=== PATIENT | female | born 1955 | race Caucasian/White ===

== ENCOUNTER 2017-01-04 14:35 | Inpatient (IN) | payer MEDICAID, OTHER ==
[~2017-01-04] VITALS: Ht 160 cm; Wt 78.9 kg
[2017-01-04] VITALS (13 sets, daily range): BP systolic 96–120; BP diastolic 75–86; PULSE 137–151; RESP 39–54; TEMP 100; Ht 160 cm; Wt 78.9 kg
[~2017-01-04 14:35] MED LIST: CLON-429; LAMO200T18; LEVE-5; PHEN100C; TOPI200T8
[2017-01-04] MEDS ORDERED: CEFEPIME 2GM/50 ML (PMX) 50 ML IVPB STA (14:42)
[2017-01-04] MEDS ORDERED: SOD CHLORIDE 0.9% 1,000 ML IV STA ×3 (14:42)
[2017-01-04] MEDS ORDERED: VANCOMYCIN 1 GM (PMX) 250 ML IVPB ONE (15:00)
[2017-01-04 15:15] LABS: ADD SCAN DIFF NO
[2017-01-04 15:33] LABS: INR 1.34; PROTIME 16.7 Sec (12.2-14.2); PT RATIO 1.3
[2017-01-04 15:34] LABS: ALBUMIN 4.1 g/dl (3.3-4.9); ALBUMIN/GLOBULIN RATIO 1.36; BILIRUBIN,INDIRECT 0.2 mg/dl (0-1.1); BILIRUBIN,TOTAL 0.2 mg/dl (0.2-1.3); TOTAL PROTEIN 7.1 g/dl (6.1-8.1)
[2017-01-04 15:40] LABS: ADD UMIC YES; UR ASCORBIC ACID NEGATIVE (NEGATIVE); UR BACTERIA MODERATE /HPF (NONE SEEN); UR BILIRUBIN (Dip) NEGATIVE (NEGATIVE); UR BLOOD (Dip) 1+ mg/dL (NEGATIVE); UR CLARITY CLOUDY (CLEAR); UR COLOR AMBER (YELLOW); UR GLUCOSE (Dip) NEGATIVE (NEGATIVE); UR KETONES (Dip) NEGATIVE (NEGATIVE); UR LEUKOCYTE ESTERASE (Dip) 1+ Leu/ul (NEGATIVE); UR MUCUS FEW /HPF (NONE SEEN); UR NITRITE (Dip) NEGATIVE (NEGATIVE); UR RBC 1 /HPF (0-5); UR SPECIFIC GRAVITY (Dip) 1.016 (1.003-1.030); UR SQUAMOUS EPITHELIAL CELL MANY /HPF (FEW); UR TOTAL PROTEIN (Dip) 2+ mg/dl (NEGATIVE); UR UROBILINOGEN (Dip) 1+ mg/dL (NEGATIVE)
[2017-01-04 15:53] LABS: CALCIUM 6.9 mg/dl (8.4-10.2); CREATININE 1.85 mg/dl (0.44-1.00); POTASSIUM 3.2 mmol/L (3.5-5.1)
[2017-01-04 15:54] LABS: TROPONIN-I 0.017 ng/ml (0.00-0.12)
[2017-01-04] MEDS ORDERED: PHEN64.8 PO (15:56)
[2017-01-04] MEDS ORDERED: LEVE10006 PO (15:57)
[2017-01-04] MEDS ORDERED: TOPI200C PO (15:57)
[2017-01-04] MEDS ORDERED: PHEN125O2 PO (15:58)
[2017-01-04] MEDS ORDERED: AMO500 PO (15:58)
[2017-01-04] MEDS ORDERED: CLON0.5T4 PO (15:58)
[2017-01-04] MEDS ORDERED: ACETAMINOPHEN 650 MG SUPP PR ONE (16:00)
[2017-01-04] MEDS ORDERED: NORepinephrine 8MG/250 ML (PMX 250 ML IV SCH (16:00)
--- NOTE | 2017-01-04 16:27 | RADRPT ---
PROCEDURE: XR Chest. CLINICAL INDICATION: chest pain TECHNIQUE: Single frontal view of the chest was obtained COMPARISON: 01/13/09 FINDINGS: The heart and mediastinum are within normal limits. There is a generator overlying the left chest with its wire extending towards the left neck. The lungs are clear. There is no pleural effusion or pneumothorax. RPTAT: AA IMPRESSION: No acute disease. .Robles Piedra MD, MD Date Time Electronically viewed and signed by .Robles Piedra MD, on 01/04/2017 16:27 .S/
[2017-01-04 16:28] LABS: HEMATOCRIT 41.8 % (37.0-47.0); HEMOGLOBIN 13.4 g/dl (12.0-16.0); MEAN CORPUSCULAR HEMOGLOBIN 30.4 pg (29.0-33.0); MEAN CORPUSCULAR HGB CONC 32.1 g/dl (32.0-37.0); MEAN CORPUSCULAR VOLUME 94.8 fl (82.0-101.0); MEAN PLATELET VOLUME 9.4 fl (7.4-10.4); PLATELET COUNT 484 10^3/UL (140-415); RED BLOOD COUNT 4.41 10^6/ul (4.20-5.40); RED CELL DISTRIBUTION WIDTH 14.8 % (11.5-14.5)
--- NOTE | 2017-01-04 17:52 | RADRPT ---
PROCEDURE: CT Brain without. CLINICAL INDICATION: Altered mental status TECHNIQUE: A CT of the brain was performed on a multi-slice CT scanner utilizing axial sections fr om the skull base through the vertex without contrast. Coronal and sagittal reconstructed images w ere provided. One or more of the following does reduction techniques were used: Automated exposure control; adjustment of the mA and/or kV according to patient size; use of the aorta of reconstructi on technique. Images were reviewed on a high-resolution PACS workstation. The exam CTDI = 42.69 mGy . The exam DLP = 720.23 mGy-cm. COMPARISON: CT brain 01/11/2009 FINDINGS: There is mild global volume loss. The ventricles and sulci are symmetric in size and morphology. T here is no evidence of intracranial hemorrhage, mass effect, edema or midline shift. No abnormal in tra-axial or extra-axial fluid collections are seen. The aiken/white matter differentiation is well preserved. The osseous structures and visualized sinuses are unremarkable. The mastoid air cells are clear. Th e surrounding soft tissue scalp and bony calvarium are intact and normal. IMPRESSION: 1. No CT evidence of acute intracranial pathology. 2. Mild global volume loss. RPTAT: AA .Jone Castillo MD, MD Date Time Electronically viewed and signed by .Jone Castillo MD, MD on 01/04/2017 17:51 .B/
--- NOTE | 2017-01-04 18:00 | RADRPT ---
PROCEDURE: CT Abdomen and Pelvis without contrast. CLINICAL INDICATION: Abdominal pain TECHNIQUE: CT scan of the abdomen and pelvis without contrast was performed on a multi-slice CT [facility] without intravenous contrast. Coronal and sagittal reformatted images were obtained from the axial source images. Images were reviewed on a high-resolution PACS workstation. One or more of the following does reduction techniques were used: Automated exposure control; adjustment of the mA an d/or kV according to patient size; use of the aorta of reconstruction technique. The total exam CTD I equals 17.4 mGy and the total exam DLP equals 977.79 mGy-cm. COMPARISON: None available. FINDINGS: Breathing artifact limits evaluation of the lung bases. There are trace right and small left pleura l effusions with adjacent atelectasis. Heart size is normal, and there is no evidence of pericardia l thickening or effusion. There is moderate intrahepatic ductal dilatation and marked extrahepatic ductal dilatation. The com mon bile duct measures up to 2.1 cm in diameter. Evaluation at the level of the insertion of the du ct is limited by artifact. No radiopaque stone is identified. The pancreas is prominent as there i s moderate peripancreatic edema extending into the left flank or there is fluid tracking in the left pericolic gutter. There is a small amount of perihepatic free fluid.. The gallbladder is contract ed and collapsed. The adrenal glands are normal. The kidneys without renal calculus or hydronephrosis. The aorta is of normal caliber. Atherosclerotic calcifications are present. There is no retroperito grant lymph node enlargment. There is no evidence of large or small bowel obstruction there are mildly dilated segments of small bowel in the left upper quadrant most likely represent focal ileus related to adjacent pancreatitis. There is mild free fluid throughout the abdomen pelvis. Inflammatory changes appear to be center ed around the pancreas, however due to and inferiorly, though are most consistent with pancreatitis. A normal appendix is identified The uterus is present. No enlarged pelvic sidewall lymph nodes are seen. The bladder is decompresse d and contains a Matias catheter. There is mild pelvic free fluid. The inguinal regions are unremar kable. There are mild to moderate degenerative change of the spine.. IMPRESSION: 1. Prominent pancreas with marked peripancreatic inflammatory changes and associated free fluid tra cking into the left pericolic gutter into the pelvis. Findings are most consistent with acute pancr eatitis, and correlation with laboratory values is recommended. A duodenitis could also potentially have this appearance, but is felt to be far less likely. 2. Moderate intrahepatic ductal dilatation and marked extrahepatic ductal dilatation to the level o f the distal common bile duct. No radiopaque gallstone is identified. Recommend MRCP versus ERCP a s clinically indicated. 3. Trace right and small left pleural effusions with adjacent atelectasis. 4. Mild focally dilated segment of small bowel in the left upper quadrant is most consistent with v brielle focal ileus related to adjacent pancreatitis. 5. Atherosclerotic vascular disease. RPTAT: AA .Jone Castillo MD, MD Date Time Electronically viewed and signed by .Jone Castillo MD, on 01/04/2017 18:00 .B/
[2017-01-04] MEDS ORDERED: SOD CHLORIDE 0.9% 1,000 ML IV SCH (19:06)
[2017-01-04 19:07] LABS: AADO2 Arterial 386.9 mmHg (7.0-24.0); Allen Test ACCEPTAB; Arterial Base Excess -15.2 mmol/L (-3.0-3); Arterial COHb 0.2 % (0.0-3.0); Arterial Fraction of Oxyhgb 98.9 % (93.0-99.0); Arterial HCO3 9.9 mmol/L (22.0-26.0); Arterial MetHb 0.4 % (0.0-1.5); Arterial Total Hemglobin 15.6 g/dl (12.0-18.0); MODE MASK - NRB
--- NOTE | 2017-01-04 19:17 | ERA ---
ER Documentation Chief Complaint Date/Time DATE: 01/04/17 TIME: 19:16 Chief Complaint PT BIB RA for Altered X 1 day. HPI 61-year-old female with history only positive for epilepsy is brought in for altered mental status. Is able to answer only some questions. She arrived in the emergency room hypotensive, tachycardic, tachypneic. She was immediately placed on BiPAP and was able to say that she has pain in her abdomen. Otherwise she is very confused and not able to provide much of a history ROS Unobtainable. Medications Home Meds Reported Medications Clonazepam* (Clonazepam*) 0.5 Mg Tablet, 0.5 MG PO Q8H for ANXIETY, TAB 01/04/17 Phenytoin* (Phenytoin*) 125 Mg/5 Ml Oral.susp, 100 MG PO TID for 30 Days, BOTTLE 01/04/17 Amoxicillin* (Amoxicillin*) 500 Mg Cap, 500 MG PO Q8, #30 CAP 01/04/17 Levetiracetam* (Levetiracetam*) 1,000 Mg Tablet, 1000 MG PO BID, TAB 01/04/17 Topiramate* (Trokendi XR*) 200 Mg Cap.er.24h, 200 MG PO BID, CAP 01/04/17 Phenobarbital* (Phenobarbital*) 64.8 Mg Tablet, 64.8 MG PO BID, TAB 01/04/17 Discontinued Reported Medications Clonazepam* (Klonopin*) 0.5 Mg Tab 05/07/10 Phenytoin* Sodium Extended (Dilantin*) 100 Mg Capsule 05/07/10 Topiramate (Topamax) 200 Mg Tablet 05/07/10 Levetiracetam* (Keppra*) 500 Mg Tablet 05/07/10 Lamotrigine* (Lamictal*) 200 Mg Tablet 05/07/10 Allergies Allergies: Coded Allergies: No Known Allergy (Verified , 01/04/17) PMhx/Soc Anesthesia Reaction: No Hx Neurological Disorder: No (HX OF SEIZURES) Hx Respiratory Disorders: No Hx Psychiatric Problems: No Hx Miscellaneous Medical Probl: No Hx Alcohol Use: No Hx Substance Use: No Hx Tobacco Use: No Smoking Status: Never smoker Physical Exam Vitals Vital Signs Date Time Temp Pulse Resp B/P Pulse Ox O2 Delivery O2 Flow Rate FiO2 01/04/17 19:47 100.0 142 16 98/73 100 Nasal Cannula 4.0 01/04/17 19:30 140 16 94/75 100 Nasal Cannula 4.0 01/04/17 18:58 139 16 98/62 99 Non Rebreather 10.0 01/04/17 18:29 131 16 108/79 100 Non Rebreather 15.0 01/04/17 17:45 136 24 99/75 100 Room Air 01/04/17 17:30 135 30 95/59 100 Room Air 01/04/17 17:15 139 23 88/64 100 Room Air 01/04/17 17:05 112 100 01/04/17 17:00 137 29 82/63 100 Room Air 01/04/17 16:30 132 31 104/62 100 Room Air 01/04/17 16:13 132 28 119/73 100 BIPAP 01/04/17 15:53 139 33 98/63 BIPAP 01/04/17 15:44 102.1 144 40 83/52 BIPAP 01/04/17 15:26 151 01/04/17 15:14 150 100 01/04/17 14:40 98.7 150 34 62/40 01/04/17 14:35 Non Rebreather 15 Physical Exam Const: [] Severe distress, appears very uncomfortable, tachypneic, difficulty forming words Head: Atraumatic Eyes: Normal Conjunctiva, EOMI, PRL ENT: Normal External Ears, Nose and Mouth. Neck: Full range of motion..~ No meningismus. Resp: Clear to auscultation bilaterally, tachypnea, accessory muscle use Cardio: Regular tachycardia, no murmurs Abd: Soft, some apparent epigastric tenderness without guarding, non distended. Normal bowel sounds Skin: No petechiae or rashes Back: No midline or flank tenderness Ext: No cyanosis, or edema Neur: Awake and alert and oriented, unable to assess for orientation questions as patient is in respiratory distress, unable to perform full neurological exam the patient is definitely moving all 4 extremities with purposeful movements Psych: Anxious Result Diagram: 01/04/17 1600 01/04/17 1600 Results 24 hrs Laboratory Tests Test 01/04/17 14:42 01/04/17 14:50 01/04/17 15:00 01/04/17 15:15 Blood Gas Specimen Source Blood arterial Arterial Blood Date Drawn 01/04/2017 7:00:27 PM Arterial Blood pH (Temp corrected) 7.248 Arterial Blood pCO2 (Temp correct) 23.3mmhg Arterial Blood pO2 (Temp corrected) 302.8mmHG Arterial Blood HCO3 9.9mmol/L Arterial Blood Base Excess -15.2mmol/L Arterial Blood Oxygen Saturation 99.5mmHG Rashad Test ACCEPTAB Arterial Blood Gas Puncture Site Right Radial Arterial Blood Carboxyhemoglobin 0.2% Arterial Blood Methemoglobin 0.4% Blood Gas A-a O2 Differential 386.9mmHg Oxyhemoglobin Percent 98.9% Total Hemoglobin 15.6g/dl Blood Gas Temperature 37.0C Blood Gas Modality MASK - NRB FiO2 100.0% Blood Gas Critical Value Read Back Jens MCCRAY MD Blood Gas Notified Whom AMINA Blood Gas Notified Time 01/04/2017 7:07:03 PM Prothrombin Time 16.7Sec Prothrombin Time Ratio 1.3 INR International Normalized Ratio 1.34 Activated Partial Thromboplast Time 27.0Sec Lactic Acid Level 2.8mmol/L Lipase 50920L/L Urine Color HENRY Urine Clarity CLOUDY Urine pH 5.0 Urine Specific Hope 1.016 Urine Ketones NEGATIVEmg/dL Urine Nitrite NEGATIVEmg/dL Urine Bilirubin NEGATIVEmg/dL Urine Urobilinogen 1+mg/dL Urine Leukocyte Esterase 1+Radha/ul Urine Microscopic RBC 1/HPF Urine Microscopic WBC 2/HPF Urine Squamous Epithelial Cells MANY/HPF Urine Bacteria MODERATE/HPF Urine Hyaline Casts FEW/HPF Urine Mucus FEW/HPF Urine Hemoglobin 1+mg/dL Urine Glucose NEGATIVEmg/dL Urine Total Protein 2+mg/dl Test 01/04/17 16:00 01/04/17 17:59 White Blood Count 21.010^3/ul Red Blood Count 4.4110^6/ul Hemoglobin 13.4g/dl Hematocrit 41.8% Mean Corpuscular Volume 94.8fl Mean Corpuscular Hemoglobin 30.4pg Mean Corpuscular Hemoglobin Concent 32.1g/dl Red Cell Distribution Width 14.8% Platelet Count 54959^3/UL Mean Platelet Volume 9.4fl Neutrophils % % Eosinophils % % Neutrophils # 10^3/ul Eosinophils # 10^3/ul Sodium Level 147mmol/L Potassium Level 3.2mmol/L Chloride Level 113mmol/L Carbon Dioxide Level 11mmol/L Anion Gap 26 Blood Urea Nitrogen 17mg/dl Creatinine 1.85mg/dl Glucose Level 147mg/dl Lactic Acid Level 5.9mmol/L 2.2mmol/L Calcium Level 6.9mg/dl Total Bilirubin 0.2mg/dl Direct Bilirubin 0.00mg/dl Indirect Bilirubin 0.2mg/dl Aspartate Amino Transf (AST/SGOT) 270IU/L Alanine Aminotransferase (ALT/SGPT) 172IU/L Alkaline Phosphatase 233IU/L Troponin I 0.017ng/ml Total Protein 7.1g/dl Albumin 4.1g/dl Globulin 3.00g/dl Albumin/Globulin Ratio 1.36 Current Medications Medications (Trade) Dose Ordered Sig/Janessa Route PRN Reason Start Time Stop Time Status Last Admin Dose Admin Cefepime HCl 50 ml @ 100 mls/hr ONCE STAT IVPB 01/04/17 14:42 01/04/17 15:11 DC 01/04/17 15:11 Vancomycin HCl 250 ml @ 125 mls/hr ONCE ONCE IVPB 01/04/17 15:00 01/04/17 16:59 DC 01/04/17 15:54 Sodium Chloride 1,000 ml @ 1,000 mls/hr Q1H STAT IV 01/04/17 14:42 01/04/17 15:41 DC 01/04/17 15:55 Sodium Chloride 1,000 ml @ 1,000 mls/hr Q1H STAT IV 01/04/17 14:42 01/04/17 15:41 DC 01/04/17 16:01 Sodium Chloride (NS) 1,000 ml @ 1,000 mls/hr Q1H STAT IV 01/04/17 14:42 01/04/17 15:41 DC 01/04/17 16:05 Acetaminophen 650 mg 650 mg ONCE ONCE HI 01/04/17 16:00 01/04/17 16:01 DC 01/04/17 16:01 Norepinephrine (Levophed) 250 ml @ 1.875 mls/ hr TITRATE IV 01/04/17 16:00 01/04/17 17:13 IV Flush (NS 3 ml) 3 ml PER PROTOCOL IV 01/04/17 19:30 Ondansetron HCl (Zofran Inj) 4 mg Q6H PRN IV NAUSEA AND/OR VOMITING 01/04/17 19:30 Acetaminophen (Tylenol Tab) 650 mg Q6H PRN PO PAIN LEVEL 1-3 OR FEVER 01/04/17 19:30 Acetaminophen/ Hydrocodone Bitart (Burt (5/325)) 1 tab Q6H PRN PO MODERATE PAIN LEVEL 4-6 01/04/17 19:30 Morphine Sulfate (morphine) 2 mg Q4H PRN IV SEVERE PAIN LEVEL 7-10 01/04/17 19:30 Docusate Sodium (Colace) 100 mg Q12H PRN PO CONSTIPATION 01/04/17 19:30 Magnesium Hydroxide (Milk Of Mag) 30 ml DAILY PRN PO CONSTIPATION 01/04/17 19:30 Sodium Biphosphate/ Sodium Phosphate (Fleet Enema) 133 ml DAILY PRN HI CONSTIPATION 01/04/17 19:30 Heparin Sodium (Porcine) (Heparin (5000 Units/0.5 ml)) 5,000 unit Q12 SC 01/04/17 21:00 Lorazepam 0.5 mg 0.5 mg Q6H PRN IV ANXIETY 01/04/17 19:30 Sodium Chloride (NS) 1,000 ml @ 100 mls/hr Q10H IV 01/04/17 19:06 Albuterol/ Ipratropium 3 ml 3 ml Q4H RESP THERAPY PRN HHN SHORTNESS OF BREATH 01/04/17 19:30 Piperacillin Sod/ Tazobactam Sod (Zosyn 3.375gm/ 100 ml (Pmx)) 100 ml @ 200 mls/hr Q8 IVPB 01/04/17 22:00 Hydralazine HCl (Apresoline) 10 mg Q6H PRN IV ELEVATED BLOOD PRESSURE 01/04/17 19:30 Nitroglycerin (Nitroglycerin (Sl Tab) 0.4 Mg) 1 tab Q5M PRN SL ANGINA 01/04/17 19:30 Insulin Aspart (Novolog Insulin Pen) NOVOLOG *MILD* ALGORI... Q4 SC 01/04/17 21:00 Miscellaneous Information (* Miscellaneous Pharmacy Order) HYPOGLYCEMIA PROTOCOL w... ONCE ONCE XX 01/04/17 19:30 01/04/17 19:31 DC Miscellaneous Information (* Miscellaneous Pharmacy Order) Discontinue Glyburide, Glipizide,... ONCE ONCE XX 01/04/17 19:30 01/04/17 19:31 DC Miscellaneous Information (* Miscellaneous Pharmacy Order) Discontinue all previ... ONCE ONCE XX 01/04/17 19:30 01/04/17 19:31 DC Levetiracetam (Keppra) 1,000 mg BID PO 01/04/17 21:00 Phenobarbital (Luminal) 64.8 mg BID PO 01/04/17 21:00 Phenytoin (Dilantin Susp (Ped)) 100 mg TID PO 01/04/17 21:00 Miscellaneous Information 200 mg BID PO 01/04/17 21:00 UNV Miscellaneous Information 1 ea NOTE XX 01/04/17 19:30 Glucose (Glutose) 15 gm Q15M PRN PO DECREASED GLUCOSE 01/04/17 19:30 Glucose (Glutose) 22.5 gm Q15M PRN PO DECREASED GLUCOSE 01/04/17 19:30 Dextrose (D50w Syringe) 25 ml Q15M PRN IV DECREASED GLUCOSE 01/04/17 19:30 Dextrose (D50w Syringe) 50 ml Q15M PRN IV DECREASED GLUCOSE 01/04/17 19:30 Glucagon (Glucagen) 1 mg Q15M PRN IM DECREASED GLUCOSE 01/04/17 19:30 Glucose 15 gm 15 gm Q15M PRN BUCCAL DECREASED GLUCOSE 01/04/17 19:30 Sodium Chloride (NS) 1,000 ml @ 1,000 mls/hr Q1H ONCE IV 01/04/17 19:30 01/04/17 20:29 01/04/17 20:05 Procedures/MDM Septic shock secondary to urinary tract infection as well as acute pancreatitis. There is a placed ultrasound-guided peripheral IV for proper fluid resuscitation and then a central line for hypotension and sepsis. Patient was hydrated with 3 L of IV fluid initially and remained hypotensive. Levophed was started which did stabilize the patient's blood pressure. Fourth liter of IV fluid was given the patient was found to have pancreatitis. No signs of fluid overload so far. Patient initially been given vancomycin and cefepime empirically. I did speak with secondary connector armature, Dr. Christopher who is covering for Dr. Holland. There is a of the patient's CT findings and lab findings. He agrees to see the patient on consult. Spoke with Dr. Reina regarding admission. She is being admitted to the ICU for further management of her fragile condition. EKG interpretation: Sinus tachycardia rate of 154, normal axis, no definite ST or T-wave changes concerning for acute ischemia, prolonged QTC of 522. concrete gun operator interpretation: Sinus tachycardia improved with IV fluid administration. No other arrhythmias Chest x-ray interpretation: I see no acute process, no widened mediastinum, no pneumothorax, no pulmonary edema, no fractures CT abdomen pelvis interpretation: Acute pancreatitis with significant fat stranding adjacent to the duodenum which may have a ileus. I see no obstruction , no free air, no fractures CT head interpretation: I see no acute process, no hemorrhage, no mass-effect no midline shift no acute stroke, no skull fractures Perfusion Reassessment for Septic Shock: Temp 100.1, Pulse 136], RR [27, BP [112/70 Heart Exam: [Tachycardic] Lung Exam: [No Crackles] Capillary Refill: [Approximately 1 second] Peripheral Pulses: [Radially present] Skin: [pale] Critical care time 58 minutes: This includes treatment of septic shock and acute pancreatitis, very careful fluid administration,. Antibiotic coverage, use of noninvasive positive pressure ventilation, consideration of intubation, chart reviewed, discussion with GI specialist as well as admitting doctor, treatment of unstable vital signs, multiple visits the patient's bedside to assess status. This does not include any billable procedures. Ultrasound-guided IV placement note: Staff was unable to obtain IV access of patient in septic shock, rapid resuscitation reasons I placed a peripheral IV under ultrasound guidance. Right upper arm was cleaned with alcohol and 18- gauge extended Angiocath was introduced into the basilic vein under ultrasound guidance. Good blood flow, laboratories obtained from this report. Flushed well. Patient taught the procedure with no complications Central line note, right femoral vein: Sterile technique, mass gown and Gloves mask drapes chlorhexidine used. Ultrasound guidance was used to easily introduce a 7 Vietnamese triple-lumen central line using Seldinger technique after anesthesia with 2 cc of lidocaine. Good blood flow ports all ports flushed well. Patient taught the procedure with no complications. Departure Diagnosis: Primary Impression: Septic shock Additional Impressions: UTI (urinary tract infection) Acute pancreatitis Acute kidney injury Metabolic acidosis Metabolic encephalopathy Condition: Critical SHAZIATERESACHRISTIANOAGATHA DOMINGUEZ Jan 04, 2017 19:17
[2017-01-04] MEDS ORDERED: NACL 0.9% 3 ML SYG IV SCH (19:30)
[2017-01-04] MEDS ORDERED: NA PHOSPHATE/BIPHOS 133 ML ENEMA PR PRN (19:30)
[2017-01-04] MEDS ORDERED: NITROGLYCERIN (SL) 0.4 MG TAB SL PRN (19:30)
[2017-01-04] MEDS ORDERED: DEXTROSE 50% 50 ML SYRINGE IV PRN (19:30)
[2017-01-04] MEDS ORDERED: ONDANSETRON 4 MG INJ IV PRN (19:30)
[2017-01-04] MEDS ORDERED: ACETAMINOPHEN 325 MG TAB PO PRN (19:30)
[2017-01-04] MEDS ORDERED: DOCUSATE SODIUM 100 MG CAP PO PRN (19:30)
[2017-01-04] MEDS ORDERED: hydrALAzine 20 MG INJ IV PRN (19:30)
[2017-01-04] MEDS ORDERED: ALBUTEROL/IPRATROPIUM (NEB) 3 ML AMP HHN PRN (19:30)
[2017-01-04] MEDS ORDERED: HYDROCODONE/APAP (5/325) TAB PO PRN (19:30)
[2017-01-04] MEDS ORDERED: GLUCOSE GEL 15 GRAM TUBE BUCCAL PRN (19:30)
[2017-01-04] MEDS ORDERED: SOD CHLORIDE 0.9% 1,000 ML IV ONE (19:30)
[2017-01-04] MEDS ORDERED: MAGNESIUM HYDROXIDE 30ML CUP PO PRN (19:30)
[2017-01-04] MEDS ORDERED: GLUCOSE GEL 15 GRAM TUBE PO PRN ×2 (19:30)
[2017-01-04] MEDS ORDERED: GLUCAGON 1 MG INJ IM PRN (19:30)
[2017-01-04 20:17] LABS: LYMPHOCYTES # 0.6 10^3/ul (0.8-2.9); MONOCYTE # 0.8 10^3/ul (0.3-0.9); NEUTROPHIL # 14.1 10^3/ul (1.6-7.5)
[2017-01-04] MEDS ORDERED: PHENOBARBITAL 32.4 MG TAB PO SCH (21:00)
[2017-01-04] MEDS: INSULIN ASPART [NOVOLOG] 3 ML PEN SC SCH (21:00)
[2017-01-04] MEDS ORDERED: PHENYTOIN (25 MG/ML PO SYG) PO SCH (21:00)
[2017-01-04] MEDS ORDERED: LEVETIRACETAM 500 MG TAB PO SCH (21:00)
--- NOTE | 2017-01-04 21:00 | RADRPT ---
PROCEDURE: Right upper quadrant abdominal ultrasound. CLINICAL INDICATION: Abdominal pain TECHNIQUE: Hicks scale and color doppler ultrasound images of the right upper quadrant. COMPARISON: CT abdomen pelvis 01/04/2017 FINDINGS: Pancreas: Visualized portions appear of normal echogenicity, no focal lesions. Liver: Morphology: Mildly enlarged measuring 17.2 cm. Echogenicity: Normal. Focal lesions: None. Main portal vein: Patent with hepatopetal flow. Biliary System: Normal appearing gallbladder wall. No gallstones seen. Mild intrahepatic biliary dilatation. Common bile duct measures 18.0 mm in maximal dimension. Kidneys: Right 10.1 cm in length. Right renal cortical thickness is preserved. Normal echogenicity. No hydronephrosis. No renal calculi. No focal lesions. No free fluid identified. IMPRESSION: Normal gallbladder without gallstones. Mild intrahepatic and severe extrahepatic biliary dilatation with diameter of the common bile duct m easuring approximately 18 mm. MRCP suggested for further evaluation. RPTAT: AADD .Riccardo Tian MD, MD Date Time Electronically viewed and signed by .Riccardo Tian MD, on 01/04/2017 21:00 .B/
[2017-01-04] MEDS ORDERED: PHENYTOIN (100 MG/4 ML) CUP PO SCH (21:50)
[2017-01-04] MEDS: PIPER-TAZO 3.375 GM IV (PMX) 100 ML IVPB SCH (22:27)
[2017-01-04 22:34] LABS: INR 1.45; PROTIME 17.7 Sec (12.2-14.2); PT RATIO 1.4
[2017-01-04 22:35] LABS: PARTIAL THROMBOPLASTIN TIME 34.4 Sec (25.0-35.0)
[2017-01-04] MEDS: HEPARIN 5,000 UNIT/0.5 ML VIAL SC SCH (22:39)
[2017-01-04] MEDS ORDERED: clonAZEPAM 0.5 MG TAB PO SCH (23:00)
[2017-01-04] MEDS ORDERED: CALCIUM GLUCONATE 10% 1 GM in SOD CHLORIDE 0.9% 100 ML IVPB ONE (23:00)
[2017-01-04] MEDS ORDERED: POTASSIUM CHLORIDE 250 ML IVPB ONE (23:00)
--- NOTE | 2017-01-04 23:02 | HP ---
Date/Time of Note Date/Time of Note DATE: 01/04/17 TIME: 22:43 Assessment/Plan VTE Prophylaxis VTE Prophylaxis Intervention: SCD's Assessment/Plan Assessment/Plan 61 yo F acutely ill with abd pain now managed as follows: 1. Severe Pancreatitis associated with biliary ductal dilation without gallstones 2. Severe systemic inflammatory response syndrome secondary to #1 with lactic acidosis and systemic shock 3. Adjacent focal small bowel ileus associated with #1 4. Previous seizure disorder on multiple medications 5. Probable UTI 6. Multiple electrolyte abnormalities including hypokalemia, hypocalcemia, metabolic acidosis 7. Acute transaminitis likely secondary to #1 8. LEONOR r/o CKD PLAN: Admit / aggressive IVF hydration / NPO / Urgent MRCP / GI consult / PRN pain control/ antiemetics/ antipyretics/ supportive care Seizure precautions / home meds Empiric abx / Urine cultures / replace lytes / serial labs Further evaluation and treatment will be based on clinical course Full discussion with care team done. All questions Answered HPI/ROS Admit Date/Time Admit Date/Time Jan 04, 2017 at 19:10 Hx of Present Illness PRESENTING COMPLAINT: abd pain HISTORY OF PRESENTING COMPLAINT: 61-year-old [place]yanese speaking only lady who was brought to the emergency room via EMS because of abdominal pain. I am unable to get further history from the patient partly because of her pain and partly because she is somewhat confused. She is able to tell me she has had pain, and she says it has been going on for a long time but she does not see exactly how long. She does not respond to questions about character of the pain or associated symptoms. She did tell me though that she lives with her brother, it is unclear what the actual home situation is. Review of her chart shows that she has a history of seizure disorder only as presently normal. Preliminary emergency room report is consistent with a severe pancreatitis which likely explains her severe inflammatory response syndrome and severe abdominal pain. She is being admitted for further management. ROS 12 point review if systems was done and pertinent findings are as noted. PMH/Family/Social Past Medical History * Seizure d/o Past Surgical History Past Surgical Hx: other (Skin grafts) Family History Significant Family History: other (unknown) Social History Alcohol Use: none Smoking Status: Never smoker Exam/Review of Systems Vital Signs Vitals VS - Last 72 Hours, by Label Date Time Temp Pulse Resp B/P Pulse Ox O2 Delivery O2 Flow Rate FiO2 01/04/17 20:26 136 16 102/76 100 Nasal Cannula 4.0 01/04/17 19:47 100.0 142 16 98/73 100 Nasal Cannula 4.0 01/04/17 19:30 140 16 94/75 100 Nasal Cannula 4.0 01/04/17 18:58 139 16 98/62 99 Non Rebreather 10.0 01/04/17 18:29 131 16 108/79 100 Non Rebreather 15.0 01/04/17 17:45 136 24 99/75 100 Room Air 01/04/17 17:30 135 30 95/59 100 Room Air 01/04/17 17:15 139 23 88/64 100 Room Air 01/04/17 17:05 112 100 01/04/17 17:00 137 29 82/63 100 Room Air 01/04/17 16:30 132 31 104/62 100 Room Air 01/04/17 16:13 132 28 119/73 100 BIPAP 01/04/17 15:53 139 33 98/63 BIPAP 01/04/17 15:44 102.1 144 40 83/52 BIPAP 01/04/17 15:26 151 01/04/17 15:14 150 100 01/04/17 14:40 98.7 150 34 62/40 01/04/17 14:35 Non Rebreather 15 Vital Signs Date Time Temp Pulse Resp B/P Pulse Ox O2 Delivery O2 Flow Rate FiO2 01/04/17 20:26 136 16 102/76 100 Nasal Cannula 4.0 01/04/17 19:47 100.0 01/04/17 17:05 100 Exam Constitutional: distress (pain?), other (acutely ill looking, uncomfortable) Psych: No nl mood/affect ENMT: No mucosa pink and moist Respiratory: clear to auscultation, diminished breath sounds Cardiovascular: No regular rate and rhythm (tachycardia) Gastrointestinal: distended, soft, tender (diffusely carla epigastric), No bowel sounds Extremities: No edema Neurological: lethargic Labs Result Diagram: 01/04/17 1600 01/04/17 1600 Medications Medications Current Medications Norepinephrine (Levophed) 250 ml @ 1.875 mls/ hr TITRATE IV Last administered on 01/04/17t 17:13; Admin Dose 3.75 MLS/HR; Start 01/04/17 at 16:00 Ondansetron HCl (Zofran Inj) 4 mg Q6H PRN IV NAUSEA AND/OR VOMITING; Start 01/04 at 19:30 Acetaminophen (Tylenol Tab) 650 mg Q6H PRN PO PAIN LEVEL 1-3 OR FEVER; Start at 19:30 Acetaminophen/ Hydrocodone Bitart ([place] (5/325)) 1 tab Q6H PRN PO MODERATE PAIN LEVEL 4-6; Start 01/04/17 at 19:30 Morphine Sulfate (morphine) 2 mg Q4H PRN IV SEVERE PAIN LEVEL 7-10; Start at 19:30 Docusate Sodium (Colace) 100 mg Q12H PRN PO CONSTIPATION; Start 01/04/17 at 19: 30 Magnesium Hydroxide (Milk Of Mag) 30 ml DAILY PRN PO CONSTIPATION; Start at 19:30 Sodium Biphosphate/ Sodium Phosphate (Fleet Enema) 133 ml DAILY PRN VT CONSTIPATION; Start 01/04/17 at 19:30 Heparin Sodium (Porcine) (Heparin (5000 Units/0.5 ml)) 5,000 unit Q12 SC Last administered on 01/04/17 22:39; Admin Dose 5,000 UNIT; Start 01/04/17 at 21:00 Lorazepam 0.5 mg 0.5 mg Q6H PRN IV ANXIETY; Start 01/04/17 at 19:30 Sodium Chloride 1,000 ml @ 100 mls/hr Q10H IV Last administered on 01/04/17 22 :08; Admin Dose 100 MLS/HR; Start 01/04/17 at 19:06 Piperacillin Sod/ Tazobactam Sod (Zosyn 3.375gm/ 100 ml (Pmx)) 100 ml @ 200 mls /hr Q8 IVPB Last administered on 01/04/17 22:27; Admin Dose 200 MLS/HR; Start 01/04/17 at 22:00 Hydralazine HCl (Apresoline) 10 mg Q6H PRN IV ELEVATED BLOOD PRESSURE; Start at 19:30 Nitroglycerin (Nitroglycerin (Sl Tab) 0.4 Mg) 1 tab Q5M PRN SL ANGINA; Start at 19:30 Insulin Aspart (Novolog Insulin Pen) NOVOLOG *MILD* ALGORI... Q4 SC ; Start 01/04 at 21:00 Levetiracetam (Keppra) 1,000 mg BID PO Last administered on 01/04/17t 22:27; Admin Dose 1,000 MG; Start 01/04/17 at 21:00 Phenobarbital (Luminal) 64.8 mg BID PO ; Start 01/04/17 at 21:00 Miscellaneous Information 200 mg BID PO ; Start 01/04/17 at 21:00; Status UNV Miscellaneous Information 1 ea NOTE XX ; Start 01/04/17 at 19:30 Glucose (Glutose) 15 gm Q15M PRN PO DECREASED GLUCOSE; Start 01/04/17 at 19:30 Glucose (Glutose) 22.5 gm Q15M PRN PO DECREASED GLUCOSE; Start 01/04/17 at 19:30 Dextrose (D50w Syringe) 25 ml Q15M PRN IV DECREASED GLUCOSE; Start 01/04/17 at 19:30 Dextrose (D50w Syringe) 50 ml Q15M PRN IV DECREASED GLUCOSE; Start 01/04/17 at 19:30 Glucagon (Glucagen) 1 mg Q15M PRN IM DECREASED GLUCOSE; Start 01/04/17 at 19:30 Glucose (Glutose) 15 gm Q15M PRN BUCCAL DECREASED GLUCOSE; Start 01/04/17 at 19: 30 Phenytoin (Dilantin Susp Cup) 100 mg TID PO ; Start 01/04/17 at 21:50 Procedures Procedures Laboratory Tests Test 01/04/17 14:42 01/04/17 14:50 01/04/17 15:00 01/04/17 15:15 Blood Gas Specimen Source Blood arterial Arterial Blood Date Drawn 01/04/2017 7:00:27 PM Arterial Blood pH (Temp corrected) 7.248 Arterial Blood pCO2 (Temp correct) 23.3mmhg Arterial Blood pO2 (Temp corrected) 302.8mmHG Arterial Blood HCO3 9.9mmol/L Arterial Blood Base Excess -15.2mmol/L Arterial Blood Oxygen Saturation 99.5mmHG Rashad Test ACCEPTAB Arterial Blood Gas Puncture Site Right Radial Arterial Blood Carboxyhemoglobin 0.2% Arterial Blood Methemoglobin 0.4% Blood Gas A-a O2 Differential 386.9mmHg Oxyhemoglobin Percent 98.9% Total Hemoglobin 15.6g/dl Blood Gas Temperature 37.0C Blood Gas Modality MASK - NRB FiO2 100.0% Blood Gas Critical Value Read Back Jens MCCRAY MD Blood Gas Notified Whom AMINA Blood Gas Notified Time 01/04/2017 7:07:03 PM Prothrombin Time 16.7Sec Prothrombin Time Ratio 1.3 INR International Normalized Ratio 1.34 Activated Partial Thromboplast Time 27.0Sec Lactic Acid Level 2.8mmol/L Lipase 61712W/L Urine Color HERNY Urine Clarity CLOUDY Urine pH 5.0 Urine Specific [place] 1.016 Urine Ketones NEGATIVEmg/dL Urine Nitrite NEGATIVEmg/dL Urine Bilirubin NEGATIVEmg/dL Urine Urobilinogen 1+mg/dL Urine Leukocyte Esterase 1+Radha/ul Urine Microscopic RBC 1/HPF Urine Microscopic WBC 2/HPF Urine Squamous Epithelial Cells MANY/HPF Urine Bacteria MODERATE/HPF Urine Hyaline Casts FEW/HPF Urine Mucus FEW/HPF Urine Hemoglobin 1+mg/dL Urine Glucose NEGATIVEmg/dL Urine Total Protein 2+mg/dl Test 01/04/17 16:00 01/04/17 17:59 01/04/17 22:04 01/04/17 22:16 White Blood Count 21.010^3/ul Red Blood Count 4.4110^6/ul Hemoglobin 13.4g/dl Hematocrit 41.8% Mean Corpuscular Volume 94.8fl Mean Corpuscular Hemoglobin 30.4pg Mean Corpuscular Hemoglobin Concent 32.1g/dl Red Cell Distribution Width 14.8% Platelet Count 15978^3/UL Mean Platelet Volume 9.4fl Neutrophils % 67.0% Band Neutrophils % 25.0% Lymphocytes % 3.0% Monocytes % 4.0% Eosinophils % % Metamyelocytes % 1.0% Neutrophils # 14.110^3/ul Lymphocytes # 0.610^3/ul Monocytes # 0.810^3/ul Eosinophils # 10^3/ul Metamyelocytes # 0.2 Sodium Level 147mmol/L Potassium Level 3.2mmol/L Chloride Level 113mmol/L Carbon Dioxide Level 11mmol/L Anion Gap 26 Blood Urea Nitrogen 17mg/dl Creatinine 1.85mg/dl Glucose Level 147mg/dl Lactic Acid Level 5.9mmol/L 2.2mmol/L Calcium Level 6.9mg/dl Total Bilirubin 0.2mg/dl Direct Bilirubin 0.00mg/dl Indirect Bilirubin 0.2mg/dl Aspartate Amino Transf (AST/SGOT) 270IU/L Alanine Aminotransferase (ALT/SGPT) 172IU/L Alkaline Phosphatase 233IU/L Troponin I 0.017ng/ml Total Protein 7.1g/dl Albumin 4.1g/dl Globulin 3.00g/dl Albumin/Globulin Ratio 1.36 Prothrombin Time 17.7Sec Prothrombin Time Ratio 1.4 INR International Normalized Ratio 1.45 Activated Partial Thromboplast Time 34.4Sec Bedside Glucose 133mg/dL Current Medications Medications (Trade) Dose Ordered Sig/Janessa Route PRN Reason Start Time Stop Time Status Last Admin Dose Admin Cefepime HCl 50 ml @ 100 mls/hr ONCE STAT IVPB 01/04/17 14:42 01/04/17 15:11 DC 01/04/17 15:11 100 MLS/HR Vancomycin HCl 250 ml @ 125 mls/hr ONCE ONCE IVPB 01/04/17 15:00 01/04/17 16:59 DC 01/04/17 15:54 125 MLS/HR Sodium Chloride 1,000 ml @ 1,000 mls/hr Q1H STAT IV 01/04/17 14:42 01/04/17 15:41 DC 01/04/17 15:55 1,000 MLS/HR Sodium Chloride 1,000 ml @ 1,000 mls/hr Q1H STAT IV 01/04/17 14:42 01/04/17 15:41 DC 01/04/17 16:01 1,000 MLS/HR Sodium Chloride (NS) 1,000 ml @ 1,000 mls/hr Q1H STAT IV 01/04/17 14:42 01/04/17 15:41 DC 01/04/17 16:05 1,000 MLS/HR Acetaminophen 650 mg 650 mg ONCE ONCE VT 01/04/17 16:00 01/04/17 16:01 DC 01/04/17 16:01 650 MG Norepinephrine (Levophed) 250 ml @ 1.875 mls/ hr TITRATE IV 01/04/17 16:00 01/04/17 17:13 3.75 MLS/HR IV Flush (NS 3 ml) 3 ml PER PROTOCOL IV 01/04/17 19:30 Ondansetron HCl (Zofran Inj) 4 mg Q6H PRN IV NAUSEA AND/OR VOMITING 01/04/17 19:30 Acetaminophen (Tylenol Tab) 650 mg Q6H PRN PO PAIN LEVEL 1-3 OR FEVER 01/04/17 19:30 Acetaminophen/ Hydrocodone Bitart ([place] (5/325)) 1 tab Q6H PRN PO MODERATE PAIN LEVEL 4-6 01/04/17 19:30 Morphine Sulfate (morphine) 2 mg Q4H PRN IV SEVERE PAIN LEVEL 7-10 01/04/17 19:30 Docusate Sodium (Colace) 100 mg Q12H PRN PO CONSTIPATION 01/04/17 19:30 Magnesium Hydroxide (Milk Of Mag) 30 ml DAILY PRN PO CONSTIPATION 01/04/17 19:30 Sodium Biphosphate/ Sodium Phosphate (Fleet Enema) 133 ml DAILY PRN [place] CONSTIPATION 01/04/17 19:30 Heparin Sodium (Porcine) (Heparin (5000 Units/0.5 ml)) 5,000 unit Q12 SC 01/04/17 21:00 01/04/17 22:39 5,000 UNIT Lorazepam 0.5 mg 0.5 mg Q6H PRN IV ANXIETY 01/04/17 19:30 Sodium Chloride (NS) 1,000 ml @ 100 mls/hr Q10H IV 01/04/17 19:06 01/04/17 22:08 100 MLS/HR Albuterol/ Ipratropium 3 ml 3 ml Q4H RESP THERAPY PRN HHN SHORTNESS OF BREATH 01/04/17 19:30 Piperacillin Sod/ Tazobactam Sod (Zosyn 3.375gm/ 100 ml (Pmx)) 100 ml @ 200 mls/hr Q8 IVPB 01/04/17 22:00 01/04/17 22:27 200 MLS/HR Hydralazine HCl (Apresoline) 10 mg Q6H PRN IV ELEVATED BLOOD PRESSURE 01/04/17 19:30 Nitroglycerin (Nitroglycerin (Sl Tab) 0.4 Mg) 1 tab Q5M PRN SL ANGINA 01/04/17 19:30 Insulin Aspart (Novolog Insulin Pen) NOVOLOG *MILD* ALGORI... Q4 SC 01/04/17 21:00 Miscellaneous Information (* Miscellaneous Pharmacy Order) HYPOGLYCEMIA PROTOCOL w... ONCE ONCE XX 01/04/17 19:30 01/04/17 19:31 DC Miscellaneous Information (* Miscellaneous Pharmacy Order) Discontinue Glyburide, Glipizide,... ONCE ONCE XX 01/04/17 19:30 01/04/17 19:31 DC Miscellaneous Information (* Miscellaneous Pharmacy Order) Discontinue all previ... ONCE ONCE XX 01/04/17 19:30 01/04/17 19:31 DC Levetiracetam (Keppra) 1,000 mg BID PO 01/04/17 21:00 01/04/17 22:27 1,000 MG Phenobarbital (Luminal) 64.8 mg BID PO 01/04/17 21:00 Phenytoin (Dilantin Susp (Ped)) 100 mg TID PO 01/04/17 21:00 Cancel Miscellaneous Information 200 mg BID PO 01/04/17 21:00 UNV Miscellaneous Information 1 ea NOTE XX 01/04/17 19:30 Glucose (Glutose) 15 gm Q15M PRN PO DECREASED GLUCOSE 01/04/17 19:30 Glucose (Glutose) 22.5 gm Q15M PRN PO DECREASED GLUCOSE 01/04/17 19:30 Dextrose (D50w Syringe) 25 ml Q15M PRN IV DECREASED GLUCOSE 01/04/17 19:30 Dextrose (D50w Syringe) 50 ml Q15M PRN IV DECREASED GLUCOSE 01/04/17 19:30 Glucagon (Glucagen) 1 mg Q15M PRN IM DECREASED GLUCOSE 01/04/17 19:30 Glucose 15 gm 15 gm Q15M PRN BUCCAL DECREASED GLUCOSE 01/04/17 19:30 Sodium Chloride (NS) 1,000 ml @ 1,000 mls/hr Q1H ONCE IV 01/04/17 19:30 01/04/17 20:29 DC 01/04/17 20:05 1,000 MLS/HR Phenytoin (Dilantin Susp Cup) 100 mg TID PO 01/04/17 21:50 PROCEDURE: XR Chest. CLINICAL INDICATION: chest pain TECHNIQUE: Single frontal view of the chest was obtained COMPARISON: 01/13/09 FINDINGS: The heart and mediastinum are within normal limits. There is a generator overlying the left chest with its wire extending towards the left neck. The lungs are clear. There is no pleural effusion or pneumothorax. RPTAT: AA IMPRESSION: No acute disease. .Robles Piedra MD, MD Date Time Electronically viewed and signed by .Robles Piedra MD, MD on 01/04/2017 16: 27 .S/ CC: TORRI FISH MD PROCEDURE: CT Brain without. CLINICAL INDICATION: Altered mental status TECHNIQUE: A CT of the brain was performed on a multi-slice CT scanner utilizing axial sections from the skull base through the vertex without contrast. Coronal and sagittal reconstructed images were provided. One or more of the following does reduction techniques were used: Automated exposure control; adjustment of the mA and/or kV according to patient size; use of the aorta of reconstruction technique. Images were reviewed on a high-resolution PACS workstation. The exam CTDI = 42.69 mGy. The exam DLP = 720.23 mGy-cm. COMPARISON: CT brain 01/11/2009 FINDINGS: There is mild global volume loss. The ventricles and sulci are symmetric in size and morphology. There is no evidence of intracranial hemorrhage, mass effect, edema or midline shift. No abnormal intra-axial or extra-axial fluid collections are seen. The hicks/white matter differentiation is well preserved. The osseous structures and visualized sinuses are unremarkable. The mastoid air cells are clear. The surrounding soft tissue scalp and bony calvarium are intact and normal. IMPRESSION: 1. No CT evidence of acute intracranial pathology. 2. Mild global volume loss. RPTAT: AA .Jone Castillo MD, MD Date Time Electronically viewed and signed by .Jone Castillo MD, MD on 2016 17:51 .B/ CC: CHRISTIANO MCCRAY DO PROCEDURE: CT Abdomen and Pelvis without contrast. CLINICAL INDICATION: Abdominal pain TECHNIQUE: CT scan of the abdomen and pelvis without contrast was performed on a multi-slice CT scanner without intravenous contrast. Coronal and sagittal reformatted images were obtained from the axial source images. Images were reviewed on a high-resolution PACS workstation. One or more of the following does reduction techniques were used: Automated exposure control; adjustment of the mA and/or kV according to patient size; use of the aorta of reconstruction technique. The total exam CTDI equals 17.4 mGy and the total exam DLP equals 977.79 mGy-cm. COMPARISON: None available. FINDINGS: Breathing artifact limits evaluation of the lung bases. There are trace right and small left pleural effusions with adjacent atelectasis. Heart size is normal, and there is no evidence of pericardial thickening or effusion. There is moderate intrahepatic ductal dilatation and marked extrahepatic ductal dilatation. The common bile duct measures up to 2.1 cm in diameter. Evaluation at the level of the insertion of the duct is limited by artifact. No radiopaque stone is identified. The pancreas is prominent as there is moderate peripancreatic edema extending into the left flank or there is fluid tracking in the left pericolic gutter. There is a small amount of perihepatic free fluid.. The gallbladder is contracted and collapsed. The adrenal glands are normal. The kidneys without renal calculus or hydronephrosis. The aorta is of normal caliber. Atherosclerotic calcifications are present. There is no retroperitoneal lymph node enlargment. There is no evidence of large or small bowel obstruction there are mildly dilated segments of small bowel in the left upper quadrant most likely represent focal ileus related to adjacent pancreatitis. There is mild free fluid throughout the abdomen pelvis. Inflammatory changes appear to be centered around the pancreas, however due to and inferiorly, though are most consistent with pancreatitis. A normal appendix is identified The uterus is present. No enlarged pelvic sidewall lymph nodes are seen. The bladder is decompressed and contains a Matias catheter. There is mild pelvic free fluid. The inguinal regions are unremarkable. There are mild to moderate degenerative change of the spine.. IMPRESSION: 1. Prominent pancreas with marked peripancreatic inflammatory changes and associated free fluid tracking into the left pericolic gutter into the pelvis. Findings are most consistent with acute pancreatitis, and correlation with laboratory values is recommended. A duodenitis could also potentially have this appearance, but is felt to be far less likely. 2. Moderate intrahepatic ductal dilatation and marked extrahepatic ductal dilatation to the level of the distal common bile duct. No radiopaque gallstone is identified. Recommend MRCP versus ERCP as clinically indicated. 3. Trace right and small left pleural effusions with adjacent atelectasis. 4. Mild focally dilated segment of small bowel in the left upper quadrant is most consistent with very focal ileus related to adjacent pancreatitis. 5. Atherosclerotic vascular disease. RPTAT: AA .Jone Castillo MD, MD Date Time Electronically viewed and signed by .Jone Castillo MD, MD on 2016 18:00 .B/ CC: CHRISTIANO MCCRAY DO PROCEDURE: Right upper quadrant abdominal ultrasound. CLINICAL INDICATION: Abdominal pain TECHNIQUE: Hicks scale and color doppler ultrasound images of the right upper quadrant. COMPARISON: CT abdomen pelvis 01/04/2017 FINDINGS: Pancreas: Visualized portions appear of normal echogenicity, no focal lesions. Liver: Morphology: Mildly enlarged measuring 17.2 cm. Echogenicity: Normal. Focal lesions: None. Main portal vein: Patent with hepatopetal flow. Biliary System: Normal appearing gallbladder wall. No gallstones seen. Mild intrahepatic biliary dilatation. Common bile duct measures 18.0 mm in maximal dimension. Kidneys: Right 10.1 cm in length. Right renal cortical thickness is preserved. Normal echogenicity. No hydronephrosis. No renal calculi. No focal lesions. No free fluid identified. IMPRESSION: Normal gallbladder without gallstones. Mild intrahepatic and severe extrahepatic biliary dilatation with diameter of the common bile duct measuring approximately 18 mm. MRCP suggested for further evaluation. RPTAT: AADD .Riccardo Tian MD, MD Date Time Electronically viewed and signed by .Riccardo Tian MD, MD on 01/04/2017 21:00 .B/ CC: CHRISTIANO MCCRAY BOLATITO M. Jan 04, 2017 22:56
[2017-01-04] MEDS: morphine 2 MG INJ IV PRN (23:51)
[2017-01-05] VITALS (100 sets, daily range): BP systolic 61–112; BP diastolic 25–92; PULSE 144–166; RESP 30–51
[2017-01-05] MEDS: INSULIN ASPART [NOVOLOG] 3 ML PEN SC SCH ×6 (01:00→20:47)
[2017-01-05] MEDS ORDERED: NA BICARBONATE 8.4% 50 ML SYG IV ONE (02:14)
[2017-01-05] MEDS: SOD CHLORIDE 0.9% 1,000 ML IV SCH ×2 (02:22→06:14)
[2017-01-05] MEDS: PIPER-TAZO 3.375 GM IV (PMX) 100 ML IVPB SCH ×2 (05:11→14:31)
[2017-01-05 05:45] LABS: ADD SCAN DIFF NO
[2017-01-05 05:52] LABS: ABNORMAL IP MESSAGE 1; BASOPHILS % 0.1 % (0.0-2.0); HEMOGLOBIN 13.7 g/dl (12.0-16.0); LYMPHOCYTES # 1.2 10^3/ul (0.8-2.9); LYMPHOCYTES % 7.7 % (15.0-51.0); MEAN CORPUSCULAR HEMOGLOBIN 29.6 pg (29.0-33.0); MEAN CORPUSCULAR HGB CONC 31.9 g/dl (32.0-37.0); MEAN CORPUSCULAR VOLUME 92.9 fl (82.0-101.0); MEAN PLATELET VOLUME 9.9 fl (7.4-10.4); MONOCYTE # 0.6 10^3/ul (0.3-0.9); MONOCYTES % 3.9 % (0.0-11.0); NEUTROPHIL # 13.6 10^3/ul (1.6-7.5); NEUTROPHILS % 87.9 % (39.0-77.0); PLATELET COUNT 433 10^3/UL (140-415); RED BLOOD COUNT 4.63 10^6/ul (4.20-5.40); RED CELL DISTRIBUTION WIDTH 14.9 % (11.5-14.5); WHITE BLOOD COUNT 15.5 10^3/ul (4.8-10.8)
[2017-01-05 06:02] LABS: INR 1.61; PROTIME 19.3 Sec (12.2-14.2); PT RATIO 1.5
[2017-01-05 06:03] LABS: PARTIAL THROMBOPLASTIN TIME 35.5 Sec (25.0-35.0)
[2017-01-05 06:11] LABS: ALBUMIN 2.5 g/dl (3.3-4.9); BILIRUBIN,DIRECT 0.1 mg/dl (0.00-0.20); BILIRUBIN,TOTAL 0.1 mg/dl (0.2-1.3); TOTAL PROTEIN 4.6 g/dl (6.1-8.1)
[2017-01-05 07:12] LABS: AADO2 Arterial 161.5 mmHg (7.0-24.0); Allen Test ACCEPTAB; Arterial Base Excess -15.4 mmol/L (-3.0-3); Arterial COHb 0.2 % (0.0-3.0); Arterial Fraction of Oxyhgb 98.2 % (93.0-99.0); Arterial HCO3 9.3 mmol/L (22.0-26.0); Arterial MetHb 0.4 % (0.0-1.5); Arterial Total Hemglobin 15.5 g/dl (12.0-18.0); Blood Gas IEPAP 15/5; Blood Gas PS 10; MODE MASK - BIPAP
[2017-01-05 07:14] LABS: CHOL/HDL RATIO 2.5 RATIO
[2017-01-05] MEDS ORDERED: NA BICARBONATE 8.4% 50 ML SYG IV STA ×2 (07:32→18:06)
[2017-01-05 07:36] LABS: CALCIUM 6.4 mg/dl (8.4-10.2); CREATININE 1.73 mg/dl (0.44-1.00); MAGNESIUM 1.7 mg/dl (1.7-2.5); PHOSPHORUS 3.8 mg/dl (2.5-4.9)
[2017-01-05 07:43] LABS: THYROID STIMULATING HORMONE 0.97 MIU/L (0.465-4.680)
[2017-01-05] MEDS ORDERED: FENTAnyl 50 MCG/ML VIAL ONE (07:45)
[2017-01-05] MEDS ORDERED: SUCCINYLCHOLINE CHLORIDE 100 MG/5 ML SYG IV ONE (07:50)
[2017-01-05] MEDS ORDERED: ETOMIDATE 20 MG INJ ONE (07:50)
[2017-01-05] MEDS ORDERED: FENTAnyl 50 MCG/ML VIAL IV ONE (08:00)
--- NOTE | 2017-01-05 08:26 | EN ---
Date/Time of Note Date/Time of Note DATE: 01/05/17 TIME: 08:21 ER Progress Note Procedure: Endotracheal intubation Indication: Impending respiratory failure I was called to the intensive care unit for a patient in respiratory failure with request for intubation. The patient is a 61-year-old female who was diagnosed with pancreatitis. She has been acidotic with pH of 7.25 on 2 consecutive blood gases. Her CO2 was in the 20s. She become more tachypneic on BiPAP, currently breathing approximately 50 with low tidal volumes. The patient had clear lung sounds. She was satting 100% on BiPAP. The patient's appearance was concerning for impending respiratory failure. Consent was obtained by phone from family member for intubation. The patient's condition precluded her from giving consent. I reviewed the patient's potassium which was 3.2 yesterday. The patient was given 20 mg of etomidate and 140 mg of succinylcholine in rapid sequence. She was intubated using a MAC 4 blade by direct laryngoscopy with a 7.5 ET tube. The tube was passed after direct visualization of the vocal cords in a single attempt. It was secured at the lip at 23 cm. Placement was confirmed by auscultation of bilateral breath sounds, color change capnography, lack of gastric rash, and maintenance of 100% oxygenation on pulse oximetry. I gave a verbal order for 100 mcg of fentanyl as an IV push for initial sedation, and requested that the patient's primary physician be contacted for additional instructions. Chest x-ray was ordered, to be reviewed by the patient's primary physician. There was no immediate complication. I gave verbal orders for vent settings of rate 36, tidal volume 450, PEEP 5, FiO2 100%. I gave instruction for oxygen to be titrated down as tolerated and for a blood gas to be ordered with subsequent adjustments based upon blood gas results. CRISTIANE BENTON MD Jan 05, 2017 08:25
[2017-01-05] MEDS: MIDAZOLAM (DRIP) 50 mg/50 mL 50 ML IV SCH ×4 (08:44→18:39)
[2017-01-05] MEDS: FENTAnyl (DRIP) 1000 mcg/100mL 100 ML IV SCH ×2 (08:49→17:06)
[2017-01-05 09:18] LABS: AADO2 Arterial 229.8 mmHg (7.0-24.0); Arterial Base Excess -11.6 mmol/L (-3.0-3); Arterial COHb 0.3 % (0.0-3.0); Arterial Fraction of Oxyhgb 96.5 % (93.0-99.0); Arterial HCO3 11.6 mmol/L (22.0-26.0); Arterial MetHb 0.5 % (0.0-1.5); Arterial Total Hemglobin 15.2 g/dl (12.0-18.0); MODE VENT - AC
[2017-01-05] MEDS ORDERED: PHENYLephrine 20MG IN 250 ML 250 ML ONE (09:48)
[2017-01-05] MEDS: PHENYLephrine 20MG IN 250 ML 250 ML IV SCH ×5 (10:00→16:15)
[2017-01-05] MEDS: HEPARIN 5,000 UNIT/0.5 ML VIAL SC SCH ×2 (10:26→20:39)
--- NOTE | 2017-01-05 10:38 | CONS ---
Date/Time of Note Date/Time of Note DATE: 01/05/17 TIME: 10:34 Assessment/Plan Assessment/Plan Additional Assessment/Plan Assessment 1. Severe pancreatitis with septic shock. 2. Severe metabolic acidosis secondary to above 3. Renal insufficiency likely ATN injury 4. Hypoxemic respiratory failure secondary to above 5. History of seizure disorder Plan 1. Continue aggressive volume resuscitation 2. Continue mechanical ventilation 3. Broad-spectrum antibiotic coverage 4. Nasogastric tube to suction 5. GI and general surgery consultations 6. May require intravenous Keppra for seizure prevention 7. Pain control 8. DVT and GI prophylaxis I had a long discussion with patient's son at bedside prognosis is guarded. Continue current supportive measures Consultation Date/Type/Reason Admit Date/Time Jan 04, 2017 at 19:10 Date of Consultation: Jan 05, 2017 Type of Consultation: Pulmonary ICU Reason for Consultation Respiratory failure Hx of Present Illness 61-year-old lady with history of seizure disorder presents with several day history of increasing abdominal pain 1 day history of increasing nausea and vomiting found to have severe pancreatitis on admission with severe metabolic acidosis possible ileus. Initial imaging shows biliary dilatation in the absence of gallstones. No prior history of pancreatitis no history of alcohol abuse no new medications. No recent travel history. This morning she had worsening respiratory distress with severe metabolic acidosis requiring emergent intubation mechanical ventilation now she was hypotensive requiring multiple vasopressor support. Past medical history includes seizure disorder Currently unable to perform Psychological: No nl mood/affect Past Medical History Seizure disorder Past Surgical History Past Surgical Hx: other (Skin grafts) Social History Alcohol Use: none Smoking Status: Never smoker Exam/Review of Systems Vital Signs Vitals Vital Signs Date Time Temp Pulse Resp B/P Pulse Ox O2 Delivery O2 Flow Rate FiO2 01/05/17 10:20 50 01/05/17 08:00 158 01/05/17 07:45 36 100 01/05/17 06:00 100.1 94/71 BIPAP 01/04/17 23:15 4.0 Intake and Output 01/04/17 01/04/17 01/05/17 15:00 23:00 07:00 Intake Total 3258.75 ml 1301.86 ml Output Total 65 ml 170 ml Balance 3193.75 ml 1131.86 ml Exam PHYSICAL EXAMINATION GENERAL: Well-nourished well-developed lady intubated on mechanical ventilation appears comfortable at rest with mild sedation VITAL SIGNS: see below. HEENT: Pupils equal, round, and reactive to light. CARDIAC: S1, S2, 1/6 systolic ejection murmur CHEST: Diminished air entry bilaterally. ABDOMEN: Mildly distended. Diminished bowel sounds no guarding or rebound EXTREMITIES: No cyanosis, clubbing edema +1 NEUROLOGIC: Generalized weakness Results Chest x-ray low lung volumes Result Diagram: 01/05/17 0500 01/05/17 0500 Results 24 hrs Laboratory Tests Test 01/04/17 14:42 01/04/17 14:50 01/04/17 15:00 01/04/17 15:15 Blood Gas Specimen Source Blood arterial Arterial Blood Date Drawn 01/04/2017 7:00:27 PM Arterial Blood pH (Temp corrected) 7.248 *L Arterial Blood pCO2 (Temp correct) 23.3 L Arterial Blood pO2 (Temp corrected) 302.8 H Arterial Blood HCO3 9.9 *L Arterial Blood Base Excess -15.2 L Arterial Blood Oxygen Saturation 99.5 H Rashad Test ACCEPTAB Arterial Blood Gas Puncture Site Right Radial Arterial Blood Carboxyhemoglobin 0.2 Arterial Blood Methemoglobin 0.4 Blood Gas A-a O2 Differential 386.9 H Oxyhemoglobin Percent 98.9 Total Hemoglobin 15.6 Blood Gas Temperature 37.0 Blood Gas Modality MASK - NRB FiO2 100.0 Blood Gas Critical Value Read Back Jens MCCRAY MD Blood Gas Notified Whom AMINA Blood Gas Notified Time 01/04/2017 7:07:03 PM Prothrombin Time 16.7 H Prothrombin Time Ratio 1.3 INR International Normalized Ratio 1.34 Activated Partial Thromboplast Time 27.0 Lactic Acid Level 2.8 H Lipase 56511 H Urine Color HENRY Urine Clarity CLOUDY A Urine pH 5.0 Urine Specific [place] 1.016 Urine Ketones NEGATIVE Urine Nitrite NEGATIVE Urine Bilirubin NEGATIVE Urine Urobilinogen 1+ H Urine Leukocyte Esterase 1+ H Urine Microscopic RBC 1 Urine Microscopic WBC 2 Urine Squamous Epithelial Cells MANY A Urine Bacteria MODERATE Urine Hyaline Casts FEW A Urine Mucus FEW A Urine Hemoglobin 1+ H Urine Glucose NEGATIVE Urine Total Protein 2+ H Test 01/04/17 16:00 01/04/17 17:59 01/04/17 22:04 01/04/17 22:16 White Blood Count 21.0 H Red Blood Count 4.41 Hemoglobin 13.4 Hematocrit 41.8 Mean Corpuscular Volume 94.8 Mean Corpuscular Hemoglobin 30.4 Mean Corpuscular Hemoglobin Concent 32.1 Red Cell Distribution Width 14.8 H Platelet Count 484 H Mean Platelet Volume 9.4 Neutrophils % 67.0 Band Neutrophils % 25.0 H Lymphocytes % 3.0 L Monocytes % 4.0 Eosinophils % Metamyelocytes % 1.0 H Neutrophils # 14.1 H Lymphocytes # 0.6 L Monocytes # 0.8 Eosinophils # Metamyelocytes # 0.2 Sodium Level 147 H Potassium Level 3.2 L Chloride Level 113 H Carbon Dioxide Level 11 L Anion Gap 26 H Blood Urea Nitrogen 17 Creatinine 1.85 H Glucose Level 147 Lactic Acid Level 5.9 *H 2.2 Calcium Level 6.9 L Total Bilirubin 0.2 Direct Bilirubin 0.00 Indirect Bilirubin 0.2 Aspartate Amino Transf (AST/SGOT) 270 H Alanine Aminotransferase (ALT/SGPT) 172 H Alkaline Phosphatase 233 H Troponin I 0.017 Total Protein 7.1 Albumin 4.1 Globulin 3.00 Albumin/Globulin Ratio 1.36 Prothrombin Time 17.7 H Prothrombin Time Ratio 1.4 INR International Normalized Ratio 1.45 Activated Partial Thromboplast Time 34.4 Free Thyroxine 1.30 Bedside Glucose 133 Test 01/05/17 01:24 01/05/17 04:39 01/05/17 05:00 01/05/17 07:23 Blood Gas Specimen Source Blood arterial Blood arterial Arterial Blood Date Drawn 01/05/2017 1:35:44 AM 01/05/2017 9:10:46 AM Arterial Blood pH (Temp corrected) 7.260 *L 7.347 L Arterial Blood pCO2 (Temp correct) 21.1 L 21.6 L Arterial Blood pO2 (Temp corrected) 171.3 H 102.4 H Arterial Blood HCO3 9.3 *L 11.6 L Arterial Blood Base Excess -15.4 L -11.6 L Arterial Blood Oxygen Saturation 98.8 H 97.3 Rashad Test ACCEPTAB N/A Arterial Blood Gas Puncture Site Right Radial Right Brachial Arterial Blood Carboxyhemoglobin 0.2 0.3 Arterial Blood Methemoglobin 0.4 0.5 Blood Gas A-a O2 Differential 161.5 H 229.8 H Oxyhemoglobin Percent 98.2 96.5 Total Hemoglobin 15.5 15.2 Blood Gas Temperature 37.0 37.0 Blood Gas Respiration Rate 14.0 36.0 Blood Gas Actual Respiration Rate 41 38 Blood Gas Modality MASK - BIPAP VENT - AC FiO2 50.0 50.0 Blood Gas Pressure Support 10 Blood Gas IPAP/EPAP Ratio 15/5 Blood Gas Critical Value Read Back Juan CASTRO R.N. Blood Gas Notified Whom AURELIA ZEPEDA Blood Gas Notified Time 01/05/2017 1:47:10 AM 01/05/2017 9:18:23 AM Bedside Glucose 100 White Blood Count 15.5 #H Red Blood Count 4.63 Hemoglobin 13.7 Hematocrit 43.0 Mean Corpuscular Volume 92.9 Mean Corpuscular Hemoglobin 29.6 Mean Corpuscular Hemoglobin Concent 31.9 L Red Cell Distribution Width 14.9 H Platelet Count 433 H Mean Platelet Volume 9.9 Neutrophils % 87.9 H Lymphocytes % 7.7 L Monocytes % 3.9 Eosinophils % 0.0 Basophils % 0.1 Nucleated Red Blood Cells % 0.0 Neutrophils # 13.6 H Lymphocytes # 1.2 Monocytes # 0.6 Eosinophils # 0.0 Basophils # 0.0 Nucleated Red Blood Cells # 0.0 Prothrombin Time 19.3 H Prothrombin Time Ratio 1.5 INR International Normalized Ratio 1.61 Activated Partial Thromboplast Time 35.5 H Sodium Level 142 Potassium Level 5.0 Chloride Level 115 H Carbon Dioxide Level 12 L Anion Gap 20 H Blood Urea Nitrogen 26 H Creatinine 1.73 H Glucose Level 254 #H Hemoglobin A1c 5.0 Lactic Acid Level 3.1 H Calcium Level 6.4 L Phosphorus Level 3.8 Magnesium Level 1.7 Total Bilirubin 0.1 L Direct Bilirubin 0.10 Indirect Bilirubin 0.0 Aspartate Amino Transf (AST/SGOT) 100 H Alanine Aminotransferase (ALT/SGPT) 94 H Alkaline Phosphatase 164 H Total Protein 4.6 #L Albumin 2.5 #L Triglycerides Level 136 Cholesterol Level 101 LDL Cholesterol, Calculated 34 HDL Cholesterol 40 Cholesterol/HDL Ratio 2.5 Amylase Level 2167 H Lipase 61748 H Thyroid Stimulating Hormone (TSH) 0.970 Blood Gas Tidal Volume 450.0 Blood Gas High PEEP Setting 5.0 Test 01/05/17 09:08 Bedside Glucose 133 Medications Medications Current Medications Ondansetron HCl (Zofran Inj) 4 mg Q6H PRN IV NAUSEA AND/OR VOMITING; Start 01/04 at 19:30 Acetaminophen (Tylenol Tab) 650 mg Q6H PRN PO PAIN LEVEL 1-3 OR FEVER; Start at 19:30 Acetaminophen/ Hydrocodone Bitart ([place] (5/325)) 1 tab Q6H PRN PO MODERATE PAIN LEVEL 4-6; Start 01/04/17 at 19:30 Morphine Sulfate (morphine) 2 mg Q4H PRN IV SEVERE PAIN LEVEL 7-10 Last administered on 01/04/17 23:51; Admin Dose 2 MG; Start 01/04/17 at 19:30 Docusate Sodium (Colace) 100 mg Q12H PRN PO CONSTIPATION; Start 01/04/17 at 19: 30 Magnesium Hydroxide (Milk Of Mag) 30 ml DAILY PRN PO CONSTIPATION; Start at 19:30 Sodium Biphosphate/ Sodium Phosphate (Fleet Enema) 133 ml DAILY PRN [place] CONSTIPATION; Start 01/04/17 at 19:30 Heparin Sodium (Porcine) (Heparin (5000 Units/0.5 ml)) 5,000 unit Q12 SC Last administered on 01/05/17 10:26; Admin Dose 5,000 UNIT; Start 01/04/17 at 21:00 Lorazepam 0.5 mg 0.5 mg Q6H PRN IV ANXIETY; Start 01/04/17 at 19:30 Piperacillin Sod/ Tazobactam Sod (Zosyn 3.375gm/ 100 ml (Pmx)) 100 ml @ 200 mls /hr Q8 IVPB Last administered on 01/05/17 05:11; Admin Dose 200 MLS/HR; Start 01/04/17 at 22:00 Hydralazine HCl (Apresoline) 10 mg Q6H PRN IV ELEVATED BLOOD PRESSURE; Start at 19:30 Nitroglycerin (Nitroglycerin (Sl Tab) 0.4 Mg) 1 tab Q5M PRN SL ANGINA; Start at 19:30 Insulin Aspart (Novolog Insulin Pen) NOVOLOG *MILD* ALGORI... Q4 SC ; Start 01/04 at 21:00 Phenobarbital (Luminal) 64.8 mg BID PO Last administered on 01/04/17 23:45; Admin Dose 64.8 MG; Start 01/04/17 at 21:00; Status Future Hold Miscellaneous Information 200 mg BID PO ; Start 01/04/17 at 21:00; Status UNV Miscellaneous Information 1 ea NOTE XX ; Start 01/04/17 at 19:30 Glucose (Glutose) 15 gm Q15M PRN PO DECREASED GLUCOSE; Start 01/04/17 at 19:30 Glucose (Glutose) 22.5 gm Q15M PRN PO DECREASED GLUCOSE; Start 01/04/17 at 19:30 Dextrose (D50w Syringe) 25 ml Q15M PRN IV DECREASED GLUCOSE; Start 01/04/17 at 19:30 Dextrose (D50w Syringe) 50 ml Q15M PRN IV DECREASED GLUCOSE; Start 01/04/17 at 19:30 Glucagon (Glucagen) 1 mg Q15M PRN IM DECREASED GLUCOSE; Start 01/04/17 at 19:30 Glucose (Glutose) 15 gm Q15M PRN BUCCAL DECREASED GLUCOSE; Start 01/04/17 at 19: 30 Phenytoin (Dilantin Susp Cup) 100 mg TID PO Last administered on 01/04/17 23:44 ; Admin Dose 100 MG; Start 01/04/17 at 21:50; Status Future Hold Clonazepam 0.5 mg 0.5 mg Q8H PO Last administered on 01/04/17 23:45; Admin Dose 0.5 MG; Start 01/04/17 at 23:00 Norepinephrine 16 mg/Dextrose 500 ml @ 1.87 mls/hr TITRATE IV Last administered on 01/05/17 02:24; Admin Dose 30 MLS/HR; Start 01/05/17 at 00:30 Fentanyl 100 ml @ 2.5 mls/hr TITRATE IV Last administered on 01/05/17 08:49; Admin Dose 2.5 MLS/HR; Start 01/05/17 at 08:39 Midazolam HCl 50 ml @ 1 mls/hr TITRATE IV Last administered on 01/05/17 08:44; Admin Dose 5 MLS/HR; Start 01/05/17 at 08:41 Levetiracetam 100 ml @ 400 mls/hr Q12 IVPB ; Start 01/05/17 at 11:30 Phenylephrine HCl 250 ml @ 75 mls/hr TITRATE IV Last administered on 01/05/17 10:00; Admin Dose 15 MLS/HR; Start 01/05/17 at 10:12 Sodium Bicarbonate/ Dextrose/Sodium Chloride (Na Bicarb/D5-1/ 2ns) 1,100 ml @ 125 mls/hr Q8H48M IV ; Start 01/05/17 at 11:30 [facility]AR[facility] VALERIO MD[facility] Jan 05, 2017 10:38
[2017-01-05] MEDS: LEVETIRACETAM 1000 MG (PMX) 100 ML IVPB SCH ×2 (11:30→20:38)
[2017-01-05] MEDS ORDERED: SODIUM BICARBONATE (IV ADD) 100 MEQ in DEXTROSE 5%-0.45% NACL 1,000 ML IV SCH (11:30)
[2017-01-05] MEDS: SODIUM BICARBONATE (IV ADD) 100 MEQ in DEXTROSE 5%-0.45% NACL 1,000 ML IV SCH ×2 (12:05→21:18)
--- NOTE | 2017-01-05 13:20 | CONS ---
Date/Time of Note Date/Time of Note DATE: 01/05/17 TIME: 13:15 Consultation Date/Type/Reason Admit Date/Time Jan 04, 2017 at 19:10 Hx of Present Illness History of abdominal pain and because of that patient came to the emergency room she was found to have acute pancreatitis She also developed respiratory distress sequently she is intubated and she is currently in the intensive care unit Details of the medical history not available because he is intubated and cannot reach the family members Patient is currently intubated she is on norepinephrine she is also on the Robert- Synephrine pulse is around 90/min blood pressure is around 90/60 She is currently unresponsive because he is on Versed drip Physical exam patient is intubated pulse is a 90 blood pressure as mentioned above Cardiovascular exam normal heart Respiratory system normal breath sounds Abdomen shows soft abdomen nontender EXAMINING OFFICER is unknown because he is currently sedated with Versed Laboratory workup see below lipase is more than 15,000 WC count 22,000 came down to 15,000 Please see the liver panel was not significantly elevated See the medication list Acute pancreatitis ultrasound and CAT scan shows evidence of a biliary dilatation no gallstones noted Common bile duct stone is a good possibility History of seizure disorder Respiratory failure status post intubation Plan continue supportive therapy The patient gets deteriorated particularly from cholangitis standpoint she may need emergency ERCP We will continue antibiotic therapy supportive care Psychological: No nl mood/affect Past Surgical History Past Surgical Hx: other (Skin grafts) Social History Alcohol Use: none Smoking Status: Never smoker Exam/Review of Systems Vital Signs Vitals Vital Signs Date Time Temp Pulse Resp B/P Pulse Ox O2 Delivery O2 Flow Rate FiO2 01/05/17 12:00 160 01/05/17 11:30 36 101/76 100 01/05/17 11:00 Mechanical Ventilator 01/05/17 10:20 50 01/05/17 09:00 99.3 01/04/17 23:15 4.0 Intake and Output 01/04/17 01/04/17 01/05/17 15:00 23:00 07:00 Intake Total 3258.75 ml 1508.11 ml Output Total 65 ml 170 ml Balance 3193.75 ml 1338.11 ml Results Result Diagram: 01/05/17 0500 01/05/17 0500 Results 24 hrs Laboratory Tests Test 01/04/17 14:42 01/04/17 14:50 01/04/17 15:00 01/04/17 15:15 Blood Gas Specimen Source Blood arterial Arterial Blood Date Drawn 01/04/2017 7:00:27 PM Arterial Blood pH (Temp corrected) 7.248 *L Arterial Blood pCO2 (Temp correct) 23.3 L Arterial Blood pO2 (Temp corrected) 302.8 H Arterial Blood HCO3 9.9 *L Arterial Blood Base Excess -15.2 L Arterial Blood Oxygen Saturation 99.5 H Rashad Test ACCEPTAB Arterial Blood Gas Puncture Site Right Radial Arterial Blood Carboxyhemoglobin 0.2 Arterial Blood Methemoglobin 0.4 Blood Gas A-a O2 Differential 386.9 H Oxyhemoglobin Percent 98.9 Total Hemoglobin 15.6 Blood Gas Temperature 37.0 Blood Gas Modality MASK - NRB FiO2 100.0 Blood Gas Critical Value Read Back Jens MCCRAY MD Blood Gas Notified Whom AMINA Blood Gas Notified Time 01/04/2017 7:07:03 PM Prothrombin Time 16.7 H Prothrombin Time Ratio 1.3 INR International Normalized Ratio 1.34 Activated Partial Thromboplast Time 27.0 Lactic Acid Level 2.8 H Lipase 14265 H Urine Color HENRY Urine Clarity CLOUDY A Urine pH 5.0 Urine Specific [place] 1.016 Urine Ketones NEGATIVE Urine Nitrite NEGATIVE Urine Bilirubin NEGATIVE Urine Urobilinogen 1+ H Urine Leukocyte Esterase 1+ H Urine Microscopic RBC 1 Urine Microscopic WBC 2 Urine Squamous Epithelial Cells MANY A Urine Bacteria MODERATE Urine Hyaline Casts FEW A Urine Mucus FEW A Urine Hemoglobin 1+ H Urine Glucose NEGATIVE Urine Total Protein 2+ H Test 01/04/17 16:00 01/04/17 17:59 01/04/17 22:04 01/04/17 22:16 White Blood Count 21.0 H Red Blood Count 4.41 Hemoglobin 13.4 Hematocrit 41.8 Mean Corpuscular Volume 94.8 Mean Corpuscular Hemoglobin 30.4 Mean Corpuscular Hemoglobin Concent 32.1 Red Cell Distribution Width 14.8 H Platelet Count 484 H Mean Platelet Volume 9.4 Neutrophils % 67.0 Band Neutrophils % 25.0 H Lymphocytes % 3.0 L Monocytes % 4.0 Eosinophils % Metamyelocytes % 1.0 H Neutrophils # 14.1 H Lymphocytes # 0.6 L Monocytes # 0.8 Eosinophils # Metamyelocytes # 0.2 Sodium Level 147 H Potassium Level 3.2 L Chloride Level 113 H Carbon Dioxide Level 11 L Anion Gap 26 H Blood Urea Nitrogen 17 Creatinine 1.85 H Glucose Level 147 Lactic Acid Level 5.9 *H 2.2 Calcium Level 6.9 L Total Bilirubin 0.2 Direct Bilirubin 0.00 Indirect Bilirubin 0.2 Aspartate Amino Transf (AST/SGOT) 270 H Alanine Aminotransferase (ALT/SGPT) 172 H Alkaline Phosphatase 233 H Troponin I 0.017 Total Protein 7.1 Albumin 4.1 Globulin 3.00 Albumin/Globulin Ratio 1.36 Prothrombin Time 17.7 H Prothrombin Time Ratio 1.4 INR International Normalized Ratio 1.45 Activated Partial Thromboplast Time 34.4 Free Thyroxine 1.30 Bedside Glucose 133 Test 01/05/17 01:24 01/05/17 04:39 01/05/17 05:00 01/05/17 07:23 Blood Gas Specimen Source Blood arterial Blood arterial Arterial Blood Date Drawn 01/05/2017 1:35:44 AM 01/05/2017 9:10:46 AM Arterial Blood pH (Temp corrected) 7.260 *L 7.347 L Arterial Blood pCO2 (Temp correct) 21.1 L 21.6 L Arterial Blood pO2 (Temp corrected) 171.3 H 102.4 H Arterial Blood HCO3 9.3 *L 11.6 L Arterial Blood Base Excess -15.4 L -11.6 L Arterial Blood Oxygen Saturation 98.8 H 97.3 Rashad Test ACCEPTAB N/A Arterial Blood Gas Puncture Site Right Radial Right Brachial Arterial Blood Carboxyhemoglobin 0.2 0.3 Arterial Blood Methemoglobin 0.4 0.5 Blood Gas A-a O2 Differential 161.5 H 229.8 H Oxyhemoglobin Percent 98.2 96.5 Total Hemoglobin 15.5 15.2 Blood Gas Temperature 37.0 37.0 Blood Gas Respiration Rate 14.0 36.0 Blood Gas Actual Respiration Rate 41 38 Blood Gas Modality MASK - BIPAP VENT - AC FiO2 50.0 50.0 Blood Gas Pressure Support 10 Blood Gas IPAP/EPAP Ratio 15/5 Blood Gas Critical Value Read Back Juan CASTRO R.N. Blood Gas Notified Whom AURELIA ESPINOZA Blood Gas Notified Time 01/05/2017 1:47:10 AM 01/05/2017 9:18:23 AM Bedside Glucose 100 White Blood Count 15.5 #H Red Blood Count 4.63 Hemoglobin 13.7 Hematocrit 43.0 Mean Corpuscular Volume 92.9 Mean Corpuscular Hemoglobin 29.6 Mean Corpuscular Hemoglobin Concent 31.9 L Red Cell Distribution Width 14.9 H Platelet Count 433 H Mean Platelet Volume 9.9 Neutrophils % 87.9 H Lymphocytes % 7.7 L Monocytes % 3.9 Eosinophils % 0.0 Basophils % 0.1 Nucleated Red Blood Cells % 0.0 Neutrophils # 13.6 H Lymphocytes # 1.2 Monocytes # 0.6 Eosinophils # 0.0 Basophils # 0.0 Nucleated Red Blood Cells # 0.0 Prothrombin Time 19.3 H Prothrombin Time Ratio 1.5 INR International Normalized Ratio 1.61 Activated Partial Thromboplast Time 35.5 H Sodium Level 142 Potassium Level 5.0 Chloride Level 115 H Carbon Dioxide Level 12 L Anion Gap 20 H Blood Urea Nitrogen 26 H Creatinine 1.73 H Glucose Level 254 #H Hemoglobin A1c 5.0 Lactic Acid Level 3.1 H Calcium Level 6.4 L Phosphorus Level 3.8 Magnesium Level 1.7 Total Bilirubin 0.1 L Direct Bilirubin 0.10 Indirect Bilirubin 0.0 Aspartate Amino Transf (AST/SGOT) 100 H Alanine Aminotransferase (ALT/SGPT) 94 H Alkaline Phosphatase 164 H Total Protein 4.6 #L Albumin 2.5 #L Triglycerides Level 136 Cholesterol Level 101 LDL Cholesterol, Calculated 34 HDL Cholesterol 40 Cholesterol/HDL Ratio 2.5 Amylase Level 2167 H Lipase 83724 H Thyroid Stimulating Hormone (TSH) 0.970 Blood Gas Tidal Volume 450.0 Blood Gas High PEEP Setting 5.0 Test 01/05/17 09:08 Bedside Glucose 133 Medications Medications Current Medications Ondansetron HCl (Zofran Inj) 4 mg Q6H PRN IV NAUSEA AND/OR VOMITING; Start 01/04 at 19:30 Acetaminophen (Tylenol Tab) 650 mg Q6H PRN PO PAIN LEVEL 1-3 OR FEVER; Start at 19:30 Acetaminophen/ Hydrocodone Bitart ([place] (5/325)) 1 tab Q6H PRN PO MODERATE PAIN LEVEL 4-6; Start 01/04/17 at 19:30 Morphine Sulfate (morphine) 2 mg Q4H PRN IV SEVERE PAIN LEVEL 7-10 Last administered on 01/04/17t 23:51; Admin Dose 2 MG; Start 01/04/17 at 19:30 Docusate Sodium (Colace) 100 mg Q12H PRN PO CONSTIPATION; Start 01/04/17 at 19: 30 Magnesium Hydroxide (Milk Of Mag) 30 ml DAILY PRN PO CONSTIPATION; Start at 19:30 Sodium Biphosphate/ Sodium Phosphate (Fleet Enema) 133 ml DAILY PRN [place] CONSTIPATION; Start 01/04/17 at 19:30 Heparin Sodium (Porcine) (Heparin (5000 Units/0.5 ml)) 5,000 unit Q12 SC Last administered on 01/05/17 10:26; Admin Dose 5,000 UNIT; Start 01/04/17 at 21:00 Lorazepam 0.5 mg 0.5 mg Q6H PRN IV ANXIETY; Start 01/04/17 at 19:30 Piperacillin Sod/ Tazobactam Sod (Zosyn 3.375gm/ 100 ml (Pmx)) 100 ml @ 200 mls /hr Q8 IVPB Last administered on 01/05/17 05:11; Admin Dose 200 MLS/HR; Start 01/04/17 at 22:00 Hydralazine HCl (Apresoline) 10 mg Q6H PRN IV ELEVATED BLOOD PRESSURE; Start at 19:30 Nitroglycerin (Nitroglycerin (Sl Tab) 0.4 Mg) 1 tab Q5M PRN SL ANGINA; Start at 19:30 Insulin Aspart (Novolog Insulin Pen) NOVOLOG *MILD* ALGORI... Q4 SC ; Start 01/04 at 21:00 Phenobarbital (Luminal) 64.8 mg BID PO Last administered on 01/04/17 23:45; Admin Dose 64.8 MG; Start 01/04/17 at 21:00; Status Future Hold Topiramate (Topamax) 200 mg BID PO ; Start 01/05/17 at 21:00; Status Future Hold Miscellaneous Information 1 ea NOTE XX ; Start 01/04/17 at 19:30 Glucose (Glutose) 15 gm Q15M PRN PO DECREASED GLUCOSE; Start 01/04/17 at 19:30 Glucose (Glutose) 22.5 gm Q15M PRN PO DECREASED GLUCOSE; Start 01/04/17 at 19:30 Dextrose (D50w Syringe) 25 ml Q15M PRN IV DECREASED GLUCOSE; Start 01/04/17 at 19:30 Dextrose (D50w Syringe) 50 ml Q15M PRN IV DECREASED GLUCOSE; Start 01/04/17 at 19:30 Glucagon (Glucagen) 1 mg Q15M PRN IM DECREASED GLUCOSE; Start 01/04/17 at 19:30 Glucose (Glutose) 15 gm Q15M PRN BUCCAL DECREASED GLUCOSE; Start 01/04/17 at 19: 30 Phenytoin (Dilantin Susp Cup) 100 mg TID PO Last administered on 01/04/17 23:44 ; Admin Dose 100 MG; Start 01/04/17 at 21:50; Status Future Hold Clonazepam 0.5 mg 0.5 mg Q8H PO Last administered on 01/04/17 23:45; Admin Dose 0.5 MG; Start 01/04/17 at 23:00; Status Future Hold Norepinephrine 16 mg/Dextrose 500 ml @ 1.87 mls/hr TITRATE IV Last administered on 01/05/17 11:32; Admin Dose 56.25 MLS/HR; Start 01/05/17 at 00:30 Fentanyl 100 ml @ 2.5 mls/hr TITRATE IV Last administered on 01/05/17 08:49; Admin Dose 2.5 MLS/HR; Start 01/05/17 at 08:39 Midazolam HCl 50 ml @ 1 mls/hr TITRATE IV Last administered on 01/05/17 08:44; Admin Dose 5 MLS/HR; Start 01/05/17 at 08:41 Levetiracetam 100 ml @ 400 mls/hr Q12 IVPB Last administered on 01/05/17 11:30 ; Admin Dose 400 MLS/HR; Start 01/05/17 at 11:30 Phenylephrine HCl 250 ml @ 75 mls/hr TITRATE IV Last administered on 01/05/17 12:19; Admin Dose 150 MLS/HR; Start 01/05/17 at 10:12 Sodium Bicarbonate/ Dextrose/Sodium Chloride (Na Bicarb/D5-1/ 2ns) 1,100 ml @ 125 mls/hr Q8H48M IV Last administered on 01/05/17 12:05; Admin Dose 125 MLS/HR ; Start 01/05/17 at 11:39 MYNOR UMRPHY MD Jan 05, 2017 13:19
[2017-01-05 15:23] LABS: ADD SCAN DIFF NO
[2017-01-05 15:25] LABS: ABNORMAL IP MESSAGE 1; HEMATOCRIT 38.6 % (37.0-47.0); HEMOGLOBIN 12.9 g/dl (12.0-16.0); MEAN CORPUSCULAR HEMOGLOBIN 30.6 pg (29.0-33.0); MEAN CORPUSCULAR HGB CONC 33.4 g/dl (32.0-37.0); MEAN CORPUSCULAR VOLUME 91.7 fl (82.0-101.0); MEAN PLATELET VOLUME 9.6 fl (7.4-10.4); PLATELET COUNT 367 10^3/UL (140-415); RED BLOOD COUNT 4.21 10^6/ul (4.20-5.40); WHITE BLOOD COUNT 11.8 10^3/ul (4.8-10.8)
[2017-01-05 15:41] LABS: CREATININE 2.92 mg/dl (0.44-1.00); POTASSIUM 3.9 mmol/L (3.5-5.1)
[2017-01-05 15:42] LABS: CALCIUM 5.7 mg/dl (8.4-10.2)
[2017-01-05 15:46] LABS: LYMPHOCYTES # 3.1 10^3/ul (0.8-2.9); MONOCYTE # 0.6 10^3/ul (0.3-0.9)
[2017-01-05 15:50] LABS: AMYLASE 2037 U/L (11-123)
[2017-01-05 16:27] LABS: AADO2 Arterial 204.2 mmHg (7.0-24.0); Arterial Base Excess -12.6 mmol/L (-3.0-3); Arterial COHb 0.3 % (0.0-3.0); Arterial Fraction of Oxyhgb 97.3 % (93.0-99.0); Arterial HCO3 11.5 mmol/L (22.0-26.0); Arterial MetHb 0.4 % (0.0-1.5); Arterial Total Hemglobin 13.9 g/dl (12.0-18.0); MODE VENT - AC
[2017-01-05] MEDS ORDERED: VANCOMYCIN IV PER PHARMACY XX SCH (16:30)
[2017-01-05] MEDS: PHENYLephrine 40 MG in DEXTROSE 5% 496 ML IV SCH ×2 (17:08→19:26)
--- NOTE | 2017-01-05 17:16 | PN ---
Date/Time of Note Date/Time of Note DATE: 01/05/17 TIME: 17:08 Assessment/Plan VTE Prophylaxis VTE Prophylaxis Intervention: heparin Assessment/Plan Chief Complaint/Hosp Course 1. Severe shock likely secondary to severe Pancreatitis Ultrasound shows no gallstones but CT abdomen shows biliary ductal dilation without gallstones LFTs are elevated as his lipase GI consultation appreciated, patient is unstable for MRCP at this time Patient is now on 3 pressors, prognosis is poor Continue broad-spectrum antibiotics with vancomycin and Zosyn Urine culture is positive for gram-negative rods but UA does not show significant pyuria, broad-spectrum antibiotics Follow-up on drug screen as well as therapeutic levels of Dilantin to evaluate for overdose 2. Seizure disorder on multiple medications Continue Keppra IV No report of seizures prior to arrival, no seizures in house 3. Multiple electrolyte abnormalities Replete as needed 4. Transaminitis secondary to medication overdose versus shock liver versus choledocholithiasis Check hepatitis panel GI consultation appreciated Monitor 5. Anuric acute kidney injury likely secondary to shock Nephrology consultation Continue IV fluids Prophylaxis: Heparin Problems: Subjective 24 Hr Interval Summary Subjective hx not possible: pt non-verbal Exam/Review of Systems Vital Signs Vitals Vital Signs Date Time Temp Pulse Resp B/P Pulse Ox O2 Delivery O2 Flow Rate FiO2 01/05/17 16:00 157 01/05/17 15:30 30 100 50 01/05/17 14:45 93/69 01/05/17 14:00 Mechanical Ventilator 01/05/17 12:00 99.3 01/04/17 23:15 4.0 Intake and Output 01/04/17 01/04/17 01/05/17 15:00 23:00 07:00 Intake Total 3258.75 ml 1508.11 ml Output Total 65 ml 170 ml Balance 3193.75 ml 1338.11 ml Exam Constitutional: non-verbal ENMT: intubated Respiratory: clear to auscultation Cardiovascular: regular rate and rhythm Gastrointestinal: soft, No distended Musculoskeletal: nl extremities to inspection Results Result Diagram: 01/05/17 1516 01/05/17 1516 Results 24 hrs Laboratory Tests Test 01/04/17 17:59 01/04/17 22:04 01/04/17 22:16 01/05/17 01:24 Lactic Acid Level 2.2 Prothrombin Time 17.7 H Prothrombin Time Ratio 1.4 INR International Normalized Ratio 1.45 Activated Partial Thromboplast Time 34.4 Free Thyroxine 1.30 Bedside Glucose 133 Blood Gas Specimen Source Blood arterial Arterial Blood Date Drawn 01/05/2017 1:35:44 AM Arterial Blood pH (Temp corrected) 7.260 *L Arterial Blood pCO2 (Temp correct) 21.1 L Arterial Blood pO2 (Temp corrected) 171.3 H Arterial Blood HCO3 9.3 *L Arterial Blood Base Excess -15.4 L Arterial Blood Oxygen Saturation 98.8 H Rashad Test ACCEPTAB Arterial Blood Gas Puncture Site Right Radial Arterial Blood Carboxyhemoglobin 0.2 Arterial Blood Methemoglobin 0.4 Blood Gas A-a O2 Differential 161.5 H Oxyhemoglobin Percent 98.2 Total Hemoglobin 15.5 Blood Gas Temperature 37.0 Blood Gas Respiration Rate 14.0 Blood Gas Actual Respiration Rate 41 Blood Gas Modality MASK - BIPAP FiO2 50.0 Blood Gas Pressure Support 10 Blood Gas IPAP/EPAP Ratio 15/5 Blood Gas Critical Value Read Back Juan CASTRO R.N. Blood Gas Notified Whom AURELIA ZEPEDA Blood Gas Notified Time 01/05/2017 1:47:10 AM Test 01/05/17 04:39 01/05/17 05:00 01/05/17 07:23 01/05/17 09:08 Bedside Glucose 100 133 White Blood Count 15.5 #H Red Blood Count 4.63 Hemoglobin 13.7 Hematocrit 43.0 Mean Corpuscular Volume 92.9 Mean Corpuscular Hemoglobin 29.6 Mean Corpuscular Hemoglobin Concent 31.9 L Red Cell Distribution Width 14.9 H Platelet Count 433 H Mean Platelet Volume 9.9 Neutrophils % 87.9 H Lymphocytes % 7.7 L Monocytes % 3.9 Eosinophils % 0.0 Basophils % 0.1 Nucleated Red Blood Cells % 0.0 Neutrophils # 13.6 H Lymphocytes # 1.2 Monocytes # 0.6 Eosinophils # 0.0 Basophils # 0.0 Nucleated Red Blood Cells # 0.0 Prothrombin Time 19.3 H Prothrombin Time Ratio 1.5 INR International Normalized Ratio 1.61 Activated Partial Thromboplast Time 35.5 H Sodium Level 142 Potassium Level 5.0 Chloride Level 115 H Carbon Dioxide Level 12 L Anion Gap 20 H Blood Urea Nitrogen 26 H Creatinine 1.73 H Glucose Level 254 #H Hemoglobin A1c 5.0 Lactic Acid Level 3.1 H Calcium Level 6.4 L Phosphorus Level 3.8 Magnesium Level 1.7 Total Bilirubin 0.1 L Direct Bilirubin 0.10 Indirect Bilirubin 0.0 Aspartate Amino Transf (AST/SGOT) 100 H Alanine Aminotransferase (ALT/SGPT) 94 H Alkaline Phosphatase 164 H Total Protein 4.6 #L Albumin 2.5 #L Triglycerides Level 136 Cholesterol Level 101 LDL Cholesterol, Calculated 34 HDL Cholesterol 40 Cholesterol/HDL Ratio 2.5 Amylase Level 2167 H Lipase 07011 H Thyroid Stimulating Hormone (TSH) 0.970 Blood Gas Specimen Source Blood arterial Arterial Blood Date Drawn 01/05/2017 9:10:46 AM Arterial Blood pH (Temp corrected) 7.347 L Arterial Blood pCO2 (Temp correct) 21.6 L Arterial Blood pO2 (Temp corrected) 102.4 H Arterial Blood HCO3 11.6 L Arterial Blood Base Excess -11.6 L Arterial Blood Oxygen Saturation 97.3 Rashad Test N/A Arterial Blood Gas Puncture Site Right Brachial Arterial Blood Carboxyhemoglobin 0.3 Arterial Blood Methemoglobin 0.5 Blood Gas A-a O2 Differential 229.8 H Oxyhemoglobin Percent 96.5 Total Hemoglobin 15.2 Blood Gas Temperature 37.0 Blood Gas Respiration Rate 36.0 Blood Gas Actual Respiration Rate 38 Blood Gas Modality VENT - AC FiO2 50.0 Blood Gas Tidal Volume 450.0 Blood Gas High PEEP Setting 5.0 Blood Gas Notified Whom TM Blood Gas Notified Time 01/05/2017 9:18:23 AM Test 01/05/17 14:27 01/05/17 15:16 01/05/17 16:00 Bedside Glucose 120 White Blood Count 11.8 #H Red Blood Count 4.21 Hemoglobin 12.9 Hematocrit 38.6 Mean Corpuscular Volume 91.7 Mean Corpuscular Hemoglobin 30.6 Mean Corpuscular Hemoglobin Concent 33.4 Red Cell Distribution Width 15.0 H Platelet Count 367 Mean Platelet Volume 9.6 Neutrophils % 59.0 Band Neutrophils % 10.0 H Lymphocytes % 26.0 Monocytes % 5.0 Eosinophils % Neutrophils # 7.0 Lymphocytes # 3.1 H Monocytes # 0.6 Eosinophils # Sodium Level 144 Potassium Level 3.9 Chloride Level 118 H Carbon Dioxide Level 16 L Anion Gap 14 Blood Urea Nitrogen 33 H Creatinine 2.92 #H Glucose Level 211 Lactic Acid Level 4.4 *H Calcium Level 5.7 *L Amylase Level 2037 #H Lipase 7291 H Blood Gas Specimen Source Blood arterial Arterial Blood Date Drawn 01/05/2017 4:19:05 PM Arterial Blood pH (Temp corrected) 7.317 L Arterial Blood pCO2 (Temp correct) 23.0 L Arterial Blood pO2 (Temp corrected) 126.4 H Arterial Blood HCO3 11.5 L Arterial Blood Base Excess -12.6 L Arterial Blood Oxygen Saturation 98.0 Rashad Test N/A Arterial Blood Gas Puncture Site LB Arterial Blood Carboxyhemoglobin 0.3 Arterial Blood Methemoglobin 0.4 Blood Gas A-a O2 Differential 204.2 H Oxyhemoglobin Percent 97.3 Total Hemoglobin 13.9 Blood Gas Temperature 37.0 Blood Gas Respiration Rate 30.0 Blood Gas Actual Respiration Rate 30 Blood Gas Modality VENT - AC FiO2 50.0 Blood Gas Tidal Volume 450.0 Blood Gas Low PEEP Setting 5.0 Blood Gas Notified Whom M.D. Blood Gas Notified Time 01/05/2017 4:26:44 PM Medications Medications Current Medications Ondansetron HCl (Zofran Inj) 4 mg Q6H PRN IV NAUSEA AND/OR VOMITING; Start 01/04 at 19:30 Acetaminophen (Tylenol Tab) 650 mg Q6H PRN PO PAIN LEVEL 1-3 OR FEVER; Start at 19:30 Acetaminophen/ Hydrocodone Bitart ([place] (5/325)) 1 tab Q6H PRN PO MODERATE PAIN LEVEL 4-6; Start 01/04/17 at 19:30 Morphine Sulfate (morphine) 2 mg Q4H PRN IV SEVERE PAIN LEVEL 7-10 Last administered on 01/04/17 23:51; Admin Dose 2 MG; Start 01/04/17 at 19:30 Docusate Sodium (Colace) 100 mg Q12H PRN PO CONSTIPATION; Start 01/04/17 at 19: 30 Magnesium Hydroxide (Milk Of Mag) 30 ml DAILY PRN PO CONSTIPATION; Start at 19:30 Sodium Biphosphate/ Sodium Phosphate (Fleet Enema) 133 ml DAILY PRN [place] CONSTIPATION; Start 01/04/17 at 19:30 Heparin Sodium (Porcine) (Heparin (5000 Units/0.5 ml)) 5,000 unit Q12 SC Last administered on 01/05/17 10:26; Admin Dose 5,000 UNIT; Start 01/04/17 at 21:00 Lorazepam 0.5 mg 0.5 mg Q6H PRN IV ANXIETY; Start 01/04/17 at 19:30 Piperacillin Sod/ Tazobactam Sod (Zosyn 3.375gm/ 100 ml (Pmx)) 100 ml @ 200 mls /hr Q8 IVPB Last administered on 01/05/17 14:31; Admin Dose 200 MLS/HR; Start 01/04/17 at 22:00 Hydralazine HCl (Apresoline) 10 mg Q6H PRN IV ELEVATED BLOOD PRESSURE; Start at 19:30 Nitroglycerin (Nitroglycerin (Sl Tab) 0.4 Mg) 1 tab Q5M PRN SL ANGINA; Start at 19:30 Insulin Aspart (Novolog Insulin Pen) NOVOLOG *MILD* ALGORI... Q4 SC ; Start 01/04 at 21:00 Phenobarbital (Luminal) 64.8 mg BID PO Last administered on 01/04/17 23:45; Admin Dose 64.8 MG; Start 01/04/17 at 21:00; Status Future Hold Topiramate (Topamax) 200 mg BID PO ; Start 01/05/17 at 21:00; Status Future Hold Miscellaneous Information 1 ea NOTE XX ; Start 01/04/17 at 19:30 Glucose (Glutose) 15 gm Q15M PRN PO DECREASED GLUCOSE; Start 01/04/17 at 19:30 Glucose (Glutose) 22.5 gm Q15M PRN PO DECREASED GLUCOSE; Start 01/04/17 at 19:30 Dextrose (D50w Syringe) 25 ml Q15M PRN IV DECREASED GLUCOSE; Start 01/04/17 at 19:30 Dextrose (D50w Syringe) 50 ml Q15M PRN IV DECREASED GLUCOSE; Start 01/04/17 at 19:30 Glucagon (Glucagen) 1 mg Q15M PRN IM DECREASED GLUCOSE; Start 01/04/17 at 19:30 Glucose (Glutose) 15 gm Q15M PRN BUCCAL DECREASED GLUCOSE; Start 01/04/17 at 19: 30 Phenytoin (Dilantin Susp Cup) 100 mg TID PO Last administered on 01/04/17 23:44 ; Admin Dose 100 MG; Start 01/04/17 at 21:50; Status Future Hold Clonazepam 0.5 mg 0.5 mg Q8H PO Last administered on 01/04/17 23:45; Admin Dose 0.5 MG; Start 01/04/17 at 23:00; Status Future Hold Norepinephrine 16 mg/Dextrose 500 ml @ 1.87 mls/hr TITRATE IV Last administered on 01/05/17 11:32; Admin Dose 56.25 MLS/HR; Start 01/05/17 at 00:30 Fentanyl 100 ml @ 2.5 mls/hr TITRATE IV Last administered on 01/05/17 08:49; Admin Dose 2.5 MLS/HR; Start 01/05/17 at 08:39 Midazolam HCl 50 ml @ 1 mls/hr TITRATE IV Last administered on 01/05/17 13:58; Admin Dose 10 MLS/HR; Start 01/05/17 at 08:41 Levetiracetam 100 ml @ 400 mls/hr Q12 IVPB Last administered on 01/05/17 11:30 ; Admin Dose 400 MLS/HR; Start 01/05/17 at 11:30 Sodium Bicarbonate 100 meq/Dextrose/ Sodium Chloride 1,100 ml @ 125 mls/hr Q8H48M IV Last administered on 01/05/17 12:05; Admin Dose 125 MLS/HR; Start 01/05/17 at 11:39 Phenylephrine HCl 40 mg/Dextrose 500 ml @ 0 mls/hr TITRATE IV ; Start 01/05/17 at 16:00 Vasopressin 60 unit/Dextrose 60 ml @ 1.2 mls/hr Q12H IV ; Start 01/05/17 at 17: 30 Vancomycin HCl/ Sodium Chloride (Vancocin/NS) 250 ml @ 83.333 mls/ hr ONCE IVPB ; Start 01/05/17 at 17:30; Stop 01/05/17 at 23:56 YING CASTAÑEDA Jan 05, 2017 17:15
[2017-01-05] MEDS ORDERED: VANCOMYCIN 1.25 GM in SOD CHLORIDE 0.9% 250 ML IVPB SCH (17:30)
[2017-01-05] MEDS: VASOPRESSIN 60 UNIT in DEXTROSE 5% 57 ML IV SCH ×2 (17:30→22:32)
--- NOTE | 2017-01-05 17:39 | CONS ---
Date/Time of Note Date/Time of Note DATE: 01/05/17 TIME: 17:35 Assessment/Plan Assessment/Plan Additional Assessment/Plan 1. Acute renal failure sec to hypotension, vol contraction and pancreatitis. To cont to vol expand, no need for diuretics now, requiring inc pressors. 2. Metabolic acidosis sec to above. 3. Hypocalcemia sec to acute renal failure and pancreatitis, to repeat Ca, Mg and P tonight. Consultation Date/Type/Reason Admit Date/Time Jan 04, 2017 at 19:10 Date of Consultation: Jan 05, 2017 Type of Consultation: Renal Reason for Consultation Acute renal failure Referring Provider: YING CASTAÑEDA Hx of Present Illness Admitted with abdominal pain and evidence of severe pancreatitis in otherwise good health. Subjective hx not possible: other (intubated and sedated) Psychological: No nl mood/affect Past Surgical History Past Surgical Hx: other (Skin grafts, seizure disorder) Social History Alcohol Use: none Smoking Status: Never smoker Exam/Review of Systems Vital Signs Vitals Vital Signs Date Time Temp Pulse Resp B/P Pulse Ox O2 Delivery O2 Flow Rate FiO2 01/05/17 17:00 156 30 106/76 100 Mechanical Ventilator 01/05/17 16:00 100.3 01/05/17 15:30 50 01/04/17 23:15 4.0 Intake and Output 01/04/17 01/04/17 01/05/17 15:00 23:00 07:00 Intake Total 3258.75 ml 1508.11 ml Output Total 65 ml 170 ml Balance 3193.75 ml 1338.11 ml Exam intubated Neck: No jvd Respiratory: clear to auscultation, diminished breath sounds Cardiovascular: regular rate and rhythm Gastrointestinal: other (min distension), soft, No hepatomegaly, No splenomegaly Extremities: No edema Results Result Diagram: 01/05/17 1516 01/05/17 1516 Results 24 hrs Laboratory Tests Test 01/04/17 17:59 01/04/17 22:04 01/04/17 22:16 01/05/17 01:24 Lactic Acid Level 2.2 Prothrombin Time 17.7 H Prothrombin Time Ratio 1.4 INR International Normalized Ratio 1.45 Activated Partial Thromboplast Time 34.4 Free Thyroxine 1.30 Bedside Glucose 133 Blood Gas Specimen Source Blood arterial Arterial Blood Date Drawn 01/05/2017 1:35:44 AM Arterial Blood pH (Temp corrected) 7.260 *L Arterial Blood pCO2 (Temp correct) 21.1 L Arterial Blood pO2 (Temp corrected) 171.3 H Arterial Blood HCO3 9.3 *L Arterial Blood Base Excess -15.4 L Arterial Blood Oxygen Saturation 98.8 H Rashad Test ACCEPTAB Arterial Blood Gas Puncture Site Right Radial Arterial Blood Carboxyhemoglobin 0.2 Arterial Blood Methemoglobin 0.4 Blood Gas A-a O2 Differential 161.5 H Oxyhemoglobin Percent 98.2 Total Hemoglobin 15.5 Blood Gas Temperature 37.0 Blood Gas Respiration Rate 14.0 Blood Gas Actual Respiration Rate 41 Blood Gas Modality MASK - BIPAP FiO2 50.0 Blood Gas Pressure Support 10 Blood Gas IPAP/EPAP Ratio 15/5 Blood Gas Critical Value Read Back Juan CASTRO R.N. Blood Gas Notified Whom AURELIA ZEPEDA Blood Gas Notified Time 01/05/2017 1:47:10 AM Test 01/05/17 04:39 01/05/17 05:00 01/05/17 07:23 01/05/17 09:08 Bedside Glucose 100 133 White Blood Count 15.5 #H Red Blood Count 4.63 Hemoglobin 13.7 Hematocrit 43.0 Mean Corpuscular Volume 92.9 Mean Corpuscular Hemoglobin 29.6 Mean Corpuscular Hemoglobin Concent 31.9 L Red Cell Distribution Width 14.9 H Platelet Count 433 H Mean Platelet Volume 9.9 Neutrophils % 87.9 H Lymphocytes % 7.7 L Monocytes % 3.9 Eosinophils % 0.0 Basophils % 0.1 Nucleated Red Blood Cells % 0.0 Neutrophils # 13.6 H Lymphocytes # 1.2 Monocytes # 0.6 Eosinophils # 0.0 Basophils # 0.0 Nucleated Red Blood Cells # 0.0 Prothrombin Time 19.3 H Prothrombin Time Ratio 1.5 INR International Normalized Ratio 1.61 Activated Partial Thromboplast Time 35.5 H Sodium Level 142 Potassium Level 5.0 Chloride Level 115 H Carbon Dioxide Level 12 L Anion Gap 20 H Blood Urea Nitrogen 26 H Creatinine 1.73 H Glucose Level 254 #H Hemoglobin A1c 5.0 Lactic Acid Level 3.1 H Calcium Level 6.4 L Phosphorus Level 3.8 Magnesium Level 1.7 Total Bilirubin 0.1 L Direct Bilirubin 0.10 Indirect Bilirubin 0.0 Aspartate Amino Transf (AST/SGOT) 100 H Alanine Aminotransferase (ALT/SGPT) 94 H Alkaline Phosphatase 164 H Total Protein 4.6 #L Albumin 2.5 #L Triglycerides Level 136 Cholesterol Level 101 LDL Cholesterol, Calculated 34 HDL Cholesterol 40 Cholesterol/HDL Ratio 2.5 Amylase Level 2167 H Lipase 05840 H Thyroid Stimulating Hormone (TSH) 0.970 Blood Gas Specimen Source Blood arterial Arterial Blood Date Drawn 01/05/2017 9:10:46 AM Arterial Blood pH (Temp corrected) 7.347 L Arterial Blood pCO2 (Temp correct) 21.6 L Arterial Blood pO2 (Temp corrected) 102.4 H Arterial Blood HCO3 11.6 L Arterial Blood Base Excess -11.6 L Arterial Blood Oxygen Saturation 97.3 Rashad Test N/A Arterial Blood Gas Puncture Site Right Brachial Arterial Blood Carboxyhemoglobin 0.3 Arterial Blood Methemoglobin 0.5 Blood Gas A-a O2 Differential 229.8 H Oxyhemoglobin Percent 96.5 Total Hemoglobin 15.2 Blood Gas Temperature 37.0 Blood Gas Respiration Rate 36.0 Blood Gas Actual Respiration Rate 38 Blood Gas Modality VENT - AC FiO2 50.0 Blood Gas Tidal Volume 450.0 Blood Gas High PEEP Setting 5.0 Blood Gas Notified Whom TM Blood Gas Notified Time 01/05/2017 9:18:23 AM Test 01/05/17 14:27 01/05/17 15:16 01/05/17 16:00 01/05/17 17:04 Bedside Glucose 120 132 White Blood Count 11.8 #H Red Blood Count 4.21 Hemoglobin 12.9 Hematocrit 38.6 Mean Corpuscular Volume 91.7 Mean Corpuscular Hemoglobin 30.6 Mean Corpuscular Hemoglobin Concent 33.4 Red Cell Distribution Width 15.0 H Platelet Count 367 Mean Platelet Volume 9.6 Neutrophils % 59.0 Band Neutrophils % 10.0 H Lymphocytes % 26.0 Monocytes % 5.0 Eosinophils % Neutrophils # 7.0 Lymphocytes # 3.1 H Monocytes # 0.6 Eosinophils # Sodium Level 144 Potassium Level 3.9 Chloride Level 118 H Carbon Dioxide Level 16 L Anion Gap 14 Blood Urea Nitrogen 33 H Creatinine 2.92 #H Glucose Level 211 Lactic Acid Level 4.4 *H Calcium Level 5.7 *L Amylase Level 2037 #H Lipase 7291 H Phenytoin (Dilantin) Level 5.4 L Blood Gas Specimen Source Blood arterial Arterial Blood Date Drawn 01/05/2017 4:19:05 PM Arterial Blood pH (Temp corrected) 7.317 L Arterial Blood pCO2 (Temp correct) 23.0 L Arterial Blood pO2 (Temp corrected) 126.4 H Arterial Blood HCO3 11.5 L Arterial Blood Base Excess -12.6 L Arterial Blood Oxygen Saturation 98.0 Rashad Test N/A Arterial Blood Gas Puncture Site LB Arterial Blood Carboxyhemoglobin 0.3 Arterial Blood Methemoglobin 0.4 Blood Gas A-a O2 Differential 204.2 H Oxyhemoglobin Percent 97.3 Total Hemoglobin 13.9 Blood Gas Temperature 37.0 Blood Gas Respiration Rate 30.0 Blood Gas Actual Respiration Rate 30 Blood Gas Modality VENT - AC FiO2 50.0 Blood Gas Tidal Volume 450.0 Blood Gas Low PEEP Setting 5.0 Blood Gas Notified Whom M.D. Blood Gas Notified Time 01/05/2017 4:26:44 PM Medications Medications Current Medications Ondansetron HCl (Zofran Inj) 4 mg Q6H PRN IV NAUSEA AND/OR VOMITING; Start 01/04 at 19:30 Acetaminophen (Tylenol Tab) 650 mg Q6H PRN PO PAIN LEVEL 1-3 OR FEVER; Start at 19:30 Acetaminophen/ Hydrocodone Bitart ([place] (5/325)) 1 tab Q6H PRN PO MODERATE PAIN LEVEL 4-6; Start 01/04/17 at 19:30 Morphine Sulfate (morphine) 2 mg Q4H PRN IV SEVERE PAIN LEVEL 7-10 Last administered on 01/04/17 23:51; Admin Dose 2 MG; Start 01/04/17 at 19:30 Docusate Sodium (Colace) 100 mg Q12H PRN PO CONSTIPATION; Start 01/04/17 at 19: 30 Magnesium Hydroxide (Milk Of Mag) 30 ml DAILY PRN PO CONSTIPATION; Start at 19:30 Sodium Biphosphate/ Sodium Phosphate (Fleet Enema) 133 ml DAILY PRN [place] CONSTIPATION; Start 01/04/17 at 19:30 Heparin Sodium (Porcine) (Heparin (5000 Units/0.5 ml)) 5,000 unit Q12 SC Last administered on 01/05/17 10:26; Admin Dose 5,000 UNIT; Start 01/04/17 at 21:00 Lorazepam 0.5 mg 0.5 mg Q6H PRN IV ANXIETY; Start 01/04/17 at 19:30 Piperacillin Sod/ Tazobactam Sod (Zosyn 3.375gm/ 100 ml (Pmx)) 100 ml @ 200 mls /hr Q8 IVPB Last administered on 01/05/17 14:31; Admin Dose 200 MLS/HR; Start 01/04/17 at 22:00 Hydralazine HCl (Apresoline) 10 mg Q6H PRN IV ELEVATED BLOOD PRESSURE; Start at 19:30 Nitroglycerin (Nitroglycerin (Sl Tab) 0.4 Mg) 1 tab Q5M PRN SL ANGINA; Start at 19:30 Insulin Aspart (Novolog Insulin Pen) NOVOLOG *MILD* ALGORI... Q4 SC ; Start 01/04 at 21:00 Phenobarbital (Luminal) 64.8 mg BID PO Last administered on 01/04/17 23:45; Admin Dose 64.8 MG; Start 01/04/17 at 21:00; Status Future Hold Topiramate (Topamax) 200 mg BID PO ; Start 01/05/17 at 21:00; Status Future Hold Miscellaneous Information 1 ea NOTE XX ; Start 01/04/17 at 19:30 Glucose (Glutose) 15 gm Q15M PRN PO DECREASED GLUCOSE; Start 01/04/17 at 19:30 Glucose (Glutose) 22.5 gm Q15M PRN PO DECREASED GLUCOSE; Start 01/04/17 at 19:30 Dextrose (D50w Syringe) 25 ml Q15M PRN IV DECREASED GLUCOSE; Start 01/04/17 at 19:30 Dextrose (D50w Syringe) 50 ml Q15M PRN IV DECREASED GLUCOSE; Start 01/04/17 at 19:30 Glucagon (Glucagen) 1 mg Q15M PRN IM DECREASED GLUCOSE; Start 01/04/17 at 19:30 Glucose (Glutose) 15 gm Q15M PRN BUCCAL DECREASED GLUCOSE; Start 01/04/17 at 19: 30 Phenytoin (Dilantin Susp Cup) 100 mg TID PO Last administered on 01/04/17 23:44 ; Admin Dose 100 MG; Start 01/04/17 at 21:50; Status Future Hold Clonazepam 0.5 mg 0.5 mg Q8H PO Last administered on 01/04/17 23:45; Admin Dose 0.5 MG; Start 01/04/17 at 23:00; Status Future Hold Norepinephrine 16 mg/Dextrose 500 ml @ 1.87 mls/hr TITRATE IV Last administered on 01/05/17 11:32; Admin Dose 56.25 MLS/HR; Start 01/05/17 at 00:30 Fentanyl 100 ml @ 2.5 mls/hr TITRATE IV Last administered on 01/05/17 17:06; Admin Dose 10 MLS/HR; Start 01/05/17 at 08:39 Midazolam HCl 50 ml @ 1 mls/hr TITRATE IV Last administered on 01/05/17 13:58; Admin Dose 10 MLS/HR; Start 01/05/17 at 08:41 Levetiracetam 100 ml @ 400 mls/hr Q12 IVPB Last administered on 01/05/17 11:30 ; Admin Dose 400 MLS/HR; Start 01/05/17 at 11:30 Sodium Bicarbonate 100 meq/Dextrose/ Sodium Chloride 1,100 ml @ 125 mls/hr Q8H48M IV Last administered on 01/05/17 12:05; Admin Dose 125 MLS/HR; Start 01/05/17 at 11:39 Phenylephrine HCl 40 mg/Dextrose 500 ml @ 0 mls/hr TITRATE IV Last administered on 01/05/17 17:08; Admin Dose 225 MLS/HR; Start 01/05/17 at 16:00 Vasopressin 60 unit/Dextrose 60 ml @ 1.2 mls/hr Q12H IV ; Start 01/05/17 at 17: 30 Vancomycin HCl/ Sodium Chloride (Vancocin/NS) 250 ml @ 83.333 mls/ hr ONCE IVPB ; Start 01/05/17 at 17:30; Stop 01/05/17 at 23:56 FRANCIS JULES MD Jan 05, 2017 17:39
[2017-01-05] MEDS ORDERED: NA BICARBONATE 8.4% 50 ML SYG ONE (18:10)
[2017-01-05] MEDS ORDERED: EPINEPHrine 4 MG in SOD CHLORIDE 0.9% 246 ML IV SCH (18:30)
--- NOTE | 2017-01-05 18:43 | RADRPT ---
PROCEDURE: XR Chest. CLINICAL INDICATION: The patient is status post intubation. TECHNIQUE: Single frontal view of the chest. COMPARISON: 01/13/2009. FINDINGS: Endotracheal intubation is seen with tip about 15 mm above the kelly. Nasogastric tube in place wi th side port in the region of the gastroesophageal junction, and recommend advancing same about 10 c m and re-imaging. Interval placement of left anterior chest wall cardiac pacer, now abandoned. No i ndwelling leads are seen over the cardiac silhouette. Cardiomegaly. Bilateral lung base atelectasis versus airspace disease. No signs of pleural fluid or pneumothorax are seen. The osseous structures and soft tissues are unremarkable. IMPRESSION: 1. Endotracheal intubation is seen with tip about 15 mm above the kelly. 2. Recommend advancing nasogastric tube about 10 cm and re-imaging. RPTAT: [facility] Physician Juan Jose Date Time Electronically viewed and signed by Physician Juan Jose on 01/05/2017 18:42 RS/
[2017-01-05 19:34] LABS: CREATININE 3.15 mg/dl (0.44-1.00); MAGNESIUM 1.7 mg/dl (1.7-2.5); PHOSPHORUS 2.2 mg/dl (2.5-4.9); POTASSIUM 3.5 mmol/L (3.5-5.1)
[2017-01-05 19:40] LABS: CALCIUM 5.5 mg/dl (8.4-10.2)
[2017-01-05] MEDS ORDERED: TOPIRAMATE 100 MG TAB PO SCH (21:00)
[2017-01-05] MEDS: CALCIUM GLUCONATE 10% 2 GM in SOD CHLORIDE 0.9% 100 ML IVPB SCH (21:25)
[2017-01-05] MEDS ORDERED: MAGNESIUM SULFATE 1 GM/D5W 100 ML IVPB ONE (21:30)
[2017-01-05] MEDS: PHENYLephrine 160 MG in DEXTROSE 5% 484 ML IV SCH (21:56)
[2017-01-05] MEDS ORDERED: SODIUM PHOSPHATE IVPB ONE (23:00)
[2017-01-05] MEDS ORDERED: SOD CHLORIDE 0.9% IVPB ONE (23:00)
[2017-01-06] VITALS (91 sets, daily range): BP systolic 79–140; BP diastolic 58–96; PULSE 124–152; RESP 23–30
[2017-01-06] MEDS: MIDAZOLAM (DRIP) 50 mg/50 mL 50 ML IV SCH ×5 (00:02→23:33)
[2017-01-06] MEDS: PIPER-TAZO 2.25 GM (PMX) 50 ML IVPB SCH ×4 (00:14→22:35)
[2017-01-06] MEDS: CALCIUM GLUCONATE 10% 2 GM in SOD CHLORIDE 0.9% 100 ML IVPB SCH (01:08)
[2017-01-06] MEDS: INSULIN ASPART [NOVOLOG] 3 ML PEN SC SCH ×6 (01:15→20:40)
[2017-01-06] MEDS: ACETAMINOPHEN 650MG/20.3ML CUP NGT PRN (04:29)
[2017-01-06 04:33] LABS: ADD SCAN DIFF NO; HAAIG REFLEX REFLEX FILED
[2017-01-06 04:38] LABS: ABNORMAL IP MESSAGE 1
[2017-01-06 04:56] LABS: INR 1.05; PT RATIO 1.1
[2017-01-06 04:57] LABS: PARTIAL THROMBOPLASTIN TIME 28.6 Sec (25.0-35.0)
[2017-01-06] MEDS: FENTAnyl (DRIP) 1000 mcg/100mL 100 ML IV SCH ×2 (05:07→16:28)
[2017-01-06 06:59] LABS: CALCIUM 6.6 mg/dl (8.4-10.2); CREATININE 3.76 mg/dl (0.44-1.00); POTASSIUM 3.6 mmol/L (3.5-5.1)
--- NOTE | 2017-01-06 07:04 | RADRPT ---
PROCEDURE: XR Chest. CLINICAL INDICATION: Respiratory failure TECHNIQUE: An AP view of the chest was obtained. COMPARISON: Chest x-ray dated 01/05/2017 FINDINGS: Multiple overlying monitor leads obscure evaluation.The endotracheal tube tip is approximately 1.2 cm above the kelly. The tip of the enteric tube extends below the left diaphragm. There are diffuse bilateral interstitial opacities with small bilateral pleural effusions. No foca l airspace opacification or pneumothorax is seen. The cardiomediastinal silhouette is within normal limits for size. The osseous structures demonstrate senescent changes. There is a cervical spine stimulator device within the left chest. IMPRESSION: 1. Diffuse interstitial opacities, new finding when compared to the prior examination. Findings li lola reflect worsening interstitial edema, although pneumonia could have a similar appearance. 2. Small bilateral pleural effusions, increased from prior examination. 3. Tubes and lines, as described above. RPTAT: HH .Priya Gonzalez MD, MD Date Time Electronically viewed and signed by .Priya Gonzalez MD, MD on 01/06/2017 07:03 .Didi/
[2017-01-06 07:28] LABS: ALBUMIN 1.7 g/dl (3.3-4.9); BILIRUBIN,DIRECT 0.4 mg/dl (0.00-0.20); BILIRUBIN,INDIRECT 0.2 mg/dl (0-1.1); BILIRUBIN,TOTAL 0.6 mg/dl (0.2-1.3); TOTAL PROTEIN 3.4 g/dl (6.1-8.1)
[2017-01-06] MEDS: SODIUM BICARBONATE (IV ADD) 100 MEQ in DEXTROSE 5%-0.45% NACL 1,000 ML IV SCH ×3 (07:43→16:03)
[2017-01-06] MEDS: PHENYLephrine 160 MG in DEXTROSE 5% 484 ML IV SCH ×2 (07:43→17:48)
[2017-01-06 07:47] LABS: HEPATITIS B CORE ANTIBODY REACTIVE (NEGATIVE)
[2017-01-06 07:52] LABS: AADO2 Arterial 152.2 mmHg (7.0-24.0); Arterial Base Excess -8.7 mmol/L (-3.0-3); Arterial COHb 0.2 % (0.0-3.0); Arterial Fraction of Oxyhgb 97.1 % (93.0-99.0); Arterial HCO3 14.8 mmol/L (22.0-26.0); Arterial MetHb 0.4 % (0.0-1.5); Arterial Total Hemglobin 13.2 g/dl (12.0-18.0); MODE VENT - AC
[2017-01-06 07:52] LABS: PROTIME 13.7 Sec (12.2-14.2)
--- NOTE | 2017-01-06 07:53 | CONS ---
Date/Time of Note Date/Time of Note DATE: 01/06/17 TIME: 07:51 Assessment/Plan Assessment/Plan Chief Complaint/Hosp Course Admitted with abdominal pain and evidence of severe pancreatitis in otherwise good health. Problems: Additional Assessment/Plan 1. Acute renal failure sec to hypotension, pancreatitis and ?sepsis. 2. Vol expanded with now abnl cxr, will attempt to diurese with bumex drip 3. Hypocalcemia sec to pancreatitis and acute renal failure, P and Mg are pending. Consultation Date/Type/Reason Admit Date/Time Jan 04, 2017 at 19:10 Initial Consult Date 01/05/17 Type of Consultation: Renal Referring Provider: YING CASTAÑEDA 24 HR Interval Summary Subjective hx not possible: other (Intubated and sedated) Exam/Review of Systems Vital Signs Vitals Vital Signs Date Time Temp Pulse Resp B/P Pulse Ox O2 Delivery O2 Flow Rate FiO2 01/06/17 06:15 100.0 01/06/17 06:15 144 30 101/72 100 01/06/17 06:00 Mechanical Ventilator 01/06/17 05:43 40 01/05/17 03:00 2.0 Intake and Output 01/05/17 01/05/17 01/06/17 15:00 23:00 07:00 Intake Total 2657.50 ml 3296.95 ml 2062.97 ml Output Total 20 ml 50 ml 60 ml Balance 2637.50 ml 3246.95 ml 2002.97 ml Exam Neck: No jvd Respiratory: diminished breath sounds Cardiovascular: regular rate and rhythm Gastrointestinal: other (sl distended), No hepatomegaly, No splenomegaly Extremities: edema (extremities and sacrum) Results Result Diagram: 01/06/17 0610 01/06/17 0400 Results 24 hrs Laboratory Tests Test 01/05/17 09:08 01/05/17 14:27 01/05/17 15:16 01/05/17 16:00 Bedside Glucose 133 120 White Blood Count 11.8 #H Red Blood Count 4.21 Hemoglobin 12.9 Hematocrit 38.6 Mean Corpuscular Volume 91.7 Mean Corpuscular Hemoglobin 30.6 Mean Corpuscular Hemoglobin Concent 33.4 Red Cell Distribution Width 15.0 H Platelet Count 367 Mean Platelet Volume 9.6 Neutrophils % 59.0 Band Neutrophils % 10.0 H Lymphocytes % 26.0 Monocytes % 5.0 Eosinophils % Neutrophils # 7.0 Lymphocytes # 3.1 H Monocytes # 0.6 Eosinophils # Sodium Level 144 Potassium Level 3.9 Chloride Level 118 H Carbon Dioxide Level 16 L Anion Gap 14 Blood Urea Nitrogen 33 H Creatinine 2.92 #H Glucose Level 211 Lactic Acid Level 4.4 *H Calcium Level 5.7 *L Amylase Level 2037 #H Lipase 7291 H Phenytoin (Dilantin) Level 5.4 L Blood Gas Specimen Source Blood arterial Arterial Blood Date Drawn 01/05/2017 4:19:05 PM Arterial Blood pH (Temp corrected) 7.317 L Arterial Blood pCO2 (Temp correct) 23.0 L Arterial Blood pO2 (Temp corrected) 126.4 H Arterial Blood HCO3 11.5 L Arterial Blood Base Excess -12.6 L Arterial Blood Oxygen Saturation 98.0 Rashad Test N/A Arterial Blood Gas Puncture Site LB Arterial Blood Carboxyhemoglobin 0.3 Arterial Blood Methemoglobin 0.4 Blood Gas A-a O2 Differential 204.2 H Oxyhemoglobin Percent 97.3 Total Hemoglobin 13.9 Blood Gas Temperature 37.0 Blood Gas Respiration Rate 30.0 Blood Gas Actual Respiration Rate 30 Blood Gas Modality VENT - AC FiO2 50.0 Blood Gas Tidal Volume 450.0 Blood Gas Low PEEP Setting 5.0 Blood Gas Notified Whom M.D. Blood Gas Notified Time 01/05/2017 4:26:44 PM Test 01/05/17 17:00 01/05/17 17:04 01/05/17 18:55 01/05/17 20:44 Urine Random Sodium 27 L Bedside Glucose 132 232 H Sodium Level 140 Potassium Level 3.5 Chloride Level 111 H Carbon Dioxide Level 19 L Anion Gap 14 Blood Urea Nitrogen 34 H Creatinine 3.15 H Glucose Level 321 H Calcium Level 5.5 *L Phosphorus Level 2.2 #L Magnesium Level 1.7 Test 01/06/17 01:08 01/06/17 04:00 01/06/17 05:34 01/06/17 06:10 Bedside Glucose 190 200 White Blood Count 12.5 H 10.8 Red Blood Count 3.34 #L 3.87 L Hemoglobin 9.4 #L 11.6 #L Hematocrit 30.0 #L 35.4 L Mean Corpuscular Volume 89.8 91.5 Mean Corpuscular Hemoglobin 28.1 L 30.0 Mean Corpuscular Hemoglobin Concent 31.3 L 32.8 Red Cell Distribution Width 12.5 14.9 H Platelet Count 279 # 275 Mean Platelet Volume 12.0 #H 10.0 Neutrophils % 54.8 Lymphocytes % 26.2 Monocytes % 7.6 Eosinophils % 0.1 Basophils % 0.1 Nucleated Red Blood Cells % 0.0 Neutrophils # 6.9 Lymphocytes # 3.3 H Monocytes # 1.0 H Eosinophils # 0.0 Basophils # 0.0 Nucleated Red Blood Cells # 0.0 Prothrombin Time Pending Prothrombin Time Ratio 1.1 INR International Normalized Ratio 1.05 Activated Partial Thromboplast Time 28.6 Sodium Level 138 Potassium Level 3.6 Chloride Level 105 Carbon Dioxide Level 19 L Anion Gap 18 H Blood Urea Nitrogen 38 H Creatinine 3.76 H Glucose Level 288 H Lactic Acid Level 4.0 H Calcium Level 6.6 L Total Bilirubin 0.6 Direct Bilirubin 0.40 #H Indirect Bilirubin 0.2 Aspartate Amino Transf (AST/SGOT) 244 H Alanine Aminotransferase (ALT/SGPT) 144 H Alkaline Phosphatase 94 Total Protein 3.4 #L Albumin 1.7 L Amylase Level 1138 #H Lipase 3400 H Hepatitis B Surface Antigen NEGATIVE Hepatitis B Core Total Antibody Pending Hepatitis C Antibody Pending Medications Medications Current Medications Ondansetron HCl (Zofran Inj) 4 mg Q6H PRN IV NAUSEA AND/OR VOMITING; Start 01/04 at 19:30 Acetaminophen/ Hydrocodone Bitart ([place] (5/325)) 1 tab Q6H PRN PO MODERATE PAIN LEVEL 4-6; Start 01/04/17 at 19:30 Morphine Sulfate (morphine) 2 mg Q4H PRN IV SEVERE PAIN LEVEL 7-10 Last administered on 01/04/17 23:51; Admin Dose 2 MG; Start 01/04/17 at 19:30 Docusate Sodium (Colace) 100 mg Q12H PRN PO CONSTIPATION; Start 01/04/17 at 19: 30 Magnesium Hydroxide (Milk Of Mag) 30 ml DAILY PRN PO CONSTIPATION; Start at 19:30 Sodium Biphosphate/ Sodium Phosphate (Fleet Enema) 133 ml DAILY PRN [place] CONSTIPATION; Start 01/04/17 at 19:30 Heparin Sodium (Porcine) (Heparin (5000 Units/0.5 ml)) 5,000 unit Q12 SC Last administered on 01/05/17 20:39; Admin Dose 5,000 UNIT; Start 01/04/17 at 21:00 Lorazepam (Ativan) 0.5 mg Q6H PRN IV ANXIETY; Start 01/04/17 at 19:30 Hydralazine HCl (Apresoline) 10 mg Q6H PRN IV ELEVATED BLOOD PRESSURE; Start at 19:30 Nitroglycerin (Nitroglycerin (Sl Tab) 0.4 Mg) 1 tab Q5M PRN SL ANGINA; Start at 19:30 Insulin Aspart (Novolog Insulin Pen) NOVOLOG *MILD* ALGORI... Q4 SC Last administered on 01/06/17 05:38; Admin Dose 2 UNIT; Start 01/04/17 at 21:00 Phenobarbital (Luminal) 64.8 mg BID PO Last administered on 01/04/17 23:45; Admin Dose 64.8 MG; Start 01/04/17 at 21:00; Status Future Hold Topiramate (Topamax) 200 mg BID PO ; Start 01/05/17 at 21:00; Status Future Hold Miscellaneous Information 1 ea NOTE XX ; Start 01/04/17 at 19:30 Glucose (Glutose) 15 gm Q15M PRN PO DECREASED GLUCOSE; Start 01/04/17 at 19:30 Glucose (Glutose) 22.5 gm Q15M PRN PO DECREASED GLUCOSE; Start 01/04/17 at 19:30 Dextrose (D50w Syringe) 25 ml Q15M PRN IV DECREASED GLUCOSE; Start 01/04/17 at 19:30 Dextrose (D50w Syringe) 50 ml Q15M PRN IV DECREASED GLUCOSE; Start 01/04/17 at 19:30 Glucagon (Glucagen) 1 mg Q15M PRN IM DECREASED GLUCOSE; Start 01/04/17 at 19:30 Glucose (Glutose) 15 gm Q15M PRN BUCCAL DECREASED GLUCOSE; Start 01/04/17 at 19: 30 Phenytoin (Dilantin Susp Cup) 100 mg TID PO Last administered on 01/04/17 23:44 ; Admin Dose 100 MG; Start 01/04/17 at 21:50; Status Future Hold Clonazepam 0.5 mg 0.5 mg Q8H PO Last administered on 01/04/17 23:45; Admin Dose 0.5 MG; Start 01/04/17 at 23:00; Status Future Hold Norepinephrine 16 mg/Dextrose 500 ml @ 1.87 mls/hr TITRATE IV Last administered on 01/06/17 06:39; Admin Dose 52.5 MLS/HR; Start 01/05/17 at 00:30 Fentanyl 100 ml @ 2.5 mls/hr TITRATE IV Last administered on 01/06/17 05:07; Admin Dose 7.5 MLS/HR; Start 01/05/17 at 08:39 Midazolam HCl 50 ml @ 1 mls/hr TITRATE IV Last administered on 01/06/17 06:34; Admin Dose 8 MLS/HR; Start 01/05/17 at 08:41 Levetiracetam 100 ml @ 400 mls/hr Q12 IVPB Last administered on 01/05/17 20:38 ; Admin Dose 400 MLS/HR; Start 01/05/17 at 11:30 Sodium Bicarbonate 100 meq/Dextrose/ Sodium Chloride 1,100 ml @ 125 mls/hr Q8H48M IV Last administered on 01/05/17 21:18; Admin Dose 125 MLS/HR; Start 01/05/17 at 11:39 Vasopressin 60 unit/Dextrose 60 ml @ 1.2 mls/hr Q12H IV Last administered on 22:32; Admin Dose 2.4 MLS/HR; Start 01/05/17 at 17:30 Epinephrine 4 mg/ Sodium Chloride 250 ml @ 0 mls/hr TITRATE IV ; Start 01/05/17 at 18:30 Piperacillin Sod/ Tazobactam Sod 50 ml @ 100 mls/hr Q6 IVPB Last administered on 01/06/17 05:39; Admin Dose 100 MLS/HR; Start 01/06/17 at 00:00 Phenylephrine HCl/ Dextrose (Robert-Syneph/D5W) 500 ml @ 18.75 mls/ hr TITRATE IV Last administered on 01/05/17 21:56; Admin Dose 56.25 MLS/HR; Start 01/05/17 at 20:30 Acetaminophen (Tylenol Liquid) 650 mg Q4H PRN NGT PAIN AND OR ELEVATED TEMP Last administered on 01/06/17 04:29; Admin Dose 650 MG; Start 7/7/17 at 04:30 FRANCIS JULES MD Jan 06, 2017 07:53
[2017-01-06] MEDS ORDERED: CA CHLORIDE 10% 10 ML SYRINGE IV ONE (08:00)
[2017-01-06 08:03] LABS: WHITE BLOOD COUNT 10.8 10^3/ul (4.8-10.8)
[2017-01-06 08:04] LABS: HEMOGLOBIN 11.6 g/dl (12.0-16.0); RED BLOOD COUNT 3.87 10^6/ul (4.20-5.40)
[2017-01-06 08:05] LABS: HEMATOCRIT 35.4 % (37.0-47.0); MEAN CORPUSCULAR VOLUME 91.5 fl (82.0-101.0)
[2017-01-06 08:06] LABS: MEAN CORPUSCULAR HGB CONC 32.8 g/dl (32.0-37.0); PLATELET COUNT 275 10^3/UL (140-415); RED CELL DISTRIBUTION WIDTH 14.9 % (11.5-14.5)
[2017-01-06] MEDS: LEVETIRACETAM 1000 MG (PMX) 100 ML IVPB SCH ×2 (08:39→20:32)
[2017-01-06] MEDS: HEPARIN 5,000 UNIT/0.5 ML VIAL SC SCH ×2 (08:43→20:39)
[2017-01-06 08:46] LABS: MAGNESIUM 1.8 mg/dl (1.7-2.5); PHOSPHORUS 3.2 mg/dl (2.5-4.9)
[2017-01-06] MEDS ORDERED: BUMETANIDE 12 MG in DEXTROSE 5% 72 ML IV ONE (09:00)
[2017-01-06] MEDS ORDERED: CALCIUM GLUCONATE 10% 2 GM in SOD CHLORIDE 0.9% 100 ML IVPB ONE (09:30)
[2017-01-06 11:42] LABS: BASOPHIL # 0.1 10^3/ul (0.0-0.1); LYMPHOCYTES # 1.4 10^3/ul (0.8-2.9); MONOCYTE # 0.3 10^3/ul (0.3-0.9)
--- NOTE | 2017-01-06 12:09 | PN ---
Date/Time of Note Date/Time of Note DATE: 01/06/17 TIME: 12:05 Assessment/Plan VTE Prophylaxis VTE Prophylaxis Intervention: heparin Assessment/Plan Chief Complaint/Hosp Course 1. Severe shock secondary to severe Pancreatitis and/or sepsis from staph bacteremia Ultrasound shows no gallstones but CT abdomen shows biliary ductal dilation without gallstones LFTs are elevated as is lipase GI consultation appreciated, patient is unstable for MRCP at this time Patient is now on 2 pressors and BP has stabilized Continue broad-spectrum antibiotics with vancomycin and Zosyn Urine culture is positive for E. coli but UA does not show significant pyuria, one blood culture is positive for staph, continue broad-spectrum antibiotics Dilantin level is low 2. Seizure disorder on multiple medications Continue Keppra IV No report of seizures prior to arrival, no seizures in house 3. Multiple electrolyte abnormalities Replete as needed 4. Transaminitis secondary to medication overdose versus shock liver versus choledocholithiasis: LFTs are increasing Hepatitis panel is negative GI consultation appreciated Monitor 5. LEONOR secondary to shock Nephrology consultation Continue IV fluids Prophylaxis: Heparin Problems: Subjective 24 Hr Interval Summary Subjective hx not possible: pt non-verbal Exam/Review of Systems Vital Signs Vitals Vital Signs Date Time Temp Pulse Resp B/P Pulse Ox O2 Delivery O2 Flow Rate FiO2 01/06/17 09:45 134 24 111/59 99 01/06/17 09:00 Mechanical Ventilator 01/06/17 08:00 40 01/06/17 08:00 99.1 01/05/17 03:00 2.0 Intake and Output 01/05/17 01/05/17 01/06/17 15:00 23:00 07:00 Intake Total 2657.50 ml 3296.95 ml 2062.97 ml Output Total 20 ml 50 ml 60 ml Balance 2637.50 ml 3246.95 ml 2002.97 ml Exam Constitutional: non-verbal ENMT: intubated Respiratory: clear to auscultation Cardiovascular: regular rate and rhythm Gastrointestinal: soft, No distended Musculoskeletal: nl extremities to inspection Results Result Diagram: 01/06/17 0400 01/06/17 0400 Results 24 hrs Laboratory Tests Test 01/05/17 14:27 01/05/17 15:16 01/05/17 16:00 01/05/17 17:00 Bedside Glucose 120 White Blood Count 11.8 #H Red Blood Count 4.21 Hemoglobin 12.9 Hematocrit 38.6 Mean Corpuscular Volume 91.7 Mean Corpuscular Hemoglobin 30.6 Mean Corpuscular Hemoglobin Concent 33.4 Red Cell Distribution Width 15.0 H Platelet Count 367 Mean Platelet Volume 9.6 Neutrophils % 59.0 Band Neutrophils % 10.0 H Lymphocytes % 26.0 Monocytes % 5.0 Eosinophils % Neutrophils # 7.0 Lymphocytes # 3.1 H Monocytes # 0.6 Eosinophils # Sodium Level 144 Potassium Level 3.9 Chloride Level 118 H Carbon Dioxide Level 16 L Anion Gap 14 Blood Urea Nitrogen 33 H Creatinine 2.92 #H Glucose Level 211 Lactic Acid Level 4.4 *H Calcium Level 5.7 *L Amylase Level 2037 #H Lipase 7291 H Phenytoin (Dilantin) Level 5.4 L Blood Gas Specimen Source Blood arterial Arterial Blood Date Drawn 01/05/2017 4:19:05 PM Arterial Blood pH (Temp corrected) 7.317 L Arterial Blood pCO2 (Temp correct) 23.0 L Arterial Blood pO2 (Temp corrected) 126.4 H Arterial Blood HCO3 11.5 L Arterial Blood Base Excess -12.6 L Arterial Blood Oxygen Saturation 98.0 Rashad Test N/A Arterial Blood Gas Puncture Site LB Arterial Blood Carboxyhemoglobin 0.3 Arterial Blood Methemoglobin 0.4 Blood Gas A-a O2 Differential 204.2 H Oxyhemoglobin Percent 97.3 Total Hemoglobin 13.9 Blood Gas Temperature 37.0 Blood Gas Respiration Rate 30.0 Blood Gas Actual Respiration Rate 30 Blood Gas Modality VENT - AC FiO2 50.0 Blood Gas Tidal Volume 450.0 Blood Gas Low PEEP Setting 5.0 Blood Gas Notified Whom M.D. Blood Gas Notified Time 01/05/2017 4:26:44 PM Urine Random Sodium 27 L Test 01/05/17 17:04 01/05/17 18:55 01/05/17 20:44 01/06/17 01:08 Bedside Glucose 132 232 H 190 Sodium Level 140 Potassium Level 3.5 Chloride Level 111 H Carbon Dioxide Level 19 L Anion Gap 14 Blood Urea Nitrogen 34 H Creatinine 3.15 H Glucose Level 321 H Calcium Level 5.5 *L Phosphorus Level 2.2 #L Magnesium Level 1.7 Test 01/06/17 04:00 01/06/17 05:34 01/06/17 07:00 01/06/17 08:35 White Blood Count 10.8 Red Blood Count 3.87 L Hemoglobin 11.6 L Hematocrit 35.4 L Mean Corpuscular Volume 91.5 Mean Corpuscular Hemoglobin 30.0 Mean Corpuscular Hemoglobin Concent 32.8 Red Cell Distribution Width 14.9 H Platelet Count 275 # Mean Platelet Volume 10.0 Neutrophils % 46.0 Band Neutrophils % 37.0 H Lymphocytes % 13.0 L Monocytes % 3.0 Eosinophils % Basophils % 1.0 Nucleated Red Blood Cells % Neutrophils # 5.0 Lymphocytes # 1.4 Monocytes # 0.3 Eosinophils # Basophils # 0.1 Nucleated Red Blood Cells # Prothrombin Time 13.7 # Prothrombin Time Ratio 1.1 INR International Normalized Ratio 1.05 Activated Partial Thromboplast Time 28.6 Sodium Level 138 Potassium Level 3.6 Chloride Level 105 Carbon Dioxide Level 19 L Anion Gap 18 H Blood Urea Nitrogen 38 H Creatinine 3.76 H Glucose Level 288 H Lactic Acid Level 4.0 H Calcium Level 6.6 L Phosphorus Level 3.2 Magnesium Level 1.8 Total Bilirubin 0.6 Direct Bilirubin 0.40 #H Indirect Bilirubin 0.2 Aspartate Amino Transf (AST/SGOT) 244 H Alanine Aminotransferase (ALT/SGPT) 144 H Alkaline Phosphatase 94 Total Protein 3.4 #L Albumin 1.7 L Amylase Level 1138 #H Lipase 3400 H Hepatitis B Surface Antigen NEGATIVE Hepatitis B Core Total Antibody REACTIVE H Hepatitis C Antibody NEGATIVE Bedside Glucose 200 197 Blood Gas Specimen Source Blood arterial Arterial Blood Date Drawn 01/06/2017 7:19:27 AM Arterial Blood pH (Temp corrected) 7.376 Arterial Blood pCO2 (Temp correct) 25.8 L Arterial Blood pO2 (Temp corrected) 103.3 H Arterial Blood HCO3 14.8 L Arterial Blood Base Excess -8.7 L Arterial Blood Oxygen Saturation 97.7 Rashad Test N/A Arterial Blood Gas Puncture Site Right Brachial Arterial Blood Carboxyhemoglobin 0.2 Arterial Blood Methemoglobin 0.4 Blood Gas A-a O2 Differential 152.2 H Oxyhemoglobin Percent 97.1 Total Hemoglobin 13.2 Blood Gas Temperature 37.0 Blood Gas Respiration Rate 30.0 Blood Gas Actual Respiration Rate 30 Blood Gas Modality VENT - AC FiO2 40.0 Blood Gas Tidal Volume 450.0 Blood Gas High PEEP Setting 5.0 Blood Gas Notified Whom TM Blood Gas Notified Time 01/06/2017 7:37:12 AM Medications Medications Current Medications Ondansetron HCl (Zofran Inj) 4 mg Q6H PRN IV NAUSEA AND/OR VOMITING; Start 01/04 at 19:30 Acetaminophen/ Hydrocodone Bitart ([place] (5/325)) 1 tab Q6H PRN PO MODERATE PAIN LEVEL 4-6; Start 01/04/17 at 19:30 Morphine Sulfate (morphine) 2 mg Q4H PRN IV SEVERE PAIN LEVEL 7-10 Last administered on 01/04/17 23:51; Admin Dose 2 MG; Start 01/04/17 at 19:30 Docusate Sodium (Colace) 100 mg Q12H PRN PO CONSTIPATION; Start 01/04/17 at 19: 30 Magnesium Hydroxide (Milk Of Mag) 30 ml DAILY PRN PO CONSTIPATION; Start at 19:30 Sodium Biphosphate/ Sodium Phosphate (Fleet Enema) 133 ml DAILY PRN MD CONSTIPATION; Start 01/04/17 at 19:30 Heparin Sodium (Porcine) (Heparin (5000 Units/0.5 ml)) 5,000 unit Q12 SC Last administered on 01/06/17 08:43; Admin Dose 5,000 UNIT; Start 01/04/17 at 21:00 Lorazepam (Ativan) 0.5 mg Q6H PRN IV ANXIETY; Start 01/04/17 at 19:30 Hydralazine HCl (Apresoline) 10 mg Q6H PRN IV ELEVATED BLOOD PRESSURE; Start at 19:30 Nitroglycerin (Nitroglycerin (Sl Tab) 0.4 Mg) 1 tab Q5M PRN SL ANGINA; Start at 19:30 Insulin Aspart (Novolog Insulin Pen) NOVOLOG *MILD* ALGORI... Q4 SC Last administered on 01/06/17 08:41; Admin Dose 2 UNIT; Start 01/04/17 at 21:00 Phenobarbital (Luminal) 64.8 mg BID PO Last administered on 01/04/17 23:45; Admin Dose 64.8 MG; Start 01/04/17 at 21:00; Status Future Hold Topiramate (Topamax) 200 mg BID PO ; Start 01/05/17 at 21:00; Status Future Hold Miscellaneous Information 1 ea NOTE XX ; Start 01/04/17 at 19:30 Glucose (Glutose) 15 gm Q15M PRN PO DECREASED GLUCOSE; Start 01/04/17 at 19:30 Glucose (Glutose) 22.5 gm Q15M PRN PO DECREASED GLUCOSE; Start 01/04/17 at 19:30 Dextrose (D50w Syringe) 25 ml Q15M PRN IV DECREASED GLUCOSE; Start 01/04/17 at 19:30 Dextrose (D50w Syringe) 50 ml Q15M PRN IV DECREASED GLUCOSE; Start 01/04/17 at 19:30 Glucagon (Glucagen) 1 mg Q15M PRN IM DECREASED GLUCOSE; Start 01/04/17 at 19:30 Glucose (Glutose) 15 gm Q15M PRN BUCCAL DECREASED GLUCOSE; Start 01/04/17 at 19: 30 Phenytoin (Dilantin Susp Cup) 100 mg TID PO Last administered on 01/04/17 23:44 ; Admin Dose 100 MG; Start 01/04/17 at 21:50; Status Future Hold Clonazepam 0.5 mg 0.5 mg Q8H PO Last administered on 01/04/17 23:45; Admin Dose 0.5 MG; Start 01/04/17 at 23:00; Status Future Hold Norepinephrine 16 mg/Dextrose 500 ml @ 1.87 mls/hr TITRATE IV Last administered on 01/06/17 06:39; Admin Dose 52.5 MLS/HR; Start 01/05/17 at 00:30 Fentanyl 100 ml @ 2.5 mls/hr TITRATE IV Last administered on 01/06/17 05:07; Admin Dose 7.5 MLS/HR; Start 01/05/17 at 08:39 Midazolam HCl 50 ml @ 1 mls/hr TITRATE IV Last administered on 01/06/17 06:34; Admin Dose 8 MLS/HR; Start 01/05/17 at 08:41 Levetiracetam 100 ml @ 400 mls/hr Q12 IVPB Last administered on 01/06/17 08:39 ; Admin Dose 400 MLS/HR; Start 01/05/17 at 11:30 Sodium Bicarbonate 100 meq/Dextrose/ Sodium Chloride 1,100 ml @ 20 mls/hr Q24H IV Last administered on 01/06/17 07:43; Admin Dose 20 MLS/HR; Start 01/05/17 at 11:39 Vasopressin 60 unit/Dextrose 60 ml @ 1.2 mls/hr Q12H IV Last administered on 22:32; Admin Dose 2.4 MLS/HR; Start 01/05/17 at 17:30 Epinephrine 4 mg/ Sodium Chloride 250 ml @ 0 mls/hr TITRATE IV ; Start 01/05/17 at 18:30 Phenylephrine HCl/ Dextrose (Robert-Syneph/D5W) 500 ml @ 18.75 mls/ hr TITRATE IV Last administered on 01/06/17 07:43; Admin Dose 56.25 MLS/HR; Start 01/05/17 at 20:30 Acetaminophen 650 mg 650 mg Q4H PRN NGT PAIN AND OR ELEVATED TEMP Last administered on 01/06/17 04:29; Admin Dose 650 MG; Start 01/06/17 at 04:30 Bumetanide 12 mg/ Dextrose/Water 120 ml @ 10 mls/hr Q12H ONCE IV Last administered on 01/06/17 09:40; Admin Dose 10 MLS/HR; Start 01/06/17 at 09:00; Stop 01/06/17 at 20:59 Piperacillin Sod/ Tazobactam Sod (Zosyn 2.25gm/ 50ml (Pmx)) 50 ml @ 100 mls/hr Q8 IVPB ; Start 01/06/17 at 14:00 Miscellaneous Information (*Rx Drug Level Order Reminder*) VANCOMYCIN RANDOM LEVEL ON... ONCE ONCE XX ; Start 01/07/17 at 05:00; Stop 01/07/17 at 05:01 YING CASTAÑEDA Jan 06, 2017 12:09
[2017-01-06] MEDS: INSULIN GLARGINE [LANtus] 3 ML PEN SC SCH (14:12)
[2017-01-06] MEDS: VASOPRESSIN 60 UNIT in DEXTROSE 5% 57 ML IV SCH (17:30)
--- NOTE | 2017-01-06 20:06 | CONS ---
Date/Time of Note Date/Time of Note DATE: 01/06/17 TIME: 20:04 Assessment/Plan Assessment/Plan Chief Complaint/Hosp Course History of abdominal pain and because of that patient came to the emergency room she was found to have acute pancreatitis She also developed respiratory distress sequently she is intubated and she is currently in the intensive care unit Details of the medical history not available because he is intubated and cannot reach the family members Problems: Additional Assessment/Plan a] patient presenting with history of gallstone pancreatitis with resulting respiratory failure Currently patient is intubated plan plan continue supportive measures maintain the fluid balance improve the blood pressure and antibiotics When the patient stabilizes ERCP will be performed Consultation Date/Type/Reason Admit Date/Time Jan 04, 2017 at 19:10 Initial Consult Date 01/05/17 Type of Consultation: Pulmonary ICU Referring Provider: YING CASTAÑEDA 24 HR Interval Summary Free Text/Dictation Is Dr. Murphy dictating the progress note I saw the patient because of abnormal liver functions and biliary dilatation and pancreatitis Patient continues to be intubated The blood pressure still low and she is on 2 vasopressors Exam/Review of Systems Vital Signs Vitals Vital Signs Date Time Temp Pulse Resp B/P Pulse Ox O2 Delivery O2 Flow Rate FiO2 01/06/17 18:00 134 30 109/68 100 Mechanical Ventilator 01/06/17 17:30 40 01/06/17 16:00 98.9 01/05/17 03:00 2.0 Intake and Output 01/05/17 01/05/17 01/06/17 15:00 23:00 07:00 Intake Total 2657.50 ml 3296.95 ml 2062.97 ml Output Total 20 ml 50 ml 60 ml Balance 2637.50 ml 3246.95 ml 2002.97 ml Exam Blood pressure still maintained with the vasopressors And is unresponsive Abdomen is unremarkable Results Result Diagram: 01/06/17 0400 01/06/17 1757 Results 24 hrs Laboratory Tests Test 01/05/17 20:44 01/06/17 01:08 01/06/17 04:00 01/06/17 05:34 Bedside Glucose 232 H 190 200 White Blood Count 10.8 Red Blood Count 3.87 L Hemoglobin 11.6 L Hematocrit 35.4 L Mean Corpuscular Volume 91.5 Mean Corpuscular Hemoglobin 30.0 Mean Corpuscular Hemoglobin Concent 32.8 Red Cell Distribution Width 14.9 H Platelet Count 275 # Mean Platelet Volume 10.0 Neutrophils % 46.0 Band Neutrophils % 37.0 H Lymphocytes % 13.0 L Monocytes % 3.0 Eosinophils % Basophils % 1.0 Nucleated Red Blood Cells % Neutrophils # 5.0 Lymphocytes # 1.4 Monocytes # 0.3 Eosinophils # Basophils # 0.1 Nucleated Red Blood Cells # Prothrombin Time 13.7 # Prothrombin Time Ratio 1.1 INR International Normalized Ratio 1.05 Activated Partial Thromboplast Time 28.6 Sodium Level 138 Potassium Level 3.6 Chloride Level 105 Carbon Dioxide Level 19 L Anion Gap 18 H Blood Urea Nitrogen 38 H Creatinine 3.76 H Glucose Level 288 H Lactic Acid Level 4.0 H Calcium Level 6.6 L Phosphorus Level 3.2 Magnesium Level 1.8 Total Bilirubin 0.6 Direct Bilirubin 0.40 #H Indirect Bilirubin 0.2 Aspartate Amino Transf (AST/SGOT) 244 H Alanine Aminotransferase (ALT/SGPT) 144 H Alkaline Phosphatase 94 Total Protein 3.4 #L Albumin 1.7 L Amylase Level 1138 #H Lipase 3400 H Hepatitis B Surface Antigen NEGATIVE Hepatitis B Core Total Antibody REACTIVE H Hepatitis C Antibody NEGATIVE Test 01/06/17 07:00 01/06/17 08:35 01/06/17 12:36 01/06/17 16:32 Blood Gas Specimen Source Blood arterial Arterial Blood Date Drawn 01/06/2017 7:19:27 AM Arterial Blood pH (Temp corrected) 7.376 Arterial Blood pCO2 (Temp correct) 25.8 L Arterial Blood pO2 (Temp corrected) 103.3 H Arterial Blood HCO3 14.8 L Arterial Blood Base Excess -8.7 L Arterial Blood Oxygen Saturation 97.7 Rashad Test N/A Arterial Blood Gas Puncture Site Right Brachial Arterial Blood Carboxyhemoglobin 0.2 Arterial Blood Methemoglobin 0.4 Blood Gas A-a O2 Differential 152.2 H Oxyhemoglobin Percent 97.1 Total Hemoglobin 13.2 Blood Gas Temperature 37.0 Blood Gas Respiration Rate 30.0 Blood Gas Actual Respiration Rate 30 Blood Gas Modality VENT - AC FiO2 40.0 Blood Gas Tidal Volume 450.0 Blood Gas High PEEP Setting 5.0 Blood Gas Notified Whom TM Blood Gas Notified Time 01/06/2017 7:37:12 AM Bedside Glucose 197 224 H 211 Test 01/06/17 17:57 Potassium Level 3.4 L Calcium Level 6.2 L Medications Medications Current Medications Ondansetron HCl (Zofran Inj) 4 mg Q6H PRN IV NAUSEA AND/OR VOMITING; Start 01/04 at 19:30 Acetaminophen/ Hydrocodone Bitart ([place] (5/325)) 1 tab Q6H PRN PO MODERATE PAIN LEVEL 4-6; Start 01/04/17 at 19:30 Morphine Sulfate (morphine) 2 mg Q4H PRN IV SEVERE PAIN LEVEL 7-10 Last administered on 01/04/17 23:51; Admin Dose 2 MG; Start 01/04/17 at 19:30 Docusate Sodium (Colace) 100 mg Q12H PRN PO CONSTIPATION; Start 01/04/17 at 19: 30 Magnesium Hydroxide (Milk Of Mag) 30 ml DAILY PRN PO CONSTIPATION; Start at 19:30 Sodium Biphosphate/ Sodium Phosphate (Fleet Enema) [address] CONSTIPATION; Start 01/04/17 at 19:30 Heparin Sodium (Porcine) (Heparin (5000 Units/0.5 ml)) 5,000 unit Q12 SC Last administered on 01/06/17 08:43; Admin Dose 5,000 UNIT; Start 01/04/17 at 21:00 Lorazepam (Ativan) 0.5 mg Q6H PRN IV ANXIETY; Start 01/04/17 at 19:30 Hydralazine HCl (Apresoline) 10 mg Q6H PRN IV ELEVATED BLOOD PRESSURE; Start at 19:30 Nitroglycerin (Nitroglycerin (Sl Tab) 0.4 Mg) 1 tab Q5M PRN SL ANGINA; Start at 19:30 Insulin Aspart (Novolog Insulin Pen) NOVOLOG *MILD* ALGORI... Q4 SC Last administered on 01/06/17 16:36; Admin Dose 2 UNIT; Start 01/04/17 at 21:00 Phenobarbital (Luminal) 64.8 mg BID PO Last administered on 01/04/17 23:45; Admin Dose 64.8 MG; Start 01/04/17 at 21:00; Status Future Hold Topiramate (Topamax) 200 mg BID PO ; Start 01/05/17 at 21:00; Status Future Hold Miscellaneous Information 1 ea NOTE XX ; Start 01/04/17 at 19:30 Glucose (Glutose) 15 gm Q15M PRN PO DECREASED GLUCOSE; Start 01/04/17 at 19:30 Glucose (Glutose) 22.5 gm Q15M PRN PO DECREASED GLUCOSE; Start 01/04/17 at 19:30 Dextrose (D50w Syringe) 25 ml Q15M PRN IV DECREASED GLUCOSE; Start 01/04/17 at 19:30 Dextrose (D50w Syringe) 50 ml Q15M PRN IV DECREASED GLUCOSE; Start 01/04/17 at 19:30 Glucagon (Glucagen) 1 mg Q15M PRN IM DECREASED GLUCOSE; Start 01/04/17 at 19:30 Glucose (Glutose) 15 gm Q15M PRN BUCCAL DECREASED GLUCOSE; Start 01/04/17 at 19: 30 Phenytoin (Dilantin Susp Cup) 100 mg TID PO Last administered on 01/04/17 23:44 ; Admin Dose 100 MG; Start 01/04/17 at 21:50; Status Future Hold Clonazepam 0.5 mg 0.5 mg Q8H PO Last administered on 01/04/17 23:45; Admin Dose 0.5 MG; Start 01/04/17 at 23:00; Status Future Hold Norepinephrine 16 mg/Dextrose 500 ml @ 1.87 mls/hr TITRATE IV Last administered on 01/06/17 06:39; Admin Dose 52.5 MLS/HR; Start 01/05/17 at 00:30 Fentanyl 100 ml @ 2.5 mls/hr TITRATE IV Last administered on 01/06/17 16:28; Admin Dose 7.5 MLS/HR; Start 01/05/17 at 08:39 Midazolam HCl 50 ml @ 1 mls/hr TITRATE IV Last administered on 01/06/17 17:59; Admin Dose 10 MLS/HR; Start 01/05/17 at 08:41 Levetiracetam 100 ml @ 400 mls/hr Q12 IVPB Last administered on 01/06/17 08:39 ; Admin Dose 400 MLS/HR; Start 01/05/17 at 11:30 Sodium Bicarbonate 100 meq/Dextrose/ Sodium Chloride 1,100 ml @ 20 mls/hr Q24H IV Last administered on 01/06/17 16:03; Admin Dose 20 MLS/HR; Start 01/05/17 at 11:39 Vasopressin 60 unit/Dextrose 60 ml @ 1.2 mls/hr Q12H IV Last administered on 22:32; Admin Dose 2.4 MLS/HR; Start 01/05/17 at 17:30 Epinephrine 4 mg/ Sodium Chloride 250 ml @ 0 mls/hr TITRATE IV ; Start 01/05/17 at 18:30 Phenylephrine HCl/ Dextrose (Robert-Syneph/D5W) 500 ml @ 18.75 mls/ hr TITRATE IV Last administered on 01/06/17 17:48; Admin Dose 56.25 MLS/HR; Start 01/05/17 at 20:30 Acetaminophen 650 mg 650 mg Q4H PRN NGT PAIN AND OR ELEVATED TEMP Last administered on 01/06/17 04:29; Admin Dose 650 MG; Start 01/06/17 at 04:30 Bumetanide 12 mg/ Dextrose/Water 120 ml @ 10 mls/hr Q12H ONCE IV Last administered on 01/06/17 09:40; Admin Dose 10 MLS/HR; Start 01/06/17 at 09:00; Stop 01/06/17 at 20:59 Piperacillin Sod/ Tazobactam Sod (Zosyn 2.25gm/ 50ml (Pmx)) 50 ml @ 100 mls/hr Q8 IVPB Last administered on 01/06/17 14:12; Admin Dose 100 MLS/HR; Start at 14:00 Miscellaneous Information (*Rx Drug Level Order Reminder*) VANCOMYCIN RANDOM LEVEL ON... ONCE ONCE XX ; Start 01/07/17 at 05:00; Stop 01/07/17 at 05:01 Insulin Glargine (Lantus) 10 unit DAILY SC Last administered on 01/06/17 14:12 ; Admin Dose 10 UNIT; Start 01/06/17 at 14:00 MYNOR MURPHY MD Jan 06, 2017 20:06
[2017-01-06] MEDS ORDERED: POTASSIUM CHLORIDE 20 MEQ in SOD CHLORIDE 0.9% 100 ML IVPB ONE (23:00)
[2017-01-07] VITALS (107 sets, daily range): BP systolic 75–132; BP diastolic 44–82; PULSE 88–134; RESP 24–31
[2017-01-07] MEDS: INSULIN ASPART [NOVOLOG] 3 ML PEN SC SCH ×6 (01:00→20:45)
[2017-01-07] MEDS: PHENYLephrine 160 MG in DEXTROSE 5% 484 ML IV SCH ×3 (02:37→23:21)
[2017-01-07 05:11] LABS: ADD SCAN DIFF NO
[2017-01-07 05:18] LABS: BASOPHILS % 0.4 % (0.0-2.0); EOSINOPHILS % 0.2 % (0.0-7.0); HEMOGLOBIN 10.3 g/dl (12.0-16.0); LYMPHOCYTES % 10.9 % (15.0-51.0); MEAN CORPUSCULAR HEMOGLOBIN 30.1 pg (29.0-33.0); MEAN CORPUSCULAR HGB CONC 33.2 g/dl (32.0-37.0); MEAN CORPUSCULAR VOLUME 90.6 fl (82.0-101.0); MEAN PLATELET VOLUME 10.1 fl (7.4-10.4); MONOCYTE # 0.5 10^3/ul (0.3-0.9); MONOCYTES % 5.4 % (0.0-11.0); NEUTROPHIL # 7.6 10^3/ul (1.6-7.5); NEUTROPHILS % 81.7 % (39.0-77.0); PLATELET COUNT 189 10^3/UL (140-415); RED BLOOD COUNT 3.42 10^6/ul (4.20-5.40); RED CELL DISTRIBUTION WIDTH 14.6 % (11.5-14.5)
[2017-01-07] MEDS: VASOPRESSIN 60 UNIT in DEXTROSE 5% 57 ML IV SCH ×2 (05:30→16:39)
[2017-01-07 05:33] LABS: WHITE BLOOD COUNT 9.3 10^3/ul (4.8-10.8)
[2017-01-07] MEDS: PIPER-TAZO 2.25 GM (PMX) 50 ML IVPB SCH ×3 (05:34→22:12)
[2017-01-07] MEDS: FENTAnyl (DRIP) 1000 mcg/100mL 100 ML IV SCH ×3 (05:34→23:16)
[2017-01-07 05:42] LABS: MAGNESIUM 1.6 mg/dl (1.7-2.5); PHOSPHORUS 4.6 mg/dl (2.5-4.9)
[2017-01-07 05:56] LABS: CALCIUM 6.4 mg/dl (8.4-10.2); CREATININE 4.86 mg/dl (0.44-1.00); POTASSIUM 3.8 mmol/L (3.5-5.1)
[2017-01-07] MEDS: MIDAZOLAM (DRIP) 50 mg/50 mL 50 ML IV SCH ×4 (06:28→23:14)
[2017-01-07 06:55] LABS: ALBUMIN 2.3 g/dl (3.3-4.9); BILIRUBIN,DIRECT 1.4 mg/dl (0.00-0.20); BILIRUBIN,INDIRECT 0.2 mg/dl (0-1.1); BILIRUBIN,TOTAL 1.6 mg/dl (0.2-1.3); TOTAL PROTEIN 4.6 g/dl (6.1-8.1)
[2017-01-07] MEDS: LEVETIRACETAM 1000 MG (PMX) 100 ML IVPB SCH ×2 (08:16→20:46)
[2017-01-07] MEDS: HEPARIN 5,000 UNIT/0.5 ML VIAL SC SCH ×2 (08:17→20:41)
[2017-01-07] MEDS: INSULIN GLARGINE [LANtus] 3 ML PEN SC SCH (08:19)
--- NOTE | 2017-01-07 09:16 | CONS ---
Date/Time of Note Date/Time of Note DATE: 01/07/17 TIME: 09:13 Consult Date/Type/Reason Admit Date/Time Jan 04, 2017 at 19:10 Initial Consult Date 01/05/17 Type of Consultation: Pulmonary ICU Ordering Provider: YING CASTAÑEDA Subjective Sedated on mechanical vent. On neosynephrine gtt. Objective Vital Signs Date Time Temp Pulse Resp B/P Pulse Ox O2 Delivery O2 Flow Rate FiO2 01/07/17 08:30 112 30 95/65 100 Mechanical Ventilator 01/07/17 08:00 99.1 01/07/17 05:40 30 01/05/17 03:00 2.0 Intake and Output 01/06/17 01/06/17 01/07/17 15:00 23:00 07:00 Intake Total 1301.97 ml 1144.99 ml 762.47 ml Output Total 195 ml 265 ml 270 ml Balance 1106.97 ml 879.99 ml 492.47 ml Exam HEENT: Pupils equal, round, and reactive to light. CARDIAC: S1, S2, 1/6 systolic ejection murmur CHEST: Diminished air entry bilaterally. ABDOMEN: Mildly distended. Bowel sounds diminished no guarding or rebound EXTREMITIES: No cyanosis, clubbing edema +1 Results/Medications Result Diagram: 01/07/17 0440 01/07/17 0440 Results 24 hrs Laboratory Tests Test 01/06/17 12:36 01/06/17 16:32 01/06/17 17:57 01/06/17 20:38 Bedside Glucose 224 H 211 144 Potassium Level 3.4 L Calcium Level 6.2 L Test 01/07/17 01:06 01/07/17 04:40 01/07/17 05:24 01/07/17 08:10 Bedside Glucose 114 101 109 White Blood Count 9.3 Red Blood Count 3.42 L Hemoglobin 10.3 L Hematocrit 31.0 L Mean Corpuscular Volume 90.6 Mean Corpuscular Hemoglobin 30.1 Mean Corpuscular Hemoglobin Concent 33.2 Red Cell Distribution Width 14.6 H Platelet Count 189 # Mean Platelet Volume 10.1 Neutrophils % 81.7 H Lymphocytes % 10.9 L Monocytes % 5.4 Eosinophils % 0.2 Basophils % 0.4 Nucleated Red Blood Cells % 0.0 Neutrophils # 7.6 H Lymphocytes # 1.0 Monocytes # 0.5 Eosinophils # 0.0 Basophils # 0.0 Nucleated Red Blood Cells # 0.0 Sodium Level 136 Potassium Level 3.8 Chloride Level 101 Carbon Dioxide Level 17 L Anion Gap 22 H Blood Urea Nitrogen 44 H Creatinine 4.86 #H Glucose Level 148 # Calcium Level 6.4 L Phosphorus Level 4.6 Magnesium Level 1.6 L Total Bilirubin 1.6 H Direct Bilirubin 1.40 #H Indirect Bilirubin 0.2 Aspartate Amino Transf (AST/SGOT) 153 H Alanine Aminotransferase (ALT/SGPT) 131 H Alkaline Phosphatase 138 H Total Protein 4.6 #L Albumin 2.3 L Random Vancomycin Level 16.7 Medications Current Medications Ondansetron HCl (Zofran Inj) 4 mg Q6H PRN IV NAUSEA AND/OR VOMITING; Start 01/04 at 19:30 Acetaminophen/ Hydrocodone Bitart ([place] (5/325)) 1 tab Q6H PRN PO MODERATE PAIN LEVEL 4-6; Start 01/04/17 at 19:30 Morphine Sulfate (morphine) 2 mg Q4H PRN IV SEVERE PAIN LEVEL 7-10 Last administered on 01/04/17 23:51; Admin Dose 2 MG; Start 01/04/17 at 19:30 Docusate Sodium (Colace) 100 mg Q12H PRN PO CONSTIPATION; Start 01/04/17 at 19: 30 Magnesium Hydroxide (Milk Of Mag) 30 ml DAILY PRN PO CONSTIPATION; Start at 19:30 Sodium Biphosphate/ Sodium Phosphate (Fleet Enema) 133 ml DAILY PRN [place] CONSTIPATION; Start 01/04/17 at 19:30 Heparin Sodium (Porcine) (Heparin (5000 Units/0.5 ml)) 5,000 unit Q12 SC Last administered on 01/07/17 08:17; Admin Dose 5,000 UNIT; Start 01/04/17 at 21:00 Lorazepam (Ativan) 0.5 mg Q6H PRN IV ANXIETY; Start 01/04/17 at 19:30 Hydralazine HCl (Apresoline) 10 mg Q6H PRN IV ELEVATED BLOOD PRESSURE; Start at 19:30 Nitroglycerin (Nitroglycerin (Sl Tab) 0.4 Mg) 1 tab Q5M PRN SL ANGINA; Start at 19:30 Insulin Aspart (Novolog Insulin Pen) NOVOLOG *MILD* ALGORI... Q4 SC Last administered on 01/06/17 20:40; Admin Dose 1 UNIT; Start 01/04/17 at 21:00 Phenobarbital (Luminal) 64.8 mg BID PO Last administered on 01/04/17 23:45; Admin Dose 64.8 MG; Start 01/04/17 at 21:00; Status Future Hold Topiramate (Topamax) 200 mg BID PO ; Start 01/05/17 at 21:00; Status Future Hold Miscellaneous Information 1 ea NOTE XX ; Start 01/04/17 at 19:30 Glucose (Glutose) 15 gm Q15M PRN PO DECREASED GLUCOSE; Start 01/04/17 at 19:30 Glucose (Glutose) 22.5 gm Q15M PRN PO DECREASED GLUCOSE; Start 01/04/17 at 19:30 Dextrose (D50w Syringe) 25 ml Q15M PRN IV DECREASED GLUCOSE; Start 01/04/17 at 19:30 Dextrose (D50w Syringe) 50 ml Q15M PRN IV DECREASED GLUCOSE; Start 01/04/17 at 19:30 Glucagon (Glucagen) 1 mg Q15M PRN IM DECREASED GLUCOSE; Start 01/04/17 at 19:30 Glucose (Glutose) 15 gm Q15M PRN BUCCAL DECREASED GLUCOSE; Start 01/04/17 at 19: 30 Phenytoin (Dilantin Susp Cup) 100 mg TID PO Last administered on 01/04/17 23:44 ; Admin Dose 100 MG; Start 01/04/17 at 21:50; Status Future Hold Clonazepam 0.5 mg 0.5 mg Q8H PO Last administered on 01/04/17 23:45; Admin Dose 0.5 MG; Start 01/04/17 at 23:00; Status Future Hold Norepinephrine 16 mg/Dextrose 500 ml @ 1.87 mls/hr TITRATE IV Last administered on 01/07/17 00:23; Admin Dose 15 MLS/HR; Start 01/05/17 at 00:30 Fentanyl 100 ml @ 2.5 mls/hr TITRATE IV Last administered on 01/07/17 05:34; Admin Dose 7.5 MLS/HR; Start 01/05/17 at 08:39 Midazolam HCl 50 ml @ 1 mls/hr TITRATE IV Last administered on 01/07/17 06:28; Admin Dose 10 MLS/HR; Start 01/05/17 at 08:41 Levetiracetam 100 ml @ 400 mls/hr Q12 IVPB Last administered on 01/07/17 08:16 ; Admin Dose 400 MLS/HR; Start 01/05/17 at 11:30 Sodium Bicarbonate 100 meq/Dextrose/ Sodium Chloride 1,100 ml @ 20 mls/hr Q24H IV Last administered on 01/06/17 16:03; Admin Dose 20 MLS/HR; Start 01/05/17 at 11:39 Vasopressin 60 unit/Dextrose 60 ml @ 1.2 mls/hr Q12H IV Last administered on 22:32; Admin Dose 2.4 MLS/HR; Start 01/05/17 at 17:30 Epinephrine 4 mg/ Sodium Chloride 250 ml @ 0 mls/hr TITRATE IV ; Start 01/05/17 at 18:30 Phenylephrine HCl/ Dextrose (Robert-Syneph/D5W) 500 ml @ 18.75 mls/ hr TITRATE IV Last administered on 01/07/17 02:37; Admin Dose 56.25 MLS/HR; Start 01/05/17 at 20:30 Acetaminophen 650 mg 650 mg Q4H PRN NGT PAIN AND OR ELEVATED TEMP Last administered on 01/06/17 04:29; Admin Dose 650 MG; Start 01/06/17 at 04:30 Piperacillin Sod/ Tazobactam Sod (Zosyn 2.25gm/ 50ml (Pmx)) 50 ml @ 100 mls/hr Q8 IVPB Last administered on 01/07/17 05:34; Admin Dose 100 MLS/HR; Start at 14:00 Insulin Glargine 10 unit 10 unit DAILY SC Last administered on 01/07/17 08:19; Admin Dose 10 UNIT; Start 01/06/17 at 14:00 Vancomycin HCl (Vancocin) 250 ml @ 125 mls/hr 10 IVPB ; Start 01/07/17 at 10:00 ; Stop 01/07/17 at 19:00 Assessment/Plan Additional Assessment/Plan IMP: 1. Severe pancreatitis with septic shock 2. Severe metabolic acidosis secondary to above 3. Renal failure likely ATN injury 4. Hypoxemic respiratory failure secondary to above 5. History of seizure disorder RECS: 1. May decrease IVF's 2. Continue mechanical ventilation--> reduce rate to 26 3. Broad-spectrum antibiotic coverage 4. Nasogastric tube to suction 5. GI and general surgery consultations 6. May require intravenous Keppra for seizure prevention 7. Reduce versed gtt; daily sedation vacation 8. Obtain ECHO; consider ED Critical care time 40 minutes. STEPHAN MADRID MD Jan 07, 2017 09:16
[2017-01-07 09:31] LABS: Allen Test ACCEPTAB; Arterial Base Excess -8.3 mmol/L (-3.0-3); Arterial COHb 0.3 % (0.0-3.0); Arterial Fraction of Oxyhgb 96.7 % (93.0-99.0); Arterial HCO3 14.6 mmol/L (22.0-26.0); Arterial MetHb 0.3 % (0.0-1.5); Arterial Total Hemglobin 12.2 g/dl (12.0-18.0); MODE VENT - AC
[2017-01-07] MEDS ORDERED: MAGNESIUM SULFATE 3 GM in SOD CHLORIDE 0.9% 100 ML IVPB ONE (10:00)
[2017-01-07] MEDS ORDERED: VANCOMYCIN 1 GM in NS 250 ML IVPB SCH (10:00)
--- NOTE | 2017-01-07 10:00 | CONS ---
Date/Time of Note Date/Time of Note DATE: 01/07/17 TIME: 09:55 Assessment/Plan Assessment/Plan Problems: (1) Septic shock Status: Acute (2) Acute pancreatitis Status: Acute (3) UTI (urinary tract infection) Status: Acute Comment: biliary sepsis? (4) Metabolic acidosis Status: Acute (5) Metabolic encephalopathy Status: Acute (6) Acute kidney injury Status: Acute Comment: worsening renal function but bp improving on now only single pressor. Expected rise in creatinine and no significant acidosis. Hypocalcemia stable and found hypomagesmia and mag ordered. No indication for dialysis at this time. Gram positive cocci in last blood culture; await id of organism. Amylase improving. Consultation Date/Type/Reason Admit Date/Time Jan 04, 2017 at 19:10 Initial Consult Date 01/05/17 Type of Consultation: Renal Referring Provider: YING CASTAÑEDA 24 HR Interval Summary Subjective hx not possible: pt non-verbal Exam/Review of Systems Vital Signs Vitals Vital Signs Date Time Temp Pulse Resp B/P Pulse Ox O2 Delivery O2 Flow Rate FiO2 01/07/17 08:30 112 30 95/65 100 Mechanical Ventilator 01/07/17 08:00 99.1 01/07/17 05:40 30 01/05/17 03:00 2.0 Intake and Output 01/06/17 01/06/17 01/07/17 15:00 23:00 07:00 Intake Total 1301.97 ml 1144.99 ml 762.47 ml Output Total 195 ml 265 ml 270 ml Balance 1106.97 ml 879.99 ml 492.47 ml Exam Constitutional: non-verbal Neck: supple Respiratory: clear to auscultation Cardiovascular: regular rate and rhythm Gastrointestinal: bowel sounds, tender Neurological: other (moves arms and legs to pain) Results Result Diagram: 01/07/17 0440 01/07/17 0440 Results 24 hrs Laboratory Tests Test 01/06/17 12:36 01/06/17 16:32 01/06/17 17:57 01/06/17 20:38 Bedside Glucose 224 H 211 144 Potassium Level 3.4 L Calcium Level 6.2 L Test 01/07/17 01:06 01/07/17 04:40 01/07/17 05:24 01/07/17 07:00 Bedside Glucose 114 101 White Blood Count 9.3 Red Blood Count 3.42 L Hemoglobin 10.3 L Hematocrit 31.0 L Mean Corpuscular Volume 90.6 Mean Corpuscular Hemoglobin 30.1 Mean Corpuscular Hemoglobin Concent 33.2 Red Cell Distribution Width 14.6 H Platelet Count 189 # Mean Platelet Volume 10.1 Neutrophils % 81.7 H Lymphocytes % 10.9 L Monocytes % 5.4 Eosinophils % 0.2 Basophils % 0.4 Nucleated Red Blood Cells % 0.0 Neutrophils # 7.6 H Lymphocytes # 1.0 Monocytes # 0.5 Eosinophils # 0.0 Basophils # 0.0 Nucleated Red Blood Cells # 0.0 Sodium Level 136 Potassium Level 3.8 Chloride Level 101 Carbon Dioxide Level 17 L Anion Gap 22 H Blood Urea Nitrogen 44 H Creatinine 4.86 #H Glucose Level 148 # Calcium Level 6.4 L Phosphorus Level 4.6 Magnesium Level 1.6 L Total Bilirubin 1.6 H Direct Bilirubin 1.40 #H Indirect Bilirubin 0.2 Aspartate Amino Transf (AST/SGOT) 153 H Alanine Aminotransferase (ALT/SGPT) 131 H Alkaline Phosphatase 138 H Total Protein 4.6 #L Albumin 2.3 L Random Vancomycin Level 16.7 Blood Gas Specimen Source Blood arterial Arterial Blood Date Drawn 01/07/2017 7:40:03 AM Arterial Blood pH (Temp corrected) 7.405 Arterial Blood pCO2 (Temp correct) 23.9 L Arterial Blood pO2 (Temp corrected) 108.8 H Arterial Blood HCO3 14.6 L Arterial Blood Base Excess -8.3 L Arterial Blood Oxygen Saturation 97.3 Rashad Test ACCEPTAB Arterial Blood Gas Puncture Site Left Radial Arterial Blood Carboxyhemoglobin 0.3 Arterial Blood Methemoglobin 0.3 Blood Gas A-a O2 Differential 77.0 H Oxyhemoglobin Percent 96.7 Total Hemoglobin 12.2 Blood Gas Temperature 37.0 Blood Gas Respiration Rate 30.0 Blood Gas Actual Respiration Rate 30 Blood Gas Modality VENT - AC FiO2 30.0 Blood Gas Tidal Volume 450.0 Blood Gas Low PEEP Setting 5.0 Blood Gas Notified Whom CW Blood Gas Notified Time 01/07/2017 8:18:07 AM Test 01/07/17 08:10 Bedside Glucose 109 Medications Medications Current Medications Ondansetron HCl (Zofran Inj) 4 mg Q6H PRN IV NAUSEA AND/OR VOMITING; Start 01/04 at 19:30 Acetaminophen/ Hydrocodone Bitart ([place] (5/325)) 1 tab Q6H PRN PO MODERATE PAIN LEVEL 4-6; Start 01/04/17 at 19:30 Morphine Sulfate (morphine) 2 mg Q4H PRN IV SEVERE PAIN LEVEL 7-10 Last administered on 01/04/17 23:51; Admin Dose 2 MG; Start 01/04/17 at 19:30 Docusate Sodium (Colace) 100 mg Q12H PRN PO CONSTIPATION; Start 01/04/17 at 19: 30 Magnesium Hydroxide (Milk Of Mag) 30 ml DAILY PRN PO CONSTIPATION; Start at 19:30 Sodium Biphosphate/ Sodium Phosphate (Fleet Enema) 133 ml DAILY PRN [place] CONSTIPATION; Start 01/04/17 at 19:30 Heparin Sodium (Porcine) (Heparin (5000 Units/0.5 ml)) 5,000 unit Q12 SC Last administered on 01/07/17 08:17; Admin Dose 5,000 UNIT; Start 01/04/17 at 21:00 Lorazepam (Ativan) 0.5 mg Q6H PRN IV ANXIETY; Start 01/04/17 at 19:30 Hydralazine HCl (Apresoline) 10 mg Q6H PRN IV ELEVATED BLOOD PRESSURE; Start at 19:30 Nitroglycerin (Nitroglycerin (Sl Tab) 0.4 Mg) 1 tab Q5M PRN SL ANGINA; Start at 19:30 Insulin Aspart (Novolog Insulin Pen) NOVOLOG *MILD* ALGORI... Q4 SC Last administered on 01/06/17 20:40; Admin Dose 1 UNIT; Start 01/04/17 at 21:00 Phenobarbital (Luminal) 64.8 mg BID PO Last administered on 01/04/17 23:45; Admin Dose 64.8 MG; Start 01/04/17 at 21:00; Status Future Hold Topiramate (Topamax) 200 mg BID PO ; Start 01/05/17 at 21:00; Status Future Hold Miscellaneous Information 1 ea NOTE XX ; Start 01/04/17 at 19:30 Glucose (Glutose) 15 gm Q15M PRN PO DECREASED GLUCOSE; Start 01/04/17 at 19:30 Glucose (Glutose) 22.5 gm Q15M PRN PO DECREASED GLUCOSE; Start 01/04/17 at 19:30 Dextrose (D50w Syringe) 25 ml Q15M PRN IV DECREASED GLUCOSE; Start 01/04/17 at 19:30 Dextrose (D50w Syringe) 50 ml Q15M PRN IV DECREASED GLUCOSE; Start 01/04/17 at 19:30 Glucagon (Glucagen) 1 mg Q15M PRN IM DECREASED GLUCOSE; Start 01/04/17 at 19:30 Glucose (Glutose) 15 gm Q15M PRN BUCCAL DECREASED GLUCOSE; Start 01/04/17 at 19: 30 Phenytoin (Dilantin Susp Cup) 100 mg TID PO Last administered on 01/04/17 23:44 ; Admin Dose 100 MG; Start 01/04/17 at 21:50; Status Future Hold Clonazepam 0.5 mg 0.5 mg Q8H PO Last administered on 01/04/17 23:45; Admin Dose 0.5 MG; Start 01/04/17 at 23:00; Status Future Hold Norepinephrine 16 mg/Dextrose 500 ml @ 1.87 mls/hr TITRATE IV Last administered on 01/07/17 00:23; Admin Dose 15 MLS/HR; Start 01/05/17 at 00:30 Fentanyl 100 ml @ 2.5 mls/hr TITRATE IV Last administered on 01/07/17 05:34; Admin Dose 7.5 MLS/HR; Start 01/05/17 at 08:39 Midazolam HCl 50 ml @ 1 mls/hr TITRATE IV Last administered on 01/07/17 06:28; Admin Dose 10 MLS/HR; Start 01/05/17 at 08:41 Levetiracetam 100 ml @ 400 mls/hr Q12 IVPB Last administered on 01/07/17 08:16 ; Admin Dose 400 MLS/HR; Start 01/05/17 at 11:30 Sodium Bicarbonate 100 meq/Dextrose/ Sodium Chloride 1,100 ml @ 20 mls/hr Q24H IV Last administered on 01/06/17 16:03; Admin Dose 20 MLS/HR; Start 01/05/17 at 11:39 Vasopressin 60 unit/Dextrose 60 ml @ 1.2 mls/hr Q12H IV Last administered on 22:32; Admin Dose 2.4 MLS/HR; Start 01/05/17 at 17:30 Epinephrine 4 mg/ Sodium Chloride 250 ml @ 0 mls/hr TITRATE IV ; Start 01/05/17 at 18:30 Phenylephrine HCl/ Dextrose (Robert-Syneph/D5W) 500 ml @ 18.75 mls/ hr TITRATE IV Last administered on 01/07/17 02:37; Admin Dose 56.25 MLS/HR; Start 01/05/17 at 20:30 Acetaminophen 650 mg 650 mg Q4H PRN NGT PAIN AND OR ELEVATED TEMP Last administered on 01/06/17 04:29; Admin Dose 650 MG; Start 01/06/17 at 04:30 Piperacillin Sod/ Tazobactam Sod (Zosyn 2.25gm/ 50ml (Pmx)) 50 ml @ 100 mls/hr Q8 IVPB Last administered on 01/07/17 05:34; Admin Dose 100 MLS/HR; Start at 14:00 Insulin Glargine 10 unit 10 unit DAILY SC Last administered on 01/07/17 08:19; Admin Dose 10 UNIT; Start 01/06/17 at 14:00 Vancomycin HCl 250 ml @ 125 mls/hr 10 IVPB ; Start 01/07/17 at 10:00; Stop at 19:00 Magnesium Sulfate/ Sodium Chloride (Magnesium Sulfate/NS) 106 ml @ 35.333 mls/ hr ONCE ONCE IVPB ; Start 01/07/17 at 10:00; Stop 01/07/17 at 12:59 NELSON FLORES MD Jan 07, 2017 09:59
--- NOTE | 2017-01-07 11:15 | PN ---
Date/Time of Note Date/Time of Note DATE: 01/07/17 TIME: 11:10 Assessment/Plan VTE Prophylaxis VTE Prophylaxis Intervention: heparin Assessment/Plan Chief Complaint/Hosp Course 1. Severe shock secondary to severe Pancreatitis and/or sepsis from staph bacteremia: Improved Ultrasound shows no gallstones but CT abdomen shows biliary ductal dilation without gallstones LFTs are elevated as is lipase, trending down GI consultation appreciated, patient is unstable for MRCP at this time Patient has been weaned down to 1 pressor Continue broad-spectrum antibiotics with vancomycin and Zosyn Urine culture is positive for E. coli but UA does not show significant pyuria, one blood culture is positive for staph, continue broad-spectrum antibiotics Dilantin level is low 2D echo to evaluate for vegetations 2. Seizure disorder on multiple medications Continue Keppra IV No report of seizures prior to arrival, no seizures in house 3. Multiple electrolyte abnormalities Replete as needed 4. Transaminitis secondary to medication overdose versus shock liver versus choledocholithiasis: LFTs are trending down Hepatitis panel is negative GI consultation appreciated Monitor 5. LEONOR secondary to shock: Creatinine trending up but patient is now beginning to produce urine Nephrology consultation Continue IV fluids Prophylaxis: Heparin Problems: Subjective 24 Hr Interval Summary Subjective hx not possible: pt non-verbal Exam/Review of Systems Vital Signs Vitals Vital Signs Date Time Temp Pulse Resp B/P Pulse Ox O2 Delivery O2 Flow Rate FiO2 01/07/17 11:07 97 30 95/61 100 Mechanical Ventilator 01/07/17 08:00 99.1 01/07/17 05:40 30 01/05/17 03:00 2.0 Intake and Output 01/06/17 01/06/17 01/07/17 15:00 23:00 07:00 Intake Total 1301.97 ml 1144.99 ml 762.47 ml Output Total 195 ml 265 ml 300 ml Balance 1106.97 ml 879.99 ml 462.47 ml Exam Constitutional: non-verbal Respiratory: clear to auscultation Cardiovascular: regular rate and rhythm Gastrointestinal: soft, No distended Musculoskeletal: nl extremities to inspection Results Result Diagram: 01/07/17 0440 01/07/17 0440 Results 24 hrs Laboratory Tests Test 01/06/17 12:36 01/06/17 16:32 01/06/17 17:57 01/06/17 20:38 Bedside Glucose 224 H 211 144 Potassium Level 3.4 L Calcium Level 6.2 L Test 01/07/17 01:06 01/07/17 04:40 01/07/17 05:24 01/07/17 07:00 Bedside Glucose 114 101 White Blood Count 9.3 Red Blood Count 3.42 L Hemoglobin 10.3 L Hematocrit 31.0 L Mean Corpuscular Volume 90.6 Mean Corpuscular Hemoglobin 30.1 Mean Corpuscular Hemoglobin Concent 33.2 Red Cell Distribution Width 14.6 H Platelet Count 189 # Mean Platelet Volume 10.1 Neutrophils % 81.7 H Lymphocytes % 10.9 L Monocytes % 5.4 Eosinophils % 0.2 Basophils % 0.4 Nucleated Red Blood Cells % 0.0 Neutrophils # 7.6 H Lymphocytes # 1.0 Monocytes # 0.5 Eosinophils # 0.0 Basophils # 0.0 Nucleated Red Blood Cells # 0.0 Sodium Level 136 Potassium Level 3.8 Chloride Level 101 Carbon Dioxide Level 17 L Anion Gap 22 H Blood Urea Nitrogen 44 H Creatinine 4.86 #H Glucose Level 148 # Calcium Level 6.4 L Phosphorus Level 4.6 Magnesium Level 1.6 L Total Bilirubin 1.6 H Direct Bilirubin 1.40 #H Indirect Bilirubin 0.2 Aspartate Amino Transf (AST/SGOT) 153 H Alanine Aminotransferase (ALT/SGPT) 131 H Alkaline Phosphatase 138 H Total Protein 4.6 #L Albumin 2.3 L Random Vancomycin Level 16.7 Blood Gas Specimen Source Blood arterial Arterial Blood Date Drawn 01/07/2017 7:40:03 AM Arterial Blood pH (Temp corrected) 7.405 Arterial Blood pCO2 (Temp correct) 23.9 L Arterial Blood pO2 (Temp corrected) 108.8 H Arterial Blood HCO3 14.6 L Arterial Blood Base Excess -8.3 L Arterial Blood Oxygen Saturation 97.3 Rashad Test ACCEPTAB Arterial Blood Gas Puncture Site Left Radial Arterial Blood Carboxyhemoglobin 0.3 Arterial Blood Methemoglobin 0.3 Blood Gas A-a O2 Differential 77.0 H Oxyhemoglobin Percent 96.7 Total Hemoglobin 12.2 Blood Gas Temperature 37.0 Blood Gas Respiration Rate 30.0 Blood Gas Actual Respiration Rate 30 Blood Gas Modality VENT - AC FiO2 30.0 Blood Gas Tidal Volume 450.0 Blood Gas Low PEEP Setting 5.0 Blood Gas Notified Whom Blood Gas Notified Time 01/07/2017 8:18:07 AM Test 7/8/17 08:10 Bedside Glucose 109 Medications Medications Current Medications Ondansetron HCl (Zofran Inj) 4 mg Q6H PRN IV NAUSEA AND/OR VOMITING; Start 01/04 at 19:30 Acetaminophen/ Hydrocodone Bitart ([place] (5/325)) 1 tab Q6H PRN PO MODERATE PAIN LEVEL 4-6; Start 01/04/17 at 19:30 Morphine Sulfate (morphine) 2 mg Q4H PRN IV SEVERE PAIN LEVEL 7-10 Last administered on 01/04/17 23:51; Admin Dose 2 MG; Start 01/04/17 at 19:30 Docusate Sodium (Colace) 100 mg Q12H PRN PO CONSTIPATION; Start 01/04/17 at 19: 30 Magnesium Hydroxide (Milk Of Mag) 30 ml DAILY PRN PO CONSTIPATION; Start at 19:30 Sodium Biphosphate/ Sodium Phosphate (Fleet Enema) 133 ml DAILY PRN [place] CONSTIPATION; Start 01/04/17 at 19:30 Heparin Sodium (Porcine) (Heparin (5000 Units/0.5 ml)) 5,000 unit Q12 SC Last administered on 01/07/17 08:17; Admin Dose 5,000 UNIT; Start 01/04/17 at 21:00 Lorazepam (Ativan) 0.5 mg Q6H PRN IV ANXIETY; Start 01/04/17 at 19:30 Hydralazine HCl (Apresoline) 10 mg Q6H PRN IV ELEVATED BLOOD PRESSURE; Start at 19:30 Nitroglycerin (Nitroglycerin (Sl Tab) 0.4 Mg) 1 tab Q5M PRN SL ANGINA; Start at 19:30 Insulin Aspart (Novolog Insulin Pen) NOVOLOG *MILD* ALGORI... Q4 SC Last administered on 01/06/17 20:40; Admin Dose 1 UNIT; Start 01/04/17 at 21:00 Phenobarbital (Luminal) 64.8 mg BID PO Last administered on 01/04/17 23:45; Admin Dose 64.8 MG; Start 01/04/17 at 21:00; Status Future Hold Topiramate (Topamax) 200 mg BID PO ; Start 01/05/17 at 21:00; Status Future Hold Miscellaneous Information 1 ea NOTE XX ; Start 01/04/17 at 19:30 Glucose (Glutose) 15 gm Q15M PRN PO DECREASED GLUCOSE; Start 01/04/17 at 19:30 Glucose (Glutose) 22.5 gm Q15M PRN PO DECREASED GLUCOSE; Start 01/04/17 at 19:30 Dextrose (D50w Syringe) 25 ml Q15M PRN IV DECREASED GLUCOSE; Start 01/04/17 at 19:30 Dextrose (D50w Syringe) 50 ml Q15M PRN IV DECREASED GLUCOSE; Start 01/04/17 at 19:30 Glucagon (Glucagen) 1 mg Q15M PRN IM DECREASED GLUCOSE; Start 01/04/17 at 19:30 Glucose (Glutose) 15 gm Q15M PRN BUCCAL DECREASED GLUCOSE; Start 01/04/17 at 19: 30 Phenytoin (Dilantin Susp Cup) 100 mg TID PO Last administered on 01/04/17 23:44 ; Admin Dose 100 MG; Start 01/04/17 at 21:50; Status Future Hold Clonazepam 0.5 mg 0.5 mg Q8H PO Last administered on 01/04/17 23:45; Admin Dose 0.5 MG; Start 01/04/17 at 23:00; Status Future Hold Norepinephrine 16 mg/Dextrose 500 ml @ 1.87 mls/hr TITRATE IV Last administered on 01/07/17 00:23; Admin Dose 15 MLS/HR; Start 01/05/17 at 00:30 Fentanyl 100 ml @ 2.5 mls/hr TITRATE IV Last administered on 01/07/17 05:34; Admin Dose 7.5 MLS/HR; Start 01/05/17 at 08:39 Midazolam HCl 50 ml @ 1 mls/hr TITRATE IV Last administered on 01/07/17 09:58; Admin Dose 7 MLS/HR; Start 01/05/17 at 08:41 Levetiracetam 100 ml @ 400 mls/hr Q12 IVPB Last administered on 01/07/17 08:16 ; Admin Dose 400 MLS/HR; Start 01/05/17 at 11:30 Sodium Bicarbonate 100 meq/Dextrose/ Sodium Chloride 1,100 ml @ 20 mls/hr Q24H IV Last administered on 01/06/17 16:03; Admin Dose 20 MLS/HR; Start 01/05/17 at 11:39 Vasopressin 60 unit/Dextrose 60 ml @ 1.2 mls/hr Q12H IV Last administered on 22:32; Admin Dose 2.4 MLS/HR; Start 01/05/17 at 17:30 Epinephrine 4 mg/ Sodium Chloride 250 ml @ 0 mls/hr TITRATE IV ; Start 01/05/17 at 18:30 Phenylephrine HCl/ Dextrose (Robert-Syneph/D5W) 500 ml @ 18.75 mls/ hr TITRATE IV Last administered on 01/07/17 10:56; Admin Dose 46.87 MLS/HR; Start 01/05/17 at 20:30 Acetaminophen 650 mg 650 mg Q4H PRN NGT PAIN AND OR ELEVATED TEMP Last administered on 01/06/17 04:29; Admin Dose 650 MG; Start 01/06/17 at 04:30 Piperacillin Sod/ Tazobactam Sod (Zosyn 2.25gm/ 50ml (Pmx)) 50 ml @ 100 mls/hr Q8 IVPB Last administered on 01/07/17 05:34; Admin Dose 100 MLS/HR; Start at 14:00 Insulin Glargine 10 unit 10 unit DAILY SC Last administered on 01/07/17 08:19; Admin Dose 10 UNIT; Start 01/06/17 at 14:00 Vancomycin HCl 250 ml @ 125 mls/hr 10 IVPB Last administered on 01/07/17 10:07 ; Admin Dose 125 MLS/HR; Start 01/07/17 at 10:00; Stop 01/07/17 at 19:00 Magnesium Sulfate/ Sodium Chloride (Magnesium Sulfate/NS) 106 ml @ 35.333 mls/ hr ONCE ONCE IVPB Last administered on 01/07/17 09:59; Admin Dose 35.333 MLS/ HR; Start 01/07/17 at 10:00; Stop 01/07/17 at 12:59 YING CASTAÑEDA Jan 07, 2017 11:15
[2017-01-07] MEDS: SODIUM BICARBONATE (IV ADD) 100 MEQ in DEXTROSE 5%-0.45% NACL 1,000 ML IV SCH (12:42)
--- NOTE | 2017-01-07 13:53 | RADRPT ---
PROCEDURE: XR Chest. CLINICAL INDICATION: Shortness of breath. TECHNIQUE: Single frontal view. COMPARISON: 01/06/2017. FINDINGS: The endotracheal tube and nasogastric tube remain in satisfactory position. Pulmonary edema is unch anged. There is atelectasis at the lung bases, unchanged. The heart size is normal. There is a moderate right pleural effusion and small left pleural effusion, larger on the right and unchanged on the left. There is no pneumothorax. IMPRESSION: 1. Larger right pleural effusion. 2. No other change from 01/06/2017. RPTAT: QQ .Larry Box MD, MD Date Time Electronically viewed and signed by .Laryr Box MD, MD on 01/07/2017 13:53 .R/
--- NOTE | 2017-01-07 19:58 | CONS ---
Date/Time of Note Date/Time of Note DATE: 01/07/17 TIME: 19:56 Assessment/Plan Assessment/Plan Chief Complaint/Hosp Course History of abdominal pain and because of that patient came to the emergency room she was found to have acute pancreatitis She also developed respiratory distress sequently she is intubated and she is currently in the intensive care unit Details of the medical history not available because he is intubated and cannot reach the family members Problems: Additional Assessment/Plan gall stone pancreatitis cont current rx Consultation Date/Type/Reason Admit Date/Time Jan 04, 2017 at 19:10 Initial Consult Date 01/05/17 Type of Consultation: Renal Referring Provider: YING CASTAÑEDA 24 HR Interval Summary Free Text/Dictation still intubated Exam/Review of Systems Vital Signs Vitals Vital Signs Date Time Temp Pulse Resp B/P Pulse Ox O2 Delivery O2 Flow Rate FiO2 01/07/17 19:31 91 26 100 35 01/07/17 18:45 108/65 Mechanical Ventilator 01/07/17 16:00 98.6 01/05/17 03:00 2.0 Intake and Output 01/06/17 01/06/17 01/07/17 15:00 23:00 07:00 Intake Total 1301.97 ml 1144.99 ml 762.47 ml Output Total 195 ml 265 ml 300 ml Balance 1106.97 ml 879.99 ml 462.47 ml Exam intubated abd soft bp on neosinephrine Results Result Diagram: 01/07/17 0440 01/07/17 0440 Results 24 hrs Laboratory Tests Test 01/06/17 20:38 01/07/17 01:06 01/07/17 04:40 01/07/17 05:24 Bedside Glucose 144 114 101 White Blood Count 9.3 Red Blood Count 3.42 L Hemoglobin 10.3 L Hematocrit 31.0 L Mean Corpuscular Volume 90.6 Mean Corpuscular Hemoglobin 30.1 Mean Corpuscular Hemoglobin Concent 33.2 Red Cell Distribution Width 14.6 H Platelet Count 189 # Mean Platelet Volume 10.1 Neutrophils % 81.7 H Lymphocytes % 10.9 L Monocytes % 5.4 Eosinophils % 0.2 Basophils % 0.4 Nucleated Red Blood Cells % 0.0 Neutrophils # 7.6 H Lymphocytes # 1.0 Monocytes # 0.5 Eosinophils # 0.0 Basophils # 0.0 Nucleated Red Blood Cells # 0.0 Sodium Level 136 Potassium Level 3.8 Chloride Level 101 Carbon Dioxide Level 17 L Anion Gap 22 H Blood Urea Nitrogen 44 H Creatinine 4.86 #H Glucose Level 148 # Calcium Level 6.4 L Phosphorus Level 4.6 Magnesium Level 1.6 L Total Bilirubin 1.6 H Direct Bilirubin 1.40 #H Indirect Bilirubin 0.2 Aspartate Amino Transf (AST/SGOT) 153 H Alanine Aminotransferase (ALT/SGPT) 131 H Alkaline Phosphatase 138 H Total Protein 4.6 #L Albumin 2.3 L Random Vancomycin Level 16.7 Test 01/07/17 07:00 01/07/17 08:10 01/07/17 12:41 01/07/17 16:55 Blood Gas Specimen Source Blood arterial Arterial Blood Date Drawn 01/07/2017 7:40:03 AM Arterial Blood pH (Temp corrected) 7.405 Arterial Blood pCO2 (Temp correct) 23.9 L Arterial Blood pO2 (Temp corrected) 108.8 H Arterial Blood HCO3 14.6 L Arterial Blood Base Excess -8.3 L Arterial Blood Oxygen Saturation 97.3 Rashad Test ACCEPTAB Arterial Blood Gas Puncture Site Left Radial Arterial Blood Carboxyhemoglobin 0.3 Arterial Blood Methemoglobin 0.3 Blood Gas A-a O2 Differential 77.0 H Oxyhemoglobin Percent 96.7 Total Hemoglobin 12.2 Blood Gas Temperature 37.0 Blood Gas Respiration Rate 30.0 Blood Gas Actual Respiration Rate 30 Blood Gas Modality VENT - AC FiO2 30.0 Blood Gas Tidal Volume 450.0 Blood Gas Low PEEP Setting 5.0 Blood Gas Notified Whom CW Blood Gas Notified Time 01/07/2017 8:18:07 AM Bedside Glucose 109 107 101 Medications Medications Current Medications Ondansetron HCl (Zofran Inj) 4 mg Q6H PRN IV NAUSEA AND/OR VOMITING; Start 01/04 at 19:30 Acetaminophen/ Hydrocodone Bitart ([place] (5/325)) 1 tab Q6H PRN PO MODERATE PAIN LEVEL 4-6; Start 01/04/17 at 19:30 Morphine Sulfate (morphine) 2 mg Q4H PRN IV SEVERE PAIN LEVEL 7-10 Last administered on 01/04/17t 23:51; Admin Dose 2 MG; Start 01/04/17 at 19:30 Docusate Sodium (Colace) 100 mg Q12H PRN PO CONSTIPATION; Start 01/04/17 at 19: 30 Magnesium Hydroxide (Milk Of Mag) 30 ml DAILY PRN PO CONSTIPATION; Start at 19:30 Sodium Biphosphate/ Sodium Phosphate (Fleet Enema) 133 ml DAILY PRN [place] CONSTIPATION; Start 01/04/17 at 19:30 Heparin Sodium (Porcine) (Heparin (5000 Units/0.5 ml)) 5,000 unit Q12 SC Last administered on 01/07/17 08:17; Admin Dose 5,000 UNIT; Start 01/04/17 at 21:00 Lorazepam (Ativan) 0.5 mg Q6H PRN IV ANXIETY; Start 01/04/17 at 19:30 Hydralazine HCl (Apresoline) 10 mg Q6H PRN IV ELEVATED BLOOD PRESSURE; Start at 19:30 Nitroglycerin (Nitroglycerin (Sl Tab) 0.4 Mg) 1 tab Q5M PRN SL ANGINA; Start at 19:30 Insulin Aspart (Novolog Insulin Pen) NOVOLOG *MILD* ALGORI... Q4 SC Last administered on 01/06/17 20:40; Admin Dose 1 UNIT; Start 01/04/17 at 21:00 Phenobarbital (Luminal) 64.8 mg BID PO Last administered on 01/04/17 23:45; Admin Dose 64.8 MG; Start 01/04/17 at 21:00; Status Future Hold Topiramate (Topamax) 200 mg BID PO ; Start 01/05/17 at 21:00; Status Future Hold Miscellaneous Information 1 ea NOTE XX ; Start 01/04/17 at 19:30 Glucose (Glutose) 15 gm Q15M PRN PO DECREASED GLUCOSE; Start 01/04/17 at 19:30 Glucose (Glutose) 22.5 gm Q15M PRN PO DECREASED GLUCOSE; Start 01/04/17 at 19:30 Dextrose (D50w Syringe) 25 ml Q15M PRN IV DECREASED GLUCOSE; Start 01/04/17 at 19:30 Dextrose (D50w Syringe) 50 ml Q15M PRN IV DECREASED GLUCOSE; Start 01/04/17 at 19:30 Glucagon (Glucagen) 1 mg Q15M PRN IM DECREASED GLUCOSE; Start 01/04/17 at 19:30 Glucose (Glutose) 15 gm Q15M PRN BUCCAL DECREASED GLUCOSE; Start 01/04/17 at 19: 30 Phenytoin (Dilantin Susp Cup) 100 mg TID PO Last administered on 01/04/17 23:44 ; Admin Dose 100 MG; Start 01/04/17 at 21:50; Status Future Hold Clonazepam 0.5 mg 0.5 mg Q8H PO Last administered on 01/04/17 23:45; Admin Dose 0.5 MG; Start 01/04/17 at 23:00; Status Future Hold Norepinephrine 16 mg/Dextrose 500 ml @ 1.87 mls/hr TITRATE IV Last administered on 01/07/17 00:23; Admin Dose 15 MLS/HR; Start 01/05/17 at 00:30 Fentanyl 100 ml @ 2.5 mls/hr TITRATE IV Last administered on 01/07/17 16:56; Admin Dose 10 MLS/HR; Start 01/05/17 at 08:39 Midazolam HCl 50 ml @ 1 mls/hr TITRATE IV Last administered on 01/07/17 18:43; Admin Dose 7 MLS/HR; Start 01/05/17 at 08:41 Levetiracetam 100 ml @ 400 mls/hr Q12 IVPB Last administered on 01/07/17 08:16 ; Admin Dose 400 MLS/HR; Start 01/05/17 at 11:30 Sodium Bicarbonate 100 meq/Dextrose/ Sodium Chloride 1,100 ml @ 20 mls/hr Q24H IV Last administered on 01/06/17 16:03; Admin Dose 20 MLS/HR; Start 01/05/17 at 11:39 Vasopressin 60 unit/Dextrose 60 ml @ 1.2 mls/hr Q12H IV Last administered on 22:32; Admin Dose 2.4 MLS/HR; Start 01/05/17 at 17:30 Epinephrine 4 mg/ Sodium Chloride 250 ml @ 0 mls/hr TITRATE IV ; Start 01/05/17 at 18:30 Phenylephrine HCl/ Dextrose (Robert-Syneph/D5W) 500 ml @ 18.75 mls/ hr TITRATE IV Last administered on 01/07/17 10:56; Admin Dose 46.87 MLS/HR; Start 01/05/17 at 20:30 Acetaminophen 650 mg 650 mg Q4H PRN NGT PAIN AND OR ELEVATED TEMP Last administered on 01/06/17 04:29; Admin Dose 650 MG; Start 01/06/17 at 04:30 Piperacillin Sod/ Tazobactam Sod (Zosyn 2.25gm/ 50ml (Pmx)) 50 ml @ 100 mls/hr Q8 IVPB Last administered on 01/07/17 12:42; Admin Dose 100 MLS/HR; Start at 14:00 Insulin Glargine (Lantus) 10 unit DAILY SC Last administered on 01/07/17 08:19 ; Admin Dose 10 UNIT; Start 01/06/17 at 14:00 MYNOR MURPHY MD Jan 07, 2017 19:57
[2017-01-07] MEDS: LORAZEPAM 2 MG INJ IV PRN (23:51)
[2017-01-08] VITALS (84 sets, daily range): BP systolic 90–137; BP diastolic 59–85; PULSE 76–139; RESP 17–33
[2017-01-08] MEDS: DEXTROSE 50% 50 ML SYRINGE IV PRN ×4 (00:52→05:36)
[2017-01-08] MEDS: INSULIN ASPART [NOVOLOG] 3 ML PEN SC SCH ×6 (00:58→21:00)
[2017-01-08] MEDS: SODIUM BICARBONATE (IV ADD) 100 MEQ in DEXTROSE 5%-0.45% NACL 1,000 ML IV SCH (01:32)
[2017-01-08] MEDS: morphine 2 MG INJ IV PRN ×2 (03:53→11:21)
[2017-01-08 04:41] LABS: ADD SCAN DIFF NO
[2017-01-08 04:53] LABS: BASOPHILS % 0.3 % (0.0-2.0); EOSINOPHILS # 0.1 10^3/ul (0.0-0.5); EOSINOPHILS % 0.6 % (0.0-7.0); HEMOGLOBIN 9.3 g/dl (12.0-16.0); LYMPHOCYTES # 0.6 10^3/ul (0.8-2.9); LYMPHOCYTES % 6.8 % (15.0-51.0); MEAN CORPUSCULAR HEMOGLOBIN 29.8 pg (29.0-33.0); MEAN CORPUSCULAR HGB CONC 33.2 g/dl (32.0-37.0); MEAN CORPUSCULAR VOLUME 89.7 fl (82.0-101.0); MEAN PLATELET VOLUME 10.7 fl (7.4-10.4); MONOCYTE # 0.4 10^3/ul (0.3-0.9); MONOCYTES % 4.9 % (0.0-11.0); NEUTROPHIL # 7.6 10^3/ul (1.6-7.5); NEUTROPHILS % 86.5 % (39.0-77.0); PLATELET COUNT 148 10^3/UL (140-415); RED BLOOD COUNT 3.12 10^6/ul (4.20-5.40); RED CELL DISTRIBUTION WIDTH 14.4 % (11.5-14.5); WHITE BLOOD COUNT 8.8 10^3/ul (4.8-10.8)
[2017-01-08 05:08] LABS: ALBUMIN 2.4 g/dl (3.3-4.9); BILIRUBIN,INDIRECT 0.2 mg/dl (0-1.1); BILIRUBIN,TOTAL 1.2 mg/dl (0.2-1.3); CALCIUM 6.2 mg/dl (8.4-10.2); CREATININE 5.57 mg/dl (0.44-1.00); POTASSIUM 3.5 mmol/L (3.5-5.1); TOTAL PROTEIN 4.8 g/dl (6.1-8.1)
[2017-01-08 05:09] LABS: MAGNESIUM 2.1 mg/dl (1.7-2.5); PHOSPHORUS 5.2 mg/dl (2.5-4.9)
[2017-01-08] MEDS: LORAZEPAM 2 MG INJ IV PRN ×2 (05:25→05:58)
[2017-01-08] MEDS: VASOPRESSIN 60 UNIT in DEXTROSE 5% 57 ML IV SCH ×2 (05:30→16:40)
[2017-01-08] MEDS: PIPER-TAZO 2.25 GM (PMX) 50 ML IVPB SCH ×3 (05:58→20:58)
[2017-01-08] MEDS ORDERED: SOD CHLORIDE 0.9% 1,000 ML IV ONE (06:00)
[2017-01-08] MEDS: MIDAZOLAM (DRIP) 50 mg/50 mL 50 ML IV SCH ×4 (06:43→22:50)
[2017-01-08 07:47] LABS: Allen Test ACCEPTAB; Arterial Base Excess -6.3 mmol/L (-3.0-3); Arterial COHb 0.3 % (0.0-3.0); Arterial Fraction of Oxyhgb 96.8 % (93.0-99.0); Arterial HCO3 17.2 mmol/L (22.0-26.0); Arterial MetHb 0.3 % (0.0-1.5); Arterial Total Hemglobin 10.3 g/dl (12.0-18.0); MODE VENT - AC
[2017-01-08] MEDS: SODIUM BICARBONATE (IV ADD) 100 MEQ in DEXTROSE 10% 1,000 ML IV SCH (08:03)
[2017-01-08] MEDS: LEVETIRACETAM 1000 MG (PMX) 100 ML IVPB SCH ×2 (09:22→20:58)
--- NOTE | 2017-01-08 09:32 | CONS ---
Date/Time of Note Date/Time of Note DATE: 01/08/17 TIME: 09:29 Consult Date/Type/Reason Admit Date/Time Jan 04, 2017 at 19:10 Initial Consult Date 01/05/17 Type of Consultation: Renal Ordering Provider: YING CASTAÑEDA Subjective sedated and off pressors. Urine output is dropping. On fentanyl and diprivan and remains intubated. Objective Vital Signs Date Time Temp Pulse Resp B/P Pulse Ox O2 Delivery O2 Flow Rate FiO2 01/08/17 08:00 98.9 122 26 135/76 100 Mechanical Ventilator 01/08/17 05:20 35 01/05/17 03:00 2.0 Intake and Output 01/07/17 01/07/17 01/08/17 15:00 23:00 07:00 Intake Total 790.21 ml 851.25 ml 368.37 ml Output Total 315 ml 395 ml 215 ml Balance 475.21 ml 456.25 ml 153.37 ml Exam responds to pain with grimace lungs clear anteriorly cor irreg and monitor 120 sinus and pacs gi distended and tender diffusely No edema Neuro: sedated but moves legs to Bab stimulus Results/Medications Result Diagram: 01/08/17 0410 01/08/17 0410 Results 24 hrs Laboratory Tests Test 01/07/17 12:41 01/07/17 16:55 01/07/17 20:37 01/08/17 00:49 Bedside Glucose 107 101 70 60 L Test 01/08/17 01:10 01/08/17 01:24 01/08/17 04:10 01/08/17 04:49 Bedside Glucose 105 133 56 L White Blood Count 8.8 Red Blood Count 3.12 L Hemoglobin 9.3 L Hematocrit 28.0 L Mean Corpuscular Volume 89.7 Mean Corpuscular Hemoglobin 29.8 Mean Corpuscular Hemoglobin Concent 33.2 Red Cell Distribution Width 14.4 Platelet Count 148 # Mean Platelet Volume 10.7 H Neutrophils % 86.5 H Lymphocytes % 6.8 L Monocytes % 4.9 Eosinophils % 0.6 Basophils % 0.3 Nucleated Red Blood Cells % 0.0 Neutrophils # 7.6 H Lymphocytes # 0.6 L Monocytes # 0.4 Eosinophils # 0.1 Basophils # 0.0 Nucleated Red Blood Cells # 0.0 Sodium Level 134 L Potassium Level 3.5 Chloride Level 104 Carbon Dioxide Level 19 L Anion Gap 15 # Blood Urea Nitrogen 53 H Creatinine 5.57 H Glucose Level 67 #L Lactic Acid Level 1.5 Calcium Level 6.2 L Phosphorus Level 5.2 H Magnesium Level 2.1 Total Bilirubin 1.2 Direct Bilirubin 1.00 H Indirect Bilirubin 0.2 Aspartate Amino Transf (AST/SGOT) 166 H Alanine Aminotransferase (ALT/SGPT) 144 H Alkaline Phosphatase 178 H Total Protein 4.8 L Albumin 2.4 L Globulin 2.40 Albumin/Globulin Ratio 1.00 Lipase 575 H Test 01/08/17 05:00 01/08/17 05:18 01/08/17 05:38 01/08/17 09:23 Blood Gas Specimen Source Blood arterial Arterial Blood Date Drawn 01/08/2017 4:32:03 AM Arterial Blood pH (Temp corrected) 7.409 Arterial Blood pCO2 (Temp correct) 27.9 L Arterial Blood pO2 (Temp corrected) 105.1 H Arterial Blood HCO3 17.2 L Arterial Blood Base Excess -6.3 L Arterial Blood Oxygen Saturation 97.4 Rashad Test ACCEPTAB Arterial Blood Gas Puncture Site Left Radial Arterial Blood Carboxyhemoglobin 0.3 Arterial Blood Methemoglobin 0.3 Blood Gas A-a O2 Differential 112.0 H Oxyhemoglobin Percent 96.8 Total Hemoglobin 10.3 L Blood Gas Temperature 37.0 Blood Gas Respiration Rate 26.0 Blood Gas Actual Respiration Rate 26 Blood Gas Modality VENT - AC FiO2 35.0 Blood Gas Tidal Volume 450.0 Blood Gas Low PEEP Setting 5.0 Blood Gas Notified Whom LW Blood Gas Notified Time 01/08/2017 4:42:42 AM Bedside Glucose 101 120 83 Medications Current Medications Ondansetron HCl (Zofran Inj) 4 mg Q6H PRN IV NAUSEA AND/OR VOMITING; Start 01/04 at 19:30 Acetaminophen/ Hydrocodone Bitart ([place] (5/325)) 1 tab Q6H PRN PO MODERATE PAIN LEVEL 4-6; Start 01/04/17 at 19:30 Morphine Sulfate (morphine) 2 mg Q4H PRN IV SEVERE PAIN LEVEL 7-10 Last administered on 01/08/17t 03:53; Admin Dose 2 MG; Start 01/04/17 at 19:30 Docusate Sodium (Colace) 100 mg Q12H PRN PO CONSTIPATION; Start 01/04/17 at 19: 30 Magnesium Hydroxide (Milk Of Mag) 30 ml DAILY PRN PO CONSTIPATION; Start at 19:30 Sodium Biphosphate/ Sodium Phosphate (Fleet Enema) 133 ml DAILY PRN [place] CONSTIPATION; Start 01/04/17 at 19:30 Heparin Sodium (Porcine) (Heparin (5000 Units/0.5 ml)) 5,000 unit Q12 SC Last administered on 01/07/17 20:41; Admin Dose 5,000 UNIT; Start 01/04/17 at 21:00 Lorazepam (Ativan) 0.5 mg Q6H PRN IV ANXIETY Last administered on 01/08/17 05: 58; Admin Dose 0.5 MG; Start 01/04/17 at 19:30 Hydralazine HCl (Apresoline) 10 mg Q6H PRN IV ELEVATED BLOOD PRESSURE; Start at 19:30 Nitroglycerin (Nitroglycerin (Sl Tab) 0.4 Mg) 1 tab Q5M PRN [place] ANGINA; Start at 19:30 Insulin Aspart (Novolog Insulin Pen) NOVOLOG *MILD* ALGORI... Q4 SC Last administered on 01/06/17 20:40; Admin Dose 1 UNIT; Start 01/04/17 at 21:00 Phenobarbital (Luminal) 64.8 mg BID PO Last administered on 01/04/17 23:45; Admin Dose 64.8 MG; Start 01/04/17 at 21:00; Status Future Hold Topiramate (Topamax) 200 mg BID PO ; Start 01/05/17 at 21:00; Status Future Hold Miscellaneous Information 1 ea NOTE XX ; Start 01/04/17 at 19:30 Glucose (Glutose) 15 gm Q15M PRN PO DECREASED GLUCOSE; Start 01/04/17 at 19:30 Glucose (Glutose) 22.5 gm Q15M PRN PO DECREASED GLUCOSE; Start 01/04/17 at 19:30 Dextrose (D50w Syringe) 25 ml Q15M PRN IV DECREASED GLUCOSE Last administered on 01/08/17 05:36; Admin Dose 25 ML; Start 01/04/17 at 19:30 Dextrose (D50w Syringe) 50 ml Q15M PRN IV DECREASED GLUCOSE; Start 01/04/17 at 19:30 Glucagon (Glucagen) 1 mg Q15M PRN IM DECREASED GLUCOSE; Start 01/04/17 at 19:30 Glucose (Glutose) 15 gm Q15M PRN BUCCAL DECREASED GLUCOSE; Start 01/04/17 at 19: 30 Phenytoin (Dilantin Susp Cup) 100 mg TID PO Last administered on 01/04/17 23:44 ; Admin Dose 100 MG; Start 01/04/17 at 21:50; Status Future Hold Clonazepam 0.5 mg 0.5 mg Q8H PO Last administered on 01/04/17 23:45; Admin Dose 0.5 MG; Start 01/04/17 at 23:00; Status Future Hold Norepinephrine 16 mg/Dextrose 500 ml @ 1.87 mls/hr TITRATE IV Last administered on 01/07/17 00:23; Admin Dose 15 MLS/HR; Start 01/05/17 at 00:30 Fentanyl 100 ml @ 2.5 mls/hr TITRATE IV Last administered on 01/07/17 23:16; Admin Dose 10 MLS/HR; Start 01/05/17 at 08:39 Midazolam HCl 50 ml @ 1 mls/hr TITRATE IV Last administered on 01/08/17 06:43; Admin Dose 10 MLS/HR; Start 01/05/17 at 08:41 Levetiracetam 100 ml @ 400 mls/hr Q12 IVPB Last administered on 01/08/17 09:22 ; Admin Dose 400 MLS/HR; Start 01/05/17 at 11:30 Vasopressin 60 unit/Dextrose 60 ml @ 1.2 mls/hr Q12H IV Last administered on 22:32; Admin Dose 2.4 MLS/HR; Start 01/05/17 at 17:30 Epinephrine 4 mg/ Sodium Chloride 250 ml @ 0 mls/hr TITRATE IV ; Start 01/05/17 at 18:30 Phenylephrine HCl/ Dextrose (Robert-Syneph/D5W) 500 ml @ 18.75 mls/ hr TITRATE IV Last administered on 01/07/17 23:21; Admin Dose 26.25 MLS/HR; Start 01/05/17 at 20:30 Acetaminophen 650 mg 650 mg Q4H PRN NGT PAIN AND OR ELEVATED TEMP Last administered on 01/06/17 04:29; Admin Dose 650 MG; Start 01/06/17 at 04:30 Piperacillin Sod/ Tazobactam Sod (Zosyn 2.25gm/ 50ml (Pmx)) 50 ml @ 100 mls/hr Q8 IVPB Last administered on 01/08/17 05:58; Admin Dose 100 MLS/HR; Start at 14:00 Insulin Glargine 10 unit 10 unit DAILY SC Last administered on 01/07/17 08:19; Admin Dose 10 UNIT; Start 01/06/17 at 14:00; Status Future Hold Sodium Bicarbonate/ Dextrose (Na Bicarb/D10w) 1,100 ml @ 80 mls/hr [id number] IV Last administered on 01/08/17 08:03; Admin Dose 80 MLS/HR; Start 01/08/17 at 05: 57 Assessment/Plan Problems: (1) Pleural effusion (2) Hypocalcemia (3) Hypoglycemia (4) Tachycardia Additional Assessment/Plan Given tachycardia, decreased urine output, low albumen will give q8h plasmanate and lasix. Will reduce iv rate and watch for further hypoglycemia. Problem of increasing pleural effusions may impact respiratory status sufficiently that if can not keep more negative will have to dialyze. Will mag replete. Despite positive I and o worsening renal function. Recommend updated Ct abdomen and pelvis NELSON FLORES MD Jan 08, 2017 09:31
--- NOTE | 2017-01-08 09:42 | RADRPT ---
PROCEDURE: XR Chest. CLINICAL INDICATION: Pleural effusion. TECHNIQUE: Single frontal portable chest was obtained. COMPARISON: 01/13/2009.. FINDINGS: The cardiac silhouette appears normal. Pulmonary vasculature appears normal. There are bilateral a ir space opacities slightly greater on the left. There are bilateral pleural effusions, left greate r than right. There is an endotracheal tube with the tip in the mid trachea. Nasogastric tube desc ends into the stomach below the image. There is a left subclavian unipolar pacemaker. IMPRESSION: 1. Extensive bilateral air space opacities. This may represent edema versus an inflammatory proces s. 2. Bilateral pleural effusions, left greater than right. RPTAT: [facility] Physician Nacho Date Time Electronically viewed and signed by Clark Doherty Physician on 01/08/2017 09:42 /
[2017-01-08] MEDS: HEPARIN 5,000 UNIT/0.5 ML VIAL SC SCH ×2 (10:00→21:00)
[2017-01-08] MEDS: FENTAnyl (DRIP) 1000 mcg/100mL 100 ML IV SCH ×2 (10:02→18:28)
[2017-01-08] MEDS: ALBUMIN HUMAN 5% 250 ML IV SCH ×2 (10:13→17:21)
[2017-01-08] MEDS: FUROSEMIDE 40 MG INJ IV SCH ×2 (11:16→18:27)
[2017-01-08] MEDS ORDERED: METOPROLOL 25 MG TAB NGT ONE (12:00)
--- NOTE | 2017-01-08 12:59 | CONS ---
Date/Time of Note Date/Time of Note DATE: 01/08/17 TIME: 12:53 Assessment/Plan Assessment/Plan Additional Assessment/Plan Paroxysmal supraventricular tachycardia concerning for atrial tachycardia and atrial fibrillation Severe sepsis Acute pancreatitis Respiratory failure, vent dependent Acute kidney injury Seizure disorder Psychiatric disorder -Telemetry reviewed with brief episodes of tachycardia as high as the 170s which is narrow complex. At times appears like paroxysmal atrial tachycardia but other episodes are irregular more concerning for atrial fibrillation. Patient currently off IV pressors. Blood pressure has been labile and hesitant of initiation of any AV flip blocking agents at the current time. We will continue telemetry monitoring. Patient receiving IV Lasix, maintain potassium above 4.0 and magnesium above 2.0 to decrease likelihood of further arrhythmias. Would consider holding parameters for diuretics given labile blood pressure. If episodes of SVT become more frequent or sustained, would consider initiation of amiodarone. Consultation Date/Type/Reason Admit Date/Time Jan 04, 2017 at 19:10 Type of Consultation: cv Reason for Consultation Tachycardia Hx of Present Illness This is a 61-year-old female admitted with severe abdominal pain found to have acute pancreatitis and possible sepsis. Patient intubated was on IV pressors and weaned off as of this morning. Patient also acute kidney injury. Patient with frequent episodes of tachycardia and for this reason cardiology consultation was requested. History is obtained from the medical chart as well as the nursing staff at bedside. Unable to be performed at the current time given patient sedated and intubated Psychological: No nl mood/affect Past Medical History Seizure disorder Psychiatric disorder Past Surgical History Past Surgical Hx: other (Skin grafts, seizure disorder) Family History Significant Family History: no pertinent family hx Social History Alcohol Use: none Smoking Status: Never smoker Exam/Review of Systems Vital Signs Vitals Vital Signs Date Time Temp Pulse Resp B/P Pulse Ox O2 Delivery O2 Flow Rate FiO2 01/08/17 11:30 127 31 125/77 97 Mechanical Ventilator 01/08/17 08:00 98.9 01/08/17 05:20 35 01/05/17 03:00 2.0 Intake and Output 01/07/17 01/07/17 01/08/17 15:00 23:00 07:00 Intake Total 790.21 ml 851.25 ml 368.37 ml Output Total 315 ml 395 ml 215 ml Balance 475.21 ml 456.25 ml 153.37 ml Exam Sedated and intubated, no apparent distress Constitutional: obese Head: normocephalic ENMT: intubated Respiratory: other (Coarse breath sounds bilaterally, no wheezing) Cardiovascular: other (S1-S2 heard), regular rate and rhythm (Tachycardia) Gastrointestinal: bowel sounds, other (No grimacing with palpation), soft Extremities: edema Results Result Diagram: 01/08/17 0410 01/08/17 0410 Results 24 hrs Laboratory Tests Test 01/07/17 16:55 01/07/17 20:37 01/08/17 00:49 01/08/17 01:10 Bedside Glucose 101 70 60 L 105 Test 01/08/17 01:24 01/08/17 04:10 01/08/17 04:49 01/08/17 05:00 Bedside Glucose 133 56 L White Blood Count 8.8 Red Blood Count 3.12 L Hemoglobin 9.3 L Hematocrit 28.0 L Mean Corpuscular Volume 89.7 Mean Corpuscular Hemoglobin 29.8 Mean Corpuscular Hemoglobin Concent 33.2 Red Cell Distribution Width 14.4 Platelet Count 148 # Mean Platelet Volume 10.7 H Neutrophils % 86.5 H Lymphocytes % 6.8 L Monocytes % 4.9 Eosinophils % 0.6 Basophils % 0.3 Nucleated Red Blood Cells % 0.0 Neutrophils # 7.6 H Lymphocytes # 0.6 L Monocytes # 0.4 Eosinophils # 0.1 Basophils # 0.0 Nucleated Red Blood Cells # 0.0 Sodium Level 134 L Potassium Level 3.5 Chloride Level 104 Carbon Dioxide Level 19 L Anion Gap 15 # Blood Urea Nitrogen 53 H Creatinine 5.57 H Glucose Level 67 #L Lactic Acid Level 1.5 Calcium Level 6.2 L Phosphorus Level 5.2 H Magnesium Level 2.1 Total Bilirubin 1.2 Direct Bilirubin 1.00 H Indirect Bilirubin 0.2 Aspartate Amino Transf (AST/SGOT) 166 H Alanine Aminotransferase (ALT/SGPT) 144 H Alkaline Phosphatase 178 H Total Protein 4.8 L Albumin 2.4 L Globulin 2.40 Albumin/Globulin Ratio 1.00 Lipase 575 H Blood Gas Specimen Source Blood arterial Arterial Blood Date Drawn 01/08/2017 4:32:03 AM Arterial Blood pH (Temp corrected) 7.409 Arterial Blood pCO2 (Temp correct) 27.9 L Arterial Blood pO2 (Temp corrected) 105.1 H Arterial Blood HCO3 17.2 L Arterial Blood Base Excess -6.3 L Arterial Blood Oxygen Saturation 97.4 Rashad Test ACCEPTAB Arterial Blood Gas Puncture Site Left Radial Arterial Blood Carboxyhemoglobin 0.3 Arterial Blood Methemoglobin 0.3 Blood Gas A-a O2 Differential 112.0 H Oxyhemoglobin Percent 96.8 Total Hemoglobin 10.3 L Blood Gas Temperature 37.0 Blood Gas Respiration Rate 26.0 Blood Gas Actual Respiration Rate 26 Blood Gas Modality VENT - AC FiO2 35.0 Blood Gas Tidal Volume 450.0 Blood Gas Low PEEP Setting 5.0 Blood Gas Notified Whom LW Blood Gas Notified Time 01/08/2017 4:42:42 AM Test 01/08/17 05:18 01/08/17 05:38 01/08/17 09:23 01/08/17 11:55 Bedside Glucose 101 120 83 81 Medications Medications Current Medications Ondansetron HCl (Zofran Inj) 4 mg Q6H PRN IV NAUSEA AND/OR VOMITING; Start 01/04 at 19:30 Acetaminophen/ Hydrocodone Bitart ([place] (5/325)) 1 tab Q6H PRN PO MODERATE PAIN LEVEL 4-6; Start 01/04/17 at 19:30 Morphine Sulfate (morphine) 2 mg Q4H PRN IV SEVERE PAIN LEVEL 7-10 Last administered on 01/08/17 11:21; Admin Dose 2 MG; Start 01/04/17 at 19:30 Docusate Sodium (Colace) 100 mg Q12H PRN PO CONSTIPATION; Start 01/04/17 at 19: 30 Magnesium Hydroxide (Milk Of Mag) 30 ml DAILY PRN PO CONSTIPATION; Start at 19:30 Sodium Biphosphate/ Sodium Phosphate (Fleet Enema) 133 ml DAILY PRN [place] CONSTIPATION; Start 01/04/17 at 19:30 Heparin Sodium (Porcine) (Heparin (5000 Units/0.5 ml)) 5,000 unit Q12 SC Last administered on 01/08/17 10:00; Admin Dose 5,000 UNIT; Start 01/04/17 at 21:00 Lorazepam (Ativan) 0.5 mg Q6H PRN IV ANXIETY Last administered on 01/08/17 05: 58; Admin Dose 0.5 MG; Start 01/04/17 at 19:30 Hydralazine HCl (Apresoline) 10 mg Q6H PRN IV ELEVATED BLOOD PRESSURE; Start at 19:30 Nitroglycerin (Nitroglycerin (Sl Tab) 0.4 Mg) 1 tab Q5M PRN SL ANGINA; Start at 19:30 Insulin Aspart (Novolog Insulin Pen) NOVOLOG *MILD* ALGORI... Q4 SC Last administered on 01/06/17 20:40; Admin Dose 1 UNIT; Start 01/04/17 at 21:00 Phenobarbital (Luminal) 64.8 mg BID PO Last administered on 01/04/17 23:45; Admin Dose 64.8 MG; Start 01/04/17 at 21:00; Status Future Hold Topiramate (Topamax) 200 mg BID PO ; Start 01/05/17 at 21:00; Status Future Hold Miscellaneous Information 1 ea NOTE XX ; Start 01/04/17 at 19:30 Glucose (Glutose) 15 gm Q15M PRN PO DECREASED GLUCOSE; Start 01/04/17 at 19:30 Glucose (Glutose) 22.5 gm Q15M PRN PO DECREASED GLUCOSE; Start 01/04/17 at 19:30 Dextrose (D50w Syringe) 25 ml Q15M PRN IV DECREASED GLUCOSE Last administered on 01/08/17 05:36; Admin Dose 25 ML; Start 01/04/17 at 19:30 Dextrose (D50w Syringe) 50 ml Q15M PRN IV DECREASED GLUCOSE; Start 01/04/17 at 19:30 Glucagon (Glucagen) 1 mg Q15M PRN IM DECREASED GLUCOSE; Start 01/04/17 at 19:30 Glucose (Glutose) 15 gm Q15M PRN BUCCAL DECREASED GLUCOSE; Start 01/04/17 at 19: 30 Phenytoin (Dilantin Susp Cup) 100 mg TID PO Last administered on 01/04/17 23:44 ; Admin Dose 100 MG; Start 01/04/17 at 21:50; Status Future Hold Clonazepam 0.5 mg 0.5 mg Q8H PO Last administered on 01/04/17 23:45; Admin Dose 0.5 MG; Start 01/04/17 at 23:00; Status Future Hold Norepinephrine 16 mg/Dextrose 500 ml @ 1.87 mls/hr TITRATE IV Last administered on 01/07/17 00:23; Admin Dose 15 MLS/HR; Start 01/05/17 at 00:30 Fentanyl 100 ml @ 2.5 mls/hr TITRATE IV Last administered on 01/08/17 10:02; Admin Dose 7.5 MLS/HR; Start 01/05/17 at 08:39 Midazolam HCl 50 ml @ 1 mls/hr TITRATE IV Last administered on 01/08/17 06:43; Admin Dose 10 MLS/HR; Start 01/05/17 at 08:41 Levetiracetam 100 ml @ 400 mls/hr Q12 IVPB Last administered on 01/08/17 09:22 ; Admin Dose 400 MLS/HR; Start 01/05/17 at 11:30 Vasopressin 60 unit/Dextrose 60 ml @ 1.2 mls/hr Q12H IV Last administered on 22:32; Admin Dose 2.4 MLS/HR; Start 01/05/17 at 17:30 Epinephrine 4 mg/ Sodium Chloride 250 ml @ 0 mls/hr TITRATE IV ; Start 01/05/17 at 18:30 Phenylephrine HCl/ Dextrose (Robert-Syneph/D5W) 500 ml @ 18.75 mls/ hr TITRATE IV Last administered on 01/07/17 23:21; Admin Dose 26.25 MLS/HR; Start 01/05/17 at 20:30 Acetaminophen 650 mg 650 mg Q4H PRN NGT PAIN AND OR ELEVATED TEMP Last administered on 01/06/17 04:29; Admin Dose 650 MG; Start 01/06/17 at 04:30 Piperacillin Sod/ Tazobactam Sod (Zosyn 2.25gm/ 50ml (Pmx)) 50 ml @ 100 mls/hr Q8 IVPB Last administered on 01/08/17 05:58; Admin Dose 100 MLS/HR; Start at 14:00 Insulin Glargine 10 unit 10 unit DAILY SC Last administered on 01/07/17 08:19; Admin Dose 10 UNIT; Start 01/06/17 at 14:00; Status Future Hold Sodium Bicarbonate 100 meq/Dextrose 1,100 ml @ 50 mls/hr Q22H IV Last administered on 01/08/17 08:03; Admin Dose 80 MLS/HR; Start 01/08/17 at 05:57 Albumin Human 250 ml @ 250 mls/hr Q8H IV Last administered on 01/08/17 10:13; Admin Dose 250 MLS/HR; Start 01/08/17 at 10:00; Stop 01/09/17 at 02:59 Furosemide (Lasix) 80 mg Q8H IV Last administered on 01/08/17 11:16; Admin Dose 80 MG; Start 01/08/17 at 10:00; Stop 01/09/17 at 02:01 Procedures Procedures ECG done on January 04 demonstrates sinus tachycardia at 154 bpm, QRS 84 ms, nonspecific ST abnormalities Vlad Leyva DO Jan 08, 2017 12:59
[2017-01-08] MEDS ORDERED: POTASSIUM CHLORIDE 50 ML IVPB ONE (13:00)
--- NOTE | 2017-01-08 13:10 | CONS ---
Date/Time of Note Date/Time of Note DATE: 01/08/17 TIME: 13:05 Consult Date/Type/Reason Admit Date/Time Jan 04, 2017 at 19:10 Initial Consult Date 01/05/17 Type of Consultation: Pulm/CCM Ordering Provider: YING CASTAÑEDA Subjective Intermittently tachycardic to the 150's in SR. Off pressors. UO low despite albumin/lasix Objective Vital Signs Date Time Temp Pulse Resp B/P Pulse Ox O2 Delivery O2 Flow Rate FiO2 01/08/17 11:30 127 31 125/77 97 Mechanical Ventilator 01/08/17 08:00 98.9 01/08/17 05:20 35 01/05/17 03:00 2.0 Intake and Output 01/07/17 01/07/17 01/08/17 15:00 23:00 07:00 Intake Total 790.21 ml 851.25 ml 368.37 ml Output Total 315 ml 395 ml 215 ml Balance 475.21 ml 456.25 ml 153.37 ml Exam HEENT: No JVD; + ET in place CARDIAC: S1, S2, 1/6 systolic ejection murmur CHEST: Diminished air entry bilaterally. ABDOMEN: Mildly distended. Bowel sounds diminished no guarding or rebound EXTREMITIES: No cyanosis, clubbing; edema +2 Results/Medications Result Diagram: 01/08/1740901/08/17409 Results 24 hrs Laboratory Tests Test 01/07/17 16:55 01/07/17 20:37 01/08/17 00:49 01/08/17 01:10 Bedside Glucose 101 70 60 L 105 Test 01/08/17 01:24 01/08/17 04:10 01/08/17 04:49 01/08/17 05:00 Bedside Glucose 133 56 L White Blood Count 8.8 Red Blood Count 3.12 L Hemoglobin 9.3 L Hematocrit 28.0 L Mean Corpuscular Volume 89.7 Mean Corpuscular Hemoglobin 29.8 Mean Corpuscular Hemoglobin Concent 33.2 Red Cell Distribution Width 14.4 Platelet Count 148 # Mean Platelet Volume 10.7 H Neutrophils % 86.5 H Lymphocytes % 6.8 L Monocytes % 4.9 Eosinophils % 0.6 Basophils % 0.3 Nucleated Red Blood Cells % 0.0 Neutrophils # 7.6 H Lymphocytes # 0.6 L Monocytes # 0.4 Eosinophils # 0.1 Basophils # 0.0 Nucleated Red Blood Cells # 0.0 Sodium Level 134 L Potassium Level 3.5 Chloride Level 104 Carbon Dioxide Level 19 L Anion Gap 15 # Blood Urea Nitrogen 53 H Creatinine 5.57 H Glucose Level 67 #L Lactic Acid Level 1.5 Calcium Level 6.2 L Phosphorus Level 5.2 H Magnesium Level 2.1 Total Bilirubin 1.2 Direct Bilirubin 1.00 H Indirect Bilirubin 0.2 Aspartate Amino Transf (AST/SGOT) 166 H Alanine Aminotransferase (ALT/SGPT) 144 H Alkaline Phosphatase 178 H Total Protein 4.8 L Albumin 2.4 L Globulin 2.40 Albumin/Globulin Ratio 1.00 Lipase 575 H Blood Gas Specimen Source Blood arterial Arterial Blood Date Drawn 01/08/2017 4:32:03 AM Arterial Blood pH (Temp corrected) 7.409 Arterial Blood pCO2 (Temp correct) 27.9 L Arterial Blood pO2 (Temp corrected) 105.1 H Arterial Blood HCO3 17.2 L Arterial Blood Base Excess -6.3 L Arterial Blood Oxygen Saturation 97.4 Rashad Test ACCEPTAB Arterial Blood Gas Puncture Site Left Radial Arterial Blood Carboxyhemoglobin 0.3 Arterial Blood Methemoglobin 0.3 Blood Gas A-a O2 Differential 112.0 H Oxyhemoglobin Percent 96.8 Total Hemoglobin 10.3 L Blood Gas Temperature 37.0 Blood Gas Respiration Rate 26.0 Blood Gas Actual Respiration Rate 26 Blood Gas Modality VENT - AC FiO2 35.0 Blood Gas Tidal Volume 450.0 Blood Gas Low PEEP Setting 5.0 Blood Gas Notified Whom LW Blood Gas Notified Time 01/08/2017 4:42:42 AM Test 01/08/17 05:18 01/08/17 05:38 01/08/17 09:23 01/08/17 11:55 Bedside Glucose 101 120 83 81 Medications Current Medications Ondansetron HCl (Zofran Inj) 4 mg Q6H PRN IV NAUSEA AND/OR VOMITING; Start 01/04 at 19:30 Acetaminophen/ Hydrocodone Bitart ([place] (5/325)) 1 tab Q6H PRN PO MODERATE PAIN LEVEL 4-6; Start 01/04/17 at 19:30 Morphine Sulfate (morphine) 2 mg Q4H PRN IV SEVERE PAIN LEVEL 7-10 Last administered on 01/08/17t 11:21; Admin Dose 2 MG; Start 01/04/17 at 19:30 Docusate Sodium (Colace) 100 mg Q12H PRN PO CONSTIPATION; Start 01/04/17 at 19: 30 Magnesium Hydroxide (Milk Of Mag) 30 ml DAILY PRN PO CONSTIPATION; Start at 19:30 Sodium Biphosphate/ Sodium Phosphate (Fleet Enema) 133 ml DAILY PRN [place] CONSTIPATION; Start 01/04/17 at 19:30 Heparin Sodium (Porcine) (Heparin (5000 Units/0.5 ml)) 5,000 unit Q12 SC Last administered on 01/08/17 10:00; Admin Dose 5,000 UNIT; Start 01/04/17 at 21:00 Lorazepam (Ativan) 0.5 mg Q6H PRN IV ANXIETY Last administered on 01/08/17 05: 58; Admin Dose 0.5 MG; Start 01/04/17 at 19:30 Hydralazine HCl (Apresoline) 10 mg Q6H PRN IV ELEVATED BLOOD PRESSURE; Start at 19:30 Nitroglycerin (Nitroglycerin (Sl Tab) 0.4 Mg) 1 tab Q5M PRN SL ANGINA; Start at 19:30 Insulin Aspart (Novolog Insulin Pen) NOVOLOG *MILD* ALGORI... Q4 SC Last administered on 01/06/17 20:40; Admin Dose 1 UNIT; Start 01/04/17 at 21:00 Phenobarbital (Luminal) 64.8 mg BID PO Last administered on 01/04/17 23:45; Admin Dose 64.8 MG; Start 01/04/17 at 21:00; Status Future Hold Topiramate (Topamax) 200 mg BID PO ; Start 01/05/17 at 21:00; Status Future Hold Miscellaneous Information 1 ea NOTE XX ; Start 01/04/17 at 19:30 Glucose (Glutose) 15 gm Q15M PRN PO DECREASED GLUCOSE; Start 01/04/17 at 19:30 Glucose (Glutose) 22.5 gm Q15M PRN PO DECREASED GLUCOSE; Start 01/04/17 at 19:30 Dextrose (D50w Syringe) 25 ml Q15M PRN IV DECREASED GLUCOSE Last administered on 01/08/17 05:36; Admin Dose 25 ML; Start 01/04/17 at 19:30 Dextrose (D50w Syringe) 50 ml Q15M PRN IV DECREASED GLUCOSE; Start 01/04/17 at 19:30 Glucagon (Glucagen) 1 mg Q15M PRN IM DECREASED GLUCOSE; Start 01/04/17 at 19:30 Glucose (Glutose) 15 gm Q15M PRN BUCCAL DECREASED GLUCOSE; Start 01/04/17 at 19: 30 Phenytoin (Dilantin Susp Cup) 100 mg TID PO Last administered on 01/04/17 23:44 ; Admin Dose 100 MG; Start 01/04/17 at 21:50; Status Future Hold Clonazepam 0.5 mg 0.5 mg Q8H PO Last administered on 01/04/17 23:45; Admin Dose 0.5 MG; Start 01/04/17 at 23:00; Status Future Hold Norepinephrine 16 mg/Dextrose 500 ml @ 1.87 mls/hr TITRATE IV Last administered on 01/07/17 00:23; Admin Dose 15 MLS/HR; Start 01/05/17 at 00:30 Fentanyl 100 ml @ 2.5 mls/hr TITRATE IV Last administered on 01/08/17 10:02; Admin Dose 7.5 MLS/HR; Start 01/05/17 at 08:39 Midazolam HCl 50 ml @ 1 mls/hr TITRATE IV Last administered on 01/08/17 06:43; Admin Dose 10 MLS/HR; Start 01/05/17 at 08:41 Levetiracetam 100 ml @ 400 mls/hr Q12 IVPB Last administered on 01/08/17 09:22 ; Admin Dose 400 MLS/HR; Start 01/05/17 at 11:30 Vasopressin 60 unit/Dextrose 60 ml @ 1.2 mls/hr Q12H IV Last administered on 22:32; Admin Dose 2.4 MLS/HR; Start 01/05/17 at 17:30 Epinephrine 4 mg/ Sodium Chloride 250 ml @ 0 mls/hr TITRATE IV ; Start 01/05/17 at 18:30 Phenylephrine HCl/ Dextrose (Robert-Syneph/D5W) 500 ml @ 18.75 mls/ hr TITRATE IV Last administered on 01/07/17 23:21; Admin Dose 26.25 MLS/HR; Start 01/05/17 at 20:30 Acetaminophen 650 mg 650 mg Q4H PRN NGT PAIN AND OR ELEVATED TEMP Last administered on 01/06/17 04:29; Admin Dose 650 MG; Start 01/06/17 at 04:30 Piperacillin Sod/ Tazobactam Sod (Zosyn 2.25gm/ 50ml (Pmx)) 50 ml @ 100 mls/hr Q8 IVPB Last administered on 01/08/17 05:58; Admin Dose 100 MLS/HR; Start at 14:00 Insulin Glargine 10 unit 10 unit DAILY SC Last administered on 01/07/17 08:19; Admin Dose 10 UNIT; Start 01/06/17 at 14:00; Status Future Hold Sodium Bicarbonate 100 meq/Dextrose 1,100 ml @ 50 mls/hr Q22H IV Last administered on 01/08/17 08:03; Admin Dose 80 MLS/HR; Start 01/08/17 at 05:57 Albumin Human 250 ml @ 250 mls/hr Q8H IV Last administered on 01/08/17 10:13; Admin Dose 250 MLS/HR; Start 01/08/17 at 10:00; Stop 01/09/17 at 02:59 Furosemide 80 mg 80 mg Q8H IV Last administered on 01/08/17 11:16; Admin Dose 80 MG; Start 01/08/17 at 10:00; Stop 01/09/17 at 02:01 Potassium Chloride (KCl 20 MEQ/50 ML SW) 50 ml @ 25 mls/hr ONCE ONCE IVPB ; Start 01/08/17 at 13:00; Stop 01/08/17 at 14:59 Assessment/Plan Additional Assessment/Plan IMP: 1. Severe pancreatitis with septic shock 2. Metabolic acidosis secondary to above and ARF 3. Renal failure likely ATN 4. Hypoxemic respiratory failure secondary to above 5. History of seizure disorder RECS: 1. Continue albumin/lasix 2. Continue mechanical ventilation 3. Broad-spectrum antibiotic coverage 4. Nasogastric tube to suction 5. May require HD if not responsive to albumin and lasix 7. Reduce versed gtt; daily sedation vacation 8. Follow labs; lactate clearance 35 min cc time STEPHAN MADRID MD Jan 08, 2017 13:10
--- NOTE | 2017-01-08 13:10 | RADRPT ---
Echocardiogram Report Patient Name: JAVIER HAMMOND Gender: Female Date: 1955 Study Date: 07-Jan-2017 [employer] System Administrator: CARLOS Location: I Ref. Physician: STEPHAN MADRID Quality: Technically Difficult Study Procedures: Transthoracic echocardiogram examination. Indications: Evaluate for Endocarditis and EF. 2D/M Mode Doppler Measurement Value Normal Range Measurement Value Normal Range AoR Diam MM 3.2 cm AV Peak Olivier 1.0 m/sec LVIDd 2D 3.9 3.5 - 5.6 cm AV Peak PG 4.3 mmHg LVIDs 2D 2.4 2.1 - 4.1 cm LVOT Peak Olivier 0.8 m/sec LVPWd 2D 1.1 0.6 - 1.1 cm LVOT Peak PG 2.4 mmHg IVSd 2D 1.1 0.6 - 1.1 cm MV E Peak Olivier 0.5 m/sec EDV 2D 67.7 cm3 MV A Peak Olivier 0.9 m/sec ESV 2D 13.3 cm3 MV E/A 0.6 LA Dimen 2D 3.0 2.3 - 4.0 cm MV Decel Time 244 msec MV Decel [place] 2 MV E/A 0.6 Findings Left Ventricle: Normal left ventricular cavity size, wall thickness and systolic function. Normal left ventricular cavity size. Normal left ventricular systolic function. Tissue Doppler/Mitral Doppler indices are consistent with impaired relaxation (Stage I diastolic dysfunction). Normal left ventricular wall thickness. The left ventricular ejection fraction is visually estimated at 55 %. Right Ventricle: Normal right ventricular size. Normal right ventricular systolic function. Left Atrium: The left atrium is normal in size and appearance. Right Atrium: The right atrium is normal in size and appearance. Atrial Septum: Normal atrial septum. Mitral Valve: Normal appearance and function of the mitral valve with trace physiologic regurgitation. Aortic Valve: Normal appearance of the aortic valve, seen from apicals only. No hemodynamically significant aortic stenosis by Doppler. Trace aortic regurgitation. Tricuspid Valve: Normal appearance of the tricuspid valve. No evidence of tricuspid regurgitation. Pulmonic Valve: The pulmonic valve is not well visualized. Pericardium: Normal pericardium with no significant pericardial effusion. Aorta: Normal aortic root seen from apical images. IVC: Normal inferior vena cava appearance. Pulmonary Artery: Pulmonary artery is not well visualized. Conclusions Normal left ventricular cavity size, wall thickness and systolic function but not all segments visualized. Normal left ventricular cavity size. Normal left ventricular systolic function. Tissue Doppler/Mitral Doppler indices are consistent with impaired relaxation (Stage I diastolic dysfunction). Normal left ventricular wall thickness. The left ventricular ejection fraction is visually estimated at 55 %. Normal right ventricular size. Normal right ventricular systolic function. The right atrium is normal in size and appearance. The left atrium is normal in size and appearance. No significant valvular abnormalities seen. Normal pericardium with no significant pericardial effusion. Electronically Signed By: Vlad Leyva 08-Jan-2017 13:09:26 -0700 Patient Name: JAVIER HAMMOND Study Date: 07-Jan-2017 [id number]
[2017-01-08] MEDS ORDERED: LIDOCAINE 1% (MPF) 5 ML VIAL SC ONE (15:30)
--- NOTE | 2017-01-08 18:12 | CONS ---
Date/Time of Note Date/Time of Note DATE: 01/08/17 TIME: 18:06 Assessment/Plan Assessment/Plan Chief Complaint/Hosp Course History of abdominal pain and because of that patient came to the emergency room she was found to have acute pancreatitis She also developed respiratory distress sequently she is intubated and she is currently in the intensive care unit Details of the medical history not available because he is intubated and cannot reach the family members Problems: Additional Assessment/Plan severe pancreatitis with resp and renal failure not toxic plan cont aggressive supportive rx needs ERCP when stable ct abd in am if stable Consultation Date/Type/Reason Admit Date/Time Jan 04, 2017 at 19:10 Initial Consult Date 01/05/17 Type of Consultation: Pulm/CCM Referring Provider: YING CASTAÑEDA 24 HR Interval Summary Free Text/Dictation pt intubated off of pressors pulse 101 bp 103/67 Exam/Review of Systems Vital Signs Vitals Vital Signs Date Time Temp Pulse Resp B/P Pulse Ox O2 Delivery O2 Flow Rate FiO2 01/08/17 16:50 99 26 100 35 01/08/17 16:30 97/60 Mechanical Ventilator 01/08/17 16:00 98.9 01/05/17 03:00 2.0 Intake and Output 01/07/17 01/07/17 01/08/17 15:00 23:00 07:00 Intake Total 790.21 ml 851.25 ml 368.37 ml Output Total 315 ml 395 ml 215 ml Balance 475.21 ml 456.25 ml 153.37 ml Exam abd mildly tender wbc not high ca low bun cr high iv alb being given severe pancreatitis etio prob cbd stones needs eRCP when stable Results Result Diagram: 01/08/17 0410 01/08/17 0410 Results 24 hrs Laboratory Tests Test 01/07/17 20:37 01/08/17 00:49 01/08/17 01:10 01/08/17 01:24 Bedside Glucose 70 60 L 105 133 Test 01/08/17 04:10 01/08/17 04:49 01/08/17 05:00 01/08/17 05:18 White Blood Count 8.8 Red Blood Count 3.12 L Hemoglobin 9.3 L Hematocrit 28.0 L Mean Corpuscular Volume 89.7 Mean Corpuscular Hemoglobin 29.8 Mean Corpuscular Hemoglobin Concent 33.2 Red Cell Distribution Width 14.4 Platelet Count 148 # Mean Platelet Volume 10.7 H Neutrophils % 86.5 H Lymphocytes % 6.8 L Monocytes % 4.9 Eosinophils % 0.6 Basophils % 0.3 Nucleated Red Blood Cells % 0.0 Neutrophils # 7.6 H Lymphocytes # 0.6 L Monocytes # 0.4 Eosinophils # 0.1 Basophils # 0.0 Nucleated Red Blood Cells # 0.0 Sodium Level 134 L Potassium Level 3.5 Chloride Level 104 Carbon Dioxide Level 19 L Anion Gap 15 # Blood Urea Nitrogen 53 H Creatinine 5.57 H Glucose Level 67 #L Lactic Acid Level 1.5 Calcium Level 6.2 L Phosphorus Level 5.2 H Magnesium Level 2.1 Total Bilirubin 1.2 Direct Bilirubin 1.00 H Indirect Bilirubin 0.2 Aspartate Amino Transf (AST/SGOT) 166 H Alanine Aminotransferase (ALT/SGPT) 144 H Alkaline Phosphatase 178 H Total Protein 4.8 L Albumin 2.4 L Globulin 2.40 Albumin/Globulin Ratio 1.00 Lipase 575 H Bedside Glucose 56 L 101 Blood Gas Specimen Source Blood arterial Arterial Blood Date Drawn 01/08/2017 4:32:03 AM Arterial Blood pH (Temp corrected) 7.409 Arterial Blood pCO2 (Temp correct) 27.9 L Arterial Blood pO2 (Temp corrected) 105.1 H Arterial Blood HCO3 17.2 L Arterial Blood Base Excess -6.3 L Arterial Blood Oxygen Saturation 97.4 Rashad Test ACCEPTAB Arterial Blood Gas Puncture Site Left Radial Arterial Blood Carboxyhemoglobin 0.3 Arterial Blood Methemoglobin 0.3 Blood Gas A-a O2 Differential 112.0 H Oxyhemoglobin Percent 96.8 Total Hemoglobin 10.3 L Blood Gas Temperature 37.0 Blood Gas Respiration Rate 26.0 Blood Gas Actual Respiration Rate 26 Blood Gas Modality VENT - AC FiO2 35.0 Blood Gas Tidal Volume 450.0 Blood Gas Low PEEP Setting 5.0 Blood Gas Notified Whom LW Blood Gas Notified Time 01/08/2017 4:42:42 AM Test 01/08/17 05:38 01/08/17 09:23 01/08/17 11:55 01/08/17 16:53 Bedside Glucose 120 83 81 76 Medications Medications Current Medications Ondansetron HCl (Zofran Inj) 4 mg Q6H PRN IV NAUSEA AND/OR VOMITING; Start 01/04 at 19:30 Acetaminophen/ Hydrocodone Bitart ([place] (5/325)) 1 tab Q6H PRN PO MODERATE PAIN LEVEL 4-6; Start 01/04/17 at 19:30 Morphine Sulfate (morphine) 2 mg Q4H PRN IV SEVERE PAIN LEVEL 7-10 Last administered on 01/08/17 11:21; Admin Dose 2 MG; Start 01/04/17 at 19:30 Docusate Sodium (Colace) 100 mg Q12H PRN PO CONSTIPATION; Start 01/04/17 at 19: 30 Magnesium Hydroxide (Milk Of Mag) 30 ml DAILY PRN PO CONSTIPATION; Start at 19:30 Sodium Biphosphate/ Sodium Phosphate (Fleet Enema) 133 ml DAILY PRN [place] CONSTIPATION; Start 01/04/17 at 19:30 Heparin Sodium (Porcine) (Heparin (5000 Units/0.5 ml)) 5,000 unit Q12 SC Last administered on 01/08/17 10:00; Admin Dose 5,000 UNIT; Start 01/04/17 at 21:00 Lorazepam (Ativan) 0.5 mg Q6H PRN IV ANXIETY Last administered on 01/08/17 05: 58; Admin Dose 0.5 MG; Start 01/04/17 at 19:30 Hydralazine HCl (Apresoline) 10 mg Q6H PRN IV ELEVATED BLOOD PRESSURE; Start at 19:30 Nitroglycerin (Nitroglycerin (Sl Tab) 0.4 Mg) 1 tab Q5M PRN SL ANGINA; Start at 19:30 Insulin Aspart (Novolog Insulin Pen) NOVOLOG *MILD* ALGORI... Q4 SC Last administered on 01/06/17 20:40; Admin Dose 1 UNIT; Start 01/04/17 at 21:00 Phenobarbital (Luminal) 64.8 mg BID PO Last administered on 01/04/17 23:45; Admin Dose 64.8 MG; Start 01/04/17 at 21:00; Status Future Hold Topiramate (Topamax) 200 mg BID PO ; Start 01/05/17 at 21:00; Status Future Hold Miscellaneous Information 1 ea NOTE XX ; Start 01/04/17 at 19:30 Glucose (Glutose) 15 gm Q15M PRN PO DECREASED GLUCOSE; Start 01/04/17 at 19:30 Glucose (Glutose) 22.5 gm Q15M PRN PO DECREASED GLUCOSE; Start 01/04/17 at 19:30 Dextrose (D50w Syringe) 25 ml Q15M PRN IV DECREASED GLUCOSE Last administered on 01/08/17 05:36; Admin Dose 25 ML; Start 01/04/17 at 19:30 Dextrose (D50w Syringe) 50 ml Q15M PRN IV DECREASED GLUCOSE; Start 01/04/17 at 19:30 Glucagon (Glucagen) 1 mg Q15M PRN IM DECREASED GLUCOSE; Start 01/04/17 at 19:30 Glucose (Glutose) 15 gm Q15M PRN BUCCAL DECREASED GLUCOSE; Start 01/04/17 at 19: 30 Phenytoin (Dilantin Susp Cup) 100 mg TID PO Last administered on 01/04/17 23:44 ; Admin Dose 100 MG; Start 01/04/17 at 21:50; Status Future Hold Clonazepam 0.5 mg 0.5 mg Q8H PO Last administered on 01/04/17 23:45; Admin Dose 0.5 MG; Start 01/04/17 at 23:00; Status Future Hold Norepinephrine 16 mg/Dextrose 500 ml @ 1.87 mls/hr TITRATE IV Last administered on 01/07/17 00:23; Admin Dose 15 MLS/HR; Start 01/05/17 at 00:30 Fentanyl 100 ml @ 2.5 mls/hr TITRATE IV Last administered on 01/08/17 10:02; Admin Dose 7.5 MLS/HR; Start 01/05/17 at 08:39 Midazolam HCl 50 ml @ 1 mls/hr TITRATE IV Last administered on 01/08/17 13:50; Admin Dose 10 MLS/HR; Start 01/05/17 at 08:41 Levetiracetam 100 ml @ 400 mls/hr Q12 IVPB Last administered on 01/08/17 09:22 ; Admin Dose 400 MLS/HR; Start 01/05/17 at 11:30 Vasopressin 60 unit/Dextrose 60 ml @ 1.2 mls/hr Q12H IV Last administered on 22:32; Admin Dose 2.4 MLS/HR; Start 01/05/17 at 17:30 Epinephrine 4 mg/ Sodium Chloride 250 ml @ 0 mls/hr TITRATE IV ; Start 01/05/17 at 18:30 Phenylephrine HCl/ Dextrose (Robert-Syneph/D5W) 500 ml @ 18.75 mls/ hr TITRATE IV Last administered on 01/07/17 23:21; Admin Dose 26.25 MLS/HR; Start 01/05/17 at 20:30 Acetaminophen 650 mg 650 mg Q4H PRN NGT PAIN AND OR ELEVATED TEMP Last administered on 01/06/17 04:29; Admin Dose 650 MG; Start 01/06/17 at 04:30 Piperacillin Sod/ Tazobactam Sod (Zosyn 2.25gm/ 50ml (Pmx)) 50 ml @ 100 mls/hr Q8 IVPB Last administered on 01/08/17 13:53; Admin Dose 100 MLS/HR; Start at 14:00 Insulin Glargine 10 unit 10 unit DAILY SC Last administered on 01/07/17 08:19; Admin Dose 10 UNIT; Start 01/06/17 at 14:00; Status Future Hold Sodium Bicarbonate 100 meq/Dextrose 1,100 ml @ 50 mls/hr Q22H IV Last administered on 01/08/17 08:03; Admin Dose 80 MLS/HR; Start 01/08/17 at 05:57 Albumin Human 250 ml @ 250 mls/hr Q8H IV Last administered on 01/08/17 17:21; Admin Dose 250 MLS/HR; Start 01/08/17 at 10:00; Stop 01/09/17 at 02:59 Furosemide (Lasix) 80 mg Q8H IV Last administered on 01/08/17 11:16; Admin Dose 80 MG; Start 01/08/17 at 10:00; Stop 01/09/17 at 02:01 MYNOR MURPHY MD Jan 08, 2017 18:11
--- NOTE | 2017-01-08 19:24 | PN ---
Date/Time of Note Date/Time of Note DATE: 01/08/17 TIME: 19:23 Assessment/Plan VTE Prophylaxis VTE Prophylaxis Intervention: heparin Assessment/Plan Chief Complaint/Hosp Course 1. Severe shock secondary to severe Pancreatitis and/or sepsis from staph bacteremia: Improved Ultrasound shows no gallstones but CT abdomen shows biliary ductal dilation without gallstones LFTs are elevated as is lipase, trending down GI consultation appreciated, patient is unstable for MRCP at this time Patient has been weaned off pressors Continue broad-spectrum antibiotics with vancomycin and Zosyn Urine culture is positive for E. coli but UA does not show significant pyuria, one blood culture is positive for staph, continue broad-spectrum antibiotics Dilantin level is low 2D echo to evaluate for vegetations 2. Seizure disorder on multiple medications Continue Keppra IV No report of seizures prior to arrival, no seizures in house 3. Multiple electrolyte abnormalities Replete as needed 4. Transaminitis secondary to medication overdose versus shock liver versus choledocholithiasis: LFTs are trending down Hepatitis panel is negative GI consultation appreciated Monitor 5. LEONOR secondary to shock: Creatinine trending up but patient is now beginning to produce urine Nephrology consultation Continue IV fluids Prophylaxis: Heparin Problems: Subjective 24 Hr Interval Summary Subjective hx not possible: pt non-verbal Exam/Review of Systems Vital Signs Vitals Vital Signs Date Time Temp Pulse Resp B/P Pulse Ox O2 Delivery O2 Flow Rate FiO2 01/08/17 18:30 99 26 103/67 99 Mechanical Ventilator 01/08/17 16:50 35 01/08/17 16:00 98.9 01/05/17 03:00 2.0 Intake and Output 01/07/17 01/07/17 01/08/17 15:00 23:00 07:00 Intake Total 790.21 ml 851.25 ml 368.37 ml Output Total 315 ml 395 ml 215 ml Balance 475.21 ml 456.25 ml 153.37 ml Exam Constitutional: non-verbal ENMT: intubated Respiratory: clear to auscultation Cardiovascular: regular rate and rhythm Gastrointestinal: soft, No distended Musculoskeletal: nl extremities to inspection Results Result Diagram: 01/08/17 0410 01/08/17409 Results 24 hrs Laboratory Tests Test 01/07/17 20:37 01/08/17 00:49 01/08/17 01:10 01/08/17 01:24 Bedside Glucose 70 60 L 105 133 Test 01/08/17 04:10 01/08/17 04:49 01/08/17 05:00 01/08/17 05:18 White Blood Count 8.8 Red Blood Count 3.12 L Hemoglobin 9.3 L Hematocrit 28.0 L Mean Corpuscular Volume 89.7 Mean Corpuscular Hemoglobin 29.8 Mean Corpuscular Hemoglobin Concent 33.2 Red Cell Distribution Width 14.4 Platelet Count 148 # Mean Platelet Volume 10.7 H Neutrophils % 86.5 H Lymphocytes % 6.8 L Monocytes % 4.9 Eosinophils % 0.6 Basophils % 0.3 Nucleated Red Blood Cells % 0.0 Neutrophils # 7.6 H Lymphocytes # 0.6 L Monocytes # 0.4 Eosinophils # 0.1 Basophils # 0.0 Nucleated Red Blood Cells # 0.0 Sodium Level 134 L Potassium Level 3.5 Chloride Level 104 Carbon Dioxide Level 19 L Anion Gap 15 # Blood Urea Nitrogen 53 H Creatinine 5.57 H Glucose Level 67 #L Lactic Acid Level 1.5 Calcium Level 6.2 L Phosphorus Level 5.2 H Magnesium Level 2.1 Total Bilirubin 1.2 Direct Bilirubin 1.00 H Indirect Bilirubin 0.2 Aspartate Amino Transf (AST/SGOT) 166 H Alanine Aminotransferase (ALT/SGPT) 144 H Alkaline Phosphatase 178 H Total Protein 4.8 L Albumin 2.4 L Globulin 2.40 Albumin/Globulin Ratio 1.00 Lipase 575 H Bedside Glucose 56 L 101 Blood Gas Specimen Source Blood arterial Arterial Blood Date Drawn 01/08/2017 4:32:03 AM Arterial Blood pH (Temp corrected) 7.409 Arterial Blood pCO2 (Temp correct) 27.9 L Arterial Blood pO2 (Temp corrected) 105.1 H Arterial Blood HCO3 17.2 L Arterial Blood Base Excess -6.3 L Arterial Blood Oxygen Saturation 97.4 Rashad Test ACCEPTAB Arterial Blood Gas Puncture Site Left Radial Arterial Blood Carboxyhemoglobin 0.3 Arterial Blood Methemoglobin 0.3 Blood Gas A-a O2 Differential 112.0 H Oxyhemoglobin Percent 96.8 Total Hemoglobin 10.3 L Blood Gas Temperature 37.0 Blood Gas Respiration Rate 26.0 Blood Gas Actual Respiration Rate 26 Blood Gas Modality VENT - AC FiO2 35.0 Blood Gas Tidal Volume 450.0 Blood Gas Low PEEP Setting 5.0 Blood Gas Notified Whom LW Blood Gas Notified Time 01/08/2017 4:42:42 AM Test 01/08/17 05:38 01/08/17 09:23 01/08/17 11:55 01/08/17 16:53 Bedside Glucose 120 83 81 76 Medications Medications Current Medications Ondansetron HCl (Zofran Inj) 4 mg Q6H PRN IV NAUSEA AND/OR VOMITING; Start 01/04 at 19:30 Acetaminophen/ Hydrocodone Bitart ([place] (5/325)) 1 tab Q6H PRN PO MODERATE PAIN LEVEL 4-6; Start 01/04/17 at 19:30 Morphine Sulfate (morphine) 2 mg Q4H PRN IV SEVERE PAIN LEVEL 7-10 Last administered on 01/08/17 11:21; Admin Dose 2 MG; Start 01/04/17 at 19:30 Docusate Sodium (Colace) 100 mg Q12H PRN PO CONSTIPATION; Start 01/04/17 at 19: 30 Magnesium Hydroxide (Milk Of Mag) 30 ml DAILY PRN PO CONSTIPATION; Start at 19:30 Sodium Biphosphate/ Sodium Phosphate (Fleet Enema) 133 ml DAILY PRN [place] CONSTIPATION; Start 01/04/17 at 19:30 Heparin Sodium (Porcine) (Heparin (5000 Units/0.5 ml)) 5,000 unit Q12 SC Last administered on 01/08/17 10:00; Admin Dose 5,000 UNIT; Start 01/04/17 at 21:00 Lorazepam (Ativan) 0.5 mg Q6H PRN IV ANXIETY Last administered on 01/08/17 05: 58; Admin Dose 0.5 MG; Start 01/04/17 at 19:30 Hydralazine HCl (Apresoline) 10 mg Q6H PRN IV ELEVATED BLOOD PRESSURE; Start at 19:30 Nitroglycerin (Nitroglycerin (Sl Tab) 0.4 Mg) 1 tab Q5M PRN SL ANGINA; Start at 19:30 Insulin Aspart (Novolog Insulin Pen) NOVOLOG *MILD* ALGORI... Q4 SC Last administered on 01/06/17 20:40; Admin Dose 1 UNIT; Start 01/04/17 at 21:00 Phenobarbital (Luminal) 64.8 mg BID PO Last administered on 01/04/17 23:45; Admin Dose 64.8 MG; Start 01/04/17 at 21:00; Status Future Hold Topiramate (Topamax) 200 mg BID PO ; Start 01/05/17 at 21:00; Status Future Hold Miscellaneous Information 1 ea NOTE XX ; Start 01/04/17 at 19:30 Glucose (Glutose) 15 gm Q15M PRN PO DECREASED GLUCOSE; Start 01/04/17 at 19:30 Glucose (Glutose) 22.5 gm Q15M PRN PO DECREASED GLUCOSE; Start 01/04/17 at 19:30 Dextrose (D50w Syringe) 25 ml Q15M PRN IV DECREASED GLUCOSE Last administered on 01/08/17 05:36; Admin Dose 25 ML; Start 01/04/17 at 19:30 Dextrose (D50w Syringe) 50 ml Q15M PRN IV DECREASED GLUCOSE; Start 01/04/17 at 19:30 Glucagon (Glucagen) 1 mg Q15M PRN IM DECREASED GLUCOSE; Start 01/04/17 at 19:30 Glucose (Glutose) 15 gm Q15M PRN BUCCAL DECREASED GLUCOSE; Start 01/04/17 at 19: 30 Phenytoin (Dilantin Susp Cup) 100 mg TID PO Last administered on 01/04/17 23:44 ; Admin Dose 100 MG; Start 01/04/17 at 21:50; Status Future Hold Clonazepam 0.5 mg 0.5 mg Q8H PO Last administered on 01/04/17 23:45; Admin Dose 0.5 MG; Start 01/04/17 at 23:00; Status Future Hold Norepinephrine 16 mg/Dextrose 500 ml @ 1.87 mls/hr TITRATE IV Last administered on 01/07/17 00:23; Admin Dose 15 MLS/HR; Start 01/05/17 at 00:30 Fentanyl 100 ml @ 2.5 mls/hr TITRATE IV Last administered on 01/08/17 18:28; Admin Dose 10 MLS/HR; Start 01/05/17 at 08:39 Midazolam HCl 50 ml @ 1 mls/hr TITRATE IV Last administered on 01/08/17 18:27; Admin Dose 10 MLS/HR; Start 01/05/17 at 08:41 Levetiracetam 100 ml @ 400 mls/hr Q12 IVPB Last administered on 01/08/17 09:22 ; Admin Dose 400 MLS/HR; Start 01/05/17 at 11:30 Vasopressin 60 unit/Dextrose 60 ml @ 1.2 mls/hr Q12H IV Last administered on 22:32; Admin Dose 2.4 MLS/HR; Start 01/05/17 at 17:30 Epinephrine 4 mg/ Sodium Chloride 250 ml @ 0 mls/hr TITRATE IV ; Start 01/05/17 at 18:30 Phenylephrine HCl/ Dextrose (Robert-Syneph/D5W) 500 ml @ 18.75 mls/ hr TITRATE IV Last administered on 01/07/17 23:21; Admin Dose 26.25 MLS/HR; Start 01/05/17 at 20:30 Acetaminophen 650 mg 650 mg Q4H PRN NGT PAIN AND OR ELEVATED TEMP Last administered on 01/06/17 04:29; Admin Dose 650 MG; Start 01/06/17 at 04:30 Piperacillin Sod/ Tazobactam Sod (Zosyn 2.25gm/ 50ml (Pmx)) 50 ml @ 100 mls/hr Q8 IVPB Last administered on 01/08/17 13:53; Admin Dose 100 MLS/HR; Start at 14:00 Insulin Glargine 10 unit 10 unit DAILY SC Last administered on 01/07/17 08:19; Admin Dose 10 UNIT; Start 01/06/17 at 14:00; Status Future Hold Sodium Bicarbonate 100 meq/Dextrose 1,100 ml @ 50 mls/hr Q22H IV Last administered on 01/08/17 08:03; Admin Dose 80 MLS/HR; Start 01/08/17 at 05:57 Albumin Human 250 ml @ 250 mls/hr Q8H IV Last administered on 01/08/17 17:21; Admin Dose 250 MLS/HR; Start 01/08/17 at 10:00; Stop 01/09/17 at 02:59 Furosemide (Lasix) 80 mg Q8H IV Last administered on 01/08/17 18:27; Admin Dose 80 MG; Start 01/08/17 at 10:00; Stop 01/09/17 at 02:01 YING CASTAÑEDA Jan 08, 2017 19:24
[2017-01-09] VITALS (64 sets, daily range): BP systolic 100–138; BP diastolic 65–86; PULSE 95–120; RESP 26–29
[2017-01-09] MEDS: INSULIN ASPART [NOVOLOG] 3 ML PEN SC SCH ×6 (01:00→20:58)
[2017-01-09] MEDS: SODIUM BICARBONATE (IV ADD) 100 MEQ in DEXTROSE 10% 1,000 ML IV SCH ×2 (01:11→22:31)
[2017-01-09] MEDS: ALBUMIN HUMAN 5% 250 ML IV SCH (01:12)
[2017-01-09] MEDS ORDERED: FUROSEMIDE 40 MG INJ IV ONE (03:00)
[2017-01-09] MEDS: FUROSEMIDE 40 MG INJ IV SCH (03:12)
[2017-01-09] MEDS: MIDAZOLAM (DRIP) 50 mg/50 mL 50 ML IV SCH ×4 (03:52→21:01)
[2017-01-09] MEDS: FENTAnyl (DRIP) 1000 mcg/100mL 100 ML IV SCH ×3 (03:52→22:31)
[2017-01-09 04:39] LABS: ADD SCAN DIFF NO
[2017-01-09 04:47] LABS: ABNORMAL IP MESSAGE 1; BASOPHILS % 0.3 % (0.0-2.0); EOSINOPHILS % 0.4 % (0.0-7.0); HEMATOCRIT 23.6 % (37.0-47.0); HEMOGLOBIN 7.9 g/dl (12.0-16.0); LYMPHOCYTES # 0.7 10^3/ul (0.8-2.9); LYMPHOCYTES % 6.1 % (15.0-51.0); MEAN CORPUSCULAR HEMOGLOBIN 29.8 pg (29.0-33.0); MEAN CORPUSCULAR HGB CONC 33.5 g/dl (32.0-37.0); MEAN CORPUSCULAR VOLUME 89.1 fl (82.0-101.0); MEAN PLATELET VOLUME 11.1 fl (7.4-10.4); MONOCYTE # 0.5 10^3/ul (0.3-0.9); MONOCYTES % 4.1 % (0.0-11.0); NEUTROPHIL # 9.9 10^3/ul (1.6-7.5); NEUTROPHILS % 88.3 % (39.0-77.0); PLATELET COUNT 124 10^3/UL (140-415); RED BLOOD COUNT 2.65 10^6/ul (4.20-5.40); RED CELL DISTRIBUTION WIDTH 14.4 % (11.5-14.5); WHITE BLOOD COUNT 11.2 10^3/ul (4.8-10.8)
[2017-01-09] MEDS: VASOPRESSIN 60 UNIT in DEXTROSE 5% 57 ML IV SCH ×2 (05:30→17:15)
[2017-01-09 05:32] LABS: ALBUMIN/GLOBULIN RATIO 1.26
[2017-01-09 05:34] LABS: BILIRUBIN,TOTAL 1.1 mg/dl (0.2-1.3); CALCIUM 6.3 mg/dl (8.4-10.2); CREATININE 5.61 mg/dl (0.44-1.00); POTASSIUM 3.8 mmol/L (3.5-5.1)
[2017-01-09 05:35] LABS: ALBUMIN 2.4 g/dl (3.3-4.9); BILIRUBIN,DIRECT 0.9 mg/dl (0.00-0.20); BILIRUBIN,INDIRECT 0.2 mg/dl (0-1.1); TOTAL PROTEIN 4.3 g/dl (6.1-8.1)
[2017-01-09] MEDS: PIPER-TAZO 2.25 GM (PMX) 50 ML IVPB SCH ×3 (05:39→22:31)
--- NOTE | 2017-01-09 07:56 | RADRPT ---
PROCEDURE: XR Chest. CLINICAL INDICATION: Shortness of breath. TECHNIQUE: Single frontal view. COMPARISON: 01/08/2017. FINDINGS: The endotracheal tube and nasogastric tube remain in satisfactory position. Bilateral air space dis ease consistent with pulmonary edema is unchanged. The heart size is normal. There are moderate bilateral pleural effusions. There is no pneumothorax. A left-sided stimulator device is noted with a wire extending to the lower cervical spine. IMPRESSION: 1. No significant change from 01/08/2017. RPTAT: QQ .Larry Box MD, MD Date Time Electronically viewed and signed by .Larry Box MD, MD on 01/09/2017 07:55 .R/
[2017-01-09] MEDS ORDERED: CALCIUM GLUCONATE 10% 2 GM in SOD CHLORIDE 0.9% 100 ML IVPB ONE (08:00)
[2017-01-09] MEDS ORDERED: BUMETANIDE 12 MG in DEXTROSE 5% 72 ML IV ONE (08:00)
--- NOTE | 2017-01-09 08:05 | CONS ---
Date/Time of Note Date/Time of Note DATE: 01/09/17 TIME: 08:03 Assessment/Plan Assessment/Plan Chief Complaint/Hosp Course Admitted with abdominal pain and evidence of severe pancreatitis in otherwise good health. Problems: Additional Assessment/Plan 1. Acute renal failure sec to hypotension and pancreatitis, no need for HD today. 2. Vol overload, will start Bumex drip after lasix 3. Anemia, will transfuse if ok with Int Med. Consultation Date/Type/Reason Admit Date/Time Jan 04, 2017 at 19:10 Initial Consult Date 01/05/17 Type of Consultation: Pulm/CCM Referring Provider: YING CASTAÑEDA 24 HR Interval Summary Constitutional: other (intubated and sedated) Exam/Review of Systems Vital Signs Vitals Vital Signs Date Time Temp Pulse Resp B/P Pulse Ox O2 Delivery O2 Flow Rate FiO2 01/09/17 06:00 101 26 117/73 99 Mechanical Ventilator 01/09/17 05:30 35 01/09/17 04:00 99.4 Intake and Output 01/08/17 01/08/17 01/09/17 15:00 23:00 07:00 Intake Total 950 ml 890 ml 0 ml Output Total 440 ml 280 ml 465 ml Balance 510 ml 610 ml -465 ml Exam Neck: No jvd Respiratory: diminished breath sounds Cardiovascular: regular rate and rhythm Gastrointestinal: soft Extremities: No edema (2-3+ sacral edema and no extrem edema) Results Result Diagram: 01/09/17 0415 01/09/17 0415 Results 24 hrs Laboratory Tests Test 01/08/17 09:23 01/08/17 11:55 01/08/17 16:53 01/08/17 20:59 Bedside Glucose 83 81 76 95 Test 01/09/17 01:10 01/09/17 04:15 01/09/17 05:37 Bedside Glucose 98 99 White Blood Count 11.2 #H Red Blood Count 2.65 L Hemoglobin 7.9 L Hematocrit 23.6 L Mean Corpuscular Volume 89.1 Mean Corpuscular Hemoglobin 29.8 Mean Corpuscular Hemoglobin Concent 33.5 Red Cell Distribution Width 14.4 Platelet Count 124 L Mean Platelet Volume 11.1 H Neutrophils % 88.3 H Lymphocytes % 6.1 L Monocytes % 4.1 Eosinophils % 0.4 Basophils % 0.3 Nucleated Red Blood Cells % 0.0 Neutrophils # 9.9 H Lymphocytes # 0.7 L Monocytes # 0.5 Eosinophils # 0.0 Basophils # 0.0 Nucleated Red Blood Cells # 0.0 Sodium Level 136 Potassium Level 3.8 Chloride Level 103 Carbon Dioxide Level 19 L Anion Gap 18 H Blood Urea Nitrogen 58 H Creatinine 5.61 H Glucose Level 93 Lactic Acid Level 1.3 Calcium Level 6.3 L Total Bilirubin 1.1 Direct Bilirubin 0.90 H Indirect Bilirubin 0.2 Aspartate Amino Transf (AST/SGOT) 124 H Alanine Aminotransferase (ALT/SGPT) 130 H Alkaline Phosphatase 154 H Total Protein 4.3 L Albumin 2.4 L Globulin 1.90 Albumin/Globulin Ratio 1.26 Lipase 622 H Medications Medications Current Medications Ondansetron HCl (Zofran Inj) 4 mg Q6H PRN IV NAUSEA AND/OR VOMITING; Start 01/04 at 19:30 Acetaminophen/ Hydrocodone Bitart ([place] (5/325)) 1 tab Q6H PRN PO MODERATE PAIN LEVEL 4-6; Start 01/04/17 at 19:30 Morphine Sulfate (morphine) 2 mg Q4H PRN IV SEVERE PAIN LEVEL 7-10 Last administered on 01/08/17 11:21; Admin Dose 2 MG; Start 01/04/17 at 19:30 Docusate Sodium (Colace) 100 mg Q12H PRN PO CONSTIPATION; Start 01/04/17 at 19: 30 Magnesium Hydroxide (Milk Of Mag) 30 ml DAILY PRN PO CONSTIPATION; Start at 19:30 Sodium Biphosphate/ Sodium Phosphate (Fleet Enema) 133 ml DAILY PRN [place] CONSTIPATION; Start 01/04/17 at 19:30 Heparin Sodium (Porcine) (Heparin (5000 Units/0.5 ml)) 5,000 unit Q12 SC Last administered on 01/08/17 21:00; Admin Dose 5,000 UNIT; Start 01/04/17 at 21:00 Lorazepam (Ativan) 0.5 mg Q6H PRN IV ANXIETY Last administered on 01/08/17 05: 58; Admin Dose 0.5 MG; Start 01/04/17 at 19:30 Hydralazine HCl (Apresoline) 10 mg Q6H PRN IV ELEVATED BLOOD PRESSURE; Start at 19:30 Nitroglycerin (Nitroglycerin (Sl Tab) 0.4 Mg) 1 tab Q5M PRN SL ANGINA; Start at 19:30 Insulin Aspart (Novolog Insulin Pen) NOVOLOG *MILD* ALGORI... Q4 SC Last administered on 01/06/17 20:40; Admin Dose 1 UNIT; Start 01/04/17 at 21:00 Phenobarbital (Luminal) 64.8 mg BID PO Last administered on 01/04/17 23:45; Admin Dose 64.8 MG; Start 01/04/17 at 21:00; Status Future Hold Topiramate (Topamax) 200 mg BID PO ; Start 01/05/17 at 21:00; Status Future Hold Miscellaneous Information 1 ea NOTE XX ; Start 01/04/17 at 19:30 Glucose (Glutose) 15 gm Q15M PRN PO DECREASED GLUCOSE; Start 01/04/17 at 19:30 Glucose (Glutose) 22.5 gm Q15M PRN PO DECREASED GLUCOSE; Start 01/04/17 at 19:30 Dextrose (D50w Syringe) 25 ml Q15M PRN IV DECREASED GLUCOSE Last administered on 01/08/17 05:36; Admin Dose 25 ML; Start 01/04/17 at 19:30 Dextrose (D50w Syringe) 50 ml Q15M PRN IV DECREASED GLUCOSE; Start 01/04/17 at 19:30 Glucagon (Glucagen) 1 mg Q15M PRN IM DECREASED GLUCOSE; Start 01/04/17 at 19:30 Glucose (Glutose) 15 gm Q15M PRN BUCCAL DECREASED GLUCOSE; Start 01/04/17 at 19: 30 Phenytoin (Dilantin Susp Cup) 100 mg TID PO Last administered on 01/04/17 23:44 ; Admin Dose 100 MG; Start 01/04/17 at 21:50; Status Future Hold Clonazepam 0.5 mg 0.5 mg Q8H PO Last administered on 01/04/17 23:45; Admin Dose 0.5 MG; Start 01/04/17 at 23:00; Status Future Hold Norepinephrine 16 mg/Dextrose 500 ml @ 1.87 mls/hr TITRATE IV Last administered on 01/07/17 00:23; Admin Dose 15 MLS/HR; Start 01/05/17 at 00:30 Fentanyl 100 ml @ 2.5 mls/hr TITRATE IV Last administered on 01/09/17 03:52; Admin Dose 10 MLS/HR; Start 01/05/17 at 08:39 Midazolam HCl 50 ml @ 1 mls/hr TITRATE IV Last administered on 01/09/17 03:52 ; Admin Dose 10 MLS/HR; Start 01/05/17 at 08:41 Levetiracetam 100 ml @ 400 mls/hr Q12 IVPB Last administered on 01/08/17 20:58 ; Admin Dose 400 MLS/HR; Start 01/05/17 at 11:30 Vasopressin 60 unit/Dextrose 60 ml @ 1.2 mls/hr Q12H IV Last administered on 22:32; Admin Dose 2.4 MLS/HR; Start 01/05/17 at 17:30 Epinephrine 4 mg/ Sodium Chloride 250 ml @ 0 mls/hr TITRATE IV ; Start 01/05/17 at 18:30 Phenylephrine HCl/ Dextrose (Robert-Syneph/D5W) 500 ml @ 18.75 mls/ hr TITRATE IV Last administered on 01/07/17 23:21; Admin Dose 26.25 MLS/HR; Start 01/05/17 at 20:30 Acetaminophen 650 mg 650 mg Q4H PRN NGT PAIN AND OR ELEVATED TEMP Last administered on 01/06/17 04:29; Admin Dose 650 MG; Start 01/06/17 at 04:30 Piperacillin Sod/ Tazobactam Sod (Zosyn 2.25gm/ 50ml (Pmx)) 50 ml @ 100 mls/hr Q8 IVPB Last administered on 01/09/17 05:39; Admin Dose 100 MLS/HR; Start 01/06 at 14:00 Insulin Glargine 10 unit 10 unit DAILY SC Last administered on 01/07/17 08:19; Admin Dose 10 UNIT; Start 01/06/17 at 14:00; Status Future Hold Sodium Bicarbonate/ Dextrose (Na Bicarb/D10w) 1,100 ml @ 50 mls/hr Q22H IV Last administered on 01/09/17 01:11; Admin Dose 50 MLS/HR; Start 01/08/17 at 05: 57 FRANCIS JULES MD Jan 09, 2017 08:05
[2017-01-09 08:32] LABS: AADO2 Arterial 103.2 mmHg (7.0-24.0); Allen Test ACCEPTAB; Arterial Base Excess -5.6 mmol/L (-3.0-3); Arterial COHb 0.3 % (0.0-3.0); Arterial Fraction of Oxyhgb 96.9 % (93.0-99.0); Arterial HCO3 18.4 mmol/L (22.0-26.0); Arterial MetHb 0.2 % (0.0-1.5); Arterial Total Hemglobin 9.2 g/dl (12.0-18.0); MODE VENT - AC
[2017-01-09] MEDS: LEVETIRACETAM 1000 MG (PMX) 100 ML IVPB SCH ×2 (08:58→21:00)
[2017-01-09] MEDS: HEPARIN 5,000 UNIT/0.5 ML VIAL SC SCH ×2 (09:00→20:59)
--- NOTE | 2017-01-09 10:50 | PN ---
Date/Time of Note Date/Time of Note DATE: 01/09/17 TIME: 10:38 Assessment/Plan VTE Prophylaxis VTE Prophylaxis Intervention: heparin Lines/Catheters IV Catheter Type (from [facility]): Central Line Central line still needed: Yes Urinary Cath still in place: Yes Reason Cath still needed: other (indicate) Assessment/Plan Chief Complaint/Hosp Course Chief Complaint/Hosp Course 1. Severe shock secondary to severe Pancreatitis and/or sepsis from staph bacteremia: Improved Ultrasound shows no gallstones but CT abdomen shows biliary ductal dilation without gallstones LFTs are elevated as is lipase, trending down GI consultation appreciated, patient is unstable for MRCP at this time secondary to agitation Patient has been weaned off pressors Continue broad-spectrum antibiotics with vancomycin and Zosyn Urine culture is positive for E. coli but UA does not show significant pyuria, one blood culture is positive for staph, continue broad-spectrum antibiotics Dilantin level is low 2D echo showed normal ejection fraction with no evidence of valvular vegetations 2. Seizure disorder on multiple medications Continue Keppra IV No report of seizures prior to arrival, no seizures in house 3. Multiple electrolyte abnormalities Replete as needed 4. Transaminitis secondary to medication overdose versus shock liver versus choledocholithiasis: LFTs are trending down Hepatitis panel is negative GI consultation appreciated Monitor 5. LEONOR secondary to shock: Creatinine trending up but patient is now beginning to produce urine Nephrology consultation Continue IV fluids 6. Severe pancreatitis: Likely secondary to gallstone pancreatitis versus meds , psych meds Cert Pharmacy Tech has been consulted Follow up GI recommendations Prophylaxis: Heparin Problems: Subjective 24 Hr Interval Summary Free Text/Dictation Patient remains intubated and sedated Vent setting FiO2 of 35% , tidal volume 415 with a PEEP of 5 Sedated via Versed and fentanyl Off pressors 24 hours On D10 W with 2 amp bicarb at 50 cc/h Exam/Review of Systems Vital Signs Vitals Vital Signs Date Time Temp Pulse Resp B/P Pulse Ox O2 Delivery O2 Flow Rate FiO2 01/09/17 09:32 108 26 99 35 01/09/17 08:00 98.4 109/72 Mechanical Ventilator Intake and Output 01/08/17 01/08/17 01/09/17 15:00 23:00 07:00 Intake Total 950 ml 890 ml 0 ml Output Total 440 ml 280 ml 475 ml Balance 510 ml 610 ml -475 ml Exam General: The patient is intubated and sedated , upon sedation holiday patient becomes agitated HEENT: Atraumatic, normocephalic. The pupils are equal and symmetric. Neck: Supple Chest: Normal Lungs: Decreased breath sounds bilateral lower lung field Heart: Normal S1-S2, Regular rhythm and rate. Abdomen: Soft , nontender, minimally distended , bowel sounds are present. Extremities: Normal to inspection, trace edema no cyanosis Neurologic: Patient is arousable during sedation holiday Results Result Diagram: 01/09/17 0415 01/09/17 0415 Results 24 hrs Laboratory Tests Test 01/08/17 11:55 01/08/17 16:53 01/08/17 20:59 01/09/17 01:10 Bedside Glucose 81 76 95 98 Test 01/09/17 04:15 01/09/17 05:00 01/09/17 05:37 01/09/17 08:56 White Blood Count 11.2 #H Red Blood Count 2.65 L Hemoglobin 7.9 L Hematocrit 23.6 L Mean Corpuscular Volume 89.1 Mean Corpuscular Hemoglobin 29.8 Mean Corpuscular Hemoglobin Concent 33.5 Red Cell Distribution Width 14.4 Platelet Count 124 L Mean Platelet Volume 11.1 H Neutrophils % 88.3 H Lymphocytes % 6.1 L Monocytes % 4.1 Eosinophils % 0.4 Basophils % 0.3 Nucleated Red Blood Cells % 0.0 Neutrophils # 9.9 H Lymphocytes # 0.7 L Monocytes # 0.5 Eosinophils # 0.0 Basophils # 0.0 Nucleated Red Blood Cells # 0.0 Sodium Level 136 Potassium Level 3.8 Chloride Level 103 Carbon Dioxide Level 19 L Anion Gap 18 H Blood Urea Nitrogen 58 H Creatinine 5.61 H Glucose Level 93 Lactic Acid Level 1.3 Calcium Level 6.3 L Phosphorus Level 5.4 H Magnesium Level 2.1 Total Bilirubin 1.1 Direct Bilirubin 0.90 H Indirect Bilirubin 0.2 Aspartate Amino Transf (AST/SGOT) 124 H Alanine Aminotransferase (ALT/SGPT) 130 H Alkaline Phosphatase 154 H Total Protein 4.3 L Albumin 2.4 L Globulin 1.90 Albumin/Globulin Ratio 1.26 Lipase 622 H Blood Gas Specimen Source Blood arterial Arterial Blood Date Drawn 01/09/2017 5:09:02 AM Arterial Blood pH (Temp corrected) 7.403 Arterial Blood pCO2 (Temp correct) 30.1 L Arterial Blood pO2 (Temp corrected) 111.4 H Arterial Blood HCO3 18.4 L Arterial Blood Base Excess -5.6 L Arterial Blood Oxygen Saturation 97.4 Rashad Test ACCEPTAB Arterial Blood Gas Puncture Site Left Radial Arterial Blood Carboxyhemoglobin 0.3 Arterial Blood Methemoglobin 0.2 Blood Gas A-a O2 Differential 103.2 H Oxyhemoglobin Percent 96.9 Total Hemoglobin 9.2 L Blood Gas Temperature 37.0 Blood Gas Respiration Rate 26.0 Blood Gas Actual Respiration Rate 26 Blood Gas Modality VENT - AC FiO2 35.0 Blood Gas Tidal Volume 450.0 Blood Gas Low PEEP Setting 5.0 Blood Gas Notified Whom RTR Blood Gas Notified Time 01/09/2017 5:46:28 AM Bedside Glucose 99 103 Medications Medications Current Medications Ondansetron HCl (Zofran Inj) 4 mg Q6H PRN IV NAUSEA AND/OR VOMITING; Start 01/04 at 19:30 Acetaminophen/ Hydrocodone Bitart ([place] (5/325)) 1 tab Q6H PRN PO MODERATE PAIN LEVEL 4-6; Start 01/04/17 at 19:30 Morphine Sulfate (morphine) 2 mg Q4H PRN IV SEVERE PAIN LEVEL 7-10 Last administered on 01/08/17 11:21; Admin Dose 2 MG; Start 01/04/17 at 19:30 Docusate Sodium (Colace) 100 mg Q12H PRN PO CONSTIPATION; Start 01/04/17 at 19: 30 Magnesium Hydroxide (Milk Of Mag) 30 ml DAILY PRN PO CONSTIPATION; Start at 19:30 Sodium Biphosphate/ Sodium Phosphate (Fleet Enema) 133 ml DAILY PRN [place] CONSTIPATION; Start 01/04/17 at 19:30 Heparin Sodium (Porcine) (Heparin (5000 Units/0.5 ml)) 5,000 unit Q12 SC Last administered on 01/09/17 09:00; Admin Dose 5,000 UNIT; Start 01/04/17 at 21:00 Lorazepam (Ativan) 0.5 mg Q6H PRN IV ANXIETY Last administered on 01/08/17 05: 58; Admin Dose 0.5 MG; Start 01/04/17 at 19:30 Hydralazine HCl (Apresoline) 10 mg Q6H PRN IV ELEVATED BLOOD PRESSURE; Start at 19:30 Nitroglycerin (Nitroglycerin (Sl Tab) 0.4 Mg) 1 tab Q5M PRN SL ANGINA; Start at 19:30 Insulin Aspart (Novolog Insulin Pen) NOVOLOG *MILD* ALGORI... Q4 SC Last administered on 01/06/17 20:40; Admin Dose 1 UNIT; Start 01/04/17 at 21:00 Phenobarbital (Luminal) 64.8 mg BID PO Last administered on 01/04/17 23:45; Admin Dose 64.8 MG; Start 01/04/17 at 21:00; Status Future Hold Topiramate (Topamax) 200 mg BID PO ; Start 01/05/17 at 21:00; Status Future Hold Miscellaneous Information 1 ea NOTE XX ; Start 01/04/17 at 19:30 Glucose (Glutose) 15 gm Q15M PRN PO DECREASED GLUCOSE; Start 01/04/17 at 19:30 Glucose (Glutose) 22.5 gm Q15M PRN PO DECREASED GLUCOSE; Start 01/04/17 at 19:30 Dextrose (D50w Syringe) 25 ml Q15M PRN IV DECREASED GLUCOSE Last administered on 01/08/17 05:36; Admin Dose 25 ML; Start 01/04/17 at 19:30 Dextrose (D50w Syringe) 50 ml Q15M PRN IV DECREASED GLUCOSE; Start 01/04/17 at 19:30 Glucagon (Glucagen) 1 mg Q15M PRN IM DECREASED GLUCOSE; Start 01/04/17 at 19:30 Glucose (Glutose) 15 gm Q15M PRN BUCCAL DECREASED GLUCOSE; Start 01/04/17 at 19: 30 Phenytoin (Dilantin Susp Cup) 100 mg TID PO Last administered on 01/04/17 23:44 ; Admin Dose 100 MG; Start 01/04/17 at 21:50; Status Future Hold Clonazepam 0.5 mg 0.5 mg Q8H PO Last administered on 01/04/17 23:45; Admin Dose 0.5 MG; Start 01/04/17 at 23:00; Status Future Hold Norepinephrine 16 mg/Dextrose 500 ml @ 1.87 mls/hr TITRATE IV Last administered on 01/07/17 00:23; Admin Dose 15 MLS/HR; Start 01/05/17 at 00:30 Fentanyl 100 ml @ 2.5 mls/hr TITRATE IV Last administered on 01/09/17 03:52; Admin Dose 10 MLS/HR; Start 01/05/17 at 08:39 Midazolam HCl 50 ml @ 1 mls/hr TITRATE IV Last administered on 01/09/17 09:31 ; Admin Dose 10 MLS/HR; Start 01/05/17 at 08:41 Levetiracetam 100 ml @ 400 mls/hr Q12 IVPB Last administered on 01/09/17 08: 58; Admin Dose 400 MLS/HR; Start 01/05/17 at 11:30 Vasopressin 60 unit/Dextrose 60 ml @ 1.2 mls/hr Q12H IV Last administered on 22:32; Admin Dose 2.4 MLS/HR; Start 01/05/17 at 17:30 Epinephrine 4 mg/ Sodium Chloride 250 ml @ 0 mls/hr TITRATE IV ; Start 01/05/17 at 18:30 Phenylephrine HCl/ Dextrose (Robert-Syneph/D5W) 500 ml @ 18.75 mls/ hr TITRATE IV Last administered on 01/07/17 23:21; Admin Dose 26.25 MLS/HR; Start 01/05/17 at 20:30 Acetaminophen 650 mg 650 mg Q4H PRN NGT PAIN AND OR ELEVATED TEMP Last administered on 01/06/17 04:29; Admin Dose 650 MG; Start 01/06/17 at 04:30 Piperacillin Sod/ Tazobactam Sod (Zosyn 2.25gm/ 50ml (Pmx)) 50 ml @ 100 mls/hr Q8 IVPB Last administered on 01/09/17 05:39; Admin Dose 100 MLS/HR; Start 01/06 at 14:00 Insulin Glargine 10 unit 10 unit DAILY SC Last administered on 01/07/17 08:19; Admin Dose 10 UNIT; Start 01/06/17 at 14:00; Status Future Hold Sodium Bicarbonate 100 meq/Dextrose 1,100 ml @ 50 mls/hr Q22H IV Last administered on 01/09/17 01:11; Admin Dose 50 MLS/HR; Start 01/08/17 at 05:57 Bumetanide/ Dextrose/Water (Bumex/D5W) 120 ml @ 10 mls/hr Q12H ONCE IV Last administered on 01/09/17 09:23; Admin Dose 10 MLS/HR; Start 01/09/17 at 08:00; Stop 01/09/17 at 19:59 Epoetin Mina (Epogen (Non Esrd/Non Oncology)) 10,000 units MoWeFr@17 SC ; Start 01/09/17 at 17:00 GAYE BARRON MD Jan 09, 2017 10:49
--- NOTE | 2017-01-09 11:16 | CONS ---
Date/Time of Note Date/Time of Note DATE: 01/09/17 TIME: 11:15 Assessment/Plan Assessment/Plan Chief Complaint/Hosp Course History of abdominal pain and because of that patient came to the emergency room she was found to have acute pancreatitis She also developed respiratory distress sequently she is intubated and she is currently in the intensive care unit Details of the medical history not available because he is intubated and cannot reach the family members Problems: Additional Assessment/Plan severe pancreatitis\ct abd [p] Consultation Date/Type/Reason Admit Date/Time Jan 04, 2017 at 19:10 Initial Consult Date 01/05/17 Type of Consultation: Pulm/CCM Referring Provider: YING CASTAÑEDA 24 HR Interval Summary Free Text/Dictation no change no pressors Exam/Review of Systems Vital Signs Vitals Vital Signs Date Time Temp Pulse Resp B/P Pulse Ox O2 Delivery O2 Flow Rate FiO2 01/09/17 11:05 114 26 99 35 01/09/17 08:00 98.4 109/72 Mechanical Ventilator Intake and Output 01/08/17 01/08/17 01/09/17 15:00 23:00 07:00 Intake Total 950 ml 890 ml 0 ml Output Total 440 ml 280 ml 475 ml Balance 510 ml 610 ml -475 ml Results Result Diagram: 01/09/17 0415 01/09/17 0415 Results 24 hrs Laboratory Tests Test 01/08/17 11:55 01/08/17 16:53 01/08/17 20:59 01/09/17 01:10 Bedside Glucose 81 76 95 98 Test 01/09/17 04:15 01/09/17 05:00 01/09/17 05:37 01/09/17 08:56 White Blood Count 11.2 #H Red Blood Count 2.65 L Hemoglobin 7.9 L Hematocrit 23.6 L Mean Corpuscular Volume 89.1 Mean Corpuscular Hemoglobin 29.8 Mean Corpuscular Hemoglobin Concent 33.5 Red Cell Distribution Width 14.4 Platelet Count 124 L Mean Platelet Volume 11.1 H Neutrophils % 88.3 H Lymphocytes % 6.1 L Monocytes % 4.1 Eosinophils % 0.4 Basophils % 0.3 Nucleated Red Blood Cells % 0.0 Neutrophils # 9.9 H Lymphocytes # 0.7 L Monocytes # 0.5 Eosinophils # 0.0 Basophils # 0.0 Nucleated Red Blood Cells # 0.0 Sodium Level 136 Potassium Level 3.8 Chloride Level 103 Carbon Dioxide Level 19 L Anion Gap 18 H Blood Urea Nitrogen 58 H Creatinine 5.61 H Glucose Level 93 Lactic Acid Level 1.3 Calcium Level 6.3 L Phosphorus Level 5.4 H Magnesium Level 2.1 Total Bilirubin 1.1 Direct Bilirubin 0.90 H Indirect Bilirubin 0.2 Aspartate Amino Transf (AST/SGOT) 124 H Alanine Aminotransferase (ALT/SGPT) 130 H Alkaline Phosphatase 154 H Total Protein 4.3 L Albumin 2.4 L Globulin 1.90 Albumin/Globulin Ratio 1.26 Lipase 622 H Blood Gas Specimen Source Blood arterial Arterial Blood Date Drawn 01/09/2017 5:09:02 AM Arterial Blood pH (Temp corrected) 7.403 Arterial Blood pCO2 (Temp correct) 30.1 L Arterial Blood pO2 (Temp corrected) 111.4 H Arterial Blood HCO3 18.4 L Arterial Blood Base Excess -5.6 L Arterial Blood Oxygen Saturation 97.4 Rashad Test ACCEPTAB Arterial Blood Gas Puncture Site Left Radial Arterial Blood Carboxyhemoglobin 0.3 Arterial Blood Methemoglobin 0.2 Blood Gas A-a O2 Differential 103.2 H Oxyhemoglobin Percent 96.9 Total Hemoglobin 9.2 L Blood Gas Temperature 37.0 Blood Gas Respiration Rate 26.0 Blood Gas Actual Respiration Rate 26 Blood Gas Modality VENT - AC FiO2 35.0 Blood Gas Tidal Volume 450.0 Blood Gas Low PEEP Setting 5.0 Blood Gas Notified Whom RTR Blood Gas Notified Time 01/09/2017 5:46:28 AM Bedside Glucose 99 103 Medications Medications Current Medications Ondansetron HCl (Zofran Inj) 4 mg Q6H PRN IV NAUSEA AND/OR VOMITING; Start 01/04 at 19:30 Acetaminophen/ Hydrocodone Bitart ([place] (5/325)) 1 tab Q6H PRN PO MODERATE PAIN LEVEL 4-6; Start 01/04/17 at 19:30 Morphine Sulfate (morphine) 2 mg Q4H PRN IV SEVERE PAIN LEVEL 7-10 Last administered on 01/08/17t 11:21; Admin Dose 2 MG; Start 01/04/17 at 19:30 Docusate Sodium (Colace) 100 mg Q12H PRN PO CONSTIPATION; Start 01/04/17 at 19: 30 Magnesium Hydroxide (Milk Of Mag) 30 ml DAILY PRN PO CONSTIPATION; Start at 19:30 Sodium Biphosphate/ Sodium Phosphate (Fleet Enema) 133 ml DAILY PRN [place] CONSTIPATION; Start 01/04/17 at 19:30 Heparin Sodium (Porcine) (Heparin (5000 Units/0.5 ml)) 5,000 unit Q12 SC Last administered on 01/09/17 09:00; Admin Dose 5,000 UNIT; Start 01/04/17 at 21:00 Lorazepam (Ativan) 0.5 mg Q6H PRN IV ANXIETY Last administered on 01/08/17 05: 58; Admin Dose 0.5 MG; Start 01/04/17 at 19:30 Hydralazine HCl (Apresoline) 10 mg Q6H PRN IV ELEVATED BLOOD PRESSURE; Start at 19:30 Nitroglycerin (Nitroglycerin (Sl Tab) 0.4 Mg) 1 tab Q5M PRN SL ANGINA; Start at 19:30 Insulin Aspart (Novolog Insulin Pen) NOVOLOG *MILD* ALGORI... Q4 SC Last administered on 01/06/17 20:40; Admin Dose 1 UNIT; Start 01/04/17 at 21:00 Phenobarbital (Luminal) 64.8 mg BID PO Last administered on 01/04/17 23:45; Admin Dose 64.8 MG; Start 01/04/17 at 21:00; Status Future Hold Topiramate (Topamax) 200 mg BID PO ; Start 01/05/17 at 21:00; Status Future Hold Miscellaneous Information 1 ea NOTE XX ; Start 01/04/17 at 19:30 Glucose (Glutose) 15 gm Q15M PRN PO DECREASED GLUCOSE; Start 01/04/17 at 19:30 Glucose (Glutose) 22.5 gm Q15M PRN PO DECREASED GLUCOSE; Start 01/04/17 at 19:30 Dextrose (D50w Syringe) 25 ml Q15M PRN IV DECREASED GLUCOSE Last administered on 01/08/17 05:36; Admin Dose 25 ML; Start 01/04/17 at 19:30 Dextrose (D50w Syringe) 50 ml Q15M PRN IV DECREASED GLUCOSE; Start 01/04/17 at 19:30 Glucagon (Glucagen) 1 mg Q15M PRN IM DECREASED GLUCOSE; Start 01/04/17 at 19:30 Glucose (Glutose) 15 gm Q15M PRN BUCCAL DECREASED GLUCOSE; Start 01/04/17 at 19: 30 Phenytoin (Dilantin Susp Cup) 100 mg TID PO Last administered on 01/04/17 23:44 ; Admin Dose 100 MG; Start 01/04/17 at 21:50; Status Future Hold Clonazepam 0.5 mg 0.5 mg Q8H PO Last administered on 01/04/17 23:45; Admin Dose 0.5 MG; Start 01/04/17 at 23:00; Status Future Hold Norepinephrine 16 mg/Dextrose 500 ml @ 1.87 mls/hr TITRATE IV Last administered on 01/07/17 00:23; Admin Dose 15 MLS/HR; Start 01/05/17 at 00:30 Fentanyl 100 ml @ 2.5 mls/hr TITRATE IV Last administered on 01/09/17 03:52; Admin Dose 10 MLS/HR; Start 01/05/17 at 08:39 Midazolam HCl 50 ml @ 1 mls/hr TITRATE IV Last administered on 01/09/17 09:31 ; Admin Dose 10 MLS/HR; Start 01/05/17 at 08:41 Levetiracetam 100 ml @ 400 mls/hr Q12 IVPB Last administered on 01/09/17 08: 58; Admin Dose 400 MLS/HR; Start 01/05/17 at 11:30 Vasopressin 60 unit/Dextrose 60 ml @ 1.2 mls/hr Q12H IV Last administered on 22:32; Admin Dose 2.4 MLS/HR; Start 01/05/17 at 17:30 Epinephrine 4 mg/ Sodium Chloride 250 ml @ 0 mls/hr TITRATE IV ; Start 01/05/17 at 18:30 Phenylephrine HCl/ Dextrose (Robert-Syneph/D5W) 500 ml @ 18.75 mls/ hr TITRATE IV Last administered on 01/07/17 23:21; Admin Dose 26.25 MLS/HR; Start 01/05/17 at 20:30 Acetaminophen 650 mg 650 mg Q4H PRN NGT PAIN AND OR ELEVATED TEMP Last administered on 01/06/17 04:29; Admin Dose 650 MG; Start 01/06/17 at 04:30 Piperacillin Sod/ Tazobactam Sod (Zosyn 2.25gm/ 50ml (Pmx)) 50 ml @ 100 mls/hr Q8 IVPB Last administered on 01/09/17 05:39; Admin Dose 100 MLS/HR; Start 01/06 at 14:00 Insulin Glargine 10 unit 10 unit DAILY SC Last administered on 01/07/17 08:19; Admin Dose 10 UNIT; Start 01/06/17 at 14:00; Status Future Hold Sodium Bicarbonate 100 meq/Dextrose 1,100 ml @ 50 mls/hr Q22H IV Last administered on 01/09/17 01:11; Admin Dose 50 MLS/HR; Start 01/08/17 at 05:57 Bumetanide/ Dextrose/Water (Bumex/D5W) 120 ml @ 10 mls/hr Q12H ONCE IV Last administered on 01/09/17 09:23; Admin Dose 10 MLS/HR; Start 01/09/17 at 08:00; Stop 01/09/17 at 19:59 Epoetin Mina (Epogen (Non Esrd/Non Oncology)) 10,000 units MoWeFr@17 SC ; Start 01/09/17 at 17:00 MYNOR MURPHY MD Jan 09, 2017 11:16
--- NOTE | 2017-01-09 12:23 | RADRPT ---
PROCEDURE: CT Abdomen and Pelvis without contrast. CLINICAL INDICATION: Pancreatitis, pain TECHNIQUE: CT of the abdomen and pelvis was performed on a multi-detector scanner without IV contr ast. Coronal and sagittal images were reformatted from the axial data set. One or more of the foll owing dose reduction techniques were used: automated exposure control, adjustment of the mA and/or kV according to patient size, use of iterative reconstruction technique. CTDI = 22.97 mGy. DLP = 14 75.65 mGy-cm. COMPARISON: CT, 01/04/2017 FINDINGS: CT abdomen: There are moderate to large bilateral pleural effusions, with associated bibasilar atelectasis. The heart size is normal, without pericardial effusion. Coronary arterial calcification is noted. Yvonne er and gallbladder are grossly unremarkable. Biliary tree is prominent - common duct diameter is ap proximately 14 mm. Moderate to large amount of peripancreatic and bilateral retroperitoneal fluid is present. No loculated peripancreatic fluid collection is identified. Spleen, adrenal glands and k idneys are unremarkable. No urolithiasis or obstructive uropathy is identified. Nasogastric tube t ip is within the stomach. The aorta is of normal caliber. Aortic vascular calcifications are present. There is no retroperit prajapati lymphadenopathy. The erin hepatis region is clear. CT pelvis: There is no bowel obstruction, free intraperitoneal air or abscess. No diverticulosis, diverticulit is, colitis or appendicitis is seen. Mild amount of peritoneal free fluid is present. Matias cathet er balloon is within the urinary bladder. Uterus and adnexa are grossly unremarkable. Right femora l central venous catheter is in place. Diffuse anasarca is noted. The surrounding osseous structures are unremarkable. No osteolytic or osteoblastic lesion is detect ed. IMPRESSION: 1. There is moderate to severe acute pancreatitis, with increased amount of peripancreatic and retr operitoneal fluid when compared to the prior exam. No loculated peripancreatic collection is identi fied. 2. Biliary tree is prominent - common bile duct diameter is approximately 14 mm, grossly unchanged from the prior CT. Distal common duct stone is not excluded. Consider MRCP for further evaluation. 3. There are moderate to large bilateral pleural effusions, with associated bibasilar atelectasis, significantly increased from the prior CT. Mild peritoneal free fluid and diffuse anasarca are noted , also increased. 4. Nasogastric tube, Matias catheter, and right femoral central venous catheter are in place. 5. Coronary arterial and aortoiliac atherosclerotic calcifications are present. 6. No mass, lymphadenopathy, or evidence of abscess is identified. RPTAT: JJ .Brent Schultz MD, MD Date Time Electronically viewed and signed by .Brent Schultz MD, on 01/09/2017 12:23 .R/
--- NOTE | 2017-01-09 12:41 | CONS ---
Date/Time of Note Date/Time of Note DATE: 01/09/17 TIME: 12:40 Consult Date/Type/Reason Admit Date/Time Jan 04, 2017 at 19:10 Initial Consult Date 01/05/17 Type of Consultation: Pulm/CCM Ordering Provider: YING CASTAÑEDA Subjective Patient remains on mechanical ventilation Objective Vital Signs Date Time Temp Pulse Resp B/P Pulse Ox O2 Delivery O2 Flow Rate FiO2 01/09/17 11:05 114 26 99 35 01/09/17 11:00 129/84 Mechanical Ventilator 01/09/17 08:00 98.4 Intake and Output 01/08/17 01/08/17 01/09/17 15:00 23:00 07:00 Intake Total 950 ml 890 ml 0 ml Output Total 440 ml 280 ml 475 ml Balance 510 ml 610 ml -475 ml Exam PHYSICAL EXAMINATION GENERAL: Elderly lady intubated in ventilation is comfortable at rest VITAL SIGNS: see below. HEENT: Pupils equal, round, and reactive to light. Tracheostomy site clean and intact. CARDIAC: S1, S2, 1/6 systolic ejection murmur CHEST: Diminished air entry bilaterally. ABDOMEN: Mildly distended. Bowel sounds present no guarding or rebound EXTREMITIES: No cyanosis, clubbing edema +1 NEUROLOGIC: Generalized weakness Results/Medications Result Diagram: 01/09/17 0415 01/09/17 0415 Results 24 hrs Laboratory Tests Test 01/08/17 16:53 01/08/17 20:59 01/09/17 01:10 01/09/17 04:15 Bedside Glucose 76 95 98 White Blood Count 11.2 #H Red Blood Count 2.65 L Hemoglobin 7.9 L Hematocrit 23.6 L Mean Corpuscular Volume 89.1 Mean Corpuscular Hemoglobin 29.8 Mean Corpuscular Hemoglobin Concent 33.5 Red Cell Distribution Width 14.4 Platelet Count 124 L Mean Platelet Volume 11.1 H Neutrophils % 88.3 H Lymphocytes % 6.1 L Monocytes % 4.1 Eosinophils % 0.4 Basophils % 0.3 Nucleated Red Blood Cells % 0.0 Neutrophils # 9.9 H Lymphocytes # 0.7 L Monocytes # 0.5 Eosinophils # 0.0 Basophils # 0.0 Nucleated Red Blood Cells # 0.0 Sodium Level 136 Potassium Level 3.8 Chloride Level 103 Carbon Dioxide Level 19 L Anion Gap 18 H Blood Urea Nitrogen 58 H Creatinine 5.61 H Glucose Level 93 Lactic Acid Level 1.3 Calcium Level 6.3 L Phosphorus Level 5.4 H Magnesium Level 2.1 Total Bilirubin 1.1 Direct Bilirubin 0.90 H Indirect Bilirubin 0.2 Aspartate Amino Transf (AST/SGOT) 124 H Alanine Aminotransferase (ALT/SGPT) 130 H Alkaline Phosphatase 154 H Total Protein 4.3 L Albumin 2.4 L Globulin 1.90 Albumin/Globulin Ratio 1.26 Lipase 622 H Test 01/09/17 05:00 01/09/17 05:37 01/09/17 08:56 01/09/17 11:47 Blood Gas Specimen Source Blood arterial Arterial Blood Date Drawn 01/09/2017 5:09:02 AM Arterial Blood pH (Temp corrected) 7.403 Arterial Blood pCO2 (Temp correct) 30.1 L Arterial Blood pO2 (Temp corrected) 111.4 H Arterial Blood HCO3 18.4 L Arterial Blood Base Excess -5.6 L Arterial Blood Oxygen Saturation 97.4 Rahsad Test ACCEPTAB Arterial Blood Gas Puncture Site Left Radial Arterial Blood Carboxyhemoglobin 0.3 Arterial Blood Methemoglobin 0.2 Blood Gas A-a O2 Differential 103.2 H Oxyhemoglobin Percent 96.9 Total Hemoglobin 9.2 L Blood Gas Temperature 37.0 Blood Gas Respiration Rate 26.0 Blood Gas Actual Respiration Rate 26 Blood Gas Modality VENT - AC FiO2 35.0 Blood Gas Tidal Volume 450.0 Blood Gas Low PEEP Setting 5.0 Blood Gas Notified Whom RTR Blood Gas Notified Time 01/09/2017 5:46:28 AM Bedside Glucose 99 103 Lab Scanned Report REFERENCE LAB Medications Current Medications Ondansetron HCl (Zofran Inj) 4 mg Q6H PRN IV NAUSEA AND/OR VOMITING; Start 01/04 at 19:30 Acetaminophen/ Hydrocodone Bitart ([place] (5/325)) 1 tab Q6H PRN PO MODERATE PAIN LEVEL 4-6; Start 01/04/17 at 19:30 Morphine Sulfate (morphine) 2 mg Q4H PRN IV SEVERE PAIN LEVEL 7-10 Last administered on 01/08/17t 11:21; Admin Dose 2 MG; Start 01/04/17 at 19:30 Docusate Sodium (Colace) 100 mg Q12H PRN PO CONSTIPATION; Start 01/04/17 at 19: 30 Magnesium Hydroxide (Milk Of Mag) 30 ml DAILY PRN PO CONSTIPATION; Start at 19:30 Sodium Biphosphate/ Sodium Phosphate (Fleet Enema) 133 ml DAILY PRN [place] CONSTIPATION; Start 01/04/17 at 19:30 Heparin Sodium (Porcine) (Heparin (5000 Units/0.5 ml)) 5,000 unit Q12 SC Last administered on 01/09/17 09:00; Admin Dose 5,000 UNIT; Start 01/04/17 at 21:00 Lorazepam (Ativan) 0.5 mg Q6H PRN IV ANXIETY Last administered on 01/08/17 05: 58; Admin Dose 0.5 MG; Start 01/04/17 at 19:30 Hydralazine HCl (Apresoline) 10 mg Q6H PRN IV ELEVATED BLOOD PRESSURE; Start at 19:30 Nitroglycerin (Nitroglycerin (Sl Tab) 0.4 Mg) 1 tab Q5M PRN SL ANGINA; Start at 19:30 Insulin Aspart (Novolog Insulin Pen) NOVOLOG *MILD* ALGORI... Q4 SC Last administered on 01/06/17 20:40; Admin Dose 1 UNIT; Start 01/04/17 at 21:00 Phenobarbital (Luminal) 64.8 mg BID PO Last administered on 01/04/17 23:45; Admin Dose 64.8 MG; Start 01/04/17 at 21:00; Status Future Hold Topiramate (Topamax) 200 mg BID PO ; Start 01/05/17 at 21:00; Status Future Hold Miscellaneous Information 1 ea NOTE XX ; Start 01/04/17 at 19:30 Glucose (Glutose) 15 gm Q15M PRN PO DECREASED GLUCOSE; Start 01/04/17 at 19:30 Glucose (Glutose) 22.5 gm Q15M PRN PO DECREASED GLUCOSE; Start 01/04/17 at 19:30 Dextrose (D50w Syringe) 25 ml Q15M PRN IV DECREASED GLUCOSE Last administered on 01/08/17 05:36; Admin Dose 25 ML; Start 01/04/17 at 19:30 Dextrose (D50w Syringe) 50 ml Q15M PRN IV DECREASED GLUCOSE; Start 01/04/17 at 19:30 Glucagon (Glucagen) 1 mg Q15M PRN IM DECREASED GLUCOSE; Start 01/04/17 at 19:30 Glucose (Glutose) 15 gm Q15M PRN BUCCAL DECREASED GLUCOSE; Start 01/04/17 at 19: 30 Phenytoin (Dilantin Susp Cup) 100 mg TID PO Last administered on 01/04/17 23:44 ; Admin Dose 100 MG; Start 01/04/17 at 21:50; Status Future Hold Clonazepam 0.5 mg 0.5 mg Q8H PO Last administered on 01/04/17 23:45; Admin Dose 0.5 MG; Start 01/04/17 at 23:00; Status Future Hold Norepinephrine 16 mg/Dextrose 500 ml @ 1.87 mls/hr TITRATE IV Last administered on 01/07/17 00:23; Admin Dose 15 MLS/HR; Start 01/05/17 at 00:30 Fentanyl 100 ml @ 2.5 mls/hr TITRATE IV Last administered on 01/09/17 03:52; Admin Dose 10 MLS/HR; Start 01/05/17 at 08:39 Midazolam HCl 50 ml @ 1 mls/hr TITRATE IV Last administered on 01/09/17 09:31 ; Admin Dose 10 MLS/HR; Start 01/05/17 at 08:41 Levetiracetam 100 ml @ 400 mls/hr Q12 IVPB Last administered on 01/09/17 08: 58; Admin Dose 400 MLS/HR; Start 01/05/17 at 11:30 Vasopressin 60 unit/Dextrose 60 ml @ 1.2 mls/hr Q12H IV Last administered on 22:32; Admin Dose 2.4 MLS/HR; Start 01/05/17 at 17:30 Epinephrine 4 mg/ Sodium Chloride 250 ml @ 0 mls/hr TITRATE IV ; Start 01/05/17 at 18:30 Phenylephrine HCl/ Dextrose (Robert-Syneph/D5W) 500 ml @ 18.75 mls/ hr TITRATE IV Last administered on 01/07/17 23:21; Admin Dose 26.25 MLS/HR; Start 01/05/17 at 20:30 Acetaminophen 650 mg 650 mg Q4H PRN NGT PAIN AND OR ELEVATED TEMP Last administered on 01/06/17 04:29; Admin Dose 650 MG; Start 01/06/17 at 04:30 Piperacillin Sod/ Tazobactam Sod (Zosyn 2.25gm/ 50ml (Pmx)) 50 ml @ 100 mls/hr Q8 IVPB Last administered on 01/09/17 05:39; Admin Dose 100 MLS/HR; Start 01/06 at 14:00 Insulin Glargine 10 unit 10 unit DAILY SC Last administered on 01/07/17 08:19; Admin Dose 10 UNIT; Start 01/06/17 at 14:00; Status Future Hold Sodium Bicarbonate 100 meq/Dextrose 1,100 ml @ 50 mls/hr Q22H IV Last administered on 01/09/17 01:11; Admin Dose 50 MLS/HR; Start 01/08/17 at 05:57 Bumetanide/ Dextrose/Water (Bumex/D5W) 120 ml @ 10 mls/hr Q12H ONCE IV Last administered on 01/09/17 09:23; Admin Dose 10 MLS/HR; Start 01/09/17 at 08:00; Stop 01/09/17 at 19:59 Epoetin Mina (Epogen (Non Esrd/Non Oncology)) 10,000 units MoWeFr@17 SC ; Start 01/09/17 at 17:00 Assessment/Plan Chief Complaint/Hosp Course IMP: 1. Severe pancreatitis with septic shock 2. Metabolic acidosis secondary to above and ARF 3. Renal failure likely ATN 4. Hypoxemic respiratory failure secondary to above 5. History of seizure disorder RECS: 1. Continue albumin/lasix 2. Continue mechanical ventilation 3. Broad-spectrum antibiotic coverage 4. Nasogastric tube to suction 5. May require HD if not responsive to albumin and lasix 7. Reduce versed gtt; daily sedation vacation 8. Follow labs; lactate clearance [address] abdomen today Problems: AMPARO VALERIO MD, [facility] Jan 09, 2017 12:41
[2017-01-09] MEDS: FUROSEMIDE 20 MG INJ IV SCH ×2 (14:28→18:45)
--- NOTE | 2017-01-09 16:42 | CONS ---
Date/Time of Note Date/Time of Note DATE: 01/09/17 TIME: 16:39 Assessment/Plan Assessment/Plan Additional Assessment/Plan Paroxysmal supraventricular tachycardia concerning for atrial tachycardia and atrial fibrillation Severe sepsis Acute pancreatitis Preserved ejection fraction Respiratory failure, vent dependent Acute kidney injury Seizure disorder Psychiatric disorder Acute blood loss anemia -Telemetry reviewed with no further episodes of SVT. CT abdomen pelvis with evidence of pleural effusions. Patient undergoing diuresis as per our nephrology colleagues. If effusions are improved with diuresis and if issues with weaning, would consider thoracentesis. No AV flip blocking agents at the current time given labile blood pressure. Consultation Date/Type/Reason Admit Date/Time Jan 04, 2017 at 19:10 Initial Consult Date 01/05/17 Type of Consultation: cv Referring Provider: YING CASTAÑEDA 24 HR Interval Summary Free Text/Dictation Patient seen and examined, no new cardiac issues as per nursing staff Exam/Review of Systems Vital Signs Vitals Vital Signs Date Time Temp Pulse Resp B/P Pulse Ox O2 Delivery O2 Flow Rate FiO2 01/09/17 16:00 35 01/09/17 15:54 115 26 99 01/09/17 15:45 122/78 Mechanical Ventilator 01/09/17 12:00 98.0 Intake and Output 01/08/17 01/08/17 01/09/17 15:00 23:00 07:00 Intake Total 950 ml 890 ml 0 ml Output Total 440 ml 280 ml 475 ml Balance 510 ml 610 ml -475 ml Exam Sedated and intubated, no apparent distress Constitutional: obese Head: normocephalic ENMT: intubated Respiratory: other (Coarse breath sounds bilaterally, no wheezing) Cardiovascular: other (S1-S2 heard), regular rate and rhythm (Tachycardic) Gastrointestinal: bowel sounds, other (No grimacing with palpation), soft Extremities: edema Results Result Diagram: 01/09/17 0415 01/09/17 0415 Results 24 hrs Laboratory Tests Test 01/08/17 16:53 01/08/17 20:59 01/09/17 01:10 01/09/17 04:15 Bedside Glucose 76 95 98 White Blood Count 11.2 #H Red Blood Count 2.65 L Hemoglobin 7.9 L Hematocrit 23.6 L Mean Corpuscular Volume 89.1 Mean Corpuscular Hemoglobin 29.8 Mean Corpuscular Hemoglobin Concent 33.5 Red Cell Distribution Width 14.4 Platelet Count 124 L Mean Platelet Volume 11.1 H Neutrophils % 88.3 H Lymphocytes % 6.1 L Monocytes % 4.1 Eosinophils % 0.4 Basophils % 0.3 Nucleated Red Blood Cells % 0.0 Neutrophils # 9.9 H Lymphocytes # 0.7 L Monocytes # 0.5 Eosinophils # 0.0 Basophils # 0.0 Nucleated Red Blood Cells # 0.0 Sodium Level 136 Potassium Level 3.8 Chloride Level 103 Carbon Dioxide Level 19 L Anion Gap 18 H Blood Urea Nitrogen 58 H Creatinine 5.61 H Glucose Level 93 Lactic Acid Level 1.3 Calcium Level 6.3 L Phosphorus Level 5.4 H Magnesium Level 2.1 Total Bilirubin 1.1 Direct Bilirubin 0.90 H Indirect Bilirubin 0.2 Aspartate Amino Transf (AST/SGOT) 124 H Alanine Aminotransferase (ALT/SGPT) 130 H Alkaline Phosphatase 154 H Total Protein 4.3 L Albumin 2.4 L Globulin 1.90 Albumin/Globulin Ratio 1.26 Lipase 622 H Test 01/09/17 05:00 01/09/17 05:37 01/09/17 08:56 01/09/17 11:47 Blood Gas Specimen Source Blood arterial Arterial Blood Date Drawn 01/09/2017 5:09:02 AM Arterial Blood pH (Temp corrected) 7.403 Arterial Blood pCO2 (Temp correct) 30.1 L Arterial Blood pO2 (Temp corrected) 111.4 H Arterial Blood HCO3 18.4 L Arterial Blood Base Excess -5.6 L Arterial Blood Oxygen Saturation 97.4 Rashad Test ACCEPTAB Arterial Blood Gas Puncture Site Left Radial Arterial Blood Carboxyhemoglobin 0.3 Arterial Blood Methemoglobin 0.2 Blood Gas A-a O2 Differential 103.2 H Oxyhemoglobin Percent 96.9 Total Hemoglobin 9.2 L Blood Gas Temperature 37.0 Blood Gas Respiration Rate 26.0 Blood Gas Actual Respiration Rate 26 Blood Gas Modality VENT - AC FiO2 35.0 Blood Gas Tidal Volume 450.0 Blood Gas Low PEEP Setting 5.0 Blood Gas Notified Whom RTR Blood Gas Notified Time 01/09/2017 5:46:28 AM Bedside Glucose 99 103 Lab Scanned Report REFERENCE LAB Test 01/09/17 13:27 Bedside Glucose 112 Medications Medications Current Medications Ondansetron HCl (Zofran Inj) 4 mg Q6H PRN IV NAUSEA AND/OR VOMITING; Start 01/04 at 19:30 Acetaminophen/ Hydrocodone Bitart ([place] (5/325)) 1 tab Q6H PRN PO MODERATE PAIN LEVEL 4-6; Start 01/04/17 at 19:30 Morphine Sulfate (morphine) 2 mg Q4H PRN IV SEVERE PAIN LEVEL 7-10 Last administered on 01/08/17 11:21; Admin Dose 2 MG; Start 01/04/17 at 19:30 Docusate Sodium (Colace) 100 mg Q12H PRN PO CONSTIPATION; Start 01/04/17 at 19: 30 Magnesium Hydroxide (Milk Of Mag) 30 ml DAILY PRN PO CONSTIPATION; Start at 19:30 Sodium Biphosphate/ Sodium Phosphate (Fleet Enema) 133 ml DAILY PRN [place] CONSTIPATION; Start 01/04/17 at 19:30 Heparin Sodium (Porcine) (Heparin (5000 Units/0.5 ml)) 5,000 unit Q12 SC Last administered on 01/09/17 09:00; Admin Dose 5,000 UNIT; Start 01/04/17 at 21:00 Lorazepam (Ativan) 0.5 mg Q6H PRN IV ANXIETY Last administered on 01/08/17 05: 58; Admin Dose 0.5 MG; Start 01/04/17 at 19:30 Hydralazine HCl (Apresoline) 10 mg Q6H PRN IV ELEVATED BLOOD PRESSURE; Start at 19:30 Nitroglycerin (Nitroglycerin (Sl Tab) 0.4 Mg) 1 tab Q5M PRN SL ANGINA; Start at 19:30 Insulin Aspart (Novolog Insulin Pen) NOVOLOG *MILD* ALGORI... Q4 SC Last administered on 01/06/17 20:40; Admin Dose 1 UNIT; Start 01/04/17 at 21:00 Phenobarbital (Luminal) 64.8 mg BID PO Last administered on 01/04/17 23:45; Admin Dose 64.8 MG; Start 01/04/17 at 21:00; Status Future Hold Topiramate (Topamax) 200 mg BID PO ; Start 01/05/17 at 21:00; Status Future Hold Miscellaneous Information 1 ea NOTE XX ; Start 01/04/17 at 19:30 Glucose (Glutose) 15 gm Q15M PRN PO DECREASED GLUCOSE; Start 01/04/17 at 19:30 Glucose (Glutose) 22.5 gm Q15M PRN PO DECREASED GLUCOSE; Start 01/04/17 at 19:30 Dextrose (D50w Syringe) 25 ml Q15M PRN IV DECREASED GLUCOSE Last administered on 01/08/17 05:36; Admin Dose 25 ML; Start 01/04/17 at 19:30 Dextrose (D50w Syringe) 50 ml Q15M PRN IV DECREASED GLUCOSE; Start 01/04/17 at 19:30 Glucagon (Glucagen) 1 mg Q15M PRN IM DECREASED GLUCOSE; Start 01/04/17 at 19:30 Glucose (Glutose) 15 gm Q15M PRN BUCCAL DECREASED GLUCOSE; Start 01/04/17 at 19: 30 Phenytoin (Dilantin Susp Cup) 100 mg TID PO Last administered on 01/04/17 23:44 ; Admin Dose 100 MG; Start 01/04/17 at 21:50; Status Future Hold Clonazepam 0.5 mg 0.5 mg Q8H PO Last administered on 01/04/17 23:45; Admin Dose 0.5 MG; Start 01/04/17 at 23:00; Status Future Hold Norepinephrine 16 mg/Dextrose 500 ml @ 1.87 mls/hr TITRATE IV Last administered on 01/07/17 00:23; Admin Dose 15 MLS/HR; Start 01/05/17 at 00:30 Fentanyl 100 ml @ 2.5 mls/hr TITRATE IV Last administered on 01/09/17 14:14; Admin Dose 10 MLS/HR; Start 01/05/17 at 08:39 Midazolam HCl 50 ml @ 1 mls/hr TITRATE IV Last administered on 01/09/17 15:23 ; Admin Dose 10 MLS/HR; Start 01/05/17 at 08:41 Levetiracetam 100 ml @ 400 mls/hr Q12 IVPB Last administered on 01/09/17 08: 58; Admin Dose 400 MLS/HR; Start 01/05/17 at 11:30 Vasopressin 60 unit/Dextrose 60 ml @ 1.2 mls/hr Q12H IV Last administered on 22:32; Admin Dose 2.4 MLS/HR; Start 01/05/17 at 17:30 Epinephrine 4 mg/ Sodium Chloride 250 ml @ 0 mls/hr TITRATE IV ; Start 01/05/17 at 18:30 Phenylephrine HCl/ Dextrose (Robert-Syneph/D5W) 500 ml @ 18.75 mls/ hr TITRATE IV Last administered on 01/07/17 23:21; Admin Dose 26.25 MLS/HR; Start 01/05/17 at 20:30 Acetaminophen 650 mg 650 mg Q4H PRN NGT PAIN AND OR ELEVATED TEMP Last administered on 01/06/17 04:29; Admin Dose 650 MG; Start 01/06/17 at 04:30 Piperacillin Sod/ Tazobactam Sod (Zosyn 2.25gm/ 50ml (Pmx)) 50 ml @ 100 mls/hr Q8 IVPB Last administered on 01/09/17 14:36; Admin Dose 100 MLS/HR; Start 01/06 at 14:00 Insulin Glargine 10 unit 10 unit DAILY SC Last administered on 01/07/17 08:19; Admin Dose 10 UNIT; Start 01/06/17 at 14:00; Status Future Hold Sodium Bicarbonate 100 meq/Dextrose 1,100 ml @ 50 mls/hr Q22H IV Last administered on 01/09/17 01:11; Admin Dose 50 MLS/HR; Start 01/08/17 at 05:57 Bumetanide/ Dextrose/Water (Bumex/D5W) 120 ml @ 10 mls/hr Q12H ONCE IV Last administered on 01/09/17 09:23; Admin Dose 10 MLS/HR; Start 01/09/17 at 08:00; Stop 01/09/17 at 19:59 Epoetin Mina (Epogen (Non Esrd/Non Oncology)) 10,000 units MoWeFr@17 SC ; Start 01/09/17 at 17:00 Vlad Leyva DO Jan 09, 2017 16:42
[2017-01-09] MEDS: EPOETIN 10000 UNITS/ML (NON ESRD/NON ONCOLOGY) SC SCH (17:17)
[2017-01-10] VITALS (35 sets, daily range): BP systolic 99–148; BP diastolic 59–88; PULSE 87–134; RESP 17–32
[2017-01-10] MEDS: INSULIN ASPART [NOVOLOG] 3 ML PEN SC SCH ×6 (01:00→20:56)
[2017-01-10] MEDS: MIDAZOLAM (DRIP) 50 mg/50 mL 50 ML IV SCH ×4 (02:04→19:04)
[2017-01-10] MEDS: VASOPRESSIN 60 UNIT in DEXTROSE 5% 57 ML IV SCH ×2 (05:30→17:30)
[2017-01-10 06:21] LABS: ADD SCAN DIFF NO
[2017-01-10 06:47] LABS: BASOPHIL # 0.1 10^3/ul (0.0-0.1); BASOPHILS % 0.4 % (0.0-2.0); EOSINOPHILS % 0.2 % (0.0-7.0); HEMATOCRIT 29.6 % (37.0-47.0); HEMOGLOBIN 10.3 g/dl (12.0-16.0); LYMPHOCYTES # 0.7 10^3/ul (0.8-2.9); LYMPHOCYTES % 3.9 % (15.0-51.0); MEAN CORPUSCULAR HEMOGLOBIN 30.1 pg (29.0-33.0); MEAN CORPUSCULAR HGB CONC 34.8 g/dl (32.0-37.0); MEAN CORPUSCULAR VOLUME 86.5 fl (82.0-101.0); MEAN PLATELET VOLUME 10.9 fl (7.4-10.4); MONOCYTE # 0.6 10^3/ul (0.3-0.9); MONOCYTES % 3.3 % (0.0-11.0); NEUTROPHIL # 15.2 10^3/ul (1.6-7.5); PLATELET COUNT 165 10^3/UL (140-415); RED BLOOD COUNT 3.42 10^6/ul (4.20-5.40); RED CELL DISTRIBUTION WIDTH 14.2 % (11.5-14.5); WHITE BLOOD COUNT 16.6 10^3/ul (4.8-10.8)
[2017-01-10 06:55] LABS: NEUTROPHILS % 91.2 % (39.0-77.0)
[2017-01-10 07:16] LABS: CALCIUM 6.8 mg/dl (8.4-10.2); MAGNESIUM 2.1 mg/dl (1.7-2.5); PHOSPHORUS 5.6 mg/dl (2.5-4.9); POTASSIUM 3.4 mmol/L (3.5-5.1)
[2017-01-10 07:35] LABS: ALBUMIN 2.5 g/dl (3.3-4.9); BILIRUBIN,DIRECT 0.5 mg/dl (0.00-0.20); BILIRUBIN,INDIRECT 0.2 mg/dl (0-1.1); BILIRUBIN,TOTAL 0.7 mg/dl (0.2-1.3)
--- NOTE | 2017-01-10 07:43 | CONS ---
Date/Time of Note Date/Time of Note DATE: 01/10/17 TIME: 07:41 Assessment/Plan Assessment/Plan Chief Complaint/Hosp Course Admitted with abdominal pain and evidence of severe pancreatitis in otherwise good health. Problems: Additional Assessment/Plan 1. Severe pancreatitis 2. Acute renal failure, labs pending, dialysis will be needed if renal fx does not improve today or tomm, will rev with you, will resume bumex 3. Hypokalemia, will replete 4. Hyponatremia, IV modified 5. Start tube feeding? Consultation Date/Type/Reason Admit Date/Time Jan 04, 2017 at 19:10 Initial Consult Date 01/05/17 Type of Consultation: cv Referring Provider: YING CASTAÑEDA 24 HR Interval Summary Constitutional: other (intubated and sedated) Exam/Review of Systems Vital Signs Vitals Vital Signs Date Time Temp Pulse Resp B/P Pulse Ox O2 Delivery O2 Flow Rate FiO2 01/10/17 06:00 105 26 109/70 98 Mechanical Ventilator 01/10/17 05:28 30 01/10/17 04:00 100.2 Intake and Output 01/09/17 01/09/17 01/10/17 15:00 23:00 07:00 Intake Total 1020 ml 1220 ml 70 ml Output Total 425 ml 355 ml 385 ml Balance 595 ml 865 ml -315 ml Exam Neck: No jvd Respiratory: diminished breath sounds Cardiovascular: regular rate and rhythm Gastrointestinal: distended, other (grimaced with gentle palpation) Extremities: No edema (1-2+) Results Result Diagram: 01/10/17 0545 01/10/17 0545 Results 24 hrs Laboratory Tests Test 01/09/17 08:56 01/09/17 11:47 01/09/17 13:27 01/09/17 17:13 Bedside Glucose 103 112 97 Lab Scanned Report REFERENCE LAB Test 01/09/17 20:58 01/10/17 01:26 01/10/17 05:03 01/10/17 05:45 Bedside Glucose 83 89 Lab Scanned Report BLOOD TRANSFUSION White Blood Count 16.6 #H Red Blood Count 3.42 #L Hemoglobin 10.3 #L Hematocrit 29.6 #L Mean Corpuscular Volume 86.5 Mean Corpuscular Hemoglobin 30.1 Mean Corpuscular Hemoglobin Concent 34.8 Red Cell Distribution Width 14.2 Platelet Count 165 # Mean Platelet Volume 10.9 H Neutrophils % 91.2 H Lymphocytes % 3.9 L Monocytes % 3.3 Eosinophils % 0.2 Basophils % 0.4 Nucleated Red Blood Cells % 0.0 Neutrophils # 15.2 H Lymphocytes # 0.7 L Monocytes # 0.6 Eosinophils # 0.0 Basophils # 0.1 Nucleated Red Blood Cells # 0.0 Sodium Level 130 L Potassium Level 3.4 L Chloride Level 99 Carbon Dioxide Level 22 Anion Gap 12 Blood Urea Nitrogen 67 H Creatinine Pending Glucose Level 76 Calcium Level 6.8 L Phosphorus Level 5.6 H Magnesium Level 2.1 Total Bilirubin 0.7 Direct Bilirubin 0.50 #H Indirect Bilirubin 0.2 Aspartate Amino Transf (AST/SGOT) 42 Alanine Aminotransferase (ALT/SGPT) 75 H Alkaline Phosphatase 186 H Total Protein 5.0 L Albumin 2.5 L Test 01/10/17 05:51 Bedside Glucose 83 Medications Medications Current Medications Ondansetron HCl (Zofran Inj) 4 mg Q6H PRN IV NAUSEA AND/OR VOMITING; Start 01/04 at 19:30 Acetaminophen/ Hydrocodone Bitart ([place] (5/325)) 1 tab Q6H PRN PO MODERATE PAIN LEVEL 4-6; Start 01/04/17 at 19:30 Morphine Sulfate (morphine) 2 mg Q4H PRN IV SEVERE PAIN LEVEL 7-10 Last administered on 01/08/17 11:21; Admin Dose 2 MG; Start 01/04/17 at 19:30 Docusate Sodium (Colace) 100 mg Q12H PRN PO CONSTIPATION; Start 01/04/17 at 19: 30 Magnesium Hydroxide (Milk Of Mag) 30 ml DAILY PRN PO CONSTIPATION; Start at 19:30 Sodium Biphosphate/ Sodium Phosphate (Fleet Enema) 133 ml DAILY PRN [place] CONSTIPATION; Start 01/04/17 at 19:30 Heparin Sodium (Porcine) (Heparin (5000 Units/0.5 ml)) 5,000 unit Q12 SC Last administered on 01/09/17 20:59; Admin Dose 5,000 UNIT; Start 01/04/17 at 21:00 Lorazepam (Ativan) 0.5 mg Q6H PRN IV ANXIETY Last administered on 01/08/17 05: 58; Admin Dose 0.5 MG; Start 01/04/17 at 19:30 Hydralazine HCl (Apresoline) 10 mg Q6H PRN IV ELEVATED BLOOD PRESSURE; Start at 19:30 Nitroglycerin (Nitroglycerin (Sl Tab) 0.4 Mg) 1 tab Q5M PRN SL ANGINA; Start at 19:30 Insulin Aspart (Novolog Insulin Pen) NOVOLOG *MILD* ALGORI... Q4 SC Last administered on 01/06/17 20:40; Admin Dose 1 UNIT; Start 01/04/17 at 21:00 Phenobarbital (Luminal) 64.8 mg BID PO Last administered on 01/04/17 23:45; Admin Dose 64.8 MG; Start 01/04/17 at 21:00; Status Future Hold Topiramate (Topamax) 200 mg BID PO ; Start 01/05/17 at 21:00; Status Future Hold Miscellaneous Information 1 ea NOTE XX ; Start 01/04/17 at 19:30 Glucose (Glutose) 15 gm Q15M PRN PO DECREASED GLUCOSE; Start 01/04/17 at 19:30 Glucose (Glutose) 22.5 gm Q15M PRN PO DECREASED GLUCOSE; Start 01/04/17 at 19:30 Dextrose (D50w Syringe) 25 ml Q15M PRN IV DECREASED GLUCOSE Last administered on 01/08/17 05:36; Admin Dose 25 ML; Start 01/04/17 at 19:30 Dextrose (D50w Syringe) 50 ml Q15M PRN IV DECREASED GLUCOSE; Start 01/04/17 at 19:30 Glucagon (Glucagen) 1 mg Q15M PRN IM DECREASED GLUCOSE; Start 01/04/17 at 19:30 Glucose (Glutose) 15 gm Q15M PRN BUCCAL DECREASED GLUCOSE; Start 01/04/17 at 19: 30 Phenytoin (Dilantin Susp Cup) 100 mg TID PO Last administered on 01/04/17 23:44 ; Admin Dose 100 MG; Start 01/04/17 at 21:50; Status Future Hold Clonazepam 0.5 mg 0.5 mg Q8H PO Last administered on 01/04/17 23:45; Admin Dose 0.5 MG; Start 01/04/17 at 23:00; Status Future Hold Norepinephrine 16 mg/Dextrose 500 ml @ 1.87 mls/hr TITRATE IV Last administered on 01/07/17 00:23; Admin Dose 15 MLS/HR; Start 01/05/17 at 00:30 Fentanyl 100 ml @ 2.5 mls/hr TITRATE IV Last administered on 01/09/17 22:31; Admin Dose 10 MLS/HR; Start 01/05/17 at 08:39 Midazolam HCl 50 ml @ 1 mls/hr TITRATE IV Last administered on 01/10/17 02:04 ; Admin Dose 1 MLS/HR; Start 01/05/17 at 08:41 Levetiracetam 100 ml @ 400 mls/hr Q12 IVPB Last administered on 01/09/17 21: 00; Admin Dose 400 MLS/HR; Start 01/05/17 at 11:30 Vasopressin 60 unit/Dextrose 60 ml @ 1.2 mls/hr Q12H IV Last administered on 22:32; Admin Dose 2.4 MLS/HR; Start 01/05/17 at 17:30 Epinephrine 4 mg/ Sodium Chloride 250 ml @ 0 mls/hr TITRATE IV ; Start 01/05/17 at 18:30 Phenylephrine HCl/ Dextrose (Robert-Syneph/D5W) 500 ml @ 18.75 mls/ hr TITRATE IV Last administered on 01/07/17 23:21; Admin Dose 26.25 MLS/HR; Start 01/05/17 at 20:30 Acetaminophen 650 mg 650 mg Q4H PRN NGT PAIN AND OR ELEVATED TEMP Last administered on 01/06/17 04:29; Admin Dose 650 MG; Start 01/06/17 at 04:30 Piperacillin Sod/ Tazobactam Sod (Zosyn 2.25gm/ 50ml (Pmx)) 50 ml @ 100 mls/hr Q8 IVPB Last administered on 01/09/17 22:31; Admin Dose 100 MLS/HR; Start 01/06 at 14:00 Insulin Glargine 10 unit 10 unit DAILY SC Last administered on 01/07/17 08:19; Admin Dose 10 UNIT; Start 01/06/17 at 14:00; Status Future Hold Sodium Bicarbonate/ Dextrose (Na Bicarb/D10w) 1,100 ml @ 50 mls/hr Q22H IV Last administered on 01/09/17 22:31; Admin Dose 50 MLS/HR; Start 01/08/17 at 05: 57 Epoetin Mina 14330 units 10,000 units MoWeFr@17 SC Last administered on 17:17; Admin Dose 10,000 UNITS; Start 01/09/17 at 17:00 Acetaminophen 100 ml @ 400 mls/hr Q6H PRN IVPB FEVER; Start 01/10/17 at 06:30 Potassium Chloride (KCl 20 MEQ/50 ML SW) 50 ml @ 25 mls/hr Q2H IVPB ; Start 05/19 at 08:00; Stop 01/10/17 at 13:59; Status UNV FRANCIS JULES MD Jan 10, 2017 07:43
[2017-01-10 07:45] LABS: IRON 14 ug/dl (35-150)
[2017-01-10 07:54] LABS: TOTAL IRON BINDING CAPACITY 129 ug/dl (241-421)
[2017-01-10] MEDS ORDERED: DEXTROSE 5%-0.9% NACL 1,000 ML IV SCH (08:00)
[2017-01-10] MEDS: POTASSIUM CHLORIDE 50 ML IVPB SCH ×3 (08:00→12:32)
[2017-01-10 08:10] LABS: CREATININE 5.8 mg/dl (0.44-1.00)
[2017-01-10] MEDS ORDERED: LIDOCAINE 1% (MPF) 5 ML VIAL SC ONE (09:00)
[2017-01-10] MEDS: FENTAnyl (DRIP) 1000 mcg/100mL 100 ML IV SCH ×2 (09:08→19:05)
[2017-01-10] MEDS: ACETAMINOPHEN 1000MG/100ML IV 100 ML IVPB PRN (09:11)
[2017-01-10] MEDS: LEVETIRACETAM 1000 MG (PMX) 100 ML IVPB SCH ×2 (09:20→20:53)
[2017-01-10] MEDS: BUMETANIDE 25 MG in DEXTROSE 5% 150 ML IV SCH (09:34)
[2017-01-10] MEDS: PIPER-TAZO 2.25 GM (PMX) 50 ML IVPB SCH ×3 (09:34→20:53)
[2017-01-10] MEDS: HEPARIN 5,000 UNIT/0.5 ML VIAL SC SCH ×2 (09:36→20:55)
--- NOTE | 2017-01-10 10:10 | PN ---
Date/Time of Note Date/Time of Note DATE: 01/10/17 TIME: 10:06 Assessment/Plan VTE Prophylaxis VTE Prophylaxis Intervention: SCD's Lines/Catheters IV Catheter Type (from [facility]): Central Line Central line still needed: Yes Urinary Cath still in place: Yes Reason Cath still needed: other (indicate) Assessment/Plan Chief Complaint/Hosp Course Chief Complaint/Hosp Course 1. Severe shock secondary to severe Pancreatitis and/or sepsis from staph bacteremia: Continue broad-spectrum IV antibiotics Ultrasound shows no gallstones but CT abdomen shows biliary ductal dilation without gallstones LFTs are elevated as is lipase, trending down GI consultation appreciated, patient is unstable for MRCP at this time secondary to agitation , recommend to proceed with ERCP as per automobile rental representative. Patient is at moderate to high risk for ERCP Patient has been weaned off pressors Continue broad-spectrum antibiotics with vancomycin and Zosyn Urine culture is positive for E. coli but UA does not show significant pyuria, one blood culture is positive for staph, continue broad-spectrum antibiotics Dilantin level is low 2D echo showed normal ejection fraction with no evidence of valvular vegetations 2. Seizure disorder on multiple medications Continue Keppra IV No report of seizures prior to arrival, no seizures in house 3. Multiple electrolyte abnormalities Replete as needed Nephrology has been consulted 4. Transaminitis secondary to medication overdose versus shock liver versus choledocholithiasis: LFTs are trending down Hepatitis panel is negative GI consultation appreciated Monitor 5. LEONOR secondary to shock: Creatinine trending up but patient is now oliguric Nephrology consultation Continue gentle IV fluids Continue Bumex as per nephrology 6. 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, patient is not a candidate for MRCP at this time secondary to her condition Follow up GI recommendations Prophylaxis: Heparin Problems: Subjective 24 Hr Interval Summary Free Text/Dictation Patient remains intubated Sedated Off pressors 48 hours NG tube in place Exam/Review of Systems Vital Signs Vitals Vital Signs Date Time Temp Pulse Resp B/P Pulse Ox O2 Delivery O2 Flow Rate FiO2 01/10/17 08:00 110 01/10/17 06:00 26 109/70 98 Mechanical Ventilator 01/10/17 05:28 30 01/10/17 04:00 100.2 Intake and Output 01/09/17 01/09/17 01/10/17 15:00 23:00 07:00 Intake Total 1020 ml 1220 ml 70 ml Output Total 425 ml 355 ml 385 ml Balance 595 ml 865 ml -315 ml Exam General: The patient is sedated, not in acute distress. Generalized edema HEENT: Atraumatic, normocephalic. The pupils are equal and equal. Neck: Supple Chest: Normal Lungs: Clear to auscultation bilaterally Heart: Normal S1-S2, Regular rhythm and rate. Abdomen: Soft , nontender, nondistended , bowel sounds are present. Extremities: Normal to inspection, +1 edema no cyanosis Neurologic: Sedated, responds to pain stimuli Results Result Diagram: 01/10/17 0545 01/10/17 0545 Results 24 hrs Laboratory Tests Test 01/09/17 11:47 01/09/17 13:27 01/09/17 17:13 01/09/17 20:58 Lab Scanned Report REFERENCE LAB Bedside Glucose 112 97 83 Test 01/10/17 01:26 01/10/17 05:03 01/10/17 05:45 01/10/17 05:51 Bedside Glucose 89 83 Lab Scanned Report BLOOD TRANSFUSION White Blood Count 16.6 #H Red Blood Count 3.42 #L Hemoglobin 10.3 #L Hematocrit 29.6 #L Mean Corpuscular Volume 86.5 Mean Corpuscular Hemoglobin 30.1 Mean Corpuscular Hemoglobin Concent 34.8 Red Cell Distribution Width 14.2 Platelet Count 165 # Mean Platelet Volume 10.9 H Neutrophils % 91.2 H Lymphocytes % 3.9 L Monocytes % 3.3 Eosinophils % 0.2 Basophils % 0.4 Nucleated Red Blood Cells % 0.0 Neutrophils # 15.2 H Lymphocytes # 0.7 L Monocytes # 0.6 Eosinophils # 0.0 Basophils # 0.1 Nucleated Red Blood Cells # 0.0 Sodium Level 130 L Potassium Level 3.4 L Chloride Level 99 Carbon Dioxide Level 22 Anion Gap 12 Blood Urea Nitrogen 67 H Creatinine 5.80 H Glucose Level 76 Calcium Level 6.8 L Phosphorus Level 5.6 H Magnesium Level 2.1 Iron Level 14 L Total Iron Binding Capacity 129 L Percent Iron Saturation 11 L Ferritin 466.0 H Total Bilirubin 0.7 Direct Bilirubin 0.50 #H Indirect Bilirubin 0.2 Aspartate Amino Transf (AST/SGOT) 42 Alanine Aminotransferase (ALT/SGPT) 75 H Alkaline Phosphatase 186 H Total Protein 5.0 L Albumin 2.5 L Random Vancomycin Level 17.8 Test 01/10/17 08:38 Bedside Glucose 84 Medications Medications Current Medications Ondansetron HCl (Zofran Inj) 4 mg Q6H PRN IV NAUSEA AND/OR VOMITING; Start 01/04 at 19:30 Acetaminophen/ Hydrocodone Bitart ([place] (5/325)) 1 tab Q6H PRN PO MODERATE PAIN LEVEL 4-6; Start 01/04/17 at 19:30 Morphine Sulfate (morphine) 2 mg Q4H PRN IV SEVERE PAIN LEVEL 7-10 Last administered on 01/08/17 11:21; Admin Dose 2 MG; Start 01/04/17 at 19:30 Docusate Sodium (Colace) 100 mg Q12H PRN PO CONSTIPATION; Start 01/04/17 at 19: 30 Magnesium Hydroxide (Milk Of Mag) 30 ml DAILY PRN PO CONSTIPATION; Start at 19:30 Sodium Biphosphate/ Sodium Phosphate (Fleet Enema) 133 ml DAILY PRN AL CONSTIPATION; Start 01/04/17 at 19:30 Heparin Sodium (Porcine) (Heparin (5000 Units/0.5 ml)) 5,000 unit Q12 SC Last administered on 01/10/17 09:36; Admin Dose 5,000 UNIT; Start 01/04/17 at 21:00 Lorazepam (Ativan) 0.5 mg Q6H PRN IV ANXIETY Last administered on 01/08/17 05: 58; Admin Dose 0.5 MG; Start 01/04/17 at 19:30 Hydralazine HCl (Apresoline) 10 mg Q6H PRN IV ELEVATED BLOOD PRESSURE; Start at 19:30 Nitroglycerin (Nitroglycerin (Sl Tab) 0.4 Mg) 1 tab Q5M PRN SL ANGINA; Start at 19:30 Insulin Aspart (Novolog Insulin Pen) NOVOLOG *MILD* ALGORI... Q4 SC Last administered on 01/06/17 20:40; Admin Dose 1 UNIT; Start 01/04/17 at 21:00 Phenobarbital (Luminal) 64.8 mg BID PO Last administered on 01/04/17 23:45; Admin Dose 64.8 MG; Start 01/04/17 at 21:00; Status Future Hold Topiramate (Topamax) 200 mg BID PO ; Start 01/05/17 at 21:00; Status Future Hold Miscellaneous Information 1 ea NOTE XX ; Start 01/04/17 at 19:30 Glucose (Glutose) 15 gm Q15M PRN PO DECREASED GLUCOSE; Start 01/04/17 at 19:30 Glucose (Glutose) 22.5 gm Q15M PRN PO DECREASED GLUCOSE; Start 01/04/17 at 19:30 Dextrose (D50w Syringe) 25 ml Q15M PRN IV DECREASED GLUCOSE Last administered on 01/08/17 05:36; Admin Dose 25 ML; Start 01/04/17 at 19:30 Dextrose (D50w Syringe) 50 ml Q15M PRN IV DECREASED GLUCOSE; Start 01/04/17 at 19:30 Glucagon (Glucagen) 1 mg Q15M PRN IM DECREASED GLUCOSE; Start 01/04/17 at 19:30 Glucose (Glutose) 15 gm Q15M PRN BUCCAL DECREASED GLUCOSE; Start 01/04/17 at 19: 30 Phenytoin (Dilantin Susp Cup) 100 mg TID PO Last administered on 01/04/17 23:44 ; Admin Dose 100 MG; Start 01/04/17 at 21:50; Status Future Hold Clonazepam 0.5 mg 0.5 mg Q8H PO Last administered on 01/04/17 23:45; Admin Dose 0.5 MG; Start 01/04/17 at 23:00; Status Future Hold Norepinephrine 16 mg/Dextrose 500 ml @ 1.87 mls/hr TITRATE IV Last administered on 01/07/17 00:23; Admin Dose 15 MLS/HR; Start 01/05/17 at 00:30 Fentanyl 100 ml @ 2.5 mls/hr TITRATE IV Last administered on 01/10/17 09:08; Admin Dose 10 MLS/HR; Start 01/05/17 at 08:39 Midazolam HCl 50 ml @ 1 mls/hr TITRATE IV Last administered on 01/10/17 08:10 ; Admin Dose 10 MLS/HR; Start 01/05/17 at 08:41 Levetiracetam 100 ml @ 400 mls/hr Q12 IVPB Last administered on 01/10/17 09: 20; Admin Dose 400 MLS/HR; Start 01/05/17 at 11:30 Vasopressin 60 unit/Dextrose 60 ml @ 1.2 mls/hr Q12H IV Last administered on 22:32; Admin Dose 2.4 MLS/HR; Start 01/05/17 at 17:30 Epinephrine 4 mg/ Sodium Chloride 250 ml @ 0 mls/hr TITRATE IV ; Start 01/05/17 at 18:30 Phenylephrine HCl/ Dextrose (Robert-Syneph/D5W) 500 ml @ 18.75 mls/ hr TITRATE IV Last administered on 01/07/17 23:21; Admin Dose 26.25 MLS/HR; Start 01/05/17 at 20:30 Acetaminophen 650 mg 650 mg Q4H PRN NGT PAIN AND OR ELEVATED TEMP Last administered on 01/06/17 04:29; Admin Dose 650 MG; Start 01/06/17 at 04:30 Piperacillin Sod/ Tazobactam Sod (Zosyn 2.25gm/ 50ml (Pmx)) 50 ml @ 100 mls/hr Q8 IVPB Last administered on 01/10/17 09:34; Admin Dose 100 MLS/HR; Start 01/06 at 14:00 Insulin Glargine (Lantus) 10 unit DAILY SC Last administered on 01/07/17 08:19 ; Admin Dose 10 UNIT; Start 01/06/17 at 14:00; Status Future Hold Epoetin Mina 56878 units 10,000 units MoWeFr@17 SC Last administered on 17:17; Admin Dose 10,000 UNITS; Start 01/09/17 at 17:00 Acetaminophen 100 ml @ 400 mls/hr Q6H PRN IVPB FEVER Last administered on 01/10 09:11; Admin Dose 400 MLS/HR; Start 01/10/17 at 06:30 Potassium Chloride 50 ml @ 25 mls/hr Q2H IVPB Last administered on 01/10/17 08 :00; Admin Dose 25 MLS/HR; Start 01/10/17 at 08:00; Stop 01/10/17 at 13:59 Dextrose/Sodium Chloride 1,000 ml @ 50 mls/hr Q20H IV Last administered on 09:10; Admin Dose 50 MLS/HR; Start 01/10/17 at 08:00 Bumetanide 25 mg/ Dextrose 250 ml @ 10 mls/hr Q24H IV Last administered on t 09:34; Admin Dose 10 MLS/HR; Start 01/10/17 at 09:30 Vancomycin HCl/ Sodium Chloride (Vancocin/NS) 150 ml @ 75 mls/hr Q72H IVPB ; Start 01/10/17 at 18:00 GAYE BARRON MD Jan 10, 2017 10:10
--- NOTE | 2017-01-10 11:37 | CONS ---
Date/Time of Note Date/Time of Note DATE: 01/10/17 TIME: 11:35 Consult Date/Type/Reason Admit Date/Time Jan 04, 2017 at 19:10 Initial Consult Date 01/05/17 Type of Consultation: Pulmonary ICU Ordering Provider: YING CASTAÑEDA Subjective Patient follows simple commands off sedation. Status post PICC line this morning. Objective Vital Signs Date Time Temp Pulse Resp B/P Pulse Ox O2 Delivery O2 Flow Rate FiO2 01/10/17 11:00 100 26 107/68 98 Mechanical Ventilator 01/10/17 08:00 100.2 01/10/17 05:28 30 Intake and Output 01/09/17 01/09/17 01/10/17 14:59 22:59 06:59 Intake Total 850 ml 1270 ml 190 ml Output Total 385 ml 350 ml 440 ml Balance 465 ml 920 ml -250 ml Exam PHYSICAL EXAMINATION GENERAL: Elderly lady intubated in ventilation is comfortable at rest VITAL SIGNS: see below. HEENT: Pupils equal, round, and reactive to light. Tracheostomy site clean and intact. CARDIAC: S1, S2, 1/6 systolic ejection murmur CHEST: Diminished air entry bilaterally. ABDOMEN: Mildly distended. Bowel sounds present no guarding or rebound EXTREMITIES: No cyanosis, clubbing edema +1 NEUROLOGIC: Generalized weakness Results/Medications Result Diagram: 01/10/17 0545 01/10/17 0545 Results 24 hrs Laboratory Tests Test 01/09/17 11:47 01/09/17 13:27 01/09/17 17:13 01/09/17 20:58 Lab Scanned Report REFERENCE LAB Bedside Glucose 112 97 83 Test 01/10/17 01:26 01/10/17 05:03 01/10/17 05:45 01/10/17 05:51 Bedside Glucose 89 83 Lab Scanned Report BLOOD TRANSFUSION White Blood Count 16.6 #H Red Blood Count 3.42 #L Hemoglobin 10.3 #L Hematocrit 29.6 #L Mean Corpuscular Volume 86.5 Mean Corpuscular Hemoglobin 30.1 Mean Corpuscular Hemoglobin Concent 34.8 Red Cell Distribution Width 14.2 Platelet Count 165 # Mean Platelet Volume 10.9 H Neutrophils % 91.2 H Lymphocytes % 3.9 L Monocytes % 3.3 Eosinophils % 0.2 Basophils % 0.4 Nucleated Red Blood Cells % 0.0 Neutrophils # 15.2 H Lymphocytes # 0.7 L Monocytes # 0.6 Eosinophils # 0.0 Basophils # 0.1 Nucleated Red Blood Cells # 0.0 Sodium Level 130 L Potassium Level 3.4 L Chloride Level 99 Carbon Dioxide Level 22 Anion Gap 12 Blood Urea Nitrogen 67 H Creatinine 5.80 H Glucose Level 76 Calcium Level 6.8 L Phosphorus Level 5.6 H Magnesium Level 2.1 Iron Level 14 L Total Iron Binding Capacity 129 L Percent Iron Saturation 11 L Ferritin 466.0 H Total Bilirubin 0.7 Direct Bilirubin 0.50 #H Indirect Bilirubin 0.2 Aspartate Amino Transf (AST/SGOT) 42 Alanine Aminotransferase (ALT/SGPT) 75 H Alkaline Phosphatase 186 H Total Protein 5.0 L Albumin 2.5 L Random Vancomycin Level 17.8 Test 01/10/17 08:38 Bedside Glucose 84 Medications Current Medications Ondansetron HCl (Zofran Inj) 4 mg Q6H PRN IV NAUSEA AND/OR VOMITING; Start 01/04 at 19:30 Acetaminophen/ Hydrocodone Bitart ([place] (5/325)) 1 tab Q6H PRN PO MODERATE PAIN LEVEL 4-6; Start 01/04/17 at 19:30 Morphine Sulfate (morphine) 2 mg Q4H PRN IV SEVERE PAIN LEVEL 7-10 Last administered on 01/08/17 11:21; Admin Dose 2 MG; Start 01/04/17 at 19:30 Docusate Sodium (Colace) 100 mg Q12H PRN PO CONSTIPATION; Start 01/04/17 at 19: 30 Magnesium Hydroxide (Milk Of Mag) 30 ml DAILY PRN PO CONSTIPATION; Start at 19:30 Sodium Biphosphate/ Sodium Phosphate (Fleet Enema) [address] CONSTIPATION; Start 01/04/17 at 19:30 Heparin Sodium (Porcine) (Heparin (5000 Units/0.5 ml)) 5,000 unit Q12 SC Last administered on 01/10/17 09:36; Admin Dose 5,000 UNIT; Start 01/04/17 at 21:00 Lorazepam (Ativan) 0.5 mg Q6H PRN IV ANXIETY Last administered on 01/08/17 05: 58; Admin Dose 0.5 MG; Start 01/04/17 at 19:30 Hydralazine HCl (Apresoline) 10 mg Q6H PRN IV ELEVATED BLOOD PRESSURE; Start at 19:30 Nitroglycerin (Nitroglycerin (Sl Tab) 0.4 Mg) 1 tab Q5M PRN SL ANGINA; Start at 19:30 Insulin Aspart (Novolog Insulin Pen) NOVOLOG *MILD* ALGORI... Q4 SC Last administered on 01/06/17 20:40; Admin Dose 1 UNIT; Start 01/04/17 at 21:00 Phenobarbital (Luminal) 64.8 mg BID PO Last administered on 01/04/17 23:45; Admin Dose 64.8 MG; Start 01/04/17 at 21:00; Status Future Hold Topiramate (Topamax) 200 mg BID PO ; Start 01/05/17 at 21:00; Status Future Hold Miscellaneous Information 1 ea NOTE XX ; Start 01/04/17 at 19:30 Glucose (Glutose) 15 gm Q15M PRN PO DECREASED GLUCOSE; Start 01/04/17 at 19:30 Glucose (Glutose) 22.5 gm Q15M PRN PO DECREASED GLUCOSE; Start 01/04/17 at 19:30 Dextrose (D50w Syringe) 25 ml Q15M PRN IV DECREASED GLUCOSE Last administered on 01/08/17 05:36; Admin Dose 25 ML; Start 01/04/17 at 19:30 Dextrose (D50w Syringe) 50 ml Q15M PRN IV DECREASED GLUCOSE; Start 01/04/17 at 19:30 Glucagon (Glucagen) 1 mg Q15M PRN IM DECREASED GLUCOSE; Start 01/04/17 at 19:30 Glucose (Glutose) 15 gm Q15M PRN BUCCAL DECREASED GLUCOSE; Start 01/04/17 at 19: 30 Phenytoin (Dilantin Susp Cup) 100 mg TID PO Last administered on 01/04/17 23:44 ; Admin Dose 100 MG; Start 01/04/17 at 21:50; Status Future Hold Clonazepam 0.5 mg 0.5 mg Q8H PO Last administered on 01/04/17 23:45; Admin Dose 0.5 MG; Start 01/04/17 at 23:00; Status Future Hold Norepinephrine 16 mg/Dextrose 500 ml @ 1.87 mls/hr TITRATE IV Last administered on 01/07/17 00:23; Admin Dose 15 MLS/HR; Start 01/05/17 at 00:30 Fentanyl 100 ml @ 2.5 mls/hr TITRATE IV Last administered on 01/10/17 09:08; Admin Dose 10 MLS/HR; Start 01/05/17 at 08:39 Midazolam HCl 50 ml @ 1 mls/hr TITRATE IV Last administered on 01/10/17 08:10 ; Admin Dose 10 MLS/HR; Start 01/05/17 at 08:41 Levetiracetam 100 ml @ 400 mls/hr Q12 IVPB Last administered on 01/10/17 09: 20; Admin Dose 400 MLS/HR; Start 01/05/17 at 11:30 Vasopressin 60 unit/Dextrose 60 ml @ 1.2 mls/hr Q12H IV Last administered on 22:32; Admin Dose 2.4 MLS/HR; Start 01/05/17 at 17:30 Epinephrine 4 mg/ Sodium Chloride 250 ml @ 0 mls/hr TITRATE IV ; Start 01/05/17 at 18:30 Phenylephrine HCl/ Dextrose (Robert-Syneph/D5W) 500 ml @ 18.75 mls/ hr TITRATE IV Last administered on 01/07/17 23:21; Admin Dose 26.25 MLS/HR; Start 01/05/17 at 20:30 Acetaminophen 650 mg 650 mg Q4H PRN NGT PAIN AND OR ELEVATED TEMP Last administered on 01/06/17 04:29; Admin Dose 650 MG; Start 01/06/17 at 04:30 Piperacillin Sod/ Tazobactam Sod (Zosyn 2.25gm/ 50ml (Pmx)) 50 ml @ 100 mls/hr Q8 IVPB Last administered on 01/10/17 09:34; Admin Dose 100 MLS/HR; Start 01/06 at 14:00 Insulin Glargine (Lantus) 10 unit DAILY SC Last administered on 01/07/17 08:19 ; Admin Dose 10 UNIT; Start 01/06/17 at 14:00; Status Future Hold Epoetin Mina 36244 units 10,000 units MoWeFr@17 SC Last administered on 17:17; Admin Dose 10,000 UNITS; Start 01/09/17 at 17:00 Acetaminophen 100 ml @ 400 mls/hr Q6H PRN IVPB FEVER Last administered on 01/10 09:11; Admin Dose 400 MLS/HR; Start 01/10/17 at 06:30 Potassium Chloride 50 ml @ 25 mls/hr Q2H IVPB Last administered on 01/10/17 11 :32; Admin Dose 25 MLS/HR; Start 01/10/17 at 08:00; Stop 01/10/17 at 13:59 Dextrose/Sodium Chloride 1,000 ml @ 50 mls/hr Q20H IV Last administered on 09:10; Admin Dose 50 MLS/HR; Start 01/10/17 at 08:00 Bumetanide 25 mg/ Dextrose 250 ml @ 10 mls/hr Q24H IV Last administered on 09:34; Admin Dose 10 MLS/HR; Start 01/10/17 at 09:30 Vancomycin HCl/ Sodium Chloride (Vancocin/NS) 150 ml @ 75 mls/hr Q72H IVPB ; Start 01/10/17 at 18:00 IV Flush (NS 10 ml) 10 ml PRN PRN IV IV PROTOCOL; Start 01/10/17 at 11:30 Assessment/Plan Chief Complaint/Hosp Course IMP: 1. Severe pancreatitis with septic shock 2. Metabolic acidosis secondary to above and ARF 3. Renal failure likely ATN 4. Hypoxemic respiratory failure secondary to above 5. History of seizure disorder RECS: 1. Continue albumin/lasix 2. Continue mechanical ventilation, weaning trial once ERCP has been performed. 3. Broad-spectrum antibiotic coverage 4. Nasogastric tube to suction 5. May require HD if not responsive to albumin and lasix, discussed with nephrology 7. Reduce versed gtt; daily sedation vacation 8. Possible ERCP. 35 min cc time Problems: AMPARO VALERIO MD, [facility] Jan 10, 2017 11:36
[2017-01-10] MEDS ORDERED: SOD CHLORIDE 0.9% 100 ML ONE (12:39)
[2017-01-10] MEDS: DEXTROSE 10% 1,000 ML IV SCH (13:51)
--- NOTE | 2017-01-10 14:04 | RADRPT ---
PROCEDURE: XR Chest. CLINICAL INDICATION: Check PICC line position. TECHNIQUE: Single frontal view. COMPARISON: 01/09/2017. FINDINGS: There is a right arm PICC line with the tip in the upper superior vena cava. The endotracheal tube, nasogastric tube, and left-sided stimulator device remain in position. Bilateral air space and int erstitial disease consistent with pulmonary edema is unchanged. The heart size is normal. There are moderate bilateral pleural effusions, unchanged. There is no pneumothorax. IMPRESSION: 1. Right arm PICC line tip in upper superior vena cava. 2. No other change from 01/09/2017. RPTAT: QQ .Larry Box MD, MD Date Time Electronically viewed and signed by .Larry Box MD, MD on 01/10/2017 14:04 .R/
--- NOTE | 2017-01-10 14:05 | RADRPT ---
PROCEDURE: XR Chest. CLINICAL INDICATION: Check PICC line position. TECHNIQUE: Single frontal view. COMPARISON: Prior study done earlier the same day. FINDINGS: There is a right arm PICC line with the tip in the mid superior vena cava. The endotracheal tube, n asogastric tube, and left-sided stimulator device remain in position. Bilateral air space and inter stitial disease consistent with pulmonary edema is unchanged. The heart size is normal. There are moderate bilateral pleural effusions, unchanged. There is no pneumothorax. IMPRESSION: 1. Right arm PICC line tip in mid superior vena cava. 2. No other change from the prior study done earlier the same day.. RPTAT: QQ .Larry Box MD, MD Date Time Electronically viewed and signed by .Larry Box MD, on 01/10/2017 14:04 .R/
--- NOTE | 2017-01-10 15:19 | RADRPT ---
PROCEDURE: Ultrasound guidance for placement of needle in left upper extremity vein. CLINICAL INDICATION: Venous access. TECHNIQUE: Limited sonography of the left upper extremity was performed. Ultrasound images were recorded and s tored in the patient's medical record. COMPARISON: None. FINDINGS: The ultrasound images demonstrate a patent left upper extremity vein. The PICC line was inserted by the PICC line nurse. IMPRESSION: 1. Ultrasound guidance for a needle placement in a left upper extremity vein. 2. The left upper extremity vein is patent. RPTAT: QQ .Larry Box MD, MD Date Time Electronically viewed and signed by .Larry Box MD, MD on 01/10/2017 15:18 .R/
--- NOTE | 2017-01-10 16:26 | CONS ---
Date/Time of Note Date/Time of Note DATE: 01/10/17 TIME: 16:22 Assessment/Plan Assessment/Plan Additional Assessment/Plan Paroxysmal atrial fibrillation Severe sepsis Acute pancreatitis Preserved ejection fraction Respiratory failure, vent dependent Acute kidney injury Seizure disorder Psychiatric disorder Acute blood loss anemia -Discussion with nursing staff, patient was having frequent episodes of paroxysmal atrial fibrillation when sedation was decreased. Currently remains in sinus rhythm. Fluid management and diuretics as per our nephrology colleagues. Patient for possible ERCP given presumed gallstone pancreatitis. Given the etiology of patient's sepsis likely secondary to pancreatitis and possibility of curative treatment with ERCP, the benefits likely outweigh the risks. Consultation Date/Type/Reason Admit Date/Time Jan 04, 2017 at 19:10 Initial Consult Date 01/05/17 Type of Consultation: cv Referring Provider: YING CASTAÑEDA 24 HR Interval Summary Free Text/Dictation Patient seen and examined, and discussion with nursing staff, when sedation decreased, more frequent episodes of atrial fibrillation Exam/Review of Systems Vital Signs Vitals Vital Signs Date Time Temp Pulse Resp B/P Pulse Ox O2 Delivery O2 Flow Rate FiO2 01/10/17 14:00 87 17 104/60 99 Mechanical Ventilator 01/10/17 12:00 98.5 01/10/17 12:00 35 Intake and Output 01/09/17 01/09/17 01/10/17 15:00 23:00 07:00 Intake Total 1020 ml 1220 ml 420 ml Output Total 425 ml 355 ml 385 ml Balance 595 ml 865 ml 35 ml Exam Sedated and intubated, no apparent distress Head: normocephalic ENMT: intubated Respiratory: other (Coarse breath sounds bilaterally, no wheezing) Cardiovascular: other (S1-S2 heard), regular rate and rhythm Gastrointestinal: bowel sounds, non-tender, soft Extremities: edema Results Result Diagram: 01/10/17 0545 01/10/17 0545 Results 24 hrs Laboratory Tests Test 01/09/17 17:13 01/09/17 20:58 01/10/17 01:26 01/10/17 05:03 Bedside Glucose 97 83 89 Lab Scanned Report BLOOD TRANSFUSION Test 01/10/17 05:45 01/10/17 05:51 01/10/17 08:38 01/10/17 12:30 White Blood Count 16.6 #H Red Blood Count 3.42 #L Hemoglobin 10.3 #L Hematocrit 29.6 #L Mean Corpuscular Volume 86.5 Mean Corpuscular Hemoglobin 30.1 Mean Corpuscular Hemoglobin Concent 34.8 Red Cell Distribution Width 14.2 Platelet Count 165 # Mean Platelet Volume 10.9 H Neutrophils % 91.2 H Lymphocytes % 3.9 L Monocytes % 3.3 Eosinophils % 0.2 Basophils % 0.4 Nucleated Red Blood Cells % 0.0 Neutrophils # 15.2 H Lymphocytes # 0.7 L Monocytes # 0.6 Eosinophils # 0.0 Basophils # 0.1 Nucleated Red Blood Cells # 0.0 Sodium Level 130 L Potassium Level 3.4 L Chloride Level 99 Carbon Dioxide Level 22 Anion Gap 12 Blood Urea Nitrogen 67 H Creatinine 5.80 H Glucose Level 76 Calcium Level 6.8 L Phosphorus Level 5.6 H Magnesium Level 2.1 Iron Level 14 L Total Iron Binding Capacity 129 L Percent Iron Saturation 11 L Ferritin 466.0 H Total Bilirubin 0.7 Direct Bilirubin 0.50 #H Indirect Bilirubin 0.2 Aspartate Amino Transf (AST/SGOT) 42 Alanine Aminotransferase (ALT/SGPT) 75 H Alkaline Phosphatase 186 H Total Protein 5.0 L Albumin 2.5 L Random Vancomycin Level 17.8 Bedside Glucose 83 84 72 Medications Medications Current Medications Ondansetron HCl (Zofran Inj) 4 mg Q6H PRN IV NAUSEA AND/OR VOMITING; Start 01/04 at 19:30 Acetaminophen/ Hydrocodone Bitart ([place] (5/325)) 1 tab Q6H PRN PO MODERATE PAIN LEVEL 4-6; Start 01/04/17 at 19:30 Morphine Sulfate (morphine) 2 mg Q4H PRN IV SEVERE PAIN LEVEL 7-10 Last administered on 01/08/17 11:21; Admin Dose 2 MG; Start 01/04/17 at 19:30 Docusate Sodium (Colace) 100 mg Q12H PRN PO CONSTIPATION; Start 01/04/17 at 19: 30 Magnesium Hydroxide (Milk Of Mag) 30 ml DAILY PRN PO CONSTIPATION; Start at 19:30 Sodium Biphosphate/ Sodium Phosphate (Fleet Enema) 133 ml DAILY PRN IN CONSTIPATION; Start 01/04/17 at 19:30 Heparin Sodium (Porcine) (Heparin (5000 Units/0.5 ml)) 5,000 unit Q12 SC Last administered on 01/10/17 09:36; Admin Dose 5,000 UNIT; Start 01/04/17 at 21:00 Lorazepam (Ativan) 0.5 mg Q6H PRN IV ANXIETY Last administered on 01/08/17 05: 58; Admin Dose 0.5 MG; Start 01/04/17 at 19:30 Hydralazine HCl (Apresoline) 10 mg Q6H PRN IV ELEVATED BLOOD PRESSURE; Start at 19:30 Nitroglycerin (Nitroglycerin (Sl Tab) 0.4 Mg) 1 tab Q5M PRN SL ANGINA; Start at 19:30 Insulin Aspart (Novolog Insulin Pen) NOVOLOG *MILD* ALGORI... Q4 SC Last administered on 01/06/17 20:40; Admin Dose 1 UNIT; Start 01/04/17 at 21:00 Phenobarbital (Luminal) 64.8 mg BID PO Last administered on 01/04/17 23:45; Admin Dose 64.8 MG; Start 01/04/17 at 21:00; Status Future Hold Topiramate (Topamax) 200 mg BID PO ; Start 01/05/17 at 21:00; Status Future Hold Miscellaneous Information 1 ea NOTE XX ; Start 01/04/17 at 19:30 Glucose (Glutose) 15 gm Q15M PRN PO DECREASED GLUCOSE; Start 01/04/17 at 19:30 Glucose (Glutose) 22.5 gm Q15M PRN PO DECREASED GLUCOSE; Start 01/04/17 at 19:30 Dextrose (D50w Syringe) 25 ml Q15M PRN IV DECREASED GLUCOSE Last administered on 01/08/17 05:36; Admin Dose 25 ML; Start 01/04/17 at 19:30 Dextrose (D50w Syringe) 50 ml Q15M PRN IV DECREASED GLUCOSE; Start 01/04/17 at 19:30 Glucagon (Glucagen) 1 mg Q15M PRN IM DECREASED GLUCOSE; Start 01/04/17 at 19:30 Glucose (Glutose) 15 gm Q15M PRN BUCCAL DECREASED GLUCOSE; Start 01/04/17 at 19: 30 Phenytoin (Dilantin Susp Cup) 100 mg TID PO Last administered on 01/04/17 23:44 ; Admin Dose 100 MG; Start 01/04/17 at 21:50; Status Future Hold Clonazepam 0.5 mg 0.5 mg Q8H PO Last administered on 01/04/17 23:45; Admin Dose 0.5 MG; Start 01/04/17 at 23:00; Status Future Hold Norepinephrine 16 mg/Dextrose 500 ml @ 1.87 mls/hr TITRATE IV Last administered on 01/07/17 00:23; Admin Dose 15 MLS/HR; Start 01/05/17 at 00:30 Fentanyl 100 ml @ 2.5 mls/hr TITRATE IV Last administered on 01/10/17 09:08; Admin Dose 10 MLS/HR; Start 01/05/17 at 08:39 Midazolam HCl 50 ml @ 1 mls/hr TITRATE IV Last administered on 01/10/17 13:51 ; Admin Dose 10 MLS/HR; Start 01/05/17 at 08:41 Levetiracetam 100 ml @ 400 mls/hr Q12 IVPB Last administered on 01/10/17 09: 20; Admin Dose 400 MLS/HR; Start 01/05/17 at 11:30 Vasopressin 60 unit/Dextrose 60 ml @ 1.2 mls/hr Q12H IV Last administered on 22:32; Admin Dose 2.4 MLS/HR; Start 01/05/17 at 17:30 Epinephrine 4 mg/ Sodium Chloride 250 ml @ 0 mls/hr TITRATE IV ; Start 01/05/17 at 18:30 Phenylephrine HCl/ Dextrose (Robert-Syneph/D5W) 500 ml @ 18.75 mls/ hr TITRATE IV Last administered on 01/07/17 23:21; Admin Dose 26.25 MLS/HR; Start 01/05/17 at 20:30 Acetaminophen 650 mg 650 mg Q4H PRN NGT PAIN AND OR ELEVATED TEMP Last administered on 01/06/17 04:29; Admin Dose 650 MG; Start 01/06/17 at 04:30 Piperacillin Sod/ Tazobactam Sod (Zosyn 2.25gm/ 50ml (Pmx)) 50 ml @ 100 mls/hr Q8 IVPB Last administered on 01/10/17 13:52; Admin Dose 100 MLS/HR; Start 01/06 at 14:00 Insulin Glargine (Lantus) 10 unit DAILY SC Last administered on 01/07/17 08:19 ; Admin Dose 10 UNIT; Start 01/06/17 at 14:00; Status Future Hold Epoetin Mina 43090 units 10,000 units MoWeFr@17 SC Last administered on 17:17; Admin Dose 10,000 UNITS; Start 01/09/17 at 17:00 Acetaminophen 100 ml @ 400 mls/hr Q6H PRN IVPB FEVER Last administered on 01/10 09:11; Admin Dose 400 MLS/HR; Start 01/10/17 at 06:30 Bumetanide 25 mg/ Dextrose 250 ml @ 10 mls/hr Q24H IV Last administered on 09:34; Admin Dose 10 MLS/HR; Start 01/10/17 at 09:30 Vancomycin HCl/ Sodium Chloride (Vancocin/NS) 150 ml @ 75 mls/hr Q72H IVPB ; Start 01/10/17 at 18:00 IV Flush 10 ml 10 ml PRN PRN IV IV PROTOCOL; Start 01/10/17 at 11:30 Dextrose (D10w) 1,000 ml @ 50 mls/hr Q20H IV Last administered on 01/10/17 13 :51; Admin Dose 50 MLS/HR; Start 01/10/17 at 14:00 Vlad Leyva DO Jan 10, 2017 16:25
[2017-01-10] MEDS: VANCOMYCIN 750 MG in SOD CHLORIDE 0.9% 150 ML IVPB SCH (17:57)
[2017-01-11] VITALS (43 sets, daily range): BP systolic 103–156; BP diastolic 53–102; PULSE 72–130; RESP 26–31
[2017-01-11] MEDS: MIDAZOLAM (DRIP) 50 mg/50 mL 50 ML IV SCH ×4 (00:12→20:01)
[2017-01-11] MEDS: INSULIN ASPART [NOVOLOG] 3 ML PEN SC SCH ×6 (01:00→21:00)
[2017-01-11] MEDS: FENTAnyl (DRIP) 1000 mcg/100mL 100 ML IV SCH ×2 (05:13→19:27)
[2017-01-11] MEDS: PIPER-TAZO 2.25 GM (PMX) 50 ML IVPB SCH ×3 (05:14→20:35)
[2017-01-11] MEDS: VASOPRESSIN 60 UNIT in DEXTROSE 5% 57 ML IV SCH ×2 (05:14→17:30)
[2017-01-11 05:25] LABS: ADD SCAN DIFF NO
[2017-01-11 05:34] LABS: BASOPHIL # 0.1 10^3/ul (0.0-0.1); BASOPHILS % 0.5 % (0.0-2.0); EOSINOPHILS % 0.1 % (0.0-7.0); HEMATOCRIT 30.7 % (37.0-47.0); HEMOGLOBIN 10.7 g/dl (12.0-16.0); LYMPHOCYTES # 0.9 10^3/ul (0.8-2.9); LYMPHOCYTES % 4.2 % (15.0-51.0); MEAN CORPUSCULAR HEMOGLOBIN 30.6 pg (29.0-33.0); MEAN CORPUSCULAR HGB CONC 34.9 g/dl (32.0-37.0); MEAN CORPUSCULAR VOLUME 87.7 fl (82.0-101.0); MEAN PLATELET VOLUME 10.9 fl (7.4-10.4); MONOCYTE # 0.8 10^3/ul (0.3-0.9); MONOCYTES % 3.7 % (0.0-11.0); NEUTROPHIL # 18.2 10^3/ul (1.6-7.5); NEUTROPHILS % 89.2 % (39.0-77.0); PLATELET COUNT 220 10^3/UL (140-415); RED CELL DISTRIBUTION WIDTH 14.5 % (11.5-14.5); WHITE BLOOD COUNT 20.5 10^3/ul (4.8-10.8)
[2017-01-11 05:52] LABS: ALBUMIN 2.7 g/dl (3.3-4.9); BILIRUBIN,DIRECT 0.4 mg/dl (0.00-0.20); BILIRUBIN,INDIRECT 0.1 mg/dl (0-1.1); BILIRUBIN,TOTAL 0.5 mg/dl (0.2-1.3); TOTAL PROTEIN 4.8 g/dl (6.1-8.1)
[2017-01-11 06:23] LABS: CALCIUM 7.1 mg/dl (8.4-10.2); PHOSPHORUS 5.9 mg/dl (2.5-4.9); POTASSIUM 4.2 mmol/L (3.5-5.1)
[2017-01-11 06:54] LABS: CREATININE 5.71 mg/dl (0.44-1.00)
[2017-01-11] MEDS ORDERED: CEFAZOLIN 1 GM INJ ONE (07:00)
--- NOTE | 2017-01-11 07:41 | CONS ---
Date/Time of Note Date/Time of Note DATE: 01/11/17 TIME: 07:38 Assessment/Plan Assessment/Plan Chief Complaint/Hosp Course Admitted with abdominal pain and evidence of severe pancreatitis in otherwise good health. Problems: Additional Assessment/Plan 1. ATN with contd positive fluid balance despite Bumex drip and no evidence of recovery. Favor Dialysis for fluid removal if this will facilitate weaning. Will rev with pulmonary. 2. Pancreatitis, severe, ERCP being contemplated. 3. Nutrition will need to be addressed with tube feed or TPN. Consultation Date/Type/Reason Admit Date/Time Jan 04, 2017 at 19:10 Initial Consult Date 01/05/17 Type of Consultation: cv Referring Provider: YING CASTAÑEDA 24 HR Interval Summary Subjective hx not possible: other (intubated and sedated) Constitutional: other Exam/Review of Systems Vital Signs Vitals Vital Signs Date Time Temp Pulse Resp B/P Pulse Ox O2 Delivery O2 Flow Rate FiO2 01/11/17 06:00 120 26 134/76 98 Mechanical Ventilator 01/11/17 05:36 30 01/11/17 05:00 98.8 Intake and Output 01/10/17 01/10/17 01/11/17 15:00 23:00 07:00 Intake Total 1160.6 ml 940 ml 610 ml Output Total 390 ml 785 ml 574 ml Balance 770.6 ml 155 ml 36 ml Exam Neck: No jvd Respiratory: clear to auscultation, No diminished breath sounds Cardiovascular: regular rate and rhythm Gastrointestinal: tender (grimaces with gentle palpation) Extremities: No edema (inc edema) Results Result Diagram: 01/11/17 0410 01/11/17 0410 Results 24 hrs Laboratory Tests Test 01/10/17 08:38 01/10/17 12:30 01/10/17 17:31 01/10/17 17:50 Bedside Glucose 84 72 82 Potassium Level 4.0 Test 01/10/17 20:53 01/11/17 00:13 01/11/17 04:10 01/11/17 05:19 Bedside Glucose 85 80 85 White Blood Count 20.5 #H Red Blood Count 3.50 L Hemoglobin 10.7 L Hematocrit 30.7 L Mean Corpuscular Volume 87.7 Mean Corpuscular Hemoglobin 30.6 Mean Corpuscular Hemoglobin Concent 34.9 Red Cell Distribution Width 14.5 Platelet Count 220 # Mean Platelet Volume 10.9 H Neutrophils % 89.2 H Lymphocytes % 4.2 L Monocytes % 3.7 Eosinophils % 0.1 Basophils % 0.5 Nucleated Red Blood Cells % 0.0 Neutrophils # 18.2 H Lymphocytes # 0.9 Monocytes # 0.8 Eosinophils # 0.0 Basophils # 0.1 Nucleated Red Blood Cells # 0.0 Sodium Level 130 L Potassium Level 4.2 Chloride Level 99 Carbon Dioxide Level 20 L Anion Gap 15 Blood Urea Nitrogen 73 H Creatinine 5.71 H Glucose Level 80 Calcium Level 7.1 L Phosphorus Level 5.9 H Magnesium Level 2.0 Total Bilirubin 0.5 Direct Bilirubin 0.40 H Indirect Bilirubin 0.1 Aspartate Amino Transf (AST/SGOT) 30 Alanine Aminotransferase (ALT/SGPT) 56 Alkaline Phosphatase 211 H Total Protein 4.8 L Albumin 2.7 L Lipase 759 H Medications Medications Current Medications Ondansetron HCl (Zofran Inj) 4 mg Q6H PRN IV NAUSEA AND/OR VOMITING; Start 01/04 at 19:30 Acetaminophen/ Hydrocodone Bitart ([place] (5/325)) 1 tab Q6H PRN PO MODERATE PAIN LEVEL 4-6; Start 01/04/17 at 19:30 Morphine Sulfate (morphine) 2 mg Q4H PRN IV SEVERE PAIN LEVEL 7-10 Last administered on 01/08/17 11:21; Admin Dose 2 MG; Start 01/04/17 at 19:30 Docusate Sodium (Colace) 100 mg Q12H PRN PO CONSTIPATION; Start 01/04/17 at 19: 30 Magnesium Hydroxide (Milk Of Mag) 30 ml DAILY PRN PO CONSTIPATION; Start at 19:30 Sodium Biphosphate/ Sodium Phosphate (Fleet Enema) 133 ml DAILY PRN [place] CONSTIPATION; Start 01/04/17 at 19:30 Heparin Sodium (Porcine) (Heparin (5000 Units/0.5 ml)) 5,000 unit Q12 SC Last administered on 01/10/17 20:55; Admin Dose 5,000 UNIT; Start 01/04/17 at 21:00 Lorazepam (Ativan) 0.5 mg Q6H PRN IV ANXIETY Last administered on 01/08/17 05: 58; Admin Dose 0.5 MG; Start 01/04/17 at 19:30 Hydralazine HCl (Apresoline) 10 mg Q6H PRN IV ELEVATED BLOOD PRESSURE; Start at 19:30 Nitroglycerin (Nitroglycerin (Sl Tab) 0.4 Mg) 1 tab Q5M PRN SL ANGINA; Start at 19:30 Insulin Aspart (Novolog Insulin Pen) NOVOLOG *MILD* ALGORI... Q4 SC Last administered on 01/06/17 20:40; Admin Dose 1 UNIT; Start 01/04/17 at 21:00 Phenobarbital (Luminal) 64.8 mg BID PO Last administered on 01/04/17 23:45; Admin Dose 64.8 MG; Start 01/04/17 at 21:00; Status Future Hold Topiramate (Topamax) 200 mg BID PO ; Start 01/05/17 at 21:00; Status Future Hold Miscellaneous Information 1 ea NOTE XX ; Start 01/04/17 at 19:30 Glucose (Glutose) 15 gm Q15M PRN PO DECREASED GLUCOSE; Start 01/04/17 at 19:30 Glucose (Glutose) 22.5 gm Q15M PRN PO DECREASED GLUCOSE; Start 01/04/17 at 19:30 Dextrose (D50w Syringe) 25 ml Q15M PRN IV DECREASED GLUCOSE Last administered on 01/08/17 05:36; Admin Dose 25 ML; Start 01/04/17 at 19:30 Dextrose (D50w Syringe) 50 ml Q15M PRN IV DECREASED GLUCOSE; Start 01/04/17 at 19:30 Glucagon (Glucagen) 1 mg Q15M PRN IM DECREASED GLUCOSE; Start 01/04/17 at 19:30 Glucose (Glutose) 15 gm Q15M PRN BUCCAL DECREASED GLUCOSE; Start 01/04/17 at 19: 30 Phenytoin (Dilantin Susp Cup) 100 mg TID PO Last administered on 01/04/17 23:44 ; Admin Dose 100 MG; Start 01/04/17 at 21:50; Status Future Hold Clonazepam 0.5 mg 0.5 mg Q8H PO Last administered on 01/04/17 23:45; Admin Dose 0.5 MG; Start 01/04/17 at 23:00; Status Future Hold Norepinephrine 16 mg/Dextrose 500 ml @ 1.87 mls/hr TITRATE IV Last administered on 01/07/17 00:23; Admin Dose 15 MLS/HR; Start 01/05/17 at 00:30 Fentanyl 100 ml @ 2.5 mls/hr TITRATE IV Last administered on 01/11/17 05:13; Admin Dose 10 MLS/HR; Start 01/05/17 at 08:39 Midazolam HCl 50 ml @ 1 mls/hr TITRATE IV Last administered on 01/11/17 05:13 ; Admin Dose 10 MLS/HR; Start 01/05/17 at 08:41 Levetiracetam 100 ml @ 400 mls/hr Q12 IVPB Last administered on 01/10/17 20: 53; Admin Dose 400 MLS/HR; Start 01/05/17 at 11:30 Vasopressin 60 unit/Dextrose 60 ml @ 1.2 mls/hr Q12H IV Last administered on 22:32; Admin Dose 2.4 MLS/HR; Start 01/05/17 at 17:30 Epinephrine 4 mg/ Sodium Chloride 250 ml @ 0 mls/hr TITRATE IV ; Start 01/05/17 at 18:30 Phenylephrine HCl/ Dextrose (Robert-Syneph/D5W) 500 ml @ 18.75 mls/ hr TITRATE IV Last administered on 01/07/17 23:21; Admin Dose 26.25 MLS/HR; Start 01/05/17 at 20:30 Acetaminophen 650 mg 650 mg Q4H PRN NGT PAIN AND OR ELEVATED TEMP Last administered on 01/06/17 04:29; Admin Dose 650 MG; Start 01/06/17 at 04:30 Piperacillin Sod/ Tazobactam Sod (Zosyn 2.25gm/ 50ml (Pmx)) 50 ml @ 100 mls/hr Q8 IVPB Last administered on 01/11/17 05:14; Admin Dose 100 MLS/HR; Start 01/06 at 14:00 Insulin Glargine (Lantus) 10 unit DAILY SC Last administered on 01/07/17 08:19 ; Admin Dose 10 UNIT; Start 01/06/17 at 14:00; Status Future Hold Epoetin M[place] 30542 units 10,000 units MoWeFr@17 SC Last administered on 17:17; Admin Dose 10,000 UNITS; Start 01/09/17 at 17:00 Acetaminophen 100 ml @ 400 mls/hr Q6H PRN IVPB FEVER Last administered on 01/10 09:11; Admin Dose 400 MLS/HR; Start 01/10/17 at 06:30 Bumetanide 25 mg/ Dextrose 250 ml @ 10 mls/hr Q24H IV Last administered on 09:34; Admin Dose 10 MLS/HR; Start 01/10/17 at 09:30 Vancomycin HCl/ Sodium Chloride (Vancocin/NS) 150 ml @ 75 mls/hr Q72H IVPB Last administered on 01/10/17 17:57; Admin Dose 75 MLS/HR; Start 01/10/17 at 18 :00 IV Flush 10 ml 10 ml PRN PRN IV IV PROTOCOL; Start 01/10/17 at 11:30 Dextrose (D10w) 1,000 ml @ 50 mls/hr Q20H IV Last administered on 01/10/17 13 :51; Admin Dose 50 MLS/HR; Start 01/10/17 at 14:00 FRANCIS JULES MD Jan 11, 2017 07:41
[2017-01-11] MEDS: LEVETIRACETAM 1000 MG (PMX) 100 ML IVPB SCH ×2 (08:31→20:01)
[2017-01-11] MEDS: HEPARIN 5,000 UNIT/0.5 ML VIAL SC SCH ×2 (08:33→21:00)
--- NOTE | 2017-01-11 08:35 | RADRPT ---
PROCEDURE: XR Chest 1 View. CLINICAL INDICATION: Shortness of breath. TECHNIQUE: AP view of the chest was obtained. COMPARISON: January 10, 2017 FINDINGS: The cardiomediastinal silhouette is within normal limits. Endotracheal and nasogastric tubes are sta ble and appear in grossly appropriate location. Right-sided PICC line is unchanged. Stimulator dev ice continues to be seen over the left chest. Patchy infiltrates throughout both lungs, combined wi th small to moderate bilateral pleural effusions are unchanged. The osseous structures are stable. IMPRESSION: Stable patchy infiltrates throughout both lungs, combined with small to moderate pleural effusions. RPTAT: AA .Stephane Navas MD, MD Date Time Electronically viewed and signed by .Stephane Navas MD, on 01/11/2017 08:35 .P/
[2017-01-11] MEDS: DEXTROSE 10% 1,000 ML IV SCH (10:14)
--- NOTE | 2017-01-11 11:15 | PN ---
Date/Time of Note Date/Time of Note DATE: 01/11/17 TIME: 11:12 Assessment/Plan VTE Prophylaxis VTE Prophylaxis Intervention: SCD's Lines/Catheters IV Catheter Type (from [facility]): PICC Line Central line still needed: Yes Urinary Cath still in place: Yes Reason Cath still needed: other (indicate) Assessment/Plan Chief Complaint/Hosp Course Chief Complaint/Hosp Course 1. Severe shock secondary to severe Pancreatitis and/or sepsis from staph bacteremia: Continue broad-spectrum IV antibiotics Ultrasound shows no gallstones but CT abdomen shows biliary ductal dilation without gallstones LFTs are elevated as is lipase, trending down GI consultation appreciated, patient is unstable for MRCP at this time secondary to agitation , recommend to proceed with ERCP as per tank car inspector. Patient is at moderate to risk for ERCP Patient has been weaned off pressors Continue broad-spectrum antibiotics with vancomycin and Zosyn Infectious disease doctor has been consulted Urine culture is positive for E. coli but UA does not show significant pyuria, one blood culture is positive for staph, continue broad-spectrum antibiotics Dilantin level is low 2D echo showed normal ejection fraction with no evidence of valvular vegetations 2. Seizure disorder on multiple medications Continue Keppra IV No report of seizures prior to arrival, no seizures in house 3. Multiple electrolyte abnormalities Replete as needed Nephrology has been consulted 4. Transaminitis secondary to medication overdose versus shock liver versus choledocholithiasis: LFTs are trending down Hepatitis panel is negative GI consultation appreciated Monitor 5. LEONOR secondary to shock: Creatinine trending up but patient is now oliguric Nephrology consultation Continue gentle IV fluids Continue Bumex as per nephrology 6. Severe pancreatitis: Likely secondary to gallstone pancreatitis versus meds , psych meds Air Conditioning Supervisor has been consulted, patient is not a candidate for MRCP at this time secondary to her condition Follow up GI recommendations, plan for ERCP as per tank car inspector recommendations Prophylaxis: Heparin Problems: Subjective 24 Hr Interval Summary Free Text/Dictation Remains intubated Off pressors Vent setting 450 with FiO2 30% with PEEP of 5 Sedated Via Versed and fentanyl On Bumex drip Waiting for family to sign a consent for ERCP Exam/Review of Systems Vital Signs Vitals Vital Signs Date Time Temp Pulse Resp B/P Pulse Ox O2 Delivery O2 Flow Rate FiO2 01/11/17 10:00 122 26 135/83 97 Mechanical Ventilator 01/11/17 07:56 99.9 7/12/17 05:36 30 Intake and Output 01/10/17 01/10/17 01/11/17 15:00 23:00 07:00 Intake Total 1160.6 ml 940 ml 610 ml Output Total 390 ml 785 ml 574 ml Balance 770.6 ml 155 ml 36 ml Exam General: The patient is intubated and sedated HEENT: Atraumatic, normocephalic. The pupils are equal Neck: Supple Chest: Normal Lungs: Decreased breath sounds bilateral lower lung field Heart: Normal S1-S2, tachycardic Abdomen: Soft , nontender, nondistended , bowel sounds are present. Extremities: Normal to inspection, +1 edema no cyanosis Neurologic: Sedated Results Result Diagram: 01/11/170 01/11/170 Results 24 hrs Laboratory Tests Test 01/10/17 12:30 01/10/17 17:31 01/10/17 17:50 01/10/17 20:53 Bedside Glucose 72 82 85 Potassium Level 4.0 Test 01/11/17 00:13 01/11/17 04:10 01/11/17 05:19 01/11/17 08:39 Bedside Glucose 80 85 88 White Blood Count 20.5 #H Red Blood Count 3.50 L Hemoglobin 10.7 L Hematocrit 30.7 L Mean Corpuscular Volume 87.7 Mean Corpuscular Hemoglobin 30.6 Mean Corpuscular Hemoglobin Concent 34.9 Red Cell Distribution Width 14.5 Platelet Count 220 # Mean Platelet Volume 10.9 H Neutrophils % 89.2 H Lymphocytes % 4.2 L Monocytes % 3.7 Eosinophils % 0.1 Basophils % 0.5 Nucleated Red Blood Cells % 0.0 Neutrophils # 18.2 H Lymphocytes # 0.9 Monocytes # 0.8 Eosinophils # 0.0 Basophils # 0.1 Nucleated Red Blood Cells # 0.0 Sodium Level 130 L Potassium Level 4.2 Chloride Level 99 Carbon Dioxide Level 20 L Anion Gap 15 Blood Urea Nitrogen 73 H Creatinine 5.71 H Glucose Level 80 Calcium Level 7.1 L Phosphorus Level 5.9 H Magnesium Level 2.0 Total Bilirubin 0.5 Direct Bilirubin 0.40 H Indirect Bilirubin 0.1 Aspartate Amino Transf (AST/SGOT) 30 Alanine Aminotransferase (ALT/SGPT) 56 Alkaline Phosphatase 211 H Total Protein 4.8 L Albumin 2.7 L Lipase 759 H Medications Medications Current Medications Ondansetron HCl (Zofran Inj) 4 mg Q6H PRN IV NAUSEA AND/OR VOMITING; Start 01/04 at 19:30 Acetaminophen/ Hydrocodone Bitart ([place] (5/325)) 1 tab Q6H PRN PO MODERATE PAIN LEVEL 4-6; Start 01/04/17 at 19:30 Morphine Sulfate (morphine) 2 mg Q4H PRN IV SEVERE PAIN LEVEL 7-10 Last administered on 01/08/17 11:21; Admin Dose 2 MG; Start 01/04/17 at 19:30 Docusate Sodium (Colace) 100 mg Q12H PRN PO CONSTIPATION; Start 01/04/17 at 19: 30 Magnesium Hydroxide (Milk Of Mag) 30 ml DAILY PRN PO CONSTIPATION; Start at 19:30 Sodium Biphosphate/ Sodium Phosphate (Fleet Enema) 133 ml DAILY PRN [place] CONSTIPATION; Start 01/04/17 at 19:30 Heparin Sodium (Porcine) (Heparin (5000 Units/0.5 ml)) 5,000 unit Q12 SC Last administered on 01/11/17 08:33; Admin Dose 5,000 UNIT; Start 01/04/17 at 21:00 Lorazepam (Ativan) 0.5 mg Q6H PRN IV ANXIETY Last administered on 01/08/17 05: 58; Admin Dose 0.5 MG; Start 01/04/17 at 19:30 Hydralazine HCl (Apresoline) 10 mg Q6H PRN IV ELEVATED BLOOD PRESSURE; Start at 19:30 Nitroglycerin (Nitroglycerin (Sl Tab) 0.4 Mg) 1 tab Q5M PRN SL ANGINA; Start at 19:30 Insulin Aspart (Novolog Insulin Pen) NOVOLOG *MILD* ALGORI... Q4 SC Last administered on 01/06/17 20:40; Admin Dose 1 UNIT; Start 01/04/17 at 21:00 Phenobarbital (Luminal) 64.8 mg BID PO Last administered on 01/04/17 23:45; Admin Dose 64.8 MG; Start 01/04/17 at 21:00; Status Future Hold Topiramate (Topamax) 200 mg BID PO ; Start 01/05/17 at 21:00; Status Future Hold Miscellaneous Information 1 ea NOTE XX ; Start 01/04/17 at 19:30 Glucose (Glutose) 15 gm Q15M PRN PO DECREASED GLUCOSE; Start 01/04/17 at 19:30 Glucose (Glutose) 22.5 gm Q15M PRN PO DECREASED GLUCOSE; Start 01/04/17 at 19:30 Dextrose (D50w Syringe) 25 ml Q15M PRN IV DECREASED GLUCOSE Last administered on 01/08/17 05:36; Admin Dose 25 ML; Start 01/04/17 at 19:30 Dextrose (D50w Syringe) 50 ml Q15M PRN IV DECREASED GLUCOSE; Start 01/04/17 at 19:30 Glucagon (Glucagen) 1 mg Q15M PRN IM DECREASED GLUCOSE; Start 01/04/17 at 19:30 Glucose (Glutose) 15 gm Q15M PRN BUCCAL DECREASED GLUCOSE; Start 01/04/17 at 19: 30 Phenytoin (Dilantin Susp Cup) 100 mg TID PO Last administered on 01/04/17 23:44 ; Admin Dose 100 MG; Start 01/04/17 at 21:50; Status Future Hold Clonazepam 0.5 mg 0.5 mg Q8H PO Last administered on 01/04/17 23:45; Admin Dose 0.5 MG; Start 01/04/17 at 23:00; Status Future Hold Norepinephrine 16 mg/Dextrose 500 ml @ 1.87 mls/hr TITRATE IV Last administered on 01/07/17 00:23; Admin Dose 15 MLS/HR; Start 01/05/17 at 00:30 Fentanyl 100 ml @ 2.5 mls/hr TITRATE IV Last administered on 01/11/17 05:13; Admin Dose 10 MLS/HR; Start 01/05/17 at 08:39 Midazolam HCl 50 ml @ 1 mls/hr TITRATE IV Last administered on 01/11/17 05:13 ; Admin Dose 10 MLS/HR; Start 01/05/17 at 08:41 Levetiracetam 100 ml @ 400 mls/hr Q12 IVPB Last administered on 01/11/17 08: 31; Admin Dose 400 MLS/HR; Start 01/05/17 at 11:30 Vasopressin 60 unit/Dextrose 60 ml @ 1.2 mls/hr Q12H IV Last administered on 22:32; Admin Dose 2.4 MLS/HR; Start 01/05/17 at 17:30 Epinephrine 4 mg/ Sodium Chloride 250 ml @ 0 mls/hr TITRATE IV ; Start 01/05/17 at 18:30 Phenylephrine HCl/ Dextrose (Robert-Syneph/D5W) 500 ml @ 18.75 mls/ hr TITRATE IV Last administered on 01/07/17 23:21; Admin Dose 26.25 MLS/HR; Start 01/05/17 at 20:30 Acetaminophen 650 mg 650 mg Q4H PRN NGT PAIN AND OR ELEVATED TEMP Last administered on 01/06/17 04:29; Admin Dose 650 MG; Start 01/06/17 at 04:30 Piperacillin Sod/ Tazobactam Sod (Zosyn 2.25gm/ 50ml (Pmx)) 50 ml @ 100 mls/hr Q8 IVPB Last administered on 01/11/17 05:14; Admin Dose 100 MLS/HR; Start 01/06 at 14:00 Insulin Glargine (Lantus) 10 unit DAILY SC Last administered on 01/07/17 08:19 ; Admin Dose 10 UNIT; Start 01/06/17 at 14:00; Status Future Hold Epoetin [place] 54021 units 10,000 units MoWeFr@17 SC Last administered on 17:17; Admin Dose 10,000 UNITS; Start 01/09/17 at 17:00 Acetaminophen 100 ml @ 400 mls/hr Q6H PRN IVPB FEVER Last administered on 01/10 09:11; Admin Dose 400 MLS/HR; Start 01/10/17 at 06:30 Bumetanide 25 mg/ Dextrose 250 ml @ 10 mls/hr Q24H IV Last administered on 09:34; Admin Dose 10 MLS/HR; Start 01/10/17 at 09:30 Vancomycin HCl/ Sodium Chloride (Vancocin/NS) 150 ml @ 75 mls/hr Q72H IVPB Last administered on 01/10/17 17:57; Admin Dose 75 MLS/HR; Start 01/10/17 at 18 :00 IV Flush 10 ml 10 ml PRN PRN IV IV PROTOCOL; Start 01/10/17 at 11:30 Dextrose (D10w) 1,000 ml @ 50 mls/hr Q20H IV Last administered on 01/11/17t 10 :14; Admin Dose 50 MLS/HR; Start 01/10/17 at 14:00 GAYE BARRON MD Jan 11, 2017 11:15
--- NOTE | 2017-01-11 11:26 | CONS ---
Date/Time of Note Date/Time of Note DATE: 01/11/17 TIME: 11:25 Assessment/Plan Assessment/Plan Additional Assessment/Plan Paroxysmal atrial fibrillation Severe sepsis Acute pancreatitis Preserved ejection fraction Respiratory failure, vent dependent Acute kidney injury Seizure disorder Psychiatric disorder Acute blood loss anemia -Currently remains in sinus rhythm. Fluid management and diuretics as per our nephrology colleagues. Would start amiodarone to help maintain in sinus rhythm. Patient for possible ERCP given presumed gallstone pancreatitis. Given the etiology of patient's sepsis likely secondary to pancreatitis and possibility of curative treatment with ERCP, the benefits likely outweigh the risks. Consultation Date/Type/Reason Admit Date/Time Jan 04, 2017 at 19:10 Initial Consult Date 01/05/17 Type of Consultation: cv Referring Provider: YING CASTAÑEDA 24 HR Interval Summary Free Text/Dictation Patient seen and examined, no new cardiac issues as per nursing staff Exam/Review of Systems Vital Signs Vitals Vital Signs Date Time Temp Pulse Resp B/P Pulse Ox O2 Delivery O2 Flow Rate FiO2 01/11/17 11:15 123 26 98 30 01/11/17 10:00 135/83 Mechanical Ventilator 01/11/17 07:56 99.9 Intake and Output 01/10/17 01/10/17 01/11/17 15:00 23:00 07:00 Intake Total 1160.6 ml 940 ml 610 ml Output Total 390 ml 785 ml 574 ml Balance 770.6 ml 155 ml 36 ml Exam Sedated and intubated Head: normocephalic ENMT: intubated Respiratory: other (Coarse breath sounds bilaterally, no wheezing) Cardiovascular: other (S1-S2 heard), regular rate and rhythm Gastrointestinal: bowel sounds, non-tender, soft Extremities: edema Results Result Diagram: 01/11/17 0410 01/11/17 0410 Results 24 hrs Laboratory Tests Test 01/10/17 12:30 01/10/17 17:31 01/10/17 17:50 01/10/17 20:53 Bedside Glucose 72 82 85 Potassium Level 4.0 Test 01/11/17 00:13 01/11/17 04:10 01/11/17 05:19 01/11/17 08:39 Bedside Glucose 80 85 88 White Blood Count 20.5 #H Red Blood Count 3.50 L Hemoglobin 10.7 L Hematocrit 30.7 L Mean Corpuscular Volume 87.7 Mean Corpuscular Hemoglobin 30.6 Mean Corpuscular Hemoglobin Concent 34.9 Red Cell Distribution Width 14.5 Platelet Count 220 # Mean Platelet Volume 10.9 H Neutrophils % 89.2 H Lymphocytes % 4.2 L Monocytes % 3.7 Eosinophils % 0.1 Basophils % 0.5 Nucleated Red Blood Cells % 0.0 Neutrophils # 18.2 H Lymphocytes # 0.9 Monocytes # 0.8 Eosinophils # 0.0 Basophils # 0.1 Nucleated Red Blood Cells # 0.0 Sodium Level 130 L Potassium Level 4.2 Chloride Level 99 Carbon Dioxide Level 20 L Anion Gap 15 Blood Urea Nitrogen 73 H Creatinine 5.71 H Glucose Level 80 Calcium Level 7.1 L Phosphorus Level 5.9 H Magnesium Level 2.0 Total Bilirubin 0.5 Direct Bilirubin 0.40 H Indirect Bilirubin 0.1 Aspartate Amino Transf (AST/SGOT) 30 Alanine Aminotransferase (ALT/SGPT) 56 Alkaline Phosphatase 211 H Total Protein 4.8 L Albumin 2.7 L Lipase 759 H Medications Medications Current Medications Ondansetron HCl (Zofran Inj) 4 mg Q6H PRN IV NAUSEA AND/OR VOMITING; Start 01/04 at 19:30 Acetaminophen/ Hydrocodone Bitart ([place] (5/325)) 1 tab Q6H PRN PO MODERATE PAIN LEVEL 4-6; Start 01/04/17 at 19:30 Morphine Sulfate (morphine) 2 mg Q4H PRN IV SEVERE PAIN LEVEL 7-10 Last administered on 01/08/17 11:21; Admin Dose 2 MG; Start 01/04/17 at 19:30 Docusate Sodium (Colace) 100 mg Q12H PRN PO CONSTIPATION; Start 01/04/17 at 19: 30 Magnesium Hydroxide (Milk Of Mag) 30 ml DAILY PRN PO CONSTIPATION; Start at 19:30 Sodium Biphosphate/ Sodium Phosphate (Fleet Enema) 133 ml DAILY PRN [place] CONSTIPATION; Start 01/04/17 at 19:30 Heparin Sodium (Porcine) (Heparin (5000 Units/0.5 ml)) 5,000 unit Q12 SC Last administered on 01/11/17 08:33; Admin Dose 5,000 UNIT; Start 01/04/17 at 21:00 Lorazepam (Ativan) 0.5 mg Q6H PRN IV ANXIETY Last administered on 01/08/17 05: 58; Admin Dose 0.5 MG; Start 01/04/17 at 19:30 Hydralazine HCl (Apresoline) 10 mg Q6H PRN IV ELEVATED BLOOD PRESSURE; Start at 19:30 Nitroglycerin (Nitroglycerin (Sl Tab) 0.4 Mg) 1 tab Q5M PRN SL ANGINA; Start at 19:30 Insulin Aspart (Novolog Insulin Pen) NOVOLOG *MILD* ALGORI... Q4 SC Last administered on 01/06/17 20:40; Admin Dose 1 UNIT; Start 01/04/17 at 21:00 Phenobarbital (Luminal) 64.8 mg BID PO Last administered on 01/04/17 23:45; Admin Dose 64.8 MG; Start 01/04/17 at 21:00; Status Future Hold Topiramate (Topamax) 200 mg BID PO ; Start 01/05/17 at 21:00; Status Future Hold Miscellaneous Information 1 ea NOTE XX ; Start 01/04/17 at 19:30 Glucose (Glutose) 15 gm Q15M PRN PO DECREASED GLUCOSE; Start 01/04/17 at 19:30 Glucose (Glutose) 22.5 gm Q15M PRN PO DECREASED GLUCOSE; Start 01/04/17 at 19:30 Dextrose (D50w Syringe) 25 ml Q15M PRN IV DECREASED GLUCOSE Last administered on 01/08/17 05:36; Admin Dose 25 ML; Start 01/04/17 at 19:30 Dextrose (D50w Syringe) 50 ml Q15M PRN IV DECREASED GLUCOSE; Start 01/04/17 at 19:30 Glucagon (Glucagen) 1 mg Q15M PRN IM DECREASED GLUCOSE; Start 01/04/17 at 19:30 Glucose (Glutose) 15 gm Q15M PRN BUCCAL DECREASED GLUCOSE; Start 01/04/17 at 19: 30 Phenytoin (Dilantin Susp Cup) 100 mg TID PO Last administered on 01/04/17 23:44 ; Admin Dose 100 MG; Start 01/04/17 at 21:50; Status Future Hold Clonazepam 0.5 mg 0.5 mg Q8H PO Last administered on 01/04/17 23:45; Admin Dose 0.5 MG; Start 01/04/17 at 23:00; Status Future Hold Norepinephrine 16 mg/Dextrose 500 ml @ 1.87 mls/hr TITRATE IV Last administered on 01/07/17 00:23; Admin Dose 15 MLS/HR; Start 01/05/17 at 00:30 Fentanyl 100 ml @ 2.5 mls/hr TITRATE IV Last administered on 01/11/17 05:13; Admin Dose 10 MLS/HR; Start 01/05/17 at 08:39 Midazolam HCl 50 ml @ 1 mls/hr TITRATE IV Last administered on 01/11/17 05:13 ; Admin Dose 10 MLS/HR; Start 01/05/17 at 08:41 Levetiracetam 100 ml @ 400 mls/hr Q12 IVPB Last administered on 01/11/17 08: 31; Admin Dose 400 MLS/HR; Start 01/05/17 at 11:30 Vasopressin 60 unit/Dextrose 60 ml @ 1.2 mls/hr Q12H IV Last administered on 22:32; Admin Dose 2.4 MLS/HR; Start 01/05/17 at 17:30 Epinephrine 4 mg/ Sodium Chloride 250 ml @ 0 mls/hr TITRATE IV ; Start 01/05/17 at 18:30 Phenylephrine HCl/ Dextrose (Robert-Syneph/D5W) 500 ml @ 18.75 mls/ hr TITRATE IV Last administered on 01/07/17 23:21; Admin Dose 26.25 MLS/HR; Start 01/05/17 at 20:30 Acetaminophen 650 mg 650 mg Q4H PRN NGT PAIN AND OR ELEVATED TEMP Last administered on 01/06/17 04:29; Admin Dose 650 MG; Start 01/06/17 at 04:30 Piperacillin Sod/ Tazobactam Sod (Zosyn 2.25gm/ 50ml (Pmx)) 50 ml @ 100 mls/hr Q8 IVPB Last administered on 01/11/17 05:14; Admin Dose 100 MLS/HR; Start 01/06 at 14:00 Insulin Glargine (Lantus) 10 unit DAILY SC Last administered on 01/07/17 08:19 ; Admin Dose 10 UNIT; Start 01/06/17 at 14:00; Status Future Hold Epoetin Mina 06148 units 10,000 units MoWeFr@17 SC Last administered on 17:17; Admin Dose 10,000 UNITS; Start 01/09/17 at 17:00 Acetaminophen 100 ml @ 400 mls/hr Q6H PRN IVPB FEVER Last administered on 01/10 09:11; Admin Dose 400 MLS/HR; Start 01/10/17 at 06:30 Bumetanide 25 mg/ Dextrose 250 ml @ 10 mls/hr Q24H IV Last administered on 09:34; Admin Dose 10 MLS/HR; Start 01/10/17 at 09:30 Vancomycin HCl/ Sodium Chloride (Vancocin/NS) 150 ml @ 75 mls/hr Q72H IVPB Last administered on 01/10/17 17:57; Admin Dose 75 MLS/HR; Start 01/10/17 at 18 :00 IV Flush 10 ml 10 ml PRN PRN IV IV PROTOCOL; Start 01/10/17 at 11:30 Dextrose (D10w) 1,000 ml @ 50 mls/hr Q20H IV Last administered on 01/11/17 10 :14; Admin Dose 50 MLS/HR; Start 01/10/17 at 14:00 Vlad Leyva DO Jan 11, 2017 11:26
--- NOTE | 2017-01-11 11:29 | CONS ---
Date/Time of Note Date/Time of Note DATE: 01/11/17 TIME: 11:04 Consult Date/Type/Reason Admit Date/Time Jan 04, 2017 at 19:10 Initial Consult Date 01/05/17 Type of Consultation: Pulmonary Ordering Provider: YING CASTAÑEDA Subjective Patient somnolent this morning but grimaces to painful stimuli Objective Vital Signs Date Time Temp Pulse Resp B/P Pulse Ox O2 Delivery O2 Flow Rate FiO2 01/11/17 10:00 122 26 135/83 97 Mechanical Ventilator 01/11/17 07:56 99.9 01/11/17 05:36 30 Intake and Output 01/10/17 01/10/17 01/11/17 15:00 23:00 07:00 Intake Total 1160.6 ml 940 ml 610 ml Output Total 390 ml 785 ml 574 ml Balance 770.6 ml 155 ml 36 ml Exam PHYSICAL EXAMINATION GENERAL: Elderly lady intubated in ventilation is comfortable at rest VITAL SIGNS: see below. HEENT: Pupils equal, round, and reactive to light. Tracheostomy site clean and intact. CARDIAC: S1, S2, 1/6 systolic ejection murmur CHEST: Diminished air entry bilaterally. ABDOMEN: Mildly distended. Bowel sounds present no guarding or rebound EXTREMITIES: No cyanosis, clubbing edema +1 NEUROLOGIC: Generalized weakness Results/Medications Result Diagram: 01/11/1740901/11/17409 Results 24 hrs Chest x-ray Right greater than left effusion, edema Laboratory Tests Test 01/10/17 12:30 01/10/17 17:31 01/10/17 17:50 01/10/17 20:53 Bedside Glucose 72 82 85 Potassium Level 4.0 Test 01/11/17 00:13 01/11/17 04:10 01/11/17 05:19 01/11/17 08:39 Bedside Glucose 80 85 88 White Blood Count 20.5 #H Red Blood Count 3.50 L Hemoglobin 10.7 L Hematocrit 30.7 L Mean Corpuscular Volume 87.7 Mean Corpuscular Hemoglobin 30.6 Mean Corpuscular Hemoglobin Concent 34.9 Red Cell Distribution Width 14.5 Platelet Count 220 # Mean Platelet Volume 10.9 H Neutrophils % 89.2 H Lymphocytes % 4.2 L Monocytes % 3.7 Eosinophils % 0.1 Basophils % 0.5 Nucleated Red Blood Cells % 0.0 Neutrophils # 18.2 H Lymphocytes # 0.9 Monocytes # 0.8 Eosinophils # 0.0 Basophils # 0.1 Nucleated Red Blood Cells # 0.0 Sodium Level 130 L Potassium Level 4.2 Chloride Level 99 Carbon Dioxide Level 20 L Anion Gap 15 Blood Urea Nitrogen 73 H Creatinine 5.71 H Glucose Level 80 Calcium Level 7.1 L Phosphorus Level 5.9 H Magnesium Level 2.0 Total Bilirubin 0.5 Direct Bilirubin 0.40 H Indirect Bilirubin 0.1 Aspartate Amino Transf (AST/SGOT) 30 Alanine Aminotransferase (ALT/SGPT) 56 Alkaline Phosphatase 211 H Total Protein 4.8 L Albumin 2.7 L Lipase 759 H Medications Current Medications Ondansetron HCl (Zofran Inj) 4 mg Q6H PRN IV NAUSEA AND/OR VOMITING; Start 01/04 at 19:30 Acetaminophen/ Hydrocodone Bitart ([place] (5/325)) 1 tab Q6H PRN PO MODERATE PAIN LEVEL 4-6; Start 01/04/17 at 19:30 Morphine Sulfate (morphine) 2 mg Q4H PRN IV SEVERE PAIN LEVEL 7-10 Last administered on 01/08/17 11:21; Admin Dose 2 MG; Start 01/04/17 at 19:30 Docusate Sodium (Colace) 100 mg Q12H PRN PO CONSTIPATION; Start 01/04/17 at 19: 30 Magnesium Hydroxide (Milk Of Mag) 30 ml DAILY PRN PO CONSTIPATION; Start at 19:30 Sodium Biphosphate/ Sodium Phosphate (Fleet Enema) 133 ml DAILY PRN [place] CONSTIPATION; Start 01/04/17 at 19:30 Heparin Sodium (Porcine) (Heparin (5000 Units/0.5 ml)) 5,000 unit Q12 SC Last administered on 01/11/17 08:33; Admin Dose 5,000 UNIT; Start 01/04/17 at 21:00 Lorazepam (Ativan) 0.5 mg Q6H PRN IV ANXIETY Last administered on 01/08/17 05: 58; Admin Dose 0.5 MG; Start 01/04/17 at 19:30 Hydralazine HCl (Apresoline) 10 mg Q6H PRN IV ELEVATED BLOOD PRESSURE; Start at 19:30 Nitroglycerin (Nitroglycerin (Sl Tab) 0.4 Mg) 1 tab Q5M PRN SL ANGINA; Start at 19:30 Insulin Aspart (Novolog Insulin Pen) NOVOLOG *MILD* ALGORI... Q4 SC Last administered on 01/06/17 20:40; Admin Dose 1 UNIT; Start 01/04/17 at 21:00 Phenobarbital (Luminal) 64.8 mg BID PO Last administered on 01/04/17 23:45; Admin Dose 64.8 MG; Start 01/04/17 at 21:00; Status Future Hold Topiramate (Topamax) 200 mg BID PO ; Start 01/05/17 at 21:00; Status Future Hold Miscellaneous Information 1 ea NOTE XX ; Start 01/04/17 at 19:30 Glucose (Glutose) 15 gm Q15M PRN PO DECREASED GLUCOSE; Start 01/04/17 at 19:30 Glucose (Glutose) 22.5 gm Q15M PRN PO DECREASED GLUCOSE; Start 01/04/17 at 19:30 Dextrose (D50w Syringe) 25 ml Q15M PRN IV DECREASED GLUCOSE Last administered on 01/08/17 05:36; Admin Dose 25 ML; Start 01/04/17 at 19:30 Dextrose (D50w Syringe) 50 ml Q15M PRN IV DECREASED GLUCOSE; Start 01/04/17 at 19:30 Glucagon (Glucagen) 1 mg Q15M PRN IM DECREASED GLUCOSE; Start 01/04/17 at 19:30 Glucose (Glutose) 15 gm Q15M PRN BUCCAL DECREASED GLUCOSE; Start 01/04/17 at 19: 30 Phenytoin (Dilantin Susp Cup) 100 mg TID PO Last administered on 01/04/17 23:44 ; Admin Dose 100 MG; Start 01/04/17 at 21:50; Status Future Hold Clonazepam 0.5 mg 0.5 mg Q8H PO Last administered on 01/04/17 23:45; Admin Dose 0.5 MG; Start 01/04/17 at 23:00; Status Future Hold Norepinephrine 16 mg/Dextrose 500 ml @ 1.87 mls/hr TITRATE IV Last administered on 01/07/17 00:23; Admin Dose 15 MLS/HR; Start 01/05/17 at 00:30 Fentanyl 100 ml @ 2.5 mls/hr TITRATE IV Last administered on 01/11/17 05:13; Admin Dose 10 MLS/HR; Start 01/05/17 at 08:39 Midazolam HCl 50 ml @ 1 mls/hr TITRATE IV Last administered on 01/11/17 05:13 ; Admin Dose 10 MLS/HR; Start 01/05/17 at 08:41 Levetiracetam 100 ml @ 400 mls/hr Q12 IVPB Last administered on 01/11/17 08: 31; Admin Dose 400 MLS/HR; Start 01/05/17 at 11:30 Vasopressin 60 unit/Dextrose 60 ml @ 1.2 mls/hr Q12H IV Last administered on 22:32; Admin Dose 2.4 MLS/HR; Start 01/05/17 at 17:30 Epinephrine 4 mg/ Sodium Chloride 250 ml @ 0 mls/hr TITRATE IV ; Start 01/05/17 at 18:30 Phenylephrine HCl/ Dextrose (Robert-Syneph/D5W) 500 ml @ 18.75 mls/ hr TITRATE IV Last administered on 01/07/17 23:21; Admin Dose 26.25 MLS/HR; Start 01/05/17 at 20:30 Acetaminophen 650 mg 650 mg Q4H PRN NGT PAIN AND OR ELEVATED TEMP Last administered on 01/06/17 04:29; Admin Dose 650 MG; Start 01/06/17 at 04:30 Piperacillin Sod/ Tazobactam Sod (Zosyn 2.25gm/ 50ml (Pmx)) 50 ml @ 100 mls/hr Q8 IVPB Last administered on 01/11/17 05:14; Admin Dose 100 MLS/HR; Start 01/06 at 14:00 Insulin Glargine (Lantus) 10 unit DAILY SC Last administered on 01/07/17 08:19 ; Admin Dose 10 UNIT; Start 01/06/17 at 14:00; Status Future Hold Epoetin Mina 00323 units 10,000 units MoWeFr@17 SC Last administered on 17:17; Admin Dose 10,000 UNITS; Start 01/09/17 at 17:00 Acetaminophen 100 ml @ 400 mls/hr Q6H PRN IVPB FEVER Last administered on 01/10 09:11; Admin Dose 400 MLS/HR; Start 01/10/17 at 06:30 Bumetanide 25 mg/ Dextrose 250 ml @ 10 mls/hr Q24H IV Last administered on 09:34; Admin Dose 10 MLS/HR; Start 01/10/17 at 09:30 Vancomycin HCl/ Sodium Chloride (Vancocin/NS) 150 ml @ 75 mls/hr Q72H IVPB Last administered on 01/10/17 17:57; Admin Dose 75 MLS/HR; Start 01/10/17 at 18 :00 IV Flush 10 ml 10 ml PRN PRN IV IV PROTOCOL; Start 01/10/17 at 11:30 Dextrose (D10w) 1,000 ml @ 50 mls/hr Q20H IV Last administered on 01/11/17 10 :14; Admin Dose 50 MLS/HR; Start 01/10/17 at 14:00 Assessment/Plan Chief Complaint/Hosp Course IMP: 1. Severe pancreatitis with septic shock 2. Metabolic acidosis secondary to above and ARF 3. Renal failure likely ATN 4. Hypoxemic respiratory failure secondary to above 5. History of seizure disorder RECS: 1. Continue albumin/lasix may require hemodialysis will discuss with nephrology 2. Continue mechanical ventilation, weaning trial once ERCP has been performed. Will discuss with GI regarding schedule. 3. Broad-spectrum antibiotic coverage 4. Nasogastric tube to suction 35 min cc time Problems: AMPARO VALERIO MD, [facility] Jan 11, 2017 11:14
[2017-01-11] MEDS: BUMETANIDE 25 MG in DEXTROSE 5% 150 ML IV SCH (11:38)
[2017-01-11] MEDS: AMIODARONE 200 MG TAB GTB SCH ×2 (12:49→21:32)
--- NOTE | 2017-01-11 14:05 | CONS ---
Date/Time of Note Date/Time of Note DATE: 01/11/17 TIME: 14:04 Assessment/Plan Assessment/Plan Additional Assessment/Plan Renal failure We will proceed with a placement of a dialysis catheter Consultation Date/Type/Reason Admit Date/Time Jan 04, 2017 at 19:10 Date of Consultation: Jan 11, 2017 Reason for Consultation Renal failure Hx of Present Illness This is a 61-year-old female who was admitted because of pneumonia was found for progressively worsening renal failure will be needing needing acute dialysis Constitutional: other Respiratory: no complaints Cardiovascular: no complaints, No chest pain, No edema, No lightheadedness, No orthopenea, No other, No palpitations, No paroxysmal nocturnal dyspnea Gastrointestinal: no complaints Genitourinary: no complaints Musculoskeletal: no complaints Skin: no complaints Psychological: No nl mood/affect Past Medical History Medical History: diabetes Past Surgical History Past Surgical Hx: other (Skin grafts, seizure disorder) Social History Alcohol Use: none Smoking Status: Never smoker Drug Use: none Exam/Review of Systems Vital Signs Vitals Vital Signs Date Time Temp Pulse Resp B/P Pulse Ox O2 Delivery O2 Flow Rate FiO2 01/11/17 13:00 124 26 151/85 98 Mechanical Ventilator 01/11/17 11:15 30 01/11/17 11:00 99.4 Intake and Output 01/10/17 01/10/17 01/11/17 15:00 23:00 07:00 Intake Total 1160.6 ml 940 ml 670 ml Output Total 390 ml 785 ml 574 ml Balance 770.6 ml 155 ml 96 ml Exam Intubated ENMT: nl external ears & nose, nl lips & teeth, nl nasal mucosa & septum Neck: non-tender, supple Respiratory: clear to auscultation, normal air movement Cardiovascular: nl pulses, regular rate and rhythm Gastrointestinal: nl liver, spleen, non-tender, soft Results Result Diagram: 01/11/17 0410 01/11/17 0410 Results 24 hrs Laboratory Tests Test 01/10/17 17:31 01/10/17 17:50 01/10/17 20:53 01/11/17 00:13 Bedside Glucose 82 85 80 Potassium Level 4.0 Test 01/11/17 04:10 01/11/17 05:19 01/11/17 08:39 01/11/17 12:30 White Blood Count 20.5 #H Red Blood Count 3.50 L Hemoglobin 10.7 L Hematocrit 30.7 L Mean Corpuscular Volume 87.7 Mean Corpuscular Hemoglobin 30.6 Mean Corpuscular Hemoglobin Concent 34.9 Red Cell Distribution Width 14.5 Platelet Count 220 # Mean Platelet Volume 10.9 H Neutrophils % 89.2 H Lymphocytes % 4.2 L Monocytes % 3.7 Eosinophils % 0.1 Basophils % 0.5 Nucleated Red Blood Cells % 0.0 Neutrophils # 18.2 H Lymphocytes # 0.9 Monocytes # 0.8 Eosinophils # 0.0 Basophils # 0.1 Nucleated Red Blood Cells # 0.0 Sodium Level 130 L Potassium Level 4.2 Chloride Level 99 Carbon Dioxide Level 20 L Anion Gap 15 Blood Urea Nitrogen 73 H Creatinine 5.71 H Glucose Level 80 Calcium Level 7.1 L Phosphorus Level 5.9 H Magnesium Level 2.0 Total Bilirubin 0.5 Direct Bilirubin 0.40 H Indirect Bilirubin 0.1 Aspartate Amino Transf (AST/SGOT) 30 Alanine Aminotransferase (ALT/SGPT) 56 Alkaline Phosphatase 211 H Total Protein 4.8 L Albumin 2.7 L Lipase 759 H Bedside Glucose 85 88 Lab Scanned Report REFERENCE LAB Test 01/11/17 12:51 Bedside Glucose 97 Medications Medications Current Medications Ondansetron HCl (Zofran Inj) 4 mg Q6H PRN IV NAUSEA AND/OR VOMITING; Start 01/04 at 19:30 Acetaminophen/ Hydrocodone Bitart ([place] (5/325)) 1 tab Q6H PRN PO MODERATE PAIN LEVEL 4-6; Start 01/04/17 at 19:30 Morphine Sulfate (morphine) 2 mg Q4H PRN IV SEVERE PAIN LEVEL 7-10 Last administered on 01/08/17 11:21; Admin Dose 2 MG; Start 01/04/17 at 19:30 Docusate Sodium (Colace) 100 mg Q12H PRN PO CONSTIPATION; Start 01/04/17 at 19: 30 Magnesium Hydroxide (Milk Of Mag) 30 ml DAILY PRN PO CONSTIPATION; Start at 19:30 Sodium Biphosphate/ Sodium Phosphate (Fleet Enema) 133 ml DAILY PRN [place] CONSTIPATION; Start 01/04/17 at 19:30 Heparin Sodium (Porcine) (Heparin (5000 Units/0.5 ml)) 5,000 unit Q12 SC Last administered on 01/11/17 08:33; Admin Dose 5,000 UNIT; Start 01/04/17 at 21:00 Lorazepam (Ativan) 0.5 mg Q6H PRN IV ANXIETY Last administered on 01/08/17 05: 58; Admin Dose 0.5 MG; Start 01/04/17 at 19:30 Hydralazine HCl (Apresoline) 10 mg Q6H PRN IV ELEVATED BLOOD PRESSURE; Start at 19:30 Nitroglycerin (Nitroglycerin (Sl Tab) 0.4 Mg) 1 tab Q5M PRN SL ANGINA; Start at 19:30 Insulin Aspart (Novolog Insulin Pen) NOVOLOG *MILD* ALGORI... Q4 SC Last administered on 01/06/17 20:40; Admin Dose 1 UNIT; Start 01/04/17 at 21:00 Phenobarbital (Luminal) 64.8 mg BID PO Last administered on 01/04/17 23:45; Admin Dose 64.8 MG; Start 01/04/17 at 21:00; Status Future Hold Topiramate (Topamax) 200 mg BID PO ; Start 01/05/17 at 21:00; Status Future Hold Miscellaneous Information 1 ea NOTE XX ; Start 01/04/17 at 19:30 Glucose (Glutose) 15 gm Q15M PRN PO DECREASED GLUCOSE; Start 01/04/17 at 19:30 Glucose (Glutose) 22.5 gm Q15M PRN PO DECREASED GLUCOSE; Start 01/04/17 at 19:30 Dextrose (D50w Syringe) 25 ml Q15M PRN IV DECREASED GLUCOSE Last administered on 01/08/17 05:36; Admin Dose 25 ML; Start 01/04/17 at 19:30 Dextrose (D50w Syringe) 50 ml Q15M PRN IV DECREASED GLUCOSE; Start 01/04/17 at 19:30 Glucagon (Glucagen) 1 mg Q15M PRN IM DECREASED GLUCOSE; Start 01/04/17 at 19:30 Glucose (Glutose) 15 gm Q15M PRN BUCCAL DECREASED GLUCOSE; Start 01/04/17 at 19: 30 Phenytoin (Dilantin Susp Cup) 100 mg TID PO Last administered on 01/04/17 23:44 ; Admin Dose 100 MG; Start 01/04/17 at 21:50; Status Future Hold Clonazepam 0.5 mg 0.5 mg Q8H PO Last administered on 01/04/17 23:45; Admin Dose 0.5 MG; Start 01/04/17 at 23:00; Status Future Hold Norepinephrine 16 mg/Dextrose 500 ml @ 1.87 mls/hr TITRATE IV Last administered on 01/07/17 00:23; Admin Dose 15 MLS/HR; Start 01/05/17 at 00:30 Fentanyl 100 ml @ 2.5 mls/hr TITRATE IV Last administered on 01/11/17 05:13; Admin Dose 10 MLS/HR; Start 01/05/17 at 08:39 Midazolam HCl 50 ml @ 1 mls/hr TITRATE IV Last administered on 01/11/17 05:13 ; Admin Dose 10 MLS/HR; Start 01/05/17 at 08:41 Levetiracetam 100 ml @ 400 mls/hr Q12 IVPB Last administered on 01/11/17 08: 31; Admin Dose 400 MLS/HR; Start 01/05/17 at 11:30 Vasopressin 60 unit/Dextrose 60 ml @ 1.2 mls/hr Q12H IV Last administered on 22:32; Admin Dose 2.4 MLS/HR; Start 01/05/17 at 17:30 Epinephrine 4 mg/ Sodium Chloride 250 ml @ 0 mls/hr TITRATE IV ; Start 01/05/17 at 18:30 Phenylephrine HCl/ Dextrose (Robert-Syneph/D5W) 500 ml @ 18.75 mls/ hr TITRATE IV Last administered on 01/07/17 23:21; Admin Dose 26.25 MLS/HR; Start 01/05/17 at 20:30 Acetaminophen 650 mg 650 mg Q4H PRN NGT PAIN AND OR ELEVATED TEMP Last administered on 01/06/17 04:29; Admin Dose 650 MG; Start 01/06/17 at 04:30 Piperacillin Sod/ Tazobactam Sod (Zosyn 2.25gm/ 50ml (Pmx)) 50 ml @ 100 mls/hr Q8 IVPB Last administered on 01/11/17 05:14; Admin Dose 100 MLS/HR; Start 01/06 at 14:00 Insulin Glargine (Lantus) 10 unit DAILY SC Last administered on 01/07/17 08:19 ; Admin Dose 10 UNIT; Start 01/06/17 at 14:00; Status Future Hold Epoetin M[place] 01957 units 10,000 units MoWeFr@17 SC Last administered on 17:17; Admin Dose 10,000 UNITS; Start 01/09/17 at 17:00 Acetaminophen 100 ml @ 400 mls/hr Q6H PRN IVPB FEVER Last administered on 01/10 09:11; Admin Dose 400 MLS/HR; Start 01/10/17 at 06:30 Vancomycin HCl/ Sodium Chloride (Vancocin/NS) 150 ml @ 75 mls/hr Q72H IVPB Last administered on 01/10/17 17:57; Admin Dose 75 MLS/HR; Start 01/10/17 at 18 :00 IV Flush 10 ml 10 ml PRN PRN IV IV PROTOCOL; Start 01/10/17 at 11:30 Dextrose (D10w) 1,000 ml @ 50 mls/hr Q20H IV Last administered on 01/11/17 10 :14; Admin Dose 50 MLS/HR; Start 01/10/17 at 14:00 Amiodarone HCl (Cordarone) 200 mg BID GTB Last administered on 01/11/17 12:49 ; Admin Dose 200 MG; Start 01/11/17 at 12:00 SAM GUTIERREZ MD Jan 11, 2017 14:05
--- NOTE | 2017-01-11 14:07 | OPR ---
Date/Time of Note Date/Time of Note DATE: 01/11/17 TIME: 14:05 Operative Report Procedure Date: Jan 11, 2017 Preoperative Diagnosis Renal failure Postoperative Diagnosis Renal failure Operation Performed Right femoral hemodialysis catheter placement Surgeon: SAM GUTIERREZ MD Anesthesia: other Estimated Blood Loss: none Grafts/Implants None Complications: None Pt Condition Post Procedure: stable Indications Renal failure Operative\Procedure Findings Patient was placed supine position prepped and draped in usual sterile fashion 1 % lidocaine was used throughout the operation for local anesthesia access was gained the right common femoral vein guidewire was advanced through without any difficulty subcutaneous tissues were dilated 20 cm dialysis catheter was advanced over a guidewire secured to skin using silk sutures both ports of the catheter were aspirated and injected using using heparin saline solution patient tolerated procedure well SAM GUTIERREZ MD Jan 11, 2017 14:07
[2017-01-11] MEDS: BALSAM PERU/CASTOR OIL 60 GM TUBE TOP SCH (14:18)
[2017-01-11] MEDS: ACCU-CHEK XX SCH ×2 (17:00→21:27)
[2017-01-11] MEDS: EPOETIN 10000 UNITS/ML (NON ESRD/NON ONCOLOGY) SC SCH (17:36)
[2017-01-11] MEDS: TPN 1,000 ML IV SCH (17:39)
--- NOTE | 2017-01-11 17:51 | CONS ---
Date/Time of Note Date/Time of Note DATE: 01/11/17 TIME: 17:50 Consultation Date/Type/Reason Admit Date/Time Jan 04, 2017 at 19:10 Type of Consultation: ID Constitutional: other Respiratory: no complaints Cardiovascular: no complaints, No chest pain, No edema, No lightheadedness, No orthopenea, No other, No palpitations, No paroxysmal nocturnal dyspnea Gastrointestinal: no complaints Genitourinary: no complaints Musculoskeletal: no complaints Skin: no complaints Psychological: No nl mood/affect Past Medical History Medical History: diabetes Past Surgical History Past Surgical Hx: other (Skin grafts, seizure disorder) Social History Alcohol Use: none Smoking Status: Never smoker Drug Use: none Exam/Review of Systems Vital Signs Vitals Vital Signs Date Time Temp Pulse Resp B/P Pulse Ox O2 Delivery O2 Flow Rate FiO2 01/11/17 17:12 125 26 98 30 01/11/17 17:00 129/89 Mechanical Ventilator 01/11/17 16:00 98.8 Intake and Output 01/10/17 01/10/17 01/11/17 15:00 23:00 07:00 Intake Total 1160.6 ml 940 ml 680 ml Output Total 390 ml 785 ml 574 ml Balance 770.6 ml 155 ml 106 ml Results Result Diagram: 01/11/17 0410 01/11/17 0410 Results 24 hrs Laboratory Tests Test 01/10/17 20:53 01/11/17 00:13 01/11/17 04:10 01/11/17 05:19 Bedside Glucose 85 80 85 White Blood Count 20.5 #H Red Blood Count 3.50 L Hemoglobin 10.7 L Hematocrit 30.7 L Mean Corpuscular Volume 87.7 Mean Corpuscular Hemoglobin 30.6 Mean Corpuscular Hemoglobin Concent 34.9 Red Cell Distribution Width 14.5 Platelet Count 220 # Mean Platelet Volume 10.9 H Neutrophils % 89.2 H Lymphocytes % 4.2 L Monocytes % 3.7 Eosinophils % 0.1 Basophils % 0.5 Nucleated Red Blood Cells % 0.0 Neutrophils # 18.2 H Lymphocytes # 0.9 Monocytes # 0.8 Eosinophils # 0.0 Basophils # 0.1 Nucleated Red Blood Cells # 0.0 Sodium Level 130 L Potassium Level 4.2 Chloride Level 99 Carbon Dioxide Level 20 L Anion Gap 15 Blood Urea Nitrogen 73 H Creatinine 5.71 H Glucose Level 80 Calcium Level 7.1 L Phosphorus Level 5.9 H Magnesium Level 2.0 Total Bilirubin 0.5 Direct Bilirubin 0.40 H Indirect Bilirubin 0.1 Aspartate Amino Transf (AST/SGOT) 30 Alanine Aminotransferase (ALT/SGPT) 56 Alkaline Phosphatase 211 H Total Protein 4.8 L Albumin 2.7 L Lipase 759 H Test 01/11/17 08:39 01/11/17 12:30 01/11/17 12:51 01/11/17 17:38 Bedside Glucose 88 97 112 Lab Scanned Report REFERENCE LAB Medications Medications Current Medications Ondansetron HCl (Zofran Inj) 4 mg Q6H PRN IV NAUSEA AND/OR VOMITING; Start 01/04 at 19:30 Acetaminophen/ Hydrocodone Bitart ([place] (5/325)) 1 tab Q6H PRN PO MODERATE PAIN LEVEL 4-6; Start 01/04/17 at 19:30 Morphine Sulfate (morphine) 2 mg Q4H PRN IV SEVERE PAIN LEVEL 7-10 Last administered on 01/08/17 11:21; Admin Dose 2 MG; Start 01/04/17 at 19:30 Docusate Sodium (Colace) 100 mg Q12H PRN PO CONSTIPATION; Start 01/04/17 at 19: 30 Magnesium Hydroxide (Milk Of Mag) 30 ml DAILY PRN PO CONSTIPATION; Start at 19:30 Sodium Biphosphate/ Sodium Phosphate (Fleet Enema) 133 ml DAILY PRN [place] CONSTIPATION; Start 01/04/17 at 19:30 Heparin Sodium (Porcine) (Heparin (5000 Units/0.5 ml)) 5,000 unit Q12 SC Last administered on 01/11/17 08:33; Admin Dose 5,000 UNIT; Start 01/04/17 at 21:00 Lorazepam (Ativan) 0.5 mg Q6H PRN IV ANXIETY Last administered on 01/08/17 05: 58; Admin Dose 0.5 MG; Start 01/04/17 at 19:30 Hydralazine HCl (Apresoline) 10 mg Q6H PRN IV ELEVATED BLOOD PRESSURE; Start at 19:30 Nitroglycerin (Nitroglycerin (Sl Tab) 0.4 Mg) 1 tab Q5M PRN SL ANGINA; Start at 19:30 Insulin Aspart (Novolog Insulin Pen) NOVOLOG *MILD* ALGORI... Q4 SC Last administered on 01/06/17 20:40; Admin Dose 1 UNIT; Start 01/04/17 at 21:00 Phenobarbital (Luminal) 64.8 mg BID PO Last administered on 01/04/17 23:45; Admin Dose 64.8 MG; Start 01/04/17 at 21:00; Status Future Hold Topiramate (Topamax) 200 mg BID PO ; Start 01/05/17 at 21:00; Status Future Hold Miscellaneous Information 1 ea NOTE XX ; Start 01/04/17 at 19:30 Glucose (Glutose) 15 gm Q15M PRN PO DECREASED GLUCOSE; Start 01/04/17 at 19:30 Glucose (Glutose) 22.5 gm Q15M PRN PO DECREASED GLUCOSE; Start 01/04/17 at 19:30 Dextrose (D50w Syringe) 25 ml Q15M PRN IV DECREASED GLUCOSE Last administered on 01/08/17 05:36; Admin Dose 25 ML; Start 01/04/17 at 19:30 Dextrose (D50w Syringe) 50 ml Q15M PRN IV DECREASED GLUCOSE; Start 01/04/17 at 19:30 Glucagon (Glucagen) 1 mg Q15M PRN IM DECREASED GLUCOSE; Start 01/04/17 at 19:30 Glucose (Glutose) 15 gm Q15M PRN BUCCAL DECREASED GLUCOSE; Start 01/04/17 at 19: 30 Phenytoin (Dilantin Susp Cup) 100 mg TID PO Last administered on 01/04/17 23:44 ; Admin Dose 100 MG; Start 01/04/17 at 21:50; Status Future Hold Clonazepam 0.5 mg 0.5 mg Q8H PO Last administered on 01/04/17 23:45; Admin Dose 0.5 MG; Start 01/04/17 at 23:00; Status Future Hold Norepinephrine 16 mg/Dextrose 500 ml @ 1.87 mls/hr TITRATE IV Last administered on 01/07/17 00:23; Admin Dose 15 MLS/HR; Start 01/05/17 at 00:30 Fentanyl 100 ml @ 2.5 mls/hr TITRATE IV Last administered on 01/11/17 05:13; Admin Dose 10 MLS/HR; Start 01/05/17 at 08:39 Midazolam HCl 50 ml @ 1 mls/hr TITRATE IV Last administered on 01/11/17 14:38 ; Admin Dose 10 MLS/HR; Start 01/05/17 at 08:41 Levetiracetam 100 ml @ 400 mls/hr Q12 IVPB Last administered on 01/11/17 08: 31; Admin Dose 400 MLS/HR; Start 01/05/17 at 11:30 Vasopressin 60 unit/Dextrose 60 ml @ 1.2 mls/hr Q12H IV Last administered on 22:32; Admin Dose 2.4 MLS/HR; Start 01/05/17 at 17:30 Epinephrine 4 mg/ Sodium Chloride 250 ml @ 0 mls/hr TITRATE IV ; Start 01/05/17 at 18:30 Phenylephrine HCl/ Dextrose (Robert-Syneph/D5W) 500 ml @ 18.75 mls/ hr TITRATE IV Last administered on 01/07/17 23:21; Admin Dose 26.25 MLS/HR; Start 01/05/17 at 20:30 Acetaminophen 650 mg 650 mg Q4H PRN NGT PAIN AND OR ELEVATED TEMP Last administered on 01/06/17 04:29; Admin Dose 650 MG; Start 01/06/17 at 04:30 Piperacillin Sod/ Tazobactam Sod (Zosyn 2.25gm/ 50ml (Pmx)) 50 ml @ 100 mls/hr Q8 IVPB Last administered on 01/11/17 14:18; Admin Dose 100 MLS/HR; Start 01/06 at 14:00 Insulin Glargine (Lantus) 10 unit DAILY SC Last administered on 01/07/17 08:19 ; Admin Dose 10 UNIT; Start 01/06/17 at 14:00; Status Future Hold Epoetin [place] 46995 units 10,000 units MoWeFr@17 SC Last administered on 17:36; Admin Dose 10,000 UNITS; Start 01/09/17 at 17:00 Acetaminophen 100 ml @ 400 mls/hr Q6H PRN IVPB FEVER Last administered on 01/10 09:11; Admin Dose 400 MLS/HR; Start 01/10/17 at 06:30 Vancomycin HCl/ Sodium Chloride (Vancocin/NS) 150 ml @ 75 mls/hr Q72H IVPB Last administered on 01/10/17 17:57; Admin Dose 75 MLS/HR; Start 01/10/17 at 18 :00 IV Flush 10 ml 10 ml PRN PRN IV IV PROTOCOL; Start 01/10/17 at 11:30 Dextrose (D10w) 1,000 ml @ 50 mls/hr Q20H IV Last administered on 01/11/17 10 :14; Admin Dose 50 MLS/HR; Start 01/10/17 at 14:00 Amiodarone HCl 200 mg 200 mg BID GTB Last administered on 01/11/17 12:49; Admin Dose 200 MG; Start 01/11/17 at 12:00 Total Parenteral Nutrition (Tpn) 1,000 ml @ 50 mls/hr Q20H IV Last administered on 01/11/17 17:39; Admin Dose 50 MLS/HR; Start 01/11/17 at 18:00 Diagnostic Test (Pha) (Accu-Chek) 1 ea Q4H XX ; Start 01/11/17 at 17:00 NEHA TOLEDO MD Jan 11, 2017 17:51
[2017-01-11] MEDS ORDERED: MIDAZOLAM 1 MG/ML 2 ML INJ ONE ×2 (23:10)
[2017-01-11] MEDS ORDERED: ROCURONIUM 50 MG INJ ONE (23:11)
[2017-01-11] MEDS ORDERED: DEXTROSE 50% 50 ML SYRINGE ONE (23:22)
[2017-01-12] VITALS (67 sets, daily range): BP systolic 87–140; BP diastolic 51–91; PULSE 92–142; RESP 22–35
[2017-01-12] MEDS ORDERED: HYDROmorphONE 1 MG/ML SYG IV PRN
[2017-01-12] MEDS: INSULIN ASPART [NOVOLOG] 3 ML PEN SC SCH ×6 (01:06→21:00)
[2017-01-12] MEDS: ACCU-CHEK XX SCH ×6 (01:38→21:04)
[2017-01-12] MEDS: MIDAZOLAM (DRIP) 50 mg/50 mL 50 ML IV SCH ×3 (01:53→22:18)
--- NOTE | 2017-01-12 02:17 | RADRPT ---
PROCEDURE: Fluoroscopy services. CLINICAL INDICATION: Choledocholithiasis. TECHNIQUE: Fluoroscopy services during ERCP. COMPARISON: CT examination the abdomen and pelvis dated 01/09/2017. FINDINGS: Fluoroscopy services during ERCP. 7 intraoperative spot films were obtained at intermediate stages during this procedure and demonstrate instrumentation and retrograde cannulization and opacification of the common bile duct. Balloon was deployed. 164.1 seconds of fluoroscopy time were employed during this procedure. IMPRESSION: Fluoroscopy services during ERCP. RPTAT: [facility] Physician Juan Jose Date Time Electronically viewed and signed by Physician Juan Jose on 01/12/2017 02:16 RS/
[2017-01-12] MEDS: VASOPRESSIN 60 UNIT in DEXTROSE 5% 57 ML IV SCH ×2 (04:31→17:10)
[2017-01-12 04:40] LABS: ADD SCAN DIFF NO
[2017-01-12 04:41] LABS: ABNORMAL IP MESSAGE 1; BASOPHIL # 0.1 10^3/ul (0.0-0.1); BASOPHILS % 0.3 % (0.0-2.0); EOSINOPHILS # 0.1 10^3/ul (0.0-0.5); EOSINOPHILS % 0.5 % (0.0-7.0); HEMATOCRIT 27.2 % (37.0-47.0); HEMOGLOBIN 9.3 g/dl (12.0-16.0); LYMPHOCYTES # 1.2 10^3/ul (0.8-2.9); LYMPHOCYTES % 7.9 % (15.0-51.0); MEAN CORPUSCULAR HGB CONC 34.2 g/dl (32.0-37.0); MEAN CORPUSCULAR VOLUME 87.7 fl (82.0-101.0); MEAN PLATELET VOLUME 10.5 fl (7.4-10.4); MONOCYTE # 0.6 10^3/ul (0.3-0.9); MONOCYTES % 4.1 % (0.0-11.0); PLATELET COUNT 210 10^3/UL (140-415); RED CELL DISTRIBUTION WIDTH 14.5 % (11.5-14.5); WHITE BLOOD COUNT 15.5 10^3/ul (4.8-10.8)
[2017-01-12 04:46] LABS: NEUTROPHILS % 77.2 % (39.0-77.0)
[2017-01-12] MEDS: FENTAnyl (DRIP) 1000 mcg/100mL 100 ML IV SCH ×2 (04:47→18:22)
[2017-01-12] MEDS: DEXTROSE 10% 1,000 ML IV SCH (04:48)
[2017-01-12 04:59] LABS: MAGNESIUM 1.9 mg/dl (1.7-2.5); PHOSPHORUS 5.3 mg/dl (2.5-4.9)
[2017-01-12 05:00] LABS: ALBUMIN 2.4 g/dl (3.3-4.9); ALBUMIN/GLOBULIN RATIO 0.88; BILIRUBIN,DIRECT 0.2 mg/dl (0.00-0.20); BILIRUBIN,INDIRECT 0.1 mg/dl (0-1.1); BILIRUBIN,TOTAL 0.3 mg/dl (0.2-1.3); CALCIUM 7.1 mg/dl (8.4-10.2); POTASSIUM 3.2 mmol/L (3.5-5.1); TOTAL PROTEIN 5.1 g/dl (6.1-8.1)
[2017-01-12 05:08] LABS: CREATININE 5.25 mg/dl (0.44-1.00)
[2017-01-12] MEDS: PIPER-TAZO 2.25 GM (PMX) 50 ML IVPB SCH (05:41)
--- NOTE | 2017-01-12 07:38 | CONS ---
Date/Time of Note Date/Time of Note DATE: 01/12/17 TIME: 07:33 Assessment/Plan Assessment/Plan Chief Complaint/Hosp Course Admitted with abdominal pain and evidence of severe pancreatitis in otherwise good health. Problems: Additional Assessment/Plan 1. Acute renal failure now requiring HD and will HD Today 2. TPN is in progress, have asked embossing clerk to make rec 3. ERCP was done yesterday, 1 stone remains, will rev with GI->other intervention? 4. Hypokalemia, will correct 5. Pancreatitis slowly resolving Consultation Date/Type/Reason Admit Date/Time Jan 04, 2017 at 19:10 Initial Consult Date 01/05/17 Type of Consultation: ID Referring Provider: YING CASTAÑEDA 24 HR Interval Summary Subjective hx not possible: other (intubated and sedated) Exam/Review of Systems Vital Signs Vitals Vital Signs Date Time Temp Pulse Resp B/P Pulse Ox O2 Delivery O2 Flow Rate FiO2 01/12/17 06:15 100 26 101/59 99 01/12/17 06:00 Mechanical Ventilator 01/12/17 05:05 30 01/12/17 03:30 98.0 Intake and Output 01/11/17 01/11/17 01/12/17 15:00 23:00 07:00 Intake Total 365 ml 1020 ml 496.5 ml Output Total 750 ml 3150 ml 600 ml Balance -385 ml -2130 ml -103.5 ml Exam Neck: No jvd Respiratory: diminished breath sounds Cardiovascular: regular rate and rhythm Gastrointestinal: soft (but grimaced with gentle palpation) Extremities: No edema (is less) Results Result Diagram: 01/12/17 0416 01/12/17 0416 Results 24 hrs Laboratory Tests Test 01/11/17 08:39 01/11/17 12:30 01/11/17 12:51 01/11/17 17:38 Bedside Glucose 88 97 112 Lab Scanned Report REFERENCE LAB Test 01/11/17 20:34 01/12/17 00:13 01/12/17 01:03 01/12/17 04:16 Bedside Glucose 120 224 H 246 H White Blood Count 15.5 #H Red Blood Count 3.10 L Hemoglobin 9.3 L Hematocrit 27.2 L Mean Corpuscular Volume 87.7 Mean Corpuscular Hemoglobin 30.0 Mean Corpuscular Hemoglobin Concent 34.2 Red Cell Distribution Width 14.5 Platelet Count 210 Mean Platelet Volume 10.5 H Neutrophils % 77.2 H Lymphocytes % 7.9 L Monocytes % 4.1 Eosinophils % 0.5 Basophils % 0.3 Nucleated Red Blood Cells % 0.0 Neutrophils # 12.0 H Lymphocytes # 1.2 Monocytes # 0.6 Eosinophils # 0.1 Basophils # 0.1 Nucleated Red Blood Cells # 0.0 Sodium Level 131 L Potassium Level 3.2 L Chloride Level 98 Carbon Dioxide Level 22 Anion Gap 14 Blood Urea Nitrogen 62 H Creatinine 5.25 H Glucose Level 118 Calcium Level 7.1 L Phosphorus Level 5.3 H Magnesium Level 1.9 Total Bilirubin 0.3 Direct Bilirubin 0.20 # Indirect Bilirubin 0.1 Aspartate Amino Transf (AST/SGOT) 21 Alanine Aminotransferase (ALT/SGPT) 42 Alkaline Phosphatase 198 H Total Protein 5.1 L Albumin 2.4 L Globulin 2.70 Albumin/Globulin Ratio 0.88 Test 01/12/17 04:34 Bedside Glucose 104 Medications Medications Current Medications Ondansetron HCl (Zofran Inj) 4 mg Q6H PRN IV NAUSEA AND/OR VOMITING; Start 01/04 at 19:30 Acetaminophen/ Hydrocodone Bitart ([place] (5/325)) 1 tab Q6H PRN PO MODERATE PAIN LEVEL 4-6; Start 01/04/17 at 19:30 Morphine Sulfate (morphine) 2 mg Q4H PRN IV SEVERE PAIN LEVEL 7-10 Last administered on 01/08/17 11:21; Admin Dose 2 MG; Start 01/04/17 at 19:30 Docusate Sodium (Colace) 100 mg Q12H PRN PO CONSTIPATION; Start 01/04/17 at 19: 30 Magnesium Hydroxide (Milk Of Mag) 30 ml DAILY PRN PO CONSTIPATION; Start at 19:30 Sodium Biphosphate/ Sodium Phosphate (Fleet Enema) 133 ml DAILY PRN [place] CONSTIPATION; Start 01/04/17 at 19:30 Heparin Sodium (Porcine) (Heparin (5000 Units/0.5 ml)) 5,000 unit Q12 SC Last administered on 01/11/17 08:33; Admin Dose 5,000 UNIT; Start 01/04/17 at 21:00; Status Future hold Lorazepam (Ativan) 0.5 mg Q6H PRN IV ANXIETY Last administered on 01/08/17 05: 58; Admin Dose 0.5 MG; Start 01/04/17 at 19:30 Hydralazine HCl (Apresoline) 10 mg Q6H PRN IV ELEVATED BLOOD PRESSURE; Start at 19:30 Nitroglycerin (Nitroglycerin (Sl Tab) 0.4 Mg) 1 tab Q5M PRN SL ANGINA; Start at 19:30 Insulin Aspart (Novolog Insulin Pen) NOVOLOG *MILD* ALGORI... Q4 SC Last administered on 01/12/17 01:06; Admin Dose 3 UNIT; Start 01/04/17 at 21:00 Phenobarbital (Luminal) 64.8 mg BID PO Last administered on 01/04/17 23:45; Admin Dose 64.8 MG; Start 01/04/17 at 21:00; Status Future Hold Topiramate (Topamax) 200 mg BID PO ; Start 01/05/17 at 21:00; Status Future Hold Miscellaneous Information 1 ea NOTE XX ; Start 01/04/17 at 19:30 Glucose (Glutose) 15 gm Q15M PRN PO DECREASED GLUCOSE; Start 01/04/17 at 19:30 Glucose (Glutose) 22.5 gm Q15M PRN PO DECREASED GLUCOSE; Start 01/04/17 at 19:30 Dextrose (D50w Syringe) 25 ml Q15M PRN IV DECREASED GLUCOSE Last administered on 01/08/17 05:36; Admin Dose 25 ML; Start 01/04/17 at 19:30 Dextrose (D50w Syringe) 50 ml Q15M PRN IV DECREASED GLUCOSE; Start 01/04/17 at 19:30 Glucagon (Glucagen) 1 mg Q15M PRN IM DECREASED GLUCOSE; Start 01/04/17 at 19:30 Glucose (Glutose) 15 gm Q15M PRN BUCCAL DECREASED GLUCOSE; Start 01/04/17 at 19: 30 Phenytoin (Dilantin Susp Cup) 100 mg TID PO Last administered on 01/04/17 23:44 ; Admin Dose 100 MG; Start 01/04/17 at 21:50; Status Future Hold Clonazepam 0.5 mg 0.5 mg Q8H PO Last administered on 01/04/17 23:45; Admin Dose 0.5 MG; Start 01/04/17 at 23:00; Status Future Hold Norepinephrine 16 mg/Dextrose 500 ml @ 1.87 mls/hr TITRATE IV Last administered on 01/07/17 00:23; Admin Dose 15 MLS/HR; Start 01/05/17 at 00:30 Fentanyl 100 ml @ 2.5 mls/hr TITRATE IV Last administered on 01/12/17 04:47; Admin Dose 7.5 MLS/HR; Start 01/05/17 at 08:39 Midazolam HCl 50 ml @ 1 mls/hr TITRATE IV Last administered on 01/12/17 01:53 ; Admin Dose 10 MLS/HR; Start 01/05/17 at 08:41 Levetiracetam 100 ml @ 400 mls/hr Q12 IVPB Last administered on 01/11/17 20: 01; Admin Dose 400 MLS/HR; Start 01/05/17 at 11:30 Vasopressin 60 unit/Dextrose 60 ml @ 1.2 mls/hr Q12H IV Last administered on 22:32; Admin Dose 2.4 MLS/HR; Start 01/05/17 at 17:30 Epinephrine 4 mg/ Sodium Chloride 250 ml @ 0 mls/hr TITRATE IV ; Start 01/05/17 at 18:30 Phenylephrine HCl/ Dextrose (Robert-Syneph/D5W) 500 ml @ 18.75 mls/ hr TITRATE IV Last administered on 01/07/17 23:21; Admin Dose 26.25 MLS/HR; Start 01/05/17 at 20:30 Acetaminophen 650 mg 650 mg Q4H PRN NGT PAIN AND OR ELEVATED TEMP Last administered on 01/06/17 04:29; Admin Dose 650 MG; Start 01/06/17 at 04:30 Piperacillin Sod/ Tazobactam Sod (Zosyn 2.25gm/ 50ml (Pmx)) 50 ml @ 100 mls/hr Q8 IVPB Last administered on 01/12/17 05:41; Admin Dose 100 MLS/HR; Start 01/06 at 14:00 Insulin Glargine (Lantus) 10 unit DAILY SC Last administered on 01/07/17 08:19 ; Admin Dose 10 UNIT; Start 01/06/17 at 14:00; Status Future Hold Epoetin Mina 17626 units 10,000 units MoWeFr@17 SC Last administered on 17:36; Admin Dose 10,000 UNITS; Start 01/09/17 at 17:00 Acetaminophen 100 ml @ 400 mls/hr Q6H PRN IVPB FEVER Last administered on 01/10 09:11; Admin Dose 400 MLS/HR; Start 01/10/17 at 06:30 Vancomycin HCl/ Sodium Chloride (Vancocin/NS) 150 ml @ 75 mls/hr Q72H IVPB Last administered on 01/10/17 17:57; Admin Dose 75 MLS/HR; Start 01/10/17 at 18 :00 IV Flush 10 ml 10 ml PRN PRN IV IV PROTOCOL; Start 01/10/17 at 11:30 Dextrose (D10w) 1,000 ml @ 50 mls/hr Q20H IV Last administered on 01/12/17 04 :48; Admin Dose 50 MLS/HR; Start 01/10/17 at 14:00 Amiodarone HCl 200 mg 200 mg BID GTB Last administered on 01/11/17 21:32; Admin Dose 200 MG; Start 01/11/17 at 12:00 Total Parenteral Nutrition (Tpn) 1,000 ml @ 50 mls/hr Q20H IV Last administered on 01/11/17 17:39; Admin Dose 50 MLS/HR; Start 01/11/17 at 18:00 Diagnostic Test (Pha) (Accu-Chek) 1 ea Q4H XX Last administered on 01/12/17 04 :50; Admin Dose 1 EA; Start 01/11/17 at 17:00 FRANCIS JULES MD Jan 12, 2017 07:37
[2017-01-12] MEDS: LEVETIRACETAM 1000 MG (PMX) 100 ML IVPB SCH ×2 (08:59→21:03)
[2017-01-12] MEDS: POTASSIUM CHLORIDE 50 ML IVPB SCH ×2 (09:00→12:12)
[2017-01-12] MEDS: AMIODARONE 200 MG TAB GTB SCH ×2 (09:01→21:03)
[2017-01-12] MEDS: BALSAM PERU/CASTOR OIL 60 GM TUBE TOP SCH (09:09)
--- NOTE | 2017-01-12 09:40 | RADRPT ---
PROCEDURE: Chest Radiograph. CLINICAL INDICATION: Pneumonia. CHF. TECHNIQUE: Single frontal chest radiograph. COMPARISON: Chest radiograph 01/11/2017 FINDINGS: An endotracheal tube and right upper extremity PICC remain in stable and radiographically appropriat e position. There has been interval removal of a nasogastric tube. Bilateral pleural effusions are grossly stable. Bilateral patchy air space disease is grossly stable. Apparent improved aeration i s likely related to removal of overlying artifacts. The bones are intact. IMPRESSION: 1. Interval removal of nasogastric tube. 2. Otherwise grossly stable radiographic appearance of chest compared to 01/11/2017. RPTAT: KK .Jone Castillo MD, MD Date Time Electronically viewed and signed by .Jone Castillo MD, on 01/12/2017 09:39 .B/
--- NOTE | 2017-01-12 10:30 | PN ---
Date/Time of Note Date/Time of Note DATE: 01/12/17 TIME: 10:24 Assessment/Plan VTE Prophylaxis VTE Prophylaxis Intervention: heparin Lines/Catheters IV Catheter Type [facility]from [facility]): kaya Central line still needed: No Urinary Cath still in place: Yes Reason Cath still needed: other (indicate) Assessment/Plan Chief Complaint/Hosp Course Chief Complaint/Hosp Course 1. Severe shock secondary to severe Pancreatitis and/or sepsis from staph bacteremia: Continue broad-spectrum IV antibiotics Ultrasound shows no gallstones but CT abdomen shows biliary ductal dilation without gallstones Status post ERCP with removal of the stone and stent placement Patient has been weaned off pressors Continue broad-spectrum antibiotics with vancomycin and Zosyn Infectious disease doctor has been consulted Urine culture is positive for E. coli but UA does not show significant pyuria , one blood culture is positive for staph, continue broad-spectrum antibiotics 2D echo showed normal ejection fraction with no evidence of valvular vegetations 2. Acute respiratory failure, intubated, [facility], continue vent management as per pulmonology recommendation Possible CPAP trial today 3. Seizure disorder on multiple medications Continue Keppra IV No report of seizures prior to arrival, no seizures in house 4. Multiple electrolyte abnormalities Replete as needed Nephrology has been consulted 5. Transaminitis secondary to medication overdose versus shock liver versus choledocholithiasis: LFTs are trending down Hepatitis panel is negative GI consultation appreciated Monitor 6. LEONOR secondary to shock: Creatinine trending up but patient is now oliguric Nephrology consultation Hemodialysis as per nephrology Off [facility] 7. Severe pancreatitis: Likely secondary to gallstone pancreatitis versus meds , psych meds Sanitation Lead has been consulted, patient is not a candidate for MRCP at this time secondary to her condition Follow up GI recommendations, status post ERCP Prophylaxis: Heparin and PPI Problems: Subjective 24 Hr Interval Summary Free Text/Dictation Status post ERCP on 01/11/2017 and removal of common bile duct stone and stent placement Patient remains intubated with the vent setting of 450 FiO2 30% with PEEP of 5 Sed[address] Via Versed and fentanyl Has been started on TPN Exam/Review of Systems Vital Signs Vitals Vital Signs Date Time Temp Pulse Resp B/P Pulse Ox O2 Delivery O2 Flow Rate FiO2 01/12/17 10:00 125 28 118/73 98 Mechanical Ventilator 01/12/17 08:00 98.4 01/12/17 05:05 30 Intake and Output 01/11/17 01/11/17 01/12/17 14:59 22:59 06:59 Intake Total 415 ml 1040 ml 496.5 ml Output Total 750 ml 3150 ml 600 ml Balance -335 ml -2110 ml -103.5 ml Exam General: The patient is intubated and sedated HEENT: Atraumatic, normocephalic. The pupils are equal Chest: Normal Lungs: Clear to auscultation bilaterally Heart: Normal S1-S2, Regular rhythm and rate. Abdomen: Soft , nontender, nondistended , bowel sounds are present. Extremities: Normal to inspection, trace edema no cyanosis Neurologic: Opens her eyes. Responds to pain in verbal stimuli Results Result Diagram: 01/12/17 0416 01/12/17 0416 Results 24 hrs Laboratory Tests Test 01/11/17 12:30 01/11/17 12:51 01/11/17 17:38 01/11/17 20:34 Lab Scanned Report REFERENCE LAB Bedside Glucose 97 112 120 Test 01/12/17 00:13 01/12/17 01:03 01/12/17 04:16 01/12/17 04:34 Bedside Glucose 224 H 246 H 104 White Blood Count 15.5 #H Red Blood Count 3.10 L Hemoglobin 9.3 L Hematocrit 27.2 L Mean Corpuscular Volume 87.7 Mean Corpuscular Hemoglobin 30.0 Mean Corpuscular Hemoglobin Concent 34.2 Red Cell Distribution Width 14.5 Platelet Count 210 Mean Platelet Volume 10.5 H Neutrophils % 77.2 H Lymphocytes % 7.9 L Monocytes % 4.1 Eosinophils % 0.5 Basophils % 0.3 Nucleated Red Blood Cells % 0.0 Neutrophils # 12.0 H Lymphocytes # 1.2 Monocytes # 0.6 Eosinophils # 0.1 Basophils # 0.1 Nucleated Red Blood Cells # 0.0 Sodium Level 131 L Potassium Level 3.2 L Chloride Level 98 Carbon Dioxide Level 22 Anion Gap 14 Blood Urea Nitrogen 62 H Creatinine 5.25 H Glucose Level 118 Calcium Level 7.1 L Phosphorus Level 5.3 H Magnesium Level 1.9 Total Bilirubin 0.3 Direct Bilirubin 0.20 # Indirect Bilirubin 0.1 Aspartate Amino Transf (AST/SGOT) 21 Alanine Aminotransferase (ALT/SGPT) 42 Alkaline Phosphatase 198 H Total Protein 5.1 L Albumin 2.4 L Globulin 2.70 Albumin/Globulin Ratio 0.88 Test 01/12/17 09:06 Bedside Glucose 132 Medications Medications Current Medications Ondansetron HCl (Zofran Inj) 4 mg Q6H PRN IV NAUSEA AND/OR VOMITING; Start 01/04 at 19:30 Acetaminophen/ Hydrocodone Bitart ([place] (5/325)) 1 tab Q6H PRN PO MODERATE PAIN LEVEL 4-6; Start 01/04/17 at 19:30 Morphine Sulfate (morphine) 2 mg Q4H PRN IV SEVERE PAIN LEVEL 7-10 Last administered on 01/08/17 11:21; Admin Dose 2 MG; Start 01/04/17 at 19:30 Docusate Sodium (Colace) 100 mg Q12H PRN PO CONSTIPATION; Start 01/04/17 at 19: 30 Magnesium Hydroxide (Milk Of Mag) 30 ml DAILY PRN PO CONSTIPATION; Start at 19:30 Sodium Biphosphate/ Sodium Phosphate (Fleet Enema) 133 ml DAILY PRN [place] CONSTIPATION; Start 01/04/17 at 19:30 Heparin Sodium (Porcine) (Heparin (5000 Units/0.5 ml)) 5,000 unit Q12 SC Last administered on 01/11/17 08:33; Admin Dose 5,000 UNIT; Start 01/04/17 at 21:00; Status Future hold Lorazepam (Ativan) 0.5 mg Q6H PRN IV ANXIETY Last administered on 01/08/17 05: 58; Admin Dose 0.5 MG; Start 01/04/17 at 19:30 Hydralazine HCl (Apresoline) 10 mg Q6H PRN IV ELEVATED BLOOD PRESSURE; Start at 19:30 Nitroglycerin (Nitroglycerin (Sl Tab) 0.4 Mg) 1 tab Q5M PRN SL ANGINA; Start at 19:30 Insulin Aspart (Novolog Insulin Pen) NOVOLOG *MILD* ALGORI... Q4 SC Last administered on 01/12/17 01:06; Admin Dose 3 UNIT; Start 01/04/17 at 21:00 Phenobarbital (Luminal) 64.8 mg BID PO Last administered on 01/04/17 23:45; Admin Dose 64.8 MG; Start 01/04/17 at 21:00; Status Future Hold Topiramate (Topamax) 200 mg BID PO ; Start 01/05/17 at 21:00; Status Future Hold Miscellaneous Information 1 ea NOTE XX ; Start 01/04/17 at 19:30 Glucose (Glutose) 15 gm Q15M PRN PO DECREASED GLUCOSE; Start 01/04/17 at 19:30 Glucose (Glutose) 22.5 gm Q15M PRN PO DECREASED GLUCOSE; Start 01/04/17 at 19:30 Dextrose (D50w Syringe) 25 ml Q15M PRN IV DECREASED GLUCOSE Last administered on 01/08/17 05:36; Admin Dose 25 ML; Start 01/04/17 at 19:30 Dextrose (D50w Syringe) 50 ml Q15M PRN IV DECREASED GLUCOSE; Start 01/04/17 at 19:30 Glucagon (Glucagen) 1 mg Q15M PRN IM DECREASED GLUCOSE; Start 01/04/17 at 19:30 Glucose (Glutose) 15 gm Q15M PRN BUCCAL DECREASED GLUCOSE; Start 01/04/17 at 19: 30 Phenytoin (Dilantin Susp Cup) 100 mg TID PO Last administered on 01/04/17 23:44 ; Admin Dose 100 MG; Start 01/04/17 at 21:50; Status Future Hold Clonazepam 0.5 mg 0.5 mg Q8H PO Last administered on 01/04/17 23:45; Admin Dose 0.5 MG; Start 01/04/17 at 23:00; Status Future Hold Norepinephrine 16 mg/Dextrose 500 ml @ 1.87 mls/hr TITRATE IV Last administered on 01/07/17 00:23; Admin Dose 15 MLS/HR; Start 01/05/17 at 00:30 Fentanyl 100 ml @ 2.5 mls/hr TITRATE IV Last administered on 01/12/17 04:47; Admin Dose 7.5 MLS/HR; Start 01/05/17 at 08:39 Midazolam HCl 50 ml @ 1 mls/hr TITRATE IV Last administered on 01/12/17 01:53 ; Admin Dose 10 MLS/HR; Start 01/05/17 at 08:41 Levetiracetam 100 ml @ 400 mls/hr Q12 IVPB Last administered on 01/12/17 08: 59; Admin Dose 400 MLS/HR; Start 01/05/17 at 11:30 Vasopressin 60 unit/Dextrose 60 ml @ 1.2 mls/hr Q12H IV Last administered on 22:32; Admin Dose 2.4 MLS/HR; Start 01/05/17 at 17:30 Epinephrine 4 mg/ Sodium Chloride 250 ml @ 0 mls/hr TITRATE IV ; Start 01/05/17 at 18:30 Phenylephrine HCl/ Dextrose (Robert-Syneph/D5W) 500 ml @ 18.75 mls/ hr TITRATE IV Last administered on 01/07/17 23:21; Admin Dose 26.25 MLS/HR; Start 01/05/17 at 20:30 Acetaminophen 650 mg 650 mg Q4H PRN NGT PAIN AND OR ELEVATED TEMP Last administered on 01/06/17 04:29; Admin Dose 650 MG; Start 01/06/17 at 04:30 Piperacillin Sod/ Tazobactam Sod (Zosyn 2.25gm/ 50ml (Pmx)) 50 ml @ 100 mls/hr Q8 IVPB Last administered on 01/12/17 05:41; Admin Dose 100 MLS/HR; Start 01/06 at 14:00 Insulin Glargine (Lantus) 10 unit DAILY SC Last administered on 01/07/17 08:19 ; Admin Dose 10 UNIT; Start 01/06/17 at 14:00; Status Future Hold Epoetin [place] 75450 units 10,000 units MoWeFr@17 SC Last administered on 17:36; Admin Dose 10,000 UNITS; Start 01/09/17 at 17:00 Acetaminophen 100 ml @ 400 mls/hr Q6H PRN IVPB FEVER Last administered on 01/10 09:11; Admin Dose 400 MLS/HR; Start 01/10/17 at 06:30 Vancomycin HCl/ Sodium Chloride (Vancocin/NS) 150 ml @ 75 mls/hr Q72H IVPB Last administered on 01/10/17 17:57; Admin Dose 75 MLS/HR; Start 01/10/17 at 18 :00 IV Flush (NS 10 ml) 10 ml PRN PRN IV IV PROTOCOL; Start 01/10/17 at 11:30 Amiodarone HCl 200 mg 200 mg BID GTB Last administered on 01/12/17 09:01; Admin Dose 200 MG; Start 01/11/17 at 12:00 Total Parenteral Nutrition (Tpn) 1,000 ml @ 50 mls/hr Q20H IV Last administered on 01/11/17 17:39; Admin Dose 50 MLS/HR; Start 01/11/17 at 18:00 Diagnostic Test (Pha) 1 ea 1 ea Q4H XX Last administered on 01/12/17 09:09; Admin Dose 1 EA; Start 01/11/17 at 17:00 Potassium Chloride (KCl 20 MEQ/50 ML SW) 50 ml @ 25 mls/hr Q2H IVPB Last administered on 01/12/17 09:00; Admin Dose 25 MLS/HR; Start 01/12/17 at 08:00; Stop 01/12/17 at 11:59 Epoetin M[place] 55441 units 10,000 units MoWeFr@17 SC ; Start 01/13/17 at 17:00 Ferric Sodium Gluconate Complex/ Sodium Chloride (Ferrlecit/NS) 110 ml @ 110 mls/hr Q24H IVPB ; Start 01/12/17 at 10:00; Stop 01/16/17 at 10:59 GAYE BARRON MD Jan 12, 2017 10:30
--- NOTE | 2017-01-12 11:02 | CONS ---
Date/Time of Note Date/Time of Note DATE: 01/12/17 TIME: 11:00 Consult Date/Type/Reason Admit Date/Time Jan 04, 2017 at 19:10 Initial Consult Date 01/05/17 Type of Consultation: Pulmonary Ordering Provider: YING CASTAÑEDA Subjective ERCP yesterday, patient stable this morning. Pending hemodialysis today. Objective Vital Signs Date Time Temp Pulse Resp B/P Pulse Ox O2 Delivery O2 Flow Rate FiO2 01/12/17 10:00 125 28 118/73 98 Mechanical Ventilator 01/12/17 08:00 98.4 01/12/17 08:00 30 Intake and Output 01/11/17 01/11/17 01/12/17 15:00 23:00 07:00 Intake Total 365 ml 1020 ml 496.5 ml Output Total 750 ml 3150 ml 600 ml Balance -385 ml -2130 ml -103.5 ml Exam GENERAL: Chronically ill-appearing elderly lady on mechanical ventilation, awake and alert follows simple commands VITAL SIGNS: per chart NECK: Supple. No JVD or lymphadenopathy. CARDIAC EXAM: S1, S2. No added sounds or murmurs. CHEST: Diminished air entry bilaterally poor effort ABDOMEN: Soft, nontender. No guarding or rebound. EXTREMITIES: No cyanosis, clubbing edema +2 NEUROLOGIC: Generalized weakness. Results/Medications Result Diagram: 01/12/17 0416 01/12/17 0416 Results 24 hrs Laboratory Tests Test 01/11/17 12:30 01/11/17 12:51 01/11/17 17:38 01/11/17 20:34 Lab Scanned Report REFERENCE LAB Bedside Glucose 97 112 120 Test 01/12/17 00:13 01/12/17 01:03 01/12/17 04:16 01/12/17 04:34 Bedside Glucose 224 H 246 H 104 White Blood Count 15.5 #H Red Blood Count 3.10 L Hemoglobin 9.3 L Hematocrit 27.2 L Mean Corpuscular Volume 87.7 Mean Corpuscular Hemoglobin 30.0 Mean Corpuscular Hemoglobin Concent 34.2 Red Cell Distribution Width 14.5 Platelet Count 210 Mean Platelet Volume 10.5 H Neutrophils % 77.2 H Lymphocytes % 7.9 L Monocytes % 4.1 Eosinophils % 0.5 Basophils % 0.3 Nucleated Red Blood Cells % 0.0 Neutrophils # 12.0 H Lymphocytes # 1.2 Monocytes # 0.6 Eosinophils # 0.1 Basophils # 0.1 Nucleated Red Blood Cells # 0.0 Sodium Level 131 L Potassium Level 3.2 L Chloride Level 98 Carbon Dioxide Level 22 Anion Gap 14 Blood Urea Nitrogen 62 H Creatinine 5.25 H Glucose Level 118 Calcium Level 7.1 L Phosphorus Level 5.3 H Magnesium Level 1.9 Total Bilirubin 0.3 Direct Bilirubin 0.20 # Indirect Bilirubin 0.1 Aspartate Amino Transf (AST/SGOT) 21 Alanine Aminotransferase (ALT/SGPT) 42 Alkaline Phosphatase 198 H Total Protein 5.1 L Albumin 2.4 L Globulin 2.70 Albumin/Globulin Ratio 0.88 Test 01/12/17 09:06 Bedside Glucose 132 Medications Current Medications Ondansetron HCl (Zofran Inj) 4 mg Q6H PRN IV NAUSEA AND/OR VOMITING; Start 01/04 at 19:30 Acetaminophen/ Hydrocodone Bitart ([place] (5/325)) 1 tab Q6H PRN PO MODERATE PAIN LEVEL 4-6; Start 01/04/17 at 19:30 Morphine Sulfate (morphine) 2 mg Q4H PRN IV SEVERE PAIN LEVEL 7-10 Last administered on 01/08/17 11:21; Admin Dose 2 MG; Start 01/04/17 at 19:30 Docusate Sodium (Colace) 100 mg Q12H PRN PO CONSTIPATION; Start 01/04/17 at 19: 30 Magnesium Hydroxide (Milk Of Mag) 30 ml DAILY PRN PO CONSTIPATION; Start at 19:30 Sodium Biphosphate/ Sodium Phosphate (Fleet Enema) 133 ml DAILY PRN [place] CONSTIPATION; Start 01/04/17 at 19:30 Heparin Sodium (Porcine) (Heparin (5000 Units/0.5 ml)) 5,000 unit Q12 SC Last administered on 01/11/17 08:33; Admin Dose 5,000 UNIT; Start 01/04/17 at 21:00; Status Future hold Lorazepam (Ativan) 0.5 mg Q6H PRN IV ANXIETY Last administered on 01/08/17 05: 58; Admin Dose 0.5 MG; Start 01/04/17 at 19:30 Hydralazine HCl (Apresoline) 10 mg Q6H PRN IV ELEVATED BLOOD PRESSURE; Start at 19:30 Nitroglycerin (Nitroglycerin (Sl Tab) 0.4 Mg) 1 tab Q5M PRN SL ANGINA; Start at 19:30 Insulin Aspart (Novolog Insulin Pen) NOVOLOG *MILD* ALGORI... Q4 SC Last administered on 01/12/17 01:06; Admin Dose 3 UNIT; Start 01/04/17 at 21:00 Phenobarbital (Luminal) 64.8 mg BID PO Last administered on 01/04/17 23:45; Admin Dose 64.8 MG; Start 01/04/17 at 21:00; Status Future Hold Topiramate (Topamax) 200 mg BID PO ; Start 01/05/17 at 21:00; Status Future Hold Miscellaneous Information 1 ea NOTE XX ; Start 01/04/17 at 19:30 Glucose (Glutose) 15 gm Q15M PRN PO DECREASED GLUCOSE; Start 01/04/17 at 19:30 Glucose (Glutose) 22.5 gm Q15M PRN PO DECREASED GLUCOSE; Start 01/04/17 at 19:30 Dextrose (D50w Syringe) 25 ml Q15M PRN IV DECREASED GLUCOSE Last administered on 01/08/17 05:36; Admin Dose 25 ML; Start 01/04/17 at 19:30 Dextrose (D50w Syringe) 50 ml Q15M PRN IV DECREASED GLUCOSE; Start 01/04/17 at 19:30 Glucagon (Glucagen) 1 mg Q15M PRN IM DECREASED GLUCOSE; Start 01/04/17 at 19:30 Glucose (Glutose) 15 gm Q15M PRN BUCCAL DECREASED GLUCOSE; Start 01/04/17 at 19: 30 Phenytoin (Dilantin Susp Cup) 100 mg TID PO Last administered on 01/04/17 23:44 ; Admin Dose 100 MG; Start 01/04/17 at 21:50; Status Future Hold Clonazepam 0.5 mg 0.5 mg Q8H PO Last administered on 01/04/17 23:45; Admin Dose 0.5 MG; Start 01/04/17 at 23:00; Status Future Hold Norepinephrine 16 mg/Dextrose 500 ml @ 1.87 mls/hr TITRATE IV Last administered on 01/07/17 00:23; Admin Dose 15 MLS/HR; Start 01/05/17 at 00:30 Fentanyl 100 ml @ 2.5 mls/hr TITRATE IV Last administered on 01/12/17 04:47; Admin Dose 7.5 MLS/HR; Start 01/05/17 at 08:39 Midazolam HCl 50 ml @ 1 mls/hr TITRATE IV Last administered on 01/12/17 01:53 ; Admin Dose 10 MLS/HR; Start 01/05/17 at 08:41 Levetiracetam 100 ml @ 400 mls/hr Q12 IVPB Last administered on 01/12/17 08: 59; Admin Dose 400 MLS/HR; Start 01/05/17 at 11:30 Vasopressin 60 unit/Dextrose 60 ml @ 1.2 mls/hr Q12H IV Last administered on 22:32; Admin Dose 2.4 MLS/HR; Start 01/05/17 at 17:30 Epinephrine 4 mg/ Sodium Chloride 250 ml @ 0 mls/hr TITRATE IV ; Start 01/05/17 at 18:30 Phenylephrine HCl/ Dextrose (Robert-Syneph/D5W) 500 ml @ 18.75 mls/ hr TITRATE IV Last administered on 01/07/17 23:21; Admin Dose 26.25 MLS/HR; Start 01/05/17 at 20:30 Acetaminophen 650 mg 650 mg Q4H PRN NGT PAIN AND OR ELEVATED TEMP Last administered on 01/06/17 04:29; Admin Dose 650 MG; Start 01/06/17 at 04:30 Piperacillin Sod/ Tazobactam Sod (Zosyn 2.25gm/ 50ml (Pmx)) 50 ml @ 100 mls/hr Q8 IVPB Last administered on 01/12/17 05:41; Admin Dose 100 MLS/HR; Start 01/06 at 14:00 Insulin Glargine (Lantus) 10 unit DAILY SC Last administered on 01/07/17 08:19 ; Admin Dose 10 UNIT; Start 01/06/17 at 14:00; Status Future Hold Epoetin Mina 22358 units 10,000 units MoWeFr@17 SC Last administered on 17:36; Admin Dose 10,000 UNITS; Start 01/09/17 at 17:00 Acetaminophen 100 ml @ 400 mls/hr Q6H PRN IVPB FEVER Last administered on 01/10 09:11; Admin Dose 400 MLS/HR; Start 01/10/17 at 06:30 Vancomycin HCl/ Sodium Chloride (Vancocin/NS) 150 ml @ 75 mls/hr Q72H IVPB Last administered on 01/10/17 17:57; Admin Dose 75 MLS/HR; Start 01/10/17 at 18 :00 IV Flush (NS 10 ml) 10 ml PRN PRN IV IV PROTOCOL; Start 01/10/17 at 11:30 Amiodarone HCl 200 mg 200 mg BID GTB Last administered on 01/12/17 09:01; Admin Dose 200 MG; Start 01/11/17 at 12:00 Total Parenteral Nutrition (Tpn) 1,000 ml @ 50 mls/hr Q20H IV Last administered on 01/11/17 17:39; Admin Dose 50 MLS/HR; Start 01/11/17 at 18:00 Diagnostic Test (Pha) 1 ea 1 ea Q4H XX Last administered on 01/12/17 09:09; Admin Dose 1 EA; Start 01/11/17 at 17:00 Potassium Chloride (KCl 20 MEQ/50 ML SW) 50 ml @ 25 mls/hr Q2H IVPB Last administered on 01/12/17 09:00; Admin Dose 25 MLS/HR; Start 01/12/17 at 08:00; Stop 01/12/17 at 11:59 Epoetin Mina 67354 units 10,000 units MoWeFr@17 SC ; Start 01/13/17 at 17:00 Ferric Sodium Gluconate Complex/ Sodium Chloride (Ferrlecit/NS) 110 ml @ 110 mls/hr Q24H IVPB ; Start 01/12/17 at 10:00; Stop 01/16/17 at 10:59 Pantoprazole (Protonix Iv) 40 mg DAILY@06 IV ; Start 01/13/17 at 06:00 Assessment/Plan Chief Complaint/Hosp Course IMP: 1. Severe gallstone pancreatitis with septic shock, now slowly improving. 2. Metabolic acidosis secondary to above and ARF 3. Renal failure likely ATN now requiring hemodialysis 4. Hypoxemic respiratory failure secondary to above 5. History of seizure disorder RECS: 1. Hemodialysis today per nephrology 2. Continue mechanical ventilation, CPAP weaning trial 3. Broad-spectrum antibiotic coverage 4. Nasogastric tube to suction 5. Advance diet per GI 6. Continue DVT and GI prophylaxis 35 min cc time Problems: AMPARO VALERIO MD, FCCP Jan 12, 2017 11:02
--- NOTE | 2017-01-12 11:12 | PN ---
Date/Time of Note Date/Time of Note DATE: 01/12/17 TIME: 11:10 Assessment/Plan Lines/Catheters IV Catheter Type (from Nrsg): kaya Matias in Place (from Nrsg): Yes Assessment/Plan Chief Complaint/Hosp Course This is a 61-year-old female who was admitted because of pneumonia was found for progressively worsening renal failure. SP HD cath placement will continue dialysis per nephrology Problems: Subjective 24 Hr Interval Summary Constitutional: improved Pain Control: mild Exam/Review of Systems Vital Signs Vitals Vital Signs Date Time Temp Pulse Resp B/P Pulse Ox O2 Delivery O2 Flow Rate FiO2 01/12/17 10:00 125 28 118/73 98 Mechanical Ventilator 01/12/17 08:00 98.4 01/12/17 08:00 30 Intake and Output 01/11/17 01/11/17 01/12/17 15:00 23:00 07:00 Intake Total 365 ml 1020 ml 496.5 ml Output Total 750 ml 3150 ml 600 ml Balance -385 ml -2130 ml -103.5 ml Exam ENMT: mucosa pink and moist, nl external ears & nose, nl lips & teeth, nl nasal mucosa & septum Neck: non-tender, supple Respiratory: clear to auscultation, normal air movement Cardiovascular: nl pulses, regular rate and rhythm Gastrointestinal: nl liver, spleen, non-tender, soft Results Result Diagram: 01/12/17 0416 01/12/17 0416 SAM GUTIERREZ MD Jan 12, 2017 11:12
[2017-01-12] MEDS: morphine 2 MG INJ IV PRN (11:19)
[2017-01-12] MEDS: SOD FERRIC GLUC COMPLX 125 MG in SOD CHLORIDE 0.9% 100 ML IVPB SCH (11:26)
--- NOTE | 2017-01-12 12:04 | CONS ---
Date/Time of Note Date/Time of Note DATE: 01/12/17 TIME: 12:02 Assessment/Plan Assessment/Plan Chief Complaint/Hosp Course No acute changes patient is off sedation opens eyes looks comfortable on vent Temperature 98.4 pulse 125 respirations 28 blood pressure 118/73 saturation 98% on 30 FiO2 WBC 15.5 H&H 9.3 and 27.2 platelets 210 neutrophils 77.2 BN 62 creatinine 5.25 Indwelling's: Endotracheal tube, right upper extremity PICC line right femoral hemodialysis catheter placed on January 11, 2017 Antibiotics: Vancomycin Zosyn day #7 Microbiology: Blood culture on admission grew coag negative staph species urine culture grew E. coli repeat blood and urine culture had been negative Physical examination: Chronically ill-appearing elderly woman who looks comfortable on vent. Head atraumatic normocephalic, sclera nonicteric. Neck is supple, trachea midline. Heart: S1, S2, tachycardic Abdomen soft bowel tones present. Extremities with trace edema, no cyanosis Assessment: 1. Sepsis, status post shock 2. Severe, acute pancreatitis 3. Choledocholithiasis, status post ERCP last night with removal of the stone and stent placement 4. Coag negative staph bacteremia, likely contaminant 5. Acute respiratory failure 6. Acute renal failure requiring hemodialysis 7. Status post urinary tract infection Plan: Patient remains hemodynamically stable still with persistent leukocytosis were going to change Zosyn to meropenem, continue vancomycin for now, follow recommendations of specialists. Discussed with RN Problems: Consultation Date/Type/Reason Admit Date/Time Jan 04, 2017 at 19:10 Initial Consult Date 01/11/17 Type of Consultation: ID Referring Provider: YING CASTAÑEDA Exam/Review of Systems Vital Signs Vitals Vital Signs Date Time Temp Pulse Resp B/P Pulse Ox O2 Delivery O2 Flow Rate FiO2 01/12/17 11:30 131 32 131/77 97 01/12/17 11:00 Mechanical Ventilator 01/12/17 10:59 30 01/12/17 08:00 98.4 Intake and Output 01/11/17 01/11/17 01/12/17 15:00 23:00 07:00 Intake Total 365 ml 1020 ml 612.0 ml Output Total 750 ml 3150 ml 600 ml Balance -385 ml -2130 ml 12.0 ml Results Result Diagram: 01/12/17 0416 01/12/17 0416 Results 24 hrs Laboratory Tests Test 01/11/17 12:30 01/11/17 12:51 01/11/17 17:38 01/11/17 20:34 Lab Scanned Report REFERENCE LAB Bedside Glucose 97 112 120 Test 01/12/17 00:13 01/12/17 01:03 01/12/17 04:16 01/12/17 04:34 Bedside Glucose 224 H 246 H 104 White Blood Count 15.5 #H Red Blood Count 3.10 L Hemoglobin 9.3 L Hematocrit 27.2 L Mean Corpuscular Volume 87.7 Mean Corpuscular Hemoglobin 30.0 Mean Corpuscular Hemoglobin Concent 34.2 Red Cell Distribution Width 14.5 Platelet Count 210 Mean Platelet Volume 10.5 H Neutrophils % 77.2 H Lymphocytes % 7.9 L Monocytes % 4.1 Eosinophils % 0.5 Basophils % 0.3 Nucleated Red Blood Cells % 0.0 Neutrophils # 12.0 H Lymphocytes # 1.2 Monocytes # 0.6 Eosinophils # 0.1 Basophils # 0.1 Nucleated Red Blood Cells # 0.0 Sodium Level 131 L Potassium Level 3.2 L Chloride Level 98 Carbon Dioxide Level 22 Anion Gap 14 Blood Urea Nitrogen 62 H Creatinine 5.25 H Glucose Level 118 Calcium Level 7.1 L Phosphorus Level 5.3 H Magnesium Level 1.9 Total Bilirubin 0.3 Direct Bilirubin 0.20 # Indirect Bilirubin 0.1 Aspartate Amino Transf (AST/SGOT) 21 Alanine Aminotransferase (ALT/SGPT) 42 Alkaline Phosphatase 198 H Total Protein 5.1 L Albumin 2.4 L Globulin 2.70 Albumin/Globulin Ratio 0.88 Test 01/12/17 09:06 Bedside Glucose 132 Medications Medications Current Medications Ondansetron HCl (Zofran Inj) 4 mg Q6H PRN IV NAUSEA AND/OR VOMITING; Start 01/04 at 19:30 Acetaminophen/ Hydrocodone Bitart ([place] (5/325)) 1 tab Q6H PRN PO MODERATE PAIN LEVEL 4-6; Start 01/04/17 at 19:30 Morphine Sulfate (morphine) 2 mg Q4H PRN IV SEVERE PAIN LEVEL 7-10 Last administered on 01/12/17t 11:19; Admin Dose 2 MG; Start 01/04/17 at 19:30 Docusate Sodium (Colace) 100 mg Q12H PRN PO CONSTIPATION; Start 01/04/17 at 19: 30 Magnesium Hydroxide (Milk Of Mag) 30 ml DAILY PRN PO CONSTIPATION; Start at 19:30 Sodium Biphosphate/ Sodium Phosphate (Fleet Enema) 133 ml DAILY PRN [place] CONSTIPATION; Start 01/04/17 at 19:30 Heparin Sodium (Porcine) (Heparin (5000 Units/0.5 ml)) 5,000 unit Q12 SC Last administered on 01/11/17 08:33; Admin Dose 5,000 UNIT; Start 01/04/17 at 21:00; Status Future hold Lorazepam (Ativan) 0.5 mg Q6H PRN IV ANXIETY Last administered on 01/08/17 05: 58; Admin Dose 0.5 MG; Start 01/04/17 at 19:30 Hydralazine HCl (Apresoline) 10 mg Q6H PRN IV ELEVATED BLOOD PRESSURE; Start at 19:30 Nitroglycerin (Nitroglycerin (Sl Tab) 0.4 Mg) 1 tab Q5M PRN SL ANGINA; Start at 19:30 Insulin Aspart (Novolog Insulin Pen) NOVOLOG *MILD* ALGORI... Q4 SC Last administered on 01/12/17 01:06; Admin Dose 3 UNIT; Start 01/04/17 at 21:00 Phenobarbital (Luminal) 64.8 mg BID PO Last administered on 01/04/17 23:45; Admin Dose 64.8 MG; Start 01/04/17 at 21:00; Status Future Hold Topiramate (Topamax) 200 mg BID PO ; Start 01/05/17 at 21:00; Status Future Hold Miscellaneous Information 1 ea NOTE XX ; Start 01/04/17 at 19:30 Glucose (Glutose) 15 gm Q15M PRN PO DECREASED GLUCOSE; Start 01/04/17 at 19:30 Glucose (Glutose) 22.5 gm Q15M PRN PO DECREASED GLUCOSE; Start 01/04/17 at 19:30 Dextrose (D50w Syringe) 25 ml Q15M PRN IV DECREASED GLUCOSE Last administered on 01/08/17 05:36; Admin Dose 25 ML; Start 01/04/17 at 19:30 Dextrose (D50w Syringe) 50 ml Q15M PRN IV DECREASED GLUCOSE; Start 01/04/17 at 19:30 Glucagon (Glucagen) 1 mg Q15M PRN IM DECREASED GLUCOSE; Start 01/04/17 at 19:30 Glucose (Glutose) 15 gm Q15M PRN BUCCAL DECREASED GLUCOSE; Start 01/04/17 at 19: 30 Phenytoin (Dilantin Susp Cup) 100 mg TID PO Last administered on 01/04/17 23:44 ; Admin Dose 100 MG; Start 01/04/17 at 21:50; Status Future Hold Clonazepam 0.5 mg 0.5 mg Q8H PO Last administered on 01/04/17 23:45; Admin Dose 0.5 MG; Start 01/04/17 at 23:00; Status Future Hold Norepinephrine 16 mg/Dextrose 500 ml @ 1.87 mls/hr TITRATE IV Last administered on 01/07/17 00:23; Admin Dose 15 MLS/HR; Start 01/05/17 at 00:30 Fentanyl 100 ml @ 2.5 mls/hr TITRATE IV Last administered on 01/12/17 04:47; Admin Dose 7.5 MLS/HR; Start 01/05/17 at 08:39 Midazolam HCl 50 ml @ 1 mls/hr TITRATE IV Last administered on 01/12/17 01:53 ; Admin Dose 10 MLS/HR; Start 01/05/17 at 08:41 Levetiracetam 100 ml @ 400 mls/hr Q12 IVPB Last administered on 01/12/17 08: 59; Admin Dose 400 MLS/HR; Start 01/05/17 at 11:30 Vasopressin 60 unit/Dextrose 60 ml @ 1.2 mls/hr Q12H IV Last administered on 22:32; Admin Dose 2.4 MLS/HR; Start 01/05/17 at 17:30 Epinephrine 4 mg/ Sodium Chloride 250 ml @ 0 mls/hr TITRATE IV ; Start 01/05/17 at 18:30 Phenylephrine HCl/ Dextrose (Robert-Syneph/D5W) 500 ml @ 18.75 mls/ hr TITRATE IV Last administered on 01/07/17 23:21; Admin Dose 26.25 MLS/HR; Start 01/05/17 at 20:30 Acetaminophen 650 mg 650 mg Q4H PRN NGT PAIN AND OR ELEVATED TEMP Last administered on 01/06/17 04:29; Admin Dose 650 MG; Start 01/06/17 at 04:30 Piperacillin Sod/ Tazobactam Sod (Zosyn 2.25gm/ 50ml (Pmx)) 50 ml @ 100 mls/hr Q8 IVPB Last administered on 01/12/17 05:41; Admin Dose 100 MLS/HR; Start 01/06 at 14:00 Insulin Glargine (Lantus) 10 unit DAILY SC Last administered on 01/07/17 08:19 ; Admin Dose 10 UNIT; Start 01/06/17 at 14:00; Status Future Hold Epoetin Mina 77358 units 10,000 units MoWeFr@17 SC Last administered on 17:36; Admin Dose 10,000 UNITS; Start 01/09/17 at 17:00 Acetaminophen 100 ml @ 400 mls/hr Q6H PRN IVPB FEVER Last administered on 01/10 09:11; Admin Dose 400 MLS/HR; Start 01/10/17 at 06:30 Vancomycin HCl/ Sodium Chloride (Vancocin/NS) 150 ml @ 75 mls/hr Q72H IVPB Last administered on 01/10/17 17:57; Admin Dose 75 MLS/HR; Start 01/10/17 at 18 :00 IV Flush (NS 10 ml) 10 ml PRN PRN IV IV PROTOCOL; Start 01/10/17 at 11:30 Amiodarone HCl 200 mg 200 mg BID GTB Last administered on 01/12/17 09:01; Admin Dose 200 MG; Start 01/11/17 at 12:00 Total Parenteral Nutrition (Tpn) 1,000 ml @ 50 mls/hr Q20H IV Last administered on 01/11/17 17:39; Admin Dose 50 MLS/HR; Start 01/11/17 at 18:00 Diagnostic Test (Pha) (Accu-Chek) 1 ea Q4H XX Last administered on 01/12/17 09 :09; Admin Dose 1 EA; Start 01/11/17 at 17:00 Epoetin Mina 18354 units 10,000 units MoWeFr@17 SC ; Start 01/13/17 at 17:00 Ferric Sodium Gluconate Complex/ Sodium Chloride (Ferrlecit/NS) 110 ml @ 110 mls/hr Q24H IVPB Last administered on 01/12/17t 11:26; Admin Dose 110 MLS/HR; Start 01/12/17 at 10:00; Stop 01/16/17 at 10:59 Pantoprazole (Protonix Iv) 40 mg DAILY@06 IV ; Start 01/13/17 at 06:00 MIKE TURCIOS NP Jan 12, 2017 12:03
[2017-01-12] MEDS ORDERED: ALBUMIN HUMAN 25% 100 ML IV ONE (15:00)
--- NOTE | 2017-01-12 15:28 | CONS ---
Date/Time of Note Date/Time of Note DATE: 01/12/17 TIME: 15:25 Assessment/Plan Assessment/Plan Additional Assessment/Plan Paroxysmal atrial fibrillation Severe sepsis Acute pancreatitis status post ERCP Preserved ejection fraction Respiratory failure, vent dependent Acute kidney injury Seizure disorder Psychiatric disorder Acute blood loss anemia -Currently remains in sinus rhythm. Fluid management and diuretics as per our nephrology colleagues. To decrease chance of arrhythmias, maintain potassium above 4.0 and magnesium above 2.0. Consultation Date/Type/Reason Admit Date/Time Jan 04, 2017 at 19:10 Initial Consult Date 01/05/17 Type of Consultation: cv Referring Provider: YING CASTAÑEDA 24 HR Interval Summary Free Text/Dictation Patient seen and examined, episodes of sinus tachycardia with decreased sedation Exam/Review of Systems Vital Signs Vitals Vital Signs Date Time Temp Pulse Resp B/P Pulse Ox O2 Delivery O2 Flow Rate FiO2 01/12/17 15:00 142 29 113/72 96 Mechanical Ventilator 01/12/17 12:00 98.4 01/12/17 10:59 30 Intake and Output 01/11/17 01/11/17 01/12/17 15:00 23:00 07:00 Intake Total 365 ml 1020 ml 612.0 ml Output Total 750 ml 3150 ml 690 ml Balance -385 ml -2130 ml -78.0 ml Exam Sedated and intubated, no apparent distress Head: normocephalic ENMT: intubated Respiratory: other (Coarse breath sounds bilaterally, no wheezing) Cardiovascular: other (S1-S2 heard), regular rate and rhythm (Tachycardia) Gastrointestinal: bowel sounds, other (No grimacing with palpation), soft Extremities: edema Results Result Diagram: 01/12/17 0416 01/12/17 0416 Results 24 hrs Laboratory Tests Test 01/11/17 17:38 01/11/17 20:34 01/12/17 00:13 01/12/17 01:03 Bedside Glucose 112 120 224 H 246 H Test 01/12/17 04:16 01/12/17 04:34 01/12/17 09:06 01/12/17 13:19 White Blood Count 15.5 #H Red Blood Count 3.10 L Hemoglobin 9.3 L Hematocrit 27.2 L Mean Corpuscular Volume 87.7 Mean Corpuscular Hemoglobin 30.0 Mean Corpuscular Hemoglobin Concent 34.2 Red Cell Distribution Width 14.5 Platelet Count 210 Mean Platelet Volume 10.5 H Neutrophils % 77.2 H Lymphocytes % 7.9 L Monocytes % 4.1 Eosinophils % 0.5 Basophils % 0.3 Nucleated Red Blood Cells % 0.0 Neutrophils # 12.0 H Lymphocytes # 1.2 Monocytes # 0.6 Eosinophils # 0.1 Basophils # 0.1 Nucleated Red Blood Cells # 0.0 Sodium Level 131 L Potassium Level 3.2 L Chloride Level 98 Carbon Dioxide Level 22 Anion Gap 14 Blood Urea Nitrogen 62 H Creatinine 5.25 H Glucose Level 118 Calcium Level 7.1 L Phosphorus Level 5.3 H Magnesium Level 1.9 Total Bilirubin 0.3 Direct Bilirubin 0.20 # Indirect Bilirubin 0.1 Aspartate Amino Transf (AST/SGOT) 21 Alanine Aminotransferase (ALT/SGPT) 42 Alkaline Phosphatase 198 H Total Protein 5.1 L Albumin 2.4 L Globulin 2.70 Albumin/Globulin Ratio 0.88 Bedside Glucose 104 132 163 Medications Medications Current Medications Ondansetron HCl (Zofran Inj) 4 mg Q6H PRN IV NAUSEA AND/OR VOMITING; Start 01/04 at 19:30 Acetaminophen/ Hydrocodone Bitart ([place] (5/325)) 1 tab Q6H PRN PO MODERATE PAIN LEVEL 4-6; Start 01/04/17 at 19:30 Morphine Sulfate (morphine) 2 mg Q4H PRN IV SEVERE PAIN LEVEL 7-10 Last administered on 01/12/17 11:19; Admin Dose 2 MG; Start 01/04/17 at 19:30 Docusate Sodium (Colace) 100 mg Q12H PRN PO CONSTIPATION; Start 01/04/17 at 19: 30 Magnesium Hydroxide (Milk Of Mag) 30 ml DAILY PRN PO CONSTIPATION; Start at 19:30 Sodium Biphosphate/ Sodium Phosphate (Fleet Enema) 133 ml DAILY PRN [place] CONSTIPATION; Start 01/04/17 at 19:30 Heparin Sodium (Porcine) (Heparin (5000 Units/0.5 ml)) 5,000 unit Q12 SC Last administered on 01/11/17 08:33; Admin Dose 5,000 UNIT; Start 01/04/17 at 21:00; Status Future hold Lorazepam (Ativan) 0.5 mg Q6H PRN IV ANXIETY Last administered on 01/08/17 05: 58; Admin Dose 0.5 MG; Start 01/04/17 at 19:30 Hydralazine HCl (Apresoline) 10 mg Q6H PRN IV ELEVATED BLOOD PRESSURE; Start at 19:30 Nitroglycerin (Nitroglycerin (Sl Tab) 0.4 Mg) 1 tab Q5M PRN SL ANGINA; Start at 19:30 Insulin Aspart (Novolog Insulin Pen) NOVOLOG *MILD* ALGORI... Q4 SC Last administered on 01/12/17 13:25; Admin Dose 1 UNIT; Start 01/04/17 at 21:00 Phenobarbital (Luminal) 64.8 mg BID PO Last administered on 01/04/17 23:45; Admin Dose 64.8 MG; Start 01/04/17 at 21:00; Status Future Hold Topiramate (Topamax) 200 mg BID PO ; Start 01/05/17 at 21:00; Status Future Hold Miscellaneous Information 1 ea NOTE XX ; Start 01/04/17 at 19:30 Glucose (Glutose) 15 gm Q15M PRN PO DECREASED GLUCOSE; Start 01/04/17 at 19:30 Glucose (Glutose) 22.5 gm Q15M PRN PO DECREASED GLUCOSE; Start 01/04/17 at 19:30 Dextrose (D50w Syringe) 25 ml Q15M PRN IV DECREASED GLUCOSE Last administered on 01/08/17 05:36; Admin Dose 25 ML; Start 01/04/17 at 19:30 Dextrose (D50w Syringe) 50 ml Q15M PRN IV DECREASED GLUCOSE; Start 01/04/17 at 19:30 Glucagon (Glucagen) 1 mg Q15M PRN IM DECREASED GLUCOSE; Start 01/04/17 at 19:30 Glucose (Glutose) 15 gm Q15M PRN BUCCAL DECREASED GLUCOSE; Start 01/04/17 at 19: 30 Phenytoin (Dilantin Susp Cup) 100 mg TID PO Last administered on 01/04/17 23:44 ; Admin Dose 100 MG; Start 01/04/17 at 21:50; Status Future Hold Clonazepam 0.5 mg 0.5 mg Q8H PO Last administered on 01/04/17 23:45; Admin Dose 0.5 MG; Start 01/04/17 at 23:00; Status Future Hold Norepinephrine 16 mg/Dextrose 500 ml @ 1.87 mls/hr TITRATE IV Last administered on 01/07/17 00:23; Admin Dose 15 MLS/HR; Start 01/05/17 at 00:30 Fentanyl 100 ml @ 2.5 mls/hr TITRATE IV Last administered on 01/12/17 04:47; Admin Dose 7.5 MLS/HR; Start 01/05/17 at 08:39 Midazolam HCl 50 ml @ 1 mls/hr TITRATE IV Last administered on 01/12/17 14:31 ; Admin Dose 6 MLS/HR; Start 01/05/17 at 08:41 Levetiracetam 100 ml @ 400 mls/hr Q12 IVPB Last administered on 01/12/17 08: 59; Admin Dose 400 MLS/HR; Start 01/05/17 at 11:30 Vasopressin 60 unit/Dextrose 60 ml @ 1.2 mls/hr Q12H IV Last administered on 22:32; Admin Dose 2.4 MLS/HR; Start 01/05/17 at 17:30 Epinephrine 4 mg/ Sodium Chloride 250 ml @ 0 mls/hr TITRATE IV ; Start 01/05/17 at 18:30 Phenylephrine HCl/ Dextrose (Robert-Syneph/D5W) 500 ml @ 18.75 mls/ hr TITRATE IV Last administered on 01/07/17 23:21; Admin Dose 26.25 MLS/HR; Start 01/05/17 at 20:30 Acetaminophen (Tylenol Liquid) 650 mg Q4H PRN NGT PAIN AND OR ELEVATED TEMP Last administered on 01/06/17 04:29; Admin Dose 650 MG; Start 01/06/17 at 04:30 Insulin Glargine (Lantus) 10 unit DAILY SC Last administered on 01/07/17 08:19 ; Admin Dose 10 UNIT; Start 01/06/17 at 14:00; Status Future Hold Epoetin Mina 54963 units 10,000 units MoWeFr@17 SC Last administered on 17:36; Admin Dose 10,000 UNITS; Start 01/09/17 at 17:00 Acetaminophen 100 ml @ 400 mls/hr Q6H PRN IVPB FEVER Last administered on 01/10 09:11; Admin Dose 400 MLS/HR; Start 01/10/17 at 06:30 Vancomycin HCl/ Sodium Chloride (Vancocin/NS) 150 ml @ 75 mls/hr Q72H IVPB Last administered on 01/10/17 17:57; Admin Dose 75 MLS/HR; Start 01/10/17 at 18 :00 IV Flush (NS 10 ml) 10 ml PRN PRN IV IV PROTOCOL; Start 01/10/17 at 11:30 Amiodarone HCl 200 mg 200 mg BID GTB Last administered on 01/12/17 09:01; Admin Dose 200 MG; Start 01/11/17 at 12:00 Total Parenteral Nutrition (Tpn) 1,000 ml @ 50 mls/hr Q20H IV Last administered on 01/11/17 17:39; Admin Dose 50 MLS/HR; Start 01/11/17 at 18:00 Diagnostic Test (Pha) (Accu-Chek) 1 ea Q4H XX Last administered on 01/12/17 13 :25; Admin Dose 1 EA; Start 01/11/17 at 17:00 Epoetin Mina 18453 units 10,000 units MoWeFr@17 SC ; Start 01/13/17 at 17:00 Ferric Sodium Gluconate Complex/ Sodium Chloride (Ferrlecit/NS) 110 ml @ 110 mls/hr Q24H IVPB Last administered on 01/12/17 11:26; Admin Dose 110 MLS/HR; Start 01/12/17 at 10:00; Stop 01/16/17 at 10:59 Pantoprazole 40 mg 40 mg DAILY@06 IV ; Start 01/13/17 at 06:00 Meropenem 100 ml @ 200 mls/hr Q24H IVPB ; Start 01/12/17 at 16:00 Albumin Human (Albumin Human 25%) 100 ml @ 100 mls/hr ONCE ONCE IV Last administered on 01/12/17 15:00; Admin Dose 100 MLS/HR; Start 01/12/17 at 15:00 ; Stop 01/12/17 at 15:59 Vlad Leyva DO Jan 12, 2017 15:27
[2017-01-12] MEDS ORDERED: MEROPENEM 500 MG/100 ML (PMX) 100 ML IVPB SCH (16:00)
--- NOTE | 2017-01-12 16:40 | RADRPT ---
Vent Rate: 142 bpm RR Interval: 0 msec [place] Interval: 114 msec QRS Duration: 74 msec QT Interval: 352 msec QTC Interval: 541 msec P-R-T [place]: 57 - 54 - 52 degrees Sinus tachycardia Low voltage QRS Nonspecific T wave abnormality Abnormal ECG Electronically Signed By: Vlad Leyva [id number]
[2017-01-12] MEDS: TPN 1,000 ML IV SCH (17:10)
[2017-01-13] VITALS (52 sets, daily range): BP systolic 95–151; BP diastolic 52–129; PULSE 102–128; RESP 20–31
[2017-01-13] MEDS: ACCU-CHEK XX SCH ×6 (00:49→21:09)
[2017-01-13] MEDS: INSULIN ASPART [NOVOLOG] 3 ML PEN SC SCH ×2 (01:00→04:53)
[2017-01-13] MEDS: FENTAnyl (DRIP) 1000 mcg/100mL 100 ML IV SCH ×3 (04:01→23:42)
[2017-01-13] MEDS: MIDAZOLAM (DRIP) 50 mg/50 mL 50 ML IV SCH ×3 (04:01→22:54)
[2017-01-13 05:08] LABS: ADD SCAN DIFF NO
[2017-01-13 05:11] LABS: ABNORMAL IP MESSAGE 1; HEMATOCRIT 27.7 % (37.0-47.0); HEMOGLOBIN 9.3 g/dl (12.0-16.0); MEAN CORPUSCULAR HEMOGLOBIN 29.7 pg (29.0-33.0); MEAN CORPUSCULAR HGB CONC 33.6 g/dl (32.0-37.0); MEAN CORPUSCULAR VOLUME 88.5 fl (82.0-101.0); PLATELET COUNT 236 10^3/UL (140-415); RED BLOOD COUNT 3.13 10^6/ul (4.20-5.40); RED CELL DISTRIBUTION WIDTH 14.5 % (11.5-14.5); WHITE BLOOD COUNT 22.2 10^3/ul (4.8-10.8)
[2017-01-13] MEDS: VASOPRESSIN 60 UNIT in DEXTROSE 5% 57 ML IV SCH ×2 (05:30→17:30)
--- NOTE | 2017-01-13 05:30 | OPR ---
DATE OF OPERATION: SURGEON: Chaitanya Green MD OPERATION PERFORMED: 1. Sphincterotomy. 2. Removal of common bile duct stones. 3. Placement of common bile duct stent. INDICATIONS: Patient presenting with history of Samuel's pancreatitis. CAT scan showed evidence of a stone in the distal bile duct with biliary dilatation. POSTOPERATIVE DIAGNOSIS: Multiple common bile duct stones were noted. Multiple stones were removed. Common bile duct stents were placed. OPERATIVE PROCEDURE: After the informed consent was obtained, the patient was intubated by anesthesiologist, while patient was in the prone position. The Olympus video side-viewing duodenal scope was inserted into the oropharynx, then to the esophagus, subsequently to the stomach and duodenum. Ampulla was found to be significantly swollen and hyperemic, indicating possible impacted stone in the ampulla. Multiple common bile duct stones were noted and multiple stones were removed and a common bile duct stent was placed. Initially a Dreamtome was inserted into the common bile duct and when contrast was injected, multiple filing defects were noted. About a 4 mm cut was made of the ampulla with the help of the cutting deutsch of the Dreamtome. Following the cut, the Dreamtome was removed. A 15 x 18 stone extraction balloon was infiltrated into the common hepatic duct. Multiple stones were removed. At the end of the procedure, there is still a possibility there could be a filling defect. However, because the patient is a high risk, the patient could not stay too long here on the table. A 10 x 7 [place]-type of endo-biliary prosthesis was inserted into the bile duct, across the ampulla and into the duodenum. The procedure was terminated. PLAN: Recommend continue antibiotic therapy. Remove the stent after one or two months. Dictated By: Chaitanya Green MD /gigi/juan ramon /Document#: [id number]
[2017-01-13] MEDS: PANTOPRAZOLE 40 MG INJ IV SCH (05:36)
[2017-01-13 05:45] LABS: CALCIUM 8.2 mg/dl (8.4-10.2); CREATININE 3.96 mg/dl (0.44-1.00); PHOSPHORUS 3.8 mg/dl (2.5-4.9); POTASSIUM 3.5 mmol/L (3.5-5.1)
--- NOTE | 2017-01-13 07:52 | CONS ---
Date/Time of Note Date/Time of Note DATE: 01/13/17 TIME: 07:49 Assessment/Plan Assessment/Plan Chief Complaint/Hosp Course Admitted with abdominal pain and evidence of severe pancreatitis in otherwise good health. Problems: Additional Assessment/Plan 1. ARF sec to hypotension and pancreatitis. 2. Vol overloaded, will plan on HD today 3. Pancreatitis sec to common duct stone, s/p ercp with 1 stone remaining and stent placed 4. Anemia, stable 5. 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 Consultation Date/Type/Reason Admit Date/Time Jan 04, 2017 at 19:10 Initial Consult Date 01/05/17 Type of Consultation: cv Referring Provider: YING CASTAÑEDA 24 HR Interval Summary Subjective hx not possible: other (intubarted and sedated) Exam/Review of Systems Vital Signs Vitals Vital Signs Date Time Temp Pulse Resp B/P Pulse Ox O2 Delivery O2 Flow Rate FiO2 01/13/17 06:00 106 26 114/73 97 Mechanical Ventilator 01/13/17 05:02 30 01/13/17 04:00 98.8 Intake and Output 01/12/17 01/12/17 01/13/17 15:00 23:00 07:00 Intake Total 1032.0 ml 1246 ml 462 ml Output Total 700 ml 3670 ml 435 ml Balance 332.0 ml -2424 ml 27 ml Exam Neck: No jvd Respiratory: clear to auscultation (anteriorly) Gastrointestinal: No distended, No non-tender (no grimace to gentle palp) Extremities: edema (less extrem and sacrum) Results Result Diagram: 01/13/17 0400 01/13/17 0400 Results 24 hrs Laboratory Tests Test 01/12/17 09:06 01/12/17 13:19 01/12/17 17:11 01/12/17 21:04 Bedside Glucose 132 163 124 136 Test 01/13/17 00:38 01/13/17 04:00 01/13/17 04:50 Bedside Glucose 138 138 White Blood Count 22.2 #H Red Blood Count 3.13 L Hemoglobin 9.3 L Hematocrit 27.7 L Mean Corpuscular Volume 88.5 Mean Corpuscular Hemoglobin 29.7 Mean Corpuscular Hemoglobin Concent 33.6 Red Cell Distribution Width 14.5 Platelet Count 236 Mean Platelet Volume 11.0 H Neutrophils % Eosinophils % Neutrophils # Eosinophils # Sodium Level 129 L Potassium Level 3.5 Chloride Level 97 Carbon Dioxide Level 25 Anion Gap 11 Blood Urea Nitrogen 49 #H Creatinine 3.96 #H Glucose Level 139 Calcium Level 8.2 L Phosphorus Level 3.8 Magnesium Level 2.0 Medications Medications Current Medications Ondansetron HCl (Zofran Inj) 4 mg Q6H PRN IV NAUSEA AND/OR VOMITING; Start 01/04 at 19:30 Acetaminophen/ Hydrocodone Bitart ([place] (5/325)) 1 tab Q6H PRN PO MODERATE PAIN LEVEL 4-6; Start 01/04/17 at 19:30 Morphine Sulfate (morphine) 2 mg Q4H PRN IV SEVERE PAIN LEVEL 7-10 Last administered on 01/12/17 11:19; Admin Dose 2 MG; Start 01/04/17 at 19:30 Docusate Sodium (Colace) 100 mg Q12H PRN PO CONSTIPATION; Start 01/04/17 at 19: 30 Magnesium Hydroxide (Milk Of Mag) 30 ml DAILY PRN PO CONSTIPATION; Start at 19:30 Sodium Biphosphate/ Sodium Phosphate (Fleet Enema) 133 ml DAILY PRN [place] CONSTIPATION; Start 01/04/17 at 19:30 Heparin Sodium (Porcine) (Heparin (5000 Units/0.5 ml)) 5,000 unit Q12 SC Last administered on 01/11/17 08:33; Admin Dose 5,000 UNIT; Start 01/04/17 at 21:00; Status Future hold Lorazepam (Ativan) 0.5 mg Q6H PRN IV ANXIETY Last administered on 01/08/17 05: 58; Admin Dose 0.5 MG; Start 01/04/17 at 19:30 Hydralazine HCl (Apresoline) 10 mg Q6H PRN IV ELEVATED BLOOD PRESSURE; Start at 19:30 Nitroglycerin (Nitroglycerin (Sl Tab) 0.4 Mg) 1 tab Q5M PRN SL ANGINA; Start at 19:30 Insulin Aspart (Novolog Insulin Pen) NOVOLOG *MILD* ALGORI... Q4 SC Last administered on 01/12/17 13:25; Admin Dose 1 UNIT; Start 01/04/17 at 21:00 Phenobarbital (Luminal) 64.8 mg BID PO Last administered on 01/04/17 23:45; Admin Dose 64.8 MG; Start 01/04/17 at 21:00; Status Future Hold Topiramate (Topamax) 200 mg BID PO ; Start 01/05/17 at 21:00; Status Future Hold Miscellaneous Information 1 ea NOTE XX ; Start 01/04/17 at 19:30 Glucose (Glutose) 15 gm Q15M PRN PO DECREASED GLUCOSE; Start 01/04/17 at 19:30 Glucose (Glutose) 22.5 gm Q15M PRN PO DECREASED GLUCOSE; Start 01/04/17 at 19:30 Dextrose (D50w Syringe) 25 ml Q15M PRN IV DECREASED GLUCOSE Last administered on 01/08/17 05:36; Admin Dose 25 ML; Start 01/04/17 at 19:30 Dextrose (D50w Syringe) 50 ml Q15M PRN IV DECREASED GLUCOSE; Start 01/04/17 at 19:30 Glucagon (Glucagen) 1 mg Q15M PRN IM DECREASED GLUCOSE; Start 01/04/17 at 19:30 Glucose (Glutose) 15 gm Q15M PRN BUCCAL DECREASED GLUCOSE; Start 01/04/17 at 19: 30 Phenytoin (Dilantin Susp Cup) 100 mg TID PO Last administered on 01/04/17 23:44 ; Admin Dose 100 MG; Start 01/04/17 at 21:50; Status Future Hold Clonazepam 0.5 mg 0.5 mg Q8H PO Last administered on 01/04/17 23:45; Admin Dose 0.5 MG; Start 01/04/17 at 23:00; Status Future Hold Norepinephrine 16 mg/Dextrose 500 ml @ 1.87 mls/hr TITRATE IV Last administered on 01/07/17 00:23; Admin Dose 15 MLS/HR; Start 01/05/17 at 00:30 Fentanyl 100 ml @ 2.5 mls/hr TITRATE IV Last administered on 01/13/17 04:01; Admin Dose 10 MLS/HR; Start 01/05/17 at 08:39 Midazolam HCl 50 ml @ 1 mls/hr TITRATE IV Last administered on 01/13/17 04:01 ; Admin Dose 6 MLS/HR; Start 01/05/17 at 08:41 Levetiracetam 100 ml @ 400 mls/hr Q12 IVPB Last administered on 01/12/17 21: 03; Admin Dose 400 MLS/HR; Start 01/05/17 at 11:30 Vasopressin 60 unit/Dextrose 60 ml @ 1.2 mls/hr Q12H IV Last administered on 22:32; Admin Dose 2.4 MLS/HR; Start 01/05/17 at 17:30 Epinephrine 4 mg/ Sodium Chloride 250 ml @ 0 mls/hr TITRATE IV ; Start 01/05/17 at 18:30 Phenylephrine HCl/ Dextrose (Robert-Syneph/D5W) 500 ml @ 18.75 mls/ hr TITRATE IV Last administered on 01/07/17 23:21; Admin Dose 26.25 MLS/HR; Start 01/05/17 at 20:30 Acetaminophen (Tylenol Liquid) 650 mg Q4H PRN NGT PAIN AND OR ELEVATED TEMP Last administered on 01/06/17 04:29; Admin Dose 650 MG; Start 01/06/17 at 04:30 Insulin Glargine 10 unit 10 unit DAILY SC Last administered on 01/07/17 08:19; Admin Dose 10 UNIT; Start 01/06/17 at 14:00; Status Future Hold Acetaminophen 100 ml @ 400 mls/hr Q6H PRN IVPB FEVER Last administered on 01/10 09:11; Admin Dose 400 MLS/HR; Start 01/10/17 at 06:30 Vancomycin HCl/ Sodium Chloride (Vancocin/NS) 150 ml @ 75 mls/hr Q72H IVPB Last administered on 01/10/17 17:57; Admin Dose 75 MLS/HR; Start 01/10/17 at 18 :00 IV Flush (NS 10 ml) 10 ml PRN PRN IV IV PROTOCOL; Start 01/10/17 at 11:30 Amiodarone HCl 200 mg 200 mg BID GTB Last administered on 01/12/17 21:03; Admin Dose 200 MG; Start 01/11/17 at 12:00 Total Parenteral Nutrition (Tpn) 1,000 ml @ 50 mls/hr Q20H IV Last administered on 01/12/17 17:10; Admin Dose 50 MLS/HR; Start 01/11/17 at 18:00 Diagnostic Test (Pha) (Accu-Chek) 1 ea Q4H XX Last administered on 01/13/17 05 :09; Admin Dose 1 EA; Start 01/11/17 at 17:00 Epoetin Mina 12251 units 10,000 units MoWeFr@17 SC ; Start 01/13/17 at 17:00 Ferric Sodium Gluconate Complex/ Sodium Chloride (Ferrlecit/NS) 110 ml @ 110 mls/hr Q24H IVPB Last administered on 01/12/17 11:26; Admin Dose 110 MLS/HR; Start 01/12/17 at 10:00; Stop 01/16/17 at 10:59 Pantoprazole 40 mg 40 mg DAILY@06 IV Last administered on 01/13/17 05:36; Admin Dose 40 MG; Start 01/13/17 at 06:00 Meropenem (Merrem 500 Mg/ 100 ml (Pmx)) 100 ml @ 200 mls/hr Q24H IVPB Last administered on 01/12/17 17:09; Admin Dose 200 MLS/HR; Start 01/12/17 at 16:00 FRANCIS JULES MD Jan 13, 2017 07:52
[2017-01-13] MEDS: Insulin NOVOLOG SS MODERATE Algorithm(NPO/TPN/ENTERAL FEEDS) SC SCH ×4 (08:53→21:00)
[2017-01-13] MEDS: AMIODARONE 200 MG TAB GTB SCH ×2 (08:56→21:05)
[2017-01-13] MEDS: LEVETIRACETAM 1000 MG (PMX) 100 ML IVPB SCH ×2 (08:56→21:05)
[2017-01-13] MEDS: BALSAM PERU/CASTOR OIL 60 GM TUBE TOP SCH (08:56)
[2017-01-13] MEDS ORDERED: INSULIN ASPART [NOVOLOG] 3 ML PEN SC SCH (09:00)
--- NOTE | 2017-01-13 09:32 | RADRPT ---
PROCEDURE: XR Chest 1 View. CLINICAL INDICATION: Shortness of breath. TECHNIQUE: AP view of the chest was obtained. COMPARISON: Yesterday. FINDINGS: The heart size is within normal limits. Calcified atherosclerosis is noted in the aorta. Endotrache al tube is stable and appears in grossly appropriate location. Nasogastric tube has its tip in the expected location of the proximal stomach and proximal side hole at the level of the gastroesophagea l junction. Stimulator device over the left chest with its lead over the lower neck is unchanged. Right-sided PICC line is stable. Central pulmonary vascular congestion and interstitial prominence in both lungs is unchanged. Bilateral perihilar and lower lobe infiltrates, combined with moderate pleural effusions are stable. Osseous structures are unchanged. IMPRESSION: Calcified atherosclerosis in the aorta. Nasogastric tube that has its tip in the expected location of the proximal stomach and its proximal side hole at the level of the gastroesophageal junction. Advancement by approximately 8 cm is advis ed. Stable central pulmonary vascular congestion and interstitial prominence in both lungs. Stable bilateral perihilar and lower lung infiltrates, combined with moderate pleural effusions. RPTAT: AA .Stephane Navas MD, MD Date Time Electronically viewed and signed by .Stephane Navas MD, MD on 01/13/2017 09:32 .P/
[2017-01-13] MEDS: SOD FERRIC GLUC COMPLX 125 MG in SOD CHLORIDE 0.9% 100 ML IVPB SCH (09:51)
[2017-01-13 10:27] LABS: BURR CELLS 1+; MONOCYTE # 0.2 10^3/ul (0.3-0.9); MYELOCYTES # 0.4; NEUTROPHIL # 15.3 10^3/ul (1.6-7.5); POLYCHROMASIA 1+
--- NOTE | 2017-01-13 12:02 | CONS ---
Date/Time of Note Date/Time of Note DATE: 01/13/17 TIME: 12:01 Consult Date/Type/Reason Admit Date/Time Jan 04, 2017 at 19:10 Initial Consult Date 01/05/17 Type of Consultation: Pulmonary Ordering Provider: YING CASTAÑEDA Subjective Patient remains mostly somnolent on mechanical ventilation Objective Vital Signs Date Time Temp Pulse Resp B/P Pulse Ox O2 Delivery O2 Flow Rate FiO2 01/13/17 11:30 116 26 104/67 97 01/13/17 11:00 Mechanical Ventilator 01/13/17 08:00 98.6 01/13/17 08:00 30 Intake and Output 01/12/17 01/12/17 01/13/17 15:00 23:00 07:00 Intake Total 1032.0 ml 1246 ml 462 ml Output Total 700 ml 3670 ml 435 ml Balance 332.0 ml -2424 ml 27 ml Exam GENERAL: Chronically ill-appearing elderly lady on mechanical ventilation, awake and alert follows simple commands VITAL SIGNS: per chart NECK: Supple. No JVD or lymphadenopathy. CARDIAC EXAM: S1, S2. No added sounds or murmurs. CHEST: Diminished air entry bilaterally poor effort ABDOMEN: Soft, nontender. No guarding or rebound. EXTREMITIES: No cyanosis, clubbing edema +2 NEUROLOGIC: Generalized weakness. Results/Medications Result Diagram: 01/13/17 0400 01/13/17 0400 Results 24 hrs Chest x-ray Pulmonary edema and bilateral pleural effusions Laboratory Tests Test 01/12/17 13:19 01/12/17 17:11 01/12/17 21:04 01/13/17 00:38 Bedside Glucose 163 124 136 138 Test 01/13/17 04:00 01/13/17 04:50 01/13/17 08:26 White Blood Count 22.2 #H Red Blood Count 3.13 L Hemoglobin 9.3 L Hematocrit 27.7 L Mean Corpuscular Volume 88.5 Mean Corpuscular Hemoglobin 29.7 Mean Corpuscular Hemoglobin Concent 33.6 Red Cell Distribution Width 14.5 Platelet Count 236 Mean Platelet Volume 11.0 H Neutrophils % 69.0 Band Neutrophils % 15.0 H Lymphocytes % 9.0 L Monocytes % 1.0 Eosinophils % Metamyelocytes % 3.0 H Myelocytes % 2.0 H Promyelocytes % 1.0 H Neutrophils # 15.3 H Lymphocytes # 2.0 Monocytes # 0.2 L Eosinophils # Metamyelocytes # 0.7 Myelocytes # 0.4 Promyelocytes # 0.2 Polychromasia 1+ Sodium Level 129 L Potassium Level 3.5 Chloride Level 97 Carbon Dioxide Level 25 Anion Gap 11 Blood Urea Nitrogen 49 #H Creatinine 3.96 #H Glucose Level 139 Calcium Level 8.2 L Phosphorus Level 3.8 Magnesium Level 2.0 Bedside Glucose 138 144 Medications Current Medications Ondansetron HCl (Zofran Inj) 4 mg Q6H PRN IV NAUSEA AND/OR VOMITING; Start 01/04 at 19:30 Acetaminophen/ Hydrocodone Bitart ([place] (5/325)) 1 tab Q6H PRN PO MODERATE PAIN LEVEL 4-6; Start 01/04/17 at 19:30 Morphine Sulfate (morphine) 2 mg Q4H PRN IV SEVERE PAIN LEVEL 7-10 Last administered on 01/12/17 11:19; Admin Dose 2 MG; Start 01/04/17 at 19:30 Docusate Sodium (Colace) 100 mg Q12H PRN PO CONSTIPATION; Start 01/04/17 at 19: 30 Magnesium Hydroxide (Milk Of Mag) 30 ml DAILY PRN PO CONSTIPATION; Start at 19:30 Sodium Biphosphate/ Sodium Phosphate (Fleet Enema) [address] CONSTIPATION; Start 01/04/17 at 19:30 Heparin Sodium (Porcine) (Heparin (5000 Units/0.5 ml)) 5,000 unit Q12 SC Last administered on 01/11/17 08:33; Admin Dose 5,000 UNIT; Start 01/04/17 at 21:00; Status Future hold Lorazepam (Ativan) 0.5 mg Q6H PRN IV ANXIETY Last administered on 01/08/17 05: 58; Admin Dose 0.5 MG; Start 01/04/17 at 19:30 Hydralazine HCl (Apresoline) 10 mg Q6H PRN IV ELEVATED BLOOD PRESSURE; Start at 19:30 Nitroglycerin (Nitroglycerin (Sl Tab) 0.4 Mg) 1 tab Q5M PRN SL ANGINA; Start at 19:30 Phenobarbital (Luminal) 64.8 mg BID PO Last administered on 01/04/17 23:45; Admin Dose 64.8 MG; Start 01/04/17 at 21:00; Status Future Hold Topiramate (Topamax) 200 mg BID PO ; Start 01/05/17 at 21:00; Status Future Hold Miscellaneous Information 1 ea NOTE XX ; Start 01/04/17 at 19:30 Glucose (Glutose) 15 gm Q15M PRN PO DECREASED GLUCOSE; Start 01/04/17 at 19:30 Glucose (Glutose) 22.5 gm Q15M PRN PO DECREASED GLUCOSE; Start 01/04/17 at 19:30 Dextrose (D50w Syringe) 25 ml Q15M PRN IV DECREASED GLUCOSE Last administered on 01/08/17 05:36; Admin Dose 25 ML; Start 01/04/17 at 19:30 Dextrose (D50w Syringe) 50 ml Q15M PRN IV DECREASED GLUCOSE; Start 01/04/17 at 19:30 Glucagon (Glucagen) 1 mg Q15M PRN IM DECREASED GLUCOSE; Start 01/04/17 at 19:30 Glucose (Glutose) 15 gm Q15M PRN BUCCAL DECREASED GLUCOSE; Start 01/04/17 at 19: 30 Phenytoin (Dilantin Susp Cup) 100 mg TID PO Last administered on 01/04/17 23:44 ; Admin Dose 100 MG; Start 01/04/17 at 21:50; Status Future Hold Clonazepam 0.5 mg 0.5 mg Q8H PO Last administered on 01/04/17 23:45; Admin Dose 0.5 MG; Start 01/04/17 at 23:00; Status Future Hold Norepinephrine 16 mg/Dextrose 500 ml @ 1.87 mls/hr TITRATE IV Last administered on 01/07/17 00:23; Admin Dose 15 MLS/HR; Start 01/05/17 at 00:30 Fentanyl 100 ml @ 2.5 mls/hr TITRATE IV Last administered on 01/13/17 04:01; Admin Dose 10 MLS/HR; Start 01/05/17 at 08:39 Midazolam HCl 50 ml @ 1 mls/hr TITRATE IV Last administered on 01/13/17 04:01 ; Admin Dose 6 MLS/HR; Start 01/05/17 at 08:41 Levetiracetam 100 ml @ 400 mls/hr Q12 IVPB Last administered on 01/13/17 08: 56; Admin Dose 400 MLS/HR; Start 01/05/17 at 11:30 Vasopressin 60 unit/Dextrose 60 ml @ 1.2 mls/hr Q12H IV Last administered on 22:32; Admin Dose 2.4 MLS/HR; Start 01/05/17 at 17:30 Epinephrine 4 mg/ Sodium Chloride 250 ml @ 0 mls/hr TITRATE IV ; Start 01/05/17 at 18:30 Phenylephrine HCl/ Dextrose (Robert-Syneph/D5W) 500 ml @ 18.75 mls/ hr TITRATE IV Last administered on 01/07/17 23:21; Admin Dose 26.25 MLS/HR; Start 01/05/17 at 20:30 Acetaminophen (Tylenol Liquid) 650 mg Q4H PRN NGT PAIN AND OR ELEVATED TEMP Last administered on 01/06/17 04:29; Admin Dose 650 MG; Start 01/06/17 at 04:30 Insulin Glargine 10 unit 10 unit DAILY SC Last administered on 01/07/17 08:19; Admin Dose 10 UNIT; Start 01/06/17 at 14:00; Status Future Hold Acetaminophen 100 ml @ 400 mls/hr Q6H PRN IVPB FEVER Last administered on 01/10 09:11; Admin Dose 400 MLS/HR; Start 01/10/17 at 06:30 Vancomycin HCl/ Sodium Chloride (Vancocin/NS) 150 ml @ 75 mls/hr Q72H IVPB Last administered on 01/10/17 17:57; Admin Dose 75 MLS/HR; Start 01/10/17 at 18 :00 IV Flush (NS 10 ml) 10 ml PRN PRN IV IV PROTOCOL; Start 01/10/17 at 11:30 Amiodarone HCl (Cordarone) 200 mg BID GTB Last administered on 01/13/17 08:56 ; Admin Dose 200 MG; Start 01/11/17 at 12:00 Diagnostic Test (Pha) (Accu-Chek) 1 ea Q4H XX Last administered on 01/13/17 08 :56; Admin Dose 1 EA; Start 01/11/17 at 17:00 Epoetin Mina 24973 units 10,000 units MoWeFr@17 SC ; Start 01/13/17 at 17:00 Ferric Sodium Gluconate Complex/ Sodium Chloride (Ferrlecit/NS) 110 ml @ 110 mls/hr Q24H IVPB Last administered on 01/13/17 09:51; Admin Dose 110 MLS/HR; Start 01/12/17 at 10:00; Stop 01/16/17 at 10:59 Pantoprazole (Protonix Iv) 40 mg DAILY@06 IV Last administered on 01/13/17 05: 36; Admin Dose 40 MG; Start 01/13/17 at 06:00 Insulin Aspart (Novolog Insulin Pen) (Adult SC Insulin - Moder... Q4 SC Last administered on 01/13/17 08:53; Admin Dose 2 UNIT; Start 01/13/17 at 09:00 Miscellaneous Information VANCOMYCIN TROUGH ON @ 7... ONCE ONCE XX ; Start 01/13/17 at 17:00; Stop 01/13/17 at 17:01 Meropenem/Sodium Chloride 50 ml @ 200 mls/hr Q12H IVPB ; Start 01/13/17 at 10: 00 Total Parenteral Nutrition (Tpn) 1,000 ml @ 50 mls/hr Q20H IV ; Start 01/13/17 at 14:00 Assessment/Plan Chief Complaint/Hosp Course IMP: 1. Severe gallstone pancreatitis with septic shock, now slowly improving. 2. Metabolic acidosis secondary to above and ARF 3. Renal failure likely ATN now requiring hemodialysis 4. Hypoxemic respiratory failure secondary to above, bilateral pleural effusions with evidence of pulmonary edema 5. History of seizure disorder RECS: 1. Hemodialysis today per nephrology 2. Continue mechanical ventilation, thoracentesis of pleural effusions then CPAP trial if neurological status improves 3. Broad-spectrum antibiotic coverage 4. Nasogastric tube to suction 5. Advance diet per GI 6. Continue DVT and GI prophylaxis 35 min cc time Problems: AMPARO VALERIO MD, [facility] Jan 13, 2017 12:02
[2017-01-13] MEDS: MEROPENEM 500MG/50 ML (PMX) 50 ML IVPB SCH ×2 (12:17→22:15)
--- NOTE | 2017-01-13 12:24 | CONS ---
Date/Time of Note Date/Time of Note DATE: 01/13/17 TIME: 12:22 Assessment/Plan Assessment/Plan Additional Assessment/Plan Paroxysmal atrial fibrillation Severe sepsis Acute pancreatitis status post ERCP Preserved ejection fraction Respiratory failure, vent dependent Acute kidney injury now on hemodialysis Seizure disorder Psychiatric disorder Acute blood loss anemia -Currently remains in sinus rhythm. Fluid management and diuretics as per our nephrology colleagues. To decrease chance of arrhythmias, maintain potassium above 4.0 and magnesium above 2.0. Less atrial fibrillation on telemetry and would continue amiodarone. Consultation Date/Type/Reason Admit Date/Time Jan 04, 2017 at 19:10 Initial Consult Date 01/05/17 Type of Consultation: cv Referring Provider: YING CASTAÑEDA 24 HR Interval Summary Free Text/Dictation Patient seen and examined, currently on hemodialysis Exam/Review of Systems Vital Signs Vitals Vital Signs Date Time Temp Pulse Resp B/P Pulse Ox O2 Delivery O2 Flow Rate FiO2 01/13/17 11:30 116 26 104/67 97 01/13/17 11:00 Mechanical Ventilator 01/13/17 08:00 98.6 01/13/17 08:00 30 Intake and Output 01/12/17 01/12/17 01/13/17 15:00 23:00 07:00 Intake Total 1032.0 ml 1246 ml 462 ml Output Total 700 ml 3670 ml 435 ml Balance 332.0 ml -2424 ml 27 ml Exam Sedated and intubated, undergoing hemodialysis Head: normocephalic ENMT: intubated Respiratory: other (Coarse breath sounds bilaterally, no wheezing) Cardiovascular: other (S1-S2 heard), regular rate and rhythm Gastrointestinal: bowel sounds, other (No grimacing with palpation), soft Extremities: edema Results Result Diagram: 01/13/17 0400 01/13/17 0400 Results 24 hrs Laboratory Tests Test 01/12/17 13:19 01/12/17 17:11 01/12/17 21:04 01/13/17 00:38 Bedside Glucose 163 124 136 138 Test 01/13/17 04:00 01/13/17 04:50 01/13/17 08:26 White Blood Count 22.2 #H Red Blood Count 3.13 L Hemoglobin 9.3 L Hematocrit 27.7 L Mean Corpuscular Volume 88.5 Mean Corpuscular Hemoglobin 29.7 Mean Corpuscular Hemoglobin Concent 33.6 Red Cell Distribution Width 14.5 Platelet Count 236 Mean Platelet Volume 11.0 H Neutrophils % 69.0 Band Neutrophils % 15.0 H Lymphocytes % 9.0 L Monocytes % 1.0 Eosinophils % Metamyelocytes % 3.0 H Myelocytes % 2.0 H Promyelocytes % 1.0 H Neutrophils # 15.3 H Lymphocytes # 2.0 Monocytes # 0.2 L Eosinophils # Metamyelocytes # 0.7 Myelocytes # 0.4 Promyelocytes # 0.2 Polychromasia 1+ Sodium Level 129 L Potassium Level 3.5 Chloride Level 97 Carbon Dioxide Level 25 Anion Gap 11 Blood Urea Nitrogen 49 #H Creatinine 3.96 #H Glucose Level 139 Calcium Level 8.2 L Phosphorus Level 3.8 Magnesium Level 2.0 Bedside Glucose 138 144 Medications Medications Current Medications Ondansetron HCl (Zofran Inj) 4 mg Q6H PRN IV NAUSEA AND/OR VOMITING; Start 01/04 at 19:30 Acetaminophen/ Hydrocodone Bitart ([place] (5/325)) 1 tab Q6H PRN PO MODERATE PAIN LEVEL 4-6; Start 01/04/17 at 19:30 Morphine Sulfate (morphine) 2 mg Q4H PRN IV SEVERE PAIN LEVEL 7-10 Last administered on 01/12/17 11:19; Admin Dose 2 MG; Start 01/04/17 at 19:30 Docusate Sodium (Colace) 100 mg Q12H PRN PO CONSTIPATION; Start 01/04/17 at 19: 30 Magnesium Hydroxide (Milk Of Mag) 30 ml DAILY PRN PO CONSTIPATION; Start at 19:30 Sodium Biphosphate/ Sodium Phosphate (Fleet Enema) 133 ml DAILY PRN [place] CONSTIPATION; Start 01/04/17 at 19:30 Heparin Sodium (Porcine) (Heparin (5000 Units/0.5 ml)) 5,000 unit Q12 SC Last administered on 01/11/17 08:33; Admin Dose 5,000 UNIT; Start 01/04/17 at 21:00; Status Future hold Lorazepam (Ativan) 0.5 mg Q6H PRN IV ANXIETY Last administered on 01/08/17 05: 58; Admin Dose 0.5 MG; Start 01/04/17 at 19:30 Hydralazine HCl (Apresoline) 10 mg Q6H PRN IV ELEVATED BLOOD PRESSURE; Start at 19:30 Nitroglycerin (Nitroglycerin (Sl Tab) 0.4 Mg) 1 tab Q5M PRN SL ANGINA; Start at 19:30 Phenobarbital (Luminal) 64.8 mg BID PO Last administered on 01/04/17 23:45; Admin Dose 64.8 MG; Start 01/04/17 at 21:00; Status Future Hold Topiramate (Topamax) 200 mg BID PO ; Start 01/05/17 at 21:00; Status Future Hold Miscellaneous Information 1 ea NOTE XX ; Start 01/04/17 at 19:30 Glucose (Glutose) 15 gm Q15M PRN PO DECREASED GLUCOSE; Start 01/04/17 at 19:30 Glucose (Glutose) 22.5 gm Q15M PRN PO DECREASED GLUCOSE; Start 01/04/17 at 19:30 Dextrose (D50w Syringe) 25 ml Q15M PRN IV DECREASED GLUCOSE Last administered on 01/08/17 05:36; Admin Dose 25 ML; Start 01/04/17 at 19:30 Dextrose (D50w Syringe) 50 ml Q15M PRN IV DECREASED GLUCOSE; Start 01/04/17 at 19:30 Glucagon (Glucagen) 1 mg Q15M PRN IM DECREASED GLUCOSE; Start 01/04/17 at 19:30 Glucose (Glutose) 15 gm Q15M PRN BUCCAL DECREASED GLUCOSE; Start 01/04/17 at 19: 30 Phenytoin (Dilantin Susp Cup) 100 mg TID PO Last administered on 01/04/17 23:44 ; Admin Dose 100 MG; Start 01/04/17 at 21:50; Status Future Hold Clonazepam 0.5 mg 0.5 mg Q8H PO Last administered on 01/04/17 23:45; Admin Dose 0.5 MG; Start 01/04/17 at 23:00; Status Future Hold Norepinephrine 16 mg/Dextrose 500 ml @ 1.87 mls/hr TITRATE IV Last administered on 01/07/17 00:23; Admin Dose 15 MLS/HR; Start 01/05/17 at 00:30 Fentanyl 100 ml @ 2.5 mls/hr TITRATE IV Last administered on 01/13/17 04:01; Admin Dose 10 MLS/HR; Start 01/05/17 at 08:39 Midazolam HCl 50 ml @ 1 mls/hr TITRATE IV Last administered on 01/13/17 04:01 ; Admin Dose 6 MLS/HR; Start 01/05/17 at 08:41 Levetiracetam 100 ml @ 400 mls/hr Q12 IVPB Last administered on 01/13/17 08: 56; Admin Dose 400 MLS/HR; Start 01/05/17 at 11:30 Vasopressin 60 unit/Dextrose 60 ml @ 1.2 mls/hr Q12H IV Last administered on 22:32; Admin Dose 2.4 MLS/HR; Start 01/05/17 at 17:30 Epinephrine 4 mg/ Sodium Chloride 250 ml @ 0 mls/hr TITRATE IV ; Start 01/05/17 at 18:30 Phenylephrine HCl/ Dextrose (Robert-Syneph/D5W) 500 ml @ 18.75 mls/ hr TITRATE IV Last administered on 01/07/17 23:21; Admin Dose 26.25 MLS/HR; Start 01/05/17 at 20:30 Acetaminophen (Tylenol Liquid) 650 mg Q4H PRN NGT PAIN AND OR ELEVATED TEMP Last administered on 01/06/17 04:29; Admin Dose 650 MG; Start 01/06/17 at 04:30 Insulin Glargine 10 unit 10 unit DAILY SC Last administered on 01/07/17 08:19; Admin Dose 10 UNIT; Start 01/06/17 at 14:00; Status Future Hold Acetaminophen 100 ml @ 400 mls/hr Q6H PRN IVPB FEVER Last administered on 01/10 09:11; Admin Dose 400 MLS/HR; Start 01/10/17 at 06:30 Vancomycin HCl/ Sodium Chloride (Vancocin/NS) 150 ml @ 75 mls/hr Q72H IVPB Last administered on 01/10/17 17:57; Admin Dose 75 MLS/HR; Start 01/10/17 at 18 :00 IV Flush (NS 10 ml) 10 ml PRN PRN IV IV PROTOCOL; Start 01/10/17 at 11:30 Amiodarone HCl (Cordarone) 200 mg BID GTB Last administered on 01/13/17 08:56 ; Admin Dose 200 MG; Start 01/11/17 at 12:00 Diagnostic Test (Pha) (Accu-Chek) 1 ea Q4H XX Last administered on 01/13/17 08 :56; Admin Dose 1 EA; Start 01/11/17 at 17:00 Epoetin Mina 13763 units 10,000 units MoWeFr@17 SC ; Start 01/13/17 at 17:00 Ferric Sodium Gluconate Complex/ Sodium Chloride (Ferrlecit/NS) 110 ml @ 110 mls/hr Q24H IVPB Last administered on 01/13/17 09:51; Admin Dose 110 MLS/HR; Start 01/12/17 at 10:00; Stop 01/16/17 at 10:59 Pantoprazole (Protonix Iv) 40 mg DAILY@06 IV Last administered on 01/13/17 05: 36; Admin Dose 40 MG; Start 01/13/17 at 06:00 Insulin Aspart (Novolog Insulin Pen) (Adult SC Insulin - Moder... Q4 SC Last administered on 01/13/17 12:18; Admin Dose 2 UNIT; Start 01/13/17 at 09:00 Miscellaneous Information VANCOMYCIN TROUGH ON @ 7... ONCE ONCE XX ; Start 01/13/17 at 17:00; Stop 01/13/17 at 17:01 Meropenem/Sodium Chloride 50 ml @ 200 mls/hr Q12H IVPB Last administered on 12:17; Admin Dose 200 MLS/HR; Start 01/13/17 at 10:00 Total Parenteral Nutrition (Tpn) 1,000 ml @ 50 mls/hr Q20H IV ; Start 01/13/17 at 14:00 Vlad Leyva DO Jan 13, 2017 12:24
[2017-01-13] MEDS: TPN 1,000 ML IV SCH (13:12)
--- NOTE | 2017-01-13 14:06 | CONS ---
Date/Time of Note Date/Time of Note DATE: 01/13/17 TIME: 14:04 Assessment/Plan Assessment/Plan Chief Complaint/Hosp Course No acute events. In hemodialysis, looks comfortable, vital signs stable off pressors, sedated with Versed and fentanyl Temperature 98.9 pulse 116 respirations 26 blood pressure 115/72 saturation 99 on vent WBC 22.2 H&H 9.3 and 27.7 platelets 236 neutrophils 69 bands 15 lymphs 9 Chest x-ray this morning revealed stable central pulmonary vascular congestion, stable bilateral perihilar and lower lungs infiltrates Indwelling's: Endotracheal tube NG tube right femoral Gael catheter, right PICC line, Matias Antibiotics: Meropenem, vancomycin day #8 total antibiotics Microbiology: Blood culture on admission grew coag negative staph species urine culture grew E. coli repeat blood and urine culture had been negative Physical examination: Chronically ill-appearing elderly woman who looks comfortable on vent. Head atraumatic normocephalic, sclera nonicteric. Neck is supple, trachea midline. Heart: S1, S2, tachycardic Abdomen soft bowel tones present. Extremities with trace edema, no cyanosis Assessment: 1. Sepsis, status post shock 2. Severe, acute pancreatitis 3. Choledocholithiasis, status post ERCP 01/12/17 with removal of the stone and stent placement 4. Coag negative staph bacteremia, likely contaminant 5. Acute respiratory failure 6. Acute renal failure requiring hemodialysis 7. Status post urinary tract infection Plan: Remains hemodynamically stable, continue antibiotics, vent support per pulmonary, nephrology GI recommendations. Discussed with staff Discussed with RN Problems: Consultation Date/Type/Reason Admit Date/Time Jan 04, 2017 at 19:10 Initial Consult Date 01/11/17 Type of Consultation: ID Referring Provider: YING CASTAÑEDA Exam/Review of Systems Vital Signs Vitals Vital Signs Date Time Temp Pulse Resp B/P Pulse Ox O2 Delivery O2 Flow Rate FiO2 01/13/17 13:00 118 26 110/67 98 Mechanical Ventilator 01/13/17 12:00 98.9 01/13/17 08:00 30 Intake and Output 01/12/17 01/12/17 01/13/17 15:00 23:00 07:00 Intake Total 1032.0 ml 1246 ml 462 ml Output Total 700 ml 3670 ml 435 ml Balance 332.0 ml -2424 ml 27 ml Results Result Diagram: 7/14/17 0400 01/13/17 0400 Results 24 hrs Laboratory Tests Test 01/12/17 17:11 01/12/17 21:04 01/13/17 00:38 01/13/17 04:00 Bedside Glucose 124 136 138 White Blood Count 22.2 #H Red Blood Count 3.13 L Hemoglobin 9.3 L Hematocrit 27.7 L Mean Corpuscular Volume 88.5 Mean Corpuscular Hemoglobin 29.7 Mean Corpuscular Hemoglobin Concent 33.6 Red Cell Distribution Width 14.5 Platelet Count 236 Mean Platelet Volume 11.0 H Neutrophils % 69.0 Band Neutrophils % 15.0 H Lymphocytes % 9.0 L Monocytes % 1.0 Eosinophils % Metamyelocytes % 3.0 H Myelocytes % 2.0 H Promyelocytes % 1.0 H Neutrophils # 15.3 H Lymphocytes # 2.0 Monocytes # 0.2 L Eosinophils # Metamyelocytes # 0.7 Myelocytes # 0.4 Promyelocytes # 0.2 Polychromasia 1+ Sodium Level 129 L Potassium Level 3.5 Chloride Level 97 Carbon Dioxide Level 25 Anion Gap 11 Blood Urea Nitrogen 49 #H Creatinine 3.96 #H Glucose Level 139 Calcium Level 8.2 L Phosphorus Level 3.8 Magnesium Level 2.0 Test 01/13/17 04:50 01/13/17 08:26 01/13/17 12:16 Bedside Glucose 138 144 151 Medications Medications Current Medications Ondansetron HCl (Zofran Inj) 4 mg Q6H PRN IV NAUSEA AND/OR VOMITING; Start 01/04 at 19:30 Acetaminophen/ Hydrocodone Bitart ([place] (5/325)) 1 tab Q6H PRN PO MODERATE PAIN LEVEL 4-6; Start 01/04/17 at 19:30 Morphine Sulfate (morphine) 2 mg Q4H PRN IV SEVERE PAIN LEVEL 7-10 Last administered on 01/12/17t 11:19; Admin Dose 2 MG; Start 01/04/17 at 19:30 Docusate Sodium (Colace) 100 mg Q12H PRN PO CONSTIPATION; Start 01/04/17 at 19: 30 Magnesium Hydroxide (Milk Of Mag) 30 ml DAILY PRN PO CONSTIPATION; Start at 19:30 Sodium Biphosphate/ Sodium Phosphate (Fleet Enema) 133 ml DAILY PRN [place] CONSTIPATION; Start 01/04/17 at 19:30 Heparin Sodium (Porcine) (Heparin (5000 Units/0.5 ml)) 5,000 unit Q12 SC Last administered on 01/11/17 08:33; Admin Dose 5,000 UNIT; Start 01/04/17 at 21:00; Status Future hold Lorazepam (Ativan) 0.5 mg Q6H PRN IV ANXIETY Last administered on 01/08/17 05: 58; Admin Dose 0.5 MG; Start 01/04/17 at 19:30 Hydralazine HCl (Apresoline) 10 mg Q6H PRN IV ELEVATED BLOOD PRESSURE; Start at 19:30 Nitroglycerin (Nitroglycerin (Sl Tab) 0.4 Mg) 1 tab Q5M PRN SL ANGINA; Start at 19:30 Phenobarbital (Luminal) 64.8 mg BID PO Last administered on 01/04/17 23:45; Admin Dose 64.8 MG; Start 01/04/17 at 21:00; Status Future Hold Topiramate (Topamax) 200 mg BID PO ; Start 01/05/17 at 21:00; Status Future Hold Miscellaneous Information 1 ea NOTE XX ; Start 01/04/17 at 19:30 Glucose (Glutose) 15 gm Q15M PRN PO DECREASED GLUCOSE; Start 01/04/17 at 19:30 Glucose (Glutose) 22.5 gm Q15M PRN PO DECREASED GLUCOSE; Start 01/04/17 at 19:30 Dextrose (D50w Syringe) 25 ml Q15M PRN IV DECREASED GLUCOSE Last administered on 01/08/17 05:36; Admin Dose 25 ML; Start 01/04/17 at 19:30 Dextrose (D50w Syringe) 50 ml Q15M PRN IV DECREASED GLUCOSE; Start 01/04/17 at 19:30 Glucagon (Glucagen) 1 mg Q15M PRN IM DECREASED GLUCOSE; Start 01/04/17 at 19:30 Glucose (Glutose) 15 gm Q15M PRN BUCCAL DECREASED GLUCOSE; Start 01/04/17 at 19: 30 Phenytoin (Dilantin Susp Cup) 100 mg TID PO Last administered on 01/04/17 23:44 ; Admin Dose 100 MG; Start 01/04/17 at 21:50; Status Future Hold Clonazepam 0.5 mg 0.5 mg Q8H PO Last administered on 01/04/17 23:45; Admin Dose 0.5 MG; Start 01/04/17 at 23:00; Status Future Hold Norepinephrine 16 mg/Dextrose 500 ml @ 1.87 mls/hr TITRATE IV Last administered on 01/07/17 00:23; Admin Dose 15 MLS/HR; Start 01/05/17 at 00:30 Fentanyl 100 ml @ 2.5 mls/hr TITRATE IV Last administered on 01/13/17 13:51; Admin Dose 10 MLS/HR; Start 01/05/17 at 08:39 Midazolam HCl 50 ml @ 1 mls/hr TITRATE IV Last administered on 01/13/17 13:51 ; Admin Dose 6 MLS/HR; Start 01/05/17 at 08:41 Levetiracetam 100 ml @ 400 mls/hr Q12 IVPB Last administered on 01/13/17 08: 56; Admin Dose 400 MLS/HR; Start 01/05/17 at 11:30 Vasopressin 60 unit/Dextrose 60 ml @ 1.2 mls/hr Q12H IV Last administered on 22:32; Admin Dose 2.4 MLS/HR; Start 01/05/17 at 17:30 Epinephrine 4 mg/ Sodium Chloride 250 ml @ 0 mls/hr TITRATE IV ; Start 01/05/17 at 18:30 Phenylephrine HCl/ Dextrose (Robert-Syneph/D5W) 500 ml @ 18.75 mls/ hr TITRATE IV Last administered on 01/07/17 23:21; Admin Dose 26.25 MLS/HR; Start 01/05/17 at 20:30 Acetaminophen (Tylenol Liquid) 650 mg Q4H PRN NGT PAIN AND OR ELEVATED TEMP Last administered on 01/06/17 04:29; Admin Dose 650 MG; Start 01/06/17 at 04:30 Insulin Glargine 10 unit 10 unit DAILY SC Last administered on 01/07/17 08:19; Admin Dose 10 UNIT; Start 01/06/17 at 14:00; Status Future Hold Acetaminophen 100 ml @ 400 mls/hr Q6H PRN IVPB FEVER Last administered on 01/10 09:11; Admin Dose 400 MLS/HR; Start 01/10/17 at 06:30 Vancomycin HCl/ Sodium Chloride (Vancocin/NS) 150 ml @ 75 mls/hr Q72H IVPB Last administered on 01/10/17 17:57; Admin Dose 75 MLS/HR; Start 01/10/17 at 18 :00 IV Flush (NS 10 ml) 10 ml PRN PRN IV IV PROTOCOL; Start 01/10/17 at 11:30 Amiodarone HCl (Cordarone) 200 mg BID GTB Last administered on 01/13/17 08:56 ; Admin Dose 200 MG; Start 01/11/17 at 12:00 Diagnostic Test (Pha) (Accu-Chek) 1 ea Q4H XX Last administered on 01/13/17 08 :56; Admin Dose 1 EA; Start 01/11/17 at 17:00 Epoetin Mina [id number] units 10,000 units MoWeFr@17 SC ; Start 01/13/17 at 17:00 Ferric Sodium Gluconate Complex/ Sodium Chloride (Ferrlecit/NS) 110 ml @ 110 mls/hr Q24H IVPB Last administered on 01/13/17 09:51; Admin Dose 110 MLS/HR; Start 01/12/17 at 10:00; Stop 01/16/17 at 10:59 Pantoprazole (Protonix Iv) 40 mg DAILY@06 IV Last administered on 01/13/17 05: 36; Admin Dose 40 MG; Start 01/13/17 at 06:00 Insulin Aspart (Novolog Insulin Pen) (Adult SC Insulin - Moder... Q4 SC Last administered on 01/13/17 12:18; Admin Dose 2 UNIT; Start 01/13/17 at 09:00 Miscellaneous Information VANCOMYCIN TROUGH ON @ 7... ONCE ONCE XX ; Start 01/13/17 at 17:00; Stop 01/13/17 at 17:01 Meropenem/Sodium Chloride 50 ml @ 200 mls/hr Q12H IVPB Last administered on 12:17; Admin Dose 200 MLS/HR; Start 01/13/17 at 10:00 Total Parenteral Nutrition (Tpn) 1,000 ml @ 50 mls/hr Q20H IV Last administered on 7/14/17at 13:12; Admin Dose 50 MLS/HR; Start 01/13/17 at 14:00 MIKE TURCIOS NP Jan 13, 2017 14:06
--- NOTE | 2017-01-13 15:58 | PN ---
Date/Time of Note Date/Time of Note DATE: 01/13/17 TIME: 15:50 Assessment/Plan VTE Prophylaxis VTE Prophylaxis Intervention: heparin Lines/Catheters IV C[facility]from [facility] EPIFANIO Assessment/Plan Chief Complaint/Hosp Course 1. Severe shock secondary to severe Pancreatitis and/or sepsis from staph bacteremia: Continue broad-spectrum IV antibiotics Ultrasound shows no gallstones but CT abdomen shows biliary ductal dilation without gallstones Status post ERCP with removal of the stone and stent placement Patient has been weaned off pressors Continue broad-spectrum antibiotics with vancomycin and Zosyn Infectious disease doctor has been consulted Urine culture is positive for E. coli but UA does not show significant pyuria , one blood culture is positive for staph, continue broad-spectrum antibiotics 2D echo showed normal ejection fraction with no evidence of valvular vegetations 2. Acute respiratory failure [employer] following, continue vent management as per pulmonology recommendation Cont to attempt to wean off vent 3. Seizure disorder on multiple medications Continue Keppra IV No report of seizures prior to arrival, no seizures in house 4. Multiple electrolyte abnormalities Replete as needed Nephrology has been consulted 5. Transaminitis secondary to medication overdose versus shock liver versus choledocholithiasis: LFTs are trending down Hepatitis panel is negative GI consultation appreciated Monitor 6. LEONOR secondary to shock: Creatinine trending up but patient is now oliguric Nephrology consultation Hemodialysis as per nephrology Off [facility] 7. Severe pancreatitis: Likely secondary to gallstone pancreatitis versus meds , psych meds Steamfitter Supervisor has been consulted, patient is not a candidate for MRCP at this time secondary to her condition Follow up GI recommendations, status post ERCP Prophylaxis: Heparin and PPI Problems: Subjective 24 Hr Interval Summary Subjective hx not possible: pt non-verbal Exam/Review of Systems Vital Signs Vitals Vital Signs Date Time Temp Pulse Resp B/P Pulse Ox O2 Delivery O2 Flow Rate FiO2 01/13/17 13:00 118 26 110/67 98 Mechanical Ventilator 01/13/17 12:00 98.9 01/13/17 08:00 30 Intake and Output 01/12/17 01/12/17 01/13/17 15:00 23:00 07:00 Intake Total 1032.0 ml 1246 ml 462 ml Output Total 700 ml 3670 ml 435 ml Balance 332.0 ml -2424 ml 27 ml Exam Constitutional: non-verbal ENMT: intubated Respiratory: clear to auscultation Cardiovascular: regular rate and rhythm Gastrointestinal: soft, No distended Musculoskeletal: nl extremities to inspection Results Result Diagram: 01/13/17 0400 01/13/17 0400 Results 24 hrs Laboratory Tests Test 01/12/17 17:11 01/12/17 21:04 01/13/17 00:38 01/13/17 04:00 Bedside Glucose 124 136 138 White Blood Count 22.2 #H Red Blood Count 3.13 L Hemoglobin 9.3 L Hematocrit 27.7 L Mean Corpuscular Volume 88.5 Mean Corpuscular Hemoglobin 29.7 Mean Corpuscular Hemoglobin Concent 33.6 Red Cell Distribution Width 14.5 Platelet Count 236 Mean Platelet Volume 11.0 H Neutrophils % 69.0 Band Neutrophils % 15.0 H Lymphocytes % 9.0 L Monocytes % 1.0 Eosinophils % Metamyelocytes % 3.0 H Myelocytes % 2.0 H Promyelocytes % 1.0 H Neutrophils # 15.3 H Lymphocytes # 2.0 Monocytes # 0.2 L Eosinophils # Metamyelocytes # 0.7 Myelocytes # 0.4 Promyelocytes # 0.2 Polychromasia 1+ Sodium Level 129 L Potassium Level 3.5 Chloride Level 97 Carbon Dioxide Level 25 Anion Gap 11 Blood Urea Nitrogen 49 #H Creatinine 3.96 #H Glucose Level 139 Calcium Level 8.2 L Phosphorus Level 3.8 Magnesium Level 2.0 Test 01/13/17 04:50 01/13/17 08:26 01/13/17 12:16 Bedside Glucose 138 144 151 Medications Medications Current Medications Ondansetron HCl (Zofran Inj) 4 mg Q6H PRN IV NAUSEA AND/OR VOMITING; Start 01/04 at 19:30 Acetaminophen/ Hydrocodone Bitart ([place] (5/325)) 1 tab Q6H PRN PO MODERATE PAIN LEVEL 4-6; Start 01/04/17 at 19:30 Morphine Sulfate (morphine) 2 mg Q4H PRN IV SEVERE PAIN LEVEL 7-10 Last administered on 01/12/17t 11:19; Admin Dose 2 MG; Start 01/04/17 at 19:30 Docusate Sodium (Colace) 100 mg Q12H PRN PO CONSTIPATION; Start 01/04/17 at 19: 30 Magnesium Hydroxide (Milk Of Mag) 30 ml DAILY PRN PO CONSTIPATION; Start at 19:30 Sodium Biphosphate/ Sodium Phosphate (Fleet Enema) 133 ml DAILY PRN DE CONSTIPATION; Start 01/04/17 at 19:30 Heparin Sodium (Porcine) (Heparin (5000 Units/0.5 ml)) 5,000 unit Q12 SC Last administered on 01/11/17 08:33; Admin Dose 5,000 UNIT; Start 01/04/17 at 21:00; Status Future hold Lorazepam (Ativan) 0.5 mg Q6H PRN IV ANXIETY Last administered on 01/08/17 05: 58; Admin Dose 0.5 MG; Start 01/04/17 at 19:30 Hydralazine HCl (Apresoline) 10 mg Q6H PRN IV ELEVATED BLOOD PRESSURE; Start at 19:30 Nitroglycerin (Nitroglycerin (Sl Tab) 0.4 Mg) 1 tab Q5M PRN SL ANGINA; Start at 19:30 Phenobarbital (Luminal) 64.8 mg BID PO Last administered on 01/04/17 23:45; Admin Dose 64.8 MG; Start 01/04/17 at 21:00; Status Future Hold Topiramate (Topamax) 200 mg BID PO ; Start 01/05/17 at 21:00; Status Future Hold Miscellaneous Information 1 ea NOTE XX ; Start 01/04/17 at 19:30 Glucose (Glutose) 15 gm Q15M PRN PO DECREASED GLUCOSE; Start 01/04/17 at 19:30 Glucose (Glutose) 22.5 gm Q15M PRN PO DECREASED GLUCOSE; Start 01/04/17 at 19:30 Dextrose (D50w Syringe) 25 ml Q15M PRN IV DECREASED GLUCOSE Last administered on 01/08/17 05:36; Admin Dose 25 ML; Start 01/04/17 at 19:30 Dextrose (D50w Syringe) 50 ml Q15M PRN IV DECREASED GLUCOSE; Start 01/04/17 at 19:30 Glucagon (Glucagen) 1 mg Q15M PRN IM DECREASED GLUCOSE; Start 01/04/17 at 19:30 Glucose (Glutose) 15 gm Q15M PRN BUCCAL DECREASED GLUCOSE; Start 01/04/17 at 19: 30 Phenytoin (Dilantin Susp Cup) 100 mg TID PO Last administered on 01/04/17 23:44 ; Admin Dose 100 MG; Start 01/04/17 at 21:50; Status Future Hold Clonazepam 0.5 mg 0.5 mg Q8H PO Last administered on 01/04/17 23:45; Admin Dose 0.5 MG; Start 01/04/17 at 23:00; Status Future Hold Norepinephrine 16 mg/Dextrose 500 ml @ 1.87 mls/hr TITRATE IV Last administered on 01/07/17 00:23; Admin Dose 15 MLS/HR; Start 01/05/17 at 00:30 Fentanyl 100 ml @ 2.5 mls/hr TITRATE IV Last administered on 01/13/17 13:51; Admin Dose 10 MLS/HR; Start 01/05/17 at 08:39 Midazolam HCl 50 ml @ 1 mls/hr TITRATE IV Last administered on 01/13/17 13:51 ; Admin Dose 6 MLS/HR; Start 01/05/17 at 08:41 Levetiracetam 100 ml @ 400 mls/hr Q12 IVPB Last administered on 01/13/17 08: 56; Admin Dose 400 MLS/HR; Start 01/05/17 at 11:30 Vasopressin 60 unit/Dextrose 60 ml @ 1.2 mls/hr Q12H IV Last administered on 22:32; Admin Dose 2.4 MLS/HR; Start 01/05/17 at 17:30 Epinephrine 4 mg/ Sodium Chloride 250 ml @ 0 mls/hr TITRATE IV ; Start 01/05/17 at 18:30 Phenylephrine HCl/ Dextrose (Robert-Syneph/D5W) 500 ml @ 18.75 mls/ hr TITRATE IV Last administered on 01/07/17 23:21; Admin Dose 26.25 MLS/HR; Start 01/05/17 at 20:30 Acetaminophen (Tylenol Liquid) 650 mg Q4H PRN NGT PAIN AND OR ELEVATED TEMP Last administered on 01/06/17 04:29; Admin Dose 650 MG; Start 01/06/17 at 04:30 Insulin Glargine 10 unit 10 unit DAILY SC Last administered on 01/07/17 08:19; Admin Dose 10 UNIT; Start 01/06/17 at 14:00; Status Future Hold Acetaminophen 100 ml @ 400 mls/hr Q6H PRN IVPB FEVER Last administered on 01/10 09:11; Admin Dose 400 MLS/HR; Start 01/10/17 at 06:30 Vancomycin HCl/ Sodium Chloride (Vancocin/NS) 150 ml @ 75 mls/hr Q72H IVPB Last administered on 01/10/17 17:57; Admin Dose 75 MLS/HR; Start 01/10/17 at 18 :00 IV Flush (NS 10 ml) 10 ml PRN PRN IV IV PROTOCOL; Start 01/10/17 at 11:30 Amiodarone HCl (Cordarone) 200 mg BID GTB Last administered on 01/13/17 08:56 ; Admin Dose 200 MG; Start 01/11/17 at 12:00 Diagnostic Test (Pha) (Accu-Chek) 1 ea Q4H XX Last administered on 01/13/17 08 :56; Admin Dose 1 EA; Start 01/11/17 at 17:00 Epoetin Mina 89525 units 10,000 units MoWeFr@17 SC ; Start 01/13/17 at 17:00 Ferric Sodium Gluconate Complex/ Sodium Chloride (Ferrlecit/NS) 110 ml @ 110 mls/hr Q24H IVPB Last administered on 01/13/17 09:51; Admin Dose 110 MLS/HR; Start 01/12/17 at 10:00; Stop 01/16/17 at 10:59 Pantoprazole (Protonix Iv) 40 mg DAILY@06 IV Last administered on 01/13/17 05: 36; Admin Dose 40 MG; Start 01/13/17 at 06:00 Insulin Aspart (Novolog Insulin Pen) (Adult SC Insulin - Moder... Q4 SC Last administered on 01/13/17 12:18; Admin Dose 2 UNIT; Start 01/13/17 at 09:00 Miscellaneous Information VANCOMYCIN TROUGH ON @ 7... ONCE ONCE XX ; Start 01/13/17 at 17:00; Stop 01/13/17 at 17:01 Meropenem/Sodium Chloride 50 ml @ 200 mls/hr Q12H IVPB Last administered on 12:17; Admin Dose 200 MLS/HR; Start 01/13/17 at 10:00 Total Parenteral Nutrition (Tpn) 1,000 ml @ 50 mls/hr Q20H IV Last administered on 01/13/17t 13:12; Admin Dose 50 MLS/HR; Start 01/13/17 at 14:00 YING CASTAÑEDA Jan 13, 2017 15:58
[2017-01-13] MEDS ORDERED: BUPIVACAINE 0.25% (MPF) 30 ML INJ ONE (15:59)
[2017-01-13] MEDS: VANCOMYCIN 750 MG in SOD CHLORIDE 0.9% 150 ML IVPB SCH (18:00)
[2017-01-13] MEDS ORDERED: LIDOCAINE 1% (MPF) 5 ML VIAL ONE (18:08)
--- NOTE | 2017-01-13 18:13 | RADRPT ---
PROCEDURE: US guided right thoracentesis. CLINICAL INDICATION: Shortness of breath. Right pleural effusion. TECHNIQUE: Prior to the procedure, informed consent was obtained. The risks, benefits, and alternatives were e xplained to the patient or the patient's family, including but not limited to bleeding, infection, p ain, visceral or vascular damage, shock, pneumothorax, chest tube placement, air embolism, and . The patient or the patient's family understood the risks and the alternatives and wished to proce ed with the study. Informed written consent was obtained. A procedural pause was performed. The patient's name, date of , and procedure to be performed were verified. Ultrasound of the right hemithorax was performed in the axial and sagittal planes. A right pleural e ffusion is noted. Utilizing ultrasound guidance, optimal location for entry to the pleural cavity wa s ascertained. The overlying skin was prepped and draped in the usual sterile fashion. Approximate ly 10 ml of 1% Xylocaine was injected locally for pain control. Using ultrasound guidance, a 5-Fren Yueh catheter was introduced into the right pleural space without difficulty. Fluid was aspirated . COMPARISON: None. FINDINGS: Initial ultrasound demonstrates fluid in the right pleural space. Approximately 0.300 liters of hernandez guineous fluid was aspirated and sent to the laboratory. IMPRESSION: 1. Satisfactory ultrasound-guided right thoracentesis. RPTAT: QQ .Larry Box MD, Date Time Electronically viewed and signed by .Larry Box MD, on 01/13/2017 18:12 .R/
--- NOTE | 2017-01-13 18:18 | RADRPT ---
PROCEDURE: XR Chest. CLINICAL INDICATION: Shortness of breath. Post right thoracentesis. TECHNIQUE: Single frontal view. COMPARISON: Prior study done earlier the same day. FINDINGS: The endotracheal tube, nasogastric tube, right arm PICC line, and left-sided stimulator device remai n in position. There is air space disease at the lung bases and pulmonary edema, unchanged. The heart size is normal. The right pleural effusion is no longer present. There is a moderate left pleural effusion. There is no pneumothorax. IMPRESSION: 1. No pneumothorax following right thoracentesis. 2. Right pleural effusion no longer present. 3. No other change from the prior study done earlier the same day. RPTAT: QQ .Larry Box MD, MD Date Time Electronically viewed and signed by .Larry Box MD, MD on 01/13/2017 18:18 .R/
[2017-01-13] MEDS: EPOETIN 10000 UNITS/1 ML INJ (ESRD) SC SCH (18:30)
[2017-01-13 19:23] LABS: FLUID GLUCOSE 101 mg/dl; FLUID TYPE PLEURAL FLUID
[2017-01-13 19:24] LABS: FLUID TOTAL PROTEIN 4.3 g/dl
[2017-01-13 19:38] LABS: FLUID LYMPHOCYTES 4 %; FLUID MONOCYTES 6 %; FLUID NEUTROPHILS 90 %
[2017-01-13 19:39] LABS: FLD CLARITY BLOODY; FLD COLOR RED; FLD TYPE THORACENTHESIS; FLD WBC 454 /cmm; FLUID RBC EST 3+
[2017-01-13] MEDS: HEPARIN 5,000 UNIT/0.5 ML VIAL SC SCH (21:08)
[2017-01-14] VITALS (46 sets, daily range): BP systolic 96–160; BP diastolic 54–108; PULSE 101–125; RESP 21–33
[2017-01-14] MEDS: ACCU-CHEK XX SCH ×6 (01:00→21:18)
[2017-01-14] MEDS: Insulin NOVOLOG SS MODERATE Algorithm(NPO/TPN/ENTERAL FEEDS) SC SCH ×6 (01:00→21:00)
[2017-01-14 05:00] LABS: ADD SCAN DIFF NO
[2017-01-14 05:06] LABS: ABNORMAL IP MESSAGE 1; BASOPHIL # 0.1 10^3/ul (0.0-0.1); BASOPHILS % 0.5 % (0.0-2.0); EOSINOPHILS # 0.1 10^3/ul (0.0-0.5); EOSINOPHILS % 0.2 % (0.0-7.0); HEMATOCRIT 24.8 % (37.0-47.0); HEMOGLOBIN 8.3 g/dl (12.0-16.0); LYMPHOCYTES # 1.5 10^3/ul (0.8-2.9); LYMPHOCYTES % 5.7 % (15.0-51.0); MEAN CORPUSCULAR HEMOGLOBIN 30.2 pg (29.0-33.0); MEAN CORPUSCULAR HGB CONC 33.5 g/dl (32.0-37.0); MEAN CORPUSCULAR VOLUME 90.2 fl (82.0-101.0); MEAN PLATELET VOLUME 10.7 fl (7.4-10.4); MONOCYTE # 1.3 10^3/ul (0.3-0.9); NEUTROPHIL # 19.3 10^3/ul (1.6-7.5); NUCLEATED RED BLOOD CELLS% 0.2 /100WBC (0.0-0.0); PLATELET COUNT 253 10^3/UL (140-415); RED BLOOD COUNT 2.75 10^6/ul (4.20-5.40); RED CELL DISTRIBUTION WIDTH 14.8 % (11.5-14.5); WHITE BLOOD COUNT 26.4 10^3/ul (4.8-10.8)
[2017-01-14] MEDS: VASOPRESSIN 60 UNIT in DEXTROSE 5% 57 ML IV SCH ×2 (05:30→17:30)
[2017-01-14] MEDS: PANTOPRAZOLE 40 MG INJ IV SCH (05:33)
[2017-01-14 05:43] LABS: CHOL/HDL RATIO 9.7 RATIO
[2017-01-14 05:45] LABS: MAGNESIUM 1.9 mg/dl (1.7-2.5); PHOSPHORUS 3.5 mg/dl (2.5-4.9)
[2017-01-14 05:46] LABS: ALBUMIN 2.9 g/dl (3.3-4.9); ALBUMIN/GLOBULIN RATIO 0.93; BILIRUBIN,DIRECT 0.5 mg/dl (0.00-0.20); BILIRUBIN,INDIRECT 0.2 mg/dl (0-1.1); BILIRUBIN,TOTAL 0.7 mg/dl (0.2-1.3); CREATININE 3.5 mg/dl (0.44-1.00); POTASSIUM 3.6 mmol/L (3.5-5.1)
[2017-01-14] MEDS: PANTOPRAZOLE IV 80 MG in SOD CHLORIDE 0.9% 100 ML IV SCH ×2 (07:16→15:47)
[2017-01-14] MEDS: LEVETIRACETAM 1000 MG (PMX) 100 ML IVPB SCH ×2 (08:48→21:18)
[2017-01-14] MEDS: ACETAMINOPHEN 1000MG/100ML IV 100 ML IVPB PRN ×2 (08:48→18:35)
[2017-01-14] MEDS: OCTREOTIDE 500 MCG in SOD CHLORIDE 0.9% 49 ML IV SCH (08:49)
[2017-01-14] MEDS: AMIODARONE 200 MG TAB GTB SCH ×2 (08:49→21:17)
[2017-01-14] MEDS: BALSAM PERU/CASTOR OIL 60 GM TUBE TOP SCH (08:50)
--- NOTE | 2017-01-14 08:51 | PN ---
Date/Time of Note Date/Time of Note DATE: 01/14/17 TIME: 08:45 Assessment/Plan VTE Prophylaxis VTE Prophylaxis Intervention: SCD's VTE Contraindication Reason: bleeding Lines/Catheters IV Catheter Type (from Nrsg): Peripheral IV Urinary Cath still in place: Yes Reason Cath still needed: other (indicate) Assessment/Plan Assessment/Plan 61-year-old female who had come in with severe abdominal pain now managed for the following conditions: 1. Severe systemic shock with multiorgan failure secondary to severe pancreatitis superimposed by sepsis secondary to staph bacteremia, bilateral pneumonia, E. coli UTI. 2. Severe gallstone pancreatitis * Status post ERCP with sphincterectomy and removal of common bile duct stones, placement of common bile duct stent done January 13, 2017 3. Probable GI bleed as well as abdominal distention 4. Acute respiratory failure secondary to #1 patient remains ventilator dependent 5. Acute kidney injury secondary to #1 now requiring hemodialysis 6. Persistent tachycardia likely secondary to #1 on amiodarone 7. Bilateral pneumonia with bilateral effusions which could be reactive on antibiotics * Status post right-sided thoracentesis January 13, 2017 8. Normocytic normochromic anemia: Worsening 9. History of seizure disorder on Keppra 10. Chronic debility on TPN Plan: Continue Protonix and octreotide drips, hold heparin for now, CT of the abdomen and pelvis has been ordered Continue ICU monitoring and vent support and sedation as indicated Continue antibiotics per ID Continue TPN as well as gentle fluid hydration, appreciate cardiology input and management of tachycardia, patient is on amiodarone Closely monitor hemoglobin every 6 hours, transfuse as needed Continue Keppra for seizures Appreciate all consultants Further interventions per clinical course Prophylaxis: SCDs/Protonix drip Critical CARE time: Greater than 35 minutes Subjective 24 Hr Interval Summary Free Text/Dictation Patient seen and examined. Patient's NG tube has been putting out a lot of black colored drainage, patient has also had abdominal distention and rectal tube is also draining black stool. Patient has been restarted on Protonix, Sandostatin, drips. Subjective hx not possible: pt critical status Exam/Review of Systems Vital Signs Vitals Vital Signs Date Time Temp Pulse Resp B/P Pulse Ox O2 Delivery O2 Flow Rate FiO2 01/14/17 07:20 121 28 99 30 01/14/17 07:00 134/78 Mechanical Ventilator 01/14/17 04:00 99.8 Intake and Output 01/13/17 01/13/17 01/14/17 15:00 23:00 07:00 Intake Total 680 ml 480 ml 462 ml Output Total 3770 ml 1920 ml 520 ml Balance -3090 ml -1440 ml -58 ml Exam GENERAL: Intubated and comfortably sedated HEENT: BALDO, Intubated, Vent settings noted , NGT to suction black drainage LUNGS: diffusely diminished and coarse BS HEART: S1, S2. No murmur, gallops or rubs. Tachycardic ABDOMEN: Soft, distended, patient will grimace with palpation, hypoactive bowel sounds ++ GENITOURINARY: Normal female external genitalia, mild vulvar edema, Matias to bedside drainage EXTREMITIES: Mild pitting edema bilaterally, also some hand edema bilaterally NEUROLOGIC: The patient is currently sedated. Results Result Diagram: 01/14/17 0430 01/14/17 0430 Results 24 hrs Laboratory Tests Test 01/13/17 12:16 01/13/17 17:00 01/13/17 17:30 01/13/17 18:01 Bedside Glucose 151 129 Vancomycin Level Trough 10.8 Body Fluid Type PLEURAL FLUID Body Fluid Volume 300.0 Body Fluid Color RED Body Fluid Appearance BLOODY Body Fluid WBC 454 Body Fluid RBC 3+ Body Fluid Neutrophils % 90 Body Fluid Lymphocytes (%) 4 Body Fluid Monocytes % 6 Body Fluid Glucose 101 Body Fluid Total Protein 4.3 Body Fluid Lactate Dehydrogenase Test 01/13/17 21:06 01/14/17 01:59 01/14/17 04:30 01/14/17 05:34 Bedside Glucose 132 125 129 White Blood Count 26.4 H Red Blood Count 2.75 L Hemoglobin 8.3 L Hematocrit 24.8 L Mean Corpuscular Volume 90.2 Mean Corpuscular Hemoglobin 30.2 Mean Corpuscular Hemoglobin Concent 33.5 Red Cell Distribution Width 14.8 H Platelet Count 253 Mean Platelet Volume 10.7 H Neutrophils % 73.0 Lymphocytes % 5.7 L Monocytes % 5.0 Eosinophils % 0.2 Basophils % 0.5 Nucleated Red Blood Cells % 0.2 H Neutrophils # 19.3 H Lymphocytes # 1.5 Monocytes # 1.3 H Eosinophils # 0.1 Basophils # 0.1 Nucleated Red Blood Cells # 0.0 Sodium Level 142 Potassium Level 3.6 Chloride Level 100 Carbon Dioxide Level 26 Anion Gap 20 H Blood Urea Nitrogen 49 H Creatinine 3.50 H Glucose Level 122 Hemoglobin A1c 5.3 Calcium Level 8.0 L Phosphorus Level 3.5 Magnesium Level 1.9 Total Bilirubin 0.7 Direct Bilirubin 0.50 H Indirect Bilirubin 0.2 Aspartate Amino Transf (AST/SGOT) 31 Alanine Aminotransferase (ALT/SGPT) 24 Alkaline Phosphatase 169 H Total Protein 6.0 L Albumin 2.9 L Globulin 3.10 Albumin/Globulin Ratio 0.93 Triglycerides Level 256 H Cholesterol Level 117 LDL Cholesterol, Calculated 54 HDL Cholesterol 12 L Cholesterol/HDL Ratio 9.7 Lipase 421 H Medications Medications Current Medications Ondansetron HCl (Zofran Inj) 4 mg Q6H PRN IV NAUSEA AND/OR VOMITING; Start 01/04 at 19:30 Acetaminophen/ Hydrocodone Bitart ([place] (5/325)) 1 tab Q6H PRN PO MODERATE PAIN LEVEL 4-6; Start 01/04/17 at 19:30 Morphine Sulfate (morphine) 2 mg Q4H PRN IV SEVERE PAIN LEVEL 7-10 Last administered on 01/12/17 11:19; Admin Dose 2 MG; Start 01/04/17 at 19:30 Docusate Sodium (Colace) 100 mg Q12H PRN PO CONSTIPATION; Start 01/04/17 at 19: 30 Magnesium Hydroxide (Milk Of Mag) 30 ml DAILY PRN PO CONSTIPATION; Start at 19:30 Sodium Biphosphate/ Sodium Phosphate (Fleet Enema) 133 ml DAILY PRN [place] CONSTIPATION; Start 01/04/17 at 19:30 Heparin Sodium (Porcine) (Heparin (5000 Units/0.5 ml)) 5,000 unit Q12 SC Last administered on 01/13/17 21:08; Admin Dose 5,000 UNIT; Start 01/04/17 at 21:00; Status Future hold Lorazepam (Ativan) 0.5 mg Q6H PRN IV ANXIETY Last administered on 01/08/17 05: 58; Admin Dose 0.5 MG; Start 01/04/17 at 19:30 Hydralazine HCl (Apresoline) 10 mg Q6H PRN IV ELEVATED BLOOD PRESSURE; Start at 19:30 Nitroglycerin (Nitroglycerin (Sl Tab) 0.4 Mg) 1 tab Q5M PRN SL ANGINA; Start at 19:30 Phenobarbital (Luminal) 64.8 mg BID PO Last administered on 01/04/17 23:45; Admin Dose 64.8 MG; Start 01/04/17 at 21:00; Status Future Hold Topiramate (Topamax) 200 mg BID PO ; Start 01/05/17 at 21:00; Status Future Hold Miscellaneous Information 1 ea NOTE XX ; Start 01/04/17 at 19:30 Glucose (Glutose) 15 gm Q15M PRN PO DECREASED GLUCOSE; Start 01/04/17 at 19:30 Glucose (Glutose) 22.5 gm Q15M PRN PO DECREASED GLUCOSE; Start 01/04/17 at 19:30 Dextrose (D50w Syringe) 25 ml Q15M PRN IV DECREASED GLUCOSE Last administered on 01/08/17 05:36; Admin Dose 25 ML; Start 01/04/17 at 19:30 Dextrose (D50w Syringe) 50 ml Q15M PRN IV DECREASED GLUCOSE; Start 01/04/17 at 19:30 Glucagon (Glucagen) 1 mg Q15M PRN IM DECREASED GLUCOSE; Start 01/04/17 at 19:30 Glucose (Glutose) 15 gm Q15M PRN BUCCAL DECREASED GLUCOSE; Start 01/04/17 at 19: 30 Phenytoin (Dilantin Susp Cup) 100 mg TID PO Last administered on 01/04/17 23:44 ; Admin Dose 100 MG; Start 01/04/17 at 21:50; Status Future Hold Clonazepam 0.5 mg 0.5 mg Q8H PO Last administered on 01/04/17 23:45; Admin Dose 0.5 MG; Start 01/04/17 at 23:00; Status Future Hold Norepinephrine 16 mg/Dextrose 500 ml @ 1.87 mls/hr TITRATE IV Last administered on 01/07/17 00:23; Admin Dose 15 MLS/HR; Start 01/05/17 at 00:30 Fentanyl 100 ml @ 2.5 mls/hr TITRATE IV Last administered on 01/13/17 23:42; Admin Dose 10 MLS/HR; Start 01/05/17 at 08:39 Midazolam HCl 50 ml @ 1 mls/hr TITRATE IV Last administered on 01/13/17 22:54 ; Admin Dose 6 MLS/HR; Start 01/05/17 at 08:41 Levetiracetam 100 ml @ 400 mls/hr Q12 IVPB Last administered on 01/13/17 21: 05; Admin Dose 400 MLS/HR; Start 01/05/17 at 11:30 Vasopressin 60 unit/Dextrose 60 ml @ 1.2 mls/hr Q12H IV Last administered on 22:32; Admin Dose 2.4 MLS/HR; Start 01/05/17 at 17:30 Epinephrine 4 mg/ Sodium Chloride 250 ml @ 0 mls/hr TITRATE IV ; Start 01/05/17 at 18:30 Phenylephrine HCl/ Dextrose (Robert-Syneph/D5W) 500 ml @ 18.75 mls/ hr TITRATE IV Last administered on 01/07/17 23:21; Admin Dose 26.25 MLS/HR; Start 01/05/17 at 20:30 Acetaminophen (Tylenol Liquid) 650 mg Q4H PRN NGT PAIN AND OR ELEVATED TEMP Last administered on 01/06/17 04:29; Admin Dose 650 MG; Start 01/06/17 at 04:30 Insulin Glargine 10 unit 10 unit DAILY SC Last administered on 01/07/17 08:19; Admin Dose 10 UNIT; Start 01/06/17 at 14:00; Status Future Hold Acetaminophen 100 ml @ 400 mls/hr Q6H PRN IVPB FEVER Last administered on 01/10 09:11; Admin Dose 400 MLS/HR; Start 01/10/17 at 06:30 Vancomycin HCl/ Sodium Chloride (Vancocin/NS) 150 ml @ 75 mls/hr Q72H IVPB Last administered on 01/10/17 17:57; Admin Dose 75 MLS/HR; Start 01/10/17 at 18 :00 IV Flush (NS 10 ml) 10 ml PRN PRN IV IV PROTOCOL; Start 01/10/17 at 11:30 Amiodarone HCl (Cordarone) 200 mg BID GTB Last administered on 01/13/17 21:05 ; Admin Dose 200 MG; Start 01/11/17 at 12:00 Diagnostic Test (Pha) (Accu-Chek) 1 ea Q4H XX Last administered on 01/14/17 05 :35; Admin Dose 1 EA; Start 01/11/17 at 17:00 Epoetin Mina 51374 units 10,000 units MoWeFr@17 SC Last administered on 18:30; Admin Dose 10,000 UNITS; Start 01/13/17 at 17:00 Ferric Sodium Gluconate Complex/ Sodium Chloride (Ferrlecit/NS) 110 ml @ 110 mls/hr Q24H IVPB Last administered on 01/13/17 09:51; Admin Dose 110 MLS/HR; Start 01/12/17 at 10:00; Stop 01/16/17 at 10:59 Insulin Aspart (Adult SC Insulin - Moder... Q4 SC Last administered on 12:18; Admin Dose 2 UNIT; Start 01/13/17 at 09:00 Meropenem/Sodium Chloride 50 ml @ 200 mls/hr Q12H IVPB Last administered on 22:15; Admin Dose 200 MLS/HR; Start 01/13/17 at 10:00 Total Parenteral Nutrition 1,000 ml @ 50 mls/hr Q20H IV Last administered on 13:12; Admin Dose 50 MLS/HR; Start 01/13/17 at 14:00 Pantoprazole 80 mg/Sodium Chloride 100 ml @ 10 mls/hr Q10H IV Last administered on 01/14/17 07:16; Admin Dose 10 MLS/HR; Start 01/14/17 at 06:00 Octreotide Acetate/Sodium Chloride (Sandostatin/NS) 50 ml @ 2.5 mls/hr Q20H IV ; Start 01/14/17 at 06:30 Procedures Procedures PROCEDURE: XR Chest 1 View. CLINICAL INDICATION: Shortness of breath TECHNIQUE: AP view of the chest was obtained. COMPARISON: Yesterday FINDINGS: The cardiomediastinal silhouette is within normal limits. Endotracheal and nasogastric tubes are stable and appear in grossly appropriate location. Stimulator device over the left chest with lead in the lower neck is unchanged. Right-sided PICC line is stable. The lungs are hypoinflated. Central pulmonary vascular congestion and interstitial prominence is unchanged. Retrocardiac opacity is stable. Right mid and lower lung infiltrates, combined small pleural effusion are stable. The osseous structures are unchanged. IMPRESSION: Hypoinflated lungs. Stable central pulmonary vascular congestion and interstitial prominence in both lungs. Stable retrocardiac opacity that may reflect left lower lobe atelectasis or infiltrate combined with small pleural effusion. Stable right mid and lower lung infiltrates, possibly combined with small pleural effusion. RPTAT: AA .Stephane Navas MD, MD Date Time Electronically viewed and signed by .Stephane Navas MD, MD on 01/14/2017 09:27 .P/ CC: AMPARO VALERIO MD, DEBRA HERRING Jan 14, 2017 08:51 .P/ CC: AMPARO VALERIO MD, DEBRA HERRING Jan 14, 2017 08:51
[2017-01-14] MEDS: HEPARIN 5,000 UNIT/0.5 ML VIAL SC SCH ×2 (09:00→21:00)
--- NOTE | 2017-01-14 09:28 | RADRPT ---
PROCEDURE: XR Chest 1 View. CLINICAL INDICATION: Shortness of breath TECHNIQUE: AP view of the chest was obtained. COMPARISON: Yesterday FINDINGS: The cardiomediastinal silhouette is within normal limits. Endotracheal and nasogastric tubes are sta ble and appear in grossly appropriate location. Stimulator device over the left chest with lead in the lower neck is unchanged. Right-sided PICC line is stable. The lungs are hypoinflated. Central pulmonary vascular congestion and interstitial prominence is unchanged. Retrocardiac opacity is st able. Right mid and lower lung infiltrates, combined small pleural effusion are stable. The osseous structures are unchanged. IMPRESSION: Hypoinflated lungs. Stable central pulmonary vascular congestion and interstitial prominence in both lungs. Stable retrocardiac opacity that may reflect left lower lobe atelectasis or infiltrate combined with small pleural effusion. Stable right mid and lower lung infiltrates, possibly combined with small pleural effusion. RPTAT: AA .Stephane Navas MD, MD Date Time Electronically viewed and signed by .Stephane Navas MD, on 01/14/2017 09:27 .P/
[2017-01-14] MEDS: FENTAnyl (DRIP) 1000 mcg/100mL 100 ML IV SCH ×2 (09:34→19:41)
--- NOTE | 2017-01-14 10:10 | CONS ---
Date/Time of Note Date/Time of Note DATE: 01/14/17 TIME: 10:10 Assessment/Plan Assessment/Plan Chief Complaint/Hosp Course ID PROGRESS NOTE TOTAL ABX DAY #9=> VANCO IV + MERREM 24H INTERVAL SUMMARY/HOSPITAL COURSE * Noncommunicative on the Vent - sedated, no fevers, VSS, looks comfortable * Chest x-ray this morning revealed stable central pulmonary vascular congestion , stable bilateral perihilar and lower lungs infiltrates * Microbiology: Blood culture on admission grew coag negative staph species urine culture grew E. coli repeat blood and urine culture had been negative PHYSICAL EXAMINATION: GENERAL: No fevers, VSS, NAD HEENT: Atraumatic, Unremarkable except ETT-> Secure to Vent NECK: Trach midline CHEST: Rise symmetrical w/course BS over vent tubing ABDOMEN: Soft, (+)BS EXTREMITIES: Warm, moves extremities ID ASSESSMENT: 61 yo F admit with: 1. Sepsis, status post shock => IMPROVING = multifactorial per etiologies below 2. Severe, acute pancreatitis 3. Choledocholithiasis, status post ERCP 01/12/17 with removal of the stone and stent placement 4. Coag negative staph bacteremia, likely contaminant 5. Acute respiratory failure 6. Acute renal failure requiring hemodialysis 7. Status post GNR urinary tract infection (-) MRSA Nares screen INVASIVES: PICC. ETT. NGT, FC, R-FEM EPIFANIO ABX ALLERGY: KNDA CURRENT ABX: TOTAL ABX DAY #9=> VANCO IV + MERREM ID PLAN: * Continue current ABX over the weekend * ID team will continue to monitor . Problems: Consultation Date/Type/Reason Admit Date/Time Jan 04, 2017 at 19:10 Initial Consult Date 01/11/17 Type of Consultation: ID Referring Provider: YING CASTAÑEDA Exam/Review of Systems Vital Signs Vitals Vital Signs Date Time Temp Pulse Resp B/P Pulse Ox O2 Delivery O2 Flow Rate FiO2 01/14/17 09:30 119 26 99 30 01/14/17 07:00 134/78 Mechanical Ventilator 01/14/17 04:00 99.8 Intake and Output 01/13/17 01/13/17 01/14/17 15:00 23:00 07:00 Intake Total 680 ml 480 ml 462 ml Output Total 3770 ml 1920 ml 520 ml Balance -3090 ml -1440 ml -58 ml Results Result Diagram: 01/14/17 0430 01/14/17 0430 Results 24 hrs Laboratory Tests Test 01/13/17 12:16 01/13/17 17:00 01/13/17 17:30 01/13/17 18:01 Bedside Glucose 151 129 Vancomycin Level Trough 10.8 Body Fluid Type PLEURAL FLUID Body Fluid Volume 300.0 Body Fluid Color RED Body Fluid Appearance BLOODY Body Fluid WBC 454 Body Fluid RBC 3+ Body Fluid Neutrophils % 90 Body Fluid Lymphocytes (%) 4 Body Fluid Monocytes % 6 Body Fluid Glucose 101 Body Fluid Total Protein 4.3 Body Fluid Lactate Dehydrogenase Test 01/13/17 21:06 01/14/17 01:59 01/14/17 04:30 01/14/17 05:34 Bedside Glucose 132 125 129 White Blood Count 26.4 H Red Blood Count 2.75 L Hemoglobin 8.3 L Hematocrit 24.8 L Mean Corpuscular Volume 90.2 Mean Corpuscular Hemoglobin 30.2 Mean Corpuscular Hemoglobin Concent 33.5 Red Cell Distribution Width 14.8 H Platelet Count 253 Mean Platelet Volume 10.7 H Neutrophils % 73.0 Lymphocytes % 5.7 L Monocytes % 5.0 Eosinophils % 0.2 Basophils % 0.5 Nucleated Red Blood Cells % 0.2 H Neutrophils # 19.3 H Lymphocytes # 1.5 Monocytes # 1.3 H Eosinophils # 0.1 Basophils # 0.1 Nucleated Red Blood Cells # 0.0 Sodium Level 142 Potassium Level 3.6 Chloride Level 100 Carbon Dioxide Level 26 Anion Gap 20 H Blood Urea Nitrogen 49 H Creatinine 3.50 H Glucose Level 122 Hemoglobin A1c 5.3 Calcium Level 8.0 L Phosphorus Level 3.5 Magnesium Level 1.9 Total Bilirubin 0.7 Direct Bilirubin 0.50 H Indirect Bilirubin 0.2 Aspartate Amino Transf (AST/SGOT) 31 Alanine Aminotransferase (ALT/SGPT) 24 Alkaline Phosphatase 169 H Total Protein 6.0 L Albumin 2.9 L Globulin 3.10 Albumin/Globulin Ratio 0.93 Triglycerides Level 256 H Cholesterol Level 117 LDL Cholesterol, Calculated 54 HDL Cholesterol 12 L Cholesterol/HDL Ratio 9.7 Lipase 421 H Test 01/14/17 08:47 Bedside Glucose 120 Medications Medications Current Medications Ondansetron HCl (Zofran Inj) 4 mg Q6H PRN IV NAUSEA AND/OR VOMITING; Start 01/04 at 19:30 Acetaminophen/ Hydrocodone Bitart ([place] (5/325)) 1 tab Q6H PRN PO MODERATE PAIN LEVEL 4-6; Start 01/04/17 at 19:30 Morphine Sulfate (morphine) 2 mg Q4H PRN IV SEVERE PAIN LEVEL 7-10 Last administered on 01/12/17 11:19; Admin Dose 2 MG; Start 01/04/17 at 19:30 Docusate Sodium (Colace) 100 mg Q12H PRN PO CONSTIPATION; Start 01/04/17 at 19: 30 Magnesium Hydroxide (Milk Of Mag) 30 ml DAILY PRN PO CONSTIPATION; Start at 19:30 Sodium Biphosphate/ Sodium Phosphate (Fleet Enema) 133 ml DAILY PRN [place] CONSTIPATION; Start 01/04/17 at 19:30 Heparin Sodium (Porcine) (Heparin (5000 Units/0.5 ml)) 5,000 unit Q12 SC Last administered on 01/13/17 21:08; Admin Dose 5,000 UNIT; Start 01/04/17 at 21:00; Status Future hold Lorazepam (Ativan) 0.5 mg Q6H PRN IV ANXIETY Last administered on 01/08/17 05: 58; Admin Dose 0.5 MG; Start 01/04/17 at 19:30 Hydralazine HCl (Apresoline) 10 mg Q6H PRN IV ELEVATED BLOOD PRESSURE; Start at 19:30 Nitroglycerin (Nitroglycerin (Sl Tab) 0.4 Mg) 1 tab Q5M PRN SL ANGINA; Start at 19:30 Phenobarbital (Luminal) 64.8 mg BID PO Last administered on 01/04/17 23:45; Admin Dose 64.8 MG; Start 01/04/17 at 21:00; Status Future Hold Topiramate (Topamax) 200 mg BID PO ; Start 01/05/17 at 21:00; Status Future Hold Miscellaneous Information 1 ea NOTE XX ; Start 01/04/17 at 19:30 Glucose (Glutose) 15 gm Q15M PRN PO DECREASED GLUCOSE; Start 01/04/17 at 19:30 Glucose (Glutose) 22.5 gm Q15M PRN PO DECREASED GLUCOSE; Start 01/04/17 at 19:30 Dextrose (D50w Syringe) 25 ml Q15M PRN IV DECREASED GLUCOSE Last administered on 01/08/17 05:36; Admin Dose 25 ML; Start 01/04/17 at 19:30 Dextrose (D50w Syringe) 50 ml Q15M PRN IV DECREASED GLUCOSE; Start 01/04/17 at 19:30 Glucagon (Glucagen) 1 mg Q15M PRN IM DECREASED GLUCOSE; Start 01/04/17 at 19:30 Glucose (Glutose) 15 gm Q15M PRN BUCCAL DECREASED GLUCOSE; Start 01/04/17 at 19: 30 Phenytoin (Dilantin Susp Cup) 100 mg TID PO Last administered on 01/04/17 23:44 ; Admin Dose 100 MG; Start 01/04/17 at 21:50; Status Future Hold Clonazepam 0.5 mg 0.5 mg Q8H PO Last administered on 01/04/17 23:45; Admin Dose 0.5 MG; Start 01/04/17 at 23:00; Status Future Hold Norepinephrine 16 mg/Dextrose 500 ml @ 1.87 mls/hr TITRATE IV Last administered on 01/07/17 00:23; Admin Dose 15 MLS/HR; Start 01/05/17 at 00:30 Fentanyl 100 ml @ 2.5 mls/hr TITRATE IV Last administered on 01/14/17 09:34; Admin Dose 10 MLS/HR; Start 01/05/17 at 08:39 Midazolam HCl 50 ml @ 1 mls/hr TITRATE IV Last administered on 01/13/17 22:54 ; Admin Dose 6 MLS/HR; Start 01/05/17 at 08:41 Levetiracetam 100 ml @ 400 mls/hr Q12 IVPB Last administered on 01/14/17 08: 48; Admin Dose 400 MLS/HR; Start 01/05/17 at 11:30 Vasopressin 60 unit/Dextrose 60 ml @ 1.2 mls/hr Q12H IV Last administered on 22:32; Admin Dose 2.4 MLS/HR; Start 01/05/17 at 17:30 Epinephrine 4 mg/ Sodium Chloride 250 ml @ 0 mls/hr TITRATE IV ; Start 01/05/17 at 18:30 Phenylephrine HCl/ Dextrose (Robert-Syneph/D5W) 500 ml @ 18.75 mls/ hr TITRATE IV Last administered on 01/07/17 23:21; Admin Dose 26.25 MLS/HR; Start 01/05/17 at 20:30 Acetaminophen (Tylenol Liquid) 650 mg Q4H PRN NGT PAIN AND OR ELEVATED TEMP Last administered on 01/06/17 04:29; Admin Dose 650 MG; Start 01/06/17 at 04:30 Insulin Glargine 10 unit 10 unit DAILY SC Last administered on 01/07/17 08:19; Admin Dose 10 UNIT; Start 01/06/17 at 14:00; Status Future Hold Acetaminophen 100 ml @ 400 mls/hr Q6H PRN IVPB FEVER Last administered on 01/14 08:48; Admin Dose 400 MLS/HR; Start 01/10/17 at 06:30 Vancomycin HCl/ Sodium Chloride (Vancocin/NS) 150 ml @ 75 mls/hr Q72H IVPB Last administered on 01/10/17 17:57; Admin Dose 75 MLS/HR; Start 01/10/17 at 18 :00 IV Flush (NS 10 ml) 10 ml PRN PRN IV IV PROTOCOL; Start 01/10/17 at 11:30 Amiodarone HCl (Cordarone) 200 mg BID GTB Last administered on 01/14/17 08:49 ; Admin Dose 200 MG; Start 01/11/17 at 12:00 Diagnostic Test (Pha) (Accu-Chek) 1 ea Q4H XX Last administered on 01/14/17 05 :35; Admin Dose 1 EA; Start 01/11/17 at 17:00 Epoetin Mina 96355 units 10,000 units [email or web address]@[email or web address] SC Last administered on 18:30; Admin Dose 10,000 UNITS; Start 01/13/17 at 17:00 Ferric Sodium Gluconate Complex/ Sodium Chloride (Ferrlecit/NS) 110 ml @ 110 mls/hr Q24H IVPB Last administered on 01/13/17 09:51; Admin Dose 110 MLS/HR; Start 01/12/17 at 10:00; Stop 01/16/17 at 10:59 Insulin Aspart (Adult SC Insulin - Moder... Q4 SC Last administered on 12:18; Admin Dose 2 UNIT; Start 01/13/17 at 09:00 Meropenem/Sodium Chloride 50 ml @ 200 mls/hr Q12H IVPB Last administered on 22:15; Admin Dose 200 MLS/HR; Start 01/13/17 at 10:00 Total Parenteral Nutrition 1,000 ml @ 50 mls/hr Q20H IV Last administered on 13:12; Admin Dose 50 MLS/HR; Start 01/13/17 at 14:00 Pantoprazole 80 mg/Sodium Chloride 100 ml @ 10 mls/hr Q10H IV Last administered on 01/14/17 07:16; Admin Dose 10 MLS/HR; Start 01/14/17 at 06:00 Octreotide Acetate/Sodium Chloride (Sandostatin/NS) 50 ml @ 2.5 mls/hr Q20H IV Last administered on 01/14/17 08:49; Admin Dose 2.5 MLS/HR; Start 01/14/17 at 06:30 GAYATRI SALDIVAR NP Jan 14, 2017 10:10
[2017-01-14] MEDS: SOD FERRIC GLUC COMPLX 125 MG in SOD CHLORIDE 0.9% 100 ML IVPB SCH (10:35)
[2017-01-14] MEDS: TPN 1,000 ML IV SCH ×2 (10:36→14:17)
[2017-01-14] MEDS: MEROPENEM 500MG/50 ML (PMX) 50 ML IVPB SCH ×2 (10:36→22:07)
--- NOTE | 2017-01-14 11:48 | CONS ---
Date/Time of Note Date/Time of Note DATE: 01/14/17 TIME: 11:46 Consult Date/Type/Reason Admit Date/Time Jan 04, 2017 at 19:10 Initial Consult Date 01/05/17 Type of Consultation: Pulmonary Ordering Provider: YING CASTAÑEDA Patient remains on mechanical ventilation. Intermittent agitation. Febrile overnight T-max 101. Remains tachycardic. Continues to have significant nasogastric output. Thoracentesis was performed with 300 cc removed from right lung. Continues to have abdominal pain on palpation. Objective Vital Signs Date Time Temp Pulse Resp B/P Pulse Ox O2 Delivery O2 Flow Rate FiO2 01/14/17 11:39 112 26 97 30 01/14/17 10:00 128/77 Mechanical Ventilator 01/14/17 08:00 101.1 Intake and Output 01/13/17 01/13/17 01/14/17 15:00 23:00 07:00 Intake Total 680 ml 480 ml 462 ml Output Total 3770 ml 1920 ml 520 ml Balance -3090 ml -1440 ml -58 ml Exam Exam GENERAL: Chronically ill-appearing elderly lady on mechanical ventilation, awake and alert follows simple commands VITAL SIGNS: per chart NECK: Supple. No JVD or lymphadenopathy. CARDIAC EXAM: S1, S2. No added sounds or murmurs. CHEST: Diminished air entry bilaterally poor effort ABDOMEN: Tender but no guarding or rebound. EXTREMITIES: No cyanosis, clubbing edema +2 NEUROLOGIC: Generalized weakness. Results/Medications Result Diagram: 01/14/17 0430 01/14/17 0430 Results 24 hrs Laboratory Tests Test 01/13/17 12:16 01/13/17 17:00 01/13/17 17:30 01/13/17 18:01 Bedside Glucose 151 129 Vancomycin Level Trough 10.8 Body Fluid Type PLEURAL FLUID Body Fluid Volume 300.0 Body Fluid Color RED Body Fluid Appearance BLOODY Body Fluid WBC 454 Body Fluid RBC 3+ Body Fluid Neutrophils % 90 Body Fluid Lymphocytes (%) 4 Body Fluid Monocytes % 6 Body Fluid Glucose 101 Body Fluid Total Protein 4.3 Body Fluid Lactate Dehydrogenase Test 01/13/17 21:06 01/14/17 01:59 01/14/17 04:30 01/14/17 05:34 Bedside Glucose 132 125 129 White Blood Count 26.4 H Red Blood Count 2.75 L Hemoglobin 8.3 L Hematocrit 24.8 L Mean Corpuscular Volume 90.2 Mean Corpuscular Hemoglobin 30.2 Mean Corpuscular Hemoglobin Concent 33.5 Red Cell Distribution Width 14.8 H Platelet Count 253 Mean Platelet Volume 10.7 H Neutrophils % 73.0 Lymphocytes % 5.7 L Monocytes % 5.0 Eosinophils % 0.2 Basophils % 0.5 Nucleated Red Blood Cells % 0.2 H Neutrophils # 19.3 H Lymphocytes # 1.5 Monocytes # 1.3 H Eosinophils # 0.1 Basophils # 0.1 Nucleated Red Blood Cells # 0.0 Sodium Level 142 Potassium Level 3.6 Chloride Level 100 Carbon Dioxide Level 26 Anion Gap 20 H Blood Urea Nitrogen 49 H Creatinine 3.50 H Glucose Level 122 Hemoglobin A1c 5.3 Calcium Level 8.0 L Phosphorus Level 3.5 Magnesium Level 1.9 Total Bilirubin 0.7 Direct Bilirubin 0.50 H Indirect Bilirubin 0.2 Aspartate Amino Transf (AST/SGOT) 31 Alanine Aminotransferase (ALT/SGPT) 24 Alkaline Phosphatase 169 H Total Protein 6.0 L Albumin 2.9 L Globulin 3.10 Albumin/Globulin Ratio 0.93 Triglycerides Level 256 H Cholesterol Level 117 LDL Cholesterol, Calculated 54 HDL Cholesterol 12 L Cholesterol/HDL Ratio 9.7 Lipase 421 H Test 01/14/17 08:47 Bedside Glucose 120 Medications Current Medications Ondansetron HCl (Zofran Inj) 4 mg Q6H PRN IV NAUSEA AND/OR VOMITING; Start 01/04 at 19:30 Acetaminophen/ Hydrocodone Bitart ([place] (5/325)) 1 tab Q6H PRN PO MODERATE PAIN LEVEL 4-6; Start 01/04/17 at 19:30 Morphine Sulfate (morphine) 2 mg Q4H PRN IV SEVERE PAIN LEVEL 7-10 Last administered on 01/12/17t 11:19; Admin Dose 2 MG; Start 01/04/17 at 19:30 Docusate Sodium (Colace) 100 mg Q12H PRN PO CONSTIPATION; Start 01/04/17 at 19: 30 Magnesium Hydroxide (Milk Of Mag) 30 ml DAILY PRN PO CONSTIPATION; Start at 19:30 Sodium Biphosphate/ Sodium Phosphate (Fleet Enema) 133 ml DAILY PRN [place] CONSTIPATION; Start 01/04/17 at 19:30 Heparin Sodium (Porcine) (Heparin (5000 Units/0.5 ml)) 5,000 unit Q12 SC Last administered on 01/13/17 21:08; Admin Dose 5,000 UNIT; Start 01/04/17 at 21:00; Status Future hold Lorazepam (Ativan) 0.5 mg Q6H PRN IV ANXIETY Last administered on 01/08/17 05: 58; Admin Dose 0.5 MG; Start 01/04/17 at 19:30 Hydralazine HCl (Apresoline) 10 mg Q6H PRN IV ELEVATED BLOOD PRESSURE; Start at 19:30 Nitroglycerin (Nitroglycerin (Sl Tab) 0.4 Mg) 1 tab Q5M PRN SL ANGINA; Start at 19:30 Phenobarbital (Luminal) 64.8 mg BID PO Last administered on 01/04/17 23:45; Admin Dose 64.8 MG; Start 01/04/17 at 21:00; Status Future Hold Topiramate (Topamax) 200 mg BID PO ; Start 01/05/17 at 21:00; Status Future Hold Miscellaneous Information 1 ea NOTE XX ; Start 01/04/17 at 19:30 Glucose (Glutose) 15 gm Q15M PRN PO DECREASED GLUCOSE; Start 01/04/17 at 19:30 Glucose (Glutose) 22.5 gm Q15M PRN PO DECREASED GLUCOSE; Start 01/04/17 at 19:30 Dextrose (D50w Syringe) 25 ml Q15M PRN IV DECREASED GLUCOSE Last administered on 01/08/17 05:36; Admin Dose 25 ML; Start 01/04/17 at 19:30 Dextrose (D50w Syringe) 50 ml Q15M PRN IV DECREASED GLUCOSE; Start 01/04/17 at 19:30 Glucagon (Glucagen) 1 mg Q15M PRN IM DECREASED GLUCOSE; Start 01/04/17 at 19:30 Glucose (Glutose) 15 gm Q15M PRN BUCCAL DECREASED GLUCOSE; Start 01/04/17 at 19: 30 Phenytoin (Dilantin Susp Cup) 100 mg TID PO Last administered on 01/04/17 23:44 ; Admin Dose 100 MG; Start 01/04/17 at 21:50; Status Future Hold Clonazepam 0.5 mg 0.5 mg Q8H PO Last administered on 01/04/17 23:45; Admin Dose 0.5 MG; Start 01/04/17 at 23:00; Status Future Hold Norepinephrine 16 mg/Dextrose 500 ml @ 1.87 mls/hr TITRATE IV Last administered on 01/07/17 00:23; Admin Dose 15 MLS/HR; Start 01/05/17 at 00:30 Fentanyl 100 ml @ 2.5 mls/hr TITRATE IV Last administered on 01/14/17 09:34; Admin Dose 10 MLS/HR; Start 01/05/17 at 08:39 Midazolam HCl 50 ml @ 1 mls/hr TITRATE IV Last administered on 01/13/17 22:54 ; Admin Dose 6 MLS/HR; Start 01/05/17 at 08:41 Levetiracetam 100 ml @ 400 mls/hr Q12 IVPB Last administered on 01/14/17 08: 48; Admin Dose 400 MLS/HR; Start 01/05/17 at 11:30 Vasopressin 60 unit/Dextrose 60 ml @ 1.2 mls/hr Q12H IV Last administered on 22:32; Admin Dose 2.4 MLS/HR; Start 01/05/17 at 17:30 Epinephrine 4 mg/ Sodium Chloride 250 ml @ 0 mls/hr TITRATE IV ; Start 01/05/17 at 18:30 Phenylephrine HCl/ Dextrose (Robert-Syneph/D5W) 500 ml @ 18.75 mls/ hr TITRATE IV Last administered on 01/07/17 23:21; Admin Dose 26.25 MLS/HR; Start 01/05/17 at 20:30 Acetaminophen (Tylenol Liquid) 650 mg Q4H PRN NGT PAIN AND OR ELEVATED TEMP Last administered on 01/06/17 04:29; Admin Dose 650 MG; Start 01/06/17 at 04:30 Insulin Glargine 10 unit 10 unit DAILY SC Last administered on 01/07/17 08:19; Admin Dose 10 UNIT; Start 01/06/17 at 14:00; Status Future Hold Acetaminophen 100 ml @ 400 mls/hr Q6H PRN IVPB FEVER Last administered on 01/14 08:48; Admin Dose 400 MLS/HR; Start 01/10/17 at 06:30 Vancomycin HCl/ Sodium Chloride (Vancocin/NS) 150 ml @ 75 mls/hr Q72H IVPB Last administered on 01/10/17 17:57; Admin Dose 75 MLS/HR; Start 01/10/17 at 18 :00 IV Flush (NS 10 ml) 10 ml PRN PRN IV IV PROTOCOL; Start 01/10/17 at 11:30 Amiodarone HCl (Cordarone) 200 mg BID GTB Last administered on 01/14/17 08:49 ; Admin Dose 200 MG; Start 01/11/17 at 12:00 Diagnostic Test (Pha) (Accu-Chek) 1 ea Q4H XX Last administered on 01/14/17 05 :35; Admin Dose 1 EA; Start 01/11/17 at 17:00 Epoetin Mina 34992 units 10,000 units [id number]@[email or web address] SC Last administered on 18:30; Admin Dose 10,000 UNITS; Start 01/13/17 at 17:00 Ferric Sodium Gluconate Complex/ Sodium Chloride (Ferrlecit/NS) 110 ml @ 110 mls/hr Q24H IVPB Last administered on 01/14/17 10:35; Admin Dose 110 MLS/HR; Start 01/12/17 at 10:00; Stop 01/16/17 at 10:59 Insulin Aspart (Adult SC Insulin - Moder... Q4 SC Last administered on 12:18; Admin Dose 2 UNIT; Start 01/13/17 at 09:00 Meropenem/Sodium Chloride 50 ml @ 200 mls/hr Q12H IVPB Last administered on 10:36; Admin Dose 200 MLS/HR; Start 01/13/17 at 10:00 Total Parenteral Nutrition 1,000 ml @ 50 mls/hr Q20H IV Last administered on 10:36; Admin Dose 50 MLS/HR; Start 01/13/17 at 14:00 Pantoprazole 80 mg/Sodium Chloride 100 ml @ 10 mls/hr Q10H IV Last administered on 01/14/17 07:16; Admin Dose 10 MLS/HR; Start 01/14/17 at 06:00 Octreotide Acetate/Sodium Chloride (Sandostatin/NS) 50 ml @ 2.5 mls/hr Q20H IV Last administered on 01/14/17 08:49; Admin Dose 2.5 MLS/HR; Start 01/14/17 at 06:30 Assessment/Plan Chief Complaint/Hosp Course IMP: 1. Severe gallstone pancreatitis with septic shock, now slowly improving. Significant persistent abdominal pain with persistent leukocytosis concerning for possible pseudocyst 2. Metabolic acidosis secondary to above and ARF 3. Renal failure likely ATN now requiring hemodialysis 4. Hypoxemic respiratory failure secondary to above, bilateral pleural effusions with evidence of pulmonary edema 5. History of seizure disorder RECS: 1. Hemodialysis today per nephrology 2. Continue mechanical ventilation, not for weaning at present. Await pleural fluid studies. 3. Broad-spectrum antibiotic coverage 4. Nasogastric tube to suction 5. GI recommendations. CT chest and abdomen today. Evaluate for pseudocyst and pleural effusion. Consider general surgery consult. 6. Continue DVT and GI prophylaxis 35 min cc time Problems: AMPARO VALERIO MD, [facility] Jan 14, 2017 11:48
[2017-01-14] MEDS ORDERED: BARIUM SULF 2% 450 ML BTL (BERRY SMOOTHIE) PO ONE (12:00)
--- NOTE | 2017-01-14 14:15 | CONS ---
Date/Time of Note Date/Time of Note DATE: 01/14/17 TIME: 14:11 Assessment/Plan Assessment/Plan Additional Assessment/Plan 1. Severe gallstone pancreatitis with septic shock, now slowly improving. Significant persistent abdominal pain with persistent leukocytosis concerning for possible pseudocyst. ct requested and pending. may need surgical eval 2. Metabolic acidosis secondary to above and ARF 3. Renal failure likely ATN now requiring hemodialysis: s/p hd yesterday. for hd again in am 4. Hypoxemic respiratory failure secondary to above: cont garessive hd and vent support. hd in am 5. History of seizure disorder 6- A fib; followed by cards 7-possible GIB: repeat cbc pending. on ppi and octreotide/ egd/ blood products per gi Consultation Date/Type/Reason Admit Date/Time Jan 04, 2017 at 19:10 Initial Consult Date 01/11/17 Type of Consultation: Pulmonary Referring Provider: YING CASTAÑEDA 24 HR Interval Summary Free Text/Dictation not doing well. cont a fib with tacycardia, now with gib and hb dropping. cont to have abd distention and pain. remains on vent. poorly responsive Exam/Review of Systems Vital Signs Vitals Vital Signs Date Time Temp Pulse Resp B/P Pulse Ox O2 Delivery O2 Flow Rate FiO2 01/14/17 13:28 110 26 97 30 01/14/17 12:00 99.6 101/61 Mechanical Ventilator Intake and Output 01/13/17 01/13/17 01/14/17 15:00 23:00 07:00 Intake Total 680 ml 480 ml 462 ml Output Total 3770 ml 1920 ml 520 ml Balance -3090 ml -1440 ml -58 ml Exam Constitutional: other (poorly responsive, orally intubated) Head: normocephalic Eyes: nl conjunctiva Neck: non-tender, supple Respiratory: diminished breath sounds Cardiovascular: edema, irregular rhythm, regular rate and rhythm Gastrointestinal: distended Results Result Diagram: 01/14/17 0430 01/14/17 0430 Results 24 hrs Laboratory Tests Test 01/13/17 17:00 01/13/17 17:30 01/13/17 18:01 01/13/17 21:06 Vancomycin Level Trough 10.8 Body Fluid Type PLEURAL FLUID Body Fluid Volume 300.0 Body Fluid Color RED Body Fluid Appearance BLOODY Body Fluid WBC 454 Body Fluid RBC 3+ Body Fluid Neutrophils % 90 Body Fluid Lymphocytes (%) 4 Body Fluid Monocytes % 6 Body Fluid Glucose 101 Body Fluid Total Protein 4.3 Body Fluid Lactate Dehydrogenase Bedside Glucose 129 132 Test 01/14/17 01:59 01/14/17 04:30 01/14/17 05:34 01/14/17 08:47 Bedside Glucose 125 129 120 White Blood Count 26.4 H Red Blood Count 2.75 L Hemoglobin 8.3 L Hematocrit 24.8 L Mean Corpuscular Volume 90.2 Mean Corpuscular Hemoglobin 30.2 Mean Corpuscular Hemoglobin Concent 33.5 Red Cell Distribution Width 14.8 H Platelet Count 253 Mean Platelet Volume 10.7 H Neutrophils % 73.0 Lymphocytes % 5.7 L Monocytes % 5.0 Eosinophils % 0.2 Basophils % 0.5 Nucleated Red Blood Cells % 0.2 H Neutrophils # 19.3 H Lymphocytes # 1.5 Monocytes # 1.3 H Eosinophils # 0.1 Basophils # 0.1 Nucleated Red Blood Cells # 0.0 Sodium Level 142 Potassium Level 3.6 Chloride Level 100 Carbon Dioxide Level 26 Anion Gap 20 H Blood Urea Nitrogen 49 H Creatinine 3.50 H Glucose Level 122 Hemoglobin A1c 5.3 Calcium Level 8.0 L Phosphorus Level 3.5 Magnesium Level 1.9 Total Bilirubin 0.7 Direct Bilirubin 0.50 H Indirect Bilirubin 0.2 Aspartate Amino Transf (AST/SGOT) 31 Alanine Aminotransferase (ALT/SGPT) 24 Alkaline Phosphatase 169 H Total Protein 6.0 L Albumin 2.9 L Globulin 3.10 Albumin/Globulin Ratio 0.93 Triglycerides Level 256 H Cholesterol Level 117 LDL Cholesterol, Calculated 54 HDL Cholesterol 12 L Cholesterol/HDL Ratio 9.7 Lipase 421 H Test 01/14/17 12:04 Bedside Glucose 158 Medications Medications Current Medications Ondansetron HCl (Zofran Inj) 4 mg Q6H PRN IV NAUSEA AND/OR VOMITING; Start 01/04 at 19:30 Acetaminophen/ Hydrocodone Bitart ([place] (5/325)) 1 tab Q6H PRN PO MODERATE PAIN LEVEL 4-6; Start 01/04/17 at 19:30 Morphine Sulfate (morphine) 2 mg Q4H PRN IV SEVERE PAIN LEVEL 7-10 Last administered on 01/12/17t 11:19; Admin Dose 2 MG; Start 01/04/17 at 19:30 Docusate Sodium (Colace) 100 mg Q12H PRN PO CONSTIPATION; Start 01/04/17 at 19: 30 Magnesium Hydroxide (Milk Of Mag) 30 ml DAILY PRN PO CONSTIPATION; Start at 19:30 Sodium Biphosphate/ Sodium Phosphate (Fleet Enema) 133 ml DAILY PRN [place] CONSTIPATION; Start 01/04/17 at 19:30 Heparin Sodium (Porcine) (Heparin (5000 Units/0.5 ml)) 5,000 unit Q12 SC Last administered on 01/13/17 21:08; Admin Dose 5,000 UNIT; Start 01/04/17 at 21:00; Status Future hold Lorazepam (Ativan) 0.5 mg Q6H PRN IV ANXIETY Last administered on 01/08/17 05: 58; Admin Dose 0.5 MG; Start 01/04/17 at 19:30 Hydralazine HCl (Apresoline) 10 mg Q6H PRN IV ELEVATED BLOOD PRESSURE; Start at 19:30 Nitroglycerin (Nitroglycerin (Sl Tab) 0.4 Mg) 1 tab Q5M PRN SL ANGINA; Start at 19:30 Phenobarbital (Luminal) 64.8 mg BID PO Last administered on 01/04/17 23:45; Admin Dose 64.8 MG; Start 01/04/17 at 21:00; Status Future Hold Topiramate (Topamax) 200 mg BID PO ; Start 01/05/17 at 21:00; Status Future Hold Miscellaneous Information 1 ea NOTE XX ; Start 01/04/17 at 19:30 Glucose (Glutose) 15 gm Q15M PRN PO DECREASED GLUCOSE; Start 01/04/17 at 19:30 Glucose (Glutose) 22.5 gm Q15M PRN PO DECREASED GLUCOSE; Start 01/04/17 at 19:30 Dextrose (D50w Syringe) 25 ml Q15M PRN IV DECREASED GLUCOSE Last administered on 01/08/17 05:36; Admin Dose 25 ML; Start 01/04/17 at 19:30 Dextrose (D50w Syringe) 50 ml Q15M PRN IV DECREASED GLUCOSE; Start 01/04/17 at 19:30 Glucagon (Glucagen) 1 mg Q15M PRN IM DECREASED GLUCOSE; Start 01/04/17 at 19:30 Glucose (Glutose) 15 gm Q15M PRN BUCCAL DECREASED GLUCOSE; Start 01/04/17 at 19: 30 Phenytoin (Dilantin Susp Cup) 100 mg TID PO Last administered on 01/04/17 23:44 ; Admin Dose 100 MG; Start 01/04/17 at 21:50; Status Future Hold Clonazepam 0.5 mg 0.5 mg Q8H PO Last administered on 01/04/17 23:45; Admin Dose 0.5 MG; Start 01/04/17 at 23:00; Status Future Hold Norepinephrine 16 mg/Dextrose 500 ml @ 1.87 mls/hr TITRATE IV Last administered on 01/07/17 00:23; Admin Dose 15 MLS/HR; Start 01/05/17 at 00:30 Fentanyl 100 ml @ 2.5 mls/hr TITRATE IV Last administered on 01/14/17 09:34; Admin Dose 10 MLS/HR; Start 01/05/17 at 08:39 Midazolam HCl 50 ml @ 1 mls/hr TITRATE IV Last administered on 01/13/17 22:54 ; Admin Dose 6 MLS/HR; Start 01/05/17 at 08:41 Levetiracetam 100 ml @ 400 mls/hr Q12 IVPB Last administered on 01/14/17 08: 48; Admin Dose 400 MLS/HR; Start 01/05/17 at 11:30 Vasopressin 60 unit/Dextrose 60 ml @ 1.2 mls/hr Q12H IV Last administered on 22:32; Admin Dose 2.4 MLS/HR; Start 01/05/17 at 17:30 Epinephrine 4 mg/ Sodium Chloride 250 ml @ 0 mls/hr TITRATE IV ; Start 01/05/17 at 18:30 Phenylephrine HCl/ Dextrose (Robert-Syneph/D5W) 500 ml @ 18.75 mls/ hr TITRATE IV Last administered on 01/07/17 23:21; Admin Dose 26.25 MLS/HR; Start 01/05/17 at 20:30 Acetaminophen (Tylenol Liquid) 650 mg Q4H PRN NGT PAIN AND OR ELEVATED TEMP Last administered on 01/06/17 04:29; Admin Dose 650 MG; Start 01/06/17 at 04:30 Insulin Glargine 10 unit 10 unit DAILY SC Last administered on 01/07/17 08:19; Admin Dose 10 UNIT; Start 01/06/17 at 14:00; Status Future Hold Acetaminophen 100 ml @ 400 mls/hr Q6H PRN IVPB FEVER Last administered on 01/14 08:48; Admin Dose 400 MLS/HR; Start 01/10/17 at 06:30 Vancomycin HCl/ Sodium Chloride (Vancocin/NS) 150 ml @ 75 mls/hr Q72H IVPB Last administered on 01/10/17 17:57; Admin Dose 75 MLS/HR; Start 01/10/17 at 18 :00 IV Flush (NS 10 ml) 10 ml PRN PRN IV IV PROTOCOL; Start 01/10/17 at 11:30 Amiodarone HCl (Cordarone) 200 mg BID GTB Last administered on 01/14/17 08:49 ; Admin Dose 200 MG; Start 01/11/17 at 12:00 Diagnostic Test (Pha) (Accu-Chek) 1 ea Q4H XX Last administered on 01/14/17 05 :35; Admin Dose 1 EA; Start 01/11/17 at 17:00 Epoetin Mina 97528 units 10,000 units MoWeFr@17 SC Last administered on 18:30; Admin Dose 10,000 UNITS; Start 01/13/17 at 17:00 Ferric Sodium Gluconate Complex/ Sodium Chloride (Ferrlecit/NS) 110 ml @ 110 mls/hr Q24H IVPB Last administered on 01/14/17 10:35; Admin Dose 110 MLS/HR; Start 01/12/17 at 10:00; Stop 01/16/17 at 10:59 Insulin Aspart (Adult SC Insulin - Moder... Q4 SC Last administered on 12:05; Admin Dose 2 UNIT; Start 01/13/17 at 09:00 Meropenem/Sodium Chloride 50 ml @ 200 mls/hr Q12H IVPB Last administered on 10:36; Admin Dose 200 MLS/HR; Start 01/13/17 at 10:00 Total Parenteral Nutrition 1,000 ml @ 50 mls/hr Q20H IV Last administered on 10:36; Admin Dose 50 MLS/HR; Start 01/13/17 at 14:00 Pantoprazole 80 mg/Sodium Chloride 100 ml @ 10 mls/hr Q10H IV Last administered on 01/14/17 07:16; Admin Dose 10 MLS/HR; Start 01/14/17 at 06:00 Octreotide Acetate/Sodium Chloride (Sandostatin/NS) 50 ml @ 2.5 mls/hr Q20H IV Last administered on 01/14/17 08:49; Admin Dose 2.5 MLS/HR; Start 01/14/17 at 06:30 KAYLEIGH LONG MD Jan 14, 2017 14:15
[2017-01-14 14:53] LABS: HEMATOCRIT 22.6 % (37.0-47.0); HEMOGLOBIN 7.6 g/dl (12.0-16.0)
[2017-01-14] MEDS ORDERED: IOHEXOL 14.3 MG(I)/ML (ADULT) BTL PO ONE (15:30)
[2017-01-14] MEDS: MIDAZOLAM (DRIP) 50 mg/50 mL 50 ML IV SCH (16:57)
--- NOTE | 2017-01-14 19:33 | RADRPT ---
PROCEDURE: CT Chest without contrast. CLINICAL INDICATION: Fever and shortness of breath. TECHNIQUE: Helical axial sections were obtained through the chest without intravenous contrast enh ancement. Coronal and sagittal reformatted images were obtained from the axial source images. Total exam DLP is 550.23 mGy-cm. CTDIvol is 15.71 mGy. One or more of the following dose reduction sharyn hniques were used: Automated exposure control, adjustment of the mA and/or kV according to patient s ize, use of iterative reconstruction technique. COMPARISON: Chest x-ray done earlier the same day. FINDINGS: The endotracheal tube is in satisfactory position with the tip 2 cm above the kelly. The nasogastr ic tube should be advanced as the tip is just below the gastroesophageal junction. This should be a dvanced approximately 9 cm. The right arm PICC line is in satisfactory position with the tip in the lower superior vena cava. A left-sided chest wall stimulator device is present with leads extendin g superiorly to the left side of the neck. There are moderate bilateral pleural effusions with right larger than left. There is associated bhanu ateral pulmonary air space disease posteriorly consistent with atelectasis or pneumonia with right w orse than left. There is no pulmonary nodule or mass lesion. There is no mediastinal or hilar lymphadenopathy or mass. There is no axillary, supraclavicular, or internal mammary lymphadenopathy. The thoracic aorta is not dilated. There is calcification in the aorta consistent with atherosclero sis. The heart size is normal. There is no pericardial effusion. Abdominal images are described under separate report. There are mild degenerative changes of the thoracic spine. There is no fracture or lytic lesion. IMPRESSION: 1. Endotracheal tube in satisfactory position. 2. Nasogastric tube should be advanced approximately 9 cm. 3. Right arm PICC line in satisfactory position. 4. Left-sided stimulator device with leads extending to the left side of neck. 5. Moderate bilateral pleural effusions with associated bilateral air space disease posteriorly con sistent with atelectasis or pneumonia. Right is worse than left. 6. Atherosclerosis. 7. Mild degenerative changes of the spine. RPTAT: QQ .Larry Box MD, MD Date Time Electronically viewed and signed by .Larry Box MD, on 01/14/2017 19:33 .R/
--- NOTE | 2017-01-14 19:42 | RADRPT ---
PROCEDURE: CT Abdomen and Pelvis without contrast. CLINICAL INDICATION: Abdominal and pelvic pain. TECHNIQUE: CT scan of the abdomen and pelvis without contrast was performed. Coronal and sagittal reformatted images were obtained from the axial source images. Images were reviewed on a high-res[employer] [place] PACS workstation. Total exam DLP is 1407.33 mGy-cm. CTDIvol is 22.30 mGy. One or more of the following dose reduction techniques were used: Automated exposure control, adjustment of the mA and/ or kV according to patient size, use of iterative reconstruction technique. COMPARISON: Right upper quadrant abdomen ultrasound dated 01/04/2017. CT scan of the abdomen and pelvis dated 01/04/2017. FINDINGS: There are moderate bilateral pleural effusions and air space disease at both lung bases posteriorly consistent with atelectasis or pneumonia. A nasogastric tube is present with the tip in the upper s tomach and should be advanced approximately 9 cm. The liver is normal in size and attenuation. There is no focal hepatic lesion. The gallbladder is not well seen and may be contracted. A stent is present in the common bile duct. Gas is present in the common bile duct and intrahepatic bile ducts. The spleen is normal in size. There is no focal splenic lesion. Both adrenals are normal with no enlargement or mass. The pancreas is enlarged and there is surrounding fluid consistent with pancreatitis. Surrounding f luid and mesenteric edema is more extensive than seen previously. Fluid extends bilaterally into the pericolic gutters, also worse than seen previously. There is no renal mass or hydronephrosis. There is no renal calculus or ureteral calculus. The abdominal aorta is not dilated. There is calcification in the aorta consistent with atherosclero sis. There is no retroperitoneal lymphadenopathy or mass. There is no pelvic lymphadenopathy or mass. There is a Matias catheter in the urinary bladder. The periappendiceal region is unremarkable with no evidence of appendicitis. There is no evidence of bowel obstruction. There is mildly dilated small bowel in the mid abdomen c onsistent with ileus. There is no free air. There is a right femoral catheter with the tip in the common iliac vein. There are mild degenerative changes of the spine. There is no fracture or lytic lesion. IMPRESSION: 1. Moderate bilateral pleural effusions and bibasilar atelectasis or pneumonia. 2. Nasogastric tube should be advanced approximately 9 cm. 3. Gallbladder may be contracted as it is not well seen. 4. Stent in the common bile duct with gas in the common bile duct and intrahepatic bile ducts. 5. Severe pancreatitis with surrounding edema and fluid, worse than seen previously. 6. Atherosclerosis. 7. Matias catheter in the bladder. 8. Mild small bowel ileus. 9. Right femoral catheter. 10. Mild degenerative changes of the spine. RPTAT: QQ .Larry Box MD, MD Date Time Electronically viewed and signed by .Larry Box MD, MD on 01/14/2017 19:41 .R/
[2017-01-15] VITALS (66 sets, daily range): BP systolic 94–164; BP diastolic 55–132; PULSE 100–134; RESP 7–38
[2017-01-15] MEDS: OCTREOTIDE 500 MCG in SOD CHLORIDE 0.9% 49 ML IV SCH ×2 (00:15→17:57)
[2017-01-15] MEDS: ACCU-CHEK XX SCH ×6 (01:00→21:00)
[2017-01-15] MEDS: Insulin NOVOLOG SS MODERATE Algorithm(NPO/TPN/ENTERAL FEEDS) SC SCH ×7 (01:00→21:43)
[2017-01-15] MEDS: PANTOPRAZOLE IV 80 MG in SOD CHLORIDE 0.9% 100 ML IV SCH ×3 (01:26→22:05)
[2017-01-15] MEDS: MIDAZOLAM (DRIP) 50 mg/50 mL 50 ML IV SCH ×3 (01:27→20:36)
[2017-01-15 02:25] LABS: HEMATOCRIT 26.1 % (37.0-47.0); HEMOGLOBIN 8.8 g/dl (12.0-16.0)
[2017-01-15] MEDS: FENTAnyl (DRIP) 1000 mcg/100mL 100 ML IV SCH ×2 (04:51→17:56)
[2017-01-15] MEDS: VASOPRESSIN 60 UNIT in DEXTROSE 5% 57 ML IV SCH ×2 (04:56→17:25)
[2017-01-15 05:53] LABS: ADD SCAN DIFF NO
[2017-01-15 06:07] LABS: ABNORMAL IP MESSAGE 1; HEMATOCRIT 28.5 % (37.0-47.0); HEMOGLOBIN 9.5 g/dl (12.0-16.0); MEAN CORPUSCULAR HEMOGLOBIN 29.7 pg (29.0-33.0); MEAN CORPUSCULAR HGB CONC 33.3 g/dl (32.0-37.0); MEAN CORPUSCULAR VOLUME 89.1 fl (82.0-101.0); MEAN PLATELET VOLUME 10.7 fl (7.4-10.4); PLATELET COUNT 243 10^3/UL (140-415); RED CELL DISTRIBUTION WIDTH 14.7 % (11.5-14.5); WHITE BLOOD COUNT 30.5 10^3/ul (4.8-10.8)
[2017-01-15 06:15] LABS: ALBUMIN 2.7 g/dl (3.3-4.9); ALBUMIN/GLOBULIN RATIO 0.84; BILIRUBIN,DIRECT 0.7 mg/dl (0.00-0.20); BILIRUBIN,INDIRECT 0.2 mg/dl (0-1.1); BILIRUBIN,TOTAL 0.9 mg/dl (0.2-1.3); CALCIUM 7.5 mg/dl (8.4-10.2); CREATININE 3.48 mg/dl (0.44-1.00); POTASSIUM 3.5 mmol/L (3.5-5.1); TOTAL PROTEIN 5.9 g/dl (6.1-8.1)
[2017-01-15 08:51] LABS: LYMPHOCYTES # 1.8 10^3/ul (0.8-2.9); MONOCYTE # 0.3 10^3/ul (0.3-0.9); MYELOCYTES # 0.9; NEUTROPHIL # 26.5 10^3/ul (1.6-7.5)
[2017-01-15 08:52] LABS: PLATELET ESTIMATE PLT APPEAR ADEQUATE
[2017-01-15] MEDS: HEPARIN 5,000 UNIT/0.5 ML VIAL SC SCH ×2 (09:00→22:11)
[2017-01-15 09:21] LABS: MAGNESIUM 1.7 mg/dl (1.7-2.5); PHOSPHORUS 4.2 mg/dl (2.5-4.9)
[2017-01-15] MEDS: AMIODARONE 200 MG TAB GTB SCH ×2 (10:11→22:03)
[2017-01-15] MEDS: BALSAM PERU/CASTOR OIL 60 GM TUBE TOP SCH (10:11)
[2017-01-15] MEDS: LEVETIRACETAM 1000 MG (PMX) 100 ML IVPB SCH ×2 (10:11→21:15)
[2017-01-15] MEDS: MEROPENEM 500MG/50 ML (PMX) 50 ML IVPB SCH ×2 (10:12→22:08)
[2017-01-15] MEDS: SOD FERRIC GLUC COMPLX 125 MG in SOD CHLORIDE 0.9% 100 ML IVPB SCH (10:12)
--- NOTE | 2017-01-15 10:36 | CONS ---
Date/Time of Note Date/Time of Note DATE: 01/15/17 TIME: 10:34 Consult Date/Type/Reason Admit Date/Time Jan 04, 2017 at 19:10 Initial Consult Date 01/05/17 Type of Consultation: Pulmonary Ordering Provider: YING CASTAÑEDA Subjective Awake and alert with family at bedside. Continues mechanical ventilation. No vasopressor support at present. CT findings of chest and abdomen noted. Objective Vital Signs Date Time Temp Pulse Resp B/P Pulse Ox O2 Delivery O2 Flow Rate FiO2 01/15/17 08:15 30 01/15/17 08:00 99.8 132 31 152/89 99 Mechanical Ventilator Intake and Output 01/14/17 01/14/17 01/15/17 15:00 23:00 07:00 Intake Total 390.0 ml 1442.5 ml 1049.5 ml Output Total 520 ml 1230 ml 4300 ml Balance -130.0 ml 212.5 ml -3250.5 ml Exam GENERAL: Chronically ill-appearing elderly lady on mechanical ventilation, awake and alert follows simple commands VITAL SIGNS: per chart NECK: Supple. No JVD or lymphadenopathy. CARDIAC EXAM: S1, S2. No added sounds or murmurs. CHEST: Diminished air entry bilaterally poor effort ABDOMEN: Tender but no guarding or rebound. EXTREMITIES: No cyanosis, clubbing edema +2 NEUROLOGIC: Generalized weakness. Results/Medications Result Diagram: 01/15/17 0500 01/15/17 0500 Results 24 hrs Laboratory Tests Test 01/14/17 12:04 01/14/17 14:45 01/14/17 16:55 01/14/17 21:12 Bedside Glucose 158 139 126 Hemoglobin 7.6 L Hematocrit 22.6 L Test 01/15/17 01:16 01/15/17 02:20 01/15/17 04:55 01/15/17 05:00 Bedside Glucose 115 122 Hemoglobin 8.8 L 9.5 L Hematocrit 26.1 L 28.5 L White Blood Count 30.5 H Red Blood Count 3.20 L Mean Corpuscular Volume 89.1 Mean Corpuscular Hemoglobin 29.7 Mean Corpuscular Hemoglobin Concent 33.3 Red Cell Distribution Width 14.7 H Platelet Count 243 Mean Platelet Volume 10.7 H Neutrophils % 87.0 H Band Neutrophils % 1.0 Lymphocytes % 6.0 L Reactive Lymphocytes % 1.0 Monocytes % 1.0 Eosinophils % Metamyelocytes % 1.0 H Myelocytes % 3.0 H Neutrophils # 26.5 H Lymphocytes # 1.8 Monocytes # 0.3 Eosinophils # Metamyelocytes # 0.3 Myelocytes # 0.9 Platelet Estimate PLT APPEAR ADEQUATE Sodium Level 141 Potassium Level 3.5 Chloride Level 101 Carbon Dioxide Level 24 Anion Gap 20 H Blood Urea Nitrogen 60 H Creatinine 3.48 H Glucose Level 106 Lactic Acid Level 1.2 Calcium Level 7.5 L Phosphorus Level 4.2 Magnesium Level 1.7 Total Bilirubin 0.9 Direct Bilirubin 0.70 #H Indirect Bilirubin 0.2 Aspartate Amino Transf (AST/SGOT) 43 Alanine Aminotransferase (ALT/SGPT) 29 Alkaline Phosphatase 235 H Total Protein 5.9 L Albumin 2.7 L Globulin 3.20 Albumin/Globulin Ratio 0.84 Test 01/15/17 05:21 01/15/17 05:21 01/15/17 10:16 Lab Scanned Report BLOOD TRANSFUSION BLOOD TRANSFUSION Bedside Glucose 150 Medications Current Medications Ondansetron HCl (Zofran Inj) 4 mg Q6H PRN IV NAUSEA AND/OR VOMITING; Start 01/04 at 19:30 Acetaminophen/ Hydrocodone Bitart ([place] (5/325)) 1 tab Q6H PRN PO MODERATE PAIN LEVEL 4-6; Start 01/04/17 at 19:30 Morphine Sulfate (morphine) 2 mg Q4H PRN IV SEVERE PAIN LEVEL 7-10 Last administered on 01/12/17 11:19; Admin Dose 2 MG; Start 01/04/17 at 19:30 Docusate Sodium (Colace) 100 mg Q12H PRN PO CONSTIPATION; Start 01/04/17 at 19: 30 Magnesium Hydroxide (Milk Of Mag) 30 ml DAILY PRN PO CONSTIPATION; Start at 19:30 Sodium Biphosphate/ Sodium Phosphate (Fleet Enema) 133 ml DAILY PRN [place] CONSTIPATION; Start 01/04/17 at 19:30 Heparin Sodium (Porcine) (Heparin (5000 Units/0.5 ml)) 5,000 unit Q12 SC Last administered on 01/13/17 21:08; Admin Dose 5,000 UNIT; Start 01/04/17 at 21:00; Status Future hold Lorazepam (Ativan) 0.5 mg Q6H PRN IV ANXIETY Last administered on 01/08/17 05: 58; Admin Dose 0.5 MG; Start 01/04/17 at 19:30 Hydralazine HCl (Apresoline) 10 mg Q6H PRN IV ELEVATED BLOOD PRESSURE; Start at 19:30 Nitroglycerin (Nitroglycerin (Sl Tab) 0.4 Mg) 1 tab Q5M PRN SL ANGINA; Start at 19:30 Phenobarbital (Luminal) 64.8 mg BID PO Last administered on 01/04/17 23:45; Admin Dose 64.8 MG; Start 01/04/17 at 21:00; Status Future Hold Topiramate (Topamax) 200 mg BID PO ; Start 01/05/17 at 21:00; Status Future Hold Miscellaneous Information 1 ea NOTE XX ; Start 01/04/17 at 19:30 Glucose (Glutose) 15 gm Q15M PRN PO DECREASED GLUCOSE; Start 01/04/17 at 19:30 Glucose (Glutose) 22.5 gm Q15M PRN PO DECREASED GLUCOSE; Start 01/04/17 at 19:30 Dextrose (D50w Syringe) 25 ml Q15M PRN IV DECREASED GLUCOSE Last administered on 01/08/17 05:36; Admin Dose 25 ML; Start 01/04/17 at 19:30 Dextrose (D50w Syringe) 50 ml Q15M PRN IV DECREASED GLUCOSE; Start 01/04/17 at 19:30 Glucagon (Glucagen) 1 mg Q15M PRN IM DECREASED GLUCOSE; Start 01/04/17 at 19:30 Glucose (Glutose) 15 gm Q15M PRN BUCCAL DECREASED GLUCOSE; Start 01/04/17 at 19: 30 Phenytoin (Dilantin Susp Cup) 100 mg TID PO Last administered on 01/04/17 23:44 ; Admin Dose 100 MG; Start 01/04/17 at 21:50; Status Future Hold Clonazepam 0.5 mg 0.5 mg Q8H PO Last administered on 01/04/17 23:45; Admin Dose 0.5 MG; Start 01/04/17 at 23:00; Status Future Hold Norepinephrine 16 mg/Dextrose 500 ml @ 1.87 mls/hr TITRATE IV Last administered on 01/07/17 00:23; Admin Dose 15 MLS/HR; Start 01/05/17 at 00:30 Fentanyl 100 ml @ 2.5 mls/hr TITRATE IV Last administered on 01/15/17 04:51; Admin Dose 10 MLS/HR; Start 01/05/17 at 08:39 Midazolam HCl 50 ml @ 1 mls/hr TITRATE IV Last administered on 01/15/17 01:27 ; Admin Dose 6 MLS/HR; Start 01/05/17 at 08:41 Levetiracetam 100 ml @ 400 mls/hr Q12 IVPB Last administered on 01/15/17 10: 11; Admin Dose 400 MLS/HR; Start 01/05/17 at 11:30 Vasopressin 60 unit/Dextrose 60 ml @ 1.2 mls/hr Q12H IV Last administered on 22:32; Admin Dose 2.4 MLS/HR; Start 01/05/17 at 17:30 Epinephrine 4 mg/ Sodium Chloride 250 ml @ 0 mls/hr TITRATE IV ; Start 01/05/17 at 18:30 Phenylephrine HCl/ Dextrose (Robert-Syneph/D5W) 500 ml @ 18.75 mls/ hr TITRATE IV Last administered on 01/07/17 23:21; Admin Dose 26.25 MLS/HR; Start 01/05/17 at 20:30 Acetaminophen (Tylenol Liquid) 650 mg Q4H PRN NGT PAIN AND OR ELEVATED TEMP Last administered on 01/06/17 04:29; Admin Dose 650 MG; Start 01/06/17 at 04:30 Insulin Glargine 10 unit 10 unit DAILY SC Last administered on 01/07/17 08:19; Admin Dose 10 UNIT; Start 01/06/17 at 14:00; Status Future Hold Acetaminophen 100 ml @ 400 mls/hr Q6H PRN IVPB FEVER Last administered on 01/14 18:35; Admin Dose 400 MLS/HR; Start 01/10/17 at 06:30 Vancomycin HCl/ Sodium Chloride (Vancocin/NS) 150 ml @ 75 mls/hr Q72H IVPB Last administered on 01/10/17 17:57; Admin Dose 75 MLS/HR; Start 01/10/17 at 18 :00 IV Flush (NS 10 ml) 10 ml PRN PRN IV IV PROTOCOL; Start 01/10/17 at 11:30 Amiodarone HCl (Cordarone) 200 mg BID GTB Last administered on 01/15/17 10:11 ; Admin Dose 200 MG; Start 01/11/17 at 12:00 Diagnostic Test (Pha) (Accu-Chek) 1 ea Q4H XX Last administered on 01/15/17 09 :00; Admin Dose 1 EA; Start 01/11/17 at 17:00 Epoetin Mina 27005 units 10,000 units [id number]@17 SC Last administered on 18:30; Admin Dose 10,000 UNITS; Start 01/13/17 at 17:00 Ferric Sodium Gluconate Complex/ Sodium Chloride (Ferrlecit/NS) 110 ml @ 110 mls/hr Q24H IVPB Last administered on 01/15/17 10:12; Admin Dose 110 MLS/HR; Start 01/12/17 at 10:00; Stop 01/16/17 at 10:59 Insulin Aspart (Adult SC Insulin - Moder... Q4 SC Last administered on 10:19; Admin Dose 2 UNIT; Start 01/13/17 at 09:00 Meropenem/Sodium Chloride 50 ml @ 200 mls/hr Q12H IVPB Last administered on 10:12; Admin Dose 200 MLS/HR; Start 01/13/17 at 10:00 Total Parenteral Nutrition 1,000 ml @ 50 mls/hr Q20H IV Last administered on 14:17; Admin Dose 50 MLS/HR; Start 01/13/17 at 14:00 Pantoprazole 80 mg/Sodium Chloride 100 ml @ 10 mls/hr Q10H IV Last administered on 01/15/17 01:26; Admin Dose 10 MLS/HR; Start 01/14/17 at 06:00 Octreotide Acetate/Sodium Chloride (Sandostatin/NS) 50 ml @ 2.5 mls/hr Q20H IV Last administered on 01/15/17 00:15; Admin Dose 2.5 MLS/HR; Start 01/14/17 at 06:30 Assessment/Plan Chief Complaint/Hosp Course IMP: 1. Severe gallstone pancreatitis with septic shock, now slowly improving. Severe pancreatitis present on CT abdomen. 2. Metabolic acidosis secondary to above and ARF 3. Renal failure likely ATN now requiring hemodialysis 4. 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 5. History of seizure disorder RECS: 1. Hemodialysis today per nephrology 2. Continue mechanical ventilation, CPAP weaning trial this morning with family at bedside 3. Broad-spectrum antibiotic coverage 4. Nasogastric tube to suction 5. GI recommendations. Consider surgery consult given CT findings of abdomen 6. Continue DVT and GI prophylaxis 35 min cc time Problems: AMPARO VALERIO MD, [facility] Jan 15, 2017 10:35
--- NOTE | 2017-01-15 12:42 | CONS ---
Date/Time of Note Date/Time of Note DATE: 01/15/17 TIME: 12:41 Assessment/Plan Assessment/Plan Additional Assessment/Plan Paroxysmal atrial fibrillation Severe sepsis Acute pancreatitis status post ERCP Preserved ejection fraction Respiratory failure, vent dependent Acute kidney injury now on hemodialysis Seizure disorder Psychiatric disorder Acute blood loss anemia -Patient currently with sinus tachycardia, this is likely secondary to overall medical state including evidence of GI bleeding. Would continue amiodarone to help maintain in sinus rhythm. No anticoagulation for atrial fibrillation given severe anemia. Fluid management as per our nephrology colleagues. Consultation Date/Type/Reason Admit Date/Time Jan 04, 2017 at 19:10 Initial Consult Date 01/05/17 Type of Consultation: cv Referring Provider: YING CASTAÑEDA 24 HR Interval Summary Free Text/Dictation Patient seen and examined. Exam/Review of Systems Vital Signs Vitals Vital Signs Date Time Temp Pulse Resp B/P Pulse Ox O2 Delivery O2 Flow Rate FiO2 01/15/17 11:40 108 26 97 30 01/15/17 08:00 99.8 152/89 Mechanical Ventilator Intake and Output 01/14/17 01/14/17 01/15/17 15:00 23:00 07:00 Intake Total 390.0 ml 1442.5 ml 1049.5 ml Output Total 520 ml 1230 ml 4300 ml Balance -130.0 ml 212.5 ml -3250.5 ml Exam Sedated and intubated, no apparent distress Head: normocephalic ENMT: intubated Respiratory: other (Coarse breath sounds bilaterally, no wheezing) Cardiovascular: other (S1-S2 heard), regular rate and rhythm Gastrointestinal: bowel sounds, distended, other (No grimacing with palpation) , soft Extremities: edema Results Result Diagram: 01/15/17 0500 01/15/17 0500 Results 24 hrs Laboratory Tests Test 01/14/17 14:45 01/14/17 16:55 01/14/17 21:12 01/15/17 01:16 Hemoglobin 7.6 L Hematocrit 22.6 L Bedside Glucose 139 126 115 Test 01/15/17 02:20 01/15/17 04:55 01/15/17 05:00 01/15/17 05:21 Hemoglobin 8.8 L 9.5 L Hematocrit 26.1 L 28.5 L Bedside Glucose 122 White Blood Count 30.5 H Red Blood Count 3.20 L Mean Corpuscular Volume 89.1 Mean Corpuscular Hemoglobin 29.7 Mean Corpuscular Hemoglobin Concent 33.3 Red Cell Distribution Width 14.7 H Platelet Count 243 Mean Platelet Volume 10.7 H Neutrophils % 87.0 H Band Neutrophils % 1.0 Lymphocytes % 6.0 L Reactive Lymphocytes % 1.0 Monocytes % 1.0 Eosinophils % Metamyelocytes % 1.0 H Myelocytes % 3.0 H Neutrophils # 26.5 H Lymphocytes # 1.8 Monocytes # 0.3 Eosinophils # Metamyelocytes # 0.3 Myelocytes # 0.9 Platelet Estimate PLT APPEAR ADEQUATE Sodium Level 141 Potassium Level 3.5 Chloride Level 101 Carbon Dioxide Level 24 Anion Gap 20 H Blood Urea Nitrogen 60 H Creatinine 3.48 H Glucose Level 106 Lactic Acid Level 1.2 Calcium Level 7.5 L Phosphorus Level 4.2 Magnesium Level 1.7 Total Bilirubin 0.9 Direct Bilirubin 0.70 #H Indirect Bilirubin 0.2 Aspartate Amino Transf (AST/SGOT) 43 Alanine Aminotransferase (ALT/SGPT) 29 Alkaline Phosphatase 235 H Total Protein 5.9 L Albumin 2.7 L Globulin 3.20 Albumin/Globulin Ratio 0.84 Lab Scanned Report BLOOD TRANSFUSION Test 01/15/17 05:21 01/15/17 10:16 Lab Scanned Report BLOOD TRANSFUSION Bedside Glucose 150 Medications Medications Current Medications Ondansetron HCl (Zofran Inj) 4 mg Q6H PRN IV NAUSEA AND/OR VOMITING; Start 01/04 at 19:30 Acetaminophen/ Hydrocodone Bitart ([place] (5/325)) 1 tab Q6H PRN PO MODERATE PAIN LEVEL 4-6; Start 01/04/17 at 19:30 Morphine Sulfate (morphine) 2 mg Q4H PRN IV SEVERE PAIN LEVEL 7-10 Last administered on 01/12/17t 11:19; Admin Dose 2 MG; Start 01/04/17 at 19:30 Docusate Sodium (Colace) 100 mg Q12H PRN PO CONSTIPATION; Start 01/04/17 at 19: 30 Magnesium Hydroxide (Milk Of Mag) 30 ml DAILY PRN PO CONSTIPATION; Start at 19:30 Sodium Biphosphate/ Sodium Phosphate (Fleet Enema) 133 ml DAILY PRN [place] CONSTIPATION; Start 01/04/17 at 19:30 Heparin Sodium (Porcine) (Heparin (5000 Units/0.5 ml)) 5,000 unit Q12 SC Last administered on 01/13/17 21:08; Admin Dose 5,000 UNIT; Start 01/04/17 at 21:00; Status Future hold Lorazepam (Ativan) 0.5 mg Q6H PRN IV ANXIETY Last administered on 01/08/17 05: 58; Admin Dose 0.5 MG; Start 01/04/17 at 19:30 Hydralazine HCl (Apresoline) 10 mg Q6H PRN IV ELEVATED BLOOD PRESSURE; Start at 19:30 Nitroglycerin (Nitroglycerin (Sl Tab) 0.4 Mg) 1 tab Q5M PRN SL ANGINA; Start at 19:30 Phenobarbital (Luminal) 64.8 mg BID PO Last administered on 01/04/17 23:45; Admin Dose 64.8 MG; Start 01/04/17 at 21:00; Status Future Hold Topiramate (Topamax) 200 mg BID PO ; Start 01/05/17 at 21:00; Status Future Hold Miscellaneous Information 1 ea NOTE XX ; Start 01/04/17 at 19:30 Glucose (Glutose) 15 gm Q15M PRN PO DECREASED GLUCOSE; Start 01/04/17 at 19:30 Glucose (Glutose) 22.5 gm Q15M PRN PO DECREASED GLUCOSE; Start 01/04/17 at 19:30 Dextrose (D50w Syringe) 25 ml Q15M PRN IV DECREASED GLUCOSE Last administered on 01/08/17 05:36; Admin Dose 25 ML; Start 01/04/17 at 19:30 Dextrose (D50w Syringe) 50 ml Q15M PRN IV DECREASED GLUCOSE; Start 01/04/17 at 19:30 Glucagon (Glucagen) 1 mg Q15M PRN IM DECREASED GLUCOSE; Start 01/04/17 at 19:30 Glucose (Glutose) 15 gm Q15M PRN BUCCAL DECREASED GLUCOSE; Start 01/04/17 at 19: 30 Phenytoin (Dilantin Susp Cup) 100 mg TID PO Last administered on 01/04/17 23:44 ; Admin Dose 100 MG; Start 01/04/17 at 21:50; Status Future Hold Clonazepam 0.5 mg 0.5 mg Q8H PO Last administered on 01/04/17 23:45; Admin Dose 0.5 MG; Start 01/04/17 at 23:00; Status Future Hold Norepinephrine 16 mg/Dextrose 500 ml @ 1.87 mls/hr TITRATE IV Last administered on 01/07/17 00:23; Admin Dose 15 MLS/HR; Start 01/05/17 at 00:30 Fentanyl 100 ml @ 2.5 mls/hr TITRATE IV Last administered on 01/15/17 04:51; Admin Dose 10 MLS/HR; Start 01/05/17 at 08:39 Midazolam HCl 50 ml @ 1 mls/hr TITRATE IV Last administered on 01/15/17 01:27 ; Admin Dose 6 MLS/HR; Start 01/05/17 at 08:41 Levetiracetam 100 ml @ 400 mls/hr Q12 IVPB Last administered on 01/15/17 10: 11; Admin Dose 400 MLS/HR; Start 01/05/17 at 11:30 Vasopressin 60 unit/Dextrose 60 ml @ 1.2 mls/hr Q12H IV Last administered on 22:32; Admin Dose 2.4 MLS/HR; Start 01/05/17 at 17:30 Epinephrine 4 mg/ Sodium Chloride 250 ml @ 0 mls/hr TITRATE IV ; Start 01/05/17 at 18:30 Phenylephrine HCl/ Dextrose (Robert-Syneph/D5W) 500 ml @ 18.75 mls/ hr TITRATE IV Last administered on 01/07/17 23:21; Admin Dose 26.25 MLS/HR; Start 01/05/17 at 20:30 Acetaminophen (Tylenol Liquid) 650 mg Q4H PRN NGT PAIN AND OR ELEVATED TEMP Last administered on 01/06/17 04:29; Admin Dose 650 MG; Start 01/06/17 at 04:30 Insulin Glargine 10 unit 10 unit DAILY SC Last administered on 01/07/17 08:19; Admin Dose 10 UNIT; Start 01/06/17 at 14:00; Status Future Hold Acetaminophen 100 ml @ 400 mls/hr Q6H PRN IVPB FEVER Last administered on 01/14 18:35; Admin Dose 400 MLS/HR; Start 01/10/17 at 06:30 Vancomycin HCl/ Sodium Chloride (Vancocin/NS) 150 ml @ 75 mls/hr Q72H IVPB Last administered on 01/10/17 17:57; Admin Dose 75 MLS/HR; Start 01/10/17 at 18 :00 IV Flush (NS 10 ml) 10 ml PRN PRN IV IV PROTOCOL; Start 01/10/17 at 11:30 Amiodarone HCl (Cordarone) 200 mg BID GTB Last administered on 01/15/17 10:11 ; Admin Dose 200 MG; Start 01/11/17 at 12:00 Diagnostic Test (Pha) (Accu-Chek) 1 ea Q4H XX Last administered on 01/15/17 09 :00; Admin Dose 1 EA; Start 01/11/17 at 17:00 Epoetin Mina [id number] units 10,000 units [id number]@[email or web address] SC Last administered on 18:30; Admin Dose 10,000 UNITS; Start 01/13/17 at 17:00 Ferric Sodium Gluconate Complex/ Sodium Chloride (Ferrlecit/NS) 110 ml @ 110 mls/hr Q24H IVPB Last administered on 01/15/17 10:12; Admin Dose 110 MLS/HR; Start 01/12/17 at 10:00; Stop 01/16/17 at 10:59 Insulin Aspart (Adult SC Insulin - Moder... Q4 SC Last administered on 10:19; Admin Dose 2 UNIT; Start 01/13/17 at 09:00 Meropenem/Sodium Chloride 50 ml @ 200 mls/hr Q12H IVPB Last administered on 10:12; Admin Dose 200 MLS/HR; Start 01/13/17 at 10:00 Total Parenteral Nutrition 1,000 ml @ 50 mls/hr Q20H IV Last administered on 14:17; Admin Dose 50 MLS/HR; Start 01/13/17 at 14:00 Pantoprazole 80 mg/Sodium Chloride 100 ml @ 10 mls/hr Q10H IV Last administered on 01/15/17 01:26; Admin Dose 10 MLS/HR; Start 01/14/17 at 06:00 Octreotide Acetate/Sodium Chloride (Sandostatin/NS) 50 ml @ 2.5 mls/hr Q20H IV Last administered on 01/15/17 00:15; Admin Dose 2.5 MLS/HR; Start 01/14/17 at 06:30 Vlad Leyva DO Jan 15, 2017 12:42
[2017-01-15] MEDS: ACETAMINOPHEN 1000MG/100ML IV 100 ML IVPB PRN (13:30)
[2017-01-15] MEDS: TPN 1,000 ML IV SCH (14:00)
--- NOTE | 2017-01-15 14:23 | CONS ---
Date/Time of Note Date/Time of Note DATE: 01/15/17 TIME: 14:20 Assessment/Plan Assessment/Plan Additional Assessment/Plan 1. Severe gallstone pancreatitis with septic shock, bp better off pressors Significant persistent abdominal pain with persistent leukocytosis concerning for possible pseudocyst. ct shows worsening pancreatitis but no cyst. may need surgical eval 2-. Renal failure likely ATN now requiring hemodialysis: s/p hd this am. uo better 4. Hypoxemic respiratory failure secondary to above: cont agressive hd and vent support. 5. History of seizure disorder 6- A fib; followed by cards 7-possible GIB:s/p prbc x 2 and now stable hb Consultation Date/Type/Reason Admit Date/Time Jan 04, 2017 at 19:10 Initial Consult Date 01/11/17 Type of Consultation: cv Referring Provider: YING CASTAÑEDA 24 HR Interval Summary Free Text/Dictation unchnaged. remains tacycardic off pressors. s/p prbc yesterday and hb stable. for hd this am Exam/Review of Systems Vital Signs Vitals Vital Signs Date Time Temp Pulse Resp B/P Pulse Ox O2 Delivery O2 Flow Rate FiO2 01/15/17 12:00 127 01/15/17 11:40 26 97 30 01/15/17 11:30 131/76 Mechanical Ventilator 01/15/17 08:00 99.8 Intake and Output 01/14/17 01/14/17 01/15/17 15:00 23:00 07:00 Intake Total 390.0 ml 1442.5 ml 1049.5 ml Output Total 520 ml 1230 ml 4300 ml Balance -130.0 ml 212.5 ml -3250.5 ml Exam Constitutional: other (orally intubated / non verbal) Head: normocephalic Neck: non-tender, supple Respiratory: crackles/rales, diminished breath sounds Cardiovascular: edema, regular rate and rhythm Gastrointestinal: distended Results Result Diagram: 01/15/17 0500 01/15/17 0500 Results 24 hrs Laboratory Tests Test 01/14/17 14:45 01/14/17 16:55 01/14/17 21:12 01/15/17 01:16 Hemoglobin 7.6 L Hematocrit 22.6 L Bedside Glucose 139 126 115 Test 01/15/17 02:20 01/15/17 04:55 01/15/17 05:00 01/15/17 05:21 Hemoglobin 8.8 L 9.5 L Hematocrit 26.1 L 28.5 L Bedside Glucose 122 White Blood Count 30.5 H Red Blood Count 3.20 L Mean Corpuscular Volume 89.1 Mean Corpuscular Hemoglobin 29.7 Mean Corpuscular Hemoglobin Concent 33.3 Red Cell Distribution Width 14.7 H Platelet Count 243 Mean Platelet Volume 10.7 H Neutrophils % 87.0 H Band Neutrophils % 1.0 Lymphocytes % 6.0 L Reactive Lymphocytes % 1.0 Monocytes % 1.0 Eosinophils % Metamyelocytes % 1.0 H Myelocytes % 3.0 H Neutrophils # 26.5 H Lymphocytes # 1.8 Monocytes # 0.3 Eosinophils # Metamyelocytes # 0.3 Myelocytes # 0.9 Platelet Estimate PLT APPEAR ADEQUATE Sodium Level 141 Potassium Level 3.5 Chloride Level 101 Carbon Dioxide Level 24 Anion Gap 20 H Blood Urea Nitrogen 60 H Creatinine 3.48 H Glucose Level 106 Lactic Acid Level 1.2 Calcium Level 7.5 L Phosphorus Level 4.2 Magnesium Level 1.7 Total Bilirubin 0.9 Direct Bilirubin 0.70 #H Indirect Bilirubin 0.2 Aspartate Amino Transf (AST/SGOT) 43 Alanine Aminotransferase (ALT/SGPT) 29 Alkaline Phosphatase 235 H Total Protein 5.9 L Albumin 2.7 L Globulin 3.20 Albumin/Globulin Ratio 0.84 Lab Scanned Report BLOOD TRANSFUSION Test 01/15/17 05:21 01/15/17 10:16 01/15/17 13:42 Lab Scanned Report BLOOD TRANSFUSION Bedside Glucose 150 135 Medications Medications Current Medications Ondansetron HCl (Zofran Inj) 4 mg Q6H PRN IV NAUSEA AND/OR VOMITING; Start 01/04 at 19:30 Acetaminophen/ Hydrocodone Bitart ([place] (5/325)) 1 tab Q6H PRN PO MODERATE PAIN LEVEL 4-6; Start 01/04/17 at 19:30 Morphine Sulfate (morphine) 2 mg Q4H PRN IV SEVERE PAIN LEVEL 7-10 Last administered on 01/12/17t 11:19; Admin Dose 2 MG; Start 01/04/17 at 19:30 Docusate Sodium (Colace) 100 mg Q12H PRN PO CONSTIPATION; Start 01/04/17 at 19: 30 Magnesium Hydroxide (Milk Of Mag) 30 ml DAILY PRN PO CONSTIPATION; Start at 19:30 Sodium Biphosphate/ Sodium Phosphate (Fleet Enema) 133 ml DAILY PRN [place] CONSTIPATION; Start 01/04/17 at 19:30 Heparin Sodium (Porcine) (Heparin (5000 Units/0.5 ml)) 5,000 unit Q12 SC Last administered on 01/13/17 21:08; Admin Dose 5,000 UNIT; Start 01/04/17 at 21:00; Status Future hold Lorazepam (Ativan) 0.5 mg Q6H PRN IV ANXIETY Last administered on 01/08/17 05: 58; Admin Dose 0.5 MG; Start 01/04/17 at 19:30 Hydralazine HCl (Apresoline) 10 mg Q6H PRN IV ELEVATED BLOOD PRESSURE; Start at 19:30 Nitroglycerin (Nitroglycerin (Sl Tab) 0.4 Mg) 1 tab Q5M PRN SL ANGINA; Start at 19:30 Phenobarbital (Luminal) 64.8 mg BID PO Last administered on 01/04/17 23:45; Admin Dose 64.8 MG; Start 01/04/17 at 21:00; Status Future Hold Topiramate (Topamax) 200 mg BID PO ; Start 01/05/17 at 21:00; Status Future Hold Miscellaneous Information 1 ea NOTE XX ; Start 01/04/17 at 19:30 Glucose (Glutose) 15 gm Q15M PRN PO DECREASED GLUCOSE; Start 01/04/17 at 19:30 Glucose (Glutose) 22.5 gm Q15M PRN PO DECREASED GLUCOSE; Start 01/04/17 at 19:30 Dextrose (D50w Syringe) 25 ml Q15M PRN IV DECREASED GLUCOSE Last administered on 01/08/17 05:36; Admin Dose 25 ML; Start 01/04/17 at 19:30 Dextrose (D50w Syringe) 50 ml Q15M PRN IV DECREASED GLUCOSE; Start 01/04/17 at 19:30 Glucagon (Glucagen) 1 mg Q15M PRN IM DECREASED GLUCOSE; Start 01/04/17 at 19:30 Glucose (Glutose) 15 gm Q15M PRN BUCCAL DECREASED GLUCOSE; Start 01/04/17 at 19: 30 Phenytoin (Dilantin Susp Cup) 100 mg TID PO Last administered on 01/04/17 23:44 ; Admin Dose 100 MG; Start 01/04/17 at 21:50; Status Future Hold Clonazepam 0.5 mg 0.5 mg Q8H PO Last administered on 01/04/17 23:45; Admin Dose 0.5 MG; Start 01/04/17 at 23:00; Status Future Hold Norepinephrine 16 mg/Dextrose 500 ml @ 1.87 mls/hr TITRATE IV Last administered on 01/07/17 00:23; Admin Dose 15 MLS/HR; Start 01/05/17 at 00:30 Fentanyl 100 ml @ 2.5 mls/hr TITRATE IV Last administered on 01/15/17 04:51; Admin Dose 10 MLS/HR; Start 01/05/17 at 08:39 Midazolam HCl 50 ml @ 1 mls/hr TITRATE IV Last administered on 01/15/17 13:30 ; Admin Dose 5 MLS/HR; Start 01/05/17 at 08:41 Levetiracetam 100 ml @ 400 mls/hr Q12 IVPB Last administered on 01/15/17 10: 11; Admin Dose 400 MLS/HR; Start 01/05/17 at 11:30 Vasopressin 60 unit/Dextrose 60 ml @ 1.2 mls/hr Q12H IV Last administered on 22:32; Admin Dose 2.4 MLS/HR; Start 01/05/17 at 17:30 Epinephrine 4 mg/ Sodium Chloride 250 ml @ 0 mls/hr TITRATE IV ; Start 01/05/17 at 18:30 Phenylephrine HCl/ Dextrose (Robert-Syneph/D5W) 500 ml @ 18.75 mls/ hr TITRATE IV Last administered on 01/07/17 23:21; Admin Dose 26.25 MLS/HR; Start 01/05/17 at 20:30 Acetaminophen (Tylenol Liquid) 650 mg Q4H PRN NGT PAIN AND OR ELEVATED TEMP Last administered on 01/06/17 04:29; Admin Dose 650 MG; Start 01/06/17 at 04:30 Insulin Glargine 10 unit 10 unit DAILY SC Last administered on 01/07/17 08:19; Admin Dose 10 UNIT; Start 01/06/17 at 14:00; Status Future Hold Acetaminophen (Ofirmev 1000mg/ 100ml Iv) 100 ml @ 400 mls/hr Q6H PRN IVPB FEVER Last administered on 01/15/17 13:30; Admin Dose 400 MLS/HR; Start at 06:30 IV Flush (NS 10 ml) 10 ml PRN PRN IV IV PROTOCOL; Start 01/10/17 at 11:30 Amiodarone HCl (Cordarone) 200 mg BID GTB Last administered on 01/15/17 10:11 ; Admin Dose 200 MG; Start 01/11/17 at 12:00 Diagnostic Test (Pha) (Accu-Chek) 1 ea Q4H XX Last administered on 01/15/17 13 :43; Admin Dose 1 EA; Start 01/11/17 at 17:00 Epoetin [place] [id number] units 10,000 units [id number]@[email or web address] SC Last administered on 18:30; Admin Dose 10,000 UNITS; Start 01/13/17 at 17:00 Ferric Sodium Gluconate Complex/ Sodium Chloride (Ferrlecit/NS) 110 ml @ 110 mls/hr Q24H IVPB Last administered on 01/15/17 10:12; Admin Dose 110 MLS/HR; Start 01/12/17 at 10:00; Stop 01/16/17 at 10:59 Insulin Aspart (Adult SC Insulin - Moder... Q4 SC Last administered on 10:19; Admin Dose 2 UNIT; Start 01/13/17 at 09:00 Meropenem/Sodium Chloride 50 ml @ 200 mls/hr Q12H IVPB Last administered on 10:12; Admin Dose 200 MLS/HR; Start 01/13/17 at 10:00 Total Parenteral Nutrition 1,000 ml @ 50 mls/hr Q20H IV Last administered on 14:17; Admin Dose 50 MLS/HR; Start 01/13/17 at 14:00 Pantoprazole 80 mg/Sodium Chloride 100 ml @ 10 mls/hr Q10H IV Last administered on 01/15/17 13:29; Admin Dose 10 MLS/HR; Start 01/14/17 at 06:00 Octreotide Acetate 500 mcg/ Sodium Chloride 50 ml @ 2.5 mls/hr Q20H IV Last administered on 01/15/17t 00:15; Admin Dose 2.5 MLS/HR; Start 01/14/17 at 06:30 Vancomycin HCl (Vancocin) 250 ml @ 125 mls/hr Q72H IVPB ; Start 01/16/17 at 06: 00 KAYLEIGH LONG MD Jan 15, 2017 14:23
--- NOTE | 2017-01-15 14:36 | PN ---
Date/Time of Note Date/Time of Note DATE: 01/15/17 TIME: 14:20 Assessment/Plan VTE Prophylaxis VTE Prophylaxis Intervention: SCD's Lines/Catheters IV Catheter Type (from Nrs): Peripheral IV Urinary Cath still in place: Yes Reason Cath still needed: other (indicate) (intubated and sedated) Assessment/Plan Assessment/Plan 61-year-old female who had come in with severe abdominal pain now managed for the following conditions: 1. Severe systemic shock with multiorgan failure secondary to severe pancreatitis superimposed by sepsis secondary to staph bacteremia, bilateral pneumonia, E. coli UTI. * Improved? , off pressors at least 2. Severe gallstone pancreatitis * Status post ERCP with sphincterectomy and removal of common bile duct stones, placement of common bile duct stent done January 13, 2017 3. Probable GI bleed as well as abdominal distention 4. Acute respiratory failure secondary to #1 patient remains ventilator dependent 5. Acute kidney injury secondary to #1 now requiring hemodialysis 6. Persistent tachycardia likely secondary to #1 on amiodarone 7. Bilateral pneumonia with bilateral effusions R> L which is likely reactive from #2 * persistent despite right-sided thoracentesis January 13, 2017 8. Normocytic normochromic anemia: Worsening 9. History of seizure disorder on Keppra 10. Chronic debility on TPN 11. Persistent tachycardia: Plan: Continue ICU monitoring and vent support and sedation as indicated Continue Protonix and octreotide drips, continue to hold anticoagulation, follow -up H&H, follow GI plan Continue antibiotics per ID Continue TPN as well as gentle fluid hydration, appreciate cardiology input and management of tachycardia, patient is on amiodarone Closely monitor hemoglobin every 6 hours, transfuse as needed Continue Keppra for seizures Tachycardia is consistent with severe pancreatitis, Appreciate all consultants Further interventions per clinical course Prognosis remains guarded Prophylaxis: SCDs/Protonix drip Critical CARE time: Greater than 35 minutes Subjective 24 Hr Interval Summary Free Text/Dictation Patient failed CPAP trial stoday now also having black stools every time sedation is weaned , patient becomes tachy to the 120-130s Exam/Review of Systems Vital Signs Vitals Vital Signs Date Time Temp Pulse Resp B/P Pulse Ox O2 Delivery O2 Flow Rate FiO2 01/15/17 12:00 127 01/15/17 11:40 26 97 30 01/15/17 11:30 131/76 Mechanical Ventilator 01/15/17 08:00 99.8 Intake and Output 01/14/17 01/14/17 01/15/17 15:00 23:00 07:00 Intake Total 390.0 ml 1442.5 ml 1049.5 ml Output Total 520 ml 1230 ml 4300 ml Balance -130.0 ml 212.5 ml -3250.5 ml Exam GENERAL: Intubated and comfortably sedated HEENT: BALDO, Intubated, Vent settings noted , NGT drainage mildly improved LUNGS: diffusely diminished and coarse BS HEART: S1, S2. No murmur, gallops or rubs. Tachycardic ABDOMEN: Soft, distended, patient will grimace with palpation, hypoactive bowel sounds ++ GENITOURINARY: Normal female external genitalia, mild vulvar edema, Matias to bedside drainage with good output EXTREMITIES: Mild pitting edema bilaterally, also some hand edema bilaterally NEUROLOGIC: The patient is currently sedated. Results Result Diagram: 01/15/17 0500 01/15/17 0500 Results 24 hrs Laboratory Tests Test 01/14/17 14:45 01/14/17 16:55 01/14/17 21:12 01/15/17 01:16 Hemoglobin 7.6 L Hematocrit 22.6 L Bedside Glucose 139 126 115 Test 01/15/17 02:20 01/15/17 04:55 01/15/17 05:00 01/15/17 05:21 Hemoglobin 8.8 L 9.5 L Hematocrit 26.1 L 28.5 L Bedside Glucose 122 White Blood Count 30.5 H Red Blood Count 3.20 L Mean Corpuscular Volume 89.1 Mean Corpuscular Hemoglobin 29.7 Mean Corpuscular Hemoglobin Concent 33.3 Red Cell Distribution Width 14.7 H Platelet Count 243 Mean Platelet Volume 10.7 H Neutrophils % 87.0 H Band Neutrophils % 1.0 Lymphocytes % 6.0 L Reactive Lymphocytes % 1.0 Monocytes % 1.0 Eosinophils % Metamyelocytes % 1.0 H Myelocytes % 3.0 H Neutrophils # 26.5 H Lymphocytes # 1.8 Monocytes # 0.3 Eosinophils # Metamyelocytes # 0.3 Myelocytes # 0.9 Platelet Estimate PLT APPEAR ADEQUATE Sodium Level 141 Potassium Level 3.5 Chloride Level 101 Carbon Dioxide Level 24 Anion Gap 20 H Blood Urea Nitrogen 60 H Creatinine 3.48 H Glucose Level 106 Lactic Acid Level 1.2 Calcium Level 7.5 L Phosphorus Level 4.2 Magnesium Level 1.7 Total Bilirubin 0.9 Direct Bilirubin 0.70 #H Indirect Bilirubin 0.2 Aspartate Amino Transf (AST/SGOT) 43 Alanine Aminotransferase (ALT/SGPT) 29 Alkaline Phosphatase 235 H Total Protein 5.9 L Albumin 2.7 L Globulin 3.20 Albumin/Globulin Ratio 0.84 Lab Scanned Report BLOOD TRANSFUSION Test 01/15/17 05:21 01/15/17 10:16 01/15/17 13:42 Lab Scanned Report BLOOD TRANSFUSION Bedside Glucose 150 135 Medications Medications Current Medications Ondansetron HCl (Zofran Inj) 4 mg Q6H PRN IV NAUSEA AND/OR VOMITING; Start 01/04 at 19:30 Acetaminophen/ Hydrocodone Bitart ([place] (5/325)) 1 tab Q6H PRN PO MODERATE PAIN LEVEL 4-6; Start 01/04/17 at 19:30 Morphine Sulfate (morphine) 2 mg Q4H PRN IV SEVERE PAIN LEVEL 7-10 Last administered on 01/12/17 11:19; Admin Dose 2 MG; Start 01/04/17 at 19:30 Docusate Sodium (Colace) 100 mg Q12H PRN PO CONSTIPATION; Start 01/04/17 at 19: 30 Magnesium Hydroxide (Milk Of Mag) 30 ml DAILY PRN PO CONSTIPATION; Start at 19:30 Sodium Biphosphate/ Sodium Phosphate (Fleet Enema) 133 ml DAILY PRN [place] CONSTIPATION; Start 01/04/17 at 19:30 Heparin Sodium (Porcine) (Heparin (5000 Units/0.5 ml)) 5,000 unit Q12 SC Last administered on 01/13/17 21:08; Admin Dose 5,000 UNIT; Start 01/04/17 at 21:00; Status Future hold Lorazepam (Ativan) 0.5 mg Q6H PRN IV ANXIETY Last administered on 01/08/17 05: 58; Admin Dose 0.5 MG; Start 01/04/17 at 19:30 Hydralazine HCl (Apresoline) 10 mg Q6H PRN IV ELEVATED BLOOD PRESSURE; Start at 19:30 Nitroglycerin (Nitroglycerin (Sl Tab) 0.4 Mg) 1 tab Q5M PRN SL ANGINA; Start at 19:30 Phenobarbital (Luminal) 64.8 mg BID PO Last administered on 01/04/17 23:45; Admin Dose 64.8 MG; Start 01/04/17 at 21:00; Status Future Hold Topiramate (Topamax) 200 mg BID PO ; Start 01/05/17 at 21:00; Status Future Hold Miscellaneous Information 1 ea NOTE XX ; Start 01/04/17 at 19:30 Glucose (Glutose) 15 gm Q15M PRN PO DECREASED GLUCOSE; Start 01/04/17 at 19:30 Glucose (Glutose) 22.5 gm Q15M PRN PO DECREASED GLUCOSE; Start 01/04/17 at 19:30 Dextrose (D50w Syringe) 25 ml Q15M PRN IV DECREASED GLUCOSE Last administered on 01/08/17 05:36; Admin Dose 25 ML; Start 01/04/17 at 19:30 Dextrose (D50w Syringe) 50 ml Q15M PRN IV DECREASED GLUCOSE; Start 01/04/17 at 19:30 Glucagon (Glucagen) 1 mg Q15M PRN IM DECREASED GLUCOSE; Start 01/04/17 at 19:30 Glucose (Glutose) 15 gm Q15M PRN BUCCAL DECREASED GLUCOSE; Start 01/04/17 at 19: 30 Phenytoin (Dilantin Susp Cup) 100 mg TID PO Last administered on 01/04/17 23:44 ; Admin Dose 100 MG; Start 01/04/17 at 21:50; Status Future Hold Clonazepam 0.5 mg 0.5 mg Q8H PO Last administered on 01/04/17 23:45; Admin Dose 0.5 MG; Start 01/04/17 at 23:00; Status Future Hold Norepinephrine 16 mg/Dextrose 500 ml @ 1.87 mls/hr TITRATE IV Last administered on 01/07/17 00:23; Admin Dose 15 MLS/HR; Start 01/05/17 at 00:30 Fentanyl 100 ml @ 2.5 mls/hr TITRATE IV Last administered on 01/15/17 04:51; Admin Dose 10 MLS/HR; Start 01/05/17 at 08:39 Midazolam HCl 50 ml @ 1 mls/hr TITRATE IV Last administered on 01/15/17 13:30 ; Admin Dose 5 MLS/HR; Start 01/05/17 at 08:41 Levetiracetam 100 ml @ 400 mls/hr Q12 IVPB Last administered on 01/15/17 10: 11; Admin Dose 400 MLS/HR; Start 01/05/17 at 11:30 Vasopressin 60 unit/Dextrose 60 ml @ 1.2 mls/hr Q12H IV Last administered on 22:32; Admin Dose 2.4 MLS/HR; Start 01/05/17 at 17:30 Epinephrine 4 mg/ Sodium Chloride 250 ml @ 0 mls/hr TITRATE IV ; Start 01/05/17 at 18:30 Phenylephrine HCl/ Dextrose (Robert-Syneph/D5W) 500 ml @ 18.75 mls/ hr TITRATE IV Last administered on 01/07/17 23:21; Admin Dose 26.25 MLS/HR; Start 01/05/17 at 20:30 Acetaminophen (Tylenol Liquid) 650 mg Q4H PRN NGT PAIN AND OR ELEVATED TEMP Last administered on 01/06/17 04:29; Admin Dose 650 MG; Start 01/06/17 at 04:30 Insulin Glargine 10 unit 10 unit DAILY SC Last administered on 01/07/17 08:19; Admin Dose 10 UNIT; Start 01/06/17 at 14:00; Status Future Hold Acetaminophen (Ofirmev 1000mg/ 100ml Iv) 100 ml @ 400 mls/hr Q6H PRN IVPB FEVER Last administered on 01/15/17 13:30; Admin Dose 400 MLS/HR; Start at 06:30 IV Flush (NS 10 ml) 10 ml PRN PRN IV IV PROTOCOL; Start 01/10/17 at 11:30 Amiodarone HCl (Cordarone) 200 mg BID GTB Last administered on 01/15/17 10:11 ; Admin Dose 200 MG; Start 01/11/17 at 12:00 Diagnostic Test (Pha) (Accu-Chek) 1 ea Q4H XX Last administered on 01/15/17 13 :43; Admin Dose 1 EA; Start 01/11/17 at 17:00 Epoetin Mina 66157 units 10,000 units MoWeFr@17 SC Last administered on 18:30; Admin Dose 10,000 UNITS; Start 01/13/17 at 17:00 Ferric Sodium Gluconate Complex/ Sodium Chloride (Ferrlecit/NS) 110 ml @ 110 mls/hr Q24H IVPB Last administered on 01/15/17 10:12; Admin Dose 110 MLS/HR; Start 01/12/17 at 10:00; Stop 01/16/17 at 10:59 Insulin Aspart (Adult SC Insulin - Moder... Q4 SC Last administered on 10:19; Admin Dose 2 UNIT; Start 01/13/17 at 09:00 Meropenem/Sodium Chloride 50 ml @ 200 mls/hr Q12H IVPB Last administered on 10:12; Admin Dose 200 MLS/HR; Start 01/13/17 at 10:00 Total Parenteral Nutrition 1,000 ml @ 50 mls/hr Q20H IV Last administered on 14:17; Admin Dose 50 MLS/HR; Start 01/13/17 at 14:00 Pantoprazole 80 mg/Sodium Chloride 100 ml @ 10 mls/hr Q10H IV Last administered on 01/15/17 13:29; Admin Dose 10 MLS/HR; Start 01/14/17 at 06:00 Octreotide Acetate 500 mcg/ Sodium Chloride 50 ml @ 2.5 mls/hr Q20H IV Last administered on 01/15/17 00:15; Admin Dose 2.5 MLS/HR; Start 01/14/17 at 06:30 Vancomycin HCl (Vancocin) 250 ml @ 125 mls/hr Q72H IVPB ; Start 01/16/17 at 06: 00 Procedures Procedures PROCEDURE: CT Abdomen and Pelvis without contrast. CLINICAL INDICATION: Abdominal and pelvic pain. TECHNIQUE: CT scan of the abdomen and pelvis without contrast was performed. Coronal and sagittal reformatted images were obtained from the axial source images. Images were reviewed on a high-resolution PACS workstation. Total exam DLP is 1407.33 mGy-cm. CTDIvol is 22.30 mGy. One or more of the following dose reduction techniques were used: Automated exposure control, adjustment of the mA and/or kV according to patient size, use of iterative reconstruction technique. COMPARISON: Right upper quadrant abdomen ultrasound dated 01/04/2017. CT scan of the abdomen and pelvis dated 01/04/2017. FINDINGS: There are moderate bilateral pleural effusions and air space disease at both lung bases posteriorly consistent with atelectasis or pneumonia. A nasogastric tube is present with the tip in the upper stomach and should be advanced approximately 9 cm. The liver is normal in size and attenuation. There is no focal hepatic lesion. The gallbladder is not well seen and may be contracted. A stent is present in the common bile duct. Gas is present in the common bile duct and intrahepatic bile ducts. The spleen is normal in size. There is no focal splenic lesion. Both adrenals are normal with no enlargement or mass. The pancreas is enlarged and there is surrounding fluid consistent with pancreatitis. Surrounding fluid and mesenteric edema is more extensive than seen previously. Fluid extends bilaterally into the pericolic gutters, also worse than seen previously. There is no renal mass or hydronephrosis. There is no renal calculus or ureteral calculus. The abdominal aorta is not dilated. There is calcification in the aorta consistent with atherosclerosis. There is no retroperitoneal lymphadenopathy or mass. There is no pelvic lymphadenopathy or mass. There is a Matias catheter in the urinary bladder. The periappendiceal region is unremarkable with no evidence of appendicitis. There is no evidence of bowel obstruction. There is mildly dilated small bowel in the mid abdomen consistent with ileus. There is no free air. There is a right femoral catheter with the tip in the common iliac vein. There are mild degenerative changes of the spine. There is no fracture or lytic lesion. IMPRESSION: 1. Moderate bilateral pleural effusions and bibasilar atelectasis or pneumonia. 2. Nasogastric tube should be advanced approximately 9 cm. 3. Gallbladder may be contracted as it is not well seen. 4. Stent in the common bile duct with gas in the common bile duct and intrahepatic bile ducts. 5. Severe pancreatitis with surrounding edema and fluid, worse than seen previously. 6. Atherosclerosis. 7. Matias catheter in the bladder. 8. Mild small bowel ileus. 9. Right femoral catheter. 10. Mild degenerative changes of the spine. RPTAT: QQ .Larry Box MD, MD Date Time Electronically viewed and signed by .Larry Box MD, MD on 01/14/2017 19:41 .R/ CC: AMPARO VALERIO MD, [facility] PROCEDURE: CT Chest without contrast. CLINICAL INDICATION: Fever and shortness of breath. TECHNIQUE: Helical axial sections were obtained through the chest without intravenous contrast enhancement. Coronal and sagittal reformatted images were obtained from the axial source images. Total exam DLP is 550.23 mGy-cm. CTDIvol is 15.71 mGy. One or more of the following dose reduction techniques were used: Automated exposure control, adjustment of the mA and/or kV according to patient size, use of iterative reconstruction technique. COMPARISON: Chest x-ray done earlier the same day. FINDINGS: The endotracheal tube is in satisfactory position with the tip 2 cm above the kelly. The nasogastric tube should be advanced as the tip is just below the gastroesophageal junction. This should be advanced approximately 9 cm. The right arm PICC line is in satisfactory position with the tip in the lower superior vena cava. A left-sided chest wall stimulator device is present with leads extending superiorly to the left side of the neck. There are moderate bilateral pleural effusions with right larger than left. There is associated bilateral pulmonary air space disease posteriorly consistent with atelectasis or pneumonia with right worse than left. There is no pulmonary nodule or mass lesion. There is no mediastinal or hilar lymphadenopathy or mass. There is no axillary, supraclavicular, or internal mammary lymphadenopathy. The thoracic aorta is not dilated. There is calcification in the aorta consistent with atherosclerosis. The heart size is normal. There is no pericardial effusion. Abdominal images are described under separate report. There are mild degenerative changes of the thoracic spine. There is no fracture or lytic lesion. IMPRESSION: 1. Endotracheal tube in satisfactory position. 2. Nasogastric tube should be advanced approximately 9 cm. 3. Right arm PICC line in satisfactory position. 4. Left-sided stimulator device with leads extending to the left side of neck. 5. Moderate bilateral pleural effusions with associated bilateral air space disease posteriorly consistent with atelectasis or pneumonia. Right is worse than left. 6. Atherosclerosis. 7. Mild degenerative changes of the spine. RPTAT: QQ .Larry Box MD, MD Date Time Electronically viewed and signed by .Larry Box MD, MD on 01/14/2017 19:33 .R/ CC: AMPARO VALERIO MD, [facility] Jan 15, 2017 14:30
[2017-01-15] MEDS: METOPROLOL 25 MG TAB PO SCH ×2 (16:06→23:12)
--- NOTE | 2017-01-15 17:29 | CONS ---
Date/Time of Note Date/Time of Note DATE: 01/15/17 TIME: 17:22 Assessment/Plan Assessment/Plan Chief Complaint/Hosp Course ID PROGRESS NOTE TOTAL ABX DAY #10=> VANCO IV + MERREM 24H INTERVAL SUMMARY/HOSPITAL COURSE * Low grade TMax 100.+ w/WBC rising on ABX == Femoral line present * Noncommunicative on the Vent - sedated, no fevers, VSS, looks comfortable * Microbiology: Blood culture on admission grew coag negative staph species urine culture grew E. coli repeat blood and urine culture had been negative PHYSICAL EXAMINATION: GENERAL: No fevers, VSS, NAD HEENT: Atraumatic, Unremarkable except ETT-> Secure to Vent NECK: Trach midline CHEST: Rise symmetrical w/course BS over vent tubing ABDOMEN: Soft, (+)BS EXTREMITIES: Warm, moves extremities ID ASSESSMENT: 61 yo F admit with: 1. Sepsis, status post shock => IMPROVING = multifactorial per etiologies below 2. Severe, acute pancreatitis 3. Choledocholithiasis, status post ERCP 01/12/17 with removal of the stone and stent placement 4. Coag negative staph bacteremia, likely contaminant 5. Acute respiratory failure 6. Acute renal failure requiring hemodialysis 7. Status post GNR urinary tract infection (-) MRSA Nares screen INVASIVES: PICC. ETT. NGT, FC, R-FEM EPIFANIO ABX ALLERGY: KNDA CURRENT ABX: TOTAL ABX DAY #10 => VANCO IV + MERREM ID PLAN: * Continue current ABX over the weekend * ID team will continue to monitor * Low grade temps rising WBC may be due to Femoral Line, vs alternative source * repeat WBC, check stool for C.Diff, VRE, repeat Urine & Sputum r/o MDRO -> may need to broaden ABX coverage with Diflucan, Zyvox . Problems: Consultation Date/Type/Reason Admit Date/Time Jan 04, 2017 at 19:10 Initial Consult Date 01/11/17 Type of Consultation: id Referring Provider: YING CASTAÑEDA Exam/Review of Systems Vital Signs Vitals Vital Signs Date Time Temp Pulse Resp B/P Pulse Ox O2 Delivery O2 Flow Rate FiO2 01/15/17 16:00 114 01/15/17 15:40 26 96 30 01/15/17 14:30 140/72 Mechanical Ventilator 01/15/17 12:00 100.1 Intake and Output 01/14/17 01/14/17 01/15/17 15:00 23:00 07:00 Intake Total 390.0 ml 1442.5 ml 1130.0 ml Output Total 520 ml 1230 ml 4350 ml Balance -130.0 ml 212.5 ml -3220.0 ml Results Result Diagram: 01/15/17 0500 01/15/17 0500 Results 24 hrs Laboratory Tests Test 01/14/17 21:12 01/15/17 01:16 01/15/17 02:20 01/15/17 04:55 Bedside Glucose 126 115 122 Hemoglobin 8.8 L Hematocrit 26.1 L Test 01/15/17 05:00 01/15/17 05:21 01/15/17 05:21 01/15/17 10:16 White Blood Count 30.5 H Red Blood Count 3.20 L Hemoglobin 9.5 L Hematocrit 28.5 L Mean Corpuscular Volume 89.1 Mean Corpuscular Hemoglobin 29.7 Mean Corpuscular Hemoglobin Concent 33.3 Red Cell Distribution Width 14.7 H Platelet Count 243 Mean Platelet Volume 10.7 H Neutrophils % 87.0 H Band Neutrophils % 1.0 Lymphocytes % 6.0 L Reactive Lymphocytes % 1.0 Monocytes % 1.0 Eosinophils % Metamyelocytes % 1.0 H Myelocytes % 3.0 H Neutrophils # 26.5 H Lymphocytes # 1.8 Monocytes # 0.3 Eosinophils # Metamyelocytes # 0.3 Myelocytes # 0.9 Platelet Estimate PLT APPEAR ADEQUATE Sodium Level 141 Potassium Level 3.5 Chloride Level 101 Carbon Dioxide Level 24 Anion Gap 20 H Blood Urea Nitrogen 60 H Creatinine 3.48 H Glucose Level 106 Lactic Acid Level 1.2 Calcium Level 7.5 L Phosphorus Level 4.2 Magnesium Level 1.7 Total Bilirubin 0.9 Direct Bilirubin 0.70 #H Indirect Bilirubin 0.2 Aspartate Amino Transf (AST/SGOT) 43 Alanine Aminotransferase (ALT/SGPT) 29 Alkaline Phosphatase 235 H Total Protein 5.9 L Albumin 2.7 L Globulin 3.20 Albumin/Globulin Ratio 0.84 Lab Scanned Report BLOOD TRANSFUSION BLOOD TRANSFUSION Bedside Glucose 150 Test 01/15/17 13:42 Bedside Glucose 135 Medications Medications Current Medications Ondansetron HCl (Zofran Inj) 4 mg Q6H PRN IV NAUSEA AND/OR VOMITING; Start 01/04 at 19:30 Acetaminophen/ Hydrocodone Bitart ([place] (5/325)) 1 tab Q6H PRN PO MODERATE PAIN LEVEL 4-6; Start 01/04/17 at 19:30 Morphine Sulfate (morphine) 2 mg Q4H PRN IV SEVERE PAIN LEVEL 7-10 Last administered on 01/12/17 11:19; Admin Dose 2 MG; Start 01/04/17 at 19:30 Docusate Sodium (Colace) 100 mg Q12H PRN PO CONSTIPATION; Start 01/04/17 at 19: 30 Magnesium Hydroxide (Milk Of Mag) 30 ml DAILY PRN PO CONSTIPATION; Start at 19:30 Sodium Biphosphate/ Sodium Phosphate (Fleet Enema) 133 ml DAILY PRN [place] CONSTIPATION; Start 01/04/17 at 19:30 Heparin Sodium (Porcine) (Heparin (5000 Units/0.5 ml)) 5,000 unit Q12 SC Last administered on 01/13/17 21:08; Admin Dose 5,000 UNIT; Start 01/04/17 at 21:00; Status Future hold Lorazepam (Ativan) 0.5 mg Q6H PRN IV ANXIETY Last administered on 01/08/17 05: 58; Admin Dose 0.5 MG; Start 01/04/17 at 19:30 Hydralazine HCl (Apresoline) 10 mg Q6H PRN IV ELEVATED BLOOD PRESSURE; Start at 19:30 Nitroglycerin (Nitroglycerin (Sl Tab) 0.4 Mg) 1 tab Q5M PRN SL ANGINA; Start at 19:30 Phenobarbital (Luminal) 64.8 mg BID PO Last administered on 01/04/17 23:45; Admin Dose 64.8 MG; Start 01/04/17 at 21:00; Status Future Hold Topiramate (Topamax) 200 mg BID PO ; Start 01/05/17 at 21:00; Status Future Hold Miscellaneous Information 1 ea NOTE XX ; Start 01/04/17 at 19:30 Glucose (Glutose) 15 gm Q15M PRN PO DECREASED GLUCOSE; Start 01/04/17 at 19:30 Glucose (Glutose) 22.5 gm Q15M PRN PO DECREASED GLUCOSE; Start 01/04/17 at 19:30 Dextrose (D50w Syringe) 25 ml Q15M PRN IV DECREASED GLUCOSE Last administered on 01/08/17 05:36; Admin Dose 25 ML; Start 01/04/17 at 19:30 Dextrose (D50w Syringe) 50 ml Q15M PRN IV DECREASED GLUCOSE; Start 01/04/17 at 19:30 Glucagon (Glucagen) 1 mg Q15M PRN IM DECREASED GLUCOSE; Start 01/04/17 at 19:30 Glucose (Glutose) 15 gm Q15M PRN BUCCAL DECREASED GLUCOSE; Start 01/04/17 at 19: 30 Phenytoin (Dilantin Susp Cup) 100 mg TID PO Last administered on 01/04/17 23:44 ; Admin Dose 100 MG; Start 01/04/17 at 21:50; Status Future Hold Clonazepam 0.5 mg 0.5 mg Q8H PO Last administered on 01/04/17 23:45; Admin Dose 0.5 MG; Start 01/04/17 at 23:00; Status Future Hold Norepinephrine 16 mg/Dextrose 500 ml @ 1.87 mls/hr TITRATE IV Last administered on 01/07/17 00:23; Admin Dose 15 MLS/HR; Start 01/05/17 at 00:30 Fentanyl 100 ml @ 2.5 mls/hr TITRATE IV Last administered on 01/15/17 04:51; Admin Dose 10 MLS/HR; Start 01/05/17 at 08:39 Midazolam HCl 50 ml @ 1 mls/hr TITRATE IV Last administered on 01/15/17 13:30 ; Admin Dose 5 MLS/HR; Start 01/05/17 at 08:41 Levetiracetam 100 ml @ 400 mls/hr Q12 IVPB Last administered on 01/15/17 10: 11; Admin Dose 400 MLS/HR; Start 01/05/17 at 11:30 Vasopressin 60 unit/Dextrose 60 ml @ 1.2 mls/hr Q12H IV Last administered on 22:32; Admin Dose 2.4 MLS/HR; Start 01/05/17 at 17:30 Epinephrine 4 mg/ Sodium Chloride 250 ml @ 0 mls/hr TITRATE IV ; Start 01/05/17 at 18:30 Phenylephrine HCl/ Dextrose (Robert-Syneph/D5W) 500 ml @ 18.75 mls/ hr TITRATE IV Last administered on 01/07/17 23:21; Admin Dose 26.25 MLS/HR; Start 01/05/17 at 20:30 Acetaminophen (Tylenol Liquid) 650 mg Q4H PRN NGT PAIN AND OR ELEVATED TEMP Last administered on 01/06/17 04:29; Admin Dose 650 MG; Start 01/06/17 at 04:30 Insulin Glargine 10 unit 10 unit DAILY SC Last administered on 01/07/17 08:19; Admin Dose 10 UNIT; Start 01/06/17 at 14:00; Status Future Hold Acetaminophen (Ofirmev 1000mg/ 100ml Iv) 100 ml @ 400 mls/hr Q6H PRN IVPB FEVER Last administered on 01/15/17 13:30; Admin Dose 400 MLS/HR; Start at 06:30 IV Flush (NS 10 ml) 10 ml PRN PRN IV IV PROTOCOL; Start 01/10/17 at 11:30 Amiodarone HCl (Cordarone) 200 mg BID GTB Last administered on 01/15/17 10:11 ; Admin Dose 200 MG; Start 01/11/17 at 12:00 Diagnostic Test (Pha) (Accu-Chek) 1 ea Q4H XX Last administered on 01/15/17 13 :43; Admin Dose 1 EA; Start 01/11/17 at 17:00 Epoetin Mina [id number] units 10,000 units MoWeFr@17 SC Last administered on 18:30; Admin Dose 10,000 UNITS; Start 01/13/17 at 17:00 Ferric Sodium Gluconate Complex/ Sodium Chloride (Ferrlecit/NS) 110 ml @ 110 mls/hr Q24H IVPB Last administered on 01/15/17 10:12; Admin Dose 110 MLS/HR; Start 01/12/17 at 10:00; Stop 01/16/17 at 10:59 Insulin Aspart (Adult SC Insulin - Moder... Q4 SC Last administered on 10:19; Admin Dose 2 UNIT; Start 01/13/17 at 09:00 Meropenem/Sodium Chloride 50 ml @ 200 mls/hr Q12H IVPB Last administered on 10:12; Admin Dose 200 MLS/HR; Start 01/13/17 at 10:00 Total Parenteral Nutrition 1,000 ml @ 50 mls/hr Q20H IV Last administered on 14:00; Admin Dose 50 MLS/HR; Start 01/13/17 at 14:00 Pantoprazole 80 mg/Sodium Chloride 100 ml @ 10 mls/hr Q10H IV Last administered on 01/15/17 13:29; Admin Dose 10 MLS/HR; Start 01/14/17 at 06:00 Octreotide Acetate 500 mcg/ Sodium Chloride 50 ml @ 2.5 mls/hr Q20H IV Last administered on 01/15/17 00:15; Admin Dose 2.5 MLS/HR; Start 01/14/17 at 06:30 Vancomycin HCl (Vancocin) 250 ml @ 125 mls/hr Q72H IVPB ; Start 01/16/17 at 06: 00 Metoprolol Tartrate (Lopressor) 25 mg BID PO Last administered on 01/15/17 16: 06; Admin Dose 25 MG; Start 01/15/17 at 15:00 Al Hydrox/Mg Hydrox/Simethicone (Mag-Al Plus) 30 ml Q4 GTB ; Start 01/15/17 at 17:00 GAYATRI SALDIVAR NP Jan 15, 2017 17:29
[2017-01-15] MEDS: AL HYDROX/MG HYDROX/SIMETH 30 ML CUP GTB SCH ×2 (17:55→22:03)
[2017-01-16] VITALS (50 sets, daily range): BP systolic 116–161; BP diastolic 56–91; PULSE 91–119; RESP 23–31
[2017-01-16] MEDS: ACCU-CHEK XX SCH ×6 (01:00→21:00)
[2017-01-16] MEDS: Insulin NOVOLOG SS MODERATE Algorithm(NPO/TPN/ENTERAL FEEDS) SC SCH ×6 (01:00→21:00)
[2017-01-16] MEDS: AL HYDROX/MG HYDROX/SIMETH 30 ML CUP GTB SCH ×6 (01:11→23:08)
[2017-01-16] MEDS: TPN 1,000 ML IV SCH ×2 (02:27→23:49)
[2017-01-16] MEDS: OCTREOTIDE 500 MCG in SOD CHLORIDE 0.9% 49 ML IV SCH ×2 (02:29→22:49)
[2017-01-16] MEDS: VANCOMYCIN 1 GM in NS 250 ML IVPB SCH (05:58)
[2017-01-16 06:45] LABS: ABNORMAL IP MESSAGE 1; ADD SCAN DIFF NO; HEMATOCRIT 24.5 % (37.0-47.0); HEMOGLOBIN 7.9 g/dl (12.0-16.0); MEAN CORPUSCULAR HEMOGLOBIN 29.9 pg (29.0-33.0); MEAN CORPUSCULAR HGB CONC 32.2 g/dl (32.0-37.0); MEAN CORPUSCULAR VOLUME 92.8 fl (82.0-101.0); MEAN PLATELET VOLUME 11.4 fl (7.4-10.4); PLATELET COUNT 277 10^3/UL (140-415); RED BLOOD COUNT 2.64 10^6/ul (4.20-5.40); RED CELL DISTRIBUTION WIDTH 15.7 % (11.5-14.5); WHITE BLOOD COUNT 29.4 10^3/ul (4.8-10.8)
[2017-01-16] MEDS ORDERED: EPINEPHrine 0.1 MG/ML SYG ONE (07:00)
[2017-01-16] MEDS: MIDAZOLAM (DRIP) 50 mg/50 mL 50 ML IV SCH ×3 (07:06→23:46)
[2017-01-16 07:14] LABS: INR 1.4; PROTIME 17.2 Sec (12.2-14.2); PT RATIO 1.3
[2017-01-16 07:15] LABS: PARTIAL THROMBOPLASTIN TIME 38.5 Sec (25.0-35.0)
[2017-01-16 07:18] LABS: THROMBIN TIME 15.7 SEC (13.8-19.1)
--- NOTE | 2017-01-16 07:42 | CONS ---
Date/Time of Note Date/Time of Note DATE: 01/16/17 TIME: 07:39 Assessment/Plan Assessment/Plan Chief Complaint/Hosp Course Admitted with abdominal pain and evidence of severe pancreatitis in otherwise good health. Problems: Additional Assessment/Plan 1. ARF, will HD today and transfuse to units packed cells and and UF as cxr noted, sacral edema and reasonable albumin. 2. Anemia, 2 transfuse 2 units, ??endoscopy 3. Pancreatitis, severe Consultation Date/Type/Reason Admit Date/Time Jan 04, 2017 at 19:10 Initial Consult Date 01/05/17 Type of Consultation: id Referring Provider: YING CASTAÑEDA 24 HR Interval Summary Subjective hx not possible: other (intubated and sedated) Exam/Review of Systems Vital Signs Vitals Vital Signs Date Time Temp Pulse Resp B/P Pulse Ox O2 Delivery O2 Flow Rate FiO2 01/16/17 05:15 114 26 96 30 01/16/17 01:30 131/77 01/16/17 01:00 Mechanical Ventilator 01/15/17 19:30 99.8 Intake and Output 01/15/17 01/15/17 01/16/17 15:00 23:00 07:00 Intake Total 922.0 ml 593.5 ml 367.5 ml Output Total 570 ml 595 ml 490 ml Balance 352.0 ml -1.5 ml -122.5 ml Exam Neck: No jvd Respiratory: clear to auscultation, diminished breath sounds Cardiovascular: regular rate and rhythm Gastrointestinal: distended (and grimaces with gentle palpation) Extremities: edema (but 3+ sacral edema) Results Result Diagram: 01/16/17 0540 01/15/17 0500 Results 24 hrs Laboratory Tests Test 01/15/17 10:16 01/15/17 13:42 01/15/17 18:02 01/15/17 21:42 Bedside Glucose 150 135 151 119 Test 01/16/17 01:15 01/16/17 05:00 01/16/17 05:16 01/16/17 05:40 Bedside Glucose 136 134 White Blood Count 29.4 H Red Blood Count 2.64 L Hemoglobin 7.9 L Hematocrit 24.5 L Mean Corpuscular Volume 92.8 Mean Corpuscular Hemoglobin 29.9 Mean Corpuscular Hemoglobin Concent 32.2 Red Cell Distribution Width 15.7 H Platelet Count 277 280 Mean Platelet Volume 11.4 H Neutrophils % Eosinophils % Neutrophils # Eosinophils # Prothrombin Time 17.2 #H Prothrombin Time Ratio 1.3 INR International Normalized Ratio 1.40 Activated Partial Thromboplast Time 38.5 H Thrombin Time Pending Lactic Acid Level 2.0 Medications Medications Current Medications Ondansetron HCl (Zofran Inj) 4 mg Q6H PRN IV NAUSEA AND/OR VOMITING; Start 01/04 at 19:30 Acetaminophen/ Hydrocodone Bitart ([place] (5/325)) 1 tab Q6H PRN PO MODERATE PAIN LEVEL 4-6; Start 01/04/17 at 19:30 Morphine Sulfate (morphine) 2 mg Q4H PRN IV SEVERE PAIN LEVEL 7-10 Last administered on 01/12/17 11:19; Admin Dose 2 MG; Start 01/04/17 at 19:30 Docusate Sodium (Colace) 100 mg Q12H PRN PO CONSTIPATION; Start 01/04/17 at 19: 30 Magnesium Hydroxide (Milk Of Mag) 30 ml DAILY PRN PO CONSTIPATION; Start at 19:30 Sodium Biphosphate/ Sodium Phosphate (Fleet Enema) 133 ml DAILY PRN [place] CONSTIPATION; Start 01/04/17 at 19:30 Heparin Sodium (Porcine) (Heparin (5000 Units/0.5 ml)) 5,000 unit Q12 SC Last administered on 01/15/17 22:11; Admin Dose 5,000 UNIT; Start 01/04/17 at 21:00; Status Future hold Lorazepam (Ativan) 0.5 mg Q6H PRN IV ANXIETY Last administered on 01/08/17 05: 58; Admin Dose 0.5 MG; Start 01/04/17 at 19:30 Hydralazine HCl (Apresoline) 10 mg Q6H PRN IV ELEVATED BLOOD PRESSURE; Start at 19:30 Nitroglycerin (Nitroglycerin (Sl Tab) 0.4 Mg) 1 tab Q5M PRN SL ANGINA; Start at 19:30 Phenobarbital (Luminal) 64.8 mg BID PO Last administered on 01/04/17 23:45; Admin Dose 64.8 MG; Start 01/04/17 at 21:00; Status Future Hold Topiramate (Topamax) 200 mg BID PO ; Start 01/05/17 at 21:00; Status Future Hold Miscellaneous Information 1 ea NOTE XX ; Start 01/04/17 at 19:30 Glucose (Glutose) 15 gm Q15M PRN PO DECREASED GLUCOSE; Start 01/04/17 at 19:30 Glucose (Glutose) 22.5 gm Q15M PRN PO DECREASED GLUCOSE; Start 01/04/17 at 19:30 Dextrose (D50w Syringe) 25 ml Q15M PRN IV DECREASED GLUCOSE Last administered on 01/08/17 05:36; Admin Dose 25 ML; Start 01/04/17 at 19:30 Dextrose (D50w Syringe) 50 ml Q15M PRN IV DECREASED GLUCOSE; Start 01/04/17 at 19:30 Glucagon (Glucagen) 1 mg Q15M PRN IM DECREASED GLUCOSE; Start 01/04/17 at 19:30 Glucose (Glutose) 15 gm Q15M PRN BUCCAL DECREASED GLUCOSE; Start 01/04/17 at 19: 30 Phenytoin (Dilantin Susp Cup) 100 mg TID PO Last administered on 01/04/17 23:44 ; Admin Dose 100 MG; Start 01/04/17 at 21:50; Status Future Hold Clonazepam 0.5 mg 0.5 mg Q8H PO Last administered on 01/04/17 23:45; Admin Dose 0.5 MG; Start 01/04/17 at 23:00; Status Future Hold Norepinephrine 16 mg/Dextrose 500 ml @ 1.87 mls/hr TITRATE IV Last administered on 01/07/17 00:23; Admin Dose 15 MLS/HR; Start 01/05/17 at 00:30 Fentanyl 100 ml @ 2.5 mls/hr TITRATE IV Last administered on 01/15/17 17:56; Admin Dose 0.6 MLS/HR; Start 01/05/17 at 08:39 Midazolam HCl 50 ml @ 1 mls/hr TITRATE IV Last administered on 01/16/17 07:06 ; Admin Dose 5 MLS/HR; Start 01/05/17 at 08:41 Levetiracetam 100 ml @ 400 mls/hr Q12 IVPB Last administered on 01/15/17 21: 15; Admin Dose 400 MLS/HR; Start 01/05/17 at 11:30 Vasopressin 60 unit/Dextrose 60 ml @ 1.2 mls/hr Q12H IV Last administered on 22:32; Admin Dose 2.4 MLS/HR; Start 01/05/17 at 17:30 Epinephrine 4 mg/ Sodium Chloride 250 ml @ 0 mls/hr TITRATE IV ; Start 01/05/17 at 18:30 Phenylephrine HCl/ Dextrose (Robert-Syneph/D5W) 500 ml @ 18.75 mls/ hr TITRATE IV Last administered on 01/07/17 23:21; Admin Dose 26.25 MLS/HR; Start 01/05/17 at 20:30 Acetaminophen (Tylenol Liquid) 650 mg Q4H PRN NGT PAIN AND OR ELEVATED TEMP Last administered on 01/06/17 04:29; Admin Dose 650 MG; Start 01/06/17 at 04:30 Insulin Glargine 10 unit 10 unit DAILY SC Last administered on 01/07/17 08:19; Admin Dose 10 UNIT; Start 01/06/17 at 14:00; Status Future Hold Acetaminophen (Ofirmev 1000mg/ 100ml Iv) 100 ml @ 400 mls/hr Q6H PRN IVPB FEVER Last administered on 01/15/17 13:30; Admin Dose 400 MLS/HR; Start at 06:30 IV Flush (NS 10 ml) 10 ml PRN PRN IV IV PROTOCOL; Start 01/10/17 at 11:30 Amiodarone HCl (Cordarone) 200 mg BID GTB Last administered on 01/15/17 22:03 ; Admin Dose 200 MG; Start 01/11/17 at 12:00 Diagnostic Test (Pha) (Accu-Chek) 1 ea Q4H XX Last administered on 01/15/17 17 :57; Admin Dose 1 EA; Start 01/11/17 at 17:00 Epoetin Mina 48127 units 10,000 units MoWeFr@17 SC Last administered on 18:30; Admin Dose 10,000 UNITS; Start 01/13/17 at 17:00 Ferric Sodium Gluconate Complex/ Sodium Chloride (Ferrlecit/NS) 110 ml @ 110 mls/hr Q24H IVPB Last administered on 01/15/17 10:12; Admin Dose 110 MLS/HR; Start 01/12/17 at 10:00; Stop 01/16/17 at 10:59 Insulin Aspart (Adult SC Insulin - Moder... Q4 SC Last administered on 18:10; Admin Dose 2 UNIT; Start 01/13/17 at 09:00 Meropenem/Sodium Chloride 50 ml @ 200 mls/hr Q12H IVPB Last administered on 22:08; Admin Dose 200 MLS/HR; Start 01/13/17 at 10:00 Total Parenteral Nutrition 1,000 ml @ 50 mls/hr Q20H IV Last administered on 02:27; Admin Dose 50 MLS/HR; Start 01/13/17 at 14:00 Pantoprazole 80 mg/Sodium Chloride 100 ml @ 10 mls/hr Q10H IV Last administered on 01/15/17 22:05; Admin Dose 10 MLS/HR; Start 01/14/17 at 06:00 Octreotide Acetate 500 mcg/ Sodium Chloride 50 ml @ 2.5 mls/hr Q20H IV Last administered on 01/16/17 02:29; Admin Dose 2.5 MLS/HR; Start 01/14/17 at 06:30 Vancomycin HCl (Vancocin) 250 ml @ 125 mls/hr Q72H IVPB Last administered on 05:58; Admin Dose 125 MLS/HR; Start 01/16/17 at 06:00 Metoprolol Tartrate (Lopressor) 25 mg BID PO Last administered on 01/15/17 23: 12; Admin Dose 25 MG; Start 01/15/17 at 15:00 Al Hydrox/Mg Hydrox/Simethicone (Mag-Al Plus) 30 ml Q4 GTB Last administered on 01/16/17 05:20; Admin Dose 30 ML; Start 01/15/17 at 17:00 FRANCIS JULES MD Jan 16, 2017 07:42
--- NOTE | 2017-01-16 08:04 | RADRPT ---
PROCEDURE: XR Chest. CLINICAL INDICATION: Shortness of breath. TECHNIQUE: Single frontal view. COMPARISON: 01/14/2017. FINDINGS: The endotracheal tube, nasogastric tube, right arm PICC line remain in satisfactory position. There is bilateral pulmonary air space disease, worse than seen previously. The heart size is normal. There are moderate bilateral pleural effusions. There is no pneumothorax. IMPRESSION: 1. Worse appearance of the lungs. 2. No other change from 01/14/2017. RPTAT: QQ .Larry Box MD, MD Date Time Electronically viewed and signed by .Larry Box MD, MD on 01/16/2017 08:04 .R/
[2017-01-16] MEDS: METOPROLOL 25 MG TAB PO SCH ×2 (09:00→23:09)
[2017-01-16] MEDS: VASOPRESSIN 60 UNIT in DEXTROSE 5% 57 ML IV SCH ×2 (09:00→17:30)
[2017-01-16] MEDS: BALSAM PERU/CASTOR OIL 60 GM TUBE TOP SCH (09:00)
[2017-01-16 09:50] LABS: LYMPHOCYTES # 2.1 10^3/ul (0.8-2.9); MAGNESIUM 1.7 mg/dl (1.7-2.5); MONOCYTE # 0.3 10^3/ul (0.3-0.9); NEUTROPHIL # 25.3 10^3/ul (1.6-7.5); PHOSPHORUS 5.4 mg/dl (2.5-4.9)
[2017-01-16 10:15] LABS: POST-TRANSFUSION BILIRUBIN 0.4 mg/dl; PRETRANSFUSION BILIRUBIN 0.6 mg/dl
[2017-01-16 10:34] LABS: ALBUMIN 2.9 g/dl (3.3-4.9); ALBUMIN/GLOBULIN RATIO 0.78; BILIRUBIN,DIRECT 0.2 mg/dl (0.00-0.20); BILIRUBIN,INDIRECT 0.3 mg/dl (0-1.1); BILIRUBIN,TOTAL 0.5 mg/dl (0.2-1.3); CALCIUM 7.8 mg/dl (8.4-10.2); CREATININE 3.29 mg/dl (0.44-1.00); POTASSIUM 3.5 mmol/L (3.5-5.1); TOTAL PROTEIN 6.6 g/dl (6.1-8.1)
[2017-01-16] MEDS: HEPARIN 5,000 UNIT/0.5 ML VIAL SC SCH ×2 (10:37→23:11)
--- NOTE | 2017-01-16 10:58 | CONS ---
Date/Time of Note Date/Time of Note DATE: 01/16/17 TIME: 10:54 Consultation Date/Type/Reason Admit Date/Time Jan 04, 2017 at 19:10 Type of Consultation: Palliative care Hx of Present Illness Sepsii sysdrome Delirium Acute Resopiratoory Failure GI bleed ARF on HD Full Code status All informtion is taken from medical records No family are available at this time Plan Family conference Plan of Care Address Code Status Constitutional: other Respiratory: no complaints Cardiovascular: no complaints, No chest pain, No edema, No lightheadedness, No orthopenea, No other, No palpitations, No paroxysmal nocturnal dyspnea Gastrointestinal: no complaints Genitourinary: no complaints Musculoskeletal: no complaints Skin: no complaints Psychological: No nl mood/affect Past Medical History Medical History: diabetes Past Surgical History Past Surgical Hx: other (Skin grafts, seizure disorder) Social History Alcohol Use: none Smoking Status: Never smoker Drug Use: none Exam/Review of Systems Vital Signs Vitals Vital Signs Date Time Temp Pulse Resp B/P Pulse Ox O2 Delivery O2 Flow Rate FiO2 01/16/17 09:07 117 26 95 30 01/16/17 07:00 160/89 Mechanical Ventilator 01/16/17 04:00 99.8 Intake and Output 01/15/17 01/15/17 01/16/17 15:00 23:00 07:00 Intake Total 922.0 ml 593.5 ml 588.0 ml Output Total 570 ml 595 ml 540 ml Balance 352.0 ml -1.5 ml 48.0 ml Exam Head: No atraumatic, No hematomas, No lacerations, No normocephalic, No other Eyes: No EOMI, No PERRL, No fundi, disc, No icteric, No nl conjunctiva, No nl lids, No nl sclera, No other Respiratory: crackles/rales, diminished breath sounds Cardiovascular: nl pulses, regular rate and rhythm Gastrointestinal: bowel sounds Extremities: normal pulses Results Result Diagram: 01/16/17 0540 01/15/17 0500 Results 24 hrs Laboratory Tests Test 01/15/17 13:42 01/15/17 18:02 01/15/17 21:42 01/16/17 01:15 Bedside Glucose 135 151 119 136 Test 01/16/17 05:00 01/16/17 05:16 01/16/17 05:40 01/16/17 10:13 White Blood Count 29.4 H Red Blood Count 2.64 L Hemoglobin 7.9 L Hematocrit 24.5 L Mean Corpuscular Volume 92.8 Mean Corpuscular Hemoglobin 29.9 Mean Corpuscular Hemoglobin Concent 32.2 Red Cell Distribution Width 15.7 H Platelet Count 277 280 Mean Platelet Volume 11.4 H Neutrophils % 86.0 H Band Neutrophils % 3.0 Lymphocytes % 7.0 L Monocytes % 1.0 Eosinophils % Metamyelocytes % 3.0 H Neutrophils # 25.3 H Lymphocytes # 2.1 Monocytes # 0.3 Eosinophils # Metamyelocytes # 0.9 Phosphorus Level 5.4 H Magnesium Level 1.7 Bedside Glucose 134 127 Prothrombin Time 17.2 #H Prothrombin Time Ratio 1.3 INR International Normalized Ratio 1.40 Activated Partial Thromboplast Time 38.5 H Thrombin Time 15.7 Sodium Level 145 H Potassium Level 3.5 Chloride Level 104 Carbon Dioxide Level 25 Anion Gap 20 H Blood Urea Nitrogen 64 H Creatinine 3.29 H Glucose Level 112 Lactic Acid Level 2.0 Calcium Level 7.8 L Total Bilirubin 0.5 Direct Bilirubin 0.20 # Indirect Bilirubin 0.3 Aspartate Amino Transf (AST/SGOT) 49 H Alanine Aminotransferase (ALT/SGPT) 26 Alkaline Phosphatase 251 H Total Protein 6.6 Albumin 2.9 L Globulin 3.70 H Albumin/Globulin Ratio 0.78 Medications Medications Current Medications Ondansetron HCl (Zofran Inj) 4 mg Q6H PRN IV NAUSEA AND/OR VOMITING; Start 01/04 at 19:30 Acetaminophen/ Hydrocodone Bitart ([place] (5/325)) 1 tab Q6H PRN PO MODERATE PAIN LEVEL 4-6; Start 01/04/17 at 19:30 Morphine Sulfate (morphine) 2 mg Q4H PRN IV SEVERE PAIN LEVEL 7-10 Last administered on 01/12/17t 11:19; Admin Dose 2 MG; Start 01/04/17 at 19:30 Docusate Sodium (Colace) 100 mg Q12H PRN PO CONSTIPATION; Start 01/04/17 at 19: 30 Magnesium Hydroxide (Milk Of Mag) 30 ml DAILY PRN PO CONSTIPATION; Start at 19:30 Sodium Biphosphate/ Sodium Phosphate (Fleet Enema) 133 ml DAILY PRN [place] CONSTIPATION; Start 01/04/17 at 19:30 Heparin Sodium (Porcine) (Heparin (5000 Units/0.5 ml)) 5,000 unit Q12 SC Last administered on 01/15/17 22:11; Admin Dose 5,000 UNIT; Start 01/04/17 at 21:00; Status Future hold Lorazepam (Ativan) 0.5 mg Q6H PRN IV ANXIETY Last administered on 01/08/17 05: 58; Admin Dose 0.5 MG; Start 01/04/17 at 19:30 Hydralazine HCl (Apresoline) 10 mg Q6H PRN IV ELEVATED BLOOD PRESSURE; Start at 19:30 Nitroglycerin (Nitroglycerin (Sl Tab) 0.4 Mg) 1 tab Q5M PRN SL ANGINA; Start at 19:30 Phenobarbital (Luminal) 64.8 mg BID PO Last administered on 01/04/17 23:45; Admin Dose 64.8 MG; Start 01/04/17 at 21:00; Status Future Hold Topiramate (Topamax) 200 mg BID PO ; Start 01/05/17 at 21:00; Status Future Hold Miscellaneous Information 1 ea NOTE XX ; Start 01/04/17 at 19:30 Glucose (Glutose) 15 gm Q15M PRN PO DECREASED GLUCOSE; Start 01/04/17 at 19:30 Glucose (Glutose) 22.5 gm Q15M PRN PO DECREASED GLUCOSE; Start 01/04/17 at 19:30 Dextrose (D50w Syringe) 25 ml Q15M PRN IV DECREASED GLUCOSE Last administered on 01/08/17 05:36; Admin Dose 25 ML; Start 01/04/17 at 19:30 Dextrose (D50w Syringe) 50 ml Q15M PRN IV DECREASED GLUCOSE; Start 01/04/17 at 19:30 Glucagon (Glucagen) 1 mg Q15M PRN IM DECREASED GLUCOSE; Start 01/04/17 at 19:30 Glucose (Glutose) 15 gm Q15M PRN BUCCAL DECREASED GLUCOSE; Start 01/04/17 at 19: 30 Phenytoin (Dilantin Susp Cup) 100 mg TID PO Last administered on 01/04/17 23:44 ; Admin Dose 100 MG; Start 01/04/17 at 21:50; Status Future Hold Clonazepam 0.5 mg 0.5 mg Q8H PO Last administered on 01/04/17 23:45; Admin Dose 0.5 MG; Start 01/04/17 at 23:00; Status Future Hold Norepinephrine 16 mg/Dextrose 500 ml @ 1.87 mls/hr TITRATE IV Last administered on 01/07/17 00:23; Admin Dose 15 MLS/HR; Start 01/05/17 at 00:30 Fentanyl 100 ml @ 2.5 mls/hr TITRATE IV Last administered on 01/15/17 17:56; Admin Dose 0.6 MLS/HR; Start 01/05/17 at 08:39 Midazolam HCl 50 ml @ 1 mls/hr TITRATE IV Last administered on 01/16/17 07:06 ; Admin Dose 5 MLS/HR; Start 01/05/17 at 08:41 Levetiracetam 100 ml @ 400 mls/hr Q12 IVPB Last administered on 01/15/17 21: 15; Admin Dose 400 MLS/HR; Start 01/05/17 at 11:30 Vasopressin 60 unit/Dextrose 60 ml @ 1.2 mls/hr Q12H IV Last administered on 22:32; Admin Dose 2.4 MLS/HR; Start 01/05/17 at 17:30 Epinephrine 4 mg/ Sodium Chloride 250 ml @ 0 mls/hr TITRATE IV ; Start 01/05/17 at 18:30 Phenylephrine HCl/ Dextrose (Robert-Syneph/D5W) 500 ml @ 18.75 mls/ hr TITRATE IV Last administered on 01/07/17 23:21; Admin Dose 26.25 MLS/HR; Start 01/05/17 at 20:30 Acetaminophen (Tylenol Liquid) 650 mg Q4H PRN NGT PAIN AND OR ELEVATED TEMP Last administered on 01/06/17 04:29; Admin Dose 650 MG; Start 01/06/17 at 04:30 Insulin Glargine 10 unit 10 unit DAILY SC Last administered on 01/07/17 08:19; Admin Dose 10 UNIT; Start 01/06/17 at 14:00; Status Future Hold Acetaminophen (Ofirmev 1000mg/ 100ml Iv) 100 ml @ 400 mls/hr Q6H PRN IVPB FEVER Last administered on 01/15/17 13:30; Admin Dose 400 MLS/HR; Start at 06:30 IV Flush (NS 10 ml) 10 ml PRN PRN IV IV PROTOCOL; Start 01/10/17 at 11:30 Amiodarone HCl (Cordarone) 200 mg BID GTB Last administered on 01/15/17 22:03 ; Admin Dose 200 MG; Start 01/11/17 at 12:00 Diagnostic Test (Pha) (Accu-Chek) 1 ea Q4H XX Last administered on 01/15/17 17 :57; Admin Dose 1 EA; Start 01/11/17 at 17:00 Epoetin Mina 87377 units 10,000 units MoWeFr@17 SC Last administered on 18:30; Admin Dose 10,000 UNITS; Start 01/13/17 at 17:00 Ferric Sodium Gluconate Complex/ Sodium Chloride (Ferrlecit/NS) 110 ml @ 110 mls/hr Q24H IVPB Last administered on 01/15/17 10:12; Admin Dose 110 MLS/HR; Start 01/12/17 at 10:00; Stop 01/16/17 at 10:59 Insulin Aspart (Adult SC Insulin - Moder... Q4 SC Last administered on 18:10; Admin Dose 2 UNIT; Start 01/13/17 at 09:00 Meropenem/Sodium Chloride 50 ml @ 200 mls/hr Q12H IVPB Last administered on 22:08; Admin Dose 200 MLS/HR; Start 01/13/17 at 10:00 Total Parenteral Nutrition 1,000 ml @ 50 mls/hr Q20H IV Last administered on 02:27; Admin Dose 50 MLS/HR; Start 01/13/17 at 14:00 Pantoprazole 80 mg/Sodium Chloride 100 ml @ 10 mls/hr Q10H IV Last administered on 01/15/17 22:05; Admin Dose 10 MLS/HR; Start 01/14/17 at 06:00 Octreotide Acetate 500 mcg/ Sodium Chloride 50 ml @ 2.5 mls/hr Q20H IV Last administered on 01/16/17 02:29; Admin Dose 2.5 MLS/HR; Start 01/14/17 at 06:30 Vancomycin HCl (Vancocin) 250 ml @ 125 mls/hr Q72H IVPB Last administered on 05:58; Admin Dose 125 MLS/HR; Start 01/16/17 at 06:00 Metoprolol Tartrate (Lopressor) 25 mg BID PO Last administered on 01/15/17 23: 12; Admin Dose 25 MG; Start 01/15/17 at 15:00 Al Hydrox/Mg Hydrox/Simethicone (Mag-Al Plus) 30 ml Q4 GTB Last administered on 01/16/17 05:20; Admin Dose 30 ML; Start 01/15/17 at 17:00 JEREMIE TAVAREZ Jan 16, 2017 10:57
[2017-01-16] MEDS: ACETAMINOPHEN 1000MG/100ML IV 100 ML IVPB PRN (11:35)
[2017-01-16] MEDS: FENTAnyl (DRIP) 1000 mcg/100mL 100 ML IV SCH ×2 (11:35→23:46)
--- NOTE | 2017-01-16 11:56 | PN ---
Date/Time of Note Date/Time of Note DATE: 01/16/17 TIME: 11:54 Assessment/Plan VTE Prophylaxis VTE Prophylaxis Intervention: SCD's Lines/Catheters IV Catheter Type (from Nrs): Peripheral IV Assessment/Plan Chief Complaint/Hosp Course 1. Severe systemic shock with multiorgan failure secondary to severe pancreatitis superimposed by sepsis secondary to staph bacteremia, bilateral pneumonia, E. coli UTI. * Improved? , off pressors at least 2. Severe gallstone pancreatitis * Status post ERCP with sphincterectomy and removal of common bile duct stones, placement of common bile duct stent done January 13, 2017 3. Probable GI bleed as well as abdominal distention 4. Acute respiratory failure secondary to #1 patient remains ventilator dependent 5. Acute kidney injury secondary to #1 now requiring hemodialysis 6. Persistent tachycardia likely secondary to #1 on amiodarone 7. Bilateral pneumonia with bilateral effusions R> L which is likely reactive from #2 * persistent despite right-sided thoracentesis January 13, 2017 8. Normocytic normochromic anemia: Worsening 9. History of seizure disorder on Keppra 10. Chronic debility on TPN 11. Persistent tachycardia: Plan: Continue ICU monitoring and vent support and sedation as indicated Continue Protonix and octreotide drips, continue to hold anticoagulation, follow -up H&H, follow GI plan Continue antibiotics per ID Continue TPN as well as gentle fluid hydration, appreciate cardiology input and management of tachycardia, patient is on amiodarone Closely monitor hemoglobin every 6 hours, transfuse as needed Continue Keppra for seizures Tachycardia is consistent with severe pancreatitis, Appreciate all consultants Further interventions per clinical course Prognosis remains guarded Prophylaxis: SCDs/Protonix drip Problems: Subjective 24 Hr Interval Summary Subjective hx not possible: pt non-verbal Exam/Review of Systems Vital Signs Vitals Vital Signs Date Time Temp Pulse Resp B/P Pulse Ox O2 Delivery O2 Flow Rate FiO2 01/16/17 09:07 117 26 95 30 01/16/17 07:00 160/89 Mechanical Ventilator 01/16/17 04:00 99.8 Intake and Output 01/15/17 01/15/17 01/16/17 15:00 23:00 07:00 Intake Total 922.0 ml 593.5 ml 588.0 ml Output Total 570 ml 595 ml 540 ml Balance 352.0 ml -1.5 ml 48.0 ml Exam Constitutional: non-verbal ENMT: intubated Respiratory: clear to auscultation Cardiovascular: regular rate and rhythm Gastrointestinal: soft, No distended Musculoskeletal: nl extremities to inspection Results Result Diagram: 01/16/17 0540 01/16/17 0540 Results 24 hrs Laboratory Tests Test 01/15/17 13:42 01/15/17 18:02 01/15/17 21:42 01/16/17 01:15 Bedside Glucose 135 151 119 136 Test 01/16/17 05:00 01/16/17 05:16 01/16/17 05:40 01/16/17 10:13 White Blood Count 29.4 H Red Blood Count 2.64 L Hemoglobin 7.9 L Hematocrit 24.5 L Mean Corpuscular Volume 92.8 Mean Corpuscular Hemoglobin 29.9 Mean Corpuscular Hemoglobin Concent 32.2 Red Cell Distribution Width 15.7 H Platelet Count 277 280 Mean Platelet Volume 11.4 H Neutrophils % 86.0 H Band Neutrophils % 3.0 Lymphocytes % 7.0 L Monocytes % 1.0 Eosinophils % Metamyelocytes % 3.0 H Neutrophils # 25.3 H Lymphocytes # 2.1 Monocytes # 0.3 Eosinophils # Metamyelocytes # 0.9 Phosphorus Level 5.4 H Magnesium Level 1.7 Bedside Glucose 134 127 Prothrombin Time 17.2 #H Prothrombin Time Ratio 1.3 INR International Normalized Ratio 1.40 Activated Partial Thromboplast Time 38.5 H Thrombin Time 15.7 Sodium Level 145 H Potassium Level 3.5 Chloride Level 104 Carbon Dioxide Level 25 Anion Gap 20 H Blood Urea Nitrogen 64 H Creatinine 3.29 H Glucose Level 112 Lactic Acid Level 2.0 Calcium Level 7.8 L Total Bilirubin 0.5 Direct Bilirubin 0.20 # Indirect Bilirubin 0.3 Aspartate Amino Transf (AST/SGOT) 49 H Alanine Aminotransferase (ALT/SGPT) 26 Alkaline Phosphatase 251 H Total Protein 6.6 Albumin 2.9 L Globulin 3.70 H Albumin/Globulin Ratio 0.78 Medications Medications Current Medications Ondansetron HCl (Zofran Inj) 4 mg Q6H PRN IV NAUSEA AND/OR VOMITING; Start 01/04 at 19:30 Acetaminophen/ Hydrocodone Bitart ([place] (5/325)) 1 tab Q6H PRN PO MODERATE PAIN LEVEL 4-6; Start 01/04/17 at 19:30 Morphine Sulfate (morphine) 2 mg Q4H PRN IV SEVERE PAIN LEVEL 7-10 Last administered on 01/12/17 11:19; Admin Dose 2 MG; Start 01/04/17 at 19:30 Docusate Sodium (Colace) 100 mg Q12H PRN PO CONSTIPATION; Start 01/04/17 at 19: 30 Magnesium Hydroxide (Milk Of Mag) 30 ml DAILY PRN PO CONSTIPATION; Start at 19:30 Sodium Biphosphate/ Sodium Phosphate (Fleet Enema) 133 ml DAILY PRN [place] CONSTIPATION; Start 01/04/17 at 19:30 Heparin Sodium (Porcine) (Heparin (5000 Units/0.5 ml)) 5,000 unit Q12 SC Last administered on 01/15/17 22:11; Admin Dose 5,000 UNIT; Start 01/04/17 at 21:00; Status Future hold Lorazepam (Ativan) 0.5 mg Q6H PRN IV ANXIETY Last administered on 01/08/17 05: 58; Admin Dose 0.5 MG; Start 01/04/17 at 19:30 Hydralazine HCl (Apresoline) 10 mg Q6H PRN IV ELEVATED BLOOD PRESSURE; Start at 19:30 Nitroglycerin (Nitroglycerin (Sl Tab) 0.4 Mg) 1 tab Q5M PRN SL ANGINA; Start at 19:30 Phenobarbital (Luminal) 64.8 mg BID PO Last administered on 01/04/17 23:45; Admin Dose 64.8 MG; Start 01/04/17 at 21:00; Status Future Hold Topiramate (Topamax) 200 mg BID PO ; Start 01/05/17 at 21:00; Status Future Hold Miscellaneous Information 1 ea NOTE XX ; Start 01/04/17 at 19:30 Glucose (Glutose) 15 gm Q15M PRN PO DECREASED GLUCOSE; Start 01/04/17 at 19:30 Glucose (Glutose) 22.5 gm Q15M PRN PO DECREASED GLUCOSE; Start 01/04/17 at 19:30 Dextrose (D50w Syringe) 25 ml Q15M PRN IV DECREASED GLUCOSE Last administered on 01/08/17 05:36; Admin Dose 25 ML; Start 01/04/17 at 19:30 Dextrose (D50w Syringe) 50 ml Q15M PRN IV DECREASED GLUCOSE; Start 01/04/17 at 19:30 Glucagon (Glucagen) 1 mg Q15M PRN IM DECREASED GLUCOSE; Start 01/04/17 at 19:30 Glucose (Glutose) 15 gm Q15M PRN BUCCAL DECREASED GLUCOSE; Start 01/04/17 at 19: 30 Phenytoin (Dilantin Susp Cup) 100 mg TID PO Last administered on 01/04/17 23:44 ; Admin Dose 100 MG; Start 01/04/17 at 21:50; Status Future Hold Clonazepam 0.5 mg 0.5 mg Q8H PO Last administered on 01/04/17 23:45; Admin Dose 0.5 MG; Start 01/04/17 at 23:00; Status Future Hold Norepinephrine 16 mg/Dextrose 500 ml @ 1.87 mls/hr TITRATE IV Last administered on 01/07/17 00:23; Admin Dose 15 MLS/HR; Start 01/05/17 at 00:30 Fentanyl 100 ml @ 2.5 mls/hr TITRATE IV Last administered on 01/16/17 11:35; Admin Dose 5 MLS/HR; Start 01/05/17 at 08:39 Midazolam HCl 50 ml @ 1 mls/hr TITRATE IV Last administered on 01/16/17 07:06 ; Admin Dose 5 MLS/HR; Start 01/05/17 at 08:41 Levetiracetam 100 ml @ 400 mls/hr Q12 IVPB Last administered on 01/15/17 21: 15; Admin Dose 400 MLS/HR; Start 01/05/17 at 11:30 Vasopressin 60 unit/Dextrose 60 ml @ 1.2 mls/hr Q12H IV Last administered on 22:32; Admin Dose 2.4 MLS/HR; Start 01/05/17 at 17:30 Epinephrine 4 mg/ Sodium Chloride 250 ml @ 0 mls/hr TITRATE IV ; Start 01/05/17 at 18:30 Phenylephrine HCl/ Dextrose (Robert-Syneph/D5W) 500 ml @ 18.75 mls/ hr TITRATE IV Last administered on 01/07/17 23:21; Admin Dose 26.25 MLS/HR; Start 01/05/17 at 20:30 Acetaminophen (Tylenol Liquid) 650 mg Q4H PRN NGT PAIN AND OR ELEVATED TEMP Last administered on 01/06/17 04:29; Admin Dose 650 MG; Start 01/06/17 at 04:30 Insulin Glargine 10 unit 10 unit DAILY SC Last administered on 01/07/17 08:19; Admin Dose 10 UNIT; Start 01/06/17 at 14:00; Status Future Hold Acetaminophen (Ofirmev 1000mg/ 100ml Iv) 100 ml @ 400 mls/hr Q6H PRN IVPB FEVER Last administered on 01/16/17 11:35; Admin Dose 400 MLS/HR; Start at 06:30 IV Flush (NS 10 ml) 10 ml PRN PRN IV IV PROTOCOL; Start 01/10/17 at 11:30 Amiodarone HCl (Cordarone) 200 mg BID GTB Last administered on 01/15/17 22:03 ; Admin Dose 200 MG; Start 01/11/17 at 12:00 Diagnostic Test (Pha) (Accu-Chek) 1 ea Q4H XX Last administered on 01/15/17 17 :57; Admin Dose 1 EA; Start 01/11/17 at 17:00 Epoetin Mina (Epogen (Esrd)) 10,000 units MoWeFr@17 SC Last administered on 18:30; Admin Dose 10,000 UNITS; Start 01/13/17 at 17:00 Insulin Aspart (Adult SC Insulin - Moder... Q4 SC Last administered on 18:10; Admin Dose 2 UNIT; Start 01/13/17 at 09:00 Meropenem/Sodium Chloride 50 ml @ 200 mls/hr Q12H IVPB Last administered on 22:08; Admin Dose 200 MLS/HR; Start 01/13/17 at 10:00 Total Parenteral Nutrition 1,000 ml @ 50 mls/hr Q20H IV Last administered on 02:27; Admin Dose 50 MLS/HR; Start 01/13/17 at 14:00 Pantoprazole 80 mg/Sodium Chloride 100 ml @ 10 mls/hr Q10H IV Last administered on 01/15/17 22:05; Admin Dose 10 MLS/HR; Start 01/14/17 at 06:00 Octreotide Acetate 500 mcg/ Sodium Chloride 50 ml @ 2.5 mls/hr Q20H IV Last administered on 01/16/17 02:29; Admin Dose 2.5 MLS/HR; Start 01/14/17 at 06:30 Vancomycin HCl (Vancocin) 250 ml @ 125 mls/hr Q72H IVPB Last administered on 05:58; Admin Dose 125 MLS/HR; Start 01/16/17 at 06:00 Metoprolol Tartrate (Lopressor) 25 mg BID PO Last administered on 01/15/17 23: 12; Admin Dose 25 MG; Start 01/15/17 at 15:00 Al Hydrox/Mg Hydrox/Simethicone (Mag-Al Plus) 30 ml Q4 GTB Last administered on 01/16/17 09:58; Admin Dose 30 ML; Start 01/15/17 at 17:00 YING CASTAÑEDA Jan 16, 2017 11:56
--- NOTE | 2017-01-16 12:14 | CONS ---
Date/Time of Note Date/Time of Note DATE: 01/16/17 TIME: 12:10 Assessment/Plan Assessment/Plan Chief Complaint/Hosp Course No acute changes. Patient remains intubated, in no distress, off pressors. Temperature 99.8 with a T-max of 100.1 pulse 117 respirations 29 saturation 95 on 30 FiO2 WBC 29.4 H&H 7.9 and 24.5 platelets 277 neutrophils 86, bands 3 BN [address] of the abdomen and pelvis on January 14 revealed severe pancreatitis with surrounding edema and fluid, worse than seen previously Antibiotics: Vancomycin, meropenem day #11 Indwelling's: Endotracheal tube, NG tube right femoral Gael catheter, right PICC line, Matias Microbiology: Blood culture on admission grew coag negative staph species urine culture grew E. coli repeat blood and urine culture had been negative Physical examination: Chronically ill-appearing elderly woman who looks comfortable on vent. Head atraumatic normocephalic, sclera nonicteric. Neck is supple, trachea midline. Chest rise symmetrical, breath sounds diminished to bases Heart: S1, S2, tachycardic Abdomen soft bowel tones present. Extremities with trace edema, no cyanosis Assessment: 1. Severe sepsis, status post shock 2. Severe, acute pancreatitis 3. Choledocholithiasis, status post ERCP 01/12/17 with removal of the stone and stent placement 4. Coag negative staph bacteremia, likely contaminant 5. Acute respiratory failure 6. Acute renal failure requiring hemodialysis 7. Status post urinary tract infection Plan: Hemodynamically stable, with worsening pancreatitis per repeat CT, will add empiric antifungal coverage, continue antibiotics, vent support per pulmonary, nephrology/ GI recommendations. Discussed with staff Problems: Consultation Date/Type/Reason Admit Date/Time Jan 04, 2017 at 19:10 Initial Consult Date 01/11/17 Type of Consultation: ID Referring Provider: YING CASTAÑEDA Exam/Review of Systems Vital Signs Vitals Vital Signs Date Time Temp Pulse Resp B/P Pulse Ox O2 Delivery O2 Flow Rate FiO2 01/16/17 09:07 117 26 95 30 01/16/17 07:00 160/89 Mechanical Ventilator 01/16/17 04:00 99.8 Intake and Output 01/15/17 01/15/17 01/16/17 15:00 23:00 07:00 Intake Total 922.0 ml 593.5 ml 588.0 ml Output Total 570 ml 595 ml 540 ml Balance 352.0 ml -1.5 ml 48.0 ml Results Result Diagram: 01/16/17 0540 01/16/17 0540 Results 24 hrs Laboratory Tests Test 01/15/17 13:42 01/15/17 18:02 01/15/17 21:42 01/16/17 01:15 Bedside Glucose 135 151 119 136 Test 01/16/17 05:00 01/16/17 05:16 01/16/17 05:40 01/16/17 10:13 White Blood Count 29.4 H Red Blood Count 2.64 L Hemoglobin 7.9 L Hematocrit 24.5 L Mean Corpuscular Volume 92.8 Mean Corpuscular Hemoglobin 29.9 Mean Corpuscular Hemoglobin Concent 32.2 Red Cell Distribution Width 15.7 H Platelet Count 277 280 Mean Platelet Volume 11.4 H Neutrophils % 86.0 H Band Neutrophils % 3.0 Lymphocytes % 7.0 L Monocytes % 1.0 Eosinophils % Metamyelocytes % 3.0 H Neutrophils # 25.3 H Lymphocytes # 2.1 Monocytes # 0.3 Eosinophils # Metamyelocytes # 0.9 Phosphorus Level 5.4 H Magnesium Level 1.7 Bedside Glucose 134 127 Prothrombin Time 17.2 #H Prothrombin Time Ratio 1.3 INR International Normalized Ratio 1.40 Activated Partial Thromboplast Time 38.5 H Thrombin Time 15.7 Sodium Level 145 H Potassium Level 3.5 Chloride Level 104 Carbon Dioxide Level 25 Anion Gap 20 H Blood Urea Nitrogen 64 H Creatinine 3.29 H Glucose Level 112 Lactic Acid Level 2.0 Calcium Level 7.8 L Total Bilirubin 0.5 Direct Bilirubin 0.20 # Indirect Bilirubin 0.3 Aspartate Amino Transf (AST/SGOT) 49 H Alanine Aminotransferase (ALT/SGPT) 26 Alkaline Phosphatase 251 H Total Protein 6.6 Albumin 2.9 L Globulin 3.70 H Albumin/Globulin Ratio 0.78 Medications Medications Current Medications Ondansetron HCl (Zofran Inj) 4 mg Q6H PRN IV NAUSEA AND/OR VOMITING; Start 01/04 at 19:30 Acetaminophen/ Hydrocodone Bitart ([place] (5/325)) 1 tab Q6H PRN PO MODERATE PAIN LEVEL 4-6; Start 01/04/17 at 19:30 Morphine Sulfate (morphine) 2 mg Q4H PRN IV SEVERE PAIN LEVEL 7-10 Last administered on 01/12/17 11:19; Admin Dose 2 MG; Start 01/04/17 at 19:30 Docusate Sodium (Colace) 100 mg Q12H PRN PO CONSTIPATION; Start 01/04/17 at 19: 30 Magnesium Hydroxide (Milk Of Mag) 30 ml DAILY PRN PO CONSTIPATION; Start at 19:30 Sodium Biphosphate/ Sodium Phosphate (Fleet Enema) 133 ml DAILY PRN [place] CONSTIPATION; Start 01/04/17 at 19:30 Heparin Sodium (Porcine) (Heparin (5000 Units/0.5 ml)) 5,000 unit Q12 SC Last administered on 01/15/17 22:11; Admin Dose 5,000 UNIT; Start 01/04/17 at 21:00; Status Future hold Lorazepam (Ativan) 0.5 mg Q6H PRN IV ANXIETY Last administered on 01/08/17 05: 58; Admin Dose 0.5 MG; Start 01/04/17 at 19:30 Hydralazine HCl (Apresoline) 10 mg Q6H PRN IV ELEVATED BLOOD PRESSURE; Start at 19:30 Nitroglycerin (Nitroglycerin (Sl Tab) 0.4 Mg) 1 tab Q5M PRN SL ANGINA; Start at 19:30 Phenobarbital (Luminal) 64.8 mg BID PO Last administered on 01/04/17 23:45; Admin Dose 64.8 MG; Start 01/04/17 at 21:00; Status Future Hold Topiramate (Topamax) 200 mg BID PO ; Start 01/05/17 at 21:00; Status Future Hold Miscellaneous Information 1 ea NOTE XX ; Start 01/04/17 at 19:30 Glucose (Glutose) 15 gm Q15M PRN PO DECREASED GLUCOSE; Start 01/04/17 at 19:30 Glucose (Glutose) 22.5 gm Q15M PRN PO DECREASED GLUCOSE; Start 01/04/17 at 19:30 Dextrose (D50w Syringe) 25 ml Q15M PRN IV DECREASED GLUCOSE Last administered on 01/08/17 05:36; Admin Dose 25 ML; Start 01/04/17 at 19:30 Dextrose (D50w Syringe) 50 ml Q15M PRN IV DECREASED GLUCOSE; Start 01/04/17 at 19:30 Glucagon (Glucagen) 1 mg Q15M PRN IM DECREASED GLUCOSE; Start 01/04/17 at 19:30 Glucose (Glutose) 15 gm Q15M PRN BUCCAL DECREASED GLUCOSE; Start 01/04/17 at 19: 30 Phenytoin (Dilantin Susp Cup) 100 mg TID PO Last administered on 01/04/17 23:44 ; Admin Dose 100 MG; Start 01/04/17 at 21:50; Status Future Hold Clonazepam 0.5 mg 0.5 mg Q8H PO Last administered on 01/04/17 23:45; Admin Dose 0.5 MG; Start 01/04/17 at 23:00; Status Future Hold Norepinephrine 16 mg/Dextrose 500 ml @ 1.87 mls/hr TITRATE IV Last administered on 01/07/17 00:23; Admin Dose 15 MLS/HR; Start 01/05/17 at 00:30 Fentanyl 100 ml @ 2.5 mls/hr TITRATE IV Last administered on 01/16/17 11:35; Admin Dose 5 MLS/HR; Start 01/05/17 at 08:39 Midazolam HCl 50 ml @ 1 mls/hr TITRATE IV Last administered on 01/16/17 07:06 ; Admin Dose 5 MLS/HR; Start 01/05/17 at 08:41 Levetiracetam 100 ml @ 400 mls/hr Q12 IVPB Last administered on 01/15/17 21: 15; Admin Dose 400 MLS/HR; Start 01/05/17 at 11:30 Vasopressin 60 unit/Dextrose 60 ml @ 1.2 mls/hr Q12H IV Last administered on 22:32; Admin Dose 2.4 MLS/HR; Start 01/05/17 at 17:30 Epinephrine 4 mg/ Sodium Chloride 250 ml @ 0 mls/hr TITRATE IV ; Start 01/05/17 at 18:30 Phenylephrine HCl/ Dextrose (Robert-Syneph/D5W) 500 ml @ 18.75 mls/ hr TITRATE IV Last administered on 01/07/17 23:21; Admin Dose 26.25 MLS/HR; Start 01/05/17 at 20:30 Acetaminophen (Tylenol Liquid) 650 mg Q4H PRN NGT PAIN AND OR ELEVATED TEMP Last administered on 01/06/17 04:29; Admin Dose 650 MG; Start 01/06/17 at 04:30 Insulin Glargine 10 unit 10 unit DAILY SC Last administered on 01/07/17 08:19; Admin Dose 10 UNIT; Start 01/06/17 at 14:00; Status Future Hold Acetaminophen (Ofirmev 1000mg/ 100ml Iv) 100 ml @ 400 mls/hr Q6H PRN IVPB FEVER Last administered on 01/16/17 11:35; Admin Dose 400 MLS/HR; Start at 06:30 IV Flush (NS 10 ml) 10 ml PRN PRN IV IV PROTOCOL; Start 01/10/17 at 11:30 Amiodarone HCl (Cordarone) 200 mg BID GTB Last administered on 01/15/17 22:03 ; Admin Dose 200 MG; Start 01/11/17 at 12:00 Diagnostic Test (Pha) (Accu-Chek) 1 ea Q4H XX Last administered on 01/15/17 17 :57; Admin Dose 1 EA; Start 01/11/17 at 17:00 Epoetin Mina (Epogen (Esrd)) 10,000 units MoWeFr@17 SC Last administered on 18:30; Admin Dose 10,000 UNITS; Start 01/13/17 at 17:00 Insulin Aspart (Adult SC Insulin - Moder... Q4 SC Last administered on 18:10; Admin Dose 2 UNIT; Start 01/13/17 at 09:00 Meropenem/Sodium Chloride 50 ml @ 200 mls/hr Q12H IVPB Last administered on 22:08; Admin Dose 200 MLS/HR; Start 01/13/17 at 10:00 Total Parenteral Nutrition 1,000 ml @ 50 mls/hr Q20H IV Last administered on 02:27; Admin Dose 50 MLS/HR; Start 01/13/17 at 14:00 Pantoprazole 80 mg/Sodium Chloride 100 ml @ 10 mls/hr Q10H IV Last administered on 01/15/17 22:05; Admin Dose 10 MLS/HR; Start 01/14/17 at 06:00 Octreotide Acetate 500 mcg/ Sodium Chloride 50 ml @ 2.5 mls/hr Q20H IV Last administered on 01/16/17 02:29; Admin Dose 2.5 MLS/HR; Start 01/14/17 at 06:30 Vancomycin HCl (Vancocin) 250 ml @ 125 mls/hr Q72H IVPB Last administered on 05:58; Admin Dose 125 MLS/HR; Start 01/16/17 at 06:00 Metoprolol Tartrate (Lopressor) 25 mg BID PO Last administered on 01/15/17 23: 12; Admin Dose 25 MG; Start 01/15/17 at 15:00 Al Hydrox/Mg Hydrox/Simethicone (Mag-Al Plus) 30 ml Q4 GTB Last administered on 01/16/17 09:58; Admin Dose 30 ML; Start 01/15/17 at 17:00 MIKE TURCIOS NP Jan 16, 2017 12:14
--- NOTE | 2017-01-16 12:48 | CONS ---
Date/Time of Note Date/Time of Note DATE: 01/16/17 TIME: 12:20 Consult Date/Type/Reason Admit Date/Time Jan 04, 2017 at 19:10 Initial Consult Date 01/05/17 Ordering Provider: YING CASTAÑEDA Objective Vital Signs Date Time Temp Pulse Resp B/P Pulse Ox O2 Delivery O2 Flow Rate FiO2 01/16/17 09:07 117 26 95 30 01/16/17 07:00 160/89 Mechanical Ventilator 01/16/17 04:00 99.8 Intake and Output 01/15/17 01/15/17 01/16/17 15:00 23:00 07:00 Intake Total 922.0 ml 593.5 ml 588.0 ml Output Total 570 ml 595 ml 540 ml Balance 352.0 ml -1.5 ml 48.0 ml Results/Medications Result Diagram: 01/16/17 0540 01/16/17 0540 Results 24 hrs Laboratory Tests Test 01/15/17 13:42 01/15/17 18:02 01/15/17 21:42 01/16/17 01:15 Bedside Glucose 135 151 119 136 Test 01/16/17 05:00 01/16/17 05:16 01/16/17 05:40 01/16/17 10:13 White Blood Count 29.4 H Red Blood Count 2.64 L Hemoglobin 7.9 L Hematocrit 24.5 L Mean Corpuscular Volume 92.8 Mean Corpuscular Hemoglobin 29.9 Mean Corpuscular Hemoglobin Concent 32.2 Red Cell Distribution Width 15.7 H Platelet Count 277 280 Mean Platelet Volume 11.4 H Neutrophils % 86.0 H Band Neutrophils % 3.0 Lymphocytes % 7.0 L Monocytes % 1.0 Eosinophils % Metamyelocytes % 3.0 H Neutrophils # 25.3 H Lymphocytes # 2.1 Monocytes # 0.3 Eosinophils # Metamyelocytes # 0.9 Phosphorus Level 5.4 H Magnesium Level 1.7 Bedside Glucose 134 127 Prothrombin Time 17.2 #H Prothrombin Time Ratio 1.3 INR International Normalized Ratio 1.40 Activated Partial Thromboplast Time 38.5 H Thrombin Time 15.7 Sodium Level 145 H Potassium Level 3.5 Chloride Level 104 Carbon Dioxide Level 25 Anion Gap 20 H Blood Urea Nitrogen 64 H Creatinine 3.29 H Glucose Level 112 Lactic Acid Level 2.0 Calcium Level 7.8 L Total Bilirubin 0.5 Direct Bilirubin 0.20 # Indirect Bilirubin 0.3 Aspartate Amino Transf (AST/SGOT) 49 H Alanine Aminotransferase (ALT/SGPT) 26 Alkaline Phosphatase 251 H Total Protein 6.6 Albumin 2.9 L Globulin 3.70 H Albumin/Globulin Ratio 0.78 Medications Current Medications Ondansetron HCl (Zofran Inj) 4 mg Q6H PRN IV NAUSEA AND/OR VOMITING; Start 01/04 at 19:30 Acetaminophen/ Hydrocodone Bitart ([place] (5/325)) 1 tab Q6H PRN PO MODERATE PAIN LEVEL 4-6; Start 01/04/17 at 19:30 Morphine Sulfate (morphine) 2 mg Q4H PRN IV SEVERE PAIN LEVEL 7-10 Last administered on 01/12/17 11:19; Admin Dose 2 MG; Start 01/04/17 at 19:30 Docusate Sodium (Colace) 100 mg Q12H PRN PO CONSTIPATION; Start 01/04/17 at 19: 30 Magnesium Hydroxide (Milk Of Mag) 30 ml DAILY PRN PO CONSTIPATION; Start at 19:30 Sodium Biphosphate/ Sodium Phosphate (Fleet Enema) 133 ml DAILY PRN [place] CONSTIPATION; Start 01/04/17 at 19:30 Heparin Sodium (Porcine) (Heparin (5000 Units/0.5 ml)) 5,000 unit Q12 SC Last administered on 01/15/17 22:11; Admin Dose 5,000 UNIT; Start 01/04/17 at 21:00; Status Future hold Lorazepam (Ativan) 0.5 mg Q6H PRN IV ANXIETY Last administered on 01/08/17 05: 58; Admin Dose 0.5 MG; Start 01/04/17 at 19:30 Hydralazine HCl (Apresoline) 10 mg Q6H PRN IV ELEVATED BLOOD PRESSURE; Start at 19:30 Nitroglycerin (Nitroglycerin (Sl Tab) 0.4 Mg) 1 tab Q5M PRN SL ANGINA; Start at 19:30 Phenobarbital (Luminal) 64.8 mg BID PO Last administered on 01/04/17 23:45; Admin Dose 64.8 MG; Start 01/04/17 at 21:00; Status Future Hold Topiramate (Topamax) 200 mg BID PO ; Start 01/05/17 at 21:00; Status Future Hold Miscellaneous Information 1 ea NOTE XX ; Start 01/04/17 at 19:30 Glucose (Glutose) 15 gm Q15M PRN PO DECREASED GLUCOSE; Start 01/04/17 at 19:30 Glucose (Glutose) 22.5 gm Q15M PRN PO DECREASED GLUCOSE; Start 01/04/17 at 19:30 Dextrose (D50w Syringe) 25 ml Q15M PRN IV DECREASED GLUCOSE Last administered on 01/08/17 05:36; Admin Dose 25 ML; Start 01/04/17 at 19:30 Dextrose (D50w Syringe) 50 ml Q15M PRN IV DECREASED GLUCOSE; Start 01/04/17 at 19:30 Glucagon (Glucagen) 1 mg Q15M PRN IM DECREASED GLUCOSE; Start 01/04/17 at 19:30 Glucose (Glutose) 15 gm Q15M PRN BUCCAL DECREASED GLUCOSE; Start 01/04/17 at 19: 30 Phenytoin (Dilantin Susp Cup) 100 mg TID PO Last administered on 01/04/17 23:44 ; Admin Dose 100 MG; Start 01/04/17 at 21:50; Status Future Hold Clonazepam 0.5 mg 0.5 mg Q8H PO Last administered on 01/04/17 23:45; Admin Dose 0.5 MG; Start 01/04/17 at 23:00; Status Future Hold Norepinephrine 16 mg/Dextrose 500 ml @ 1.87 mls/hr TITRATE IV Last administered on 01/07/17 00:23; Admin Dose 15 MLS/HR; Start 01/05/17 at 00:30 Fentanyl 100 ml @ 2.5 mls/hr TITRATE IV Last administered on 01/16/17 11:35; Admin Dose 5 MLS/HR; Start 01/05/17 at 08:39 Midazolam HCl 50 ml @ 1 mls/hr TITRATE IV Last administered on 01/16/17 07:06 ; Admin Dose 5 MLS/HR; Start 01/05/17 at 08:41 Levetiracetam 100 ml @ 400 mls/hr Q12 IVPB Last administered on 01/15/17 21: 15; Admin Dose 400 MLS/HR; Start 01/05/17 at 11:30 Vasopressin 60 unit/Dextrose 60 ml @ 1.2 mls/hr Q12H IV Last administered on 22:32; Admin Dose 2.4 MLS/HR; Start 01/05/17 at 17:30 Epinephrine 4 mg/ Sodium Chloride 250 ml @ 0 mls/hr TITRATE IV ; Start 01/05/17 at 18:30 Phenylephrine HCl/ Dextrose (Robert-Syneph/D5W) 500 ml @ 18.75 mls/ hr TITRATE IV Last administered on 01/07/17 23:21; Admin Dose 26.25 MLS/HR; Start 01/05/17 at 20:30 Acetaminophen (Tylenol Liquid) 650 mg Q4H PRN NGT PAIN AND OR ELEVATED TEMP Last administered on 01/06/17 04:29; Admin Dose 650 MG; Start 01/06/17 at 04:30 Insulin Glargine 10 unit 10 unit DAILY SC Last administered on 01/07/17 08:19; Admin Dose 10 UNIT; Start 01/06/17 at 14:00; Status Future Hold Acetaminophen (Ofirmev 1000mg/ 100ml Iv) 100 ml @ 400 mls/hr Q6H PRN IVPB FEVER Last administered on 01/16/17 11:35; Admin Dose 400 MLS/HR; Start at 06:30 IV Flush (NS 10 ml) 10 ml PRN PRN IV IV PROTOCOL; Start 01/10/17 at 11:30 Amiodarone HCl (Cordarone) 200 mg BID GTB Last administered on 01/15/17 22:03 ; Admin Dose 200 MG; Start 01/11/17 at 12:00 Diagnostic Test (Pha) (Accu-Chek) 1 ea Q4H XX Last administered on 01/15/17 17 :57; Admin Dose 1 EA; Start 01/11/17 at 17:00 Epoetin Mina (Epogen (Esrd)) 10,000 units MoWeFr@17 SC Last administered on 18:30; Admin Dose 10,000 UNITS; Start 01/13/17 at 17:00 Insulin Aspart (Adult SC Insulin - Moder... Q4 SC Last administered on 18:10; Admin Dose 2 UNIT; Start 01/13/17 at 09:00 Meropenem/Sodium Chloride 50 ml @ 200 mls/hr Q12H IVPB Last administered on 22:08; Admin Dose 200 MLS/HR; Start 01/13/17 at 10:00 Total Parenteral Nutrition 1,000 ml @ 50 mls/hr Q20H IV Last administered on 02:27; Admin Dose 50 MLS/HR; Start 01/13/17 at 14:00 Pantoprazole 80 mg/Sodium Chloride 100 ml @ 10 mls/hr Q10H IV Last administered on 01/15/17 22:05; Admin Dose 10 MLS/HR; Start 01/14/17 at 06:00 Octreotide Acetate 500 mcg/ Sodium Chloride 50 ml @ 2.5 mls/hr Q20H IV Last administered on 01/16/17 02:29; Admin Dose 2.5 MLS/HR; Start 01/14/17 at 06:30 Vancomycin HCl (Vancocin) 250 ml @ 125 mls/hr Q72H IVPB Last administered on 05:58; Admin Dose 125 MLS/HR; Start 01/16/17 at 06:00 Metoprolol Tartrate (Lopressor) 25 mg BID PO Last administered on 01/15/17 23: 12; Admin Dose 25 MG; Start 01/15/17 at 15:00 Al Hydrox/Mg Hydrox/ Simethicone 30 ml 30 ml Q4 GTB Last administered on 09:58; Admin Dose 30 ML; Start 01/15/17 at 17:00 Caspofungin 50 mg/ Sodium Chloride 250 ml @ 250 mls/hr Q24H IVPB ; Start at 12:30; Status UNV Caspofungin/ Sodium Chloride (Cancidas/NS) 250 ml @ 250 mls/hr ONCE ONCE IVPB ; Start 01/16/17 at 12:30; Stop 01/16/17 at 13:29; Status UNV Assessment/Plan Chief Complaint/Hosp Course IMP: 1. Severe gallstone pancreatitis with septic shock, now slowly improving. Severe pancreatitis present on CT abdomen. Drop in hemoglobin. Questionable GI bleed. 2. Metabolic acidosis secondary to above and ARF 3. Renal failure likely ATN now requiring hemodialysis 4. 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 5. History of seizure disorder RECS: 1. Hemodialysis today per nephrology 2. Continue mechanical ventilation, CPAP weaning trial this morning with family at bedside 3. Broad-spectrum antibiotic coverage 4. Nasogastric tube to suction 5. GI recommendations. Consider surgery consult given CT findings of abdomen 6. Continue DVT and GI prophylaxis 7. Repeat endoscopy today for low hemoglobin. 35 min cc time Problems: AMPARO VALERIO MD, [facility] Jan 16, 2017 12:30
[2017-01-16 13:29] LABS: AMYLASE 174 U/L (11-123)
[2017-01-16] MEDS ORDERED: CASPOFUNGIN 70 MG in SOD CHLORIDE 0.9% 250 ML IVPB ONE (14:30)
[2017-01-16] MEDS: LEVETIRACETAM 1000 MG (PMX) 100 ML IVPB SCH ×2 (15:01→22:49)
[2017-01-16] MEDS: AMIODARONE 200 MG TAB GTB SCH ×2 (15:02→21:00)
[2017-01-16] MEDS: MEROPENEM 500MG/50 ML (PMX) 50 ML IVPB SCH ×2 (15:03→23:49)
[2017-01-16] MEDS: SOD FERRIC GLUC COMPLX 125 MG in SOD CHLORIDE 0.9% 100 ML IVPB SCH (15:04)
[2017-01-16] MEDS: PANTOPRAZOLE IV 80 MG in SOD CHLORIDE 0.9% 100 ML IV SCH ×2 (15:04→18:00)
[2017-01-16] MEDS ORDERED: LIDOCAINE 2% (SDV) 5 ML INJ ONE (16:54)
[2017-01-16] MEDS ORDERED: PROPOFOL 40 ML ONE (16:54)
[2017-01-16] MEDS ORDERED: ETOMIDATE 20 MG INJ ONE (16:54)
[2017-01-16] MEDS ORDERED: EPHEDrine SULFATE 50 MG/5 ML SYG ONE (16:54)
[2017-01-16] MEDS ORDERED: PHENYLephrine (100 MCG/ML) 5ML SYG ONE (16:54)
[2017-01-16] MEDS ORDERED: FENTAnyl 50 MCG/ML VIAL ONE (16:54)
[2017-01-16] MEDS ORDERED: PHYTONADIONE 10 MG/ML INJ ONE (17:41)
[2017-01-16] MEDS ORDERED: PHYTONADIONE 10 MG/ML INJ IM ONE (18:00)
[2017-01-16] MEDS: LORAZEPAM 2 MG INJ IV PRN (18:28)
--- NOTE | 2017-01-16 18:53 | CONS ---
Date/Time of Note Date/Time of Note DATE: 01/16/17 TIME: 18:52 Assessment/Plan Assessment/Plan Additional Assessment/Plan Paroxysmal atrial fibrillation Severe sepsis Acute pancreatitis status post ERCP Preserved ejection fraction Respiratory failure, vent dependent Acute kidney injury now on hemodialysis Seizure disorder Psychiatric disorder Acute blood loss anemia GI bleed -Patient currently with sinus tachycardia, this is likely secondary to overall medical state including GI bleeding. Would continue amiodarone to help maintain in sinus rhythm. No anticoagulation for atrial fibrillation given severe anemia and GI bleed. Fluid management as per our nephrology colleagues. Consultation Date/Type/Reason Admit Date/Time Jan 04, 2017 at 19:10 Initial Consult Date 01/05/17 Type of Consultation: cv Referring Provider: YING CASTAÑEDA 24 HR Interval Summary Free Text/Dictation Patient status post EGD with multiple clippings, remains off IV pressor Exam/Review of Systems Vital Signs Vitals Vital Signs Date Time Temp Pulse Resp B/P Pulse Ox O2 Delivery O2 Flow Rate FiO2 01/16/17 17:54 98 129/71 96 Mechanical Ventilator 01/16/17 17:05 26 30 01/16/17 04:00 99.8 Intake and Output 01/15/17 01/15/17 01/16/17 15:00 23:00 07:00 Intake Total 922.0 ml 593.5 ml 588.0 ml Output Total 570 ml 595 ml 540 ml Balance 352.0 ml -1.5 ml 48.0 ml Exam Sedated and intubated, no apparent distress, nursing at bedside Head: normocephalic ENMT: intubated Respiratory: other (Coarse breath sounds bilaterally, no wheezing) Cardiovascular: other (S1-S2 heard), regular rate and rhythm Gastrointestinal: bowel sounds, non-tender, soft Extremities: edema Results Result Diagram: 01/16/17 0540 01/16/17 0540 Results 24 hrs Laboratory Tests Test 01/15/17 21:42 01/16/17 01:15 01/16/17 05:00 01/16/17 05:16 Bedside Glucose 119 136 134 White Blood Count 29.4 H Red Blood Count 2.64 L Hemoglobin 7.9 L Hematocrit 24.5 L Mean Corpuscular Volume 92.8 Mean Corpuscular Hemoglobin 29.9 Mean Corpuscular Hemoglobin Concent 32.2 Red Cell Distribution Width 15.7 H Platelet Count 277 Mean Platelet Volume 11.4 H Neutrophils % 86.0 H Band Neutrophils % 3.0 Lymphocytes % 7.0 L Monocytes % 1.0 Eosinophils % Metamyelocytes % 3.0 H Neutrophils # 25.3 H Lymphocytes # 2.1 Monocytes # 0.3 Eosinophils # Metamyelocytes # 0.9 Phosphorus Level 5.4 H Magnesium Level 1.7 Test 01/16/17 05:40 01/16/17 10:13 01/16/17 13:18 01/16/17 18:42 Platelet Count 280 Prothrombin Time 17.2 #H Prothrombin Time Ratio 1.3 INR International Normalized Ratio 1.40 Activated Partial Thromboplast Time 38.5 H Thrombin Time 15.7 Sodium Level 145 H Potassium Level 3.5 Chloride Level 104 Carbon Dioxide Level 25 Anion Gap 20 H Blood Urea Nitrogen 64 H Creatinine 3.29 H Glucose Level 112 Lactic Acid Level 2.0 Calcium Level 7.8 L Total Bilirubin 0.5 Direct Bilirubin 0.20 # Indirect Bilirubin 0.3 Aspartate Amino Transf (AST/SGOT) 49 H Alanine Aminotransferase (ALT/SGPT) 26 Alkaline Phosphatase 251 H Total Protein 6.6 Albumin 2.9 L Globulin 3.70 H Albumin/Globulin Ratio 0.78 Amylase Level 174 H Lipase 409 H Bedside Glucose 127 151 130 Medications Medications Current Medications Ondansetron HCl (Zofran Inj) 4 mg Q6H PRN IV NAUSEA AND/OR VOMITING; Start 01/04 at 19:30 Acetaminophen/ Hydrocodone Bitart ([place] (5/325)) 1 tab Q6H PRN PO MODERATE PAIN LEVEL 4-6; Start 01/04/17 at 19:30 Morphine Sulfate (morphine) 2 mg Q4H PRN IV SEVERE PAIN LEVEL 7-10 Last administered on 01/12/17t 11:19; Admin Dose 2 MG; Start 01/04/17 at 19:30 Docusate Sodium (Colace) 100 mg Q12H PRN PO CONSTIPATION; Start 01/04/17 at 19: 30 Magnesium Hydroxide (Milk Of Mag) 30 ml DAILY PRN PO CONSTIPATION; Start at 19:30 Sodium Biphosphate/ Sodium Phosphate (Fleet Enema) [address] CONSTIPATION; Start 01/04/17 at 19:30 Heparin Sodium (Porcine) (Heparin (5000 Units/0.5 ml)) 5,000 unit Q12 SC Last administered on 01/15/17 22:11; Admin Dose 5,000 UNIT; Start 01/04/17 at 21:00; Status Future hold Lorazepam (Ativan) 0.5 mg Q6H PRN IV ANXIETY Last administered on 01/16/17 18: 28; Admin Dose 0.5 MG; Start 01/04/17 at 19:30 Hydralazine HCl (Apresoline) 10 mg Q6H PRN IV ELEVATED BLOOD PRESSURE; Start at 19:30 Nitroglycerin (Nitroglycerin (Sl Tab) 0.4 Mg) 1 tab Q5M PRN SL ANGINA; Start at 19:30 Phenobarbital (Luminal) 64.8 mg BID PO Last administered on 01/04/17 23:45; Admin Dose 64.8 MG; Start 01/04/17 at 21:00; Status Future Hold Topiramate (Topamax) 200 mg BID PO ; Start 01/05/17 at 21:00; Status Future Hold Miscellaneous Information 1 ea NOTE XX ; Start 01/04/17 at 19:30 Glucose (Glutose) 15 gm Q15M PRN PO DECREASED GLUCOSE; Start 01/04/17 at 19:30 Glucose (Glutose) 22.5 gm Q15M PRN PO DECREASED GLUCOSE; Start 01/04/17 at 19:30 Dextrose (D50w Syringe) 25 ml Q15M PRN IV DECREASED GLUCOSE Last administered on 01/08/17 05:36; Admin Dose 25 ML; Start 01/04/17 at 19:30 Dextrose (D50w Syringe) 50 ml Q15M PRN IV DECREASED GLUCOSE; Start 01/04/17 at 19:30 Glucagon (Glucagen) 1 mg Q15M PRN IM DECREASED GLUCOSE; Start 01/04/17 at 19:30 Glucose (Glutose) 15 gm Q15M PRN BUCCAL DECREASED GLUCOSE; Start 01/04/17 at 19: 30 Phenytoin (Dilantin Susp Cup) 100 mg TID PO Last administered on 01/04/17 23:44 ; Admin Dose 100 MG; Start 01/04/17 at 21:50; Status Future Hold Clonazepam 0.5 mg 0.5 mg Q8H PO Last administered on 01/04/17 23:45; Admin Dose 0.5 MG; Start 01/04/17 at 23:00; Status Future Hold Norepinephrine 16 mg/Dextrose 500 ml @ 1.87 mls/hr TITRATE IV Last administered on 01/07/17 00:23; Admin Dose 15 MLS/HR; Start 01/05/17 at 00:30 Fentanyl 100 ml @ 2.5 mls/hr TITRATE IV Last administered on 01/16/17 11:35; Admin Dose 5 MLS/HR; Start 01/05/17 at 08:39 Midazolam HCl 50 ml @ 1 mls/hr TITRATE IV Last administered on 01/16/17 18:15 ; Admin Dose 5 MLS/HR; Start 01/05/17 at 08:41 Levetiracetam 100 ml @ 400 mls/hr Q12 IVPB Last administered on 01/16/17 15: 01; Admin Dose 400 MLS/HR; Start 01/05/17 at 11:30 Vasopressin 60 unit/Dextrose 60 ml @ 1.2 mls/hr Q12H IV Last administered on 22:32; Admin Dose 2.4 MLS/HR; Start 01/05/17 at 17:30 Epinephrine 4 mg/ Sodium Chloride 250 ml @ 0 mls/hr TITRATE IV ; Start 01/05/17 at 18:30 Phenylephrine HCl/ Dextrose (Robert-Syneph/D5W) 500 ml @ 18.75 mls/ hr TITRATE IV Last administered on 01/07/17 23:21; Admin Dose 26.25 MLS/HR; Start 01/05/17 at 20:30 Acetaminophen (Tylenol Liquid) 650 mg Q4H PRN NGT PAIN AND OR ELEVATED TEMP Last administered on 01/06/17 04:29; Admin Dose 650 MG; Start 01/06/17 at 04:30 Insulin Glargine 10 unit 10 unit DAILY SC Last administered on 01/07/17 08:19; Admin Dose 10 UNIT; Start 01/06/17 at 14:00; Status Future Hold Acetaminophen (Ofirmev 1000mg/ 100ml Iv) 100 ml @ 400 mls/hr Q6H PRN IVPB FEVER Last administered on 01/16/17 11:35; Admin Dose 400 MLS/HR; Start at 06:30 IV Flush (NS 10 ml) 10 ml PRN PRN IV IV PROTOCOL; Start 01/10/17 at 11:30 Amiodarone HCl (Cordarone) 200 mg BID GTB Last administered on 01/16/17 15:02 ; Admin Dose 200 MG; Start 01/11/17 at 12:00 Diagnostic Test (Pha) (Accu-Chek) 1 ea Q4H XX Last administered on 01/15/17 17 :57; Admin Dose 1 EA; Start 01/11/17 at 17:00 Epoetin Mina (Epogen (Esrd)) 10,000 units MoWeFr@17 SC Last administered on 18:30; Admin Dose 10,000 UNITS; Start 01/13/17 at 17:00 Insulin Aspart (Adult SC Insulin - Moder... Q4 SC Last administered on 13:40; Admin Dose 2 UNIT; Start 01/13/17 at 09:00 Meropenem/Sodium Chloride 50 ml @ 200 mls/hr Q12H IVPB Last administered on 15:03; Admin Dose 200 MLS/HR; Start 01/13/17 at 10:00 Total Parenteral Nutrition 1,000 ml @ 50 mls/hr Q20H IV Last administered on 02:27; Admin Dose 50 MLS/HR; Start 01/13/17 at 14:00 Pantoprazole 80 mg/Sodium Chloride 100 ml @ 10 mls/hr Q10H IV Last administered on 01/16/17 15:04; Admin Dose 10 MLS/HR; Start 01/14/17 at 06:00 Octreotide Acetate 500 mcg/ Sodium Chloride 50 ml @ 2.5 mls/hr Q20H IV Last administered on 01/16/17 02:29; Admin Dose 2.5 MLS/HR; Start 01/14/17 at 06:30 Vancomycin HCl (Vancocin) 250 ml @ 125 mls/hr Q72H IVPB Last administered on 05:58; Admin Dose 125 MLS/HR; Start 01/16/17 at 06:00 Metoprolol Tartrate (Lopressor) 25 mg BID PO Last administered on 01/15/17 23: 12; Admin Dose 25 MG; Start 01/15/17 at 15:00 Al Hydrox/Mg Hydrox/ Simethicone 30 ml 30 ml Q4 GTB Last administered on t 13:40; Admin Dose 30 ML; Start 01/15/17 at 17:00 Caspofungin/ Sodium Chloride (Cancidas/NS) 250 ml @ 250 mls/hr Q24H IVPB ; Start 01/17/17 at 14:30 Vlad Leyva DO Jan 16, 2017 18:53
[2017-01-16] MEDS: EPOETIN 10000 UNITS/1 ML INJ (ESRD) SC SCH (22:44)
[2017-01-17] VITALS (70 sets, daily range): BP systolic 93–148; BP diastolic 60–88; PULSE 90–121; RESP 23–27
[2017-01-17] MEDS: Insulin NOVOLOG SS MODERATE Algorithm(NPO/TPN/ENTERAL FEEDS) SC SCH ×6 (01:00→21:08)
[2017-01-17] MEDS: AL HYDROX/MG HYDROX/SIMETH 30 ML CUP GTB SCH ×6 (01:42→21:03)
[2017-01-17] MEDS: ACCU-CHEK XX SCH ×6 (01:42→21:04)
[2017-01-17] MEDS: PANTOPRAZOLE IV 80 MG in SOD CHLORIDE 0.9% 100 ML IV SCH ×2 (05:02→14:43)
[2017-01-17] MEDS: VASOPRESSIN 60 UNIT in DEXTROSE 5% 57 ML IV SCH ×2 (05:03→17:30)
[2017-01-17] MEDS: MIDAZOLAM (DRIP) 50 mg/50 mL 50 ML IV SCH ×2 (05:19→20:48)
[2017-01-17 06:23] LABS: ADD SCAN DIFF NO
[2017-01-17 06:26] LABS: ABNORMAL IP MESSAGE 1; BASOPHIL # 0.1 10^3/ul (0.0-0.1); BASOPHILS % 0.5 % (0.0-2.0); EOSINOPHILS # 0.1 10^3/ul (0.0-0.5); EOSINOPHILS % 0.3 % (0.0-7.0); HEMATOCRIT 28.1 % (37.0-47.0); HEMOGLOBIN 9.5 g/dl (12.0-16.0); LYMPHOCYTES # 1.3 10^3/ul (0.8-2.9); LYMPHOCYTES % 5.6 % (15.0-51.0); MEAN CORPUSCULAR HEMOGLOBIN 30.7 pg (29.0-33.0); MEAN CORPUSCULAR HGB CONC 33.8 g/dl (32.0-37.0); MEAN CORPUSCULAR VOLUME 90.9 fl (82.0-101.0); MEAN PLATELET VOLUME 11.2 fl (7.4-10.4); MONOCYTE # 1.1 10^3/ul (0.3-0.9); MONOCYTES % 4.6 % (0.0-11.0); NEUTROPHIL # 18.5 10^3/ul (1.6-7.5); NEUTROPHILS % 78.3 % (39.0-77.0); PLATELET COUNT 317 10^3/UL (140-415); RED BLOOD COUNT 3.09 10^6/ul (4.20-5.40); RED CELL DISTRIBUTION WIDTH 16.2 % (11.5-14.5); WHITE BLOOD COUNT 23.7 10^3/ul (4.8-10.8)
[2017-01-17 06:50] LABS: CREATININE 2.56 mg/dl (0.44-1.00); PHOSPHORUS 3.7 mg/dl (2.5-4.9)
[2017-01-17 06:53] LABS: POTASSIUM 2.9 mmol/L (3.5-5.1)
[2017-01-17 06:53] LABS: INR 1.19; PROTIME 15.2 Sec (12.2-14.2); PT RATIO 1.2
[2017-01-17 06:54] LABS: PARTIAL THROMBOPLASTIN TIME 38.5 Sec (25.0-35.0)
--- NOTE | 2017-01-17 08:23 | CONS ---
Date/Time of Note Date/Time of Note DATE: 01/17/17 TIME: 08:18 Assessment/Plan Assessment/Plan Chief Complaint/Hosp Course Admitted with abdominal pain and evidence of severe pancreatitis in otherwise good health. Problems: Additional Assessment/Plan 1. ARF, vol expanded, will HD for the same and will correct hypernatremia and Low K. 2. TPN rate inc, not using lipids because relative contraindication of pancreatitis. 3. Rev with GI yesterday, ? dc octrotide 4. Upper GI bleeding addressed with endo yesterday, clips placed at bleeding site tasha ampulla. 5. Despite UF on HD CXR is worsening, abx regimen was expanded yeast. Consultation Date/Type/Reason Admit Date/Time Jan 04, 2017 at 19:10 Initial Consult Date 01/05/17 Type of Consultation: cv Referring Provider: YING CASTAÑEDA 24 HR Interval Summary Subjective hx not possible: other (alert, intubated) Exam/Review of Systems Vital Signs Vitals Vital Signs Date Time Temp Pulse Resp B/P Pulse Ox O2 Delivery O2 Flow Rate FiO2 01/17/17 07:00 107 26 141/82 96 Mechanical Ventilator 01/17/17 05:31 30 01/17/17 04:00 98.8 Intake and Output 01/16/17 01/16/17 01/17/17 15:00 23:00 07:00 Intake Total 1223 ml 888.0 ml 722 ml Output Total 4600 ml 275 ml 1030 ml Balance -3377 ml 613.0 ml -308 ml Exam Neck: No jvd Respiratory: diminished breath sounds, No crackles/rales Cardiovascular: regular rate and rhythm Gastrointestinal: soft Extremities: No edema (less sacral edema and no leg edema) Results Result Diagram: 01/17/17 0600 01/17/17 0600 Results 24 hrs Laboratory Tests Test 01/16/17 10:13 01/16/17 13:18 01/16/17 18:42 01/16/17 22:41 Bedside Glucose 127 151 130 119 Test 01/17/17 01:42 01/17/17 05:00 01/17/17 05:03 01/17/17 06:00 Bedside Glucose 125 124 Prothrombin Time 15.2 H Prothrombin Time Ratio 1.2 INR International Normalized Ratio 1.19 Activated Partial Thromboplast Time 38.5 H White Blood Count 23.7 H Red Blood Count 3.09 L Hemoglobin 9.5 #L Hematocrit 28.1 L Mean Corpuscular Volume 90.9 Mean Corpuscular Hemoglobin 30.7 Mean Corpuscular Hemoglobin Concent 33.8 Red Cell Distribution Width 16.2 H Platelet Count 317 Mean Platelet Volume 11.2 H Neutrophils % 78.3 H Lymphocytes % 5.6 L Monocytes % 4.6 Eosinophils % 0.3 Basophils % 0.5 Nucleated Red Blood Cells % 0.0 Neutrophils # 18.5 H Lymphocytes # 1.3 Monocytes # 1.1 H Eosinophils # 0.1 Basophils # 0.1 Nucleated Red Blood Cells # 0.0 Sodium Level 150 H Potassium Level 2.9 *L Chloride Level 108 Carbon Dioxide Level 25 Anion Gap 20 H Blood Urea Nitrogen 57 H Creatinine 2.56 H Glucose Level 119 Calcium Level 8.0 L Phosphorus Level 3.7 Magnesium Level 2.1 Test 01/17/17 06:01 Lab Scanned Report BLOOD TRANSFUSION Medications Medications Current Medications Ondansetron HCl (Zofran Inj) 4 mg Q6H PRN IV NAUSEA AND/OR VOMITING; Start 01/04 at 19:30 Acetaminophen/ Hydrocodone Bitart ([place] (5/325)) 1 tab Q6H PRN PO MODERATE PAIN LEVEL 4-6; Start 01/04/17 at 19:30 Morphine Sulfate (morphine) 2 mg Q4H PRN IV SEVERE PAIN LEVEL 7-10 Last administered on 01/12/17 11:19; Admin Dose 2 MG; Start 01/04/17 at 19:30 Docusate Sodium (Colace) 100 mg Q12H PRN PO CONSTIPATION; Start 01/04/17 at 19: 30 Magnesium Hydroxide (Milk Of Mag) 30 ml DAILY PRN PO CONSTIPATION; Start at 19:30 Sodium Biphosphate/ Sodium Phosphate (Fleet Enema) 133 ml DAILY PRN [place] CONSTIPATION; Start 01/04/17 at 19:30 Heparin Sodium (Porcine) (Heparin (5000 Units/0.5 ml)) 5,000 unit Q12 SC Last administered on 01/16/17 23:11; Admin Dose 5,000 UNIT; Start 01/04/17 at 21:00; Status Future hold Lorazepam (Ativan) 0.5 mg Q6H PRN IV ANXIETY Last administered on 01/16/17 18: 28; Admin Dose 0.5 MG; Start 01/04/17 at 19:30 Hydralazine HCl (Apresoline) 10 mg Q6H PRN IV ELEVATED BLOOD PRESSURE; Start at 19:30 Nitroglycerin (Nitroglycerin (Sl Tab) 0.4 Mg) 1 tab Q5M PRN SL ANGINA; Start at 19:30 Phenobarbital (Luminal) 64.8 mg BID PO Last administered on 01/04/17 23:45; Admin Dose 64.8 MG; Start 01/04/17 at 21:00; Status Future Hold Topiramate (Topamax) 200 mg BID PO ; Start 01/05/17 at 21:00; Status Future Hold Miscellaneous Information 1 ea NOTE XX ; Start 01/04/17 at 19:30 Glucose (Glutose) 15 gm Q15M PRN PO DECREASED GLUCOSE; Start 01/04/17 at 19:30 Glucose (Glutose) 22.5 gm Q15M PRN PO DECREASED GLUCOSE; Start 01/04/17 at 19:30 Dextrose (D50w Syringe) 25 ml Q15M PRN IV DECREASED GLUCOSE Last administered on 01/08/17 05:36; Admin Dose 25 ML; Start 01/04/17 at 19:30 Dextrose (D50w Syringe) 50 ml Q15M PRN IV DECREASED GLUCOSE; Start 01/04/17 at 19:30 Glucagon (Glucagen) 1 mg Q15M PRN IM DECREASED GLUCOSE; Start 01/04/17 at 19:30 Glucose (Glutose) 15 gm Q15M PRN BUCCAL DECREASED GLUCOSE; Start 01/04/17 at 19: 30 Phenytoin (Dilantin Susp Cup) 100 mg TID PO Last administered on 01/04/17 23:44 ; Admin Dose 100 MG; Start 01/04/17 at 21:50; Status Future Hold Clonazepam 0.5 mg 0.5 mg Q8H PO Last administered on 01/04/17 23:45; Admin Dose 0.5 MG; Start 01/04/17 at 23:00; Status Future Hold Norepinephrine 16 mg/Dextrose 500 ml @ 1.87 mls/hr TITRATE IV Last administered on 01/07/17 00:23; Admin Dose 15 MLS/HR; Start 01/05/17 at 00:30 Fentanyl 100 ml @ 2.5 mls/hr TITRATE IV Last administered on 01/16/17 23:46; Admin Dose 6 MLS/HR; Start 01/05/17 at 08:39 Midazolam HCl 50 ml @ 1 mls/hr TITRATE IV Last administered on 01/17/17 05:19 ; Admin Dose 5 MLS/HR; Start 01/05/17 at 08:41 Levetiracetam 100 ml @ 400 mls/hr Q12 IVPB Last administered on 01/16/17 22: 49; Admin Dose 400 MLS/HR; Start 01/05/17 at 11:30 Vasopressin 60 unit/Dextrose 60 ml @ 1.2 mls/hr Q12H IV Last administered on 22:32; Admin Dose 2.4 MLS/HR; Start 01/05/17 at 17:30 Epinephrine 4 mg/ Sodium Chloride 250 ml @ 0 mls/hr TITRATE IV ; Start 01/05/17 at 18:30 Phenylephrine HCl/ Dextrose (Robert-Syneph/D5W) 500 ml @ 18.75 mls/ hr TITRATE IV Last administered on 01/07/17 23:21; Admin Dose 26.25 MLS/HR; Start 01/05/17 at 20:30 Acetaminophen (Tylenol Liquid) 650 mg Q4H PRN NGT PAIN AND OR ELEVATED TEMP Last administered on 01/06/17 04:29; Admin Dose 650 MG; Start 01/06/17 at 04:30 Insulin Glargine 10 unit 10 unit DAILY SC Last administered on 01/07/17 08:19; Admin Dose 10 UNIT; Start 01/06/17 at 14:00; Status Future Hold Acetaminophen (Ofirmev 1000mg/ 100ml Iv) 100 ml @ 400 mls/hr Q6H PRN IVPB FEVER Last administered on 01/16/17 11:35; Admin Dose 400 MLS/HR; Start at 06:30 IV Flush (NS 10 ml) 10 ml PRN PRN IV IV PROTOCOL; Start 01/10/17 at 11:30 Amiodarone HCl (Cordarone) 200 mg BID GTB Last administered on 01/16/17 21:00 ; Admin Dose 200 MG; Start 01/11/17 at 12:00 Diagnostic Test (Pha) (Accu-Chek) 1 ea Q4H XX Last administered on 01/17/17 05 :03; Admin Dose 1 EA; Start 01/11/17 at 17:00 Epoetin Mina (Epogen (Esrd)) 10,000 units MoWeFr@17 SC Last administered on 22:44; Admin Dose 10,000 UNITS; Start 01/13/17 at 17:00 Insulin Aspart (Adult SC Insulin - Moder... Q4 SC Last administered on 13:40; Admin Dose 2 UNIT; Start 01/13/17 at 09:00 Meropenem/Sodium Chloride 50 ml @ 200 mls/hr Q12H IVPB Last administered on 23:49; Admin Dose 200 MLS/HR; Start 01/13/17 at 10:00 Total Parenteral Nutrition 1,000 ml @ 50 mls/hr Q20H IV Last administered on 23:49; Admin Dose 50 MLS/HR; Start 01/13/17 at 14:00 Pantoprazole 80 mg/Sodium Chloride 100 ml @ 10 mls/hr Q10H IV Last administered on 01/17/17 05:02; Admin Dose 10 MLS/HR; Start 01/14/17 at 06:00 Octreotide Acetate 500 mcg/ Sodium Chloride 50 ml @ 2.5 mls/hr Q20H IV Last administered on 01/16/17 22:49; Admin Dose 2.5 MLS/HR; Start 01/14/17 at 06:30 Vancomycin HCl (Vancocin) 250 ml @ 125 mls/hr Q72H IVPB Last administered on 05:58; Admin Dose 125 MLS/HR; Start 01/16/17 at 06:00 Metoprolol Tartrate (Lopressor) 25 mg BID PO Last administered on 01/16/17 23: 09; Admin Dose 25 MG; Start 01/15/17 at 15:00 Al Hydrox/Mg Hydrox/ Simethicone 30 ml 30 ml Q4 GTB Last administered on 05:02; Admin Dose 30 ML; Start 01/15/17 at 17:00 Caspofungin/ Sodium Chloride (Cancidas/NS) 250 ml @ 250 mls/hr Q24H IVPB ; Start 01/17/17 at 14:30 FRANCIS JULES MD Jan 17, 2017 08:22
[2017-01-17] MEDS: MEROPENEM 500MG/50 ML (PMX) 50 ML IVPB SCH ×2 (09:28→22:20)
[2017-01-17] MEDS: LEVETIRACETAM 1000 MG (PMX) 100 ML IVPB SCH ×2 (09:29→21:03)
[2017-01-17] MEDS: BALSAM PERU/CASTOR OIL 60 GM TUBE TOP SCH (09:29)
[2017-01-17] MEDS: METOPROLOL 25 MG TAB PO SCH ×2 (09:30→21:00)
[2017-01-17] MEDS: POTASSIUM CHLORIDE 50 ML IVPB SCH ×3 (09:34→12:39)
[2017-01-17] MEDS: AMIODARONE 200 MG TAB GTB SCH ×2 (09:34→21:03)
[2017-01-17] MEDS: HEPARIN 5,000 UNIT/0.5 ML VIAL SC SCH (09:36)
[2017-01-17] MEDS: DEXTROSE 5% 1,000 ML IV SCH ×2 (09:46→16:30)
--- NOTE | 2017-01-17 10:46 | CONS ---
Date/Time of Note Date/Time of Note DATE: 01/17/17 TIME: 10:44 Consult Date/Type/Reason Admit Date/Time Jan 04, 2017 at 19:10 Initial Consult Date 01/05/17 Type of Consultation: Pulmonary ICU Ordering Provider: YING CASTAÑEDA Subjective Patient comfortable this morning eyes open for simple commands still has significant neuromuscular weakness. Objective Vital Signs Date Time Temp Pulse Resp B/P Pulse Ox O2 Delivery O2 Flow Rate FiO2 01/17/17 10:15 112 01/17/17 09:30 26 96 30 01/17/17 07:00 141/82 Mechanical Ventilator 01/17/17 04:00 98.8 Intake and Output 01/16/17 01/16/17 01/17/17 14:59 22:59 06:59 Intake Total 1296.5 ml 587.0 ml 953 ml Output Total 4650 ml 340 ml 840 ml Balance -3353.5 ml 247.0 ml 113 ml Exam PHYSICAL EXAMINATION GENERAL: Elderly Pashto lady orally intubated appears comfortable at rest VITAL SIGNS: see below. HEENT: Pupils equal, round, and reactive to light. CARDIAC: S1, S2, 1/6 systolic ejection murmur CHEST: Diminished air entry bilaterally. Rales both lung bases ABDOMEN: Mildly distended. Bowel sounds present no guarding or rebound EXTREMITIES: No cyanosis, clubbing edema +1 NEUROLOGIC: Generalized weakness Results/Medications Result Diagram: 01/17/17 0600 01/17/17 0600 Results 24 hrs Laboratory Tests Test 01/16/17 13:18 01/16/17 18:42 01/16/17 22:41 01/17/17 01:42 Bedside Glucose 151 130 119 125 Test 01/17/17 05:00 01/17/17 05:03 01/17/17 06:00 01/17/17 06:01 Prothrombin Time 15.2 H Prothrombin Time Ratio 1.2 INR International Normalized Ratio 1.19 Activated Partial Thromboplast Time 38.5 H Bedside Glucose 124 White Blood Count 23.7 H Red Blood Count 3.09 L Hemoglobin 9.5 #L Hematocrit 28.1 L Mean Corpuscular Volume 90.9 Mean Corpuscular Hemoglobin 30.7 Mean Corpuscular Hemoglobin Concent 33.8 Red Cell Distribution Width 16.2 H Platelet Count 317 Mean Platelet Volume 11.2 H Neutrophils % 78.3 H Lymphocytes % 5.6 L Monocytes % 4.6 Eosinophils % 0.3 Basophils % 0.5 Nucleated Red Blood Cells % 0.0 Neutrophils # 18.5 H Lymphocytes # 1.3 Monocytes # 1.1 H Eosinophils # 0.1 Basophils # 0.1 Nucleated Red Blood Cells # 0.0 Sodium Level 150 H Potassium Level 2.9 *L Chloride Level 108 Carbon Dioxide Level 25 Anion Gap 20 H Blood Urea Nitrogen 57 H Creatinine 2.56 H Glucose Level 119 Calcium Level 8.0 L Phosphorus Level 3.7 Magnesium Level 2.1 Lab Scanned Report BLOOD TRANSFUSION Test 01/17/17 10:24 Bedside Glucose 153 Medications Current Medications Ondansetron HCl (Zofran Inj) 4 mg Q6H PRN IV NAUSEA AND/OR VOMITING; Start 01/04 at 19:30 Acetaminophen/ Hydrocodone Bitart ([place] (5/325)) 1 tab Q6H PRN PO MODERATE PAIN LEVEL 4-6; Start 01/04/17 at 19:30 Morphine Sulfate (morphine) 2 mg Q4H PRN IV SEVERE PAIN LEVEL 7-10 Last administered on 01/12/17 11:19; Admin Dose 2 MG; Start 01/04/17 at 19:30 Docusate Sodium (Colace) 100 mg Q12H PRN PO CONSTIPATION; Start 01/04/17 at 19: 30 Magnesium Hydroxide (Milk Of Mag) 30 ml DAILY PRN PO CONSTIPATION; Start at 19:30 Sodium Biphosphate/ Sodium Phosphate (Fleet Enema) 133 ml DAILY PRN [place] CONSTIPATION; Start 01/04/17 at 19:30 Heparin Sodium (Porcine) (Heparin (5000 Units/0.5 ml)) 5,000 unit Q12 SC Last administered on 01/17/17 09:36; Admin Dose 5,000 UNIT; Start 01/04/17 at 21:00; Status Future hold Lorazepam (Ativan) 0.5 mg Q6H PRN IV ANXIETY Last administered on 01/16/17 18: 28; Admin Dose 0.5 MG; Start 01/04/17 at 19:30 Hydralazine HCl (Apresoline) 10 mg Q6H PRN IV ELEVATED BLOOD PRESSURE; Start at 19:30 Nitroglycerin (Nitroglycerin (Sl Tab) 0.4 Mg) 1 tab Q5M PRN SL ANGINA; Start at 19:30 Phenobarbital (Luminal) 64.8 mg BID PO Last administered on 01/04/17 23:45; Admin Dose 64.8 MG; Start 01/04/17 at 21:00; Status Future Hold Topiramate (Topamax) 200 mg BID PO ; Start 01/05/17 at 21:00; Status Future Hold Miscellaneous Information 1 ea NOTE XX ; Start 01/04/17 at 19:30 Glucose (Glutose) 15 gm Q15M PRN PO DECREASED GLUCOSE; Start 01/04/17 at 19:30 Glucose (Glutose) 22.5 gm Q15M PRN PO DECREASED GLUCOSE; Start 01/04/17 at 19:30 Dextrose (D50w Syringe) 25 ml Q15M PRN IV DECREASED GLUCOSE Last administered on 01/08/17 05:36; Admin Dose 25 ML; Start 01/04/17 at 19:30 Dextrose (D50w Syringe) 50 ml Q15M PRN IV DECREASED GLUCOSE; Start 01/04/17 at 19:30 Glucagon (Glucagen) 1 mg Q15M PRN IM DECREASED GLUCOSE; Start 01/04/17 at 19:30 Glucose (Glutose) 15 gm Q15M PRN BUCCAL DECREASED GLUCOSE; Start 01/04/17 at 19: 30 Phenytoin (Dilantin Susp Cup) 100 mg TID PO Last administered on 01/04/17 23:44 ; Admin Dose 100 MG; Start 01/04/17 at 21:50; Status Future Hold Clonazepam 0.5 mg 0.5 mg Q8H PO Last administered on 01/04/17 23:45; Admin Dose 0.5 MG; Start 01/04/17 at 23:00; Status Future Hold Norepinephrine 16 mg/Dextrose 500 ml @ 1.87 mls/hr TITRATE IV Last administered on 01/07/17 00:23; Admin Dose 15 MLS/HR; Start 01/05/17 at 00:30 Fentanyl 100 ml @ 2.5 mls/hr TITRATE IV Last administered on 01/16/17 23:46; Admin Dose 6 MLS/HR; Start 01/05/17 at 08:39 Midazolam HCl 50 ml @ 1 mls/hr TITRATE IV Last administered on 01/17/17 05:19 ; Admin Dose 5 MLS/HR; Start 01/05/17 at 08:41 Levetiracetam 100 ml @ 400 mls/hr Q12 IVPB Last administered on 01/17/17 09: 29; Admin Dose 400 MLS/HR; Start 01/05/17 at 11:30 Vasopressin 60 unit/Dextrose 60 ml @ 1.2 mls/hr Q12H IV Last administered on 22:32; Admin Dose 2.4 MLS/HR; Start 01/05/17 at 17:30 Epinephrine 4 mg/ Sodium Chloride 250 ml @ 0 mls/hr TITRATE IV ; Start 01/05/17 at 18:30 Phenylephrine HCl/ Dextrose (Robert-Syneph/D5W) 500 ml @ 18.75 mls/ hr TITRATE IV Last administered on 01/07/17 23:21; Admin Dose 26.25 MLS/HR; Start 01/05/17 at 20:30 Acetaminophen (Tylenol Liquid) 650 mg Q4H PRN NGT PAIN AND OR ELEVATED TEMP Last administered on 01/06/17 04:29; Admin Dose 650 MG; Start 01/06/17 at 04:30 Insulin Glargine 10 unit 10 unit DAILY SC Last administered on 01/07/17 08:19; Admin Dose 10 UNIT; Start 01/06/17 at 14:00; Status Future Hold Acetaminophen (Ofirmev 1000mg/ 100ml Iv) 100 ml @ 400 mls/hr Q6H PRN IVPB FEVER Last administered on 01/16/17 11:35; Admin Dose 400 MLS/HR; Start at 06:30 IV Flush (NS 10 ml) 10 ml PRN PRN IV IV PROTOCOL; Start 01/10/17 at 11:30 Amiodarone HCl (Cordarone) 200 mg BID GTB Last administered on 01/17/17 09:34 ; Admin Dose 200 MG; Start 01/11/17 at 12:00 Diagnostic Test (Pha) (Accu-Chek) 1 ea Q4H XX Last administered on 01/17/17 09 :28; Admin Dose 1 EA; Start 01/11/17 at 17:00 Epoetin Mina (Epogen (Esrd)) 10,000 units [id number] SC Last administered on 22:44; Admin Dose 10,000 UNITS; Start 01/13/17 at 17:00 Insulin Aspart (Adult SC Insulin - Moder... Q4 SC Last administered on 09:00; Admin Dose 2 UNIT; Start 01/13/17 at 09:00 Meropenem/Sodium Chloride 50 ml @ 200 mls/hr Q12H IVPB Last administered on 09:28; Admin Dose 200 MLS/HR; Start 01/13/17 at 10:00 Total Parenteral Nutrition 1,000 ml @ 75 mls/hr [id number] IV Last administered on 01/16/17 23:49; Admin Dose 50 MLS/HR; Start 01/13/17 at 14:00 Pantoprazole 80 mg/Sodium Chloride 100 ml @ 10 mls/hr Q10H IV Last administered on 01/17/17 05:02; Admin Dose 10 MLS/HR; Start 01/14/17 at 06:00 Octreotide Acetate 500 mcg/ Sodium Chloride 50 ml @ 2.5 mls/hr Q20H IV Last administered on 01/16/17 22:49; Admin Dose 2.5 MLS/HR; Start 01/14/17 at 06:30 Vancomycin HCl (Vancocin) 250 ml @ 125 mls/hr Q72H IVPB Last administered on 05:58; Admin Dose 125 MLS/HR; Start 01/16/17 at 06:00 Metoprolol Tartrate (Lopressor) 25 mg BID PO Last administered on 01/17/17 09: 30; Admin Dose 25 MG; Start 01/15/17 at 15:00 Al Hydrox/Mg Hydrox/ Simethicone 30 ml 30 ml Q4 GTB Last administered on 09:29; Admin Dose 30 ML; Start 01/15/17 at 17:00 Caspofungin 50 mg/ Sodium Chloride 250 ml @ 250 mls/hr Q24H IVPB ; Start at 14:30 Potassium Chloride 50 ml @ 25 mls/hr Q2H IVPB Last administered on 01/17/17 09 :34; Admin Dose 25 MLS/HR; Start 01/17/17 at 08:30; Stop 01/17/17 at 14:29 Dextrose (D5W) 1,000 ml @ 125 mls/hr Q8H IV Last administered on 01/17/17 09: 46; Admin Dose 125 MLS/HR; Start 01/17/17 at 08:30; Stop 01/17/17 at 20:00 Assessment/Plan Chief Complaint/Hosp Course IMP: 1. Severe gallstone pancreatitis with septic shock, now slowly improving. Severe pancreatitis present on CT abdomen. Drop in hemoglobin. Questionable GI bleed. 2. Metabolic acidosis secondary to above and ARF 3. Renal failure likely ATN now requiring hemodialysis 4. 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 Status post thoracentesis right lung. Chest x-ray shows increasing effusions pulmonary edema and volume loss. 5. History of seizure disorder 6. GI bleed status post endoscopy yesterday findings per chart RECS: 1. Hemodialysis today per nephrology 2. Continue mechanical ventilation, CPAP weaning trial this morning with family at bedside 3. Broad-spectrum antibiotic coverage 4. Nasogastric tube to suction will discuss with GI can restart feeding. 5. GI recommendations. Consider surgery consult given CT findings of abdomen 6. Continue DVT and GI prophylaxis 35 min cc time Discussed with staff at bedside. Problems: AMPARO VALERIO MD, [facility] Jan 17, 2017 10:46
--- NOTE | 2017-01-17 12:24 | RADRPT ---
PROCEDURE: XR Chest. CLINICAL INDICATION: Pneumonia. CHF. TECHNIQUE: Single AP portable chest. COMPARISON: 01/13/2009 Chest x-ray FINDINGS: The cardiomediastinal silhouette is within normal limits of size. Endotracheal tube tip is 3.7 cm ab ove the kelly. NG tube tip overlying the body of the stomach. Right PICC line catheter tip overly ing the proximal superior vena cava. Left chest vagus nerve stimulator in place. Atherosclerotic ca lcification of the aorta. Bilateral pleural effusions large on the right and small on the left. Mil d vascular congestion. No pneumothorax. The osseous structures and soft tissues are unremarkable. IMPRESSION: 1. Mild vascular congestion and bilateral pleural effusions most compatible with CHF. 2. Support devices in satisfactory position as detailed above. RPTAT:AAJJ Physician Joana Date Time Electronically viewed and signed by Physician Joana on 01/17/2017 12:24 [email or web address]/
--- NOTE | 2017-01-17 13:19 | CONS ---
Date/Time of Note Date/Time of Note DATE: 01/17/17 TIME: 13:17 Assessment/Plan Assessment/Plan Additional Assessment/Plan Paroxysmal atrial fibrillation, currently sinus rhythm Severe sepsis Acute pancreatitis status post ERCP Preserved ejection fraction Respiratory failure, vent dependent Acute kidney injury now on hemodialysis Seizure disorder Psychiatric disorder Acute blood loss anemia GI bleed status post clipping -Patient currently with sinus tachycardia, this is likely secondary to overall medical state including GI bleeding. Would continue amiodarone to help maintain in sinus rhythm. No anticoagulation for atrial fibrillation given severe anemia and GI bleed. Fluid management as per our nephrology colleagues. Consultation Date/Type/Reason Admit Date/Time Jan 04, 2017 at 19:10 Initial Consult Date 01/05/17 Type of Consultation: cv Referring Provider: YING CASTAÑEDA 24 HR Interval Summary Free Text/Dictation Patient seen and examined, undergoing hemodialysis Exam/Review of Systems Vital Signs Vitals Vital Signs Date Time Temp Pulse Resp B/P Pulse Ox O2 Delivery O2 Flow Rate FiO2 01/17/17 12:20 120 26 01/17/17 09:30 96 30 01/17/17 07:00 141/82 Mechanical Ventilator 01/17/17 04:00 98.8 Intake and Output 01/16/17 01/16/17 01/17/17 15:00 23:00 07:00 Intake Total 1223 ml 888.0 ml 722 ml Output Total 4600 ml 275 ml 1030 ml Balance -3377 ml 613.0 ml -308 ml Exam Sedated and intubated, no apparent distress Head: normocephalic ENMT: intubated Respiratory: other (Coarse breath sounds bilaterally, no wheezing) Cardiovascular: other (S1-S2 heard), regular rate and rhythm (Tachycardic) Gastrointestinal: bowel sounds, non-tender, soft Extremities: edema Results Result Diagram: 01/17/17 0600 01/17/17 0600 Results 24 hrs Laboratory Tests Test 01/16/17 13:18 01/16/17 18:42 01/16/17 22:41 01/17/17 01:42 Bedside Glucose 151 130 119 125 Test 01/17/17 05:00 01/17/17 05:03 01/17/17 06:00 01/17/17 06:01 Prothrombin Time 15.2 H Prothrombin Time Ratio 1.2 INR International Normalized Ratio 1.19 Activated Partial Thromboplast Time 38.5 H Bedside Glucose 124 White Blood Count 23.7 H Red Blood Count 3.09 L Hemoglobin 9.5 #L Hematocrit 28.1 L Mean Corpuscular Volume 90.9 Mean Corpuscular Hemoglobin 30.7 Mean Corpuscular Hemoglobin Concent 33.8 Red Cell Distribution Width 16.2 H Platelet Count 317 Mean Platelet Volume 11.2 H Neutrophils % 78.3 H Lymphocytes % 5.6 L Monocytes % 4.6 Eosinophils % 0.3 Basophils % 0.5 Nucleated Red Blood Cells % 0.0 Neutrophils # 18.5 H Lymphocytes # 1.3 Monocytes # 1.1 H Eosinophils # 0.1 Basophils # 0.1 Nucleated Red Blood Cells # 0.0 Sodium Level 150 H Potassium Level 2.9 *L Chloride Level 108 Carbon Dioxide Level 25 Anion Gap 20 H Blood Urea Nitrogen 57 H Creatinine 2.56 H Glucose Level 119 Calcium Level 8.0 L Phosphorus Level 3.7 Magnesium Level 2.1 Lab Scanned Report BLOOD TRANSFUSION Test 01/17/17 10:24 01/17/17 13:07 Bedside Glucose 153 112 Medications Medications Current Medications Ondansetron HCl (Zofran Inj) 4 mg Q6H PRN IV NAUSEA AND/OR VOMITING; Start 01/04 at 19:30 Acetaminophen/ Hydrocodone Bitart ([place] (5/325)) 1 tab Q6H PRN PO MODERATE PAIN LEVEL 4-6; Start 01/04/17 at 19:30 Morphine Sulfate (morphine) 2 mg Q4H PRN IV SEVERE PAIN LEVEL 7-10 Last administered on 01/12/17 11:19; Admin Dose 2 MG; Start 01/04/17 at 19:30 Docusate Sodium (Colace) 100 mg Q12H PRN PO CONSTIPATION; Start 01/04/17 at 19: 30 Magnesium Hydroxide (Milk Of Mag) 30 ml DAILY PRN PO CONSTIPATION; Start at 19:30 Sodium Biphosphate/ Sodium Phosphate (Fleet Enema) 133 ml DAILY PRN [place] CONSTIPATION; Start 01/04/17 at 19:30 Heparin Sodium (Porcine) (Heparin (5000 Units/0.5 ml)) 5,000 unit Q12 SC Last administered on 01/17/17 09:36; Admin Dose 5,000 UNIT; Start 01/04/17 at 21:00; Status Future hold Lorazepam (Ativan) 0.5 mg Q6H PRN IV ANXIETY Last administered on 01/16/17 18: 28; Admin Dose 0.5 MG; Start 01/04/17 at 19:30 Hydralazine HCl (Apresoline) 10 mg Q6H PRN IV ELEVATED BLOOD PRESSURE; Start at 19:30 Nitroglycerin (Nitroglycerin (Sl Tab) 0.4 Mg) 1 tab Q5M PRN SL ANGINA; Start at 19:30 Phenobarbital (Luminal) 64.8 mg BID PO Last administered on 01/04/17 23:45; Admin Dose 64.8 MG; Start 01/04/17 at 21:00; Status Future Hold Topiramate (Topamax) 200 mg BID PO ; Start 01/05/17 at 21:00; Status Future Hold Miscellaneous Information 1 ea NOTE XX ; Start 01/04/17 at 19:30 Glucose (Glutose) 15 gm Q15M PRN PO DECREASED GLUCOSE; Start 01/04/17 at 19:30 Glucose (Glutose) 22.5 gm Q15M PRN PO DECREASED GLUCOSE; Start 01/04/17 at 19:30 Dextrose (D50w Syringe) 25 ml Q15M PRN IV DECREASED GLUCOSE Last administered on 01/08/17 05:36; Admin Dose 25 ML; Start 01/04/17 at 19:30 Dextrose (D50w Syringe) 50 ml Q15M PRN IV DECREASED GLUCOSE; Start 01/04/17 at 19:30 Glucagon (Glucagen) 1 mg Q15M PRN IM DECREASED GLUCOSE; Start 01/04/17 at 19:30 Glucose (Glutose) 15 gm Q15M PRN BUCCAL DECREASED GLUCOSE; Start 01/04/17 at 19: 30 Phenytoin (Dilantin Susp Cup) 100 mg TID PO Last administered on 01/04/17 23:44 ; Admin Dose 100 MG; Start 01/04/17 at 21:50; Status Future Hold Clonazepam 0.5 mg 0.5 mg Q8H PO Last administered on 01/04/17 23:45; Admin Dose 0.5 MG; Start 01/04/17 at 23:00; Status Future Hold Norepinephrine 16 mg/Dextrose 500 ml @ 1.87 mls/hr TITRATE IV Last administered on 01/07/17 00:23; Admin Dose 15 MLS/HR; Start 01/05/17 at 00:30 Fentanyl 100 ml @ 2.5 mls/hr TITRATE IV Last administered on 01/16/17 23:46; Admin Dose 6 MLS/HR; Start 01/05/17 at 08:39 Midazolam HCl 50 ml @ 1 mls/hr TITRATE IV Last administered on 01/17/17 05:19 ; Admin Dose 5 MLS/HR; Start 01/05/17 at 08:41 Levetiracetam 100 ml @ 400 mls/hr Q12 IVPB Last administered on 01/17/17 09: 29; Admin Dose 400 MLS/HR; Start 01/05/17 at 11:30 Vasopressin 60 unit/Dextrose 60 ml @ 1.2 mls/hr Q12H IV Last administered on 22:32; Admin Dose 2.4 MLS/HR; Start 01/05/17 at 17:30 Epinephrine 4 mg/ Sodium Chloride 250 ml @ 0 mls/hr TITRATE IV ; Start 01/05/17 at 18:30 Phenylephrine HCl/ Dextrose (Robert-Syneph/D5W) 500 ml @ 18.75 mls/ hr TITRATE IV Last administered on 01/07/17 23:21; Admin Dose 26.25 MLS/HR; Start 01/05/17 at 20:30 Acetaminophen (Tylenol Liquid) 650 mg Q4H PRN NGT PAIN AND OR ELEVATED TEMP Last administered on 01/06/17 04:29; Admin Dose 650 MG; Start 01/06/17 at 04:30 Insulin Glargine 10 unit 10 unit DAILY SC Last administered on 01/07/17 08:19; Admin Dose 10 UNIT; Start 01/06/17 at 14:00; Status Future Hold Acetaminophen (Ofirmev 1000mg/ 100ml Iv) 100 ml @ 400 mls/hr Q6H PRN IVPB FEVER Last administered on 01/16/17 11:35; Admin Dose 400 MLS/HR; Start at 06:30 IV Flush (NS 10 ml) 10 ml PRN PRN IV IV PROTOCOL; Start 01/10/17 at 11:30 Amiodarone HCl (Cordarone) 200 mg BID GTB Last administered on 01/17/17 09:34 ; Admin Dose 200 MG; Start 01/11/17 at 12:00 Diagnostic Test (Pha) (Accu-Chek) 1 ea Q4H XX Last administered on 01/17/17 13 :02; Admin Dose 1 EA; Start 01/11/17 at 17:00 Epoetin Mina (Epogen (Esrd)) 10,000 units [id number]@17 SC Last administered on 22:44; Admin Dose 10,000 UNITS; Start 01/13/17 at 17:00 Insulin Aspart (Adult SC Insulin - Moder... Q4 SC Last administered on 09:00; Admin Dose 2 UNIT; Start 01/13/17 at 09:00 Meropenem/Sodium Chloride 50 ml @ 200 mls/hr Q12H IVPB Last administered on 09:28; Admin Dose 200 MLS/HR; Start 01/13/17 at 10:00 Total Parenteral Nutrition 1,000 ml @ 75 mls/hr [id number] IV Last administered on 01/16/17 23:49; Admin Dose 50 MLS/HR; Start 01/13/17 at 14:00 Pantoprazole 80 mg/Sodium Chloride 100 ml @ 10 mls/hr Q10H IV Last administered on 01/17/17 05:02; Admin Dose 10 MLS/HR; Start 01/14/17 at 06:00 Octreotide Acetate 500 mcg/ Sodium Chloride 50 ml @ 2.5 mls/hr Q20H IV Last administered on 01/16/17 22:49; Admin Dose 2.5 MLS/HR; Start 01/14/17 at 06:30 Vancomycin HCl (Vancocin) 250 ml @ 125 mls/hr Q72H IVPB Last administered on 05:58; Admin Dose 125 MLS/HR; Start 01/16/17 at 06:00 Metoprolol Tartrate (Lopressor) 25 mg BID PO Last administered on 01/17/17 09: 30; Admin Dose 25 MG; Start 01/15/17 at 15:00 Al Hydrox/Mg Hydrox/ Simethicone 30 ml 30 ml Q4 GTB Last administered on 09:29; Admin Dose 30 ML; Start 01/15/17 at 17:00 Caspofungin 50 mg/ Sodium Chloride 250 ml @ 250 mls/hr Q24H IVPB ; Start at 14:30 Potassium Chloride 50 ml @ 25 mls/hr Q2H IVPB Last administered on 01/17/17t 12 :39; Admin Dose 25 MLS/HR; Start 01/17/17 at 08:30; Stop 01/17/17 at 14:29 Dextrose (D5W) 1,000 ml @ 125 mls/hr Q8H IV Last administered on 01/17/17 09: 46; Admin Dose 125 MLS/HR; Start 01/17/17 at 08:30; Stop 01/17/17 at 20:00 Vlad Leyva DO Jan 17, 2017 13:18
--- NOTE | 2017-01-17 14:22 | PN ---
Date/Time of Note Date/Time of Note DATE: 01/17/17 TIME: 14:20 Assessment/Plan VTE Prophylaxis VTE Prophylaxis Intervention: SCD's Lines/Catheters IV Catheter Type (from [facility]): kaya cath Assessment/Plan Chief Complaint/Hosp Course 1. Severe systemic shock with multiorgan failure secondary to severe pancreatitis superimposed by sepsis secondary to staph bacteremia, bilateral pneumonia, E. coli UTI -Improved 2. Severe gallstone pancreatitis * Status post ERCP with sphincterectomy and removal of common bile duct stones, placement of common bile duct stent done January 13, 2017 3. Probable GI bleed as well as abdominal distention 4. Acute respiratory failure secondary to #1 patient remains ventilator dependent 5. Acute kidney injury secondary to #1 now requiring hemodialysis 6. Persistent tachycardia likely secondary to #1 on amiodarone 7. Bilateral pneumonia with bilateral effusions R> L which is likely reactive from #2 * persistent despite right-sided thoracentesis January 13, 2017 8. Normocytic normochromic anemia: Worsening 9. History of seizure disorder on Keppra 10. Chronic debility on TPN 11. Persistent tachycardia: Plan: Continue ICU monitoring and vent support and sedation as indicated Continue Protonix and octreotide drips, continue to hold anticoagulation, follow -up H&H, follow GI plan Continue antibiotics per ID Continue TPN as well as gentle fluid hydration, appreciate cardiology input and management of tachycardia, patient is on amiodarone Closely monitor hemoglobin every 6 hours, transfuse as needed Continue Keppra for seizures Tachycardia is consistent with severe pancreatitis, Appreciate all consultants Further interventions per clinical course Prognosis remains guarded Prophylaxis: SCDs/Protonix drip Problems: Subjective 24 Hr Interval Summary Subjective hx not possible: pt non-verbal Exam/Review of Systems Vital Signs Vitals Vital Signs Date Time Temp Pulse Resp B/P Pulse Ox O2 Delivery O2 Flow Rate FiO2 01/17/17 13:30 120 26 100 30 01/17/17 07:00 141/82 Mechanical Ventilator 01/17/17 04:00 98.8 Intake and Output 01/16/17 01/16/17 01/17/17 15:00 23:00 07:00 Intake Total 1223 ml 888.0 ml 722 ml Output Total 4600 ml 275 ml 1030 ml Balance -3377 ml 613.0 ml -308 ml Exam Constitutional: non-verbal Respiratory: clear to auscultation Cardiovascular: regular rate and rhythm Gastrointestinal: soft, No distended Musculoskeletal: nl extremities to inspection Results Result Diagram: 01/17/17 0600 01/17/17 0600 Results 24 hrs Laboratory Tests Test 01/16/17 18:42 01/16/17 22:41 01/17/17 01:42 01/17/17 05:00 Bedside Glucose 130 119 125 Prothrombin Time 15.2 H Prothrombin Time Ratio 1.2 INR International Normalized Ratio 1.19 Activated Partial Thromboplast Time 38.5 H Test 01/17/17 05:03 01/17/17 06:00 01/17/17 06:01 01/17/17 10:24 Bedside Glucose 124 153 White Blood Count 23.7 H Red Blood Count 3.09 L Hemoglobin 9.5 #L Hematocrit 28.1 L Mean Corpuscular Volume 90.9 Mean Corpuscular Hemoglobin 30.7 Mean Corpuscular Hemoglobin Concent 33.8 Red Cell Distribution Width 16.2 H Platelet Count 317 Mean Platelet Volume 11.2 H Neutrophils % 78.3 H Lymphocytes % 5.6 L Monocytes % 4.6 Eosinophils % 0.3 Basophils % 0.5 Nucleated Red Blood Cells % 0.0 Neutrophils # 18.5 H Lymphocytes # 1.3 Monocytes # 1.1 H Eosinophils # 0.1 Basophils # 0.1 Nucleated Red Blood Cells # 0.0 Sodium Level 150 H Potassium Level 2.9 *L Chloride Level 108 Carbon Dioxide Level 25 Anion Gap 20 H Blood Urea Nitrogen 57 H Creatinine 2.56 H Glucose Level 119 Calcium Level 8.0 L Phosphorus Level 3.7 Magnesium Level 2.1 Lab Scanned Report BLOOD TRANSFUSION Test 01/17/17 13:07 Bedside Glucose 112 Medications Medications Current Medications Ondansetron HCl (Zofran Inj) 4 mg Q6H PRN IV NAUSEA AND/OR VOMITING; Start 01/04 at 19:30 Acetaminophen/ Hydrocodone Bitart ([place] (5/325)) 1 tab Q6H PRN PO MODERATE PAIN LEVEL 4-6; Start 01/04/17 at 19:30 Morphine Sulfate (morphine) 2 mg Q4H PRN IV SEVERE PAIN LEVEL 7-10 Last administered on 01/12/17t 11:19; Admin Dose 2 MG; Start 01/04/17 at 19:30 Docusate Sodium (Colace) 100 mg Q12H PRN PO CONSTIPATION; Start 01/04/17 at 19: 30 Magnesium Hydroxide (Milk Of Mag) 30 ml DAILY PRN PO CONSTIPATION; Start at 19:30 Sodium Biphosphate/ Sodium Phosphate (Fleet Enema) 133 ml DAILY PRN NE CONSTIPATION; Start 01/04/17 at 19:30 Heparin Sodium (Porcine) (Heparin (5000 Units/0.5 ml)) 5,000 unit Q12 SC Last administered on 01/16/17 23:11; Admin Dose 5,000 UNIT; Start 01/04/17 at 21:00; Status Future hold Lorazepam (Ativan) 0.5 mg Q6H PRN IV ANXIETY Last administered on 01/16/17 18: 28; Admin Dose 0.5 MG; Start 01/04/17 at 19:30 Hydralazine HCl (Apresoline) 10 mg Q6H PRN IV ELEVATED BLOOD PRESSURE; Start at 19:30 Nitroglycerin (Nitroglycerin (Sl Tab) 0.4 Mg) 1 tab Q5M PRN SL ANGINA; Start at 19:30 Phenobarbital (Luminal) 64.8 mg BID PO Last administered on 01/04/17 23:45; Admin Dose 64.8 MG; Start 01/04/17 at 21:00; Status Future Hold Topiramate (Topamax) 200 mg BID PO ; Start 01/05/17 at 21:00; Status Future Hold Miscellaneous Information 1 ea NOTE XX ; Start 01/04/17 at 19:30 Glucose (Glutose) 15 gm Q15M PRN PO DECREASED GLUCOSE; Start 01/04/17 at 19:30 Glucose (Glutose) 22.5 gm Q15M PRN PO DECREASED GLUCOSE; Start 01/04/17 at 19:30 Dextrose (D50w Syringe) 25 ml Q15M PRN IV DECREASED GLUCOSE Last administered on 01/08/17 05:36; Admin Dose 25 ML; Start 01/04/17 at 19:30 Dextrose (D50w Syringe) 50 ml Q15M PRN IV DECREASED GLUCOSE; Start 01/04/17 at 19:30 Glucagon (Glucagen) 1 mg Q15M PRN IM DECREASED GLUCOSE; Start 01/04/17 at 19:30 Glucose (Glutose) 15 gm Q15M PRN BUCCAL DECREASED GLUCOSE; Start 01/04/17 at 19: 30 Phenytoin (Dilantin Susp Cup) 100 mg TID PO Last administered on 01/04/17 23:44 ; Admin Dose 100 MG; Start 01/04/17 at 21:50; Status Future Hold Clonazepam 0.5 mg 0.5 mg Q8H PO Last administered on 01/04/17 23:45; Admin Dose 0.5 MG; Start 01/04/17 at 23:00; Status Future Hold Norepinephrine 16 mg/Dextrose 500 ml @ 1.87 mls/hr TITRATE IV Last administered on 01/07/17 00:23; Admin Dose 15 MLS/HR; Start 01/05/17 at 00:30 Fentanyl 100 ml @ 2.5 mls/hr TITRATE IV Last administered on 01/16/17 23:46; Admin Dose 6 MLS/HR; Start 01/05/17 at 08:39 Midazolam HCl 50 ml @ 1 mls/hr TITRATE IV Last administered on 01/17/17 05:19 ; Admin Dose 5 MLS/HR; Start 01/05/17 at 08:41 Levetiracetam 100 ml @ 400 mls/hr Q12 IVPB Last administered on 01/17/17 09: 29; Admin Dose 400 MLS/HR; Start 01/05/17 at 11:30 Vasopressin 60 unit/Dextrose 60 ml @ 1.2 mls/hr Q12H IV Last administered on 22:32; Admin Dose 2.4 MLS/HR; Start 01/05/17 at 17:30 Epinephrine 4 mg/ Sodium Chloride 250 ml @ 0 mls/hr TITRATE IV ; Start 01/05/17 at 18:30 Phenylephrine HCl/ Dextrose (Robert-Syneph/D5W) 500 ml @ 18.75 mls/ hr TITRATE IV Last administered on 01/07/17 23:21; Admin Dose 26.25 MLS/HR; Start 01/05/17 at 20:30 Acetaminophen (Tylenol Liquid) 650 mg Q4H PRN NGT PAIN AND OR ELEVATED TEMP Last administered on 01/06/17 04:29; Admin Dose 650 MG; Start 01/06/17 at 04:30 Insulin Glargine 10 unit 10 unit DAILY SC Last administered on 01/07/17 08:19; Admin Dose 10 UNIT; Start 01/06/17 at 14:00; Status Future Hold Acetaminophen (Ofirmev 1000mg/ 100ml Iv) 100 ml @ 400 mls/hr Q6H PRN IVPB FEVER Last administered on 01/16/17 11:35; Admin Dose 400 MLS/HR; Start at 06:30 IV Flush (NS 10 ml) 10 ml PRN PRN IV IV PROTOCOL; Start 01/10/17 at 11:30 Amiodarone HCl (Cordarone) 200 mg BID GTB Last administered on 01/17/17 09:34 ; Admin Dose 200 MG; Start 01/11/17 at 12:00 Diagnostic Test (Pha) (Accu-Chek) 1 ea Q4H XX Last administered on 01/17/17 13 :02; Admin Dose 1 EA; Start 01/11/17 at 17:00 Epoetin Mina (Epogen (Esrd)) 10,000 units [id number]@17 SC Last administered on 22:44; Admin Dose 10,000 UNITS; Start 01/13/17 at 17:00 Insulin Aspart (Adult SC Insulin - Moder... Q4 SC Last administered on 09:00; Admin Dose 2 UNIT; Start 01/13/17 at 09:00 Meropenem/Sodium Chloride 50 ml @ 200 mls/hr Q12H IVPB Last administered on 09:28; Admin Dose 200 MLS/HR; Start 01/13/17 at 10:00 Total Parenteral Nutrition 1,000 ml @ 75 mls/hr [id number] IV Last administered on 01/16/17 23:49; Admin Dose 50 MLS/HR; Start 01/13/17 at 14:00 Pantoprazole 80 mg/Sodium Chloride 100 ml @ 10 mls/hr Q10H IV Last administered on 01/17/17 05:02; Admin Dose 10 MLS/HR; Start 01/14/17 at 06:00 Octreotide Acetate 500 mcg/ Sodium Chloride 50 ml @ 2.5 mls/hr Q20H IV Last administered on 01/16/17 22:49; Admin Dose 2.5 MLS/HR; Start 01/14/17 at 06:30 Vancomycin HCl (Vancocin) 250 ml @ 125 mls/hr Q72H IVPB Last administered on 05:58; Admin Dose 125 MLS/HR; Start 01/16/17 at 06:00 Metoprolol Tartrate (Lopressor) 25 mg BID PO Last administered on 01/17/17 09: 30; Admin Dose 25 MG; Start 01/15/17 at 15:00 Al Hydrox/Mg Hydrox/ Simethicone 30 ml 30 ml Q4 GTB Last administered on 09:29; Admin Dose 30 ML; Start 01/15/17 at 17:00 Caspofungin 50 mg/ Sodium Chloride 250 ml @ 250 mls/hr Q24H IVPB ; Start at 14:30 Potassium Chloride 50 ml @ 25 mls/hr Q2H IVPB Last administered on 01/17/17 12 :39; Admin Dose 25 MLS/HR; Start 01/17/17 at 08:30; Stop 01/17/17 at 14:29 Dextrose (D5W) 1,000 ml @ 125 mls/hr Q8H IV Last administered on 01/17/17 09: 46; Admin Dose 125 MLS/HR; Start 01/17/17 at 08:30; Stop 01/17/17 at 20:00 YING CASTAÑEDA Jan 17, 2017 14:22
[2017-01-17] MEDS: OCTREOTIDE 500 MCG in SOD CHLORIDE 0.9% 49 ML IV SCH (14:43)
[2017-01-17] MEDS: TPN 1,000 ML IV SCH ×2 (14:49→16:04)
[2017-01-17] MEDS: CASPOFUNGIN 50 MG in SOD CHLORIDE 0.9% 250 ML IVPB SCH (15:30)
--- NOTE | 2017-01-17 17:00 | CONS ---
Date/Time of Note Date/Time of Note DATE: 01/17/17 TIME: 16:59 Assessment/Plan Assessment/Plan Chief Complaint/Hosp Course No acute events remains intubated sedated on Protonix drip and Sandostatin drip T-max 100.2 pulse 120 respirations 26 blood pressure 105/69 saturation 97 on vent WBC 23.7 H&H 9.5 and 28.1 platelets 370 neutrophils 78.3 Chest x-ray this morning revealed mild vascular congestion and bilateral pleural effusions most compatible with CHF CT of the abdomen and pelvis on January 14 revealed severe pancreatitis with surrounding edema and fluid, worse than seen previously Antibiotics: Vancomycin, meropenem day #12 Cancidas day #2 Indwelling's: Endotracheal tube, NG tube right femoral Gael catheter, right PICC line, Matias Microbiology: Blood culture on admission grew coag negative staph species urine culture grew E. coli repeat blood and urine culture had been negative Physical examination: Chronically ill-appearing elderly woman who looks comfortable on vent. Head atraumatic normocephalic, sclera nonicteric. Neck is supple, trachea midline. Chest rise symmetrical, breath sounds diminished to bases Heart: S1, S2, tachycardic Abdomen soft bowel tones present. Extremities with trace edema, no cyanosis Assessment: 1. Severe sepsis, status post shock 2. Severe, acute pancreatitis, possibly developing pseudocyst 3. Choledocholithiasis, status post ERCP 01/12/17 with removal of the stone and stent placement 4. Coag negative staph bacteremia, likely contaminant 5. Acute respiratory failure 6. Acute renal failure requiring hemodialysis 7. Status post urinary tract infection Plan: Remains unchanged, hemodynamically stable, with worsening pancreatitis per repeat CT, continue antibiotics, TPN, vent support per pulmonary, nephrology / GI recommendations. Discussed with staff Problems: Consultation Date/Type/Reason Admit Date/Time Jan 04, 2017 at 19:10 Initial Consult Date 01/11/17 Type of Consultation: ID Referring Provider: YING CASTAÑEDA Exam/Review of Systems Vital Signs Vitals Vital Signs Date Time Temp Pulse Resp B/P Pulse Ox O2 Delivery O2 Flow Rate FiO2 01/17/17 16:30 99.9 26 97/65 98 Mechanical Ventilator 01/17/17 13:30 120 30 Intake and Output 01/16/17 01/16/17 01/17/17 15:00 23:00 07:00 Intake Total 1223 ml 888.0 ml 722 ml Output Total 4600 ml 275 ml 1030 ml Balance -3377 ml 613.0 ml -308 ml Results Result Diagram: 01/17/17 0600 01/17/17 0600 Results 24 hrs Laboratory Tests Test 01/16/17 18:42 01/16/17 22:41 01/17/17 01:42 01/17/17 05:00 Bedside Glucose 130 119 125 Prothrombin Time 15.2 H Prothrombin Time Ratio 1.2 INR International Normalized Ratio 1.19 Activated Partial Thromboplast Time 38.5 H Test 01/17/17 05:03 01/17/17 06:00 01/17/17 06:01 01/17/17 10:24 Bedside Glucose 124 153 White Blood Count 23.7 H Red Blood Count 3.09 L Hemoglobin 9.5 #L Hematocrit 28.1 L Mean Corpuscular Volume 90.9 Mean Corpuscular Hemoglobin 30.7 Mean Corpuscular Hemoglobin Concent 33.8 Red Cell Distribution Width 16.2 H Platelet Count 317 Mean Platelet Volume 11.2 H Neutrophils % 78.3 H Lymphocytes % 5.6 L Monocytes % 4.6 Eosinophils % 0.3 Basophils % 0.5 Nucleated Red Blood Cells % 0.0 Neutrophils # 18.5 H Lymphocytes # 1.3 Monocytes # 1.1 H Eosinophils # 0.1 Basophils # 0.1 Nucleated Red Blood Cells # 0.0 Sodium Level 150 H Potassium Level 2.9 *L Chloride Level 108 Carbon Dioxide Level 25 Anion Gap 20 H Blood Urea Nitrogen 57 H Creatinine 2.56 H Glucose Level 119 Calcium Level 8.0 L Phosphorus Level 3.7 Magnesium Level 2.1 Lab Scanned Report BLOOD TRANSFUSION Test 01/17/17 13:07 Bedside Glucose 112 Medications Medications Current Medications Ondansetron HCl (Zofran Inj) 4 mg Q6H PRN IV NAUSEA AND/OR VOMITING; Start 01/04 at 19:30 Acetaminophen/ Hydrocodone Bitart ([place] (5/325)) 1 tab Q6H PRN PO MODERATE PAIN LEVEL 4-6; Start 01/04/17 at 19:30 Morphine Sulfate (morphine) 2 mg Q4H PRN IV SEVERE PAIN LEVEL 7-10 Last administered on 01/12/17t 11:19; Admin Dose 2 MG; Start 01/04/17 at 19:30 Docusate Sodium (Colace) 100 mg Q12H PRN PO CONSTIPATION; Start 01/04/17 at 19: 30 Magnesium Hydroxide (Milk Of Mag) 30 ml DAILY PRN PO CONSTIPATION; Start at 19:30 Sodium Biphosphate/ Sodium Phosphate (Fleet Enema) 133 ml DAILY PRN IN CONSTIPATION; Start 01/04/17 at 19:30 Lorazepam (Ativan) 0.5 mg Q6H PRN IV ANXIETY Last administered on 01/16/17 18: 28; Admin Dose 0.5 MG; Start 01/04/17 at 19:30 Hydralazine HCl (Apresoline) 10 mg Q6H PRN IV ELEVATED BLOOD PRESSURE; Start at 19:30 Nitroglycerin (Nitroglycerin (Sl Tab) 0.4 Mg) 1 tab Q5M PRN SL ANGINA; Start at 19:30 Phenobarbital (Luminal) 64.8 mg BID PO Last administered on 01/04/17 23:45; Admin Dose 64.8 MG; Start 01/04/17 at 21:00; Status Future Hold Topiramate (Topamax) 200 mg BID PO ; Start 01/05/17 at 21:00; Status Future Hold Miscellaneous Information 1 ea NOTE XX ; Start 01/04/17 at 19:30 Glucose (Glutose) 15 gm Q15M PRN PO DECREASED GLUCOSE; Start 01/04/17 at 19:30 Glucose (Glutose) 22.5 gm Q15M PRN PO DECREASED GLUCOSE; Start 01/04/17 at 19:30 Dextrose (D50w Syringe) 25 ml Q15M PRN IV DECREASED GLUCOSE Last administered on 01/08/17 05:36; Admin Dose 25 ML; Start 01/04/17 at 19:30 Dextrose (D50w Syringe) 50 ml Q15M PRN IV DECREASED GLUCOSE; Start 01/04/17 at 19:30 Glucagon (Glucagen) 1 mg Q15M PRN IM DECREASED GLUCOSE; Start 01/04/17 at 19:30 Glucose (Glutose) 15 gm Q15M PRN BUCCAL DECREASED GLUCOSE; Start 01/04/17 at 19: 30 Phenytoin (Dilantin Susp Cup) 100 mg TID PO Last administered on 01/04/17 23:44 ; Admin Dose 100 MG; Start 01/04/17 at 21:50; Status Future Hold Clonazepam 0.5 mg 0.5 mg Q8H PO Last administered on 01/04/17 23:45; Admin Dose 0.5 MG; Start 01/04/17 at 23:00; Status Future Hold Norepinephrine 16 mg/Dextrose 500 ml @ 1.87 mls/hr TITRATE IV Last administered on 01/07/17 00:23; Admin Dose 15 MLS/HR; Start 01/05/17 at 00:30 Fentanyl 100 ml @ 2.5 mls/hr TITRATE IV Last administered on 01/16/17 23:46; Admin Dose 6 MLS/HR; Start 01/05/17 at 08:39 Midazolam HCl 50 ml @ 1 mls/hr TITRATE IV Last administered on 01/17/17 05:19 ; Admin Dose 5 MLS/HR; Start 01/05/17 at 08:41 Levetiracetam 100 ml @ 400 mls/hr Q12 IVPB Last administered on 01/17/17 09: 29; Admin Dose 400 MLS/HR; Start 01/05/17 at 11:30 Vasopressin 60 unit/Dextrose 60 ml @ 1.2 mls/hr Q12H IV Last administered on 22:32; Admin Dose 2.4 MLS/HR; Start 01/05/17 at 17:30 Epinephrine 4 mg/ Sodium Chloride 250 ml @ 0 mls/hr TITRATE IV ; Start 01/05/17 at 18:30 Phenylephrine HCl/ Dextrose (Robert-Syneph/D5W) 500 ml @ 18.75 mls/ hr TITRATE IV Last administered on 01/07/17 23:21; Admin Dose 26.25 MLS/HR; Start 01/05/17 at 20:30 Acetaminophen (Tylenol Liquid) 650 mg Q4H PRN NGT PAIN AND OR ELEVATED TEMP Last administered on 01/06/17 04:29; Admin Dose 650 MG; Start 01/06/17 at 04:30 Insulin Glargine 10 unit 10 unit DAILY SC Last administered on 01/07/17 08:19; Admin Dose 10 UNIT; Start 01/06/17 at 14:00; Status Future Hold Acetaminophen (Ofirmev 1000mg/ 100ml Iv) 100 ml @ 400 mls/hr Q6H PRN IVPB FEVER Last administered on 01/16/17 11:35; Admin Dose 400 MLS/HR; Start at 06:30 IV Flush (NS 10 ml) 10 ml PRN PRN IV IV PROTOCOL; Start 01/10/17 at 11:30 Amiodarone HCl (Cordarone) 200 mg BID GTB Last administered on 01/17/17 09:34 ; Admin Dose 200 MG; Start 01/11/17 at 12:00 Diagnostic Test (Pha) (Accu-Chek) 1 ea Q4H XX Last administered on 01/17/17 13 :02; Admin Dose 1 EA; Start 01/11/17 at 17:00 Epoetin Mina (Epogen (Esrd)) 10,000 units [id number]@17 SC Last administered on 22:44; Admin Dose 10,000 UNITS; Start 01/13/17 at 17:00 Insulin Aspart (Adult SC Insulin - Moder... Q4 SC Last administered on 09:00; Admin Dose 2 UNIT; Start 01/13/17 at 09:00 Meropenem/Sodium Chloride 50 ml @ 200 mls/hr Q12H IVPB Last administered on 09:28; Admin Dose 200 MLS/HR; Start 01/13/17 at 10:00 Total Parenteral Nutrition 1,000 ml @ 75 mls/hr [id number] IV Last administered on 01/17/17 16:04; Admin Dose 75 MLS/HR; Start 01/13/17 at 14:00 Pantoprazole 80 mg/Sodium Chloride 100 ml @ 10 mls/hr Q10H IV Last administered on 01/17/17 14:43; Admin Dose 10 MLS/HR; Start 01/14/17 at 06:00 Octreotide Acetate 500 mcg/ Sodium Chloride 50 ml @ 2.5 mls/hr Q20H IV Last administered on 01/17/17 14:43; Admin Dose 2.5 MLS/HR; Start 01/14/17 at 06:30 Vancomycin HCl (Vancocin) 250 ml @ 125 mls/hr Q72H IVPB Last administered on 05:58; Admin Dose 125 MLS/HR; Start 01/16/17 at 06:00 Metoprolol Tartrate (Lopressor) 25 mg BID PO Last administered on 01/17/17 09: 30; Admin Dose 25 MG; Start 01/15/17 at 15:00 Al Hydrox/Mg Hydrox/ Simethicone 30 ml 30 ml Q4 GTB Last administered on 13:45; Admin Dose 30 ML; Start 01/15/17 at 17:00 Caspofungin 50 mg/ Sodium Chloride 250 ml @ 250 mls/hr Q24H IVPB Last administered on 01/17/17 15:30; Admin Dose 250 MLS/HR; Start 01/17/17 at 14:30 Dextrose (D5W) 1,000 ml @ 125 mls/hr Q8H IV Last administered on 01/17/17 09: 46; Admin Dose 125 MLS/HR; Start 01/17/17 at 08:30; Stop 01/17/17 at 20:00 MIKE TURCIOS NP Jan 17, 2017 17:00
[2017-01-17 17:14] LABS: CALCIUM 7.3 mg/dl (8.4-10.2); CREATININE 2.51 mg/dl (0.44-1.00); POTASSIUM 3.3 mmol/L (3.5-5.1)
[2017-01-17] MEDS: ACETAMINOPHEN 650MG/20.3ML CUP NGT PRN (18:40)
[2017-01-17] MEDS ORDERED: DEXTROSE 5% WATER 500 ML BAG IV ONE (21:00)
[2017-01-17] MEDS ORDERED: POTASSIUM CHLORIDE 20 MEQ in SOD CHLORIDE 0.9% 100 ML IVPB ONE (23:00)
[2017-01-18] VITALS (53 sets, daily range): BP systolic 99–140; BP diastolic 66–85; PULSE 99–153; RESP 20–32
[2017-01-18] MEDS: AL HYDROX/MG HYDROX/SIMETH 30 ML CUP GTB SCH ×6 (00:42→21:42)
[2017-01-18] MEDS: PANTOPRAZOLE IV 80 MG in SOD CHLORIDE 0.9% 100 ML IV SCH ×3 (00:42→20:00)
[2017-01-18] MEDS: Insulin NOVOLOG SS MODERATE Algorithm(NPO/TPN/ENTERAL FEEDS) SC SCH ×6 (00:54→21:00)
[2017-01-18] MEDS: ACCU-CHEK XX SCH ×6 (01:12→21:48)
[2017-01-18] MEDS: FENTAnyl (DRIP) 1000 mcg/100mL 100 ML IV SCH ×3 (01:16→14:00)
[2017-01-18 01:49] LABS: ALBUMIN 2.6 g/dl (3.3-4.9); ALBUMIN/GLOBULIN RATIO 0.61; BILIRUBIN,DIRECT 0.6 mg/dl (0.00-0.20); BILIRUBIN,INDIRECT 0.3 mg/dl (0-1.1); BILIRUBIN,TOTAL 0.9 mg/dl (0.2-1.3); CALCIUM 7.5 mg/dl (8.4-10.2); CREATININE 2.82 mg/dl (0.44-1.00); POTASSIUM 5.4 mmol/L (3.5-5.1); TOTAL PROTEIN 6.8 g/dl (6.1-8.1)
[2017-01-18] MEDS: MIDAZOLAM (DRIP) 50 mg/50 mL 50 ML IV SCH ×5 (02:05→23:14)
[2017-01-18] MEDS: morphine 2 MG INJ IV PRN (02:05)
[2017-01-18 03:49] LABS: ADD SCAN DIFF NO
[2017-01-18 04:11] LABS: CALCIUM 7.5 mg/dl (8.4-10.2); CREATININE 2.81 mg/dl (0.44-1.00); PHOSPHORUS 3.5 mg/dl (2.5-4.9); POTASSIUM 3.6 mmol/L (3.5-5.1)
[2017-01-18 04:13] LABS: ABNORMAL IP MESSAGE 1; BASOPHIL # 0.1 10^3/ul (0.0-0.1); BASOPHILS % 0.5 % (0.0-2.0); EOSINOPHILS # 0.1 10^3/ul (0.0-0.5); EOSINOPHILS % 0.4 % (0.0-7.0); HEMATOCRIT 27.8 % (37.0-47.0); HEMOGLOBIN 9.1 g/dl (12.0-16.0); LYMPHOCYTES # 1.6 10^3/ul (0.8-2.9); LYMPHOCYTES % 7.2 % (15.0-51.0); MEAN CORPUSCULAR HEMOGLOBIN 30.2 pg (29.0-33.0); MEAN CORPUSCULAR HGB CONC 32.7 g/dl (32.0-37.0); MEAN CORPUSCULAR VOLUME 92.4 fl (82.0-101.0); MEAN PLATELET VOLUME 11.2 fl (7.4-10.4); MONOCYTE # 1.1 10^3/ul (0.3-0.9); MONOCYTES % 4.8 % (0.0-11.0); NEUTROPHIL # 17.7 10^3/ul (1.6-7.5); NEUTROPHILS % 77.8 % (39.0-77.0); PLATELET COUNT 430 10^3/UL (140-415); RED BLOOD COUNT 3.01 10^6/ul (4.20-5.40); RED CELL DISTRIBUTION WIDTH 16.4 % (11.5-14.5); WHITE BLOOD COUNT 22.8 10^3/ul (4.8-10.8)
[2017-01-18] MEDS: VASOPRESSIN 60 UNIT in DEXTROSE 5% 57 ML IV SCH ×2 (05:30→17:30)
[2017-01-18 07:57] LABS: AADO2 Arterial 102.9 mmHg (7.0-24.0); Allen Test ACCEPTAB; Arterial Base Excess -1.1 mmol/L (-3.0-3); Arterial COHb 0.3 % (0.0-3.0); Arterial Fraction of Oxyhgb 94.5 % (93.0-99.0); Arterial HCO3 21.7 mmol/L (22.0-26.0); Arterial MetHb 0.4 % (0.0-1.5); Arterial Total Hemglobin 10.6 g/dl (12.0-18.0); MODE VENT - AC
--- NOTE | 2017-01-18 08:25 | CONS ---
Date/Time of Note Date/Time of Note DATE: 01/18/17 TIME: 08:21 Assessment/Plan Assessment/Plan Chief Complaint/Hosp Course Admitted with abdominal pain and evidence of severe pancreatitis in otherwise good health. Problems: Additional Assessment/Plan 1. ARF sec to hypotension and acute pancreatitis dialysis dependent, next HD tomm 2. Vol overload improved, cxr noted yest 3. Hypernatremia, D5W started 4. Upper gi bleeding, tasha ampullary, clipped 5. Common duct stones removed, stent placed (ercp) 6. Pul infliltrates abx per id Consultation Date/Type/Reason Admit Date/Time Jan 04, 2017 at 19:10 Initial Consult Date 01/05/17 Type of Consultation: ID Referring Provider: YING CASTAÑEDA 24 HR Interval Summary Subjective hx not possible: other (intubated, responds to name) Exam/Review of Systems Vital Signs Vitals Vital Signs Date Time Temp Pulse Resp B/P Pulse Ox O2 Delivery O2 Flow Rate FiO2 01/18/17 07:30 26 119/75 100 01/18/17 05:00 Mechanical Ventilator 01/18/17 04:50 111 30 01/18/17 04:00 98.9 Intake and Output 01/17/17 01/17/17 01/18/17 15:00 23:00 07:00 Intake Total 1913.0 ml 1149.5 ml 495.0 ml Output Total 4910 ml 880 ml 535 ml Balance -2997.0 ml 269.5 ml -40.0 ml Exam Neck: No jvd Respiratory: diminished breath sounds Cardiovascular: regular rate and rhythm Gastrointestinal: soft Extremities: edema (is less , pedal and sacral) Results Result Diagram: 01/18/17 0325 01/18/17 0325 Results 24 hrs Laboratory Tests Test 01/17/17 10:24 01/17/17 13:07 01/17/17 16:50 01/17/17 18:35 Bedside Glucose 153 112 122 Sodium Level 149 H Potassium Level 3.3 L Chloride Level 109 Carbon Dioxide Level 24 Anion Gap 19 H Blood Urea Nitrogen 57 H Creatinine 2.51 H Glucose Level 108 Calcium Level 7.3 L Test 01/17/17 21:05 01/18/17 00:44 01/18/17 00:46 01/18/17 01:00 Bedside Glucose 147 84 98 Sodium Level 148 H Potassium Level 5.4 #H Chloride Level 113 H Carbon Dioxide Level 23 Anion Gap 17 H Blood Urea Nitrogen 62 H Creatinine 2.82 H Glucose Level 117 Calcium Level 7.5 L Total Bilirubin 0.9 Direct Bilirubin 0.60 #H Indirect Bilirubin 0.3 Aspartate Amino Transf (AST/SGOT) 233 H Alanine Aminotransferase (ALT/SGPT) 58 Alkaline Phosphatase 468 #H Total Protein 6.8 Albumin 2.6 L Globulin 4.20 H Albumin/Globulin Ratio 0.61 Test 01/18/17 03:25 01/18/17 05:12 01/18/17 07:00 White Blood Count 22.8 H Red Blood Count 3.01 L Hemoglobin 9.1 L Hematocrit 27.8 L Mean Corpuscular Volume 92.4 Mean Corpuscular Hemoglobin 30.2 Mean Corpuscular Hemoglobin Concent 32.7 Red Cell Distribution Width 16.4 H Platelet Count 430 #H Mean Platelet Volume 11.2 H Neutrophils % 77.8 H Lymphocytes % 7.2 L Monocytes % 4.8 Eosinophils % 0.4 Basophils % 0.5 Nucleated Red Blood Cells % 0.0 Neutrophils # 17.7 H Lymphocytes # 1.6 Monocytes # 1.1 H Eosinophils # 0.1 Basophils # 0.1 Nucleated Red Blood Cells # 0.0 Sodium Level 149 H Potassium Level 3.6 Chloride Level 112 H Carbon Dioxide Level 22 Anion Gap 19 H Blood Urea Nitrogen 63 H Creatinine 2.81 H Glucose Level 117 Calcium Level 7.5 L Phosphorus Level 3.5 Bedside Glucose 108 Blood Gas Specimen Source Blood arterial Arterial Blood Date Drawn 01/18/2017 7:20:01 AM Arterial Blood pH (Temp corrected) 7.479 H Arterial Blood pCO2 (Temp correct) 29.9 L Arterial Blood pO2 (Temp corrected) 75.9 L Arterial Blood HCO3 21.7 L Arterial Blood Base Excess -1.1 Arterial Blood Oxygen Saturation 95.2 Rashad Test ACCEPTAB Arterial Blood Gas Puncture Site Right Radial Arterial Blood Carboxyhemoglobin 0.3 Arterial Blood Methemoglobin 0.4 Blood Gas A-a O2 Differential 102.9 H Oxyhemoglobin Percent 94.5 Total Hemoglobin 10.6 L Blood Gas Temperature 37.0 Blood Gas Respiration Rate 26.0 Blood Gas Actual Respiration Rate 26 Blood Gas Modality VENT - AC FiO2 30.0 Blood Gas Tidal Volume 450.0 Blood Gas Low PEEP Setting 5.0 Blood Gas Notified Whom JLD Blood Gas Notified Time 01/18/2017 7:57:38 AM Medications Medications Current Medications Ondansetron HCl (Zofran Inj) 4 mg Q6H PRN IV NAUSEA AND/OR VOMITING; Start 01/04 at 19:30 Acetaminophen/ Hydrocodone Bitart ([place] (5/325)) 1 tab Q6H PRN PO MODERATE PAIN LEVEL 4-6; Start 01/04/17 at 19:30 Morphine Sulfate (morphine) 2 mg Q4H PRN IV SEVERE PAIN LEVEL 7-10 Last administered on 01/18/17 02:05; Admin Dose 2 MG; Start 01/04/17 at 19:30 Docusate Sodium (Colace) 100 mg Q12H PRN PO CONSTIPATION; Start 01/04/17 at 19: 30 Magnesium Hydroxide (Milk Of Mag) 30 ml DAILY PRN PO CONSTIPATION; Start at 19:30 Sodium Biphosphate/ Sodium Phosphate (Fleet Enema) 133 ml DAILY PRN SC CONSTIPATION; Start 01/04/17 at 19:30 Lorazepam (Ativan) 0.5 mg Q6H PRN IV ANXIETY Last administered on 01/16/17 18: 28; Admin Dose 0.5 MG; Start 01/04/17 at 19:30 Hydralazine HCl (Apresoline) 10 mg Q6H PRN IV ELEVATED BLOOD PRESSURE; Start at 19:30 Nitroglycerin (Nitroglycerin (Sl Tab) 0.4 Mg) 1 tab Q5M PRN SL ANGINA; Start at 19:30 Phenobarbital (Luminal) 64.8 mg BID PO Last administered on 01/04/17 23:45; Admin Dose 64.8 MG; Start 01/04/17 at 21:00; Status Future Hold Topiramate (Topamax) 200 mg BID PO ; Start 01/05/17 at 21:00; Status Future Hold Miscellaneous Information 1 ea NOTE XX ; Start 01/04/17 at 19:30 Glucose (Glutose) 15 gm Q15M PRN PO DECREASED GLUCOSE; Start 01/04/17 at 19:30 Glucose (Glutose) 22.5 gm Q15M PRN PO DECREASED GLUCOSE; Start 01/04/17 at 19:30 Dextrose (D50w Syringe) 25 ml Q15M PRN IV DECREASED GLUCOSE Last administered on 01/08/17 05:36; Admin Dose 25 ML; Start 01/04/17 at 19:30 Dextrose (D50w Syringe) 50 ml Q15M PRN IV DECREASED GLUCOSE; Start 01/04/17 at 19:30 Glucagon (Glucagen) 1 mg Q15M PRN IM DECREASED GLUCOSE; Start 01/04/17 at 19:30 Glucose (Glutose) 15 gm Q15M PRN BUCCAL DECREASED GLUCOSE; Start 01/04/17 at 19: 30 Phenytoin (Dilantin Susp Cup) 100 mg TID PO Last administered on 01/04/17 23:44 ; Admin Dose 100 MG; Start 01/04/17 at 21:50; Status Future Hold Clonazepam 0.5 mg 0.5 mg Q8H PO Last administered on 01/04/17 23:45; Admin Dose 0.5 MG; Start 01/04/17 at 23:00; Status Future Hold Norepinephrine 16 mg/Dextrose 500 ml @ 1.87 mls/hr TITRATE IV Last administered on 01/07/17 00:23; Admin Dose 15 MLS/HR; Start 01/05/17 at 00:30 Fentanyl 100 ml @ 2.5 mls/hr TITRATE IV Last administered on 01/18/17 01:16; Admin Dose 10 MLS/HR; Start 01/05/17 at 08:39 Midazolam HCl 50 ml @ 1 mls/hr TITRATE IV Last administered on 01/18/17 07:11 ; Admin Dose 10 MLS/HR; Start 01/05/17 at 08:41 Levetiracetam 100 ml @ 400 mls/hr Q12 IVPB Last administered on 01/17/17 21: 03; Admin Dose 400 MLS/HR; Start 01/05/17 at 11:30 Vasopressin 60 unit/Dextrose 60 ml @ 1.2 mls/hr Q12H IV Last administered on 22:32; Admin Dose 2.4 MLS/HR; Start 01/05/17 at 17:30 Epinephrine 4 mg/ Sodium Chloride 250 ml @ 0 mls/hr TITRATE IV ; Start 01/05/17 at 18:30 Phenylephrine HCl/ Dextrose (Robert-Syneph/D5W) 500 ml @ 18.75 mls/ hr TITRATE IV Last administered on 01/07/17 23:21; Admin Dose 26.25 MLS/HR; Start 01/05/17 at 20:30 Acetaminophen (Tylenol Liquid) 650 mg Q4H PRN NGT PAIN AND OR ELEVATED TEMP Last administered on 01/17/17 18:40; Admin Dose 650 MG; Start 01/06/17 at 04:30 Insulin Glargine 10 unit 10 unit DAILY SC Last administered on 01/07/17 08:19; Admin Dose 10 UNIT; Start 01/06/17 at 14:00; Status Future Hold Acetaminophen (Ofirmev 1000mg/ 100ml Iv) 100 ml @ 400 mls/hr Q6H PRN IVPB FEVER Last administered on 01/16/17 11:35; Admin Dose 400 MLS/HR; Start at 06:30 IV Flush (NS 10 ml) 10 ml PRN PRN IV IV PROTOCOL; Start 01/10/17 at 11:30 Amiodarone HCl (Cordarone) 200 mg BID GTB Last administered on 01/17/17 21:03 ; Admin Dose 200 MG; Start 01/11/17 at 12:00 Diagnostic Test (Pha) (Accu-Chek) 1 ea Q4H XX Last administered on 01/18/17 05 :13; Admin Dose 1 EA; Start 01/11/17 at 17:00 Epoetin Mina (Epogen (Esrd)) 10,000 units [id number]@17 SC Last administered on 22:44; Admin Dose 10,000 UNITS; Start 01/13/17 at 17:00 Insulin Aspart (Adult SC Insulin - Moder... Q4 SC Last administered on 21:08; Admin Dose 2 UNIT; Start 01/13/17 at 09:00 Meropenem/Sodium Chloride 50 ml @ 200 mls/hr Q12H IVPB Last administered on 22:20; Admin Dose 200 MLS/HR; Start 01/13/17 at 10:00 Total Parenteral Nutrition 1,000 ml @ 75 mls/hr [id number] IV Last administered on 01/17/17 16:04; Admin Dose 75 MLS/HR; Start 01/13/17 at 14:00 Pantoprazole 80 mg/Sodium Chloride 100 ml @ 10 mls/hr Q10H IV Last administered on 01/18/17 00:42; Admin Dose 10 MLS/HR; Start 01/14/17 at 06:00 Octreotide Acetate 500 mcg/ Sodium Chloride 50 ml @ 2.5 mls/hr Q20H IV Last administered on 01/17/17 14:43; Admin Dose 2.5 MLS/HR; Start 01/14/17 at 06:30 Vancomycin HCl (Vancocin) 250 ml @ 125 mls/hr Q72H IVPB Last administered on 05:58; Admin Dose 125 MLS/HR; Start 01/16/17 at 06:00 Metoprolol Tartrate (Lopressor) 25 mg BID PO Last administered on 01/17/17 09: 30; Admin Dose 25 MG; Start 01/15/17 at 15:00 Al Hydrox/Mg Hydrox/ Simethicone 30 ml 30 ml Q4 GTB Last administered on 05:12; Admin Dose 30 ML; Start 01/15/17 at 17:00 Caspofungin/ Sodium Chloride (Cancidas/NS) 250 ml @ 250 mls/hr Q24H IVPB Last administered on 01/17/17 15:30; Admin Dose 250 MLS/HR; Start 01/17/17 at 14:30 FRANCIS JULES MD Jan 18, 2017 08:24
[2017-01-18] MEDS: AMIODARONE 200 MG TAB GTB SCH ×2 (09:21→21:42)
[2017-01-18] MEDS: METOPROLOL 25 MG TAB PO SCH ×2 (09:21→21:42)
[2017-01-18] MEDS: BALSAM PERU/CASTOR OIL 60 GM TUBE TOP SCH (09:22)
[2017-01-18] MEDS: LEVETIRACETAM 1000 MG (PMX) 100 ML IVPB SCH ×2 (09:29→21:36)
[2017-01-18] MEDS: MEROPENEM 500MG/50 ML (PMX) 50 ML IVPB SCH ×2 (09:29→22:29)
[2017-01-18] MEDS: OCTREOTIDE 500 MCG in SOD CHLORIDE 0.9% 49 ML IV SCH (09:29)
[2017-01-18] MEDS: TPN 1,000 ML IV SCH ×2 (09:30→19:14)
[2017-01-18] MEDS: POTASSIUM CHLORIDE 50 ML IVPB SCH ×3 (09:32→11:17)
[2017-01-18] MEDS: DEXTROSE 5% 1,000 ML IV SCH ×3 (09:32→21:50)
--- NOTE | 2017-01-18 10:23 | RADRPT ---
PROCEDURE: XR Chest. CLINICAL INDICATION: verify nasojejunal tube placement TECHNIQUE: Single frontal chest x-ray. COMPARISON: 05:59 a.m. FINDINGS: There is endotracheal tube in place unchanged. A nasal jejunal tube is in place. Tip of the tube i s coiled to the fundus of the stomach. Hilar vascular congestion with bibasilar atelectasis and sma ll bilateral pleural effusions is unchanged. .. The cardiomediastinal silhouette is unremarkable. The osseous structures are intact. IMPRESSION: Nasal jejunal tube placed with tip coiled to the fundus of the stomach. Endotracheal tube in place. Hilar vascular congestion and small bilateral pleural effusions unchanged.. RPTAT: EE .Bishnu Haq MD, Date Time Electronically viewed and signed by .Bishnu Haq MD, on 01/18/2017 10:23 .L/
--- NOTE | 2017-01-18 10:33 | RADRPT ---
PROCEDURE: XR Chest 1 View. CLINICAL INDICATION: Shortness of breath TECHNIQUE: AP view of the chest was obtained. COMPARISON: Yesterday FINDINGS: The cardiomediastinal silhouette is within normal limits. Endotracheal and nasogastric tubes are sta ble and appear in grossly appropriate location. Central pulmonary vascular congestion and interstit ial prominence in both lungs is unchanged. Patchy infiltrates throughout the right lung and in the left lower lobe are stable. Small pleural effusions are unchanged. The osseous structures are uncha nged. IMPRESSION: Stable central pulmonary vascular congestion and interstitial prominence in both lungs. Stable patchy infiltrates throughout the right lung and in the left lower lobe, combined with small pleural effusions. RPTAT: AA .Stephane Navas MD, Date Time Electronically viewed and signed by .Stephane Navas MD, on 01/18/2017 10:33 .P/
--- NOTE | 2017-01-18 10:44 | CONS ---
Date/Time of Note Date/Time of Note DATE: 01/18/17 TIME: 10:42 Assessment/Plan Assessment/Plan Chief Complaint/Hosp Course No acute events per report, patient is awake follows commands looks comfortable on vent. T-max yesterday was 101.1 T-current 98.9 pulse 117 respirations 26 blood pressure 119/75 saturation 100 on vent WBC 22.8 H&H 9.1 and 27.8 platelets 430 neutrophils 77.8 Chest x-ray this morning revealed hilar vascular congestion and small bilateral pleural effusions Indwelling's: Endotracheal tube Dobbhoff Matias catheter right femoral Gael right upper extremity PICC line CT of the abdomen and pelvis on January 14 revealed severe pancreatitis with surrounding edema and fluid, worse than seen previously Antibiotics: Vancomycin, meropenem day #13 Cancidas day #3 Microbiology: Blood culture on admission grew coag negative staph species urine culture grew E. coli repeat blood and urine culture had been negative Physical examination: Chronically ill-appearing elderly woman who looks comfortable on vent. Head atraumatic normocephalic, sclera nonicteric. Neck is supple, trachea midline. Chest rise symmetrical, breath sounds diminished to bases Heart: S1, S2, tachycardic Abdomen soft bowel tones present. Extremities with trace edema, no cyanosis Assessment: 1. Severe sepsis 2 to #2, status post shock 2. Severe, acute pancreatitis, possibly developing pseudocyst 3. Choledocholithiasis, status post ERCP 01/12/17 with removal of the stone and stent placement 4. Coag negative staph bacteremia, likely contaminant 5. Acute respiratory failure 6. Acute renal failure requiring hemodialysis 7. Status post urinary tract infection Plan: Remains hemodynamically stable, status post fever yesterday, cultures sent, continue antibiotics, TPN, vent support per pulmonary, nephrology/ GI recommendations. Plan to start tube feeding Discussed with staff Problems: Consultation Date/Type/Reason Admit Date/Time Jan 04, 2017 at 19:10 Initial Consult Date 01/11/17 Type of Consultation: ID Referring Provider: YING CASTAÑEDA Exam/Review of Systems Vital Signs Vitals Vital Signs Date Time Temp Pulse Resp B/P Pulse Ox O2 Delivery O2 Flow Rate FiO2 01/18/17 08:00 117 01/18/17 07:30 26 119/75 100 01/18/17 05:00 Mechanical Ventilator 01/18/17 04:50 30 01/18/17 04:00 98.9 Intake and Output 01/17/17 01/17/17 01/18/17 15:00 23:00 07:00 Intake Total 1913.0 ml 1149.5 ml 495.0 ml Output Total 4910 ml 880 ml 535 ml Balance -2997.0 ml 269.5 ml -40.0 ml Results Result Diagram: 01/18/17 0325 01/18/17 0325 Results 24 hrs Laboratory Tests Test 01/17/17 13:07 01/17/17 16:50 01/17/17 18:35 01/17/17 21:05 Bedside Glucose 112 122 147 Sodium Level 149 H Potassium Level 3.3 L Chloride Level 109 Carbon Dioxide Level 24 Anion Gap 19 H Blood Urea Nitrogen 57 H Creatinine 2.51 H Glucose Level 108 Calcium Level 7.3 L Test 01/18/17 00:44 01/18/17 00:46 01/18/17 01:00 01/18/17 03:25 Bedside Glucose 84 98 Sodium Level 148 H 149 H Potassium Level 5.4 #H 3.6 Chloride Level 113 H 112 H Carbon Dioxide Level 23 22 Anion Gap 17 H 19 H Blood Urea Nitrogen 62 H 63 H Creatinine 2.82 H 2.81 H Glucose Level 117 117 Calcium Level 7.5 L 7.5 L Total Bilirubin 0.9 Direct Bilirubin 0.60 #H Indirect Bilirubin 0.3 Aspartate Amino Transf (AST/SGOT) 233 H Alanine Aminotransferase (ALT/SGPT) 58 Alkaline Phosphatase 468 #H Total Protein 6.8 Albumin 2.6 L Globulin 4.20 H Albumin/Globulin Ratio 0.61 White Blood Count 22.8 H Red Blood Count 3.01 L Hemoglobin 9.1 L Hematocrit 27.8 L Mean Corpuscular Volume 92.4 Mean Corpuscular Hemoglobin 30.2 Mean Corpuscular Hemoglobin Concent 32.7 Red Cell Distribution Width 16.4 H Platelet Count 430 #H Mean Platelet Volume 11.2 H Neutrophils % 77.8 H Lymphocytes % 7.2 L Monocytes % 4.8 Eosinophils % 0.4 Basophils % 0.5 Nucleated Red Blood Cells % 0.0 Neutrophils # 17.7 H Lymphocytes # 1.6 Monocytes # 1.1 H Eosinophils # 0.1 Basophils # 0.1 Nucleated Red Blood Cells # 0.0 Phosphorus Level 3.5 Test 01/18/17 05:12 01/18/17 07:00 01/18/17 09:18 Bedside Glucose 108 119 Blood Gas Specimen Source Blood arterial Arterial Blood Date Drawn 01/18/2017 7:20:01 AM Arterial Blood pH (Temp corrected) 7.479 H Arterial Blood pCO2 (Temp correct) 29.9 L Arterial Blood pO2 (Temp corrected) 75.9 L Arterial Blood HCO3 21.7 L Arterial Blood Base Excess -1.1 Arterial Blood Oxygen Saturation 95.2 Rashad Test ACCEPTAB Arterial Blood Gas Puncture Site Right Radial Arterial Blood Carboxyhemoglobin 0.3 Arterial Blood Methemoglobin 0.4 Blood Gas A-a O2 Differential 102.9 H Oxyhemoglobin Percent 94.5 Total Hemoglobin 10.6 L Blood Gas Temperature 37.0 Blood Gas Respiration Rate 26.0 Blood Gas Actual Respiration Rate 26 Blood Gas Modality VENT - AC FiO2 30.0 Blood Gas Tidal Volume 450.0 Blood Gas Low PEEP Setting 5.0 Blood Gas Notified Whom JLD Blood Gas Notified Time 01/18/2017 7:57:38 AM Medications Medications Current Medications Ondansetron HCl (Zofran Inj) 4 mg Q6H PRN IV NAUSEA AND/OR VOMITING; Start 01/04 at 19:30 Acetaminophen/ Hydrocodone Bitart ([place] (5/325)) 1 tab Q6H PRN PO MODERATE PAIN LEVEL 4-6; Start 01/04/17 at 19:30 Morphine Sulfate (morphine) 2 mg Q4H PRN IV SEVERE PAIN LEVEL 7-10 Last administered on 01/18/17 02:05; Admin Dose 2 MG; Start 01/04/17 at 19:30 Docusate Sodium (Colace) 100 mg Q12H PRN PO CONSTIPATION; Start 01/04/17 at 19: 30 Magnesium Hydroxide (Milk Of Mag) 30 ml DAILY PRN PO CONSTIPATION; Start at 19:30 Sodium Biphosphate/ Sodium Phosphate (Fleet Enema) 133 ml DAILY PRN [place] CONSTIPATION; Start 01/04/17 at 19:30 Lorazepam (Ativan) 0.5 mg Q6H PRN IV ANXIETY Last administered on 01/16/17 18: 28; Admin Dose 0.5 MG; Start 01/04/17 at 19:30 Hydralazine HCl (Apresoline) 10 mg Q6H PRN IV ELEVATED BLOOD PRESSURE; Start at 19:30 Nitroglycerin (Nitroglycerin (Sl Tab) 0.4 Mg) 1 tab Q5M PRN SL ANGINA; Start at 19:30 Phenobarbital (Luminal) 64.8 mg BID PO Last administered on 01/04/17 23:45; Admin Dose 64.8 MG; Start 01/04/17 at 21:00; Status Future Hold Topiramate (Topamax) 200 mg BID PO ; Start 01/05/17 at 21:00; Status Future Hold Miscellaneous Information 1 ea NOTE XX ; Start 01/04/17 at 19:30 Glucose (Glutose) 15 gm Q15M PRN PO DECREASED GLUCOSE; Start 01/04/17 at 19:30 Glucose (Glutose) 22.5 gm Q15M PRN PO DECREASED GLUCOSE; Start 01/04/17 at 19:30 Dextrose (D50w Syringe) 25 ml Q15M PRN IV DECREASED GLUCOSE Last administered on 01/08/17 05:36; Admin Dose 25 ML; Start 01/04/17 at 19:30 Dextrose (D50w Syringe) 50 ml Q15M PRN IV DECREASED GLUCOSE; Start 01/04/17 at 19:30 Glucagon (Glucagen) 1 mg Q15M PRN IM DECREASED GLUCOSE; Start 01/04/17 at 19:30 Glucose (Glutose) 15 gm Q15M PRN BUCCAL DECREASED GLUCOSE; Start 01/04/17 at 19: 30 Phenytoin (Dilantin Susp Cup) 100 mg TID PO Last administered on 01/04/17 23:44 ; Admin Dose 100 MG; Start 01/04/17 at 21:50; Status Future Hold Clonazepam 0.5 mg 0.5 mg Q8H PO Last administered on 01/04/17 23:45; Admin Dose 0.5 MG; Start 01/04/17 at 23:00; Status Future Hold Norepinephrine 16 mg/Dextrose 500 ml @ 1.87 mls/hr TITRATE IV Last administered on 01/07/17 00:23; Admin Dose 15 MLS/HR; Start 01/05/17 at 00:30 Fentanyl 100 ml @ 2.5 mls/hr TITRATE IV Last administered on 01/18/17 01:16; Admin Dose 10 MLS/HR; Start 01/05/17 at 08:39 Midazolam HCl 50 ml @ 1 mls/hr TITRATE IV Last administered on 01/18/17 07:11 ; Admin Dose 10 MLS/HR; Start 01/05/17 at 08:41 Levetiracetam 100 ml @ 400 mls/hr Q12 IVPB Last administered on 01/18/17 09: 29; Admin Dose 400 MLS/HR; Start 01/05/17 at 11:30 Vasopressin 60 unit/Dextrose 60 ml @ 1.2 mls/hr Q12H IV Last administered on 22:32; Admin Dose 2.4 MLS/HR; Start 01/05/17 at 17:30 Epinephrine 4 mg/ Sodium Chloride 250 ml @ 0 mls/hr TITRATE IV ; Start 01/05/17 at 18:30 Phenylephrine HCl/ Dextrose (Robert-Syneph/D5W) 500 ml @ 18.75 mls/ hr TITRATE IV Last administered on 01/07/17 23:21; Admin Dose 26.25 MLS/HR; Start 01/05/17 at 20:30 Acetaminophen (Tylenol Liquid) 650 mg Q4H PRN NGT PAIN AND OR ELEVATED TEMP Last administered on 01/17/17 18:40; Admin Dose 650 MG; Start 01/06/17 at 04:30 Insulin Glargine 10 unit 10 unit DAILY SC Last administered on 01/07/17 08:19; Admin Dose 10 UNIT; Start 01/06/17 at 14:00; Status Future Hold Acetaminophen (Ofirmev 1000mg/ 100ml Iv) 100 ml @ 400 mls/hr Q6H PRN IVPB FEVER Last administered on 01/16/17 11:35; Admin Dose 400 MLS/HR; Start at 06:30 IV Flush (NS 10 ml) 10 ml PRN PRN IV IV PROTOCOL; Start 01/10/17 at 11:30 Amiodarone HCl (Cordarone) 200 mg BID GTB Last administered on 01/18/17 09:21 ; Admin Dose 200 MG; Start 01/11/17 at 12:00 Diagnostic Test (Pha) (Accu-Chek) 1 ea Q4H XX Last administered on 01/18/17 09 :23; Admin Dose 1 EA; Start 01/11/17 at 17:00 Epoetin Mina (Epogen (Esrd)) 10,000 units MoWeFr@17 SC Last administered on 22:44; Admin Dose 10,000 UNITS; Start 01/13/17 at 17:00 Insulin Aspart (Adult SC Insulin - Moder... Q4 SC Last administered on 21:08; Admin Dose 2 UNIT; Start 01/13/17 at 09:00 Meropenem/Sodium Chloride 50 ml @ 200 mls/hr Q12H IVPB Last administered on 09:29; Admin Dose 200 MLS/HR; Start 01/13/17 at 10:00 Pantoprazole 80 mg/Sodium Chloride 100 ml @ 10 mls/hr Q10H IV Last administered on 01/18/17 09:29; Admin Dose 10 MLS/HR; Start 01/14/17 at 06:00 Octreotide Acetate 500 mcg/ Sodium Chloride 50 ml @ 2.5 mls/hr Q20H IV Last administered on 01/18/17 09:29; Admin Dose 2.5 MLS/HR; Start 01/14/17 at 06:30 Vancomycin HCl (Vancocin) 250 ml @ 125 mls/hr Q72H IVPB Last administered on 05:58; Admin Dose 125 MLS/HR; Start 01/16/17 at 06:00 Metoprolol Tartrate (Lopressor) 25 mg BID PO Last administered on 01/18/17 09: 21; Admin Dose 25 MG; Start 01/15/17 at 15:00 Al Hydrox/Mg Hydrox/ Simethicone 30 ml 30 ml Q4 GTB Last administered on 09:20; Admin Dose 30 ML; Start 01/15/17 at 17:00 Caspofungin 50 mg/ Sodium Chloride 250 ml @ 250 mls/hr Q24H IVPB Last administered on 01/17/17 15:30; Admin Dose 250 MLS/HR; Start 01/17/17 at 14:30 Potassium Chloride 50 ml @ 50 mls/hr Q1H IVPB Last administered on 01/18/17 09 :41; Admin Dose 50 MLS/HR; Start 01/18/17 at 08:30; Stop 01/18/17 at 11:29 Dextrose (D5W) 1,000 ml @ 150 mls/hr Q6H40M IV Last administered on 01/18/17t 09:32; Admin Dose 150 MLS/HR; Start 01/18/17 at 08:30 Metoclopramide HCl (Reglan) 10 mg Q6 IV ; Start 01/18/17 at 12:00 MIKE TURCIOS NP Jan 18, 2017 10:44
--- NOTE | 2017-01-18 11:13 | CONS ---
Date/Time of Note Date/Time of Note DATE: 01/18/17 TIME: 11:11 Consult Date/Type/Reason Admit Date/Time Jan 04, 2017 at 19:10 Initial Consult Date 01/05/17 Type of Consultation: Pulmonary ICU Ordering Provider: YING CASTAÑEDA Subjective Status post placement of jejunostomy tube Awake alert. Failed CPAP trial yesterday. Objective Vital Signs Date Time Temp Pulse Resp B/P Pulse Ox O2 Delivery O2 Flow Rate FiO2 01/18/17 08:00 117 01/18/17 07:30 26 119/75 100 01/18/17 05:00 Mechanical Ventilator 01/18/17 04:50 30 01/18/17 04:00 98.9 Intake and Output 01/17/17 01/17/17 01/18/17 14:59 22:59 06:59 Intake Total 1789.5 ml 1210.5 ml 627.5 ml Output Total 5050 ml 890 ml 585 ml Balance -3260.5 ml 320.5 ml 42.5 ml Exam PHYSICAL EXAMINATION GENERAL: Elderly [place] lady orally intubated appears comfortable at rest VITAL SIGNS: see below. HEENT: Pupils equal, round, and reactive to light. CARDIAC: S1, S2, 1/6 systolic ejection murmur CHEST: Diminished air entry bilaterally. Rales both lung bases ABDOMEN: Mildly distended. Bowel sounds present no guarding or rebound EXTREMITIES: No cyanosis, clubbing edema +1 NEUROLOGIC: Generalized weakness Results/Medications Result Diagram: 01/18/17 0325 01/18/17 0325 Results 24 hrs Laboratory Tests Test 01/17/17 13:07 01/17/17 16:50 01/17/17 18:35 01/17/17 21:05 Bedside Glucose 112 122 147 Sodium Level 149 H Potassium Level 3.3 L Chloride Level 109 Carbon Dioxide Level 24 Anion Gap 19 H Blood Urea Nitrogen 57 H Creatinine 2.51 H Glucose Level 108 Calcium Level 7.3 L Test 01/18/17 00:44 01/18/17 00:46 01/18/17 01:00 01/18/17 03:25 Bedside Glucose 84 98 Sodium Level 148 H 149 H Potassium Level 5.4 #H 3.6 Chloride Level 113 H 112 H Carbon Dioxide Level 23 22 Anion Gap 17 H 19 H Blood Urea Nitrogen 62 H 63 H Creatinine 2.82 H 2.81 H Glucose Level 117 117 Calcium Level 7.5 L 7.5 L Total Bilirubin 0.9 Direct Bilirubin 0.60 #H Indirect Bilirubin 0.3 Aspartate Amino Transf (AST/SGOT) 233 H Alanine Aminotransferase (ALT/SGPT) 58 Alkaline Phosphatase 468 #H Total Protein 6.8 Albumin 2.6 L Globulin 4.20 H Albumin/Globulin Ratio 0.61 White Blood Count 22.8 H Red Blood Count 3.01 L Hemoglobin 9.1 L Hematocrit 27.8 L Mean Corpuscular Volume 92.4 Mean Corpuscular Hemoglobin 30.2 Mean Corpuscular Hemoglobin Concent 32.7 Red Cell Distribution Width 16.4 H Platelet Count 430 #H Mean Platelet Volume 11.2 H Neutrophils % 77.8 H Lymphocytes % 7.2 L Monocytes % 4.8 Eosinophils % 0.4 Basophils % 0.5 Nucleated Red Blood Cells % 0.0 Neutrophils # 17.7 H Lymphocytes # 1.6 Monocytes # 1.1 H Eosinophils # 0.1 Basophils # 0.1 Nucleated Red Blood Cells # 0.0 Phosphorus Level 3.5 Test 01/18/17 05:12 01/18/17 07:00 01/18/17 09:18 Bedside Glucose 108 119 Blood Gas Specimen Source Blood arterial Arterial Blood Date Drawn 01/18/2017 7:20:01 AM Arterial Blood pH (Temp corrected) 7.479 H Arterial Blood pCO2 (Temp correct) 29.9 L Arterial Blood pO2 (Temp corrected) 75.9 L Arterial Blood HCO3 21.7 L Arterial Blood Base Excess -1.1 Arterial Blood Oxygen Saturation 95.2 Rashad Test ACCEPTAB Arterial Blood Gas Puncture Site Right Radial Arterial Blood Carboxyhemoglobin 0.3 Arterial Blood Methemoglobin 0.4 Blood Gas A-a O2 Differential 102.9 H Oxyhemoglobin Percent 94.5 Total Hemoglobin 10.6 L Blood Gas Temperature 37.0 Blood Gas Respiration Rate 26.0 Blood Gas Actual Respiration Rate 26 Blood Gas Modality VENT - AC FiO2 30.0 Blood Gas Tidal Volume 450.0 Blood Gas Low PEEP Setting 5.0 Blood Gas Notified Whom JLD Blood Gas Notified Time 01/18/2017 7:57:38 AM Medications Current Medications Ondansetron HCl (Zofran Inj) 4 mg Q6H PRN IV NAUSEA AND/OR VOMITING; Start 01/04 at 19:30 Acetaminophen/ Hydrocodone Bitart ([place] (5/325)) 1 tab Q6H PRN PO MODERATE PAIN LEVEL 4-6; Start 01/04/17 at 19:30 Morphine Sulfate (morphine) 2 mg Q4H PRN IV SEVERE PAIN LEVEL 7-10 Last administered on 01/18/17 02:05; Admin Dose 2 MG; Start 01/04/17 at 19:30 Docusate Sodium (Colace) 100 mg Q12H PRN PO CONSTIPATION; Start 01/04/17 at 19: 30 Magnesium Hydroxide (Milk Of Mag) 30 ml DAILY PRN PO CONSTIPATION; Start at 19:30 Sodium Biphosphate/ Sodium Phosphate (Fleet Enema) 133 ml DAILY PRN NE CONSTIPATION; Start 01/04/17 at 19:30 Lorazepam (Ativan) 0.5 mg Q6H PRN IV ANXIETY Last administered on 01/16/17 18: 28; Admin Dose 0.5 MG; Start 01/04/17 at 19:30 Hydralazine HCl (Apresoline) 10 mg Q6H PRN IV ELEVATED BLOOD PRESSURE; Start at 19:30 Nitroglycerin (Nitroglycerin (Sl Tab) 0.4 Mg) 1 tab Q5M PRN SL ANGINA; Start at 19:30 Phenobarbital (Luminal) 64.8 mg BID PO Last administered on 01/04/17 23:45; Admin Dose 64.8 MG; Start 01/04/17 at 21:00; Status Future Hold Topiramate (Topamax) 200 mg BID PO ; Start 01/05/17 at 21:00; Status Future Hold Miscellaneous Information 1 ea NOTE XX ; Start 01/04/17 at 19:30 Glucose (Glutose) 15 gm Q15M PRN PO DECREASED GLUCOSE; Start 01/04/17 at 19:30 Glucose (Glutose) 22.5 gm Q15M PRN PO DECREASED GLUCOSE; Start 01/04/17 at 19:30 Dextrose (D50w Syringe) 25 ml Q15M PRN IV DECREASED GLUCOSE Last administered on 01/08/17 05:36; Admin Dose 25 ML; Start 01/04/17 at 19:30 Dextrose (D50w Syringe) 50 ml Q15M PRN IV DECREASED GLUCOSE; Start 01/04/17 at 19:30 Glucagon (Glucagen) 1 mg Q15M PRN IM DECREASED GLUCOSE; Start 01/04/17 at 19:30 Glucose (Glutose) 15 gm Q15M PRN BUCCAL DECREASED GLUCOSE; Start 01/04/17 at 19: 30 Phenytoin (Dilantin Susp Cup) 100 mg TID PO Last administered on 01/04/17 23:44 ; Admin Dose 100 MG; Start 01/04/17 at 21:50; Status Future Hold Clonazepam 0.5 mg 0.5 mg Q8H PO Last administered on 01/04/17 23:45; Admin Dose 0.5 MG; Start 01/04/17 at 23:00; Status Future Hold Norepinephrine 16 mg/Dextrose 500 ml @ 1.87 mls/hr TITRATE IV Last administered on 01/07/17 00:23; Admin Dose 15 MLS/HR; Start 01/05/17 at 00:30 Fentanyl 100 ml @ 2.5 mls/hr TITRATE IV Last administered on 01/18/17 01:16; Admin Dose 10 MLS/HR; Start 01/05/17 at 08:39 Midazolam HCl 50 ml @ 1 mls/hr TITRATE IV Last administered on 01/18/17 07:11 ; Admin Dose 10 MLS/HR; Start 01/05/17 at 08:41 Levetiracetam 100 ml @ 400 mls/hr Q12 IVPB Last administered on 01/18/17 09: 29; Admin Dose 400 MLS/HR; Start 01/05/17 at 11:30 Vasopressin 60 unit/Dextrose 60 ml @ 1.2 mls/hr Q12H IV Last administered on 22:32; Admin Dose 2.4 MLS/HR; Start 01/05/17 at 17:30 Epinephrine 4 mg/ Sodium Chloride 250 ml @ 0 mls/hr TITRATE IV ; Start 01/05/17 at 18:30 Phenylephrine HCl/ Dextrose (Robert-Syneph/D5W) 500 ml @ 18.75 mls/ hr TITRATE IV Last administered on 01/07/17 23:21; Admin Dose 26.25 MLS/HR; Start 01/05/17 at 20:30 Acetaminophen (Tylenol Liquid) 650 mg Q4H PRN NGT PAIN AND OR ELEVATED TEMP Last administered on 01/17/17 18:40; Admin Dose 650 MG; Start 01/06/17 at 04:30 Insulin Glargine 10 unit 10 unit DAILY SC Last administered on 01/07/17 08:19; Admin Dose 10 UNIT; Start 01/06/17 at 14:00; Status Future Hold Acetaminophen (Ofirmev 1000mg/ 100ml Iv) 100 ml @ 400 mls/hr Q6H PRN IVPB FEVER Last administered on 01/16/17 11:35; Admin Dose 400 MLS/HR; Start at 06:30 IV Flush (NS 10 ml) 10 ml PRN PRN IV IV PROTOCOL; Start 01/10/17 at 11:30 Amiodarone HCl (Cordarone) 200 mg BID GTB Last administered on 01/18/17 09:21 ; Admin Dose 200 MG; Start 01/11/17 at 12:00 Diagnostic Test (Pha) (Accu-Chek) 1 ea Q4H XX Last administered on 01/18/17 09 :23; Admin Dose 1 EA; Start 01/11/17 at 17:00 Epoetin Mina (Epogen (Esrd)) 10,000 units MoWeFr@17 SC Last administered on 22:44; Admin Dose 10,000 UNITS; Start 01/13/17 at 17:00 Insulin Aspart (Adult SC Insulin - Moder... Q4 SC Last administered on 21:08; Admin Dose 2 UNIT; Start 01/13/17 at 09:00 Meropenem/Sodium Chloride 50 ml @ 200 mls/hr Q12H IVPB Last administered on 09:29; Admin Dose 200 MLS/HR; Start 01/13/17 at 10:00 Pantoprazole 80 mg/Sodium Chloride 100 ml @ 10 mls/hr Q10H IV Last administered on 01/18/17 09:29; Admin Dose 10 MLS/HR; Start 01/14/17 at 06:00 Octreotide Acetate 500 mcg/ Sodium Chloride 50 ml @ 2.5 mls/hr Q20H IV Last administered on 01/18/17 09:29; Admin Dose 2.5 MLS/HR; Start 01/14/17 at 06:30 Vancomycin HCl (Vancocin) 250 ml @ 125 mls/hr Q72H IVPB Last administered on 05:58; Admin Dose 125 MLS/HR; Start 01/16/17 at 06:00 Metoprolol Tartrate (Lopressor) 25 mg BID PO Last administered on 01/18/17 09: 21; Admin Dose 25 MG; Start 01/15/17 at 15:00 Al Hydrox/Mg Hydrox/ Simethicone 30 ml 30 ml Q4 GTB Last administered on 09:20; Admin Dose 30 ML; Start 01/15/17 at 17:00 Caspofungin 50 mg/ Sodium Chloride 250 ml @ 250 mls/hr Q24H IVPB Last administered on 01/17/17 15:30; Admin Dose 250 MLS/HR; Start 01/17/17 at 14:30 Potassium Chloride 50 ml @ 50 mls/hr Q1H IVPB Last administered on 01/18/17 09 :41; Admin Dose 50 MLS/HR; Start 01/18/17 at 08:30; Stop 01/18/17 at 11:29 Dextrose (D5W) 1,000 ml @ 150 mls/hr Q6H40M IV Last administered on 01/18/17 09:32; Admin Dose 150 MLS/HR; Start 01/18/17 at 08:30 Metoclopramide HCl (Reglan) 10 mg Q6 IV ; Start 01/18/17 at 12:00 Assessment/Plan Chief Complaint/Hosp Course IMP: 1. Severe gallstone pancreatitis with septic shock, now slowly improving. Severe pancreatitis present on CT abdomen. Drop in hemoglobin. Questionable GI bleed. 2. Metabolic acidosis secondary to above and ARF 3. Renal failure likely ATN now requiring hemodialysis 4. 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 Status post thoracentesis right lung. Ongoing pulmonary edema and atelectasis on chest x-ray 5. History of seizure disorder 6. GI bleed status post endoscopy yesterday findings per chart. Consider stopping TPN and starting tube feeding jejunostomy tube RECS: 1. Hemodialysis today per nephrology 2. Continue mechanical ventilation, patient is unlikely to be weaned off mechanical ventilation in the short-term 3. Broad-spectrum antibiotic coverage 4. Nasogastric tube to suction will discuss with GI can restart feeding. 5. GI recommendations. Continue supportive care. 6. Continue DVT and GI prophylaxis 35 min cc time Discussed with staff at bedside. photography manager to arrange family conference. Problems: AMPARO VALERIO [facility], [facility] Jan 18, 2017 11:12
--- NOTE | 2017-01-18 11:58 | CONS ---
Date/Time of Note Date/Time of Note DATE: 01/18/17 TIME: 11:56 Assessment/Plan Assessment/Plan Additional Assessment/Plan Paroxysmal atrial fibrillation, currently sinus rhythm Severe sepsis Acute pancreatitis status post ERCP Preserved ejection fraction Respiratory failure, vent dependent Acute kidney injury now on hemodialysis Seizure disorder Psychiatric disorder Acute blood loss anemia GI bleed status post clipping -Patient currently with sinus tachycardia and still with paroxysmal episodes of atrial fibrillation. Would continue amiodarone to help maintain in sinus rhythm. No anticoagulation for atrial fibrillation given severe anemia and GI bleed. Fluid management as per our nephrology colleagues. Ideally, maintain potassium above 4.0 and magnesium above 2.0 to decrease arrhythmias. Consultation Date/Type/Reason Admit Date/Time Jan 04, 2017 at 19:10 Initial Consult Date 01/05/17 Type of Consultation: cv Referring Provider: YING CASTAÑEDA 24 HR Interval Summary Free Text/Dictation Patient seen and examined, patient with recurrent paroxysmal episodes of atrial fibrillation Exam/Review of Systems Vital Signs Vitals Vital Signs Date Time Temp Pulse Resp B/P Pulse Ox O2 Delivery O2 Flow Rate FiO2 01/18/17 08:00 117 01/18/17 08:00 30 01/18/17 07:30 26 119/75 100 01/18/17 05:00 Mechanical Ventilator 01/18/17 04:00 98.9 Intake and Output 01/17/17 01/17/17 01/18/17 15:00 23:00 07:00 Intake Total 1913.0 ml 1149.5 ml 495.0 ml Output Total 4910 ml 880 ml 535 ml Balance -2997.0 ml 269.5 ml -40.0 ml Exam Sedated and intubated, no apparent distress Head: normocephalic ENMT: intubated Respiratory: other (Coarse breath sounds bilaterally, no wheezing) Cardiovascular: other (S1-S2 heard), regular rate and rhythm Gastrointestinal: bowel sounds, non-tender, soft Extremities: edema Results Result Diagram: 01/18/17 0325 01/18/17 0325 Results 24 hrs Laboratory Tests Test 01/17/17 13:07 01/17/17 16:50 01/17/17 18:35 01/17/17 21:05 Bedside Glucose 112 122 147 Sodium Level 149 H Potassium Level 3.3 L Chloride Level 109 Carbon Dioxide Level 24 Anion Gap 19 H Blood Urea Nitrogen 57 H Creatinine 2.51 H Glucose Level 108 Calcium Level 7.3 L Test 01/18/17 00:44 01/18/17 00:46 01/18/17 01:00 01/18/17 03:25 Bedside Glucose 84 98 Sodium Level 148 H 149 H Potassium Level 5.4 #H 3.6 Chloride Level 113 H 112 H Carbon Dioxide Level 23 22 Anion Gap 17 H 19 H Blood Urea Nitrogen 62 H 63 H Creatinine 2.82 H 2.81 H Glucose Level 117 117 Calcium Level 7.5 L 7.5 L Total Bilirubin 0.9 Direct Bilirubin 0.60 #H Indirect Bilirubin 0.3 Aspartate Amino Transf (AST/SGOT) 233 H Alanine Aminotransferase (ALT/SGPT) 58 Alkaline Phosphatase 468 #H Total Protein 6.8 Albumin 2.6 L Globulin 4.20 H Albumin/Globulin Ratio 0.61 White Blood Count 22.8 H Red Blood Count 3.01 L Hemoglobin 9.1 L Hematocrit 27.8 L Mean Corpuscular Volume 92.4 Mean Corpuscular Hemoglobin 30.2 Mean Corpuscular Hemoglobin Concent 32.7 Red Cell Distribution Width 16.4 H Platelet Count 430 #H Mean Platelet Volume 11.2 H Neutrophils % 77.8 H Lymphocytes % 7.2 L Monocytes % 4.8 Eosinophils % 0.4 Basophils % 0.5 Nucleated Red Blood Cells % 0.0 Neutrophils # 17.7 H Lymphocytes # 1.6 Monocytes # 1.1 H Eosinophils # 0.1 Basophils # 0.1 Nucleated Red Blood Cells # 0.0 Phosphorus Level 3.5 Test 01/18/17 05:12 01/18/17 07:00 01/18/17 09:18 Bedside Glucose 108 119 Blood Gas Specimen Source Blood arterial Arterial Blood Date Drawn 01/18/2017 7:20:01 AM Arterial Blood pH (Temp corrected) 7.479 H Arterial Blood pCO2 (Temp correct) 29.9 L Arterial Blood pO2 (Temp corrected) 75.9 L Arterial Blood HCO3 21.7 L Arterial Blood Base Excess -1.1 Arterial Blood Oxygen Saturation 95.2 Rashad Test ACCEPTAB Arterial Blood Gas Puncture Site Right Radial Arterial Blood Carboxyhemoglobin 0.3 Arterial Blood Methemoglobin 0.4 Blood Gas A-a O2 Differential 102.9 H Oxyhemoglobin Percent 94.5 Total Hemoglobin 10.6 L Blood Gas Temperature 37.0 Blood Gas Respiration Rate 26.0 Blood Gas Actual Respiration Rate 26 Blood Gas Modality VENT - AC FiO2 30.0 Blood Gas Tidal Volume 450.0 Blood Gas Low PEEP Setting 5.0 Blood Gas Notified Whom JLD Blood Gas Notified Time 01/18/2017 7:57:38 AM Medications Medications Current Medications Ondansetron HCl (Zofran Inj) 4 mg Q6H PRN IV NAUSEA AND/OR VOMITING; Start 01/04 at 19:30 Acetaminophen/ Hydrocodone Bitart ([place] (5/325)) 1 tab Q6H PRN PO MODERATE PAIN LEVEL 4-6; Start 01/04/17 at 19:30 Morphine Sulfate (morphine) 2 mg Q4H PRN IV SEVERE PAIN LEVEL 7-10 Last administered on 01/18/17 02:05; Admin Dose 2 MG; Start 01/04/17 at 19:30 Docusate Sodium (Colace) 100 mg Q12H PRN PO CONSTIPATION; Start 01/04/17 at 19: 30 Magnesium Hydroxide (Milk Of Mag) 30 ml DAILY PRN PO CONSTIPATION; Start at 19:30 Sodium Biphosphate/ Sodium Phosphate (Fleet Enema) 133 ml DAILY PRN NE CONSTIPATION; Start 01/04/17 at 19:30 Lorazepam (Ativan) 0.5 mg Q6H PRN IV ANXIETY Last administered on 01/16/17 18: 28; Admin Dose 0.5 MG; Start 01/04/17 at 19:30 Hydralazine HCl (Apresoline) 10 mg Q6H PRN IV ELEVATED BLOOD PRESSURE; Start at 19:30 Nitroglycerin (Nitroglycerin (Sl Tab) 0.4 Mg) 1 tab Q5M PRN SL ANGINA; Start at 19:30 Phenobarbital (Luminal) 64.8 mg BID PO Last administered on 01/04/17 23:45; Admin Dose 64.8 MG; Start 01/04/17 at 21:00; Status Future Hold Topiramate (Topamax) 200 mg BID PO ; Start 01/05/17 at 21:00; Status Future Hold Miscellaneous Information 1 ea NOTE XX ; Start 01/04/17 at 19:30 Glucose (Glutose) 15 gm Q15M PRN PO DECREASED GLUCOSE; Start 01/04/17 at 19:30 Glucose (Glutose) 22.5 gm Q15M PRN PO DECREASED GLUCOSE; Start 01/04/17 at 19:30 Dextrose (D50w Syringe) 25 ml Q15M PRN IV DECREASED GLUCOSE Last administered on 01/08/17 05:36; Admin Dose 25 ML; Start 01/04/17 at 19:30 Dextrose (D50w Syringe) 50 ml Q15M PRN IV DECREASED GLUCOSE; Start 01/04/17 at 19:30 Glucagon (Glucagen) 1 mg Q15M PRN IM DECREASED GLUCOSE; Start 01/04/17 at 19:30 Glucose (Glutose) 15 gm Q15M PRN BUCCAL DECREASED GLUCOSE; Start 01/04/17 at 19: 30 Phenytoin (Dilantin Susp Cup) 100 mg TID PO Last administered on 01/04/17 23:44 ; Admin Dose 100 MG; Start 01/04/17 at 21:50; Status Future Hold Clonazepam 0.5 mg 0.5 mg Q8H PO Last administered on 01/04/17 23:45; Admin Dose 0.5 MG; Start 01/04/17 at 23:00; Status Future Hold Norepinephrine 16 mg/Dextrose 500 ml @ 1.87 mls/hr TITRATE IV Last administered on 01/07/17 00:23; Admin Dose 15 MLS/HR; Start 01/05/17 at 00:30 Fentanyl 100 ml @ 2.5 mls/hr TITRATE IV Last administered on 01/18/17 01:16; Admin Dose 10 MLS/HR; Start 01/05/17 at 08:39 Midazolam HCl 50 ml @ 1 mls/hr TITRATE IV Last administered on 01/18/17 07:11 ; Admin Dose 10 MLS/HR; Start 01/05/17 at 08:41 Levetiracetam 100 ml @ 400 mls/hr Q12 IVPB Last administered on 01/18/17 09: 29; Admin Dose 400 MLS/HR; Start 01/05/17 at 11:30 Vasopressin 60 unit/Dextrose 60 ml @ 1.2 mls/hr Q12H IV Last administered on 22:32; Admin Dose 2.4 MLS/HR; Start 01/05/17 at 17:30 Epinephrine 4 mg/ Sodium Chloride 250 ml @ 0 mls/hr TITRATE IV ; Start 01/05/17 at 18:30 Phenylephrine HCl/ Dextrose (Robert-Syneph/D5W) 500 ml @ 18.75 mls/ hr TITRATE IV Last administered on 01/07/17 23:21; Admin Dose 26.25 MLS/HR; Start 01/05/17 at 20:30 Acetaminophen (Tylenol Liquid) 650 mg Q4H PRN NGT PAIN AND OR ELEVATED TEMP Last administered on 01/17/17 18:40; Admin Dose 650 MG; Start 01/06/17 at 04:30 Insulin Glargine 10 unit 10 unit DAILY SC Last administered on 01/07/17 08:19; Admin Dose 10 UNIT; Start 01/06/17 at 14:00; Status Future Hold Acetaminophen (Ofirmev 1000mg/ 100ml Iv) 100 ml @ 400 mls/hr Q6H PRN IVPB FEVER Last administered on 01/16/17 11:35; Admin Dose 400 MLS/HR; Start at 06:30 IV Flush (NS 10 ml) 10 ml PRN PRN IV IV PROTOCOL; Start 01/10/17 at 11:30 Amiodarone HCl (Cordarone) 200 mg BID GTB Last administered on 01/18/17 09:21 ; Admin Dose 200 MG; Start 01/11/17 at 12:00 Diagnostic Test (Pha) (Accu-Chek) 1 ea Q4H XX Last administered on 01/18/17 09 :23; Admin Dose 1 EA; Start 01/11/17 at 17:00 Epoetin Mina (Epogen (Esrd)) 10,000 units MoWeFr@17 SC Last administered on 22:44; Admin Dose 10,000 UNITS; Start 01/13/17 at 17:00 Insulin Aspart (Adult SC Insulin - Moder... Q4 SC Last administered on 21:08; Admin Dose 2 UNIT; Start 01/13/17 at 09:00 Meropenem/Sodium Chloride 50 ml @ 200 mls/hr Q12H IVPB Last administered on 09:29; Admin Dose 200 MLS/HR; Start 01/13/17 at 10:00 Pantoprazole 80 mg/Sodium Chloride 100 ml @ 10 mls/hr Q10H IV Last administered on 01/18/17 09:29; Admin Dose 10 MLS/HR; Start 01/14/17 at 06:00 Octreotide Acetate 500 mcg/ Sodium Chloride 50 ml @ 2.5 mls/hr Q20H IV Last administered on 01/18/17 09:29; Admin Dose 2.5 MLS/HR; Start 01/14/17 at 06:30 Vancomycin HCl (Vancocin) 250 ml @ 125 mls/hr Q72H IVPB Last administered on 05:58; Admin Dose 125 MLS/HR; Start 01/16/17 at 06:00 Metoprolol Tartrate (Lopressor) 25 mg BID PO Last administered on 01/18/17 09: 21; Admin Dose 25 MG; Start 01/15/17 at 15:00 Al Hydrox/Mg Hydrox/ Simethicone 30 ml 30 ml Q4 GTB Last administered on 09:20; Admin Dose 30 ML; Start 01/15/17 at 17:00 Caspofungin 50 mg/ Sodium Chloride 250 ml @ 250 mls/hr Q24H IVPB Last administered on 01/17/17 15:30; Admin Dose 250 MLS/HR; Start 01/17/17 at 14:30 Dextrose (D5W) 1,000 ml @ 150 mls/hr Q6H40M IV Last administered on 01/18/17 09:32; Admin Dose 150 MLS/HR; Start 01/18/17 at 08:30 Metoclopramide HCl (Reglan) 10 mg Q6 IV ; Start 01/18/17 at 12:00 Vlad Leyva DO Jan 18, 2017 11:58
[2017-01-18] MEDS: METOCLOPRAMIDE 10 MG INJ IV SCH ×2 (12:00→18:00)
[2017-01-18] MEDS ORDERED: *CONTINUE SAME TPN IV ONE (14:30)
[2017-01-18] MEDS: CASPOFUNGIN 50 MG in SOD CHLORIDE 0.9% 250 ML IVPB SCH (15:11)
--- NOTE | 2017-01-18 16:27 | PN ---
Date/Time of Note Date/Time of Note DATE: 01/18/17 TIME: 16:24 Assessment/Plan VTE Prophylaxis VTE Prophylaxis Intervention: SCD's Lines/Catheters IV Catheter Type (from [facility]): kaya cath Assessment/Plan Chief Complaint/Hosp Course 1. Severe systemic shock with multiorgan failure secondary to severe pancreatitis superimposed by sepsis secondary to staph bacteremia, bilateral pneumonia, E. coli UTI -Improved 2. Severe gallstone pancreatitis * Status post ERCP with sphincterectomy and removal of common bile duct stones, placement of common bile duct stent done January 13, 2017 3. Probable GI bleed as well as abdominal distention 4. Acute respiratory failure secondary to #1 patient remains ventilator dependent 5. Acute kidney injury secondary to #1 now requiring hemodialysis 6. Persistent tachycardia likely secondary to #1 on amiodarone 7. Bilateral pneumonia with bilateral effusions R> L which is likely reactive from #2 * persistent despite right-sided thoracentesis January 13, 2017 8. Normocytic normochromic anemia: Worsening 9. History of seizure disorder on Keppra 10. Chronic debility on TPN 11. Persistent tachycardia: Plan: Continue ICU monitoring and vent support and sedation as indicated Continue Protonix and octreotide drips, continue to hold anticoagulation, follow -up H&H, follow GI plan Continue antibiotics per ID Continue TPN as well as gentle fluid hydration, patient will likely need a PEJ tube Appreciate cardiology input and management of tachycardia, patient is on amiodarone Closely monitor hemoglobin every 6 hours, transfuse as needed Continue Keppra for seizures Continue dialysis per renal Tachycardia is consistent with severe pancreatitis, Appreciate all consultants Further interventions per clinical course Prognosis remains guarded, family conference tomorrow to discuss PEG and trach Prophylaxis: SCDs/Protonix drip Problems: Subjective 24 Hr Interval Summary Subjective hx not possible: pt non-verbal Exam/Review of Systems Vital Signs Vitals Vital Signs Date Time Temp Pulse Resp B/P Pulse Ox O2 Delivery O2 Flow Rate FiO2 01/18/17 15:30 26 99/66 100 Mechanical Ventilator 01/18/17 15:10 108 30 01/18/17 12:00 98.9 Intake and Output 01/17/17 01/17/17 01/18/17 15:00 23:00 07:00 Intake Total 1913.0 ml 1149.5 ml 495.0 ml Output Total 4910 ml 880 ml 535 ml Balance -2997.0 ml 269.5 ml -40.0 ml Exam Constitutional: non-verbal ENMT: intubated Respiratory: clear to auscultation Cardiovascular: regular rate and rhythm Gastrointestinal: soft, No distended Musculoskeletal: nl extremities to inspection Results Result Diagram: 01/18/17 0325 01/18/17 0325 Results 24 hrs Laboratory Tests Test 01/17/17 16:50 01/17/17 18:35 01/17/17 21:05 01/18/17 00:44 Sodium Level 149 H Potassium Level 3.3 L Chloride Level 109 Carbon Dioxide Level 24 Anion Gap 19 H Blood Urea Nitrogen 57 H Creatinine 2.51 H Glucose Level 108 Calcium Level 7.3 L Bedside Glucose 122 147 84 Test 01/18/17 00:46 01/18/17 01:00 01/18/17 03:25 01/18/17 05:12 Bedside Glucose 98 108 Sodium Level 148 H 149 H Potassium Level 5.4 #H 3.6 Chloride Level 113 H 112 H Carbon Dioxide Level 23 22 Anion Gap 17 H 19 H Blood Urea Nitrogen 62 H 63 H Creatinine 2.82 H 2.81 H Glucose Level 117 117 Calcium Level 7.5 L 7.5 L Total Bilirubin 0.9 Direct Bilirubin 0.60 #H Indirect Bilirubin 0.3 Aspartate Amino Transf (AST/SGOT) 233 H Alanine Aminotransferase (ALT/SGPT) 58 Alkaline Phosphatase 468 #H Total Protein 6.8 Albumin 2.6 L Globulin 4.20 H Albumin/Globulin Ratio 0.61 White Blood Count 22.8 H Red Blood Count 3.01 L Hemoglobin 9.1 L Hematocrit 27.8 L Mean Corpuscular Volume 92.4 Mean Corpuscular Hemoglobin 30.2 Mean Corpuscular Hemoglobin Concent 32.7 Red Cell Distribution Width 16.4 H Platelet Count 430 #H Mean Platelet Volume 11.2 H Neutrophils % 77.8 H Lymphocytes % 7.2 L Monocytes % 4.8 Eosinophils % 0.4 Basophils % 0.5 Nucleated Red Blood Cells % 0.0 Neutrophils # 17.7 H Lymphocytes # 1.6 Monocytes # 1.1 H Eosinophils # 0.1 Basophils # 0.1 Nucleated Red Blood Cells # 0.0 Phosphorus Level 3.5 Test 01/18/17 07:00 01/18/17 09:18 01/18/17 12:05 01/18/17 14:12 Blood Gas Specimen Source Blood arterial Arterial Blood Date Drawn 01/18/2017 7:20:01 AM Arterial Blood pH (Temp corrected) 7.479 H Arterial Blood pCO2 (Temp correct) 29.9 L Arterial Blood pO2 (Temp corrected) 75.9 L Arterial Blood HCO3 21.7 L Arterial Blood Base Excess -1.1 Arterial Blood Oxygen Saturation 95.2 Rashad Test ACCEPTAB Arterial Blood Gas Puncture Site Right Radial Arterial Blood Carboxyhemoglobin 0.3 Arterial Blood Methemoglobin 0.4 Blood Gas A-a O2 Differential 102.9 H Oxyhemoglobin Percent 94.5 Total Hemoglobin 10.6 L Blood Gas Temperature 37.0 Blood Gas Respiration Rate 26.0 Blood Gas Actual Respiration Rate 26 Blood Gas Modality VENT - AC FiO2 30.0 Blood Gas Tidal Volume 450.0 Blood Gas Low PEEP Setting 5.0 Blood Gas Notified Whom JLD Blood Gas Notified Time 01/18/2017 7:57:38 AM Bedside Glucose 119 106 Lab Scanned Report REFERENCE LAB Medications Medications Current Medications Ondansetron HCl (Zofran Inj) 4 mg Q6H PRN IV NAUSEA AND/OR VOMITING; Start 01/04 at 19:30 Acetaminophen/ Hydrocodone Bitart (Christoval (5/325)) 1 tab Q6H PRN PO MODERATE PAIN LEVEL 4-6; Start 01/04/17 at 19:30 Morphine Sulfate (morphine) 2 mg Q4H PRN IV SEVERE PAIN LEVEL 7-10 Last administered on 01/18/17 02:05; Admin Dose 2 MG; Start 01/04/17 at 19:30 Docusate Sodium (Colace) 100 mg Q12H PRN PO CONSTIPATION; Start 01/04/17 at 19: 30 Magnesium Hydroxide (Milk Of Mag) 30 ml DAILY PRN PO CONSTIPATION; Start at 19:30 Sodium Biphosphate/ Sodium Phosphate (Fleet Enema) 133 ml DAILY PRN [place] CONSTIPATION; Start 01/04/17 at 19:30 Lorazepam (Ativan) 0.5 mg Q6H PRN IV ANXIETY Last administered on 01/16/17 18: 28; Admin Dose 0.5 MG; Start 01/04/17 at 19:30 Hydralazine HCl (Apresoline) 10 mg Q6H PRN IV ELEVATED BLOOD PRESSURE; Start at 19:30 Nitroglycerin (Nitroglycerin (Sl Tab) 0.4 Mg) 1 tab Q5M PRN SL ANGINA; Start at 19:30 Phenobarbital (Luminal) 64.8 mg BID PO Last administered on 01/04/17 23:45; Admin Dose 64.8 MG; Start 01/04/17 at 21:00; Status Future Hold Topiramate (Topamax) 200 mg BID PO ; Start 01/05/17 at 21:00; Status Future Hold Miscellaneous Information 1 ea NOTE XX ; Start 01/04/17 at 19:30 Glucose (Glutose) 15 gm Q15M PRN PO DECREASED GLUCOSE; Start 01/04/17 at 19:30 Glucose (Glutose) 22.5 gm Q15M PRN PO DECREASED GLUCOSE; Start 01/04/17 at 19:30 Dextrose (D50w Syringe) 25 ml Q15M PRN IV DECREASED GLUCOSE Last administered on 01/08/17 05:36; Admin Dose 25 ML; Start 01/04/17 at 19:30 Dextrose (D50w Syringe) 50 ml Q15M PRN IV DECREASED GLUCOSE; Start 01/04/17 at 19:30 Glucagon (Glucagen) 1 mg Q15M PRN IM DECREASED GLUCOSE; Start 01/04/17 at 19:30 Glucose (Glutose) 15 gm Q15M PRN BUCCAL DECREASED GLUCOSE; Start 01/04/17 at 19: 30 Phenytoin (Dilantin Susp Cup) 100 mg TID PO Last administered on 01/04/17 23:44 ; Admin Dose 100 MG; Start 01/04/17 at 21:50; Status Future Hold Clonazepam 0.5 mg 0.5 mg Q8H PO Last administered on 01/04/17 23:45; Admin Dose 0.5 MG; Start 01/04/17 at 23:00; Status Future Hold Norepinephrine 16 mg/Dextrose 500 ml @ 1.87 mls/hr TITRATE IV Last administered on 01/07/17 00:23; Admin Dose 15 MLS/HR; Start 01/05/17 at 00:30 Fentanyl 100 ml @ 2.5 mls/hr TITRATE IV Last administered on 01/18/17 01:16; Admin Dose 10 MLS/HR; Start 01/05/17 at 08:39 Midazolam HCl 50 ml @ 1 mls/hr TITRATE IV Last administered on 01/18/17 15:12 ; Admin Dose 8 MLS/HR; Start 01/05/17 at 08:41 Levetiracetam 100 ml @ 400 mls/hr Q12 IVPB Last administered on 01/18/17 09: 29; Admin Dose 400 MLS/HR; Start 01/05/17 at 11:30 Vasopressin 60 unit/Dextrose 60 ml @ 1.2 mls/hr Q12H IV Last administered on 22:32; Admin Dose 2.4 MLS/HR; Start 01/05/17 at 17:30 Epinephrine 4 mg/ Sodium Chloride 250 ml @ 0 mls/hr TITRATE IV ; Start 01/05/17 at 18:30 Phenylephrine HCl/ Dextrose (Robert-Syneph/D5W) 500 ml @ 18.75 mls/ hr TITRATE IV Last administered on 01/07/17 23:21; Admin Dose 26.25 MLS/HR; Start 01/05/17 at 20:30 Acetaminophen (Tylenol Liquid) 650 mg Q4H PRN NGT PAIN AND OR ELEVATED TEMP Last administered on 01/17/17 18:40; Admin Dose 650 MG; Start 01/06/17 at 04:30 Insulin Glargine 10 unit 10 unit DAILY SC Last administered on 01/07/17 08:19; Admin Dose 10 UNIT; Start 01/06/17 at 14:00; Status Future Hold Acetaminophen (Ofirmev 1000mg/ 100ml Iv) 100 ml @ 400 mls/hr Q6H PRN IVPB FEVER Last administered on 01/16/17 11:35; Admin Dose 400 MLS/HR; Start at 06:30 IV Flush (NS 10 ml) 10 ml PRN PRN IV IV PROTOCOL; Start 01/10/17 at 11:30 Amiodarone HCl (Cordarone) 200 mg BID GTB Last administered on 01/18/17 09:21 ; Admin Dose 200 MG; Start 01/11/17 at 12:00 Diagnostic Test (Pha) (Accu-Chek) 1 ea Q4H XX Last administered on 01/18/17 13 :37; Admin Dose 1 EA; Start 01/11/17 at 17:00 Epoetin Mina (Epogen (Esrd)) 10,000 units MoWeFr@17 SC Last administered on 22:44; Admin Dose 10,000 UNITS; Start 01/13/17 at 17:00 Insulin Aspart (Adult SC Insulin - Moder... Q4 SC Last administered on 21:08; Admin Dose 2 UNIT; Start 01/13/17 at 09:00 Meropenem/Sodium Chloride 50 ml @ 200 mls/hr Q12H IVPB Last administered on 09:29; Admin Dose 200 MLS/HR; Start 01/13/17 at 10:00 Pantoprazole 80 mg/Sodium Chloride 100 ml @ 10 mls/hr Q10H IV Last administered on 01/18/17 09:29; Admin Dose 10 MLS/HR; Start 01/14/17 at 06:00 Octreotide Acetate 500 mcg/ Sodium Chloride 50 ml @ 2.5 mls/hr Q20H IV Last administered on 01/18/17 09:29; Admin Dose 2.5 MLS/HR; Start 01/14/17 at 06:30 Vancomycin HCl (Vancocin) 250 ml @ 125 mls/hr Q72H IVPB Last administered on 05:58; Admin Dose 125 MLS/HR; Start 01/16/17 at 06:00 Metoprolol Tartrate (Lopressor) 25 mg BID PO Last administered on 01/18/17 09: 21; Admin Dose 25 MG; Start 01/15/17 at 15:00 Al Hydrox/Mg Hydrox/ Simethicone 30 ml 30 ml Q4 GTB Last administered on 13:00; Admin Dose 30 ML; Start 01/15/17 at 17:00 Caspofungin 50 mg/ Sodium Chloride 250 ml @ 250 mls/hr Q24H IVPB Last administered on 01/18/17 15:11; Admin Dose 250 MLS/HR; Start 01/17/17 at 14:30 Dextrose (D5W) 1,000 ml @ 150 mls/hr Q6H40M IV Last administered on 01/18/17 09:32; Admin Dose 150 MLS/HR; Start 01/18/17 at 08:30 Metoclopramide HCl (Reglan) 10 mg Q6 IV ; Start 01/18/17 at 12:00 YING CASTAÑEDA Jan 18, 2017 16:27
[2017-01-18] MEDS: EPOETIN 10000 UNITS/1 ML INJ (ESRD) SC SCH (18:30)
--- NOTE | 2017-01-18 22:35 | RADRPT ---
PROCEDURE: Portable chest x-ray. CLINICAL INDICATION: Nasogastric tube placement. TECHNIQUE: Portable AP view of the chest. COMPARISON: 01/18/2017. FINDINGS: An endotracheal tube terminates approximately 3.8 cm above the kelly. A nasogastric tube terminates in the stomach . A right central venous catheter terminates in the SVC. The superiormost left lung apex is not imaged. There is minimal bibasilar atelectasis. The cardiac silhouette is not enlarged . No definite pleural effusion is seen. There is no pneumothorax. There is a vagal stimulator dev ice in the left chest. IMPRESSION: 1. Endotracheal tube tip approximately 3.8 cm above the kelly. 2. Nasogastric tube tip in the stomach. 3. Right central venous catheter tip in the SVC. RPTAT: HTAR .Kofi Morelos MD, Date Time Electronically viewed and signed by .Kofi Morelos MD, on 01/18/2017 22:34 .R/
[2017-01-19] VITALS (63 sets, daily range): BP systolic 79–126; BP diastolic 52–81; PULSE 88–112; RESP 21–27
[2017-01-19] MEDS: AL HYDROX/MG HYDROX/SIMETH 30 ML CUP GTB SCH ×6 (00:29→22:16)
[2017-01-19] MEDS: PANTOPRAZOLE IV 80 MG in SOD CHLORIDE 0.9% 100 ML IV SCH ×4 (00:30→23:18)
[2017-01-19] MEDS: METOCLOPRAMIDE 10 MG INJ IV SCH ×4 (00:30→17:38)
[2017-01-19] MEDS: Insulin NOVOLOG SS MODERATE Algorithm(NPO/TPN/ENTERAL FEEDS) SC SCH ×6 (01:00→21:00)
[2017-01-19] MEDS: ACCU-CHEK XX SCH ×6 (01:45→22:00)
[2017-01-19] MEDS: MIDAZOLAM (DRIP) 50 mg/50 mL 50 ML IV SCH ×4 (02:52→23:16)
[2017-01-19] MEDS: ACETAMINOPHEN 650MG/20.3ML CUP NGT PRN ×2 (02:52→17:32)
[2017-01-19] MEDS: FENTAnyl (DRIP) 1000 mcg/100mL 100 ML IV SCH ×4 (03:05→20:23)
[2017-01-19] MEDS: DEXTROSE 5% 1,000 ML IV SCH ×3 (04:30→17:38)
[2017-01-19] MEDS: VASOPRESSIN 60 UNIT in DEXTROSE 5% 57 ML IV SCH ×2 (05:30→17:30)
[2017-01-19 05:31] LABS: ADD SCAN DIFF NO
[2017-01-19 05:33] LABS: ABNORMAL IP MESSAGE 1; HEMATOCRIT 25.4 % (37.0-47.0); HEMOGLOBIN 8.1 g/dl (12.0-16.0); MEAN CORPUSCULAR HEMOGLOBIN 30.1 pg (29.0-33.0); MEAN CORPUSCULAR HGB CONC 31.9 g/dl (32.0-37.0); MEAN CORPUSCULAR VOLUME 94.4 fl (82.0-101.0); MEAN PLATELET VOLUME 10.8 fl (7.4-10.4); PLATELET COUNT 465 10^3/UL (140-415); RED BLOOD COUNT 2.69 10^6/ul (4.20-5.40); RED CELL DISTRIBUTION WIDTH 16.5 % (11.5-14.5); WHITE BLOOD COUNT 19.8 10^3/ul (4.8-10.8)
[2017-01-19] MEDS: OCTREOTIDE 500 MCG in SOD CHLORIDE 0.9% 49 ML IV SCH ×5 (06:01→23:18)
[2017-01-19] MEDS: VANCOMYCIN 1 GM in NS 250 ML IVPB SCH (06:01)
[2017-01-19 06:11] LABS: CALCIUM 7.7 mg/dl (8.4-10.2); CREATININE 3.08 mg/dl (0.44-1.00); PHOSPHORUS 3.8 mg/dl (2.5-4.9); POTASSIUM 3.6 mmol/L (3.5-5.1)
--- NOTE | 2017-01-19 07:50 | CONS ---
Date/Time of Note Date/Time of Note DATE: 01/19/17 TIME: 07:46 Assessment/Plan Assessment/Plan Chief Complaint/Hosp Course Admitted with abdominal pain and evidence of severe pancreatitis in otherwise good health. Problems: Additional Assessment/Plan 1. ARF, to have HD today, sec to hypotension and pancreatits 2. Vol overload much improved, cxr noted. 3. Anemia, will not transfuse today, epo continued 4. Femoral cath to be replaced today 5. Trach and G-tube being discussed with family. 6. Pancreatitis slowly resolving 7. Hypernatremia improved, should resolve with HD and Continued D5W Consultation Date/Type/Reason Admit Date/Time Jan 04, 2017 at 19:10 Initial Consult Date 01/05/17 Type of Consultation: cv Referring Provider: YING CASTAÑEDA 24 HR Interval Summary Subjective hx not possible: other (intubated, responds to simple commands, alert) Exam/Review of Systems Vital Signs Vitals Vital Signs Date Time Temp Pulse Resp B/P Pulse Ox O2 Delivery O2 Flow Rate FiO2 01/19/17 06:00 23 95/66 100 Mechanical Ventilator 01/19/17 05:56 92 30 01/19/17 04:00 101.0 Intake and Output 01/18/17 01/18/17 01/19/17 15:00 23:00 07:00 Intake Total 1897.5 ml 1280.0 ml 627.5 ml Output Total 1020 ml 710 ml Balance 877.5 ml 570.0 ml 627.5 ml Exam Neck: No jvd Respiratory: clear to auscultation, diminished breath sounds Cardiovascular: regular rate and rhythm Gastrointestinal: soft Extremities: No edema (1+ extrem and sacral) Results Result Diagram: 01/19/17 0500 01/19/17 0500 Results 24 hrs Laboratory Tests Test 01/18/17 09:18 01/18/17 12:05 01/18/17 14:12 01/18/17 18:36 Bedside Glucose 119 106 76 Lab Scanned Report REFERENCE LAB Test 01/18/17 19:11 01/18/17 21:48 01/19/17 01:45 01/19/17 05:00 Bedside Glucose 111 97 116 White Blood Count 19.8 H Red Blood Count 2.69 L Hemoglobin 8.1 L Hematocrit 25.4 L Mean Corpuscular Volume 94.4 Mean Corpuscular Hemoglobin 30.1 Mean Corpuscular Hemoglobin Concent 31.9 L Red Cell Distribution Width 16.5 H Platelet Count 465 H Mean Platelet Volume 10.8 H Neutrophils % Lymphocytes % Monocytes % Neutrophils # Lymphocytes # Monocytes # Sodium Level 147 H Potassium Level 3.6 Chloride Level 112 H Carbon Dioxide Level 22 Anion Gap 17 H Blood Urea Nitrogen 71 H Creatinine 3.08 H Glucose Level 115 Calcium Level 7.7 L Phosphorus Level 3.8 Magnesium Level 2.1 Test 01/19/17 05:55 Bedside Glucose 116 Medications Medications Current Medications Ondansetron HCl (Zofran Inj) 4 mg Q6H PRN IV NAUSEA AND/OR VOMITING; Start 01/04 at 19:30 Acetaminophen/ Hydrocodone Bitart (Bow (5/325)) 1 tab Q6H PRN PO MODERATE PAIN LEVEL 4-6; Start 01/04/17 at 19:30 Morphine Sulfate (morphine) 2 mg Q4H PRN IV SEVERE PAIN LEVEL 7-10 Last administered on 01/18/17 02:05; Admin Dose 2 MG; Start 01/04/17 at 19:30 Docusate Sodium (Colace) 100 mg Q12H PRN PO CONSTIPATION; Start 01/04/17 at 19: 30 Magnesium Hydroxide (Milk Of Mag) 30 ml DAILY PRN PO CONSTIPATION; Start at 19:30 Sodium Biphosphate/ Sodium Phosphate (Fleet Enema) 133 ml DAILY PRN [place] CONSTIPATION; Start 01/04/17 at 19:30 Lorazepam (Ativan) 0.5 mg Q6H PRN IV ANXIETY Last administered on 01/16/17 18: 28; Admin Dose 0.5 MG; Start 01/04/17 at 19:30 Hydralazine HCl (Apresoline) 10 mg Q6H PRN IV ELEVATED BLOOD PRESSURE; Start at 19:30 Nitroglycerin (Nitroglycerin (Sl Tab) 0.4 Mg) 1 tab Q5M PRN SL ANGINA; Start at 19:30 Phenobarbital (Luminal) 64.8 mg BID PO Last administered on 01/04/17 23:45; Admin Dose 64.8 MG; Start 01/04/17 at 21:00; Status Future Hold Topiramate (Topamax) 200 mg BID PO ; Start 01/05/17 at 21:00; Status Future Hold Miscellaneous Information 1 ea NOTE XX ; Start 01/04/17 at 19:30 Glucose (Glutose) 15 gm Q15M PRN PO DECREASED GLUCOSE; Start 01/04/17 at 19:30 Glucose (Glutose) 22.5 gm Q15M PRN PO DECREASED GLUCOSE; Start 01/04/17 at 19:30 Dextrose (D50w Syringe) 25 ml Q15M PRN IV DECREASED GLUCOSE Last administered on 01/08/17 05:36; Admin Dose 25 ML; Start 01/04/17 at 19:30 Dextrose (D50w Syringe) 50 ml Q15M PRN IV DECREASED GLUCOSE; Start 01/04/17 at 19:30 Glucagon (Glucagen) 1 mg Q15M PRN IM DECREASED GLUCOSE; Start 01/04/17 at 19:30 Glucose (Glutose) 15 gm Q15M PRN BUCCAL DECREASED GLUCOSE; Start 01/04/17 at 19: 30 Phenytoin (Dilantin Susp Cup) 100 mg TID PO Last administered on 01/04/17 23:44 ; Admin Dose 100 MG; Start 01/04/17 at 21:50; Status Future Hold Clonazepam 0.5 mg 0.5 mg Q8H PO Last administered on 01/04/17 23:45; Admin Dose 0.5 MG; Start 01/04/17 at 23:00; Status Future Hold Norepinephrine 16 mg/Dextrose 500 ml @ 1.87 mls/hr TITRATE IV Last administered on 01/07/17 00:23; Admin Dose 15 MLS/HR; Start 01/05/17 at 00:30 Fentanyl 100 ml @ 2.5 mls/hr TITRATE IV Last administered on 01/19/17 03:05; Admin Dose 10 MLS/HR; Start 01/05/17 at 08:39 Midazolam HCl 50 ml @ 1 mls/hr TITRATE IV Last administered on 01/19/17 02:52 ; Admin Dose 10 MLS/HR; Start 01/05/17 at 08:41 Levetiracetam 100 ml @ 400 mls/hr Q12 IVPB Last administered on 01/18/17 21: 36; Admin Dose 400 MLS/HR; Start 01/05/17 at 11:30 Vasopressin 60 unit/Dextrose 60 ml @ 1.2 mls/hr Q12H IV Last administered on 22:32; Admin Dose 2.4 MLS/HR; Start 01/05/17 at 17:30 Epinephrine 4 mg/ Sodium Chloride 250 ml @ 0 mls/hr TITRATE IV ; Start 01/05/17 at 18:30 Phenylephrine HCl/ Dextrose (Robert-Syneph/D5W) 500 ml @ 18.75 mls/ hr TITRATE IV Last administered on 01/07/17 23:21; Admin Dose 26.25 MLS/HR; Start 01/05/17 at 20:30 Acetaminophen (Tylenol Liquid) 650 mg Q4H PRN NGT PAIN AND OR ELEVATED TEMP Last administered on 01/19/17 02:52; Admin Dose 650 MG; Start 01/06/17 at 04:30 Insulin Glargine 10 unit 10 unit DAILY SC Last administered on 01/07/17 08:19; Admin Dose 10 UNIT; Start 01/06/17 at 14:00; Status Future Hold Acetaminophen (Ofirmev 1000mg/ 100ml Iv) 100 ml @ 400 mls/hr Q6H PRN IVPB FEVER Last administered on 01/16/17 11:35; Admin Dose 400 MLS/HR; Start at 06:30 IV Flush (NS 10 ml) 10 ml PRN PRN IV IV PROTOCOL; Start 01/10/17 at 11:30 Amiodarone HCl (Cordarone) 200 mg BID GTB Last administered on 01/18/17 21:42 ; Admin Dose 200 MG; Start 01/11/17 at 12:00 Diagnostic Test (Pha) (Accu-Chek) 1 ea Q4H XX Last administered on 01/19/17 05 :55; Admin Dose 1 EA; Start 01/11/17 at 17:00 Epoetin Mina (Epogen (Esrd)) 10,000 units MoWeFr@17 SC Last administered on 18:30; Admin Dose 10,000 UNITS; Start 01/13/17 at 17:00 Insulin Aspart (Adult SC Insulin - Moder... Q4 SC Last administered on 21:08; Admin Dose 2 UNIT; Start 01/13/17 at 09:00 Meropenem/Sodium Chloride 50 ml @ 200 mls/hr Q12H IVPB Last administered on 22:29; Admin Dose 200 MLS/HR; Start 01/13/17 at 10:00 Pantoprazole 80 mg/Sodium Chloride 100 ml @ 10 mls/hr Q10H IV Last administered on 01/18/17 20:00; Admin Dose 10 MLS/HR; Start 01/14/17 at 06:00 Octreotide Acetate 500 mcg/ Sodium Chloride 50 ml @ 2.5 mls/hr Q20H IV Last administered on 01/19/17 06:01; Admin Dose 2.5 MLS/HR; Start 01/14/17 at 06:30 Vancomycin HCl (Vancocin) 250 ml @ 125 mls/hr Q72H IVPB Last administered on 06:01; Admin Dose 125 MLS/HR; Start 01/16/17 at 06:00 Metoprolol Tartrate (Lopressor) 25 mg BID PO Last administered on 01/18/17 21: 42; Admin Dose 25 MG; Start 01/15/17 at 15:00 Al Hydrox/Mg Hydrox/ Simethicone 30 ml 30 ml Q4 GTB Last administered on 05:52; Admin Dose 30 ML; Start 01/15/17 at 17:00 Caspofungin 50 mg/ Sodium Chloride 250 ml @ 250 mls/hr Q24H IVPB Last administered on 01/18/17 15:11; Admin Dose 250 MLS/HR; Start 01/17/17 at 14:30 Dextrose (D5W) 1,000 ml @ 150 mls/hr Q6H40M IV Last administered on 01/18/17 09:32; Admin Dose 150 MLS/HR; Start 01/18/17 at 08:30 Metoclopramide HCl 10 mg 10 mg Q6 IV Last administered on 01/19/17 05:52; Admin Dose 10 MG; Start 01/18/17 at 12:00 Total Parenteral Nutrition (Tpn) 1,000 ml @ 75 mls/hr [id number] IV Last administered on 01/18/17 19:14; Admin Dose 75 MLS/HR; Start 01/18/17 at 19:00 FRANCIS JULES MD Jan 19, 2017 07:50
[2017-01-19] MEDS: POTASSIUM CHLORIDE 50 ML IVPB SCH ×3 (08:31→14:35)
[2017-01-19] MEDS: AMIODARONE 200 MG TAB GTB SCH ×2 (08:32→22:09)
[2017-01-19] MEDS: METOPROLOL 25 MG TAB PO SCH ×2 (08:32→21:00)
[2017-01-19] MEDS: TPN 1,000 ML IV SCH ×2 (08:33→22:04)
[2017-01-19] MEDS: MEROPENEM 500MG/50 ML (PMX) 50 ML IVPB SCH ×2 (08:36→22:09)
[2017-01-19] MEDS: LEVETIRACETAM 1000 MG (PMX) 100 ML IVPB SCH ×2 (08:36→22:09)
[2017-01-19] MEDS: BALSAM PERU/CASTOR OIL 60 GM TUBE TOP SCH (08:36)
--- NOTE | 2017-01-19 10:42 | PN ---
DATE: 01/12/2017 SUBJECTIVE DATA: The patient is seen by me for pancreatitis. The patient underwent ERCP because of dilated common bile duct and possible stones in the common bile duct. ERCP showed evidence of multiple stones in the common bile duct. After sphincterotomy multiple stones were removed and CBD stent was placed. OBJECTIVE DATA: GENERAL: On examination now the patient once in awhile opens her eyes and tries to react. VITAL SIGNS: Pulse is 82, blood pressure 130/70. CARDIAC: Normal heart sounds. RESPIRATORY: Normal breath sounds. ABDOMEN: Soft abdomen. LABORATORY AND DIAGNOSTIC DATA: Interestingly the white count came down to 15,000 from 20,000. The rest of the labs showing evidence of renal failure. CLINICAL IMPRESSION: Improvement of white count status post ERCP, stone removal and stent placement. PLAN: At this time recommend continue to observe the patient, TPN can be continued. Eventually she may have the CBD stent removed as an outpatient. Dictated By: Chaitanya Green MD /[email or web address] /Document#: [id number] ; [employer]
--- NOTE | 2017-01-19 10:46 | RADRPT ---
PROCEDURE: XR Chest. CLINICAL INDICATION: CHF TECHNIQUE: A single AP view of the chest was obtained. COMPARISON: Chest x-ray dated 01/18/2017 FINDINGS: Multiple overlying monitor leads obscure evaluation. The endotracheal tube tip is approximately 3.0 cm above the kelly. The tip of the enteric tube extends below the left diaphragm. There is a righ t upper extremity PICC line with tip in the mid SVC. The right lower lobes obscured by overlying ventilator tubing. Lung volumes are low. There is blun ting of the left costophrenic angle. Nopneumothorax is seen. The cardiomediastinal silhouette is w ithin normal limits for size. The osseous structures are unremarkable. IMPRESSION: 1. Ventilator tubing obscures evaluation of the right lower lobe. Again noted are low lung volumes . There is a probable small left pleural effusion. No significant interval change. 2. Tubes and lines, as described above. RPTAT: HH .Priya Gonzalez MD, MD Date Time Electronically viewed and signed by .Priya Gonzalez MD, on 01/19/2017 10:46 .G/
--- NOTE | 2017-01-19 10:49 | CONS ---
Date/Time of Note Date/Time of Note DATE: 01/19/17 TIME: 10:47 Consult Date/Type/Reason Admit Date/Time Jan 04, 2017 at 19:10 Initial Consult Date 01/05/17 Type of Consultation: Pulmonary Ordering Provider: YING CASTAÑEDA Subjective Patient remains intubated on mechanical ventilation. She is failed several CPAP weaning trials. Awake alert follows simple commands. Objective Vital Signs Date Time Temp Pulse Resp B/P Pulse Ox O2 Delivery O2 Flow Rate FiO2 01/19/17 08:00 96 01/19/17 06:00 23 95/66 100 Mechanical Ventilator 01/19/17 05:56 30 01/19/17 04:00 101.0 Intake and Output 01/18/17 01/18/17 01/19/17 15:00 23:00 07:00 Intake Total 1897.5 ml 1280.0 ml 627.5 ml Output Total 1020 ml 710 ml Balance 877.5 ml 570.0 ml 627.5 ml Exam PHYSICAL EXAMINATION GENERAL: Elderly [place] lady orally intubated appears comfortable at rest VITAL SIGNS: see below. HEENT: Pupils equal, round, and reactive to light. CARDIAC: S1, S2, 1/6 systolic ejection murmur CHEST: Diminished air entry bilaterally. Rales both lung bases ABDOMEN: Mildly distended. Bowel sounds present no guarding or rebound EXTREMITIES: No cyanosis, clubbing edema +1 NEUROLOGIC: Generalized weakness Results/Medications Result Diagram: 01/19/17 0500 01/19/17 0500 Results 24 hrs Laboratory Tests Test 01/18/17 12:05 01/18/17 14:12 01/18/17 18:36 01/18/17 19:11 Lab Scanned Report REFERENCE LAB Bedside Glucose 106 76 111 Test 01/18/17 21:48 01/19/17 01:45 01/19/17 05:00 01/19/17 05:55 Bedside Glucose 97 116 116 White Blood Count 19.8 H Red Blood Count 2.69 L Hemoglobin 8.1 L Hematocrit 25.4 L Mean Corpuscular Volume 94.4 Mean Corpuscular Hemoglobin 30.1 Mean Corpuscular Hemoglobin Concent 31.9 L Red Cell Distribution Width 16.5 H Platelet Count 465 H Mean Platelet Volume 10.8 H Neutrophils % Lymphocytes % Monocytes % Neutrophils # Lymphocytes # Monocytes # Sodium Level 147 H Potassium Level 3.6 Chloride Level 112 H Carbon Dioxide Level 22 Anion Gap 17 H Blood Urea Nitrogen 71 H Creatinine 3.08 H Glucose Level 115 Calcium Level 7.7 L Phosphorus Level 3.8 Magnesium Level 2.1 Test 01/19/17 08:46 Bedside Glucose 113 Medications Current Medications Ondansetron HCl (Zofran Inj) 4 mg Q6H PRN IV NAUSEA AND/OR VOMITING; Start 01/04 at 19:30 Acetaminophen/ Hydrocodone Bitart ([place] (5/325)) 1 tab Q6H PRN PO MODERATE PAIN LEVEL 4-6; Start 01/04/17 at 19:30 Morphine Sulfate (morphine) 2 mg Q4H PRN IV SEVERE PAIN LEVEL 7-10 Last administered on 01/18/17 02:05; Admin Dose 2 MG; Start 01/04/17 at 19:30 Docusate Sodium (Colace) 100 mg Q12H PRN PO CONSTIPATION; Start 01/04/17 at 19: 30 Magnesium Hydroxide (Milk Of Mag) 30 ml DAILY PRN PO CONSTIPATION; Start at 19:30 Sodium Biphosphate/ Sodium Phosphate (Fleet Enema) 133 ml DAILY PRN [place] CONSTIPATION; Start 01/04/17 at 19:30 Lorazepam (Ativan) 0.5 mg Q6H PRN IV ANXIETY Last administered on 01/16/17 18: 28; Admin Dose 0.5 MG; Start 01/04/17 at 19:30 Hydralazine HCl (Apresoline) 10 mg Q6H PRN IV ELEVATED BLOOD PRESSURE; Start at 19:30 Nitroglycerin (Nitroglycerin (Sl Tab) 0.4 Mg) 1 tab Q5M PRN SL ANGINA; Start at 19:30 Phenobarbital (Luminal) 64.8 mg BID PO Last administered on 01/04/17 23:45; Admin Dose 64.8 MG; Start 01/04/17 at 21:00; Status Future Hold Topiramate (Topamax) 200 mg BID PO ; Start 01/05/17 at 21:00; Status Future Hold Miscellaneous Information 1 ea NOTE XX ; Start 01/04/17 at 19:30 Glucose (Glutose) 15 gm Q15M PRN PO DECREASED GLUCOSE; Start 01/04/17 at 19:30 Glucose (Glutose) 22.5 gm Q15M PRN PO DECREASED GLUCOSE; Start 01/04/17 at 19:30 Dextrose (D50w Syringe) 25 ml Q15M PRN IV DECREASED GLUCOSE Last administered on 01/08/17 05:36; Admin Dose 25 ML; Start 01/04/17 at 19:30 Dextrose (D50w Syringe) 50 ml Q15M PRN IV DECREASED GLUCOSE; Start 01/04/17 at 19:30 Glucagon (Glucagen) 1 mg Q15M PRN IM DECREASED GLUCOSE; Start 01/04/17 at 19:30 Glucose (Glutose) 15 gm Q15M PRN BUCCAL DECREASED GLUCOSE; Start 01/04/17 at 19: 30 Phenytoin (Dilantin Susp Cup) 100 mg TID PO Last administered on 01/04/17 23:44 ; Admin Dose 100 MG; Start 01/04/17 at 21:50; Status Future Hold Clonazepam 0.5 mg 0.5 mg Q8H PO Last administered on 01/04/17 23:45; Admin Dose 0.5 MG; Start 01/04/17 at 23:00; Status Future Hold Norepinephrine 16 mg/Dextrose 500 ml @ 1.87 mls/hr TITRATE IV Last administered on 01/07/17 00:23; Admin Dose 15 MLS/HR; Start 01/05/17 at 00:30 Fentanyl 100 ml @ 2.5 mls/hr TITRATE IV Last administered on 01/19/17 08:31; Admin Dose 2.5 MLS/HR; Start 01/05/17 at 08:39 Midazolam HCl 50 ml @ 1 mls/hr TITRATE IV Last administered on 01/19/17 08:35 ; Admin Dose 100 MLS/HR; Start 01/05/17 at 08:41 Levetiracetam 100 ml @ 400 mls/hr Q12 IVPB Last administered on 01/19/17 08: 36; Admin Dose 400 MLS/HR; Start 01/05/17 at 11:30 Vasopressin 60 unit/Dextrose 60 ml @ 1.2 mls/hr Q12H IV Last administered on 22:32; Admin Dose 2.4 MLS/HR; Start 01/05/17 at 17:30 Epinephrine 4 mg/ Sodium Chloride 250 ml @ 0 mls/hr TITRATE IV ; Start 01/05/17 at 18:30 Phenylephrine HCl/ Dextrose (Robert-Syneph/D5W) 500 ml @ 18.75 mls/ hr TITRATE IV Last administered on 01/07/17 23:21; Admin Dose 26.25 MLS/HR; Start 01/05/17 at 20:30 Acetaminophen (Tylenol Liquid) 650 mg Q4H PRN NGT PAIN AND OR ELEVATED TEMP Last administered on 01/19/17 02:52; Admin Dose 650 MG; Start 01/06/17 at 04:30 Insulin Glargine 10 unit 10 unit DAILY SC Last administered on 01/07/17 08:19; Admin Dose 10 UNIT; Start 01/06/17 at 14:00; Status Future Hold Acetaminophen (Ofirmev 1000mg/ 100ml Iv) 100 ml @ 400 mls/hr Q6H PRN IVPB FEVER Last administered on 01/16/17 11:35; Admin Dose 400 MLS/HR; Start at 06:30 IV Flush (NS 10 ml) 10 ml PRN PRN IV IV PROTOCOL; Start 01/10/17 at 11:30 Amiodarone HCl (Cordarone) 200 mg BID GTB Last administered on 01/19/17 08:32 ; Admin Dose 200 MG; Start 01/11/17 at 12:00 Diagnostic Test (Pha) (Accu-Chek) 1 ea Q4H XX Last administered on 01/19/17 08 :37; Admin Dose 1 EA; Start 01/11/17 at 17:00 Epoetin Mina (Epogen (Esrd)) 10,000 units MoWeFr@17 SC Last administered on 18:30; Admin Dose 10,000 UNITS; Start 01/13/17 at 17:00 Insulin Aspart (Adult SC Insulin - Moder... Q4 SC Last administered on 21:08; Admin Dose 2 UNIT; Start 01/13/17 at 09:00 Meropenem/Sodium Chloride 50 ml @ 200 mls/hr Q12H IVPB Last administered on 08:36; Admin Dose 200 MLS/HR; Start 01/13/17 at 10:00 Pantoprazole 80 mg/Sodium Chloride 100 ml @ 10 mls/hr Q10H IV Last administered on 01/19/17 08:34; Admin Dose 10 MLS/HR; Start 01/14/17 at 06:00 Octreotide Acetate 500 mcg/ Sodium Chloride 50 ml @ 2.5 mls/hr Q20H IV Last administered on 01/19/17 08:30; Admin Dose 2.5 MLS/HR; Start 01/14/17 at 06:30 Vancomycin HCl (Vancocin) 250 ml @ 125 mls/hr Q72H IVPB Last administered on 06:01; Admin Dose 125 MLS/HR; Start 01/16/17 at 06:00 Metoprolol Tartrate (Lopressor) 25 mg BID PO Last administered on 01/19/17 08: 32; Admin Dose 25 MG; Start 01/15/17 at 15:00 Al Hydrox/Mg Hydrox/ Simethicone 30 ml 30 ml Q4 GTB Last administered on 08:31; Admin Dose 30 ML; Start 01/15/17 at 17:00 Caspofungin 50 mg/ Sodium Chloride 250 ml @ 250 mls/hr Q24H IVPB Last administered on 01/18/17 15:11; Admin Dose 250 MLS/HR; Start 01/17/17 at 14:30 Dextrose (D5W) 1,000 ml @ 150 mls/hr Q6H40M IV Last administered on 01/18/17 09:32; Admin Dose 150 MLS/HR; Start 01/18/17 at 08:30 Metoclopramide HCl 10 mg 10 mg Q6 IV Last administered on 01/19/17 05:52; Admin Dose 10 MG; Start 01/18/17 at 12:00 Total Parenteral Nutrition 1,000 ml @ 75 mls/hr [id number] IV Last administered on 01/19/17 08:33; Admin Dose 75 MLS/HR; Start 01/18/17 at 19:00 Potassium Chloride (KCl 20 MEQ/50 ML SW) 50 ml @ 25 mls/hr Q2H IVPB Last administered on 01/19/17 08:31; Admin Dose 25 MLS/HR; Start 01/19/17 at 08:00; Stop 01/19/17 at 13:59 Assessment/Plan Chief Complaint/Hosp Course IMP: 1. Severe gallstone pancreatitis with septic shock, now slowly improving. Severe pancreatitis present on CT abdomen. Drop in hemoglobin. Questionable GI bleed. 2. Metabolic acidosis secondary to above and ARF 3. Renal failure likely ATN now requiring hemodialysis 4. 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 Status post thoracentesis right lung. Ongoing pulmonary edema and atelectasis on chest x-ray although radiographically improved. 5. History of seizure disorder 6. GI bleed status post endoscopy yesterday findings per chart. GI recommendations regarding jejunostomy tube RECS: 1. Hemodialysis today per nephrology 2. Continue mechanical ventilation, patient is unlikely to be weaned off mechanical ventilation in the short-term 3. Broad-spectrum antibiotic coverage 4. Nasogastric tube to suction will discuss with GI can restart feeding. 5. GI recommendations. Continue supportive care. 6. Continue DVT and GI prophylaxis 35 min cc time Family discussion today with primary care team and patient's grandson and brother. Explained patient's condition and prognosis discussed plan of care. Patient's family and we agreed to proceed with tracheostomy and PEG tube placement as there is possibility for recovery from this condition. Problems: AMPARO VALERIO MD, [facility] Jan 19, 2017 10:48
[2017-01-19 12:40] LABS: LYMPHOCYTES # 1.4 10^3/ul (0.8-2.9); MONOCYTE # 1.4 10^3/ul (0.3-0.9); NEUTROPHIL # 15.8 10^3/ul (1.6-7.5)
--- NOTE | 2017-01-19 13:58 | PN ---
Date/Time of Note Date/Time of Note DATE: 01/19/17 TIME: 13:56 Assessment/Plan VTE Prophylaxis VTE Prophylaxis Intervention: SCD's Lines/Catheters IV Catheter Type (from Nrs): Peripheral IV Assessment/Plan Chief Complaint/Hosp Course 1. Severe systemic shock with multiorgan failure secondary to severe pancreatitis superimposed by sepsis secondary to staph bacteremia, bilateral pneumonia, E. coli UTI -Improved 2. Severe gallstone pancreatitis * Status post ERCP with sphincterectomy and removal of common bile duct stones, placement of common bile duct stent done January 13, 2017 3. Probable GI bleed as well as abdominal distention 4. Acute respiratory failure secondary to #1 patient remains ventilator dependent 5. Acute kidney injury secondary to #1 now requiring hemodialysis 6. Persistent tachycardia likely secondary to #1 on amiodarone 7. Bilateral pneumonia with bilateral effusions R> L which is likely reactive from #2 * persistent despite right-sided thoracentesis January 13, 2017 8. Normocytic normochromic anemia: Worsening 9. History of seizure disorder on Keppra 10. Chronic debility on TPN 11. Persistent tachycardia: Plan: Continue ICU monitoring and vent support and sedation as indicated Continue Protonix and DC octreotide drips, continue to hold anticoagulation, follow-up H&H, follow GI plan Continue antibiotics per ID Continue TPN as well as gentle fluid hydration Family conference held today in regards to PEG and trach and family is agreeable , have consulted CT surgery for trach placement, GI for PEG/PEJ Appreciate cardiology input and management of tachycardia, patient is on amiodarone Closely monitor hemoglobin every 6 hours, transfuse as needed Continue Keppra for seizures Continue dialysis per renal Tachycardia is consistent with severe pancreatitis, Appreciate all consultants Further interventions per clinical course Prognosis remains guarded, family conference tomorrow to discuss PEG and trach Prophylaxis: SCDs/Protonix drip Problems: Subjective 24 Hr Interval Summary Subjective hx not possible: pt non-verbal Exam/Review of Systems Vital Signs Vitals Vital Signs Date Time Temp Pulse Resp B/P Pulse Ox O2 Delivery O2 Flow Rate FiO2 01/19/17 13:00 26 96/62 98 Mechanical Ventilator 01/19/17 12:00 112 01/19/17 12:00 98.9 01/19/17 10:58 30 Intake and Output 01/18/17 01/18/17 01/19/17 15:00 23:00 07:00 Intake Total 1897.5 ml 1280.0 ml 827.5 ml Output Total 1020 ml 710 ml 220 ml Balance 877.5 ml 570.0 ml 607.5 ml Exam Constitutional: non-verbal ENMT: intubated Respiratory: clear to auscultation Cardiovascular: regular rate and rhythm Gastrointestinal: soft, No distended Musculoskeletal: nl extremities to inspection Results Result Diagram: 01/19/17 0500 01/19/17 0500 Results 24 hrs Laboratory Tests Test 01/18/17 14:12 01/18/17 18:36 01/18/17 19:11 01/18/17 21:48 Bedside Glucose 106 76 111 97 Test 01/19/17 01:45 01/19/17 05:00 01/19/17 05:55 01/19/17 08:46 Bedside Glucose 116 116 113 White Blood Count 19.8 H Red Blood Count 2.69 L Hemoglobin 8.1 L Hematocrit 25.4 L Mean Corpuscular Volume 94.4 Mean Corpuscular Hemoglobin 30.1 Mean Corpuscular Hemoglobin Concent 31.9 L Red Cell Distribution Width 16.5 H Platelet Count 465 H Mean Platelet Volume 10.8 H Neutrophils % 80.0 H Band Neutrophils % 6.0 H Lymphocytes % 7.0 L Monocytes % 7.0 Neutrophils # 15.8 H Lymphocytes # 1.4 Monocytes # 1.4 H Sodium Level 147 H Potassium Level 3.6 Chloride Level 112 H Carbon Dioxide Level 22 Anion Gap 17 H Blood Urea Nitrogen 71 H Creatinine 3.08 H Glucose Level 115 Calcium Level 7.7 L Phosphorus Level 3.8 Magnesium Level 2.1 Test 01/19/17 12:31 Bedside Glucose 98 Medications Medications Current Medications Ondansetron HCl (Zofran Inj) 4 mg Q6H PRN IV NAUSEA AND/OR VOMITING; Start 01/04 at 19:30 Acetaminophen/ Hydrocodone Bitart ([place] (5/325)) 1 tab Q6H PRN PO MODERATE PAIN LEVEL 4-6; Start 01/04/17 at 19:30 Morphine Sulfate (morphine) 2 mg Q4H PRN IV SEVERE PAIN LEVEL 7-10 Last administered on 01/18/17t 02:05; Admin Dose 2 MG; Start 01/04/17 at 19:30 Docusate Sodium (Colace) 100 mg Q12H PRN PO CONSTIPATION; Start 01/04/17 at 19: 30 Magnesium Hydroxide (Milk Of Mag) 30 ml DAILY PRN PO CONSTIPATION; Start at 19:30 Sodium Biphosphate/ Sodium Phosphate (Fleet Enema) [address] CONSTIPATION; Start 01/04/17 at 19:30 Lorazepam (Ativan) 0.5 mg Q6H PRN IV ANXIETY Last administered on 01/16/17 18: 28; Admin Dose 0.5 MG; Start 01/04/17 at 19:30 Hydralazine HCl (Apresoline) 10 mg Q6H PRN IV ELEVATED BLOOD PRESSURE; Start at 19:30 Nitroglycerin (Nitroglycerin (Sl Tab) 0.4 Mg) 1 tab Q5M PRN SL ANGINA; Start at 19:30 Phenobarbital (Luminal) 64.8 mg BID PO Last administered on 01/04/17 23:45; Admin Dose 64.8 MG; Start 01/04/17 at 21:00; Status Future Hold Topiramate (Topamax) 200 mg BID PO ; Start 01/05/17 at 21:00; Status Future Hold Miscellaneous Information 1 ea NOTE XX ; Start 01/04/17 at 19:30 Glucose (Glutose) 15 gm Q15M PRN PO DECREASED GLUCOSE; Start 01/04/17 at 19:30 Glucose (Glutose) 22.5 gm Q15M PRN PO DECREASED GLUCOSE; Start 01/04/17 at 19:30 Dextrose (D50w Syringe) 25 ml Q15M PRN IV DECREASED GLUCOSE Last administered on 01/08/17 05:36; Admin Dose 25 ML; Start 01/04/17 at 19:30 Dextrose (D50w Syringe) 50 ml Q15M PRN IV DECREASED GLUCOSE; Start 01/04/17 at 19:30 Glucagon (Glucagen) 1 mg Q15M PRN IM DECREASED GLUCOSE; Start 01/04/17 at 19:30 Glucose (Glutose) 15 gm Q15M PRN BUCCAL DECREASED GLUCOSE; Start 01/04/17 at 19: 30 Phenytoin (Dilantin Susp Cup) 100 mg TID PO Last administered on 01/04/17 23:44 ; Admin Dose 100 MG; Start 01/04/17 at 21:50; Status Future Hold Clonazepam 0.5 mg 0.5 mg Q8H PO Last administered on 01/04/17 23:45; Admin Dose 0.5 MG; Start 01/04/17 at 23:00; Status Future Hold Norepinephrine 16 mg/Dextrose 500 ml @ 1.87 mls/hr TITRATE IV Last administered on 01/07/17 00:23; Admin Dose 15 MLS/HR; Start 01/05/17 at 00:30 Fentanyl 100 ml @ 2.5 mls/hr TITRATE IV Last administered on 01/19/17 08:31; Admin Dose 2.5 MLS/HR; Start 01/05/17 at 08:39 Midazolam HCl 50 ml @ 1 mls/hr TITRATE IV Last administered on 01/19/17 08:35 ; Admin Dose 100 MLS/HR; Start 01/05/17 at 08:41 Levetiracetam 100 ml @ 400 mls/hr Q12 IVPB Last administered on 01/19/17 08: 36; Admin Dose 400 MLS/HR; Start 01/05/17 at 11:30 Vasopressin 60 unit/Dextrose 60 ml @ 1.2 mls/hr Q12H IV Last administered on 22:32; Admin Dose 2.4 MLS/HR; Start 01/05/17 at 17:30 Epinephrine 4 mg/ Sodium Chloride 250 ml @ 0 mls/hr TITRATE IV ; Start 01/05/17 at 18:30 Phenylephrine HCl/ Dextrose (Robert-Syneph/D5W) 500 ml @ 18.75 mls/ hr TITRATE IV Last administered on 01/07/17 23:21; Admin Dose 26.25 MLS/HR; Start 01/05/17 at 20:30 Acetaminophen (Tylenol Liquid) 650 mg Q4H PRN NGT PAIN AND OR ELEVATED TEMP Last administered on 01/19/17 02:52; Admin Dose 650 MG; Start 01/06/17 at 04:30 Insulin Glargine 10 unit 10 unit DAILY SC Last administered on 01/07/17 08:19; Admin Dose 10 UNIT; Start 01/06/17 at 14:00; Status Future Hold Acetaminophen (Ofirmev 1000mg/ 100ml Iv) 100 ml @ 400 mls/hr Q6H PRN IVPB FEVER Last administered on 01/16/17 11:35; Admin Dose 400 MLS/HR; Start at 06:30 IV Flush (NS 10 ml) 10 ml PRN PRN IV IV PROTOCOL; Start 01/10/17 at 11:30 Amiodarone HCl (Cordarone) 200 mg BID GTB Last administered on 01/19/17 08:32 ; Admin Dose 200 MG; Start 01/11/17 at 12:00 Diagnostic Test (Pha) (Accu-Chek) 1 ea Q4H XX Last administered on 01/19/17 12 :56; Admin Dose 1 EA; Start 01/11/17 at 17:00 Epoetin Mina (Epogen (Esrd)) 10,000 units MoWeFr@17 SC Last administered on 18:30; Admin Dose 10,000 UNITS; Start 01/13/17 at 17:00 Insulin Aspart (Adult SC Insulin - Moder... Q4 SC Last administered on 21:08; Admin Dose 2 UNIT; Start 01/13/17 at 09:00 Meropenem/Sodium Chloride 50 ml @ 200 mls/hr Q12H IVPB Last administered on 08:36; Admin Dose 200 MLS/HR; Start 01/13/17 at 10:00 Pantoprazole 80 mg/Sodium Chloride 100 ml @ 10 mls/hr Q10H IV Last administered on 01/19/17 08:34; Admin Dose 10 MLS/HR; Start 01/14/17 at 06:00 Octreotide Acetate 500 mcg/ Sodium Chloride 50 ml @ 2.5 mls/hr Q20H IV Last administered on 01/19/17 08:30; Admin Dose 2.5 MLS/HR; Start 01/14/17 at 06:30 Vancomycin HCl (Vancocin) 250 ml @ 125 mls/hr Q72H IVPB Last administered on 06:01; Admin Dose 125 MLS/HR; Start 01/16/17 at 06:00 Metoprolol Tartrate (Lopressor) 25 mg BID PO Last administered on 01/19/17 08: 32; Admin Dose 25 MG; Start 01/15/17 at 15:00 Al Hydrox/Mg Hydrox/ Simethicone 30 ml 30 ml Q4 GTB Last administered on 12:23; Admin Dose 30 ML; Start 01/15/17 at 17:00 Caspofungin 50 mg/ Sodium Chloride 250 ml @ 250 mls/hr Q24H IVPB Last administered on 01/18/17 15:11; Admin Dose 250 MLS/HR; Start 01/17/17 at 14:30 Dextrose (D5W) 1,000 ml @ 150 mls/hr Q6H40M IV Last administered on 01/19/17 12:24; Admin Dose 150 MLS/HR; Start 01/18/17 at 08:30 Metoclopramide HCl 10 mg 10 mg Q6 IV Last administered on 01/19/17 05:52; Admin Dose 10 MG; Start 01/18/17 at 12:00 Total Parenteral Nutrition 1,000 ml @ 75 mls/hr [id number] IV Last administered on 01/19/17 08:33; Admin Dose 75 MLS/HR; Start 01/18/17 at 19:00 Potassium Chloride (KCl 20 MEQ/50 ML SW) 50 ml @ 25 mls/hr Q2H IVPB Last administered on 01/19/17 12:23; Admin Dose 25 MLS/HR; Start 01/19/17 at 08:00; Stop 01/19/17 at 13:59 YING CASTAÑEDA Jan 19, 2017 13:58
--- NOTE | 2017-01-19 14:22 | CONS ---
Date/Time of Note Date/Time of Note DATE: 01/19/17 TIME: 14:21 Assessment/Plan Assessment/Plan Chief Complaint/Hosp Course No events overnight per report patient is lying comfortably in bed getting TPN she is sedated T-max this morning 101 T-current 98.9 pulse 112 respirations 23 blood pressure 106/69 saturation 100 on vent Blood cultures since January 17 negative urine culture growing Nella albicans Indwelling's: Endotracheal tube NG tube Matias catheter right femoral Gael right upper extremity PICC line CT of the abdomen and pelvis on January 14 revealed severe pancreatitis with surrounding edema and fluid, worse than seen previously Antibiotics: Vancomycin, meropenem day #14 Cancidas day #4 Microbiology: Blood culture on admission grew coag negative staph species urine culture grew E. coli repeat blood and urine culture had been negative Physical examination: Chronically ill-appearing elderly woman who looks comfortable on vent. Head atraumatic normocephalic, sclera nonicteric. Neck is supple, trachea midline. Chest rise symmetrical, breath sounds diminished to bases Heart: S1, S2, tachycardic Abdomen soft bowel tones present. Extremities with trace edema, no cyanosis Assessment: 1. Severe sepsis 2 to #2, status post shock 2. Severe, acute pancreatitis, possibly developing pseudocyst 3. Choledocholithiasis, status post ERCP 01/12/17 with removal of the stone and stent placement 4. Coag negative staph bacteremia, likely contaminant 5. Acute respiratory failure 6. Acute renal failure requiring hemodialysis 7. Fungal urinary tract infection Plan: Remains hemodynamically stable, still with ongoing fevers, so far blood cultures have been negative, continue antibiotics, TPN, vent support per pulmonary, nephrology/ GI recommendations. Plan for tracheostomy and PEG placement Discussed with staff Problems: Consultation Date/Type/Reason Admit Date/Time Jan 04, 2017 at 19:10 Initial Consult Date 01/11/17 Type of Consultation: ID Referring Provider: YING CASTAÑEDA Exam/Review of Systems Vital Signs Vitals Vital Signs Date Time Temp Pulse Resp B/P Pulse Ox O2 Delivery O2 Flow Rate FiO2 01/19/17 13:00 26 96/62 98 Mechanical Ventilator 01/19/17 12:00 112 01/19/17 12:00 98.9 01/19/17 10:58 30 Intake and Output 01/18/17 01/18/17 01/19/17 15:00 23:00 07:00 Intake Total 1897.5 ml 1280.0 ml 827.5 ml Output Total 1020 ml 710 ml 220 ml Balance 877.5 ml 570.0 ml 607.5 ml Results Result Diagram: 01/19/17 0500 01/19/17 0500 Results 24 hrs Laboratory Tests Test 01/18/17 18:36 01/18/17 19:11 01/18/17 21:48 01/19/17 01:45 Bedside Glucose 76 111 97 116 Test 01/19/17 05:00 01/19/17 05:55 01/19/17 08:46 01/19/17 12:31 White Blood Count 19.8 H Red Blood Count 2.69 L Hemoglobin 8.1 L Hematocrit 25.4 L Mean Corpuscular Volume 94.4 Mean Corpuscular Hemoglobin 30.1 Mean Corpuscular Hemoglobin Concent 31.9 L Red Cell Distribution Width 16.5 H Platelet Count 465 H Mean Platelet Volume 10.8 H Neutrophils % 80.0 H Band Neutrophils % 6.0 H Lymphocytes % 7.0 L Monocytes % 7.0 Neutrophils # 15.8 H Lymphocytes # 1.4 Monocytes # 1.4 H Sodium Level 147 H Potassium Level 3.6 Chloride Level 112 H Carbon Dioxide Level 22 Anion Gap 17 H Blood Urea Nitrogen 71 H Creatinine 3.08 H Glucose Level 115 Calcium Level 7.7 L Phosphorus Level 3.8 Magnesium Level 2.1 Bedside Glucose 116 113 98 Medications Medications Current Medications Ondansetron HCl (Zofran Inj) 4 mg Q6H PRN IV NAUSEA AND/OR VOMITING; Start 01/04 at 19:30 Acetaminophen/ Hydrocodone Bitart ([place] (5/325)) 1 tab Q6H PRN PO MODERATE PAIN LEVEL 4-6; Start 01/04/17 at 19:30 Morphine Sulfate (morphine) 2 mg Q4H PRN IV SEVERE PAIN LEVEL 7-10 Last administered on 01/18/17t 02:05; Admin Dose 2 MG; Start 01/04/17 at 19:30 Docusate Sodium (Colace) 100 mg Q12H PRN PO CONSTIPATION; Start 01/04/17 at 19: 30 Magnesium Hydroxide (Milk Of Mag) 30 ml DAILY PRN PO CONSTIPATION; Start at 19:30 Sodium Biphosphate/ Sodium Phosphate (Fleet Enema) 133 ml DAILY PRN [place] CONSTIPATION; Start 01/04/17 at 19:30 Lorazepam (Ativan) 0.5 mg Q6H PRN IV ANXIETY Last administered on 01/16/17 18: 28; Admin Dose 0.5 MG; Start 01/04/17 at 19:30 Hydralazine HCl (Apresoline) 10 mg Q6H PRN IV ELEVATED BLOOD PRESSURE; Start at 19:30 Nitroglycerin (Nitroglycerin (Sl Tab) 0.4 Mg) 1 tab Q5M PRN SL ANGINA; Start at 19:30 Phenobarbital (Luminal) 64.8 mg BID PO Last administered on 01/04/17 23:45; Admin Dose 64.8 MG; Start 01/04/17 at 21:00; Status Future Hold Topiramate (Topamax) 200 mg BID PO ; Start 01/05/17 at 21:00; Status Future Hold Miscellaneous Information 1 ea NOTE XX ; Start 01/04/17 at 19:30 Glucose (Glutose) 15 gm Q15M PRN PO DECREASED GLUCOSE; Start 01/04/17 at 19:30 Glucose (Glutose) 22.5 gm Q15M PRN PO DECREASED GLUCOSE; Start 01/04/17 at 19:30 Dextrose (D50w Syringe) 25 ml Q15M PRN IV DECREASED GLUCOSE Last administered on 01/08/17 05:36; Admin Dose 25 ML; Start 01/04/17 at 19:30 Dextrose (D50w Syringe) 50 ml Q15M PRN IV DECREASED GLUCOSE; Start 01/04/17 at 19:30 Glucagon (Glucagen) 1 mg Q15M PRN IM DECREASED GLUCOSE; Start 01/04/17 at 19:30 Glucose (Glutose) 15 gm Q15M PRN BUCCAL DECREASED GLUCOSE; Start 01/04/17 at 19: 30 Phenytoin (Dilantin Susp Cup) 100 mg TID PO Last administered on 01/04/17 23:44 ; Admin Dose 100 MG; Start 01/04/17 at 21:50; Status Future Hold Clonazepam 0.5 mg 0.5 mg Q8H PO Last administered on 01/04/17 23:45; Admin Dose 0.5 MG; Start 01/04/17 at 23:00; Status Future Hold Norepinephrine 16 mg/Dextrose 500 ml @ 1.87 mls/hr TITRATE IV Last administered on 01/07/17 00:23; Admin Dose 15 MLS/HR; Start 01/05/17 at 00:30 Fentanyl 100 ml @ 2.5 mls/hr TITRATE IV Last administered on 01/19/17 08:31; Admin Dose 2.5 MLS/HR; Start 01/05/17 at 08:39 Midazolam HCl 50 ml @ 1 mls/hr TITRATE IV Last administered on 01/19/17 08:35 ; Admin Dose 100 MLS/HR; Start 01/05/17 at 08:41 Levetiracetam 100 ml @ 400 mls/hr Q12 IVPB Last administered on 01/19/17 08: 36; Admin Dose 400 MLS/HR; Start 01/05/17 at 11:30 Vasopressin 60 unit/Dextrose 60 ml @ 1.2 mls/hr Q12H IV Last administered on 22:32; Admin Dose 2.4 MLS/HR; Start 01/05/17 at 17:30 Epinephrine 4 mg/ Sodium Chloride 250 ml @ 0 mls/hr TITRATE IV ; Start 01/05/17 at 18:30 Phenylephrine HCl/ Dextrose (Robert-Syneph/D5W) 500 ml @ 18.75 mls/ hr TITRATE IV Last administered on 01/07/17 23:21; Admin Dose 26.25 MLS/HR; Start 01/05/17 at 20:30 Acetaminophen (Tylenol Liquid) 650 mg Q4H PRN NGT PAIN AND OR ELEVATED TEMP Last administered on 01/19/17 02:52; Admin Dose 650 MG; Start 01/06/17 at 04:30 Insulin Glargine 10 unit 10 unit DAILY SC Last administered on 01/07/17 08:19; Admin Dose 10 UNIT; Start 01/06/17 at 14:00; Status Future Hold Acetaminophen (Ofirmev 1000mg/ 100ml Iv) 100 ml @ 400 mls/hr Q6H PRN IVPB FEVER Last administered on 01/16/17 11:35; Admin Dose 400 MLS/HR; Start at 06:30 IV Flush (NS 10 ml) 10 ml PRN PRN IV IV PROTOCOL; Start 01/10/17 at 11:30 Amiodarone HCl (Cordarone) 200 mg BID GTB Last administered on 01/19/17 08:32 ; Admin Dose 200 MG; Start 01/11/17 at 12:00 Diagnostic Test (Pha) (Accu-Chek) 1 ea Q4H XX Last administered on 01/19/17 12 :56; Admin Dose 1 EA; Start 01/11/17 at 17:00 Epoetin Mina (Epogen (Esrd)) 10,000 units MoWeFr@17 SC Last administered on 18:30; Admin Dose 10,000 UNITS; Start 01/13/17 at 17:00 Insulin Aspart (Adult SC Insulin - Moder... Q4 SC Last administered on 21:08; Admin Dose 2 UNIT; Start 01/13/17 at 09:00 Meropenem/Sodium Chloride 50 ml @ 200 mls/hr Q12H IVPB Last administered on 08:36; Admin Dose 200 MLS/HR; Start 01/13/17 at 10:00 Pantoprazole 80 mg/Sodium Chloride 100 ml @ 10 mls/hr Q10H IV Last administered on 01/19/17 08:34; Admin Dose 10 MLS/HR; Start 01/14/17 at 06:00 Octreotide Acetate 500 mcg/ Sodium Chloride 50 ml @ 2.5 mls/hr Q20H IV Last administered on 01/19/17 08:30; Admin Dose 2.5 MLS/HR; Start 01/14/17 at 06:30 Vancomycin HCl (Vancocin) 250 ml @ 125 mls/hr Q72H IVPB Last administered on 06:01; Admin Dose 125 MLS/HR; Start 01/16/17 at 06:00 Metoprolol Tartrate (Lopressor) 25 mg BID PO Last administered on 01/19/17 08: 32; Admin Dose 25 MG; Start 01/15/17 at 15:00 Al Hydrox/Mg Hydrox/ Simethicone 30 ml 30 ml Q4 GTB Last administered on 12:23; Admin Dose 30 ML; Start 01/15/17 at 17:00 Caspofungin 50 mg/ Sodium Chloride 250 ml @ 250 mls/hr Q24H IVPB Last administered on 01/18/17 15:11; Admin Dose 250 MLS/HR; Start 01/17/17 at 14:30 Dextrose (D5W) 1,000 ml @ 150 mls/hr Q6H40M IV Last administered on 01/19/17 12:24; Admin Dose 150 MLS/HR; Start 01/18/17 at 08:30 Metoclopramide HCl 10 mg 10 mg Q6 IV Last administered on 01/19/17 05:52; Admin Dose 10 MG; Start 01/18/17 at 12:00 Total Parenteral Nutrition (Tpn) 1,000 ml @ 75 mls/hr [id number] IV Last administered on 01/19/17 08:33; Admin Dose 75 MLS/HR; Start 01/18/17 at 19:00 MIKE TURCIOS NP Jan 19, 2017 14:22
[2017-01-19] MEDS: CASPOFUNGIN 50 MG in SOD CHLORIDE 0.9% 250 ML IVPB SCH (14:36)
--- NOTE | 2017-01-19 15:32 | CONS ---
Date/Time of Note Date/Time of Note DATE: 01/19/17 TIME: 15:30 Assessment/Plan Assessment/Plan Additional Assessment/Plan Paroxysmal atrial fibrillation, currently sinus rhythm Severe sepsis Acute pancreatitis status post ERCP Preserved ejection fraction Respiratory failure, vent dependent Acute kidney injury now on hemodialysis Seizure disorder Psychiatric disorder Acute blood loss anemia GI bleed status post clipping -Patient currently with sinus tachycardia and still with paroxysmal episodes of atrial fibrillation. Would continue amiodarone to help maintain in sinus rhythm. No anticoagulation for atrial fibrillation given severe anemia and GI bleed. Fluid management as per our nephrology colleagues. Ideally, maintain potassium above 4.0 and magnesium above 2.0 to decrease arrhythmias. Consultation Date/Type/Reason Admit Date/Time Jan 04, 2017 at 19:10 Initial Consult Date 01/05/17 Type of Consultation: cv Referring Provider: YING CASTAÑEDA 24 HR Interval Summary Free Text/Dictation Patient seen and examined, plan for tracheostomy and PEG placement Exam/Review of Systems Vital Signs Vitals Vital Signs Date Time Temp Pulse Resp B/P Pulse Ox O2 Delivery O2 Flow Rate FiO2 01/19/17 14:30 26 99/64 99 Mechanical Ventilator 01/19/17 13:26 87 30 01/19/17 12:00 98.9 Intake and Output 01/18/17 01/18/17 01/19/17 15:00 23:00 07:00 Intake Total 1897.5 ml 1280.0 ml 827.5 ml Output Total 1020 ml 710 ml 220 ml Balance 877.5 ml 570.0 ml 607.5 ml Exam No apparent distress, intubated Head: normocephalic ENMT: intubated Respiratory: other (Coarse breath sounds bilaterally, no wheezing) Cardiovascular: other (S1-S2 heard), regular rate and rhythm (Tachycardic) Gastrointestinal: bowel sounds, non-tender, soft Extremities: edema Results Result Diagram: 01/19/17 0500 01/19/17 0500 Results 24 hrs Laboratory Tests Test 01/18/17 18:36 01/18/17 19:11 01/18/17 21:48 01/19/17 01:45 Bedside Glucose 76 111 97 116 Test 01/19/17 05:00 01/19/17 05:55 01/19/17 08:46 01/19/17 12:31 White Blood Count 19.8 H Red Blood Count 2.69 L Hemoglobin 8.1 L Hematocrit 25.4 L Mean Corpuscular Volume 94.4 Mean Corpuscular Hemoglobin 30.1 Mean Corpuscular Hemoglobin Concent 31.9 L Red Cell Distribution Width 16.5 H Platelet Count 465 H Mean Platelet Volume 10.8 H Neutrophils % 80.0 H Band Neutrophils % 6.0 H Lymphocytes % 7.0 L Monocytes % 7.0 Neutrophils # 15.8 H Lymphocytes # 1.4 Monocytes # 1.4 H Sodium Level 147 H Potassium Level 3.6 Chloride Level 112 H Carbon Dioxide Level 22 Anion Gap 17 H Blood Urea Nitrogen 71 H Creatinine 3.08 H Glucose Level 115 Calcium Level 7.7 L Phosphorus Level 3.8 Magnesium Level 2.1 Bedside Glucose 116 113 98 Medications Medications Current Medications Ondansetron HCl (Zofran Inj) 4 mg Q6H PRN IV NAUSEA AND/OR VOMITING; Start 01/04 at 19:30 Acetaminophen/ Hydrocodone Bitart ([place] (5/325)) 1 tab Q6H PRN PO MODERATE PAIN LEVEL 4-6; Start 01/04/17 at 19:30 Morphine Sulfate (morphine) 2 mg Q4H PRN IV SEVERE PAIN LEVEL 7-10 Last administered on 01/18/17 02:05; Admin Dose 2 MG; Start 01/04/17 at 19:30 Docusate Sodium (Colace) 100 mg Q12H PRN PO CONSTIPATION; Start 01/04/17 at 19: 30 Magnesium Hydroxide (Milk Of Mag) 30 ml DAILY PRN PO CONSTIPATION; Start at 19:30 Sodium Biphosphate/ Sodium Phosphate (Fleet Enema) 133 ml DAILY PRN [place] CONSTIPATION; Start 01/04/17 at 19:30 Lorazepam (Ativan) 0.5 mg Q6H PRN IV ANXIETY Last administered on 01/16/17 18: 28; Admin Dose 0.5 MG; Start 01/04/17 at 19:30 Hydralazine HCl (Apresoline) 10 mg Q6H PRN IV ELEVATED BLOOD PRESSURE; Start at 19:30 Nitroglycerin (Nitroglycerin (Sl Tab) 0.4 Mg) 1 tab Q5M PRN SL ANGINA; Start at 19:30 Phenobarbital (Luminal) 64.8 mg BID PO Last administered on 01/04/17 23:45; Admin Dose 64.8 MG; Start 01/04/17 at 21:00; Status Future Hold Topiramate (Topamax) 200 mg BID PO ; Start 01/05/17 at 21:00; Status Future Hold Miscellaneous Information 1 ea NOTE XX ; Start 01/04/17 at 19:30 Glucose (Glutose) 15 gm Q15M PRN PO DECREASED GLUCOSE; Start 01/04/17 at 19:30 Glucose (Glutose) 22.5 gm Q15M PRN PO DECREASED GLUCOSE; Start 01/04/17 at 19:30 Dextrose (D50w Syringe) 25 ml Q15M PRN IV DECREASED GLUCOSE Last administered on 01/08/17 05:36; Admin Dose 25 ML; Start 01/04/17 at 19:30 Dextrose (D50w Syringe) 50 ml Q15M PRN IV DECREASED GLUCOSE; Start 01/04/17 at 19:30 Glucagon (Glucagen) 1 mg Q15M PRN IM DECREASED GLUCOSE; Start 01/04/17 at 19:30 Glucose (Glutose) 15 gm Q15M PRN BUCCAL DECREASED GLUCOSE; Start 01/04/17 at 19: 30 Phenytoin (Dilantin Susp Cup) 100 mg TID PO Last administered on 01/04/17 23:44 ; Admin Dose 100 MG; Start 01/04/17 at 21:50; Status Future Hold Clonazepam 0.5 mg 0.5 mg Q8H PO Last administered on 01/04/17 23:45; Admin Dose 0.5 MG; Start 01/04/17 at 23:00; Status Future Hold Norepinephrine 16 mg/Dextrose 500 ml @ 1.87 mls/hr TITRATE IV Last administered on 01/07/17 00:23; Admin Dose 15 MLS/HR; Start 01/05/17 at 00:30 Fentanyl 100 ml @ 2.5 mls/hr TITRATE IV Last administered on 01/19/17 14:34; Admin Dose 7.5 MLS/HR; Start 01/05/17 at 08:39 Midazolam HCl 50 ml @ 1 mls/hr TITRATE IV Last administered on 01/19/17 14:34 ; Admin Dose 10 MLS/HR; Start 01/05/17 at 08:41 Levetiracetam 100 ml @ 400 mls/hr Q12 IVPB Last administered on 01/19/17 08: 36; Admin Dose 400 MLS/HR; Start 01/05/17 at 11:30 Vasopressin 60 unit/Dextrose 60 ml @ 1.2 mls/hr Q12H IV Last administered on 22:32; Admin Dose 2.4 MLS/HR; Start 01/05/17 at 17:30 Epinephrine 4 mg/ Sodium Chloride 250 ml @ 0 mls/hr TITRATE IV ; Start 01/05/17 at 18:30 Phenylephrine HCl/ Dextrose (Robert-Syneph/D5W) 500 ml @ 18.75 mls/ hr TITRATE IV Last administered on 01/07/17 23:21; Admin Dose 26.25 MLS/HR; Start 01/05/17 at 20:30 Acetaminophen (Tylenol Liquid) 650 mg Q4H PRN NGT PAIN AND OR ELEVATED TEMP Last administered on 01/19/17 02:52; Admin Dose 650 MG; Start 01/06/17 at 04:30 Insulin Glargine 10 unit 10 unit DAILY SC Last administered on 01/07/17 08:19; Admin Dose 10 UNIT; Start 01/06/17 at 14:00; Status Future Hold Acetaminophen (Ofirmev 1000mg/ 100ml Iv) 100 ml @ 400 mls/hr Q6H PRN IVPB FEVER Last administered on 01/16/17 11:35; Admin Dose 400 MLS/HR; Start at 06:30 IV Flush (NS 10 ml) 10 ml PRN PRN IV IV PROTOCOL; Start 01/10/17 at 11:30 Amiodarone HCl (Cordarone) 200 mg BID GTB Last administered on 01/19/17 08:32 ; Admin Dose 200 MG; Start 01/11/17 at 12:00 Diagnostic Test (Pha) (Accu-Chek) 1 ea Q4H XX Last administered on 01/19/17 12 :56; Admin Dose 1 EA; Start 01/11/17 at 17:00 Epoetin Mina (Epogen (Esrd)) 10,000 units MoWeFr@17 SC Last administered on 18:30; Admin Dose 10,000 UNITS; Start 01/13/17 at 17:00 Insulin Aspart (Adult SC Insulin - Moder... Q4 SC Last administered on 21:08; Admin Dose 2 UNIT; Start 01/13/17 at 09:00 Meropenem/Sodium Chloride 50 ml @ 200 mls/hr Q12H IVPB Last administered on 08:36; Admin Dose 200 MLS/HR; Start 01/13/17 at 10:00 Pantoprazole 80 mg/Sodium Chloride 100 ml @ 10 mls/hr Q10H IV Last administered on 01/19/17 08:34; Admin Dose 10 MLS/HR; Start 01/14/17 at 06:00 Octreotide Acetate 500 mcg/ Sodium Chloride 50 ml @ 2.5 mls/hr Q20H IV Last administered on 01/19/17 08:30; Admin Dose 2.5 MLS/HR; Start 01/14/17 at 06:30 Vancomycin HCl (Vancocin) 250 ml @ 125 mls/hr Q72H IVPB Last administered on 06:01; Admin Dose 125 MLS/HR; Start 01/16/17 at 06:00 Metoprolol Tartrate (Lopressor) 25 mg BID PO Last administered on 01/19/17 08: 32; Admin Dose 25 MG; Start 01/15/17 at 15:00 Al Hydrox/Mg Hydrox/ Simethicone 30 ml 30 ml Q4 GTB Last administered on 12:23; Admin Dose 30 ML; Start 01/15/17 at 17:00 Caspofungin 50 mg/ Sodium Chloride 250 ml @ 250 mls/hr Q24H IVPB Last administered on 01/19/17 14:36; Admin Dose 250 MLS/HR; Start 01/17/17 at 14:30 Dextrose (D5W) 1,000 ml @ 150 mls/hr Q6H40M IV Last administered on 01/19/17 12:24; Admin Dose 150 MLS/HR; Start 01/18/17 at 08:30 Metoclopramide HCl 10 mg 10 mg Q6 IV Last administered on 01/19/17 05:52; Admin Dose 10 MG; Start 01/18/17 at 12:00 Total Parenteral Nutrition (Tpn) 1,000 ml @ 75 mls/hr [id number] IV Last administered on 01/19/17t 08:33; Admin Dose 75 MLS/HR; Start 01/18/17 at 19:00 Vlad Leyva DO Jan 19, 2017 15:32
[2017-01-19] MEDS ORDERED: PHENYLephrine 20MG IN 250 ML 250 ML ONE (18:10)
[2017-01-19] MEDS: PHENYLephrine 160 MG in DEXTROSE 5% 484 ML IV SCH (18:24)
[2017-01-19 21:16] LABS: CALCIUM 7.1 mg/dl (8.4-10.2); CREATININE 2.34 mg/dl (0.44-1.00); POTASSIUM 4.1 mmol/L (3.5-5.1)
[2017-01-20] VITALS (52 sets, daily range): BP systolic 74–129; BP diastolic 53–79; PULSE 79–116; RESP 20–30
[2017-01-20] MEDS: AL HYDROX/MG HYDROX/SIMETH 30 ML CUP GTB SCH ×6 (00:35→20:10)
[2017-01-20] MEDS: METOCLOPRAMIDE 10 MG INJ IV SCH ×4 (00:35→18:41)
[2017-01-20] MEDS: FENTAnyl (DRIP) 1000 mcg/100mL 100 ML IV SCH ×3 (00:35→23:50)
[2017-01-20] MEDS: DEXTROSE 5% 1,000 ML IV SCH ×4 (00:38→20:44)
[2017-01-20] MEDS: ACETAMINOPHEN 1000MG/100ML IV 100 ML IVPB PRN (00:55)
[2017-01-20] MEDS: Insulin NOVOLOG SS MODERATE Algorithm(NPO/TPN/ENTERAL FEEDS) SC SCH ×6 (01:00→21:00)
[2017-01-20] MEDS: ACCU-CHEK XX SCH ×6 (01:23→21:00)
[2017-01-20] MEDS: PHENYLephrine 160 MG in DEXTROSE 5% 484 ML IV SCH (02:34)
[2017-01-20] MEDS: MIDAZOLAM (DRIP) 50 mg/50 mL 50 ML IV SCH ×3 (04:57→23:50)
[2017-01-20 05:16] LABS: ADD SCAN DIFF NO
[2017-01-20] MEDS: LORAZEPAM 2 MG INJ IV PRN (05:25)
[2017-01-20] MEDS: VASOPRESSIN 60 UNIT in DEXTROSE 5% 57 ML IV SCH ×2 (05:30→17:30)
[2017-01-20 05:37] LABS: INR 1.34; PROTIME 16.7 Sec (12.2-14.2); PT RATIO 1.3
[2017-01-20 06:26] LABS: PHOSPHORUS 3.4 mg/dl (2.5-4.9)
[2017-01-20 06:27] LABS: ALBUMIN 2.3 g/dl (3.3-4.9); ALBUMIN/GLOBULIN RATIO 0.56; BILIRUBIN,INDIRECT 0.2 mg/dl (0-1.1); BILIRUBIN,TOTAL 0.2 mg/dl (0.2-1.3); CALCIUM 7.8 mg/dl (8.4-10.2); CREATININE 2.54 mg/dl (0.44-1.00); POTASSIUM 3.9 mmol/L (3.5-5.1); TOTAL PROTEIN 6.4 g/dl (6.1-8.1)
[2017-01-20] MEDS: AMIODARONE 200 MG TAB GTB SCH ×2 (08:06→20:10)
[2017-01-20] MEDS: METOPROLOL 25 MG TAB PO SCH ×2 (08:07→20:11)
--- NOTE | 2017-01-20 08:19 | RADRPT ---
PROCEDURE: XR Chest. CLINICAL INDICATION: Pneumonia/CHF TECHNIQUE: Single frontal view of the chest was obtained COMPARISON: Chest x-ray 01/19/2017 FINDINGS: The endotracheal tube, nasogastric tube, and right PICC line appear stable positions. Left lateral chest wall implanted electrode device and wires are unchanged. The cardiomediastinal silhouette is within normal limits. There are persistent low lung volumes with compressive changes at both lung bases. Hazy opacity at the right lung base persists and likely represents a small partially layering right pleural effusion. Underlying atelectasis and / or consolidation cannot be excluded. No significant left pleural effusion. No pneumothorax or new parenchymal consolidation is identifie d. No evidence of significant pulmonary vascular congestion. The osseous structures, as visualized, are unremarkable. IMPRESSION: Stable hazy opacity at the right lung base suggestive of a small partially layering right pleural ef fusion. Underlying atelectasis and / or consolidation cannot be completely excluded. RPTAT: PP Physician Domingo Date Time Electronically viewed and signed by Physician Domingo on 01/20/2017 08:18 AYANNA/
[2017-01-20] MEDS: BALSAM PERU/CASTOR OIL 60 GM TUBE TOP SCH (08:21)
[2017-01-20] MEDS: MEROPENEM 500MG/50 ML (PMX) 50 ML IVPB SCH ×2 (08:22→20:44)
[2017-01-20] MEDS: LEVETIRACETAM 1000 MG (PMX) 100 ML IVPB SCH ×2 (08:23→20:16)
--- NOTE | 2017-01-20 08:28 | CONS ---
Date/Time of Note Date/Time of Note DATE: 01/20/17 TIME: 08:19 Assessment/Plan Assessment/Plan Chief Complaint/Hosp Course 1. Acute renal failure. The renal failure is due to hypotension and acute pancreatitis. Now requiring hemodialysis. She had hemodialysis yesterday. I will order the next hemodialysis treatment for tomorrow. 2. She is scheduled for a tracheostomy and a PEG tube placement today. 3. History of seizure disorder 4. History of psychiatric disorder. 5. Respiratory failure, ventilator dependent 6. Hypotension requiring pressors 7. Anemia 8. Paroxysmal atrial fibrillation. Problems: Consultation Date/Type/Reason Admit Date/Time Jan 04, 2017 at 19:10 Initial Consult Date 01/11/17 Type of Consultation: renal Referring Provider: YING CASTAÑEDA 24 HR Interval Summary Free Text/Dictation This patient is being seen in the intensive care unit. She is intubated on a ventilator. The patient seems awake and does open her eyes to verbal stimuli. She is on a pressor to support her blood pressure. Subjective hx not possible: pt non-verbal Exam/Review of Systems Vital Signs Vitals Vital Signs Date Time Temp Pulse Resp B/P Pulse Ox O2 Delivery O2 Flow Rate FiO2 01/20/17 06:15 23 95/63 100 Mechanical Ventilator 01/20/17 04:57 98 30 01/20/17 04:00 100.7 Intake and Output 01/19/17 01/19/17 01/20/17 15:00 23:00 07:00 Intake Total 1907.0 ml 1971.25 ml 1857.49 ml Output Total 4100 ml 1460 ml 1150 ml Balance -2193.0 ml 511.25 ml 707.49 ml Exam Constitutional: alert, non-verbal Respiratory: clear to auscultation, diminished breath sounds Cardiovascular: edema, regular rate and rhythm Gastrointestinal: soft Extremities: edema Results Result Diagram: 01/20/17 0445 01/20/17 0445 Results 24 hrs Laboratory Tests Test 01/19/17 08:46 01/19/17 12:31 01/19/17 17:34 01/19/17 20:14 Bedside Glucose 113 98 130 Sodium Level 142 Potassium Level 4.1 Chloride Level 110 Carbon Dioxide Level 20 L Anion Gap 16 Blood Urea Nitrogen 56 H Creatinine 2.34 H Glucose Level 102 Calcium Level 7.1 L Test 01/19/17 22:02 01/20/17 01:22 01/20/17 04:45 01/20/17 05:29 Bedside Glucose 127 113 111 Platelet Count 412 # Prothrombin Time 16.7 H Prothrombin Time Ratio 1.3 INR International Normalized Ratio 1.34 Activated Partial Thromboplast Time 40.0 H Thrombin Time Pending Sodium Level 140 Potassium Level 3.9 Chloride Level 106 Carbon Dioxide Level 22 Anion Gap 16 Blood Urea Nitrogen 58 H Creatinine 2.54 H Glucose Level 118 Calcium Level 7.8 L Phosphorus Level 3.4 Magnesium Level 2.0 Total Bilirubin 0.2 Direct Bilirubin 0.00 Indirect Bilirubin 0.2 Aspartate Amino Transf (AST/SGOT) 75 H Alanine Aminotransferase (ALT/SGPT) 35 Alkaline Phosphatase 351 H Total Protein 6.4 Albumin 2.3 L Globulin 4.10 H Albumin/Globulin Ratio 0.56 Medications Medications Current Medications Ondansetron HCl (Zofran Inj) 4 mg Q6H PRN IV NAUSEA AND/OR VOMITING; Start 01/04 at 19:30 Acetaminophen/ Hydrocodone Bitart ([place] (5/325)) 1 tab Q6H PRN PO MODERATE PAIN LEVEL 4-6; Start 01/04/17 at 19:30 Morphine Sulfate (morphine) 2 mg Q4H PRN IV SEVERE PAIN LEVEL 7-10 Last administered on 01/18/17 02:05; Admin Dose 2 MG; Start 01/04/17 at 19:30 Docusate Sodium (Colace) 100 mg Q12H PRN PO CONSTIPATION; Start 01/04/17 at 19: 30 Magnesium Hydroxide (Milk Of Mag) 30 ml DAILY PRN PO CONSTIPATION; Start at 19:30 Sodium Biphosphate/ Sodium Phosphate (Fleet Enema) 133 ml DAILY PRN [place] CONSTIPATION; Start 01/04/17 at 19:30 Lorazepam (Ativan) 0.5 mg Q6H PRN IV ANXIETY Last administered on 01/20/17 05: 25; Admin Dose 0.5 MG; Start 01/04/17 at 19:30 Hydralazine HCl (Apresoline) 10 mg Q6H PRN IV ELEVATED BLOOD PRESSURE; Start at 19:30 Nitroglycerin (Nitroglycerin (Sl Tab) 0.4 Mg) 1 tab Q5M PRN SL ANGINA; Start at 19:30 Phenobarbital (Luminal) 64.8 mg BID PO Last administered on 01/04/17 23:45; Admin Dose 64.8 MG; Start 01/04/17 at 21:00; Status Future Hold Topiramate (Topamax) 200 mg BID PO ; Start 01/05/17 at 21:00; Status Future Hold Miscellaneous Information 1 ea NOTE XX ; Start 01/04/17 at 19:30 Glucose (Glutose) 15 gm Q15M PRN PO DECREASED GLUCOSE; Start 01/04/17 at 19:30 Glucose (Glutose) 22.5 gm Q15M PRN PO DECREASED GLUCOSE; Start 01/04/17 at 19:30 Dextrose (D50w Syringe) 25 ml Q15M PRN IV DECREASED GLUCOSE Last administered on 01/08/17 05:36; Admin Dose 25 ML; Start 01/04/17 at 19:30 Dextrose (D50w Syringe) 50 ml Q15M PRN IV DECREASED GLUCOSE; Start 01/04/17 at 19:30 Glucagon (Glucagen) 1 mg Q15M PRN IM DECREASED GLUCOSE; Start 01/04/17 at 19:30 Glucose (Glutose) 15 gm Q15M PRN BUCCAL DECREASED GLUCOSE; Start 01/04/17 at 19: 30 Phenytoin (Dilantin Susp Cup) 100 mg TID PO Last administered on 01/04/17 23:44 ; Admin Dose 100 MG; Start 01/04/17 at 21:50; Status Future Hold Clonazepam 0.5 mg 0.5 mg Q8H PO Last administered on 01/04/17 23:45; Admin Dose 0.5 MG; Start 01/04/17 at 23:00; Status Future Hold Norepinephrine 16 mg/Dextrose 500 ml @ 1.87 mls/hr TITRATE IV Last administered on 01/07/17 00:23; Admin Dose 15 MLS/HR; Start 01/05/17 at 00:30 Fentanyl 100 ml @ 2.5 mls/hr TITRATE IV Last administered on 01/20/17 00:35; Admin Dose 10 MLS/HR; Start 01/05/17 at 08:39 Midazolam HCl 50 ml @ 1 mls/hr TITRATE IV Last administered on 01/20/17 04:57 ; Admin Dose 10 MLS/HR; Start 01/05/17 at 08:41 Levetiracetam 100 ml @ 400 mls/hr Q12 IVPB Last administered on 01/19/17 22: 09; Admin Dose 400 MLS/HR; Start 01/05/17 at 11:30 Vasopressin 60 unit/Dextrose 60 ml @ 1.2 mls/hr Q12H IV Last administered on 22:32; Admin Dose 2.4 MLS/HR; Start 01/05/17 at 17:30 Epinephrine 4 mg/ Sodium Chloride 250 ml @ 0 mls/hr TITRATE IV ; Start 01/05/17 at 18:30 Phenylephrine HCl/ Dextrose (Robert-Syneph/D5W) 500 ml @ 18.75 mls/ hr TITRATE IV Last administered on 01/20/17 02:34; Admin Dose 1.87 MLS/HR; Start 01/05/17 at 20:30 Acetaminophen (Tylenol Liquid) 650 mg Q4H PRN NGT PAIN AND OR ELEVATED TEMP Last administered on 01/19/17 17:32; Admin Dose 650 MG; Start 01/06/17 at 04:30 Insulin Glargine 10 unit 10 unit DAILY SC Last administered on 01/07/17 08:19; Admin Dose 10 UNIT; Start 01/06/17 at 14:00; Status Future Hold Acetaminophen (Ofirmev 1000mg/ 100ml Iv) 100 ml @ 400 mls/hr Q6H PRN IVPB FEVER Last administered on 01/20/17 00:55; Admin Dose 400 MLS/HR; Start at 06:30 IV Flush (NS 10 ml) 10 ml PRN PRN IV IV PROTOCOL; Start 01/10/17 at 11:30 Amiodarone HCl (Cordarone) 200 mg BID GTB Last administered on 01/19/17 22:09 ; Admin Dose 200 MG; Start 01/11/17 at 12:00 Diagnostic Test (Pha) (Accu-Chek) 1 ea Q4H XX Last administered on 01/20/17 05 :30; Admin Dose 1 EA; Start 01/11/17 at 17:00 Epoetin Mina (Epogen (Esrd)) 10,000 units [id number]@17 SC Last administered on 18:30; Admin Dose 10,000 UNITS; Start 01/13/17 at 17:00 Insulin Aspart (Adult SC Insulin - Moder... Q4 SC Last administered on 21:08; Admin Dose 2 UNIT; Start 01/13/17 at 09:00 Meropenem/Sodium Chloride 50 ml @ 200 mls/hr Q12H IVPB Last administered on 22:09; Admin Dose 200 MLS/HR; Start 01/13/17 at 10:00 Pantoprazole 80 mg/Sodium Chloride 100 ml @ 10 mls/hr Q10H IV Last administered on 01/19/17 23:18; Admin Dose 10 MLS/HR; Start 01/14/17 at 06:00 Octreotide Acetate 500 mcg/ Sodium Chloride 50 ml @ 2.5 mls/hr Q20H IV Last administered on 01/19/17 23:18; Admin Dose 2.5 MLS/HR; Start 01/14/17 at 06:30 Vancomycin HCl (Vancocin) 250 ml @ 125 mls/hr Q72H IVPB Last administered on 06:01; Admin Dose 125 MLS/HR; Start 01/16/17 at 06:00 Metoprolol Tartrate (Lopressor) 25 mg BID PO Last administered on 01/19/17 08: 32; Admin Dose 25 MG; Start 01/15/17 at 15:00 Al Hydrox/Mg Hydrox/ Simethicone 30 ml 30 ml Q4 GTB Last administered on 05:37; Admin Dose 30 ML; Start 01/15/17 at 17:00 Caspofungin 50 mg/ Sodium Chloride 250 ml @ 250 mls/hr Q24H IVPB Last administered on 01/19/17 14:36; Admin Dose 250 MLS/HR; Start 01/17/17 at 14:30 Dextrose (D5W) 1,000 ml @ 150 mls/hr Q6H40M IV Last administered on 01/20/17 00:38; Admin Dose 150 MLS/HR; Start 01/18/17 at 08:30 Metoclopramide HCl 10 mg 10 mg Q6 IV Last administered on 01/20/17 05:38; Admin Dose 10 MG; Start 01/18/17 at 12:00 Total Parenteral Nutrition (Tpn) 1,000 ml @ 75 mls/hr [id number] IV Last administered on 01/19/17t 22:04; Admin Dose 75 MLS/HR; Start 01/18/17 at 19:00 REENA SCHAEFER MD Jan 20, 2017 08:28
[2017-01-20 09:29] LABS: ADD SCAN DIFF NO
[2017-01-20 09:32] LABS: ABNORMAL IP MESSAGE 1; HEMATOCRIT 26.9 % (37.0-47.0); HEMOGLOBIN 8.5 g/dl (12.0-16.0); MEAN CORPUSCULAR HEMOGLOBIN 30.2 pg (29.0-33.0); MEAN CORPUSCULAR HGB CONC 31.6 g/dl (32.0-37.0); MEAN CORPUSCULAR VOLUME 95.7 fl (82.0-101.0); MEAN PLATELET VOLUME 11.1 fl (7.4-10.4); PLATELET COUNT 393 10^3/UL (140-415); RED BLOOD COUNT 2.81 10^6/ul (4.20-5.40); RED CELL DISTRIBUTION WIDTH 16.3 % (11.5-14.5); WHITE BLOOD COUNT 23.5 10^3/ul (4.8-10.8)
[2017-01-20 11:21] LABS: BASOPHIL # 0.2 10^3/ul (0.0-0.1); EOSINOPHILS # 0.2 10^3/ul (0.0-0.5); LYMPHOCYTES # 3.1 10^3/ul (0.8-2.9); METAMYELOCYTES %M 2 % (0-0); MONOCYTE # 0.7 10^3/ul (0.3-0.9); MYELOCYTES # 0.7; NEUTROPHIL # 16.2 10^3/ul (1.6-7.5); PROMYELOCYTES % (M) 2 % (0-0)
--- NOTE | 2017-01-20 11:30 | CONS ---
Date/Time of Note Date/Time of Note DATE: 01/20/17 TIME: 11:29 Consult Date/Type/Reason Admit Date/Time Jan 04, 2017 at 19:10 Initial Consult Date 01/05/17 Type of Consultation: Pulmonary Ordering Provider: YING CASTAÑEDA Subjective Patient remains comfortable opens eyes follows simple commands on mechanical ventilation. Scheduled for tracheostomy. Objective Vital Signs Date Time Temp Pulse Resp B/P Pulse Ox O2 Delivery O2 Flow Rate FiO2 01/20/17 08:45 20 128/74 100 01/20/17 08:00 103 01/20/17 08:00 99.8 Mechanical Ventilator 01/20/17 04:57 30 Intake and Output 01/19/17 01/19/17 01/20/17 15:00 23:00 07:00 Intake Total 1907.0 ml 1971.25 ml 1857.49 ml Output Total 4100 ml 1460 ml 1300 ml Balance -2193.0 ml 511.25 ml 557.49 ml Exam PHYSICAL EXAMINATION GENERAL: Elderly [place] lady orally intubated appears comfortable at rest VITAL SIGNS: see below. HEENT: Pupils equal, round, and reactive to light. CARDIAC: S1, S2, 1/6 systolic ejection murmur CHEST: Diminished air entry bilaterally. Rales both lung bases ABDOMEN: Mildly distended. Bowel sounds present no guarding or rebound EXTREMITIES: No cyanosis, clubbing edema +1 NEUROLOGIC: Generalized weakness Results/Medications Result Diagram: 01/20/17 0922 01/20/17 0445 Results 24 hrs Laboratory Tests Test 01/19/17 12:31 01/19/17 17:34 01/19/17 20:14 01/19/17 22:02 Bedside Glucose 98 130 127 Sodium Level 142 Potassium Level 4.1 Chloride Level 110 Carbon Dioxide Level 20 L Anion Gap 16 Blood Urea Nitrogen 56 H Creatinine 2.34 H Glucose Level 102 Calcium Level 7.1 L Test 01/20/17 01:22 01/20/17 04:45 01/20/17 05:29 01/20/17 08:20 Bedside Glucose 113 111 119 Platelet Count 412 # Prothrombin Time 16.7 H Prothrombin Time Ratio 1.3 INR International Normalized Ratio 1.34 Activated Partial Thromboplast Time 40.0 H Thrombin Time 16.0 Sodium Level 140 Potassium Level 3.9 Chloride Level 106 Carbon Dioxide Level 22 Anion Gap 16 Blood Urea Nitrogen 58 H Creatinine 2.54 H Glucose Level 118 Calcium Level 7.8 L Phosphorus Level 3.4 Magnesium Level 2.0 Total Bilirubin 0.2 Direct Bilirubin 0.00 Indirect Bilirubin 0.2 Aspartate Amino Transf (AST/SGOT) 75 H Alanine Aminotransferase (ALT/SGPT) 35 Alkaline Phosphatase 351 H Total Protein 6.4 Albumin 2.3 L Globulin 4.10 H Albumin/Globulin Ratio 0.56 Test 01/20/17 09:22 White Blood Count 23.5 H Red Blood Count 2.81 L Hemoglobin 8.5 L Hematocrit 26.9 L Mean Corpuscular Volume 95.7 Mean Corpuscular Hemoglobin 30.2 Mean Corpuscular Hemoglobin Concent 31.6 L Red Cell Distribution Width 16.3 H Platelet Count 393 Mean Platelet Volume 11.1 H Neutrophils % 69.0 Band Neutrophils % 6.0 H Lymphocytes % 13.0 L Monocytes % 3.0 Eosinophils % 1.0 Basophils % 1.0 Metamyelocytes % (manual) 2 H Myelocytes % (Manual) 3.0 H Promyelocytes % (Manual) 2 H Neutrophils # 16.2 H Lymphocytes # 3.1 H Monocytes # 0.7 Eosinophils # 0.2 Basophils # 0.2 H Metamyelocytes # 0.5 Myelocytes # 0.7 Promyelocytes # 0.5 Medications Current Medications Ondansetron HCl (Zofran Inj) 4 mg Q6H PRN IV NAUSEA AND/OR VOMITING; Start 01/04 at 19:30 Acetaminophen/ Hydrocodone Bitart ([place] (5/325)) 1 tab Q6H PRN PO MODERATE PAIN LEVEL 4-6; Start 01/04/17 at 19:30 Morphine Sulfate (morphine) 2 mg Q4H PRN IV SEVERE PAIN LEVEL 7-10 Last administered on 01/18/17t 02:05; Admin Dose 2 MG; Start 01/04/17 at 19:30 Docusate Sodium (Colace) 100 mg Q12H PRN PO CONSTIPATION; Start 01/04/17 at 19: 30 Magnesium Hydroxide (Milk Of Mag) 30 ml DAILY PRN PO CONSTIPATION; Start at 19:30 Sodium Biphosphate/ Sodium Phosphate (Fleet Enema) 133 ml DAILY PRN [place] CONSTIPATION; Start 01/04/17 at 19:30 Lorazepam (Ativan) 0.5 mg Q6H PRN IV ANXIETY Last administered on 01/20/17 05: 25; Admin Dose 0.5 MG; Start 01/04/17 at 19:30 Hydralazine HCl (Apresoline) 10 mg Q6H PRN IV ELEVATED BLOOD PRESSURE; Start at 19:30 Nitroglycerin (Nitroglycerin (Sl Tab) 0.4 Mg) 1 tab Q5M PRN SL ANGINA; Start at 19:30 Phenobarbital (Luminal) 64.8 mg BID PO Last administered on 01/04/17 23:45; Admin Dose 64.8 MG; Start 01/04/17 at 21:00; Status Future Hold Topiramate (Topamax) 200 mg BID PO ; Start 01/05/17 at 21:00; Status Future Hold Miscellaneous Information 1 ea NOTE XX ; Start 01/04/17 at 19:30 Glucose (Glutose) 15 gm Q15M PRN PO DECREASED GLUCOSE; Start 01/04/17 at 19:30 Glucose (Glutose) 22.5 gm Q15M PRN PO DECREASED GLUCOSE; Start 01/04/17 at 19:30 Dextrose (D50w Syringe) 25 ml Q15M PRN IV DECREASED GLUCOSE Last administered on 01/08/17 05:36; Admin Dose 25 ML; Start 01/04/17 at 19:30 Dextrose (D50w Syringe) 50 ml Q15M PRN IV DECREASED GLUCOSE; Start 01/04/17 at 19:30 Glucagon (Glucagen) 1 mg Q15M PRN IM DECREASED GLUCOSE; Start 01/04/17 at 19:30 Glucose (Glutose) 15 gm Q15M PRN BUCCAL DECREASED GLUCOSE; Start 01/04/17 at 19: 30 Phenytoin (Dilantin Susp Cup) 100 mg TID PO Last administered on 01/04/17 23:44 ; Admin Dose 100 MG; Start 01/04/17 at 21:50; Status Future Hold Clonazepam 0.5 mg 0.5 mg Q8H PO Last administered on 01/04/17 23:45; Admin Dose 0.5 MG; Start 01/04/17 at 23:00; Status Future Hold Norepinephrine 16 mg/Dextrose 500 ml @ 1.87 mls/hr TITRATE IV Last administered on 01/07/17 00:23; Admin Dose 15 MLS/HR; Start 01/05/17 at 00:30 Fentanyl 100 ml @ 2.5 mls/hr TITRATE IV Last administered on 01/20/17 00:35; Admin Dose 10 MLS/HR; Start 01/05/17 at 08:39 Midazolam HCl 50 ml @ 1 mls/hr TITRATE IV Last administered on 01/20/17 04:57 ; Admin Dose 10 MLS/HR; Start 01/05/17 at 08:41 Levetiracetam 100 ml @ 400 mls/hr Q12 IVPB Last administered on 01/20/17 08: 23; Admin Dose 400 MLS/HR; Start 01/05/17 at 11:30 Vasopressin 60 unit/Dextrose 60 ml @ 1.2 mls/hr Q12H IV Last administered on 22:32; Admin Dose 2.4 MLS/HR; Start 01/05/17 at 17:30 Epinephrine 4 mg/ Sodium Chloride 250 ml @ 0 mls/hr TITRATE IV ; Start 01/05/17 at 18:30 Phenylephrine HCl/ Dextrose (Robert-Syneph/D5W) 500 ml @ 18.75 mls/ hr TITRATE IV Last administered on 01/20/17 02:34; Admin Dose 1.87 MLS/HR; Start 01/05/17 at 20:30 Acetaminophen (Tylenol Liquid) 650 mg Q4H PRN NGT PAIN AND OR ELEVATED TEMP Last administered on 01/19/17 17:32; Admin Dose 650 MG; Start 01/06/17 at 04:30 Insulin Glargine 10 unit 10 unit DAILY SC Last administered on 01/07/17 08:19; Admin Dose 10 UNIT; Start 01/06/17 at 14:00; Status Future Hold Acetaminophen (Ofirmev 1000mg/ 100ml Iv) 100 ml @ 400 mls/hr Q6H PRN IVPB FEVER Last administered on 01/20/17 00:55; Admin Dose 400 MLS/HR; Start at 06:30 IV Flush (NS 10 ml) 10 ml PRN PRN IV IV PROTOCOL; Start 01/10/17 at 11:30 Amiodarone HCl (Cordarone) 200 mg BID GTB Last administered on 01/20/17 08:06 ; Admin Dose 200 MG; Start 01/11/17 at 12:00 Diagnostic Test (Pha) (Accu-Chek) 1 ea Q4H XX Last administered on 01/20/17 08 :21; Admin Dose 1 EA; Start 01/11/17 at 17:00 Epoetin M[place] (Epogen (Esrd)) 10,000 units MoWeFr@17 SC Last administered on 18:30; Admin Dose 10,000 UNITS; Start 01/13/17 at 17:00 Insulin Aspart (Adult SC Insulin - Moder... Q4 SC Last administered on 21:08; Admin Dose 2 UNIT; Start 01/13/17 at 09:00 Meropenem/Sodium Chloride 50 ml @ 200 mls/hr Q12H IVPB Last administered on 08:22; Admin Dose 200 MLS/HR; Start 01/13/17 at 10:00 Pantoprazole 80 mg/Sodium Chloride 100 ml @ 10 mls/hr Q10H IV Last administered on 01/19/17 23:18; Admin Dose 10 MLS/HR; Start 01/14/17 at 06:00 Octreotide Acetate 500 mcg/ Sodium Chloride 50 ml @ 2.5 mls/hr Q20H IV Last administered on 01/19/17 23:18; Admin Dose 2.5 MLS/HR; Start 01/14/17 at 06:30 Vancomycin HCl (Vancocin) 250 ml @ 125 mls/hr Q72H IVPB Last administered on 06:01; Admin Dose 125 MLS/HR; Start 01/16/17 at 06:00 Metoprolol Tartrate (Lopressor) 25 mg BID PO Last administered on 01/20/17 08: 07; Admin Dose 25 MG; Start 01/15/17 at 15:00 Al Hydrox/Mg Hydrox/ Simethicone 30 ml 30 ml Q4 GTB Last administered on 08:06; Admin Dose 30 ML; Start 01/15/17 at 17:00 Caspofungin 50 mg/ Sodium Chloride 250 ml @ 250 mls/hr Q24H IVPB Last administered on 01/19/17 14:36; Admin Dose 250 MLS/HR; Start 01/17/17 at 14:30 Dextrose (D5W) 1,000 ml @ 150 mls/hr Q6H40M IV Last administered on 01/20/17 07:10; Admin Dose 150 MLS/HR; Start 01/18/17 at 08:30 Metoclopramide HCl 10 mg 10 mg Q6 IV Last administered on 01/20/17 05:38; Admin Dose 10 MG; Start 01/18/17 at 12:00 Total Parenteral Nutrition (Tpn) 1,000 ml @ 75 mls/hr [id number] IV Last administered on 01/19/17 22:04; Admin Dose 75 MLS/HR; Start 01/18/17 at 19:00 Assessment/Plan Chief Complaint/Hosp Course IMP: 1. Severe gallstone pancreatitis with septic shock, now slowly improving. Severe pancreatitis present on CT abdomen. Drop in hemoglobin. Questionable GI bleed. 2. Metabolic acidosis secondary to above and ARF 3. Renal failure likely ATN now requiring hemodialysis 4. 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 Status post thoracentesis right lung. Ongoing pulmonary edema and atelectasis on chest x-ray although radiographically improved. 5. History of seizure disorder 6. GI bleed status post endoscopy yesterday findings per chart. GI recommendations regarding jejunostomy tube RECS: 1. Hemodialysis today per nephrology 2. Continue mechanical ventilation, tracheostomy scheduled for today. 3. Broad-spectrum antibiotic coverage 4. Nasogastric tube to suction will discuss with GI can restart feeding. 5. GI recommendations. Continue supportive care. 6. Continue DVT and GI prophylaxis 35 min cc time Tracheostomy today. Problems: AMPARO VALERIO MD, [facility] Jan 20, 2017 11:30
--- NOTE | 2017-01-20 11:56 | CONS ---
Date/Time of Note Date/Time of Note DATE: 01/20/17 TIME: 11:54 Assessment/Plan Assessment/Plan Additional Assessment/Plan Paroxysmal atrial fibrillation, currently sinus rhythm Severe sepsis Acute pancreatitis status post ERCP Preserved ejection fraction Respiratory failure, vent dependent Acute kidney injury now on hemodialysis Seizure disorder Psychiatric disorder Acute blood loss anemia GI bleed status post clipping -Patient currently with sinus tachycardia. Would continue amiodarone to help maintain in sinus rhythm. No anticoagulation for atrial fibrillation given severe anemia and GI bleed. Fluid management as per our nephrology colleagues. Ideally, maintain potassium above 4.0 and magnesium above 2.0 to decrease arrhythmias. Consultation Date/Type/Reason Admit Date/Time Jan 04, 2017 at 19:10 Initial Consult Date 01/05/17 Type of Consultation: cv Referring Provider: YING CASTAÑEDA 24 HR Interval Summary Free Text/Dictation Patient seen and examined, no new cardiac issues as per nursing staff. Plan for tracheostomy today Exam/Review of Systems Vital Signs Vitals Vital Signs Date Time Temp Pulse Resp B/P Pulse Ox O2 Delivery O2 Flow Rate FiO2 01/20/17 08:45 20 128/74 100 01/20/17 08:00 103 01/20/17 08:00 99.8 Mechanical Ventilator 01/20/17 04:57 30 Intake and Output 01/19/17 01/19/17 01/20/17 15:00 23:00 07:00 Intake Total 1907.0 ml 1971.25 ml 1857.49 ml Output Total 4100 ml 1460 ml 1300 ml Balance -2193.0 ml 511.25 ml 557.49 ml Exam No apparent distress, family at bedside Head: normocephalic ENMT: intubated Respiratory: other (Coarse breath sounds bilaterally, no wheezing) Cardiovascular: other (S1-S2 heard), regular rate and rhythm Gastrointestinal: bowel sounds, non-tender, soft Extremities: edema Results Result Diagram: 01/20/17 0922 01/20/17 0445 Results 24 hrs Laboratory Tests Test 01/19/17 12:31 01/19/17 17:34 01/19/17 20:14 01/19/17 22:02 Bedside Glucose 98 130 127 Sodium Level 142 Potassium Level 4.1 Chloride Level 110 Carbon Dioxide Level 20 L Anion Gap 16 Blood Urea Nitrogen 56 H Creatinine 2.34 H Glucose Level 102 Calcium Level 7.1 L Test 01/20/17 01:22 01/20/17 04:45 01/20/17 05:29 01/20/17 08:20 Bedside Glucose 113 111 119 Platelet Count 412 # Prothrombin Time 16.7 H Prothrombin Time Ratio 1.3 INR International Normalized Ratio 1.34 Activated Partial Thromboplast Time 40.0 H Thrombin Time 16.0 Sodium Level 140 Potassium Level 3.9 Chloride Level 106 Carbon Dioxide Level 22 Anion Gap 16 Blood Urea Nitrogen 58 H Creatinine 2.54 H Glucose Level 118 Calcium Level 7.8 L Phosphorus Level 3.4 Magnesium Level 2.0 Total Bilirubin 0.2 Direct Bilirubin 0.00 Indirect Bilirubin 0.2 Aspartate Amino Transf (AST/SGOT) 75 H Alanine Aminotransferase (ALT/SGPT) 35 Alkaline Phosphatase 351 H Total Protein 6.4 Albumin 2.3 L Globulin 4.10 H Albumin/Globulin Ratio 0.56 Test 01/20/17 09:22 White Blood Count 23.5 H Red Blood Count 2.81 L Hemoglobin 8.5 L Hematocrit 26.9 L Mean Corpuscular Volume 95.7 Mean Corpuscular Hemoglobin 30.2 Mean Corpuscular Hemoglobin Concent 31.6 L Red Cell Distribution Width 16.3 H Platelet Count 393 Mean Platelet Volume 11.1 H Neutrophils % 69.0 Band Neutrophils % 6.0 H Lymphocytes % 13.0 L Monocytes % 3.0 Eosinophils % 1.0 Basophils % 1.0 Metamyelocytes % (manual) 2 H Myelocytes % (Manual) 3.0 H Promyelocytes % (Manual) 2 H Neutrophils # 16.2 H Lymphocytes # 3.1 H Monocytes # 0.7 Eosinophils # 0.2 Basophils # 0.2 H Metamyelocytes # 0.5 Myelocytes # 0.7 Promyelocytes # 0.5 Medications Medications Current Medications Ondansetron HCl (Zofran Inj) 4 mg Q6H PRN IV NAUSEA AND/OR VOMITING; Start 01/04 at 19:30 Acetaminophen/ Hydrocodone Bitart ([place] (5/325)) 1 tab Q6H PRN PO MODERATE PAIN LEVEL 4-6; Start 01/04/17 at 19:30 Morphine Sulfate (morphine) 2 mg Q4H PRN IV SEVERE PAIN LEVEL 7-10 Last administered on 01/18/17t 02:05; Admin Dose 2 MG; Start 01/04/17 at 19:30 Docusate Sodium (Colace) 100 mg Q12H PRN PO CONSTIPATION; Start 01/04/17 at 19: 30 Magnesium Hydroxide (Milk Of Mag) 30 ml DAILY PRN PO CONSTIPATION; Start at 19:30 Sodium Biphosphate/ Sodium Phosphate (Fleet Enema) 133 ml DAILY PRN [place] CONSTIPATION; Start 01/04/17 at 19:30 Lorazepam (Ativan) 0.5 mg Q6H PRN IV ANXIETY Last administered on 01/20/17 05: 25; Admin Dose 0.5 MG; Start 01/04/17 at 19:30 Hydralazine HCl (Apresoline) 10 mg Q6H PRN IV ELEVATED BLOOD PRESSURE; Start at 19:30 Nitroglycerin (Nitroglycerin (Sl Tab) 0.4 Mg) 1 tab Q5M PRN SL ANGINA; Start at 19:30 Phenobarbital (Luminal) 64.8 mg BID PO Last administered on 01/04/17 23:45; Admin Dose 64.8 MG; Start 01/04/17 at 21:00; Status Future Hold Topiramate (Topamax) 200 mg BID PO ; Start 01/05/17 at 21:00; Status Future Hold Miscellaneous Information 1 ea NOTE XX ; Start 01/04/17 at 19:30 Glucose (Glutose) 15 gm Q15M PRN PO DECREASED GLUCOSE; Start 01/04/17 at 19:30 Glucose (Glutose) 22.5 gm Q15M PRN PO DECREASED GLUCOSE; Start 01/04/17 at 19:30 Dextrose (D50w Syringe) 25 ml Q15M PRN IV DECREASED GLUCOSE Last administered on 01/08/17 05:36; Admin Dose 25 ML; Start 01/04/17 at 19:30 Dextrose (D50w Syringe) 50 ml Q15M PRN IV DECREASED GLUCOSE; Start 01/04/17 at 19:30 Glucagon (Glucagen) 1 mg Q15M PRN IM DECREASED GLUCOSE; Start 01/04/17 at 19:30 Glucose (Glutose) 15 gm Q15M PRN BUCCAL DECREASED GLUCOSE; Start 01/04/17 at 19: 30 Phenytoin (Dilantin Susp Cup) 100 mg TID PO Last administered on 01/04/17 23:44 ; Admin Dose 100 MG; Start 01/04/17 at 21:50; Status Future Hold Clonazepam 0.5 mg 0.5 mg Q8H PO Last administered on 01/04/17 23:45; Admin Dose 0.5 MG; Start 01/04/17 at 23:00; Status Future Hold Norepinephrine 16 mg/Dextrose 500 ml @ 1.87 mls/hr TITRATE IV Last administered on 01/07/17 00:23; Admin Dose 15 MLS/HR; Start 01/05/17 at 00:30 Fentanyl 100 ml @ 2.5 mls/hr TITRATE IV Last administered on 01/20/17 00:35; Admin Dose 10 MLS/HR; Start 01/05/17 at 08:39 Midazolam HCl 50 ml @ 1 mls/hr TITRATE IV Last administered on 01/20/17 04:57 ; Admin Dose 10 MLS/HR; Start 01/05/17 at 08:41 Levetiracetam 100 ml @ 400 mls/hr Q12 IVPB Last administered on 01/20/17 08: 23; Admin Dose 400 MLS/HR; Start 01/05/17 at 11:30 Vasopressin 60 unit/Dextrose 60 ml @ 1.2 mls/hr Q12H IV Last administered on 22:32; Admin Dose 2.4 MLS/HR; Start 01/05/17 at 17:30 Epinephrine 4 mg/ Sodium Chloride 250 ml @ 0 mls/hr TITRATE IV ; Start 01/05/17 at 18:30 Phenylephrine HCl/ Dextrose (Robert-Syneph/D5W) 500 ml @ 18.75 mls/ hr TITRATE IV Last administered on 01/20/17 02:34; Admin Dose 1.87 MLS/HR; Start 01/05/17 at 20:30 Acetaminophen (Tylenol Liquid) 650 mg Q4H PRN NGT PAIN AND OR ELEVATED TEMP Last administered on 01/19/17 17:32; Admin Dose 650 MG; Start 01/06/17 at 04:30 Insulin Glargine 10 unit 10 unit DAILY SC Last administered on 01/07/17 08:19; Admin Dose 10 UNIT; Start 01/06/17 at 14:00; Status Future Hold Acetaminophen (Ofirmev 1000mg/ 100ml Iv) 100 ml @ 400 mls/hr Q6H PRN IVPB FEVER Last administered on 01/20/17 00:55; Admin Dose 400 MLS/HR; Start at 06:30 IV Flush (NS 10 ml) 10 ml PRN PRN IV IV PROTOCOL; Start 01/10/17 at 11:30 Amiodarone HCl (Cordarone) 200 mg BID GTB Last administered on 01/20/17 08:06 ; Admin Dose 200 MG; Start 01/11/17 at 12:00 Diagnostic Test (Pha) (Accu-Chek) 1 ea Q4H XX Last administered on 01/20/17 08 :21; Admin Dose 1 EA; Start 01/11/17 at 17:00 Epoetin Mina (Epogen (Esrd)) 10,000 units [id number]@17 SC Last administered on 18:30; Admin Dose 10,000 UNITS; Start 01/13/17 at 17:00 Insulin Aspart (Adult SC Insulin - Moder... Q4 SC Last administered on 21:08; Admin Dose 2 UNIT; Start 01/13/17 at 09:00 Meropenem/Sodium Chloride 50 ml @ 200 mls/hr Q12H IVPB Last administered on 08:22; Admin Dose 200 MLS/HR; Start 01/13/17 at 10:00 Pantoprazole 80 mg/Sodium Chloride 100 ml @ 10 mls/hr Q10H IV Last administered on 01/19/17 23:18; Admin Dose 10 MLS/HR; Start 01/14/17 at 06:00 Octreotide Acetate 500 mcg/ Sodium Chloride 50 ml @ 2.5 mls/hr Q20H IV Last administered on 01/19/17 23:18; Admin Dose 2.5 MLS/HR; Start 01/14/17 at 06:30 Vancomycin HCl (Vancocin) 250 ml @ 125 mls/hr Q72H IVPB Last administered on 06:01; Admin Dose 125 MLS/HR; Start 01/16/17 at 06:00 Metoprolol Tartrate (Lopressor) 25 mg BID PO Last administered on 01/20/17 08: 07; Admin Dose 25 MG; Start 01/15/17 at 15:00 Al Hydrox/Mg Hydrox/ Simethicone 30 ml 30 ml Q4 GTB Last administered on 08:06; Admin Dose 30 ML; Start 01/15/17 at 17:00 Caspofungin 50 mg/ Sodium Chloride 250 ml @ 250 mls/hr Q24H IVPB Last administered on 01/19/17 14:36; Admin Dose 250 MLS/HR; Start 01/17/17 at 14:30 Dextrose (D5W) 1,000 ml @ 150 mls/hr Q6H40M IV Last administered on 01/20/17 07:10; Admin Dose 150 MLS/HR; Start 01/18/17 at 08:30 Metoclopramide HCl 10 mg 10 mg Q6 IV Last administered on 01/20/17 05:38; Admin Dose 10 MG; Start 01/18/17 at 12:00 Total Parenteral Nutrition (Tpn) 1,000 ml @ 75 mls/hr [id number] IV Last administered on 01/19/17 22:04; Admin Dose 75 MLS/HR; Start 01/18/17 at 19:00 Vlad Leyva DO Jan 20, 2017 11:55
[2017-01-20] MEDS: TPN 1,000 ML IV SCH (12:08)
[2017-01-20 12:33] LABS: ABNORMAL IP MESSAGE 1; BASOPHIL # 0.1 10^3/ul (0.0-0.1); BASOPHILS % 0.3 % (0.0-2.0); EOSINOPHILS # 0.2 10^3/ul (0.0-0.5); EOSINOPHILS % 0.8 % (0.0-7.0); HEMATOCRIT 24.9 % (37.0-47.0); HEMOGLOBIN 7.6 g/dl (12.0-16.0); LYMPHOCYTES # 1.9 10^3/ul (0.8-2.9); LYMPHOCYTES % 8.7 % (15.0-51.0); MEAN CORPUSCULAR HEMOGLOBIN 29.5 pg (29.0-33.0); MEAN CORPUSCULAR HGB CONC 30.5 g/dl (32.0-37.0); MEAN CORPUSCULAR VOLUME 96.5 fl (82.0-101.0); MEAN PLATELET VOLUME 11.1 fl (7.4-10.4); MONOCYTE # 1.2 10^3/ul (0.3-0.9); MONOCYTES % 5.3 % (0.0-11.0); NEUTROPHILS % 77.8 % (39.0-77.0); PLATELET COUNT 424 10^3/UL (140-415); RED BLOOD COUNT 2.58 10^6/ul (4.20-5.40); RED CELL DISTRIBUTION WIDTH 16.9 % (11.5-14.5); WHITE BLOOD COUNT 21.9 10^3/ul (4.8-10.8)
--- NOTE | 2017-01-20 12:47 | CONS ---
Date/Time of Note Date/Time of Note DATE: 01/20/17 TIME: 12:44 Assessment/Plan Assessment/Plan Chief Complaint/Hosp Course No acute changes patient is lying comfortably in bed, no fevers T-max 101.6 T-current 99.8 pulse 108 respirations 20 blood pressure 128/74 saturation 100 on FiO2 of 30 WBC 23.5 H&H 8.5 and 26.9 platelets 393 neutrophils 69 bands 6 lymphs 13 BN 58 creatinine 2.54 Blood cultures since January 17 remain negative urine culture growing Nella albicans Chest x-ray this morning revealed stable hazy opacity at the right lung base suggestive of a small partially layering right pleural effusion rule out underlying atelectasis or consolidation Indwelling's: Endotracheal tube NG tube Matias catheter right femoral Gael right upper extremity PICC line CT of the abdomen and pelvis on January 14 revealed severe pancreatitis with surrounding edema and fluid, worse than seen previously Antibiotics: Vancomycin, meropenem day #15 Cancidas day #6 Microbiology: Blood culture on admission grew coag negative staph species urine culture grew E. coli repeat blood and urine culture had been negative Physical examination: Chronically ill-appearing elderly woman who looks comfortable on vent. Head atraumatic normocephalic, sclera nonicteric. Neck is supple, trachea midline. Chest rise symmetrical, breath sounds diminished to bases Heart: S1, S2, tachycardic Abdomen soft bowel tones present. Extremities with trace edema, no cyanosis Assessment: 1. Severe sepsis with ongoing fevers and leukocytosis status post shock ==> r/ o line sepsis 2. Severe, acute pancreatitis, possibly developing pseudocyst 3. Choledocholithiasis, status post ERCP 01/12/17 with removal of the stone and stent placement 4. Coag negative staph bacteremia, likely contaminant 5. Acute respiratory failure 6. Acute renal failure requiring hemodialysis 7. Fungal urinary tract infection 8. Diarrhea, rule out C. difficile Plan: Clinically and hemodynamically stable, still with ongoing fevers, will add Flagyl, send stool for C. difficile, repeat blood cultures, consider femoral Gael DC, pulmonary/nephrology/ GI recommendations. Plan for tracheostomy and PEG placement Discussed with staff Problems: Consultation Date/Type/Reason Admit Date/Time Jan 04, 2017 at 19:10 Initial Consult Date 01/11/17 Type of Consultation: id Referring Provider: YING CASTAÑEDA Exam/Review of Systems Vital Signs Vitals Vital Signs Date Time Temp Pulse Resp B/P Pulse Ox O2 Delivery O2 Flow Rate FiO2 01/20/17 11:40 108 26 100 30 01/20/17 08:45 128/74 01/20/17 08:00 99.8 Mechanical Ventilator Intake and Output 01/19/17 01/19/17 01/20/17 15:00 23:00 07:00 Intake Total 1907.0 ml 1971.25 ml 1857.49 ml Output Total 4100 ml 1460 ml 1300 ml Balance -2193.0 ml 511.25 ml 557.49 ml Results Result Diagram: 01/20/17 0922 01/20/17 0445 Results 24 hrs Laboratory Tests Test 01/19/17 17:34 01/19/17 20:14 01/19/17 22:02 01/20/17 01:22 Bedside Glucose 130 127 113 Sodium Level 142 Potassium Level 4.1 Chloride Level 110 Carbon Dioxide Level 20 L Anion Gap 16 Blood Urea Nitrogen 56 H Creatinine 2.34 H Glucose Level 102 Calcium Level 7.1 L Test 01/20/17 04:45 01/20/17 05:29 01/20/17 08:20 01/20/17 09:22 Platelet Count 412 # 393 Prothrombin Time 16.7 H Prothrombin Time Ratio 1.3 INR International Normalized Ratio 1.34 Activated Partial Thromboplast Time 40.0 H Thrombin Time 16.0 Sodium Level 140 Potassium Level 3.9 Chloride Level 106 Carbon Dioxide Level 22 Anion Gap 16 Blood Urea Nitrogen 58 H Creatinine 2.54 H Glucose Level 118 Calcium Level 7.8 L Phosphorus Level 3.4 Magnesium Level 2.0 Total Bilirubin 0.2 Direct Bilirubin 0.00 Indirect Bilirubin 0.2 Aspartate Amino Transf (AST/SGOT) 75 H Alanine Aminotransferase (ALT/SGPT) 35 Alkaline Phosphatase 351 H Total Protein 6.4 Albumin 2.3 L Globulin 4.10 H Albumin/Globulin Ratio 0.56 Bedside Glucose 111 119 White Blood Count 23.5 H Red Blood Count 2.81 L Hemoglobin 8.5 L Hematocrit 26.9 L Mean Corpuscular Volume 95.7 Mean Corpuscular Hemoglobin 30.2 Mean Corpuscular Hemoglobin Concent 31.6 L Red Cell Distribution Width 16.3 H Mean Platelet Volume 11.1 H Neutrophils % 69.0 Band Neutrophils % 6.0 H Lymphocytes % 13.0 L Monocytes % 3.0 Eosinophils % 1.0 Basophils % 1.0 Metamyelocytes % (manual) 2 H Myelocytes % (Manual) 3.0 H Promyelocytes % (Manual) 2 H Neutrophils # 16.2 H Lymphocytes # 3.1 H Monocytes # 0.7 Eosinophils # 0.2 Basophils # 0.2 H Metamyelocytes # 0.5 Myelocytes # 0.7 Promyelocytes # 0.5 Medications Medications Current Medications Ondansetron HCl (Zofran Inj) 4 mg Q6H PRN IV NAUSEA AND/OR VOMITING; Start 01/04 at 19:30 Acetaminophen/ Hydrocodone Bitart ([place] (5/325)) 1 tab Q6H PRN PO MODERATE PAIN LEVEL 4-6; Start 01/04/17 at 19:30 Morphine Sulfate (morphine) 2 mg Q4H PRN IV SEVERE PAIN LEVEL 7-10 Last administered on 01/18/17 02:05; Admin Dose 2 MG; Start 01/04/17 at 19:30 Docusate Sodium (Colace) 100 mg Q12H PRN PO CONSTIPATION; Start 01/04/17 at 19: 30 Magnesium Hydroxide (Milk Of Mag) 30 ml DAILY PRN PO CONSTIPATION; Start at 19:30 Sodium Biphosphate/ Sodium Phosphate (Fleet Enema) 133 ml DAILY PRN [place] CONSTIPATION; Start 01/04/17 at 19:30 Lorazepam (Ativan) 0.5 mg Q6H PRN IV ANXIETY Last administered on 01/20/17 05: 25; Admin Dose 0.5 MG; Start 01/04/17 at 19:30 Hydralazine HCl (Apresoline) 10 mg Q6H PRN IV ELEVATED BLOOD PRESSURE; Start at 19:30 Nitroglycerin (Nitroglycerin (Sl Tab) 0.4 Mg) 1 tab Q5M PRN SL ANGINA; Start at 19:30 Phenobarbital (Luminal) 64.8 mg BID PO Last administered on 01/04/17 23:45; Admin Dose 64.8 MG; Start 01/04/17 at 21:00; Status Future Hold Topiramate (Topamax) 200 mg BID PO ; Start 01/05/17 at 21:00; Status Future Hold Miscellaneous Information 1 ea NOTE XX ; Start 01/04/17 at 19:30 Glucose (Glutose) 15 gm Q15M PRN PO DECREASED GLUCOSE; Start 01/04/17 at 19:30 Glucose (Glutose) 22.5 gm Q15M PRN PO DECREASED GLUCOSE; Start 01/04/17 at 19:30 Dextrose (D50w Syringe) 25 ml Q15M PRN IV DECREASED GLUCOSE Last administered on 01/08/17 05:36; Admin Dose 25 ML; Start 01/04/17 at 19:30 Dextrose (D50w Syringe) 50 ml Q15M PRN IV DECREASED GLUCOSE; Start 01/04/17 at 19:30 Glucagon (Glucagen) 1 mg Q15M PRN IM DECREASED GLUCOSE; Start 01/04/17 at 19:30 Glucose (Glutose) 15 gm Q15M PRN BUCCAL DECREASED GLUCOSE; Start 01/04/17 at 19: 30 Phenytoin (Dilantin Susp Cup) 100 mg TID PO Last administered on 01/04/17 23:44 ; Admin Dose 100 MG; Start 01/04/17 at 21:50; Status Future Hold Clonazepam 0.5 mg 0.5 mg Q8H PO Last administered on 01/04/17 23:45; Admin Dose 0.5 MG; Start 01/04/17 at 23:00; Status Future Hold Norepinephrine 16 mg/Dextrose 500 ml @ 1.87 mls/hr TITRATE IV Last administered on 01/07/17 00:23; Admin Dose 15 MLS/HR; Start 01/05/17 at 00:30 Fentanyl 100 ml @ 2.5 mls/hr TITRATE IV Last administered on 01/20/17 12:09; Admin Dose 10 MLS/HR; Start 01/05/17 at 08:39 Midazolam HCl 50 ml @ 1 mls/hr TITRATE IV Last administered on 01/20/17 12:09 ; Admin Dose 5 MLS/HR; Start 01/05/17 at 08:41 Levetiracetam 100 ml @ 400 mls/hr Q12 IVPB Last administered on 01/20/17 08: 23; Admin Dose 400 MLS/HR; Start 01/05/17 at 11:30 Vasopressin 60 unit/Dextrose 60 ml @ 1.2 mls/hr Q12H IV Last administered on 22:32; Admin Dose 2.4 MLS/HR; Start 01/05/17 at 17:30 Epinephrine 4 mg/ Sodium Chloride 250 ml @ 0 mls/hr TITRATE IV ; Start 01/05/17 at 18:30 Phenylephrine HCl/ Dextrose (Robert-Syneph/D5W) 500 ml @ 18.75 mls/ hr TITRATE IV Last administered on 01/20/17 02:34; Admin Dose 1.87 MLS/HR; Start 01/05/17 at 20:30 Acetaminophen (Tylenol Liquid) 650 mg Q4H PRN NGT PAIN AND OR ELEVATED TEMP Last administered on 01/19/17 17:32; Admin Dose 650 MG; Start 01/06/17 at 04:30 Insulin Glargine 10 unit 10 unit DAILY SC Last administered on 01/07/17 08:19; Admin Dose 10 UNIT; Start 01/06/17 at 14:00; Status Future Hold Acetaminophen (Ofirmev 1000mg/ 100ml Iv) 100 ml @ 400 mls/hr Q6H PRN IVPB FEVER Last administered on 01/20/17 00:55; Admin Dose 400 MLS/HR; Start at 06:30 IV Flush (NS 10 ml) 10 ml PRN PRN IV IV PROTOCOL; Start 01/10/17 at 11:30 Amiodarone HCl (Cordarone) 200 mg BID GTB Last administered on 01/20/17 08:06 ; Admin Dose 200 MG; Start 01/11/17 at 12:00 Diagnostic Test (Pha) (Accu-Chek) 1 ea Q4H XX Last administered on 01/20/17 12 :10; Admin Dose 1 EA; Start 01/11/17 at 17:00 Epoetin Mina (Epogen (Esrd)) 10,000 units [id number]@17 SC Last administered on 18:30; Admin Dose 10,000 UNITS; Start 01/13/17 at 17:00 Insulin Aspart (Adult SC Insulin - Moder... Q4 SC Last administered on 21:08; Admin Dose 2 UNIT; Start 01/13/17 at 09:00 Meropenem/Sodium Chloride 50 ml @ 200 mls/hr Q12H IVPB Last administered on 08:22; Admin Dose 200 MLS/HR; Start 01/13/17 at 10:00 Pantoprazole 80 mg/Sodium Chloride 100 ml @ 10 mls/hr Q10H IV Last administered on 01/19/17 23:18; Admin Dose 10 MLS/HR; Start 01/14/17 at 06:00 Octreotide Acetate 500 mcg/ Sodium Chloride 50 ml @ 2.5 mls/hr Q20H IV Last administered on 01/19/17 23:18; Admin Dose 2.5 MLS/HR; Start 01/14/17 at 06:30 Vancomycin HCl (Vancocin) 250 ml @ 125 mls/hr Q72H IVPB Last administered on 06:01; Admin Dose 125 MLS/HR; Start 01/16/17 at 06:00 Metoprolol Tartrate (Lopressor) 25 mg BID PO Last administered on 01/20/17 08: 07; Admin Dose 25 MG; Start 01/15/17 at 15:00 Al Hydrox/Mg Hydrox/ Simethicone 30 ml 30 ml Q4 GTB Last administered on 12:09; Admin Dose 30 ML; Start 01/15/17 at 17:00 Caspofungin 50 mg/ Sodium Chloride 250 ml @ 250 mls/hr Q24H IVPB Last administered on 01/19/17 14:36; Admin Dose 250 MLS/HR; Start 01/17/17 at 14:30 Dextrose (D5W) 1,000 ml @ 150 mls/hr Q6H40M IV Last administered on 01/20/17 07:10; Admin Dose 150 MLS/HR; Start 01/18/17 at 08:30 Metoclopramide HCl 10 mg 10 mg Q6 IV Last administered on 01/20/17 12:08; Admin Dose 10 MG; Start 01/18/17 at 12:00 Total Parenteral Nutrition (Tpn) 1,000 ml @ 75 mls/hr [id number] IV Last administered on 01/20/17 12:08; Admin Dose 75 MLS/HR; Start 01/18/17 at 19:00 MIKE TURCIOS NP Jan 20, 2017 12:47
--- NOTE | 2017-01-20 15:18 | PN ---
Date/Time of Note Date/Time of Note DATE: 01/20/17 TIME: 15:17 Assessment/Plan VTE Prophylaxis VTE Prophylaxis Intervention: SCD's Lines/Catheters IV Catheter Type (from Nrs): Peripheral IV Assessment/Plan Chief Complaint/Hosp Course 1. Severe systemic shock with multiorgan failure secondary to severe pancreatitis superimposed by sepsis secondary to staph bacteremia, bilateral pneumonia, E. coli UTI -Improved 2. Severe gallstone pancreatitis * Status post ERCP with sphincterectomy and removal of common bile duct stones, placement of common bile duct stent done January 13, 2017 3. Probable GI bleed as well as abdominal distention 4. Acute respiratory failure secondary to #1 patient remains ventilator dependent 5. Acute kidney injury secondary to #1 now requiring hemodialysis 6. Persistent tachycardia likely secondary to #1 on amiodarone 7. Bilateral pneumonia with bilateral effusions R> L which is likely reactive from #2 * persistent despite right-sided thoracentesis January 13, 2017 8. Normocytic normochromic anemia: Worsening 9. History of seizure disorder on Keppra 10. Chronic debility on TPN 11. Persistent tachycardia: Plan: Continue ICU monitoring and vent support and sedation as indicated Continue Protonix and DC octreotide drips, continue to hold anticoagulation, follow-up H&H, follow GI plan Continue antibiotics per ID Continue TPN as well as gentle fluid hydration Patient to have trach placement today and PEG tomorrow Appreciate cardiology input and management of tachycardia, patient is on amiodarone Closely monitor hemoglobin every 6 hours, transfuse as needed Continue Keppra for seizures Continue dialysis per renal Tachycardia is consistent with severe pancreatitis, Appreciate all consultants Further interventions per clinical course Prognosis remains guarded, family conference tomorrow to discuss PEG and trach Prophylaxis: SCDs/Protonix drip Problems: Subjective 24 Hr Interval Summary Subjective hx not possible: pt non-verbal Exam/Review of Systems Vital Signs Vitals Vital Signs Date Time Temp Pulse Resp B/P Pulse Ox O2 Delivery O2 Flow Rate FiO2 01/20/17 12:00 116 01/20/17 11:40 26 100 30 01/20/17 08:45 128/74 01/20/17 08:00 99.8 Mechanical Ventilator Intake and Output 01/19/17 01/19/17 01/20/17 15:00 23:00 07:00 Intake Total 1907.0 ml 1971.25 ml 1857.49 ml Output Total 4100 ml 1460 ml 1300 ml Balance -2193.0 ml 511.25 ml 557.49 ml Exam Constitutional: non-verbal Respiratory: clear to auscultation Cardiovascular: regular rate and rhythm Gastrointestinal: soft, No distended Musculoskeletal: nl extremities to inspection Results Result Diagram: 01/20/17 0922 01/20/17 0445 Results 24 hrs Laboratory Tests Test 01/19/17 17:34 01/19/17 20:14 01/19/17 22:02 01/20/17 01:22 Bedside Glucose 130 127 113 Sodium Level 142 Potassium Level 4.1 Chloride Level 110 Carbon Dioxide Level 20 L Anion Gap 16 Blood Urea Nitrogen 56 H Creatinine 2.34 H Glucose Level 102 Calcium Level 7.1 L Test 01/20/17 04:45 01/20/17 05:29 01/20/17 08:20 01/20/17 09:22 White Blood Count 21.9 H 23.5 H Red Blood Count 2.58 L 2.81 L Hemoglobin 7.6 L 8.5 L Hematocrit 24.9 L 26.9 L Mean Corpuscular Volume 96.5 95.7 Mean Corpuscular Hemoglobin 29.5 30.2 Mean Corpuscular Hemoglobin Concent 30.5 L 31.6 L Red Cell Distribution Width 16.9 H 16.3 H Platelet Count 412 # 393 Mean Platelet Volume 11.1 H 11.1 H Neutrophils % 77.8 H 69.0 Lymphocytes % 8.7 L 13.0 L Monocytes % 5.3 3.0 Eosinophils % 0.8 1.0 Basophils % 0.3 1.0 Neutrophils # 17.0 H 16.2 H Lymphocytes # 1.9 3.1 H Monocytes # 1.2 H 0.7 Eosinophils # 0.2 0.2 Basophils # 0.1 0.2 H Nucleated Red Blood Cells # 0.0 Prothrombin Time 16.7 H Prothrombin Time Ratio 1.3 INR International Normalized Ratio 1.34 Activated Partial Thromboplast Time 40.0 H Thrombin Time 16.0 Sodium Level 140 Potassium Level 3.9 Chloride Level 106 Carbon Dioxide Level 22 Anion Gap 16 Blood Urea Nitrogen 58 H Creatinine 2.54 H Glucose Level 118 Calcium Level 7.8 L Phosphorus Level 3.4 Magnesium Level 2.0 Total Bilirubin 0.2 Direct Bilirubin 0.00 Indirect Bilirubin 0.2 Aspartate Amino Transf (AST/SGOT) 75 H Alanine Aminotransferase (ALT/SGPT) 35 Alkaline Phosphatase 351 H Total Protein 6.4 Albumin 2.3 L Globulin 4.10 H Albumin/Globulin Ratio 0.56 Bedside Glucose 111 119 Band Neutrophils % 6.0 H Metamyelocytes % (manual) 2 H Myelocytes % (Manual) 3.0 H Promyelocytes % (Manual) 2 H Metamyelocytes # 0.5 Myelocytes # 0.7 Promyelocytes # 0.5 Test 01/20/17 12:03 Bedside Glucose 101 Medications Medications Current Medications Ondansetron HCl (Zofran Inj) 4 mg Q6H PRN IV NAUSEA AND/OR VOMITING; Start 01/04 at 19:30 Acetaminophen/ Hydrocodone Bitart ([place] (5/325)) 1 tab Q6H PRN PO MODERATE PAIN LEVEL 4-6; Start 01/04/17 at 19:30 Morphine Sulfate (morphine) 2 mg Q4H PRN IV SEVERE PAIN LEVEL 7-10 Last administered on 01/18/17 02:05; Admin Dose 2 MG; Start 01/04/17 at 19:30 Docusate Sodium (Colace) 100 mg Q12H PRN PO CONSTIPATION; Start 01/04/17 at 19: 30 Magnesium Hydroxide (Milk Of Mag) 30 ml DAILY PRN PO CONSTIPATION; Start at 19:30 Sodium Biphosphate/ Sodium Phosphate (Fleet Enema) 133 ml DAILY PRN OR CONSTIPATION; Start 01/04/17 at 19:30 Lorazepam (Ativan) 0.5 mg Q6H PRN IV ANXIETY Last administered on 01/20/17 05: 25; Admin Dose 0.5 MG; Start 01/04/17 at 19:30 Hydralazine HCl (Apresoline) 10 mg Q6H PRN IV ELEVATED BLOOD PRESSURE; Start at 19:30 Nitroglycerin (Nitroglycerin (Sl Tab) 0.4 Mg) 1 tab Q5M PRN SL ANGINA; Start at 19:30 Phenobarbital (Luminal) 64.8 mg BID PO Last administered on 01/04/17 23:45; Admin Dose 64.8 MG; Start 01/04/17 at 21:00; Status Future Hold Topiramate (Topamax) 200 mg BID PO ; Start 01/05/17 at 21:00; Status Future Hold Miscellaneous Information 1 ea NOTE XX ; Start 01/04/17 at 19:30 Glucose (Glutose) 15 gm Q15M PRN PO DECREASED GLUCOSE; Start 01/04/17 at 19:30 Glucose (Glutose) 22.5 gm Q15M PRN PO DECREASED GLUCOSE; Start 01/04/17 at 19:30 Dextrose (D50w Syringe) 25 ml Q15M PRN IV DECREASED GLUCOSE Last administered on 01/08/17 05:36; Admin Dose 25 ML; Start 01/04/17 at 19:30 Dextrose (D50w Syringe) 50 ml Q15M PRN IV DECREASED GLUCOSE; Start 01/04/17 at 19:30 Glucagon (Glucagen) 1 mg Q15M PRN IM DECREASED GLUCOSE; Start 01/04/17 at 19:30 Glucose (Glutose) 15 gm Q15M PRN BUCCAL DECREASED GLUCOSE; Start 01/04/17 at 19: 30 Phenytoin (Dilantin Susp Cup) 100 mg TID PO Last administered on 01/04/17 23:44 ; Admin Dose 100 MG; Start 01/04/17 at 21:50; Status Future Hold Clonazepam 0.5 mg 0.5 mg Q8H PO Last administered on 01/04/17 23:45; Admin Dose 0.5 MG; Start 01/04/17 at 23:00; Status Future Hold Norepinephrine 16 mg/Dextrose 500 ml @ 1.87 mls/hr TITRATE IV Last administered on 01/07/17 00:23; Admin Dose 15 MLS/HR; Start 01/05/17 at 00:30 Fentanyl 100 ml @ 2.5 mls/hr TITRATE IV Last administered on 01/20/17 12:09; Admin Dose 10 MLS/HR; Start 01/05/17 at 08:39 Midazolam HCl 50 ml @ 1 mls/hr TITRATE IV Last administered on 01/20/17 12:09 ; Admin Dose 5 MLS/HR; Start 01/05/17 at 08:41 Levetiracetam 100 ml @ 400 mls/hr Q12 IVPB Last administered on 01/20/17 08: 23; Admin Dose 400 MLS/HR; Start 01/05/17 at 11:30 Vasopressin 60 unit/Dextrose 60 ml @ 1.2 mls/hr Q12H IV Last administered on 22:32; Admin Dose 2.4 MLS/HR; Start 01/05/17 at 17:30 Epinephrine 4 mg/ Sodium Chloride 250 ml @ 0 mls/hr TITRATE IV ; Start 01/05/17 at 18:30 Phenylephrine HCl/ Dextrose (Robert-Syneph/D5W) 500 ml @ 18.75 mls/ hr TITRATE IV Last administered on 01/20/17 02:34; Admin Dose 1.87 MLS/HR; Start 01/05/17 at 20:30 Acetaminophen (Tylenol Liquid) 650 mg Q4H PRN NGT PAIN AND OR ELEVATED TEMP Last administered on 01/19/17 17:32; Admin Dose 650 MG; Start 01/06/17 at 04:30 Insulin Glargine 10 unit 10 unit DAILY SC Last administered on 01/07/17 08:19; Admin Dose 10 UNIT; Start 01/06/17 at 14:00; Status Future Hold Acetaminophen (Ofirmev 1000mg/ 100ml Iv) 100 ml @ 400 mls/hr Q6H PRN IVPB FEVER Last administered on 01/20/17 00:55; Admin Dose 400 MLS/HR; Start at 06:30 IV Flush (NS 10 ml) 10 ml PRN PRN IV IV PROTOCOL; Start 01/10/17 at 11:30 Amiodarone HCl (Cordarone) 200 mg BID GTB Last administered on 01/20/17 08:06 ; Admin Dose 200 MG; Start 01/11/17 at 12:00 Diagnostic Test (Pha) (Accu-Chek) 1 ea Q4H XX Last administered on 01/20/17 12 :10; Admin Dose 1 EA; Start 01/11/17 at 17:00 Epoetin Mina (Epogen (Esrd)) 10,000 units MoWeFr@17 SC Last administered on 18:30; Admin Dose 10,000 UNITS; Start 01/13/17 at 17:00 Insulin Aspart (Adult SC Insulin - Moder... Q4 SC Last administered on 21:08; Admin Dose 2 UNIT; Start 01/13/17 at 09:00 Meropenem/Sodium Chloride 50 ml @ 200 mls/hr Q12H IVPB Last administered on 08:22; Admin Dose 200 MLS/HR; Start 01/13/17 at 10:00 Pantoprazole 80 mg/Sodium Chloride 100 ml @ 10 mls/hr Q10H IV Last administered on 01/19/17 23:18; Admin Dose 10 MLS/HR; Start 01/14/17 at 06:00 Octreotide Acetate 500 mcg/ Sodium Chloride 50 ml @ 2.5 mls/hr Q20H IV Last administered on 01/19/17 23:18; Admin Dose 2.5 MLS/HR; Start 01/14/17 at 06:30 Vancomycin HCl (Vancocin) 250 ml @ 125 mls/hr Q72H IVPB Last administered on 06:01; Admin Dose 125 MLS/HR; Start 01/16/17 at 06:00 Metoprolol Tartrate (Lopressor) 25 mg BID PO Last administered on 01/20/17 08: 07; Admin Dose 25 MG; Start 01/15/17 at 15:00 Al Hydrox/Mg Hydrox/ Simethicone 30 ml 30 ml Q4 GTB Last administered on 12:09; Admin Dose 30 ML; Start 01/15/17 at 17:00 Caspofungin 50 mg/ Sodium Chloride 250 ml @ 250 mls/hr Q24H IVPB Last administered on 01/19/17 14:36; Admin Dose 250 MLS/HR; Start 01/17/17 at 14:30 Dextrose (D5W) 1,000 ml @ 150 mls/hr Q6H40M IV Last administered on 01/20/17 07:10; Admin Dose 150 MLS/HR; Start 01/18/17 at 08:30 Metoclopramide HCl 10 mg 10 mg Q6 IV Last administered on 01/20/17 12:08; Admin Dose 10 MG; Start 01/18/17 at 12:00 Total Parenteral Nutrition 1,000 ml @ 75 mls/hr [id number] IV Last administered on 01/20/17 12:08; Admin Dose 75 MLS/HR; Start 01/18/17 at 19:00 Metronidazole (Flagyl 500 Mg (Pmx)) 100 ml @ 100 mls/hr Q8 IVPB ; Start at 14:00 YING CASTAÑEDA Jan 20, 2017 15:18
[2017-01-20] MEDS: CASPOFUNGIN 50 MG in SOD CHLORIDE 0.9% 250 ML IVPB SCH (16:06)
[2017-01-20] MEDS: metroNIDAZOLE 500 MG/NS (PMX) 100 ML IVPB SCH ×2 (16:06→20:44)
[2017-01-20] MEDS ORDERED: LIDOCAINE 2% (SDV) 5 ML INJ ONE (16:09)
[2017-01-20] MEDS ORDERED: PROPOFOL 20 ML ONE (16:09)
[2017-01-20] MEDS ORDERED: MIDAZOLAM 1 MG/ML 2 ML INJ ONE (16:09)
[2017-01-20] MEDS ORDERED: EPHEDrine SULFATE 50 MG/5 ML SYG ONE (16:10)
[2017-01-20] MEDS ORDERED: PHENYLephrine (100 MCG/ML) 5ML SYG ONE (16:10)
[2017-01-20] MEDS ORDERED: FENTAnyl 50 MCG/ML VIAL ONE (16:10)
[2017-01-20] MEDS ORDERED: LIDOCAINE 1% (MDV) 20 ML INJ ONE (18:07)
[2017-01-20] MEDS: EPOETIN 10000 UNITS/1 ML INJ (ESRD) SC SCH (18:42)
--- NOTE | 2017-01-20 20:11 | OPR ---
Date/Time of Note Date/Time of Note DATE: 01/20/17 TIME: 20:09 Operative Report Procedure Date: Jan 20, 2017 Preoperative Diagnosis Respiratory failure Postoperative Diagnosis Respiratory failure Operation Performed Tracheostomy Surgeon: SAM GUTIERREZ MD Anesthesia: general, other Estimated Blood Loss: none Grafts/Implants None Complications: None Pt Condition Post Procedure: stable Operative\Procedure Findings Patient was placed supine position prepped and draped in usual sterile fashion 1 % lidocaine was used throughout the operation for local anesthesia . Timeout was called and I started Access was gained in the trachea anteriorly 1 fingerbreadth superior to the sternal notch 1 cm horizontal incision was made the trachea in the subcutaneous tissues were dilated using progressively larger dilators endotracheal tube was removed 8 cuffed tracheostomy tube advanced into the trachea secured to skin using 4 nylon sutures and a trach tie patient tolerated procedure well SAM GUTIERREZ MD Jan 20, 2017 20:10
[2017-01-20] MEDS: OCTREOTIDE 500 MCG in SOD CHLORIDE 0.9% 49 ML IV SCH (21:01)
[2017-01-20] MEDS: PANTOPRAZOLE IV 80 MG in SOD CHLORIDE 0.9% 100 ML IV SCH (21:01)
[2017-01-21] VITALS (31 sets, daily range): BP systolic 91–110; BP diastolic 59–69; PULSE 102–124; RESP 23–30
[2017-01-21] MEDS: AL HYDROX/MG HYDROX/SIMETH 30 ML CUP GTB SCH ×6 (00:28→20:39)
[2017-01-21] MEDS: METOCLOPRAMIDE 10 MG INJ IV SCH ×5 (00:35→23:40)
[2017-01-21] MEDS: TPN 1,000 ML IV SCH ×2 (00:35→13:40)
[2017-01-21] MEDS: Insulin NOVOLOG SS MODERATE Algorithm(NPO/TPN/ENTERAL FEEDS) SC SCH ×6 (00:36→21:00)
[2017-01-21] MEDS: ACCU-CHEK XX SCH ×6 (00:37→21:00)
[2017-01-21] MEDS: DEXTROSE 5% 1,000 ML IV SCH ×4 (03:10→22:23)
[2017-01-21] MEDS: metroNIDAZOLE 500 MG/NS (PMX) 100 ML IVPB SCH ×3 (05:19→22:23)
[2017-01-21] MEDS: VASOPRESSIN 60 UNIT in DEXTROSE 5% 57 ML IV SCH ×2 (05:30→16:58)
[2017-01-21 05:31] LABS: MAGNESIUM 2.3 mg/dl (1.7-2.5); PHOSPHORUS 3.2 mg/dl (2.5-4.9)
[2017-01-21 05:44] LABS: ABNORMAL IP MESSAGE 1; BASOPHILS % 0.2 % (0.0-2.0); EOSINOPHILS # 0.1 10^3/ul (0.0-0.5); EOSINOPHILS % 0.6 % (0.0-7.0); HEMATOCRIT 23.5 % (37.0-47.0); HEMOGLOBIN 7.3 g/dl (12.0-16.0); LYMPHOCYTES # 1.9 10^3/ul (0.8-2.9); LYMPHOCYTES % 10.2 % (15.0-51.0); MEAN CORPUSCULAR HEMOGLOBIN 29.2 pg (29.0-33.0); MEAN CORPUSCULAR HGB CONC 31.1 g/dl (32.0-37.0); MEAN PLATELET VOLUME 10.7 fl (7.4-10.4); MONOCYTE # 1.2 10^3/ul (0.3-0.9); MONOCYTES % 6.2 % (0.0-11.0); NEUTROPHIL # 14.6 10^3/ul (1.6-7.5); NEUTROPHILS % 77.5 % (39.0-77.0); PLATELET COUNT 429 10^3/UL (140-415); WHITE BLOOD COUNT 18.9 10^3/ul (4.8-10.8)
[2017-01-21 05:45] LABS: CALCIUM 7.9 mg/dl (8.4-10.2); CREATININE 2.65 mg/dl (0.44-1.00); POTASSIUM 5.4 mmol/L (3.5-5.1)
[2017-01-21 05:51] LABS: POSITIVE DIFF @See below
[2017-01-21] MEDS ORDERED: CEFAZOLIN 1 GM INJ ONE (07:00)
[2017-01-21] MEDS: AMIODARONE 200 MG TAB GTB SCH ×2 (08:16→20:39)
[2017-01-21] MEDS: METOPROLOL 25 MG TAB PO SCH ×2 (08:16→21:00)
[2017-01-21] MEDS: BALSAM PERU/CASTOR OIL 60 GM TUBE TOP SCH (08:16)
[2017-01-21] MEDS: PANTOPRAZOLE IV 80 MG in SOD CHLORIDE 0.9% 100 ML IV SCH (08:24)
[2017-01-21] MEDS: LEVETIRACETAM 1000 MG (PMX) 100 ML IVPB SCH ×2 (08:24→21:05)
[2017-01-21] MEDS: MEROPENEM 500MG/50 ML (PMX) 50 ML IVPB SCH ×2 (08:24→22:08)
[2017-01-21 09:17] LABS: ABNORMAL IP MESSAGE 1; BASOPHIL # 0.1 10^3/ul (0.0-0.1); BASOPHILS % 0.3 % (0.0-2.0); EOSINOPHILS # 0.1 10^3/ul (0.0-0.5); EOSINOPHILS % 0.5 % (0.0-7.0); HEMATOCRIT 24.7 % (37.0-47.0); HEMOGLOBIN 7.8 g/dl (12.0-16.0); LYMPHOCYTES % 9.8 % (15.0-51.0); MEAN CORPUSCULAR HEMOGLOBIN 29.8 pg (29.0-33.0); MEAN CORPUSCULAR HGB CONC 31.6 g/dl (32.0-37.0); MEAN CORPUSCULAR VOLUME 94.3 fl (82.0-101.0); MEAN PLATELET VOLUME 10.5 fl (7.4-10.4); MONOCYTE # 1.3 10^3/ul (0.3-0.9); MONOCYTES % 6.4 % (0.0-11.0); NEUTROPHIL # 15.9 10^3/ul (1.6-7.5); NEUTROPHILS % 77.9 % (39.0-77.0); PLATELET COUNT 471 10^3/UL (140-415); RED BLOOD COUNT 2.62 10^6/ul (4.20-5.40); RED CELL DISTRIBUTION WIDTH 15.9 % (11.5-14.5); WHITE BLOOD COUNT 20.4 10^3/ul (4.8-10.8)
[2017-01-21 09:25] LABS: POSITIVE DIFF @See below
[2017-01-21 09:36] LABS: CALCIUM 7.6 mg/dl (8.4-10.2); CREATININE 2.74 mg/dl (0.44-1.00); POTASSIUM 4.2 mmol/L (3.5-5.1)
--- NOTE | 2017-01-21 09:44 | CONS ---
Date/Time of Note Date/Time of Note DATE: 01/21/17 TIME: 09:41 Assessment/Plan Assessment/Plan Additional Assessment/Plan Ventilator setting; AC of 26, tidal volume 450, PEEP of 5, 30% FiO2. Patient currently on Protonix at 10 mg/h, fentanyl 100 mics per hour, Versed 5 mg/h, Sandostatin drip 25 mics per hour. Assessment and recommendations; 1. Patient admitted with gallstone pancreatitis status post ERCP. 2. Respiratory failure, right lower lobe pneumonia. 3. Renal insufficiency. 4. Status post septic shock. Continue current supportive care. Patient scheduled for G-tube placement today. Consultation Date/Type/Reason Admit Date/Time Jan 04, 2017 at 19:10 Initial Consult Date 01/11/17 Type of Consultation: Pulmonary/critical care Referring Provider: YING CASTAÑEDA 24 HR Interval Summary Free Text/Dictation Patient condition remains critical but stable remains awake and alert. Has been off pressor support. Has remained hemodynamically stable. Next General exam; elderly woman, orally intubated, awake, currently in no distress. Exam/Review of Systems Vital Signs Vitals Vital Signs Date Time Temp Pulse Resp B/P Pulse Ox O2 Delivery O2 Flow Rate FiO2 01/21/17 08:00 30 01/21/17 08:00 100.0 26 106/68 98 Mechanical Ventilator 01/21/17 07:10 106 Intake and Output 01/20/17 01/20/17 01/21/17 15:00 23:00 07:00 Intake Total 374.5 ml 1092.5 ml 1467.5 ml Output Total 1050 ml 1330 ml 990 ml Balance -675.5 ml -237.5 ml 477.5 ml Exam HEENT exam; supple neck, no JVD. No lymphadenopathy. Midline trachea. No thyromegaly. Tracheostomy in place.. Patient has fair dentition. Pupils are midsize and reactive to light. Chest exam; minimally decreased breath sounds right lower lobe otherwise clear to auscultation. S1-S2 audible, no murmurs. Regular rhythm. Abdomen exam; soft, nondistended. Bowel sounds are audible. Extremity exam; trace edema. QUILLER TENDER exam; patient is awake alert and follows simple commands. Moves all 4 extremities on command. Results Result Diagram: 01/21/17 0904 01/21/17 0400 Results 24 hrs Laboratory Tests Test 01/20/17 12:03 01/20/17 16:36 01/20/17 21:08 01/21/17 00:36 Bedside Glucose 101 120 104 121 Test 01/21/17 04:00 01/21/17 05:25 01/21/17 08:28 01/21/17 09:04 White Blood Count 18.9 H 20.4 H Red Blood Count 2.50 L 2.62 L Hemoglobin 7.3 L 7.8 L Hematocrit 23.5 L 24.7 L Mean Corpuscular Volume 94.0 94.3 Mean Corpuscular Hemoglobin 29.2 29.8 Mean Corpuscular Hemoglobin Concent 31.1 L 31.6 L Red Cell Distribution Width 16.0 H 15.9 H Platelet Count 429 H 471 H Mean Platelet Volume 10.7 H 10.5 H Neutrophils % 77.5 H 77.9 H Lymphocytes % 10.2 L 9.8 L Monocytes % 6.2 6.4 Eosinophils % 0.6 0.5 Basophils % 0.2 0.3 Nucleated Red Blood Cells % 0.0 0.0 Neutrophils # 14.6 H 15.9 H Lymphocytes # 1.9 2.0 Monocytes # 1.2 H 1.3 H Eosinophils # 0.1 0.1 Basophils # 0.0 0.1 Nucleated Red Blood Cells # 0.0 0.0 Sodium Level 134 L Potassium Level 5.4 H Chloride Level 101 Carbon Dioxide Level 21 Anion Gap 17 H Blood Urea Nitrogen 59 H Creatinine 2.65 H Glucose Level 540 #*H Calcium Level 7.9 L Phosphorus Level 3.2 Magnesium Level 2.3 Bedside Glucose 142 129 Medications Medications Current Medications Ondansetron HCl (Zofran Inj) 4 mg Q6H PRN IV NAUSEA AND/OR VOMITING; Start 01/04 at 19:30 Acetaminophen/ Hydrocodone Bitart ([place] (5/325)) 1 tab Q6H PRN PO MODERATE PAIN LEVEL 4-6; Start 01/04/17 at 19:30 Morphine Sulfate (morphine) 2 mg Q4H PRN IV SEVERE PAIN LEVEL 7-10 Last administered on 01/18/17t 02:05; Admin Dose 2 MG; Start 01/04/17 at 19:30 Docusate Sodium (Colace) 100 mg Q12H PRN PO CONSTIPATION; Start 01/04/17 at 19: 30 Magnesium Hydroxide (Milk Of Mag) 30 ml DAILY PRN PO CONSTIPATION; Start at 19:30 Sodium Biphosphate/ Sodium Phosphate (Fleet Enema) 133 ml DAILY PRN [place] CONSTIPATION; Start 01/04/17 at 19:30 Lorazepam (Ativan) 0.5 mg Q6H PRN IV ANXIETY Last administered on 01/20/17 05: 25; Admin Dose 0.5 MG; Start 01/04/17 at 19:30 Hydralazine HCl (Apresoline) 10 mg Q6H PRN IV ELEVATED BLOOD PRESSURE; Start at 19:30 Nitroglycerin (Nitroglycerin (Sl Tab) 0.4 Mg) 1 tab Q5M PRN SL ANGINA; Start at 19:30 Phenobarbital (Luminal) 64.8 mg BID PO Last administered on 01/04/17 23:45; Admin Dose 64.8 MG; Start 01/04/17 at 21:00; Status Future Hold Topiramate (Topamax) 200 mg BID PO ; Start 01/05/17 at 21:00; Status Future Hold Miscellaneous Information 1 ea NOTE XX ; Start 01/04/17 at 19:30 Glucose (Glutose) 15 gm Q15M PRN PO DECREASED GLUCOSE; Start 01/04/17 at 19:30 Glucose (Glutose) 22.5 gm Q15M PRN PO DECREASED GLUCOSE; Start 01/04/17 at 19:30 Dextrose (D50w Syringe) 25 ml Q15M PRN IV DECREASED GLUCOSE Last administered on 01/08/17 05:36; Admin Dose 25 ML; Start 01/04/17 at 19:30 Dextrose (D50w Syringe) 50 ml Q15M PRN IV DECREASED GLUCOSE; Start 01/04/17 at 19:30 Glucagon (Glucagen) 1 mg Q15M PRN IM DECREASED GLUCOSE; Start 01/04/17 at 19:30 Glucose (Glutose) 15 gm Q15M PRN BUCCAL DECREASED GLUCOSE; Start 01/04/17 at 19: 30 Phenytoin (Dilantin Susp Cup) 100 mg TID PO Last administered on 01/04/17 23:44 ; Admin Dose 100 MG; Start 01/04/17 at 21:50; Status Future Hold Clonazepam 0.5 mg 0.5 mg Q8H PO Last administered on 01/04/17 23:45; Admin Dose 0.5 MG; Start 01/04/17 at 23:00; Status Future Hold Norepinephrine 16 mg/Dextrose 500 ml @ 1.87 mls/hr TITRATE IV Last administered on 01/07/17 00:23; Admin Dose 15 MLS/HR; Start 01/05/17 at 00:30 Fentanyl 100 ml @ 2.5 mls/hr TITRATE IV Last administered on 01/20/17 23:50; Admin Dose 10 MLS/HR; Start 01/05/17 at 08:39 Midazolam HCl 50 ml @ 1 mls/hr TITRATE IV Last administered on 01/20/17 23:50 ; Admin Dose 5 MLS/HR; Start 01/05/17 at 08:41 Levetiracetam 100 ml @ 400 mls/hr Q12 IVPB Last administered on 01/21/17 08: 24; Admin Dose 400 MLS/HR; Start 01/05/17 at 11:30 Vasopressin 60 unit/Dextrose 60 ml @ 1.2 mls/hr Q12H IV Last administered on 22:32; Admin Dose 2.4 MLS/HR; Start 01/05/17 at 17:30 Epinephrine 4 mg/ Sodium Chloride 250 ml @ 0 mls/hr TITRATE IV ; Start 01/05/17 at 18:30 Phenylephrine HCl/ Dextrose ([place]-Syneph/D5W) 500 ml @ 18.75 mls/ hr TITRATE IV Last administered on 01/20/17 02:34; Admin Dose 1.87 MLS/HR; Start 01/05/17 at 20:30 Acetaminophen (Tylenol Liquid) 650 mg Q4H PRN NGT PAIN AND OR ELEVATED TEMP Last administered on 01/19/17 17:32; Admin Dose 650 MG; Start 01/06/17 at 04:30 Insulin Glargine 10 unit 10 unit DAILY SC Last administered on 01/07/17 08:19; Admin Dose 10 UNIT; Start 01/06/17 at 14:00; Status Future Hold Acetaminophen (Ofirmev 1000mg/ 100ml Iv) 100 ml @ 400 mls/hr Q6H PRN IVPB FEVER Last administered on 01/20/17 00:55; Admin Dose 400 MLS/HR; Start at 06:30 IV Flush (NS 10 ml) 10 ml PRN PRN IV IV PROTOCOL; Start 01/10/17 at 11:30 Amiodarone HCl (Cordarone) 200 mg BID GTB Last administered on 01/20/17 08:06 ; Admin Dose 200 MG; Start 01/11/17 at 12:00 Diagnostic Test (Pha) (Accu-Chek) 1 ea Q4H XX Last administered on 01/21/17 08 :16; Admin Dose 1 EA; Start 01/11/17 at 17:00 Epoetin Mina (Epogen (Esrd)) 10,000 units MoWeFr@17 SC Last administered on 18:42; Admin Dose 10,000 UNITS; Start 01/13/17 at 17:00 Insulin Aspart (Adult SC Insulin - Moder... Q4 SC Last administered on 21:08; Admin Dose 2 UNIT; Start 01/13/17 at 09:00 Meropenem/Sodium Chloride 50 ml @ 200 mls/hr Q12H IVPB Last administered on 08:24; Admin Dose 200 MLS/HR; Start 01/13/17 at 10:00 Pantoprazole 80 mg/Sodium Chloride 100 ml @ 10 mls/hr Q10H IV Last administered on 01/21/17 08:24; Admin Dose 10 MLS/HR; Start 01/14/17 at 06:00 Octreotide Acetate 500 mcg/ Sodium Chloride 50 ml @ 2.5 mls/hr Q20H IV Last administered on 01/20/17 21:01; Admin Dose 2.5 MLS/HR; Start 01/14/17 at 06:30 Vancomycin HCl (Vancocin) 250 ml @ 125 mls/hr Q72H IVPB Last administered on 06:01; Admin Dose 125 MLS/HR; Start 01/16/17 at 06:00 Metoprolol Tartrate (Lopressor) 25 mg BID PO Last administered on 01/20/17 08: 07; Admin Dose 25 MG; Start 01/15/17 at 15:00 Al Hydrox/Mg Hydrox/ Simethicone 30 ml 30 ml Q4 GTB Last administered on 12:09; Admin Dose 30 ML; Start 01/15/17 at 17:00 Caspofungin 50 mg/ Sodium Chloride 250 ml @ 250 mls/hr Q24H IVPB Last administered on 01/20/17 16:06; Admin Dose 250 MLS/HR; Start 01/17/17 at 14:30 Dextrose (D5W) 1,000 ml @ 150 mls/hr Q6H40M IV Last administered on 01/21/17 08:25; Admin Dose 150 MLS/HR; Start 01/18/17 at 08:30 Metoclopramide HCl 10 mg 10 mg Q6 IV Last administered on 01/21/17 06:19; Admin Dose 10 MG; Start 01/18/17 at 12:00 Total Parenteral Nutrition 1,000 ml @ 75 mls/hr [id number] IV Last administered on 01/21/17 00:35; Admin Dose 75 MLS/HR; Start 01/18/17 at 19:00 Metronidazole (Flagyl 500 Mg (Pmx)) 100 ml @ 100 mls/hr Q8 IVPB Last administered on 01/21/17 05:19; Admin Dose 100 MLS/HR; Start 01/20/17 at 14:00 JAYME QUEZADA Jan 21, 2017 09:44
[2017-01-21] MEDS: FENTAnyl (DRIP) 1000 mcg/100mL 100 ML IV SCH (10:05)
[2017-01-21] MEDS: MIDAZOLAM (DRIP) 50 mg/50 mL 50 ML IV SCH (10:05)
--- NOTE | 2017-01-21 10:27 | PN ---
Date/Time of Note Date/Time of Note DATE: 01/21/17 TIME: 10:26 Assessment/Plan Lines/Catheters IV Catheter Type (from Nrsg): Peripheral IV Matias in Place (from Nrsg): Yes Assessment/Plan Chief Complaint/Hosp Course This is a 61-year-old female who was admitted because of pneumonia was found for progressively worsening renal failure. SP tracheostomy Trach site clean We will continue vent support Trach care Pulmonary toilet Problems: Subjective 24 Hr Interval Summary Constitutional: improved Pain Control: mild Exam/Review of Systems Vital Signs Vitals Vital Signs Date Time Temp Pulse Resp B/P Pulse Ox O2 Delivery O2 Flow Rate FiO2 01/21/17 08:00 30 01/21/17 08:00 100.0 26 106/68 98 Mechanical Ventilator 01/21/17 07:10 106 Intake and Output 01/20/17 01/20/17 01/21/17 15:00 23:00 07:00 Intake Total 374.5 ml 1092.5 ml 1467.5 ml Output Total 1050 ml 1330 ml 990 ml Balance -675.5 ml -237.5 ml 477.5 ml Exam ENMT: mucosa pink and moist, nl external ears & nose, nl lips & teeth, nl nasal mucosa & septum Neck: non-tender, supple Respiratory: clear to auscultation, normal air movement Cardiovascular: nl pulses, regular rate and rhythm Gastrointestinal: nl liver, spleen, non-tender, soft Results Result Diagram: 01/21/1704 01/21/17 0904 SAM GUTIERREZ MD Jan 21, 2017 10:27
--- NOTE | 2017-01-21 12:05 | CONS ---
Date/Time of Note Date/Time of Note DATE: 01/21/17 TIME: 12:03 Assessment/Plan Assessment/Plan Chief Complaint/Hosp Course Patient has tracheostomy done she is lying comfortably in bed still having low- grade fevers T-max this morning 100 Heart rate 106 respirations 26 blood pressure 106/60 saturation 98 on 30 FiO2 WBC 20.4 H&H 7.8 and 24.7 platelets 471 neutrophils 77.9 Indwelling's: Tracheostomy, NG tube Matias catheter right femoral Gael right upper extremity PICC line CT of the abdomen and pelvis on January 14 revealed severe pancreatitis with surrounding edema and fluid, worse than seen previously Antibiotics: Vancomycin, meropenem day #16 Cancidas day #7, Flagyl #2 Microbiology: Blood culture on admission grew coag negative staph species urine culture grew E. coli repeat blood and urine culture had been negative Physical examination: Chronically ill-appearing elderly woman who looks comfortable on vent. Head atraumatic normocephalic, sclera nonicteric. Neck is supple, trachea midline. Chest rise symmetrical, breath sounds diminished to bases Heart: S1, S2, tachycardic Abdomen soft bowel tones present. Extremities with trace edema, no cyanosis Assessment: 1. Severe sepsis with ongoing fevers and leukocytosis status post shock ==> r/ o line sepsis 2. Severe, acute pancreatitis, possibly developing pseudocyst 3. Choledocholithiasis, status post ERCP 01/12/17 with removal of the stone and stent placement 4. Coag negative staph bacteremia, likely contaminant 5. Acute respiratory failure 6. Acute renal failure requiring hemodialysis 7. Fungal urinary tract infection 8. Diarrhea, rule out C. difficile Plan: Clinically and hemodynamically stable, still with ongoing fevers, continue antibiotics, consider femoral Gael DC, pending PEG. Consider repeat CT abdomen given persistent leukocytosis Discussed with staff Problems: Consultation Date/Type/Reason Admit Date/Time Jan 04, 2017 at 19:10 Initial Consult Date 01/11/17 Type of Consultation: ID Referring Provider: YING CASTAÑEDA Exam/Review of Systems Vital Signs Vitals Vital Signs Date Time Temp Pulse Resp B/P Pulse Ox O2 Delivery O2 Flow Rate FiO2 01/21/17 09:30 108 26 100 30 01/21/17 08:00 100.0 106/68 Mechanical Ventilator Intake and Output 01/20/17 01/20/1701/21/17 15:00 23:00 07:00 Intake Total 374.5 ml 1092.5 ml 1467.5 ml Output Total 1050 ml 1330 ml 990 ml Balance -675.5 ml -237.5 ml 477.5 ml Results Result Diagram: 01/21/17 0904 01/21/17 0904 Results 24 hrs Laboratory Tests Test 01/20/17 16:36 01/20/17 21:08 01/21/17 00:36 01/21/17 04:00 Bedside Glucose 120 104 121 White Blood Count 18.9 H Red Blood Count 2.50 L Hemoglobin 7.3 L Hematocrit 23.5 L Mean Corpuscular Volume 94.0 Mean Corpuscular Hemoglobin 29.2 Mean Corpuscular Hemoglobin Concent 31.1 L Red Cell Distribution Width 16.0 H Platelet Count 429 H Mean Platelet Volume 10.7 H Neutrophils % 77.5 H Lymphocytes % 10.2 L Monocytes % 6.2 Eosinophils % 0.6 Basophils % 0.2 Nucleated Red Blood Cells % 0.0 Neutrophils # 14.6 H Lymphocytes # 1.9 Monocytes # 1.2 H Eosinophils # 0.1 Basophils # 0.0 Nucleated Red Blood Cells # 0.0 Sodium Level 134 L Potassium Level 5.4 H Chloride Level 101 Carbon Dioxide Level 21 Anion Gap 17 H Blood Urea Nitrogen 59 H Creatinine 2.65 H Glucose Level 540 #*H Calcium Level 7.9 L Phosphorus Level 3.2 Magnesium Level 2.3 Test 01/21/17 05:25 01/21/17 08:28 01/21/17 09:04 Bedside Glucose 142 129 White Blood Count 20.4 H Red Blood Count 2.62 L Hemoglobin 7.8 L Hematocrit 24.7 L Mean Corpuscular Volume 94.3 Mean Corpuscular Hemoglobin 29.8 Mean Corpuscular Hemoglobin Concent 31.6 L Red Cell Distribution Width 15.9 H Platelet Count 471 H Mean Platelet Volume 10.5 H Neutrophils % 77.9 H Lymphocytes % 9.8 L Monocytes % 6.4 Eosinophils % 0.5 Basophils % 0.3 Nucleated Red Blood Cells % 0.0 Neutrophils # 15.9 H Lymphocytes # 2.0 Monocytes # 1.3 H Eosinophils # 0.1 Basophils # 0.1 Nucleated Red Blood Cells # 0.0 Sodium Level 139 Potassium Level 4.2 Chloride Level 106 Carbon Dioxide Level 21 Anion Gap 16 Blood Urea Nitrogen 59 H Creatinine 2.74 H Glucose Level 117 # Calcium Level 7.6 L Medications Medications Current Medications Ondansetron HCl (Zofran Inj) 4 mg Q6H PRN IV NAUSEA AND/OR VOMITING; Start 01/04 at 19:30 Acetaminophen/ Hydrocodone Bitart ([place] (5/325)) 1 tab Q6H PRN PO MODERATE PAIN LEVEL 4-6; Start 01/04/17 at 19:30 Morphine Sulfate (morphine) 2 mg Q4H PRN IV SEVERE PAIN LEVEL 7-10 Last administered on 01/18/17 02:05; Admin Dose 2 MG; Start 01/04/17 at 19:30 Docusate Sodium (Colace) 100 mg Q12H PRN PO CONSTIPATION; Start 01/04/17 at 19: 30 Magnesium Hydroxide (Milk Of Mag) 30 ml DAILY PRN PO CONSTIPATION; Start at 19:30 Sodium Biphosphate/ Sodium Phosphate (Fleet Enema) 133 ml DAILY PRN [place] CONSTIPATION; Start 01/04/17 at 19:30 Lorazepam (Ativan) 0.5 mg Q6H PRN IV ANXIETY Last administered on 01/20/17 05: 25; Admin Dose 0.5 MG; Start 01/04/17 at 19:30 Hydralazine HCl (Apresoline) 10 mg Q6H PRN IV ELEVATED BLOOD PRESSURE; Start at 19:30 Nitroglycerin (Nitroglycerin (Sl Tab) 0.4 Mg) 1 tab Q5M PRN SL ANGINA; Start at 19:30 Phenobarbital (Luminal) 64.8 mg BID PO Last administered on 01/04/17 23:45; Admin Dose 64.8 MG; Start 01/04/17 at 21:00; Status Future Hold Topiramate (Topamax) 200 mg BID PO ; Start 01/05/17 at 21:00; Status Future Hold Miscellaneous Information 1 ea NOTE XX ; Start 01/04/17 at 19:30 Glucose (Glutose) 15 gm Q15M PRN PO DECREASED GLUCOSE; Start 01/04/17 at 19:30 Glucose (Glutose) 22.5 gm Q15M PRN PO DECREASED GLUCOSE; Start 01/04/17 at 19:30 Dextrose (D50w Syringe) 25 ml Q15M PRN IV DECREASED GLUCOSE Last administered on 01/08/17 05:36; Admin Dose 25 ML; Start 01/04/17 at 19:30 Dextrose (D50w Syringe) 50 ml Q15M PRN IV DECREASED GLUCOSE; Start 01/04/17 at 19:30 Glucagon (Glucagen) 1 mg Q15M PRN IM DECREASED GLUCOSE; Start 01/04/17 at 19:30 Glucose (Glutose) 15 gm Q15M PRN BUCCAL DECREASED GLUCOSE; Start 01/04/17 at 19: 30 Phenytoin (Dilantin Susp Cup) 100 mg TID PO Last administered on 01/04/17 23:44 ; Admin Dose 100 MG; Start 01/04/17 at 21:50; Status Future Hold Clonazepam 0.5 mg 0.5 mg Q8H PO Last administered on 01/04/17 23:45; Admin Dose 0.5 MG; Start 01/04/17 at 23:00; Status Future Hold Norepinephrine 16 mg/Dextrose 500 ml @ 1.87 mls/hr TITRATE IV Last administered on 01/07/17 00:23; Admin Dose 15 MLS/HR; Start 01/05/17 at 00:30 Fentanyl 100 ml @ 2.5 mls/hr TITRATE IV Last administered on 01/21/17 10:05; Admin Dose 10 MLS/HR; Start 01/05/17 at 08:39 Midazolam HCl 50 ml @ 1 mls/hr TITRATE IV Last administered on 01/20/17 23:50 ; Admin Dose 5 MLS/HR; Start 01/05/17 at 08:41 Levetiracetam 100 ml @ 400 mls/hr Q12 IVPB Last administered on 01/21/17 08: 24; Admin Dose 400 MLS/HR; Start 01/05/17 at 11:30 Vasopressin 60 unit/Dextrose 60 ml @ 1.2 mls/hr Q12H IV Last administered on 22:32; Admin Dose 2.4 MLS/HR; Start 01/05/17 at 17:30 Epinephrine 4 mg/ Sodium Chloride 250 ml @ 0 mls/hr TITRATE IV ; Start 01/05/17 at 18:30 Phenylephrine HCl/ Dextrose (Robert-Syneph/D5W) 500 ml @ 18.75 mls/ hr TITRATE IV Last administered on 01/20/17 02:34; Admin Dose 1.87 MLS/HR; Start 01/05/17 at 20:30 Acetaminophen (Tylenol Liquid) 650 mg Q4H PRN NGT PAIN AND OR ELEVATED TEMP Last administered on 01/19/17 17:32; Admin Dose 650 MG; Start 01/06/17 at 04:30 Insulin Glargine 10 unit 10 unit DAILY SC Last administered on 01/07/17 08:19; Admin Dose 10 UNIT; Start 01/06/17 at 14:00; Status Future Hold Acetaminophen (Ofirmev 1000mg/ 100ml Iv) 100 ml @ 400 mls/hr Q6H PRN IVPB FEVER Last administered on 01/20/17 00:55; Admin Dose 400 MLS/HR; Start at 06:30 IV Flush (NS 10 ml) 10 ml PRN PRN IV IV PROTOCOL; Start 01/10/17 at 11:30 Amiodarone HCl (Cordarone) 200 mg BID GTB Last administered on 01/20/17 08:06 ; Admin Dose 200 MG; Start 01/11/17 at 12:00 Diagnostic Test (Pha) (Accu-Chek) 1 ea Q4H XX Last administered on 01/21/17 08 :16; Admin Dose 1 EA; Start 01/11/17 at 17:00 Epoetin Mina (Epogen (Esrd)) 10,000 units MoWeFr@17 SC Last administered on 18:42; Admin Dose 10,000 UNITS; Start 01/13/17 at 17:00 Insulin Aspart (Adult SC Insulin - Moder... Q4 SC Last administered on 21:08; Admin Dose 2 UNIT; Start 01/13/17 at 09:00 Meropenem/Sodium Chloride 50 ml @ 200 mls/hr Q12H IVPB Last administered on 08:24; Admin Dose 200 MLS/HR; Start 01/13/17 at 10:00 Pantoprazole 80 mg/Sodium Chloride 100 ml @ 10 mls/hr Q10H IV Last administered on 01/21/17 08:24; Admin Dose 10 MLS/HR; Start 01/14/17 at 06:00 Octreotide Acetate 500 mcg/ Sodium Chloride 50 ml @ 2.5 mls/hr Q20H IV Last administered on 01/20/17 21:01; Admin Dose 2.5 MLS/HR; Start 01/14/17 at 06:30 Vancomycin HCl (Vancocin) 250 ml @ 125 mls/hr Q72H IVPB Last administered on 06:01; Admin Dose 125 MLS/HR; Start 01/16/17 at 06:00 Metoprolol Tartrate (Lopressor) 25 mg BID PO Last administered on 01/20/17 08: 07; Admin Dose 25 MG; Start 01/15/17 at 15:00 Al Hydrox/Mg Hydrox/ Simethicone 30 ml 30 ml Q4 GTB Last administered on 12:09; Admin Dose 30 ML; Start 01/15/17 at 17:00 Caspofungin 50 mg/ Sodium Chloride 250 ml @ 250 mls/hr Q24H IVPB Last administered on 01/20/17 16:06; Admin Dose 250 MLS/HR; Start 01/17/17 at 14:30 Dextrose (D5W) 1,000 ml @ 150 mls/hr Q6H40M IV Last administered on 01/21/17 08:25; Admin Dose 150 MLS/HR; Start 01/18/17 at 08:30 Metoclopramide HCl 10 mg 10 mg Q6 IV Last administered on 01/21/17 06:19; Admin Dose 10 MG; Start 01/18/17 at 12:00 Total Parenteral Nutrition 1,000 ml @ 75 mls/hr [id number] IV Last administered on 01/21/17 00:35; Admin Dose 75 MLS/HR; Start 01/18/17 at 19:00 Metronidazole (Flagyl 500 Mg (Pmx)) 100 ml @ 100 mls/hr Q8 IVPB Last administered on 01/21/17 05:19; Admin Dose 100 MLS/HR; Start 01/20/17 at 14:00 MIKE TURCIOS NP Jan 21, 2017 12:05
--- NOTE | 2017-01-21 12:37 | PN ---
Date/Time of Note Date/Time of Note DATE: 01/21/17 TIME: 12:35 Assessment/Plan VTE Prophylaxis VTE Prophylaxis Intervention: SCD's Lines/Catheters IV Catheter Type (from Nrs): Peripheral IV Assessment/Plan Chief Complaint/Hosp Course 1. Severe systemic shock with multiorgan failure secondary to severe pancreatitis superimposed by sepsis secondary to staph bacteremia, bilateral pneumonia, E. coli UTI -Improved 2. Severe gallstone pancreatitis * Status post ERCP with sphincterectomy and removal of common bile duct stones, placement of common bile duct stent done January 13, 2017 3. Probable GI bleed as well as abdominal distention 4. Acute respiratory failure secondary to #1 patient remains ventilator dependent 5. Acute kidney injury secondary to #1 now requiring hemodialysis 6. Persistent tachycardia likely secondary to #1 on amiodarone 7. Bilateral pneumonia with bilateral effusions R> L which is likely reactive from #2 * persistent despite right-sided thoracentesis January 13, 2017 8. Normocytic normochromic anemia: Worsening 9. History of seizure disorder on Keppra 10. Chronic debility on TPN 11. Persistent tachycardia: Plan: Continue ICU monitoring and vent support and sedation as indicated Continue Protonix and DC octreotide drips, continue to hold anticoagulation, follow-up H&H, follow GI plan Continue antibiotics per ID Continue TPN as well as gentle fluid hydration Status post tracheostomy placement, plan for PEG tube placement today Appreciate cardiology input and management of tachycardia, patient is on amiodarone Closely monitor hemoglobin every 6 hours, transfuse as needed Continue Keppra for seizures Continue dialysis per renal Tachycardia is consistent with severe pancreatitis, Appreciate all consultants Further interventions per clinical course Prognosis remains guarded, family conference tomorrow to discuss PEG and trach Prophylaxis: SCDs/Protonix drip Problems: Subjective 24 Hr Interval Summary Subjective hx not possible: pt non-verbal Exam/Review of Systems Vital Signs Vitals Vital Signs Date Time Temp Pulse Resp B/P Pulse Ox O2 Delivery O2 Flow Rate FiO2 01/21/17 12:00 108 01/21/17 09:30 26 100 30 01/21/17 08:00 100.0 106/68 Mechanical Ventilator Intake and Output 01/20/17 01/20/17 01/21/17 15:00 23:00 07:00 Intake Total 374.5 ml 1092.5 ml 1467.5 ml Output Total 1050 ml 1330 ml 990 ml Balance -675.5 ml -237.5 ml 477.5 ml Exam Constitutional: non-verbal ENMT: other (Tracheostomy noted) Respiratory: clear to auscultation Cardiovascular: regular rate and rhythm Gastrointestinal: soft, No distended Musculoskeletal: nl extremities to inspection Results Result Diagram: 01/21/17 0904 01/21/17 0904 Results 24 hrs Laboratory Tests Test 01/20/17 16:36 01/20/17 21:08 01/21/17 00:36 01/21/17 04:00 Bedside Glucose 120 104 121 White Blood Count 18.9 H Red Blood Count 2.50 L Hemoglobin 7.3 L Hematocrit 23.5 L Mean Corpuscular Volume 94.0 Mean Corpuscular Hemoglobin 29.2 Mean Corpuscular Hemoglobin Concent 31.1 L Red Cell Distribution Width 16.0 H Platelet Count 429 H Mean Platelet Volume 10.7 H Neutrophils % 77.5 H Lymphocytes % 10.2 L Monocytes % 6.2 Eosinophils % 0.6 Basophils % 0.2 Nucleated Red Blood Cells % 0.0 Neutrophils # 14.6 H Lymphocytes # 1.9 Monocytes # 1.2 H Eosinophils # 0.1 Basophils # 0.0 Nucleated Red Blood Cells # 0.0 Sodium Level 134 L Potassium Level 5.4 H Chloride Level 101 Carbon Dioxide Level 21 Anion Gap 17 H Blood Urea Nitrogen 59 H Creatinine 2.65 H Glucose Level 540 #*H Calcium Level 7.9 L Phosphorus Level 3.2 Magnesium Level 2.3 Test 01/21/17 05:25 01/21/17 08:28 01/21/17 09:04 Bedside Glucose 142 129 White Blood Count 20.4 H Red Blood Count 2.62 L Hemoglobin 7.8 L Hematocrit 24.7 L Mean Corpuscular Volume 94.3 Mean Corpuscular Hemoglobin 29.8 Mean Corpuscular Hemoglobin Concent 31.6 L Red Cell Distribution Width 15.9 H Platelet Count 471 H Mean Platelet Volume 10.5 H Neutrophils % 77.9 H Lymphocytes % 9.8 L Monocytes % 6.4 Eosinophils % 0.5 Basophils % 0.3 Nucleated Red Blood Cells % 0.0 Neutrophils # 15.9 H Lymphocytes # 2.0 Monocytes # 1.3 H Eosinophils # 0.1 Basophils # 0.1 Nucleated Red Blood Cells # 0.0 Sodium Level 139 Potassium Level 4.2 Chloride Level 106 Carbon Dioxide Level 21 Anion Gap 16 Blood Urea Nitrogen 59 H Creatinine 2.74 H Glucose Level 117 # Calcium Level 7.6 L Medications Medications Current Medications Ondansetron HCl (Zofran Inj) 4 mg Q6H PRN IV NAUSEA AND/OR VOMITING; Start 01/04 at 19:30 Acetaminophen/ Hydrocodone Bitart ([place] (5/325)) 1 tab Q6H PRN PO MODERATE PAIN LEVEL 4-6; Start 01/04/17 at 19:30 Morphine Sulfate (morphine) 2 mg Q4H PRN IV SEVERE PAIN LEVEL 7-10 Last administered on 01/18/17 02:05; Admin Dose 2 MG; Start 01/04/17 at 19:30 Docusate Sodium (Colace) 100 mg Q12H PRN PO CONSTIPATION; Start 01/04/17 at 19: 30 Magnesium Hydroxide (Milk Of Mag) 30 ml DAILY PRN PO CONSTIPATION; Start at 19:30 Sodium Biphosphate/ Sodium Phosphate (Fleet Enema) 133 ml DAILY PRN [place] CONSTIPATION; Start 01/04/17 at 19:30 Lorazepam (Ativan) 0.5 mg Q6H PRN IV ANXIETY Last administered on 01/20/17 05: 25; Admin Dose 0.5 MG; Start 01/04/17 at 19:30 Hydralazine HCl (Apresoline) 10 mg Q6H PRN IV ELEVATED BLOOD PRESSURE; Start at 19:30 Nitroglycerin (Nitroglycerin (Sl Tab) 0.4 Mg) 1 tab Q5M PRN SL ANGINA; Start at 19:30 Phenobarbital (Luminal) 64.8 mg BID PO Last administered on 01/04/17 23:45; Admin Dose 64.8 MG; Start 01/04/17 at 21:00; Status Future Hold Topiramate (Topamax) 200 mg BID PO ; Start 01/05/17 at 21:00; Status Future Hold Miscellaneous Information 1 ea NOTE XX ; Start 01/04/17 at 19:30 Glucose (Glutose) 15 gm Q15M PRN PO DECREASED GLUCOSE; Start 01/04/17 at 19:30 Glucose (Glutose) 22.5 gm Q15M PRN PO DECREASED GLUCOSE; Start 01/04/17 at 19:30 Dextrose (D50w Syringe) 25 ml Q15M PRN IV DECREASED GLUCOSE Last administered on 01/08/17 05:36; Admin Dose 25 ML; Start 01/04/17 at 19:30 Dextrose (D50w Syringe) 50 ml Q15M PRN IV DECREASED GLUCOSE; Start 01/04/17 at 19:30 Glucagon (Glucagen) 1 mg Q15M PRN IM DECREASED GLUCOSE; Start 01/04/17 at 19:30 Glucose (Glutose) 15 gm Q15M PRN BUCCAL DECREASED GLUCOSE; Start 01/04/17 at 19: 30 Phenytoin (Dilantin Susp Cup) 100 mg TID PO Last administered on 01/04/17 23:44 ; Admin Dose 100 MG; Start 01/04/17 at 21:50; Status Future Hold Clonazepam 0.5 mg 0.5 mg Q8H PO Last administered on 01/04/17 23:45; Admin Dose 0.5 MG; Start 01/04/17 at 23:00; Status Future Hold Norepinephrine 16 mg/Dextrose 500 ml @ 1.87 mls/hr TITRATE IV Last administered on 01/07/17 00:23; Admin Dose 15 MLS/HR; Start 01/05/17 at 00:30 Fentanyl 100 ml @ 2.5 mls/hr TITRATE IV Last administered on 01/21/17 10:05; Admin Dose 10 MLS/HR; Start 01/05/17 at 08:39 Midazolam HCl 50 ml @ 1 mls/hr TITRATE IV Last administered on 01/20/17 23:50 ; Admin Dose 5 MLS/HR; Start 01/05/17 at 08:41 Levetiracetam 100 ml @ 400 mls/hr Q12 IVPB Last administered on 01/21/17 08: 24; Admin Dose 400 MLS/HR; Start 01/05/17 at 11:30 Vasopressin 60 unit/Dextrose 60 ml @ 1.2 mls/hr Q12H IV Last administered on 22:32; Admin Dose 2.4 MLS/HR; Start 01/05/17 at 17:30 Epinephrine 4 mg/ Sodium Chloride 250 ml @ 0 mls/hr TITRATE IV ; Start 01/05/17 at 18:30 Phenylephrine HCl/ Dextrose (Robert-Syneph/D5W) 500 ml @ 18.75 mls/ hr TITRATE IV Last administered on 01/20/17 02:34; Admin Dose 1.87 MLS/HR; Start 01/05/17 at 20:30 Acetaminophen (Tylenol Liquid) 650 mg Q4H PRN NGT PAIN AND OR ELEVATED TEMP Last administered on 01/19/17 17:32; Admin Dose 650 MG; Start 01/06/17 at 04:30 Insulin Glargine 10 unit 10 unit DAILY SC Last administered on 01/07/17 08:19; Admin Dose 10 UNIT; Start 01/06/17 at 14:00; Status Future Hold Acetaminophen (Ofirmev 1000mg/ 100ml Iv) 100 ml @ 400 mls/hr Q6H PRN IVPB FEVER Last administered on 01/20/17 00:55; Admin Dose 400 MLS/HR; Start at 06:30 IV Flush (NS 10 ml) 10 ml PRN PRN IV IV PROTOCOL; Start 01/10/17 at 11:30 Amiodarone HCl (Cordarone) 200 mg BID GTB Last administered on 01/20/17 08:06 ; Admin Dose 200 MG; Start 01/11/17 at 12:00 Diagnostic Test (Pha) (Accu-Chek) 1 ea Q4H XX Last administered on 01/21/17 12 :31; Admin Dose 1 EA; Start 01/11/17 at 17:00 Epoetin Mina (Epogen (Esrd)) 10,000 units MoWeFr@17 SC Last administered on 18:42; Admin Dose 10,000 UNITS; Start 01/13/17 at 17:00 Insulin Aspart (Adult [place] Insulin - Moder... Q4 SC Last administered on 21:08; Admin Dose 2 UNIT; Start 01/13/17 at 09:00 Meropenem/Sodium Chloride 50 ml @ 200 mls/hr Q12H IVPB Last administered on 08:24; Admin Dose 200 MLS/HR; Start 01/13/17 at 10:00 Pantoprazole 80 mg/Sodium Chloride 100 ml @ 10 mls/hr Q10H IV Last administered on 01/21/17 08:24; Admin Dose 10 MLS/HR; Start 01/14/17 at 06:00 Octreotide Acetate 500 mcg/ Sodium Chloride 50 ml @ 2.5 mls/hr Q20H IV Last administered on 01/20/17 21:01; Admin Dose 2.5 MLS/HR; Start 01/14/17 at 06:30 Vancomycin HCl (Vancocin) 250 ml @ 125 mls/hr Q72H IVPB Last administered on 06:01; Admin Dose 125 MLS/HR; Start 01/16/17 at 06:00 Metoprolol Tartrate (Lopressor) 25 mg BID PO Last administered on 01/20/17 08: 07; Admin Dose 25 MG; Start 01/15/17 at 15:00 Al Hydrox/Mg Hydrox/ Simethicone 30 ml 30 ml Q4 GTB Last administered on 12:09; Admin Dose 30 ML; Start 01/15/17 at 17:00 Caspofungin 50 mg/ Sodium Chloride 250 ml @ 250 mls/hr Q24H IVPB Last administered on 01/20/17 16:06; Admin Dose 250 MLS/HR; Start 01/17/17 at 14:30 Dextrose (D5W) 1,000 ml @ 150 mls/hr Q6H40M IV Last administered on 01/21/17 08:25; Admin Dose 150 MLS/HR; Start 01/18/17 at 08:30 Metoclopramide HCl 10 mg 10 mg Q6 IV Last administered on 01/21/17 12:28; Admin Dose 10 MG; Start 01/18/17 at 12:00 Total Parenteral Nutrition 1,000 ml @ 75 mls/hr [id number] IV Last administered on 01/21/17 00:35; Admin Dose 75 MLS/HR; Start 01/18/17 at 19:00 Metronidazole (Flagyl 500 Mg (Pmx)) 100 ml @ 100 mls/hr Q8 IVPB Last administered on 01/21/17 05:19; Admin Dose 100 MLS/HR; Start 01/20/17 at 14:00 YING CASTAÑEDA Jan 21, 2017 12:37
--- NOTE | 2017-01-21 13:11 | CONS ---
Date/Time of Note Date/Time of Note DATE: 01/21/17 TIME: 13:06 Assessment/Plan Assessment/Plan Additional Assessment/Plan 1. Acute renal failure. S/p HD 2 days ago. Good UOP and labs stable. No dialysis today. 2. S/p tracheostomy. For PEG today 3. Sepsis 4. Pancreatitis. No TPN 5. Respiratory failure, ventilator dependent 6. Hypotension requiring pressors 7. Anemia. Hb stable. 8. Paroxysmal atrial fibrillation Consultation Date/Type/Reason Admit Date/Time Jan 04, 2017 at 19:10 Initial Consult Date 01/11/17 Type of Consultation: Renal Referring Provider: YING CASTAÑEDA 24 HR Interval Summary Free Text/Dictation Awake, responsive, on ventilator Exam/Review of Systems Vital Signs Vitals Vital Signs Date Time Temp Pulse Resp B/P Pulse Ox O2 Delivery O2 Flow Rate FiO2 01/21/17 12:00 108 01/21/17 09:30 26 100 30 01/21/17 08:00 100.0 106/68 Mechanical Ventilator Intake and Output 01/20/17 01/20/17 01/21/17 15:00 23:00 07:00 Intake Total 374.5 ml 1092.5 ml 1467.5 ml Output Total 1050 ml 1330 ml 990 ml Balance -675.5 ml -237.5 ml 477.5 ml Exam ENMT: intubated Neck: No jvd Respiratory: clear to auscultation, normal air movement Cardiovascular: regular rate and rhythm Gastrointestinal: soft, tender, No bowel sounds, No rebound or guarding Extremities: No edema Results Result Diagram: 01/21/1704 01/21/17 0904 Results 24 hrs Laboratory Tests Test 01/20/17 16:36 01/20/17 21:08 01/21/17 00:36 01/21/17 04:00 Bedside Glucose 120 104 121 White Blood Count 18.9 H Red Blood Count 2.50 L Hemoglobin 7.3 L Hematocrit 23.5 L Mean Corpuscular Volume 94.0 Mean Corpuscular Hemoglobin 29.2 Mean Corpuscular Hemoglobin Concent 31.1 L Red Cell Distribution Width 16.0 H Platelet Count 429 H Mean Platelet Volume 10.7 H Neutrophils % 77.5 H Lymphocytes % 10.2 L Monocytes % 6.2 Eosinophils % 0.6 Basophils % 0.2 Nucleated Red Blood Cells % 0.0 Neutrophils # 14.6 H Lymphocytes # 1.9 Monocytes # 1.2 H Eosinophils # 0.1 Basophils # 0.0 Nucleated Red Blood Cells # 0.0 Sodium Level 134 L Potassium Level 5.4 H Chloride Level 101 Carbon Dioxide Level 21 Anion Gap 17 H Blood Urea Nitrogen 59 H Creatinine 2.65 H Glucose Level 540 #*H Calcium Level 7.9 L Phosphorus Level 3.2 Magnesium Level 2.3 Test 01/21/17 05:25 01/21/17 08:28 01/21/17 09:04 01/21/17 12:31 Bedside Glucose 142 129 111 White Blood Count 20.4 H Red Blood Count 2.62 L Hemoglobin 7.8 L Hematocrit 24.7 L Mean Corpuscular Volume 94.3 Mean Corpuscular Hemoglobin 29.8 Mean Corpuscular Hemoglobin Concent 31.6 L Red Cell Distribution Width 15.9 H Platelet Count 471 H Mean Platelet Volume 10.5 H Neutrophils % 77.9 H Lymphocytes % 9.8 L Monocytes % 6.4 Eosinophils % 0.5 Basophils % 0.3 Nucleated Red Blood Cells % 0.0 Neutrophils # 15.9 H Lymphocytes # 2.0 Monocytes # 1.3 H Eosinophils # 0.1 Basophils # 0.1 Nucleated Red Blood Cells # 0.0 Sodium Level 139 Potassium Level 4.2 Chloride Level 106 Carbon Dioxide Level 21 Anion Gap 16 Blood Urea Nitrogen 59 H Creatinine 2.74 H Glucose Level 117 # Calcium Level 7.6 L Medications Medications Current Medications Ondansetron HCl (Zofran Inj) 4 mg Q6H PRN IV NAUSEA AND/OR VOMITING; Start 01/04 at 19:30 Acetaminophen/ Hydrocodone Bitart ([place] (5/325)) 1 tab Q6H PRN PO MODERATE PAIN LEVEL 4-6; Start 01/04/17 at 19:30 Morphine Sulfate (morphine) 2 mg Q4H PRN IV SEVERE PAIN LEVEL 7-10 Last administered on 01/18/17t 02:05; Admin Dose 2 MG; Start 01/04/17 at 19:30 Docusate Sodium (Colace) 100 mg Q12H PRN PO CONSTIPATION; Start 01/04/17 at 19: 30 Magnesium Hydroxide (Milk Of Mag) 30 ml DAILY PRN PO CONSTIPATION; Start at 19:30 Sodium Biphosphate/ Sodium Phosphate (Fleet Enema) 133 ml DAILY PRN [place] CONSTIPATION; Start 01/04/17 at 19:30 Lorazepam (Ativan) 0.5 mg Q6H PRN IV ANXIETY Last administered on 01/20/17 05: 25; Admin Dose 0.5 MG; Start 01/04/17 at 19:30 Hydralazine HCl (Apresoline) 10 mg Q6H PRN IV ELEVATED BLOOD PRESSURE; Start at 19:30 Nitroglycerin (Nitroglycerin (Sl Tab) 0.4 Mg) 1 tab Q5M PRN SL ANGINA; Start at 19:30 Phenobarbital (Luminal) 64.8 mg BID PO Last administered on 01/04/17 23:45; Admin Dose 64.8 MG; Start 01/04/17 at 21:00; Status Future Hold Topiramate (Topamax) 200 mg BID PO ; Start 01/05/17 at 21:00; Status Future Hold Miscellaneous Information 1 ea NOTE XX ; Start 01/04/17 at 19:30 Glucose (Glutose) 15 gm Q15M PRN PO DECREASED GLUCOSE; Start 01/04/17 at 19:30 Glucose (Glutose) 22.5 gm Q15M PRN PO DECREASED GLUCOSE; Start 01/04/17 at 19:30 Dextrose (D50w Syringe) 25 ml Q15M PRN IV DECREASED GLUCOSE Last administered on 01/08/17 05:36; Admin Dose 25 ML; Start 01/04/17 at 19:30 Dextrose (D50w Syringe) 50 ml Q15M PRN IV DECREASED GLUCOSE; Start 01/04/17 at 19:30 Glucagon (Glucagen) 1 mg Q15M PRN IM DECREASED GLUCOSE; Start 01/04/17 at 19:30 Glucose (Glutose) 15 gm Q15M PRN BUCCAL DECREASED GLUCOSE; Start 01/04/17 at 19: 30 Phenytoin (Dilantin Susp Cup) 100 mg TID PO Last administered on 01/04/17 23:44 ; Admin Dose 100 MG; Start 01/04/17 at 21:50; Status Future Hold Clonazepam 0.5 mg 0.5 mg Q8H PO Last administered on 01/04/17 23:45; Admin Dose 0.5 MG; Start 01/04/17 at 23:00; Status Future Hold Norepinephrine 16 mg/Dextrose 500 ml @ 1.87 mls/hr TITRATE IV Last administered on 01/07/17 00:23; Admin Dose 15 MLS/HR; Start 01/05/17 at 00:30 Fentanyl 100 ml @ 2.5 mls/hr TITRATE IV Last administered on 01/21/17 10:05; Admin Dose 10 MLS/HR; Start 01/05/17 at 08:39 Midazolam HCl 50 ml @ 1 mls/hr TITRATE IV Last administered on 01/20/17 23:50 ; Admin Dose 5 MLS/HR; Start 01/05/17 at 08:41 Levetiracetam 100 ml @ 400 mls/hr Q12 IVPB Last administered on 01/21/17 08: 24; Admin Dose 400 MLS/HR; Start 01/05/17 at 11:30 Vasopressin 60 unit/Dextrose 60 ml @ 1.2 mls/hr Q12H IV Last administered on 22:32; Admin Dose 2.4 MLS/HR; Start 01/05/17 at 17:30 Epinephrine 4 mg/ Sodium Chloride 250 ml @ 0 mls/hr TITRATE IV ; Start 01/05/17 at 18:30 Phenylephrine HCl/ Dextrose (Robert-Syneph/D5W) 500 ml @ 18.75 mls/ hr TITRATE IV Last administered on 01/20/17 02:34; Admin Dose 1.87 MLS/HR; Start 01/05/17 at 20:30 Acetaminophen (Tylenol Liquid) 650 mg Q4H PRN NGT PAIN AND OR ELEVATED TEMP Last administered on 01/19/17 17:32; Admin Dose 650 MG; Start 01/06/17 at 04:30 Insulin Glargine 10 unit 10 unit DAILY SC Last administered on 01/07/17 08:19; Admin Dose 10 UNIT; Start 01/06/17 at 14:00; Status Future Hold Acetaminophen (Ofirmev 1000mg/ 100ml Iv) 100 ml @ 400 mls/hr Q6H PRN IVPB FEVER Last administered on 01/20/17 00:55; Admin Dose 400 MLS/HR; Start at 06:30 IV Flush (NS 10 ml) 10 ml PRN PRN IV IV PROTOCOL; Start 01/10/17 at 11:30 Amiodarone HCl (Cordarone) 200 mg BID GTB Last administered on 01/20/17 08:06 ; Admin Dose 200 MG; Start 01/11/17 at 12:00 Diagnostic Test (Pha) (Accu-Chek) 1 ea Q4H XX Last administered on 01/21/17 12 :31; Admin Dose 1 EA; Start 01/11/17 at 17:00 Epoetin Mina (Epogen (Esrd)) 10,000 units [id number]@17 SC Last administered on 18:42; Admin Dose 10,000 UNITS; Start 01/13/17 at 17:00 Insulin Aspart (Adult SC Insulin - Moder... Q4 SC Last administered on 21:08; Admin Dose 2 UNIT; Start 01/13/17 at 09:00 Meropenem/Sodium Chloride 50 ml @ 200 mls/hr Q12H IVPB Last administered on 08:24; Admin Dose 200 MLS/HR; Start 01/13/17 at 10:00 Pantoprazole 80 mg/Sodium Chloride 100 ml @ 10 mls/hr Q10H IV Last administered on 01/21/17 08:24; Admin Dose 10 MLS/HR; Start 01/14/17 at 06:00 Octreotide Acetate 500 mcg/ Sodium Chloride 50 ml @ 2.5 mls/hr Q20H IV Last administered on 01/20/17 21:01; Admin Dose 2.5 MLS/HR; Start 01/14/17 at 06:30 Vancomycin HCl (Vancocin) 250 ml @ 125 mls/hr Q72H IVPB Last administered on 06:01; Admin Dose 125 MLS/HR; Start 01/16/17 at 06:00 Metoprolol Tartrate (Lopressor) 25 mg BID PO Last administered on 01/20/17 08: 07; Admin Dose 25 MG; Start 01/15/17 at 15:00 Al Hydrox/Mg Hydrox/ Simethicone 30 ml 30 ml Q4 GTB Last administered on 12:09; Admin Dose 30 ML; Start 01/15/17 at 17:00 Caspofungin 50 mg/ Sodium Chloride 250 ml @ 250 mls/hr Q24H IVPB Last administered on 01/20/17 16:06; Admin Dose 250 MLS/HR; Start 01/17/17 at 14:30 Dextrose (D5W) 1,000 ml @ 150 mls/hr Q6H40M IV Last administered on 01/21/17 08:25; Admin Dose 150 MLS/HR; Start 01/18/17 at 08:30 Metoclopramide HCl 10 mg 10 mg Q6 IV Last administered on 01/21/17 12:28; Admin Dose 10 MG; Start 01/18/17 at 12:00 Total Parenteral Nutrition 1,000 ml @ 75 mls/hr [id number] IV Last administered on 01/21/17 00:35; Admin Dose 75 MLS/HR; Start 01/18/17 at 19:00 Metronidazole (Flagyl 500 Mg (Pmx)) 100 ml @ 100 mls/hr Q8 IVPB Last administered on 01/21/17 05:19; Admin Dose 100 MLS/HR; Start 01/20/17 at 14:00 LIBRADO CLARKE MD Jan 21, 2017 13:11
[2017-01-21] MEDS: CASPOFUNGIN 50 MG in SOD CHLORIDE 0.9% 250 ML IVPB SCH (14:30)
[2017-01-21] MEDS ORDERED: EPHEDrine SULFATE 50 MG/5 ML SYG ONE (15:41)
[2017-01-21] MEDS ORDERED: PROPOFOL 20 ML ONE (15:41)
[2017-01-21] MEDS ORDERED: CEFAZOLIN 1 GM/50 ML (PMX) 50 ML IVPB SCH (16:30)
[2017-01-21] MEDS: morphine 2 MG INJ IV PRN (23:40)
[2017-01-22] VITALS (31 sets, daily range): BP systolic 89–132; BP diastolic 57–85; PULSE 109–126; RESP 22–31
[2017-01-22] MEDS: AL HYDROX/MG HYDROX/SIMETH 30 ML CUP GTB SCH ×6 (00:27→20:29)
[2017-01-22] MEDS: ACCU-CHEK XX SCH ×5 (00:39→17:37)
[2017-01-22] MEDS: Insulin NOVOLOG SS MODERATE Algorithm(NPO/TPN/ENTERAL FEEDS) SC SCH ×5 (00:39→17:00)
[2017-01-22] MEDS: TPN 1,000 ML IV SCH (03:25)
[2017-01-22] MEDS: VASOPRESSIN 60 UNIT in DEXTROSE 5% 57 ML IV SCH ×2 (04:32→17:30)
--- NOTE | 2017-01-22 04:56 | OPR ---
DATE OF OPERATION: PROCEDURE: Esophagogastroduodenoscopy. PREOPERATIVE DIAGNOSIS: Patient presenting with history of anemia and having melanotic stools. She had an ERCP done several days ago. Rule out peptic ulcer disease, AVM of the stomach, rule out sphincterotomy site causing the bleeding. POSTOPERATIVE DIAGNOSIS: There is a clot in the ampullary area with minimal oozing of blood. This is felt to be the source of the bleeding. Hemoclips were applied, epinephrine was injected and cauterization was performed. OPERATION PERFORMED: After the informed written consent is obtained, the patient was asked to lay on the left lateral side, actually in the prone position. Intravenous anesthesia was given by the POLYSOMNOGRAPHY TECHNICIAN. When the patient became somnolent, the Olympus video upper endoscope was introduced into the oropharynx and then into the esophagus. The esophagus appeared to show normal findings. Stomach showed minimal gastritis. Duodenum showed evidence of a clot sitting on the ampulla area indicating this may be the source of the bleeding. For better orientation and therapeutic purposes, scope was withdrawn. The ERCP scope was inserted into this area and the for hemoclips around this clotted area to prevent further bleeding. Minimal oozing of blood was noted. At this time by using the bipolar cauterization probe, cauterization was performed. Subsequently 1/10,000 epinephrine, 6 cc was injected around this area to prevent further bleeding. Scope at this time was withdrawn and the procedure was terminated. I must mention that the stent noted in the bile duct part of the system. Procedure was terminated. PLAN: Recommend watching the patient closely. If the patient were to bleed again severely, then angiography and embolization may be needed. Dictated By: Chaitanya Green MD /[email or web address] /Document#: [id number]
[2017-01-22] MEDS: DEXTROSE 5% 1,000 ML IV SCH ×2 (05:09→12:30)
[2017-01-22] MEDS: METOCLOPRAMIDE 10 MG INJ IV SCH ×3 (05:09→17:37)
[2017-01-22] MEDS: metroNIDAZOLE 500 MG/NS (PMX) 100 ML IVPB SCH ×3 (05:09→21:29)
[2017-01-22] MEDS: morphine 2 MG INJ IV PRN (05:10)
[2017-01-22 05:26] LABS: BASOPHILS % 0.2 % (0.0-2.0); EOSINOPHILS # 0.1 10^3/ul (0.0-0.5); EOSINOPHILS % 0.3 % (0.0-7.0); HEMATOCRIT 22.8 % (37.0-47.0); LYMPHOCYTES # 1.3 10^3/ul (0.8-2.9); LYMPHOCYTES % 7.1 % (15.0-51.0); MEAN CORPUSCULAR HEMOGLOBIN 29.8 pg (29.0-33.0); MEAN CORPUSCULAR HGB CONC 30.7 g/dl (32.0-37.0); MEAN PLATELET VOLUME 11.1 fl (7.4-10.4); MONOCYTE # 1.2 10^3/ul (0.3-0.9); MONOCYTES % 6.5 % (0.0-11.0); NEUTROPHIL # 14.5 10^3/ul (1.6-7.5); NEUTROPHILS % 81.5 % (39.0-77.0); PLATELET COUNT 450 10^3/UL (140-415); RED BLOOD COUNT 2.35 10^6/ul (4.20-5.40); RED CELL DISTRIBUTION WIDTH 16.1 % (11.5-14.5); WHITE BLOOD COUNT 17.8 10^3/ul (4.8-10.8)
[2017-01-22 05:44] LABS: MAGNESIUM 2.6 mg/dl (1.7-2.5); PHOSPHORUS 3.4 mg/dl (2.5-4.9)
[2017-01-22 05:58] LABS: POSITIVE DIFF @See below
[2017-01-22] MEDS: PANTOPRAZOLE (EC) 40 MG TAB PO SCH (06:00)
[2017-01-22 06:04] LABS: ALBUMIN 2.2 g/dl (3.3-4.9); ALBUMIN/GLOBULIN RATIO 0.61; BILIRUBIN,INDIRECT 0.1 mg/dl (0-1.1); BILIRUBIN,TOTAL 0.1 mg/dl (0.2-1.3); CREATININE 2.59 mg/dl (0.44-1.00); TOTAL PROTEIN 5.8 g/dl (6.1-8.1)
[2017-01-22 07:08] LABS: POTASSIUM 6.8 mmol/L (3.5-5.1)
[2017-01-22] MEDS: VANCOMYCIN 1 GM in NS 250 ML IVPB SCH (07:27)
[2017-01-22] MEDS: METOPROLOL 25 MG TAB PO SCH ×2 (08:13→20:29)
[2017-01-22] MEDS: MEROPENEM 500MG/50 ML (PMX) 50 ML IVPB SCH ×2 (08:14→21:24)
[2017-01-22] MEDS: AMIODARONE 200 MG TAB GTB SCH ×2 (08:14→20:34)
[2017-01-22] MEDS: LEVETIRACETAM 1000 MG (PMX) 100 ML IVPB SCH ×2 (08:14→20:29)
[2017-01-22] MEDS: BALSAM PERU/CASTOR OIL 60 GM TUBE TOP SCH (08:28)
[2017-01-22 08:44] LABS: HEMATOCRIT 22.7 % (37.0-47.0); HEMOGLOBIN 7.3 g/dl (12.0-16.0); MEAN CORPUSCULAR HEMOGLOBIN 30.3 pg (29.0-33.0); MEAN CORPUSCULAR HGB CONC 32.2 g/dl (32.0-37.0); MEAN CORPUSCULAR VOLUME 94.2 fl (82.0-101.0); MEAN PLATELET VOLUME 10.6 fl (7.4-10.4); PLATELET COUNT 470 10^3/UL (140-415); RED BLOOD COUNT 2.41 10^6/ul (4.20-5.40); RED CELL DISTRIBUTION WIDTH 15.7 % (11.5-14.5); WHITE BLOOD COUNT 18.1 10^3/ul (4.8-10.8)
[2017-01-22 08:53] LABS: POSITIVE DIFF Y
[2017-01-22 09:10] LABS: ALBUMIN/GLOBULIN RATIO 0.58
[2017-01-22 09:14] LABS: ALBUMIN 2.5 g/dl (3.3-4.9); BILIRUBIN,INDIRECT 0.1 mg/dl (0-1.1); BILIRUBIN,TOTAL 0.1 mg/dl (0.2-1.3); CALCIUM 7.5 mg/dl (8.4-10.2); CREATININE 2.51 mg/dl (0.44-1.00); POTASSIUM 4.2 mmol/L (3.5-5.1); TOTAL PROTEIN 6.8 g/dl (6.1-8.1)
[2017-01-22 10:40] LABS: LYMPHOCYTES # 1.1 10^3/ul (0.8-2.9); MONOCYTE # 0.7 10^3/ul (0.3-0.9); NEUTROPHIL # 15.6 10^3/ul (1.6-7.5)
[2017-01-22 10:41] LABS: BASOPHIL # 0.4 10^3/ul (0.0-0.1)
--- NOTE | 2017-01-22 11:03 | CONS ---
Date/Time of Note Date/Time of Note DATE: 01/22/17 TIME: 11:01 Assessment/Plan Assessment/Plan Additional Assessment/Plan Ventilator setting; AC of 26, tidal volume 450, PEEP of 5, 30% FiO2. Patient currently on TPN. Assessment recommendations; 1. Patient admitted with gallstone pancreatitis status post ERCP with respiratory failure and sepsis ultimately requiring tracheostomy. 2. Anemia. 3. Renal insufficiency. 4. Gastritis. Continue current treatment. Patient awaiting G-tube placement. Consultation Date/Type/Reason Admit Date/Time Jan 04, 2017 at 19:10 Initial Consult Date 01/11/17 Type of Consultation: Pulmonary/critical care Referring Provider: YING CASTAÑEDA 24 HR Interval Summary Free Text/Dictation Patient condition is stable. Has remained hemodynamically stable. Remains awake and alert. General exam; elderly woman, on ventilator via tracheostomy, awake and alert. Currently in no distress. Exam/Review of Systems Vital Signs Vitals Vital Signs Date Time Temp Pulse Resp B/P Pulse Ox O2 Delivery O2 Flow Rate FiO2 01/22/17 09:00 115 26 99 30 01/22/17 06:00 119/74 Mechanical Ventilator 01/22/17 05:00 99.8 Intake and Output 01/21/17 01/21/17 01/22/17 15:00 23:00 07:00 Intake Total 1385 ml 1925 ml 1450 ml Output Total 1275 ml 1850 ml 2090 ml Balance 110 ml 75 ml -640 ml Exam HEENT exam; supple neck, no JVD. No lymphadenopathy. Midline trachea. No thyromegaly. Tracheostomy in place with clean insertion site. Patient has fair dentition. Pupils are midsize and reactive to light. Chest examination; diminished but clear breath sounds bilaterally. S1-S2 audible, no murmurs. Regular rhythm. Abdomen exam; soft, abdominal binder in place. Bowel sounds are sluggish. Extremity exam; trace generalized edema. APPAREL MANAGER exam; patient is awake and follows simple commands and moves all 4 extremities on command. Results Result Diagram: 01/22/17 0825 01/22/17 0825 Results 24 hrs Laboratory Tests Test 01/21/17 12:31 01/21/17 17:03 01/21/17 21:04 01/22/17 00:34 Bedside Glucose 111 120 104 138 Test 01/22/17 05:00 01/22/17 05:08 01/22/17 08:25 01/22/17 08:31 White Blood Count 17.8 H 18.1 H Red Blood Count 2.35 L 2.41 L Hemoglobin 7.0 L 7.3 L Hematocrit 22.8 L 22.7 L Mean Corpuscular Volume 97.0 94.2 Mean Corpuscular Hemoglobin 29.8 30.3 Mean Corpuscular Hemoglobin Concent 30.7 L 32.2 Red Cell Distribution Width 16.1 H 15.7 H Platelet Count 450 H 470 H Mean Platelet Volume 11.1 H 10.6 H Neutrophils % 81.5 H 86.0 H Lymphocytes % 7.1 L 6.0 L Monocytes % 6.5 4.0 Eosinophils % 0.3 Pending Basophils % 0.2 2.0 Nucleated Red Blood Cells % 0.0 0.0 Neutrophils # 14.5 H 15.6 H Lymphocytes # 1.3 1.1 Monocytes # 1.2 H 0.7 Eosinophils # 0.1 Pending Basophils # 0.0 0.4 H Nucleated Red Blood Cells # 0.0 0.0 Sodium Level 131 L 140 Potassium Level 6.8 #*H 4.2 # Chloride Level 99 106 Carbon Dioxide Level 17 L 19 L Anion Gap 22 H 19 H Blood Urea Nitrogen 54 H 59 H Creatinine 2.59 H 2.51 H Glucose Level 779 #*H 137 # Calcium Level 8.0 L 7.5 L Phosphorus Level 3.4 Magnesium Level 2.6 H Total Bilirubin 0.1 L 0.1 L Direct Bilirubin 0.00 0.00 Indirect Bilirubin 0.1 0.1 Aspartate Amino Transf (AST/SGOT) 29 30 Alanine Aminotransferase (ALT/SGPT) 22 27 Alkaline Phosphatase 185 H 258 H Total Protein 5.8 L 6.8 # Albumin 2.2 L 2.5 L Globulin 3.60 H 4.30 H Albumin/Globulin Ratio 0.61 0.58 Vancomycin Level Trough 7.2 L Bedside Glucose 128 132 Band Neutrophils # 15.6 H Medications Medications Current Medications Ondansetron HCl (Zofran Inj) 4 mg Q6H PRN IV NAUSEA AND/OR VOMITING; Start 01/04 at 19:30 Acetaminophen/ Hydrocodone Bitart ([place] (5/325)) 1 tab Q6H PRN PO MODERATE PAIN LEVEL 4-6; Start 01/04/17 at 19:30 Morphine Sulfate (morphine) 2 mg Q4H PRN IV SEVERE PAIN LEVEL 7-10 Last administered on 01/22/17 05:10; Admin Dose 2 MG; Start 01/04/17 at 19:30 Docusate Sodium (Colace) 100 mg Q12H PRN PO CONSTIPATION; Start 01/04/17 at 19: 30 Magnesium Hydroxide (Milk Of Mag) 30 ml DAILY PRN PO CONSTIPATION; Start at 19:30 Sodium Biphosphate/ Sodium Phosphate (Fleet Enema) 133 ml DAILY PRN [place] CONSTIPATION; Start 01/04/17 at 19:30 Lorazepam (Ativan) 0.5 mg Q6H PRN IV ANXIETY Last administered on 01/20/17 05: 25; Admin Dose 0.5 MG; Start 01/04/17 at 19:30 Hydralazine HCl (Apresoline) 10 mg Q6H PRN IV ELEVATED BLOOD PRESSURE; Start at 19:30 Nitroglycerin (Nitroglycerin (Sl Tab) 0.4 Mg) 1 tab Q5M PRN SL ANGINA; Start at 19:30 Phenobarbital (Luminal) 64.8 mg BID PO Last administered on 01/04/17 23:45; Admin Dose 64.8 MG; Start 01/04/17 at 21:00; Status Future Hold Topiramate (Topamax) 200 mg BID PO ; Start 01/05/17 at 21:00; Status Future Hold Miscellaneous Information 1 ea NOTE XX ; Start 01/04/17 at 19:30 Glucose (Glutose) 15 gm Q15M PRN PO DECREASED GLUCOSE; Start 01/04/17 at 19:30 Glucose (Glutose) 22.5 gm Q15M PRN PO DECREASED GLUCOSE; Start 01/04/17 at 19:30 Dextrose (D50w Syringe) 25 ml Q15M PRN IV DECREASED GLUCOSE Last administered on 01/08/17 05:36; Admin Dose 25 ML; Start 01/04/17 at 19:30 Dextrose (D50w Syringe) 50 ml Q15M PRN IV DECREASED GLUCOSE; Start 01/04/17 at 19:30 Glucagon (Glucagen) 1 mg Q15M PRN IM DECREASED GLUCOSE; Start 01/04/17 at 19:30 Glucose (Glutose) 15 gm Q15M PRN BUCCAL DECREASED GLUCOSE; Start 01/04/17 at 19: 30 Phenytoin (Dilantin Susp Cup) 100 mg TID PO Last administered on 01/04/17 23:44 ; Admin Dose 100 MG; Start 01/04/17 at 21:50; Status Future Hold Clonazepam 0.5 mg 0.5 mg Q8H PO Last administered on 01/04/17 23:45; Admin Dose 0.5 MG; Start 01/04/17 at 23:00; Status Future Hold Norepinephrine 16 mg/Dextrose 500 ml @ 1.87 mls/hr TITRATE IV Last administered on 01/07/17 00:23; Admin Dose 15 MLS/HR; Start 01/05/17 at 00:30 Fentanyl 100 ml @ 2.5 mls/hr TITRATE IV Last administered on 01/21/17 10:05; Admin Dose 10 MLS/HR; Start 01/05/17 at 08:39 Midazolam HCl 50 ml @ 1 mls/hr TITRATE IV Last administered on 01/21/17 10:05 ; Admin Dose 5 MLS/HR; Start 01/05/17 at 08:41 Levetiracetam 100 ml @ 400 mls/hr Q12 IVPB Last administered on 01/22/17 08: 14; Admin Dose 400 MLS/HR; Start 01/05/17 at 11:30 Vasopressin 60 unit/Dextrose 60 ml @ 1.2 mls/hr Q12H IV Last administered on 22:32; Admin Dose 2.4 MLS/HR; Start 01/05/17 at 17:30 Epinephrine 4 mg/ Sodium Chloride 250 ml @ 0 mls/hr TITRATE IV ; Start 01/05/17 at 18:30 Phenylephrine HCl/ Dextrose (Robert-Syneph/D5W) 500 ml @ 18.75 mls/ hr TITRATE IV Last administered on 01/20/17 02:34; Admin Dose 1.87 MLS/HR; Start 01/05/17 at 20:30 Acetaminophen (Tylenol Liquid) 650 mg Q4H PRN NGT PAIN AND OR ELEVATED TEMP Last administered on 01/19/17 17:32; Admin Dose 650 MG; Start 01/06/17 at 04:30 Insulin Glargine 10 unit 10 unit DAILY SC Last administered on 01/07/17 08:19; Admin Dose 10 UNIT; Start 01/06/17 at 14:00; Status Future Hold Acetaminophen (Ofirmev 1000mg/ 100ml Iv) 100 ml @ 400 mls/hr Q6H PRN IVPB FEVER Last administered on 01/20/17 00:55; Admin Dose 400 MLS/HR; Start at 06:30 IV Flush (NS 10 ml) 10 ml PRN PRN IV IV PROTOCOL; Start 01/10/17 at 11:30 Amiodarone HCl (Cordarone) 200 mg BID GTB Last administered on 01/22/17 08:14 ; Admin Dose 200 MG; Start 01/11/17 at 12:00 Diagnostic Test (Pha) (Accu-Chek) 1 ea Q4H XX Last administered on 01/22/17 08 :28; Admin Dose 1 EA; Start 01/11/17 at 17:00 Epoetin Mina (Epogen (Esrd)) 10,000 units [id number]@17 SC Last administered on 18:42; Admin Dose 10,000 UNITS; Start 01/13/17 at 17:00 Insulin Aspart (Adult SC Insulin - Moder... Q4 SC Last administered on 21:08; Admin Dose 2 UNIT; Start 01/13/17 at 09:00 Meropenem/Sodium Chloride (Merrem 500mg/50 ml(Pmx)) 50 ml @ 200 mls/hr Q12H IVPB Last administered on 01/22/17 08:14; Admin Dose 200 MLS/HR; Start at 10:00 Metoprolol Tartrate (Lopressor) 25 mg BID PO Last administered on 01/22/17 08: 13; Admin Dose 25 MG; Start 01/15/17 at 15:00 Al Hydrox/Mg Hydrox/ Simethicone 30 ml 30 ml Q4 GTB Last administered on 08:14; Admin Dose 30 ML; Start 01/15/17 at 17:00 Caspofungin 50 mg/ Sodium Chloride 250 ml @ 250 mls/hr Q24H IVPB Last administered on 01/21/17 14:30; Admin Dose 250 MLS/HR; Start 01/17/17 at 14:30 Dextrose (D5W) 1,000 ml @ 150 mls/hr Q6H40M IV Last administered on 01/22/17 05:09; Admin Dose 150 MLS/HR; Start 01/18/17 at 08:30 Metoclopramide HCl 10 mg 10 mg Q6 IV Last administered on 01/22/17 05:09; Admin Dose 10 MG; Start 01/18/17 at 12:00 Total Parenteral Nutrition 1,000 ml @ 75 mls/hr [id number] IV Last administered on 01/22/17 03:25; Admin Dose 75 MLS/HR; Start 01/18/17 at 19:00 Metronidazole (Flagyl 500 Mg (Pmx)) 100 ml @ 100 mls/hr Q8 IVPB Last administered on 01/22/17 05:09; Admin Dose 100 MLS/HR; Start 01/20/17 at 14:00 Pantoprazole 40 mg 40 mg DAILY@06 PO ; Start 01/22/17 at 06:00 Vancomycin HCl/ Sodium Chloride (Vancocin/NS) 250 ml @ 83.333 mls/ hr Q48H IVPB ; Start 01/24/17 at 06:00 JAYME QUEZADA Jan 22, 2017 11:03
--- NOTE | 2017-01-22 13:11 | CONS ---
Date/Time of Note Date/Time of Note DATE: 01/22/17 TIME: 13:09 Assessment/Plan Assessment/Plan Chief Complaint/Hosp Course Patient is status post PEG yesterday, she is awake responsive in no distress T-max and current 100.2 pulse 118 respirations 26 blood pressure 96/62 saturation 98 on 30% WBC 18.1 H&H 7.3 and 22.7 platelets 470 neutrophils 86 BN 59 creatinine 2.51 Indwelling's: Tracheostomy, PEG Matias catheter right femoral Gael right upper extremity PICC line CT of the abdomen and pelvis on January 14 revealed severe pancreatitis with surrounding edema and fluid, worse than seen previously Antibiotics: Vancomycin, meropenem day #16 Cancidas day #7, Flagyl #2 Microbiology: Blood culture on admission grew coag negative staph species urine culture grew E. coli repeat blood and urine culture had been negative Physical examination: Chronically ill-appearing elderly woman who looks comfortable on vent. Head atraumatic normocephalic, sclera nonicteric. Neck is supple, trachea midline. Chest rise symmetrical, breath sounds diminished to bases Heart: S1, S2, tachycardic Abdomen soft bowel tones present. Extremities with trace edema, no cyanosis Assessment: 1. Severe sepsis with ongoing fevers and leukocytosis status post shock ==> r/ o line sepsis 2. Severe, acute pancreatitis, possibly developing pseudocyst 3. Choledocholithiasis, status post ERCP 01/12/17 with removal of the stone and stent placement 4. Coag negative staph bacteremia, likely contaminant 5. Acute respiratory failure 6. Acute renal failure requiring hemodialysis 7. Fungal urinary tract infection 8. Diarrhea, rule out C. difficile Plan: Clinically and hemodynamically stable, still with ongoing fevers and leukocytosis, had been off hemodialysis for 4 days, continue antibiotics, consider femoral Gael DC. Consider repeat CT abdomen Discussed with staff Problems: Consultation Date/Type/Reason Admit Date/Time Jan 04, 2017 at 19:10 Initial Consult Date 01/11/17 Type of Consultation: id Referring Provider: YING CASTAÑEDA Exam/Review of Systems Vital Signs Vitals Vital Signs Date Time Temp Pulse Resp B/P Pulse Ox O2 Delivery O2 Flow Rate FiO2 01/22/17 12:00 118 01/22/17 12:00 100.2 26 96/62 98 Mechanical Ventilator 7/23/17 11:15 30 Intake and Output 01/21/17 01/21/17 01/22/17 15:00 23:00 07:00 Intake Total 1385 ml 1925 ml 1450 ml Output Total 1275 ml 1850 ml 2090 ml Balance 110 ml 75 ml -640 ml Results Result Diagram: 01/22/17 0825 01/22/17 0825 Results 24 hrs Laboratory Tests Test 01/21/17 17:03 01/21/17 21:04 01/22/17 00:34 01/22/17 05:00 Bedside Glucose 120 104 138 White Blood Count 17.8 H Red Blood Count 2.35 L Hemoglobin 7.0 L Hematocrit 22.8 L Mean Corpuscular Volume 97.0 Mean Corpuscular Hemoglobin 29.8 Mean Corpuscular Hemoglobin Concent 30.7 L Red Cell Distribution Width 16.1 H Platelet Count 450 H Mean Platelet Volume 11.1 H Neutrophils % 81.5 H Lymphocytes % 7.1 L Monocytes % 6.5 Eosinophils % 0.3 Basophils % 0.2 Nucleated Red Blood Cells % 0.0 Neutrophils # 14.5 H Lymphocytes # 1.3 Monocytes # 1.2 H Eosinophils # 0.1 Basophils # 0.0 Nucleated Red Blood Cells # 0.0 Sodium Level 131 L Potassium Level 6.8 #*H Chloride Level 99 Carbon Dioxide Level 17 L Anion Gap 22 H Blood Urea Nitrogen 54 H Creatinine 2.59 H Glucose Level 779 #*H Calcium Level 8.0 L Phosphorus Level 3.4 Magnesium Level 2.6 H Total Bilirubin 0.1 L Direct Bilirubin 0.00 Indirect Bilirubin 0.1 Aspartate Amino Transf (AST/SGOT) 29 Alanine Aminotransferase (ALT/SGPT) 22 Alkaline Phosphatase 185 H Total Protein 5.8 L Albumin 2.2 L Globulin 3.60 H Albumin/Globulin Ratio 0.61 Vancomycin Level Trough 7.2 L Test 01/22/17 05:08 01/22/17 08:25 01/22/17 08:31 Bedside Glucose 128 132 White Blood Count 18.1 H Red Blood Count 2.41 L Hemoglobin 7.3 L Hematocrit 22.7 L Mean Corpuscular Volume 94.2 Mean Corpuscular Hemoglobin 30.3 Mean Corpuscular Hemoglobin Concent 32.2 Red Cell Distribution Width 15.7 H Platelet Count 470 H Mean Platelet Volume 10.6 H Neutrophils % 86.0 H Lymphocytes % 6.0 L Monocytes % 4.0 Eosinophils % 0.0 Basophils % 2.0 Nucleated Red Blood Cells % 0.0 Neutrophils # 15.6 H Band Neutrophils # 15.6 H Lymphocytes # 1.1 Monocytes # 0.7 Eosinophils # 0.0 Basophils # 0.4 H Nucleated Red Blood Cells # 0.0 Sodium Level 140 Potassium Level 4.2 # Chloride Level 106 Carbon Dioxide Level 19 L Anion Gap 19 H Blood Urea Nitrogen 59 H Creatinine 2.51 H Glucose Level 137 # Calcium Level 7.5 L Total Bilirubin 0.1 L Direct Bilirubin 0.00 Indirect Bilirubin 0.1 Aspartate Amino Transf (AST/SGOT) 30 Alanine Aminotransferase (ALT/SGPT) 27 Alkaline Phosphatase 258 H Total Protein 6.8 # Albumin 2.5 L Globulin 4.30 H Albumin/Globulin Ratio 0.58 Medications Medications Current Medications Ondansetron HCl (Zofran Inj) 4 mg Q6H PRN IV NAUSEA AND/OR VOMITING; Start 01/04 at 19:30 Acetaminophen/ Hydrocodone Bitart ([place] (5/325)) 1 tab Q6H PRN PO MODERATE PAIN LEVEL 4-6; Start 01/04/17 at 19:30 Morphine Sulfate (morphine) 2 mg Q4H PRN IV SEVERE PAIN LEVEL 7-10 Last administered on 01/22/17t 05:10; Admin Dose 2 MG; Start 01/04/17 at 19:30 Docusate Sodium (Colace) 100 mg Q12H PRN PO CONSTIPATION; Start 01/04/17 at 19: 30 Magnesium Hydroxide (Milk Of Mag) 30 ml DAILY PRN PO CONSTIPATION; Start at 19:30 Sodium Biphosphate/ Sodium Phosphate (Fleet Enema) 133 ml DAILY PRN ME CONSTIPATION; Start 01/04/17 at 19:30 Lorazepam (Ativan) 0.5 mg Q6H PRN IV ANXIETY Last administered on 01/20/17t 05: 25; Admin Dose 0.5 MG; Start 01/04/17 at 19:30 Hydralazine HCl (Apresoline) 10 mg Q6H PRN IV ELEVATED BLOOD PRESSURE; Start at 19:30 Nitroglycerin (Nitroglycerin (Sl Tab) 0.4 Mg) 1 tab Q5M PRN SL ANGINA; Start at 19:30 Phenobarbital (Luminal) 64.8 mg BID PO Last administered on 01/04/17 23:45; Admin Dose 64.8 MG; Start 01/04/17 at 21:00; Status Future Hold Topiramate (Topamax) 200 mg BID PO ; Start 01/05/17 at 21:00; Status Future Hold Miscellaneous Information 1 ea NOTE XX ; Start 01/04/17 at 19:30 Glucose (Glutose) 15 gm Q15M PRN PO DECREASED GLUCOSE; Start 01/04/17 at 19:30 Glucose (Glutose) 22.5 gm Q15M PRN PO DECREASED GLUCOSE; Start 01/04/17 at 19:30 Dextrose (D50w Syringe) 25 ml Q15M PRN IV DECREASED GLUCOSE Last administered on 01/08/17 05:36; Admin Dose 25 ML; Start 01/04/17 at 19:30 Dextrose (D50w Syringe) 50 ml Q15M PRN IV DECREASED GLUCOSE; Start 01/04/17 at 19:30 Glucagon (Glucagen) 1 mg Q15M PRN IM DECREASED GLUCOSE; Start 01/04/17 at 19:30 Glucose (Glutose) 15 gm Q15M PRN BUCCAL DECREASED GLUCOSE; Start 01/04/17 at 19: 30 Phenytoin (Dilantin Susp Cup) 100 mg TID PO Last administered on 01/04/17 23:44 ; Admin Dose 100 MG; Start 01/04/17 at 21:50; Status Future Hold Clonazepam 0.5 mg 0.5 mg Q8H PO Last administered on 01/04/17 23:45; Admin Dose 0.5 MG; Start 01/04/17 at 23:00; Status Future Hold Norepinephrine 16 mg/Dextrose 500 ml @ 1.87 mls/hr TITRATE IV Last administered on 01/07/17 00:23; Admin Dose 15 MLS/HR; Start 01/05/17 at 00:30 Fentanyl 100 ml @ 2.5 mls/hr TITRATE IV Last administered on 01/21/17 10:05; Admin Dose 10 MLS/HR; Start 01/05/17 at 08:39 Midazolam HCl 50 ml @ 1 mls/hr TITRATE IV Last administered on 01/21/17 10:05 ; Admin Dose 5 MLS/HR; Start 01/05/17 at 08:41 Levetiracetam 100 ml @ 400 mls/hr Q12 IVPB Last administered on 01/22/17 08: 14; Admin Dose 400 MLS/HR; Start 01/05/17 at 11:30 Vasopressin 60 unit/Dextrose 60 ml @ 1.2 mls/hr Q12H IV Last administered on 22:32; Admin Dose 2.4 MLS/HR; Start 01/05/17 at 17:30 Epinephrine 4 mg/ Sodium Chloride 250 ml @ 0 mls/hr TITRATE IV ; Start 01/05/17 at 18:30 Phenylephrine HCl/ Dextrose (Robert-Syneph/D5W) 500 ml @ 18.75 mls/ hr TITRATE IV Last administered on 01/20/17 02:34; Admin Dose 1.87 MLS/HR; Start 01/05/17 at 20:30 Acetaminophen (Tylenol Liquid) 650 mg Q4H PRN NGT PAIN AND OR ELEVATED TEMP Last administered on 01/19/17 17:32; Admin Dose 650 MG; Start 01/06/17 at 04:30 Insulin Glargine 10 unit 10 unit DAILY SC Last administered on 01/07/17 08:19; Admin Dose 10 UNIT; Start 01/06/17 at 14:00; Status Future Hold Acetaminophen (Ofirmev 1000mg/ 100ml Iv) 100 ml @ 400 mls/hr Q6H PRN IVPB FEVER Last administered on 01/20/17 00:55; Admin Dose 400 MLS/HR; Start at 06:30 IV Flush (NS 10 ml) 10 ml PRN PRN IV IV PROTOCOL; Start 01/10/17 at 11:30 Amiodarone HCl (Cordarone) 200 mg BID GTB Last administered on 01/22/17 08:14 ; Admin Dose 200 MG; Start 01/11/17 at 12:00 Diagnostic Test (Pha) (Accu-Chek) 1 ea Q4H XX Last administered on 01/22/17 08 :28; Admin Dose 1 EA; Start 01/11/17 at 17:00 Epoetin Mina (Epogen (Esrd)) 10,000 units [id number]@17 SC Last administered on 18:42; Admin Dose 10,000 UNITS; Start 01/13/17 at 17:00 Insulin Aspart (Adult SC Insulin - Moder... Q4 SC Last administered on 21:08; Admin Dose 2 UNIT; Start 01/13/17 at 09:00 Meropenem/Sodium Chloride (Merrem 500mg/50 ml(Pmx)) 50 ml @ 200 mls/hr Q12H IVPB Last administered on 01/22/17 08:14; Admin Dose 200 MLS/HR; Start at 10:00 Metoprolol Tartrate (Lopressor) 25 mg BID PO Last administered on 01/22/17 08: 13; Admin Dose 25 MG; Start 01/15/17 at 15:00 Al Hydrox/Mg Hydrox/ Simethicone 30 ml 30 ml Q4 GTB Last administered on 08:14; Admin Dose 30 ML; Start 01/15/17 at 17:00 Caspofungin 50 mg/ Sodium Chloride 250 ml @ 250 mls/hr Q24H IVPB Last administered on 01/21/17 14:30; Admin Dose 250 MLS/HR; Start 01/17/17 at 14:30 Dextrose (D5W) 1,000 ml @ 150 mls/hr Q6H40M IV Last administered on 01/22/17 05:09; Admin Dose 150 MLS/HR; Start 01/18/17 at 08:30 Metoclopramide HCl 10 mg 10 mg Q6 IV Last administered on 01/22/17 05:09; Admin Dose 10 MG; Start 01/18/17 at 12:00 Total Parenteral Nutrition 1,000 ml @ 75 mls/hr [id number] IV Last administered on 01/22/17 03:25; Admin Dose 75 MLS/HR; Start 01/18/17 at 19:00 Metronidazole (Flagyl 500 Mg (Pmx)) 100 ml @ 100 mls/hr Q8 IVPB Last administered on 01/22/17 05:09; Admin Dose 100 MLS/HR; Start 01/20/17 at 14:00 Pantoprazole 40 mg 40 mg DAILY@06 PO ; Start 01/22/17 at 06:00 Vancomycin HCl/ Sodium Chloride (Vancocin/NS) 250 ml @ 83.333 mls/ hr Q48H IVPB ; Start 01/24/17 at 06:00 MIKE TURCIOS NP Jan 22, 2017 13:11
--- NOTE | 2017-01-22 13:30 | CONS ---
Date/Time of Note Date/Time of Note DATE: 01/22/17 TIME: 13:26 Assessment/Plan Assessment/Plan Additional Assessment/Plan 1. Acute renal failure. S/p HD 3 days ago. Good UOP and labs stable. No dialysis today. Remove dialysis catheter and culture due to leukocytosis. 2. S/p tracheostomy. S/p J-tube placement 3. Sepsis 4. Pancreatitis. Tapering off TPN and starting TF via J-tube 5. Respiratory failure, ventilator dependent 6. Hypotension resolve, off pressors 7. Anemia. Hb stable. Consultation Date/Type/Reason Admit Date/Time Jan 04, 2017 at 19:10 Initial Consult Date 01/11/17 Type of Consultation: Renal Referring Provider: YING CASTAÑEDA 24 HR Interval Summary Free Text/Dictation Awake, responsive, on vent appears comfortable Exam/Review of Systems Vital Signs Vitals Vital Signs Date Time Temp Pulse Resp B/P Pulse Ox O2 Delivery O2 Flow Rate FiO2 01/22/17 12:00 118 01/22/17 12:00 100.2 26 96/62 98 Mechanical Ventilator 01/22/17 11:15 30 Intake and Output 01/21/17 01/21/17 01/22/17 15:00 23:00 07:00 Intake Total 1385 ml 1925 ml 1450 ml Output Total 1275 ml 1850 ml 2090 ml Balance 110 ml 75 ml -640 ml Exam Neck: other (tracheostomy present) Respiratory: clear to auscultation Cardiovascular: regular rate and rhythm Gastrointestinal: tender, No bowel sounds, No rebound or guarding Extremities: No edema Results Result Diagram: 01/22/17 0825 01/22/17 0825 Results 24 hrs Laboratory Tests Test 01/21/17 17:03 01/21/17 21:04 01/22/17 00:34 01/22/17 05:00 Bedside Glucose 120 104 138 White Blood Count 17.8 H Red Blood Count 2.35 L Hemoglobin 7.0 L Hematocrit 22.8 L Mean Corpuscular Volume 97.0 Mean Corpuscular Hemoglobin 29.8 Mean Corpuscular Hemoglobin Concent 30.7 L Red Cell Distribution Width 16.1 H Platelet Count 450 H Mean Platelet Volume 11.1 H Neutrophils % 81.5 H Lymphocytes % 7.1 L Monocytes % 6.5 Eosinophils % 0.3 Basophils % 0.2 Nucleated Red Blood Cells % 0.0 Neutrophils # 14.5 H Lymphocytes # 1.3 Monocytes # 1.2 H Eosinophils # 0.1 Basophils # 0.0 Nucleated Red Blood Cells # 0.0 Sodium Level 131 L Potassium Level 6.8 #*H Chloride Level 99 Carbon Dioxide Level 17 L Anion Gap 22 H Blood Urea Nitrogen 54 H Creatinine 2.59 H Glucose Level 779 #*H Calcium Level 8.0 L Phosphorus Level 3.4 Magnesium Level 2.6 H Total Bilirubin 0.1 L Direct Bilirubin 0.00 Indirect Bilirubin 0.1 Aspartate Amino Transf (AST/SGOT) 29 Alanine Aminotransferase (ALT/SGPT) 22 Alkaline Phosphatase 185 H Total Protein 5.8 L Albumin 2.2 L Globulin 3.60 H Albumin/Globulin Ratio 0.61 Vancomycin Level Trough 7.2 L Test 01/22/17 05:08 01/22/17 08:25 01/22/17 08:31 Bedside Glucose 128 132 White Blood Count 18.1 H Red Blood Count 2.41 L Hemoglobin 7.3 L Hematocrit 22.7 L Mean Corpuscular Volume 94.2 Mean Corpuscular Hemoglobin 30.3 Mean Corpuscular Hemoglobin Concent 32.2 Red Cell Distribution Width 15.7 H Platelet Count 470 H Mean Platelet Volume 10.6 H Neutrophils % 86.0 H Lymphocytes % 6.0 L Monocytes % 4.0 Eosinophils % 0.0 Basophils % 2.0 Nucleated Red Blood Cells % 0.0 Neutrophils # 15.6 H Band Neutrophils # 15.6 H Lymphocytes # 1.1 Monocytes # 0.7 Eosinophils # 0.0 Basophils # 0.4 H Nucleated Red Blood Cells # 0.0 Sodium Level 140 Potassium Level 4.2 # Chloride Level 106 Carbon Dioxide Level 19 L Anion Gap 19 H Blood Urea Nitrogen 59 H Creatinine 2.51 H Glucose Level 137 # Calcium Level 7.5 L Total Bilirubin 0.1 L Direct Bilirubin 0.00 Indirect Bilirubin 0.1 Aspartate Amino Transf (AST/SGOT) 30 Alanine Aminotransferase (ALT/SGPT) 27 Alkaline Phosphatase 258 H Total Protein 6.8 # Albumin 2.5 L Globulin 4.30 H Albumin/Globulin Ratio 0.58 Medications Medications Current Medications Ondansetron HCl (Zofran Inj) 4 mg Q6H PRN IV NAUSEA AND/OR VOMITING; Start 01/04 at 19:30 Acetaminophen/ Hydrocodone Bitart ([place] (5/325)) 1 tab Q6H PRN PO MODERATE PAIN LEVEL 4-6; Start 01/04/17 at 19:30 Morphine Sulfate (morphine) 2 mg Q4H PRN IV SEVERE PAIN LEVEL 7-10 Last administered on 01/22/17 05:10; Admin Dose 2 MG; Start 01/04/17 at 19:30 Docusate Sodium (Colace) 100 mg Q12H PRN PO CONSTIPATION; Start 01/04/17 at 19: 30 Magnesium Hydroxide (Milk Of Mag) 30 ml DAILY PRN PO CONSTIPATION; Start at 19:30 Sodium Biphosphate/ Sodium Phosphate (Fleet Enema) 133 ml DAILY PRN ID CONSTIPATION; Start 01/04/17 at 19:30 Lorazepam (Ativan) 0.5 mg Q6H PRN IV ANXIETY Last administered on 01/20/17 05: 25; Admin Dose 0.5 MG; Start 01/04/17 at 19:30 Hydralazine HCl (Apresoline) 10 mg Q6H PRN IV ELEVATED BLOOD PRESSURE; Start at 19:30 Nitroglycerin (Nitroglycerin (Sl Tab) 0.4 Mg) 1 tab Q5M PRN SL ANGINA; Start at 19:30 Phenobarbital (Luminal) 64.8 mg BID PO Last administered on 01/04/17 23:45; Admin Dose 64.8 MG; Start 01/04/17 at 21:00; Status Future Hold Topiramate (Topamax) 200 mg BID PO ; Start 01/05/17 at 21:00; Status Future Hold Miscellaneous Information 1 ea NOTE XX ; Start 01/04/17 at 19:30 Glucose (Glutose) 15 gm Q15M PRN PO DECREASED GLUCOSE; Start 01/04/17 at 19:30 Glucose (Glutose) 22.5 gm Q15M PRN PO DECREASED GLUCOSE; Start 01/04/17 at 19:30 Dextrose (D50w Syringe) 25 ml Q15M PRN IV DECREASED GLUCOSE Last administered on 01/08/17 05:36; Admin Dose 25 ML; Start 01/04/17 at 19:30 Dextrose (D50w Syringe) 50 ml Q15M PRN IV DECREASED GLUCOSE; Start 01/04/17 at 19:30 Glucagon (Glucagen) 1 mg Q15M PRN IM DECREASED GLUCOSE; Start 01/04/17 at 19:30 Glucose (Glutose) 15 gm Q15M PRN BUCCAL DECREASED GLUCOSE; Start 01/04/17 at 19: 30 Phenytoin (Dilantin Susp Cup) 100 mg TID PO Last administered on 01/04/17 23:44 ; Admin Dose 100 MG; Start 01/04/17 at 21:50; Status Future Hold Clonazepam 0.5 mg 0.5 mg Q8H PO Last administered on 01/04/17 23:45; Admin Dose 0.5 MG; Start 01/04/17 at 23:00; Status Future Hold Norepinephrine 16 mg/Dextrose 500 ml @ 1.87 mls/hr TITRATE IV Last administered on 01/07/17 00:23; Admin Dose 15 MLS/HR; Start 01/05/17 at 00:30 Fentanyl 100 ml @ 2.5 mls/hr TITRATE IV Last administered on 01/21/17 10:05; Admin Dose 10 MLS/HR; Start 01/05/17 at 08:39 Midazolam HCl 50 ml @ 1 mls/hr TITRATE IV Last administered on 01/21/17 10:05 ; Admin Dose 5 MLS/HR; Start 01/05/17 at 08:41 Levetiracetam 100 ml @ 400 mls/hr Q12 IVPB Last administered on 01/22/17 08: 14; Admin Dose 400 MLS/HR; Start 01/05/17 at 11:30 Vasopressin 60 unit/Dextrose 60 ml @ 1.2 mls/hr Q12H IV Last administered on 22:32; Admin Dose 2.4 MLS/HR; Start 01/05/17 at 17:30 Epinephrine 4 mg/ Sodium Chloride 250 ml @ 0 mls/hr TITRATE IV ; Start 01/05/17 at 18:30 Phenylephrine HCl/ Dextrose (Robert-Syneph/D5W) 500 ml @ 18.75 mls/ hr TITRATE IV Last administered on 01/20/17 02:34; Admin Dose 1.87 MLS/HR; Start 01/05/17 at 20:30 Acetaminophen (Tylenol Liquid) 650 mg Q4H PRN NGT PAIN AND OR ELEVATED TEMP Last administered on 01/19/17 17:32; Admin Dose 650 MG; Start 01/06/17 at 04:30 Insulin Glargine 10 unit 10 unit DAILY SC Last administered on 01/07/17 08:19; Admin Dose 10 UNIT; Start 01/06/17 at 14:00; Status Future Hold Acetaminophen (Ofirmev 1000mg/ 100ml Iv) 100 ml @ 400 mls/hr Q6H PRN IVPB FEVER Last administered on 01/20/17 00:55; Admin Dose 400 MLS/HR; Start at 06:30 IV Flush (NS 10 ml) 10 ml PRN PRN IV IV PROTOCOL; Start 01/10/17 at 11:30 Amiodarone HCl (Cordarone) 200 mg BID GTB Last administered on 01/22/17 08:14 ; Admin Dose 200 MG; Start 01/11/17 at 12:00 Diagnostic Test (Pha) (Accu-Chek) 1 ea Q4H XX Last administered on 01/22/17 08 :28; Admin Dose 1 EA; Start 01/11/17 at 17:00 Epoetin Mina (Epogen (Esrd)) 10,000 units [id number]@17 SC Last administered on 18:42; Admin Dose 10,000 UNITS; Start 01/13/17 at 17:00 Insulin Aspart (Adult SC Insulin - Moder... Q4 SC Last administered on 21:08; Admin Dose 2 UNIT; Start 01/13/17 at 09:00 Meropenem/Sodium Chloride (Merrem 500mg/50 ml(Pmx)) 50 ml @ 200 mls/hr Q12H IVPB Last administered on 01/22/17 08:14; Admin Dose 200 MLS/HR; Start at 10:00 Metoprolol Tartrate (Lopressor) 25 mg BID PO Last administered on 01/22/17 08: 13; Admin Dose 25 MG; Start 01/15/17 at 15:00 Al Hydrox/Mg Hydrox/ Simethicone 30 ml 30 ml Q4 GTB Last administered on 08:14; Admin Dose 30 ML; Start 01/15/17 at 17:00 Caspofungin 50 mg/ Sodium Chloride 250 ml @ 250 mls/hr Q24H IVPB Last administered on 01/21/17 14:30; Admin Dose 250 MLS/HR; Start 01/17/17 at 14:30 Dextrose (D5W) 1,000 ml @ 150 mls/hr Q6H40M IV Last administered on 01/22/17 05:09; Admin Dose 150 MLS/HR; Start 01/18/17 at 08:30 Metoclopramide HCl 10 mg 10 mg Q6 IV Last administered on 01/22/17 05:09; Admin Dose 10 MG; Start 01/18/17 at 12:00 Total Parenteral Nutrition 1,000 ml @ 75 mls/hr [id number] IV Last administered on 01/22/17 03:25; Admin Dose 75 MLS/HR; Start 01/18/17 at 19:00 Metronidazole (Flagyl 500 Mg (Pmx)) 100 ml @ 100 mls/hr Q8 IVPB Last administered on 01/22/17 05:09; Admin Dose 100 MLS/HR; Start 01/20/17 at 14:00 Pantoprazole 40 mg 40 mg DAILY@06 PO ; Start 01/22/17 at 06:00 Vancomycin HCl/ Sodium Chloride (Vancocin/NS) 250 ml @ 83.333 mls/ hr Q48H IVPB ; Start 01/24/17 at 06:00 LIBRADO CLARKE MD Jan 22, 2017 13:30
[2017-01-22] MEDS: CASPOFUNGIN 50 MG in SOD CHLORIDE 0.9% 250 ML IVPB SCH (15:18)
--- NOTE | 2017-01-22 16:17 | PN ---
Date/Time of Note Date/Time of Note DATE: 01/22/17 TIME: 16:13 Assessment/Plan VTE Prophylaxis VTE Prophylaxis Intervention: other Lines/Catheters IV C[facility]ter Type (from [facility]): EPIFANIO Urinary Cath still in place: Yes Reason Cath still needed: other (indicate) Assessment/Plan Chief Complaint/Hosp Course Paroxysmal atrial fibrillation, currently sinus rhythm/ sinus tachycardia. Severe sepsis: BP has improved now Acute pancreatitis status post ERCP Respiratory failure, vent dependent; s/p trach now Acute kidney injury now s/p hemodialysis Seizure disorder Psychiatric disorder Acute blood loss anemia GI bleed status post clipping -cont supportive care vent support f/u H/H and transfuse prn cont ICU care NUTRITIONAL support more than 37 min of critical care times was spent in managment and treatment of this critically ill pt, excluding any procedures. Dr Leyva will f/u tomorrow. Problems: Subjective 24 Hr Interval Summary Free Text/Dictation d/w staff and rhythm was reviewed pt has remained in NSR/ Sinus tachy. no more Afib pt is s/p trach and PEG nonverbal. meds reviewed Exam/Review of Systems Vital Signs Vitals Vital Signs Date Time Temp Pulse Resp B/P Pulse Ox O2 Delivery O2 Flow Rate FiO2 01/22/17 12:00 118 01/22/17 12:00 100.2 26 96/62 98 Mechanical Ventilator 01/22/17 11:15 30 Intake and Output 01/21/17 01/21/17 01/22/17 15:00 23:00 07:00 Intake Total 1385 ml 1925 ml 1450 ml Output Total 1275 ml 1850 ml 2090 ml Balance 110 ml 75 ml -640 ml Exam General: s/p trach on vent HEENT: NC/AT. pupils are equal. round. NECK: s/p trach. . no stridor. CV: tachycardic. . systolic murmur; no gallop or rubs. PULM: no wheezing . + rhonchi. GI: SOFT, NT, ND, no rebound or guarding s/p PEG Extremity: + B/L LE edema. no clubbing. neuro: awake and OPENS her eyes Psych: calm and pleasant rectal: deferred Results Result Diagram: 01/22/17 0825 01/22/17 0825 Results 24 hrs Laboratory Tests Test 01/21/17 17:03 01/21/17 21:04 01/22/17 00:34 01/22/17 05:00 Bedside Glucose 120 104 138 White Blood Count 17.8 H Red Blood Count 2.35 L Hemoglobin 7.0 L Hematocrit 22.8 L Mean Corpuscular Volume 97.0 Mean Corpuscular Hemoglobin 29.8 Mean Corpuscular Hemoglobin Concent 30.7 L Red Cell Distribution Width 16.1 H Platelet Count 450 H Mean Platelet Volume 11.1 H Neutrophils % 81.5 H Lymphocytes % 7.1 L Monocytes % 6.5 Eosinophils % 0.3 Basophils % 0.2 Nucleated Red Blood Cells % 0.0 Neutrophils # 14.5 H Lymphocytes # 1.3 Monocytes # 1.2 H Eosinophils # 0.1 Basophils # 0.0 Nucleated Red Blood Cells # 0.0 Sodium Level 131 L Potassium Level 6.8 #*H Chloride Level 99 Carbon Dioxide Level 17 L Anion Gap 22 H Blood Urea Nitrogen 54 H Creatinine 2.59 H Glucose Level 779 #*H Calcium Level 8.0 L Phosphorus Level 3.4 Magnesium Level 2.6 H Total Bilirubin 0.1 L Direct Bilirubin 0.00 Indirect Bilirubin 0.1 Aspartate Amino Transf (AST/SGOT) 29 Alanine Aminotransferase (ALT/SGPT) 22 Alkaline Phosphatase 185 H Total Protein 5.8 L Albumin 2.2 L Globulin 3.60 H Albumin/Globulin Ratio 0.61 Vancomycin Level Trough 7.2 L Test 01/22/17 05:08 01/22/17 08:25 01/22/17 08:31 Bedside Glucose 128 132 White Blood Count 18.1 H Red Blood Count 2.41 L Hemoglobin 7.3 L Hematocrit 22.7 L Mean Corpuscular Volume 94.2 Mean Corpuscular Hemoglobin 30.3 Mean Corpuscular Hemoglobin Concent 32.2 Red Cell Distribution Width 15.7 H Platelet Count 470 H Mean Platelet Volume 10.6 H Neutrophils % 86.0 H Lymphocytes % 6.0 L Monocytes % 4.0 Eosinophils % 0.0 Basophils % 2.0 Nucleated Red Blood Cells % 0.0 Neutrophils # 15.6 H Band Neutrophils # 15.6 H Lymphocytes # 1.1 Monocytes # 0.7 Eosinophils # 0.0 Basophils # 0.4 H Nucleated Red Blood Cells # 0.0 Sodium Level 140 Potassium Level 4.2 # Chloride Level 106 Carbon Dioxide Level 19 L Anion Gap 19 H Blood Urea Nitrogen 59 H Creatinine 2.51 H Glucose Level 137 # Calcium Level 7.5 L Total Bilirubin 0.1 L Direct Bilirubin 0.00 Indirect Bilirubin 0.1 Aspartate Amino Transf (AST/SGOT) 30 Alanine Aminotransferase (ALT/SGPT) 27 Alkaline Phosphatase 258 H Total Protein 6.8 # Albumin 2.5 L Globulin 4.30 H Albumin/Globulin Ratio 0.58 Medications Medications Current Medications Ondansetron HCl (Zofran Inj) 4 mg Q6H PRN IV NAUSEA AND/OR VOMITING; Start 01/04 at 19:30 Acetaminophen/ Hydrocodone Bitart ([place] (5/325)) 1 tab Q6H PRN PO MODERATE PAIN LEVEL 4-6; Start 01/04/17 at 19:30 Morphine Sulfate (morphine) 2 mg Q4H PRN IV SEVERE PAIN LEVEL 7-10 Last administered on 01/22/17 05:10; Admin Dose 2 MG; Start 01/04/17 at 19:30 Docusate Sodium (Colace) 100 mg Q12H PRN PO CONSTIPATION; Start 01/04/17 at 19: 30 Magnesium Hydroxide (Milk Of Mag) 30 ml DAILY PRN PO CONSTIPATION; Start at 19:30 Sodium Biphosphate/ Sodium Phosphate (Fleet Enema) 133 ml DAILY PRN [place] CONSTIPATION; Start 01/04/17 at 19:30 Lorazepam (Ativan) 0.5 mg Q6H PRN IV ANXIETY Last administered on 01/20/17 05: 25; Admin Dose 0.5 MG; Start 01/04/17 at 19:30 Hydralazine HCl (Apresoline) 10 mg Q6H PRN IV ELEVATED BLOOD PRESSURE; Start at 19:30 Nitroglycerin (Nitroglycerin (Sl Tab) 0.4 Mg) 1 tab Q5M PRN SL ANGINA; Start at 19:30 Phenobarbital (Luminal) 64.8 mg BID PO Last administered on 01/04/17 23:45; Admin Dose 64.8 MG; Start 01/04/17 at 21:00; Status Future Hold Topiramate (Topamax) 200 mg BID PO ; Start 01/05/17 at 21:00; Status Future Hold Miscellaneous Information 1 ea NOTE XX ; Start 01/04/17 at 19:30 Glucose (Glutose) 15 gm Q15M PRN PO DECREASED GLUCOSE; Start 01/04/17 at 19:30 Glucose (Glutose) 22.5 gm Q15M PRN PO DECREASED GLUCOSE; Start 01/04/17 at 19:30 Dextrose (D50w Syringe) 25 ml Q15M PRN IV DECREASED GLUCOSE Last administered on 01/08/17 05:36; Admin Dose 25 ML; Start 01/04/17 at 19:30 Dextrose (D50w Syringe) 50 ml Q15M PRN IV DECREASED GLUCOSE; Start 01/04/17 at 19:30 Glucagon (Glucagen) 1 mg Q15M PRN IM DECREASED GLUCOSE; Start 01/04/17 at 19:30 Glucose (Glutose) 15 gm Q15M PRN BUCCAL DECREASED GLUCOSE; Start 01/04/17 at 19: 30 Phenytoin (Dilantin Susp Cup) 100 mg TID PO Last administered on 01/04/17 23:44 ; Admin Dose 100 MG; Start 01/04/17 at 21:50; Status Future Hold Clonazepam 0.5 mg 0.5 mg Q8H PO Last administered on 01/04/17 23:45; Admin Dose 0.5 MG; Start 01/04/17 at 23:00; Status Future Hold Norepinephrine 16 mg/Dextrose 500 ml @ 1.87 mls/hr TITRATE IV Last administered on 01/07/17 00:23; Admin Dose 15 MLS/HR; Start 01/05/17 at 00:30 Fentanyl 100 ml @ 2.5 mls/hr TITRATE IV Last administered on 01/21/17 10:05; Admin Dose 10 MLS/HR; Start 01/05/17 at 08:39 Midazolam HCl 50 ml @ 1 mls/hr TITRATE IV Last administered on 01/21/17 10:05 ; Admin Dose 5 MLS/HR; Start 01/05/17 at 08:41 Levetiracetam 100 ml @ 400 mls/hr Q12 IVPB Last administered on 01/22/17 08: 14; Admin Dose 400 MLS/HR; Start 01/05/17 at 11:30 Vasopressin 60 unit/Dextrose 60 ml @ 1.2 mls/hr Q12H IV Last administered on 22:32; Admin Dose 2.4 MLS/HR; Start 01/05/17 at 17:30 Epinephrine 4 mg/ Sodium Chloride 250 ml @ 0 mls/hr TITRATE IV ; Start 01/05/17 at 18:30 Phenylephrine HCl/ Dextrose (Robert-Syneph/D5W) 500 ml @ 18.75 mls/ hr TITRATE IV Last administered on 01/20/17 02:34; Admin Dose 1.87 MLS/HR; Start 01/05/17 at 20:30 Acetaminophen (Tylenol Liquid) 650 mg Q4H PRN NGT PAIN AND OR ELEVATED TEMP Last administered on 01/19/17 17:32; Admin Dose 650 MG; Start 01/06/17 at 04:30 Insulin Glargine 10 unit 10 unit DAILY SC Last administered on 01/07/17 08:19; Admin Dose 10 UNIT; Start 01/06/17 at 14:00; Status Future Hold Acetaminophen (Ofirmev 1000mg/ 100ml Iv) 100 ml @ 400 mls/hr Q6H PRN IVPB FEVER Last administered on 01/20/17 00:55; Admin Dose 400 MLS/HR; Start at 06:30 IV Flush (NS 10 ml) 10 ml PRN PRN IV IV PROTOCOL; Start 01/10/17 at 11:30 Amiodarone HCl (Cordarone) 200 mg BID GTB Last administered on 01/22/17 08:14 ; Admin Dose 200 MG; Start 01/11/17 at 12:00 Diagnostic Test (Pha) (Accu-Chek) 1 ea Q4H XX Last administered on 01/22/17 13 :00; Admin Dose 1 EA; Start 01/11/17 at 17:00 Epoetin Mina (Epogen (Esrd)) 10,000 units MoWeFr@17 SC Last administered on 18:42; Admin Dose 10,000 UNITS; Start 01/13/17 at 17:00 Insulin Aspart (Adult SC Insulin - Moder... Q4 SC Last administered on 21:08; Admin Dose 2 UNIT; Start 01/13/17 at 09:00 Meropenem/Sodium Chloride (Merrem 500mg/50 ml(Pmx)) 50 ml @ 200 mls/hr Q12H IVPB Last administered on 01/22/17 08:14; Admin Dose 200 MLS/HR; Start at 10:00 Metoprolol Tartrate (Lopressor) 25 mg BID PO Last administered on 01/22/17 08: 13; Admin Dose 25 MG; Start 01/15/17 at 15:00 Al Hydrox/Mg Hydrox/ Simethicone 30 ml 30 ml Q4 GTB Last administered on 13:00; Admin Dose 30 ML; Start 01/15/17 at 17:00 Caspofungin 50 mg/ Sodium Chloride 250 ml @ 250 mls/hr Q24H IVPB Last administered on 01/22/17 15:18; Admin Dose 250 MLS/HR; Start 01/17/17 at 14:30 Dextrose (D5W) 1,000 ml @ 50 mls/hr Q20H IV Last administered on 01/22/17 12: 30; Admin Dose 50 MLS/HR; Start 01/18/17 at 08:30 Metoclopramide HCl 10 mg 10 mg Q6 IV Last administered on 01/22/17 12:00; Admin Dose 10 MG; Start 01/18/17 at 12:00 Metronidazole (Flagyl 500 Mg (Pmx)) 100 ml @ 100 mls/hr Q8 IVPB Last administered on 01/22/17 15:17; Admin Dose 100 MLS/HR; Start 01/20/17 at 14:00 Pantoprazole 40 mg 40 mg DAILY@06 PO ; Start 01/22/17 at 06:00 Vancomycin HCl/ Sodium Chloride (Vancocin/NS) 250 ml @ 83.333 mls/ hr Q48H IVPB ; Start 01/24/17 at 06:00 NIALL HACKETT MD Jan 22, 2017 16:17
--- NOTE | 2017-01-22 17:32 | PN ---
Date/Time of Note Date/Time of Note DATE: 01/22/17 TIME: 17:26 Assessment/Plan VTE Prophylaxis VTE Prophylaxis Intervention: SCD's Lines/Catheters IV Catheter Type (from Nrs): EPIFANIO Assessment/Plan Chief Complaint/Hosp Course 1. Severe systemic shock with multiorgan failure secondary to severe pancreatitis superimposed by sepsis secondary to staph bacteremia, bilateral pneumonia, E. coli UTI -Improved 2. Severe gallstone pancreatitis * Status post ERCP with sphincterectomy and removal of common bile duct stones, placement of common bile duct stent done January 13, 2017 3. Probable GI bleed as well as abdominal distention 4. Acute respiratory failure secondary to #1 patient remains ventilator dependent 5. Acute kidney injury secondary to #1 now requiring hemodialysis 6. Persistent tachycardia likely secondary to #1 on amiodarone 7. Bilateral pneumonia with bilateral effusions R> L which is likely reactive from #2 * persistent despite right-sided thoracentesis January 13, 2017 8. Normocytic normochromic anemia: Worsening 9. History of seizure disorder on Keppra 10. Chronic debility on TPN 11. Persistent tachycardia: Plan: Continue ICU monitoring and vent support and sedation as indicated Continue antibiotics per ID Status post tracheostomy placement, PEG was placed today, patient is also status post EGD today for GI bleeding, patient was noted to have bleeding at the ampulla site and is status post epinephrine injection and cauterization, continue Protonix and continue to hold anticoagulation Appreciate cardiology input and management of tachycardia, patient is on amiodarone Continue Keppra for seizures Continue dialysis per renal Tachycardia is consistent with severe pancreatitis, Appreciate all consultants Further interventions per clinical course Prophylaxis: SCDs/Protonix Problems: Subjective 24 Hr Interval Summary Subjective hx not possible: pt non-verbal Exam/Review of Systems Vital Signs Vitals Vital Signs Date Time Temp Pulse Resp B/P Pulse Ox O2 Delivery O2 Flow Rate FiO2 01/22/17 17:00 26 102/68 99 Mechanical Ventilator 01/22/17 16:00 99.8 01/22/17 16:00 109 01/22/17 11:15 30 Intake and Output 01/21/17 01/21/17 01/22/17 15:00 23:00 07:00 Intake Total 1385 ml 1925 ml 1450 ml Output Total 1275 ml 1850 ml 2090 ml Balance 110 ml 75 ml -640 ml Exam Constitutional: non-verbal ENMT: other (Tracheostomy noted) Respiratory: clear to auscultation Cardiovascular: regular rate and rhythm Gastrointestinal: soft, No distended Musculoskeletal: nl extremities to inspection Results Result Diagram: 01/22/1782401/22/1725 Results 24 hrs Laboratory Tests Test 01/21/17 21:04 01/22/17 00:34 01/22/17 05:00 01/22/17 05:08 Bedside Glucose 104 138 128 White Blood Count 17.8 H Red Blood Count 2.35 L Hemoglobin 7.0 L Hematocrit 22.8 L Mean Corpuscular Volume 97.0 Mean Corpuscular Hemoglobin 29.8 Mean Corpuscular Hemoglobin Concent 30.7 L Red Cell Distribution Width 16.1 H Platelet Count 450 H Mean Platelet Volume 11.1 H Neutrophils % 81.5 H Lymphocytes % 7.1 L Monocytes % 6.5 Eosinophils % 0.3 Basophils % 0.2 Nucleated Red Blood Cells % 0.0 Neutrophils # 14.5 H Lymphocytes # 1.3 Monocytes # 1.2 H Eosinophils # 0.1 Basophils # 0.0 Nucleated Red Blood Cells # 0.0 Sodium Level 131 L Potassium Level 6.8 #*H Chloride Level 99 Carbon Dioxide Level 17 L Anion Gap 22 H Blood Urea Nitrogen 54 H Creatinine 2.59 H Glucose Level 779 #*H Calcium Level 8.0 L Phosphorus Level 3.4 Magnesium Level 2.6 H Total Bilirubin 0.1 L Direct Bilirubin 0.00 Indirect Bilirubin 0.1 Aspartate Amino Transf (AST/SGOT) 29 Alanine Aminotransferase (ALT/SGPT) 22 Alkaline Phosphatase 185 H Total Protein 5.8 L Albumin 2.2 L Globulin 3.60 H Albumin/Globulin Ratio 0.61 Vancomycin Level Trough 7.2 L Test 01/22/17 08:25 01/22/17 08:31 White Blood Count 18.1 H Red Blood Count 2.41 L Hemoglobin 7.3 L Hematocrit 22.7 L Mean Corpuscular Volume 94.2 Mean Corpuscular Hemoglobin 30.3 Mean Corpuscular Hemoglobin Concent 32.2 Red Cell Distribution Width 15.7 H Platelet Count 470 H Mean Platelet Volume 10.6 H Neutrophils % 86.0 H Lymphocytes % 6.0 L Monocytes % 4.0 Eosinophils % 0.0 Basophils % 2.0 Nucleated Red Blood Cells % 0.0 Neutrophils # 15.6 H Band Neutrophils # 15.6 H Lymphocytes # 1.1 Monocytes # 0.7 Eosinophils # 0.0 Basophils # 0.4 H Nucleated Red Blood Cells # 0.0 Sodium Level 140 Potassium Level 4.2 # Chloride Level 106 Carbon Dioxide Level 19 L Anion Gap 19 H Blood Urea Nitrogen 59 H Creatinine 2.51 H Glucose Level 137 # Calcium Level 7.5 L Total Bilirubin 0.1 L Direct Bilirubin 0.00 Indirect Bilirubin 0.1 Aspartate Amino Transf (AST/SGOT) 30 Alanine Aminotransferase (ALT/SGPT) 27 Alkaline Phosphatase 258 H Total Protein 6.8 # Albumin 2.5 L Globulin 4.30 H Albumin/Globulin Ratio 0.58 Bedside Glucose 132 Medications Medications Current Medications Ondansetron HCl (Zofran Inj) 4 mg Q6H PRN IV NAUSEA AND/OR VOMITING; Start 01/04 at 19:30 Acetaminophen/ Hydrocodone Bitart ([place] (5/325)) 1 tab Q6H PRN PO MODERATE PAIN LEVEL 4-6; Start 01/04/17 at 19:30 Morphine Sulfate (morphine) 2 mg Q4H PRN IV SEVERE PAIN LEVEL 7-10 Last administered on 01/22/17 05:10; Admin Dose 2 MG; Start 01/04/17 at 19:30 Docusate Sodium (Colace) 100 mg Q12H PRN PO CONSTIPATION; Start 01/04/17 at 19: 30 Magnesium Hydroxide (Milk Of Mag) 30 ml DAILY PRN PO CONSTIPATION; Start at 19:30 Sodium Biphosphate/ Sodium Phosphate (Fleet Enema) 133 ml DAILY PRN [place] CONSTIPATION; Start 01/04/17 at 19:30 Lorazepam (Ativan) 0.5 mg Q6H PRN IV ANXIETY Last administered on 01/20/17 05: 25; Admin Dose 0.5 MG; Start 01/04/17 at 19:30 Hydralazine HCl (Apresoline) 10 mg Q6H PRN IV ELEVATED BLOOD PRESSURE; Start at 19:30 Nitroglycerin (Nitroglycerin (Sl Tab) 0.4 Mg) 1 tab Q5M PRN SL ANGINA; Start at 19:30 Phenobarbital (Luminal) 64.8 mg BID PO Last administered on 01/04/17 23:45; Admin Dose 64.8 MG; Start 01/04/17 at 21:00; Status Future Hold Topiramate (Topamax) 200 mg BID PO ; Start 01/05/17 at 21:00; Status Future Hold Miscellaneous Information 1 ea NOTE XX ; Start 01/04/17 at 19:30 Glucose (Glutose) 15 gm Q15M PRN PO DECREASED GLUCOSE; Start 01/04/17 at 19:30 Glucose (Glutose) 22.5 gm Q15M PRN PO DECREASED GLUCOSE; Start 01/04/17 at 19:30 Dextrose (D50w Syringe) 25 ml Q15M PRN IV DECREASED GLUCOSE Last administered on 01/08/17 05:36; Admin Dose 25 ML; Start 01/04/17 at 19:30 Dextrose (D50w Syringe) 50 ml Q15M PRN IV DECREASED GLUCOSE; Start 01/04/17 at 19:30 Glucagon (Glucagen) 1 mg Q15M PRN IM DECREASED GLUCOSE; Start 01/04/17 at 19:30 Glucose (Glutose) 15 gm Q15M PRN BUCCAL DECREASED GLUCOSE; Start 01/04/17 at 19: 30 Phenytoin (Dilantin Susp Cup) 100 mg TID PO Last administered on 01/04/17 23:44 ; Admin Dose 100 MG; Start 01/04/17 at 21:50; Status Future Hold Clonazepam 0.5 mg 0.5 mg Q8H PO Last administered on 01/04/17 23:45; Admin Dose 0.5 MG; Start 01/04/17 at 23:00; Status Future Hold Norepinephrine 16 mg/Dextrose 500 ml @ 1.87 mls/hr TITRATE IV Last administered on 01/07/17 00:23; Admin Dose 15 MLS/HR; Start 01/05/17 at 00:30 Fentanyl 100 ml @ 2.5 mls/hr TITRATE IV Last administered on 01/21/17 10:05; Admin Dose 10 MLS/HR; Start 01/05/17 at 08:39 Midazolam HCl 50 ml @ 1 mls/hr TITRATE IV Last administered on 01/21/17 10:05 ; Admin Dose 5 MLS/HR; Start 01/05/17 at 08:41 Levetiracetam 100 ml @ 400 mls/hr Q12 IVPB Last administered on 01/22/17 08: 14; Admin Dose 400 MLS/HR; Start 01/05/17 at 11:30 Vasopressin 60 unit/Dextrose 60 ml @ 1.2 mls/hr Q12H IV Last administered on 22:32; Admin Dose 2.4 MLS/HR; Start 01/05/17 at 17:30 Epinephrine 4 mg/ Sodium Chloride 250 ml @ 0 mls/hr TITRATE IV ; Start 01/05/17 at 18:30 Phenylephrine HCl/ Dextrose (Robert-Syneph/D5W) 500 ml @ 18.75 mls/ hr TITRATE IV Last administered on 01/20/17 02:34; Admin Dose 1.87 MLS/HR; Start 01/05/17 at 20:30 Acetaminophen (Tylenol Liquid) 650 mg Q4H PRN NGT PAIN AND OR ELEVATED TEMP Last administered on 01/19/17 17:32; Admin Dose 650 MG; Start 01/06/17 at 04:30 Insulin Glargine 10 unit 10 unit DAILY SC Last administered on 01/07/17 08:19; Admin Dose 10 UNIT; Start 01/06/17 at 14:00; Status Future Hold Acetaminophen (Ofirmev 1000mg/ 100ml Iv) 100 ml @ 400 mls/hr Q6H PRN IVPB FEVER Last administered on 01/20/17 00:55; Admin Dose 400 MLS/HR; Start at 06:30 IV Flush (NS 10 ml) 10 ml PRN PRN IV IV PROTOCOL; Start 01/10/17 at 11:30 Amiodarone HCl (Cordarone) 200 mg BID GTB Last administered on 01/22/17 08:14 ; Admin Dose 200 MG; Start 01/11/17 at 12:00 Diagnostic Test (Pha) (Accu-Chek) 1 ea Q4H XX Last administered on 01/22/17 13 :00; Admin Dose 1 EA; Start 01/11/17 at 17:00 Epoetin Mina (Epogen (Esrd)) 10,000 units MoWeFr@17 SC Last administered on 18:42; Admin Dose 10,000 UNITS; Start 01/13/17 at 17:00 Insulin Aspart (Adult SC Insulin - Moder... Q4 SC Last administered on 21:08; Admin Dose 2 UNIT; Start 01/13/17 at 09:00 Meropenem/Sodium Chloride (Merrem 500mg/50 ml(Pmx)) 50 ml @ 200 mls/hr Q12H IVPB Last administered on 01/22/17 08:14; Admin Dose 200 MLS/HR; Start at 10:00 Metoprolol Tartrate (Lopressor) 25 mg BID PO Last administered on 01/22/17 08: 13; Admin Dose 25 MG; Start 01/15/17 at 15:00 Al Hydrox/Mg Hydrox/ Simethicone 30 ml 30 ml Q4 GTB Last administered on 13:00; Admin Dose 30 ML; Start 01/15/17 at 17:00 Caspofungin 50 mg/ Sodium Chloride 250 ml @ 250 mls/hr Q24H IVPB Last administered on 01/22/17 15:18; Admin Dose 250 MLS/HR; Start 01/17/17 at 14:30 Dextrose (D5W) 1,000 ml @ 50 mls/hr Q20H IV Last administered on 01/22/17 12: 30; Admin Dose 50 MLS/HR; Start 01/18/17 at 08:30 Metoclopramide HCl 10 mg 10 mg Q6 IV Last administered on 01/22/17 12:00; Admin Dose 10 MG; Start 01/18/17 at 12:00 Metronidazole (Flagyl 500 Mg (Pmx)) 100 ml @ 100 mls/hr Q8 IVPB Last administered on 01/22/17 15:17; Admin Dose 100 MLS/HR; Start 01/20/17 at 14:00 Pantoprazole 40 mg 40 mg DAILY@06 PO ; Start 01/22/17 at 06:00 Vancomycin HCl/ Sodium Chloride (Vancocin/NS) 250 ml @ 83.333 mls/ hr Q48H IVPB ; Start 01/24/17 at 06:00 YING CASTAÑEDA Jan 22, 2017 17:31
--- NOTE | 2017-01-22 18:12 | PN ---
Date/Time of Note Date/Time of Note DATE: 01/22/17 TIME: 18:11 Assessment/Plan Lines/Catheters IV Catheter Type (from Nrsg): EPIFANIO Assessment/Plan Chief Complaint/Hosp Course This is a 61-year-old female who was admitted because of pneumonia was found for progressively worsening renal failure. SP tracheostomy Trach site clean We will continue vent support Trach care Pulmonary toilet Problems: Subjective 24 Hr Interval Summary Constitutional: improved Pain Control: mild Exam/Review of Systems Vital Signs Vitals Vital Signs Date Time Temp Pulse Resp B/P Pulse Ox O2 Delivery O2 Flow Rate FiO2 01/22/17 17:15 108 26 99 30 01/22/17 17:00 102/68 Mechanical Ventilator 01/22/17 16:00 99.8 Intake and Output 01/21/17 01/21/17 01/22/17 15:00 23:00 07:00 Intake Total 1385 ml 1925 ml 1450 ml Output Total 1275 ml 1850 ml 2090 ml Balance 110 ml 75 ml -640 ml Exam Neck: non-tender, supple Respiratory: clear to auscultation, normal air movement Cardiovascular: nl pulses, regular rate and rhythm Gastrointestinal: nl liver, spleen, non-tender, soft Results Result Diagram: 01/22/17 0825 01/22/17 0825 SAM GUTIERREZ MD Jan 22, 2017 18:11
[2017-01-23] VITALS (35 sets, daily range): BP systolic 91–131; BP diastolic 53–82; PULSE 94–119; RESP 23–31
[2017-01-23] MEDS: ACETAMINOPHEN 650MG/20.3ML CUP NGT PRN ×3 (00:21→19:56)
[2017-01-23] MEDS: AL HYDROX/MG HYDROX/SIMETH 30 ML CUP GTB SCH ×6 (00:21→20:23)
[2017-01-23] MEDS: METOCLOPRAMIDE 10 MG INJ IV SCH ×4 (00:21→17:33)
[2017-01-23] MEDS: DEXTROSE 5% 1,000 ML IV SCH ×2 (02:00→03:18)
[2017-01-23 05:35] LABS: BASOPHIL # 0.1 10^3/ul (0.0-0.1); BASOPHILS % 0.4 % (0.0-2.0); EOSINOPHILS # 0.1 10^3/ul (0.0-0.5); EOSINOPHILS % 0.7 % (0.0-7.0); HEMATOCRIT 22.7 % (37.0-47.0); HEMOGLOBIN 7.2 g/dl (12.0-16.0); LYMPHOCYTES % 6.5 % (15.0-51.0); MEAN CORPUSCULAR HEMOGLOBIN 29.3 pg (29.0-33.0); MEAN CORPUSCULAR HGB CONC 31.7 g/dl (32.0-37.0); MEAN CORPUSCULAR VOLUME 92.3 fl (82.0-101.0); MEAN PLATELET VOLUME 10.7 fl (7.4-10.4); MONOCYTE # 1.2 10^3/ul (0.3-0.9); NEUTROPHIL # 11.9 10^3/ul (1.6-7.5); NEUTROPHILS % 80.7 % (39.0-77.0); PLATELET COUNT 516 10^3/UL (140-415); RED BLOOD COUNT 2.46 10^6/ul (4.20-5.40); RED CELL DISTRIBUTION WIDTH 15.9 % (11.5-14.5); WHITE BLOOD COUNT 14.8 10^3/ul (4.8-10.8)
--- NOTE | 2017-01-23 05:42 | CONS ---
DATE OF ADMISSION: 01/04/2017 DATE OF CONSULTATION: CHIEF COMPLAINT: The patient is in the intensive care unit because of hypotension and probably septic shock secondary to severe pancreatitis. PHYSICAL EXAMINATION: GENERAL: The patient is still intubated, unresponsive. VITAL SIGNS: Blood pressure is systolic. Pulse is around 90. Patient was under vasopressors for several days, but she is now off of the vasopressors. ABDOMEN: Minimal fullness. LABORATORY: The laboratory workup, WBC 16,600; hemoglobin is 10.3; platelet count is 165,000. INR is 1.05. The potassium is 4.0. The amylase and lipase are not in the chart. I will relate this from 01/09, is 622. Potassium is 3.8. The AST 124, ALT of 130, alk phos 154. CT scan of the abdomen shows biliary dilatation. CLINICAL IMPRESSION: Patient seems to have evidence of biliary obstruction. She probably could have ampullary stone which is causing impaction resulting in abnormal liver function and pancreatitis. Discussed with the primary doctor, Dr. Colby Pereira and Dr. Vlad Leyva has cleared from the cardiology standpoint to proceed with endoscopic retrograde cholangiopancreatography. I have discussed this with the family, and they agreed that we may end up proceeding with endoscopic retrograde cholangiopancreatography. Dictated By: Chaitanya Green MD /[email or web address] /Document#: [id number] CC: Colby Pereira MD;*End*
[2017-01-23 06:04] LABS: PHOSPHORUS 4.3 mg/dl (2.5-4.9)
[2017-01-23] MEDS: metroNIDAZOLE 500 MG/NS (PMX) 100 ML IVPB SCH ×3 (06:14→22:00)
[2017-01-23] MEDS: PANTOPRAZOLE (EC) 40 MG TAB PO SCH (06:14)
[2017-01-23 06:15] LABS: ALBUMIN 2.5 g/dl (3.3-4.9); ALBUMIN/GLOBULIN RATIO 0.55; BILIRUBIN,INDIRECT 0.1 mg/dl (0-1.1); BILIRUBIN,TOTAL 0.1 mg/dl (0.2-1.3); CALCIUM 7.6 mg/dl (8.4-10.2); CREATININE 2.37 mg/dl (0.44-1.00); POTASSIUM 3.9 mmol/L (3.5-5.1)
--- NOTE | 2017-01-23 07:54 | CONS ---
Date/Time of Note Date/Time of Note DATE: 01/23/17 TIME: 07:51 Assessment/Plan Assessment/Plan Chief Complaint/Hosp Course Admitted with abdominal pain and evidence of severe pancreatitis in otherwise good health. Problems: Additional Assessment/Plan 1. Acute renal failure, resolving 2. Anemia, stable, transfuse ? 3. Edema sec to low albumin 4. Abdomen is distended, repeat CT, ??psudeocyst Consultation Date/Type/Reason Admit Date/Time Jan 04, 2017 at 19:10 Initial Consult Date 01/05/17 Type of Consultation: Renal Referring Provider: YING CASTAÑEDA Detailed Summary Respiratory: No shortness of breath Cardiovascular: No chest pain Gastrointestinal: pain Genitourinary: other (ortiz in place) Exam/Review of Systems Vital Signs Vitals Vital Signs Date Time Temp Pulse Resp B/P Pulse Ox O2 Delivery O2 Flow Rate FiO2 01/23/17 07:16 120 27 98 30 01/23/17 07:00 131/82 Mechanical Ventilator 01/23/17 06:00 98.6 Intake and Output 01/22/17 01/22/17 01/23/17 15:00 23:00 07:00 Intake Total 260 ml 570 ml Output Total 1450 ml 1200 ml 1950 ml Balance -1450 ml -940 ml -1380 ml Exam Neck: No jvd Respiratory: clear to auscultation Cardiovascular: regular rate and rhythm Gastrointestinal: distended, firm, tender Extremities: edema (2+ sacral edema and 2+ edema) Results Result Diagram: 01/23/17 0445 01/23/17 0445 Results 24 hrs Laboratory Tests Test 01/22/17 08:25 01/22/17 08:31 01/22/17 17:27 01/23/17 04:45 White Blood Count 18.1 H 14.8 H Red Blood Count 2.41 L 2.46 L Hemoglobin 7.3 L 7.2 L Hematocrit 22.7 L 22.7 L Mean Corpuscular Volume 94.2 92.3 Mean Corpuscular Hemoglobin 30.3 29.3 Mean Corpuscular Hemoglobin Concent 32.2 31.7 L Red Cell Distribution Width 15.7 H 15.9 H Platelet Count 470 H 516 H Mean Platelet Volume 10.6 H 10.7 H Neutrophils % 86.0 H 80.7 H Lymphocytes % 6.0 L 6.5 L Monocytes % 4.0 8.0 Eosinophils % 0.0 0.7 Basophils % 2.0 0.4 Nucleated Red Blood Cells % 0.0 0.0 Neutrophils # 15.6 H 11.9 H Band Neutrophils # 15.6 H Lymphocytes # 1.1 1.0 Monocytes # 0.7 1.2 H Eosinophils # 0.0 0.1 Basophils # 0.4 H 0.1 Nucleated Red Blood Cells # 0.0 0.0 Sodium Level 140 142 Potassium Level 4.2 # 3.9 Chloride Level 106 107 Carbon Dioxide Level 19 L 22 Anion Gap 19 H 17 H Blood Urea Nitrogen 59 H 57 H Creatinine 2.51 H 2.37 H Glucose Level 137 # 108 Calcium Level 7.5 L 7.6 L Total Bilirubin 0.1 L 0.1 L Direct Bilirubin 0.00 0.00 Indirect Bilirubin 0.1 0.1 Aspartate Amino Transf (AST/SGOT) 30 32 Alanine Aminotransferase (ALT/SGPT) 27 22 Alkaline Phosphatase 258 H 274 H Total Protein 6.8 # 7.0 Albumin 2.5 L 2.5 L Globulin 4.30 H 4.50 H Albumin/Globulin Ratio 0.58 0.55 Bedside Glucose 132 110 Phosphorus Level 4.3 Magnesium Level 2.0 Medications Medications Current Medications Ondansetron HCl (Zofran Inj) 4 mg Q6H PRN IV NAUSEA AND/OR VOMITING; Start 01/04 at 19:30 Acetaminophen/ Hydrocodone Bitart ([place] (5/325)) 1 tab Q6H PRN PO MODERATE PAIN LEVEL 4-6; Start 01/04/17 at 19:30 Morphine Sulfate (morphine) 2 mg Q4H PRN IV SEVERE PAIN LEVEL 7-10 Last administered on 01/22/17 05:10; Admin Dose 2 MG; Start 01/04/17 at 19:30 Docusate Sodium (Colace) 100 mg Q12H PRN PO CONSTIPATION; Start 01/04/17 at 19: 30 Magnesium Hydroxide (Milk Of Mag) 30 ml DAILY PRN PO CONSTIPATION; Start at 19:30 Sodium Biphosphate/ Sodium Phosphate (Fleet Enema) 133 ml DAILY PRN [place] CONSTIPATION; Start 01/04/17 at 19:30 Lorazepam (Ativan) 0.5 mg Q6H PRN IV ANXIETY Last administered on 01/20/17 05: 25; Admin Dose 0.5 MG; Start 01/04/17 at 19:30 Hydralazine HCl (Apresoline) 10 mg Q6H PRN IV ELEVATED BLOOD PRESSURE; Start at 19:30 Nitroglycerin (Nitroglycerin (Sl Tab) 0.4 Mg) 1 tab Q5M PRN SL ANGINA; Start at 19:30 Phenobarbital (Luminal) 64.8 mg BID PO Last administered on 01/04/17 23:45; Admin Dose 64.8 MG; Start 01/04/17 at 21:00; Status Future Hold Topiramate (Topamax) 200 mg BID PO ; Start 01/05/17 at 21:00; Status Future Hold Miscellaneous Information 1 ea NOTE XX ; Start 01/04/17 at 19:30 Glucose (Glutose) 15 gm Q15M PRN PO DECREASED GLUCOSE; Start 01/04/17 at 19:30 Glucose (Glutose) 22.5 gm Q15M PRN PO DECREASED GLUCOSE; Start 01/04/17 at 19:30 Dextrose (D50w Syringe) 25 ml Q15M PRN IV DECREASED GLUCOSE Last administered on 01/08/17 05:36; Admin Dose 25 ML; Start 01/04/17 at 19:30 Dextrose (D50w Syringe) 50 ml Q15M PRN IV DECREASED GLUCOSE; Start 01/04/17 at 19:30 Glucagon (Glucagen) 1 mg Q15M PRN IM DECREASED GLUCOSE; Start 01/04/17 at 19:30 Glucose (Glutose) 15 gm Q15M PRN BUCCAL DECREASED GLUCOSE; Start 01/04/17 at 19: 30 Phenytoin (Dilantin Susp Cup) 100 mg TID PO Last administered on 01/04/17 23:44 ; Admin Dose 100 MG; Start 01/04/17 at 21:50; Status Future Hold Clonazepam 0.5 mg 0.5 mg Q8H PO Last administered on 01/04/17 23:45; Admin Dose 0.5 MG; Start 01/04/17 at 23:00; Status Future Hold Levetiracetam 100 ml @ 400 mls/hr Q12 IVPB Last administered on 01/22/17 20: 29; Admin Dose 400 MLS/HR; Start 01/05/17 at 11:30 Phenylephrine HCl/ Dextrose (Robert-Syneph/D5W) 500 ml @ 18.75 mls/ hr TITRATE IV Last administered on 01/20/17 02:34; Admin Dose 1.87 MLS/HR; Start 01/05/17 at 20:30 Acetaminophen 650 mg 650 mg Q4H PRN NGT PAIN AND OR ELEVATED TEMP Last administered on 01/23/17 00:21; Admin Dose 650 MG; Start 01/06/17 at 04:30 Acetaminophen (Ofirmev 1000mg/ 100ml Iv) 100 ml @ 400 mls/hr Q6H PRN IVPB FEVER Last administered on 01/20/17 00:55; Admin Dose 400 MLS/HR; Start at 06:30 IV Flush (NS 10 ml) 10 ml PRN PRN IV IV PROTOCOL; Start 01/10/17 at 11:30 Amiodarone HCl (Cordarone) 200 mg BID GTB Last administered on 01/22/17 20:34 ; Admin Dose 200 MG; Start 01/11/17 at 12:00 Epoetin Mina 63984 units 10,000 units MoWeFr@17 SC Last administered on 18:42; Admin Dose 10,000 UNITS; Start 01/13/17 at 17:00 Meropenem/Sodium Chloride (Merrem 500mg/50 ml(Pmx)) 50 ml @ 200 mls/hr Q12H IVPB Last administered on 01/22/17 21:24; Admin Dose 200 MLS/HR; Start at 10:00 Metoprolol Tartrate (Lopressor) 25 mg BID PO Last administered on 01/22/17 20: 29; Admin Dose 25 MG; Start 01/15/17 at 15:00 Al Hydrox/Mg Hydrox/ Simethicone 30 ml 30 ml Q4 GTB Last administered on 06:13; Admin Dose 30 ML; Start 01/15/17 at 17:00 Caspofungin 50 mg/ Sodium Chloride 250 ml @ 250 mls/hr Q24H IVPB Last administered on 01/22/17 15:18; Admin Dose 250 MLS/HR; Start 01/17/17 at 14:30 Dextrose (D5W) 1,000 ml @ 50 mls/hr Q20H IV Last administered on 01/22/17 12: 30; Admin Dose 50 MLS/HR; Start 01/18/17 at 08:30 Metoclopramide HCl 10 mg 10 mg Q6 IV Last administered on 01/23/17 06:13; Admin Dose 10 MG; Start 01/18/17 at 12:00 Metronidazole (Flagyl 500 Mg (Pmx)) 100 ml @ 100 mls/hr Q8 IVPB Last administered on 01/23/17 06:14; Admin Dose 100 MLS/HR; Start 01/20/17 at 14:00 Pantoprazole 40 mg 40 mg DAILY@06 PO Last administered on 01/23/17 06:14; Admin Dose 40 MG; Start 01/22/17 at 06:00 Vancomycin HCl/ Sodium Chloride (Vancocin/NS) 250 ml @ 83.333 mls/ hr Q48H IVPB ; Start 01/24/17 at 06:00 FRANCIS JULES MD Jan 23, 2017 07:54
[2017-01-23] MEDS: AMIODARONE 200 MG TAB GTB SCH ×2 (09:50→20:23)
[2017-01-23] MEDS: LEVETIRACETAM 1000 MG (PMX) 100 ML IVPB SCH ×2 (09:50→20:23)
[2017-01-23] MEDS: MEROPENEM 500MG/50 ML (PMX) 50 ML IVPB SCH ×2 (09:50→22:00)
[2017-01-23] MEDS: METOPROLOL 25 MG TAB PO SCH ×2 (09:51→20:23)
[2017-01-23] MEDS: BALSAM PERU/CASTOR OIL 60 GM TUBE TOP SCH (09:51)
--- NOTE | 2017-01-23 10:00 | PN ---
Date/Time of Note Date/Time of Note DATE: 01/23/17 TIME: 09:37 Assessment/Plan VTE Prophylaxis VTE Prophylaxis Intervention: LMWH Lines/Catheters IV Catheter Type (from Nrs): PICC Line Central line still needed: Yes Urinary Cath still in place: Yes Reason Cath still needed: other (indicate) Assessment/Plan Chief Complaint/Hosp Course 61 yo female with septic shock 2/2 gall stone pancreatitis. s/p ERCP w stent. Respiratory failure now s/p trach and PEG and remains on mechanical sedation pending improvement in ventilatory status. Respiratory Failure: - Patient remains on mechanical ventilation via trach. AC /450/30/5. Saturating 99% - Vent weaning as tolerated Septic shock: - she is hemodynamically stable off of pressors. continues on antibiotics: caspofungin, merrem, flagyl, vancomycin per ID consultation LEONOR: - renal functioning is improving off of dialysis -Continue to monitor creatinine and urine output Gall stone pancreatitis: - s/p ERCP and stent - s/p G tube, continue tube feeds Anemia of inflamation: - H/H is stable. Will hold off on transfusion given no acute need and hypervolemia Problems: (1) Septic shock Status: Acute Comment: Continue vancomycin, casopfungin, merrem, flagyl (2) Acute pancreatitis Status: Acute (3) Acute kidney injury Status: Acute Comment: Creatinine downtrending, adequate urine output and electrolytes off of HD. Continue to monitor creatinine and UOP (4) Metabolic acidosis Status: Acute (5) Metabolic encephalopathy Status: Acute Subjective 24 Hr Interval Summary Free Text/Dictation No acute events. Patient remains alert and interactive, appears comfortable on the vent via trach. Unable to communicate 2/2 trach Exam/Review of Systems Vital Signs Vitals Vital Signs Date Time Temp Pulse Resp B/P Pulse Ox O2 Delivery O2 Flow Rate FiO2 01/23/17 08:00 99.8 29 121/79 98 Mechanical Ventilator 01/23/17 08:00 115 01/23/17 07:16 30 Intake and Output 01/22/17 01/22/17 01/23/17 15:00 23:00 07:00 Intake Total 260 ml 570 ml Output Total 1450 ml 1200 ml 1950 ml Balance -1450 ml -940 ml -1380 ml Exam Constitutional: alert, non-verbal Neck: other (Trach in place) Respiratory: clear to auscultation Cardiovascular: other (tachycardic, regular) Gastrointestinal: distended, other (some tenderness to palpation of epigastrium. no rebound. PEG tube in place), soft Genitourinary - Female: other (ortiz) Results Result Diagram: 01/23/175 01/23/175 Results 24 hrs Laboratory Tests Test 01/22/17 17:27 01/23/17 04:45 Bedside Glucose 110 White Blood Count 14.8 H Red Blood Count 2.46 L Hemoglobin 7.2 L Hematocrit 22.7 L Mean Corpuscular Volume 92.3 Mean Corpuscular Hemoglobin 29.3 Mean Corpuscular Hemoglobin Concent 31.7 L Red Cell Distribution Width 15.9 H Platelet Count 516 H Mean Platelet Volume 10.7 H Neutrophils % 80.7 H Lymphocytes % 6.5 L Monocytes % 8.0 Eosinophils % 0.7 Basophils % 0.4 Nucleated Red Blood Cells % 0.0 Neutrophils # 11.9 H Lymphocytes # 1.0 Monocytes # 1.2 H Eosinophils # 0.1 Basophils # 0.1 Nucleated Red Blood Cells # 0.0 Sodium Level 142 Potassium Level 3.9 Chloride Level 107 Carbon Dioxide Level 22 Anion Gap 17 H Blood Urea Nitrogen 57 H Creatinine 2.37 H Glucose Level 108 Calcium Level 7.6 L Phosphorus Level 4.3 Magnesium Level 2.0 Total Bilirubin 0.1 L Direct Bilirubin 0.00 Indirect Bilirubin 0.1 Aspartate Amino Transf (AST/SGOT) 32 Alanine Aminotransferase (ALT/SGPT) 22 Alkaline Phosphatase 274 H Total Protein 7.0 Albumin 2.5 L Globulin 4.50 H Albumin/Globulin Ratio 0.55 Medications Medications Current Medications Ondansetron HCl (Zofran Inj) 4 mg Q6H PRN IV NAUSEA AND/OR VOMITING; Start 01/04 at 19:30 Acetaminophen/ Hydrocodone Bitart ([place] (5/325)) 1 tab Q6H PRN PO MODERATE PAIN LEVEL 4-6; Start 01/04/17 at 19:30 Morphine Sulfate (morphine) 2 mg Q4H PRN IV SEVERE PAIN LEVEL 7-10 Last administered on 01/22/17t 05:10; Admin Dose 2 MG; Start 01/04/17 at 19:30 Docusate Sodium (Colace) 100 mg Q12H PRN PO CONSTIPATION; Start 01/04/17 at 19: 30 Magnesium Hydroxide (Milk Of Mag) 30 ml DAILY PRN PO CONSTIPATION; Start at 19:30 Sodium Biphosphate/ Sodium Phosphate (Fleet Enema) 133 ml DAILY PRN [place] CONSTIPATION; Start 01/04/17 at 19:30 Lorazepam (Ativan) 0.5 mg Q6H PRN IV ANXIETY Last administered on 01/20/17 05: 25; Admin Dose 0.5 MG; Start 01/04/17 at 19:30 Hydralazine HCl (Apresoline) 10 mg Q6H PRN IV ELEVATED BLOOD PRESSURE; Start at 19:30 Nitroglycerin (Nitroglycerin (Sl Tab) 0.4 Mg) 1 tab Q5M PRN SL ANGINA; Start at 19:30 Phenobarbital (Luminal) 64.8 mg BID PO Last administered on 01/04/17 23:45; Admin Dose 64.8 MG; Start 01/04/17 at 21:00; Status Future Hold Topiramate (Topamax) 200 mg BID PO ; Start 01/05/17 at 21:00; Status Future Hold Miscellaneous Information 1 ea NOTE XX ; Start 01/04/17 at 19:30 Glucose (Glutose) 15 gm Q15M PRN PO DECREASED GLUCOSE; Start 01/04/17 at 19:30 Glucose (Glutose) 22.5 gm Q15M PRN PO DECREASED GLUCOSE; Start 01/04/17 at 19:30 Dextrose (D50w Syringe) 25 ml Q15M PRN IV DECREASED GLUCOSE Last administered on 01/08/17 05:36; Admin Dose 25 ML; Start 01/04/17 at 19:30 Dextrose (D50w Syringe) 50 ml Q15M PRN IV DECREASED GLUCOSE; Start 01/04/17 at 19:30 Glucagon (Glucagen) 1 mg Q15M PRN IM DECREASED GLUCOSE; Start 01/04/17 at 19:30 Glucose (Glutose) 15 gm Q15M PRN BUCCAL DECREASED GLUCOSE; Start 01/04/17 at 19: 30 Phenytoin (Dilantin Susp Cup) 100 mg TID PO Last administered on 01/04/17 23:44 ; Admin Dose 100 MG; Start 01/04/17 at 21:50; Status Future Hold Clonazepam 0.5 mg 0.5 mg Q8H PO Last administered on 01/04/17 23:45; Admin Dose 0.5 MG; Start 01/04/17 at 23:00; Status Future Hold Levetiracetam 100 ml @ 400 mls/hr Q12 IVPB Last administered on 01/22/17 20: 29; Admin Dose 400 MLS/HR; Start 01/05/17 at 11:30 Phenylephrine HCl/ Dextrose (Robert-Syneph/D5W) 500 ml @ 18.75 mls/ hr TITRATE IV Last administered on 01/20/17 02:34; Admin Dose 1.87 MLS/HR; Start 01/05/17 at 20:30 Acetaminophen 650 mg 650 mg Q4H PRN NGT PAIN AND OR ELEVATED TEMP Last administered on 01/23/17 00:21; Admin Dose 650 MG; Start 01/06/17 at 04:30 Acetaminophen (Ofirmev 1000mg/ 100ml Iv) 100 ml @ 400 mls/hr Q6H PRN IVPB FEVER Last administered on 01/20/17 00:55; Admin Dose 400 MLS/HR; Start at 06:30 IV Flush (NS 10 ml) 10 ml PRN PRN IV IV PROTOCOL; Start 01/10/17 at 11:30 Amiodarone HCl (Cordarone) 200 mg BID GTB Last administered on 01/22/17 20:34 ; Admin Dose 200 MG; Start 01/11/17 at 12:00 Epoetin Mina 14453 units 10,000 units MoWeFr@17 SC Last administered on 18:42; Admin Dose 10,000 UNITS; Start 01/13/17 at 17:00 Meropenem/Sodium Chloride (Merrem 500mg/50 ml(Pmx)) 50 ml @ 200 mls/hr Q12H IVPB Last administered on 01/22/17 21:24; Admin Dose 200 MLS/HR; Start at 10:00 Metoprolol Tartrate (Lopressor) 25 mg BID PO Last administered on 01/22/17 20: 29; Admin Dose 25 MG; Start 01/15/17 at 15:00 Al Hydrox/Mg Hydrox/ Simethicone 30 ml 30 ml Q4 GTB Last administered on 06:13; Admin Dose 30 ML; Start 01/15/17 at 17:00 Caspofungin 50 mg/ Sodium Chloride 250 ml @ 250 mls/hr Q24H IVPB Last administered on 01/22/17 15:18; Admin Dose 250 MLS/HR; Start 01/17/17 at 14:30 Dextrose (D5W) 1,000 ml @ 50 mls/hr Q20H IV Last administered on 01/22/17 12: 30; Admin Dose 50 MLS/HR; Start 01/18/17 at 08:30 Metoclopramide HCl 10 mg 10 mg Q6 IV Last administered on 01/23/17 06:13; Admin Dose 10 MG; Start 01/18/17 at 12:00 Metronidazole (Flagyl 500 Mg (Pmx)) 100 ml @ 100 mls/hr Q8 IVPB Last administered on 01/23/17 06:14; Admin Dose 100 MLS/HR; Start 01/20/17 at 14:00 Pantoprazole 40 mg 40 mg DAILY@06 PO Last administered on 01/23/17 06:14; Admin Dose 40 MG; Start 01/22/17 at 06:00 Vancomycin HCl/ Sodium Chloride (Vancocin/NS) 250 ml @ 83.333 mls/ hr Q48H IVPB ; Start 01/24/17 at 06:00 CRISTIANE CHRISTINA MD Jan 23, 2017 09:48
--- NOTE | 2017-01-23 11:08 | CONS ---
Date/Time of Note Date/Time of Note DATE: 01/23/17 TIME: 11:06 Assessment/Plan Assessment/Plan Chief Complaint/Hosp Course No acute changes overnight. Patient is alert, looks comfortable, afebrile T-max 100.2 T-current 99.8 pulse 115 respirations 24 blood pressure 121/79 saturation 98 on 30 FiO2 WBC 14.8 H&H 7.2 and 22.7 platelets 560 neutrophils 80.7 BN 57 creatinine 2.37 Indwelling's: Tracheostomy, PEG Matias catheter, right upper extremity PICC line CT of the abdomen and pelvis on January 14 revealed severe pancreatitis with surrounding edema and fluid, worse than seen previously Antibiotics: Vancomycin, meropenem day #18 Cancidas day #9, Flagyl #4 Microbiology: Blood culture on admission grew coag negative staph species urine culture grew E. coli repeat blood and urine culture had been negative Physical examination: Chronically ill-appearing elderly woman who looks comfortable on vent. Head atraumatic normocephalic, sclera nonicteric. Neck is supple, trachea midline. Chest rise symmetrical, breath sounds diminished to bases Heart: S1, S2, tachycardic Abdomen soft bowel tones present. Extremities with trace edema, no cyanosis Assessment: 1. Severe sepsis with ongoing fevers and leukocytosis status post shock ==> femoral Gael discontinued 01/22/17 2. Severe, acute pancreatitis, possibly developing pseudocyst 3. Choledocholithiasis, status post ERCP 01/12/17 with removal of the stone and stent placement 4. Coag negative staph bacteremia, likely contaminant 5. Acute respiratory failure 6. Acute renal failure requiring hemodialysis 7. Fungal urinary tract infection 8. Diarrhea, rule out C. difficile Plan: Clinically and hemodynamically stable, WBC tracing down, status post femoral Gael catheter discontinued yesterday, will keep her on current antibiotics for now Discussed with staff Problems: Consultation Date/Type/Reason Admit Date/Time Jan 04, 2017 at 19:10 Initial Consult Date 01/11/17 Type of Consultation: id Referring Provider: YING CASTAÑEDA Exam/Review of Systems Vital Signs Vitals Vital Signs Date Time Temp Pulse Resp B/P Pulse Ox O2 Delivery O2 Flow Rate FiO2 01/23/17 09:05 114 28 98 30 01/23/17 08:00 99.8 121/79 Mechanical Ventilator Intake and Output 01/22/17 01/22/17 01/23/17 15:00 23:00 07:00 Intake Total 260 ml 570 ml Output Total 1450 ml 1200 ml 1950 ml Balance -1450 ml -940 ml -1380 ml Results Result Diagram: 01/23/17 0445 01/23/17 0445 Results 24 hrs Laboratory Tests Test 01/22/17 17:27 01/23/17 04:45 Bedside Glucose 110 White Blood Count 14.8 H Red Blood Count 2.46 L Hemoglobin 7.2 L Hematocrit 22.7 L Mean Corpuscular Volume 92.3 Mean Corpuscular Hemoglobin 29.3 Mean Corpuscular Hemoglobin Concent 31.7 L Red Cell Distribution Width 15.9 H Platelet Count 516 H Mean Platelet Volume 10.7 H Neutrophils % 80.7 H Lymphocytes % 6.5 L Monocytes % 8.0 Eosinophils % 0.7 Basophils % 0.4 Nucleated Red Blood Cells % 0.0 Neutrophils # 11.9 H Lymphocytes # 1.0 Monocytes # 1.2 H Eosinophils # 0.1 Basophils # 0.1 Nucleated Red Blood Cells # 0.0 Sodium Level 142 Potassium Level 3.9 Chloride Level 107 Carbon Dioxide Level 22 Anion Gap 17 H Blood Urea Nitrogen 57 H Creatinine 2.37 H Glucose Level 108 Calcium Level 7.6 L Phosphorus Level 4.3 Magnesium Level 2.0 Total Bilirubin 0.1 L Direct Bilirubin 0.00 Indirect Bilirubin 0.1 Aspartate Amino Transf (AST/SGOT) 32 Alanine Aminotransferase (ALT/SGPT) 22 Alkaline Phosphatase 274 H Total Protein 7.0 Albumin 2.5 L Globulin 4.50 H Albumin/Globulin Ratio 0.55 Medications Medications Current Medications Ondansetron HCl (Zofran Inj) 4 mg Q6H PRN IV NAUSEA AND/OR VOMITING; Start 01/04 at 19:30 Acetaminophen/ Hydrocodone Bitart ([place] (5/325)) 1 tab Q6H PRN PO MODERATE PAIN LEVEL 4-6; Start 01/04/17 at 19:30 Morphine Sulfate (morphine) 2 mg Q4H PRN IV SEVERE PAIN LEVEL 7-10 Last administered on 01/22/17t 05:10; Admin Dose 2 MG; Start 01/04/17 at 19:30 Docusate Sodium (Colace) 100 mg Q12H PRN PO CONSTIPATION; Start 01/04/17 at 19: 30 Magnesium Hydroxide (Milk Of Mag) 30 ml DAILY PRN PO CONSTIPATION; Start at 19:30 Sodium Biphosphate/ Sodium Phosphate (Fleet Enema) 133 ml DAILY PRN [place] CONSTIPATION; Start 01/04/17 at 19:30 Lorazepam (Ativan) 0.5 mg Q6H PRN IV ANXIETY Last administered on 01/20/17 05: 25; Admin Dose 0.5 MG; Start 01/04/17 at 19:30 Hydralazine HCl (Apresoline) 10 mg Q6H PRN IV ELEVATED BLOOD PRESSURE; Start at 19:30 Nitroglycerin (Nitroglycerin (Sl Tab) 0.4 Mg) 1 tab Q5M PRN SL ANGINA; Start at 19:30 Phenobarbital (Luminal) 64.8 mg BID PO Last administered on 01/04/17 23:45; Admin Dose 64.8 MG; Start 01/04/17 at 21:00; Status Future Hold Topiramate (Topamax) 200 mg BID PO ; Start 01/05/17 at 21:00; Status Future Hold Miscellaneous Information 1 ea NOTE XX ; Start 01/04/17 at 19:30 Glucose (Glutose) 15 gm Q15M PRN PO DECREASED GLUCOSE; Start 01/04/17 at 19:30 Glucose (Glutose) 22.5 gm Q15M PRN PO DECREASED GLUCOSE; Start 01/04/17 at 19:30 Dextrose (D50w Syringe) 25 ml Q15M PRN IV DECREASED GLUCOSE Last administered on 01/08/17 05:36; Admin Dose 25 ML; Start 01/04/17 at 19:30 Dextrose (D50w Syringe) 50 ml Q15M PRN IV DECREASED GLUCOSE; Start 01/04/17 at 19:30 Glucagon (Glucagen) 1 mg Q15M PRN IM DECREASED GLUCOSE; Start 01/04/17 at 19:30 Glucose (Glutose) 15 gm Q15M PRN BUCCAL DECREASED GLUCOSE; Start 01/04/17 at 19: 30 Phenytoin (Dilantin Susp Cup) 100 mg TID PO Last administered on 01/04/17 23:44 ; Admin Dose 100 MG; Start 01/04/17 at 21:50; Status Future Hold Clonazepam 0.5 mg 0.5 mg Q8H PO Last administered on 01/04/17 23:45; Admin Dose 0.5 MG; Start 01/04/17 at 23:00; Status Future Hold Levetiracetam 100 ml @ 400 mls/hr Q12 IVPB Last administered on 01/23/17 09: 50; Admin Dose 400 MLS/HR; Start 01/05/17 at 11:30 Phenylephrine HCl/ Dextrose (Robert-Syneph/D5W) 500 ml @ 18.75 mls/ hr TITRATE IV Last administered on 01/20/17 02:34; Admin Dose 1.87 MLS/HR; Start 01/05/17 at 20:30 Acetaminophen 650 mg 650 mg Q4H PRN NGT PAIN AND OR ELEVATED TEMP Last administered on 01/23/17 00:21; Admin Dose 650 MG; Start 01/06/17 at 04:30 Acetaminophen (Ofirmev 1000mg/ 100ml Iv) 100 ml @ 400 mls/hr Q6H PRN IVPB FEVER Last administered on 01/20/17 00:55; Admin Dose 400 MLS/HR; Start at 06:30 IV Flush (NS 10 ml) 10 ml PRN PRN IV IV PROTOCOL; Start 01/10/17 at 11:30 Amiodarone HCl (Cordarone) 200 mg BID GTB Last administered on 01/23/17 09:50 ; Admin Dose 200 MG; Start 01/11/17 at 12:00 Epoetin Mina 35851 units 10,000 units MoWeFr@17 SC Last administered on 18:42; Admin Dose 10,000 UNITS; Start 01/13/17 at 17:00 Meropenem/Sodium Chloride (Merrem 500mg/50 ml(Pmx)) 50 ml @ 200 mls/hr Q12H IVPB Last administered on 01/23/17 09:50; Admin Dose 200 MLS/HR; Start at 10:00 Metoprolol Tartrate (Lopressor) 25 mg BID PO Last administered on 01/23/17 09: 51; Admin Dose 25 MG; Start 01/15/17 at 15:00 Al Hydrox/Mg Hydrox/ Simethicone 30 ml 30 ml Q4 GTB Last administered on 09:51; Admin Dose 30 ML; Start 01/15/17 at 17:00 Caspofungin 50 mg/ Sodium Chloride 250 ml @ 250 mls/hr Q24H IVPB Last administered on 01/22/17 15:18; Admin Dose 250 MLS/HR; Start 01/17/17 at 14:30 Dextrose (D5W) 1,000 ml @ 50 mls/hr Q20H IV Last administered on 01/22/17 12: 30; Admin Dose 50 MLS/HR; Start 01/18/17 at 08:30 Metoclopramide HCl 10 mg 10 mg Q6 IV Last administered on 01/23/17 06:13; Admin Dose 10 MG; Start 01/18/17 at 12:00 Metronidazole (Flagyl 500 Mg (Pmx)) 100 ml @ 100 mls/hr Q8 IVPB Last administered on 01/23/17 06:14; Admin Dose 100 MLS/HR; Start 01/20/17 at 14:00 Pantoprazole 40 mg 40 mg DAILY@06 PO Last administered on 01/23/17 06:14; Admin Dose 40 MG; Start 01/22/17 at 06:00 Vancomycin HCl/ Sodium Chloride (Vancocin/NS) 250 ml @ 83.333 mls/ hr Q48H IVPB ; Start 01/24/17 at 06:00 MIKE TURCIOS NP Jan 23, 2017 11:08
--- NOTE | 2017-01-23 11:38 | CONS ---
Date/Time of Note Date/Time of Note DATE: 01/23/17 TIME: 11:36 Consult Date/Type/Reason Admit Date/Time Jan 04, 2017 at 19:10 Initial Consult Date 01/05/17 Type of Consultation: Pulmonary Ordering Provider: YING CASTAÑEDA Subjective Continues mechanical ventilation still significant weakness. Stable following tracheostomy and J-tube placement. Objective Vital Signs Date Time Temp Pulse Resp B/P Pulse Ox O2 Delivery O2 Flow Rate FiO2 01/23/17 11:32 105 26 99 30 01/23/17 08:00 99.8 121/79 Mechanical Ventilator Intake and Output 01/22/17 01/22/17 01/23/17 14:59 22:59 06:59 Intake Total 220 ml 570 ml Output Total 1425 ml 1175 ml 2000 ml Balance -1425 ml -955 ml -1430 ml Exam PHYSICAL EXAMINATION GENERAL: Elderly lady with tracheostomy on mechanical ventilation appears comfortable at rest VITAL SIGNS: see below. HEENT: Pupils equal, round, and reactive to light. Tracheostomy site clean and intact. CARDIAC: S1, S2, no added sounds or murmurs. CHEST: Diminished air entry bilaterally. ABDOMEN: Mildly distended. Bowel sounds present no guarding or rebound EXTREMITIES: No cyanosis, clubbing edema +1 NEUROLOGIC: Generalized weakness Results/Medications Result Diagram: 01/23/17 0445 01/23/17 0445 Results 24 hrs Laboratory Tests Test 01/22/17 17:27 01/23/17 04:45 Bedside Glucose 110 White Blood Count 14.8 H Red Blood Count 2.46 L Hemoglobin 7.2 L Hematocrit 22.7 L Mean Corpuscular Volume 92.3 Mean Corpuscular Hemoglobin 29.3 Mean Corpuscular Hemoglobin Concent 31.7 L Red Cell Distribution Width 15.9 H Platelet Count 516 H Mean Platelet Volume 10.7 H Neutrophils % 80.7 H Lymphocytes % 6.5 L Monocytes % 8.0 Eosinophils % 0.7 Basophils % 0.4 Nucleated Red Blood Cells % 0.0 Neutrophils # 11.9 H Lymphocytes # 1.0 Monocytes # 1.2 H Eosinophils # 0.1 Basophils # 0.1 Nucleated Red Blood Cells # 0.0 Sodium Level 142 Potassium Level 3.9 Chloride Level 107 Carbon Dioxide Level 22 Anion Gap 17 H Blood Urea Nitrogen 57 H Creatinine 2.37 H Glucose Level 108 Calcium Level 7.6 L Phosphorus Level 4.3 Magnesium Level 2.0 Total Bilirubin 0.1 L Direct Bilirubin 0.00 Indirect Bilirubin 0.1 Aspartate Amino Transf (AST/SGOT) 32 Alanine Aminotransferase (ALT/SGPT) 22 Alkaline Phosphatase 274 H Total Protein 7.0 Albumin 2.5 L Globulin 4.50 H Albumin/Globulin Ratio 0.55 Medications Current Medications Ondansetron HCl (Zofran Inj) 4 mg Q6H PRN IV NAUSEA AND/OR VOMITING; Start 01/04 at 19:30 Acetaminophen/ Hydrocodone Bitart ([place] (5/325)) 1 tab Q6H PRN PO MODERATE PAIN LEVEL 4-6; Start 01/04/17 at 19:30 Morphine Sulfate (morphine) 2 mg Q4H PRN IV SEVERE PAIN LEVEL 7-10 Last administered on 01/22/17 05:10; Admin Dose 2 MG; Start 01/04/17 at 19:30 Docusate Sodium (Colace) 100 mg Q12H PRN PO CONSTIPATION; Start 01/04/17 at 19: 30 Magnesium Hydroxide (Milk Of Mag) 30 ml DAILY PRN PO CONSTIPATION; Start at 19:30 Sodium Biphosphate/ Sodium Phosphate (Fleet Enema) 133 ml DAILY PRN [place] CONSTIPATION; Start 01/04/17 at 19:30 Lorazepam (Ativan) 0.5 mg Q6H PRN IV ANXIETY Last administered on 01/20/17 05: 25; Admin Dose 0.5 MG; Start 01/04/17 at 19:30 Hydralazine HCl (Apresoline) 10 mg Q6H PRN IV ELEVATED BLOOD PRESSURE; Start at 19:30 Nitroglycerin (Nitroglycerin (Sl Tab) 0.4 Mg) 1 tab Q5M PRN SL ANGINA; Start at 19:30 Phenobarbital (Luminal) 64.8 mg BID PO Last administered on 01/04/17 23:45; Admin Dose 64.8 MG; Start 01/04/17 at 21:00; Status Future Hold Topiramate (Topamax) 200 mg BID PO ; Start 01/05/17 at 21:00; Status Future Hold Miscellaneous Information 1 ea NOTE XX ; Start 01/04/17 at 19:30 Glucose (Glutose) 15 gm Q15M PRN PO DECREASED GLUCOSE; Start 01/04/17 at 19:30 Glucose (Glutose) 22.5 gm Q15M PRN PO DECREASED GLUCOSE; Start 01/04/17 at 19:30 Dextrose (D50w Syringe) 25 ml Q15M PRN IV DECREASED GLUCOSE Last administered on 01/08/17 05:36; Admin Dose 25 ML; Start 01/04/17 at 19:30 Dextrose (D50w Syringe) 50 ml Q15M PRN IV DECREASED GLUCOSE; Start 01/04/17 at 19:30 Glucagon (Glucagen) 1 mg Q15M PRN IM DECREASED GLUCOSE; Start 01/04/17 at 19:30 Glucose (Glutose) 15 gm Q15M PRN BUCCAL DECREASED GLUCOSE; Start 01/04/17 at 19: 30 Phenytoin (Dilantin Susp Cup) 100 mg TID PO Last administered on 01/04/17 23:44 ; Admin Dose 100 MG; Start 01/04/17 at 21:50; Status Future Hold Clonazepam 0.5 mg 0.5 mg Q8H PO Last administered on 01/04/17 23:45; Admin Dose 0.5 MG; Start 01/04/17 at 23:00; Status Future Hold Levetiracetam 100 ml @ 400 mls/hr Q12 IVPB Last administered on 01/23/17 09: 50; Admin Dose 400 MLS/HR; Start 01/05/17 at 11:30 Phenylephrine HCl/ Dextrose (Robert-Syneph/D5W) 500 ml @ 18.75 mls/ hr TITRATE IV Last administered on 01/20/17 02:34; Admin Dose 1.87 MLS/HR; Start 01/05/17 at 20:30 Acetaminophen 650 mg 650 mg Q4H PRN NGT PAIN AND OR ELEVATED TEMP Last administered on 01/23/17 00:21; Admin Dose 650 MG; Start 01/06/17 at 04:30 Acetaminophen (Ofirmev 1000mg/ 100ml Iv) 100 ml @ 400 mls/hr Q6H PRN IVPB FEVER Last administered on 01/20/17 00:55; Admin Dose 400 MLS/HR; Start at 06:30 IV Flush (NS 10 ml) 10 ml PRN PRN IV IV PROTOCOL; Start 01/10/17 at 11:30 Amiodarone HCl (Cordarone) 200 mg BID GTB Last administered on 01/23/17 09:50 ; Admin Dose 200 MG; Start 01/11/17 at 12:00 Epoetin Mina 83607 units 10,000 units MoWeFr@17 SC Last administered on 18:42; Admin Dose 10,000 UNITS; Start 01/13/17 at 17:00 Meropenem/Sodium Chloride (Merrem 500mg/50 ml(Pmx)) 50 ml @ 200 mls/hr Q12H IVPB Last administered on 01/23/17 09:50; Admin Dose 200 MLS/HR; Start at 10:00 Metoprolol Tartrate (Lopressor) 25 mg BID PO Last administered on 01/23/17 09: 51; Admin Dose 25 MG; Start 01/15/17 at 15:00 Al Hydrox/Mg Hydrox/ Simethicone 30 ml 30 ml Q4 GTB Last administered on 09:51; Admin Dose 30 ML; Start 01/15/17 at 17:00 Caspofungin 50 mg/ Sodium Chloride 250 ml @ 250 mls/hr Q24H IVPB Last administered on 01/22/17 15:18; Admin Dose 250 MLS/HR; Start 01/17/17 at 14:30 Dextrose (D5W) 1,000 ml @ 50 mls/hr Q20H IV Last administered on 01/22/17 12: 30; Admin Dose 50 MLS/HR; Start 01/18/17 at 08:30 Metoclopramide HCl 10 mg 10 mg Q6 IV Last administered on 01/23/17 06:13; Admin Dose 10 MG; Start 01/18/17 at 12:00 Metronidazole (Flagyl 500 Mg (Pmx)) 100 ml @ 100 mls/hr Q8 IVPB Last administered on 01/23/17 06:14; Admin Dose 100 MLS/HR; Start 01/20/17 at 14:00 Pantoprazole 40 mg 40 mg DAILY@06 PO Last administered on 01/23/17 06:14; Admin Dose 40 MG; Start 01/22/17 at 06:00 Vancomycin HCl/ Sodium Chloride (Vancocin/NS) 250 ml @ 83.333 mls/ hr Q48H IVPB ; Start 01/24/17 at 06:00 Assessment/Plan Chief Complaint/Hosp Course IMP: 1. Severe gallstone pancreatitis with septic shock, now slowly improving. Severe pancreatitis present on CT abdomen. Drop in hemoglobin. Questionable GI bleed. 2. Metabolic acidosis secondary to above and ARF 3. Renal failure likely ATN now requiring hemodialysis 4. 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 Status post thoracentesis right lung. Ongoing pulmonary edema and atelectasis on chest x-ray although radiographically improved. 5. History of seizure disorder 6. GI bleed status post endoscopy yesterday findings per chart. GI recommendations regarding jejunostomy tube RECS: 1. Hemodialysis today per nephrology 2. Continue mechanical ventilation, status post tracheostomy continue trach site care 3. Broad-spectrum antibiotic coverage 4. Nasogastric tube to suction will discuss with GI can restart feeding. 5. GI recommendations. Continue supportive care. 6. Continue DVT and GI prophylaxis 35 min cc time Consider transfer to telemetry. [place] evaluation. Problems: AMPARO VALERIO MD, [facility] Jan 23, 2017 11:38
--- NOTE | 2017-01-23 12:33 | PN ---
Date/Time of Note Date/Time of Note DATE: 01/23/17 TIME: 12:32 Assessment/Plan Lines/Catheters IV Catheter Type (from Nrsg): PICC Line Matias in Place (from Nrsg): Yes Assessment/Plan Chief Complaint/Hosp Course This is a 61-year-old female who was admitted because of pneumonia was found for progressively worsening renal failure. SP tracheostomy Trach site clean We will continue vent support Trach care Pulmonary toilet Problems: Subjective 24 Hr Interval Summary Constitutional: improved Pain Control: mild Exam/Review of Systems Vital Signs Vitals Vital Signs Date Time Temp Pulse Resp B/P Pulse Ox O2 Delivery O2 Flow Rate FiO2 01/23/17 12:00 105 01/23/17 11:32 26 99 30 01/23/17 08:00 99.8 121/79 Mechanical Ventilator Intake and Output 01/22/17 01/22/17 01/23/17 15:00 23:00 07:00 Intake Total 260 ml 570 ml Output Total 1450 ml 1200 ml 1950 ml Balance -1450 ml -940 ml -1380 ml Exam ENMT: mucosa pink and moist, nl external ears & nose, nl lips & teeth, nl nasal mucosa & septum Neck: non-tender, supple Respiratory: clear to auscultation, normal air movement Cardiovascular: nl pulses, regular rate and rhythm Results Result Diagram: 01/23/17 0445 01/23/17 0445 SAM GUTIERREZ MD Jan 23, 2017 12:33
[2017-01-23] MEDS: CASPOFUNGIN 50 MG in SOD CHLORIDE 0.9% 250 ML IVPB SCH (16:11)
[2017-01-23] MEDS: EPOETIN 10000 UNITS/1 ML INJ (ESRD) SC SCH (17:34)
--- NOTE | 2017-01-23 17:40 | CONS ---
Date/Time of Note Date/Time of Note DATE: 01/23/17 TIME: 17:38 Assessment/Plan Assessment/Plan Additional Assessment/Plan Paroxysmal atrial fibrillation, currently sinus rhythm Severe sepsis Acute pancreatitis status post ERCP Preserved ejection fraction Respiratory failure, vent dependent, status post tracheostomy Acute kidney injury now on hemodialysis Seizure disorder Psychiatric disorder Acute blood loss anemia GI bleed status post clipping - Would continue amiodarone to help maintain in sinus rhythm. No anticoagulation for atrial fibrillation given severe anemia and GI bleed. If hemoglobin continues to drop, would consider blood transfusion. Fluid management as per our nephrology colleagues. Ideally, maintain potassium above 4.0 and magnesium above 2.0 to decrease arrhythmias. Consultation Date/Type/Reason Admit Date/Time Jan 04, 2017 at 19:10 Initial Consult Date 01/05/17 Type of Consultation: cv Referring Provider: YING CASTAÑEDA 24 HR Interval Summary Free Text/Dictation Patient seen and examined. No new cardiac issues as per nursing staff Exam/Review of Systems Vital Signs Vitals Vital Signs Date Time Temp Pulse Resp B/P Pulse Ox O2 Delivery O2 Flow Rate FiO2 01/23/17 16:00 103 01/23/17 16:00 98.5 26 110/72 98 Mechanical Ventilator 01/23/17 15:33 30 Intake and Output 01/22/17 01/22/17 01/23/17 15:00 23:00 07:00 Intake Total 260 ml 820 ml Output Total 1450 ml 1200 ml 1950 ml Balance -1450 ml -940 ml -1130 ml Exam No apparent distress Head: normocephalic Neck: other (Tracheostomy) Respiratory: other (Coarse breath sounds bilaterally, no wheezing) Cardiovascular: other (S1-S2 heard), regular rate and rhythm Gastrointestinal: bowel sounds, non-tender, soft Extremities: edema Results Result Diagram: 01/23/17 0445 01/23/17 0445 Results 24 hrs Laboratory Tests Test 01/23/17 04:45 White Blood Count 14.8 H Red Blood Count 2.46 L Hemoglobin 7.2 L Hematocrit 22.7 L Mean Corpuscular Volume 92.3 Mean Corpuscular Hemoglobin 29.3 Mean Corpuscular Hemoglobin Concent 31.7 L Red Cell Distribution Width 15.9 H Platelet Count 516 H Mean Platelet Volume 10.7 H Neutrophils % 80.7 H Lymphocytes % 6.5 L Monocytes % 8.0 Eosinophils % 0.7 Basophils % 0.4 Nucleated Red Blood Cells % 0.0 Neutrophils # 11.9 H Lymphocytes # 1.0 Monocytes # 1.2 H Eosinophils # 0.1 Basophils # 0.1 Nucleated Red Blood Cells # 0.0 Sodium Level 142 Potassium Level 3.9 Chloride Level 107 Carbon Dioxide Level 22 Anion Gap 17 H Blood Urea Nitrogen 57 H Creatinine 2.37 H Glucose Level 108 Calcium Level 7.6 L Phosphorus Level 4.3 Magnesium Level 2.0 Total Bilirubin 0.1 L Direct Bilirubin 0.00 Indirect Bilirubin 0.1 Aspartate Amino Transf (AST/SGOT) 32 Alanine Aminotransferase (ALT/SGPT) 22 Alkaline Phosphatase 274 H Total Protein 7.0 Albumin 2.5 L Globulin 4.50 H Albumin/Globulin Ratio 0.55 Medications Medications Current Medications Ondansetron HCl (Zofran Inj) 4 mg Q6H PRN IV NAUSEA AND/OR VOMITING; Start 01/04 at 19:30 Acetaminophen/ Hydrocodone Bitart ([place] (5/325)) 1 tab Q6H PRN PO MODERATE PAIN LEVEL 4-6; Start 01/04/17 at 19:30 Morphine Sulfate (morphine) 2 mg Q4H PRN IV SEVERE PAIN LEVEL 7-10 Last administered on 01/22/17 05:10; Admin Dose 2 MG; Start 01/04/17 at 19:30 Docusate Sodium (Colace) 100 mg Q12H PRN PO CONSTIPATION; Start 01/04/17 at 19: 30 Magnesium Hydroxide (Milk Of Mag) 30 ml DAILY PRN PO CONSTIPATION; Start at 19:30 Sodium Biphosphate/ Sodium Phosphate (Fleet Enema) 133 ml DAILY PRN [place] CONSTIPATION; Start 01/04/17 at 19:30 Lorazepam (Ativan) 0.5 mg Q6H PRN IV ANXIETY Last administered on 01/20/17 05: 25; Admin Dose 0.5 MG; Start 01/04/17 at 19:30 Hydralazine HCl (Apresoline) 10 mg Q6H PRN IV ELEVATED BLOOD PRESSURE; Start at 19:30 Nitroglycerin (Nitroglycerin (Sl Tab) 0.4 Mg) 1 tab Q5M PRN SL ANGINA; Start at 19:30 Phenobarbital (Luminal) 64.8 mg BID PO Last administered on 01/04/17 23:45; Admin Dose 64.8 MG; Start 01/04/17 at 21:00; Status Future Hold Topiramate (Topamax) 200 mg BID PO ; Start 01/05/17 at 21:00; Status Future Hold Miscellaneous Information 1 ea NOTE XX ; Start 01/04/17 at 19:30 Glucose (Glutose) 15 gm Q15M PRN PO DECREASED GLUCOSE; Start 01/04/17 at 19:30 Glucose (Glutose) 22.5 gm Q15M PRN PO DECREASED GLUCOSE; Start 01/04/17 at 19:30 Dextrose (D50w Syringe) 25 ml Q15M PRN IV DECREASED GLUCOSE Last administered on 01/08/17 05:36; Admin Dose 25 ML; Start 01/04/17 at 19:30 Dextrose (D50w Syringe) 50 ml Q15M PRN IV DECREASED GLUCOSE; Start 01/04/17 at 19:30 Glucagon (Glucagen) 1 mg Q15M PRN IM DECREASED GLUCOSE; Start 01/04/17 at 19:30 Glucose (Glutose) 15 gm Q15M PRN BUCCAL DECREASED GLUCOSE; Start 01/04/17 at 19: 30 Phenytoin (Dilantin Susp Cup) 100 mg TID PO Last administered on 01/04/17 23:44 ; Admin Dose 100 MG; Start 01/04/17 at 21:50; Status Future Hold Clonazepam 0.5 mg 0.5 mg Q8H PO Last administered on 01/04/17 23:45; Admin Dose 0.5 MG; Start 01/04/17 at 23:00; Status Future Hold Levetiracetam (Keppra 1,000mg/ 100ml (Pmx)) 100 ml @ 400 mls/hr Q12 IVPB Last administered on 01/23/17 09:50; Admin Dose 400 MLS/HR; Start 01/05/17 at 11:30 Acetaminophen 650 mg 650 mg Q4H PRN NGT PAIN AND OR ELEVATED TEMP Last administered on 01/23/17 12:59; Admin Dose 650 MG; Start 01/06/17 at 04:30 Acetaminophen (Ofirmev 1000mg/ 100ml Iv) 100 ml @ 400 mls/hr Q6H PRN IVPB FEVER Last administered on 01/20/17 00:55; Admin Dose 400 MLS/HR; Start at 06:30 IV Flush (NS 10 ml) 10 ml PRN PRN IV IV PROTOCOL; Start 01/10/17 at 11:30 Amiodarone HCl (Cordarone) 200 mg BID GTB Last administered on 01/23/17 09:50 ; Admin Dose 200 MG; Start 01/11/17 at 12:00 Epoetin Mina 12702 units 10,000 units MoWeFr@17 SC Last administered on 17:34; Admin Dose 10,000 UNITS; Start 01/13/17 at 17:00 Meropenem/Sodium Chloride (Merrem 500mg/50 ml(Pmx)) 50 ml @ 200 mls/hr Q12H IVPB Last administered on 01/23/17 09:50; Admin Dose 200 MLS/HR; Start at 10:00 Metoprolol Tartrate (Lopressor) 25 mg BID PO Last administered on 01/23/17 09: 51; Admin Dose 25 MG; Start 01/15/17 at 15:00 Al Hydrox/Mg Hydrox/ Simethicone 30 ml 30 ml Q4 GTB Last administered on 17:33; Admin Dose 30 ML; Start 01/15/17 at 17:00 Caspofungin 50 mg/ Sodium Chloride 250 ml @ 250 mls/hr Q24H IVPB Last administered on 01/23/17 16:11; Admin Dose 250 MLS/HR; Start 01/17/17 at 14:30 Dextrose (D5W) 1,000 ml @ 50 mls/hr Q20H IV Last administered on 01/22/17 12: 30; Admin Dose 50 MLS/HR; Start 01/18/17 at 08:30 Metoclopramide HCl 10 mg 10 mg Q6 IV Last administered on 01/23/17 17:33; Admin Dose 10 MG; Start 01/18/17 at 12:00 Metronidazole (Flagyl 500 Mg (Pmx)) 100 ml @ 100 mls/hr Q8 IVPB Last administered on 01/23/17 14:24; Admin Dose 100 MLS/HR; Start 01/20/17 at 14:00 Pantoprazole 40 mg 40 mg DAILY@06 PO Last administered on 7/24/17at 06:14; Admin Dose 40 MG; Start 01/22/17 at 06:00 Vancomycin HCl/ Sodium Chloride (Vancocin/NS) 250 ml @ 83.333 mls/ hr Q48H IVPB ; Start 01/24/17 at 06:00 Vlad Leyva DO Jan 23, 2017 17:40
[2017-01-24] VITALS (37 sets, daily range): BP systolic 106–156; BP diastolic 70–88; PULSE 89–111; RESP 20–31
[2017-01-24] MEDS: AL HYDROX/MG HYDROX/SIMETH 30 ML CUP GTB SCH ×6 (01:41→19:53)
[2017-01-24] MEDS: metroNIDAZOLE 500 MG/NS (PMX) 100 ML IVPB SCH ×3 (04:24→22:52)
[2017-01-24] MEDS: ACETAMINOPHEN 650MG/20.3ML CUP NGT PRN ×2 (04:28→16:38)
[2017-01-24] MEDS: METOCLOPRAMIDE 10 MG INJ IV SCH ×2 (04:29)
[2017-01-24] MEDS: PANTOPRAZOLE (EC) 40 MG TAB PO SCH (05:12)
[2017-01-24 05:20] LABS: ABNORMAL IP MESSAGE 1; BASOPHIL # 0.1 10^3/ul (0.0-0.1); BASOPHILS % 0.4 % (0.0-2.0); EOSINOPHILS # 0.1 10^3/ul (0.0-0.5); EOSINOPHILS % 0.6 % (0.0-7.0); HEMATOCRIT 21.5 % (37.0-47.0); LYMPHOCYTES % 7.4 % (15.0-51.0); MEAN CORPUSCULAR HEMOGLOBIN 28.8 pg (29.0-33.0); MEAN CORPUSCULAR HGB CONC 31.2 g/dl (32.0-37.0); MEAN CORPUSCULAR VOLUME 92.3 fl (82.0-101.0); MEAN PLATELET VOLUME 10.3 fl (7.4-10.4); MONOCYTE # 1.1 10^3/ul (0.3-0.9); MONOCYTES % 8.1 % (0.0-11.0); NEUTROPHIL # 10.4 10^3/ul (1.6-7.5); NEUTROPHILS % 79.7 % (39.0-77.0); PLATELET COUNT 554 10^3/UL (140-415); RED BLOOD COUNT 2.33 10^6/ul (4.20-5.40); RED CELL DISTRIBUTION WIDTH 15.9 % (11.5-14.5); WHITE BLOOD COUNT 13.1 10^3/ul (4.8-10.8)
[2017-01-24 05:25] LABS: POSITIVE DIFF @See below
[2017-01-24 05:28] LABS: HEMOGLOBIN 6.7 g/dl (12.0-16.0)
[2017-01-24] MEDS ORDERED: VANCOMYCIN 1 GM in NS 250 ML IVPB SCH (06:00)
[2017-01-24] MEDS ORDERED: VANCOMYCIN 1.25 GM in SOD CHLORIDE 0.9% 250 ML IVPB SCH (06:00)
[2017-01-24 06:11] LABS: CALCIUM 7.3 mg/dl (8.4-10.2); CREATININE 1.94 mg/dl (0.44-1.00); MAGNESIUM 1.8 mg/dl (1.7-2.5); POTASSIUM 3.2 mmol/L (3.5-5.1)
[2017-01-24] MEDS: DEXTROSE 5% 1,000 ML IV SCH ×2 (06:40→18:40)
--- NOTE | 2017-01-24 08:10 | GILP ---
DATE OF PROCEDURE: PROCEDURE PERFORMED: Percutaneous endoscopic gastrostomy tube placement and feeding of the jejunostomy tube through the G-tube. INDICATION: Patient presenting with history of difficulty in swallowing. Patient is intubated. The patient is unable to take any p.o. feeding at this time. Percutaneous endoscopic gastrostomy with a J-tube extension was placed. PREOPERATIVE DIAGNOSIS: Dysphagia. POSTOPERATIVE DIAGNOSIS: Dysphagia. DESCRIPTION OF PROCEDURE: After informed written consent is obtained, while the patient was in supine position, the Olympus video upper endoscope was introduced into the oropharynx and then into the esophagus, subsequently into the stomach, and then into the duodenum. Biliary stent was noted in the place. Scope at this time was withdrawn to the level of the gastric cavity. The anterior abdominal wall was prepared with Betadine and alcohol and 2 mL of 2 percent Xylocaine was infiltrated at the endoscopic eliminating site and a 5 mm incision was made by using the scalpel. Through this incision, a trocar was inserted into the stomach and the stylet was removed. Through the trocar, a guidewire was inserted into the stomach and a guidewire was grabbed with a polypectomy snare and then it was brought out through the mouth along with the endoscope. To this end of the guidewire, a number 20 Microvasive G-tube was tied in a loop fashion and then it was brought out through the abdominal wall incision. The retention at this time. The proximal end of the G- tube was cut and through this tip of the G-tube an [employer] J-tube was inserted into the stomach and the tip of the J-tube endoscopically was grabbed with the help of a hemoclip and this was gently taken through the pylorus into the proximal jejunum. In the proximal jejunum, the third that was attached to the tip of the jejunostomy tube was anchored to the mucosa of the jejunum. Two hemoclips were applied and it seemed to be in the proper position. Endoscope was withdrawn. At this time, the outer tube of the J- tube was brought onto the J-tube site so that they are tightly fastened and procedure was terminated. PLAN: Recommend starting J-tube feeding in the a.m. Dictated By: Chaitanya Green MD /gigi/gregory /Document#: [id number] CC: Markell Reina MD;*[facility]*
[2017-01-24] MEDS ORDERED: POTASSIUM CHLORIDE 20 MEQ POWDER FOR ORAL SOLN PO PRN (08:30)
[2017-01-24] MEDS ORDERED: SOD CHLORIDE 0.9% 250 ML IV* ONE (08:37)
--- NOTE | 2017-01-24 08:46 | CONS ---
Date/Time of Note Date/Time of Note DATE: 01/24/17 TIME: 08:43 Assessment/Plan Assessment/Plan Chief Complaint/Hosp Course Admitted with abdominal pain and evidence of severe pancreatitis in otherwise good health. Problems: Additional Assessment/Plan 1. Renal function continues to improve with continued neg fluid balance 2. Hypokalemia noted, will replete 3. Inc anemia, will transfuse 2 units of packed cells and check coags and stool for ob 4. Fungal uti, abx noted Consultation Date/Type/Reason Admit Date/Time Jan 04, 2017 at 19:10 Initial Consult Date 01/05/17 Type of Consultation: cv Referring Provider: YING CASTAÑEDA 24 HR Interval Summary Subjective hx not possible: other (alert) Detailed Summary Respiratory: shortness of breath Cardiovascular: No chest pain Gastrointestinal: pain (nods yes) Exam/Review of Systems Vital Signs Vitals Vital Signs Date Time Temp Pulse Resp B/P Pulse Ox O2 Delivery O2 Flow Rate FiO2 01/24/17 08:00 98.5 98 26 108/77 98 Mechanical Ventilator 01/24/17 05:48 30 Intake and Output 01/23/17 01/23/17 01/24/17 15:00 23:00 07:00 Intake Total 990 ml 1310 ml 1320 ml Output Total 1505 ml 900 ml 1550 ml Balance -515 ml 410 ml -230 ml Exam Neck: No jvd Respiratory: clear to auscultation, diminished breath sounds Cardiovascular: regular rate and rhythm Gastrointestinal: distended (is mild and sl tender), soft Extremities: No edema (1+ sacral and periperhal edema) Results Result Diagram: 01/24/17 0435 01/24/17 0435 Results 24 hrs Laboratory Tests Test 01/24/17 04:35 White Blood Count 13.1 H Red Blood Count 2.33 L Hemoglobin 6.7 *L Hematocrit 21.5 L Mean Corpuscular Volume 92.3 Mean Corpuscular Hemoglobin 28.8 L Mean Corpuscular Hemoglobin Concent 31.2 L Red Cell Distribution Width 15.9 H Platelet Count 554 H Mean Platelet Volume 10.3 Neutrophils % 79.7 H Lymphocytes % 7.4 L Monocytes % 8.1 Eosinophils % 0.6 Basophils % 0.4 Nucleated Red Blood Cells % 0.0 Neutrophils # 10.4 H Lymphocytes # 1.0 Monocytes # 1.1 H Eosinophils # 0.1 Basophils # 0.1 Nucleated Red Blood Cells # 0.0 Sodium Level 146 H Potassium Level 3.2 L Chloride Level 110 Carbon Dioxide Level 20 L Anion Gap 19 H Blood Urea Nitrogen 46 #H Creatinine 1.94 H Glucose Level 107 Calcium Level 7.3 L Phosphorus Level 4.0 Magnesium Level 1.8 Medications Medications Current Medications Ondansetron HCl (Zofran Inj) 4 mg Q6H PRN IV NAUSEA AND/OR VOMITING; Start 01/04 at 19:30 Acetaminophen/ Hydrocodone Bitart ([place] (5/325)) 1 tab Q6H PRN PO MODERATE PAIN LEVEL 4-6; Start 01/04/17 at 19:30 Morphine Sulfate (morphine) 2 mg Q4H PRN IV SEVERE PAIN LEVEL 7-10 Last administered on 01/22/17 05:10; Admin Dose 2 MG; Start 01/04/17 at 19:30 Docusate Sodium (Colace) 100 mg Q12H PRN PO CONSTIPATION; Start 01/04/17 at 19: 30 Magnesium Hydroxide (Milk Of Mag) 30 ml DAILY PRN PO CONSTIPATION; Start at 19:30 Sodium Biphosphate/ Sodium Phosphate (Fleet Enema) 133 ml DAILY PRN [place] CONSTIPATION; Start 01/04/17 at 19:30 Phenobarbital (Luminal) 64.8 mg BID PO Last administered on 01/04/17 23:45; Admin Dose 64.8 MG; Start 01/04/17 at 21:00; Status Future Hold Topiramate (Topamax) 200 mg BID PO ; Start 01/05/17 at 21:00; Status Future Hold Miscellaneous Information 1 ea NOTE XX ; Start 01/04/17 at 19:30 Glucose (Glutose) 15 gm Q15M PRN PO DECREASED GLUCOSE; Start 01/04/17 at 19:30 Glucose (Glutose) 22.5 gm Q15M PRN PO DECREASED GLUCOSE; Start 01/04/17 at 19:30 Dextrose (D50w Syringe) 25 ml Q15M PRN IV DECREASED GLUCOSE Last administered on 01/08/17 05:36; Admin Dose 25 ML; Start 01/04/17 at 19:30 Dextrose (D50w Syringe) 50 ml Q15M PRN IV DECREASED GLUCOSE; Start 01/04/17 at 19:30 Glucagon (Glucagen) 1 mg Q15M PRN IM DECREASED GLUCOSE; Start 01/04/17 at 19:30 Glucose (Glutose) 15 gm Q15M PRN BUCCAL DECREASED GLUCOSE; Start 01/04/17 at 19: 30 Phenytoin (Dilantin Susp Cup) 100 mg TID PO Last administered on 01/04/17 23:44 ; Admin Dose 100 MG; Start 01/04/17 at 21:50; Status Future Hold Clonazepam 0.5 mg 0.5 mg Q8H PO Last administered on 01/04/17 23:45; Admin Dose 0.5 MG; Start 01/04/17 at 23:00; Status Future Hold Levetiracetam (Keppra 1,000mg/ 100ml (Pmx)) 100 ml @ 400 mls/hr Q12 IVPB Last administered on 01/23/17 20:23; Admin Dose 400 MLS/HR; Start 01/05/17 at 11:30 Acetaminophen 650 mg 650 mg Q4H PRN NGT PAIN AND OR ELEVATED TEMP Last administered on 01/24/17 04:28; Admin Dose 650 MG; Start 01/06/17 at 04:30 Acetaminophen (Ofirmev 1000mg/ 100ml Iv) 100 ml @ 400 mls/hr Q6H PRN IVPB FEVER Last administered on 01/20/17 00:55; Admin Dose 400 MLS/HR; Start at 06:30 IV Flush (NS 10 ml) 10 ml PRN PRN IV IV PROTOCOL; Start 01/10/17 at 11:30 Amiodarone HCl (Cordarone) 200 mg BID GTB Last administered on 01/23/17 20:23 ; Admin Dose 200 MG; Start 01/11/17 at 12:00 Epoetin Mina 49687 units 10,000 units MoWeFr@17 SC Last administered on 17:34; Admin Dose 10,000 UNITS; Start 01/13/17 at 17:00 Meropenem/Sodium Chloride (Merrem 500mg/50 ml(Pmx)) 50 ml @ 200 mls/hr Q12H IVPB Last administered on 01/23/17 22:00; Admin Dose 200 MLS/HR; Start at 10:00 Metoprolol Tartrate (Lopressor) 25 mg BID PO Last administered on 01/23/17 20: 23; Admin Dose 25 MG; Start 01/15/17 at 15:00 Al Hydrox/Mg Hydrox/ Simethicone 30 ml 30 ml Q4 GTB Last administered on 04:28; Admin Dose 30 ML; Start 01/15/17 at 17:00 Caspofungin 50 mg/ Sodium Chloride 250 ml @ 250 mls/hr Q24H IVPB Last administered on 01/23/17 16:11; Admin Dose 250 MLS/HR; Start 01/17/17 at 14:30 Dextrose 1,000 ml @ 50 mls/hr Q20H IV Last administered on 01/24/17 06:40; Admin Dose 50 MLS/HR; Start 01/18/17 at 08:30 Metronidazole (Flagyl 500 Mg (Pmx)) 100 ml @ 100 mls/hr Q8 IVPB Last administered on 01/24/17 04:24; Admin Dose 100 MLS/HR; Start 01/20/17 at 14:00 Pantoprazole 40 mg 40 mg DAILY@06 PO Last administered on 01/24/17 05:12; Admin Dose 40 MG; Start 01/22/17 at 06:00 Vancomycin HCl 1.25 gm/Sodium Chloride 250 ml @ 83.333 mls/ hr Q48H IVPB Last administered on 01/24/17 05:12; Admin Dose 83.333 MLS/HR; Start 01/24/17 at 06: 00 Potassium Chloride (KCl 20 MEQ/50 ML SW) 50 ml @ 25 mls/hr Q2H IVPB ; Start at 09:00; Stop 01/24/17 at 14:59; Status UNFRANCIS DONATO MD Jan 24, 2017 08:46
[2017-01-24] MEDS: LEVETIRACETAM 1000 MG (PMX) 100 ML IVPB SCH ×2 (09:16→19:53)
[2017-01-24] MEDS: AMIODARONE 200 MG TAB GTB SCH ×2 (09:16→19:52)
[2017-01-24] MEDS: METOPROLOL 25 MG TAB PO SCH ×2 (09:17→19:52)
[2017-01-24] MEDS: BALSAM PERU/CASTOR OIL 60 GM TUBE TOP SCH (09:32)
[2017-01-24] MEDS: POTASSIUM CHLORIDE 50 ML IVPB SCH ×3 (09:33→13:51)
[2017-01-24] MEDS: MEROPENEM 500MG/50 ML (PMX) 50 ML IVPB SCH (10:27)
--- NOTE | 2017-01-24 10:47 | CONS ---
Date/Time of Note Date/Time of Note DATE: 01/24/17 TIME: 10:44 Consult Date/Type/Reason Admit Date/Time Jan 04, 2017 at 19:10 Initial Consult Date 01/05/17 Type of Consultation: Pulmonary ICU Ordering Provider: YIGN CASTAÑEDA Subjective Comfortable following tracheostomy placement. Opens eyes appears comfortable no acute distress. Objective Vital Signs Date Time Temp Pulse Resp B/P Pulse Ox O2 Delivery O2 Flow Rate FiO2 01/24/17 09:00 105 26 127/78 99 Mechanical Ventilator 01/24/17 08:00 30 01/24/17 08:00 98.5 Intake and Output 01/23/17 01/23/17 01/24/17 14:59 22:59 06:59 Intake Total 1190 ml 1350 ml 1160 ml Output Total 1655 ml 900 ml 1550 ml Balance -465 ml 450 ml -390 ml Exam PHYSICAL EXAMINATION GENERAL: Elderly lady with tracheostomy on mechanical ventilation appears comfortable at rest VITAL SIGNS: see below. HEENT: Pupils equal, round, and reactive to light. Tracheostomy site clean and intact. CARDIAC: S1, S2, no added sounds or murmurs. CHEST: Diminished air entry bilaterally. ABDOMEN: Mildly distended. Bowel sounds present no guarding or rebound EXTREMITIES: No cyanosis, clubbing edema +1 NEUROLOGIC: Generalized weakness Results/Medications Result Diagram: 01/24/17 0435 01/24/17 0435 Results 24 hrs Laboratory Tests Test 01/24/17 04:35 White Blood Count 13.1 H Red Blood Count 2.33 L Hemoglobin 6.7 *L Hematocrit 21.5 L Mean Corpuscular Volume 92.3 Mean Corpuscular Hemoglobin 28.8 L Mean Corpuscular Hemoglobin Concent 31.2 L Red Cell Distribution Width 15.9 H Platelet Count 554 H Mean Platelet Volume 10.3 Neutrophils % 79.7 H Lymphocytes % 7.4 L Monocytes % 8.1 Eosinophils % 0.6 Basophils % 0.4 Nucleated Red Blood Cells % 0.0 Neutrophils # 10.4 H Lymphocytes # 1.0 Monocytes # 1.1 H Eosinophils # 0.1 Basophils # 0.1 Nucleated Red Blood Cells # 0.0 Sodium Level 146 H Potassium Level 3.2 L Chloride Level 110 Carbon Dioxide Level 20 L Anion Gap 19 H Blood Urea Nitrogen 46 #H Creatinine 1.94 H Glucose Level 107 Calcium Level 7.3 L Phosphorus Level 4.0 Magnesium Level 1.8 Medications Current Medications Ondansetron HCl (Zofran Inj) 4 mg Q6H PRN IV NAUSEA AND/OR VOMITING; Start 01/04 at 19:30 Acetaminophen/ Hydrocodone Bitart ([place] (5/325)) 1 tab Q6H PRN PO MODERATE PAIN LEVEL 4-6; Start 01/04/17 at 19:30 Morphine Sulfate (morphine) 2 mg Q4H PRN IV SEVERE PAIN LEVEL 7-10 Last administered on 01/22/17 05:10; Admin Dose 2 MG; Start 01/04/17 at 19:30 Docusate Sodium (Colace) 100 mg Q12H PRN PO CONSTIPATION; Start 01/04/17 at 19: 30 Magnesium Hydroxide (Milk Of Mag) 30 ml DAILY PRN PO CONSTIPATION; Start at 19:30 Sodium Biphosphate/ Sodium Phosphate (Fleet Enema) 133 ml DAILY PRN [place] CONSTIPATION; Start 01/04/17 at 19:30 Phenobarbital (Luminal) 64.8 mg BID PO Last administered on 01/04/17 23:45; Admin Dose 64.8 MG; Start 01/04/17 at 21:00; Status Future Hold Topiramate (Topamax) 200 mg BID PO ; Start 01/05/17 at 21:00; Status Future Hold Miscellaneous Information 1 ea NOTE XX ; Start 01/04/17 at 19:30 Glucose (Glutose) 15 gm Q15M PRN PO DECREASED GLUCOSE; Start 01/04/17 at 19:30 Glucose (Glutose) 22.5 gm Q15M PRN PO DECREASED GLUCOSE; Start 01/04/17 at 19:30 Dextrose (D50w Syringe) 25 ml Q15M PRN IV DECREASED GLUCOSE Last administered on 01/08/17 05:36; Admin Dose 25 ML; Start 01/04/17 at 19:30 Dextrose (D50w Syringe) 50 ml Q15M PRN IV DECREASED GLUCOSE; Start 01/04/17 at 19:30 Glucagon (Glucagen) 1 mg Q15M PRN IM DECREASED GLUCOSE; Start 01/04/17 at 19:30 Glucose (Glutose) 15 gm Q15M PRN BUCCAL DECREASED GLUCOSE; Start 01/04/17 at 19: 30 Phenytoin (Dilantin Susp Cup) 100 mg TID PO Last administered on 01/04/17 23:44 ; Admin Dose 100 MG; Start 01/04/17 at 21:50; Status Future Hold Clonazepam 0.5 mg 0.5 mg Q8H PO Last administered on 01/04/17 23:45; Admin Dose 0.5 MG; Start 01/04/17 at 23:00; Status Future Hold Levetiracetam (Keppra 1,000mg/ 100ml (Pmx)) 100 ml @ 400 mls/hr Q12 IVPB Last administered on 01/24/17 09:16; Admin Dose 400 MLS/HR; Start 01/05/17 at 11:30 Acetaminophen 650 mg 650 mg Q4H PRN NGT PAIN AND OR ELEVATED TEMP Last administered on 01/24/17 04:28; Admin Dose 650 MG; Start 01/06/17 at 04:30 Acetaminophen (Ofirmev 1000mg/ 100ml Iv) 100 ml @ 400 mls/hr Q6H PRN IVPB FEVER Last administered on 01/20/17 00:55; Admin Dose 400 MLS/HR; Start at 06:30 IV Flush (NS 10 ml) 10 ml PRN PRN IV IV PROTOCOL; Start 01/10/17 at 11:30 Amiodarone HCl (Cordarone) 200 mg BID GTB Last administered on 01/24/17 09:16 ; Admin Dose 200 MG; Start 01/11/17 at 12:00 Epoetin Mina 84822 units 10,000 units MoWeFr@17 SC Last administered on 17:34; Admin Dose 10,000 UNITS; Start 01/13/17 at 17:00 Meropenem/Sodium Chloride (Merrem 500mg/50 ml(Pmx)) 50 ml @ 200 mls/hr Q12H IVPB Last administered on 01/24/17 10:27; Admin Dose 200 MLS/HR; Start at 10:00 Metoprolol Tartrate (Lopressor) 25 mg BID PO Last administered on 01/24/17 09: 17; Admin Dose 25 MG; Start 01/15/17 at 15:00 Al Hydrox/Mg Hydrox/ Simethicone 30 ml 30 ml Q4 GTB Last administered on 09:16; Admin Dose 30 ML; Start 01/15/17 at 17:00 Caspofungin 50 mg/ Sodium Chloride 250 ml @ 250 mls/hr Q24H IVPB Last administered on 01/23/17 16:11; Admin Dose 250 MLS/HR; Start 01/17/17 at 14:30 Dextrose 1,000 ml @ 50 mls/hr Q20H IV Last administered on 01/24/17 06:40; Admin Dose 50 MLS/HR; Start 01/18/17 at 08:30 Metronidazole (Flagyl 500 Mg (Pmx)) 100 ml @ 100 mls/hr Q8 IVPB Last administered on 01/24/17 04:24; Admin Dose 100 MLS/HR; Start 01/20/17 at 14:00 Pantoprazole 40 mg 40 mg DAILY@06 PO Last administered on 01/24/17 05:12; Admin Dose 40 MG; Start 01/22/17 at 06:00 Vancomycin HCl 1.25 gm/Sodium Chloride 250 ml @ 83.333 mls/ hr Q48H IVPB Last administered on 01/24/17 05:12; Admin Dose 83.333 MLS/HR; Start 01/24/17 at 06: 00 Potassium Chloride (KCl 20 MEQ/50 ML SW) 50 ml @ 25 mls/hr Q2H IVPB Last administered on 01/24/17 09:33; Admin Dose 25 MLS/HR; Start 01/24/17 at 09:30; Stop 01/24/17 at 15:29 Assessment/Plan Chief Complaint/Hosp Course IMP: 1. Severe gallstone pancreatitis with septic shock, now slowly improving. Severe pancreatitis present on CT abdomen. Drop in hemoglobin. Questionable GI bleed. 2. Metabolic acidosis secondary to above and ARF 3. Renal failure likely ATN now requiring hemodialysis 4. 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 Status post thoracentesis right lung. Ongoing pulmonary edema and atelectasis on chest x-ray although radiographically improved. 5. History of seizure disorder RECS: 1. Hemodialysis today per nephrology, improved renal function noted. Discussed with nephrology may soon no longer require hemodialysis. 2. Continue mechanical ventilation, status post tracheostomy continue trach site care, ventilator weaning once patient is more stable 3. Broad-spectrum antibiotic coverage 4. Continue tube feeding. 5. GI recommendations. Continue supportive care. 6. Continue DVT and GI prophylaxis 7. Transfuse 2 units of packed red blood cells 35 min cc time Transfer to telemetry. Drain evaluation. Problems: AMPARO VALERIO MD, [facility] Jan 24, 2017 10:46
--- NOTE | 2017-01-24 11:17 | RADRPT ---
PROCEDURE: XR Chest. CLINICAL INDICATION: pna chf TECHNIQUE: Single frontal view of the chest was obtained COMPARISON: Chest x-ray 01/20/2017 FINDINGS: The endotracheal tube and nasogastric tube have been removed. Left lateral chest wall electrode device and wires are stable. Right PICC line terminating in the mid superior vena cava, stable. There is a new tracheostomy tube which appears in adequate position. There are persistent low lung volumes with compressive changes at the both lung bases. There is persistent hazy opacity at the right lung base suggestive of a small partially layering rig ht pleural effusion. Underlying atelectasis and/or consolidation cannot be excluded. No pneumothorax. No the osseous structures, as visualized, are unremarkable. IMPRESSION: 1. Interval removal of endotracheal tube and nasogastric tube. 2. Interval placement of tracheostomy tube. 3. Stable hazy opacity at the right lung base, suggestive of a small partially layering right pleur al effusion. Underlying atelectasis and/or consolidation cannot be excluded. RPTAT: PP Physician Domingo Date Time Electronically viewed and signed by Physician Domingo on 01/24/2017 11:17 /
[2017-01-24 11:33] LABS: INR 1.51; PARTIAL THROMBOPLASTIN TIME 42.8 Sec (25.0-35.0); PROTIME 18.3 Sec (12.2-14.2); PT RATIO 1.4
--- NOTE | 2017-01-24 12:43 | CONS ---
Date/Time of Note Date/Time of Note DATE: 01/24/17 TIME: 12:36 Assessment/Plan Assessment/Plan Additional Assessment/Plan Paroxysmal atrial fibrillation, currently sinus rhythm Severe sepsis Acute pancreatitis status post ERCP Preserved ejection fraction Respiratory failure, vent dependent, status post tracheostomy Acute kidney injury now on hemodialysis Seizure disorder Psychiatric disorder Acute blood loss anemia GI bleed status post clipping - Would continue amiodarone to help maintain in sinus rhythm. No anticoagulation for atrial fibrillation given severe anemia and GI bleed. Plan for blood transfusion today secondary to worsening hemoglobin. Fluid management as per our nephrology colleagues. Ideally, maintain potassium above 4.0 and magnesium above 2.0 to decrease arrhythmias. -Patient not looking towards the left side and concern for possible left hemineglect as well as weakness of the left hand. Patient with paroxysmal atrial fibrillation during the hospital stay and not anticoagulated secondary to severe bleeding. Last CT head done January 04, 2017. I did discuss with our colleague Dr. Marr, will order CT head Consultation Date/Type/Reason Admit Date/Time Jan 04, 2017 at 19:10 Initial Consult Date 01/05/17 Type of Consultation: cv Referring Provider: YING CASTAÑEDA 24 HR Interval Summary Free Text/Dictation Patient seen and examined, no new cardiac issues as per nursing staff Exam/Review of Systems Vital Signs Vitals Vital Signs Date Time Temp Pulse Resp B/P Pulse Ox O2 Delivery O2 Flow Rate FiO2 01/24/17 11:40 93 26 100 30 01/24/17 10:00 120/76 Mechanical Ventilator 01/24/17 08:00 98.5 Intake and Output 01/23/17 01/23/17 01/24/17 15:00 23:00 07:00 Intake Total 990 ml 1310 ml 1320 ml Output Total 1505 ml 900 ml 1550 ml Balance -515 ml 410 ml -230 ml Exam No apparent distress Constitutional: alert Head: normocephalic Neck: other (Tracheostomy) Respiratory: other (Coarse breath sounds bilaterally, no wheezing) Cardiovascular: other (S1-S2 heard), regular rate and rhythm Gastrointestinal: bowel sounds, non-tender, soft Extremities: edema Neurological: other (Patient not looking over towards left side, some weakness noted of left hand) Results Result Diagram: 01/24/17 0435 01/24/17 0435 Results 24 hrs Laboratory Tests Test 01/24/17 04:35 01/24/17 10:38 White Blood Count 13.1 H Red Blood Count 2.33 L Hemoglobin 6.7 *L Hematocrit 21.5 L Mean Corpuscular Volume 92.3 Mean Corpuscular Hemoglobin 28.8 L Mean Corpuscular Hemoglobin Concent 31.2 L Red Cell Distribution Width 15.9 H Platelet Count 554 H Mean Platelet Volume 10.3 Neutrophils % 79.7 H Lymphocytes % 7.4 L Monocytes % 8.1 Eosinophils % 0.6 Basophils % 0.4 Nucleated Red Blood Cells % 0.0 Neutrophils # 10.4 H Lymphocytes # 1.0 Monocytes # 1.1 H Eosinophils # 0.1 Basophils # 0.1 Nucleated Red Blood Cells # 0.0 Sodium Level 146 H Potassium Level 3.2 L Chloride Level 110 Carbon Dioxide Level 20 L Anion Gap 19 H Blood Urea Nitrogen 46 #H Creatinine 1.94 H Glucose Level 107 Calcium Level 7.3 L Phosphorus Level 4.0 Magnesium Level 1.8 Prothrombin Time 18.3 H Prothrombin Time Ratio 1.4 INR International Normalized Ratio 1.51 Activated Partial Thromboplast Time 42.8 H Medications Medications Current Medications Ondansetron HCl (Zofran Inj) 4 mg Q6H PRN IV NAUSEA AND/OR VOMITING; Start 01/04 at 19:30 Acetaminophen/ Hydrocodone Bitart ([place] (5/325)) 1 tab Q6H PRN PO MODERATE PAIN LEVEL 4-6; Start 01/04/17 at 19:30 Morphine Sulfate (morphine) 2 mg Q4H PRN IV SEVERE PAIN LEVEL 7-10 Last administered on 01/22/17 05:10; Admin Dose 2 MG; Start 01/04/17 at 19:30 Docusate Sodium (Colace) 100 mg Q12H PRN PO CONSTIPATION; Start 01/04/17 at 19: 30 Magnesium Hydroxide (Milk Of Mag) 30 ml DAILY PRN PO CONSTIPATION; Start at 19:30 Sodium Biphosphate/ Sodium Phosphate (Fleet Enema) 133 ml DAILY PRN [place] CONSTIPATION; Start 01/04/17 at 19:30 Phenobarbital (Luminal) 64.8 mg BID PO Last administered on 01/04/17 23:45; Admin Dose 64.8 MG; Start 01/04/17 at 21:00; Status Future Hold Topiramate (Topamax) 200 mg BID PO ; Start 01/05/17 at 21:00; Status Future Hold Miscellaneous Information 1 ea NOTE XX ; Start 01/04/17 at 19:30 Glucose (Glutose) 15 gm Q15M PRN PO DECREASED GLUCOSE; Start 01/04/17 at 19:30 Glucose (Glutose) 22.5 gm Q15M PRN PO DECREASED GLUCOSE; Start 01/04/17 at 19:30 Dextrose (D50w Syringe) 25 ml Q15M PRN IV DECREASED GLUCOSE Last administered on 01/08/17 05:36; Admin Dose 25 ML; Start 01/04/17 at 19:30 Dextrose (D50w Syringe) 50 ml Q15M PRN IV DECREASED GLUCOSE; Start 01/04/17 at 19:30 Glucagon (Glucagen) 1 mg Q15M PRN IM DECREASED GLUCOSE; Start 01/04/17 at 19:30 Glucose (Glutose) 15 gm Q15M PRN BUCCAL DECREASED GLUCOSE; Start 01/04/17 at 19: 30 Phenytoin (Dilantin Susp Cup) 100 mg TID PO Last administered on 01/04/17 23:44 ; Admin Dose 100 MG; Start 01/04/17 at 21:50; Status Future Hold Clonazepam 0.5 mg 0.5 mg Q8H PO Last administered on 01/04/17 23:45; Admin Dose 0.5 MG; Start 01/04/17 at 23:00; Status Future Hold Levetiracetam (Keppra 1,000mg/ 100ml (Pmx)) 100 ml @ 400 mls/hr Q12 IVPB Last administered on 01/24/17 09:16; Admin Dose 400 MLS/HR; Start 01/05/17 at 11:30 Acetaminophen 650 mg 650 mg Q4H PRN NGT PAIN AND OR ELEVATED TEMP Last administered on 01/24/17 04:28; Admin Dose 650 MG; Start 01/06/17 at 04:30 Acetaminophen (Ofirmev 1000mg/ 100ml Iv) 100 ml @ 400 mls/hr Q6H PRN IVPB FEVER Last administered on 01/20/17 00:55; Admin Dose 400 MLS/HR; Start at 06:30 IV Flush (NS 10 ml) 10 ml PRN PRN IV IV PROTOCOL; Start 01/10/17 at 11:30 Amiodarone HCl (Cordarone) 200 mg BID GTB Last administered on 01/24/17 09:16 ; Admin Dose 200 MG; Start 01/11/17 at 12:00 Epoetin Mina 47750 units 10,000 units MoWeFr@17 SC Last administered on 17:34; Admin Dose 10,000 UNITS; Start 01/13/17 at 17:00 Meropenem/Sodium Chloride (Merrem 500mg/50 ml(Pmx)) 50 ml @ 200 mls/hr Q12H IVPB Last administered on 01/24/17 10:27; Admin Dose 200 MLS/HR; Start at 10:00 Metoprolol Tartrate (Lopressor) 25 mg BID PO Last administered on 01/24/17 09: 17; Admin Dose 25 MG; Start 01/15/17 at 15:00 Al Hydrox/Mg Hydrox/ Simethicone 30 ml 30 ml Q4 GTB Last administered on 09:16; Admin Dose 30 ML; Start 01/15/17 at 17:00 Caspofungin 50 mg/ Sodium Chloride 250 ml @ 250 mls/hr Q24H IVPB Last administered on 01/23/17 16:11; Admin Dose 250 MLS/HR; Start 01/17/17 at 14:30 Dextrose 1,000 ml @ 50 mls/hr Q20H IV Last administered on 01/24/17 06:40; Admin Dose 50 MLS/HR; Start 01/18/17 at 08:30 Metronidazole (Flagyl 500 Mg (Pmx)) 100 ml @ 100 mls/hr Q8 IVPB Last administered on 01/24/17 04:24; Admin Dose 100 MLS/HR; Start 01/20/17 at 14:00 Pantoprazole 40 mg 40 mg DAILY@06 PO Last administered on 01/24/17 05:12; Admin Dose 40 MG; Start 01/22/17 at 06:00 Potassium Chloride 50 ml @ 25 mls/hr Q2H IVPB Last administered on 01/24/17 12 :22; Admin Dose 25 MLS/HR; Start 01/24/17 at 09:30; Stop 01/24/17 at 15:29 Vancomycin HCl/ Sodium Chloride (Vancocin/NS) 150 ml @ 75 mls/hr Q24H IVPB ; Start 01/25/17 at 06:00 Alteplase, Recombinant (Cathflo (Activase)) 2 mg ONCE ONCE CATHETER ; Start at 13:00; Stop 01/24/17 at 13:01 Vlad Leyva DO Jan 24, 2017 12:43
[2017-01-24] MEDS ORDERED: ALTEPLASE (CATHFLO) 2 MG INJ CATHETER ONE (13:00)
[2017-01-24] MEDS ORDERED: ALTEPLASE (CATHFLO) 2 MG INJ CATHETER PRN (13:00)
--- NOTE | 2017-01-24 13:13 | CONS ---
Date/Time of Note Date/Time of Note DATE: 01/24/17 TIME: 12:52 Assessment/Plan Assessment/Plan Chief Complaint/Hosp Course ID PROGRESS NOTE TOTAL ABX DAY #=> VANCO IV #12 + MERREM#12 + FLAGYL #4 + CANCIDAS #9 24H INTERVAL SUMMARY/HOSPITAL COURSE * s/p EGD w/PEG placement today, no fevers, WBC downtrend to 13.1 s/p infected HD catheter removal tip (+)Yeast * Noncommunicative on the Vent - Awake, alert, responsive * CXR 01/24/17 IMPRESSION:1. Interval removal of endotracheal tube and nasogastric tube.2. Interval placement of tracheostomy tube.3. Stable hazy opacity at the right lung base, suggestive of a small partially layering right pleural effusion. Underlying atelectasis and/or consolidation cannot be excluded. PHYSICAL EXAMINATION: GENERAL: No fevers, VSS, awake on Vent via Trach HEENT: Unremarkable, anicteric NECK: Trach(+) no bleeding, secure to Vent CHEST: Rise symmetrical w/course BS over vent tubing ABDOMEN: Soft, New PEG w/binder EXTREMITIES: Warm, moves extremities ID ASSESSMENT: 61 yo F admit with: 1. Severe sepsis with ongoing fevers and leukocytosis status post shock = RESOLVED * => femoral Gael discontinued 01/22/17 W/tip(+) yeast 2. Severe, acute pancreatitis, possibly developing pseudocyst 3. Choledocholithiasis, status post ERCP 01/12/17 with removal of the stone and stent placement 4. Coag negative staph bacteremia, likely contaminant 5. Acute respiratory failure-> Failed weaning, s/p Tracheostomy placement * s/p PEG 01/24/17 6. Acute renal failure requiring hemodialysis 7. Fungal urinary tract infection * s/p GNR UTI (E.Coli) 8. Diarrhea, rule out C. difficile 9. Anemia 2/2 GIB 10. HCAP * => CXR 01/24/17 Stable hazy opacity at the right lung base, suggestive of a small partially layering right pleural effusion. * Underlying atelectasis and/or consolidation cannot be excluded. (-) MRSA Nares screen INVASIVES: PICC. TRACH, PEG, FC ABX ALLERGY: KNDA CURRENT ABX: DAY #=> VANCO IV #12 + MERREM #12 + FLAGYL #4 + CANCIDAS #9 ID PLAN: * Patient has improved, no longer septic with orders for TELE * Let's de-escalate ABX and see how she tolerates * DC Vanco IV & Merrem * Start Cefepime * Continue Flagyl * Continue Cancidas per risk of disseminated fungemia w/retained PICC, FC . . Problems: Consultation Date/Type/Reason Admit Date/Time Jan 04, 2017 at 19:10 Initial Consult Date 01/11/17 Type of Consultation: ID Referring Provider: YING CASTAÑEDA Exam/Review of Systems Vital Signs Vitals Vital Signs Date Time Temp Pulse Resp B/P Pulse Ox O2 Delivery O2 Flow Rate FiO2 01/24/17 11:40 93 26 100 30 01/24/17 10:00 120/76 Mechanical Ventilator 01/24/17 08:00 98.5 Intake and Output 01/23/17 01/23/17 01/24/17 15:00 23:00 07:00 Intake Total 990 ml 1310 ml 1320 ml Output Total 1505 ml 900 ml 1550 ml Balance -515 ml 410 ml -230 ml Results Result Diagram: 01/24/17 0435 01/24/17 0435 Results 24 hrs Laboratory Tests Test 01/24/17 04:35 01/24/17 10:38 White Blood Count 13.1 H Red Blood Count 2.33 L Hemoglobin 6.7 *L Hematocrit 21.5 L Mean Corpuscular Volume 92.3 Mean Corpuscular Hemoglobin 28.8 L Mean Corpuscular Hemoglobin Concent 31.2 L Red Cell Distribution Width 15.9 H Platelet Count 554 H Mean Platelet Volume 10.3 Neutrophils % 79.7 H Lymphocytes % 7.4 L Monocytes % 8.1 Eosinophils % 0.6 Basophils % 0.4 Nucleated Red Blood Cells % 0.0 Neutrophils # 10.4 H Lymphocytes # 1.0 Monocytes # 1.1 H Eosinophils # 0.1 Basophils # 0.1 Nucleated Red Blood Cells # 0.0 Sodium Level 146 H Potassium Level 3.2 L Chloride Level 110 Carbon Dioxide Level 20 L Anion Gap 19 H Blood Urea Nitrogen 46 #H Creatinine 1.94 H Glucose Level 107 Calcium Level 7.3 L Phosphorus Level 4.0 Magnesium Level 1.8 Prothrombin Time 18.3 H Prothrombin Time Ratio 1.4 INR International Normalized Ratio 1.51 Activated Partial Thromboplast Time 42.8 H Medications Medications Current Medications Ondansetron HCl (Zofran Inj) 4 mg Q6H PRN IV NAUSEA AND/OR VOMITING; Start 01/04 at 19:30 Acetaminophen/ Hydrocodone Bitart ([place] (5/325)) 1 tab Q6H PRN PO MODERATE PAIN LEVEL 4-6; Start 01/04/17 at 19:30 Morphine Sulfate (morphine) 2 mg Q4H PRN IV SEVERE PAIN LEVEL 7-10 Last administered on 01/22/17 05:10; Admin Dose 2 MG; Start 01/04/17 at 19:30 Docusate Sodium (Colace) 100 mg Q12H PRN PO CONSTIPATION; Start 01/04/17 at 19: 30 Magnesium Hydroxide (Milk Of Mag) 30 ml DAILY PRN PO CONSTIPATION; Start at 19:30 Sodium Biphosphate/ Sodium Phosphate (Fleet Enema) 133 ml DAILY PRN [place] CONSTIPATION; Start 01/04/17 at 19:30 Phenobarbital (Luminal) 64.8 mg BID PO Last administered on 01/04/17 23:45; Admin Dose 64.8 MG; Start 01/04/17 at 21:00; Status Future Hold Topiramate (Topamax) 200 mg BID PO ; Start 01/05/17 at 21:00; Status Future Hold Miscellaneous Information 1 ea NOTE XX ; Start 01/04/17 at 19:30 Glucose (Glutose) 15 gm Q15M PRN PO DECREASED GLUCOSE; Start 01/04/17 at 19:30 Glucose (Glutose) 22.5 gm Q15M PRN PO DECREASED GLUCOSE; Start 01/04/17 at 19:30 Dextrose (D50w Syringe) 25 ml Q15M PRN IV DECREASED GLUCOSE Last administered on 01/08/17 05:36; Admin Dose 25 ML; Start 01/04/17 at 19:30 Dextrose (D50w Syringe) 50 ml Q15M PRN IV DECREASED GLUCOSE; Start 01/04/17 at 19:30 Glucagon (Glucagen) 1 mg Q15M PRN IM DECREASED GLUCOSE; Start 01/04/17 at 19:30 Glucose (Glutose) 15 gm Q15M PRN BUCCAL DECREASED GLUCOSE; Start 01/04/17 at 19: 30 Phenytoin (Dilantin Susp Cup) 100 mg TID PO Last administered on 01/04/17 23:44 ; Admin Dose 100 MG; Start 01/04/17 at 21:50; Status Future Hold Clonazepam 0.5 mg 0.5 mg Q8H PO Last administered on 01/04/17 23:45; Admin Dose 0.5 MG; Start 01/04/17 at 23:00; Status Future Hold Levetiracetam (Keppra 1,000mg/ 100ml (Pmx)) 100 ml @ 400 mls/hr Q12 IVPB Last administered on 01/24/17 09:16; Admin Dose 400 MLS/HR; Start 01/05/17 at 11:30 Acetaminophen 650 mg 650 mg Q4H PRN NGT PAIN AND OR ELEVATED TEMP Last administered on 01/24/17 04:28; Admin Dose 650 MG; Start 01/06/17 at 04:30 Acetaminophen (Ofirmev 1000mg/ 100ml Iv) 100 ml @ 400 mls/hr Q6H PRN IVPB FEVER Last administered on 01/20/17 00:55; Admin Dose 400 MLS/HR; Start at 06:30 IV Flush (NS 10 ml) 10 ml PRN PRN IV IV PROTOCOL; Start 01/10/17 at 11:30 Amiodarone HCl (Cordarone) 200 mg BID GTB Last administered on 01/24/17 09:16 ; Admin Dose 200 MG; Start 01/11/17 at 12:00 Epoetin Mina 68357 units 10,000 units MoWeFr@17 SC Last administered on 17:34; Admin Dose 10,000 UNITS; Start 01/13/17 at 17:00 Meropenem/Sodium Chloride (Merrem 500mg/50 ml(Pmx)) 50 ml @ 200 mls/hr Q12H IVPB Last administered on 01/24/17 10:27; Admin Dose 200 MLS/HR; Start at 10:00 Metoprolol Tartrate (Lopressor) 25 mg BID PO Last administered on 01/24/17 09: 17; Admin Dose 25 MG; Start 01/15/17 at 15:00 Al Hydrox/Mg Hydrox/ Simethicone 30 ml 30 ml Q4 GTB Last administered on 09:16; Admin Dose 30 ML; Start 01/15/17 at 17:00 Caspofungin 50 mg/ Sodium Chloride 250 ml @ 250 mls/hr Q24H IVPB Last administered on 01/23/17 16:11; Admin Dose 250 MLS/HR; Start 01/17/17 at 14:30 Dextrose 1,000 ml @ 50 mls/hr Q20H IV Last administered on 01/24/17 06:40; Admin Dose 50 MLS/HR; Start 01/18/17 at 08:30 Metronidazole (Flagyl 500 Mg (Pmx)) 100 ml @ 100 mls/hr Q8 IVPB Last administered on 01/24/17 04:24; Admin Dose 100 MLS/HR; Start 01/20/17 at 14:00 Pantoprazole 40 mg 40 mg DAILY@06 PO Last administered on 01/24/17 05:12; Admin Dose 40 MG; Start 01/22/17 at 06:00 Potassium Chloride 50 ml @ 25 mls/hr Q2H IVPB Last administered on 01/24/17 12 :22; Admin Dose 25 MLS/HR; Start 01/24/17 at 09:30; Stop 01/24/17 at 15:29 Vancomycin HCl/ Sodium Chloride (Vancocin/NS) 150 ml @ 75 mls/hr Q24H IVPB ; Start 01/25/17 at 06:00 Alteplase, Recombinant (Cathflo (Activase)) 2 mg ONCE ONCE CATHETER ; Start at 13:00; Stop 01/24/17 at 13:01 GAYATRI SALDIVAR NP Jan 24, 2017 13:02
[2017-01-24] MEDS: CEFEPIME 1GM/50 ML (PMX) 50 ML IVPB SCH (13:51)
[2017-01-24] MEDS: CASPOFUNGIN 50 MG in SOD CHLORIDE 0.9% 250 ML IVPB SCH (15:01)
--- NOTE | 2017-01-24 19:52 | PN ---
Date/Time of Note Date/Time of Note DATE: 01/24/17 TIME: 19:51 Assessment/Plan Lines/Catheters IV Catheter Type (from Nrsg): PICC Line Matias in Place (from Nrsg): Yes Assessment/Plan Chief Complaint/Hosp Course This is a 61-year-old female who was admitted because of pneumonia was found for progressively worsening renal failure. SP tracheostomy Trach site clean We will continue vent support Trach care Pulmonary toilet Problems: Subjective 24 Hr Interval Summary Constitutional: improved Pain Control: mild Exam/Review of Systems Vital Signs Vitals Vital Signs Date Time Temp Pulse Resp B/P Pulse Ox O2 Delivery O2 Flow Rate FiO2 01/24/17 19:00 95 26 124/78 98 01/24/17 18:00 Mechanical Ventilator 01/24/17 17:10 30 01/24/17 16:00 99.9 Intake and Output 01/23/17 01/23/17 01/24/17 15:00 23:00 07:00 Intake Total 990 ml 1310 ml 1320 ml Output Total 1505 ml 900 ml 1550 ml Balance -515 ml 410 ml -230 ml Exam Eyes: EOMI, nl conjunctiva, nl lids, nl sclera ENMT: mucosa pink and moist, nl external ears & nose, nl lips & teeth, nl nasal mucosa & septum Neck: non-tender, supple Respiratory: clear to auscultation, normal air movement Cardiovascular: nl pulses, regular rate and rhythm Results Result Diagram: 01/24/17 0435 01/24/17 0435 SAM GUTIERREZ MD Jan 24, 2017 19:52
[2017-01-24] MEDS ORDERED: CEFEPIME 1GM/50 ML (PMX) 50 ML IVPB SCH (21:00)
[2017-01-25] VITALS (42 sets, daily range): BP systolic 120–161; BP diastolic 57–109; PULSE 89–118; RESP 19–31
[2017-01-25] MEDS: AL HYDROX/MG HYDROX/SIMETH 30 ML CUP GTB SCH ×6 (00:08→21:00)
--- NOTE | 2017-01-25 02:38 | RADRPT ---
PROCEDURE: CT head, without contrast. CLINICAL INDICATION: Left hand weakness and possible left hemineglect. TECHNIQUE: Noncontrast CT examination of the head, with axial, sagittal and coronal reformatted im ages. Automated dose exposure control was employed. CTDI: 45.01 and DLP: 720.23. COMPARISON: 01/04/2017. FINDINGS: Chronic changes of atrophy and small vessel disease of white matter. No acute hemorrhage. Subarachnoid spaces are substantially preserved and symmetric. Ventricles ar e unremarkable. No mass effect. Hicks-white matter distinction is preserved without evident decreased attenuation t o suggest acute or recent infarct. Sinuses and osseous structures are unremarkable. Generally, CT examination of the head a similar appearance to the prior examination dated 01/04/2017 . IMPRESSION: 1. Chronic changes of atrophy and small vessel disease white matter. 2. MRI examination may be more sensitive and specific for detecting acute infarcts. 3. Otherwise, no acute process in the head. RPTAT: [facility] Physician Juan Jose Date Time Electronically viewed and signed by Physician Juan Jose on 01/25/2017 02:38 RS/
[2017-01-25 05:28] LABS: BASOPHIL # 0.1 10^3/ul (0.0-0.1); BASOPHILS % 0.6 % (0.0-2.0); EOSINOPHILS % 0.3 % (0.0-7.0); HEMATOCRIT 28.3 % (37.0-47.0); LYMPHOCYTES # 0.9 10^3/ul (0.8-2.9); LYMPHOCYTES % 6.7 % (15.0-51.0); MEAN CORPUSCULAR HGB CONC 31.8 g/dl (32.0-37.0); MEAN CORPUSCULAR VOLUME 91.3 fl (82.0-101.0); MEAN PLATELET VOLUME 9.8 fl (7.4-10.4); MONOCYTES % 7.6 % (0.0-11.0); NEUTROPHIL # 10.8 10^3/ul (1.6-7.5); NEUTROPHILS % 80.9 % (39.0-77.0); PLATELET COUNT 597 10^3/UL (140-415); RED CELL DISTRIBUTION WIDTH 16.1 % (11.5-14.5); WHITE BLOOD COUNT 13.4 10^3/ul (4.8-10.8)
[2017-01-25] MEDS: PANTOPRAZOLE (EC) 40 MG TAB PO SCH (05:40)
[2017-01-25] MEDS: metroNIDAZOLE 500 MG/NS (PMX) 100 ML IVPB SCH ×3 (05:41→21:48)
[2017-01-25 05:49] LABS: CALCIUM 7.7 mg/dl (8.4-10.2); CREATININE 1.67 mg/dl (0.44-1.00); MAGNESIUM 1.8 mg/dl (1.7-2.5); PHOSPHORUS 3.3 mg/dl (2.5-4.9); POTASSIUM 4.1 mmol/L (3.5-5.1)
[2017-01-25] MEDS ORDERED: VANCOMYCIN 750 MG in SOD CHLORIDE 0.9% 150 ML IVPB SCH (06:00)
[2017-01-25] MEDS: DEXTROSE 5% 1,000 ML IV SCH ×4 (07:00→21:56)
--- NOTE | 2017-01-25 08:24 | CONS ---
Date/Time of Note Date/Time of Note DATE: 01/25/17 TIME: 08:22 Assessment/Plan Assessment/Plan Chief Complaint/Hosp Course Admitted with abdominal pain and evidence of severe pancreatitis in otherwise good health. Problems: Additional Assessment/Plan 1. Renal function continues to improve 2. Mild hypernatremia, will inc D5W 3. Anemia is stable 4. Resolving pancreatitis, with still abd distension, ? need f/u CT abd Consultation Date/Type/Reason Admit Date/Time Jan 04, 2017 at 19:10 Initial Consult Date 01/05/17 Type of Consultation: ID Referring Provider: YING CASTAÑEDA 24 HR Interval Summary Constitutional: other (alert) Exam/Review of Systems Vital Signs Vitals Vital Signs Date Time Temp Pulse Resp B/P Pulse Ox O2 Delivery O2 Flow Rate FiO2 01/25/17 07:00 95 26 132/82 97 01/25/17 05:19 30 01/24/17 20:00 98.9 01/24/17 18:00 Mechanical Ventilator Intake and Output 01/24/17 01/24/17 01/25/17 15:00 23:00 07:00 Intake Total 1700 ml 1580 ml 1490 ml Output Total 1720 ml 1505 ml 1570 ml Balance -20 ml 75 ml -80 ml Exam Neck: No jvd Respiratory: diminished breath sounds, No crackles/rales Cardiovascular: regular rate and rhythm Gastrointestinal: soft Extremities: edema (trace sacral edema) Results Result Diagram: 01/25/17 0415 01/25/17 0415 Results 24 hrs Laboratory Tests Test 01/24/17 10:38 01/24/17 14:50 01/25/17 04:15 01/25/17 05:08 Prothrombin Time 18.3 H Prothrombin Time Ratio 1.4 INR International Normalized Ratio 1.51 Activated Partial Thromboplast Time 42.8 H Stool Occult Blood POSITIVE White Blood Count 13.4 H Red Blood Count 3.10 #L Hemoglobin 9.0 #L Hematocrit 28.3 #L Mean Corpuscular Volume 91.3 Mean Corpuscular Hemoglobin 29.0 Mean Corpuscular Hemoglobin Concent 31.8 L Red Cell Distribution Width 16.1 H Platelet Count 597 H Mean Platelet Volume 9.8 Neutrophils % 80.9 H Lymphocytes % 6.7 L Monocytes % 7.6 Eosinophils % 0.3 Basophils % 0.6 Nucleated Red Blood Cells % 0.0 Neutrophils # 10.8 H Lymphocytes # 0.9 Monocytes # 1.0 H Eosinophils # 0.0 Basophils # 0.1 Nucleated Red Blood Cells # 0.0 Sodium Level 147 H Potassium Level 4.1 Chloride Level 111 H Carbon Dioxide Level 23 Anion Gap 17 H Blood Urea Nitrogen 45 H Creatinine 1.67 H Glucose Level 109 Calcium Level 7.7 L Phosphorus Level 3.3 Magnesium Level 1.8 Lab Scanned Report BLOOD TRANSFUSION Medications Medications Current Medications Ondansetron HCl (Zofran Inj) 4 mg Q6H PRN IV NAUSEA AND/OR VOMITING; Start 01/04 at 19:30 Acetaminophen/ Hydrocodone Bitart ([place] (5/325)) 1 tab Q6H PRN PO MODERATE PAIN LEVEL 4-6; Start 01/04/17 at 19:30 Morphine Sulfate (morphine) 2 mg Q4H PRN IV SEVERE PAIN LEVEL 7-10 Last administered on 01/22/17 05:10; Admin Dose 2 MG; Start 01/04/17 at 19:30 Docusate Sodium (Colace) 100 mg Q12H PRN PO CONSTIPATION; Start 01/04/17 at 19: 30 Magnesium Hydroxide (Milk Of Mag) 30 ml DAILY PRN PO CONSTIPATION; Start at 19:30 Sodium Biphosphate/ Sodium Phosphate (Fleet Enema) 133 ml DAILY PRN [place] CONSTIPATION; Start 01/04/17 at 19:30 Phenobarbital (Luminal) 64.8 mg BID PO Last administered on 01/04/17 23:45; Admin Dose 64.8 MG; Start 01/04/17 at 21:00; Status Future Hold Topiramate (Topamax) 200 mg BID PO ; Start 01/05/17 at 21:00; Status Future Hold Miscellaneous Information 1 ea NOTE XX ; Start 01/04/17 at 19:30 Glucose (Glutose) 15 gm Q15M PRN PO DECREASED GLUCOSE; Start 01/04/17 at 19:30 Glucose (Glutose) 22.5 gm Q15M PRN PO DECREASED GLUCOSE; Start 01/04/17 at 19:30 Dextrose (D50w Syringe) 25 ml Q15M PRN IV DECREASED GLUCOSE Last administered on 01/08/17 05:36; Admin Dose 25 ML; Start 01/04/17 at 19:30 Dextrose (D50w Syringe) 50 ml Q15M PRN IV DECREASED GLUCOSE; Start 01/04/17 at 19:30 Glucagon (Glucagen) 1 mg Q15M PRN IM DECREASED GLUCOSE; Start 01/04/17 at 19:30 Glucose (Glutose) 15 gm Q15M PRN BUCCAL DECREASED GLUCOSE; Start 01/04/17 at 19: 30 Phenytoin (Dilantin Susp Cup) 100 mg TID PO Last administered on 01/04/17 23:44 ; Admin Dose 100 MG; Start 01/04/17 at 21:50; Status Future Hold Clonazepam 0.5 mg 0.5 mg Q8H PO Last administered on 01/04/17 23:45; Admin Dose 0.5 MG; Start 01/04/17 at 23:00; Status Future Hold Levetiracetam (Keppra 1,000mg/ 100ml (Pmx)) 100 ml @ 400 mls/hr Q12 IVPB Last administered on 01/24/17 19:53; Admin Dose 400 MLS/HR; Start 01/05/17 at 11:30 Acetaminophen 650 mg 650 mg Q4H PRN NGT PAIN AND OR ELEVATED TEMP Last administered on 01/24/17 16:38; Admin Dose 650 MG; Start 01/06/17 at 04:30 Acetaminophen (Ofirmev 1000mg/ 100ml Iv) 100 ml @ 400 mls/hr Q6H PRN IVPB FEVER Last administered on 01/20/17 00:55; Admin Dose 400 MLS/HR; Start at 06:30 IV Flush (NS 10 ml) 10 ml PRN PRN IV IV PROTOCOL; Start 01/10/17 at 11:30 Amiodarone HCl (Cordarone) 200 mg BID GTB Last administered on 01/24/17 19:52 ; Admin Dose 200 MG; Start 01/11/17 at 12:00 Epoetin Mina (Epogen (Esrd)) 10,000 units MoWeFr@17 SC Last administered on 17:34; Admin Dose 10,000 UNITS; Start 01/13/17 at 17:00 Metoprolol Tartrate (Lopressor) 25 mg BID PO Last administered on 01/24/17 19: 52; Admin Dose 25 MG; Start 01/15/17 at 15:00 Al Hydrox/Mg Hydrox/ Simethicone 30 ml 30 ml Q4 GTB Last administered on 05:40; Admin Dose 30 ML; Start 01/15/17 at 17:00 Caspofungin 50 mg/ Sodium Chloride 250 ml @ 250 mls/hr Q24H IVPB Last administered on 01/24/17 15:01; Admin Dose 250 MLS/HR; Start 01/17/17 at 14:30 Dextrose 1,000 ml @ 50 mls/hr Q20H IV Last administered on 01/25/17 07:00; Admin Dose 50 MLS/HR; Start 01/18/17 at 08:30 Metronidazole (Flagyl 500 Mg (Pmx)) 100 ml @ 100 mls/hr Q8 IVPB Last administered on 01/25/17 05:41; Admin Dose 100 MLS/HR; Start 01/20/17 at 14:00 Pantoprazole 40 mg 40 mg DAILY@06 PO Last administered on 01/25/17 05:40; Admin Dose 40 MG; Start 01/22/17 at 06:00 Cefepime HCl (Maxipime 1gm/50 ml (Pmx)) 50 ml @ 100 mls/hr Q24H IVPB Last administered on 01/24/17 13:51; Admin Dose 100 MLS/HR; Start 01/24/17 at 13:30 FRANCIS JULES MD Jan 25, 2017 08:24
[2017-01-25] MEDS: AMIODARONE 200 MG TAB GTB SCH ×2 (08:32→21:47)
[2017-01-25] MEDS: BALSAM PERU/CASTOR OIL 60 GM TUBE TOP SCH (08:33)
[2017-01-25] MEDS: METOPROLOL 25 MG TAB PO SCH ×2 (08:33→21:48)
[2017-01-25] MEDS: LEVETIRACETAM 1000 MG (PMX) 100 ML IVPB SCH ×2 (09:39→22:07)
--- NOTE | 2017-01-25 10:40 | CONS ---
Date/Time of Note Date/Time of Note DATE: 01/25/17 TIME: 10:37 Consult Date/Type/Reason Admit Date/Time Jan 04, 2017 at 19:10 Initial Consult Date 01/05/17 Type of Consultation: Pulmonary ICU Ordering Provider: YING CASTAÑEDA Subjective Patient awake alert comfortable on mechanical ventilation. No vasopressor support. Objective Vital Signs Date Time Temp Pulse Resp B/P Pulse Ox O2 Delivery O2 Flow Rate FiO2 01/25/17 09:00 89 26 132/78 97 Mechanical Ventilator 01/25/17 08:00 98.6 01/25/17 08:00 30 Intake and Output 01/24/17 01/24/17 01/25/17 15:00 23:00 07:00 Intake Total 1700 ml 1580 ml 1490 ml Output Total 1720 ml 1505 ml 1570 ml Balance -20 ml 75 ml -80 ml Exam PHYSICAL EXAMINATION GENERAL: Elderly lady with tracheostomy on mechanical ventilation appears comfortable at rest VITAL SIGNS: see below. HEENT: Pupils equal, round, and reactive to light. Tracheostomy site clean and intact. CARDIAC: S1, S2, no added sounds or murmurs. CHEST: Diminished air entry bilaterally. ABDOMEN: Mildly distended. Bowel sounds present no guarding or rebound EXTREMITIES: No cyanosis, clubbing edema +1 NEUROLOGIC: Generalized weakness Results/Medications Result Diagram: 01/25/17 0415 01/25/17 0415 Results 24 hrs Laboratory Tests Test 01/24/17 10:38 01/24/17 14:50 01/25/17 04:15 01/25/17 05:08 Prothrombin Time 18.3 H Prothrombin Time Ratio 1.4 INR International Normalized Ratio 1.51 Activated Partial Thromboplast Time 42.8 H Stool Occult Blood POSITIVE White Blood Count 13.4 H Red Blood Count 3.10 #L Hemoglobin 9.0 #L Hematocrit 28.3 #L Mean Corpuscular Volume 91.3 Mean Corpuscular Hemoglobin 29.0 Mean Corpuscular Hemoglobin Concent 31.8 L Red Cell Distribution Width 16.1 H Platelet Count 597 H Mean Platelet Volume 9.8 Neutrophils % 80.9 H Lymphocytes % 6.7 L Monocytes % 7.6 Eosinophils % 0.3 Basophils % 0.6 Nucleated Red Blood Cells % 0.0 Neutrophils # 10.8 H Lymphocytes # 0.9 Monocytes # 1.0 H Eosinophils # 0.0 Basophils # 0.1 Nucleated Red Blood Cells # 0.0 Sodium Level 147 H Potassium Level 4.1 Chloride Level 111 H Carbon Dioxide Level 23 Anion Gap 17 H Blood Urea Nitrogen 45 H Creatinine 1.67 H Glucose Level 109 Calcium Level 7.7 L Phosphorus Level 3.3 Magnesium Level 1.8 Lab Scanned Report BLOOD TRANSFUSION Medications Current Medications Ondansetron HCl (Zofran Inj) 4 mg Q6H PRN IV NAUSEA AND/OR VOMITING; Start 01/04 at 19:30 Acetaminophen/ Hydrocodone Bitart ([place] (5/325)) 1 tab Q6H PRN PO MODERATE PAIN LEVEL 4-6; Start 01/04/17 at 19:30 Morphine Sulfate (morphine) 2 mg Q4H PRN IV SEVERE PAIN LEVEL 7-10 Last administered on 01/22/17 05:10; Admin Dose 2 MG; Start 01/04/17 at 19:30 Docusate Sodium (Colace) 100 mg Q12H PRN PO CONSTIPATION; Start 01/04/17 at 19: 30 Magnesium Hydroxide (Milk Of Mag) 30 ml DAILY PRN PO CONSTIPATION; Start at 19:30 Sodium Biphosphate/ Sodium Phosphate (Fleet Enema) 133 ml DAILY PRN [place] CONSTIPATION; Start 01/04/17 at 19:30 Phenobarbital (Luminal) 64.8 mg BID PO Last administered on 01/04/17 23:45; Admin Dose 64.8 MG; Start 01/04/17 at 21:00; Status Future Hold Topiramate (Topamax) 200 mg BID PO ; Start 01/05/17 at 21:00; Status Future Hold Miscellaneous Information 1 ea NOTE XX ; Start 01/04/17 at 19:30 Glucose (Glutose) 15 gm Q15M PRN PO DECREASED GLUCOSE; Start 01/04/17 at 19:30 Glucose (Glutose) 22.5 gm Q15M PRN PO DECREASED GLUCOSE; Start 01/04/17 at 19:30 Dextrose (D50w Syringe) 25 ml Q15M PRN IV DECREASED GLUCOSE Last administered on 01/08/17 05:36; Admin Dose 25 ML; Start 01/04/17 at 19:30 Dextrose (D50w Syringe) 50 ml Q15M PRN IV DECREASED GLUCOSE; Start 01/04/17 at 19:30 Glucagon (Glucagen) 1 mg Q15M PRN IM DECREASED GLUCOSE; Start 01/04/17 at 19:30 Glucose (Glutose) 15 gm Q15M PRN BUCCAL DECREASED GLUCOSE; Start 01/04/17 at 19: 30 Phenytoin (Dilantin Susp Cup) 100 mg TID PO Last administered on 01/04/17 23:44 ; Admin Dose 100 MG; Start 01/04/17 at 21:50; Status Future Hold Clonazepam 0.5 mg 0.5 mg Q8H PO Last administered on 01/04/17 23:45; Admin Dose 0.5 MG; Start 01/04/17 at 23:00; Status Future Hold Levetiracetam (Keppra 1,000mg/ 100ml (Pmx)) 100 ml @ 400 mls/hr Q12 IVPB Last administered on 01/25/17 09:39; Admin Dose 400 MLS/HR; Start 01/05/17 at 11:30 Acetaminophen 650 mg 650 mg Q4H PRN NGT PAIN AND OR ELEVATED TEMP Last administered on 01/24/17 16:38; Admin Dose 650 MG; Start 01/06/17 at 04:30 Acetaminophen (Ofirmev 1000mg/ 100ml Iv) 100 ml @ 400 mls/hr Q6H PRN IVPB FEVER Last administered on 01/20/17 00:55; Admin Dose 400 MLS/HR; Start at 06:30 IV Flush (NS 10 ml) 10 ml PRN PRN IV IV PROTOCOL; Start 01/10/17 at 11:30 Amiodarone HCl (Cordarone) 200 mg BID GTB Last administered on 01/25/17 08:32 ; Admin Dose 200 MG; Start 01/11/17 at 12:00 Epoetin Mina (Epogen (Esrd)) 10,000 units MoWeFr@17 SC Last administered on 17:34; Admin Dose 10,000 UNITS; Start 01/13/17 at 17:00 Metoprolol Tartrate (Lopressor) 25 mg BID PO Last administered on 01/25/17 08: 33; Admin Dose 25 MG; Start 01/15/17 at 15:00 Al Hydrox/Mg Hydrox/ Simethicone 30 ml 30 ml Q4 GTB Last administered on 08:32; Admin Dose 30 ML; Start 01/15/17 at 17:00 Caspofungin 50 mg/ Sodium Chloride 250 ml @ 250 mls/hr Q24H IVPB Last administered on 01/24/17 15:01; Admin Dose 250 MLS/HR; Start 01/17/17 at 14:30 Dextrose 1,000 ml @ 75 mls/hr [id number] IV Last administered on 01/25/17 07:00 ; Admin Dose 50 MLS/HR; Start 01/18/17 at 08:30 Metronidazole (Flagyl 500 Mg (Pmx)) 100 ml @ 100 mls/hr Q8 IVPB Last administered on 01/25/17 05:41; Admin Dose 100 MLS/HR; Start 01/20/17 at 14:00 Pantoprazole 40 mg 40 mg DAILY@06 PO Last administered on 01/25/17 05:40; Admin Dose 40 MG; Start 01/22/17 at 06:00 Cefepime HCl (Maxipime 1gm/50 ml (Pmx)) 50 ml @ 100 mls/hr Q24H IVPB Last administered on 01/24/17 13:51; Admin Dose 100 MLS/HR; Start 01/24/17 at 13:30 Assessment/Plan Chief Complaint/Hosp Course IMP: 1. Severe gallstone pancreatitis with septic shock, now slowly improving. Severe pancreatitis present on CT abdomen. Drop in hemoglobin. Questionable GI bleed. 2. Metabolic acidosis secondary to above and ARF 3. Renal failure likely ATN now requiring hemodialysis 4. 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 Status post thoracentesis right lung. Ongoing pulmonary edema and atelectasis on chest x-ray although radiographically improved. 5. History of seizure disorder RECS: 1. Hemodialysis today per nephrology, improved renal function noted. Discussed with nephrology may soon no longer require hemodialysis. 2. Continue mechanical ventilation, status post tracheostomy continue trach site care, ventilator weaning once patient is more stable we will attempt CPAP weaning trial if remains stable 3. Broad-spectrum antibiotic coverage will discuss with infectious diseases 4. Continue tube feeding. 5. GI recommendations. Continue supportive care. 6. Continue DVT and GI prophylaxis 7. Monitor H&H 35 min cc time Transfer to telemetry. [place] evaluation. Problems: AMPARO VALERIO MD, [facility] Jan 25, 2017 10:40
--- NOTE | 2017-01-25 11:51 | CONS ---
DATE OF ADMISSION: 01/04/2017 DATE OF CONSULTATION: 01/01/2017 REASON FOR CONSULTATION: Antibiotic management. HISTORY OF THE PRESENT ILLNESS: Sakina Pereira is a 61-year- old Ukrainian-[place] female who was admitted with severe abdominal pain. She was somewhat confused on admission. She has a history of seizures in the past. Her assessment was severe pancreatitis associated with biliary ductal dilatation without gallstones. Severe systemic inflammatory response syndrome, secondary to lactic acidosis and systemic shock. Adjacent focal small bowel ileus. Previous seizure disorders, probably UTI, multiple electrolyte abnormalities including hypokalemia, hypocalcemia and metabolic acidosis. She had acute transaminitis likely secondary to severe pancreatitis and acute renal failure, rule out chronic renal disease. The patient has been hospitalized for a week, she has an ET-tube and an OG-tube, a Matias catheter and she just had a Gael catheter placed in the groin for dialysis in order to remove fluid from her lung. She had a PICC line inserted on 01/10/2017. An abdominal pelvic CT scan on 01/04/2017 showed prominent pancreas with marked peripancreatic inflammatory changes, associated free fluid, tracking into the left pericolic gutter into the pelvis, most consistent with acute pancreatitis. Duodenitis could also potentially have this appearance, but is felt to be far less likely. Moderate intrahepatic ductal dilatation, marked extrahepatic ductal dilatation to the level of the distal common bile duct. No radiopaque gallstone is identified. Recommend MRCP versus ERCP as clinically indicated. Microbiology blood cultures and urine cultures are negative. Normal respiratory joanne. She initially grew out E. coli from her urine which was sensitive to everything, and also coagulase negative Staph one bottle, which also was sensitive to Cefazolin and Oxacillin. Currently, she has stable patchy infiltrates throughout both lungs, combined with small to moderate pleural effusions. The CT scan of the abdomen and pelvis showed normal gallbladder. Currently the patient is on vancomycin and Zosyn. Her white count is 20.5. She is now on TPN. PAST MEDICAL HISTORY: As outlined. PAST SURGICAL HISTORY: As outlined. SOCIAL HISTORY: She does not smoke, drink or abuse drugs. ALLERGIES: NONE TO PENICILLIN, SULFA OR FOOD. FAMILY HISTORY: Noncontributory. MEDICATIONS: Per chart. REVIEW OF SYSTEMS: Noncontributory. PHYSICAL EXAMINATION: GENERAL: The patient is an acutely ill female who is intubated on a respirator. SKIN: Without generalized rash. HEENT: She has an ET-tube and OG-tube. NECK: Supple. Lymph nodes not palpable. HEART: Without murmur or gallop. LUNGS: Decreased breath sounds at the bases. ABDOMEN: Soft, obese and nontender. Without organosplenomegaly or mass. EXTREMITIES: Without cyanosis, clubbing or edema. She is somewhat edematous. Non-pitting edema. RECTAL: Exam is deferred. GENITALIA: Exam is deferred. NEUROLOGIC: She is sedated presently. IMPRESSION AND PLAN: The patient has pancreatitis, she also has pneumonitis. Will continue patient on her current therapy. White count is noted as 20.5. She has right greater than left pleural effusion. I will dictate my findings to the hospitalist and to the various consultants. As noted, the patient has severe pancreatitis as well a septic shock. Will continue on current therapy. Dictated By: Gui Cazares MD JD/gigi/juan ramon /Document#: [id number]
--- NOTE | 2017-01-25 11:56 | PN ---
Date/Time of Note Date/Time of Note DATE: 01/25/17 TIME: 11:56 Assessment/Plan Lines/Catheters IV Catheter Type (from Nrsg): PICC Line Matias in Place (from Nrsg): Yes Assessment/Plan Chief Complaint/Hosp Course This is a 61-year-old female who was admitted because of pneumonia was found for progressively worsening renal failure. SP tracheostomy Trach site clean We will continue vent support Trach care Pulmonary toilet Problems: Subjective 24 Hr Interval Summary Constitutional: improved Pain Control: mild Exam/Review of Systems Vital Signs Vitals Vital Signs Date Time Temp Pulse Resp B/P Pulse Ox O2 Delivery O2 Flow Rate FiO2 01/25/17 11:00 92 27 120/91 95 Mechanical Ventilator 01/25/17 08:00 98.6 01/25/17 08:00 30 Intake and Output 01/24/17 01/24/17 01/25/17 15:00 23:00 07:00 Intake Total 1700 ml 1580 ml 1490 ml Output Total 1720 ml 1505 ml 1570 ml Balance -20 ml 75 ml -80 ml Exam Eyes: EOMI, nl conjunctiva, nl lids, nl sclera ENMT: mucosa pink and moist, nl external ears & nose, nl lips & teeth, nl nasal mucosa & septum Neck: non-tender, supple Respiratory: clear to auscultation, normal air movement Cardiovascular: nl pulses, regular rate and rhythm Gastrointestinal: nl liver, spleen, non-tender, soft Results Result Diagram: 01/25/17 0415 01/25/17 0415 SAM GUTIERREZ MD Jan 25, 2017 11:56
--- NOTE | 2017-01-25 11:58 | PN ---
DATE: 01/13/2017 SUBJECTIVE DATA: The patient is currently intubated. The patient underwent ERCP and removal of a common gallbladder stone and placement of a CBD stent 2 days ago. OBJECTIVE DATA: GENERAL: Patient is intubated. VITAL SIGNS: Blood pressure 113/75, pulse is 110. ABDOMEN: Soft. Nasogastric tube showing material. LABORATORY AND DIAGNOSTIC DATA: Hemoglobin is 9.3 same as yesterday but it was 10.7 on the ; white blood cell count went up to 22,000, yesterday it was 15,500. Chemistry from yesterday: Alk phos is 188, total bili is 0.3. ASSESSMENT: 1. Status post ERCP, sphincterotomy and gallstone pancreatitis, cholangitis, respiratory failure. 2. Sinus tachycardia. 3. Pleural effusion. PLAN: Recommend nasogastric irrigation of the stomach with saline until it is clear and monitor the hemoglobin periodically, if less than 8 give 1 unit of packed cells. Dictated By: Chaitanya Green MD /gigi/deepak /Document#: [id number] CC: Chaitanya Green MD; Dr. Garnett; Primary doctor on case;*EndCC*
--- NOTE | 2017-01-25 12:04 | CONS ---
DATE OF ADMISSION: 01/04/2017 DATE OF CONSULTATION: 01/14/2017 Progress Note SUBJECTIVE DATA: Patient is intubated. She cannot give any history. OBJECTIVE DATA: Upon discussion with the nursing staff, blood pressure is around 120/76. Pulse is around 109. The orogastric tube shows evidence of greenish liquid drainage. LABORATORY DATA: The patient had a thoracentesis done yesterday which revealed 300 mL of bloody pleural fluid. Her hemoglobin dropped to 7.6 today as opposed to 8.3 earlier on. The stool has been brown in color. WBC count early this morning is 26,400. CLINICAL IMPRESSION: Currently she has anemia. No active gastrointestinal (GI) bleeding is noted. She has green drainage from the orogastric tube, brown stools. Some pleural fluid yesterday showed 300 mL of bloody fluid. Currently the source of anemia or cause for anemia is not known. No active gastrointestinal (GI) bleeding. I am not sure if she has bleeding into the right thoracic cavity or left thoracic cavity. PLAN: Recommend transfuse 2 units of packed cells. Continue Protonix drip as well as octreotide drip. Follow the hemoglobin and transfuse as needed. Dictated By: Chaitanya Green MD /gigi/jones /Document#: [id number]
[2017-01-25] MEDS: CEFEPIME 1GM/50 ML (PMX) 50 ML IVPB SCH (12:44)
[2017-01-25] MEDS: morphine 2 MG INJ IV PRN (12:50)
--- NOTE | 2017-01-25 14:37 | CONS ---
Date/Time of Note Date/Time of Note DATE: 01/25/17 TIME: 14:25 Assessment/Plan Assessment/Plan Chief Complaint/Hosp Course ID PROGRESS NOTE TOTAL ABX DAY # 20=> Cefepime #1 + FLAGYL #5 + CANCIDAS #10 s/p VANCO IV #12+ MERREM#12 => DC'd 01/24 24H INTERVAL SUMMARY/HOSPITAL COURSE * Anemia 2/2 acute bleeding per GI no evidence of active GI source s/p EGD w/ PEG yesterday * s/p Thora w/ sanguinous pleural fluid obtained ? Currently the source of anemia or cause for anemia is not known - bleeding into thoracic cavity? * OGT greenish bile output, not bloody * No fevers, WBC downtrend,s/p infected HD catheter removal tip (+)Yeast * Noncommunicative on the Vent - Awake, alert, responsive * CXR 01/24/17 IMPRESSION:1. Interval removal of endotracheal tube and nasogastric tube.2. Interval placement of tracheostomy tube.3. Stable hazy opacity at the right lung base, suggestive of a small partially layering right pleural effusion. Underlying atelectasis and/or consolidation cannot be excluded. PHYSICAL EXAMINATION: GENERAL: No fevers, VSS, awake on Vent via Trach HEENT: Unremarkable, anicteric NECK: Trach(+) no bleeding, secure to Vent CHEST: Rise symmetrical w/course BS over vent tubing ABDOMEN: Soft, New PEG w/binder EXTREMITIES: Warm, moves extremities ID ASSESSMENT: 61 yo F admit with: 1. Severe sepsis with ongoing fevers and leukocytosis status post shock = RESOLVING * Femoral Gael discontinued 01/22/17 W/tip(+) yeast * s/p 01/04/17 Coag negative staph bacteremia on admission, likely contaminant 2. Severe, acute pancreatitis, possibly developing pseudocyst 3. Choledocholithiasis, status post ERCP 01/12/17 with removal of the stone and stent placement 4. Anemia with no evidence of active GIB * FOBT (+) 01/24 & Gastric fluid (+)Occult blood 01/14 * s/p Thora 01/13 = sanguinous pleural fluid obtained ? 5. Acute respiratory failure-> Failed weaning, s/p Tracheostomy placement * s/p PEG 01/24/17 6. HCAP * => CXR 01/24/17 Stable hazy opacity at the right lung base, suggestive of a small partially layering right pleural effusion. * Underlying atelectasis and/or consolidation cannot be excluded. * s/p THORA 01/13 -> sanguinous pleural fluid ? 7. Acute renal failure requiring hemodialysis 8. Fungal urinary tract infection * s/p GNR UTI (E.Coli) 9. Diarrhea, rule out C. difficile (-) MRSA Nares screen INVASIVES: PICC. TRACH, PEG, FC ABX ALLERGY: KNDA CURRENT ABX: TOTAL ABX DAY # 20=> Cefepime #1 + FLAGYL #5 + CANCIDAS #10 s/p VANCO IV #12+ MERREM#12 => DC'd 01/24 ID PLAN: * Patient has improved, no longer septic with orders for TELE * ABX tapered yesterday => continue to monitor how she tolerates * Continue Cefepime * Continue Flagyl * Continue Cancidas per risk of disseminated fungemia w/retained PICC, FC . . Problems: Consultation Date/Type/Reason Admit Date/Time Jan 04, 2017 at 19:10 Initial Consult Date 01/11/17 Type of Consultation: ID Referring Provider: YING CASTAÑEDA Exam/Review of Systems Vital Signs Vitals Vital Signs Date Time Temp Pulse Resp B/P Pulse Ox O2 Delivery O2 Flow Rate FiO2 01/25/17 13:30 94 26 136/82 94 Mechanical Ventilator 01/25/17 12:00 98.0 01/25/17 11:50 30 Intake and Output 01/24/17 01/24/17 01/25/17 15:00 23:00 07:00 Intake Total 1700 ml 1580 ml 1490 ml Output Total 1720 ml 1505 ml 1570 ml Balance -20 ml 75 ml -80 ml Results Result Diagram: 01/25/17 0415 01/25/17 0415 Results 24 hrs Laboratory Tests Test 01/24/17 14:50 01/25/17 04:15 01/25/17 05:08 Stool Occult Blood POSITIVE White Blood Count 13.4 H Red Blood Count 3.10 #L Hemoglobin 9.0 #L Hematocrit 28.3 #L Mean Corpuscular Volume 91.3 Mean Corpuscular Hemoglobin 29.0 Mean Corpuscular Hemoglobin Concent 31.8 L Red Cell Distribution Width 16.1 H Platelet Count 597 H Mean Platelet Volume 9.8 Neutrophils % 80.9 H Lymphocytes % 6.7 L Monocytes % 7.6 Eosinophils % 0.3 Basophils % 0.6 Nucleated Red Blood Cells % 0.0 Neutrophils # 10.8 H Lymphocytes # 0.9 Monocytes # 1.0 H Eosinophils # 0.0 Basophils # 0.1 Nucleated Red Blood Cells # 0.0 Sodium Level 147 H Potassium Level 4.1 Chloride Level 111 H Carbon Dioxide Level 23 Anion Gap 17 H Blood Urea Nitrogen 45 H Creatinine 1.67 H Glucose Level 109 Calcium Level 7.7 L Phosphorus Level 3.3 Magnesium Level 1.8 Lab Scanned Report BLOOD TRANSFUSION Medications Medications Current Medications Ondansetron HCl (Zofran Inj) 4 mg Q6H PRN IV NAUSEA AND/OR VOMITING; Start 01/04 at 19:30 Acetaminophen/ Hydrocodone Bitart ([place] (5/325)) 1 tab Q6H PRN PO MODERATE PAIN LEVEL 4-6; Start 01/04/17 at 19:30 Morphine Sulfate (morphine) 2 mg Q4H PRN IV SEVERE PAIN LEVEL 7-10 Last administered on 01/25/17 12:50; Admin Dose 2 MG; Start 01/04/17 at 19:30 Docusate Sodium (Colace) 100 mg Q12H PRN PO CONSTIPATION; Start 01/04/17 at 19: 30 Magnesium Hydroxide (Milk Of Mag) 30 ml DAILY PRN PO CONSTIPATION; Start at 19:30 Sodium Biphosphate/ Sodium Phosphate (Fleet Enema) 133 ml DAILY PRN [place] CONSTIPATION; Start 01/04/17 at 19:30 Phenobarbital (Luminal) 64.8 mg BID PO Last administered on 01/04/17 23:45; Admin Dose 64.8 MG; Start 01/04/17 at 21:00; Status Future Hold Topiramate (Topamax) 200 mg BID PO ; Start 01/05/17 at 21:00; Status Future Hold Miscellaneous Information 1 ea NOTE XX ; Start 01/04/17 at 19:30 Glucose (Glutose) 15 gm Q15M PRN PO DECREASED GLUCOSE; Start 01/04/17 at 19:30 Glucose (Glutose) 22.5 gm Q15M PRN PO DECREASED GLUCOSE; Start 01/04/17 at 19:30 Dextrose (D50w Syringe) 25 ml Q15M PRN IV DECREASED GLUCOSE Last administered on 01/08/17 05:36; Admin Dose 25 ML; Start 01/04/17 at 19:30 Dextrose (D50w Syringe) 50 ml Q15M PRN IV DECREASED GLUCOSE; Start 01/04/17 at 19:30 Glucagon (Glucagen) 1 mg Q15M PRN IM DECREASED GLUCOSE; Start 01/04/17 at 19:30 Glucose (Glutose) 15 gm Q15M PRN BUCCAL DECREASED GLUCOSE; Start 01/04/17 at 19: 30 Phenytoin (Dilantin Susp Cup) 100 mg TID PO Last administered on 01/04/17 23:44 ; Admin Dose 100 MG; Start 01/04/17 at 21:50; Status Future Hold Clonazepam 0.5 mg 0.5 mg Q8H PO Last administered on 01/04/17 23:45; Admin Dose 0.5 MG; Start 01/04/17 at 23:00; Status Future Hold Levetiracetam (Keppra 1,000mg/ 100ml (Pmx)) 100 ml @ 400 mls/hr Q12 IVPB Last administered on 01/25/17 09:39; Admin Dose 400 MLS/HR; Start 01/05/17 at 11:30 Acetaminophen 650 mg 650 mg Q4H PRN NGT PAIN AND OR ELEVATED TEMP Last administered on 01/24/17 16:38; Admin Dose 650 MG; Start 01/06/17 at 04:30 Acetaminophen (Ofirmev 1000mg/ 100ml Iv) 100 ml @ 400 mls/hr Q6H PRN IVPB FEVER Last administered on 01/20/17 00:55; Admin Dose 400 MLS/HR; Start at 06:30 IV Flush (NS 10 ml) 10 ml PRN PRN IV IV PROTOCOL; Start 01/10/17 at 11:30 Amiodarone HCl (Cordarone) 200 mg BID GTB Last administered on 01/25/17 08:32 ; Admin Dose 200 MG; Start 01/11/17 at 12:00 Epoetin Mina (Epogen (Esrd)) 10,000 units MoWeFr@17 SC Last administered on 17:34; Admin Dose 10,000 UNITS; Start 01/13/17 at 17:00 Metoprolol Tartrate (Lopressor) 25 mg BID PO Last administered on 01/25/17 08: 33; Admin Dose 25 MG; Start 01/15/17 at 15:00 Al Hydrox/Mg Hydrox/ Simethicone 30 ml 30 ml Q4 GTB Last administered on 12:45; Admin Dose 30 ML; Start 01/15/17 at 17:00 Caspofungin 50 mg/ Sodium Chloride 250 ml @ 250 mls/hr Q24H IVPB Last administered on 01/24/17 15:01; Admin Dose 250 MLS/HR; Start 01/17/17 at 14:30 Dextrose 1,000 ml @ 75 mls/hr [id number] IV Last administered on 01/25/17 12:56 ; Admin Dose 75 MLS/HR; Start 01/18/17 at 08:30 Metronidazole (Flagyl 500 Mg (Pmx)) 100 ml @ 100 mls/hr Q8 IVPB Last administered on 01/25/17 13:58; Admin Dose 100 MLS/HR; Start 01/20/17 at 14:00 Pantoprazole 40 mg 40 mg DAILY@06 PO Last administered on 01/25/17 05:40; Admin Dose 40 MG; Start 01/22/17 at 06:00 Cefepime HCl (Maxipime 1gm/50 ml (Pmx)) 50 ml @ 100 mls/hr Q24H IVPB Last administered on 01/25/17 12:44; Admin Dose 100 MLS/HR; Start 01/24/17 at 13:30 GAYATRI SALDIVAR NP Jan 25, 2017 14:35
[2017-01-25] MEDS: CASPOFUNGIN 50 MG in SOD CHLORIDE 0.9% 250 ML IVPB SCH (15:08)
--- NOTE | 2017-01-25 16:27 | PN ---
Date/Time of Note Date/Time of Note DATE: 01/25/17 TIME: 16:23 Assessment/Plan VTE Prophylaxis VTE Prophylaxis Intervention: heparin Lines/Catheters IV Catheter Type (from Nrsg): PICC Line Central line still needed: Yes Urinary Cath still in place: Yes Reason Cath still needed: urinary retention, other (indicate) Assessment/Plan Chief Complaint/Hosp Course 61 yo female with septic shock 2/2 gall stone pancreatitis. s/p ERCP w stent. LEONOR requiring HD temporarily. Respiratory failure now s/p trach and PEG and remains on mechanical sedation pending improvement in ventilatory status. PULM: Respiratory Failure: - Patient remains on mechanical ventilation via trach. AC 450/30/5. Saturating 99% - Vent weaning as tolerated ID: Septic shock of likely urinary source - Continue cefepime, flagyl, and caspo per ID consult RENAL: LEONOR: - renal functioning is improving off of dialysis -Continue to monitor creatinine and urine output HYPERNATREMIA: - Continue FW as needed to correct GI: Gall stone pancreatitis: - s/p ERCP and stent - s/p G tube, continue tube feeds HEME: Anemia of inflammation: - S/p 2 units PRBCs yesterday, H/H stable CV: Paroxysmal Atrial Fibrillation: - Continue amiodarone for A Fib, currently in SR - Holding AC given recent GI bleed Discharge planning pending ability to wean from vent PT/OT Problems: Subjective 24 Hr Interval Summary Free Text/Dictation No acute events Patient apperas comfortable, alert and interactive on vent via trach Shakes head no to question of if she's in pain Subjective hx not possible: pt non-verbal Exam/Review of Systems Vital Signs Vitals Vital Signs Date Time Temp Pulse Resp B/P Pulse Ox O2 Delivery O2 Flow Rate FiO2 01/25/17 15:00 100 26 128/84 97 Mechanical Ventilator 01/25/17 12:00 98.0 01/25/17 11:50 30 Intake and Output 01/24/17 01/24/17 01/25/17 15:00 23:00 07:00 Intake Total 1700 ml 1580 ml 1490 ml Output Total 1720 ml 1505 ml 1570 ml Balance -20 ml 75 ml -80 ml Results Result Diagram: 01/25/17 0415 01/25/17 0415 Results 24 hrs Laboratory Tests Test 01/25/17 04:15 01/25/17 05:08 White Blood Count 13.4 H Red Blood Count 3.10 #L Hemoglobin 9.0 #L Hematocrit 28.3 #L Mean Corpuscular Volume 91.3 Mean Corpuscular Hemoglobin 29.0 Mean Corpuscular Hemoglobin Concent 31.8 L Red Cell Distribution Width 16.1 H Platelet Count 597 H Mean Platelet Volume 9.8 Neutrophils % 80.9 H Lymphocytes % 6.7 L Monocytes % 7.6 Eosinophils % 0.3 Basophils % 0.6 Nucleated Red Blood Cells % 0.0 Neutrophils # 10.8 H Lymphocytes # 0.9 Monocytes # 1.0 H Eosinophils # 0.0 Basophils # 0.1 Nucleated Red Blood Cells # 0.0 Sodium Level 147 H Potassium Level 4.1 Chloride Level 111 H Carbon Dioxide Level 23 Anion Gap 17 H Blood Urea Nitrogen 45 H Creatinine 1.67 H Glucose Level 109 Calcium Level 7.7 L Phosphorus Level 3.3 Magnesium Level 1.8 Lab Scanned Report BLOOD TRANSFUSION Medications Medications Current Medications Ondansetron HCl (Zofran Inj) 4 mg Q6H PRN IV NAUSEA AND/OR VOMITING; Start 01/04 at 19:30 Acetaminophen/ Hydrocodone Bitart ([place] (5/325)) 1 tab Q6H PRN PO MODERATE PAIN LEVEL 4-6; Start 01/04/17 at 19:30 Morphine Sulfate (morphine) 2 mg Q4H PRN IV SEVERE PAIN LEVEL 7-10 Last administered on 01/25/17 12:50; Admin Dose 2 MG; Start 01/04/17 at 19:30 Docusate Sodium (Colace) 100 mg Q12H PRN PO CONSTIPATION; Start 01/04/17 at 19: 30 Magnesium Hydroxide (Milk Of Mag) 30 ml DAILY PRN PO CONSTIPATION; Start at 19:30 Sodium Biphosphate/ Sodium Phosphate (Fleet Enema) 133 ml DAILY PRN [place] CONSTIPATION; Start 01/04/17 at 19:30 Phenobarbital (Luminal) 64.8 mg BID PO Last administered on 01/04/17 23:45; Admin Dose 64.8 MG; Start 01/04/17 at 21:00; Status Future Hold Topiramate (Topamax) 200 mg BID PO ; Start 01/05/17 at 21:00; Status Future Hold Miscellaneous Information 1 ea NOTE XX ; Start 01/04/17 at 19:30 Glucose (Glutose) 15 gm Q15M PRN PO DECREASED GLUCOSE; Start 01/04/17 at 19:30 Glucose (Glutose) 22.5 gm Q15M PRN PO DECREASED GLUCOSE; Start 01/04/17 at 19:30 Dextrose (D50w Syringe) 25 ml Q15M PRN IV DECREASED GLUCOSE Last administered on 01/08/17 05:36; Admin Dose 25 ML; Start 01/04/17 at 19:30 Dextrose (D50w Syringe) 50 ml Q15M PRN IV DECREASED GLUCOSE; Start 01/04/17 at 19:30 Glucagon (Glucagen) 1 mg Q15M PRN IM DECREASED GLUCOSE; Start 01/04/17 at 19:30 Glucose (Glutose) 15 gm Q15M PRN BUCCAL DECREASED GLUCOSE; Start 01/04/17 at 19: 30 Phenytoin (Dilantin Susp Cup) 100 mg TID PO Last administered on 01/04/17 23:44 ; Admin Dose 100 MG; Start 01/04/17 at 21:50; Status Future Hold Clonazepam 0.5 mg 0.5 mg Q8H PO Last administered on 01/04/17 23:45; Admin Dose 0.5 MG; Start 01/04/17 at 23:00; Status Future Hold Levetiracetam (Keppra 1,000mg/ 100ml (Pmx)) 100 ml @ 400 mls/hr Q12 IVPB Last administered on 01/25/17 09:39; Admin Dose 400 MLS/HR; Start 01/05/17 at 11:30 Acetaminophen 650 mg 650 mg Q4H PRN NGT PAIN AND OR ELEVATED TEMP Last administered on 01/24/17 16:38; Admin Dose 650 MG; Start 01/06/17 at 04:30 Acetaminophen (Ofirmev 1000mg/ 100ml Iv) 100 ml @ 400 mls/hr Q6H PRN IVPB FEVER Last administered on 01/20/17 00:55; Admin Dose 400 MLS/HR; Start at 06:30 IV Flush (NS 10 ml) 10 ml PRN PRN IV IV PROTOCOL; Start 01/10/17 at 11:30 Amiodarone HCl (Cordarone) 200 mg BID GTB Last administered on 01/25/17 08:32 ; Admin Dose 200 MG; Start 01/11/17 at 12:00 Epoetin Mina (Epogen (Esrd)) 10,000 units MoWeFr@17 SC Last administered on 17:34; Admin Dose 10,000 UNITS; Start 01/13/17 at 17:00 Metoprolol Tartrate (Lopressor) 25 mg BID PO Last administered on 01/25/17 08: 33; Admin Dose 25 MG; Start 01/15/17 at 15:00 Al Hydrox/Mg Hydrox/ Simethicone 30 ml 30 ml Q4 GTB Last administered on 12:45; Admin Dose 30 ML; Start 01/15/17 at 17:00 Caspofungin 50 mg/ Sodium Chloride 250 ml @ 250 mls/hr Q24H IVPB Last administered on 01/25/17 15:08; Admin Dose 250 MLS/HR; Start 01/17/17 at 14:30 Dextrose 1,000 ml @ 75 mls/hr [id number] IV Last administered on 01/25/17 12:56 ; Admin Dose 75 MLS/HR; Start 01/18/17 at 08:30 Metronidazole (Flagyl 500 Mg (Pmx)) 100 ml @ 100 mls/hr Q8 IVPB Last administered on 01/25/17 13:58; Admin Dose 100 MLS/HR; Start 01/20/17 at 14:00 Pantoprazole 40 mg 40 mg DAILY@06 PO Last administered on 01/25/17 05:40; Admin Dose 40 MG; Start 01/22/17 at 06:00 Cefepime HCl (Maxipime 1gm/50 ml (Pmx)) 50 ml @ 100 mls/hr Q24H IVPB Last administered on 01/25/17 12:44; Admin Dose 100 MLS/HR; Start 01/24/17 at 13:30 CRISTIANE CHRISTINA MD Jan 25, 2017 16:27
--- NOTE | 2017-01-25 16:36 | CONS ---
Date/Time of Note Date/Time of Note DATE: 01/25/17 TIME: 16:35 Assessment/Plan Assessment/Plan Additional Assessment/Plan Paroxysmal atrial fibrillation, currently sinus rhythm Severe sepsis Acute pancreatitis status post ERCP Preserved ejection fraction Respiratory failure, vent dependent, status post tracheostomy Acute kidney injury now on hemodialysis Seizure disorder Psychiatric disorder Acute blood loss anemia GI bleed status post clipping - Would continue amiodarone to help maintain in sinus rhythm. No anticoagulation for atrial fibrillation given severe anemia and GI bleed. Fluid management as per our nephrology colleagues. Ideally, maintain potassium above 4.0 and magnesium above 2.0 to decrease arrhythmias. Will supplement magnesium. Consultation Date/Type/Reason Admit Date/Time Jan 04, 2017 at 19:10 Initial Consult Date 01/05/17 Type of Consultation: cv Referring Provider: YING CASTAÑEDA 24 HR Interval Summary Free Text/Dictation Patient seen and examined, no new cardiac issues as per nursing staff Exam/Review of Systems Vital Signs Vitals Vital Signs Date Time Temp Pulse Resp B/P Pulse Ox O2 Delivery O2 Flow Rate FiO2 01/25/17 15:00 100 26 128/84 97 Mechanical Ventilator 01/25/17 12:00 98.0 01/25/17 11:50 30 Intake and Output 01/24/17 01/24/17 01/25/17 14:59 22:59 06:59 Intake Total 1400 ml 2030 ml 1490 ml Output Total 1445 ml 1605 ml 1545 ml Balance -45 ml 425 ml -55 ml Exam No apparent distress Constitutional: alert Head: normocephalic Neck: other (Tracheostomy) Respiratory: other (Coarse breath sounds bilaterally, no wheezing) Cardiovascular: other (S1-S2 heard), regular rate and rhythm Gastrointestinal: bowel sounds, non-tender, soft Extremities: edema Results Result Diagram: 01/25/17 0415 01/25/17 0415 Results 24 hrs Laboratory Tests Test 01/25/17 04:15 01/25/17 05:08 White Blood Count 13.4 H Red Blood Count 3.10 #L Hemoglobin 9.0 #L Hematocrit 28.3 #L Mean Corpuscular Volume 91.3 Mean Corpuscular Hemoglobin 29.0 Mean Corpuscular Hemoglobin Concent 31.8 L Red Cell Distribution Width 16.1 H Platelet Count 597 H Mean Platelet Volume 9.8 Neutrophils % 80.9 H Lymphocytes % 6.7 L Monocytes % 7.6 Eosinophils % 0.3 Basophils % 0.6 Nucleated Red Blood Cells % 0.0 Neutrophils # 10.8 H Lymphocytes # 0.9 Monocytes # 1.0 H Eosinophils # 0.0 Basophils # 0.1 Nucleated Red Blood Cells # 0.0 Sodium Level 147 H Potassium Level 4.1 Chloride Level 111 H Carbon Dioxide Level 23 Anion Gap 17 H Blood Urea Nitrogen 45 H Creatinine 1.67 H Glucose Level 109 Calcium Level 7.7 L Phosphorus Level 3.3 Magnesium Level 1.8 Lab Scanned Report BLOOD TRANSFUSION Medications Medications Current Medications Ondansetron HCl (Zofran Inj) 4 mg Q6H PRN IV NAUSEA AND/OR VOMITING; Start 01/04 at 19:30 Acetaminophen/ Hydrocodone Bitart ([place] (5/325)) 1 tab Q6H PRN PO MODERATE PAIN LEVEL 4-6; Start 01/04/17 at 19:30 Morphine Sulfate (morphine) 2 mg Q4H PRN IV SEVERE PAIN LEVEL 7-10 Last administered on 01/25/17 12:50; Admin Dose 2 MG; Start 01/04/17 at 19:30 Docusate Sodium (Colace) 100 mg Q12H PRN PO CONSTIPATION; Start 01/04/17 at 19: 30 Magnesium Hydroxide (Milk Of Mag) 30 ml DAILY PRN PO CONSTIPATION; Start at 19:30 Sodium Biphosphate/ Sodium Phosphate (Fleet Enema) 133 ml DAILY PRN [place] CONSTIPATION; Start 01/04/17 at 19:30 Phenobarbital (Luminal) 64.8 mg BID PO Last administered on 01/04/17 23:45; Admin Dose 64.8 MG; Start 01/04/17 at 21:00; Status Future Hold Topiramate (Topamax) 200 mg BID PO ; Start 01/05/17 at 21:00; Status Future Hold Miscellaneous Information 1 ea NOTE XX ; Start 01/04/17 at 19:30 Glucose (Glutose) 15 gm Q15M PRN PO DECREASED GLUCOSE; Start 01/04/17 at 19:30 Glucose (Glutose) 22.5 gm Q15M PRN PO DECREASED GLUCOSE; Start 01/04/17 at 19:30 Dextrose (D50w Syringe) 25 ml Q15M PRN IV DECREASED GLUCOSE Last administered on 01/08/17 05:36; Admin Dose 25 ML; Start 01/04/17 at 19:30 Dextrose (D50w Syringe) 50 ml Q15M PRN IV DECREASED GLUCOSE; Start 01/04/17 at 19:30 Glucagon (Glucagen) 1 mg Q15M PRN IM DECREASED GLUCOSE; Start 01/04/17 at 19:30 Glucose (Glutose) 15 gm Q15M PRN BUCCAL DECREASED GLUCOSE; Start 01/04/17 at 19: 30 Phenytoin (Dilantin Susp Cup) 100 mg TID PO Last administered on 01/04/17 23:44 ; Admin Dose 100 MG; Start 01/04/17 at 21:50; Status Future Hold Clonazepam 0.5 mg 0.5 mg Q8H PO Last administered on 01/04/17 23:45; Admin Dose 0.5 MG; Start 01/04/17 at 23:00; Status Future Hold Levetiracetam (Keppra 1,000mg/ 100ml (Pmx)) 100 ml @ 400 mls/hr Q12 IVPB Last administered on 01/25/17 09:39; Admin Dose 400 MLS/HR; Start 01/05/17 at 11:30 Acetaminophen 650 mg 650 mg Q4H PRN NGT PAIN AND OR ELEVATED TEMP Last administered on 01/24/17 16:38; Admin Dose 650 MG; Start 01/06/17 at 04:30 Acetaminophen (Ofirmev 1000mg/ 100ml Iv) 100 ml @ 400 mls/hr Q6H PRN IVPB FEVER Last administered on 01/20/17 00:55; Admin Dose 400 MLS/HR; Start at 06:30 IV Flush (NS 10 ml) 10 ml PRN PRN IV IV PROTOCOL; Start 01/10/17 at 11:30 Amiodarone HCl (Cordarone) 200 mg BID GTB Last administered on 01/25/17 08:32 ; Admin Dose 200 MG; Start 01/11/17 at 12:00 Epoetin Mina (Epogen (Esrd)) 10,000 units [id number]@17 SC Last administered on 17:34; Admin Dose 10,000 UNITS; Start 01/13/17 at 17:00 Metoprolol Tartrate (Lopressor) 25 mg BID PO Last administered on 01/25/17 08: 33; Admin Dose 25 MG; Start 01/15/17 at 15:00 Al Hydrox/Mg Hydrox/ Simethicone 30 ml 30 ml Q4 GTB Last administered on 12:45; Admin Dose 30 ML; Start 01/15/17 at 17:00 Caspofungin 50 mg/ Sodium Chloride 250 ml @ 250 mls/hr Q24H IVPB Last administered on 01/25/17 15:08; Admin Dose 250 MLS/HR; Start 01/17/17 at 14:30 Dextrose 1,000 ml @ 75 mls/hr [id number] IV Last administered on 01/25/17 12:56 ; Admin Dose 75 MLS/HR; Start 01/18/17 at 08:30 Metronidazole (Flagyl 500 Mg (Pmx)) 100 ml @ 100 mls/hr Q8 IVPB Last administered on 01/25/17 13:58; Admin Dose 100 MLS/HR; Start 01/20/17 at 14:00 Pantoprazole 40 mg 40 mg DAILY@06 PO Last administered on 01/25/17 05:40; Admin Dose 40 MG; Start 01/22/17 at 06:00 Cefepime HCl (Maxipime 1gm/50 ml (Pmx)) 50 ml @ 100 mls/hr Q24H IVPB Last administered on 01/25/17 12:44; Admin Dose 100 MLS/HR; Start 01/24/17 at 13:30 Vlad Leyva DO Jan 25, 2017 16:36
[2017-01-25] MEDS ORDERED: LORAZEPAM 2 MG INJ IV PRN (17:00)
[2017-01-25] MEDS ORDERED: MAGNESIUM SULFATE 1 GM/D5W 100 ML IVPB ONE (17:00)
[2017-01-25] MEDS: EPOETIN 10000 UNITS/1 ML INJ (ESRD) SC SCH (17:19)
[2017-01-26] VITALS (28 sets, daily range): BP systolic 122–165; BP diastolic 73–95; PULSE 92–112; RESP 18–33
[2017-01-26] MEDS: AL HYDROX/MG HYDROX/SIMETH 30 ML CUP GTB SCH ×6 (01:43→21:03)
[2017-01-26] MEDS: DEXTROSE 5% 1,000 ML IV SCH ×6 (02:20→20:58)
[2017-01-26] MEDS: PANTOPRAZOLE (EC) 40 MG TAB PO SCH (05:01)
[2017-01-26] MEDS: metroNIDAZOLE 500 MG/NS (PMX) 100 ML IVPB SCH ×3 (05:02→21:05)
[2017-01-26 07:05] LABS: BASOPHIL # 0.1 10^3/ul (0.0-0.1); BASOPHILS % 0.4 % (0.0-2.0); EOSINOPHILS # 0.1 10^3/ul (0.0-0.5); HEMOGLOBIN 8.7 g/dl (12.0-16.0); LYMPHOCYTES # 1.4 10^3/ul (0.8-2.9); LYMPHOCYTES % 10.1 % (15.0-51.0); MEAN CORPUSCULAR HEMOGLOBIN 29.6 pg (29.0-33.0); MEAN CORPUSCULAR HGB CONC 32.2 g/dl (32.0-37.0); MEAN CORPUSCULAR VOLUME 91.8 fl (82.0-101.0); MEAN PLATELET VOLUME 9.7 fl (7.4-10.4); MONOCYTE # 0.9 10^3/ul (0.3-0.9); MONOCYTES % 6.4 % (0.0-11.0); NEUTROPHIL # 10.5 10^3/ul (1.6-7.5); PLATELET COUNT 597 10^3/UL (140-415); RED BLOOD COUNT 2.94 10^6/ul (4.20-5.40); RED CELL DISTRIBUTION WIDTH 16.4 % (11.5-14.5); WHITE BLOOD COUNT 13.5 10^3/ul (4.8-10.8)
--- NOTE | 2017-01-26 07:40 | CONS ---
Date/Time of Note Date/Time of Note DATE: 01/26/17 TIME: 07:38 Assessment/Plan Assessment/Plan Chief Complaint/Hosp Course Admitted with abdominal pain and evidence of severe pancreatitis in otherwise good health. Problems: Additional Assessment/Plan 1. Acute renal failure expect this will have improved as of today, labs pending. 2. Resolving acute pancreatitis sec to common duct stone. 3. Pulmonary infiltrates are resolving. Consultation Date/Type/Reason Admit Date/Time Jan 04, 2017 at 19:10 Initial Consult Date 01/05/17 Type of Consultation: cv Referring Provider: YING CASTAÑEDA 24 HR Interval Summary Subjective hx not possible: other (tach in place, alert) Exam/Review of Systems Vital Signs Vitals Vital Signs Date Time Temp Pulse Resp B/P Pulse Ox O2 Delivery O2 Flow Rate FiO2 01/26/17 06:09 104 20 149/78 96 Mechanical Ventilator 01/26/17 05:50 30 01/26/17 03:50 98.0 Intake and Output 01/25/17 01/25/17 01/26/17 15:00 23:00 07:00 Intake Total 1115 ml 1090 ml 1150 ml Output Total 1100 ml 500 ml 1700 ml Balance 15 ml 590 ml -550 ml Exam Neck: No jvd Respiratory: clear to auscultation, diminished breath sounds Cardiovascular: regular rate and rhythm Gastrointestinal: soft, tender (slight grimace periumbilical area), No mass, No nl liver, spleen Extremities: No edema Results Result Diagram: 01/26/17 0632 01/25/17 0415 Results 24 hrs Laboratory Tests Test 01/26/17 06:32 White Blood Count 13.5 H Red Blood Count 2.94 L Hemoglobin 8.7 L Hematocrit 27.0 L Mean Corpuscular Volume 91.8 Mean Corpuscular Hemoglobin 29.6 Mean Corpuscular Hemoglobin Concent 32.2 Red Cell Distribution Width 16.4 H Platelet Count 597 H Mean Platelet Volume 9.7 Neutrophils % 78.0 H Lymphocytes % 10.1 L Monocytes % 6.4 Eosinophils % 1.0 Basophils % 0.4 Nucleated Red Blood Cells % 0.0 Neutrophils # 10.5 H Lymphocytes # 1.4 Monocytes # 0.9 Eosinophils # 0.1 Basophils # 0.1 Nucleated Red Blood Cells # 0.0 Medications Medications Current Medications Ondansetron HCl (Zofran Inj) 4 mg Q6H PRN IV NAUSEA AND/OR VOMITING; Start 01/04 at 19:30 Acetaminophen/ Hydrocodone Bitart ([place] (5/325)) 1 tab Q6H PRN PO MODERATE PAIN LEVEL 4-6; Start 01/04/17 at 19:30 Morphine Sulfate (morphine) 2 mg Q4H PRN IV SEVERE PAIN LEVEL 7-10 Last administered on 01/25/17 12:50; Admin Dose 2 MG; Start 01/04/17 at 19:30 Docusate Sodium (Colace) 100 mg Q12H PRN PO CONSTIPATION; Start 01/04/17 at 19: 30 Magnesium Hydroxide (Milk Of Mag) 30 ml DAILY PRN PO CONSTIPATION; Start at 19:30 Sodium Biphosphate/ Sodium Phosphate (Fleet Enema) 133 ml DAILY PRN [place] CONSTIPATION; Start 01/04/17 at 19:30 Phenobarbital (Luminal) 64.8 mg BID PO Last administered on 01/04/17 23:45; Admin Dose 64.8 MG; Start 01/04/17 at 21:00; Status Future Hold Topiramate (Topamax) 200 mg BID PO ; Start 01/05/17 at 21:00; Status Future Hold Miscellaneous Information 1 ea NOTE XX ; Start 01/04/17 at 19:30 Glucose (Glutose) 15 gm Q15M PRN PO DECREASED GLUCOSE; Start 01/04/17 at 19:30 Glucose (Glutose) 22.5 gm Q15M PRN PO DECREASED GLUCOSE; Start 01/04/17 at 19:30 Dextrose (D50w Syringe) 25 ml Q15M PRN IV DECREASED GLUCOSE Last administered on 01/08/17 05:36; Admin Dose 25 ML; Start 01/04/17 at 19:30 Dextrose (D50w Syringe) 50 ml Q15M PRN IV DECREASED GLUCOSE; Start 01/04/17 at 19:30 Glucagon (Glucagen) 1 mg Q15M PRN IM DECREASED GLUCOSE; Start 01/04/17 at 19:30 Glucose (Glutose) 15 gm Q15M PRN BUCCAL DECREASED GLUCOSE; Start 01/04/17 at 19: 30 Phenytoin (Dilantin Susp Cup) 100 mg TID PO Last administered on 01/04/17 23:44 ; Admin Dose 100 MG; Start 01/04/17 at 21:50; Status Future Hold Clonazepam 0.5 mg 0.5 mg Q8H PO Last administered on 01/04/17 23:45; Admin Dose 0.5 MG; Start 01/04/17 at 23:00; Status Future Hold Levetiracetam (Keppra 1,000mg/ 100ml (Pmx)) 100 ml @ 400 mls/hr Q12 IVPB Last administered on 01/25/17 22:07; Admin Dose 400 MLS/HR; Start 01/05/17 at 11:30 Acetaminophen 650 mg 650 mg Q4H PRN NGT PAIN AND OR ELEVATED TEMP Last administered on 01/24/17 16:38; Admin Dose 650 MG; Start 01/06/17 at 04:30 Acetaminophen (Ofirmev 1000mg/ 100ml Iv) 100 ml @ 400 mls/hr Q6H PRN IVPB FEVER Last administered on 01/20/17 00:55; Admin Dose 400 MLS/HR; Start at 06:30 IV Flush (NS 10 ml) 10 ml PRN PRN IV IV PROTOCOL; Start 01/10/17 at 11:30 Amiodarone HCl (Cordarone) 200 mg BID GTB Last administered on 01/25/17 21:47 ; Admin Dose 200 MG; Start 01/11/17 at 12:00 Epoetin Mina (Epogen (Esrd)) 10,000 units MoWeFr@17 SC Last administered on 17:19; Admin Dose 10,000 UNITS; Start 01/13/17 at 17:00 Metoprolol Tartrate (Lopressor) 25 mg BID PO Last administered on 01/25/17 21: 48; Admin Dose 25 MG; Start 01/15/17 at 15:00 Al Hydrox/Mg Hydrox/ Simethicone 30 ml 30 ml Q4 GTB Last administered on 05:01; Admin Dose 30 ML; Start 01/15/17 at 17:00 Caspofungin 50 mg/ Sodium Chloride 250 ml @ 250 mls/hr Q24H IVPB Last administered on 01/25/17 15:08; Admin Dose 250 MLS/HR; Start 01/17/17 at 14:30 Dextrose 1,000 ml @ 75 mls/hr [id number] IV Last administered on 01/25/17 21:56 ; Admin Dose 75 MLS/HR; Start 01/18/17 at 08:30 Metronidazole (Flagyl 500 Mg (Pmx)) 100 ml @ 100 mls/hr Q8 IVPB Last administered on 01/26/17 05:02; Admin Dose 100 MLS/HR; Start 01/20/17 at 14:00 Pantoprazole 40 mg 40 mg DAILY@06 PO Last administered on 01/26/17 05:01; Admin Dose 40 MG; Start 01/22/17 at 06:00 Cefepime HCl (Maxipime 1gm/50 ml (Pmx)) 50 ml @ 100 mls/hr Q24H IVPB Last administered on 01/25/17 12:44; Admin Dose 100 MLS/HR; Start 01/24/17 at 13:30 Lorazepam (Ativan) 1 mg Q8H PRN IV seizure or anxiety Last administered on 01/25 18:02; Admin Dose 1 MG; Start 01/25/17 at 17:00 FRANCIS JULES MD Jan 26, 2017 07:40
[2017-01-26 07:50] LABS: CALCIUM 7.4 mg/dl (8.4-10.2); CREATININE 1.43 mg/dl (0.44-1.00); MAGNESIUM 1.7 mg/dl (1.7-2.5); PHOSPHORUS 3.6 mg/dl (2.5-4.9); POTASSIUM 3.3 mmol/L (3.5-5.1)
[2017-01-26] MEDS: LEVETIRACETAM 1000 MG (PMX) 100 ML IVPB SCH ×2 (09:08→21:04)
[2017-01-26] MEDS: METOPROLOL 25 MG TAB PO SCH ×2 (09:09→21:04)
[2017-01-26] MEDS: AMIODARONE 200 MG TAB GTB SCH ×2 (09:09→21:04)
[2017-01-26] MEDS: BALSAM PERU/CASTOR OIL 60 GM TUBE TOP SCH (09:10)
--- NOTE | 2017-01-26 10:20 | CONS ---
Date/Time of Note Date/Time of Note DATE: 01/26/17 TIME: 10:12 Assessment/Plan Assessment/Plan Chief Complaint/Hosp Course ID PROGRESS NOTE TOTAL ABX DAY # 21=> Cefepime #2 + FLAGYL #6 + CANCIDAS #11 s/p VANCO IV #12+ MERREM#12 => DC'd 01/24 24H INTERVAL SUMMARY/HOSPITAL COURSE * TNS to tele -> ABX downgraded yesterday now spiking fevers -> BCx, Urine, Sputum Cx ordered * VSS, lethargic, opens eyes, vented * LABS 01/26/17 0632 01/26/17 0632 PHYSICAL EXAMINATION: GENERAL: vSS, awake on Vent via Trach HEENT: Unremarkable, anicteric NECK: Trach(+) no bleeding, secure to Vent CHEST: Rise symmetrical w/course BS over vent tubing ABDOMEN: Soft, New PEG w/binder EXTREMITIES: Warm, moves extremities ID ASSESSMENT: 61 yo F admit with: 1. SIRS w/fever today 101.4, VSS * s/p Severe sepsis, status post shock = RESOLVED * Femoral Gael discontinued 01/22/17 W/tip(+) yeast * s/p 01/04/17 Coag negative staph bacteremia on admission, likely contaminant 2. Severe, acute pancreatitis, possibly developing pseudocyst 3. Choledocholithiasis, status post ERCP 01/12/17 with removal of the stone and stent placement 4. Anemia with no evidence of active GIB * FOBT (+) 01/24 & Gastric fluid (+)Occult blood 01/14 * s/p Thora 01/13 = sanguinous pleural fluid obtained ? 5. Acute respiratory failure-> Failed weaning, s/p Tracheostomy placement * s/p PEG 01/24/17 6. HCAP * => CXR 01/24/17 Stable hazy opacity at the right lung base, suggestive of a small partially layering right pleural effusion. * Underlying atelectasis and/or consolidation cannot be excluded. * s/p THORA 01/13 -> sanguinous pleural fluid ? 7. Acute renal failure requiring hemodialysis 8. Fungal urinary tract infection * s/p GNR UTI (E.Coli) 9. Diarrhea, rule out C. difficile (-) MRSA Nares screen INVASIVES: PICC. TRACH, PEG, FC ABX ALLERGY: KNDA CURRENT ABX: # 21=> Cefepime #2 + FLAGYL #6 + CANCIDAS #11 s/p VANCO IV #12+ MERREM#12 => DC'd 01/24 ID PLAN: * ABX tapered yesterday => now febrile 101.4 == may need to change the PICC Line * Start Vanco IV concern line sepsis after blood cx obtained from PICC Line * Repeat fung cultures on order * Continue Cefepime * Continue Flagyl * Continue Cancidas per risk of disseminated fungemia w/retained PICC, FC . . Problems: Consultation Date/Type/Reason Admit Date/Time Jan 04, 2017 at 19:10 Initial Consult Date 01/11/17 Type of Consultation: ID Referring Provider: YING CASTAÑEDA Exam/Review of Systems Vital Signs Vitals Vital Signs Date Time Temp Pulse Resp B/P Pulse Ox O2 Delivery O2 Flow Rate FiO2 01/26/17 08:22 106 01/26/17 07:55 26 100 30 01/26/17 07:54 101.4 153/86 01/26/17 06:09 Mechanical Ventilator Intake and Output 01/25/17 01/25/17 01/26/17 15:00 23:00 07:00 Intake Total 1115 ml 1090 ml 1150 ml Output Total 1100 ml 500 ml 1700 ml Balance 15 ml 590 ml -550 ml Results Result Diagram: 01/26/17 0632 01/26/17 0632 Results 24 hrs Laboratory Tests Test 01/26/17 06:32 White Blood Count 13.5 H Red Blood Count 2.94 L Hemoglobin 8.7 L Hematocrit 27.0 L Mean Corpuscular Volume 91.8 Mean Corpuscular Hemoglobin 29.6 Mean Corpuscular Hemoglobin Concent 32.2 Red Cell Distribution Width 16.4 H Platelet Count 597 H Mean Platelet Volume 9.7 Neutrophils % 78.0 H Lymphocytes % 10.1 L Monocytes % 6.4 Eosinophils % 1.0 Basophils % 0.4 Nucleated Red Blood Cells % 0.0 Neutrophils # 10.5 H Lymphocytes # 1.4 Monocytes # 0.9 Eosinophils # 0.1 Basophils # 0.1 Nucleated Red Blood Cells # 0.0 Sodium Level 147 H Potassium Level 3.3 L Chloride Level 111 H Carbon Dioxide Level 22 Anion Gap 17 H Blood Urea Nitrogen 42 H Creatinine 1.43 H Glucose Level 99 Calcium Level 7.4 L Phosphorus Level 3.6 Magnesium Level 1.7 Medications Medications Current Medications Ondansetron HCl (Zofran Inj) 4 mg Q6H PRN IV NAUSEA AND/OR VOMITING; Start 01/04 at 19:30 Acetaminophen/ Hydrocodone Bitart ([place] (5/325)) 1 tab Q6H PRN PO MODERATE PAIN LEVEL 4-6; Start 01/04/17 at 19:30 Morphine Sulfate (morphine) 2 mg Q4H PRN IV SEVERE PAIN LEVEL 7-10 Last administered on 01/25/17 12:50; Admin Dose 2 MG; Start 01/04/17 at 19:30 Docusate Sodium (Colace) 100 mg Q12H PRN PO CONSTIPATION; Start 01/04/17 at 19: 30 Magnesium Hydroxide (Milk Of Mag) 30 ml DAILY PRN PO CONSTIPATION; Start at 19:30 Sodium Biphosphate/ Sodium Phosphate (Fleet Enema) 133 ml DAILY PRN [place] CONSTIPATION; Start 01/04/17 at 19:30 Phenobarbital (Luminal) 64.8 mg BID PO Last administered on 01/04/17 23:45; Admin Dose 64.8 MG; Start 01/04/17 at 21:00; Status Future Hold Topiramate (Topamax) 200 mg BID PO ; Start 01/05/17 at 21:00; Status Future Hold Miscellaneous Information 1 ea NOTE XX ; Start 01/04/17 at 19:30 Glucose (Glutose) 15 gm Q15M PRN PO DECREASED GLUCOSE; Start 01/04/17 at 19:30 Glucose (Glutose) 22.5 gm Q15M PRN PO DECREASED GLUCOSE; Start 01/04/17 at 19:30 Dextrose (D50w Syringe) 25 ml Q15M PRN IV DECREASED GLUCOSE Last administered on 01/08/17 05:36; Admin Dose 25 ML; Start 01/04/17 at 19:30 Dextrose (D50w Syringe) 50 ml Q15M PRN IV DECREASED GLUCOSE; Start 01/04/17 at 19:30 Glucagon (Glucagen) 1 mg Q15M PRN IM DECREASED GLUCOSE; Start 01/04/17 at 19:30 Glucose (Glutose) 15 gm Q15M PRN BUCCAL DECREASED GLUCOSE; Start 01/04/17 at 19: 30 Phenytoin (Dilantin Susp Cup) 100 mg TID PO Last administered on 01/04/17 23:44 ; Admin Dose 100 MG; Start 01/04/17 at 21:50; Status Future Hold Clonazepam 0.5 mg 0.5 mg Q8H PO Last administered on 01/04/17 23:45; Admin Dose 0.5 MG; Start 01/04/17 at 23:00; Status Future Hold Levetiracetam (Keppra 1,000mg/ 100ml (Pmx)) 100 ml @ 400 mls/hr Q12 IVPB Last administered on 01/26/17 09:08; Admin Dose 400 MLS/HR; Start 01/05/17 at 11:30 Acetaminophen 650 mg 650 mg Q4H PRN NGT PAIN AND OR ELEVATED TEMP Last administered on 01/24/17 16:38; Admin Dose 650 MG; Start 01/06/17 at 04:30 Acetaminophen (Ofirmev 1000mg/ 100ml Iv) 100 ml @ 400 mls/hr Q6H PRN IVPB FEVER Last administered on 01/20/17 00:55; Admin Dose 400 MLS/HR; Start at 06:30 IV Flush (NS 10 ml) 10 ml PRN PRN IV IV PROTOCOL; Start 01/10/17 at 11:30 Amiodarone HCl (Cordarone) 200 mg BID GTB Last administered on 01/26/17 09:09 ; Admin Dose 200 MG; Start 01/11/17 at 12:00 Epoetin Mina (Epogen (Esrd)) 10,000 units MoWeFr@17 SC Last administered on 17:19; Admin Dose 10,000 UNITS; Start 01/13/17 at 17:00 Metoprolol Tartrate (Lopressor) 25 mg BID PO Last administered on 01/26/17 09: 09; Admin Dose 25 MG; Start 01/15/17 at 15:00 Al Hydrox/Mg Hydrox/ Simethicone 30 ml 30 ml Q4 GTB Last administered on 09:09; Admin Dose 30 ML; Start 01/15/17 at 17:00 Caspofungin 50 mg/ Sodium Chloride 250 ml @ 250 mls/hr Q24H IVPB Last administered on 01/25/17 15:08; Admin Dose 250 MLS/HR; Start 01/17/17 at 14:30 Dextrose 1,000 ml @ 75 mls/hr [id number] IV Last administered on 01/25/17 21:56 ; Admin Dose 75 MLS/HR; Start 01/18/17 at 08:30 Metronidazole (Flagyl 500 Mg (Pmx)) 100 ml @ 100 mls/hr Q8 IVPB Last administered on 01/26/17 05:02; Admin Dose 100 MLS/HR; Start 01/20/17 at 14:00 Pantoprazole 40 mg 40 mg DAILY@06 PO Last administered on 01/26/17 05:01; Admin Dose 40 MG; Start 01/22/17 at 06:00 Cefepime HCl (Maxipime 1gm/50 ml (Pmx)) 50 ml @ 100 mls/hr Q24H IVPB Last administered on 01/25/17 12:44; Admin Dose 100 MLS/HR; Start 01/24/17 at 13:30 Lorazepam (Ativan) 1 mg Q8H PRN IV seizure or anxiety Last administered on 01/25 18:02; Admin Dose 1 MG; Start 01/25/17 at 17:00 GAYATRI SALDIVAR NP Jan 26, 2017 10:20
[2017-01-26] MEDS ORDERED: VANCOMYCIN IV PER PHARMACY XX SCH (10:30)
--- NOTE | 2017-01-26 11:13 | CONS ---
DATE OF ADMISSION: 01/04/2017 DATE OF CONSULTATION: SUBJECTIVE: The patient is unable to complain as she is intubated. OBJECTIVE: The patient still remains intubated. PHYSICAL EXAMINATION: Temperature is 100.1. Pulse is 127, blood pressure 120/70. Not on vasopressors. CARDIOVASCULAR: Normal heart sounds. RESPIRATORY: Normal breath sounds. ABDOMEN: Soft abdomen with no palpable masses, but minimal pain is noted. LABORATORY WORKUP: WBC count went up to 30,000, hemoglobin 9.5. She received 2 units of packed cells yesterday. Nasogastric tube is not showing any blood, minimal dark brownish material. RECTAL: Earlier on she had a melanotic stool, but now when I examined her I got dark brown stool. LABORATORY: Chemistry: Potassium 3.5, alkaline phos 235. A CT scan of the abdomen shows severe pancreatitis. IMPRESSION: 1. Severe pancreatitis status post endoscopic retrograde cholangiopancreatography (ERCP) common bile duct stone removal. Common bile duct stent placement. The patient is getting worse. 2. She also has renal failure. Overall prognosis is poor. PLAN: At this time recommend continued aggressive medical management. Dictated By: Chaitanya Green MD /[email or web address] /Document#: [id number] CC: Markell Reina MD;*[facility]*
--- NOTE | 2017-01-26 11:26 | CONS ---
Date/Time of Note Date/Time of Note DATE: 01/26/17 TIME: 11:24 Consult Date/Type/Reason Admit Date/Time Jan 04, 2017 at 19:10 Initial Consult Date 01/05/17 Type of Consultation: ID Ordering Provider: YING CASTAÑEDA Transferred from ICU yesterday. Remains comfortable. Objective Vital Signs Date Time Temp Pulse Resp B/P Pulse Ox O2 Delivery O2 Flow Rate FiO2 01/26/17 11:17 98.2 97 20 154/95 100 01/26/17 09:55 30 01/26/17 06:09 Mechanical Ventilator Intake and Output 01/25/17 01/25/17 01/26/17 15:00 23:00 07:00 Intake Total 1115 ml 1090 ml 1150 ml Output Total 1100 ml 500 ml 1700 ml Balance 15 ml 590 ml -550 ml Exam GENERAL: Elderly lady on mechanical ventilation via tracheostomy comfortable VITAL SIGNS: per chart NECK: Supple. No JVD or lymphadenopathy.,, Trach site clean and intact CARDIAC EXAM: S1, S2. No added sounds or murmurs. CHEST: Diminished air entry both lung bases. ABDOMEN: Soft, nontender. No guarding or rebound. Mildly distended. EXTREMITIES: No cyanosis, clubbing or edema. NEUROLOGIC: Generalized weakness. No focal deficits. Results/Medications Result Diagram: 01/26/17 0632 01/26/17 0632 Results 24 hrs Laboratory Tests Test 01/26/17 06:32 White Blood Count 13.5 H Red Blood Count 2.94 L Hemoglobin 8.7 L Hematocrit 27.0 L Mean Corpuscular Volume 91.8 Mean Corpuscular Hemoglobin 29.6 Mean Corpuscular Hemoglobin Concent 32.2 Red Cell Distribution Width 16.4 H Platelet Count 597 H Mean Platelet Volume 9.7 Neutrophils % 78.0 H Lymphocytes % 10.1 L Monocytes % 6.4 Eosinophils % 1.0 Basophils % 0.4 Nucleated Red Blood Cells % 0.0 Neutrophils # 10.5 H Lymphocytes # 1.4 Monocytes # 0.9 Eosinophils # 0.1 Basophils # 0.1 Nucleated Red Blood Cells # 0.0 Sodium Level 147 H Potassium Level 3.3 L Chloride Level 111 H Carbon Dioxide Level 22 Anion Gap 17 H Blood Urea Nitrogen 42 H Creatinine 1.43 H Glucose Level 99 Calcium Level 7.4 L Phosphorus Level 3.6 Magnesium Level 1.7 Medications Current Medications Ondansetron HCl (Zofran Inj) 4 mg Q6H PRN IV NAUSEA AND/OR VOMITING; Start 01/04 at 19:30 Acetaminophen/ Hydrocodone Bitart ([place] (5/325)) 1 tab Q6H PRN PO MODERATE PAIN LEVEL 4-6; Start 01/04/17 at 19:30 Morphine Sulfate (morphine) 2 mg Q4H PRN IV SEVERE PAIN LEVEL 7-10 Last administered on 01/25/17 12:50; Admin Dose 2 MG; Start 01/04/17 at 19:30 Docusate Sodium (Colace) 100 mg Q12H PRN PO CONSTIPATION; Start 01/04/17 at 19: 30 Magnesium Hydroxide (Milk Of Mag) 30 ml DAILY PRN PO CONSTIPATION; Start at 19:30 Sodium Biphosphate/ Sodium Phosphate (Fleet Enema) 133 ml DAILY PRN [place] CONSTIPATION; Start 01/04/17 at 19:30 Phenobarbital (Luminal) 64.8 mg BID PO Last administered on 01/04/17 23:45; Admin Dose 64.8 MG; Start 01/04/17 at 21:00; Status Future Hold Topiramate (Topamax) 200 mg BID PO ; Start 01/05/17 at 21:00; Status Future Hold Miscellaneous Information 1 ea NOTE XX ; Start 01/04/17 at 19:30 Glucose (Glutose) 15 gm Q15M PRN PO DECREASED GLUCOSE; Start 01/04/17 at 19:30 Glucose (Glutose) 22.5 gm Q15M PRN PO DECREASED GLUCOSE; Start 01/04/17 at 19:30 Dextrose (D50w Syringe) 25 ml Q15M PRN IV DECREASED GLUCOSE Last administered on 01/08/17 05:36; Admin Dose 25 ML; Start 01/04/17 at 19:30 Dextrose (D50w Syringe) 50 ml Q15M PRN IV DECREASED GLUCOSE; Start 01/04/17 at 19:30 Glucagon (Glucagen) 1 mg Q15M PRN IM DECREASED GLUCOSE; Start 01/04/17 at 19:30 Glucose (Glutose) 15 gm Q15M PRN BUCCAL DECREASED GLUCOSE; Start 01/04/17 at 19: 30 Phenytoin (Dilantin Susp Cup) 100 mg TID PO Last administered on 01/04/17 23:44 ; Admin Dose 100 MG; Start 01/04/17 at 21:50; Status Future Hold Clonazepam 0.5 mg 0.5 mg Q8H PO Last administered on 01/04/17 23:45; Admin Dose 0.5 MG; Start 01/04/17 at 23:00; Status Future Hold Levetiracetam (Keppra 1,000mg/ 100ml (Pmx)) 100 ml @ 400 mls/hr Q12 IVPB Last administered on 01/26/17 09:08; Admin Dose 400 MLS/HR; Start 01/05/17 at 11:30 Acetaminophen 650 mg 650 mg Q4H PRN NGT PAIN AND OR ELEVATED TEMP Last administered on 01/24/17 16:38; Admin Dose 650 MG; Start 01/06/17 at 04:30 Acetaminophen (Ofirmev 1000mg/ 100ml Iv) 100 ml @ 400 mls/hr Q6H PRN IVPB FEVER Last administered on 01/20/17 00:55; Admin Dose 400 MLS/HR; Start at 06:30 IV Flush (NS 10 ml) 10 ml PRN PRN IV IV PROTOCOL; Start 01/10/17 at 11:30 Amiodarone HCl (Cordarone) 200 mg BID GTB Last administered on 01/26/17 09:09 ; Admin Dose 200 MG; Start 01/11/17 at 12:00 Epoetin Mina (Epogen (Esrd)) 10,000 units MoWeFr@17 SC Last administered on 17:19; Admin Dose 10,000 UNITS; Start 01/13/17 at 17:00 Metoprolol Tartrate (Lopressor) 25 mg BID PO Last administered on 01/26/17 09: 09; Admin Dose 25 MG; Start 01/15/17 at 15:00 Al Hydrox/Mg Hydrox/ Simethicone 30 ml 30 ml Q4 GTB Last administered on 09:09; Admin Dose 30 ML; Start 01/15/17 at 17:00 Caspofungin 50 mg/ Sodium Chloride 250 ml @ 250 mls/hr Q24H IVPB Last administered on 01/25/17 15:08; Admin Dose 250 MLS/HR; Start 01/17/17 at 14:30 Dextrose 1,000 ml @ 75 mls/hr [id number] IV Last administered on 01/25/17 21:56 ; Admin Dose 75 MLS/HR; Start 01/18/17 at 08:30 Metronidazole (Flagyl 500 Mg (Pmx)) 100 ml @ 100 mls/hr Q8 IVPB Last administered on 01/26/17 05:02; Admin Dose 100 MLS/HR; Start 01/20/17 at 14:00 Pantoprazole 40 mg 40 mg DAILY@06 PO Last administered on 01/26/17 05:01; Admin Dose 40 MG; Start 01/22/17 at 06:00 Cefepime HCl (Maxipime 1gm/50 ml (Pmx)) 50 ml @ 100 mls/hr Q24H IVPB Last administered on 01/25/17 12:44; Admin Dose 100 MLS/HR; Start 01/24/17 at 13:30 Lorazepam (Ativan) 1 mg Q8H PRN IV seizure or anxiety Last administered on 01/25 18:02; Admin Dose 1 MG; Start 01/25/17 at 17:00 Assessment/Plan Chief Complaint/Hosp Course IMP: 1. Severe gallstone pancreatitis with septic shock, now slowly improving. Severe pancreatitis present on CT abdomen. Drop in hemoglobin. Questionable GI bleed. 2. Metabolic acidosis secondary to above and ARF 3. Renal failure likely ATN now requiring hemodialysis 4. 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 Status post thoracentesis right lung. Ongoing pulmonary edema and atelectasis on chest x-ray although radiographically improved. 5. History of seizure disorder RECS: 1. Hemodialysis today per nephrology, improved renal function noted. Discussed with nephrology may soon no longer require hemodialysis. 2. Continue mechanical ventilation, status post tracheostomy continue trach site care, ventilator weaning once patient is more stable we will attempt CPAP weaning trial if remains stable 3. Broad-spectrum antibiotic coverage will discuss with infectious diseases 4. Continue tube feeding. 5. GI recommendations. Continue supportive care. 6. Continue DVT and GI prophylaxis 7. Monitor H&H Olmos evaluation. Problems: AMPARO VALERIO MD, [facility] Jan 26, 2017 11:26
--- NOTE | 2017-01-26 12:02 | RADRPT ---
PROCEDURE: XR Chest. CLINICAL INDICATION: Pulmonary edema, ET tube TECHNIQUE: Single frontal view of the chest was obtained COMPARISON: Chest x-ray 01/24/2017 FINDINGS: The tracheostomy tube and right PICC line remain stable positions. Left chest wall implanted electro de device and wires appear stable positions. There are persistent low lung volumes. Hazy opacity at the right mid and lower lung field persist and are present small partially layering right pleural effusion, edema, atelectasis, and / or consolidation. There is increased hazy opacity at the left lung base with similar differential. The cardiac silhouette is mildly enlarged. There is pulmonary vascular congestion. The osseous structures, as visualized, are unchanged. IMPRESSION: 1. Stable hazy opacity at the right lung base which may represent a small right pleural effusion, e daija, atelectasis, and / or consolidation. 2. Interval increase in hazy opacity at the left lung base, with similar differential as above. 3. Persistent low lung volumes. 4. Mild cardiomegaly. RPTAT: PP Physician Domingo Date Time Electronically viewed and signed by Physician Domingo on 01/26/2017 12:02 /
[2017-01-26] MEDS ORDERED: MAGNESIUM SULFATE 2 GM/50 ML 50 ML IVPB ONE (13:00)
[2017-01-26] MEDS: CEFEPIME 1GM/50 ML (PMX) 50 ML IVPB SCH (13:27)
[2017-01-26] MEDS ORDERED: VANCOMYCIN 1.75 GM in NS 500 ML IVPB SCH (14:00)
[2017-01-26] MEDS: POTASSIUM CHLORIDE 50 ML IVPB SCH ×3 (14:36→18:50)
[2017-01-26] MEDS: CASPOFUNGIN 50 MG in SOD CHLORIDE 0.9% 250 ML IVPB SCH (15:41)
--- NOTE | 2017-01-26 16:31 | CONS ---
Date/Time of Note Date/Time of Note DATE: 01/26/17 TIME: 16:30 Assessment/Plan Assessment/Plan Additional Assessment/Plan Paroxysmal atrial fibrillation, currently sinus rhythm Severe sepsis Acute pancreatitis status post ERCP Preserved ejection fraction Respiratory failure, vent dependent, status post tracheostomy Acute kidney injury now on hemodialysis Seizure disorder Psychiatric disorder Acute blood loss anemia GI bleed status post clipping - Would continue amiodarone to help maintain in sinus rhythm. No anticoagulation for atrial fibrillation given severe anemia and GI bleed. Fluid management as per our nephrology colleagues. Ideally, maintain potassium above 4.0 and magnesium above 2.0 to decrease arrhythmias. Supplementation has already been ordered. Consultation Date/Type/Reason Admit Date/Time Jan 04, 2017 at 19:10 Initial Consult Date 01/05/17 Type of Consultation: cv Referring Provider: YING CASTAÑEDA 24 HR Interval Summary Free Text/Dictation Patient seen and examined Exam/Review of Systems Vital Signs Vitals Vital Signs Date Time Temp Pulse Resp B/P Pulse Ox O2 Delivery O2 Flow Rate FiO2 01/26/17 15:07 101.7 106 20 165/85 96 01/26/17 14:05 30 01/26/17 06:09 Mechanical Ventilator Intake and Output 01/25/17 01/25/17 01/26/17 15:00 23:00 07:00 Intake Total 1115 ml 1090 ml 1150 ml Output Total 1100 ml 500 ml 1700 ml Balance 15 ml 590 ml -550 ml Exam Sleeping, no apparent distress Head: normocephalic Neck: other (Tracheostomy) Respiratory: other (Coarse breath sounds bilaterally, no wheezing) Cardiovascular: other (S1-S2 heard), regular rate and rhythm Gastrointestinal: bowel sounds, non-tender, soft Extremities: edema Results Result Diagram: 01/26/17 0632 01/26/17 0632 Results 24 hrs Laboratory Tests Test 01/26/17 06:32 White Blood Count 13.5 H Red Blood Count 2.94 L Hemoglobin 8.7 L Hematocrit 27.0 L Mean Corpuscular Volume 91.8 Mean Corpuscular Hemoglobin 29.6 Mean Corpuscular Hemoglobin Concent 32.2 Red Cell Distribution Width 16.4 H Platelet Count 597 H Mean Platelet Volume 9.7 Neutrophils % 78.0 H Lymphocytes % 10.1 L Monocytes % 6.4 Eosinophils % 1.0 Basophils % 0.4 Nucleated Red Blood Cells % 0.0 Neutrophils # 10.5 H Lymphocytes # 1.4 Monocytes # 0.9 Eosinophils # 0.1 Basophils # 0.1 Nucleated Red Blood Cells # 0.0 Sodium Level 147 H Potassium Level 3.3 L Chloride Level 111 H Carbon Dioxide Level 22 Anion Gap 17 H Blood Urea Nitrogen 42 H Creatinine 1.43 H Glucose Level 99 Calcium Level 7.4 L Phosphorus Level 3.6 Magnesium Level 1.7 Medications Medications Current Medications Ondansetron HCl (Zofran Inj) 4 mg Q6H PRN IV NAUSEA AND/OR VOMITING; Start 01/04 at 19:30 Acetaminophen/ Hydrocodone Bitart ([place] (5/325)) 1 tab Q6H PRN PO MODERATE PAIN LEVEL 4-6; Start 01/04/17 at 19:30 Morphine Sulfate (morphine) 2 mg Q4H PRN IV SEVERE PAIN LEVEL 7-10 Last administered on 01/25/17 12:50; Admin Dose 2 MG; Start 01/04/17 at 19:30 Docusate Sodium (Colace) 100 mg Q12H PRN PO CONSTIPATION; Start 01/04/17 at 19: 30 Magnesium Hydroxide (Milk Of Mag) 30 ml DAILY PRN PO CONSTIPATION; Start at 19:30 Sodium Biphosphate/ Sodium Phosphate (Fleet Enema) [address] CONSTIPATION; Start 01/04/17 at 19:30 Phenobarbital (Luminal) 64.8 mg BID PO Last administered on 01/04/17 23:45; Admin Dose 64.8 MG; Start 01/04/17 at 21:00; Status Future Hold Topiramate (Topamax) 200 mg BID PO ; Start 01/05/17 at 21:00; Status Future Hold Miscellaneous Information 1 ea NOTE XX ; Start 01/04/17 at 19:30 Glucose (Glutose) 15 gm Q15M PRN PO DECREASED GLUCOSE; Start 01/04/17 at 19:30 Glucose (Glutose) 22.5 gm Q15M PRN PO DECREASED GLUCOSE; Start 01/04/17 at 19:30 Dextrose (D50w Syringe) 25 ml Q15M PRN IV DECREASED GLUCOSE Last administered on 01/08/17 05:36; Admin Dose 25 ML; Start 01/04/17 at 19:30 Dextrose (D50w Syringe) 50 ml Q15M PRN IV DECREASED GLUCOSE; Start 01/04/17 at 19:30 Glucagon (Glucagen) 1 mg Q15M PRN IM DECREASED GLUCOSE; Start 01/04/17 at 19:30 Glucose (Glutose) 15 gm Q15M PRN BUCCAL DECREASED GLUCOSE; Start 01/04/17 at 19: 30 Phenytoin (Dilantin Susp Cup) 100 mg TID PO Last administered on 01/04/17 23:44 ; Admin Dose 100 MG; Start 01/04/17 at 21:50; Status Future Hold Clonazepam 0.5 mg 0.5 mg Q8H PO Last administered on 01/04/17 23:45; Admin Dose 0.5 MG; Start 01/04/17 at 23:00; Status Future Hold Levetiracetam (Keppra 1,000mg/ 100ml (Pmx)) 100 ml @ 400 mls/hr Q12 IVPB Last administered on 01/26/17 09:08; Admin Dose 400 MLS/HR; Start 01/05/17 at 11:30 Acetaminophen 650 mg 650 mg Q4H PRN NGT PAIN AND OR ELEVATED TEMP Last administered on 01/24/17 16:38; Admin Dose 650 MG; Start 01/06/17 at 04:30 Acetaminophen (Ofirmev 1000mg/ 100ml Iv) 100 ml @ 400 mls/hr Q6H PRN IVPB FEVER Last administered on 01/20/17 00:55; Admin Dose 400 MLS/HR; Start at 06:30 IV Flush (NS 10 ml) 10 ml PRN PRN IV IV PROTOCOL; Start 01/10/17 at 11:30 Amiodarone HCl (Cordarone) 200 mg BID GTB Last administered on 01/26/17 09:09 ; Admin Dose 200 MG; Start 01/11/17 at 12:00 Epoetin Mina (Epogen (Esrd)) 10,000 units MoWeFr@17 SC Last administered on 17:19; Admin Dose 10,000 UNITS; Start 01/13/17 at 17:00 Metoprolol Tartrate (Lopressor) 25 mg BID PO Last administered on 01/26/17 09: 09; Admin Dose 25 MG; Start 01/15/17 at 15:00 Al Hydrox/Mg Hydrox/ Simethicone 30 ml 30 ml Q4 GTB Last administered on 09:09; Admin Dose 30 ML; Start 01/15/17 at 17:00 Caspofungin 50 mg/ Sodium Chloride 250 ml @ 250 mls/hr Q24H IVPB Last administered on 01/26/17 15:41; Admin Dose 250 MLS/HR; Start 01/17/17 at 14:30 Dextrose 1,000 ml @ 150 mls/hr Q6H40M IV Last administered on 01/26/17 14:52 ; Admin Dose 150 MLS/HR; Start 01/18/17 at 08:30 Metronidazole (Flagyl 500 Mg (Pmx)) 100 ml @ 100 mls/hr Q8 IVPB Last administered on 01/26/17 14:06; Admin Dose 100 MLS/HR; Start 01/20/17 at 14:00 Pantoprazole 40 mg 40 mg DAILY@06 PO Last administered on 01/26/17 05:01; Admin Dose 40 MG; Start 01/22/17 at 06:00 Cefepime HCl (Maxipime 1gm/50 ml (Pmx)) 50 ml @ 100 mls/hr Q24H IVPB Last administered on 01/26/17 13:27; Admin Dose 100 MLS/HR; Start 01/24/17 at 13:30 Lorazepam 1 mg 1 mg Q8H PRN IV seizure or anxiety Last administered on 18:02; Admin Dose 1 MG; Start 01/25/17 at 17:00 Vancomycin HCl 1.75 gm/Sodium Chloride 500 ml @ 125 mls/hr ONCE IVPB Last administered on 01/26/17 14:36; Admin Dose 125 MLS/HR; Start 01/26/17 at 14:00 ; Stop 01/26/17 at 17:59 Vancomycin HCl 250 ml @ 125 mls/hr Q24H IVPB ; Start 01/27/17 at 15:00 Potassium Chloride (KCl 20 MEQ/50 ML SW) 50 ml @ 25 mls/hr Q2H IVPB Last administered on 01/26/17 16:14; Admin Dose 25 MLS/HR; Start 01/26/17 at 14:00; Stop 01/26/17 at 19:59 Vlad Leyva DO Jan 26, 2017 16:31
--- NOTE | 2017-01-26 17:44 | PN ---
Date/Time of Note Date/Time of Note DATE: 01/26/17 TIME: 17:41 Assessment/Plan VTE Prophylaxis VTE Prophylaxis Intervention: heparin Lines/Catheters IV [facility] PICC Line Central line still needed: Yes Urinary Cath still in place: Yes Reason Cath still needed: urinary retention Assessment/Plan Chief Complaint/Hosp Course 61 yo female with septic shock 2/2 gall stone pancreatitis. s/p ERCP w stent. LEONOR requiring HD temporarily. Respiratory failure now s/p trach and PEG and remains on mechanical sedation pending improvement in ventilatory status. PULM: Respiratory Failure: - Patient remains on mechanical ventilation via trach. AC //. Saturating 99% - Vent weaning as tolerated - Volume removal would be helpful ID: Fever likely urinary vs pulmonary source - Continue abx per ID consult RENAL: LEONOR: - renal functioning is improving off of dialysis -Continue to monitor creatinine and urine output HYPERNATREMIA: - Continue FW as needed to correct GI: Gall stone pancreatitis: - s/p ERCP and stent - s/p G tube, continue tube feeds HEME: Anemia of inflammation: - H/H stable CV: Paroxysmal Atrial Fibrillation: - Continue amiodarone for A Fib, currently in SR - Holding AC given recent GI bleed Discharge planning pending ability to wean from vent PT/OT Problems: Subjective 24 Hr Interval Summary Free Text/Dictation Febrile to 101 today, HD stable Subjective hx not possible: pt non-verbal Exam/Review of Systems Vital Signs Vitals Vital Signs Date Time Temp Pulse Resp B/P Pulse Ox O2 Delivery O2 Flow Rate FiO2 01/26/17 16:12 110 01/26/17 15:55 26 97 30 01/26/17 15:07 101.7 165/85 01/26/17 06:09 Mechanical Ventilator Intake and Output 01/25/17 01/25/17 01/26/17 15:00 23:00 07:00 Intake Total 1115 ml 1090 ml 1150 ml Output Total 1100 ml 500 ml 1700 ml Balance 15 ml 590 ml -550 ml Exam Alert, comfortable appearing, interactive Trach Alert, responsive to commands, moves extremities x 4 Lungs clear Abdomen slightly tender in lower quadrant RUE PICC Results Result Diagram: 01/26/17 0632 01/26/17 0632 Results 24 hrs Laboratory Tests Test 01/26/17 06:32 White Blood Count 13.5 H Red Blood Count 2.94 L Hemoglobin 8.7 L Hematocrit 27.0 L Mean Corpuscular Volume 91.8 Mean Corpuscular Hemoglobin 29.6 Mean Corpuscular Hemoglobin Concent 32.2 Red Cell Distribution Width 16.4 H Platelet Count 597 H Mean Platelet Volume 9.7 Neutrophils % 78.0 H Lymphocytes % 10.1 L Monocytes % 6.4 Eosinophils % 1.0 Basophils % 0.4 Nucleated Red Blood Cells % 0.0 Neutrophils # 10.5 H Lymphocytes # 1.4 Monocytes # 0.9 Eosinophils # 0.1 Basophils # 0.1 Nucleated Red Blood Cells # 0.0 Sodium Level 147 H Potassium Level 3.3 L Chloride Level 111 H Carbon Dioxide Level 22 Anion Gap 17 H Blood Urea Nitrogen 42 H Creatinine 1.43 H Glucose Level 99 Calcium Level 7.4 L Phosphorus Level 3.6 Magnesium Level 1.7 Medications Medications Current Medications Ondansetron HCl (Zofran Inj) 4 mg Q6H PRN IV NAUSEA AND/OR VOMITING; Start 01/04 at 19:30 Acetaminophen/ Hydrocodone Bitart ([place] (5/325)) 1 tab Q6H PRN PO MODERATE PAIN LEVEL 4-6; Start 01/04/17 at 19:30 Morphine Sulfate (morphine) 2 mg Q4H PRN IV SEVERE PAIN LEVEL 7-10 Last administered on 01/25/17 12:50; Admin Dose 2 MG; Start 01/04/17 at 19:30 Docusate Sodium (Colace) 100 mg Q12H PRN PO CONSTIPATION; Start 01/04/17 at 19: 30 Magnesium Hydroxide (Milk Of Mag) 30 ml DAILY PRN PO CONSTIPATION; Start at 19:30 Sodium Biphosphate/ Sodium Phosphate (Fleet Enema) 133 ml DAILY PRN [place] CONSTIPATION; Start 01/04/17 at 19:30 Phenobarbital (Luminal) 64.8 mg BID PO Last administered on 01/04/17 23:45; Admin Dose 64.8 MG; Start 01/04/17 at 21:00; Status Future Hold Topiramate (Topamax) 200 mg BID PO ; Start 01/05/17 at 21:00; Status Future Hold Miscellaneous Information 1 ea NOTE XX ; Start 01/04/17 at 19:30 Glucose (Glutose) 15 gm Q15M PRN PO DECREASED GLUCOSE; Start 01/04/17 at 19:30 Glucose (Glutose) 22.5 gm Q15M PRN PO DECREASED GLUCOSE; Start 01/04/17 at 19:30 Dextrose (D50w Syringe) 25 ml Q15M PRN IV DECREASED GLUCOSE Last administered on 01/08/17 05:36; Admin Dose 25 ML; Start 01/04/17 at 19:30 Dextrose (D50w Syringe) 50 ml Q15M PRN IV DECREASED GLUCOSE; Start 01/04/17 at 19:30 Glucagon (Glucagen) 1 mg Q15M PRN IM DECREASED GLUCOSE; Start 01/04/17 at 19:30 Glucose (Glutose) 15 gm Q15M PRN BUCCAL DECREASED GLUCOSE; Start 01/04/17 at 19: 30 Phenytoin (Dilantin Susp Cup) 100 mg TID PO Last administered on 01/04/17 23:44 ; Admin Dose 100 MG; Start 01/04/17 at 21:50; Status Future Hold Clonazepam 0.5 mg 0.5 mg Q8H PO Last administered on 01/04/17 23:45; Admin Dose 0.5 MG; Start 01/04/17 at 23:00; Status Future Hold Levetiracetam (Keppra 1,000mg/ 100ml (Pmx)) 100 ml @ 400 mls/hr Q12 IVPB Last administered on 01/26/17 09:08; Admin Dose 400 MLS/HR; Start 01/05/17 at 11:30 Acetaminophen 650 mg 650 mg Q4H PRN NGT PAIN AND OR ELEVATED TEMP Last administered on 01/24/17 16:38; Admin Dose 650 MG; Start 01/06/17 at 04:30 Acetaminophen (Ofirmev 1000mg/ 100ml Iv) 100 ml @ 400 mls/hr Q6H PRN IVPB FEVER Last administered on 01/20/17 00:55; Admin Dose 400 MLS/HR; Start at 06:30 IV Flush (NS 10 ml) 10 ml PRN PRN IV IV PROTOCOL; Start 01/10/17 at 11:30 Amiodarone HCl (Cordarone) 200 mg BID GTB Last administered on 01/26/17 09:09 ; Admin Dose 200 MG; Start 01/11/17 at 12:00 Epoetin Mina (Epogen (Esrd)) 10,000 units MoWeFr@17 SC Last administered on 17:19; Admin Dose 10,000 UNITS; Start 01/13/17 at 17:00 Metoprolol Tartrate (Lopressor) 25 mg BID PO Last administered on 01/26/17 09: 09; Admin Dose 25 MG; Start 01/15/17 at 15:00 Al Hydrox/Mg Hydrox/ Simethicone 30 ml 30 ml Q4 GTB Last administered on 09:09; Admin Dose 30 ML; Start 01/15/17 at 17:00 Caspofungin 50 mg/ Sodium Chloride 250 ml @ 250 mls/hr Q24H IVPB Last administered on 01/26/17 15:41; Admin Dose 250 MLS/HR; Start 01/17/17 at 14:30 Dextrose 1,000 ml @ 150 mls/hr Q6H40M IV Last administered on 01/26/17 14:52 ; Admin Dose 150 MLS/HR; Start 01/18/17 at 08:30 Metronidazole (Flagyl 500 Mg (Pmx)) 100 ml @ 100 mls/hr Q8 IVPB Last administered on 01/26/17 14:06; Admin Dose 100 MLS/HR; Start 01/20/17 at 14:00 Pantoprazole 40 mg 40 mg DAILY@06 PO Last administered on 01/26/17 05:01; Admin Dose 40 MG; Start 01/22/17 at 06:00 Cefepime HCl (Maxipime 1gm/50 ml (Pmx)) 50 ml @ 100 mls/hr Q24H IVPB Last administered on 01/26/17 13:27; Admin Dose 100 MLS/HR; Start 01/24/17 at 13:30 Lorazepam 1 mg 1 mg Q8H PRN IV seizure or anxiety Last administered on 18:02; Admin Dose 1 MG; Start 01/25/17 at 17:00 Vancomycin HCl 1.75 gm/Sodium Chloride 500 ml @ 125 mls/hr ONCE IVPB Last administered on 01/26/17 14:36; Admin Dose 125 MLS/HR; Start 01/26/17 at 14:00 ; Stop 01/26/17 at 17:59 Vancomycin HCl 250 ml @ 125 mls/hr Q24H IVPB ; Start 01/27/17 at 15:00 Potassium Chloride (KCl 20 MEQ/50 ML SW) 50 ml @ 25 mls/hr Q2H IVPB Last administered on 01/26/17t 16:14; Admin Dose 25 MLS/HR; Start 01/26/17 at 14:00; Stop 01/26/17 at 19:59 CRISTIANE CHRISTINA MD Jan 26, 2017 17:44
--- NOTE | 2017-01-26 18:18 | CONS ---
Date/Time of Note Date/Time of Note DATE: 01/26/17 TIME: 18:15 Assessment/Plan Assessment/Plan Chief Complaint/Hosp Course History of abdominal pain and because of that patient came to the emergency room she was found to have acute pancreatitis She also developed respiratory distress sequently she is intubated and she is currently in the intensive care unit Details of the medical history not available because he is intubated and cannot reach the family members Problems: Additional Assessment/Plan gall stone pancreatitis slowly improving resp failure trach and vent Consultation Date/Type/Reason Admit Date/Time Jan 04, 2017 at 19:10 Initial Consult Date 01/05/17 Type of Consultation: cv Referring Provider: YING CASTAÑEDA 24 HR Interval Summary Free Text/Dictation pt out of icu on tele non verbal Exam/Review of Systems Vital Signs Vitals Vital Signs Date Time Temp Pulse Resp B/P Pulse Ox O2 Delivery O2 Flow Rate FiO2 01/26/17 17:20 105 30 30 01/26/17 15:55 97 01/26/17 15:07 101.7 165/85 01/26/17 06:09 Mechanical Ventilator Intake and Output 01/25/17 01/25/17 01/26/17 15:00 23:00 07:00 Intake Total 1115 ml 1090 ml 1150 ml Output Total 1100 ml 500 ml 1700 ml Balance 15 ml 590 ml -550 ml Exam o/o abd soft tolerating j tube feeding low ca and low alb has pneumonia Results Result Diagram: 01/26/17 0632 01/26/17 0632 Results 24 hrs Laboratory Tests Test 01/26/17 06:32 White Blood Count 13.5 H Red Blood Count 2.94 L Hemoglobin 8.7 L Hematocrit 27.0 L Mean Corpuscular Volume 91.8 Mean Corpuscular Hemoglobin 29.6 Mean Corpuscular Hemoglobin Concent 32.2 Red Cell Distribution Width 16.4 H Platelet Count 597 H Mean Platelet Volume 9.7 Neutrophils % 78.0 H Lymphocytes % 10.1 L Monocytes % 6.4 Eosinophils % 1.0 Basophils % 0.4 Nucleated Red Blood Cells % 0.0 Neutrophils # 10.5 H Lymphocytes # 1.4 Monocytes # 0.9 Eosinophils # 0.1 Basophils # 0.1 Nucleated Red Blood Cells # 0.0 Sodium Level 147 H Potassium Level 3.3 L Chloride Level 111 H Carbon Dioxide Level 22 Anion Gap 17 H Blood Urea Nitrogen 42 H Creatinine 1.43 H Glucose Level 99 Calcium Level 7.4 L Phosphorus Level 3.6 Magnesium Level 1.7 Medications Medications Current Medications Ondansetron HCl (Zofran Inj) 4 mg Q6H PRN IV NAUSEA AND/OR VOMITING; Start 01/04 at 19:30 Acetaminophen/ Hydrocodone Bitart ([place] (5/325)) 1 tab Q6H PRN PO MODERATE PAIN LEVEL 4-6; Start 01/04/17 at 19:30 Morphine Sulfate (morphine) 2 mg Q4H PRN IV SEVERE PAIN LEVEL 7-10 Last administered on 01/25/17 12:50; Admin Dose 2 MG; Start 01/04/17 at 19:30 Docusate Sodium (Colace) 100 mg Q12H PRN PO CONSTIPATION; Start 01/04/17 at 19: 30 Magnesium Hydroxide (Milk Of Mag) 30 ml DAILY PRN PO CONSTIPATION; Start at 19:30 Sodium Biphosphate/ Sodium Phosphate (Fleet Enema) 133 ml DAILY PRN [place] CONSTIPATION; Start 01/04/17 at 19:30 Phenobarbital (Luminal) 64.8 mg BID PO Last administered on 01/04/17 23:45; Admin Dose 64.8 MG; Start 01/04/17 at 21:00; Status Future Hold Topiramate (Topamax) 200 mg BID PO ; Start 01/05/17 at 21:00; Status Future Hold Miscellaneous Information 1 ea NOTE XX ; Start 01/04/17 at 19:30 Glucose (Glutose) 15 gm Q15M PRN PO DECREASED GLUCOSE; Start 01/04/17 at 19:30 Glucose (Glutose) 22.5 gm Q15M PRN PO DECREASED GLUCOSE; Start 01/04/17 at 19:30 Dextrose (D50w Syringe) 25 ml Q15M PRN IV DECREASED GLUCOSE Last administered on 01/08/17 05:36; Admin Dose 25 ML; Start 01/04/17 at 19:30 Dextrose (D50w Syringe) 50 ml Q15M PRN IV DECREASED GLUCOSE; Start 01/04/17 at 19:30 Glucagon (Glucagen) 1 mg Q15M PRN IM DECREASED GLUCOSE; Start 01/04/17 at 19:30 Glucose (Glutose) 15 gm Q15M PRN BUCCAL DECREASED GLUCOSE; Start 01/04/17 at 19: 30 Phenytoin (Dilantin Susp Cup) 100 mg TID PO Last administered on 01/04/17 23:44 ; Admin Dose 100 MG; Start 01/04/17 at 21:50; Status Future Hold Clonazepam 0.5 mg 0.5 mg Q8H PO Last administered on 01/04/17 23:45; Admin Dose 0.5 MG; Start 01/04/17 at 23:00; Status Future Hold Levetiracetam (Keppra 1,000mg/ 100ml (Pmx)) 100 ml @ 400 mls/hr Q12 IVPB Last administered on 01/26/17 09:08; Admin Dose 400 MLS/HR; Start 01/05/17 at 11:30 Acetaminophen 650 mg 650 mg Q4H PRN NGT PAIN AND OR ELEVATED TEMP Last administered on 01/24/17 16:38; Admin Dose 650 MG; Start 01/06/17 at 04:30 Acetaminophen (Ofirmev 1000mg/ 100ml Iv) 100 ml @ 400 mls/hr Q6H PRN IVPB FEVER Last administered on 01/20/17 00:55; Admin Dose 400 MLS/HR; Start at 06:30 IV Flush (NS 10 ml) 10 ml PRN PRN IV IV PROTOCOL; Start 01/10/17 at 11:30 Amiodarone HCl (Cordarone) 200 mg BID GTB Last administered on 01/26/17 09:09 ; Admin Dose 200 MG; Start 01/11/17 at 12:00 Epoetin Mina (Epogen (Esrd)) 10,000 units MoWeFr@17 SC Last administered on 17:19; Admin Dose 10,000 UNITS; Start 01/13/17 at 17:00 Metoprolol Tartrate (Lopressor) 25 mg BID PO Last administered on 01/26/17 09: 09; Admin Dose 25 MG; Start 01/15/17 at 15:00 Al Hydrox/Mg Hydrox/ Simethicone 30 ml 30 ml Q4 GTB Last administered on 09:09; Admin Dose 30 ML; Start 01/15/17 at 17:00 Caspofungin 50 mg/ Sodium Chloride 250 ml @ 250 mls/hr Q24H IVPB Last administered on 01/26/17 15:41; Admin Dose 250 MLS/HR; Start 01/17/17 at 14:30 Dextrose 1,000 ml @ 150 mls/hr Q6H40M IV Last administered on 01/26/17 14:52 ; Admin Dose 150 MLS/HR; Start 01/18/17 at 08:30 Metronidazole (Flagyl 500 Mg (Pmx)) 100 ml @ 100 mls/hr Q8 IVPB Last administered on 01/26/17 14:06; Admin Dose 100 MLS/HR; Start 01/20/17 at 14:00 Pantoprazole 40 mg 40 mg DAILY@06 PO Last administered on 01/26/17 05:01; Admin Dose 40 MG; Start 01/22/17 at 06:00 Cefepime HCl (Maxipime 1gm/50 ml (Pmx)) 50 ml @ 100 mls/hr Q24H IVPB Last administered on 01/26/17 13:27; Admin Dose 100 MLS/HR; Start 01/24/17 at 13:30 Lorazepam 1 mg 1 mg Q8H PRN IV seizure or anxiety Last administered on 18:02; Admin Dose 1 MG; Start 01/25/17 at 17:00 Vancomycin HCl 250 ml @ 125 mls/hr Q24H IVPB ; Start 01/27/17 at 15:00 Potassium Chloride (KCl 20 MEQ/50 ML SW) 50 ml @ 25 mls/hr Q2H IVPB Last administered on 01/26/17 16:14; Admin Dose 25 MLS/HR; Start 01/26/17 at 14:00; Stop 01/26/17 at 19:59 MYNOR MURPHY MD Jan 26, 2017 18:18
[2017-01-26 20:01] LABS: ADD UMIC NO; UR ASCORBIC ACID NEGATIVE (NEGATIVE); UR BILIRUBIN (Dip) NEGATIVE (NEGATIVE); UR BLOOD (Dip) NEGATIVE (NEGATIVE); UR CLARITY CLEAR (CLEAR); UR COLOR YELLOW (YELLOW); UR GLUCOSE (Dip) NEGATIVE (NEGATIVE); UR KETONES (Dip) NEGATIVE (NEGATIVE); UR LEUKOCYTE ESTERASE (Dip) NEGATIVE Leu/ul (NEGATIVE); UR NITRITE (Dip) NEGATIVE (NEGATIVE); UR SPECIFIC GRAVITY (Dip) 1.008 (1.003-1.030); UR TOTAL PROTEIN (Dip) NEGATIVE (NEGATIVE); UR UROBILINOGEN (Dip) NEGATIVE (NEGATIVE)
--- NOTE | 2017-01-26 20:22 | PN ---
Date/Time of Note Date/Time of Note DATE: 01/26/17 TIME: 20:22 Assessment/Plan Lines/Catheters IV Catheter Type (from Nrsg): PICC Line Matias in Place (from Nrsg): Yes Assessment/Plan Chief Complaint/Hosp Course This is a 61-year-old female who was admitted because of pneumonia was found for progressively worsening renal failure. SP tracheostomy Trach site clean We will continue vent support Trach care Pulmonary toilet Problems: Subjective 24 Hr Interval Summary Constitutional: improved Pain Control: mild Exam/Review of Systems Vital Signs Vitals Vital Signs Date Time Temp Pulse Resp B/P Pulse Ox O2 Delivery O2 Flow Rate FiO2 01/26/17 19:46 100.7 107 19 161/83 97 01/26/17 17:20 30 01/26/17 06:09 Mechanical Ventilator Intake and Output 01/25/17 01/25/17 01/26/17 15:00 23:00 07:00 Intake Total 1115 ml 1090 ml 1150 ml Output Total 1100 ml 500 ml 1700 ml Balance 15 ml 590 ml -550 ml Exam ENMT: mucosa pink and moist, nl external ears & nose, nl lips & teeth, nl nasal mucosa & septum Neck: non-tender, supple Respiratory: clear to auscultation, normal air movement Cardiovascular: nl pulses, regular rate and rhythm Gastrointestinal: nl liver, spleen, non-tender, soft Results Result Diagram: 01/26/17 0632 01/26/17 0632 SAM GUTIERREZ MD Jan 26, 2017 20:22
[2017-01-26] MEDS: ACETAMINOPHEN 650MG/20.3ML CUP NGT PRN (21:03)
[2017-01-27] VITALS (19 sets, daily range): BP systolic 133–165; BP diastolic 77–91; PULSE 91–109; RESP 16–28
[2017-01-27] MEDS: AL HYDROX/MG HYDROX/SIMETH 30 ML CUP GTB SCH ×4 (01:00→11:35)
[2017-01-27] MEDS: DEXTROSE 5% 1,000 ML IV SCH ×3 (02:37→10:41)
[2017-01-27] MEDS: ACETAMINOPHEN 650MG/20.3ML CUP NGT PRN ×2 (04:32→10:39)
[2017-01-27] MEDS: metroNIDAZOLE 500 MG/NS (PMX) 100 ML IVPB SCH ×2 (05:21→16:07)
[2017-01-27] MEDS: PANTOPRAZOLE (EC) 40 MG TAB PO SCH (05:22)
[2017-01-27] MEDS: BALSAM PERU/CASTOR OIL 60 GM TUBE TOP SCH (09:00)
[2017-01-27] MEDS ORDERED: METO-448 PO (09:35)
[2017-01-27] MEDS ORDERED: Vancomycin Iv Per Pharmacy XX (09:35)
[2017-01-27] MEDS ORDERED: PANT40TA4 PO (09:39)
[2017-01-27] MEDS ORDERED: VANC1FRO2 IV (09:40)
[2017-01-27] MEDS ORDERED: CEFE1PIG IVPB (09:41)
[2017-01-27] MEDS: AMIODARONE 200 MG TAB GTB SCH (10:39)
[2017-01-27] MEDS: METOPROLOL 25 MG TAB PO SCH (10:40)
[2017-01-27] MEDS: LEVETIRACETAM 1000 MG (PMX) 100 ML IVPB SCH (10:42)
[2017-01-27] MEDS: CEFEPIME 1GM/50 ML (PMX) 50 ML IVPB SCH (13:30)
--- NOTE | 2017-01-27 13:37 | CONS ---
Date/Time of Note Date/Time of Note DATE: 01/27/17 TIME: 13:30 Assessment/Plan Assessment/Plan Chief Complaint/Hosp Course 1. Acute renal failure. Her renal function is improving and she is now off hemodialysis. 2. She is ventilator dependent with a tracheostomy. She is being fed via PEG tube. 3. History of seizure disorder 4. History of psychiatric disorder. 5. Respiratory failure, ventilator dependent 6. Hypotension requiring pressors 7. Anemia 8. Paroxysmal atrial fibrillation. 9 acute pancreatitis due to common duct bile stone. Improve 10. Hypernatremia, she is getting IV D5W Problems: Consultation Date/Type/Reason Admit Date/Time Jan 04, 2017 at 19:10 Initial Consult Date 01/11/17 Type of Consultation: cv Referring Provider: YING CASTAÑEDA 24 HR Interval Summary Free Text/Dictation She is awake. She is on a ventilator via tracheostomy . She is receiving PEG tube feeding. Subjective hx not possible: pt non-verbal Exam/Review of Systems Vital Signs Vitals Vital Signs Date Time Temp Pulse Resp B/P Pulse Ox O2 Delivery O2 Flow Rate FiO2 01/27/17 12:51 91 01/27/17 11:30 26 99 30 01/27/17 11:22 101.1 143/87 01/27/17 06:00 Mechanical Ventilator Intake and Output 01/26/17 01/26/17 01/27/17 15:00 23:00 07:00 Intake Total 1030 ml 3280 ml 1410 ml Output Total 2200 ml 1500 ml Balance 1030 ml 1080 ml -90 ml Exam Constitutional: alert, non-verbal Respiratory: clear to auscultation, diminished breath sounds Cardiovascular: regular rate and rhythm Gastrointestinal: soft Musculoskeletal: nl extremities to inspection Results Result Diagram: 01/26/17 0632 01/26/17 0632 Results 24 hrs Laboratory Tests Test 01/26/17 15:30 Urine Color YELLOW Urine Clarity CLEAR Urine pH 7.0 Urine Specific [place] 1.008 Urine Ketones NEGATIVE Urine Nitrite NEGATIVE Urine Bilirubin NEGATIVE Urine Urobilinogen NEGATIVE Urine Leukocyte Esterase NEGATIVE Urine Hemoglobin NEGATIVE Urine Glucose NEGATIVE Urine Total Protein NEGATIVE Medications Medications Current Medications Ondansetron HCl (Zofran Inj) 4 mg Q6H PRN IV NAUSEA AND/OR VOMITING; Start 01/04 at 19:30 Acetaminophen/ Hydrocodone Bitart ([place] (5/325)) 1 tab Q6H PRN PO MODERATE PAIN LEVEL 4-6; Start 01/04/17 at 19:30 Morphine Sulfate (morphine) 2 mg Q4H PRN IV SEVERE PAIN LEVEL 7-10 Last administered on 01/25/17 12:50; Admin Dose 2 MG; Start 01/04/17 at 19:30 Docusate Sodium (Colace) 100 mg Q12H PRN PO CONSTIPATION; Start 01/04/17 at 19: 30 Magnesium Hydroxide (Milk Of Mag) 30 ml DAILY PRN PO CONSTIPATION; Start at 19:30 Sodium Biphosphate/ Sodium Phosphate (Fleet Enema) 133 ml DAILY PRN [place] CONSTIPATION; Start 01/04/17 at 19:30 Phenobarbital (Luminal) 64.8 mg BID PO Last administered on 01/04/17 23:45; Admin Dose 64.8 MG; Start 01/04/17 at 21:00; Status Future Hold Topiramate (Topamax) 200 mg BID PO ; Start 01/05/17 at 21:00; Status Future Hold Miscellaneous Information 1 ea NOTE XX ; Start 01/04/17 at 19:30 Glucose (Glutose) 15 gm Q15M PRN PO DECREASED GLUCOSE; Start 01/04/17 at 19:30 Glucose (Glutose) 22.5 gm Q15M PRN PO DECREASED GLUCOSE; Start 01/04/17 at 19:30 Dextrose (D50w Syringe) 25 ml Q15M PRN IV DECREASED GLUCOSE Last administered on 01/08/17 05:36; Admin Dose 25 ML; Start 01/04/17 at 19:30 Dextrose (D50w Syringe) 50 ml Q15M PRN IV DECREASED GLUCOSE; Start 01/04/17 at 19:30 Glucagon (Glucagen) 1 mg Q15M PRN IM DECREASED GLUCOSE; Start 01/04/17 at 19:30 Glucose (Glutose) 15 gm Q15M PRN BUCCAL DECREASED GLUCOSE; Start 01/04/17 at 19: 30 Phenytoin (Dilantin Susp Cup) 100 mg TID PO Last administered on 01/04/17 23:44 ; Admin Dose 100 MG; Start 01/04/17 at 21:50; Status Future Hold Clonazepam 0.5 mg 0.5 mg Q8H PO Last administered on 01/04/17 23:45; Admin Dose 0.5 MG; Start 01/04/17 at 23:00; Status Future Hold Levetiracetam (Keppra 1,000mg/ 100ml (Pmx)) 100 ml @ 400 mls/hr Q12 IVPB Last administered on 01/27/17 10:42; Admin Dose 400 MLS/HR; Start 01/05/17 at 11:30 Acetaminophen 650 mg 650 mg Q4H PRN NGT PAIN AND OR ELEVATED TEMP Last administered on 01/27/17 10:39; Admin Dose 650 MG; Start 01/06/17 at 04:30 Acetaminophen (Ofirmev 1000mg/ 100ml Iv) 100 ml @ 400 mls/hr Q6H PRN IVPB FEVER Last administered on 01/20/17 00:55; Admin Dose 400 MLS/HR; Start at 06:30 IV Flush (NS 10 ml) 10 ml PRN PRN IV IV PROTOCOL; Start 01/10/17 at 11:30 Amiodarone HCl (Cordarone) 200 mg BID GTB Last administered on 01/27/17 10:39 ; Admin Dose 200 MG; Start 01/11/17 at 12:00 Epoetin Mina (Epogen (Esrd)) 10,000 units MoWeFr@17 SC Last administered on 17:19; Admin Dose 10,000 UNITS; Start 01/13/17 at 17:00 Metoprolol Tartrate (Lopressor) 25 mg BID PO Last administered on 01/27/17 10: 40; Admin Dose 25 MG; Start 01/15/17 at 15:00 Al Hydrox/Mg Hydrox/ Simethicone 30 ml 30 ml Q4 GTB Last administered on 05:21; Admin Dose 30 ML; Start 01/15/17 at 17:00 Caspofungin 50 mg/ Sodium Chloride 250 ml @ 250 mls/hr Q24H IVPB Last administered on 01/26/17 15:41; Admin Dose 250 MLS/HR; Start 01/17/17 at 14:30 Dextrose 1,000 ml @ 150 mls/hr Q6H40M IV Last administered on 01/27/17 10:41 ; Admin Dose 150 MLS/HR; Start 01/18/17 at 08:30 Metronidazole (Flagyl 500 Mg (Pmx)) 100 ml @ 100 mls/hr Q8 IVPB Last administered on 01/27/17 05:21; Admin Dose 100 MLS/HR; Start 01/20/17 at 14:00 Pantoprazole 40 mg 40 mg DAILY@06 PO Last administered on 01/27/17 05:22; Admin Dose 40 MG; Start 01/22/17 at 06:00 Cefepime HCl (Maxipime 1gm/50 ml (Pmx)) 50 ml @ 100 mls/hr Q24H IVPB Last administered on 01/26/17 13:27; Admin Dose 100 MLS/HR; Start 01/24/17 at 13:30 Lorazepam 1 mg 1 mg Q8H PRN IV seizure or anxiety Last administered on 18:02; Admin Dose 1 MG; Start 01/25/17 at 17:00 Vancomycin HCl (Vancocin) 250 ml @ 125 mls/hr Q24H IVPB ; Start 01/27/17 at 15: 00 REENA SCHAEFER MD Jan 27, 2017 13:37
--- NOTE | 2017-01-27 13:43 | PN ---
Date/Time of Note Date/Time of Note DATE: 01/27/17 TIME: 13:42 Assessment/Plan Lines/Catheters IV Catheter Type (from Nrsg): PICC Line Matias in Place (from Nrsg): Yes Assessment/Plan Chief Complaint/Hosp Course This is a 61-year-old female who was admitted because of pneumonia was found for progressively worsening renal failure. SP tracheostomy Trach site clean We will continue vent support Trach care Pulmonary toilet Problems: Subjective 24 Hr Interval Summary Constitutional: improved Pain Control: mild Exam/Review of Systems Vital Signs Vitals Vital Signs Date Time Temp Pulse Resp B/P Pulse Ox O2 Delivery O2 Flow Rate FiO2 01/27/17 12:51 91 01/27/17 11:30 26 99 30 01/27/17 11:22 101.1 143/87 01/27/17 06:00 Mechanical Ventilator Intake and Output 01/26/17 01/26/17 01/27/17 15:00 23:00 07:00 Intake Total 1030 ml 3280 ml 1410 ml Output Total 2200 ml 1500 ml Balance 1030 ml 1080 ml -90 ml Exam ENMT: mucosa pink and moist, nl external ears & nose, nl lips & teeth, nl nasal mucosa & septum Respiratory: clear to auscultation, normal air movement Cardiovascular: nl pulses, regular rate and rhythm Gastrointestinal: nl liver, spleen, non-tender, soft Results Result Diagram: 01/26/17 0632 01/26/17 0632 SAM GUTIERREZ MD Jan 27, 2017 13:43
[2017-01-27 14:23] LABS: BASOPHIL # 0.1 10^3/ul (0.0-0.1); BASOPHILS % 0.5 % (0.0-2.0); EOSINOPHILS # 0.1 10^3/ul (0.0-0.5); HEMATOCRIT 26.7 % (37.0-47.0); HEMOGLOBIN 8.4 g/dl (12.0-16.0); LYMPHOCYTES # 0.9 10^3/ul (0.8-2.9); MEAN CORPUSCULAR HEMOGLOBIN 29.3 pg (29.0-33.0); MEAN CORPUSCULAR HGB CONC 31.5 g/dl (32.0-37.0); MEAN PLATELET VOLUME 9.6 fl (7.4-10.4); MONOCYTE # 0.7 10^3/ul (0.3-0.9); MONOCYTES % 6.2 % (0.0-11.0); NEUTROPHIL # 9.4 10^3/ul (1.6-7.5); NEUTROPHILS % 80.2 % (39.0-77.0); PLATELET COUNT 552 10^3/UL (140-415); RED BLOOD COUNT 2.87 10^6/ul (4.20-5.40); RED CELL DISTRIBUTION WIDTH 16.5 % (11.5-14.5); WHITE BLOOD COUNT 11.7 10^3/ul (4.8-10.8)
[2017-01-27 14:43] LABS: ALBUMIN 2.7 g/dl (3.3-4.9); ALBUMIN/GLOBULIN RATIO 0.61; BILIRUBIN,INDIRECT 0.2 mg/dl (0-1.1); BILIRUBIN,TOTAL 0.2 mg/dl (0.2-1.3); CALCIUM 7.3 mg/dl (8.4-10.2); CREATININE 1.19 mg/dl (0.44-1.00); POTASSIUM 3.3 mmol/L (3.5-5.1); TOTAL PROTEIN 7.1 g/dl (6.1-8.1)
--- NOTE | 2017-01-27 14:49 | CONS ---
Date/Time of Note Date/Time of Note DATE: 01/27/17 TIME: 14:48 Assessment/Plan Assessment/Plan Additional Assessment/Plan Paroxysmal atrial fibrillation, currently sinus rhythm Severe sepsis Acute pancreatitis status post ERCP Preserved ejection fraction Respiratory failure, vent dependent, status post tracheostomy Acute kidney injury now on hemodialysis Seizure disorder Psychiatric disorder Acute blood loss anemia GI bleed status post clipping - Would continue amiodarone to help maintain in sinus rhythm. No anticoagulation for atrial fibrillation given severe anemia and GI bleed. Fluid management as per our nephrology colleagues. Ideally, maintain potassium above 4.0 and magnesium above 2.0 to decrease arrhythmias. Consultation Date/Type/Reason Admit Date/Time Jan 04, 2017 at 19:10 Initial Consult Date 01/05/17 Type of Consultation: cv Referring Provider: YING CASTAÑEDA 24 HR Interval Summary Free Text/Dictation Patient seen and examined Exam/Review of Systems Vital Signs Vitals Vital Signs Date Time Temp Pulse Resp B/P Pulse Ox O2 Delivery O2 Flow Rate FiO2 01/27/17 13:52 98.4 01/27/17 13:35 101 28 95 30 01/27/17 11:22 143/87 01/27/17 06:00 Mechanical Ventilator Intake and Output 01/26/17 01/26/17 01/27/17 15:00 23:00 07:00 Intake Total 1030 ml 3280 ml 1410 ml Output Total 2200 ml 1500 ml Balance 1030 ml 1080 ml -90 ml Exam Awake, no apparent distress Head: normocephalic Neck: other (Tracheostomy) Respiratory: other (Coarse breath sounds bilaterally, no wheezing) Cardiovascular: other (S1-S2 heard), regular rate and rhythm Gastrointestinal: bowel sounds, non-tender, soft Extremities: edema Results Result Diagram: 01/27/17 1406 01/26/17 0632 Results 24 hrs Laboratory Tests Test 01/26/17 15:30 01/27/17 14:06 Urine Color YELLOW Urine Clarity CLEAR Urine pH 7.0 Urine Specific [place] 1.008 Urine Ketones NEGATIVE Urine Nitrite NEGATIVE Urine Bilirubin NEGATIVE Urine Urobilinogen NEGATIVE Urine Leukocyte Esterase NEGATIVE Urine Hemoglobin NEGATIVE Urine Glucose NEGATIVE Urine Total Protein NEGATIVE White Blood Count 11.7 H Red Blood Count 2.87 L Hemoglobin 8.4 L Hematocrit 26.7 L Mean Corpuscular Volume 93.0 Mean Corpuscular Hemoglobin 29.3 Mean Corpuscular Hemoglobin Concent 31.5 L Red Cell Distribution Width 16.5 H Platelet Count 552 H Mean Platelet Volume 9.6 Neutrophils % 80.2 H Lymphocytes % 8.0 L Monocytes % 6.2 Eosinophils % 1.0 Basophils % 0.5 Nucleated Red Blood Cells % 0.0 Neutrophils # 9.4 H Lymphocytes # 0.9 Monocytes # 0.7 Eosinophils # 0.1 Basophils # 0.1 Nucleated Red Blood Cells # 0.0 Medications Medications Current Medications Ondansetron HCl (Zofran Inj) 4 mg Q6H PRN IV NAUSEA AND/OR VOMITING; Start 01/04 at 19:30 Acetaminophen/ Hydrocodone Bitart ([place] (5/325)) 1 tab Q6H PRN PO MODERATE PAIN LEVEL 4-6; Start 01/04/17 at 19:30 Morphine Sulfate (morphine) 2 mg Q4H PRN IV SEVERE PAIN LEVEL 7-10 Last administered on 01/25/17 12:50; Admin Dose 2 MG; Start 01/04/17 at 19:30 Docusate Sodium (Colace) 100 mg Q12H PRN PO CONSTIPATION; Start 01/04/17 at 19: 30 Magnesium Hydroxide (Milk Of Mag) 30 ml DAILY PRN PO CONSTIPATION; Start at 19:30 Sodium Biphosphate/ Sodium Phosphate (Fleet Enema) 133 ml DAILY PRN [place] CONSTIPATION; Start 01/04/17 at 19:30 Phenobarbital (Luminal) 64.8 mg BID PO Last administered on 01/04/17 23:45; Admin Dose 64.8 MG; Start 01/04/17 at 21:00; Status Future Hold Topiramate (Topamax) 200 mg BID PO ; Start 01/05/17 at 21:00; Status Future Hold Miscellaneous Information 1 ea NOTE XX ; Start 01/04/17 at 19:30 Glucose (Glutose) 15 gm Q15M PRN PO DECREASED GLUCOSE; Start 01/04/17 at 19:30 Glucose (Glutose) 22.5 gm Q15M PRN PO DECREASED GLUCOSE; Start 01/04/17 at 19:30 Dextrose (D50w Syringe) 25 ml Q15M PRN IV DECREASED GLUCOSE Last administered on 01/08/17 05:36; Admin Dose 25 ML; Start 01/04/17 at 19:30 Dextrose (D50w Syringe) 50 ml Q15M PRN IV DECREASED GLUCOSE; Start 01/04/17 at 19:30 Glucagon (Glucagen) 1 mg Q15M PRN IM DECREASED GLUCOSE; Start 01/04/17 at 19:30 Glucose (Glutose) 15 gm Q15M PRN BUCCAL DECREASED GLUCOSE; Start 01/04/17 at 19: 30 Phenytoin (Dilantin Susp Cup) 100 mg TID PO Last administered on 01/04/17 23:44 ; Admin Dose 100 MG; Start 01/04/17 at 21:50; Status Future Hold Clonazepam 0.5 mg 0.5 mg Q8H PO Last administered on 01/04/17 23:45; Admin Dose 0.5 MG; Start 01/04/17 at 23:00; Status Future Hold Levetiracetam (Keppra 1,000mg/ 100ml (Pmx)) 100 ml @ 400 mls/hr Q12 IVPB Last administered on 01/27/17 10:42; Admin Dose 400 MLS/HR; Start 01/05/17 at 11:30 Acetaminophen 650 mg 650 mg Q4H PRN NGT PAIN AND OR ELEVATED TEMP Last administered on 01/27/17 10:39; Admin Dose 650 MG; Start 01/06/17 at 04:30 Acetaminophen (Ofirmev 1000mg/ 100ml Iv) 100 ml @ 400 mls/hr Q6H PRN IVPB FEVER Last administered on 01/20/17 00:55; Admin Dose 400 MLS/HR; Start at 06:30 IV Flush (NS 10 ml) 10 ml PRN PRN IV IV PROTOCOL; Start 01/10/17 at 11:30 Amiodarone HCl (Cordarone) 200 mg BID GTB Last administered on 01/27/17 10:39 ; Admin Dose 200 MG; Start 01/11/17 at 12:00 Epoetin Mina (Epogen (Esrd)) 10,000 units MoWeFr@17 SC Last administered on 17:19; Admin Dose 10,000 UNITS; Start 01/13/17 at 17:00 Metoprolol Tartrate (Lopressor) 25 mg BID PO Last administered on 01/27/17 10: 40; Admin Dose 25 MG; Start 01/15/17 at 15:00 Al Hydrox/Mg Hydrox/ Simethicone 30 ml 30 ml Q4 GTB Last administered on 05:21; Admin Dose 30 ML; Start 01/15/17 at 17:00 Caspofungin 50 mg/ Sodium Chloride 250 ml @ 250 mls/hr Q24H IVPB Last administered on 01/26/17 15:41; Admin Dose 250 MLS/HR; Start 01/17/17 at 14:30 Dextrose 1,000 ml @ 150 mls/hr Q6H40M IV Last administered on 01/27/17 10:41 ; Admin Dose 150 MLS/HR; Start 01/18/17 at 08:30 Metronidazole (Flagyl 500 Mg (Pmx)) 100 ml @ 100 mls/hr Q8 IVPB Last administered on 01/27/17 05:21; Admin Dose 100 MLS/HR; Start 01/20/17 at 14:00 Pantoprazole 40 mg 40 mg DAILY@06 PO Last administered on 01/27/17 05:22; Admin Dose 40 MG; Start 01/22/17 at 06:00 Cefepime HCl (Maxipime 1gm/50 ml (Pmx)) 50 ml @ 100 mls/hr Q24H IVPB Last administered on 01/26/17 13:27; Admin Dose 100 MLS/HR; Start 01/24/17 at 13:30 Lorazepam 1 mg 1 mg Q8H PRN IV seizure or anxiety Last administered on 18:02; Admin Dose 1 MG; Start 01/25/17 at 17:00 Vancomycin HCl (Vancocin) 250 ml @ 125 mls/hr Q24H IVPB ; Start 01/27/17 at 15: 00 Vlad Leyva DO Jan 27, 2017 14:49
[2017-01-27] MEDS ORDERED: VANCOMYCIN 1 GM in NS 250 ML IVPB SCH (15:00)
--- NOTE | 2017-01-27 15:47 | CONS ---
Date/Time of Note Date/Time of Note DATE: 01/27/17 TIME: 15:46 Consult Date/Type/Reason Admit Date/Time Jan 04, 2017 at 19:10 Initial Consult Date 01/05/17 Type of Consultation: Pulmonary Ordering Provider: YING CASTAÑEDA Subjective Patient awake alert oriented comfortable. Nocturnal fevers noted. Objective Vital Signs Date Time Temp Pulse Resp B/P Pulse Ox O2 Delivery O2 Flow Rate FiO2 01/27/17 15:28 99.8 88 16 149/87 100 01/27/17 13:35 30 01/27/17 06:00 Mechanical Ventilator Intake and Output 01/26/17 01/26/17 01/27/17 15:00 23:00 07:00 Intake Total 1030 ml 3280 ml 1410 ml Output Total 2200 ml 1500 ml Balance 1030 ml 1080 ml -90 ml Exam GENERAL: Elderly lady on mechanical ventilation via tracheostomy comfortable VITAL SIGNS: per chart NECK: Supple. No JVD or lymphadenopathy., Poor dentition CARDIAC EXAM: S1, S2. No added sounds or murmurs. CHEST: clear bilaterally, No added sounds, rales or wheezes ABDOMEN: Soft, nontender. No guarding or rebound. EXTREMITIES: No cyanosis, clubbing or edema. NEUROLOGIC: Generalized weakness. No focal deficits. Results/Medications Result Diagram: 01/27/17 1406 01/27/17 1406 Results 24 hrs Laboratory Tests Test 01/27/17 14:06 White Blood Count 11.7 H Red Blood Count 2.87 L Hemoglobin 8.4 L Hematocrit 26.7 L Mean Corpuscular Volume 93.0 Mean Corpuscular Hemoglobin 29.3 Mean Corpuscular Hemoglobin Concent 31.5 L Red Cell Distribution Width 16.5 H Platelet Count 552 H Mean Platelet Volume 9.6 Neutrophils % 80.2 H Lymphocytes % 8.0 L Monocytes % 6.2 Eosinophils % 1.0 Basophils % 0.5 Nucleated Red Blood Cells % 0.0 Neutrophils # 9.4 H Lymphocytes # 0.9 Monocytes # 0.7 Eosinophils # 0.1 Basophils # 0.1 Nucleated Red Blood Cells # 0.0 Sodium Level 134 L Potassium Level 3.3 L Chloride Level 99 # Carbon Dioxide Level 23 Anion Gap 15 Blood Urea Nitrogen 31 #H Creatinine 1.19 H Glucose Level 327 #H Calcium Level 7.3 L Total Bilirubin 0.2 Direct Bilirubin 0.00 Indirect Bilirubin 0.2 Aspartate Amino Transf (AST/SGOT) 28 Alanine Aminotransferase (ALT/SGPT) 24 Alkaline Phosphatase 358 H Total Protein 7.1 Albumin 2.7 L Globulin 4.40 H Albumin/Globulin Ratio 0.61 Medications Current Medications Ondansetron HCl (Zofran Inj) 4 mg Q6H PRN IV NAUSEA AND/OR VOMITING; Start 01/04 at 19:30 Acetaminophen/ Hydrocodone Bitart ([place] (5/325)) 1 tab Q6H PRN PO MODERATE PAIN LEVEL 4-6; Start 01/04/17 at 19:30 Morphine Sulfate (morphine) 2 mg Q4H PRN IV SEVERE PAIN LEVEL 7-10 Last administered on 01/25/17 12:50; Admin Dose 2 MG; Start 01/04/17 at 19:30 Docusate Sodium (Colace) 100 mg Q12H PRN PO CONSTIPATION; Start 01/04/17 at 19: 30 Magnesium Hydroxide (Milk Of Mag) 30 ml DAILY PRN PO CONSTIPATION; Start at 19:30 Sodium Biphosphate/ Sodium Phosphate (Fleet Enema) 133 ml DAILY PRN [place] CONSTIPATION; Start 01/04/17 at 19:30 Phenobarbital (Luminal) 64.8 mg BID PO Last administered on 01/04/17 23:45; Admin Dose 64.8 MG; Start 01/04/17 at 21:00; Status Future Hold Topiramate (Topamax) 200 mg BID PO ; Start 01/05/17 at 21:00; Status Future Hold Miscellaneous Information 1 ea NOTE XX ; Start 01/04/17 at 19:30 Glucose (Glutose) 15 gm Q15M PRN PO DECREASED GLUCOSE; Start 01/04/17 at 19:30 Glucose (Glutose) 22.5 gm Q15M PRN PO DECREASED GLUCOSE; Start 01/04/17 at 19:30 Dextrose (D50w Syringe) 25 ml Q15M PRN IV DECREASED GLUCOSE Last administered on 01/08/17 05:36; Admin Dose 25 ML; Start 01/04/17 at 19:30 Dextrose (D50w Syringe) 50 ml Q15M PRN IV DECREASED GLUCOSE; Start 01/04/17 at 19:30 Glucagon (Glucagen) 1 mg Q15M PRN IM DECREASED GLUCOSE; Start 01/04/17 at 19:30 Glucose (Glutose) 15 gm Q15M PRN BUCCAL DECREASED GLUCOSE; Start 01/04/17 at 19: 30 Phenytoin (Dilantin Susp Cup) 100 mg TID PO Last administered on 01/04/17 23:44 ; Admin Dose 100 MG; Start 01/04/17 at 21:50; Status Future Hold Clonazepam 0.5 mg 0.5 mg Q8H PO Last administered on 01/04/17 23:45; Admin Dose 0.5 MG; Start 01/04/17 at 23:00; Status Future Hold Levetiracetam (Keppra 1,000mg/ 100ml (Pmx)) 100 ml @ 400 mls/hr Q12 IVPB Last administered on 01/27/17 10:42; Admin Dose 400 MLS/HR; Start 01/05/17 at 11:30 Acetaminophen 650 mg 650 mg Q4H PRN NGT PAIN AND OR ELEVATED TEMP Last administered on 01/27/17 10:39; Admin Dose 650 MG; Start 01/06/17 at 04:30 Acetaminophen (Ofirmev 1000mg/ 100ml Iv) 100 ml @ 400 mls/hr Q6H PRN IVPB FEVER Last administered on 01/20/17 00:55; Admin Dose 400 MLS/HR; Start at 06:30 IV Flush (NS 10 ml) 10 ml PRN PRN IV IV PROTOCOL; Start 01/10/17 at 11:30 Amiodarone HCl (Cordarone) 200 mg BID GTB Last administered on 01/27/17 10:39 ; Admin Dose 200 MG; Start 01/11/17 at 12:00 Epoetin Mina (Epogen (Esrd)) 10,000 units MoWeFr@17 SC Last administered on 17:19; Admin Dose 10,000 UNITS; Start 01/13/17 at 17:00 Metoprolol Tartrate (Lopressor) 25 mg BID PO Last administered on 01/27/17 10: 40; Admin Dose 25 MG; Start 01/15/17 at 15:00 Al Hydrox/Mg Hydrox/ Simethicone 30 ml 30 ml Q4 GTB Last administered on 05:21; Admin Dose 30 ML; Start 01/15/17 at 17:00 Caspofungin 50 mg/ Sodium Chloride 250 ml @ 250 mls/hr Q24H IVPB Last administered on 01/26/17 15:41; Admin Dose 250 MLS/HR; Start 01/17/17 at 14:30 Dextrose 1,000 ml @ 150 mls/hr Q6H40M IV Last administered on 01/27/17 10:41 ; Admin Dose 150 MLS/HR; Start 01/18/17 at 08:30 Metronidazole (Flagyl 500 Mg (Pmx)) 100 ml @ 100 mls/hr Q8 IVPB Last administered on 01/27/17 05:21; Admin Dose 100 MLS/HR; Start 01/20/17 at 14:00 Pantoprazole 40 mg 40 mg DAILY@06 PO Last administered on 01/27/17 05:22; Admin Dose 40 MG; Start 01/22/17 at 06:00 Cefepime HCl (Maxipime 1gm/50 ml (Pmx)) 50 ml @ 100 mls/hr Q24H IVPB Last administered on 01/26/17 13:27; Admin Dose 100 MLS/HR; Start 01/24/17 at 13:30 Lorazepam 1 mg 1 mg Q8H PRN IV seizure or anxiety Last administered on 18:02; Admin Dose 1 MG; Start 01/25/17 at 17:00 Vancomycin HCl (Vancocin) 250 ml @ 125 mls/hr Q24H IVPB ; Start 01/27/17 at 15: 00 Assessment/Plan Chief Complaint/Hosp Course IMP: 1. Severe gallstone pancreatitis with septic shock, now slowly improving. Severe pancreatitis present on CT abdomen. 2. Metabolic acidosis secondary to above and ARF 3. Renal failure likely ATN now requiring hemodialysis 4. 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 Status post thoracentesis right lung. Ongoing pulmonary edema and atelectasis on chest x-ray although radiographically improved. 5. History of seizure disorder 6. Sepsis ongoing nocturnal fevers noted however WBC is now trending down. Clinically patient looks more stable. RECS: 1. Hemodialysis today per nephrology, improved renal function noted. Discussed with nephrology may soon no longer require hemodialysis. 2. Continue mechanical ventilation, status post tracheostomy continue trach site care, ventilator weaning once patient is more stable we will attempt CPAP weaning trial if remains stable 3. Broad-spectrum antibiotic coverage will discuss with infectious diseases 4. Continue tube feeding. 5. GI recommendations. Continue supportive care. 6. Continue DVT and GI prophylaxis 7. Monitor H&H Olmos transfer. Problems: AMPARO VALERIO MD, [facility] Jan 27, 2017 15:47
[2017-01-27] MEDS: CASPOFUNGIN 50 MG in SOD CHLORIDE 0.9% 250 ML IVPB SCH (16:22)
--- NOTE | 2017-01-30 12:08 | CONS ---
DATE OF ADMISSION: 01/04/2017 DATE OF CONSULTATION: SUBJECTIVE: The patient cannot complain. She is intubated, but she is alert. PHYSICAL EXAMINATION: VITAL SIGNS: Pulse 96, blood pressure 119/77. CARDIOVASCULAR: Tachycardia. ABDOMEN: Soft abdomen, minimal tenderness, minimal soreness of the upper abdomen is noted. LABORATORY WORKUP: 1. WBC count is 22,800, hemoglobin 9.1. 2. Amylase 174, lipase 409 as of yesterday. 3. Potassium 3.5, alk phos 51, bilirubin 0.5, AST 49, ALT 26. RADIOLOGY: 1. Chest x-ray shows vascular congestion. 2. Bilateral pleural effusion. IMPRESSION: 1. Pancreatitis status post endoscopic retrograde cholangiopancreatography status post EGD and hemoclipping of the possible bleeding site of the ampulla of [____] 1 week ago. 2. The patient's bleeding is stable now. PLAN: From the nutritional standpoint, I inserted a nasogastric tube. Hopefully, this will advance into the jejunum so that we can give the feeding. Dictated By: Chaitanya Green MD /gigi/tova /Document#: [id number]
== END 2017-01-27 16:45 | DRG 4 ==
LOC: E/R 14:35 → ICU 19:10 → TEL 01-25 20:15
PROVIDERS: ADMIT Hospitalist; ATTEND Hospitalist
PROC: 06HM33Z Insertion of Infusion Device into Right Femoral Vein, Percutaneous Approach (ICD-10-PCS; principal; 2017-01-04)
PROC: 5A1955Z Respiratory Ventilation, Greater than 96 Consecutive Hours (ICD-10-PCS; 2017-01-05)
PROC: 0BH17EZ Insertion of Endotracheal Airway into Trachea, Via Natural or Artificial Opening (ICD-10-PCS; 2017-01-05)
PROC: 30233N1 Transfusion of Nonautologous Red Blood Cells into Peripheral Vein, Percutaneous Approach (ICD-10-PCS; 2017-01-09)
PROC: 02HV33Z Insertion of Infusion Device into Superior Vena Cava, Percutaneous Approach (ICD-10-PCS; 2017-01-10)
PROC: 5A1D60Z (ICD-10-PCS; 2017-01-11)
PROC: 0FC98ZZ Extirpation of Matter from Common Bile Duct, Via Natural or Artificial Opening Endoscopic (ICD-10-PCS; 2017-01-11)
PROC: 0F798DZ Dilation of Common Bile Duct with Intraluminal Device, Via Natural or Artificial Opening Endoscopic (ICD-10-PCS; 2017-01-11)
PROC: 0W993ZZ Drainage of Right Pleural Cavity, Percutaneous Approach (ICD-10-PCS; 2017-01-13)
PROC: 30233K1 Transfusion of Nonautologous Frozen Plasma into Peripheral Vein, Percutaneous Approach (ICD-10-PCS; 2017-01-16)
PROC: 0W3P8ZZ Control Bleeding in Gastrointestinal Tract, Via Natural or Artificial Opening Endoscopic (ICD-10-PCS; 2017-01-16)
PROC: 0B110F4 Bypass Trachea to Cutaneous with Tracheostomy Device, Open Approach (ICD-10-PCS; 2017-01-20)
PROC: 0DHA3UZ Insertion of Feeding Device into Jejunum, Percutaneous Approach (ICD-10-PCS; 2017-01-21)
DX: A41.1 Sepsis due to other specified staphylococcus (principal); N17.0 Acute kidney failure with tubular necrosis; K72.00 Acute and subacute hepatic failure without coma; R65.21 Severe sepsis with septic shock; G93.41 Metabolic encephalopathy; J90 Pleural effusion, not elsewhere classified; J18.9 Pneumonia, unspecified organism; K85.10 Biliary acute pancreatitis without necrosis or infection; J96.01 Acute respiratory failure with hypoxia; E87.2 Acidosis; N39.0 Urinary tract infection, site not specified; K56.7 Ileus, unspecified; I47.1 Supraventricular tachycardia; D62 Acute posthemorrhagic anemia; K92.1 Melena; B37.49 Other urogenital candidiasis; B37.89 Other sites of candidiasis; T80.212A Local infection due to central venous catheter, initial encounter; R34 Anuria and oliguria; G40.909 Epilepsy, unspecified, not intractable, without status epilepticus; E87.6 Hypokalemia; E83.51 Hypocalcemia; B96.20 Unspecified Escherichia coli [E. coli] as the cause of diseases classified elsewhere; R14.0 Abdominal distension (gaseous); R13.10 Dysphagia, unspecified; R19.7 Diarrhea, unspecified
CPT/HCPCS: 32555; 36415; 36430; 36569; 36600; 70450; 71010; 71250; 74176; 74330; 76705; 76937; 80048; 80053; 80061; 80076; 80185; 80202; 80307; 81001; 81003; 82150; 82270; 82271; 82310; 82728; 82803; 82945; 82962; 83036; 83540; 83605; 83615; 83690; 83735; 84100; 84132; 84157; 84300; 84439; 84443; 84484; 85014; 85018; 85025; 85049; 85610; 85670; 85730; 86078; 86644; 86704; 86709; 86803; 86850; 86900; 86901; 86920; 87040; 87070; 87081; 87086; 87102; 87116; 87340; 88104; 88305; 89051; 89220; 90935; 93005; 93306; 94002; 94003; 94660; 94770; 96361; 96365; 96375; J1940; C1752; C2617; C9113; J0131; J0171; J0610; J0690; J0692; J0885; J1644; J1815; J1953; J2060; J2185; J2250; J2270; J2354; J2370; J2543; J2765; J2916; J2997; J3010; J3370; J3475; J3480; J7030; J7040; J7042; J7050; J7060; J7070; J7999; P9016; P9045; P9047; P9059; Q4081; Q9967

== ENCOUNTER 2017-02-21 15:16 | Day surgery (SDC) | payer OTHER ==
[~2017-02-21] VITALS: Ht 160 cm; Wt 65.2 kg
[~2017-02-21 15:16] MED LIST changes: +ACET325S NGT; +AMIO200T2 GTB; +AMO500 PO; +ASCO500S2 JT; +ATILIQ PO; +BALS60OI TOP; +CEFE1PIG IVPB; +CHLO1TOW TP; +CLON0.5T4 GTB; +CLON0.5T4 PO; +CLOT30CR35 TOP; +DEXT38GE15 BUCCAL; +DEXT38GE15 PO; +DEXT50DI2 INJ; +EPOE3000 SC; +GLUC1KIT IJ; +HYDR-906 GTB; +IMO2 GTB; +LANS30CA GTB; +LEVE10006 PO; +LEVE500S8 IVPB; +MAG-19 GTB; +MAGN400O4 PO; +METO-448 PO; +MORP10DI10 IV*; +NOVO3I SC; +NS IV*; +ONDA4SOL IV*; +PANT40TA4 PO; +PHE30 GTB; +PHEN125O2 PO; +PHEN64.8 PO; +TOPI200C PO; +UDCOL GTB; +VANC1FRO2 IV; +Vancomycin Iv Per Pharmacy XX; +ZINC220C5 PO
[2017-02-21 15:37] VITALS: Ht 160 cm; Wt 65.2 kg
[2017-02-21] MEDS ORDERED: IOHEXOL 300MG/ML 30 ML BTL INJ ONE (17:54)
[2017-02-21] MEDS ORDERED: MEPERIDINE 25 MG INJ IV PRN (18:30)
[2017-02-21] MEDS ORDERED: FENTAnyl 50 MCG/ML VIAL IV PRN ×3 (18:30)
[2017-02-21] MEDS ORDERED: LABETALOL HCL 20MG INJ IV PRN (18:30)
[2017-02-21] MEDS ORDERED: METOCLOPRAMIDE 10 MG INJ IV PRN (18:30)
[2017-02-21] MEDS ORDERED: EPHEDrine SULFATE 50 MG/5 ML SYG IV PRN (18:30)
[2017-02-21] MEDS ORDERED: MIDAZOLAM 1 MG/ML 2 ML INJ IV PRN (18:30)
[2017-02-21] MEDS ORDERED: hydrALAzine 20 MG INJ IV PRN (18:30)
[2017-02-21] MEDS ORDERED: ONDANSETRON 4 MG INJ IV PRN (18:30)
--- NOTE | 2017-02-21 18:30 | RADRPT ---
PROCEDURE: Intraoperative imaging for ERCP with fluoroscopy. CLINICAL INDICATION: Right upper quadrant pain. Intraoperative. TECHNIQUE: 4 images of the right upper quadrant of the abdomen were obtained in the operating room with an image intensifier. No radiologist was in attendance. 164 seconds of fluoroscopy time was used. COMPARISON: CT scan of the abdomen and pelvis dated 02/14/2017. FINDINGS: Images demonstrate the endoscope in position. Contrast was injected into the common bile duct. The common bile duct is dilated. A large filling defect is present in the common bile duct consistent with a stone. A stent was placed in the common bile duct. The pancreatic duct was not injected. IMPRESSION: 1. ERCP as described above. RPTAT: QQ .Larry Box MD, Date Time Electronically viewed and signed by .Larry Box MD, on 02/21/2017 18:30 .R/
[2017-02-21 18:39] VITALS: BP 139/78; PULSE 104; RESP 18
--- NOTE | 2017-02-21 18:40 | OPPN ---
Date/Time of Note Date/Time of Note DATE: 02/21/17 TIME: 18:36 Proc Note GI Procedure date: Feb 21, 2017 Pre-procedure Diagnosis pseudocyst of pancreas Post-procedure Diagnosis same with cut off sign of mid fung duct Operation Performed ercp performed an duct stent placed in to fung duct Surgeon: MYNOR MURPHY MD Anesthesiologist: YESENIA WEBSTER MD Estimated blood loss: none Transfusion Required: no Specimen: none Complications: no Pt Condition post procedure: stable Indications pseudocyst of pancreas needs pd stent Operative\Procedure Findings ercp done fung duct stent placed MYNOR MURPHY MD Feb 21, 2017 18:40
[2017-02-21 18:44] VITALS: BP 139/83; PULSE 100; RESP 18
[2017-02-21 18:49] VITALS: BP 133/77; PULSE 100; RESP 18
[2017-02-21 18:54] VITALS: BP 133/77; PULSE 100; RESP 18
[2017-02-21 18:59] VITALS: BP 132/76; PULSE 100; RESP 18
--- NOTE | 2017-02-22 04:46 | GILP ---
DATE OF PROCEDURE: 02/21/2017 PROCEDURE: Esophagogastroduodenoscopy. PREOP DIAGNOSIS: The patient is presenting with history of difficulty in swallowing. The patient is presenting with a history also of pseudocyst of the pancreas after she developed pancreatitis. She is currently being drained to percutaneously. However, the patient needs the stent to be drained, the pancreatic duct internally into the duodenum, endoluminal drainage. POSTOPERATIVE DIAGNOSIS: There is evidence of cutoff noted in the middle of the pancreatic duct, indicating pancreatic damage caused by the pancreatitis. At this time, a 7-Egyptian and a 12-cm long pancreatic duct stent was placed into the pancreatic duct. ANESTHESIOLOGIST: Dr. Burrell. DESCRIPTION OF PROCEDURE: After the informed written consent is obtained, the patient was intubated by anesthesiologist. While the patient was in the prone position, Pentax video side-viewing duodenoscope was inserted into the oropharynx and then into the esophagus. Subsequently into the stomach and duodenum, there was evidence of the feeding gastrojejunostomy tube noted in the right place. Also, when I entered into the duodenum, there was evidence of a CBD stent also noted in the place. At this time, cannulation was performed by using the Dreamtome. Pancreatic duct was cannulated, and the middle of the pancreatic duct, there seems to be a cutoff of the pancreatic duct, indicating there is a significant damage to the pancreatic duct cause with pancreatitis and pseudocyst. At this time, a guidewire was inserted through the Dreamtome into the pancreatic duct where beyond the cutoff, the cutoff of the pancreatic duct was noted. At this time, Dreamtome was removed. I put a 7-Egyptian, 12-cm long single pigtail pancreatic duct stent over the guidewire into the pancreatic duct and across the ampulla into the duodenum. Photographs were obtained. Post stent was found to be in proper position, and the procedure was terminated. PLAN: Recommend to continue to follow the patient closely. Dictated By: Chaitanya Green MD /gigi/tova /Document#: [id number] CC: Feng Solis MD;*[facility]*
== END 2017-02-21 19:26 ==
LOC: SDS 15:16
PROVIDERS: ATTEND Internal Medicine Gastroenterology
DX: K86.3 Pseudocyst of pancreas (principal); N18.9 Chronic kidney disease, unspecified; G40.909 Epilepsy, unspecified, not intractable, without status epilepticus
CPT/HCPCS: 43260; 74330; Q9967

== ENCOUNTER 2017-03-11 01:30 | Inpatient (IN) | payer OTHER ==
[~2017-03-11] VITALS: Ht 157.5 cm; Wt 64.2 kg
[2017-03-11] VITALS (22 sets, daily range): BP systolic 108–132; BP diastolic 64–79; PULSE 89–105; RESP 19–20; Ht 157.5 cm; Wt 64.2 kg
[~2017-03-11 01:30] MED LIST changes: -AMO500 PO; -CEFE1PIG IVPB; -CLON-429; -CLON0.5T4 PO; -LAMO200T18; -LEVE-5; -LEVE10006 PO; -PANT40TA4 PO; -PHEN100C; -PHEN64.8 PO; -TOPI200T8; -VANC1FRO2 IV; -Vancomycin Iv Per Pharmacy XX
[2017-03-11] MEDS ORDERED: PIPER-TAZO 3.375 GM IV (PMX) 100 ML IVPB ONE (03:00)
[2017-03-11] MEDS ORDERED: AL HYDROX/MG HYDROX/SIMETH 30 ML CUP GTB PRN (03:00)
[2017-03-11] MEDS ORDERED: GLUCOSE GEL 15 GRAM TUBE PO PRN ×2 (03:15)
[2017-03-11] MEDS ORDERED: GLUCAGON 1 MG INJ IM PRN (03:15)
[2017-03-11] MEDS ORDERED: GLUCOSE GEL 15 GRAM TUBE BUCCAL PRN (03:15)
[2017-03-11] MEDS ORDERED: DEXTROSE 50% 50 ML SYRINGE IV PRN ×2 (03:15)
[2017-03-11] MEDS ORDERED: SOD CHLORIDE 0.9% 1,000 ML IV SCH (03:29)
[2017-03-11] MEDS ORDERED: morphine 2 MG INJ IV PRN ×2 (03:30)
[2017-03-11] MEDS ORDERED: LOPERAMIDE 2 MG CAP GTB PRN (03:30)
[2017-03-11] MEDS ORDERED: ONDANSETRON 4 MG INJ IV PRN ×2 (03:30)
[2017-03-11] MEDS ORDERED: NACL 0.9% 3 ML SYG IV SCH (03:30)
[2017-03-11] MEDS ORDERED: MAGNESIUM HYDROXIDE 30ML CUP PO PRN (03:30)
[2017-03-11] MEDS ORDERED: ACETAMINOPHEN 650 MG SUPP PR PRN (03:30)
[2017-03-11] MEDS: LEVOFLOXACIN 500MG/D5W (PMX) 100 ML IVPB SCH (04:04)
[2017-03-11] MEDS: INSULIN ASPART [NOVOLOG] 3 ML PEN SC SCH ×3 (06:00→18:00)
[2017-03-11] MEDS ORDERED: LANSOPRAZOLE 30 MG CAP GTB SCH (06:00)
[2017-03-11] MEDS ORDERED: PANTOPRAZOLE 40 MG INJ IV SCH (06:00)
[2017-03-11] MEDS: clonAZEPAM 0.5 MG TAB GTB SCH ×3 (06:00→21:50)
[2017-03-11] MEDS: LORAZEPAM 2 MG INJ IV PRN (06:27)
--- NOTE | 2017-03-11 08:44 | HP ---
Date/Time of Note Date/Time of Note DATE: 03/11/17 TIME: 08:43 Assessment/Plan VTE Prophylaxis VTE Prophylaxis Intervention: SCD's Lines/Catheters IV [facility]from [facility] Mid [facility] Urinary Cath still in place: Yes Reason Cath still needed: urinary retention Assessment/Plan Assessment/Plan 61 yo F with recent long hospital stay for gallstone pancreatitis c/b pseudocyst formation requiring drainage transferred from [facility] as concern for change in characteristics of abd fluid collection. PLAN -general surgery following, IR v operative intervention -cont abx from [facility], consider ID consult though per verbal discussion with ID antifungal is for previous hx of vic isolated from abd drains and levo is for mastoiditis seen on [facility] imaging -cont AED -cont vent weaning, pulm following -cont TFs through PEG-->TFs ordered -cont ortiz for urinary retention HPI/ROS Admit Date/Time Admit Date/Time Mar 11, 2017 at 02:03 Hx of Present Illness CC inc size of abd fluid collection HPI 61 yo female with h/o AFib, recent prolonged hospital stay at [facility] 7.5-7.28 for septic shock 2/2 gall stone pancreatitis s/p ERCP w stent and pseudocyst formation warranting drainage. Course c/b LEONOR requiring temporary HD, respiratory failure now s/p trach, and dysphagia sp PEG . Pt transferred to [facility] for vent weaning where she had remained since. During her time at [facility] pt followed by GI for her pseudocyst. 8.8 it was drained by IR. 8.22 pt had ERCP notable large filling defect seen in CBD consistent with stone. Stent placed in CBD. 8.[address] guided drainage of R flank/abdominal fluid collection (200mL purulent fluid)-->drainage bag and catheter left behind. 9.[address] AP which releaved peripancreatic fluid collection persistent despite drainage placement on 02.28 and an area of attenuation suggestive of walled off necrosis. She was transferred back to [facility] for further management. Pt does not endorse pain though does not really respond to questions. PMH/Family/Social Past Surgical History Past Surgical Hx: other Social History was at [facility] for the past month Smoking Status: Never smoker Exam/Review of Systems Vital Signs Vitals Vital Signs Date Time Temp Pulse Resp B/P Pulse Ox O2 Delivery O2 Flow Rate FiO2 03/11/17 08:20 97 03/11/17 08:11 98.0 20 123/79 97 03/11/17 06:00 Mask 8.0 Trach Collar 03/11/17 02:35 28 Intake and Output 03/10/17 03/10/17 03/11/17 15:00 23:00 07:00 Intake Total 250 ml Output Total 25 ml Balance 225 ml Exam Exam nad EOMI trach site c/d/i no rashes abd with drain with yellow output no rashes no edema trach site c/d/i no leukocytosis. Cr nl, lipase elevated Medications Medications Current Medications Lorazepam (Ativan) 1 mg Q4H PRN IV agitation Last administered on 03/11/17t 06: 27; Admin Dose 1 MG; Start 03/11/17 at 03:00 Insulin Aspart (Novolog Insulin Pen) NOVOLOG *MODERATE* ALGORI... Q6 SC ; Start 03/11/17 at 06:00 Acetaminophen (Tylenol Liquid) 650 mg Q4H PRN GTB PAIN AND OR ELEVATED TEMP; Start 03/11/17 at 03:00 Al Hydrox/Mg Hydrox/Simethicone (Mag-Al Plus) 30 ml Q4H PRN GTB GASTROINTESTINAL UPSET; Start 03/11/17 at 03:00 Amiodarone HCl (Cordarone) 200 mg DAILY GTB ; Start 03/11/17 at 09:00 Clonazepam (Klonopin) 0.5 mg Q8 GTB ; Start 03/11/17 at 06:00 Clotrimazole (Lotrimin Cr) 1 applic AM TOP ; Start 03/11/17 at 09:00 Docusate Sodium (Colace Liquid Cup) 100 mg BID GTB ; Start 03/11/17 at 09:00 Epoetin Mina (Epogen (Esrd)) 1,000 units MoWeFr@17 SC ; Start 03/13/17 at 17:00 Fluconazole (Diflucan) 100 mg DAILY GTB ; Start 03/11/17 at 09:00 Miscellaneous Information 1 ea NOTE XX ; Start 03/11/17 at 03:15 Glucose (Glutose) 15 gm Q15M PRN PO DECREASED GLUCOSE; Start 03/11/17 at 03:15 Glucose (Glutose) 22.5 gm Q15M PRN PO DECREASED GLUCOSE; Start 03/11/17 at 03:15 Dextrose (D50w Syringe) 25 ml Q15M PRN IV DECREASED GLUCOSE; Start 03/11/17 at 03:15 Dextrose (D50w Syringe) 50 ml Q15M PRN IV DECREASED GLUCOSE; Start 03/11/17 at 03:15 Glucagon (Glucagen) 1 mg Q15M PRN IM DECREASED GLUCOSE; Start 03/11/17 at 03:15 Glucose (Glutose) 15 gm Q15M PRN BUCCAL DECREASED GLUCOSE; Start 03/11/17 at 03: 15 Acetaminophen/ Hydrocodone Bitart ([place] (5/325)) 1 tab Q6H PRN GTB pain; Start 03/11/17 at 03:30 Ondansetron HCl (Zofran Inj) 4 mg Q6H PRN IV NAUSEA AND/OR VOMITING; Start 03/11 at 03:30 Phenobarbital (Luminal) 64.8 mg BID PO ; Start 03/11/17 at 09:00 Phenytoin (Dilantin Susp Cup) 100 mg TID GTB ; Start 03/11/17 at 09:00 Topiramate 200 mg 200 mg BID PO ; Start 03/11/17 at 09:00 Levetiracetam 100 ml @ 400 mls/hr Q12 IVPB ; Start 03/11/17 at 09:00 Levofloxacin/ Dextrose (Levaquin 500mg/ D5W 100 ml (Pmx)) 100 ml @ 100 mls/hr Q24H IVPB Last administered on 03/11/17 04:04; Admin Dose 100 MLS/HR; Start 03/11/17 at 03:30 Loperamide HCl (Imodium Cap) 2 mg Q6H PRN GTB diarrhea; Start 03/11/17 at 03:30 Magnesium Hydroxide (Milk Of Mag) 30 ml DAILY PRN PO CONSTIPATION; Start at 03:30 Metoprolol Tartrate (Lopressor) 25 mg BID GTB ; Start 03/11/17 at 09:00 Morphine Sulfate 2 mg 2 mg Q4H PRN IV pain; Start 03/11/17 at 03:30 Sodium Chloride (NS) 1,000 ml @ 75 mls/hr [id number] IV Last administered on 04:02; Admin Dose 75 MLS/HR; Start 03/11/17 at 03:29 Ondansetron HCl (Zofran Inj) 4 mg Q6H PRN IV NAUSEA AND/OR VOMITING; Start 03/11 at 03:30 Acetaminophen (Tylenol Supp) 650 mg Q6H PRN [place] PAIN LEVEL 1-3 OR FEVER; Start 03/11/17 at 03:30 Morphine Sulfate (morphine) 2 mg Q4H PRN IV PAIN LEVEL 7-10; Start 03/11/17 at 03:30 Pantoprazole (Protonix Iv) 40 mg DAILY@06 IV Last administered on 03/11/17t 06: 20; Admin Dose 40 MG; Start 03/11/17 at 06:00 OMAIRA OLIVERA MD Mar 11, 2017 08:44
[2017-03-11 08:57] LABS: BASOPHIL # 0.1 10^3/ul (0.0-0.1); BASOPHILS % 0.8 % (0.0-2.0); EOSINOPHILS # 0.1 10^3/ul (0.0-0.5); EOSINOPHILS % 1.1 % (0.0-7.0); HEMATOCRIT 39.3 % (37.0-47.0); HEMOGLOBIN 12.7 g/dl (12.0-16.0); LYMPHOCYTES # 2.1 10^3/ul (0.8-2.9); LYMPHOCYTES % 21.6 % (15.0-51.0); MEAN CORPUSCULAR HEMOGLOBIN 30.3 pg (29.0-33.0); MEAN CORPUSCULAR HGB CONC 32.3 g/dl (32.0-37.0); MEAN CORPUSCULAR VOLUME 93.8 fl (82.0-101.0); MONOCYTE # 0.8 10^3/ul (0.3-0.9); MONOCYTES % 8.3 % (0.0-11.0); NEUTROPHILS % 67.7 % (39.0-77.0); PLATELET COUNT 428 10^3/UL (140-415); RED BLOOD COUNT 4.19 10^6/ul (4.20-5.40); RED CELL DISTRIBUTION WIDTH 16.2 % (11.5-14.5); WHITE BLOOD COUNT 9.8 10^3/ul (4.8-10.8)
[2017-03-11] MEDS: AMIODARONE 200 MG TAB GTB SCH (09:00)
[2017-03-11] MEDS: PHENOBARBITAL 32.4 MG TAB PO SCH ×2 (09:00→21:49)
[2017-03-11] MEDS: DOCUSATE SODIUM 10 MG/ML (10ML CUP) GTB SCH ×2 (09:00→21:49)
[2017-03-11] MEDS: METOPROLOL 25 MG TAB GTB SCH ×2 (09:00→21:50)
[2017-03-11] MEDS: FLUCONAZOLE 100 MG TAB GTB SCH (09:00)
[2017-03-11] MEDS: TOPIRAMATE 100 MG TAB PO SCH ×2 (09:00→21:51)
[2017-03-11] MEDS: PHENYTOIN (100 MG/4 ML) CUP GTB SCH ×3 (09:00→21:49)
[2017-03-11 09:24] LABS: ALBUMIN 3.5 g/dl (3.3-4.9); ALBUMIN/GLOBULIN RATIO 0.66; CALCIUM 9.3 mg/dl (8.4-10.2); CREATININE 0.55 mg/dl (0.44-1.00); POTASSIUM 4.3 mmol/L (3.5-5.1); TOTAL PROTEIN 8.8 g/dl (6.1-8.1)
[2017-03-11 09:25] LABS: CHOL/HDL RATIO 6.7 RATIO
[2017-03-11] MEDS: CLOTRIMAZOLE 1% 30 GM CR TOP SCH (09:38)
[2017-03-11] MEDS: LEVETIRACETAM 1000 MG (PMX) 100 ML IVPB SCH ×2 (09:38→21:57)
[2017-03-11] MEDS: BALSAM PERU/CASTOR OIL 60 GM TUBE TOP SCH (09:39)
--- NOTE | 2017-03-11 12:11 | CONS ---
Date/Time of Note Date/Time of Note DATE: 03/11/17 TIME: 12:10 Assessment/Plan Assessment/Plan Additional Assessment/Plan [facility] INPATIENT CONSULTATION NOTE DATE OF SERVICE: 03/11/2017 PLACE OF SERV[facility] ASS[facility] AND PLAN: A very-pleasant 61-year-old lady with a very complicated history and set of comorbidities, presenting with large pancreatic pseudocyst that has already been drained. The appearance of the pseudocyst appears to be relatively benign, but I believe that we can improve her clinical picture by readjusting the left drain to span further cephalad. With extra sideholes, I believe that we will be able to drain this area better. The rest of the pseudocyst appears to be significantly smaller in size and at this time, I do not see any indication for acute surgical intervention. I tried explaining this to the patient, but I am not certain how much of it she understood. Communication was severely limited given the patient's trach and uncertainty of how much French she understood. There were no family members present in the room either. With above assessment, I've recommended the followin. Continue current cares 2. I will discuss plans for left-sided drain adjustment with interventional radiology and schedule in the next available elective time slot 3. Please keep in-house until the Thank you very much for having me involved in the care of this very pleasant patient and wonderful family. If you have any questions, please feel free to contact me at [phone]. Nature of presenting problem: High severity Please note that, given the extensive number of diagnoses or management options , the extensive amount and/or complexity of data needed to be reviewed, and high risk of complications and/or morbidity or mortality, this qualifies as high complexity type of decision-making. Disclaimer: Inadvertent spelling and grammatical errors are likely due to EHR/ dictation software use and do not reflect on the quality of delivered patient care. Also, please note that the electronic time recorded on this node does not necessarily reflect the actual time of the visit. Updated clinical summary: Very pleasant but unfortunate 61-year-old lady with multiple comorbidities and recent severe pancreatitis complicated by pseudocyst, as well as need for tracheostomy placement and tube feeding, hospitalized for the last 2-3 months, presenting with ongoing issues with pancreatic pseudocyst. Comorbidities: 1. BMI 25.9 2. Severe pancreatitis complicated by pseudocyst formation requiring drainage, as well as need for tracheostomy and PEG. Prolonged hospitalization followed by prolonged subacute care stay; prolonged hospital stay at [facility], 01/04/2017 01/27/2017 requiring multiple interventions such as ERCP as well as temporary hemodialysis for acute kidney injury, respiratory failure requiring tracheostomy and PEG placement; transferred to [facility] for vent weaning since discharge on 01/27/[address]-guided left flank pseudocyst drainage by interventional radiology 02/07/2017 [facility] 4. Status post ERCP with large filling defects seen in common bile duct consistent with a stone; status post stent placement in common bile duct 2016 [facility] 5. Status post CT-guided drainage of right flank fluid collection (removal of 200 cc of purulent fluid) 02/28/2017 [facility] CONSULTATION REQUESTED BY: Jaz Vela MD and Loni Green MD HISTORY OF PRESENT ILLNESS: The patient is a very pleasant 61-year-old lady with a very complicated history and set of comorbidities, presenting with large pancreatic pseudocyst that has already been drained. I was kindly asked consult regarding management of her pancreatic pseudocyst. Patient herself is essentially noncommunicative given the tracheostomy and inability to talk. Virtually all of my information with the exception of the physical exam was gathered to careful review of the significant amount of medical records that are available in her care as well as discussions with colleagues. Recently, patient has not had significant issues with abdominal pain and apparently has been tolerating her tube feeds. The drainage catheters have been putting out purulent type fluid. No other major known issues other than above stated chronic problems. ALLERGIES: NO KNOWN DRUG ALLERGIES MEDICATIONS Documented in the electronic records and reviewed by me. Please see the electronic records for details, as well as details for inpatient medications which were also reviewed by me. SOCIAL HISTORY: The patient has been in [facility] since discharge from [facility].-Tob;-ETOH;-IVDU FAMILY HISTORY: There are no significant medical, surgical or oncologic issues in the family as reported by the patient or reflected in the chart. REVIEW OF SYSTEMS: Unable to obtain given patient's condition. PHYSICAL EXAMINATION GENERAL: The patient appears to be a very pleasant lady of non- /[place] descent lying in bed, appearing stated age, and otherwise in no acute distress. BMI: 25.9 VITAL SIGNS: AVSS (please also see auto important data if available as well as the electronic records) HEENT: Normocephalic and atraumatic. Extraocular muscles and hearing are grossly intact bilaterally and symmetrically. Sclerae are nonicteric. Oral cavity is clear; oral mucosa appear to be pink and moist. Dentition: fair. NECK: Supple. There is no lymphadenopathy or JVD. There is no submental, submandibular or supraclavicular lymphadenopathy. Tracheostomy is in place. Patient on the vent. CHEST: Rises symmetrically with each breath; patient is breathing comfortably. There are no audible wheezes, rales or rhonchi on the gross exam. HEART: Pulse is regular and palpable on the right wrist. Capillary refill is normal. Carotid pulses are palpable bilaterally and symmetrically in the neck. EXTREMITIES: Lower extremities contain no pitting edema around the ankles bilaterally and symmetrically. ABDOMEN: Abdomen is soft, essentially nontender and nondistended. No evidence of ascites, organomegaly, caput medusae, engorged subcutaneous veins, or other abnormalities. There are no peritoneal signs or guarding. Percutaneous drains with purulent appearing fluid within the bag and tubing. SKIN: Appears to be pink and feels warm to touch. NEUROLOGIC: Awake, alert, and follows commands appropriately. LABORATORY DATA: See below IMAGING: See electronic chart. Please note that I've personally reviewed all pertinent available images and I agree in general with their overall reported findings. Consultation Date/Type/Reason Admit Date/Time Mar 11, 2017 at 02:03 Past Surgical History Past Surgical Hx: other Social History Smoking Status: Never smoker Exam/Review of Systems Vital Signs Vitals Vital Signs Date Time Temp Pulse Resp B/P Pulse Ox O2 Delivery O2 Flow Rate FiO2 03/11/17 08:20 97 03/11/17 08:11 98.0 20 123/79 97 03/11/17 06:00 Mask 8.0 Trach Collar 03/11/17 02:35 28 Intake and Output 03/10/17 03/10/17 03/11/17 15:00 23:00 07:00 Intake Total 250 ml Output Total 25 ml Balance 225 ml Results Result Diagram: 03/11/17 0831 03/11/17 0830 Results 24 hrs Laboratory Tests Test 03/11/17 06:22 03/11/17 08:30 03/11/17 08:31 Bedside Glucose 91 Sodium Level 137 Potassium Level 4.3 Chloride Level 103 Carbon Dioxide Level 23 Anion Gap 15 Blood Urea Nitrogen 19 Creatinine 0.55 Glucose Level 87 Lactic Acid Level 2.0 Calcium Level 9.3 Total Bilirubin 0.0 L Direct Bilirubin 0.00 Indirect Bilirubin 0.0 Aspartate Amino Transf (AST/SGOT) 47 H Alanine Aminotransferase (ALT/SGPT) 49 Alkaline Phosphatase 390 H Total Protein 8.8 H Albumin 3.5 Globulin 5.30 H Albumin/Globulin Ratio 0.66 Triglycerides Level 179 H Cholesterol Level 190 LDL Cholesterol, Calculated 126 HDL Cholesterol 28 L Cholesterol/HDL Ratio 6.7 White Blood Count 9.8 Red Blood Count 4.19 L Hemoglobin 12.7 Hematocrit 39.3 Mean Corpuscular Volume 93.8 Mean Corpuscular Hemoglobin 30.3 Mean Corpuscular Hemoglobin Concent 32.3 Red Cell Distribution Width 16.2 H Platelet Count 428 #H Mean Platelet Volume 10.0 Neutrophils % 67.7 Lymphocytes % 21.6 Monocytes % 8.3 Eosinophils % 1.1 Basophils % 0.8 Nucleated Red Blood Cells % 0.0 Neutrophils # (Manual) 6.6 Lymphocytes # 2.1 Monocytes # 0.8 Eosinophils # 0.1 Basophils # 0.1 Nucleated Red Blood Cells # 0.0 Hemoglobin A1c 4.6 Lipase 643 H Thyroid Stimulating Hormone (TSH) 2.240 Medications Medications Current Medications Lorazepam (Ativan) 1 mg Q4H PRN IV agitation Last administered on 03/11/17t 06: 27; Admin Dose 1 MG; Start 03/11/17 at 03:00 Insulin Aspart (Novolog Insulin Pen) NOVOLOG *MODERATE* ALGORI... Q6 SC ; Start 03/11/17 at 06:00 Acetaminophen (Tylenol Liquid) 650 mg Q4H PRN GTB PAIN AND OR ELEVATED TEMP; Start 03/11/17 at 03:00 Al Hydrox/Mg Hydrox/Simethicone (Mag-Al Plus) 30 ml Q4H PRN GTB GASTROINTESTINAL UPSET; Start 03/11/17 at 03:00 Amiodarone HCl (Cordarone) 200 mg DAILY GTB ; Start 03/11/17 at 09:00 Clonazepam (Klonopin) 0.5 mg Q8 GTB ; Start 03/11/17 at 06:00 Clotrimazole (Lotrimin Cr) 1 applic AM TOP Last administered on 03/11/17t 09:38 ; Admin Dose 1 APPLIC; Start 03/11/17 at 09:00 Docusate Sodium (Colace Liquid Cup) 100 mg BID GTB ; Start 03/11/17 at 09:00 Epoetin Mina (Epogen (Esrd)) 1,000 units MoWeFr@17 SC ; Start 03/13/17 at 17:00 Fluconazole (Diflucan) 100 mg DAILY GTB ; Start 03/11/17 at 09:00 Miscellaneous Information 1 ea NOTE XX ; Start 03/11/17 at 03:15 Glucose (Glutose) 15 gm Q15M PRN PO DECREASED GLUCOSE; Start 03/11/17 at 03:15 Glucose (Glutose) 22.5 gm Q15M PRN PO DECREASED GLUCOSE; Start 03/11/17 at 03:15 Dextrose (D50w Syringe) 25 ml Q15M PRN IV DECREASED GLUCOSE; Start 03/11/17 at 03:15 Dextrose (D50w Syringe) 50 ml Q15M PRN IV DECREASED GLUCOSE; Start 03/11/17 at 03:15 Glucagon (Glucagen) 1 mg Q15M PRN IM DECREASED GLUCOSE; Start 03/11/17 at 03:15 Glucose (Glutose) 15 gm Q15M PRN BUCCAL DECREASED GLUCOSE; Start 03/11/17 at 03: 15 Acetaminophen/ Hydrocodone Bitart ([place] (5/325)) 1 tab Q6H PRN GTB pain; Start 03/11/17 at 03:30 Ondansetron HCl (Zofran Inj) 4 mg Q6H PRN IV NAUSEA AND/OR VOMITING; Start 03/11 at 03:30 Phenobarbital (Luminal) 64.8 mg BID PO ; Start 03/11/17 at 09:00 Phenytoin (Dilantin Susp Cup) 100 mg TID GTB ; Start 03/11/17 at 09:00 Topiramate 200 mg 200 mg BID PO ; Start 03/11/17 at 09:00 Levetiracetam 100 ml @ 400 mls/hr Q12 IVPB Last administered on 03/11/17t 09:38 ; Admin Dose 400 MLS/HR; Start 03/11/17 at 09:00 Levofloxacin/ Dextrose (Levaquin 500mg/ D5W 100 ml (Pmx)) 100 ml @ 100 mls/hr Q24H IVPB Last administered on 03/11/17 04:04; Admin Dose 100 MLS/HR; Start 03/11/17 at 03:30 Loperamide HCl (Imodium Cap) 2 mg Q6H PRN GTB diarrhea; Start 03/11/17 at 03:30 Magnesium Hydroxide (Milk Of Mag) 30 ml DAILY PRN PO CONSTIPATION; Start at 03:30 Metoprolol Tartrate (Lopressor) 25 mg BID GTB ; Start 03/11/17 at 09:00 Morphine Sulfate 2 mg 2 mg Q4H PRN IV pain; Start 03/11/17 at 03:30 Sodium Chloride (NS) 1,000 ml @ 75 mls/hr [id number] IV Last administered on 04:02; Admin Dose 75 MLS/HR; Start 03/11/17 at 03:29 Ondansetron HCl (Zofran Inj) 4 mg Q6H PRN IV NAUSEA AND/OR VOMITING; Start 03/11 at 03:30 Acetaminophen (Tylenol Supp) 650 mg Q6H PRN [place] PAIN LEVEL 1-3 OR FEVER; Start 03/11/17 at 03:30 Morphine Sulfate (morphine) 2 mg Q4H PRN IV PAIN LEVEL 7-10; Start 03/11/17 at 03:30 Pantoprazole (Protonix Iv) 40 mg DAILY@06 IV Last administered on 03/11/17 06: 20; Admin Dose 40 MG; Start 03/11/17 at 06:00 KIM BELLAMY M.D. Mar 11, 2017 12:11
--- NOTE | 2017-03-11 15:21 | CONS ---
DATE OF ADMISSION: 03/11/2017 DATE OF CONSULTATION: 03/11/2017 HISTORY OF PRESENT ILLNESS: Patient Kelli is a 61-year-old lady with multiple medical problems including gallstone pancreatitis, status post septic shock, respiratory failure requiring trach and PEG placement, status post acute kidney injury, paroxysmal atrial fibrillation, transferred from [facility] to [facility] for ventilator weaning. Yesterday was noted to have persistent peripancreatic collection despite pigtail catheter. Large collection remains and per report may be walled off with necrosis. In addition, she has small pleural effusion on the left with bibasilar atelectasis. PAST MEDICAL HISTORY: As above. MEDICATION: Per chart. ALLERGIES: NONE. SOCIAL HISTORY: Nonsmoker. No alcohol. No history of drug use. FAMILY HISTORY: Noncontributory. REVIEW OF SYSTEMS: A 12-point review of systems currently unable to perform. PHYSICAL EXAMINATION: Elderly appearing lady, appears comfortable at rest. No acute distress. VITAL SIGNS: Temperature 98, blood pressure 123/79, O2 sat 98% on cool aerosol. Trach site clean, intact. CARDIAC: S1, S2. No added sounds or murmurs. CHEST: Diminished air entry bilaterally. ABDOMEN: Soft, nontender. No guarding or rebound. EXTREMITIES: No cyanosis, clubbing or edema. NEUROLOGIC: Generalized weakness. LABORATORY: White count 9.8, hemoglobin 12.7, platelets 428,000. Chemistry within normal limits except alk phos elevated at 390. Lipase remains elevated at 643. IMPRESSION: 1. Persistent peripancreatic fluid collection in a patient with a history of severe gallstone pancreatitis complicated by septic shock. 2. Chronic respiratory failure, now with tracheostomy. 3. Dysphagia with G-tube 4. Paroxysmal atrial fibrillation. PLAN: 1. Continue cool aerosol. 2. Pulmonary toilet. 3. General Surgery evaluation and recommendations. 4. Possible further pigtail catheter drainage. 5. DVT and GI prophylaxis. Dictated By: Louie Dietrich MD /gigi/laurence /Document#: [id number]
--- NOTE | 2017-03-11 18:23 | PN ---
DATE: 03/11/2017 SUBJECTIVE DATA: The patient was transfer from [facility] to telemetry for persistent abdominal fluid collection. She is awake, in no distress and afebrile. Temperature pulse 99, respirations 20, blood pressure 123/79, saturation 97 on 8 L trach collar. LABORATORY AND DIAGNOSTIC DATA: WBC 9.8, H and H 12.7 and 29.3, platelets 428, lipase 643. Sodium 137, potassium 4.3, BUN 19, creatinine 0.55. Alk phos 390, total bili 0. ANTIMICROBIALS: 1. Levaquin. 2. Fluconazole. INDWELLING: Trach, PEG, Matias, left-sided intra-abdominal drainage catheter. PHYSICAL EXAMINATION: GENERAL: This is a well-developed, fragile, chronically ill- appearing, elderly woman, who is awake, in no distress. HEENT: Head atraumatic, normocephalic. Sclerae anicteric. Buccal mucosa dry. NECK: Supple. CHEST: Rise symmetrical. Breath sounds diminished at the bases. HEART: S1, S2. ABDOMEN: Soft, bowel sounds present. EXTREMITIES: Without cyanosis. ASSESSMENT: 1. Severe pancreatitis complicated by pseudocyst formation 2. Left-sided mastoiditis, remains on Levaquin. 4. Chronic respiratory failure. 5. Dysphagia. 6. History of severe sepsis with shock. 7. History of urinary tract infection. PLAN: The patient remains stable. She is being seen by Dr. Cherry, pending CT guided drainage Dictated By: Darcy Matthews NP /gigi/lory /Document#: [id number] GAVIN
[2017-03-11] MEDS: HYDROCODONE/APAP (5/325) TAB GTB PRN (21:57)
--- NOTE | 2017-03-11 23:56 | CONS ---
Date/Time of Note Date/Time of Note DATE: 03/11/17 TIME: 23:56 Assessment/Plan Assessment/Plan Chief Complaint/Hosp Course 1. Peripancreatic fluid collection: chas drain in place -continue drain to bulb suction -per gi/hepatology recs: pending drain adjustment -abx per sensitivity 2. Mastoiditis -cont abx 3. Hx. of respiratory failure with trach -supportive -pulmonary toilet 4. Dysphagia with PEG placement -cont tf with aspiration precautions 5. Thrombocytosis: likely 2/2 #1 -supportive -as above 6. Elevated alk phos: likely 2/2 above -as above 7. Confusion/agitation: currently pulling at tubes and drains, on restraints -supportive -attempt less restrictive measures and dc restraint as able Thank you. Patient seen and examined in collaboration with Dr. Vladimir Kirkpatrick. Problems: Consultation Date/Type/Reason Admit Date/Time Mar 11, 2017 at 02:03 Date of Consultation: Mar 11, 2017 Type of Consultation: gen surgery Hx of Present Illness Sakina Pereira is a 61 yo woman who is known to us from [place]. She has multiple comorbidities and extensive medical history. Most notably, she had gall stone pancreatitis s/p ERCP w stent and pseudocyst formation s/p IR drainage. She also had recent history of stent placement in CBD, left flank psuedocyst s/p ir drain and IR drainage of R flank/abdominal fluid collection. She was transferred to [facility] due to persistent peripancreatic fluid collection despite drainage placement with possible area of necrosis. The drain is currently with creamy output. She has no fevers, chills, change in mentation, sob or abdominal pain. General surgery was asked to evaluate. Constitutional: No chills, No febrile Eyes: No visual change ENT: No congestion Respiratory: No cough, No shortness of breath Cardiovascular: No chest pain, No edema, No lightheadedness Gastrointestinal: No diarrhea, No pain, No vomiting Genitourinary: No dysuria, No hematuria Musculoskeletal: No bone/joint pain Skin: No bruising, No rash, No skin lesions Neurologic: confusion, No seizure Psychological: other (agitated) Past Medical History Pancreatitis choledocholithiasis lauren respiratory failure Past Surgical History tracheostomy peg placement ercp with stent placement psuedocyst and fluid collection ir drainage Past Surgical Hx: other Family History Significant Family History: no pertinent family hx Social History Alcohol Use: none Smoking Status: Never smoker Drug Use: none Exam/Review of Systems Vital Signs Vitals Vital Signs Date Time Temp Pulse Resp B/P Pulse Ox O2 Delivery O2 Flow Rate FiO2 03/11/17 23:54 98.3 106 20 112/68 99 03/11/17 19:46 5.0 28 03/11/17 19:46 Aerosol T Tube Intake and Output 03/10/17 03/10/17 03/11/17 15:00 23:00 07:00 Intake Total 250 ml Output Total 25 ml Balance 225 ml Exam Constitutional: alert, No distress, No oriented Psych: nl mood/affect, no complaints Head: atraumatic, normocephalic Eyes: nl lids, nl sclera ENMT: mucosa pink and moist Neck: non-tender, supple Respiratory: normal air movement, No congested cough Cardiovascular: nl pulses, regular rate and rhythm Gastrointestinal: non-tender, other (peg, left flank drain with creamy drainage in bag), soft, No distended Musculoskeletal: muscle weakness, nl extremities to inspection Extremities: normal pulses, No edema Neurological: confused, No nl mental status Skin: No rash or lesions Results Result Diagram: 03/11/17 0831 03/11/17 0830 Results 24 hrs Laboratory Tests Test 03/11/17 06:22 03/11/17 08:30 03/11/17 08:31 03/11/17 13:03 Bedside Glucose 91 87 Sodium Level 137 Potassium Level 4.3 Chloride Level 103 Carbon Dioxide Level 23 Anion Gap 15 Blood Urea Nitrogen 19 Creatinine 0.55 Glucose Level 87 Lactic Acid Level 2.0 Calcium Level 9.3 Total Bilirubin 0.0 L Direct Bilirubin 0.00 Indirect Bilirubin 0.0 Aspartate Amino Transf (AST/SGOT) 47 H Alanine Aminotransferase (ALT/SGPT) 49 Alkaline Phosphatase 390 H Total Protein 8.8 H Albumin 3.5 Globulin 5.30 H Albumin/Globulin Ratio 0.66 Triglycerides Level 179 H Cholesterol Level 190 LDL Cholesterol, Calculated 126 HDL Cholesterol 28 L Cholesterol/HDL Ratio 6.7 White Blood Count 9.8 Red Blood Count 4.19 L Hemoglobin 12.7 Hematocrit 39.3 Mean Corpuscular Volume 93.8 Mean Corpuscular Hemoglobin 30.3 Mean Corpuscular Hemoglobin Concent 32.3 Red Cell Distribution Width 16.2 H Platelet Count 428 #H Mean Platelet Volume 10.0 Neutrophils % 67.7 Lymphocytes % 21.6 Monocytes % 8.3 Eosinophils % 1.1 Basophils % 0.8 Nucleated Red Blood Cells % 0.0 Neutrophils # (Manual) 6.6 Lymphocytes # 2.1 Monocytes # 0.8 Eosinophils # 0.1 Basophils # 0.1 Nucleated Red Blood Cells # 0.0 Hemoglobin A1c 4.6 Lipase 643 H Thyroid Stimulating Hormone (TSH) 2.240 Medications Medications Current Medications Lorazepam (Ativan) 1 mg Q4H PRN IV agitation Last administered on 03/11/17 06: 27; Admin Dose 1 MG; Start 03/11/17 at 03:00 Insulin Aspart (Novolog Insulin Pen) NOVOLOG *MODERATE* ALGORI... Q6 SC ; Start 03/11/17 at 06:00 Acetaminophen (Tylenol Liquid) 650 mg Q4H PRN GTB PAIN AND OR ELEVATED TEMP; Start 03/11/17 at 03:00 Al Hydrox/Mg Hydrox/Simethicone (Mag-Al Plus) 30 ml Q4H PRN GTB GASTROINTESTINAL UPSET; Start 03/11/17 at 03:00 Amiodarone HCl (Cordarone) 200 mg DAILY GTB ; Start 03/11/17 at 09:00 Clonazepam (Klonopin) 0.5 mg Q8 GTB Last administered on 03/11/17 21:50; Admin Dose 0.5 MG; Start 03/11/17 at 06:00 Clotrimazole (Lotrimin Cr) 1 applic AM TOP Last administered on 03/11/17 09:38 ; Admin Dose 1 APPLIC; Start 03/11/17 at 09:00 Docusate Sodium (Colace Liquid Cup) 100 mg BID GTB Last administered on 21:49; Admin Dose 100 MG; Start 03/11/17 at 09:00 Epoetin Mina (Epogen (Esrd)) 1,000 units MoWeFr@17 SC ; Start 03/13/17 at 17:00 Fluconazole (Diflucan) 100 mg DAILY GTB ; Start 03/11/17 at 09:00 Miscellaneous Information 1 ea NOTE XX ; Start 03/11/17 at 03:15 Glucose (Glutose) 15 gm Q15M PRN PO DECREASED GLUCOSE; Start 03/11/17 at 03:15 Glucose (Glutose) 22.5 gm Q15M PRN PO DECREASED GLUCOSE; Start 03/11/17 at 03:15 Dextrose (D50w Syringe) 25 ml Q15M PRN IV DECREASED GLUCOSE; Start 03/11/17 at 03:15 Dextrose (D50w Syringe) 50 ml Q15M PRN IV DECREASED GLUCOSE; Start 03/11/17 at 03:15 Glucagon (Glucagen) 1 mg Q15M PRN IM DECREASED GLUCOSE; Start 03/11/17 at 03:15 Glucose (Glutose) 15 gm Q15M PRN BUCCAL DECREASED GLUCOSE; Start 03/11/17 at 03: 15 Acetaminophen/ Hydrocodone Bitart ([place] (5/325)) 1 tab Q6H PRN GTB pain Last administered on 03/11/17 21:57; Admin Dose 1 TAB; Start 03/11/17 at 03:30 Ondansetron HCl (Zofran Inj) 4 mg Q6H PRN IV NAUSEA AND/OR VOMITING; Start 03/11 at 03:30 Phenobarbital (Luminal) 64.8 mg BID PO Last administered on 03/11/17 21:49; Admin Dose 64.8 MG; Start 03/11/17 at 09:00 Phenytoin (Dilantin Susp Cup) 100 mg TID GTB Last administered on 03/11/17 21: 49; Admin Dose 100 MG; Start 03/11/17 at 09:00 Topiramate 200 mg 200 mg BID PO Last administered on 03/11/17 21:51; Admin Dose 200 MG; Start 03/11/17 at 09:00 Levetiracetam 100 ml @ 400 mls/hr Q12 IVPB Last administered on 03/11/17 21:57 ; Admin Dose 400 MLS/HR; Start 03/11/17 at 09:00 Levofloxacin/ Dextrose (Levaquin 500mg/ D5W 100 ml (Pmx)) 100 ml @ 100 mls/hr Q24H IVPB Last administered on 03/11/17 04:04; Admin Dose 100 MLS/HR; Start 03/11/17 at 03:30 Loperamide HCl (Imodium Cap) 2 mg Q6H PRN GTB diarrhea; Start 03/11/17 at 03:30 Magnesium Hydroxide (Milk Of Mag) 30 ml DAILY PRN PO CONSTIPATION; Start at 03:30 Metoprolol Tartrate (Lopressor) 25 mg BID GTB Last administered on 03/11/17t 21: 50; Admin Dose 25 MG; Start 03/11/17 at 09:00 Ondansetron HCl (Zofran Inj) 4 mg Q6H PRN IV NAUSEA AND/OR VOMITING; Start 03/11 at 03:30 Acetaminophen (Tylenol Supp) 650 mg Q6H PRN [place] PAIN LEVEL 1-3 OR FEVER; Start 03/11/17 at 03:30 JOSE LUIS ORO NP Mar 11, 2017 23:56
[2017-03-12] VITALS (14 sets, daily range): BP systolic 108–126; BP diastolic 58–74; PULSE 95–102; RESP 18–20
[2017-03-12] MEDS ORDERED: ACCU-CHEK XX SCH (02:00)
[2017-03-12] MEDS: LEVOFLOXACIN 500MG/D5W (PMX) 100 ML IVPB SCH (03:52)
[2017-03-12] MEDS: INSULIN ASPART [NOVOLOG] 3 ML PEN SC SCH ×4 (06:00→17:55)
[2017-03-12] MEDS: clonAZEPAM 0.5 MG TAB GTB SCH ×3 (06:28→21:12)
[2017-03-12] MEDS: HYDROCODONE/APAP (5/325) TAB GTB PRN ×2 (06:28→21:27)
[2017-03-12 07:57] LABS: BASOPHIL # 0.1 10^3/ul (0.0-0.1); BASOPHILS % 0.6 % (0.0-2.0); EOSINOPHILS # 0.1 10^3/ul (0.0-0.5); EOSINOPHILS % 0.4 % (0.0-7.0); HEMATOCRIT 35.4 % (37.0-47.0); HEMOGLOBIN 11.3 g/dl (12.0-16.0); LYMPHOCYTES # 1.6 10^3/ul (0.8-2.9); LYMPHOCYTES % 13.4 % (15.0-51.0); MEAN CORPUSCULAR HEMOGLOBIN 30.1 pg (29.0-33.0); MEAN CORPUSCULAR HGB CONC 31.9 g/dl (32.0-37.0); MEAN CORPUSCULAR VOLUME 94.1 fl (82.0-101.0); MEAN PLATELET VOLUME 8.5 fl (7.4-10.4); MONOCYTE # 0.8 10^3/ul (0.3-0.9); MONOCYTES % 6.5 % (0.0-11.0); NEUTROPHILS % 78.7 % (39.0-77.0); PLATELET COUNT 528 10^3/UL (140-415); RED BLOOD COUNT 3.76 10^6/ul (4.20-5.40); RED CELL DISTRIBUTION WIDTH 16.1 % (11.5-14.5); WHITE BLOOD COUNT 11.7 10^3/ul (4.8-10.8)
[2017-03-12 08:16] LABS: ALBUMIN 3.1 g/dl (3.3-4.9); ALBUMIN/GLOBULIN RATIO 0.64; BILIRUBIN,INDIRECT 0.1 mg/dl (0-1.1); BILIRUBIN,TOTAL 0.1 mg/dl (0.2-1.3); CALCIUM 8.9 mg/dl (8.4-10.2); CREATININE 0.5 mg/dl (0.44-1.00); POTASSIUM 4.2 mmol/L (3.5-5.1); TOTAL PROTEIN 7.9 g/dl (6.1-8.1)
[2017-03-12] MEDS: DOCUSATE SODIUM 10 MG/ML (10ML CUP) GTB SCH ×2 (09:00→21:00)
[2017-03-12] MEDS: TOPIRAMATE 100 MG TAB PO SCH ×2 (09:36→21:13)
[2017-03-12] MEDS: PHENOBARBITAL 32.4 MG TAB PO SCH ×2 (09:36→21:12)
[2017-03-12] MEDS: PHENYTOIN (100 MG/4 ML) CUP GTB SCH ×3 (09:36→21:12)
[2017-03-12] MEDS: FLUCONAZOLE 100 MG TAB GTB SCH (09:38)
[2017-03-12] MEDS: AMIODARONE 200 MG TAB GTB SCH (09:38)
[2017-03-12] MEDS: LEVETIRACETAM 1000 MG (PMX) 100 ML IVPB SCH ×2 (09:39→21:36)
[2017-03-12] MEDS: METOPROLOL 25 MG TAB GTB SCH ×2 (09:39→21:13)
[2017-03-12] MEDS: BALSAM PERU/CASTOR OIL 60 GM TUBE TOP SCH (09:39)
[2017-03-12] MEDS: CLOTRIMAZOLE 1% 30 GM CR TOP SCH (09:39)
--- NOTE | 2017-03-12 10:37 | PN ---
Date/Time of Note Date/Time of Note DATE: 03/12/17 TIME: 10:36 Assessment/Plan Lines/Catheters IV Catheter Type (from Nrs): Mid Line Matias in Place (from Nrs): Yes Assessment/Plan Assessment/Plan [facility] Progress Note Date of Service: 03/12/2017 Place of service: [facility] fifth floor telemetry Today's Assessment & Plan: Overall stable. Very complicated picture with pancreatic pseudocyst. [ Fortunately, no indication for acute surgical intervention currently.] We could improve the clinical picture by repositioning the left abdominal drain with extra sideholes in order to span more of the abscess site. Ultimately, some patients will require operative debridement. Given patient's complicated clinical picture, I would like to have us try and avoid that if possible. I had a long discussion with the patient's brother (Sheron) over the phone and discussed all of the above in detail. I also gave him my phone number so that the family has access to me throughout the care. Answered all questions. Family appear to understand and agreed with plans. He has noted that this is a very difficult situation for the patient since she does not speak any Russian and she is in restraints on a ventilator and being tube fed. Other than epilepsy, the patient does not have any history of previous cognitive impairment. He would be very helpful to mobilize around the patient and to try and have as many encounters with [place] speaking nurses and providers as possible. I also encouraged the family to be involved in serve as a bridge between the medical team and the patient. Previous assessment that applies today: A very-pleasant 61-year-old lady with a very complicated history and set of comorbidities, presenting with large pancreatic pseudocyst that has already been drained. The appearance of the pseudocyst appears to be relatively benign , but I believe that we can improve her clinical picture by readjusting the left drain to span further cephalad. With extra sideholes, I believe that we will be able to drain this area better. The rest of the pseudocyst appears to be significantly smaller in size and at this time, I do not see any indication for acute surgical intervention. I tried explaining this to the patient, but I am not certain how much of it she understood. Communication was severely limited given the patient's trach and uncertainty of how much Russian she understood. With above assessment, I've recommended the followin. Continue current cares 2. I will discuss plans for left-sided drain adjustment with interventional radiology and schedule in the next available elective time slot 3. Please keep in-house 4. Labs in a.m. 5. Please make every effort to have as many encounters with Kittitian speaking nurses and providers to assist with communicating with the patient and keep the family closely involved Thank you very much for having me involved in the care of this very pleasant patient and wonderful family. If you have any questions, please feel free to contact me at [phone]. Nature of presenting problem: High severity Please note that, given the extensive number of diagnoses or management options , the extensive amount and/or complexity of data needed to be reviewed, and high risk of complications and/or morbidity or mortality, this qualifies as high complexity type of decision-making. Disclaimer: Inadvertent spelling and grammatical errors are likely due to EHR/ dictation software use and do not reflect on the quality of delivered patient care. Also, please note that the electronic time recorded on this node does not necessarily reflect the actual time of the visit. Updated clinical summary: Very pleasant but unfortunate 61-year-old lady with multiple comorbidities and recent severe pancreatitis complicated by pseudocyst, as well as need for tracheostomy placement and tube feeding, hospitalized for the last 2-3 months, presenting with ongoing issues with pancreatic pseudocyst. Comorbidities: 1. BMI 25.9 2. Severe pancreatitis complicated by pseudocyst formation requiring drainage, as well as need for tracheostomy and PEG. Prolonged hospitalization followed by prolonged subacute care stay; prolonged hospital stay at [facility], 01/04/2017 01/27/2017 requiring multiple interventions such as ERCP as well as temporary hemodialysis for acute kidney injury, respiratory failure requiring tracheostomy and PEG placement; transferred to [place] for vent weaning since discharge on 01/27/[address]-guided left flank pseudocyst drainage by interventional radiology 02/07/2017 [facility] 4. Status post ERCP with large filling defects seen in common bile duct consistent with a stone; status post stent placement in common bile duct 2016 [facility] 5. Status post CT-guided drainage of right flank fluid collection (removal of 200 cc of purulent fluid) 02/28/2017 [facility] Subjective: [No major reported events or complaints]; [no major or obvious reported abd pain and seems to be under control with medications; no n/v/d; no sob or cp; ? flatus; + reported BM; minimal activity (patient remains in soft restraints)] Objective: Vitals: See below I's & O's: See below Exam: GENERAL: On exam, the patient was lying in bed and appeared to be [comfortable and in no acute distress]. ABDOMEN: [Soft, nontender and nondistended.] Drain outputs appeared to be purulent in both drains. [There are no peritoneal signs or guarding.] SKIN: Skin appears to be pink and feels warm to touch. NEUROLOGIC: Patient is [awake, alert, and does not appear to be following commands appropriately, likely due to language barriers.] Labs: See below Exam/Review of Systems Vital Signs Vitals Vital Signs Date Time Temp Pulse Resp B/P Pulse Ox O2 Delivery O2 Flow Rate FiO2 03/12/17 08:50 100 5.0 28 03/12/17 08:50 93 20 Aerosol 03/12/17 07:53 98.0 114/69 Intake and Output 03/11/17 03/11/17 03/12/17 14:59 22:59 06:59 Intake Total 0 ml 800 ml Output Total 600 ml 600 ml Balance -600 ml 200 ml Results Result Diagram: 03/12/17 0729 03/12/17 0729 KIM BELLAMY M.D. Mar 12, 2017 10:37
--- NOTE | 2017-03-12 15:07 | CONS ---
Date/Time of Note Date/Time of Note DATE: 03/12/17 TIME: 15:06 Consult Date/Type/Reason Admit Date/Time Mar 11, 2017 at 02:03 Initial Consult Date Type of Consultation: Pulm Subjective Comfortable no new events. Objective Vital Signs Date Time Temp Pulse Resp B/P Pulse Ox O2 Delivery O2 Flow Rate FiO2 03/12/17 13:25 90 20 100 Aerosol 5.0 28 03/12/17 12:31 98.0 115/69 Intake and Output 03/11/17 03/11/17 03/12/17 15:00 23:00 07:00 Intake Total 0 ml 800 ml Output Total 600 ml 600 ml Balance -600 ml 200 ml Exam PHYSICAL EXAMINATION: Elderly appearing lady, appears comfortable at rest. No acute distress. VITAL SIGNS: on cool aerosol. Trach site clean, intact. CARDIAC: S1, S2. No added sounds or murmurs. CHEST: Diminished air entry bilaterally. ABDOMEN: Soft, nontender. No guarding or rebound. EXTREMITIES: No cyanosis, clubbing or edema. NEUROLOGIC: Generalized weakness. Results/Medications Result Diagram: 03/12/17 0729 03/12/17 0729 Results 24 hrs Laboratory Tests Test 03/11/17 23:59 03/12/17 06:24 03/12/17 07:29 Bedside Glucose 108 125 White Blood Count 11.7 H Red Blood Count 3.76 L Hemoglobin 11.3 L Hematocrit 35.4 L Mean Corpuscular Volume 94.1 Mean Corpuscular Hemoglobin 30.1 Mean Corpuscular Hemoglobin Concent 31.9 L Red Cell Distribution Width 16.1 H Platelet Count 528 #H Mean Platelet Volume 8.5 Neutrophils % 78.7 H Lymphocytes % 13.4 L Monocytes % 6.5 Eosinophils % 0.4 Basophils % 0.6 Nucleated Red Blood Cells % 0.0 Neutrophils # (Manual) 9.2 H Lymphocytes # 1.6 Monocytes # 0.8 Eosinophils # 0.1 Basophils # 0.1 Nucleated Red Blood Cells # 0.0 Sodium Level 136 Potassium Level 4.2 Chloride Level 107 Carbon Dioxide Level 23 Anion Gap 10 # Blood Urea Nitrogen 18 Creatinine 0.50 Glucose Level 93 Calcium Level 8.9 Magnesium Level 1.8 Total Bilirubin 0.1 L Direct Bilirubin 0.00 Indirect Bilirubin 0.1 Aspartate Amino Transf (AST/SGOT) 107 H Alanine Aminotransferase (ALT/SGPT) 78 H Alkaline Phosphatase 389 H Total Protein 7.9 Albumin 3.1 L Globulin 4.80 H Albumin/Globulin Ratio 0.64 Medications Current Medications Lorazepam (Ativan) 1 mg Q4H PRN IV agitation Last administered on 03/11/17 06: 27; Admin Dose 1 MG; Start 03/11/17 at 03:00 Insulin Aspart (Novolog Insulin Pen) NOVOLOG *MODERATE* ALGORI... Q6 SC ; Start 03/11/17 at 06:00 Acetaminophen (Tylenol Liquid) 650 mg Q4H PRN GTB PAIN AND OR ELEVATED TEMP; Start 03/11/17 at 03:00 Al Hydrox/Mg Hydrox/Simethicone (Mag-Al Plus) 30 ml Q4H PRN GTB GASTROINTESTINAL UPSET; Start 03/11/17 at 03:00 Amiodarone HCl (Cordarone) 200 mg DAILY GTB Last administered on 03/12/17 09: 38; Admin Dose 200 MG; Start 03/11/17 at 09:00 Clonazepam (Klonopin) 0.5 mg Q8 GTB Last administered on 03/12/17 13:41; Admin Dose 0.5 MG; Start 03/11/17 at 06:00 Clotrimazole (Lotrimin Cr) 1 applic AM TOP Last administered on 03/12/17 09:39 ; Admin Dose 1 APPLIC; Start 03/11/17 at 09:00 Docusate Sodium (Colace Liquid Cup) 100 mg BID GTB Last administered on 21:49; Admin Dose 100 MG; Start 03/11/17 at 09:00 Epoetin Mina (Epogen (Esrd)) 1,000 units MoWeFr@17 SC ; Start 03/13/17 at 17:00 Fluconazole (Diflucan) 100 mg DAILY GTB Last administered on 03/12/17 09:38; Admin Dose 100 MG; Start 03/11/17 at 09:00 Miscellaneous Information 1 ea NOTE XX ; Start 03/11/17 at 03:15 Glucose (Glutose) 15 gm Q15M PRN PO DECREASED GLUCOSE; Start 03/11/17 at 03:15 Glucose (Glutose) 22.5 gm Q15M PRN PO DECREASED GLUCOSE; Start 03/11/17 at 03:15 Dextrose (D50w Syringe) 25 ml Q15M PRN IV DECREASED GLUCOSE; Start 03/11/17 at 03:15 Dextrose (D50w Syringe) 50 ml Q15M PRN IV DECREASED GLUCOSE; Start 03/11/17 at 03:15 Glucagon (Glucagen) 1 mg Q15M PRN IM DECREASED GLUCOSE; Start 03/11/17 at 03:15 Glucose (Glutose) 15 gm Q15M PRN BUCCAL DECREASED GLUCOSE; Start 03/11/17 at 03: 15 Acetaminophen/ Hydrocodone Bitart ([place] (5/325)) 1 tab Q6H PRN GTB pain Last administered on 03/12/17 06:28; Admin Dose 1 TAB; Start 03/11/17 at 03:30 Ondansetron HCl (Zofran Inj) 4 mg Q6H PRN IV NAUSEA AND/OR VOMITING; Start 03/11 at 03:30 Phenobarbital (Luminal) 64.8 mg BID PO Last administered on 03/12/17 09:36; Admin Dose 64.8 MG; Start 03/11/17 at 09:00 Phenytoin (Dilantin Susp Cup) 100 mg TID GTB Last administered on 03/12/17 13: 41; Admin Dose 100 MG; Start 03/11/17 at 09:00 Topiramate 200 mg 200 mg BID PO Last administered on 03/12/17 09:36; Admin Dose 200 MG; Start 03/11/17 at 09:00 Levetiracetam 100 ml @ 400 mls/hr Q12 IVPB Last administered on 03/12/17 09: 39; Admin Dose 400 MLS/HR; Start 03/11/17 at 09:00 Levofloxacin/ Dextrose (Levaquin 500mg/ D5W 100 ml (Pmx)) 100 ml @ 100 mls/hr Q24H IVPB Last administered on 03/12/17 03:52; Admin Dose 100 MLS/HR; Start at 03:30 Loperamide HCl (Imodium Cap) 2 mg Q6H PRN GTB diarrhea; Start 03/11/17 at 03:30 Magnesium Hydroxide (Milk Of Mag) 30 ml DAILY PRN PO CONSTIPATION; Start at 03:30 Metoprolol Tartrate (Lopressor) 25 mg BID GTB Last administered on 03/12/17 09 :39; Admin Dose 25 MG; Start 03/11/17 at 09:00 Ondansetron HCl (Zofran Inj) 4 mg Q6H PRN IV NAUSEA AND/OR VOMITING; Start 03/11 at 03:30 Acetaminophen (Tylenol Supp) 650 mg Q6H PRN SC PAIN LEVEL 1-3 OR FEVER; Start 03/11/17 at 03:30 Assessment/Plan Chief Complaint/Hosp Course IMPRESSION: 1. Persistent peripancreatic fluid collection in a patient with a history of severe gallstone pancreatitis complicated by septic shock. 2. Chronic respiratory failure, now with tracheostomy. 3. Dysphagia with G-tube 4. Paroxysmal atrial fibrillation. PLAN: 1. Continue cool aerosol. 2. Pulmonary toilet. 3. General Surgery evaluation and recommendations noted. 4. Possible further pigtail catheter drainage. 5. DVT and GI prophylaxis. Problems: AMPARO VALERIO MD, [facility] Mar 12, 2017 15:07
--- NOTE | 2017-03-12 16:28 | PN ---
Date/Time of Note Date/Time of Note DATE: 03/12/17 TIME: 16:27 Assessment/Plan VTE Prophylaxis VTE Prophylaxis Intervention: SCD's Lines/Catheters IV Catheter Type (from Nrs): Mid Line Urinary Cath still in place: Yes Reason Cath still needed: urinary retention Assessment/Plan Assessment/Plan 61 yo F with recent long hospital stay for gallstone pancreatitis c/b pseudocyst formation requiring drainage transferred from [place] as concern for change in characteristics of abd fluid collection. PLAN -general surgery following, IR v operative intervention -cont abx from [place], ID following -cont AED -cont vent weaning, pulm following -cont TFs through PEG-->TFs ordered -cont ortiz for urinary retention Subjective 24 Hr Interval Summary Free Text/Dictation No events. Able to understand directions in Khmer (language line used to appraise pt of plan) Exam/Review of Systems Vital Signs Vitals Vital Signs Date Time Temp Pulse Resp B/P Pulse Ox O2 Delivery O2 Flow Rate FiO2 03/12/17 16:12 97 03/12/17 16:12 98.0 18 118/70 98 03/12/17 13:25 Aerosol 5.0 28 Intake and Output 03/11/17 03/11/17 03/12/17 15:00 23:00 07:00 Intake Total 0 ml 800 ml Output Total 600 ml 600 ml Balance -600 ml 200 ml Exam nad PEG in place abd drain with yellow output lungs clear nbo rashes Results Result Diagram: 03/12/17 0729 03/12/17 0729 Results 24 hrs Laboratory Tests Test 03/11/17 23:59 03/12/17 06:24 03/12/17 07:29 Bedside Glucose 108 125 White Blood Count 11.7 H Red Blood Count 3.76 L Hemoglobin 11.3 L Hematocrit 35.4 L Mean Corpuscular Volume 94.1 Mean Corpuscular Hemoglobin 30.1 Mean Corpuscular Hemoglobin Concent 31.9 L Red Cell Distribution Width 16.1 H Platelet Count 528 #H Mean Platelet Volume 8.5 Neutrophils % 78.7 H Lymphocytes % 13.4 L Monocytes % 6.5 Eosinophils % 0.4 Basophils % 0.6 Nucleated Red Blood Cells % 0.0 Neutrophils # (Manual) 9.2 H Lymphocytes # 1.6 Monocytes # 0.8 Eosinophils # 0.1 Basophils # 0.1 Nucleated Red Blood Cells # 0.0 Sodium Level 136 Potassium Level 4.2 Chloride Level 107 Carbon Dioxide Level 23 Anion Gap 10 # Blood Urea Nitrogen 18 Creatinine 0.50 Glucose Level 93 Calcium Level 8.9 Magnesium Level 1.8 Total Bilirubin 0.1 L Direct Bilirubin 0.00 Indirect Bilirubin 0.1 Aspartate Amino Transf (AST/SGOT) 107 H Alanine Aminotransferase (ALT/SGPT) 78 H Alkaline Phosphatase 389 H Total Protein 7.9 Albumin 3.1 L Globulin 4.80 H Albumin/Globulin Ratio 0.64 Medications Medications Current Medications Lorazepam (Ativan) 1 mg Q4H PRN IV agitation Last administered on 03/11/17 06: 27; Admin Dose 1 MG; Start 03/11/17 at 03:00 Insulin Aspart (Novolog Insulin Pen) NOVOLOG *MODERATE* ALGORI... Q6 SC ; Start 03/11/17 at 06:00 Acetaminophen (Tylenol Liquid) 650 mg Q4H PRN GTB PAIN AND OR ELEVATED TEMP; Start 03/11/17 at 03:00 Al Hydrox/Mg Hydrox/Simethicone (Mag-Al Plus) 30 ml Q4H PRN GTB GASTROINTESTINAL UPSET; Start 03/11/17 at 03:00 Amiodarone HCl (Cordarone) 200 mg DAILY GTB Last administered on 03/12/17 09: 38; Admin Dose 200 MG; Start 03/11/17 at 09:00 Clonazepam (Klonopin) 0.5 mg Q8 GTB Last administered on 03/12/17 13:41; Admin Dose 0.5 MG; Start 03/11/17 at 06:00 Clotrimazole (Lotrimin Cr) 1 applic AM TOP Last administered on 03/12/17 09:39 ; Admin Dose 1 APPLIC; Start 03/11/17 at 09:00 Docusate Sodium (Colace Liquid Cup) 100 mg BID GTB Last administered on 21:49; Admin Dose 100 MG; Start 03/11/17 at 09:00 Epoetin Mina (Epogen (Esrd)) 1,000 units MoWeFr@17 SC ; Start 03/13/17 at 17:00 Fluconazole (Diflucan) 100 mg DAILY GTB Last administered on 03/12/17 09:38; Admin Dose 100 MG; Start 03/11/17 at 09:00 Miscellaneous Information 1 ea NOTE XX ; Start 03/11/17 at 03:15 Glucose (Glutose) 15 gm Q15M PRN PO DECREASED GLUCOSE; Start 03/11/17 at 03:15 Glucose (Glutose) 22.5 gm Q15M PRN PO DECREASED GLUCOSE; Start 03/11/17 at 03:15 Dextrose (D50w Syringe) 25 ml Q15M PRN IV DECREASED GLUCOSE; Start 03/11/17 at 03:15 Dextrose (D50w Syringe) 50 ml Q15M PRN IV DECREASED GLUCOSE; Start 03/11/17 at 03:15 Glucagon (Glucagen) 1 mg Q15M PRN IM DECREASED GLUCOSE; Start 03/11/17 at 03:15 Glucose (Glutose) 15 gm Q15M PRN BUCCAL DECREASED GLUCOSE; Start 03/11/17 at 03: 15 Acetaminophen/ Hydrocodone Bitart ([place] (5/325)) 1 tab Q6H PRN GTB pain Last administered on 03/12/17 06:28; Admin Dose 1 TAB; Start 03/11/17 at 03:30 Ondansetron HCl (Zofran Inj) 4 mg Q6H PRN IV NAUSEA AND/OR VOMITING; Start 03/11 at 03:30 Phenobarbital (Luminal) 64.8 mg BID PO Last administered on 03/12/17 09:36; Admin Dose 64.8 MG; Start 03/11/17 at 09:00 Phenytoin (Dilantin Susp Cup) 100 mg TID GTB Last administered on 03/12/17 13: 41; Admin Dose 100 MG; Start 03/11/17 at 09:00 Topiramate 200 mg 200 mg BID PO Last administered on 03/12/17 09:36; Admin Dose 200 MG; Start 03/11/17 at 09:00 Levetiracetam 100 ml @ 400 mls/hr Q12 IVPB Last administered on 03/12/17 09: 39; Admin Dose 400 MLS/HR; Start 03/11/17 at 09:00 Levofloxacin/ Dextrose (Levaquin 500mg/ D5W 100 ml (Pmx)) 100 ml @ 100 mls/hr Q24H IVPB Last administered on 03/12/17 03:52; Admin Dose 100 MLS/HR; Start at 03:30 Loperamide HCl (Imodium Cap) 2 mg Q6H PRN GTB diarrhea; Start 03/11/17 at 03:30 Magnesium Hydroxide (Milk Of Mag) 30 ml DAILY PRN PO CONSTIPATION; Start at 03:30 Metoprolol Tartrate (Lopressor) 25 mg BID GTB Last administered on 03/12/17t 09 :39; Admin Dose 25 MG; Start 03/11/17 at 09:00 Ondansetron HCl (Zofran Inj) 4 mg Q6H PRN IV NAUSEA AND/OR VOMITING; Start 03/11 at 03:30 Acetaminophen (Tylenol Supp) 650 mg Q6H PRN AL PAIN LEVEL 1-3 OR FEVER; Start 03/11/17 at 03:30 OMAIRA OLIVERA MD Mar 12, 2017 16:28
--- NOTE | 2017-03-12 21:45 | PN ---
DATE: 03/12/2017 Infectious Disease Progress note SUBJECTIVE DATA: No acute events overnight. The patient is sleeping, lying comfortably in bed. No fevers. Temperature 98.1, pulse 90, respirations 20, blood pressure 108/68, saturation 100 percent on T-tube. LABORATORY AND DIAGNOSTIC DATA: WBC 11.7, platelets 528. BUN 18, creatinine 0.50. Antimicrobials: Fluconazole, Levaquin, indwelling trach, PEG, intra-abdominal drainage catheter. PHYSICAL EXAMINATION: GENERAL: This is a chronically ill-appearing, elderly [place] woman, who is in no distress. HEENT: Head atraumatic, normocephalic. Sclerae anicteric. Buccal mucosa dry. NECK: Supple. CHEST: Rise symmetrical. Breath sounds diminished at bases. HEART: S1, S2. ABDOMEN: Soft, bowel sounds present. EXTREMITIES: Without cyanosis. ASSESSMENT: 1. Acute complicated pancreatitis with pancreatic pseudocyst status post CT-guided pigtail catheter placement with repeat CT of the abdomen and pelvis revealed still a peripancreatic fluid collection. 2. Left mastoiditis. 3. Chronic respiratory failure. 4. Dysphagia. 5. History of urinary tract infection and pneumonia. 6. History of acute renal failure requiring hemodialysis, now off. PLAN: The patient remains stable. She is being seen by multiple consultants. Surgical recommendations pending pigtail reposition versus placement of new catheter. Continue present care. Dictated By: Darcy Matthews NP /gigi/ /Document#: [id number]
[2017-03-13] VITALS (16 sets, daily range): BP systolic 108–134; BP diastolic 65–77; PULSE 85–100; RESP 17–20
[2017-03-13] MEDS: LEVOFLOXACIN 500MG/D5W (PMX) 100 ML IVPB SCH (03:02)
[2017-03-13] MEDS: HYDROCODONE/APAP (5/325) TAB GTB PRN (03:03)
[2017-03-13] MEDS: INSULIN ASPART [NOVOLOG] 3 ML PEN SC SCH ×4 (06:00→17:37)
[2017-03-13] MEDS: clonAZEPAM 0.5 MG TAB GTB SCH ×3 (06:00→21:44)
[2017-03-13] MEDS: DOCUSATE SODIUM 10 MG/ML (10ML CUP) GTB SCH ×2 (09:00→21:00)
[2017-03-13] MEDS: FLUCONAZOLE 100 MG TAB GTB SCH (09:14)
[2017-03-13] MEDS: PHENOBARBITAL 32.4 MG TAB PO SCH ×2 (09:14→21:44)
[2017-03-13] MEDS: TOPIRAMATE 100 MG TAB PO SCH ×2 (09:14→21:44)
[2017-03-13] MEDS: PHENYTOIN (100 MG/4 ML) CUP GTB SCH ×3 (09:14→21:43)
[2017-03-13] MEDS: METOPROLOL 25 MG TAB GTB SCH ×2 (09:15→21:47)
[2017-03-13] MEDS: LEVETIRACETAM 1000 MG (PMX) 100 ML IVPB SCH ×2 (09:15→21:45)
[2017-03-13] MEDS: CLOTRIMAZOLE 1% 30 GM CR TOP SCH (09:16)
[2017-03-13] MEDS: AMIODARONE 200 MG TAB GTB SCH (09:16)
[2017-03-13] MEDS: BALSAM PERU/CASTOR OIL 60 GM TUBE TOP SCH (09:17)
--- NOTE | 2017-03-13 10:13 | CONS ---
Date/Time of Note Date/Time of Note DATE: 03/13/17 TIME: 10:11 Assessment/Plan Assessment/Plan Additional Assessment/Plan Assessment and recommendations; 1. Patient with history of gallstone pancreatitis admitted for sepsis. Doing fairly well on current antibiotic regimen. Still draining brownish colored fluid through left upper quadrant intra-abdominal drain. 2. Chronic respiratory failure, status post tracheostomy. Doing very well on T piece. 3. History of hypertension and seizure disorder. Continue current treatment. Consultation Date/Type/Reason Admit Date/Time Mar 11, 2017 at 02:03 Initial Consult Date Type of Consultation: Pulm 24 HR Interval Summary Free Text/Dictation Patient's condition is stable. Remains awake and alert. Denies any nausea vomiting. Denies any shortness of breath. Complains of very minimal abdominal discomfort. General exam; elderly woman, awake and alert. On T piece via tracheostomy. Exam/Review of Systems Vital Signs Vitals Vital Signs Date Time Temp Pulse Resp B/P Pulse Ox O2 Delivery O2 Flow Rate FiO2 03/13/17 08:15 97.5 99 20 116/77 100 03/13/17 07:45 28 03/13/17 07:45 5.0 03/13/17 06:10 Aerosol T Tube Intake and Output 03/12/17 03/12/17 03/13/17 14:59 22:59 06:59 Intake Total 550 ml Output Total 1000 ml Balance -450 ml Exam HEENT exam; supple neck, no JVD. No lymphadenopathy. Midline trachea. No thyromegaly. Patient has a tracheostomy in place attached to T-piece. Dentition is fair. Chest exam; diminished but clear breath sounds. S1-S2 audible, no murmurs. Regular rhythm. Abdomen exam; soft, no organomegaly. G-tube in place. Left upper quadrant drain in place. Draining brownish colored fluid. Bowel sounds are audible. Extremities; no peripheral edema. STOCK REPLENISHER exam; no focal deficit. Results Result Diagram: 03/12/17 0729 03/12/17 0729 Results 24 hrs Laboratory Tests Test 03/12/17 17:52 03/13/17 01:06 03/13/17 06:24 Bedside Glucose 104 102 110 Medications Medications Current Medications Lorazepam (Ativan) 1 mg Q4H PRN IV agitation Last administered on 03/11/17t 06: 27; Admin Dose 1 MG; Start 03/11/17 at 03:00 Insulin Aspart (Novolog Insulin Pen) NOVOLOG *MODERATE* ALGORI... Q6 SC ; Start 03/11/17 at 06:00 Acetaminophen (Tylenol Liquid) 650 mg Q4H PRN GTB PAIN AND OR ELEVATED TEMP; Start 03/11/17 at 03:00 Al Hydrox/Mg Hydrox/Simethicone (Mag-Al Plus) 30 ml Q4H PRN GTB GASTROINTESTINAL UPSET; Start 03/11/17 at 03:00 Amiodarone HCl (Cordarone) 200 mg DAILY GTB Last administered on 03/13/17 09: 16; Admin Dose 200 MG; Start 03/11/17 at 09:00 Clonazepam (Klonopin) 0.5 mg Q8 GTB Last administered on 03/12/17 21:12; Admin Dose 0.5 MG; Start 03/11/17 at 06:00 Clotrimazole (Lotrimin Cr) 1 applic AM TOP Last administered on 03/13/17 09:16 ; Admin Dose 1 APPLIC; Start 03/11/17 at 09:00 Docusate Sodium (Colace Liquid Cup) 100 mg BID GTB Last administered on 21:49; Admin Dose 100 MG; Start 03/11/17 at 09:00 Epoetin Mina (Epogen (Esrd)) 1,000 units MoWeFr@17 SC ; Start 03/13/17 at 17:00 Fluconazole (Diflucan) 100 mg DAILY GTB Last administered on 03/13/17 09:14; Admin Dose 100 MG; Start 03/11/17 at 09:00 Miscellaneous Information 1 ea NOTE XX ; Start 03/11/17 at 03:15 Glucose (Glutose) 15 gm Q15M PRN PO DECREASED GLUCOSE; Start 03/11/17 at 03:15 Glucose (Glutose) 22.5 gm Q15M PRN PO DECREASED GLUCOSE; Start 03/11/17 at 03:15 Dextrose (D50w Syringe) 25 ml Q15M PRN IV DECREASED GLUCOSE; Start 03/11/17 at 03:15 Dextrose (D50w Syringe) 50 ml Q15M PRN IV DECREASED GLUCOSE; Start 03/11/17 at 03:15 Glucagon (Glucagen) 1 mg Q15M PRN IM DECREASED GLUCOSE; Start 03/11/17 at 03:15 Glucose (Glutose) 15 gm Q15M PRN BUCCAL DECREASED GLUCOSE; Start 03/11/17 at 03: 15 Acetaminophen/ Hydrocodone Bitart ([place] (5/325)) 1 tab Q6H PRN GTB pain Last administered on 03/13/17 03:03; Admin Dose 1 TAB; Start 03/11/17 at 03:30 Ondansetron HCl (Zofran Inj) 4 mg Q6H PRN IV NAUSEA AND/OR VOMITING; Start 03/11 at 03:30 Phenobarbital (Luminal) 64.8 mg BID PO Last administered on 03/13/17 09:14; Admin Dose 64.8 MG; Start 03/11/17 at 09:00 Phenytoin (Dilantin Susp Cup) 100 mg TID GTB Last administered on 03/13/17 09: 14; Admin Dose 100 MG; Start 03/11/17 at 09:00 Topiramate 200 mg 200 mg BID PO Last administered on 03/13/17 09:14; Admin Dose 200 MG; Start 03/11/17 at 09:00 Levetiracetam 100 ml @ 400 mls/hr Q12 IVPB Last administered on 03/13/17 09: 15; Admin Dose 400 MLS/HR; Start 03/11/17 at 09:00 Levofloxacin/ Dextrose (Levaquin 500mg/ D5W 100 ml (Pmx)) 100 ml @ 100 mls/hr Q24H IVPB Last administered on 03/13/17 03:02; Admin Dose 100 MLS/HR; Start at 03:30 Loperamide HCl (Imodium Cap) 2 mg Q6H PRN GTB diarrhea; Start 03/11/17 at 03:30 Magnesium Hydroxide (Milk Of Mag) 30 ml DAILY PRN PO CONSTIPATION; Start at 03:30 Metoprolol Tartrate (Lopressor) 25 mg BID GTB Last administered on 03/13/17 09 :15; Admin Dose 25 MG; Start 03/11/17 at 09:00 Ondansetron HCl (Zofran Inj) 4 mg Q6H PRN IV NAUSEA AND/OR VOMITING; Start 03/11 at 03:30 Acetaminophen (Tylenol Supp) 650 mg Q6H PRN [place] PAIN LEVEL 1-3 OR FEVER; Start 03/11/17 at 03:30 JAYME QUEZADA Mar 13, 2017 10:13
--- NOTE | 2017-03-13 10:38 | PN ---
Date/Time of Note Date/Time of Note DATE: 03/13/17 TIME: 10:31 Assessment/Plan Lines/Catheters IV Catheter Type (from Nrs): Mid Line Matias in Place (from Nrs): Yes Assessment/Plan Chief Complaint/Hosp Course 1. Peripancreatic fluid collection: drain in place with increased amount of fluid in bag -continue drain to bulb suction -per gi/hepatology recs: pending drain adjustment -abx per sensitivity 2. Mastoiditis -cont abx 3. Hx. of respiratory failure with trach: comfortable on trach collar -supportive -pulmonary toilet 4. Dysphagia with PEG placement -cont tf with aspiration precautions 5. Thrombocytosis: likely 2/2 #1 -supportive -as above 6. Transaminitis: 2/2 #1 -supportive -as above 7. Leukocytosis: No fevers chills -as above 8. Confusion/agitation: currently pulling at tubes and drains, on restraints -supportive -attempt less restrictive measures and dc restraint as able Thank you. Patient seen and examined in collaboration with Dr. Vladimir Kirkpatrick. Problems: Subjective 24 Hr Interval Summary Appears comfortable on trach collar. Continues to restraints, attempting to pull at lines and drains. Nonverbal indicators of pain not present. Drain with increased amount of drainage in bag. No fevers, chills, sob, congested cough, vomiting, abdominal guarding, diarrhea, hematuria. Exam/Review of Systems Vital Signs Vitals Vital Signs Date Time Temp Pulse Resp B/P Pulse Ox O2 Delivery O2 Flow Rate FiO2 03/13/17 08:15 97.5 99 20 116/77 100 03/13/17 07:45 28 03/13/17 07:45 5.0 03/13/17 06:10 Aerosol T Tube Intake and Output 03/12/17 03/12/17 03/13/17 15:00 23:00 07:00 Intake Total 550 ml Output Total 1000 ml Balance -450 ml Exam Free Text/Dictation Constitutional: alert, tracks No distress, No oriented Psych: nl mood/affect, no complaints, confused Head: atraumatic, normocephalic Eyes: nl lids, nl sclera ENMT: mucosa pink and moist Neck: non-tender, trach with trach collar Respiratory: normal air movement, No congested cough Cardiovascular: nl pulses, regular rate and rhythm Gastrointestinal: non-tender, other (peg, left flank drain with increased creamy drainage in bag), soft, No distended Musculoskeletal: muscle weakness, nl extremities to inspection Extremities: normal pulses, No edema Neurological: confused, No nl mental status Skin: No rash or lesions Results Result Diagram: 03/12/17 0729 03/12/17 0729 JOSE LUIS ORO NP Mar 13, 2017 10:38
--- NOTE | 2017-03-13 10:45 | PN ---
Date/Time of Note Date/Time of Note DATE: 03/12/17 TIME: 13:50 Assessment/Plan Lines/Catheters IV Catheter Type (from Nrs): Mid Line Matias in Place (from Nrs): Yes Assessment/Plan Chief Complaint/Hosp Course 1. Peripancreatic fluid collection: drain in place with increased amount of fluid in bag -continue drain to bulb suction -per gi/hepatology recs: pending drain adjustment -abx per sensitivity 2. Mastoiditis -cont abx 3. Hx. of respiratory failure with trach: comfortable on trach collar -supportive -pulmonary toilet 4. Dysphagia with PEG placement -cont tf with aspiration precautions 5. Thrombocytosis: likely 2/2 #1; increasing -supportive -as above 6. Transaminitis: 2/2 #1 -supportive -as above 7. Leukocytosis: No fevers chills -as above 8. Confusion/agitation: currently pulling at tubes and drains, on restraints -supportive -attempt less restrictive measures and dc restraint as able Thank you. Patient seen and examined in collaboration with Dr. Vladimir Kirkpatrick. Problems: Subjective 24 Hr Interval Summary Appears comfortable in bed. Non verbal indicators of pain not present. Comfortable on trach mist. Drain with min creamy drainage. No fevers, chills, sob, sz, vomiting, diarrhea, rash. Tolerating diet with +bowel function. Exam/Review of Systems Vital Signs Vitals Vital Signs Date Time Temp Pulse Resp B/P Pulse Ox O2 Delivery O2 Flow Rate FiO2 03/13/17 08:15 97.5 99 20 116/77 100 03/13/17 07:45 28 03/13/17 07:45 5.0 03/13/17 06:10 Aerosol T Tube Intake and Output 03/12/17 03/12/17 03/13/17 15:00 23:00 07:00 Intake Total 550 ml Output Total 1000 ml Balance -450 ml Exam Free Text/Dictation Constitutional: alert, tracks No distress, No oriented Psych: nl mood/affect, no complaints, confused- agitated when examined Head: atraumatic, normocephalic Eyes: nl lids, nl sclera ENMT: mucosa pink and moist Neck: non-tender, trach with trach collar Respiratory: normal air movement, No congested cough Cardiovascular: nl pulses, regular rate and rhythm Gastrointestinal: non-tender, other (peg, left flank drain with min creamy drainage in bag), soft, No distended Musculoskeletal: muscle weakness, nl extremities to inspection Extremities: normal pulses, No edema Neurological: confused, No nl mental status Skin: No rash or lesions Results Result Diagram: 03/12/17 0729 03/12/17 0729 JOSE LUIS ORO NP Mar 13, 2017 10:45
--- NOTE | 2017-03-13 13:06 | PN ---
Date/Time of Note Date/Time of Note DATE: 03/13/17 TIME: 13:01 Assessment/Plan Lines/Catheters IV Catheter Type (from Nrsg): Mid Line Matias in Place (from Nrsg): Yes Assessment/Plan Assessment/Plan [facility] Progress Note Date of Service: 03/13/2017 Place of service: [facility] fifth floor telemetry Today's Assessment & Plan: Overall stable. Discussed drain with Dr. Box. Orders placed. Will likely get a new drain in LUQ vs repositioning of the existing LLQ drain. Still no indication for acute surgical intervention. With above assessment, I've recommended the followin. IR drain adjustment/placement Left quadrant (Dr. Box to please protocol; discussed with him earlier and much appreciate his expertise) 2. Aggressive intervention to get patient off the vent and put Shiley valve so patient can speak and hopefully eat 3. Swallowing eval to see if patient can eat and get her off of tube feeds 4. We're hopeful to expedite patient's recovery with above with hope of short term stay at LTAC and d/c home afterwards Thank you very much for having me involved in the care of this very pleasant patient and wonderful family. If you have any questions, please feel free to contact me at [phone]. Nature of presenting problem: High severity Please note that, given the extensive number of diagnoses or management options , the extensive amount and/or complexity of data needed to be reviewed, and high risk of complications and/or morbidity or mortality, this qualifies as high complexity type of decision-making. Disclaimer: Inadvertent spelling and grammatical errors are likely due to EHR/ dictation software use and do not reflect on the quality of delivered patient care. Also, please note that the electronic time recorded on this node does not necessarily reflect the actual time of the visit. Updated clinical summary: Very pleasant but unfortunate 61-year-old lady with multiple comorbidities and recent severe pancreatitis complicated by pseudocyst, as well as need for tracheostomy placement and tube feeding, hospitalized for the last 2-3 months, presenting with ongoing issues with pancreatic pseudocyst. Comorbidities: 1. BMI 25.9 2. Severe pancreatitis complicated by pseudocyst formation requiring drainage, as well as need for tracheostomy and PEG. Prolonged hospitalization followed by prolonged subacute care stay; prolonged hospital stay at [facility], 01/04/2017 01/27/2017 requiring multiple interventions such as ERCP as well as temporary hemodialysis for acute kidney injury, respiratory failure requiring tracheostomy and PEG placement; transferred to [place] for vent weaning since discharge on 01/27/[address]-guided left flank pseudocyst drainage by interventional radiology 02/07/2017 [facility] 4. Status post ERCP with large filling defects seen in common bile duct consistent with a stone; status post stent placement in common bile duct 2016 [facility] 5. Status post CT-guided drainage of right flank fluid collection (removal of 200 cc of purulent fluid) 02/28/2017 [facility] Subjective: No major reported events or complaints; no major or obvious reported abd pain and seems to be under control with medications; no n/v/d; no sob or cp; ? flatus ; + reported BM; minimal activity (patient remains in soft restraints) Objective: Vitals: See below I's & O's: See below Exam: GENERAL: On exam, the patient was lying in bed and appeared to be comfortable and in no acute distress. ABDOMEN: Soft, nontender and nondistended. Drain outputs appeared to be purulent. There are no peritoneal signs or guarding. SKIN: Skin appears to be pink and feels warm to touch. NEUROLOGIC: Patient is awake, alert, and does not appear to be following commands appropriately, likely due to language barriers. Labs: See below Exam/Review of Systems Vital Signs Vitals Vital Signs Date Time Temp Pulse Resp B/P Pulse Ox O2 Delivery O2 Flow Rate FiO2 03/13/17 12:16 89 03/13/17 12:10 97.7 20 119/72 100 03/13/17 08:00 8.0 03/13/17 07:45 28 03/13/17 06:10 Aerosol T Tube Intake and Output 03/12/17 03/12/17 03/13/17 15:00 23:00 07:00 Intake Total 550 ml Output Total 1000 ml Balance -450 ml Results Result Diagram: 03/12/17 0729 03/12/17 0729 KIM BELLAMY M.D. Mar 13, 2017 13:06
--- NOTE | 2017-03-13 13:33 | CONS ---
Date/Time of Note Date/Time of Note DATE: 03/13/17 TIME: 13:31 Assessment/Plan Assessment/Plan Chief Complaint/Hosp Course SUBJECTIVE DATA: No acute events overnight. The patient is awake, noncommunicative, looks comfortable, afebrile Antimicrobials: Fluconazole, Levaquin Indwelling: trach, PEG, intra-abdominal drainage catheter. PHYSICAL EXAMINATION: GENERAL: This is a chronically ill-appearing, elderly [place] woman, who is in no distress. HEENT: Head atraumatic, normocephalic. Sclerae anicteric. Buccal mucosa dry. NECK: Supple. CHEST: Rise symmetrical. Breath sounds diminished at bases. HEART: S1, S2. ABDOMEN: Soft, bowel sounds present. EXTREMITIES: Without cyanosis. ASSESSMENT: 1. Acute complicated pancreatitis with pancreatic pseudocyst status post CT-guided pigtail catheter placement with repeat CT of the abdomen and pelvis revealed still a peripancreatic fluid collection. GS of fluid + yeast 2. Left mastoiditis. 3. Chronic respiratory failure. 4. Dysphagia. 5. History of urinary tract infection and pneumonia. 6. History of acute renal failure requiring hemodialysis, now off. PLAN: The patient remains stable. Per surgical recommendations pending pigtail reposition versus placement of new catheter. Continue present care. Problems: Consultation Date/Type/Reason Admit Date/Time Mar 11, 2017 at 02:03 Initial Consult Date 03/11/17 Type of Consultation: ID Exam/Review of Systems Vital Signs Vitals Vital Signs Date Time Temp Pulse Resp B/P Pulse Ox O2 Delivery O2 Flow Rate FiO2 03/13/17 12:16 89 03/13/17 12:10 97.7 20 119/72 100 03/13/17 08:00 8.0 03/13/17 07:45 28 03/13/17 06:10 Aerosol T Tube Intake and Output 03/12/17 03/12/17 03/13/17 15:00 23:00 07:00 Intake Total 550 ml Output Total 1000 ml Balance -450 ml Results Result Diagram: 03/12/17 0729 03/12/17 0729 Results 24 hrs Laboratory Tests Test 03/12/17 17:52 03/13/17 01:06 03/13/17 06:24 03/13/17 12:21 Bedside Glucose 104 102 110 105 Medications Medications Current Medications Lorazepam (Ativan) 1 mg Q4H PRN IV agitation Last administered on 03/11/17 06: 27; Admin Dose 1 MG; Start 03/11/17 at 03:00 Insulin Aspart (Novolog Insulin Pen) NOVOLOG *MODERATE* ALGORI... Q6 SC ; Start 03/11/17 at 06:00 Acetaminophen (Tylenol Liquid) 650 mg Q4H PRN GTB PAIN AND OR ELEVATED TEMP; Start 03/11/17 at 03:00 Al Hydrox/Mg Hydrox/Simethicone (Mag-Al Plus) 30 ml Q4H PRN GTB GASTROINTESTINAL UPSET; Start 03/11/17 at 03:00 Amiodarone HCl (Cordarone) 200 mg DAILY GTB Last administered on 03/13/17 09: 16; Admin Dose 200 MG; Start 03/11/17 at 09:00 Clonazepam (Klonopin) 0.5 mg Q8 GTB Last administered on 03/12/17 21:12; Admin Dose 0.5 MG; Start 03/11/17 at 06:00 Clotrimazole (Lotrimin Cr) 1 applic AM TOP Last administered on 03/13/17 09:16 ; Admin Dose 1 APPLIC; Start 03/11/17 at 09:00 Docusate Sodium (Colace Liquid Cup) 100 mg BID GTB Last administered on 21:49; Admin Dose 100 MG; Start 03/11/17 at 09:00 Epoetin Mina (Epogen (Esrd)) 1,000 units MoWeFr@17 SC ; Start 03/13/17 at 17:00 Fluconazole (Diflucan) 100 mg DAILY GTB Last administered on 03/13/17 09:14; Admin Dose 100 MG; Start 03/11/17 at 09:00 Miscellaneous Information 1 ea NOTE XX ; Start 03/11/17 at 03:15 Glucose (Glutose) 15 gm Q15M PRN PO DECREASED GLUCOSE; Start 03/11/17 at 03:15 Glucose (Glutose) 22.5 gm Q15M PRN PO DECREASED GLUCOSE; Start 03/11/17 at 03:15 Dextrose (D50w Syringe) 25 ml Q15M PRN IV DECREASED GLUCOSE; Start 03/11/17 at 03:15 Dextrose (D50w Syringe) 50 ml Q15M PRN IV DECREASED GLUCOSE; Start 03/11/17 at 03:15 Glucagon (Glucagen) 1 mg Q15M PRN IM DECREASED GLUCOSE; Start 03/11/17 at 03:15 Glucose (Glutose) 15 gm Q15M PRN BUCCAL DECREASED GLUCOSE; Start 03/11/17 at 03: 15 Acetaminophen/ Hydrocodone Bitart ([place] (5/325)) 1 tab Q6H PRN GTB pain Last administered on 03/13/17 03:03; Admin Dose 1 TAB; Start 03/11/17 at 03:30 Ondansetron HCl (Zofran Inj) 4 mg Q6H PRN IV NAUSEA AND/OR VOMITING; Start 03/11 at 03:30 Phenobarbital (Luminal) 64.8 mg BID PO Last administered on 03/13/17 09:14; Admin Dose 64.8 MG; Start 03/11/17 at 09:00 Phenytoin (Dilantin Susp Cup) 100 mg TID GTB Last administered on 03/13/17 12: 20; Admin Dose 100 MG; Start 03/11/17 at 09:00 Topiramate 200 mg 200 mg BID PO Last administered on 03/13/17 09:14; Admin Dose 200 MG; Start 03/11/17 at 09:00 Levetiracetam 100 ml @ 400 mls/hr Q12 IVPB Last administered on 03/13/17 09: 15; Admin Dose 400 MLS/HR; Start 03/11/17 at 09:00 Levofloxacin/ Dextrose (Levaquin 500mg/ D5W 100 ml (Pmx)) 100 ml @ 100 mls/hr Q24H IVPB Last administered on 03/13/17 03:02; Admin Dose 100 MLS/HR; Start at 03:30 Loperamide HCl (Imodium Cap) 2 mg Q6H PRN GTB diarrhea; Start 03/11/17 at 03:30 Magnesium Hydroxide (Milk Of Mag) 30 ml DAILY PRN PO CONSTIPATION; Start at 03:30 Metoprolol Tartrate (Lopressor) 25 mg BID GTB Last administered on 03/13/17 09 :15; Admin Dose 25 MG; Start 03/11/17 at 09:00 Ondansetron HCl (Zofran Inj) 4 mg Q6H PRN IV NAUSEA AND/OR VOMITING; Start 03/11 at 03:30 Acetaminophen (Tylenol Supp) 650 mg Q6H PRN [place] PAIN LEVEL 1-3 OR FEVER; Start 03/11/17 at 03:30 MIKE TURCIOS NP Mar 13, 2017 13:33
--- NOTE | 2017-03-13 16:24 | CONS ---
Date/Time of Note Date/Time of Note DATE: 03/13/17 TIME: 16:23 Assessment/Plan Assessment/Plan Additional Assessment/Plan History of pancreatitis with abdominal fluid collection Paroxysmal atrial fibrillation, currently sinus rhythm Respiratory failure Preserved ejection fraction Hypertension -Blood pressure trend remains stable. Continue amiodarone and beta-linda as heart rate permits. Consultation Date/Type/Reason Admit Date/Time Mar 11, 2017 at 02:03 Initial Consult Date 03/11/17 Type of Consultation: cv 24 HR Interval Summary Free Text/Dictation Patient seen and examined, transferred to [facility] secondary to management of pancreatic issues Exam/Review of Systems Vital Signs Vitals Vital Signs Date Time Temp Pulse Resp B/P Pulse Ox O2 Delivery O2 Flow Rate FiO2 03/13/17 16:15 94 03/13/17 16:10 98.0 20 118/75 100 03/13/17 13:45 5.0 28 03/13/17 13:45 Aerosol Intake and Output 03/12/17 03/12/17 03/13/17 15:00 23:00 07:00 Intake Total 550 ml Output Total 1000 ml Balance -450 ml Exam Follows commands intermittently, no apparent distress Constitutional: alert Head: normocephalic Neck: other (Tracheostomy) Respiratory: other (Coarse breath sounds bilaterally, no wheezing) Cardiovascular: other (S1-S2 heard), regular rate and rhythm Gastrointestinal: bowel sounds, non-tender, soft Extremities: edema Results Result Diagram: 03/12/17 0729 03/12/17 0729 Results 24 hrs Laboratory Tests Test 03/12/17 17:52 03/13/17 01:06 03/13/17 06:24 03/13/17 12:21 Bedside Glucose 104 102 110 105 Medications Medications Current Medications Lorazepam (Ativan) 1 mg Q4H PRN IV agitation Last administered on 03/11/17t 06: 27; Admin Dose 1 MG; Start 03/11/17 at 03:00 Insulin Aspart (Novolog Insulin Pen) NOVOLOG *MODERATE* ALGORI... Q6 SC ; Start 03/11/17 at 06:00 Acetaminophen (Tylenol Liquid) 650 mg Q4H PRN GTB PAIN AND OR ELEVATED TEMP; Start 03/11/17 at 03:00 Al Hydrox/Mg Hydrox/Simethicone (Mag-Al Plus) 30 ml Q4H PRN GTB GASTROINTESTINAL UPSET; Start 03/11/17 at 03:00 Amiodarone HCl (Cordarone) 200 mg DAILY GTB Last administered on 03/13/17 09: 16; Admin Dose 200 MG; Start 03/11/17 at 09:00 Clonazepam (Klonopin) 0.5 mg Q8 GTB Last administered on 03/13/17 14:59; Admin Dose 0.5 MG; Start 03/11/17 at 06:00 Clotrimazole (Lotrimin Cr) 1 applic AM TOP Last administered on 03/13/17 09:16 ; Admin Dose 1 APPLIC; Start 03/11/17 at 09:00 Docusate Sodium (Colace Liquid Cup) 100 mg BID GTB Last administered on 21:49; Admin Dose 100 MG; Start 03/11/17 at 09:00 Epoetin Mina (Epogen (Esrd)) 1,000 units MoWeFr@17 SC ; Start 03/13/17 at 17:00 Fluconazole (Diflucan) 100 mg DAILY GTB Last administered on 03/13/17 09:14; Admin Dose 100 MG; Start 03/11/17 at 09:00 Miscellaneous Information 1 ea NOTE XX ; Start 03/11/17 at 03:15 Glucose (Glutose) 15 gm Q15M PRN PO DECREASED GLUCOSE; Start 03/11/17 at 03:15 Glucose (Glutose) 22.5 gm Q15M PRN PO DECREASED GLUCOSE; Start 03/11/17 at 03:15 Dextrose (D50w Syringe) 25 ml Q15M PRN IV DECREASED GLUCOSE; Start 03/11/17 at 03:15 Dextrose (D50w Syringe) 50 ml Q15M PRN IV DECREASED GLUCOSE; Start 03/11/17 at 03:15 Glucagon (Glucagen) 1 mg Q15M PRN IM DECREASED GLUCOSE; Start 03/11/17 at 03:15 Glucose (Glutose) 15 gm Q15M PRN BUCCAL DECREASED GLUCOSE; Start 03/11/17 at 03: 15 Acetaminophen/ Hydrocodone Bitart ([place] (5/325)) 1 tab Q6H PRN GTB pain Last administered on 03/13/17 03:03; Admin Dose 1 TAB; Start 03/11/17 at 03:30 Ondansetron HCl (Zofran Inj) 4 mg Q6H PRN IV NAUSEA AND/OR VOMITING; Start 03/11 at 03:30 Phenobarbital (Luminal) 64.8 mg BID PO Last administered on 03/13/17 09:14; Admin Dose 64.8 MG; Start 03/11/17 at 09:00 Phenytoin (Dilantin Susp Cup) 100 mg TID GTB Last administered on 03/13/17 12: 20; Admin Dose 100 MG; Start 03/11/17 at 09:00 Topiramate 200 mg 200 mg BID PO Last administered on 03/13/17 09:14; Admin Dose 200 MG; Start 03/11/17 at 09:00 Levetiracetam 100 ml @ 400 mls/hr Q12 IVPB Last administered on 03/13/17 09: 15; Admin Dose 400 MLS/HR; Start 03/11/17 at 09:00 Levofloxacin/ Dextrose (Levaquin 500mg/ D5W 100 ml (Pmx)) 100 ml @ 100 mls/hr Q24H IVPB Last administered on 03/13/17 03:02; Admin Dose 100 MLS/HR; Start at 03:30 Loperamide HCl (Imodium Cap) 2 mg Q6H PRN GTB diarrhea; Start 03/11/17 at 03:30 Magnesium Hydroxide (Milk Of Mag) 30 ml DAILY PRN PO CONSTIPATION; Start at 03:30 Metoprolol Tartrate (Lopressor) 25 mg BID GTB Last administered on 03/13/17 09 :15; Admin Dose 25 MG; Start 03/11/17 at 09:00 Ondansetron HCl (Zofran Inj) 4 mg Q6H PRN IV NAUSEA AND/OR VOMITING; Start 03/11 at 03:30 Acetaminophen (Tylenol Supp) 650 mg Q6H PRN [place] PAIN LEVEL 1-3 OR FEVER; Start 03/11/17 at 03:30 Vlad Leyva DO Mar 13, 2017 16:24
--- NOTE | 2017-03-13 17:06 | PN ---
Date/Time of Note Date/Time of Note DATE: 03/13/17 TIME: 17:01 Assessment/Plan VTE Prophylaxis VTE Prophylaxis Intervention: SCD's Lines/Catheters IV Catheter Type (from Nrs): Mid Line Urinary Cath still in place: Yes Reason Cath still needed: urinary retention Assessment/Plan Chief Complaint/Hosp Course Assessment/Plan: 61 yo F past medical history paroxysmal A. fib, with recent long hospital stay for gallstone pancreatitis c/b pseudocyst formation requiring drainage transferred from [place] as concern for change in characteristics of abd fluid collection. PLAN -general surgery following, IR v operative intervention -plan for IR drain adjustment/placement Left quadrant per surgery recommendations -cont abx from [place], ID following -cont AED -cont vent weaning, pulm following, trach in place -cont TFs through PEG-->TFs ordered -cont ortiz for urinary retention -Monitor LFTs -Monitor heart rate on telemetry -For left mastoiditis, follow-up ID recommendations, continue current antibiotics Problems: Subjective 24 Hr Interval Summary Free Text/Dictation Patient still requiring restraints, but more calm presently. Seen by cardiology , infectious disease, and surgery teams today. Exam/Review of Systems Vital Signs Vitals Vital Signs Date Time Temp Pulse Resp B/P Pulse Ox O2 Delivery O2 Flow Rate FiO2 03/13/17 16:15 94 03/13/17 16:10 98.0 20 118/75 100 03/13/17 14:00 Trach Collar 8.0 03/13/17 13:45 28 Intake and Output 03/12/17 03/12/17 03/13/17 15:00 23:00 07:00 Intake Total 550 ml Output Total 1000 ml Balance -450 ml Exam nad presently, sitting up in bed, in restraints Supple PEG in place abd drain with somewhat cloudy yellow-brownish output lungs clear nbo rashes Results Result Diagram: 03/12/17 0729 03/12/17 0729 Results 24 hrs Laboratory Tests Test 03/12/17 17:52 03/13/17 01:06 03/13/17 06:24 03/13/17 12:21 Bedside Glucose 104 102 110 105 Medications Medications Current Medications Lorazepam (Ativan) 1 mg Q4H PRN IV agitation Last administered on 03/11/17t 06: 27; Admin Dose 1 MG; Start 03/11/17 at 03:00 Insulin Aspart (Novolog Insulin Pen) NOVOLOG *MODERATE* ALGORI... Q6 SC ; Start 03/11/17 at 06:00 Acetaminophen (Tylenol Liquid) 650 mg Q4H PRN GTB PAIN AND OR ELEVATED TEMP; Start 03/11/17 at 03:00 Al Hydrox/Mg Hydrox/Simethicone (Mag-Al Plus) 30 ml Q4H PRN GTB GASTROINTESTINAL UPSET; Start 03/11/17 at 03:00 Amiodarone HCl (Cordarone) 200 mg DAILY GTB Last administered on 03/13/17 09: 16; Admin Dose 200 MG; Start 03/11/17 at 09:00 Clonazepam (Klonopin) 0.5 mg Q8 GTB Last administered on 03/13/17 14:59; Admin Dose 0.5 MG; Start 03/11/17 at 06:00 Clotrimazole (Lotrimin Cr) 1 applic AM TOP Last administered on 03/13/17 09:16 ; Admin Dose 1 APPLIC; Start 03/11/17 at 09:00 Docusate Sodium (Colace Liquid Cup) 100 mg BID GTB Last administered on 21:49; Admin Dose 100 MG; Start 03/11/17 at 09:00 Epoetin Mina (Epogen (Esrd)) 1,000 units MoWeFr@17 SC ; Start 03/13/17 at 17:00 Fluconazole (Diflucan) 100 mg DAILY GTB Last administered on 03/13/17 09:14; Admin Dose 100 MG; Start 03/11/17 at 09:00 Miscellaneous Information 1 ea NOTE XX ; Start 03/11/17 at 03:15 Glucose (Glutose) 15 gm Q15M PRN PO DECREASED GLUCOSE; Start 03/11/17 at 03:15 Glucose (Glutose) 22.5 gm Q15M PRN PO DECREASED GLUCOSE; Start 03/11/17 at 03:15 Dextrose (D50w Syringe) 25 ml Q15M PRN IV DECREASED GLUCOSE; Start 03/11/17 at 03:15 Dextrose (D50w Syringe) 50 ml Q15M PRN IV DECREASED GLUCOSE; Start 03/11/17 at 03:15 Glucagon (Glucagen) 1 mg Q15M PRN IM DECREASED GLUCOSE; Start 03/11/17 at 03:15 Glucose (Glutose) 15 gm Q15M PRN BUCCAL DECREASED GLUCOSE; Start 03/11/17 at 03: 15 Acetaminophen/ Hydrocodone Bitart ([place] (5/325)) 1 tab Q6H PRN GTB pain Last administered on 03/13/17 03:03; Admin Dose 1 TAB; Start 03/11/17 at 03:30 Ondansetron HCl (Zofran Inj) 4 mg Q6H PRN IV NAUSEA AND/OR VOMITING; Start 03/11 at 03:30 Phenobarbital (Luminal) 64.8 mg BID PO Last administered on 03/13/17 09:14; Admin Dose 64.8 MG; Start 03/11/17 at 09:00 Phenytoin (Dilantin Susp Cup) 100 mg TID GTB Last administered on 03/13/17 12: 20; Admin Dose 100 MG; Start 03/11/17 at 09:00 Topiramate 200 mg 200 mg BID PO Last administered on 03/13/17 09:14; Admin Dose 200 MG; Start 03/11/17 at 09:00 Levetiracetam 100 ml @ 400 mls/hr Q12 IVPB Last administered on 03/13/17 09: 15; Admin Dose 400 MLS/HR; Start 03/11/17 at 09:00 Levofloxacin/ Dextrose (Levaquin 500mg/ D5W 100 ml (Pmx)) 100 ml @ 100 mls/hr Q24H IVPB Last administered on 03/13/17 03:02; Admin Dose 100 MLS/HR; Start at 03:30 Loperamide HCl (Imodium Cap) 2 mg Q6H PRN GTB diarrhea; Start 03/11/17 at 03:30 Magnesium Hydroxide (Milk Of Mag) 30 ml DAILY PRN PO CONSTIPATION; Start at 03:30 Metoprolol Tartrate (Lopressor) 25 mg BID GTB Last administered on 03/13/17 09 :15; Admin Dose 25 MG; Start 03/11/17 at 09:00 Ondansetron HCl (Zofran Inj) 4 mg Q6H PRN IV NAUSEA AND/OR VOMITING; Start 03/11 at 03:30 Acetaminophen (Tylenol Supp) 650 mg Q6H PRN [place] PAIN LEVEL 1-3 OR FEVER; Start 03/11/17 at 03:30 CARYN ESCOTO Mar 13, 2017 17:06
[2017-03-13] MEDS: EPOETIN 3000 UNITS/1 ML INJ (ESRD) SC SCH (18:01)
--- NOTE | 2017-03-13 20:01 | PN ---
DATE: 03/13/2017 SUBJECTIVE DATA: The patient has a history of pseudocyst of the pancreas and she has a drainage functioning from the left-sided pseudocyst of the pancreas. ERCP was done, and pancreatic duct stent was placed after the ERCP and removal of the CBD stone. The patient now is seen by Dr. Cherry from the pancreatic surgery standpoint and I appreciate his consultation. He has made recommendations that a drain in the pseudocyst needs to be changed with better drainage tube which will have more openings to drain the rest of the fluid in the pseudocyst. LABORATORY: Her ALK phos is 389, AST 107, ALT 78. The WBC count is 7700, hemoglobin 11.3. All. IMPRESSION: Pseudocyst of the pancreas which is infected. He is on antibiotic therapy. PLAN: Will be to change the drain into a different kind of drain which will have multiple openings to drain the rest of the fluid. This will need to be performed by interventional radiologist. We will follow the patient closely. Dictated By: Chaitanya Green MD /[email or web address] /Document#: [id number]
[2017-03-14] VITALS (22 sets, daily range): BP systolic 104–132; BP diastolic 0–75; PULSE 76–95; RESP 11–82
[2017-03-14] MEDS: LEVOFLOXACIN 500MG/D5W (PMX) 100 ML IVPB SCH (04:22)
[2017-03-14] MEDS: INSULIN ASPART [NOVOLOG] 3 ML PEN SC SCH ×4 (05:59→17:35)
[2017-03-14] MEDS: clonAZEPAM 0.5 MG TAB GTB SCH ×4 (06:00→21:11)
[2017-03-14] MEDS: ACETAMINOPHEN 650MG/20.3ML CUP GTB PRN (06:00)
[2017-03-14 07:41] LABS: BASOPHIL # 0.1 10^3/ul (0.0-0.1); BASOPHILS % 0.7 % (0.0-2.0); EOSINOPHILS # 0.1 10^3/ul (0.0-0.5); HEMATOCRIT 33.7 % (37.0-47.0); HEMOGLOBIN 10.5 g/dl (12.0-16.0); LYMPHOCYTES # 2.2 10^3/ul (0.8-2.9); LYMPHOCYTES % 25.1 % (15.0-51.0); MEAN CORPUSCULAR HEMOGLOBIN 29.5 pg (29.0-33.0); MEAN CORPUSCULAR HGB CONC 31.2 g/dl (32.0-37.0); MEAN CORPUSCULAR VOLUME 94.7 fl (82.0-101.0); MEAN PLATELET VOLUME 8.7 fl (7.4-10.4); MONOCYTE # 0.7 10^3/ul (0.3-0.9); MONOCYTES % 8.3 % (0.0-11.0); NEUTROPHILS % 64.6 % (39.0-77.0); PLATELET COUNT 488 10^3/UL (140-415); RED BLOOD COUNT 3.56 10^6/ul (4.20-5.40); WHITE BLOOD COUNT 8.8 10^3/ul (4.8-10.8)
[2017-03-14 08:04] LABS: INR 1.2; PROTIME 15.3 Sec (12.2-14.2); PT RATIO 1.2
[2017-03-14 08:05] LABS: PARTIAL THROMBOPLASTIN TIME 33.1 Sec (25.0-35.0)
[2017-03-14 08:13] LABS: ALBUMIN 2.9 g/dl (3.3-4.9); TOTAL PROTEIN 7.6 g/dl (6.1-8.1)
[2017-03-14 08:19] LABS: CALCIUM 9.1 mg/dl (8.4-10.2); CREATININE 0.56 mg/dl (0.44-1.00); MAGNESIUM 1.7 mg/dl (1.7-2.5); PHOSPHORUS 4.9 mg/dl (2.5-4.9); POTASSIUM 3.8 mmol/L (3.5-5.1)
[2017-03-14] MEDS: DOCUSATE SODIUM 10 MG/ML (10ML CUP) GTB SCH ×2 (09:00→21:11)
[2017-03-14] MEDS: LEVETIRACETAM 1000 MG (PMX) 100 ML IVPB SCH ×2 (09:38→21:11)
[2017-03-14] MEDS: TOPIRAMATE 100 MG TAB PO SCH ×2 (09:39→21:11)
[2017-03-14] MEDS: PHENYTOIN (100 MG/4 ML) CUP GTB SCH ×4 (09:39→21:11)
[2017-03-14] MEDS: FLUCONAZOLE 100 MG TAB GTB SCH (09:39)
[2017-03-14] MEDS: PHENOBARBITAL 32.4 MG TAB PO SCH ×2 (09:40→21:11)
[2017-03-14] MEDS: AMIODARONE 200 MG TAB GTB SCH (09:40)
[2017-03-14] MEDS: METOPROLOL 25 MG TAB GTB SCH ×2 (09:41→21:12)
[2017-03-14] MEDS: CLOTRIMAZOLE 1% 30 GM CR TOP SCH (09:41)
[2017-03-14] MEDS: BALSAM PERU/CASTOR OIL 60 GM TUBE TOP SCH (09:42)
--- NOTE | 2017-03-14 09:54 | PN ---
Date/Time of Note Date/Time of Note DATE: 03/14/17 TIME: 09:52 Assessment/Plan VTE Prophylaxis VTE Prophylaxis Intervention: SCD's Lines/Catheters IV Catheter Type (from Nrs): Mid Line Urinary Cath still in place: Yes Reason Cath still needed: urinary retention Assessment/Plan Chief Complaint/Hosp Course Assessment/Plan: 61 yo F past medical history paroxysmal A. fib, with recent long hospital stay for gallstone pancreatitis c/b pseudocyst formation requiring drainage transferred from [place] as concern for change in characteristics of abd fluid collection. PLAN -general surgery following, IR v operative intervention -plan for IR drain adjustment/placement Left quadrant per surgery recommendations, and for this later today -cont abx from [place], ID following -cont AED -cont vent weaning, pulm following, trach in place -cont TFs through PEG -cont ortiz for urinary retention -Monitor LFTs -Monitor heart rate on telemetry -left mastoiditis, follow-up ID recommendations, continue current antibiotics Problems: Subjective 24 Hr Interval Summary Free Text/Dictation Apparently patient did have 8 beats of V. tach last night, presently heart rate is stable, otherwise no other acute events overnight, still in restraints, awaiting IR procedure for later today. Exam/Review of Systems Vital Signs Vitals Vital Signs Date Time Temp Pulse Resp B/P Pulse Ox O2 Delivery O2 Flow Rate FiO2 03/14/17 08:50 93 03/14/17 07:47 98.4 19 112/65 98 03/14/17 06:05 T Tube 8.0 03/14/17 04:40 28 Intake and Output 03/13/17 03/13/17 03/14/17 15:00 23:00 07:00 Intake Total 100 ml 800 ml 400 ml Output Total 925 ml 665 ml Balance 100 ml -125 ml -265 ml Exam nad presently, sitting up in bed, in restraints Supple PEG in place abd drain with somewhat cloudy yellow-brownish output lungs clear nbo rashes Results Result Diagram: 03/14/17 0702 03/14/17 0702 Results 24 hrs Laboratory Tests Test 03/13/17 12:21 03/13/17 17:28 03/14/17 00:20 03/14/17 05:55 Bedside Glucose 105 103 113 94 Test 03/14/17 07:02 White Blood Count 8.8 # Red Blood Count 3.56 L Hemoglobin 10.5 L Hematocrit 33.7 L Mean Corpuscular Volume 94.7 Mean Corpuscular Hemoglobin 29.5 Mean Corpuscular Hemoglobin Concent 31.2 L Red Cell Distribution Width 16.0 H Platelet Count 488 H Mean Platelet Volume 8.7 Neutrophils % 64.6 Lymphocytes % 25.1 Monocytes % 8.3 Eosinophils % 1.0 Basophils % 0.7 Nucleated Red Blood Cells % 0.0 Neutrophils # (Manual) 5.7 Lymphocytes # 2.2 Monocytes # 0.7 Eosinophils # 0.1 Basophils # 0.1 Nucleated Red Blood Cells # 0.0 Prothrombin Time 15.3 H Prothrombin Time Ratio 1.2 INR International Normalized Ratio 1.20 Activated Partial Thromboplast Time 33.1 Sodium Level 138 Potassium Level 3.8 Chloride Level 108 Carbon Dioxide Level 22 Anion Gap 12 Blood Urea Nitrogen 17 Creatinine 0.56 Glucose Level 92 Calcium Level 9.1 Phosphorus Level 4.9 Magnesium Level 1.7 Total Bilirubin 0.0 L Direct Bilirubin 0.00 Indirect Bilirubin 0.0 Aspartate Amino Transf (AST/SGOT) 36 Alanine Aminotransferase (ALT/SGPT) 54 Alkaline Phosphatase 317 H Total Protein 7.6 Albumin 2.9 L Medications Medications Current Medications Lorazepam (Ativan) 1 mg Q4H PRN IV agitation Last administered on 03/11/17 06: 27; Admin Dose 1 MG; Start 03/11/17 at 03:00 Insulin Aspart (Novolog Insulin Pen) NOVOLOG *MODERATE* ALGORI... Q6 SC ; Start 03/11/17 at 06:00 Acetaminophen (Tylenol Liquid) 650 mg Q4H PRN GTB PAIN AND OR ELEVATED TEMP Last administered on 03/14/17 06:00; Admin Dose 650 MG; Start 03/11/17 at 03:00 Al Hydrox/Mg Hydrox/Simethicone (Mag-Al Plus) 30 ml Q4H PRN GTB GASTROINTESTINAL UPSET; Start 03/11/17 at 03:00 Amiodarone HCl (Cordarone) 200 mg DAILY GTB Last administered on 03/14/17 09: 40; Admin Dose 200 MG; Start 03/11/17 at 09:00 Clonazepam (Klonopin) 0.5 mg Q8 GTB Last administered on 03/14/17 06:00; Admin Dose 0.5 MG; Start 03/11/17 at 06:00 Clotrimazole (Lotrimin Cr) 1 applic AM TOP Last administered on 03/14/17 09:41 ; Admin Dose 1 APPLIC; Start 03/11/17 at 09:00 Docusate Sodium (Colace Liquid Cup) 100 mg BID GTB Last administered on 21:49; Admin Dose 100 MG; Start 03/11/17 at 09:00 Epoetin Mina (Epogen (Esrd)) 1,000 units MoWeFr@17 SC Last administered on 03/13 18:01; Admin Dose 1,000 UNITS; Start 03/13/17 at 17:00 Fluconazole (Diflucan) 100 mg DAILY GTB Last administered on 03/14/17 09:39; Admin Dose 100 MG; Start 03/11/17 at 09:00 Miscellaneous Information 1 ea NOTE XX ; Start 03/11/17 at 03:15 Glucose (Glutose) 15 gm Q15M PRN PO DECREASED GLUCOSE; Start 03/11/17 at 03:15 Glucose (Glutose) 22.5 gm Q15M PRN PO DECREASED GLUCOSE; Start 03/11/17 at 03:15 Dextrose (D50w Syringe) 25 ml Q15M PRN IV DECREASED GLUCOSE; Start 03/11/17 at 03:15 Dextrose (D50w Syringe) 50 ml Q15M PRN IV DECREASED GLUCOSE; Start 03/11/17 at 03:15 Glucagon (Glucagen) 1 mg Q15M PRN IM DECREASED GLUCOSE; Start 03/11/17 at 03:15 Glucose (Glutose) 15 gm Q15M PRN BUCCAL DECREASED GLUCOSE; Start 03/11/17 at 03: 15 Acetaminophen/ Hydrocodone Bitart ([place] (5/325)) 1 tab Q6H PRN GTB pain Last administered on 03/13/17 03:03; Admin Dose 1 TAB; Start 03/11/17 at 03:30 Ondansetron HCl (Zofran Inj) 4 mg Q6H PRN IV NAUSEA AND/OR VOMITING; Start 03/11 at 03:30 Phenobarbital (Luminal) 64.8 mg BID PO Last administered on 03/14/17 09:40; Admin Dose 64.8 MG; Start 03/11/17 at 09:00 Phenytoin (Dilantin Susp Cup) 100 mg TID GTB Last administered on 03/14/17 09: 39; Admin Dose 100 MG; Start 03/11/17 at 09:00 Topiramate 200 mg 200 mg BID PO Last administered on 03/14/17 09:39; Admin Dose 200 MG; Start 03/11/17 at 09:00 Levetiracetam 100 ml @ 400 mls/hr Q12 IVPB Last administered on 03/14/17 09: 38; Admin Dose 400 MLS/HR; Start 03/11/17 at 09:00 Levofloxacin/ Dextrose (Levaquin 500mg/ D5W 100 ml (Pmx)) 100 ml @ 100 mls/hr Q24H IVPB Last administered on 03/14/17 04:22; Admin Dose 100 MLS/HR; Start at 03:30 Loperamide HCl (Imodium Cap) 2 mg Q6H PRN GTB diarrhea; Start 03/11/17 at 03:30 Magnesium Hydroxide (Milk Of Mag) 30 ml DAILY PRN PO CONSTIPATION; Start at 03:30 Metoprolol Tartrate (Lopressor) 25 mg BID GTB Last administered on 03/14/17 09 :41; Admin Dose 25 MG; Start 03/11/17 at 09:00 Ondansetron HCl (Zofran Inj) 4 mg Q6H PRN IV NAUSEA AND/OR VOMITING; Start 03/11 at 03:30 Acetaminophen (Tylenol Supp) 650 mg Q6H PRN [place] PAIN LEVEL 1-3 OR FEVER; Start 03/11/17 at 03:30 Multivitamins Therapeutic (Theragran) 1 tab DAILY PO ; Start 03/14/17 at 10:00; Status UNV Zinc Sulfate (Zinc Sulfate) 220 mg DAILY PO ; Start 03/14/17 at 10:00; Status UNV Ascorbic Acid (Vitamin C) 500 mg DAILY PO ; Start 03/14/17 at 10:00; Status UNV CARYN ESCOTO Mar 14, 2017 09:54
[2017-03-14] MEDS: ASCORBIC ACID 500 MG TAB PO SCH ×2 (10:00→15:39)
[2017-03-14] MEDS: ZINC SULFATE 220 MG CAP PO SCH ×2 (10:00→15:39)
[2017-03-14] MEDS: MULTIVITAMINS THERAPEUTIC TAB PO SCH ×2 (10:00→15:39)
--- NOTE | 2017-03-14 10:35 | RADRPT ---
PROCEDURE: X-ray, Abdomen. CLINICAL INDICATION: Pain. TECHNIQUE: Abdominal x-ray, single frontal view. COMPARISON: CT abdomen/pelvis 03/08/2017. FINDINGS: A nonobstructive bowel gas pattern is present. There is no evidence of free intra-abdominal air. T here are no abnormal calcifications. A percutaneous drainage catheter is seen within the left side o f the abdomen. A percutaneous gastrojejunostomy tube is also in place. An internal biliary stent is also observed. Surgical clips are seen within the right side of the abdomen. Degenerative changes of the spine are present. IMPRESSION: No evidence of acute intra-abdominal pathology. Intra-abdominal tubes and catheters, as above. RPTAT: [facility] .Nery Santamaria MD, MD Date Time Electronically viewed and signed by .Nery Santamaria MD, MD on 03/14/2017 10:35 .T/
--- NOTE | 2017-03-14 11:20 | CONS ---
Date/Time of Note Date/Time of Note DATE: 03/14/17 TIME: : Assessment/Plan Assessment/Plan Additional Assessment/Plan Assessment and recommendations; 1. Patient admitted for sepsis with significant clinical improvement. 2. History of recent gallstone pancreatitis, still draining mucopurulent fluid from left upper quadrant abdominal drain. 3. Chronic respiratory failure, status post tracheostomy however patient doing very well on T piece. 4. Generalized deconditioning. Continue current treatment. Consultation Date/Type/Reason Admit Date/Time Mar 11, 2017 at 02:03 Type of Consultation: Pulmonary 24 HR Interval Summary Free Text/Dictation Patient's condition remains stable. Remains awake and alert. Has remained hemodynamically stable. General exam; elderly woman, awake and alert. On T piece via tracheostomy. Exam/Review of Systems Vital Signs Vitals Vital Signs Date Time Temp Pulse Resp B/P Pulse Ox O2 Delivery O2 Flow Rate FiO2 03/14/17 08:50 93 03/14/17 08:20 8.0 03/14/17 07:47 98.4 19 112/65 98 03/14/17 06:05 T Tube 03/14/17 04:40 28 Intake and Output 03/13/17 03/13/17 03/14/17 15:00 23:00 07:00 Intake Total 100 ml 800 ml 400 ml Output Total 925 ml 665 ml Balance 100 ml -125 ml -265 ml Exam HEENT exam; supple neck, no JVD. No lymphadenopathy. Midline trachea. No thyromegaly. Tracheostomy in place. Patient has fair dentition. Pupils are midsize and reactive to light. Chest exam; diminished but clear breath sounds. S1-S2 audible, no murmurs. Regular rhythm. Abdomen exam; soft, nontender. There is a G-tube in place. Left upper quadrant drain in place. Extremity exam; no peripheral edema. 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 Results Result Diagram: 03/14/17 0702 03/14/17 0702 Results 24 hrs Laboratory Tests Test 03/13/17 12:21 03/13/17 17:28 03/14/17 00:20 03/14/17 05:55 Bedside Glucose 105 103 113 94 Test 03/14/17 07:02 White Blood Count 8.8 # Red Blood Count 3.56 L Hemoglobin 10.5 L Hematocrit 33.7 L Mean Corpuscular Volume 94.7 Mean Corpuscular Hemoglobin 29.5 Mean Corpuscular Hemoglobin Concent 31.2 L Red Cell Distribution Width 16.0 H Platelet Count 488 H Mean Platelet Volume 8.7 Neutrophils % 64.6 Lymphocytes % 25.1 Monocytes % 8.3 Eosinophils % 1.0 Basophils % 0.7 Nucleated Red Blood Cells % 0.0 Neutrophils # (Manual) 5.7 Lymphocytes # 2.2 Monocytes # 0.7 Eosinophils # 0.1 Basophils # 0.1 Nucleated Red Blood Cells # 0.0 Prothrombin Time 15.3 H Prothrombin Time Ratio 1.2 INR International Normalized Ratio 1.20 Activated Partial Thromboplast Time 33.1 Sodium Level 138 Potassium Level 3.8 Chloride Level 108 Carbon Dioxide Level 22 Anion Gap 12 Blood Urea Nitrogen 17 Creatinine 0.56 Glucose Level 92 Calcium Level 9.1 Phosphorus Level 4.9 Magnesium Level 1.7 Total Bilirubin 0.0 L Direct Bilirubin 0.00 Indirect Bilirubin 0.0 Aspartate Amino Transf (AST/SGOT) 36 Alanine Aminotransferase (ALT/SGPT) 54 Alkaline Phosphatase 317 H Total Protein 7.6 Albumin 2.9 L Medications Medications Current Medications Lorazepam (Ativan) 1 mg Q4H PRN IV agitation Last administered on 03/11/17 06: 27; Admin Dose 1 MG; Start 03/11/17 at 03:00 Insulin Aspart (Novolog Insulin Pen) NOVOLOG *MODERATE* ALGORI... Q6 SC ; Start 03/11/17 at 06:00 Acetaminophen (Tylenol Liquid) 650 mg Q4H PRN GTB PAIN AND OR ELEVATED TEMP Last administered on 03/14/17 06:00; Admin Dose 650 MG; Start 03/11/17 at 03:00 Al Hydrox/Mg Hydrox/Simethicone (Mag-Al Plus) 30 ml Q4H PRN GTB GASTROINTESTINAL UPSET; Start 03/11/17 at 03:00 Amiodarone HCl (Cordarone) 200 mg DAILY GTB Last administered on 03/14/17 09: 40; Admin Dose 200 MG; Start 03/11/17 at 09:00 Clonazepam (Klonopin) 0.5 mg Q8 GTB Last administered on 03/14/17 06:00; Admin Dose 0.5 MG; Start 03/11/17 at 06:00 Clotrimazole (Lotrimin Cr) 1 applic AM TOP Last administered on 03/14/17 09:41 ; Admin Dose 1 APPLIC; Start 03/11/17 at 09:00 Docusate Sodium (Colace Liquid Cup) 100 mg BID GTB Last administered on 21:49; Admin Dose 100 MG; Start 03/11/17 at 09:00 Epoetin Mina (Epogen (Esrd)) 1,000 units MoWeFr@17 SC Last administered on 03/13 18:01; Admin Dose 1,000 UNITS; Start 03/13/17 at 17:00 Fluconazole (Diflucan) 100 mg DAILY GTB Last administered on 03/14/17 09:39; Admin Dose 100 MG; Start 03/11/17 at 09:00 Miscellaneous Information 1 ea NOTE XX ; Start 03/11/17 at 03:15 Glucose (Glutose) 15 gm Q15M PRN PO DECREASED GLUCOSE; Start 03/11/17 at 03:15 Glucose (Glutose) 22.5 gm Q15M PRN PO DECREASED GLUCOSE; Start 03/11/17 at 03:15 Dextrose (D50w Syringe) 25 ml Q15M PRN IV DECREASED GLUCOSE; Start 03/11/17 at 03:15 Dextrose (D50w Syringe) 50 ml Q15M PRN IV DECREASED GLUCOSE; Start 03/11/17 at 03:15 Glucagon (Glucagen) 1 mg Q15M PRN IM DECREASED GLUCOSE; Start 03/11/17 at 03:15 Glucose (Glutose) 15 gm Q15M PRN BUCCAL DECREASED GLUCOSE; Start 03/11/17 at 03: 15 Acetaminophen/ Hydrocodone Bitart ([place] (5/325)) 1 tab Q6H PRN GTB pain Last administered on 03/13/17 03:03; Admin Dose 1 TAB; Start 03/11/17 at 03:30 Ondansetron HCl (Zofran Inj) 4 mg Q6H PRN IV NAUSEA AND/OR VOMITING; Start 03/11 at 03:30 Phenobarbital (Luminal) 64.8 mg BID PO Last administered on 03/14/17 09:40; Admin Dose 64.8 MG; Start 03/11/17 at 09:00 Phenytoin (Dilantin Susp Cup) 100 mg TID GTB Last administered on 03/14/17 09: 39; Admin Dose 100 MG; Start 03/11/17 at 09:00 Topiramate 200 mg 200 mg BID PO Last administered on 03/14/17 09:39; Admin Dose 200 MG; Start 03/11/17 at 09:00 Levetiracetam 100 ml @ 400 mls/hr Q12 IVPB Last administered on 03/14/17 09: 38; Admin Dose 400 MLS/HR; Start 03/11/17 at 09:00 Levofloxacin/ Dextrose (Levaquin 500mg/ D5W 100 ml (Pmx)) 100 ml @ 100 mls/hr Q24H IVPB Last administered on 03/14/17 04:22; Admin Dose 100 MLS/HR; Start at 03:30 Loperamide HCl (Imodium Cap) 2 mg Q6H PRN GTB diarrhea; Start 03/11/17 at 03:30 Magnesium Hydroxide (Milk Of Mag) 30 ml DAILY PRN PO CONSTIPATION; Start at 03:30 Metoprolol Tartrate (Lopressor) 25 mg BID GTB Last administered on 03/14/17 09 :41; Admin Dose 25 MG; Start 03/11/17 at 09:00 Ondansetron HCl (Zofran Inj) 4 mg Q6H PRN IV NAUSEA AND/OR VOMITING; Start 03/11 at 03:30 Acetaminophen (Tylenol Supp) 650 mg Q6H PRN [place] PAIN LEVEL 1-3 OR FEVER; Start 03/11/17 at 03:30 Multivitamins Therapeutic (Theragran) 1 tab DAILY PO ; Start 03/14/17 at 10:00 Zinc Sulfate (Zinc Sulfate) 220 mg DAILY PO ; Start 03/14/17 at 10:00 Ascorbic Acid (Vitamin C) 500 mg DAILY PO ; Start 03/14/17 at 10:00 JAYME QUEZADA Mar 14, 2017 11:20
[2017-03-14] MEDS ORDERED: FENTAnyl 50 MCG/ML VIAL ONE ×2 (11:46)
[2017-03-14] MEDS ORDERED: GLYCOPYRROLATE 0.4 MG INJ ONE (11:46)
[2017-03-14] MEDS ORDERED: PROPOFOL 20 ML ONE (11:46)
[2017-03-14] MEDS ORDERED: ROCURONIUM 50 MG INJ ONE (11:47)
[2017-03-14] MEDS ORDERED: LIDOCAINE 1% (MDV) 20 ML INJ ONE (12:05)
[2017-03-14] MEDS ORDERED: SOD CHLORIDE 0.9% 500 ML ONE (12:06)
--- NOTE | 2017-03-14 14:09 | RADRPT ---
PROCEDURE: CT guided abdominal abscess drainage. CLINICAL INDICATION: Left flank abdominal abscess. TECHNIQUE: Informed consent was obtained. The procedure, risks, benefits, complications and alternatives were explained to the patient or the patient's family. Risks including bleeding and infection were explai red. The patient or the patient's family understood and was willing to proceed. A procedural pause was performed. The patient's name, date of , and procedure to be performed were verified. One or more of the following dose reduction techniques were used: Automated exposure control, adjustmen t of the mA and/or kV according to patient size, use of iterative reconstruction technique. Using local anesthetic, sterile technique and CT guidance, a 19-gauge Yueh needle was advanced into the fluid collection in the left flank superiorly. CT scan was performed confirming position. Puru lent fluid was also aspirated confirming position. The needle from the Yueh catheter was removed, l eaving the Yueh catheter in place within the fluid collection. A 0.035-inch Amplatz guidewire was a dvanced through the Yueh catheter into the fluid collection. The Yueh catheter was removed. The tr act was dilated to 10-Angolan and a 10-Angolan multipurpose drainage catheter was advanced over the gu idewire into the fluid collection. The guidewire was removed. Additional scanning was performed co nfirming position. The catheter was then sutured to the patient's skin with 2-0 silk. Approximatel y 10 ml of purulent fluid was aspirated. The catheter was connected to a drainage bag. A dressing was applied. Using local anesthetic, sterile technique and CT guidance, a 0.035-inch Amplatz guidewire was advanc ed through the existing drainage catheter into the fluid collection in the left flank inferiorly. T he existing drainage catheter was removed. The tract was dilated to 10-Angolan and a 10-Angolan multi purpose drainage catheter was advanced over the guidewire into the fluid collection. The guidewire was removed. Additional scanning was performed confirming position. The catheter was then sutured to the patient's skin with 2-0 silk. Approximately 10 ml of purulent fluid was aspirated. The cath eter was connected to a drainage bag. A dressing was applied. The patient tolerated procedure well. COMPARISON: CT scan of the abdomen and pelvis dated 03/08/2017. FINDINGS: Final images demonstrate the 2 drainage catheters in satisfactory position within the fluid collecti on in the left flank. IMPRESSION: 1. Successful CT guided abdominal fluid collection drainage. RPTAT: QQ .Larry Box MD, Date Time Electronically viewed and signed by .Larry Box MD, on 03/14/2017 14:09 .R/
--- NOTE | 2017-03-14 14:29 | PN ---
Date/Time of Note Date/Time of Note DATE: 03/14/17 TIME: 14:23 Assessment/Plan Lines/Catheters IV Catheter Type (from [facility]): Peripheral IV Matias in Place (from [facility]): Yes Assessment/Plan Chief Complaint/Hosp Course 1. Peripancreatic fluid collection: drain in place with increased output yesterday. pending drain adjustment today -continue drain to bulb suction -per gi/hepatology recs -abx per sensitivity 2. Mastoiditis -cont abx 3. Hx. of respiratory failure with trach: comfortable on trach collar -supportive -pulmonary toilet 4. Dysphagia with PEG placement -cont tf with aspiration precautions 5. Thrombocytosis: likely 2/2 #1 -supportive -as above 6. Transaminitis: 2/2 #1 -supportive -as above 7. Leukocytosis: No fevers chills: normalized -as above 8. Confusion/agitation: currently pulling at tubes and drains, on restraints -supportive -attempt less restrictive measures and dc restraint as able Thank you. Patient seen and examined in collaboration with Dr. Vladimir Kirkpatrick. Problems: Subjective 24 Hr Interval Summary Pending drainage tube adjustment today. Output from tube much improved. Continues on restraints, intermittent pulling of drains/tubes. No fevers, chills , diarrhea, vomiting, new wounds, sz. Exam/Review of Systems Vital Signs Vitals Vital Signs Date Time Temp Pulse Resp B/P Pulse Ox O2 Delivery O2 Flow Rate FiO2 03/14/17 14:11 82 26 107/68 100 03/14/17 14:01 Trach Collar 6.0 03/14/17 13:36 98.0 03/14/17 07:50 28 Intake and Output 03/13/17 03/13/17 03/14/17 15:00 23:00 07:00 Intake Total 100 ml 800 ml 400 ml Output Total 925 ml 665 ml Balance 100 ml -125 ml -265 ml Exam Free Text/Dictation Constitutional: alert, tracks No distress, No oriented Psych: nl mood/affect, no complaints, confused; intermittent agitation Head: atraumatic, normocephalic Eyes: nl lids, nl sclera ENMT: mucosa pink and moist Neck: non-tender, trach with trach collar Respiratory: normal air movement, No congested cough Cardiovascular: nl pulses, regular rate and rhythm Gastrointestinal: non-tender, other (peg, left flank drain with creamy drainage in bag), soft, No distended Musculoskeletal: muscle weakness, nl extremities to inspection Extremities: normal pulses, No edema Neurological: confused, No nl mental status Skin: No rash or lesions Results Result Diagram: 03/14/17 0702 03/14/17 0702 JOSE LUIS ORO NP Mar 14, 2017 14:29
--- NOTE | 2017-03-14 15:42 | CONS ---
Date/Time of Note Date/Time of Note DATE: 03/14/17 TIME: 15:41 Assessment/Plan Assessment/Plan Additional Assessment/Plan History of pancreatitis with abdominal fluid collection Paroxysmal atrial fibrillation, currently sinus rhythm Respiratory failure Preserved ejection fraction Hypertension -Blood pressure trend remains stable. Continue amiodarone and beta-linda as heart rate permits. Decrease amiodarone to 100mg daily. Suppl Mg to maintain > 2.0 and K > 4.0 Consultation Date/Type/Reason Admit Date/Time Mar 11, 2017 at 02:03 Initial Consult Date 03/11/17 Type of Consultation: cv 24 HR Interval Summary Free Text/Dictation pt s/p CT guided drainage Exam/Review of Systems Vital Signs Vitals Vital Signs Date Time Temp Pulse Resp B/P Pulse Ox O2 Delivery O2 Flow Rate FiO2 03/14/17 15:34 97.6 21 110/60 99 Trach Collar 6.0 03/14/17 14:11 82 03/14/17 07:50 28 Intake and Output 03/13/17 03/13/17 03/14/17 15:00 23:00 07:00 Intake Total 100 ml 800 ml 400 ml Output Total 925 ml 665 ml Balance 100 ml -125 ml -265 ml Exam nad, following commands Constitutional: alert Head: normocephalic Respiratory: other (course bs, no wheeze) Gastrointestinal: bowel sounds, non-tender, soft Extremities: edema Results Result Diagram: 03/14/17 0702 03/14/17 0702 Results 24 hrs Laboratory Tests Test 03/13/17 17:28 03/14/17 00:20 03/14/17 05:55 03/14/17 07:02 Bedside Glucose 103 113 94 White Blood Count 8.8 # Red Blood Count 3.56 L Hemoglobin 10.5 L Hematocrit 33.7 L Mean Corpuscular Volume 94.7 Mean Corpuscular Hemoglobin 29.5 Mean Corpuscular Hemoglobin Concent 31.2 L Red Cell Distribution Width 16.0 H Platelet Count 488 H Mean Platelet Volume 8.7 Neutrophils % 64.6 Lymphocytes % 25.1 Monocytes % 8.3 Eosinophils % 1.0 Basophils % 0.7 Nucleated Red Blood Cells % 0.0 Neutrophils # (Manual) 5.7 Lymphocytes # 2.2 Monocytes # 0.7 Eosinophils # 0.1 Basophils # 0.1 Nucleated Red Blood Cells # 0.0 Prothrombin Time 15.3 H Prothrombin Time Ratio 1.2 INR International Normalized Ratio 1.20 Activated Partial Thromboplast Time 33.1 Sodium Level 138 Potassium Level 3.8 Chloride Level 108 Carbon Dioxide Level 22 Anion Gap 12 Blood Urea Nitrogen 17 Creatinine 0.56 Glucose Level 92 Calcium Level 9.1 Phosphorus Level 4.9 Magnesium Level 1.7 Total Bilirubin 0.0 L Direct Bilirubin 0.00 Indirect Bilirubin 0.0 Aspartate Amino Transf (AST/SGOT) 36 Alanine Aminotransferase (ALT/SGPT) 54 Alkaline Phosphatase 317 H Total Protein 7.6 Albumin 2.9 L Test 03/14/17 11:20 Bedside Glucose 89 Medications Medications Current Medications Lorazepam (Ativan) 1 mg Q4H PRN IV agitation Last administered on 03/11/17 06: 27; Admin Dose 1 MG; Start 03/11/17 at 03:00 Insulin Aspart (Novolog Insulin Pen) NOVOLOG *MODERATE* ALGORI... Q6 SC ; Start 03/11/17 at 06:00 Acetaminophen (Tylenol Liquid) 650 mg Q4H PRN GTB PAIN AND OR ELEVATED TEMP Last administered on 03/14/17 06:00; Admin Dose 650 MG; Start 03/11/17 at 03:00 Al Hydrox/Mg Hydrox/Simethicone (Mag-Al Plus) 30 ml Q4H PRN GTB GASTROINTESTINAL UPSET; Start 03/11/17 at 03:00 Amiodarone HCl (Cordarone) 200 mg DAILY GTB Last administered on 03/14/17 09: 40; Admin Dose 200 MG; Start 03/11/17 at 09:00 Clonazepam (Klonopin) 0.5 mg Q8 GTB Last administered on 03/14/17 15:39; Admin Dose 0.5 MG; Start 03/11/17 at 06:00 Clotrimazole (Lotrimin Cr) 1 applic AM TOP Last administered on 03/14/17 09:41 ; Admin Dose 1 APPLIC; Start 03/11/17 at 09:00 Docusate Sodium (Colace Liquid Cup) 100 mg BID GTB Last administered on 21:49; Admin Dose 100 MG; Start 03/11/17 at 09:00 Epoetin Mina (Epogen (Esrd)) 1,000 units MoWeFr@17 SC Last administered on 03/13 18:01; Admin Dose 1,000 UNITS; Start 03/13/17 at 17:00 Fluconazole (Diflucan) 100 mg DAILY GTB Last administered on 03/14/17 09:39; Admin Dose 100 MG; Start 03/11/17 at 09:00 Miscellaneous Information 1 ea NOTE XX ; Start 03/11/17 at 03:15 Glucose (Glutose) 15 gm Q15M PRN PO DECREASED GLUCOSE; Start 03/11/17 at 03:15 Glucose (Glutose) 22.5 gm Q15M PRN PO DECREASED GLUCOSE; Start 03/11/17 at 03:15 Dextrose (D50w Syringe) 25 ml Q15M PRN IV DECREASED GLUCOSE; Start 03/11/17 at 03:15 Dextrose (D50w Syringe) 50 ml Q15M PRN IV DECREASED GLUCOSE; Start 03/11/17 at 03:15 Glucagon (Glucagen) 1 mg Q15M PRN IM DECREASED GLUCOSE; Start 03/11/17 at 03:15 Glucose (Glutose) 15 gm Q15M PRN BUCCAL DECREASED GLUCOSE; Start 03/11/17 at 03: 15 Acetaminophen/ Hydrocodone Bitart ([place] (5/325)) 1 tab Q6H PRN GTB pain Last administered on 03/13/17 03:03; Admin Dose 1 TAB; Start 03/11/17 at 03:30 Ondansetron HCl (Zofran Inj) 4 mg Q6H PRN IV NAUSEA AND/OR VOMITING; Start 03/11 at 03:30 Phenobarbital (Luminal) 64.8 mg BID PO Last administered on 03/14/17 09:40; Admin Dose 64.8 MG; Start 03/11/17 at 09:00 Phenytoin (Dilantin Susp Cup) 100 mg TID GTB Last administered on 03/14/17 15: 38; Admin Dose 100 MG; Start 03/11/17 at 09:00 Topiramate 200 mg 200 mg BID PO Last administered on 03/14/17 09:39; Admin Dose 200 MG; Start 03/11/17 at 09:00 Levetiracetam 100 ml @ 400 mls/hr Q12 IVPB Last administered on 03/14/17 09: 38; Admin Dose 400 MLS/HR; Start 03/11/17 at 09:00 Levofloxacin/ Dextrose (Levaquin 500mg/ D5W 100 ml (Pmx)) 100 ml @ 100 mls/hr Q24H IVPB Last administered on 03/14/17 04:22; Admin Dose 100 MLS/HR; Start at 03:30 Loperamide HCl (Imodium Cap) 2 mg Q6H PRN GTB diarrhea; Start 03/11/17 at 03:30 Magnesium Hydroxide (Milk Of Mag) 30 ml DAILY PRN PO CONSTIPATION; Start at 03:30 Metoprolol Tartrate (Lopressor) 25 mg BID GTB Last administered on 03/14/17 09 :41; Admin Dose 25 MG; Start 03/11/17 at 09:00 Ondansetron HCl (Zofran Inj) 4 mg Q6H PRN IV NAUSEA AND/OR VOMITING; Start 03/11 at 03:30 Acetaminophen (Tylenol Supp) 650 mg Q6H PRN [place] PAIN LEVEL 1-3 OR FEVER; Start 03/11/17 at 03:30 Multivitamins Therapeutic (Theragran) 1 tab DAILY PO Last administered on 15:39; Admin Dose 1 TAB; Start 03/14/17 at 10:00 Zinc Sulfate (Zinc Sulfate) 220 mg DAILY PO Last administered on 03/14/17 15: 39; Admin Dose 220 MG; Start 03/14/17 at 10:00 Ascorbic Acid (Vitamin C) 500 mg DAILY PO Last administered on 03/14/17 15:39 ; Admin Dose 500 MG; Start 03/14/17 at 10:00 Vlad Leyva DO Mar 14, 2017 15:42
--- NOTE | 2017-03-14 15:48 | RADRPT ---
PROCEDURE: CT guided abdominal abscess drainage. CLINICAL INDICATION: Left flank abdominal abscess. TECHNIQUE: Informed consent was obtained. The procedure, risks, benefits, complications and alternatives were e xplained to the patient or the patient's family. Risks including bleeding and infection were explain ed. The patient or the patient's family understood and was willing to proceed. A procedural pause wa s performed. The patient's name, date of , and procedure to be performed were verified. One or more of the following dose reduction techniques were used: Automated exposure control, adjustment of the mA and/or kV according to patient size, use of iterative reconstruction technique. Using local anesthetic, sterile technique and CT guidance, a 19-gauge Yueh needle was advanced into the fluid collection in the left flank superiorly. CT scan was performed confirming position. Purule nt fluid was also aspirated confirming position. The needle from the Yueh catheter was removed, leav ing the Yueh catheter in place within the fluid collection. A 0.035-inch Amplatz guidewire was advan beatriz through the Yueh catheter into the fluid collection. The Yueh catheter was removed. The tract wa s dilated to 10-Welsh and a 10-Welsh multipurpose drainage catheter was advanced over the guidewir e into the fluid collection. The guidewire was removed. Additional scanning was performed confirming position. The catheter was then sutured to the patient's skin with 2-0 silk. Approximately 10 ml of purulent fluid was aspirated. The catheter was connected to a drainage bag. A dressing was applied. Using local anesthetic, sterile technique and CT guidance, a 0.035-inch Amplatz guidewire was advanc ed through the existing drainage catheter into the fluid collection in the left flank inferiorly. Th e existing drainage catheter was removed. The tract was dilated to 10-Welsh and a 10-Welsh multipu rpose drainage catheter was advanced over the guidewire into the fluid collection. The guidewire was removed. Additional scanning was performed confirming position. The catheter was then sutured to th e patient's skin with 2-0 silk. Approximately 10 ml of purulent fluid was aspirated. The catheter wa s connected to a drainage bag. A dressing was applied. The patient tolerated procedure well. COMPARISON: CT scan of the abdomen and pelvis dated 03/08/2017. FINDINGS: Final images demonstrate the 2 drainage catheters in satisfactory position within the fluid collecti on in the left flank. IMPRESSION: 1. Successful CT guided abdominal fluid collection drainage. RPTAT: QQ .Larry Box MD, Date Time Electronically viewed and signed by .Larry Box MD, on 03/14/2017 15:48 .R/
[2017-03-14] MEDS ORDERED: POTASSIUM CHLORIDE 20 MEQ POWDER FOR ORAL SOLN GTB ONE (16:00)
[2017-03-14] MEDS ORDERED: MAGNESIUM SULFATE 3 GM in SOD CHLORIDE 0.9% 100 ML IVPB ONE (16:00)
--- NOTE | 2017-03-14 18:43 | CONS ---
Date/Time of Note Date/Time of Note DATE: 03/14/17 TIME: 18:42 Assessment/Plan Assessment/Plan Chief Complaint/Hosp Course SUBJECTIVE DATA: No acute events overnight. The patient is awake, looks comfortable, no fevers Antimicrobials: Fluconazole, Levaquin Indwelling: trach, PEG, intra-abdominal drainage catheter. PHYSICAL EXAMINATION: GENERAL: This is a chronically ill-appearing, elderly [place] woman, who is in no distress. HEENT: Head atraumatic, normocephalic. Sclerae anicteric. Buccal mucosa dry. NECK: Supple. CHEST: Rise symmetrical. Breath sounds diminished at bases. HEART: S1, S2. ABDOMEN: Soft, bowel sounds present. EXTREMITIES: Without cyanosis. ASSESSMENT: 1. Acute complicated pancreatitis with pancreatic pseudocyst status post CT-guided pigtail catheter placement with repeat CT of the abdomen and pelvis revealed still a peripancreatic fluid collection. GS of fluid + yeast 2. Left mastoiditis. 3. Chronic respiratory failure. 4. Dysphagia. 5. History of urinary tract infection and pneumonia. 6. History of acute renal failure requiring hemodialysis, now off. PLAN: The patient remains stable. Pending CT guided fluid drainage/catheter. Continue present care. GI/pulm/surgical rec-s DW staff Problems: Consultation Date/Type/Reason Admit Date/Time Mar 11, 2017 at 02:03 Initial Consult Date 03/11/17 Type of Consultation: ID Exam/Review of Systems Vital Signs Vitals Vital Signs Date Time Temp Pulse Resp B/P Pulse Ox O2 Delivery O2 Flow Rate FiO2 03/14/17 18:21 98.6 93 18 132/69 99 03/14/17 15:34 Trach Collar 6.0 03/14/17 07:50 28 Intake and Output 03/13/17 03/13/17 03/14/17 15:00 23:00 07:00 Intake Total 100 ml 800 ml 400 ml Output Total 925 ml 665 ml Balance 100 ml -125 ml -265 ml Results Result Diagram: 03/14/17 0703/14/17701 Results 24 hrs Laboratory Tests Test 03/14/17 00:20 03/14/17 05:55 03/14/17 07:02 03/14/17 11:20 Bedside Glucose 113 94 89 White Blood Count 8.8 # Red Blood Count 3.56 L Hemoglobin 10.5 L Hematocrit 33.7 L Mean Corpuscular Volume 94.7 Mean Corpuscular Hemoglobin 29.5 Mean Corpuscular Hemoglobin Concent 31.2 L Red Cell Distribution Width 16.0 H Platelet Count 488 H Mean Platelet Volume 8.7 Neutrophils % 64.6 Lymphocytes % 25.1 Monocytes % 8.3 Eosinophils % 1.0 Basophils % 0.7 Nucleated Red Blood Cells % 0.0 Neutrophils # (Manual) 5.7 Lymphocytes # 2.2 Monocytes # 0.7 Eosinophils # 0.1 Basophils # 0.1 Nucleated Red Blood Cells # 0.0 Prothrombin Time 15.3 H Prothrombin Time Ratio 1.2 INR International Normalized Ratio 1.20 Activated Partial Thromboplast Time 33.1 Sodium Level 138 Potassium Level 3.8 Chloride Level 108 Carbon Dioxide Level 22 Anion Gap 12 Blood Urea Nitrogen 17 Creatinine 0.56 Glucose Level 92 Calcium Level 9.1 Phosphorus Level 4.9 Magnesium Level 1.7 Total Bilirubin 0.0 L Direct Bilirubin 0.00 Indirect Bilirubin 0.0 Aspartate Amino Transf (AST/SGOT) 36 Alanine Aminotransferase (ALT/SGPT) 54 Alkaline Phosphatase 317 H Total Protein 7.6 Albumin 2.9 L Test 03/14/17 17:32 Bedside Glucose 85 Medications Medications Current Medications Lorazepam (Ativan) 1 mg Q4H PRN IV agitation Last administered on 03/11/17 06: 27; Admin Dose 1 MG; Start 03/11/17 at 03:00 Insulin Aspart (Novolog Insulin Pen) NOVOLOG *MODERATE* ALGORI... Q6 SC ; Start 03/11/17 at 06:00 Acetaminophen (Tylenol Liquid) 650 mg Q4H PRN GTB PAIN AND OR ELEVATED TEMP Last administered on 03/14/17 06:00; Admin Dose 650 MG; Start 03/11/17 at 03:00 Al Hydrox/Mg Hydrox/Simethicone (Mag-Al Plus) 30 ml Q4H PRN GTB GASTROINTESTINAL UPSET; Start 03/11/17 at 03:00 Clonazepam (Klonopin) 0.5 mg Q8 GTB Last administered on 03/14/17 15:39; Admin Dose 0.5 MG; Start 03/11/17 at 06:00 Clotrimazole (Lotrimin Cr) 1 applic AM TOP Last administered on 03/14/17 09:41 ; Admin Dose 1 APPLIC; Start 03/11/17 at 09:00 Docusate Sodium (Colace Liquid Cup) 100 mg BID GTB Last administered on 21:49; Admin Dose 100 MG; Start 03/11/17 at 09:00 Epoetin Mina (Epogen (Esrd)) 1,000 units MoWeFr@17 SC Last administered on 03/13 18:01; Admin Dose 1,000 UNITS; Start 03/13/17 at 17:00 Fluconazole (Diflucan) 100 mg DAILY GTB Last administered on 03/14/17 09:39; Admin Dose 100 MG; Start 03/11/17 at 09:00 Miscellaneous Information 1 ea NOTE XX ; Start 03/11/17 at 03:15 Glucose (Glutose) 15 gm Q15M PRN PO DECREASED GLUCOSE; Start 03/11/17 at 03:15 Glucose (Glutose) 22.5 gm Q15M PRN PO DECREASED GLUCOSE; Start 03/11/17 at 03:15 Dextrose (D50w Syringe) 25 ml Q15M PRN IV DECREASED GLUCOSE; Start 03/11/17 at 03:15 Dextrose (D50w Syringe) 50 ml Q15M PRN IV DECREASED GLUCOSE; Start 03/11/17 at 03:15 Glucagon (Glucagen) 1 mg Q15M PRN IM DECREASED GLUCOSE; Start 03/11/17 at 03:15 Glucose (Glutose) 15 gm Q15M PRN BUCCAL DECREASED GLUCOSE; Start 03/11/17 at 03: 15 Acetaminophen/ Hydrocodone Bitart ([place] (5/325)) 1 tab Q6H PRN GTB pain Last administered on 03/13/17 03:03; Admin Dose 1 TAB; Start 03/11/17 at 03:30 Ondansetron HCl (Zofran Inj) 4 mg Q6H PRN IV NAUSEA AND/OR VOMITING; Start 03/11 at 03:30 Phenobarbital (Luminal) 64.8 mg BID PO Last administered on 03/14/17 09:40; Admin Dose 64.8 MG; Start 03/11/17 at 09:00 Phenytoin (Dilantin Susp Cup) 100 mg TID GTB Last administered on 03/14/17 15: 38; Admin Dose 100 MG; Start 03/11/17 at 09:00 Topiramate 200 mg 200 mg BID PO Last administered on 03/14/17 09:39; Admin Dose 200 MG; Start 03/11/17 at 09:00 Levetiracetam 100 ml @ 400 mls/hr Q12 IVPB Last administered on 03/14/17 09: 38; Admin Dose 400 MLS/HR; Start 03/11/17 at 09:00 Levofloxacin/ Dextrose (Levaquin 500mg/ D5W 100 ml (Pmx)) 100 ml @ 100 mls/hr Q24H IVPB Last administered on 03/14/17 04:22; Admin Dose 100 MLS/HR; Start at 03:30 Loperamide HCl (Imodium Cap) 2 mg Q6H PRN GTB diarrhea; Start 03/11/17 at 03:30 Magnesium Hydroxide (Milk Of Mag) 30 ml DAILY PRN PO CONSTIPATION; Start at 03:30 Metoprolol Tartrate (Lopressor) 25 mg BID GTB Last administered on 03/14/17 09 :41; Admin Dose 25 MG; Start 03/11/17 at 09:00 Ondansetron HCl (Zofran Inj) 4 mg Q6H PRN IV NAUSEA AND/OR VOMITING; Start 03/11 at 03:30 Acetaminophen (Tylenol Supp) 650 mg Q6H PRN [place] PAIN LEVEL 1-3 OR FEVER; Start 03/11/17 at 03:30 Multivitamins Therapeutic (Theragran) 1 tab DAILY PO Last administered on 15:39; Admin Dose 1 TAB; Start 03/14/17 at 10:00 Zinc Sulfate (Zinc Sulfate) 220 mg DAILY PO Last administered on 03/14/17 15: 39; Admin Dose 220 MG; Start 03/14/17 at 10:00 Ascorbic Acid (Vitamin C) 500 mg DAILY PO Last administered on 03/14/17 15:39 ; Admin Dose 500 MG; Start 03/14/17 at 10:00 Amiodarone HCl 100 mg 100 mg DAILY GTB ; Start 03/15/17 at 09:00 Magnesium Sulfate/ Sodium Chloride (Magnesium Sulfate/NS) 106 ml @ 35.333 mls/ hr ONCE ONCE IVPB Last administered on 03/14/17 18:14; Admin Dose 35.333 MLS/ HR; Start 03/14/17 at 16:00; Stop 03/14/17 at 18:59 MIKE TURCIOS NP Mar 14, 2017 18:43
[2017-03-15] VITALS (15 sets, daily range): BP systolic 106–120; BP diastolic 59–71; PULSE 83–88; RESP 16–20
[2017-03-15] MEDS: LEVOFLOXACIN 500MG/D5W (PMX) 100 ML IVPB SCH (04:33)
[2017-03-15] MEDS: clonAZEPAM 0.5 MG TAB GTB SCH ×3 (05:35→22:00)
[2017-03-15] MEDS: INSULIN ASPART [NOVOLOG] 3 ML PEN SC SCH ×4 (05:44→18:00)
[2017-03-15 07:24] LABS: BASOPHIL # 0.1 10^3/ul (0.0-0.1); BASOPHILS % 0.7 % (0.0-2.0); EOSINOPHILS # 0.1 10^3/ul (0.0-0.5); EOSINOPHILS % 0.8 % (0.0-7.0); HEMATOCRIT 35.7 % (37.0-47.0); HEMOGLOBIN 11.2 g/dl (12.0-16.0); MEAN CORPUSCULAR HEMOGLOBIN 29.9 pg (29.0-33.0); MEAN CORPUSCULAR HGB CONC 31.4 g/dl (32.0-37.0); MEAN CORPUSCULAR VOLUME 95.5 fl (82.0-101.0); MEAN PLATELET VOLUME 8.5 fl (7.4-10.4); MONOCYTE # 0.7 10^3/ul (0.3-0.9); MONOCYTES % 6.8 % (0.0-11.0); NEUTROPHILS % 71.3 % (39.0-77.0); PLATELET COUNT 458 10^3/UL (140-415); RED BLOOD COUNT 3.74 10^6/ul (4.20-5.40); RED CELL DISTRIBUTION WIDTH 15.9 % (11.5-14.5); WHITE BLOOD COUNT 10.1 10^3/ul (4.8-10.8)
[2017-03-15 07:50] LABS: CALCIUM 8.9 mg/dl (8.4-10.2); CREATININE 0.52 mg/dl (0.44-1.00)
[2017-03-15] MEDS: DOCUSATE SODIUM 10 MG/ML (10ML CUP) GTB SCH ×2 (09:11→20:30)
[2017-03-15] MEDS: PHENYTOIN (100 MG/4 ML) CUP GTB SCH ×3 (09:11→20:29)
[2017-03-15] MEDS: LEVETIRACETAM 1000 MG (PMX) 100 ML IVPB SCH ×2 (09:12→20:37)
[2017-03-15] MEDS: ZINC SULFATE 220 MG CAP PO SCH (09:12)
[2017-03-15] MEDS: FLUCONAZOLE 100 MG TAB GTB SCH (09:12)
[2017-03-15] MEDS: PHENOBARBITAL 32.4 MG TAB PO SCH ×2 (09:13→20:29)
[2017-03-15] MEDS: AMIODARONE 200 MG TAB GTB SCH (09:14)
[2017-03-15] MEDS: METOPROLOL 25 MG TAB GTB SCH ×2 (09:14→20:30)
[2017-03-15] MEDS: ASCORBIC ACID 500 MG TAB PO SCH (09:15)
[2017-03-15] MEDS: MULTIVITAMINS THERAPEUTIC TAB PO SCH (09:15)
[2017-03-15] MEDS: TOPIRAMATE 100 MG TAB PO SCH ×2 (09:15→20:30)
[2017-03-15] MEDS: BALSAM PERU/CASTOR OIL 60 GM TUBE TOP SCH (09:15)
[2017-03-15] MEDS: CLOTRIMAZOLE 1% 30 GM CR TOP SCH (09:16)
--- NOTE | 2017-03-15 09:27 | CONS ---
Date/Time of Note Date/Time of Note DATE: 03/15/17 TIME: 09:22 Assessment/Plan Assessment/Plan Additional Assessment/Plan Assessment and recommendations; 1. Patient admitted with gallstone pancreatitis with persistent drainage from abdominal drain. Status post CT-guided placement of abdominal drain. 2. Respiratory failure, patient however doing very well on tracheal T piece. 3. Generalized deconditioning. Continue current treatment. Consider adding Flagyl. Consultation Date/Type/Reason Admit Date/Time Mar 11, 2017 at 02:03 Type of Consultation: Pulmonary 24 HR Interval Summary Free Text/Dictation Patient's condition remains stable. Remains awake and alert. Underwent CT- guided abdominal abscess drainage. 10 mL of purulent fluid was removed. General exam; elderly woman, awake and alert. On T piece via tracheostomy. Currently in no distress. Exam/Review of Systems Vital Signs Vitals Vital Signs Date Time Temp Pulse Resp B/P Pulse Ox O2 Delivery O2 Flow Rate FiO2 03/15/17 09:12 87 03/15/17 07:50 97.9 18 106/59 97 03/15/17 05:00 5.0 28 03/15/17 05:00 Aerosol Intake and Output 03/14/17 03/14/17 03/15/17 15:00 23:00 07:00 Intake Total 550 ml 660 ml Output Total 392 ml 900 ml Balance 158 ml -240 ml Exam HEENT exam; supple neck, no JVD. No lymphadenopathy. Midline trachea. No thyromegaly. Tracheostomy in place. Insertion site is clean. Patient has fair dentition. Pupils are midsize and reactive to light. Chest exam; clear to auscultation. S1-S2 audible, no murmurs. Regular rhythm. Abdomen exam; soft, G-tube in place. Left upper quadrant drain in place. Bowel sounds audible. Abdomen is nontender. Extremity exam; no peripheral edema. CABLE FORMER exam; no focal deficit. Results Result Diagram: 03/15/17 0703/15/17 07 Results 24 hrs Laboratory Tests Test 03/14/17 11:20 03/14/17 17:32 03/15/17 00:48 03/15/17 05:44 Bedside Glucose 89 85 111 104 Test 03/15/17 07:01 White Blood Count 10.1 Red Blood Count 3.74 L Hemoglobin 11.2 L Hematocrit 35.7 L Mean Corpuscular Volume 95.5 Mean Corpuscular Hemoglobin 29.9 Mean Corpuscular Hemoglobin Concent 31.4 L Red Cell Distribution Width 15.9 H Platelet Count 458 H Mean Platelet Volume 8.5 Neutrophils % 71.3 Lymphocytes % 20.0 Monocytes % 6.8 Eosinophils % 0.8 Basophils % 0.7 Nucleated Red Blood Cells % 0.0 Neutrophils # (Manual) 7.2 Lymphocytes # 2.0 Monocytes # 0.7 Eosinophils # 0.1 Basophils # 0.1 Nucleated Red Blood Cells # 0.0 Sodium Level 137 Potassium Level 4.0 Chloride Level 108 Carbon Dioxide Level 23 Anion Gap 10 Blood Urea Nitrogen 15 Creatinine 0.52 Glucose Level 99 Calcium Level 8.9 Medications Medications Current Medications Lorazepam (Ativan) 1 mg Q4H PRN IV agitation Last administered on 03/11/17 06: 27; Admin Dose 1 MG; Start 03/11/17 at 03:00 Insulin Aspart (Novolog Insulin Pen) NOVOLOG *MODERATE* ALGORI... Q6 SC ; Start 03/11/17 at 06:00 Acetaminophen (Tylenol Liquid) 650 mg Q4H PRN GTB PAIN AND OR ELEVATED TEMP Last administered on 03/14/17 06:00; Admin Dose 650 MG; Start 03/11/17 at 03:00 Al Hydrox/Mg Hydrox/Simethicone (Mag-Al Plus) 30 ml Q4H PRN GTB GASTROINTESTINAL UPSET; Start 03/11/17 at 03:00 Clonazepam (Klonopin) 0.5 mg Q8 GTB Last administered on 03/15/17 05:35; Admin Dose 0.5 MG; Start 03/11/17 at 06:00 Clotrimazole (Lotrimin Cr) 1 applic AM TOP Last administered on 03/15/17 09:16 ; Admin Dose 1 APPLIC; Start 03/11/17 at 09:00 Docusate Sodium (Colace Liquid Cup) 100 mg BID GTB Last administered on 09:11; Admin Dose 100 MG; Start 03/11/17 at 09:00 Epoetin Mina (Epogen (Esrd)) 1,000 units MoWeFr@17 SC Last administered on 03/13 18:01; Admin Dose 1,000 UNITS; Start 03/13/17 at 17:00 Fluconazole (Diflucan) 100 mg DAILY GTB Last administered on 03/15/17 09:12; Admin Dose 100 MG; Start 03/11/17 at 09:00 Miscellaneous Information 1 ea NOTE XX ; Start 03/11/17 at 03:15 Glucose (Glutose) 15 gm Q15M PRN PO DECREASED GLUCOSE; Start 03/11/17 at 03:15 Glucose (Glutose) 22.5 gm Q15M PRN PO DECREASED GLUCOSE; Start 03/11/17 at 03:15 Dextrose (D50w Syringe) 25 ml Q15M PRN IV DECREASED GLUCOSE; Start 03/11/17 at 03:15 Dextrose (D50w Syringe) 50 ml Q15M PRN IV DECREASED GLUCOSE; Start 03/11/17 at 03:15 Glucagon (Glucagen) 1 mg Q15M PRN IM DECREASED GLUCOSE; Start 03/11/17 at 03:15 Glucose (Glutose) 15 gm Q15M PRN BUCCAL DECREASED GLUCOSE; Start 03/11/17 at 03: 15 Acetaminophen/ Hydrocodone Bitart ([place] (5/325)) 1 tab Q6H PRN GTB pain Last administered on 03/13/17 03:03; Admin Dose 1 TAB; Start 03/11/17 at 03:30 Ondansetron HCl (Zofran Inj) 4 mg Q6H PRN IV NAUSEA AND/OR VOMITING; Start 03/11 at 03:30 Phenobarbital (Luminal) 64.8 mg BID PO Last administered on 03/15/17 09:13; Admin Dose 64.8 MG; Start 03/11/17 at 09:00 Phenytoin (Dilantin Susp Cup) 100 mg TID GTB Last administered on 03/15/17 09: 11; Admin Dose 100 MG; Start 03/11/17 at 09:00 Topiramate 200 mg 200 mg BID PO Last administered on 03/15/17 09:15; Admin Dose 200 MG; Start 03/11/17 at 09:00 Levetiracetam 100 ml @ 400 mls/hr Q12 IVPB Last administered on 03/15/17 09: 12; Admin Dose 400 MLS/HR; Start 03/11/17 at 09:00 Levofloxacin/ Dextrose (Levaquin 500mg/ D5W 100 ml (Pmx)) 100 ml @ 100 mls/hr Q24H IVPB Last administered on 03/15/17 04:33; Admin Dose 100 MLS/HR; Start at 03:30 Loperamide HCl (Imodium Cap) 2 mg Q6H PRN GTB diarrhea; Start 03/11/17 at 03:30 Magnesium Hydroxide (Milk Of Mag) 30 ml DAILY PRN PO CONSTIPATION; Start at 03:30 Metoprolol Tartrate (Lopressor) 25 mg BID GTB Last administered on 03/15/17 09 :14; Admin Dose 25 MG; Start 03/11/17 at 09:00 Ondansetron HCl (Zofran Inj) 4 mg Q6H PRN IV NAUSEA AND/OR VOMITING; Start 03/11 at 03:30 Acetaminophen (Tylenol Supp) 650 mg Q6H PRN [place] PAIN LEVEL 1-3 OR FEVER; Start 03/11/17 at 03:30 Multivitamins Therapeutic (Theragran) 1 tab DAILY PO Last administered on 09:15; Admin Dose 1 TAB; Start 03/14/17 at 10:00 Zinc Sulfate (Zinc Sulfate) 220 mg DAILY PO Last administered on 03/15/17 09: 12; Admin Dose 220 MG; Start 03/14/17 at 10:00 Ascorbic Acid (Vitamin C) 500 mg DAILY PO Last administered on 03/15/17 09:15 ; Admin Dose 500 MG; Start 03/14/17 at 10:00 Amiodarone HCl (Cordarone) 100 mg DAILY GTB Last administered on 03/15/17 09: 14; Admin Dose 100 MG; Start 03/15/17 at 09:00 JAYME QUEZADA Mar 15, 2017 09:27
--- NOTE | 2017-03-15 14:21 | PN ---
Date/Time of Note Date/Time of Note DATE: 03/15/17 TIME: 14:15 Assessment/Plan VTE Prophylaxis VTE Prophylaxis Intervention: SCD's Lines/Catheters IV Catheter Type (from Nrs): Peripheral IV Urinary Cath still in place: Yes Reason Cath still needed: urinary retention Assessment/Plan Chief Complaint/Hosp Course Assessment/Plan: 61 yo F past medical history paroxysmal A. fib, with recent long hospital stay for gallstone pancreatitis c/b pseudocyst formation requiring drainage transferred from [facility] as concern for change in characteristics of abd fluid collection. PLAN -general surgery following, follow-up recommendations, monitor drainage from both left abdomen drains, because patient is more calm today we will attempt to DC restraints as well -cont abx from [facility], ID following -cont AED -cont vent weaning, pulm following, trach in place -cont TFs through PEG -cont ortiz for urinary retention -Monitor LFTs -Monitor heart rate on telemetry -left mastoiditis, follow-up ID recommendations, continue current antibiotics Problems: Subjective 24 Hr Interval Summary Free Text/Dictation Patient had new drain placed in left abdomen area yesterday, no acute events overnight. Exam/Review of Systems Vital Signs Vitals Vital Signs Date Time Temp Pulse Resp B/P Pulse Ox O2 Delivery O2 Flow Rate FiO2 03/15/17 12:31 86 03/15/17 11:40 97.8 16 114/66 99 03/15/17 08:10 8.0 03/15/17 05:00 28 03/15/17 05:00 Aerosol Intake and Output 03/14/17 03/14/17 03/15/17 14:59 22:59 06:59 Intake Total 550 ml 660 ml Output Total 392 ml 900 ml Balance 158 ml -240 ml Exam Lying in bed, in restraints, family at the bedside Supple PEG in place abd drains with mild cloudy yellow-brownish output lungs clear nbo rashes Results Result Diagram: 03/15/17 0701 03/15/17 0701 Results 24 hrs Laboratory Tests Test 03/14/17 17:32 03/15/17 00:48 03/15/17 05:44 03/15/17 07:01 Bedside Glucose 85 111 104 White Blood Count 10.1 Red Blood Count 3.74 L Hemoglobin 11.2 L Hematocrit 35.7 L Mean Corpuscular Volume 95.5 Mean Corpuscular Hemoglobin 29.9 Mean Corpuscular Hemoglobin Concent 31.4 L Red Cell Distribution Width 15.9 H Platelet Count 458 H Mean Platelet Volume 8.5 Neutrophils % 71.3 Lymphocytes % 20.0 Monocytes % 6.8 Eosinophils % 0.8 Basophils % 0.7 Nucleated Red Blood Cells % 0.0 Neutrophils # (Manual) 7.2 Lymphocytes # 2.0 Monocytes # 0.7 Eosinophils # 0.1 Basophils # 0.1 Nucleated Red Blood Cells # 0.0 Sodium Level 137 Potassium Level 4.0 Chloride Level 108 Carbon Dioxide Level 23 Anion Gap 10 Blood Urea Nitrogen 15 Creatinine 0.52 Glucose Level 99 Calcium Level 8.9 Test 03/15/17 11:57 Bedside Glucose 93 Medications Medications Current Medications Lorazepam (Ativan) 1 mg Q4H PRN IV agitation Last administered on 03/11/17 06: 27; Admin Dose 1 MG; Start 03/11/17 at 03:00 Insulin Aspart (Novolog Insulin Pen) NOVOLOG *MODERATE* ALGORI... Q6 SC ; Start 03/11/17 at 06:00 Acetaminophen (Tylenol Liquid) 650 mg Q4H PRN GTB PAIN AND OR ELEVATED TEMP Last administered on 03/14/17 06:00; Admin Dose 650 MG; Start 03/11/17 at 03:00 Al Hydrox/Mg Hydrox/Simethicone (Mag-Al Plus) 30 ml Q4H PRN GTB GASTROINTESTINAL UPSET; Start 03/11/17 at 03:00 Clonazepam (Klonopin) 0.5 mg Q8 GTB Last administered on 03/15/17 13:57; Admin Dose 0.5 MG; Start 03/11/17 at 06:00 Clotrimazole (Lotrimin Cr) 1 applic AM TOP Last administered on 03/15/17 09:16 ; Admin Dose 1 APPLIC; Start 03/11/17 at 09:00 Docusate Sodium (Colace Liquid Cup) 100 mg BID GTB Last administered on 09:11; Admin Dose 100 MG; Start 03/11/17 at 09:00 Epoetin Mina (Epogen (Esrd)) 1,000 units MoWeFr@17 SC Last administered on 03/13 18:01; Admin Dose 1,000 UNITS; Start 03/13/17 at 17:00 Fluconazole (Diflucan) 100 mg DAILY GTB Last administered on 03/15/17 09:12; Admin Dose 100 MG; Start 03/11/17 at 09:00 Miscellaneous Information 1 ea NOTE XX ; Start 03/11/17 at 03:15 Glucose (Glutose) 15 gm Q15M PRN PO DECREASED GLUCOSE; Start 03/11/17 at 03:15 Glucose (Glutose) 22.5 gm Q15M PRN PO DECREASED GLUCOSE; Start 03/11/17 at 03:15 Dextrose (D50w Syringe) 25 ml Q15M PRN IV DECREASED GLUCOSE; Start 03/11/17 at 03:15 Dextrose (D50w Syringe) 50 ml Q15M PRN IV DECREASED GLUCOSE; Start 03/11/17 at 03:15 Glucagon (Glucagen) 1 mg Q15M PRN IM DECREASED GLUCOSE; Start 03/11/17 at 03:15 Glucose (Glutose) 15 gm Q15M PRN BUCCAL DECREASED GLUCOSE; Start 03/11/17 at 03: 15 Acetaminophen/ Hydrocodone Bitart ([place] (5/325)) 1 tab Q6H PRN GTB pain Last administered on 03/13/17 03:03; Admin Dose 1 TAB; Start 03/11/17 at 03:30 Ondansetron HCl (Zofran Inj) 4 mg Q6H PRN IV NAUSEA AND/OR VOMITING; Start 03/11 at 03:30 Phenobarbital (Luminal) 64.8 mg BID PO Last administered on 03/15/17 09:13; Admin Dose 64.8 MG; Start 03/11/17 at 09:00 Phenytoin (Dilantin Susp Cup) 100 mg TID GTB Last administered on 03/15/17 13: 57; Admin Dose 100 MG; Start 03/11/17 at 09:00 Topiramate 200 mg 200 mg BID PO Last administered on 03/15/17 09:15; Admin Dose 200 MG; Start 03/11/17 at 09:00 Levetiracetam 100 ml @ 400 mls/hr Q12 IVPB Last administered on 03/15/17 09: 12; Admin Dose 400 MLS/HR; Start 03/11/17 at 09:00 Levofloxacin/ Dextrose (Levaquin 500mg/ D5W 100 ml (Pmx)) 100 ml @ 100 mls/hr Q24H IVPB Last administered on 03/15/17 04:33; Admin Dose 100 MLS/HR; Start at 03:30 Loperamide HCl (Imodium Cap) 2 mg Q6H PRN GTB diarrhea; Start 03/11/17 at 03:30 Magnesium Hydroxide (Milk Of Mag) 30 ml DAILY PRN PO CONSTIPATION; Start at 03:30 Metoprolol Tartrate (Lopressor) 25 mg BID GTB Last administered on 03/15/17 09 :14; Admin Dose 25 MG; Start 03/11/17 at 09:00 Ondansetron HCl (Zofran Inj) 4 mg Q6H PRN IV NAUSEA AND/OR VOMITING; Start 03/11 at 03:30 Acetaminophen (Tylenol Supp) 650 mg Q6H PRN [place] PAIN LEVEL 1-3 OR FEVER; Start 03/11/17 at 03:30 Multivitamins Therapeutic (Theragran) 1 tab DAILY PO Last administered on 09:15; Admin Dose 1 TAB; Start 03/14/17 at 10:00 Zinc Sulfate (Zinc Sulfate) 220 mg DAILY PO Last administered on 03/15/17 09: 12; Admin Dose 220 MG; Start 03/14/17 at 10:00 Ascorbic Acid (Vitamin C) 500 mg DAILY PO Last administered on 03/15/17 09:15 ; Admin Dose 500 MG; Start 03/14/17 at 10:00 Amiodarone HCl (Cordarone) 100 mg DAILY GTB Last administered on 03/15/17 09: 14; Admin Dose 100 MG; Start 03/15/17 at 09:00 CARYN ESCOTO Mar 15, 2017 14:21
[2017-03-15] MEDS: EPOETIN 3000 UNITS/1 ML INJ (ESRD) SC SCH (17:00)
--- NOTE | 2017-03-15 17:01 | PN ---
Date/Time of Note Date/Time of Note DATE: 03/15/17 TIME: 13:58 Assessment/Plan Lines/Catheters IV Catheter Type (from Nrsg): Peripheral IV Matias in Place (from Nrsg): Yes Assessment/Plan Assessment/Plan [facility] Progress Note Date of Service: 03/14/2017 Place of service: [facility] fifth floor telemetry Today's Assessment & Plan: Overall stable and appears somewhat improved. Patient is status post successful upsizing of left lower quadrant drain and placement of a new 10 Maltese drain in the left upper quadrant. Still no indication for acute surgical intervention. With the current drain arrangement, I am hopeful that the patient will continue to slowly resolve her infected pseudocyst and that no further surgical intervention would be necessary. We should also aggressively try and see if we can wean the patient off of the ventilator and to potentially get a Shiley valve onto the tracheostomy so that she can start speaking. This would also help us to get the patient to hopefully pass her swallowing test and resume oral intake. All of these would be significant improvements in the patient's care. Discussed all the above with the patient with the help of her family which was her nephew and answered all questions. Patient and family appear to understand and agreed with plans. With above assessment, I've recommended the followin. Continue current cares with flushing of drains at least 10 cc 3 times daily towards the patient 2. Aggressive intervention to get patient off the vent and put Shiley valve so patient can speak and hopefully eat 3. Swallowing eval to see if patient can eat and get her off of tube feeds 4. We're hopeful to expedite patient's recovery with above with hope of short term stay at LTAC and d/c home afterwards Thank you very much for having me involved in the care of this very pleasant patient and wonderful family. If you have any questions, please feel free to contact me at [phone]. Nature of presenting problem: High severity Please note that, given the extensive number of diagnoses or management options , the extensive amount and/or complexity of data needed to be reviewed, and high risk of complications and/or morbidity or mortality, this qualifies as high complexity type of decision-making. Disclaimer: Inadvertent spelling and grammatical errors are likely due to EHR/ dictation software use and do not reflect on the quality of delivered patient care. Also, please note that the electronic time recorded on this node does not necessarily reflect the actual time of the visit. Updated clinical summary: Very pleasant but unfortunate 61-year-old lady with multiple comorbidities and recent severe pancreatitis complicated by pseudocyst, as well as need for tracheostomy placement and tube feeding, hospitalized for the last 2-3 months, presenting with ongoing issues with pancreatic pseudocyst. Comorbidities: 1. BMI 25.9 2. Severe pancreatitis complicated by pseudocyst formation requiring drainage, as well as need for tracheostomy and PEG. Prolonged hospitalization followed by prolonged subacute care stay; prolonged hospital stay at [facility], 01/04/2017 01/27/2017 requiring multiple interventions such as ERCP as well as temporary hemodialysis for acute kidney injury, respiratory failure requiring tracheostomy and PEG placement; transferred to [place] for vent weaning since discharge on 01/27/[address]-guided left flank pseudocyst drainage by interventional radiology 02/07/2017 [facility] 4. Status post ERCP with large filling defects seen in common bile duct consistent with a stone; status post stent placement in common bile duct 2016 [facility] 5. Status post [address]-guided drainage of right flank fluid collection (removal of 200 cc of purulent fluid) 02/28/2017 [facility] Subjective: No major reported events or complaints; no major or obvious reported abd pain and seems to be under control with medications; no n/v/d; no sob or cp; ? flatus ; + reported BM; minimal activity (patient remains in soft restraints) Objective: Vitals: See below I's & O's: See below Exam: GENERAL: On exam, the patient was lying in bed and appeared to be comfortable and in no acute distress. ABDOMEN: Soft, nontender and nondistended. Drain outputs appeared to be purulent. There are no peritoneal signs or guarding. SKIN: Skin appears to be pink and feels warm to touch. NEUROLOGIC: Patient is awake, alert, and appears to be following commands appropriately. Labs: See below Exam/Review of Systems Vital Signs Vitals Vital Signs Date Time Temp Pulse Resp B/P Pulse Ox O2 Delivery O2 Flow Rate FiO2 03/15/17 16:14 88 03/15/17 15:49 98.3 16 116/66 100 03/15/17 08:10 8.0 03/15/17 05:00 28 03/15/17 05:00 Aerosol Intake and Output 03/14/17 03/14/17 03/15/17 15:00 23:00 07:00 Intake Total 550 ml 660 ml Output Total 392 ml 900 ml Balance 158 ml -240 ml Results Result Diagram: 03/15/17 0701 03/15/17 0701 KIM BELLAMY M.D. Mar 15, 2017 17:01
--- NOTE | 2017-03-15 20:37 | PN ---
DATE: 03/15/2017 SUBJECTIVE DATA: No acute changes. Patient is awake, looks comfortable. No fevers overnight. VITAL SIGNS: Temperature 97.8, pulse 78, respirations 16, blood pressure 114/66, saturation 99 percent. LABORATORY AND DIAGNOSTIC DATA: WBC 10.1, platelets 458, no shift, no bands. BUN 15, creatinine 0.52. MICROBIOLOGY: Nares swab negative for MRSA. Fluid culture pending. INDWELLINGS: Trach, PEG, left-sided double pigtail catheters. ANTIMICROBIALS: 1. Levofloxacin. 2. Fluconazole. OBJECTIVE DATA: GENERAL: This is a chronically ill-appearing, elderly [place] woman, who is awake, in no distress. HEENT: Head atraumatic, normocephalic. Sclerae anicteric. Buccal mucosa dry. NECK: Supple. Tracheostomy present. CHEST: Rise symmetrical. Breath sounds diminished at bases. HEART: S1, S2. ABDOMEN: Soft, bowel sounds present. EXTREMITIES: Without cyanosis. ASSESSMENT: 1. Acute complicated pancreatitis, with pancreatic cyst, status post CT-guided drainage placed yesterday, with the presence of previous drainage catheter. So far fluid cultures have been negative since previous admissions, but Gram stain was positive for yeast, trace amount. 2. Status post left mastoiditis. 3. Coronary artery disease. 4. Chronic respiratory failure. 5. Dysphagia. PLAN: Patient remains stable. We are going to discontinue fluconazole and Levaquin. Continue observing her off antibiotics. Await for fluid cultures. So far Gram stain negative. Follow recommendations of consultants. Dictated By: Darcy Matthews NP /[email or web address] /Document#: [id number]
[2017-03-16] VITALS (8 sets, daily range): BP systolic 115–120; BP diastolic 69–72; PULSE 58–103; RESP 19
[2017-03-16] MEDS: LEVOFLOXACIN 500MG/D5W (PMX) 100 ML IVPB SCH (03:56)
[2017-03-16] MEDS: clonAZEPAM 0.5 MG TAB GTB SCH ×3 (05:31→21:44)
[2017-03-16] MEDS: INSULIN ASPART [NOVOLOG] 3 ML PEN SC SCH ×4 (05:35→17:58)
[2017-03-16] MEDS: ZINC SULFATE 220 MG CAP PO SCH (09:00)
[2017-03-16] MEDS: CLOTRIMAZOLE 1% 30 GM CR TOP SCH (09:00)
[2017-03-16] MEDS: PHENOBARBITAL 32.4 MG TAB PO SCH ×2 (09:00→20:53)
[2017-03-16] MEDS: MULTIVITAMINS THERAPEUTIC TAB PO SCH (09:00)
[2017-03-16] MEDS: AMIODARONE 200 MG TAB GTB SCH (09:00)
[2017-03-16] MEDS: TOPIRAMATE 100 MG TAB PO SCH ×2 (09:00→20:54)
[2017-03-16] MEDS: PHENYTOIN (100 MG/4 ML) CUP GTB SCH ×3 (09:00→20:52)
[2017-03-16] MEDS: FLUCONAZOLE 100 MG TAB GTB SCH (09:00)
[2017-03-16] MEDS: BALSAM PERU/CASTOR OIL 60 GM TUBE TOP SCH (09:00)
[2017-03-16] MEDS: DOCUSATE SODIUM 10 MG/ML (10ML CUP) GTB SCH ×2 (09:00→20:52)
[2017-03-16] MEDS: ASCORBIC ACID 500 MG TAB PO SCH (09:00)
[2017-03-16] MEDS: METOPROLOL 25 MG TAB GTB SCH ×2 (09:00→20:52)
[2017-03-16] MEDS: LEVETIRACETAM 1000 MG (PMX) 100 ML IVPB SCH ×2 (09:06→21:00)
--- NOTE | 2017-03-16 10:57 | CONS ---
Date/Time of Note Date/Time of Note DATE: 03/16/17 TIME: 10:55 Assessment/Plan Assessment/Plan Additional Assessment/Plan Assessment recommendations; 1. Patient admitted with abdominal sepsis due to history of recent gallstone pancreatitis with pseudocyst formation status post placement of CT drain in left upper quadrant. 2. Chronic respiratory failure, patient however doing very well on T-piece. 3. Generalized deconditioning with interval improvement. Continue current supportive care. Patient responding well to current treatment regimen. Consultation Date/Type/Reason Admit Date/Time Mar 11, 2017 at 02:03 Type of Consultation: Pulmonary 24 HR Interval Summary Free Text/Dictation Patient's condition is stable. Remains completely awake and alert. Appearing much more perky. Denies any shortness of breath. Complains of mild right upper quadrant abdominal discomfort. Denies any vomiting or nausea. General exam; elderly woman, on T piece via tracheostomy, awake and alert. Currently in no distress. Exam/Review of Systems Vital Signs Vitals Vital Signs Date Time Temp Pulse Resp B/P Pulse Ox O2 Delivery O2 Flow Rate FiO2 03/16/17 08:42 90 03/16/17 08:19 18 98 Aerosol 5.0 28 03/16/17 04:02 98.0 115/69 Intake and Output 03/15/17 03/15/17 03/16/17 15:00 23:00 07:00 Intake Total 100 ml 700 ml 840 ml Output Total 505 ml 1430 ml Balance 100 ml 195 ml -590 ml Exam HEENT exam; supple neck, no JVD. No lymphadenopathy. Midline trachea. No thyromegaly. Pharynx is clear. Patient has fair dentition. Tracheostomy placed with clean insertion site at S2 T-piece. Chest exam; clear to auscultation. S1-S2 audible, no murmurs. Regular rhythm. Abdomen exam; soft, G-tube in place. Left upper quadrant drain in place. Draining purulent material. Sounds are audible. Abdomen is nontender. No organomegaly felt. Extremity exam; no peripheral edema. [employer] exam; no focal deficit. Results Result Diagram: 03/15/17 0701 03/15/17 0701 Results 24 hrs Laboratory Tests Test 03/15/17 11:57 03/15/17 17:59 03/16/17 00:00 03/16/17 05:33 Bedside Glucose 93 92 99 94 Medications Medications Current Medications Lorazepam (Ativan) 1 mg Q4H PRN IV agitation Last administered on 03/11/17 06: 27; Admin Dose 1 MG; Start 03/11/17 at 03:00 Insulin Aspart (Novolog Insulin Pen) NOVOLOG *MODERATE* ALGORI... Q6 SC ; Start 03/11/17 at 06:00 Acetaminophen (Tylenol Liquid) 650 mg Q4H PRN GTB PAIN AND OR ELEVATED TEMP Last administered on 03/14/17 06:00; Admin Dose 650 MG; Start 03/11/17 at 03:00 Al Hydrox/Mg Hydrox/Simethicone (Mag-Al Plus) 30 ml Q4H PRN GTB GASTROINTESTINAL UPSET; Start 03/11/17 at 03:00 Clonazepam (Klonopin) 0.5 mg Q8 GTB Last administered on 03/16/17 05:31; Admin Dose 0.5 MG; Start 03/11/17 at 06:00 Clotrimazole (Lotrimin Cr) 1 applic AM TOP Last administered on 03/15/17 09:16 ; Admin Dose 1 APPLIC; Start 03/11/17 at 09:00 Docusate Sodium (Colace Liquid Cup) 100 mg BID GTB Last administered on 20:30; Admin Dose 100 MG; Start 03/11/17 at 09:00 Epoetin Mina (Epogen (Esrd)) 1,000 units MoWeFr@17 SC Last administered on 03/13 18:01; Admin Dose 1,000 UNITS; Start 03/13/17 at 17:00 Fluconazole (Diflucan) 100 mg DAILY GTB Last administered on 03/15/17 09:12; Admin Dose 100 MG; Start 03/11/17 at 09:00 Miscellaneous Information 1 ea NOTE XX ; Start 03/11/17 at 03:15 Glucose (Glutose) 15 gm Q15M PRN PO DECREASED GLUCOSE; Start 03/11/17 at 03:15 Glucose (Glutose) 22.5 gm Q15M PRN PO DECREASED GLUCOSE; Start 03/11/17 at 03:15 Dextrose (D50w Syringe) 25 ml Q15M PRN IV DECREASED GLUCOSE; Start 03/11/17 at 03:15 Dextrose (D50w Syringe) 50 ml Q15M PRN IV DECREASED GLUCOSE; Start 03/11/17 at 03:15 Glucagon (Glucagen) 1 mg Q15M PRN IM DECREASED GLUCOSE; Start 03/11/17 at 03:15 Glucose (Glutose) 15 gm Q15M PRN BUCCAL DECREASED GLUCOSE; Start 03/11/17 at 03: 15 Acetaminophen/ Hydrocodone Bitart ([place] (5/325)) 1 tab Q6H PRN GTB pain Last administered on 03/13/17 03:03; Admin Dose 1 TAB; Start 03/11/17 at 03:30 Ondansetron HCl (Zofran Inj) 4 mg Q6H PRN IV NAUSEA AND/OR VOMITING; Start 03/11 at 03:30 Phenobarbital (Luminal) 64.8 mg BID PO Last administered on 03/15/17 20:29; Admin Dose 64.8 MG; Start 03/11/17 at 09:00 Phenytoin (Dilantin Susp Cup) 100 mg TID GTB Last administered on 03/15/17 20: 29; Admin Dose 100 MG; Start 03/11/17 at 09:00 Topiramate 200 mg 200 mg BID PO Last administered on 03/15/17 20:30; Admin Dose 200 MG; Start 03/11/17 at 09:00 Levetiracetam 100 ml @ 400 mls/hr Q12 IVPB Last administered on 03/16/17 09: 06; Admin Dose 400 MLS/HR; Start 03/11/17 at 09:00 Levofloxacin/ Dextrose (Levaquin 500mg/ D5W 100 ml (Pmx)) 100 ml @ 100 mls/hr Q24H IVPB Last administered on 03/16/17 03:56; Admin Dose 100 MLS/HR; Start at 03:30 Loperamide HCl (Imodium Cap) 2 mg Q6H PRN GTB diarrhea; Start 03/11/17 at 03:30 Magnesium Hydroxide (Milk Of Mag) 30 ml DAILY PRN PO CONSTIPATION; Start at 03:30 Metoprolol Tartrate (Lopressor) 25 mg BID GTB Last administered on 03/15/17 20 :30; Admin Dose 25 MG; Start 03/11/17 at 09:00 Ondansetron HCl (Zofran Inj) 4 mg Q6H PRN IV NAUSEA AND/OR VOMITING; Start 03/11 at 03:30 Acetaminophen (Tylenol Supp) 650 mg Q6H PRN [place] PAIN LEVEL 1-3 OR FEVER; Start 03/11/17 at 03:30 Multivitamins Therapeutic (Theragran) 1 tab DAILY PO Last administered on 09:15; Admin Dose 1 TAB; Start 03/14/17 at 10:00 Zinc Sulfate (Zinc Sulfate) 220 mg DAILY PO Last administered on 03/15/17 09: 12; Admin Dose 220 MG; Start 03/14/17 at 10:00 Ascorbic Acid (Vitamin C) 500 mg DAILY PO Last administered on 03/15/17 09:15 ; Admin Dose 500 MG; Start 03/14/17 at 10:00 Amiodarone HCl (Cordarone) 100 mg DAILY GTB Last administered on 03/15/17 09: 14; Admin Dose 100 MG; Start 03/15/17 at 09:00 JAYME QUEZADA Mar 16, 2017 10:57
--- NOTE | 2017-03-16 11:37 | PN ---
Date/Time of Note Date/Time of Note DATE: 03/16/17 TIME: 11:32 Assessment/Plan Lines/Catheters IV Catheter Type (from Nrs): Mid Line Matias in Place (from Nrs): Yes Assessment/Plan Chief Complaint/Hosp Course 1. Peripancreatic fluid collection: drain in place with increased output yesterday. s/p drain upsizing with additional drain -continue drain to bulb suction -per gi/hepatology recs -abx per sensitivity 2. Mastoiditis -cont abx 3. Hx. of respiratory failure with trach: comfortable on trach collar -supportive -pulmonary toilet 4. Dysphagia with PEG placement -cont tf with aspiration precautions 5. Thrombocytosis: likely 2/2 #1 -supportive -as above 6.Confusion/agitation: currently pulling at tubes and drains, off restraints -supportive Thank you. Patient seen and examined in collaboration with Dr. Vladimir Kirkpatrick. Problems: Subjective 24 Hr Interval Summary Patient off restraints, calmer currently. 1 drain continuing to drain, 1 drain without drainage. Large drainage yesterday. No fevers, chills, sob, cp, tele changes, vomiting, diarrhea. Exam/Review of Systems Vital Signs Vitals Vital Signs Date Time Temp Pulse Resp B/P Pulse Ox O2 Delivery O2 Flow Rate FiO2 03/16/17 08:42 90 03/16/17 08:19 18 98 Aerosol 5.0 28 03/16/17 04:02 98.0 115/69 Intake and Output 03/15/17 03/15/17 03/16/17 15:00 23:00 07:00 Intake Total 100 ml 700 ml 840 ml Output Total 505 ml 1430 ml Balance 100 ml 195 ml -590 ml Exam Free Text/Dictation Constitutional: alert, tracks No distress, No oriented Psych: nl mood/affect, no complaints, confused; intermittent agitation Head: atraumatic, normocephalic Eyes: nl lids, nl sclera ENMT: mucosa pink and moist Neck: non-tender, trach with trach collar Respiratory: normal air movement, No congested cough Cardiovascular: nl pulses, regular rate and rhythm Gastrointestinal: non-tender, other 2 drains- 1 left flank drain with creamy drainage in bag, other without drainage (peg), soft, No distended Musculoskeletal: muscle weakness, nl extremities to inspection Extremities: normal pulses, No edema Neurological: confused, No nl mental status Skin: No rash or lesions Results Result Diagram: 03/15/17 0701 03/15/17 0701 JOSE LUIS ORO NP Mar 16, 2017 11:37
--- NOTE | 2017-03-16 14:10 | PN ---
Date/Time of Note Date/Time of Note DATE: 03/16/17 TIME: 14:05 Assessment/Plan VTE Prophylaxis VTE Prophylaxis Intervention: SCD's Lines/Catheters IV Catheter Type (from Nrs): Mid Line Urinary Cath still in place: Yes Reason Cath still needed: urinary retention Assessment/Plan Chief Complaint/Hosp Course Assessment/Plan: 61 yo F past medical history paroxysmal A. fib, with recent long hospital stay for gallstone pancreatitis c/b pseudocyst formation requiring drainage transferred from [place] as concern for change in characteristics of abd fluid collection. PLAN -general surgery following, follow-up recommendations, monitor drainage from both left abdomen drains, will contact case management about possible transfer back to [place] if okay with talent development consultant teams. - follow-up ID recommendations -Monitor agitation symptoms. -cont vent weaning, pulm following, trach in place -cont TFs through PEG -cont ortiz for urinary retention -Monitor LFTs -Monitor heart rate on telemetry Problems: Subjective 24 Hr Interval Summary Free Text/Dictation Patient refused labs this morning, occasionally kicking out at staff, but off restraints. Has the [address] now with drainage. Exam/Review of Systems Vital Signs Vitals Vital Signs Date Time Temp Pulse Resp B/P Pulse Ox O2 Delivery O2 Flow Rate FiO2 03/16/17 13:59 96 20 100 Aerosol 5.0 28 03/16/17 04:02 98.0 115/69 Intake and Output 03/15/17 03/15/17 03/16/17 15:00 23:00 07:00 Intake Total 100 ml 700 ml 840 ml Output Total 505 ml 1430 ml Balance 100 ml 195 ml -590 ml Exam Lying in bed, in restraints, family at the bedside Supple PEG in place abd drains with mild cloudy yellow-brownish output lungs clear nbo rashes Results Result Diagram: 03/15/17 0701 03/15/17 0701 Results 24 hrs Laboratory Tests Test 03/15/17 17:59 03/16/17 00:00 03/16/17 05:33 Bedside Glucose 92 99 94 Medications Medications Current Medications Lorazepam (Ativan) 1 mg Q4H PRN IV agitation Last administered on 03/11/17t 06: 27; Admin Dose 1 MG; Start 03/11/17 at 03:00 Insulin Aspart (Novolog Insulin Pen) NOVOLOG *MODERATE* ALGORI... Q6 SC ; Start 03/11/17 at 06:00 Acetaminophen (Tylenol Liquid) 650 mg Q4H PRN GTB PAIN AND OR ELEVATED TEMP Last administered on 03/14/17 06:00; Admin Dose 650 MG; Start 03/11/17 at 03:00 Al Hydrox/Mg Hydrox/Simethicone (Mag-Al Plus) 30 ml Q4H PRN GTB GASTROINTESTINAL UPSET; Start 03/11/17 at 03:00 Clonazepam (Klonopin) 0.5 mg Q8 GTB Last administered on 03/16/17 05:31; Admin Dose 0.5 MG; Start 03/11/17 at 06:00 Clotrimazole (Lotrimin Cr) 1 applic AM TOP Last administered on 03/15/17 09:16 ; Admin Dose 1 APPLIC; Start 03/11/17 at 09:00 Docusate Sodium (Colace Liquid Cup) 100 mg BID GTB Last administered on 20:30; Admin Dose 100 MG; Start 03/11/17 at 09:00 Epoetin Mina (Epogen (Esrd)) 1,000 units MoWeFr@17 SC Last administered on 03/13 18:01; Admin Dose 1,000 UNITS; Start 03/13/17 at 17:00 Fluconazole (Diflucan) 100 mg DAILY GTB Last administered on 03/15/17 09:12; Admin Dose 100 MG; Start 03/11/17 at 09:00 Miscellaneous Information 1 ea NOTE XX ; Start 03/11/17 at 03:15 Glucose (Glutose) 15 gm Q15M PRN PO DECREASED GLUCOSE; Start 03/11/17 at 03:15 Glucose (Glutose) 22.5 gm Q15M PRN PO DECREASED GLUCOSE; Start 03/11/17 at 03:15 Dextrose (D50w Syringe) 25 ml Q15M PRN IV DECREASED GLUCOSE; Start 03/11/17 at 03:15 Dextrose (D50w Syringe) 50 ml Q15M PRN IV DECREASED GLUCOSE; Start 03/11/17 at 03:15 Glucagon (Glucagen) 1 mg Q15M PRN IM DECREASED GLUCOSE; Start 03/11/17 at 03:15 Glucose (Glutose) 15 gm Q15M PRN BUCCAL DECREASED GLUCOSE; Start 03/11/17 at 03: 15 Acetaminophen/ Hydrocodone Bitart ([place] (5/325)) 1 tab Q6H PRN GTB pain Last administered on 03/13/17 03:03; Admin Dose 1 TAB; Start 03/11/17 at 03:30 Ondansetron HCl (Zofran Inj) 4 mg Q6H PRN IV NAUSEA AND/OR VOMITING; Start 03/11 at 03:30 Phenobarbital (Luminal) 64.8 mg BID PO Last administered on 03/15/17 20:29; Admin Dose 64.8 MG; Start 03/11/17 at 09:00 Phenytoin (Dilantin Susp Cup) 100 mg TID GTB Last administered on 03/15/17 20: 29; Admin Dose 100 MG; Start 03/11/17 at 09:00 Topiramate 200 mg 200 mg BID PO Last administered on 03/15/17 20:30; Admin Dose 200 MG; Start 03/11/17 at 09:00 Levetiracetam 100 ml @ 400 mls/hr Q12 IVPB Last administered on 03/16/17 09: 06; Admin Dose 400 MLS/HR; Start 03/11/17 at 09:00 Levofloxacin/ Dextrose (Levaquin 500mg/ D5W 100 ml (Pmx)) 100 ml @ 100 mls/hr Q24H IVPB Last administered on 03/16/17 03:56; Admin Dose 100 MLS/HR; Start at 03:30 Loperamide HCl (Imodium Cap) 2 mg Q6H PRN GTB diarrhea; Start 03/11/17 at 03:30 Magnesium Hydroxide (Milk Of Mag) 30 ml DAILY PRN PO CONSTIPATION; Start at 03:30 Metoprolol Tartrate (Lopressor) 25 mg BID GTB Last administered on 03/15/17 20 :30; Admin Dose 25 MG; Start 03/11/17 at 09:00 Ondansetron HCl (Zofran Inj) 4 mg Q6H PRN IV NAUSEA AND/OR VOMITING; Start 03/11 at 03:30 Acetaminophen (Tylenol Supp) 650 mg Q6H PRN [place] PAIN LEVEL 1-3 OR FEVER; Start 03/11/17 at 03:30 Multivitamins Therapeutic (Theragran) 1 tab DAILY PO Last administered on 09:15; Admin Dose 1 TAB; Start 03/14/17 at 10:00 Zinc Sulfate (Zinc Sulfate) 220 mg DAILY PO Last administered on 03/15/17 09: 12; Admin Dose 220 MG; Start 03/14/17 at 10:00 Ascorbic Acid (Vitamin C) 500 mg DAILY PO Last administered on 03/15/17 09:15 ; Admin Dose 500 MG; Start 03/14/17 at 10:00 Amiodarone HCl (Cordarone) 100 mg DAILY GTB Last administered on 03/15/17 09: 14; Admin Dose 100 MG; Start 03/15/17 at 09:00 CARYN ESCOTO Mar 16, 2017 14:10
--- NOTE | 2017-03-16 14:45 | CONS ---
Date/Time of Note Date/Time of Note DATE: 03/16/17 TIME: 14:44 Assessment/Plan Assessment/Plan Chief Complaint/Hosp Course SUBJECTIVE DATA: No acute events overnight. The patient is alert, looks comfortable, no fevers Antimicrobials: Fluconazole Indwelling: trach, PEG, intra-abdominal drainage catheter. PHYSICAL EXAMINATION: GENERAL: This is a chronically ill-appearing, elderly [place] woman, who is in no distress. HEENT: Head atraumatic, normocephalic. Sclerae anicteric. Buccal mucosa dry. NECK: Supple. CHEST: Rise symmetrical. Breath sounds diminished at bases. HEART: S1, S2. ABDOMEN: Soft, bowel sounds present. EXTREMITIES: Without cyanosis. ASSESSMENT: 1. Acute complicated pancreatitis with pancreatic pseudocyst status post CT-guided pigtail catheter placement ===> fluid cx neg 2. Left mastoiditis. 3. Chronic respiratory failure. 4. Dysphagia. 5. History of urinary tract infection and pneumonia. 6. History of acute renal failure requiring hemodialysis, now off. PLAN: The patient remains stable. Coy Mendoza, continue present care. GI/pulm/ surgical rec-s [facility] staff Problems: Consultation Date/Type/Reason Admit Date/Time Mar 11, 2017 at 02:03 Initial Consult Date 03/11/17 Type of Consultation: ID Exam/Review of Systems Vital Signs Vitals Vital Signs Date Time Temp Pulse Resp B/P Pulse Ox O2 Delivery O2 Flow Rate FiO2 03/16/17 13:59 96 20 100 Aerosol 5.0 28 03/16/17 04:02 98.0 115/69 Intake and Output 03/15/17 03/15/17 03/16/17 15:00 23:00 07:00 Intake Total 100 ml 700 ml 840 ml Output Total 505 ml 1430 ml Balance 100 ml 195 ml -590 ml Results Result Diagram: 03/15/17 0701 03/15/17 0701 Results 24 hrs Laboratory Tests Test 03/15/17 17:59 03/16/17 00:00 03/16/17 05:33 Bedside Glucose 92 99 94 Medications Medications Current Medications Lorazepam (Ativan) 1 mg Q4H PRN IV agitation Last administered on 03/11/17t 06: 27; Admin Dose 1 MG; Start 03/11/17 at 03:00 Insulin Aspart (Novolog Insulin Pen) NOVOLOG *MODERATE* ALGORI... Q6 SC ; Start 03/11/17 at 06:00 Acetaminophen (Tylenol Liquid) 650 mg Q4H PRN GTB PAIN AND OR ELEVATED TEMP Last administered on 03/14/17 06:00; Admin Dose 650 MG; Start 03/11/17 at 03:00 Al Hydrox/Mg Hydrox/Simethicone (Mag-Al Plus) 30 ml Q4H PRN GTB GASTROINTESTINAL UPSET; Start 03/11/17 at 03:00 Clonazepam (Klonopin) 0.5 mg Q8 GTB Last administered on 03/16/17 14:19; Admin Dose 0.5 MG; Start 03/11/17 at 06:00 Clotrimazole (Lotrimin Cr) 1 applic AM TOP Last administered on 03/15/17 09:16 ; Admin Dose 1 APPLIC; Start 03/11/17 at 09:00 Docusate Sodium (Colace Liquid Cup) 100 mg BID GTB Last administered on 20:30; Admin Dose 100 MG; Start 03/11/17 at 09:00 Epoetin Mina (Epogen (Esrd)) 1,000 units MoWeFr@17 SC Last administered on 03/13 18:01; Admin Dose 1,000 UNITS; Start 03/13/17 at 17:00 Fluconazole (Diflucan) 100 mg DAILY GTB Last administered on 03/15/17 09:12; Admin Dose 100 MG; Start 03/11/17 at 09:00 Miscellaneous Information 1 ea NOTE XX ; Start 03/11/17 at 03:15 Glucose (Glutose) 15 gm Q15M PRN PO DECREASED GLUCOSE; Start 03/11/17 at 03:15 Glucose (Glutose) 22.5 gm Q15M PRN PO DECREASED GLUCOSE; Start 03/11/17 at 03:15 Dextrose (D50w Syringe) 25 ml Q15M PRN IV DECREASED GLUCOSE; Start 03/11/17 at 03:15 Dextrose (D50w Syringe) 50 ml Q15M PRN IV DECREASED GLUCOSE; Start 03/11/17 at 03:15 Glucagon (Glucagen) 1 mg Q15M PRN IM DECREASED GLUCOSE; Start 03/11/17 at 03:15 Glucose (Glutose) 15 gm Q15M PRN BUCCAL DECREASED GLUCOSE; Start 03/11/17 at 03: 15 Acetaminophen/ Hydrocodone Bitart ([place] (5/325)) 1 tab Q6H PRN GTB pain Last administered on 03/13/17 03:03; Admin Dose 1 TAB; Start 03/11/17 at 03:30 Ondansetron HCl (Zofran Inj) 4 mg Q6H PRN IV NAUSEA AND/OR VOMITING; Start 03/11 at 03:30 Phenobarbital (Luminal) 64.8 mg BID PO Last administered on 03/15/17 20:29; Admin Dose 64.8 MG; Start 03/11/17 at 09:00 Phenytoin (Dilantin Susp Cup) 100 mg TID GTB Last administered on 03/15/17 20: 29; Admin Dose 100 MG; Start 03/11/17 at 09:00 Topiramate 200 mg 200 mg BID PO Last administered on 03/15/17 20:30; Admin Dose 200 MG; Start 03/11/17 at 09:00 Levetiracetam 100 ml @ 400 mls/hr Q12 IVPB Last administered on 03/16/17 09: 06; Admin Dose 400 MLS/HR; Start 03/11/17 at 09:00 Levofloxacin/ Dextrose (Levaquin 500mg/ D5W 100 ml (Pmx)) 100 ml @ 100 mls/hr Q24H IVPB Last administered on 03/16/17 03:56; Admin Dose 100 MLS/HR; Start at 03:30 Loperamide HCl (Imodium Cap) 2 mg Q6H PRN GTB diarrhea; Start 03/11/17 at 03:30 Magnesium Hydroxide (Milk Of Mag) 30 ml DAILY PRN PO CONSTIPATION; Start at 03:30 Metoprolol Tartrate (Lopressor) 25 mg BID GTB Last administered on 03/15/17 20 :30; Admin Dose 25 MG; Start 03/11/17 at 09:00 Ondansetron HCl (Zofran Inj) 4 mg Q6H PRN IV NAUSEA AND/OR VOMITING; Start 03/11 at 03:30 Acetaminophen (Tylenol Supp) 650 mg Q6H PRN [place] PAIN LEVEL 1-3 OR FEVER; Start 03/11/17 at 03:30 Multivitamins Therapeutic (Theragran) 1 tab DAILY PO Last administered on 09:15; Admin Dose 1 TAB; Start 03/14/17 at 10:00 Zinc Sulfate (Zinc Sulfate) 220 mg DAILY PO Last administered on 03/15/17 09: 12; Admin Dose 220 MG; Start 03/14/17 at 10:00 Ascorbic Acid (Vitamin C) 500 mg DAILY PO Last administered on 03/15/17 09:15 ; Admin Dose 500 MG; Start 03/14/17 at 10:00 Amiodarone HCl (Cordarone) 100 mg DAILY GTB Last administered on 03/15/17 09: 14; Admin Dose 100 MG; Start 03/15/17 at 09:00 MIKE TURCIOS NP Mar 16, 2017 14:45
[2017-03-16 15:06] LABS: BASOPHIL # 0.1 10^3/ul (0.0-0.1); BASOPHILS % 0.6 % (0.0-2.0); EOSINOPHILS # 0.1 10^3/ul (0.0-0.5); EOSINOPHILS % 0.7 % (0.0-7.0); HEMATOCRIT 39.6 % (37.0-47.0); HEMOGLOBIN 12.3 g/dl (12.0-16.0); LYMPHOCYTES # 2.3 10^3/ul (0.8-2.9); LYMPHOCYTES % 22.7 % (15.0-51.0); MEAN CORPUSCULAR HEMOGLOBIN 29.9 pg (29.0-33.0); MEAN CORPUSCULAR HGB CONC 31.1 g/dl (32.0-37.0); MEAN CORPUSCULAR VOLUME 96.1 fl (82.0-101.0); MEAN PLATELET VOLUME 8.9 fl (7.4-10.4); MONOCYTE # 0.7 10^3/ul (0.3-0.9); NEUTROPHIL # 6.9 10^3/ul (1.6-7.5); NEUTROPHILS % 68.5 % (39.0-77.0); PLATELET COUNT 425 10^3/UL (140-415); RED BLOOD COUNT 4.12 10^6/ul (4.20-5.40); RED CELL DISTRIBUTION WIDTH 15.6 % (11.5-14.5); WHITE BLOOD COUNT 10.1 10^3/ul (4.8-10.8)
--- NOTE | 2017-03-16 15:09 | PN ---
Date/Time of Note Date/Time of Note DATE: 03/16/17 TIME: 15:05 Assessment/Plan Lines/Catheters IV Catheter Type (from Nrsg): Mid Line Matias in Place (from Nrsg): Yes Assessment/Plan Assessment/Plan [facility] Progress Note Date of Service: 03/16/2017 Place of service: [facility] fifth floor telemetry Today's Assessment & Plan: Overall stable and appears improved. Abd remains benign. No indication for acute surgical intervention. As long as she is improving, I recommend keeping the drains as is with plans of repeat CT in the next 1-2 weeks for re- evaluation. Based on the randomized trial testing the Step-Up approach, there would be about a 70% chance that current strategy will avoid an operation which carries with it not insignificant chance of morbidity and mortality. Furthermore , we have not had adequate time with the current set up to see effectiveness. Will need at least 1-2 more weeks if patient is not worsening. Happy to also manage as an outpatient. With above assessment, I've recommended the followin. Continue current cares with flushing of drains at least 10 cc 3 times daily towards the patient 2. Aggressive intervention to get patient off the vent and put Shiley valve so patient can speak and hopefully eat 3. Swallowing eval to see if patient can eat and get her off of tube feeds 4. We're hopeful to expedite patient's recovery with above with hope of short term stay at LTAC and d/c home afterwards Thank you very much for having me involved in the care of this very pleasant patient and wonderful family. If you have any questions, please feel free to contact me at [phone]. Nature of presenting problem: High severity Please note that, given the extensive number of diagnoses or management options , the extensive amount and/or complexity of data needed to be reviewed, and high risk of complications and/or morbidity or mortality, this qualifies as high complexity type of decision-making. Disclaimer: Inadvertent spelling and grammatical errors are likely due to EHR/ dictation software use and do not reflect on the quality of delivered patient care. Also, please note that the electronic time recorded on this node does not necessarily reflect the actual time of the visit. Updated clinical summary: Very pleasant but unfortunate 61-year-old lady with multiple comorbidities and recent severe pancreatitis complicated by pseudocyst, as well as need for tracheostomy placement and tube feeding, hospitalized for the last 2-3 months, presenting with ongoing issues with pancreatic pseudocyst. Comorbidities: 1. BMI 25.9 2. Severe pancreatitis complicated by pseudocyst formation requiring drainage, as well as need for tracheostomy and PEG. Prolonged hospitalization followed by prolonged subacute care stay; prolonged hospital stay at [facility], 01/04/2017 01/27/2017 requiring multiple interventions such as ERCP as well as temporary hemodialysis for acute kidney injury, respiratory failure requiring tracheostomy and PEG placement; transferred to [place] for vent weaning since discharge on 01/27/[address]-guided left flank pseudocyst drainage by interventional radiology 02/07/2017 [facility] 4. Status post ERCP with large filling defects seen in common bile duct consistent with a stone; status post stent placement in common bile duct 2016 [facility] 5. Status post CT-guided drainage of right flank fluid collection (removal of 200 cc of purulent fluid) 02/28/2017 [facility] Subjective: No major reported events or complaints; no major or obvious reported abd pain and seems to be under control with medications; no n/v/d; no sob or cp; ? flatus ; + reported BM; minimal activity Objective: Vitals: See below I's & O's: See below Exam: GENERAL: On exam, the patient was lying in bed and appeared to be comfortable and in no acute distress. ABDOMEN: Soft, nontender and nondistended. Drain outputs appeared to be purulent. There are no peritoneal signs or guarding. SKIN: Skin appears to be pink and feels warm to touch. NEUROLOGIC: Patient is awake, alert, and appears to be following commands appropriately. Labs: See below Exam/Review of Systems Vital Signs Vitals Vital Signs Date Time Temp Pulse Resp B/P Pulse Ox O2 Delivery O2 Flow Rate FiO2 03/16/17 13:59 96 20 100 Aerosol 5.0 28 03/16/17 04:02 98.0 115/69 Intake and Output 03/15/17 03/15/17 03/16/17 15:00 23:00 07:00 Intake Total 100 ml 700 ml 840 ml Output Total 505 ml 1430 ml Balance 100 ml 195 ml -590 ml Results Result Diagram: 03/15/17 0701 03/15/17 0701 KIM BELLAMY M.D. Mar 16, 2017 15:09
[2017-03-16 15:37] LABS: CALCIUM 9.3 mg/dl (8.4-10.2); CREATININE 0.52 mg/dl (0.44-1.00); POTASSIUM 4.3 mmol/L (3.5-5.1)
--- NOTE | 2017-03-16 15:46 | CONS ---
Date/Time of Note Date/Time of Note DATE: 03/16/17 TIME: 15:45 Assessment/Plan Assessment/Plan Additional Assessment/Plan History of pancreatitis with abdominal fluid collection Paroxysmal atrial fibrillation, currently sinus rhythm Respiratory failure Preserved ejection fraction Hypertension -Blood pressure trend remains stable. Continue amiodarone and beta-linda as heart rate permits. Consultation Date/Type/Reason Admit Date/Time Mar 11, 2017 at 02:03 Initial Consult Date 03/11/17 Type of Consultation: cv 24 HR Interval Summary Free Text/Dictation Patient seen and examined Exam/Review of Systems Vital Signs Vitals Vital Signs Date Time Temp Pulse Resp B/P Pulse Ox O2 Delivery O2 Flow Rate FiO2 03/16/17 13:59 96 20 100 Aerosol 5.0 28 03/16/17 04:02 98.0 115/69 Intake and Output 03/15/17 03/15/17 03/16/17 15:00 23:00 07:00 Intake Total 100 ml 700 ml 840 ml Output Total 505 ml 1430 ml Balance 100 ml 195 ml -590 ml Exam No apparent distress Constitutional: alert Head: normocephalic Neck: other (Tracheostomy) Respiratory: other (Coarse breath sounds bilaterally, no wheezing) Cardiovascular: other (S1-S2 heard), regular rate and rhythm Gastrointestinal: bowel sounds, non-tender, soft Extremities: edema (Trace) Results Result Diagram: 03/16/17 1425 03/16/17 1425 Results 24 hrs Laboratory Tests Test 03/15/17 17:59 03/16/17 00:00 03/16/17 05:33 03/16/17 14:25 Bedside Glucose 92 99 94 White Blood Count 10.1 Red Blood Count 4.12 L Hemoglobin 12.3 Hematocrit 39.6 Mean Corpuscular Volume 96.1 Mean Corpuscular Hemoglobin 29.9 Mean Corpuscular Hemoglobin Concent 31.1 L Red Cell Distribution Width 15.6 H Platelet Count 425 H Mean Platelet Volume 8.9 Neutrophils % 68.5 Lymphocytes % 22.7 Monocytes % 7.0 Eosinophils % 0.7 Basophils % 0.6 Nucleated Red Blood Cells % 0.0 Neutrophils # 6.9 Lymphocytes # 2.3 Monocytes # 0.7 Eosinophils # 0.1 Basophils # 0.1 Nucleated Red Blood Cells # 0.0 Sodium Level 137 Potassium Level 4.3 Chloride Level 107 Carbon Dioxide Level 23 Anion Gap 11 Blood Urea Nitrogen 16 Creatinine 0.52 Glucose Level 96 Calcium Level 9.3 Medications Medications Current Medications Lorazepam (Ativan) 1 mg Q4H PRN IV agitation Last administered on 03/11/17 06: 27; Admin Dose 1 MG; Start 03/11/17 at 03:00 Insulin Aspart (Novolog Insulin Pen) NOVOLOG *MODERATE* ALGORI... Q6 SC ; Start 03/11/17 at 06:00 Acetaminophen (Tylenol Liquid) 650 mg Q4H PRN GTB PAIN AND OR ELEVATED TEMP Last administered on 03/14/17 06:00; Admin Dose 650 MG; Start 03/11/17 at 03:00 Al Hydrox/Mg Hydrox/Simethicone (Mag-Al Plus) 30 ml Q4H PRN GTB GASTROINTESTINAL UPSET; Start 03/11/17 at 03:00 Clonazepam (Klonopin) 0.5 mg Q8 GTB Last administered on 03/16/17 14:19; Admin Dose 0.5 MG; Start 03/11/17 at 06:00 Clotrimazole (Lotrimin Cr) 1 applic AM TOP Last administered on 03/15/17 09:16 ; Admin Dose 1 APPLIC; Start 03/11/17 at 09:00 Docusate Sodium (Colace Liquid Cup) 100 mg BID GTB Last administered on 20:30; Admin Dose 100 MG; Start 03/11/17 at 09:00 Epoetin Mina (Epogen (Esrd)) 1,000 units MoWeFr@17 SC Last administered on 03/13 18:01; Admin Dose 1,000 UNITS; Start 03/13/17 at 17:00 Miscellaneous Information 1 ea NOTE XX ; Start 03/11/17 at 03:15 Glucose (Glutose) 15 gm Q15M PRN PO DECREASED GLUCOSE; Start 03/11/17 at 03:15 Glucose (Glutose) 22.5 gm Q15M PRN PO DECREASED GLUCOSE; Start 03/11/17 at 03:15 Dextrose (D50w Syringe) 25 ml Q15M PRN IV DECREASED GLUCOSE; Start 03/11/17 at 03:15 Dextrose (D50w Syringe) 50 ml Q15M PRN IV DECREASED GLUCOSE; Start 03/11/17 at 03:15 Glucagon (Glucagen) 1 mg Q15M PRN IM DECREASED GLUCOSE; Start 03/11/17 at 03:15 Glucose (Glutose) 15 gm Q15M PRN BUCCAL DECREASED GLUCOSE; Start 03/11/17 at 03: 15 Acetaminophen/ Hydrocodone Bitart ([place] (5/325)) 1 tab Q6H PRN GTB pain Last administered on 03/13/17 03:03; Admin Dose 1 TAB; Start 03/11/17 at 03:30 Ondansetron HCl (Zofran Inj) 4 mg Q6H PRN IV NAUSEA AND/OR VOMITING; Start 03/11 at 03:30 Phenobarbital (Luminal) 64.8 mg BID PO Last administered on 03/15/17 20:29; Admin Dose 64.8 MG; Start 03/11/17 at 09:00 Phenytoin (Dilantin Susp Cup) 100 mg TID GTB Last administered on 03/15/17 20: 29; Admin Dose 100 MG; Start 03/11/17 at 09:00 Topiramate 200 mg 200 mg BID PO Last administered on 03/15/17 20:30; Admin Dose 200 MG; Start 03/11/17 at 09:00 Levetiracetam 100 ml @ 400 mls/hr Q12 IVPB Last administered on 03/16/17 09: 06; Admin Dose 400 MLS/HR; Start 03/11/17 at 09:00 Levofloxacin/ Dextrose (Levaquin 500mg/ D5W 100 ml (Pmx)) 100 ml @ 100 mls/hr Q24H IVPB Last administered on 03/16/17 03:56; Admin Dose 100 MLS/HR; Start at 03:30 Loperamide HCl (Imodium Cap) 2 mg Q6H PRN GTB diarrhea; Start 03/11/17 at 03:30 Magnesium Hydroxide (Milk Of Mag) 30 ml DAILY PRN PO CONSTIPATION; Start at 03:30 Metoprolol Tartrate (Lopressor) 25 mg BID GTB Last administered on 03/15/17 20 :30; Admin Dose 25 MG; Start 03/11/17 at 09:00 Ondansetron HCl (Zofran Inj) 4 mg Q6H PRN IV NAUSEA AND/OR VOMITING; Start 9/9 /17 at 03:30 Acetaminophen (Tylenol Supp) 650 mg Q6H PRN [place] PAIN LEVEL 1-3 OR FEVER; Start 03/11/17 at 03:30 Multivitamins Therapeutic (Theragran) 1 tab DAILY PO Last administered on 09:15; Admin Dose 1 TAB; Start 03/14/17 at 10:00 Zinc Sulfate (Zinc Sulfate) 220 mg DAILY PO Last administered on 03/15/17 09: 12; Admin Dose 220 MG; Start 03/14/17 at 10:00 Ascorbic Acid (Vitamin C) 500 mg DAILY PO Last administered on 03/15/17 09:15 ; Admin Dose 500 MG; Start 03/14/17 at 10:00 Amiodarone HCl (Cordarone) 100 mg DAILY GTB Last administered on 03/15/17 09: 14; Admin Dose 100 MG; Start 03/15/17 at 09:00 Vlad Leyva DO Mar 16, 2017 15:46
[2017-03-17] VITALS (10 sets, daily range): BP systolic 114–123; BP diastolic 68–73; PULSE 92–103; RESP 16–21
[2017-03-17] MEDS: LEVOFLOXACIN 500MG/D5W (PMX) 100 ML IVPB SCH (04:15)
[2017-03-17] MEDS: clonAZEPAM 0.5 MG TAB GTB SCH ×4 (06:00→22:00)
[2017-03-17] MEDS: INSULIN ASPART [NOVOLOG] 3 ML PEN SC SCH ×4 (06:00→18:00)
[2017-03-17] MEDS: LEVETIRACETAM 1000 MG (PMX) 100 ML IVPB SCH ×2 (08:47→21:00)
[2017-03-17] MEDS: HYDROCODONE/APAP (5/325) TAB GTB PRN (08:57)
[2017-03-17] MEDS: DOCUSATE SODIUM 10 MG/ML (10ML CUP) GTB SCH ×2 (08:57→21:00)
[2017-03-17] MEDS: METOPROLOL 25 MG TAB GTB SCH ×3 (08:58→21:00)
[2017-03-17] MEDS: AMIODARONE 200 MG TAB GTB SCH ×2 (08:58→13:19)
[2017-03-17] MEDS: PHENYTOIN (100 MG/4 ML) CUP GTB SCH ×3 (08:58→21:00)
[2017-03-17] MEDS: MULTIVITAMINS THERAPEUTIC TAB PO SCH (08:59)
[2017-03-17] MEDS: TOPIRAMATE 100 MG TAB PO SCH ×3 (08:59→21:00)
[2017-03-17] MEDS: PHENOBARBITAL 32.4 MG TAB PO SCH ×3 (08:59→21:00)
[2017-03-17] MEDS: CLOTRIMAZOLE 1% 30 GM CR TOP SCH (08:59)
[2017-03-17] MEDS: BALSAM PERU/CASTOR OIL 60 GM TUBE TOP SCH (08:59)
[2017-03-17] MEDS: ASCORBIC ACID 500 MG TAB PO SCH ×2 (08:59→13:21)
[2017-03-17] MEDS: ZINC SULFATE 220 MG CAP PO SCH (08:59)
[2017-03-17 09:53] LABS: BASOPHIL # 0.1 10^3/ul (0.0-0.1); BASOPHILS % 0.6 % (0.0-2.0); EOSINOPHILS # 0.1 10^3/ul (0.0-0.5); EOSINOPHILS % 0.6 % (0.0-7.0); LYMPHOCYTES # 2.3 10^3/ul (0.8-2.9); LYMPHOCYTES % 18.4 % (15.0-51.0); MEAN CORPUSCULAR HEMOGLOBIN 29.8 pg (29.0-33.0); MEAN CORPUSCULAR HGB CONC 31.6 g/dl (32.0-37.0); MEAN CORPUSCULAR VOLUME 94.3 fl (82.0-101.0); MEAN PLATELET VOLUME 8.8 fl (7.4-10.4); MONOCYTE # 0.9 10^3/ul (0.3-0.9); MONOCYTES % 6.9 % (0.0-11.0); NEUTROPHIL # 9.1 10^3/ul (1.6-7.5); NEUTROPHILS % 73.2 % (39.0-77.0); PLATELET COUNT 418 10^3/UL (140-415); RED BLOOD COUNT 4.03 10^6/ul (4.20-5.40); RED CELL DISTRIBUTION WIDTH 15.6 % (11.5-14.5); WHITE BLOOD COUNT 12.4 10^3/ul (4.8-10.8)
[2017-03-17 10:09] LABS: CALCIUM 9.2 mg/dl (8.4-10.2); CREATININE 0.51 mg/dl (0.44-1.00); POTASSIUM 4.2 mmol/L (3.5-5.1)
--- NOTE | 2017-03-17 11:19 | PN ---
Date/Time of Note Date/Time of Note DATE: 03/17/17 TIME: 11:08 Assessment/Plan Lines/Catheters IV Catheter Type (from Nrsg): Peripheral IV Matias in Place (from Nrs): Yes Assessment/Plan Assessment/Plan [facility] Progress Note Date of Service: 03/17/2017 Place of service: [facility] fifth floor telemetry Today's Assessment & Plan: Overall stable. Abd remains benign. No indication for acute surgical intervention. As long as she is improving, I recommend keeping the drains as is with plans of repeat CT in the next 1-2 weeks for re-evaluation. Based on the PANTER trial, published in 2010, as well as my own clinical experience, the current strategy has a significant chance to avoid an operation which carries with it not insignificant risk of morbidity and mortality. Furthermore, we have not had adequate time with the current set up to see effectiveness. Will need at least 1-2 more weeks if patient is not worsening prior to making the decision to operate or not. Happy to also manage as an outpatient. With above assessment, I've recommended the followin. Continue current cares with flushing of drains at least 10 cc 3 times daily towards the patient 2. Aggressive intervention to get patient off the vent and put Shiley valve so patient can speak and hopefully eat 3. Swallowing eval to see if patient can eat and get her off of tube feeds 4. We're hopeful to expedite patient's recovery with above with hope of short term stay at LTAC and d/c home afterwards Thank you very much for having me involved in the care of this very pleasant patient and wonderful family. If you have any questions, please feel free to contact me at [phone]. Nature of presenting problem: High severity Please note that, given the extensive number of diagnoses or management options , the extensive amount and/or complexity of data needed to be reviewed, and high risk of complications and/or morbidity or mortality, this qualifies as high complexity type of decision-making. Disclaimer: Inadvertent spelling and grammatical errors are likely due to EHR/ dictation software use and do not reflect on the quality of delivered patient care. Also, please note that the electronic time recorded on this node does not necessarily reflect the actual time of the visit. Updated clinical summary: Very pleasant but unfortunate 61-year-old lady with multiple comorbidities and recent severe pancreatitis complicated by pseudocyst, as well as need for tracheostomy placement and tube feeding, hospitalized for the last 2-3 months, presenting with ongoing issues with pancreatic pseudocyst. Comorbidities: 1. BMI 25.9 2. Severe pancreatitis complicated by pseudocyst formation requiring drainage, as well as need for tracheostomy and PEG. Prolonged hospitalization followed by prolonged subacute care stay; prolonged hospital stay at [facility], 01/04/2017 01/27/2017 requiring multiple interventions such as ERCP as well as temporary hemodialysis for acute kidney injury, respiratory failure requiring tracheostomy and PEG placement; transferred to [place] for vent weaning since discharge on 01/27/[address]-guided left flank pseudocyst drainage by interventional radiology 02/07/2017 [facility] 4. Status post ERCP with large filling defects seen in common bile duct consistent with a stone; status post stent placement in common bile duct 2016 [facility] 5. Status post CT-guided drainage of right flank fluid collection (removal of 200 cc of purulent fluid) 02/28/2017 [facility] Subjective: No major reported events or complaints; no major or obvious reported abd pain and seems to be under control with medications; no n/v/d; no sob or cp; ? flatus ; + reported BM; minimal activity Objective: Vitals: See below I's & O's: See below Exam: GENERAL: On exam, the patient was lying in bed and appeared to be comfortable and in no acute distress. ABDOMEN: Soft, nontender and nondistended. Drain outputs appeared to be purulent. There are no peritoneal signs or guarding. SKIN: Skin appears to be pink and feels warm to touch. NEUROLOGIC: Patient is awake, alert, and appears to be following commands appropriately. Labs: See below Exam/Review of Systems Vital Signs Vitals Vital Signs Date Time Temp Pulse Resp B/P Pulse Ox O2 Delivery O2 Flow Rate FiO2 03/17/17 09:30 8.0 03/17/17 08:18 93 03/17/17 07:48 28 03/17/17 07:48 18 99 Aerosol 03/17/17 07:45 97.9 116/69 Intake and Output 03/16/17 03/16/17 03/17/17 15:00 23:00 07:00 Intake Total 750 ml Output Total 0 ml 700 ml Balance 0 ml 50 ml Results Result Diagram: 03/17/17 0924 03/17/17 0924 KIM BELLAMY M.D. Mar 17, 2017 11:19
--- NOTE | 2017-03-17 11:39 | CONS ---
Date/Time of Note Date/Time of Note DATE: 03/17/17 TIME: 11:36 Assessment/Plan Assessment/Plan Additional Assessment/Plan Assessment and recommendations; 1. Patient admitted for biliary sepsis with a history of gallstone pancreatitis with pseudocyst formation status post placement of CT-guided abdominal drain which is draining purulent material. 2. Chronic respiratory failure, however patient doing very well on T-piece. 3. History of seizure disorder. 4. History of hypertension. 5. Overall significant improvement in generalized weakness. Continue current supportive care. Consultation Date/Type/Reason Admit Date/Time Mar 11, 2017 at 02:03 Type of Consultation: Pulmonary 24 HR Interval Summary Free Text/Dictation Patient condition remains stable. Remains awake and alert. Has remained hemodynamically stable. General exam; elderly woman, awake and alert. Currently in no distress. Exam/Review of Systems Vital Signs Vitals Vital Signs Date Time Temp Pulse Resp B/P Pulse Ox O2 Delivery O2 Flow Rate FiO2 03/17/17 09:30 8.0 03/17/17 08:18 93 03/17/17 07:48 28 03/17/17 07:48 18 99 Aerosol 03/17/17 07:45 97.9 116/69 Intake and Output 03/16/17 03/16/17 03/17/17 15:00 23:00 07:00 Intake Total 750 ml Output Total 0 ml 700 ml Balance 0 ml 50 ml Exam HEENT exam; supple neck, no JVD. No lymphadenopathy. Midline trachea. No thyromegaly. Tracheostomy in place. Attached to T-piece. Patient has fair dentition. Chest exam; clear to auscultation. S1-S2 audible, no murmurs. Regular rhythm. Abdomen exam; soft, no organomegaly. Nontender. G-tube in place. Left upper quadrant drain in place. Extremity exam; no peripheral edema. RADIO HOST exam; no focal deficit. Results Result Diagram: 03/17/1792303/17/17923 Results 24 hrs Laboratory Tests Test 03/16/17 14:25 03/16/17 17:21 03/17/17 07:52 03/17/17 09:24 White Blood Count 10.1 12.4 #H Red Blood Count 4.12 L 4.03 L Hemoglobin 12.3 12.0 Hematocrit 39.6 38.0 Mean Corpuscular Volume 96.1 94.3 Mean Corpuscular Hemoglobin 29.9 29.8 Mean Corpuscular Hemoglobin Concent 31.1 L 31.6 L Red Cell Distribution Width 15.6 H 15.6 H Platelet Count 425 H 418 H Mean Platelet Volume 8.9 8.8 Neutrophils % 68.5 73.2 Lymphocytes % 22.7 18.4 Monocytes % 7.0 6.9 Eosinophils % 0.7 0.6 Basophils % 0.6 0.6 Nucleated Red Blood Cells % 0.0 0.0 Neutrophils # 6.9 9.1 H Lymphocytes # 2.3 2.3 Monocytes # 0.7 0.9 Eosinophils # 0.1 0.1 Basophils # 0.1 0.1 Nucleated Red Blood Cells # 0.0 0.0 Sodium Level 137 138 Potassium Level 4.3 4.2 Chloride Level 107 107 Carbon Dioxide Level 23 23 Anion Gap 11 12 Blood Urea Nitrogen 16 15 Creatinine 0.52 0.51 Glucose Level 96 102 Calcium Level 9.3 9.2 Bedside Glucose 98 105 Medications Medications Current Medications Lorazepam (Ativan) 1 mg Q4H PRN IV agitation Last administered on 03/11/17 06: 27; Admin Dose 1 MG; Start 03/11/17 at 03:00 Insulin Aspart (Novolog Insulin Pen) NOVOLOG *MODERATE* ALGORI... Q6 SC ; Start 03/11/17 at 06:00 Acetaminophen (Tylenol Liquid) 650 mg Q4H PRN GTB PAIN AND OR ELEVATED TEMP Last administered on 03/14/17 06:00; Admin Dose 650 MG; Start 03/11/17 at 03:00 Al Hydrox/Mg Hydrox/Simethicone (Mag-Al Plus) 30 ml Q4H PRN GTB GASTROINTESTINAL UPSET; Start 03/11/17 at 03:00 Clonazepam (Klonopin) 0.5 mg Q8 GTB Last administered on 03/16/17 14:19; Admin Dose 0.5 MG; Start 03/11/17 at 06:00 Clotrimazole (Lotrimin Cr) 1 applic AM TOP Last administered on 03/15/17 09:16 ; Admin Dose 1 APPLIC; Start 03/11/17 at 09:00 Docusate Sodium (Colace Liquid Cup) 100 mg BID GTB Last administered on 20:30; Admin Dose 100 MG; Start 03/11/17 at 09:00 Epoetin Mina (Epogen (Esrd)) 1,000 units MoWeFr@17 SC Last administered on 03/13 18:01; Admin Dose 1,000 UNITS; Start 03/13/17 at 17:00 Miscellaneous Information 1 ea NOTE XX ; Start 03/11/17 at 03:15 Glucose (Glutose) 15 gm Q15M PRN PO DECREASED GLUCOSE; Start 03/11/17 at 03:15 Glucose (Glutose) 22.5 gm Q15M PRN PO DECREASED GLUCOSE; Start 03/11/17 at 03:15 Dextrose (D50w Syringe) 25 ml Q15M PRN IV DECREASED GLUCOSE; Start 03/11/17 at 03:15 Dextrose (D50w Syringe) 50 ml Q15M PRN IV DECREASED GLUCOSE; Start 03/11/17 at 03:15 Glucagon (Glucagen) 1 mg Q15M PRN IM DECREASED GLUCOSE; Start 03/11/17 at 03:15 Glucose (Glutose) 15 gm Q15M PRN BUCCAL DECREASED GLUCOSE; Start 03/11/17 at 03: 15 Acetaminophen/ Hydrocodone Bitart ([place] (5/325)) 1 tab Q6H PRN GTB pain Last administered on 03/13/17 03:03; Admin Dose 1 TAB; Start 03/11/17 at 03:30 Ondansetron HCl (Zofran Inj) 4 mg Q6H PRN IV NAUSEA AND/OR VOMITING; Start 03/11 at 03:30 Phenobarbital (Luminal) 64.8 mg BID PO Last administered on 03/15/17 20:29; Admin Dose 64.8 MG; Start 03/11/17 at 09:00 Phenytoin (Dilantin Susp Cup) 100 mg TID GTB Last administered on 03/15/17 20: 29; Admin Dose 100 MG; Start 03/11/17 at 09:00 Topiramate 200 mg 200 mg BID PO Last administered on 03/15/17 20:30; Admin Dose 200 MG; Start 03/11/17 at 09:00 Levetiracetam 100 ml @ 400 mls/hr Q12 IVPB Last administered on 03/17/17 08: 47; Admin Dose 400 MLS/HR; Start 03/11/17 at 09:00 Levofloxacin/ Dextrose (Levaquin 500mg/ D5W 100 ml (Pmx)) 100 ml @ 100 mls/hr Q24H IVPB Last administered on 03/17/17 04:15; Admin Dose 100 MLS/HR; Start at 03:30 Loperamide HCl (Imodium Cap) 2 mg Q6H PRN GTB diarrhea; Start 03/11/17 at 03:30 Magnesium Hydroxide (Milk Of Mag) 30 ml DAILY PRN PO CONSTIPATION; Start at 03:30 Metoprolol Tartrate (Lopressor) 25 mg BID GTB Last administered on 03/15/17 20 :30; Admin Dose 25 MG; Start 03/11/17 at 09:00 Ondansetron HCl (Zofran Inj) 4 mg Q6H PRN IV NAUSEA AND/OR VOMITING; Start 03/11 at 03:30 Acetaminophen (Tylenol Supp) 650 mg Q6H PRN [place] PAIN LEVEL 1-3 OR FEVER; Start 03/11/17 at 03:30 Multivitamins Therapeutic (Theragran) 1 tab DAILY PO Last administered on 09:15; Admin Dose 1 TAB; Start 03/14/17 at 10:00 Zinc Sulfate (Zinc Sulfate) 220 mg DAILY PO Last administered on 03/15/17 09: 12; Admin Dose 220 MG; Start 03/14/17 at 10:00 Ascorbic Acid (Vitamin C) 500 mg DAILY PO Last administered on 03/15/17 09:15 ; Admin Dose 500 MG; Start 03/14/17 at 10:00 Amiodarone HCl (Cordarone) 100 mg DAILY GTB Last administered on 03/15/17 09: 14; Admin Dose 100 MG; Start 03/15/17 at 09:00 JAYME QUEZADA Mar 17, 2017 11:39
--- NOTE | 2017-03-17 12:12 | CONS ---
Date/Time of Note Date/Time of Note DATE: 03/17/17 TIME: 12:11 Assessment/Plan Assessment/Plan Additional Assessment/Plan History of pancreatitis with abdominal fluid collection Paroxysmal atrial fibrillation, currently sinus rhythm Respiratory failure Preserved ejection fraction Hypertension -Blood pressure trend remains stable. Continue amiodarone and beta-linda as heart rate permits. Consultation Date/Type/Reason Admit Date/Time Mar 11, 2017 at 02:03 Initial Consult Date 03/11/17 Type of Consultation: cv 24 HR Interval Summary Free Text/Dictation Patient seen and examined Exam/Review of Systems Vital Signs Vitals Vital Signs Date Time Temp Pulse Resp B/P Pulse Ox O2 Delivery O2 Flow Rate FiO2 03/17/17 09:30 8.0 03/17/17 08:18 93 03/17/17 07:48 28 03/17/17 07:48 18 99 Aerosol 03/17/17 07:45 97.9 116/69 Intake and Output 03/16/17 03/16/17 03/17/17 15:00 23:00 07:00 Intake Total 750 ml Output Total 0 ml 700 ml Balance 0 ml 50 ml Exam No apparent distress, following commands Constitutional: alert Head: normocephalic Respiratory: other (Coarse breath sounds bilaterally, no wheezing) Cardiovascular: other, regular rate and rhythm Gastrointestinal: bowel sounds, non-tender, soft Extremities: edema (Trace) Results Result Diagram: 03/17/1724 03/17/1724 Results 24 hrs Laboratory Tests Test 03/16/17 14:25 03/16/17 17:21 03/17/17 07:52 03/17/17 09:24 White Blood Count 10.1 12.4 #H Red Blood Count 4.12 L 4.03 L Hemoglobin 12.3 12.0 Hematocrit 39.6 38.0 Mean Corpuscular Volume 96.1 94.3 Mean Corpuscular Hemoglobin 29.9 29.8 Mean Corpuscular Hemoglobin Concent 31.1 L 31.6 L Red Cell Distribution Width 15.6 H 15.6 H Platelet Count 425 H 418 H Mean Platelet Volume 8.9 8.8 Neutrophils % 68.5 73.2 Lymphocytes % 22.7 18.4 Monocytes % 7.0 6.9 Eosinophils % 0.7 0.6 Basophils % 0.6 0.6 Nucleated Red Blood Cells % 0.0 0.0 Neutrophils # 6.9 9.1 H Lymphocytes # 2.3 2.3 Monocytes # 0.7 0.9 Eosinophils # 0.1 0.1 Basophils # 0.1 0.1 Nucleated Red Blood Cells # 0.0 0.0 Sodium Level 137 138 Potassium Level 4.3 4.2 Chloride Level 107 107 Carbon Dioxide Level 23 23 Anion Gap 11 12 Blood Urea Nitrogen 16 15 Creatinine 0.52 0.51 Glucose Level 96 102 Calcium Level 9.3 9.2 Bedside Glucose 98 105 Test 03/17/17 11:48 Bedside Glucose 98 Medications Medications Current Medications Lorazepam (Ativan) 1 mg Q4H PRN IV agitation Last administered on 03/11/17 06: 27; Admin Dose 1 MG; Start 03/11/17 at 03:00 Insulin Aspart (Novolog Insulin Pen) NOVOLOG *MODERATE* ALGORI... Q6 SC ; Start 03/11/17 at 06:00 Acetaminophen (Tylenol Liquid) 650 mg Q4H PRN GTB PAIN AND OR ELEVATED TEMP Last administered on 03/14/17 06:00; Admin Dose 650 MG; Start 03/11/17 at 03:00 Al Hydrox/Mg Hydrox/Simethicone (Mag-Al Plus) 30 ml Q4H PRN GTB GASTROINTESTINAL UPSET; Start 03/11/17 at 03:00 Clonazepam (Klonopin) 0.5 mg Q8 GTB Last administered on 03/16/17 14:19; Admin Dose 0.5 MG; Start 03/11/17 at 06:00 Clotrimazole (Lotrimin Cr) 1 applic AM TOP Last administered on 03/15/17 09:16 ; Admin Dose 1 APPLIC; Start 03/11/17 at 09:00 Docusate Sodium (Colace Liquid Cup) 100 mg BID GTB Last administered on 20:30; Admin Dose 100 MG; Start 03/11/17 at 09:00 Epoetin Mina (Epogen (Esrd)) 1,000 units MoWeFr@17 SC Last administered on 03/13 18:01; Admin Dose 1,000 UNITS; Start 03/13/17 at 17:00 Miscellaneous Information 1 ea NOTE XX ; Start 03/11/17 at 03:15 Glucose (Glutose) 15 gm Q15M PRN PO DECREASED GLUCOSE; Start 03/11/17 at 03:15 Glucose (Glutose) 22.5 gm Q15M PRN PO DECREASED GLUCOSE; Start 03/11/17 at 03:15 Dextrose (D50w Syringe) 25 ml Q15M PRN IV DECREASED GLUCOSE; Start 03/11/17 at 03:15 Dextrose (D50w Syringe) 50 ml Q15M PRN IV DECREASED GLUCOSE; Start 03/11/17 at 03:15 Glucagon (Glucagen) 1 mg Q15M PRN IM DECREASED GLUCOSE; Start 03/11/17 at 03:15 Glucose (Glutose) 15 gm Q15M PRN BUCCAL DECREASED GLUCOSE; Start 03/11/17 at 03: 15 Acetaminophen/ Hydrocodone Bitart ([place] (5/325)) 1 tab Q6H PRN GTB pain Last administered on 03/13/17 03:03; Admin Dose 1 TAB; Start 03/11/17 at 03:30 Ondansetron HCl (Zofran Inj) 4 mg Q6H PRN IV NAUSEA AND/OR VOMITING; Start 03/11 at 03:30 Phenobarbital (Luminal) 64.8 mg BID PO Last administered on 03/15/17 20:29; Admin Dose 64.8 MG; Start 03/11/17 at 09:00 Phenytoin (Dilantin Susp Cup) 100 mg TID GTB Last administered on 03/15/17 20: 29; Admin Dose 100 MG; Start 03/11/17 at 09:00 Topiramate 200 mg 200 mg BID PO Last administered on 03/15/17 20:30; Admin Dose 200 MG; Start 03/11/17 at 09:00 Levetiracetam 100 ml @ 400 mls/hr Q12 IVPB Last administered on 03/17/17 08: 47; Admin Dose 400 MLS/HR; Start 03/11/17 at 09:00 Levofloxacin/ Dextrose (Levaquin 500mg/ D5W 100 ml (Pmx)) 100 ml @ 100 mls/hr Q24H IVPB Last administered on 03/17/17 04:15; Admin Dose 100 MLS/HR; Start at 03:30 Loperamide HCl (Imodium Cap) 2 mg Q6H PRN GTB diarrhea; Start 03/11/17 at 03:30 Magnesium Hydroxide (Milk Of Mag) 30 ml DAILY PRN PO CONSTIPATION; Start at 03:30 Metoprolol Tartrate (Lopressor) 25 mg BID GTB Last administered on 03/15/17 20 :30; Admin Dose 25 MG; Start 03/11/17 at 09:00 Ondansetron HCl (Zofran Inj) 4 mg Q6H PRN IV NAUSEA AND/OR VOMITING; Start 03/11 at 03:30 Acetaminophen (Tylenol Supp) 650 mg Q6H PRN [place] PAIN LEVEL 1-3 OR FEVER; Start 03/11/17 at 03:30 Multivitamins Therapeutic (Theragran) 1 tab DAILY PO Last administered on 09:15; Admin Dose 1 TAB; Start 03/14/17 at 10:00 Zinc Sulfate (Zinc Sulfate) 220 mg DAILY PO Last administered on 03/15/17 09: 12; Admin Dose 220 MG; Start 03/14/17 at 10:00 Ascorbic Acid (Vitamin C) 500 mg DAILY PO Last administered on 03/15/17 09:15 ; Admin Dose 500 MG; Start 03/14/17 at 10:00 Amiodarone HCl (Cordarone) 100 mg DAILY GTB Last administered on 03/15/17 09: 14; Admin Dose 100 MG; Start 03/15/17 at 09:00 Vlad Leyva DO Mar 17, 2017 12:12
--- NOTE | 2017-03-17 12:33 | PN ---
DATE: 03/17/2017 CHIEF COMPLAINT: History of pancreatitis. SUBJECTIVE DATA: The patient is a 61-year-old [place] female, initially admitted to the hospital with severe pancreatitis. She has developed pancreatitis with abscess formation of the pseudocyst. ERCP was done. Common bile duct stones were removed. Subsequently, a G-tube was placed, which apparently also helped me to put a J-tube for feeding purposes. Now she has had multiple drains, percutaneously draining. Also, I did place a stent into the pancreatic duct. Now, the patient is seen by Dr. Cherry. She had 2 percutaneous drains placed, one with a large-bore and large-size drain to facilitate complete clearing of the pseudocyst of the pancreas. OBJECTIVE DATA: At this time on examination, patient continues to show evidence of drainage from the percutaneous pancreatic drainage tubes. Yesterday, she had 95 cc day. The day before yesterday, she had 231 cc. Second drain also she had a 95 cc yesterday. Today, there is minimal drainage. CLINICAL IMPRESSION: Pseudocyst of the pancreas, which is an infected pseudocyst. She has 2 drains now, which are draining constantly. PLAN: At this time, continue to facilitate drainage and we will probably have to repeat a CAT scan next week to see if the drainage and the pseudocyst size is decreasing. Dictated By: Chaitanya Green MD /[email or web address] /Document#: [id number]
--- NOTE | 2017-03-17 14:39 | PN ---
Date/Time of Note Date/Time of Note DATE: 03/17/17 TIME: 14:37 Assessment/Plan VTE Prophylaxis VTE Prophylaxis Intervention: SCD's Lines/Catheters IV Catheter Type (from Nrs): Peripheral IV Urinary Cath still in place: Yes Reason Cath still needed: urinary retention Assessment/Plan Chief Complaint/Hosp Course Assessment/Plan: 61 yo F past medical history paroxysmal A. fib, with recent long hospital stay for gallstone pancreatitis c/b pseudocyst formation requiring drainage transferred from [facility] as concern for change in characteristics of abd fluid collection. PLAN -general surgery following, follow-up recommendations, monitor drainage from both left abdomen drains, case management working on insurance authorization to approve transfer to [facility] - follow-up surgery, cardiology, ID recommendations -Monitor agitation symptoms. -cont vent weaning, pulm following, trach in place -cont TFs through PEG, consider video swallow study when patient gets transferred -cont ortiz for urinary retention -Monitor LFTs -Monitor heart rate on telemetry for now Problems: Subjective 24 Hr Interval Summary Free Text/Dictation No acute events overnight, seen by speech therapy team this morning. Less combative today per nursing staff. Exam/Review of Systems Vital Signs Vitals Vital Signs Date Time Temp Pulse Resp B/P Pulse Ox O2 Delivery O2 Flow Rate FiO2 03/17/17 13:58 89 20 98 Aerosol 5.0 28 03/17/17 13:36 98.2 114/68 Intake and Output 03/16/17 03/16/17 03/17/17 15:00 23:00 07:00 Intake Total 750 ml Output Total 0 ml 700 ml Balance 0 ml 50 ml Exam Lying in bed, no acute distress Supple PEG in place abd drains with mild cloudy yellow-brownish output lungs clear nbo rashes Results Result Diagram: 03/17/1792303/17/17923 Results 24 hrs Laboratory Tests Test 03/16/17 17:21 03/17/17 07:52 03/17/17 09:24 03/17/17 11:48 Bedside Glucose 98 105 98 White Blood Count 12.4 #H Red Blood Count 4.03 L Hemoglobin 12.0 Hematocrit 38.0 Mean Corpuscular Volume 94.3 Mean Corpuscular Hemoglobin 29.8 Mean Corpuscular Hemoglobin Concent 31.6 L Red Cell Distribution Width 15.6 H Platelet Count 418 H Mean Platelet Volume 8.8 Neutrophils % 73.2 Lymphocytes % 18.4 Monocytes % 6.9 Eosinophils % 0.6 Basophils % 0.6 Nucleated Red Blood Cells % 0.0 Neutrophils # 9.1 H Lymphocytes # 2.3 Monocytes # 0.9 Eosinophils # 0.1 Basophils # 0.1 Nucleated Red Blood Cells # 0.0 Sodium Level 138 Potassium Level 4.2 Chloride Level 107 Carbon Dioxide Level 23 Anion Gap 12 Blood Urea Nitrogen 15 Creatinine 0.51 Glucose Level 102 Calcium Level 9.2 Medications Medications Current Medications Lorazepam (Ativan) 1 mg Q4H PRN IV agitation Last administered on 03/11/17 06: 27; Admin Dose 1 MG; Start 03/11/17 at 03:00 Insulin Aspart (Novolog Insulin Pen) NOVOLOG *MODERATE* ALGORI... Q6 SC ; Start 03/11/17 at 06:00 Acetaminophen (Tylenol Liquid) 650 mg Q4H PRN GTB PAIN AND OR ELEVATED TEMP Last administered on 03/14/17 06:00; Admin Dose 650 MG; Start 03/11/17 at 03:00 Al Hydrox/Mg Hydrox/Simethicone (Mag-Al Plus) 30 ml Q4H PRN GTB GASTROINTESTINAL UPSET; Start 03/11/17 at 03:00 Clonazepam (Klonopin) 0.5 mg Q8 GTB Last administered on 03/17/17 13:21; Admin Dose 0.5 MG; Start 03/11/17 at 06:00 Clotrimazole (Lotrimin Cr) 1 applic AM TOP Last administered on 03/15/17 09:16 ; Admin Dose 1 APPLIC; Start 03/11/17 at 09:00 Docusate Sodium (Colace Liquid Cup) 100 mg BID GTB Last administered on 20:30; Admin Dose 100 MG; Start 03/11/17 at 09:00 Epoetin Mina (Epogen (Esrd)) 1,000 units MoWeFr@17 SC Last administered on 03/13 18:01; Admin Dose 1,000 UNITS; Start 03/13/17 at 17:00 Miscellaneous Information 1 ea NOTE XX ; Start 03/11/17 at 03:15 Glucose (Glutose) 15 gm Q15M PRN PO DECREASED GLUCOSE; Start 03/11/17 at 03:15 Glucose (Glutose) 22.5 gm Q15M PRN PO DECREASED GLUCOSE; Start 03/11/17 at 03:15 Dextrose (D50w Syringe) 25 ml Q15M PRN IV DECREASED GLUCOSE; Start 03/11/17 at 03:15 Dextrose (D50w Syringe) 50 ml Q15M PRN IV DECREASED GLUCOSE; Start 03/11/17 at 03:15 Glucagon (Glucagen) 1 mg Q15M PRN IM DECREASED GLUCOSE; Start 03/11/17 at 03:15 Glucose (Glutose) 15 gm Q15M PRN BUCCAL DECREASED GLUCOSE; Start 03/11/17 at 03: 15 Acetaminophen/ Hydrocodone Bitart ([place] (5/325)) 1 tab Q6H PRN GTB pain Last administered on 03/13/17 03:03; Admin Dose 1 TAB; Start 03/11/17 at 03:30 Ondansetron HCl (Zofran Inj) 4 mg Q6H PRN IV NAUSEA AND/OR VOMITING; Start 03/11 at 03:30 Phenobarbital (Luminal) 64.8 mg BID PO Last administered on 03/17/17 13:18; Admin Dose 64.8 MG; Start 03/11/17 at 09:00 Phenytoin (Dilantin Susp Cup) 100 mg TID GTB Last administered on 03/17/17 13: 22; Admin Dose 100 MG; Start 03/11/17 at 09:00 Topiramate 200 mg 200 mg BID PO Last administered on 03/17/17 13:22; Admin Dose 200 MG; Start 03/11/17 at 09:00 Levetiracetam 100 ml @ 400 mls/hr Q12 IVPB Last administered on 03/17/17 08: 47; Admin Dose 400 MLS/HR; Start 03/11/17 at 09:00 Levofloxacin/ Dextrose (Levaquin 500mg/ D5W 100 ml (Pmx)) 100 ml @ 100 mls/hr Q24H IVPB Last administered on 03/17/17 04:15; Admin Dose 100 MLS/HR; Start at 03:30 Loperamide HCl (Imodium Cap) 2 mg Q6H PRN GTB diarrhea; Start 03/11/17 at 03:30 Magnesium Hydroxide (Milk Of Mag) 30 ml DAILY PRN PO CONSTIPATION; Start at 03:30 Metoprolol Tartrate (Lopressor) 25 mg BID GTB Last administered on 03/17/17 13 :20; Admin Dose 25 MG; Start 03/11/17 at 09:00 Ondansetron HCl (Zofran Inj) 4 mg Q6H PRN IV NAUSEA AND/OR VOMITING; Start 03/11 at 03:30 Acetaminophen (Tylenol Supp) 650 mg Q6H PRN [place] PAIN LEVEL 1-3 OR FEVER; Start 03/11/17 at 03:30 Multivitamins Therapeutic (Theragran) 1 tab DAILY PO Last administered on 09:15; Admin Dose 1 TAB; Start 03/14/17 at 10:00 Zinc Sulfate (Zinc Sulfate) 220 mg DAILY PO Last administered on 03/15/17 09: 12; Admin Dose 220 MG; Start 03/14/17 at 10:00 Ascorbic Acid (Vitamin C) 500 mg DAILY PO Last administered on 03/17/17 13:21 ; Admin Dose 500 MG; Start 03/14/17 at 10:00 Amiodarone HCl (Cordarone) 100 mg DAILY GTB Last administered on 03/17/17 13: 19; Admin Dose 100 MG; Start 03/15/17 at 09:00 CARYN ESCOTO Mar 17, 2017 14:39
--- NOTE | 2017-03-17 16:03 | CONS ---
Date/Time of Note Date/Time of Note DATE: 03/17/17 TIME: 16:01 Assessment/Plan Assessment/Plan Chief Complaint/Hosp Course SUBJECTIVE DATA: No acute events overnight. The patient is alert, looks comfortable, no fevers, + diarrhea Indwelling: trach, PEG, intra-abdominal drainage catheter. PHYSICAL EXAMINATION: GENERAL: This is a chronically ill-appearing, elderly [place] woman, who is in no distress. HEENT: Head atraumatic, normocephalic. Sclerae anicteric. Buccal mucosa dry. NECK: Supple. CHEST: Rise symmetrical. Breath sounds diminished at bases. HEART: S1, S2. ABDOMEN: Soft, bowel sounds present. EXTREMITIES: Without cyanosis. ASSESSMENT: 1. Acute complicated pancreatitis with pancreatic pseudocyst status post CT-guided pigtail catheter placement ===> fluid cx neg 2. Left mastoiditis===> treated. 3. Chronic respiratory failure. 4. Diarrhea, r/o C dif 5. History of urinary tract infection and pneumonia. 6. History of acute renal failure requiring hemodialysis, now off. PLAN: Clinically stable, fluid cx negative, will send stool for C dif and start on PO Vanco, continue present care. GI/pulm/surgical rec-s DW staff Problems: Consultation Date/Type/Reason Admit Date/Time Mar 11, 2017 at 02:03 Initial Consult Date 03/11/17 Type of Consultation: ID Exam/Review of Systems Vital Signs Vitals Vital Signs Date Time Temp Pulse Resp B/P Pulse Ox O2 Delivery O2 Flow Rate FiO2 03/17/17 15:33 98.1 72 16 115/72 97 03/17/17 13:58 Aerosol 5.0 28 Intake and Output 03/16/17 03/16/17 03/17/17 15:00 23:00 07:00 Intake Total 750 ml Output Total 0 ml 700 ml Balance 0 ml 50 ml Results Result Diagram: 03/17/1792303/17/17 0924 Results 24 hrs Laboratory Tests Test 03/16/17 17:21 03/17/17 07:52 03/17/17 09:24 03/17/17 11:48 Bedside Glucose 98 105 98 White Blood Count 12.4 #H Red Blood Count 4.03 L Hemoglobin 12.0 Hematocrit 38.0 Mean Corpuscular Volume 94.3 Mean Corpuscular Hemoglobin 29.8 Mean Corpuscular Hemoglobin Concent 31.6 L Red Cell Distribution Width 15.6 H Platelet Count 418 H Mean Platelet Volume 8.8 Neutrophils % 73.2 Lymphocytes % 18.4 Monocytes % 6.9 Eosinophils % 0.6 Basophils % 0.6 Nucleated Red Blood Cells % 0.0 Neutrophils # 9.1 H Lymphocytes # 2.3 Monocytes # 0.9 Eosinophils # 0.1 Basophils # 0.1 Nucleated Red Blood Cells # 0.0 Sodium Level 138 Potassium Level 4.2 Chloride Level 107 Carbon Dioxide Level 23 Anion Gap 12 Blood Urea Nitrogen 15 Creatinine 0.51 Glucose Level 102 Calcium Level 9.2 Medications Medications Current Medications Lorazepam (Ativan) 1 mg Q4H PRN IV agitation Last administered on 03/11/17 06: 27; Admin Dose 1 MG; Start 03/11/17 at 03:00 Insulin Aspart (Novolog Insulin Pen) NOVOLOG *MODERATE* ALGORI... Q6 SC ; Start 03/11/17 at 06:00 Acetaminophen (Tylenol Liquid) 650 mg Q4H PRN GTB PAIN AND OR ELEVATED TEMP Last administered on 03/14/17 06:00; Admin Dose 650 MG; Start 03/11/17 at 03:00 Al Hydrox/Mg Hydrox/Simethicone (Mag-Al Plus) 30 ml Q4H PRN GTB GASTROINTESTINAL UPSET; Start 03/11/17 at 03:00 Clonazepam (Klonopin) 0.5 mg Q8 GTB Last administered on 03/17/17 13:21; Admin Dose 0.5 MG; Start 03/11/17 at 06:00 Clotrimazole (Lotrimin Cr) 1 applic AM TOP Last administered on 03/15/17 09:16 ; Admin Dose 1 APPLIC; Start 03/11/17 at 09:00 Docusate Sodium (Colace Liquid Cup) 100 mg BID GTB Last administered on 20:30; Admin Dose 100 MG; Start 03/11/17 at 09:00 Epoetin Mina (Epogen (Esrd)) 1,000 units MoWeFr@17 SC Last administered on 03/13 18:01; Admin Dose 1,000 UNITS; Start 03/13/17 at 17:00 Miscellaneous Information 1 ea NOTE XX ; Start 03/11/17 at 03:15 Glucose (Glutose) 15 gm Q15M PRN PO DECREASED GLUCOSE; Start 03/11/17 at 03:15 Glucose (Glutose) 22.5 gm Q15M PRN PO DECREASED GLUCOSE; Start 03/11/17 at 03:15 Dextrose (D50w Syringe) 25 ml Q15M PRN IV DECREASED GLUCOSE; Start 03/11/17 at 03:15 Dextrose (D50w Syringe) 50 ml Q15M PRN IV DECREASED GLUCOSE; Start 03/11/17 at 03:15 Glucagon (Glucagen) 1 mg Q15M PRN IM DECREASED GLUCOSE; Start 03/11/17 at 03:15 Glucose (Glutose) 15 gm Q15M PRN BUCCAL DECREASED GLUCOSE; Start 03/11/17 at 03: 15 Acetaminophen/ Hydrocodone Bitart ([place] (5/325)) 1 tab Q6H PRN GTB pain Last administered on 03/13/17 03:03; Admin Dose 1 TAB; Start 03/11/17 at 03:30 Ondansetron HCl (Zofran Inj) 4 mg Q6H PRN IV NAUSEA AND/OR VOMITING; Start 03/11 at 03:30 Phenobarbital (Luminal) 64.8 mg BID PO Last administered on 03/17/17 13:18; Admin Dose 64.8 MG; Start 03/11/17 at 09:00 Phenytoin (Dilantin Susp Cup) 100 mg TID GTB Last administered on 03/17/17 13: 22; Admin Dose 100 MG; Start 03/11/17 at 09:00 Topiramate 200 mg 200 mg BID PO Last administered on 03/17/17 13:22; Admin Dose 200 MG; Start 03/11/17 at 09:00 Levetiracetam 100 ml @ 400 mls/hr Q12 IVPB Last administered on 03/17/17 08: 47; Admin Dose 400 MLS/HR; Start 03/11/17 at 09:00 Levofloxacin/ Dextrose (Levaquin 500mg/ D5W 100 ml (Pmx)) 100 ml @ 100 mls/hr Q24H IVPB Last administered on 03/17/17 04:15; Admin Dose 100 MLS/HR; Start at 03:30 Loperamide HCl (Imodium Cap) 2 mg Q6H PRN GTB diarrhea; Start 03/11/17 at 03:30 Magnesium Hydroxide (Milk Of Mag) 30 ml DAILY PRN PO CONSTIPATION; Start at 03:30 Metoprolol Tartrate (Lopressor) 25 mg BID GTB Last administered on 03/17/17 13 :20; Admin Dose 25 MG; Start 03/11/17 at 09:00 Ondansetron HCl (Zofran Inj) 4 mg Q6H PRN IV NAUSEA AND/OR VOMITING; Start 03/11 at 03:30 Acetaminophen (Tylenol Supp) 650 mg Q6H PRN MA PAIN LEVEL 1-3 OR FEVER; Start 03/11/17 at 03:30 Multivitamins Therapeutic (Theragran) 1 tab DAILY PO Last administered on 09:15; Admin Dose 1 TAB; Start 03/14/17 at 10:00 Zinc Sulfate (Zinc Sulfate) 220 mg DAILY PO Last administered on 03/15/17 09: 12; Admin Dose 220 MG; Start 03/14/17 at 10:00 Ascorbic Acid (Vitamin C) 500 mg DAILY PO Last administered on 03/17/17 13:21 ; Admin Dose 500 MG; Start 03/14/17 at 10:00 Amiodarone HCl (Cordarone) 100 mg DAILY GTB Last administered on 03/17/17 13: 19; Admin Dose 100 MG; Start 03/15/17 at 09:00 MIKE TURCIOS NP Mar 17, 2017 16:03
[2017-03-17] MEDS: EPOETIN 3000 UNITS/1 ML INJ (ESRD) SC SCH (16:13)
[2017-03-17] MEDS: VANCOMYCIN HCL 250 MG/5ML POSYG PO SCH (18:21)
--- NOTE | 2017-03-17 19:38 | PN ---
Date/Time of Note Date/Time of Note DATE: 03/17/17 TIME: 19:38 Assessment/Plan Lines/Catheters IV Catheter Type (from Nrs): Peripheral IV Matias in Place (from Nrs): Yes Assessment/Plan Chief Complaint/Hosp Course 1. Peripancreatic fluid collection: drain in place with increased output yesterday. s/p drain upsizing with additional drain -continue drain to bulb suction -defer to HBS/GI -abx per sensitivity 2. Mastoiditis -cont abx 3. Hx. of respiratory failure with trach: comfortable on trach collar -supportive -pulmonary toilet 4. Dysphagia with PEG placement -cont tf with aspiration precautions 5. Thrombocytosis: likely 2/2 #1 -supportive -as above 6.Confusion/agitation: currently pulling at tubes and drains, off restraints -supportive Thank you, Problems: Subjective 24 Hr Interval Summary Leukocytosis. No fevers, chills, sob, cp, cough, sz, rash, tele changes, vomiting, diarrhea. Exam/Review of Systems Vital Signs Vitals Vital Signs Date Time Temp Pulse Resp B/P Pulse Ox O2 Delivery O2 Flow Rate FiO2 03/18/17 08:38 99.0 102 18 108/71 99 03/18/17 01:45 5.0 28 03/17/17 13:58 Aerosol Intake and Output 03/17/17 03/17/17 03/18/17 15:00 23:00 07:00 Intake Total 800 ml 800 ml Output Total 0 ml 1310 ml 650 ml Balance 0 ml -510 ml 150 ml Exam Free Text/Dictation Constitutional: alert, tracks. No distress, No oriented Psych: nl mood/affect, no complaints, confused; intermittent agitation Head: atraumatic, normocephalic Eyes: nl lids, nl sclera ENMT: mucosa pink and moist Neck: non-tender, trach with trach collar Respiratory: normal air movement, No congested cough Cardiovascular: nl pulses, regular rate and rhythm Gastrointestinal: non-tender, other 2 drains- 1 left flank drain with creamy drainage in bag, other without drainage (peg), soft, No distended Musculoskeletal: muscle weakness, nl extremities to inspection Extremities: normal pulses, No edema Neurological: confused, No nl mental status Skin: No rash or lesions Results Result Diagram: 03/18/17 0939 03/18/1739 NICK LUCERO MD Mar 17, 2017 19:38
[2017-03-18] VITALS (10 sets, daily range): BP systolic 108–117; BP diastolic 70–76; PULSE 92–132; RESP 17–18
[2017-03-18] MEDS: LEVOFLOXACIN 500MG/D5W (PMX) 100 ML IVPB SCH (03:30)
[2017-03-18] MEDS: clonAZEPAM 0.5 MG TAB GTB SCH ×3 (06:00→20:54)
[2017-03-18] MEDS: INSULIN ASPART [NOVOLOG] 3 ML PEN SC SCH ×4 (06:00→17:36)
[2017-03-18] MEDS: VANCOMYCIN HCL 250 MG/5ML POSYG PO SCH ×4 (06:00→18:17)
[2017-03-18] MEDS: DOCUSATE SODIUM 10 MG/ML (10ML CUP) GTB SCH ×2 (08:51→20:48)
[2017-03-18] MEDS: CLOTRIMAZOLE 1% 30 GM CR TOP SCH (09:00)
[2017-03-18] MEDS: PHENOBARBITAL 32.4 MG TAB PO SCH ×2 (09:35→20:55)
[2017-03-18] MEDS: ZINC SULFATE 220 MG CAP PO SCH (09:35)
[2017-03-18] MEDS: PHENYTOIN (100 MG/4 ML) CUP GTB SCH ×3 (09:36→20:53)
[2017-03-18] MEDS: METOPROLOL 25 MG TAB GTB SCH ×2 (09:36→20:55)
[2017-03-18] MEDS: TOPIRAMATE 100 MG TAB PO SCH ×2 (09:36→20:54)
[2017-03-18] MEDS: LEVETIRACETAM 1000 MG (PMX) 100 ML IVPB SCH ×2 (09:37→20:53)
[2017-03-18] MEDS: MULTIVITAMINS THERAPEUTIC TAB PO SCH (09:37)
[2017-03-18] MEDS: ASCORBIC ACID 500 MG TAB PO SCH (09:37)
[2017-03-18] MEDS: AMIODARONE 200 MG TAB GTB SCH (09:38)
[2017-03-18 09:48] LABS: ABNORMAL IP MESSAGE 1; HEMATOCRIT 39.7 % (37.0-47.0); HEMOGLOBIN 12.9 g/dl (12.0-16.0); MEAN CORPUSCULAR HEMOGLOBIN 30.2 pg (29.0-33.0); MEAN CORPUSCULAR HGB CONC 32.5 g/dl (32.0-37.0); MEAN PLATELET VOLUME 8.9 fl (7.4-10.4); PLATELET COUNT 427 10^3/UL (140-415); RED BLOOD COUNT 4.27 10^6/ul (4.20-5.40); RED CELL DISTRIBUTION WIDTH 15.6 % (11.5-14.5); WHITE BLOOD COUNT 38.1 10^3/ul (4.8-10.8)
[2017-03-18] MEDS: BALSAM PERU/CASTOR OIL 60 GM TUBE TOP SCH (09:50)
[2017-03-18 09:51] LABS: POSITIVE DIFF @See below
[2017-03-18 10:06] LABS: CALCIUM 9.4 mg/dl (8.4-10.2); CREATININE 0.52 mg/dl (0.44-1.00); POTASSIUM 4.2 mmol/L (3.5-5.1)
[2017-03-18 10:11] LABS: BASOPHILS % (M) 1 % (0-2); EOSINOPHILS % (M) 1 % (0-7); MONOCYTES % (M) 1 % (0-11); PLATELET ESTIMATE NORMAL
[2017-03-18 10:40] LABS: MAGNESIUM 1.7 mg/dl (1.7-2.5); PHOSPHORUS 5.1 mg/dl (2.5-4.9)
--- NOTE | 2017-03-18 12:04 | PN ---
Date/Time of Note Date/Time of Note DATE: 03/18/17 TIME: 12:00 Assessment/Plan Lines/Catheters IV Catheter Type (from [facility]): Peripheral IV Matias in Place (from [facility]): Yes Assessment/Plan Chief Complaint/Hosp Course 1. Peripancreatic fluid collection: drain in place with increased output yesterday. s/p drain upsizing with additional drain -continue drain to bulb suction -defer to HBS/GI -abx per sensitivity 2. Mastoiditis -cont abx 3. Hx. of respiratory failure with trach: comfortable on trach collar -supportive -pulmonary toilet 4. Dysphagia with PEG placement -cont tf with aspiration precautions 5. Thrombocytosis: likely 2/2 #1 -supportive -as above 6. Worsening leukocytosis ? etiology ? CDiff -aggressive abx (consider vanco enema) -supportive -rule out other sites Thank you, Problems: Subjective 24 Hr Interval Summary Significant worsening leukocytosis. +CDiff. Tachycardia. No fevers, chills, sob, cp, cough, sz, rash, bloating, vomiting. Bowel function. Exam/Review of Systems Vital Signs Vitals Vital Signs Date Time Temp Pulse Resp B/P Pulse Ox O2 Delivery O2 Flow Rate FiO2 03/19/17 00:17 126 03/18/17 21:30 8.0 03/18/17 20:22 100.1 18 114/71 99 03/18/17 19:48 Aerosol 28 Intake and Output 03/18/17 03/18/17 03/19/17 15:00 23:00 07:00 Intake Total 700 ml 350 ml Output Total 0 ml 680 ml Balance 0 ml 20 ml 350 ml Exam Free Text/Dictation Constitutional: alert, tracks. No distress, No oriented Psych: nl mood/affect, no complaints, confused; intermittent agitation Head: atraumatic, normocephalic Eyes: nl lids, nl sclera ENMT: mucosa pink and moist Neck: non-tender, trach with trach collar Respiratory: normal air movement, No congested cough Cardiovascular: nl pulses, regular rate and rhythm Gastrointestinal: non-tender, other 2 drains- 1 left flank drain with creamy drainage in bag, other without drainage (peg), soft, No distended Musculoskeletal: muscle weakness, nl extremities to inspection Extremities: normal pulses, No edema Neurological: confused, No nl mental status Skin: No rash or lesions Results Result Diagram: 03/18/17 1629 03/18/17 0939 NICK LUCERO MD Mar 18, 2017 12:03
[2017-03-18] MEDS ORDERED: SOD CHLORIDE 0.9% 250 ML IV ONE (15:30)
--- NOTE | 2017-03-18 15:34 | PDOCDIS ---
Discharge Instructions CONDITION Patient Condition: Stable HOME CARE INSTRUCTIONS: Special Diet: EDILIAO CARYN ESCOTO Mar 18, 2017 15:34
[2017-03-18 16:43] LABS: ABNORMAL IP MESSAGE 1; HEMOGLOBIN 11.8 g/dl (12.0-16.0); MEAN CORPUSCULAR HEMOGLOBIN 30.3 pg (29.0-33.0); MEAN CORPUSCULAR HGB CONC 32.8 g/dl (32.0-37.0); MEAN CORPUSCULAR VOLUME 92.3 fl (82.0-101.0); MEAN PLATELET VOLUME 9.1 fl (7.4-10.4); PLATELET COUNT 434 10^3/UL (140-415); RED CELL DISTRIBUTION WIDTH 15.6 % (11.5-14.5); WHITE BLOOD COUNT 35.4 10^3/ul (4.8-10.8)
[2017-03-18 16:44] LABS: POSITIVE DIFF @See below
--- NOTE | 2017-03-18 16:53 | DS ---
DATE OF ADMISSION: 03/11/2017 DATE OF DISCHARGE: 03/18/2017 HOSPITAL COURSE: This is a 61-year-old female, who was admitted on 03/19/2017 after being discharged at [facility] on 03/18/2017. The patient came in initially after recent long hospital stay for gallstone pancreatitis because of pseudocyst formation. This required drainage so she was transferred from [place] as there was a concern for change in the characteristics of abdominal fluid collection. She was admitted here to the hospital and seen by multiple specialists during this hospital stay including pulmonary team, hepatobiliary surgery team, general surgery team, infectious disease team, and cardiology team. She has a prior history of paroxysmal AFib as well, so she was admitted and drainage was monitored from the left abdominal drain. She did end up having findings of peripancreatic fluid collection and a new drain was placed as well in the left abdomen area and drainage output was increased since that time. She also was treated with antibiotics both for this peripancreatic fluid collection and also for mastoiditis. Unfortunately, her C diff test also came back positive, and after completing IV antibiotics for the mastoiditis and the fluid infection, she was placed on p.o. vancomycin antibiotics as well to help complete treatment for that. During the course of the hospital stay she had some agitation symptoms, but otherwise was alert. Her vital signs were relatively stable. She has a little bit of tachycardia on day of discharge. We are going to repeat CBC as there seems to be an abnormality with the white blood cell count as she has no fevers. If the repeat CBC comes back normal, she will be discharged to the [facility] today in improved condition. If she goes today she will be sent with Tylenol 650 q.4 p.r.n., milk of magnesia p.r.n., amiodarone 100 mg daily, vitamin 500 mg daily, balsam jack castor oil apply topically daily, Klonopin 0.5 mg p.o. q.8 p.r.n., Lotrimin cream, apply topically every morning, epoetin 1000 units Monday, Monday, Monday, [place] 5/325 q.6 p.r.n., moderate insulin sliding scale asked for, Keppra 1000 mg q.12, Levaquin 500 mg IV q.day for 3 more days, Ativan 1 mg IV q.4 p.r.n., milk of magnesia 30 mL daily p.r.n., metoprolol 25 mg b.i.d., multivitamin 1 tab daily, Zofran 4 mg IV q.6 p.r.n., phenobarbital 64.8 mg b.i.d., Dilantin 100 mg t.i.d., Topamax 200 mg b.i.d., vancomycin 250 mg p.o. q.6 hours 14 days, zinc sulfate 220 mg daily. She will need to follow up prior primary care doctor in clinic in the next 1 to 2 weeks. FINAL DIAGNOSES: 1. History of gallstone pancreatitis with pseudocyst formation, now status post drainage placement here during this hospital stay. 2. History of paroxysmal atrial fibrillation. 3. Prior history of septic shock in December secondary to gallstone pancreatitis, status post ERCP at that time with stent placement. 4. Course of acute kidney injury requiring temporary hemodialysis. 5. Respiratory failure, status post tracheostomy. 6. Dysphagia, status post PEG placement with G-tube feeds. 7. Positive Clostridium difficile colitis. 8. Mastoiditis, status post antibiotic treatment. 9. Paroxysmal atrial fibrillation. 10. History of essential hypertension. 11. Preserved ejection fraction. Time spent for discharge of patient, 50 minutes. Dictated By: Markell Reina MD /[email or web address] /Document#: [id number]
--- NOTE | 2017-03-18 17:56 | CONS ---
Date/Time of Note Date/Time of Note DATE: 03/18/17 TIME: 17:55 Consult Date/Type/Reason Admit Date/Time Mar 11, 2017 at 02:03 Initial Consult Date 03/11/17 Type of Consultation: Pulm Subjective No events Objective Vital Signs Date Time Temp Pulse Resp B/P Pulse Ox O2 Delivery O2 Flow Rate FiO2 03/18/17 16:51 119 03/18/17 16:33 98.1 17 117/70 97 03/18/17 13:02 8.0 03/18/17 01:45 28 03/17/17 13:58 Aerosol Intake and Output 03/17/17 03/17/17 03/18/17 15:00 23:00 07:00 Intake Total 800 ml 800 ml Output Total 0 ml 1310 ml 650 ml Balance 0 ml -510 ml 150 ml Exam HEENT: Neck supple; no JVD; no LAD; trach site clear CVS: RRR, S1 and S2 CHEST: Clear ABD: Soft, NT, + BS EXT: No c/c/e Results/Medications Result Diagram: 03/18/17 1629 03/18/17 0939 Results 24 hrs Laboratory Tests Test 03/18/17 09:39 03/18/17 12:11 03/18/17 16:29 03/18/17 17:10 White Blood Count 38.1 #H 35.4 H Red Blood Count 4.27 3.90 L Hemoglobin 12.9 11.8 L Hematocrit 39.7 36.0 L Mean Corpuscular Volume 93.0 92.3 Mean Corpuscular Hemoglobin 30.2 30.3 Mean Corpuscular Hemoglobin Concent 32.5 32.8 Red Cell Distribution Width 15.6 H 15.6 H Platelet Count 427 H 434 H Mean Platelet Volume 8.9 9.1 Neutrophils % Segmented Neutrophils % (Manual) 88 H Band Neutrophils % (Manual) 1 Lymphocytes % Lymphocytes % (Manual) 8 L Monocytes % Monocytes % (Manual) 1 Eosinophils % Eosinophils % (Manual) 1 Basophils % Basophils % (Manual) 1 Nucleated Red Blood Cells % 0.0 0.0 Neutrophils # Neutrophils # (Manual) 33.6 H Band Neutrophils # 0.3 Absolute Lymphocytes (Manual) 3.0 H Lymphocytes # Monocytes # Absolute Monocytes (Manual) 0.3 Eosinophils # Basophils # Basophils # (Manual) 0.3 H Nucleated Red Blood Cells # Platelet Estimate NORMAL Sodium Level 138 Potassium Level 4.2 Chloride Level 106 Carbon Dioxide Level 22 Anion Gap 14 Blood Urea Nitrogen 17 Creatinine 0.52 Glucose Level 109 Calcium Level 9.4 Phosphorus Level 5.1 H Magnesium Level 1.7 Bedside Glucose 138 132 Medications Current Medications Lorazepam (Ativan) 1 mg Q4H PRN IV agitation Last administered on 03/11/17 06: 27; Admin Dose 1 MG; Start 03/11/17 at 03:00 Insulin Aspart (Novolog Insulin Pen) NOVOLOG *MODERATE* ALGORI... Q6 SC ; Start 03/11/17 at 06:00 Acetaminophen (Tylenol Liquid) 650 mg Q4H PRN GTB PAIN AND OR ELEVATED TEMP Last administered on 03/14/17 06:00; Admin Dose 650 MG; Start 03/11/17 at 03:00 Al Hydrox/Mg Hydrox/Simethicone (Mag-Al Plus) 30 ml Q4H PRN GTB GASTROINTESTINAL UPSET; Start 03/11/17 at 03:00 Clonazepam (Klonopin) 0.5 mg Q8 GTB Last administered on 03/18/17 14:01; Admin Dose 0.5 MG; Start 03/11/17 at 06:00 Clotrimazole (Lotrimin Cr) 1 applic AM TOP Last administered on 03/15/17 09:16 ; Admin Dose 1 APPLIC; Start 03/11/17 at 09:00 Docusate Sodium (Colace Liquid Cup) 100 mg BID GTB Last administered on 20:30; Admin Dose 100 MG; Start 03/11/17 at 09:00 Epoetin Mina (Epogen (Esrd)) 1,000 units MoWeFr@17 SC Last administered on 03/13 18:01; Admin Dose 1,000 UNITS; Start 03/13/17 at 17:00 Miscellaneous Information 1 ea NOTE XX ; Start 03/11/17 at 03:15 Glucose (Glutose) 15 gm Q15M PRN PO DECREASED GLUCOSE; Start 03/11/17 at 03:15 Glucose (Glutose) 22.5 gm Q15M PRN PO DECREASED GLUCOSE; Start 03/11/17 at 03:15 Dextrose (D50w Syringe) 25 ml Q15M PRN IV DECREASED GLUCOSE; Start 03/11/17 at 03:15 Dextrose (D50w Syringe) 50 ml Q15M PRN IV DECREASED GLUCOSE; Start 03/11/17 at 03:15 Glucagon (Glucagen) 1 mg Q15M PRN IM DECREASED GLUCOSE; Start 03/11/17 at 03:15 Glucose (Glutose) 15 gm Q15M PRN BUCCAL DECREASED GLUCOSE; Start 03/11/17 at 03: 15 Acetaminophen/ Hydrocodone Bitart ([place] (5/325)) 1 tab Q6H PRN GTB pain Last administered on 03/13/17 03:03; Admin Dose 1 TAB; Start 03/11/17 at 03:30 Ondansetron HCl (Zofran Inj) 4 mg Q6H PRN IV NAUSEA AND/OR VOMITING; Start 03/11 at 03:30 Phenobarbital (Luminal) 64.8 mg BID PO Last administered on 03/18/17 09:35; Admin Dose 64.8 MG; Start 03/11/17 at 09:00 Phenytoin (Dilantin Susp Cup) 100 mg TID GTB Last administered on 03/18/17 12: 13; Admin Dose 100 MG; Start 03/11/17 at 09:00 Topiramate 200 mg 200 mg BID PO Last administered on 03/18/17 09:36; Admin Dose 200 MG; Start 03/11/17 at 09:00 Levetiracetam 100 ml @ 400 mls/hr Q12 IVPB Last administered on 03/18/17 09: 37; Admin Dose 400 MLS/HR; Start 03/11/17 at 09:00 Levofloxacin/ Dextrose (Levaquin 500mg/ D5W 100 ml (Pmx)) 100 ml @ 100 mls/hr Q24H IVPB Last administered on 03/17/17 04:15; Admin Dose 100 MLS/HR; Start at 03:30 Magnesium Hydroxide (Milk Of Mag) 30 ml DAILY PRN PO CONSTIPATION; Start at 03:30 Metoprolol Tartrate (Lopressor) 25 mg BID GTB Last administered on 03/18/17 09 :36; Admin Dose 25 MG; Start 03/11/17 at 09:00 Ondansetron HCl (Zofran Inj) 4 mg Q6H PRN IV NAUSEA AND/OR VOMITING; Start 03/11 at 03:30 Acetaminophen (Tylenol Supp) 650 mg Q6H PRN [place] PAIN LEVEL 1-3 OR FEVER; Start 03/11/17 at 03:30 Multivitamins Therapeutic (Theragran) 1 tab DAILY PO Last administered on 09:37; Admin Dose 1 TAB; Start 03/14/17 at 10:00 Zinc Sulfate (Zinc Sulfate) 220 mg DAILY PO Last administered on 03/18/17 09: 35; Admin Dose 220 MG; Start 03/14/17 at 10:00 Ascorbic Acid (Vitamin C) 500 mg DAILY PO Last administered on 03/18/17 09:37 ; Admin Dose 500 MG; Start 03/14/17 at 10:00 Amiodarone HCl (Cordarone) 100 mg DAILY GTB Last administered on 03/18/17 09: 38; Admin Dose 100 MG; Start 03/15/17 at 09:00 Vancomycin HCl (Vancomycin Oral Syringe) 250 mg Q6 PO Last administered on 03/18 12:13; Admin Dose 250 MG; Start 03/17/17 at 18:00 Assessment/Plan Additional Assessment/Plan IMPRESSION: 1. Persistent peripancreatic fluid collection in a patient with a history of severe gallstone pancreatitis complicated by septic shock. 2. Chronic respiratory failure, now with tracheostomy. 3. Dysphagia with G-tube 4. Paroxysmal atrial fibrillation. RECS: 1. Continue T-piece 2. BD's. CPT STEPHAN MADRID MD Mar 18, 2017 17:56
[2017-03-18 18:19] LABS: LYMPHOCYTES # 2.8 10^3/ul (0.8-2.9); MONOCYTE # 0.7 10^3/ul (0.3-0.9); MONOCYTES % (M) 2 % (0-11)
--- NOTE | 2017-03-18 20:30 | CONS ---
Date/Time of Note Date/Time of Note DATE: 03/18/17 TIME: 20:22 Assessment/Plan Assessment/Plan Chief Complaint/Hosp Course ID PROGRESS NOTE CURRENT ABX: =>Vanco GT + Levaquin IV 24H INTERVAL SUMMARY * Clinically stable, calm, resting comfortable, no fevers * No fevers, WBC elevated -> Stool (+)C>Diff EXAM GEN: VSS, NAD HEENT: Unremarkable NECK: supple CVS: RRR CHEST: Equal chest rise bilaterally without dyspnea on observation ABD: Soft, NT, EXT: warm SKIN: No rash, no diaphoresis ID ASSESSMENT 61 yo F admit with: 1. Acute complicated pancreatitis with pancreatic pseudocyst * status post CT-guided pigtail catheter placement ===> fluid cx neg 2. Left mastoiditis===> treated. 3. Chronic respiratory failure. 4. (+)C.Diff Colitis 5. History of urinary tract infection and pneumonia. 6. History of acute renal failure requiring hemodialysis, now off. (-)MRSA Nares CURRENT ABX: =>Vanco GT + Rifaximin #1 Levaquin IV ID RECOMMENDATIONS 1. DC Levaquin -> ABD fluid (-) 2. Continue Vanco via GT + add Rifaximin x 3 days . Problems: Consultation Date/Type/Reason Admit Date/Time Mar 11, 2017 at 02:03 Initial Consult Date 03/11/17 Type of Consultation: ID Exam/Review of Systems Vital Signs Vitals Vital Signs Date Time Temp Pulse Resp B/P Pulse Ox O2 Delivery O2 Flow Rate FiO2 03/18/17 19:48 90 20 98 Aerosol 5.0 28 03/18/17 16:33 98.1 117/70 Intake and Output 03/17/17 03/17/17 03/18/17 15:00 23:00 07:00 Intake Total 800 ml 800 ml Output Total 0 ml 1310 ml 650 ml Balance 0 ml -510 ml 150 ml Results Result Diagram: 03/18/17 1629 03/18/17 0939 Results 24 hrs Laboratory Tests Test 03/18/17 09:39 03/18/17 12:11 03/18/17 16:29 03/18/17 17:10 White Blood Count 38.1 #H 35.4 H Red Blood Count 4.27 3.90 L Hemoglobin 12.9 11.8 L Hematocrit 39.7 36.0 L Mean Corpuscular Volume 93.0 92.3 Mean Corpuscular Hemoglobin 30.2 30.3 Mean Corpuscular Hemoglobin Concent 32.5 32.8 Red Cell Distribution Width 15.6 H 15.6 H Platelet Count 427 H 434 H Mean Platelet Volume 8.9 9.1 Neutrophils % Segmented Neutrophils % (Manual) 88 H 89 H Band Neutrophils % (Manual) 1 1 Lymphocytes % Lymphocytes % (Manual) 8 L 8 L Monocytes % Monocytes % (Manual) 1 2 Eosinophils % Eosinophils % (Manual) 1 Basophils % Basophils % (Manual) 1 Nucleated Red Blood Cells % 0.0 0.0 Neutrophils # Neutrophils # (Manual) 33.6 H 31.6 H Band Neutrophils # 0.3 0.3 Absolute Lymphocytes (Manual) 3.0 H 2.8 Lymphocytes # 2.8 Monocytes # 0.7 Absolute Monocytes (Manual) 0.3 0.7 Eosinophils # Basophils # Basophils # (Manual) 0.3 H Nucleated Red Blood Cells # Platelet Estimate NORMAL Sodium Level 138 Potassium Level 4.2 Chloride Level 106 Carbon Dioxide Level 22 Anion Gap 14 Blood Urea Nitrogen 17 Creatinine 0.52 Glucose Level 109 Calcium Level 9.4 Phosphorus Level 5.1 H Magnesium Level 1.7 Bedside Glucose 138 132 Medications Medications Current Medications Lorazepam (Ativan) 1 mg Q4H PRN IV agitation Last administered on 03/11/17 06: 27; Admin Dose 1 MG; Start 03/11/17 at 03:00 Insulin Aspart (Novolog Insulin Pen) NOVOLOG *MODERATE* ALGORI... Q6 SC ; Start 03/11/17 at 06:00 Acetaminophen (Tylenol Liquid) 650 mg Q4H PRN GTB PAIN AND OR ELEVATED TEMP Last administered on 03/14/17 06:00; Admin Dose 650 MG; Start 03/11/17 at 03:00 Al Hydrox/Mg Hydrox/Simethicone (Mag-Al Plus) 30 ml Q4H PRN GTB GASTROINTESTINAL UPSET; Start 03/11/17 at 03:00 Clonazepam (Klonopin) 0.5 mg Q8 GTB Last administered on 03/18/17 14:01; Admin Dose 0.5 MG; Start 03/11/17 at 06:00 Clotrimazole (Lotrimin Cr) 1 applic AM TOP Last administered on 9/13/17at 09:16 ; Admin Dose 1 APPLIC; Start 03/11/17 at 09:00 Docusate Sodium (Colace Liquid Cup) 100 mg BID GTB Last administered on 20:30; Admin Dose 100 MG; Start 03/11/17 at 09:00 Epoetin Mina (Epogen (Esrd)) 1,000 units MoWeFr@17 SC Last administered on 03/13 18:01; Admin Dose 1,000 UNITS; Start 03/13/17 at 17:00 Miscellaneous Information 1 ea NOTE XX ; Start 03/11/17 at 03:15 Glucose (Glutose) 15 gm Q15M PRN PO DECREASED GLUCOSE; Start 03/11/17 at 03:15 Glucose (Glutose) 22.5 gm Q15M PRN PO DECREASED GLUCOSE; Start 03/11/17 at 03:15 Dextrose (D50w Syringe) 25 ml Q15M PRN IV DECREASED GLUCOSE; Start 03/11/17 at 03:15 Dextrose (D50w Syringe) 50 ml Q15M PRN IV DECREASED GLUCOSE; Start 03/11/17 at 03:15 Glucagon (Glucagen) 1 mg Q15M PRN IM DECREASED GLUCOSE; Start 03/11/17 at 03:15 Glucose (Glutose) 15 gm Q15M PRN BUCCAL DECREASED GLUCOSE; Start 03/11/17 at 03: 15 Acetaminophen/ Hydrocodone Bitart ([place] (5/325)) 1 tab Q6H PRN GTB pain Last administered on 03/13/17 03:03; Admin Dose 1 TAB; Start 03/11/17 at 03:30 Ondansetron HCl (Zofran Inj) 4 mg Q6H PRN IV NAUSEA AND/OR VOMITING; Start 03/11 at 03:30 Phenobarbital (Luminal) 64.8 mg BID PO Last administered on 03/18/17 09:35; Admin Dose 64.8 MG; Start 03/11/17 at 09:00 Phenytoin (Dilantin Susp Cup) 100 mg TID GTB Last administered on 03/18/17 12: 13; Admin Dose 100 MG; Start 03/11/17 at 09:00 Topiramate 200 mg 200 mg BID PO Last administered on 03/18/17 09:36; Admin Dose 200 MG; Start 03/11/17 at 09:00 Levetiracetam 100 ml @ 400 mls/hr Q12 IVPB Last administered on 03/18/17 09: 37; Admin Dose 400 MLS/HR; Start 03/11/17 at 09:00 Levofloxacin/ Dextrose (Levaquin 500mg/ D5W 100 ml (Pmx)) 100 ml @ 100 mls/hr Q24H IVPB Last administered on 03/17/17 04:15; Admin Dose 100 MLS/HR; Start at 03:30 Magnesium Hydroxide (Milk Of Mag) 30 ml DAILY PRN PO CONSTIPATION; Start at 03:30 Metoprolol Tartrate (Lopressor) 25 mg BID GTB Last administered on 03/18/17 09 :36; Admin Dose 25 MG; Start 03/11/17 at 09:00 Ondansetron HCl (Zofran Inj) 4 mg Q6H PRN IV NAUSEA AND/OR VOMITING; Start 03/11 at 03:30 Acetaminophen (Tylenol Supp) 650 mg Q6H PRN [place] PAIN LEVEL 1-3 OR FEVER; Start 03/11/17 at 03:30 Multivitamins Therapeutic (Theragran) 1 tab DAILY PO Last administered on 09:37; Admin Dose 1 TAB; Start 03/14/17 at 10:00 Zinc Sulfate (Zinc Sulfate) 220 mg DAILY PO Last administered on 03/18/17 09: 35; Admin Dose 220 MG; Start 03/14/17 at 10:00 Ascorbic Acid (Vitamin C) 500 mg DAILY PO Last administered on 03/18/17 09:37 ; Admin Dose 500 MG; Start 03/14/17 at 10:00 Amiodarone HCl (Cordarone) 100 mg DAILY GTB Last administered on 03/18/17 09: 38; Admin Dose 100 MG; Start 03/15/17 at 09:00 Vancomycin HCl (Vancomycin Oral Syringe) 250 mg Q6 PO Last administered on 03/18 18:17; Admin Dose 250 MG; Start 03/17/17 at 18:00 GAYATRI SALDIVAR NP Mar 18, 2017 20:30
[2017-03-18] MEDS: ACETAMINOPHEN 650MG/20.3ML CUP GTB PRN (20:58)
[2017-03-18] MEDS: RIFAXIMIN 200 MG TAB PO SCH (21:00)
[2017-03-19] VITALS (12 sets, daily range): BP systolic 98–120; BP diastolic 56–67; PULSE 109–127; RESP 15–30
[2017-03-19] MEDS: VANCOMYCIN HCL 250 MG/5ML POSYG PO SCH ×3 (00:29→12:00)
[2017-03-19] MEDS: INSULIN ASPART [NOVOLOG] 3 ML PEN SC SCH ×5 (00:31→23:51)
[2017-03-19] MEDS: LORAZEPAM 2 MG INJ IV PRN ×2 (01:27→23:49)
[2017-03-19] MEDS: clonAZEPAM 0.5 MG TAB GTB SCH ×3 (05:32→20:52)
[2017-03-19] MEDS: CLOTRIMAZOLE 1% 30 GM CR TOP SCH (09:00)
[2017-03-19] MEDS: ZINC SULFATE 220 MG CAP PO SCH (09:00)
[2017-03-19] MEDS: BALSAM PERU/CASTOR OIL 60 GM TUBE TOP SCH (09:00)
[2017-03-19 09:03] LABS: ABNORMAL IP MESSAGE 1; HEMATOCRIT 34.9 % (37.0-47.0); HEMOGLOBIN 11.5 g/dl (12.0-16.0); MEAN CORPUSCULAR HEMOGLOBIN 30.1 pg (29.0-33.0); MEAN CORPUSCULAR VOLUME 91.4 fl (82.0-101.0); MEAN PLATELET VOLUME 8.4 fl (7.4-10.4); PLATELET COUNT 475 10^3/UL (140-415); RED BLOOD COUNT 3.82 10^6/ul (4.20-5.40); RED CELL DISTRIBUTION WIDTH 15.9 % (11.5-14.5); WHITE BLOOD COUNT 54.3 10^3/ul (4.8-10.8)
[2017-03-19 09:09] LABS: POSITIVE DIFF @See below
[2017-03-19 09:31] LABS: CALCIUM 8.8 mg/dl (8.4-10.2); CREATININE 0.48 mg/dl (0.44-1.00); POTASSIUM 3.2 mmol/L (3.5-5.1)
[2017-03-19 09:51] LABS: ANISOCYTOSIS 1+ (0-0); MICROCYTOSIS 1+ (0-0); MONOCYTES % (M) 2 % (0-11); PLATELET ESTIMATE NORMAL
[2017-03-19] MEDS: PHENYTOIN (100 MG/4 ML) CUP GTB SCH ×3 (10:23→20:52)
[2017-03-19] MEDS: PHENOBARBITAL 32.4 MG TAB PO SCH ×2 (10:25→20:52)
[2017-03-19] MEDS: METOPROLOL 25 MG TAB GTB SCH ×2 (10:26→20:53)
[2017-03-19] MEDS: MULTIVITAMINS THERAPEUTIC TAB PO SCH (10:28)
[2017-03-19] MEDS: TOPIRAMATE 100 MG TAB PO SCH ×2 (10:28→20:54)
[2017-03-19] MEDS: ASCORBIC ACID 500 MG TAB PO SCH (10:28)
[2017-03-19] MEDS: AMIODARONE 200 MG TAB GTB SCH (10:29)
[2017-03-19] MEDS: RIFAXIMIN 200 MG TAB PO SCH ×3 (10:29→20:52)
[2017-03-19] MEDS: LEVETIRACETAM 1000 MG (PMX) 100 ML IVPB SCH ×2 (10:30→20:52)
[2017-03-19] MEDS: DOCUSATE SODIUM 10 MG/ML (10ML CUP) GTB SCH ×2 (10:32→20:48)
--- NOTE | 2017-03-19 12:49 | PN ---
Date/Time of Note Date/Time of Note DATE: 03/19/17 TIME: 12:47 Assessment/Plan VTE Prophylaxis VTE Prophylaxis Intervention: SCD's Lines/Catheters IV [facility]ter [facility]from [facility]): MIDLINE Urinary Cath still in place: Yes Reason Cath still needed: urinary retention Assessment/Plan Chief Complaint/Hosp Course Assessment/Plan: 61 yo F past medical history paroxysmal A. fib, with recent long hospital stay for gallstone pancreatitis c/b pseudocyst formation requiring drainage transferred from [place] as concern for change in characteristics of abd fluid collection. PLAN -general surgery following, follow-up recommendations, monitor drainage from both left abdomen drains. Given worsening leukocytosis and now C. difficile positive colitis, we will increase vancomycin to 500 mg p.o. every 6 hours, add Flagyl p.o. 3 times daily, also get abdominal imaging studies to reevaluate peripancreatic fluid reduction, there is concern there could be worsening infection or fluid collection occurring in this area now. - follow-up surgery, cardiology, ID recommendations -Monitor agitation symptoms. -cont vent weaning, pulm following, trach in place -cont TFs through PEG, consider video swallow study when patient gets transferred -cont ortiz for urinary retention -Monitor LFTs -Monitor heart rate on telemetry for now Problems: Subjective 24 Hr Interval Summary Free Text/Dictation Patient still with low-grade temperature. White blood cell count is higher today. Otherwise no acute events overnight, although still having significant amount of very loose stools, rectal tube in place. Exam/Review of Systems Vital Signs Vitals Vital Signs Date Time Temp Pulse Resp B/P Pulse Ox O2 Delivery O2 Flow Rate FiO2 03/19/17 12:19 109 03/19/17 12:13 98.8 30 112/62 98 03/19/17 01:33 5.0 28 03/18/17 19:48 Aerosol Intake and Output 03/18/17 03/18/17 03/19/17 15:00 23:00 07:00 Intake Total 700 ml 600 ml Output Total 0 ml 680 ml 465 ml Balance 0 ml 20 ml 135 ml Exam Lying in bed, opens eyes, presently in no acute distress Supple PEG in place abd drains with mild cloudy yellow-brownish output lungs clear nbo rashes Results Result Diagram: 03/19/17 0851 03/19/17 0851 Results 24 hrs Laboratory Tests Test 03/18/17 16:29 03/18/17 17:10 03/19/17 00:23 03/19/17 05:31 White Blood Count 35.4 H Red Blood Count 3.90 L Hemoglobin 11.8 L Hematocrit 36.0 L Mean Corpuscular Volume 92.3 Mean Corpuscular Hemoglobin 30.3 Mean Corpuscular Hemoglobin Concent 32.8 Red Cell Distribution Width 15.6 H Platelet Count 434 H Mean Platelet Volume 9.1 Neutrophils % Segmented Neutrophils % (Manual) 89 H Band Neutrophils % (Manual) 1 Lymphocytes % Lymphocytes % (Manual) 8 L Monocytes % Monocytes % (Manual) 2 Eosinophils % Basophils % Nucleated Red Blood Cells % 0.0 Neutrophils # Neutrophils # (Manual) 31.6 H Band Neutrophils # 0.3 Absolute Lymphocytes (Manual) 2.8 Lymphocytes # 2.8 Monocytes # 0.7 Absolute Monocytes (Manual) 0.7 Eosinophils # Basophils # Nucleated Red Blood Cells # Bedside Glucose 132 175 178 Test 03/19/17 08:51 White Blood Count 54.3 #H Red Blood Count 3.82 L Hemoglobin 11.5 L Hematocrit 34.9 L Mean Corpuscular Volume 91.4 Mean Corpuscular Hemoglobin 30.1 Mean Corpuscular Hemoglobin Concent 33.0 Red Cell Distribution Width 15.9 H Platelet Count 475 H Mean Platelet Volume 8.4 Neutrophils % Segmented Neutrophils % (Manual) 86 H Band Neutrophils % (Manual) 7 H Lymphocytes % Lymphocytes % (Manual) 5 L Monocytes % Monocytes % (Manual) 2 Eosinophils % Basophils % Nucleated Red Blood Cells % 0.0 Neutrophils # Neutrophils # (Manual) 48.8 H Band Neutrophils # 3.8 H Absolute Lymphocytes (Manual) 2.7 Lymphocytes # Monocytes # Absolute Monocytes (Manual) 1.0 H Eosinophils # Basophils # Nucleated Red Blood Cells # Pathologist Review (Hematology) Y Platelet Estimate NORMAL Anisocytosis 1+ Microcytosis 1+ Sodium Level 137 Potassium Level 3.2 L Chloride Level 110 Carbon Dioxide Level 19 L Anion Gap 11 Blood Urea Nitrogen 14 Creatinine 0.48 Glucose Level 148 Calcium Level 8.8 Medications Medications Current Medications Lorazepam (Ativan) 1 mg Q4H PRN IV agitation Last administered on 03/19/17t 01: 27; Admin Dose 1 MG; Start 03/11/17 at 03:00 Insulin Aspart (Novolog Insulin Pen) NOVOLOG *MODERATE* ALGORI... Q6 SC Last administered on 03/19/17 05:33; Admin Dose 2 UNIT; Start 03/11/17 at 06:00 Acetaminophen (Tylenol Liquid) 650 mg Q4H PRN GTB PAIN AND OR ELEVATED TEMP Last administered on 03/18/17 20:58; Admin Dose 650 MG; Start 03/11/17 at 03:00 Al Hydrox/Mg Hydrox/Simethicone (Mag-Al Plus) 30 ml Q4H PRN GTB GASTROINTESTINAL UPSET; Start 03/11/17 at 03:00 Clonazepam (Klonopin) 0.5 mg Q8 GTB Last administered on 03/19/17 05:32; Admin Dose 0.5 MG; Start 03/11/17 at 06:00 Clotrimazole (Lotrimin Cr) 1 applic AM TOP Last administered on 03/19/17 09:00 ; Admin Dose 1 APPLIC; Start 03/11/17 at 09:00 Docusate Sodium (Colace Liquid Cup) 100 mg BID GTB Last administered on 10:32; Admin Dose 100 MG; Start 03/11/17 at 09:00 Epoetin Mina (Epogen (Esrd)) 1,000 units MoWeFr@17 SC Last administered on 03/13 18:01; Admin Dose 1,000 UNITS; Start 03/13/17 at 17:00 Miscellaneous Information 1 ea NOTE XX ; Start 03/11/17 at 03:15 Glucose (Glutose) 15 gm Q15M PRN PO DECREASED GLUCOSE; Start 03/11/17 at 03:15 Glucose (Glutose) 22.5 gm Q15M PRN PO DECREASED GLUCOSE; Start 03/11/17 at 03:15 Dextrose (D50w Syringe) 25 ml Q15M PRN IV DECREASED GLUCOSE; Start 03/11/17 at 03:15 Dextrose (D50w Syringe) 50 ml Q15M PRN IV DECREASED GLUCOSE; Start 03/11/17 at 03:15 Glucagon (Glucagen) 1 mg Q15M PRN IM DECREASED GLUCOSE; Start 03/11/17 at 03:15 Glucose (Glutose) 15 gm Q15M PRN BUCCAL DECREASED GLUCOSE; Start 03/11/17 at 03: 15 Acetaminophen/ Hydrocodone Bitart ([place] (5/325)) 1 tab Q6H PRN GTB pain Last administered on 03/13/17 03:03; Admin Dose 1 TAB; Start 03/11/17 at 03:30 Ondansetron HCl (Zofran Inj) 4 mg Q6H PRN IV NAUSEA AND/OR VOMITING; Start 03/11 at 03:30 Phenobarbital (Luminal) 64.8 mg BID PO Last administered on 03/19/17 10:25; Admin Dose 64.8 MG; Start 03/11/17 at 09:00 Phenytoin (Dilantin Susp Cup) 100 mg TID GTB Last administered on 03/19/17 10: 23; Admin Dose 100 MG; Start 03/11/17 at 09:00 Topiramate 200 mg 200 mg BID PO Last administered on 03/19/17 10:28; Admin Dose 200 MG; Start 03/11/17 at 09:00 Levetiracetam (Keppra 1,000mg/ 100ml (Pmx)) 100 ml @ 400 mls/hr Q12 IVPB Last administered on 03/19/17 10:30; Admin Dose 400 MLS/HR; Start 03/11/17 at 09:00 Magnesium Hydroxide (Milk Of Mag) 30 ml DAILY PRN PO CONSTIPATION; Start at 03:30 Metoprolol Tartrate (Lopressor) 25 mg BID GTB Last administered on 03/19/17 10 :26; Admin Dose 25 MG; Start 03/11/17 at 09:00 Ondansetron HCl (Zofran Inj) 4 mg Q6H PRN IV NAUSEA AND/OR VOMITING; Start 03/11 at 03:30 Acetaminophen (Tylenol Supp) 650 mg Q6H PRN [place] PAIN LEVEL 1-3 OR FEVER; Start 03/11/17 at 03:30 Multivitamins Therapeutic (Theragran) 1 tab DAILY PO Last administered on 10:28; Admin Dose 1 TAB; Start 03/14/17 at 10:00 Zinc Sulfate (Zinc Sulfate) 220 mg DAILY PO Last administered on 03/19/17 09: 00; Admin Dose 220 MG; Start 03/14/17 at 10:00 Ascorbic Acid (Vitamin C) 500 mg DAILY PO Last administered on 03/19/17 10:28 ; Admin Dose 500 MG; Start 03/14/17 at 10:00 Amiodarone HCl (Cordarone) 100 mg DAILY GTB Last administered on 03/19/17 10: 29; Admin Dose 100 MG; Start 03/15/17 at 09:00 Rifaximin (Xifaxan) 200 mg TID PO Last administered on 03/19/17 10:29; Admin Dose 200 MG; Start 03/18/17 at 21:00; Stop 03/21/17 at 20:59 Vancomycin HCl (Vancomycin Oral Syringe) 500 mg Q6 PO ; Start 03/19/17 at 18:00 Metronidazole (Flagyl) 500 mg Q8 PO ; Start 03/19/17 at 14:00 CARYN ESCOTO Mar 19, 2017 12:49
[2017-03-19] MEDS ORDERED: metroNIDAZOLE 500 MG TAB PO SCH (14:00)
--- NOTE | 2017-03-19 14:13 | PN ---
Date/Time of Note Date/Time of Note DATE: 03/19/17 TIME: 14:09 Assessment/Plan Lines/Catheters IV Catheter Type (from Nrs): MIDLINE Matias in Place (from Nrs): Yes Assessment/Plan Chief Complaint/Hosp Course 1. Peripancreatic fluid collection: s/p drain upsizing with additional drain -continue drain to bulb suction -defer to HBS/GI -abx per sensitivity 2. Worsening leukocytosis with CDiff -aggressive abx (consider vanco enema, ? Deficid) -supportive 3. Hx. of respiratory failure with trach: comfortable on trach collar -supportive -pulmonary toilet 4. Dysphagia with PEG placement -cont tf with aspiration precautions 5. Thrombocytosis: likely 2/2 #1 -supportive -as above 6. Mastoiditis -cont abx Thank you, Problems: Subjective 24 Hr Interval Summary Multiple antibiotics started last night. Significant worsening leukocytosis. + CDiff. Tachycardia. Low grade fevers. No chills, sob, cp, cough, sz, rash, bloating, vomiting. Bowel function. Exam/Review of Systems Vital Signs Vitals Vital Signs Date Time Temp Pulse Resp B/P Pulse Ox O2 Delivery O2 Flow Rate FiO2 03/19/17 12:19 109 03/19/17 12:13 98.8 30 112/62 98 03/19/17 01:33 5.0 28 03/18/17 19:48 Aerosol Intake and Output 03/18/17 03/18/17 03/19/17 15:00 23:00 07:00 Intake Total 700 ml 600 ml Output Total 0 ml 680 ml 465 ml Balance 0 ml 20 ml 135 ml Exam Free Text/Dictation Constitutional: alert, tracks. No distress, No oriented Psych: nl mood/affect, no complaints, confused; intermittent agitation Head: atraumatic, normocephalic Eyes: nl lids, nl sclera ENMT: mucosa pink and moist Neck: non-tender, trach with trach collar Respiratory: normal air movement, No congested cough Cardiovascular: nl pulses, regular rate and rhythm Gastrointestinal: Tender to deep palpation,drains, soft, No distended Musculoskeletal: muscle weakness, nl extremities to inspection Extremities: normal pulses, No edema Neurological: confused, No nl mental status Skin: No rash or lesions Results Result Diagram: 03/19/1751 03/19/1751 NICK LUCERO MD Mar 19, 2017 14:13
--- NOTE | 2017-03-19 14:14 | CONS ---
Date/Time of Note Date/Time of Note DATE: 03/19/17 TIME: 14:01 Assessment/Plan Assessment/Plan Chief Complaint/Hosp Course ID PROGRESS NOTE CURRENT ABX: =>Vanco GT + Flagyl GT + Rifaximin => Change to FIDAXOMIN 200mg po BID today Levaquin IV -> DC'd 24H INTERVAL SUMMARY * Significant rise in leukocytosis today up to 54.3, C.Diff resulted yesterday PM, Levaquin DC'd, Vanco PO started, Rifaximin added + Flagyl PO * C.Diff ABX Rx discussed today w/Dr. Samir Kirkpatrick who inquires if DEFICID and Vanco Enema would be better approach -- Certainly that is a good approach, in particular for recurrent C.Diff. We also discussed the fact that the WBC this am is reflecting LATE PM C.Diff (+)Knowledge; hence late PM 03/18 ABX adjustment for C.Diff -- current ABX have not had time to demonstrate effectiveness likely reason why WBC elevated today. * No fevers, WBC elevated -> Stool (+)C>Diff [place]: 03/17/17-1530 Rcvd: [id number] Source: [facility] Sp Descrip: Microbiology C DIFFICILE DNA AMPLIFICATION Final CYTOTOXIGENIC C DIFFICILE POSITIVE (Ref Range Neg) * LAB 03/19/17 0851 03/19/17 0851 EXAM GEN: VSS, NAD HEENT: Unremarkable NECK: supple CVS: RRR CHEST: Equal chest rise bilaterally without dyspnea on observation ABD: Soft, NT, EXT: warm SKIN: No rash, no diaphoresis ID ASSESSMENT 61 yo F admit with: 1. Significant leukocytosis Acute complicated pancreatitis with pancreatic pseudocyst * status post CT-guided pigtail catheter placement ===> fluid cx neg 2. Left mastoiditis===> treated. 3. Chronic respiratory failure. 4. (+)C.Diff Colitis 5. History of urinary tract infection and pneumonia. 6. History of acute renal failure requiring hemodialysis, now off. (-)MRSA Nares CURRENT ABX: =>>Vanco 500 mg Q6H GT + Flagyl 500mg Q6 GT + Rifaximin => Change to FIDAXOMIN 200mg po BID today Levaquin IV ID RECOMMENDATIONS 1. ABX adjusted late PM yesterday w/ (+)significant rise in leukocytosis today up to 54.3, C.Diff resulted yesterday PM, Levaquin DC'd, Vanco PO started, Rifaximin added + Flagyl PO * C.Diff ABX Rx discussed today w/Dr. Samir Kirkpatrick who inquires if DEFICID and Vanco Enema would be better approach -- Certainly that is a good approach, in particular for recurrent C.Diff. We also discussed the fact that the WBC this am is reflecting LATE PM C.Diff (+)Knowledge; hence late PM 03/18 ABX adjustment for C.Diff -- current ABX have not had time to demonstrate effectiveness likely reason why WBC elevated today. 2. Let's proceed to alternative ABX Rx for C.Diff w/Deficid = Rationale: Recurrent C.Diff Colitis post ABX. * Change to FIDAXOMIN 200mg po BID today 3. Consider Vanco 500mg Liquid enema future if WBC remains elevated. . Problems: Consultation Date/Type/Reason Admit Date/Time Mar 11, 2017 at 02:03 Initial Consult Date 03/11/17 Type of Consultation: ID Exam/Review of Systems Vital Signs Vitals Vital Signs Date Time Temp Pulse Resp B/P Pulse Ox O2 Delivery O2 Flow Rate FiO2 03/19/17 12:19 109 03/19/17 12:13 98.8 30 112/62 98 03/19/17 01:33 5.0 28 03/18/17 19:48 Aerosol Intake and Output 03/18/17 03/18/17 03/19/17 15:00 23:00 07:00 Intake Total 700 ml 600 ml Output Total 0 ml 680 ml 465 ml Balance 0 ml 20 ml 135 ml Results Result Diagram: 03/19/17 0851 03/19/17 0851 Results 24 hrs Laboratory Tests Test 03/18/17 16:29 03/18/17 17:10 03/19/17 00:23 03/19/17 05:31 White Blood Count 35.4 H Red Blood Count 3.90 L Hemoglobin 11.8 L Hematocrit 36.0 L Mean Corpuscular Volume 92.3 Mean Corpuscular Hemoglobin 30.3 Mean Corpuscular Hemoglobin Concent 32.8 Red Cell Distribution Width 15.6 H Platelet Count 434 H Mean Platelet Volume 9.1 Neutrophils % Segmented Neutrophils % (Manual) 89 H Band Neutrophils % (Manual) 1 Lymphocytes % Lymphocytes % (Manual) 8 L Monocytes % Monocytes % (Manual) 2 Eosinophils % Basophils % Nucleated Red Blood Cells % 0.0 Neutrophils # Neutrophils # (Manual) 31.6 H Band Neutrophils # 0.3 Absolute Lymphocytes (Manual) 2.8 Lymphocytes # 2.8 Monocytes # 0.7 Absolute Monocytes (Manual) 0.7 Eosinophils # Basophils # Nucleated Red Blood Cells # Bedside Glucose 132 175 178 Test 03/19/17 08:51 03/19/17 13:32 White Blood Count 54.3 #H Red Blood Count 3.82 L Hemoglobin 11.5 L Hematocrit 34.9 L Mean Corpuscular Volume 91.4 Mean Corpuscular Hemoglobin 30.1 Mean Corpuscular Hemoglobin Concent 33.0 Red Cell Distribution Width 15.9 H Platelet Count 475 H Mean Platelet Volume 8.4 Neutrophils % Segmented Neutrophils % (Manual) 86 H Band Neutrophils % (Manual) 7 H Lymphocytes % Lymphocytes % (Manual) 5 L Monocytes % Monocytes % (Manual) 2 Eosinophils % Basophils % Nucleated Red Blood Cells % 0.0 Neutrophils # Neutrophils # (Manual) 48.8 H Band Neutrophils # 3.8 H Absolute Lymphocytes (Manual) 2.7 Lymphocytes # Monocytes # Absolute Monocytes (Manual) 1.0 H Eosinophils # Basophils # Nucleated Red Blood Cells # Pathologist Review (Hematology) Y Platelet Estimate NORMAL Anisocytosis 1+ Microcytosis 1+ Sodium Level 137 Potassium Level 3.2 L Chloride Level 110 Carbon Dioxide Level 19 L Anion Gap 11 Blood Urea Nitrogen 14 Creatinine 0.48 Glucose Level 148 Calcium Level 8.8 Bedside Glucose 145 Medications Medications Current Medications Lorazepam (Ativan) 1 mg Q4H PRN IV agitation Last administered on 03/19/17 01: 27; Admin Dose 1 MG; Start 03/11/17 at 03:00 Insulin Aspart (Novolog Insulin Pen) NOVOLOG *MODERATE* ALGORI... Q6 SC Last administered on 03/19/17 13:00; Admin Dose 2 UNIT; Start 03/11/17 at 06:00 Acetaminophen (Tylenol Liquid) 650 mg Q4H PRN GTB PAIN AND OR ELEVATED TEMP Last administered on 03/18/17 20:58; Admin Dose 650 MG; Start 03/11/17 at 03:00 Al Hydrox/Mg Hydrox/Simethicone (Mag-Al Plus) 30 ml Q4H PRN GTB GASTROINTESTINAL UPSET; Start 03/11/17 at 03:00 Clonazepam (Klonopin) 0.5 mg Q8 GTB Last administered on 03/19/17 13:40; Admin Dose 0.5 MG; Start 03/11/17 at 06:00 Clotrimazole (Lotrimin Cr) 1 applic AM TOP Last administered on 03/19/17 09:00 ; Admin Dose 1 APPLIC; Start 03/11/17 at 09:00 Docusate Sodium (Colace Liquid Cup) 100 mg BID GTB Last administered on 10:32; Admin Dose 100 MG; Start 03/11/17 at 09:00 Epoetin Mina (Epogen (Esrd)) 1,000 units MoWeFr@17 SC Last administered on 03/13 18:01; Admin Dose 1,000 UNITS; Start 03/13/17 at 17:00 Miscellaneous Information 1 ea NOTE XX ; Start 03/11/17 at 03:15 Glucose (Glutose) 15 gm Q15M PRN PO DECREASED GLUCOSE; Start 03/11/17 at 03:15 Glucose (Glutose) 22.5 gm Q15M PRN PO DECREASED GLUCOSE; Start 03/11/17 at 03:15 Dextrose (D50w Syringe) 25 ml Q15M PRN IV DECREASED GLUCOSE; Start 03/11/17 at 03:15 Dextrose (D50w Syringe) 50 ml Q15M PRN IV DECREASED GLUCOSE; Start 03/11/17 at 03:15 Glucagon (Glucagen) 1 mg Q15M PRN IM DECREASED GLUCOSE; Start 03/11/17 at 03:15 Glucose (Glutose) 15 gm Q15M PRN BUCCAL DECREASED GLUCOSE; Start 03/11/17 at 03: 15 Acetaminophen/ Hydrocodone Bitart ([place] (5/325)) 1 tab Q6H PRN GTB pain Last administered on 03/13/17 03:03; Admin Dose 1 TAB; Start 03/11/17 at 03:30 Ondansetron HCl (Zofran Inj) 4 mg Q6H PRN IV NAUSEA AND/OR VOMITING; Start 03/11 at 03:30 Phenobarbital (Luminal) 64.8 mg BID PO Last administered on 03/19/17 10:25; Admin Dose 64.8 MG; Start 03/11/17 at 09:00 Phenytoin (Dilantin Susp Cup) 100 mg TID GTB Last administered on 03/19/17 13: 40; Admin Dose 100 MG; Start 03/11/17 at 09:00 Topiramate 200 mg 200 mg BID PO Last administered on 03/19/17 10:28; Admin Dose 200 MG; Start 03/11/17 at 09:00 Levetiracetam (Keppra 1,000mg/ 100ml (Pmx)) 100 ml @ 400 mls/hr Q12 IVPB Last administered on 03/19/17 10:30; Admin Dose 400 MLS/HR; Start 03/11/17 at 09:00 Magnesium Hydroxide (Milk Of Mag) 30 ml DAILY PRN PO CONSTIPATION; Start at 03:30 Metoprolol Tartrate (Lopressor) 25 mg BID GTB Last administered on 03/19/17 10 :26; Admin Dose 25 MG; Start 03/11/17 at 09:00 Ondansetron HCl (Zofran Inj) 4 mg Q6H PRN IV NAUSEA AND/OR VOMITING; Start 03/11 at 03:30 Acetaminophen (Tylenol Supp) 650 mg Q6H PRN [place] PAIN LEVEL 1-3 OR FEVER; Start 03/11/17 at 03:30 Multivitamins Therapeutic (Theragran) 1 tab DAILY PO Last administered on 10:28; Admin Dose 1 TAB; Start 03/14/17 at 10:00 Zinc Sulfate (Zinc Sulfate) 220 mg DAILY PO Last administered on 03/19/17 09: 00; Admin Dose 220 MG; Start 03/14/17 at 10:00 Ascorbic Acid (Vitamin C) 500 mg DAILY PO Last administered on 03/19/17 10:28 ; Admin Dose 500 MG; Start 03/14/17 at 10:00 Amiodarone HCl (Cordarone) 100 mg DAILY GTB Last administered on 03/19/17 10: 29; Admin Dose 100 MG; Start 03/15/17 at 09:00 Rifaximin (Xifaxan) 200 mg TID PO Last administered on 03/19/17 13:40; Admin Dose 200 MG; Start 03/18/17 at 21:00; Stop 03/21/17 at 20:59 Vancomycin HCl (Vancomycin Oral Syringe) 500 mg Q6 PO ; Start 03/19/17 at 18:00 Metronidazole (Flagyl) 500 mg Q8 PO ; Start 03/19/17 at 14:00 GAYATRI SALDIVAR NP Mar 19, 2017 14:12
[2017-03-19] MEDS: FIDAXOMICIN 200 MG TABLET PO SCH ×2 (15:30→23:49)
[2017-03-19] MEDS ORDERED: VANCOMYCIN HCL 250 MG/5ML POSYG PO SCH (18:00)
--- NOTE | 2017-03-19 18:57 | CONS ---
Date/Time of Note Date/Time of Note DATE: 03/19/17 TIME: 18:56 Consult Date/Type/Reason Admit Date/Time Mar 11, 2017 at 02:03 Initial Consult Date 03/11/17 Type of Consultation: Pulm Subjective No events. Objective Vital Signs Date Time Temp Pulse Resp B/P Pulse Ox O2 Delivery O2 Flow Rate FiO2 03/19/17 16:45 125 22 98 Aerosol 5.0 28 T Tube 03/19/17 16:24 97.7 108/67 Intake and Output 03/18/17 03/18/17 03/19/17 15:00 23:00 07:00 Intake Total 700 ml 600 ml Output Total 0 ml 680 ml 465 ml Balance 0 ml 20 ml 135 ml Exam HEENT: Neck supple; no JVD; no LAD; trach site clear CVS: RRR, S1 and S2 CHEST: Clear ABD: Soft, NT, + BS EXT: No c/c/e Results/Medications Result Diagram: 03/19/17 0851 03/19/17 0851 Results 24 hrs Laboratory Tests Test 03/19/17 00:23 03/19/17 05:31 03/19/17 08:51 03/19/17 13:32 Bedside Glucose 175 178 145 White Blood Count 54.3 #H Red Blood Count 3.82 L Hemoglobin 11.5 L Hematocrit 34.9 L Mean Corpuscular Volume 91.4 Mean Corpuscular Hemoglobin 30.1 Mean Corpuscular Hemoglobin Concent 33.0 Red Cell Distribution Width 15.9 H Platelet Count 475 H Mean Platelet Volume 8.4 Neutrophils % Segmented Neutrophils % (Manual) 86 H Band Neutrophils % (Manual) 7 H Lymphocytes % Lymphocytes % (Manual) 5 L Monocytes % Monocytes % (Manual) 2 Eosinophils % Basophils % Nucleated Red Blood Cells % 0.0 Neutrophils # Neutrophils # (Manual) 48.8 H Band Neutrophils # 3.8 H Absolute Lymphocytes (Manual) 2.7 Lymphocytes # Monocytes # Absolute Monocytes (Manual) 1.0 H Eosinophils # Basophils # Nucleated Red Blood Cells # Pathologist Review (Hematology) Y Platelet Estimate NORMAL Anisocytosis 1+ Microcytosis 1+ Sodium Level 137 Potassium Level 3.2 L Chloride Level 110 Carbon Dioxide Level 19 L Anion Gap 11 Blood Urea Nitrogen 14 Creatinine 0.48 Glucose Level 148 Calcium Level 8.8 Test 03/19/17 18:01 03/19/17 18:10 Bedside Glucose 113 131 Medications Current Medications Lorazepam (Ativan) 1 mg Q4H PRN IV agitation Last administered on 03/19/17 01: 27; Admin Dose 1 MG; Start 03/11/17 at 03:00 Insulin Aspart (Novolog Insulin Pen) NOVOLOG *MODERATE* ALGORI... Q6 SC Last administered on 03/19/17 13:00; Admin Dose 2 UNIT; Start 03/11/17 at 06:00 Acetaminophen (Tylenol Liquid) 650 mg Q4H PRN GTB PAIN AND OR ELEVATED TEMP Last administered on 03/18/17 20:58; Admin Dose 650 MG; Start 03/11/17 at 03:00 Al Hydrox/Mg Hydrox/Simethicone (Mag-Al Plus) 30 ml Q4H PRN GTB GASTROINTESTINAL UPSET; Start 03/11/17 at 03:00 Clonazepam (Klonopin) 0.5 mg Q8 GTB Last administered on 03/19/17 13:40; Admin Dose 0.5 MG; Start 03/11/17 at 06:00 Clotrimazole (Lotrimin Cr) 1 applic AM TOP Last administered on 03/19/17 09:00 ; Admin Dose 1 APPLIC; Start 03/11/17 at 09:00 Docusate Sodium (Colace Liquid Cup) 100 mg BID GTB Last administered on 10:32; Admin Dose 100 MG; Start 03/11/17 at 09:00 Epoetin Mina (Epogen (Esrd)) 1,000 units MoWeFr@17 SC Last administered on 03/13 18:01; Admin Dose 1,000 UNITS; Start 03/13/17 at 17:00 Miscellaneous Information 1 ea NOTE XX ; Start 03/11/17 at 03:15 Glucose (Glutose) 15 gm Q15M PRN PO DECREASED GLUCOSE; Start 03/11/17 at 03:15 Glucose (Glutose) 22.5 gm Q15M PRN PO DECREASED GLUCOSE; Start 03/11/17 at 03:15 Dextrose (D50w Syringe) 25 ml Q15M PRN IV DECREASED GLUCOSE; Start 03/11/17 at 03:15 Dextrose (D50w Syringe) 50 ml Q15M PRN IV DECREASED GLUCOSE; Start 03/11/17 at 03:15 Glucagon (Glucagen) 1 mg Q15M PRN IM DECREASED GLUCOSE; Start 03/11/17 at 03:15 Glucose (Glutose) 15 gm Q15M PRN BUCCAL DECREASED GLUCOSE; Start 03/11/17 at 03: 15 Acetaminophen/ Hydrocodone Bitart ([place] (5/325)) 1 tab Q6H PRN GTB pain Last administered on 03/13/17 03:03; Admin Dose 1 TAB; Start 03/11/17 at 03:30 Ondansetron HCl (Zofran Inj) 4 mg Q6H PRN IV NAUSEA AND/OR VOMITING; Start 03/11 at 03:30 Phenobarbital (Luminal) 64.8 mg BID PO Last administered on 03/19/17 10:25; Admin Dose 64.8 MG; Start 03/11/17 at 09:00 Phenytoin (Dilantin Susp Cup) 100 mg TID GTB Last administered on 03/19/17 13: 40; Admin Dose 100 MG; Start 03/11/17 at 09:00 Topiramate 200 mg 200 mg BID PO Last administered on 03/19/17 10:28; Admin Dose 200 MG; Start 03/11/17 at 09:00 Levetiracetam (Keppra 1,000mg/ 100ml (Pmx)) 100 ml @ 400 mls/hr Q12 IVPB Last administered on 03/19/17 10:30; Admin Dose 400 MLS/HR; Start 03/11/17 at 09:00 Magnesium Hydroxide (Milk Of Mag) 30 ml DAILY PRN PO CONSTIPATION; Start at 03:30 Metoprolol Tartrate (Lopressor) 25 mg BID GTB Last administered on 03/19/17 10 :26; Admin Dose 25 MG; Start 03/11/17 at 09:00 Ondansetron HCl (Zofran Inj) 4 mg Q6H PRN IV NAUSEA AND/OR VOMITING; Start 03/11 at 03:30 Acetaminophen (Tylenol Supp) 650 mg Q6H PRN [place] PAIN LEVEL 1-3 OR FEVER; Start 03/11/17 at 03:30 Multivitamins Therapeutic (Theragran) 1 tab DAILY PO Last administered on 10:28; Admin Dose 1 TAB; Start 03/14/17 at 10:00 Zinc Sulfate (Zinc Sulfate) 220 mg DAILY PO Last administered on 03/19/17 09: 00; Admin Dose 220 MG; Start 03/14/17 at 10:00 Ascorbic Acid (Vitamin C) 500 mg DAILY PO Last administered on 03/19/17 10:28 ; Admin Dose 500 MG; Start 03/14/17 at 10:00 Amiodarone HCl (Cordarone) 100 mg DAILY GTB Last administered on 03/19/17 10: 29; Admin Dose 100 MG; Start 03/15/17 at 09:00 Rifaximin (Xifaxan) 200 mg TID PO Last administered on 03/19/17 13:40; Admin Dose 200 MG; Start 03/18/17 at 21:00; Stop 03/21/17 at 20:59 Fidaxomicin (Dificid) 200 mg BID PO Last administered on 03/19/17 15:30; Admin Dose 200 MG; Start 03/19/17 at 15:30 Assessment/Plan Additional Assessment/Plan IMPRESSION: 1. Persistent peripancreatic fluid collection 2. Chronic respiratory failure, now with tracheostomy 3. Dysphagia with G-tube 4. Paroxysmal atrial fibrillation 5. C.Diff RECS: 1. Continue T-piece 2. BD's. CPT 3. Abx per STEPHAN NUNN MD Mar 19, 2017 18:57
[2017-03-20] VITALS (11 sets, daily range): BP systolic 104–125; BP diastolic 59–74; PULSE 104–123; RESP 17–22
[2017-03-20] MEDS: clonAZEPAM 0.5 MG TAB GTB SCH ×3 (05:40→21:04)
[2017-03-20] MEDS: INSULIN ASPART [NOVOLOG] 3 ML PEN SC SCH ×3 (05:41→17:56)
[2017-03-20 08:19] LABS: ABNORMAL IP MESSAGE 1; BASOPHIL # 0.1 10^3/ul (0.0-0.1); BASOPHILS % 0.3 % (0.0-2.0); HEMATOCRIT 32.7 % (37.0-47.0); HEMOGLOBIN 10.8 g/dl (12.0-16.0); LYMPHOCYTES # 2.1 10^3/ul (0.8-2.9); LYMPHOCYTES % 4.7 % (15.0-51.0); MEAN CORPUSCULAR HEMOGLOBIN 30.9 pg (29.0-33.0); MEAN CORPUSCULAR VOLUME 93.4 fl (82.0-101.0); MEAN PLATELET VOLUME 9.2 fl (7.4-10.4); MONOCYTE # 2.3 10^3/ul (0.3-0.9); NEUTROPHIL # 39.8 10^3/ul (1.6-7.5); NEUTROPHILS % 87.9 % (39.0-77.0); PLATELET COUNT 443 10^3/UL (140-415); WHITE BLOOD COUNT 45.2 10^3/ul (4.8-10.8)
[2017-03-20 08:24] LABS: POSITIVE DIFF @See below
[2017-03-20 08:45] LABS: CALCIUM 8.7 mg/dl (8.4-10.2); CREATININE 0.5 mg/dl (0.44-1.00)
[2017-03-20 08:49] LABS: POTASSIUM 2.8 mmol/L (3.5-5.1)
[2017-03-20] MEDS: CLOTRIMAZOLE 1% 30 GM CR TOP SCH (09:09)
[2017-03-20] MEDS: BALSAM PERU/CASTOR OIL 60 GM TUBE TOP SCH (09:09)
[2017-03-20] MEDS: DOCUSATE SODIUM 10 MG/ML (10ML CUP) GTB SCH ×2 (09:16→20:51)
[2017-03-20] MEDS: PHENOBARBITAL 32.4 MG TAB PO SCH ×2 (09:17→20:59)
[2017-03-20] MEDS: PHENYTOIN (100 MG/4 ML) CUP GTB SCH ×3 (09:17→20:52)
[2017-03-20] MEDS: RIFAXIMIN 200 MG TAB PO SCH ×3 (09:17→20:58)
[2017-03-20] MEDS: MULTIVITAMINS THERAPEUTIC TAB PO SCH (09:17)
[2017-03-20] MEDS: ZINC SULFATE 220 MG CAP PO SCH (09:17)
[2017-03-20] MEDS: ASCORBIC ACID 500 MG TAB PO SCH (09:17)
[2017-03-20] MEDS: TOPIRAMATE 100 MG TAB PO SCH ×2 (09:17→20:59)
[2017-03-20] MEDS: METOPROLOL 25 MG TAB GTB SCH ×2 (09:18→20:58)
[2017-03-20] MEDS: AMIODARONE 200 MG TAB GTB SCH (09:18)
[2017-03-20] MEDS: LEVETIRACETAM 1000 MG (PMX) 100 ML IVPB SCH ×2 (09:20→21:04)
--- NOTE | 2017-03-20 11:09 | PN ---
DATE: 03/20/2017 SUBJECTIVE DATA: The patient alert. She is intubated, but she has a tracheostomy. The patient a has pseudocyst of the pancreas, which is being drained by 2 drains. In the past 24 hours, the drainage from both the drains is about 35 mL and she has a significantly elevated white count, around 40,000-50,000. Stool is positive for Clostridium difficile toxin. She is on multiple medications. Vancomycin, Roximycin, and Flagyl and also rifaximin. OBJECTIVE DATA: Abdomen is soft. She is alert. Both drains are draining some fluid from the pancreatic pseudocyst. Stool also being drained through the rectal tube. CLINICAL IMPRESSION: 1. Pseudocyst of the pancreas which is infected, which is being drained through the percutaneous tube drainage, 2 of them are functioning. The cultures from the pseudocyst has been negative on the 03/14/2017. 2. She also has Clostridium difficile colitis. PLAN: Continue present management and antibiotics as per the infectious disease php consultant. Dictated By: Chaitanya Green MD /[email or web address] /Document#: [id number]
[2017-03-20] MEDS ORDERED: POTASSIUM CHLORIDE 250 ML IVPB ONE (11:30)
[2017-03-20] MEDS ORDERED: POTASSIUM CHLORIDE 20 MEQ POWDER FOR ORAL SOLN GTB ONE (11:30)
[2017-03-20] MEDS: FIDAXOMICIN 200 MG TABLET PO SCH ×2 (12:17→21:04)
--- NOTE | 2017-03-20 14:16 | PN ---
Date/Time of Note Date/Time of Note DATE: 03/20/17 TIME: 14:12 Assessment/Plan VTE Prophylaxis VTE Prophylaxis Intervention: SCD's Lines/Catheters IV Catheter Type (from Nrs): MIDLINE IV ACCESS Urinary Cath still in place: Yes Reason Cath still needed: urinary retention Assessment/Plan Assessment/Plan 61 yo F past medical history paroxysmal A. fib, with recent long hospital stay for gallstone pancreatitis c/b pseudocyst formation requiring drainage transferred from [place] as concern for change in characteristics of abd fluid collection. Current H stay complicated by CDiff. PLAN #CDiff: diagnosed 03.17. PO vanc changed to Dificid 03.19. WBCs now improving, cont rectal tube #abd fluid collection (peripancreatic): sp drainage catheter readjustement 03.14 , gen surg following, #chronic respiratory failure sp trach: pulm following #dysphagia: cont TFs #?seizure d/o: cont AED #urinary retention: cont ortiz CM note reviewed. [place] requesting WBCs be <20 prior to transfer back. Leukocytosis is 2/2 severe CDiff and should continue improve with continued treatment. Subjective 24 Hr Interval Summary Free Text/Dictation No fevers x 24 hours. Still with diarrhea Exam/Review of Systems Vital Signs Vitals Vital Signs Date Time Temp Pulse Resp B/P Pulse Ox O2 Delivery O2 Flow Rate FiO2 03/20/17 13:52 99 5.0 28 03/20/17 13:52 112 20 Aerosol 03/20/17 12:18 98.1 125/74 Intake and Output 03/19/17 03/19/17 03/20/17 15:00 23:00 07:00 Intake Total 800 ml 720 ml Output Total 15 ml 475 ml 470 ml Balance -15 ml 325 ml 250 ml Exam nad, trach site c/d/i 2 abd drains with minimal output PEG c/d/i no rashes no edema Results Result Diagram: 03/20/17 0653 03/20/17 0653 Results 24 hrs Laboratory Tests Test 03/19/17 18:01 03/19/17 18:10 03/19/17 23:47 03/20/17 05:39 Bedside Glucose 113 131 153 164 Test 03/20/17 06:53 03/20/17 12:19 White Blood Count 45.2 H Red Blood Count 3.50 L Hemoglobin 10.8 L Hematocrit 32.7 L Mean Corpuscular Volume 93.4 Mean Corpuscular Hemoglobin 30.9 Mean Corpuscular Hemoglobin Concent 33.0 Red Cell Distribution Width 16.0 H Platelet Count 443 H Mean Platelet Volume 9.2 Neutrophils % 87.9 H Lymphocytes % 4.7 L Monocytes % 5.0 Eosinophils % 0.0 Basophils % 0.3 Nucleated Red Blood Cells % 0.0 Neutrophils # 39.8 H Lymphocytes # 2.1 Monocytes # 2.3 H Eosinophils # 0.0 Basophils # 0.1 Nucleated Red Blood Cells # 0.0 Sodium Level 140 Potassium Level 2.8 *L Chloride Level 111 H Carbon Dioxide Level 20 L Anion Gap 12 Blood Urea Nitrogen 14 Creatinine 0.50 Glucose Level 140 Calcium Level 8.7 Bedside Glucose 147 Medications Medications Current Medications Lorazepam (Ativan) 1 mg Q4H PRN IV agitation Last administered on 03/19/17 23: 49; Admin Dose 1 MG; Start 03/11/17 at 03:00 Insulin Aspart (Novolog Insulin Pen) NOVOLOG *MODERATE* ALGORI... Q6 SC Last administered on 03/20/17 12:21; Admin Dose 2 UNIT; Start 03/11/17 at 06:00 Acetaminophen (Tylenol Liquid) 650 mg Q4H PRN GTB PAIN AND OR ELEVATED TEMP Last administered on 03/18/17 20:58; Admin Dose 650 MG; Start 03/11/17 at 03:00 Al Hydrox/Mg Hydrox/Simethicone (Mag-Al Plus) 30 ml Q4H PRN GTB GASTROINTESTINAL UPSET; Start 03/11/17 at 03:00 Clonazepam (Klonopin) 0.5 mg Q8 GTB Last administered on 03/20/17 05:40; Admin Dose 0.5 MG; Start 03/11/17 at 06:00 Clotrimazole (Lotrimin Cr) 1 applic AM TOP Last administered on 03/20/17 09:09 ; Admin Dose 1 APPLIC; Start 03/11/17 at 09:00 Docusate Sodium (Colace Liquid Cup) 100 mg BID GTB Last administered on 09:16; Admin Dose 100 MG; Start 03/11/17 at 09:00 Epoetin Mina (Epogen (Esrd)) 1,000 units MoWeFr@17 SC Last administered on 03/13 18:01; Admin Dose 1,000 UNITS; Start 03/13/17 at 17:00 Miscellaneous Information 1 ea NOTE XX ; Start 03/11/17 at 03:15 Glucose (Glutose) 15 gm Q15M PRN PO DECREASED GLUCOSE; Start 03/11/17 at 03:15 Glucose (Glutose) 22.5 gm Q15M PRN PO DECREASED GLUCOSE; Start 03/11/17 at 03:15 Dextrose (D50w Syringe) 25 ml Q15M PRN IV DECREASED GLUCOSE; Start 03/11/17 at 03:15 Dextrose (D50w Syringe) 50 ml Q15M PRN IV DECREASED GLUCOSE; Start 03/11/17 at 03:15 Glucagon (Glucagen) 1 mg Q15M PRN IM DECREASED GLUCOSE; Start 03/11/17 at 03:15 Glucose (Glutose) 15 gm Q15M PRN BUCCAL DECREASED GLUCOSE; Start 03/11/17 at 03: 15 Acetaminophen/ Hydrocodone Bitart ([place] (5/325)) 1 tab Q6H PRN GTB pain Last administered on 03/13/17 03:03; Admin Dose 1 TAB; Start 03/11/17 at 03:30 Ondansetron HCl (Zofran Inj) 4 mg Q6H PRN IV NAUSEA AND/OR VOMITING; Start 03/11 at 03:30 Phenobarbital (Luminal) 64.8 mg BID PO Last administered on 03/20/17 09:17; Admin Dose 64.8 MG; Start 03/11/17 at 09:00 Phenytoin (Dilantin Susp Cup) 100 mg TID GTB Last administered on 03/20/17 12: 17; Admin Dose 100 MG; Start 03/11/17 at 09:00 Topiramate 200 mg 200 mg BID PO Last administered on 03/20/17 09:17; Admin Dose 200 MG; Start 03/11/17 at 09:00 Levetiracetam (Keppra 1,000mg/ 100ml (Pmx)) 100 ml @ 400 mls/hr Q12 IVPB Last administered on 03/20/17 09:20; Admin Dose 400 MLS/HR; Start 03/11/17 at 09:00 Magnesium Hydroxide (Milk Of Mag) 30 ml DAILY PRN PO CONSTIPATION; Start at 03:30 Metoprolol Tartrate (Lopressor) 25 mg BID GTB Last administered on 03/20/17 09 :18; Admin Dose 25 MG; Start 03/11/17 at 09:00 Ondansetron HCl (Zofran Inj) 4 mg Q6H PRN IV NAUSEA AND/OR VOMITING; Start 03/11 at 03:30 Acetaminophen (Tylenol Supp) 650 mg Q6H PRN [place] PAIN LEVEL 1-3 OR FEVER; Start 03/11/17 at 03:30 Multivitamins Therapeutic (Theragran) 1 tab DAILY PO Last administered on 09:17; Admin Dose 1 TAB; Start 03/14/17 at 10:00 Zinc Sulfate (Zinc Sulfate) 220 mg DAILY PO Last administered on 03/20/17 09: 17; Admin Dose 220 MG; Start 03/14/17 at 10:00 Ascorbic Acid (Vitamin C) 500 mg DAILY PO Last administered on 03/20/17 09:17 ; Admin Dose 500 MG; Start 03/14/17 at 10:00 Amiodarone HCl (Cordarone) 100 mg DAILY GTB Last administered on 03/20/17 09: 18; Admin Dose 100 MG; Start 03/15/17 at 09:00 Rifaximin (Xifaxan) 200 mg TID PO Last administered on 03/20/17 12:17; Admin Dose 200 MG; Start 03/18/17 at 21:00; Stop 03/21/17 at 20:59 Fidaxomicin 200 mg 200 mg BID PO Last administered on 03/20/17 12:17; Admin Dose 200 MG; Start 03/19/17 at 15:30 Potassium Chloride (KCl 40 MEQ/250 ML NS) 250 ml @ 62.5 mls/hr ONCE ONCE IVPB Last administered on 03/20/17 12:16; Admin Dose 62.5 MLS/HR; Start 03/20/17 at 11:30; Stop 03/20/17 at 15:29 OMAIRA OLIVERA MD Mar 20, 2017 14:16
--- NOTE | 2017-03-20 14:48 | PN ---
Date/Time of Note Date/Time of Note DATE: 03/20/17 TIME: 14:40 Assessment/Plan Lines/Catheters IV Catheter Type (from Nrs): MIDLINE IV ACCESS Matias in Place (from Nrs): Yes Assessment/Plan Chief Complaint/Hosp Course 1. Peripancreatic fluid collection: s/p drain upsizing with additional drain; min drainage -continue drain to bulb suction -defer to HBS/GI -abx per sensitivity 2. Leukocytosis with CDiff: improving -aggressive abx (consider vanco enema, ? Deficid) -supportive 3. Hx. of respiratory failure with trach: comfortable on trach collar -supportive -pulmonary toilet 4. Dysphagia with PEG placement -cont tf with aspiration precautions 5. Thrombocytosis: likely 2/2 #1 -supportive -as above 6. Mastoiditis -cont abx Thank you. Patient seen and examined in collaboration with Dr. Vladimir Kirkpatrick. Problems: Subjective 24 Hr Interval Summary Continues to large rectal tube output. No c/o pain, sob, congested cough. Appears comfortable on trach mist. No fevers, chills, n/v. tolerating tf. Min drainage from drains x2. Exam/Review of Systems Vital Signs Vitals Vital Signs Date Time Temp Pulse Resp B/P Pulse Ox O2 Delivery O2 Flow Rate FiO2 03/20/17 13:52 99 5.0 28 03/20/17 13:52 112 20 Aerosol 03/20/17 12:18 98.1 125/74 Intake and Output 03/19/17 03/19/17 03/20/17 15:00 23:00 07:00 Intake Total 800 ml 720 ml Output Total 15 ml 475 ml 470 ml Balance -15 ml 325 ml 250 ml Exam Free Text/Dictation Constitutional: alert, tracks. No distress, No oriented Psych: nl mood/affect, no complaints, confused; intermittent agitation Head: atraumatic, normocephalic Eyes: nl lids, nl sclera ENMT: mucosa pink and moist Neck: non-tender, trach with trach collar Respiratory: normal air movement, No congested cough Cardiovascular: nl pulses, regular rate and rhythm Gastrointestinal: drains x 2 w min drainage, soft, No distended; rectal tube with large output Musculoskeletal: muscle weakness, nl extremities to inspection Extremities: normal pulses, No edema Neurological: confused, No nl mental status Skin: No rash or lesions Results Result Diagram: 03/20/17 0653 03/20/17 0653 JOSE LUIS ORO NP Mar 20, 2017 14:48
--- NOTE | 2017-03-20 15:18 | CONS ---
Date/Time of Note Date/Time of Note DATE: 03/20/17 TIME: 15:17 Assessment/Plan Assessment/Plan Additional Assessment/Plan History of pancreatitis with abdominal fluid collection Paroxysmal atrial fibrillation, currently sinus rhythm Respiratory failure Preserved ejection fraction Hypertension -Blood pressure trend remains stable. Continue amiodarone and beta-linda as heart rate permits. Patient with severe hypokalemia, being supplemented, would order magnesium as well to assist with potassium absorption Consultation Date/Type/Reason Admit Date/Time Mar 11, 2017 at 02:03 Initial Consult Date 03/11/17 Type of Consultation: cv 24 HR Interval Summary Free Text/Dictation Patient seen and examined, denies shortness of breath or palpitations Exam/Review of Systems Vital Signs Vitals Vital Signs Date Time Temp Pulse Resp B/P Pulse Ox O2 Delivery O2 Flow Rate FiO2 03/20/17 13:52 99 5.0 28 03/20/17 13:52 112 20 Aerosol 03/20/17 12:18 98.1 125/74 Intake and Output 03/19/17 03/19/17 03/20/17 15:00 23:00 07:00 Intake Total 800 ml 720 ml Output Total 15 ml 475 ml 470 ml Balance -15 ml 325 ml 250 ml Exam Following commands, no apparent distress Constitutional: alert Head: normocephalic Respiratory: other (Coarse breath sounds bilaterally, no wheezing) Cardiovascular: other (S1-S2 heard), regular rate and rhythm Gastrointestinal: bowel sounds, non-tender, soft Extremities: edema (Trace) Results Result Diagram: 03/20/17 0653 03/20/17 0653 Results 24 hrs Laboratory Tests Test 03/19/17 18:01 03/19/17 18:10 03/19/17 23:47 03/20/17 05:39 Bedside Glucose 113 131 153 164 Test 03/20/17 06:53 03/20/17 12:19 White Blood Count 45.2 H Red Blood Count 3.50 L Hemoglobin 10.8 L Hematocrit 32.7 L Mean Corpuscular Volume 93.4 Mean Corpuscular Hemoglobin 30.9 Mean Corpuscular Hemoglobin Concent 33.0 Red Cell Distribution Width 16.0 H Platelet Count 443 H Mean Platelet Volume 9.2 Neutrophils % 87.9 H Lymphocytes % 4.7 L Monocytes % 5.0 Eosinophils % 0.0 Basophils % 0.3 Nucleated Red Blood Cells % 0.0 Neutrophils # 39.8 H Lymphocytes # 2.1 Monocytes # 2.3 H Eosinophils # 0.0 Basophils # 0.1 Nucleated Red Blood Cells # 0.0 Sodium Level 140 Potassium Level 2.8 *L Chloride Level 111 H Carbon Dioxide Level 20 L Anion Gap 12 Blood Urea Nitrogen 14 Creatinine 0.50 Glucose Level 140 Calcium Level 8.7 Bedside Glucose 147 Medications Medications Current Medications Insulin Aspart (Novolog Insulin Pen) NOVOLOG *MODERATE* ALGORI... Q6 SC Last administered on 03/20/17 12:21; Admin Dose 2 UNIT; Start 03/11/17 at 06:00 Acetaminophen (Tylenol Liquid) 650 mg Q4H PRN GTB PAIN AND OR ELEVATED TEMP Last administered on 03/18/17 20:58; Admin Dose 650 MG; Start 03/11/17 at 03:00 Al Hydrox/Mg Hydrox/Simethicone (Mag-Al Plus) 30 ml Q4H PRN GTB GASTROINTESTINAL UPSET; Start 03/11/17 at 03:00 Clonazepam (Klonopin) 0.5 mg Q8 GTB Last administered on 03/20/17 14:48; Admin Dose 0.5 MG; Start 03/11/17 at 06:00 Clotrimazole (Lotrimin Cr) 1 applic AM TOP Last administered on 03/20/17 09:09 ; Admin Dose 1 APPLIC; Start 03/11/17 at 09:00 Docusate Sodium (Colace Liquid Cup) 100 mg BID GTB Last administered on 09:16; Admin Dose 100 MG; Start 03/11/17 at 09:00 Epoetin Mina (Epogen (Esrd)) 1,000 units MoWeFr@17 SC Last administered on 03/13 18:01; Admin Dose 1,000 UNITS; Start 03/13/17 at 17:00 Miscellaneous Information 1 ea NOTE XX ; Start 03/11/17 at 03:15 Glucose (Glutose) 15 gm Q15M PRN PO DECREASED GLUCOSE; Start 03/11/17 at 03:15 Glucose (Glutose) 22.5 gm Q15M PRN PO DECREASED GLUCOSE; Start 03/11/17 at 03:15 Dextrose (D50w Syringe) 25 ml Q15M PRN IV DECREASED GLUCOSE; Start 03/11/17 at 03:15 Dextrose (D50w Syringe) 50 ml Q15M PRN IV DECREASED GLUCOSE; Start 03/11/17 at 03:15 Glucagon (Glucagen) 1 mg Q15M PRN IM DECREASED GLUCOSE; Start 03/11/17 at 03:15 Glucose (Glutose) 15 gm Q15M PRN BUCCAL DECREASED GLUCOSE; Start 03/11/17 at 03: 15 Acetaminophen/ Hydrocodone Bitart ([place] (5/325)) 1 tab Q6H PRN GTB pain Last administered on 03/13/17 03:03; Admin Dose 1 TAB; Start 03/11/17 at 03:30 Ondansetron HCl (Zofran Inj) 4 mg Q6H PRN IV NAUSEA AND/OR VOMITING; Start 03/11 at 03:30 Phenobarbital (Luminal) 64.8 mg BID PO Last administered on 03/20/17 09:17; Admin Dose 64.8 MG; Start 03/11/17 at 09:00 Phenytoin (Dilantin Susp Cup) 100 mg TID GTB Last administered on 03/20/17 12: 17; Admin Dose 100 MG; Start 03/11/17 at 09:00 Topiramate 200 mg 200 mg BID PO Last administered on 03/20/17 09:17; Admin Dose 200 MG; Start 03/11/17 at 09:00 Levetiracetam (Keppra 1,000mg/ 100ml (Pmx)) 100 ml @ 400 mls/hr Q12 IVPB Last administered on 03/20/17 09:20; Admin Dose 400 MLS/HR; Start 03/11/17 at 09:00 Magnesium Hydroxide (Milk Of Mag) 30 ml DAILY PRN PO CONSTIPATION; Start at 03:30 Metoprolol Tartrate (Lopressor) 25 mg BID GTB Last administered on 03/20/17 09 :18; Admin Dose 25 MG; Start 03/11/17 at 09:00 Ondansetron HCl (Zofran Inj) 4 mg Q6H PRN IV NAUSEA AND/OR VOMITING; Start 03/11 at 03:30 Acetaminophen (Tylenol Supp) 650 mg Q6H PRN [place] PAIN LEVEL 1-3 OR FEVER; Start 03/11/17 at 03:30 Multivitamins Therapeutic (Theragran) 1 tab DAILY PO Last administered on 09:17; Admin Dose 1 TAB; Start 03/14/17 at 10:00 Zinc Sulfate (Zinc Sulfate) 220 mg DAILY PO Last administered on 03/20/17 09: 17; Admin Dose 220 MG; Start 03/14/17 at 10:00 Ascorbic Acid (Vitamin C) 500 mg DAILY PO Last administered on 03/20/17 09:17 ; Admin Dose 500 MG; Start 03/14/17 at 10:00 Amiodarone HCl (Cordarone) 100 mg DAILY GTB Last administered on 03/20/17 09: 18; Admin Dose 100 MG; Start 03/15/17 at 09:00 Rifaximin (Xifaxan) 200 mg TID PO Last administered on 03/20/17 12:17; Admin Dose 200 MG; Start 03/18/17 at 21:00; Stop 03/21/17 at 20:59 Fidaxomicin 200 mg 200 mg BID PO Last administered on 03/20/17 12:17; Admin Dose 200 MG; Start 03/19/17 at 15:30 Potassium Chloride (KCl 40 MEQ/250 ML NS) 250 ml @ 62.5 mls/hr ONCE ONCE IVPB Last administered on 03/20/17 12:16; Admin Dose 62.5 MLS/HR; Start 03/20/17 at 11:30; Stop 03/20/17 at 15:29 Vlad Leyva DO Mar 20, 2017 15:18
--- NOTE | 2017-03-20 16:06 | PN ---
Date/Time of Note Date/Time of Note DATE: 03/20/17 TIME: 16:04 Assessment/Plan Lines/Catheters IV Catheter Type (from Nrsg): MIDLINE IV ACCESS Matias in Place (from Nrsg): Yes Assessment/Plan Assessment/Plan [facility] Progress Note Date of Service: 03/20/2017 Place of service: [facility] fifth floor telemetry Today's Assessment & Plan: Overall stable with further complication of C. difficile colitis which likely will explain the patient's white blood cell count elevation. Abd remains benign. No indication for acute surgical intervention. As long as she is improving, I recommend keeping the drains as is with plans of repeat CT in the next 1-2 weeks for re-evaluation. Based on the PANTER trial, published in 2010, as well as my own clinical experience, the current strategy has a significant chance to avoid an operation which carries with it not insignificant risk of morbidity and mortality. Furthermore, we have not had adequate time with the current set up to see effectiveness. Will need at least 1-2 more weeks if patient is not worsening prior to making the decision to operate or not. Happy to also manage as an outpatient. With above assessment, I've recommended the followin. Continue current cares with flushing of drains at least 10 cc 3 times daily towards the patient 2. Aggressive intervention to keep the patient patient off the vent and put Shiley valve so patient can speak and hopefully eat 3. Swallowing eval to see if patient can eat and get her off of tube feeds 4. Aggressively treat C. difficile and recheck 5. We're hopeful to expedite patient's recovery with above with hope of short term stay at LTAC and d/c home afterwards after C. difficile colitis has been appropriately treated and her other relatively more minor medical issues have been addressed Thank you very much for having me involved in the care of this very pleasant patient and wonderful family. If you have any questions, please feel free to contact me at [phone]. Nature of presenting problem: High severity Please note that, given the extensive number of diagnoses or management options , the extensive amount and/or complexity of data needed to be reviewed, and high risk of complications and/or morbidity or mortality, this qualifies as high complexity type of decision-making. Disclaimer: Inadvertent spelling and grammatical errors are likely due to EHR/ dictation software use and do not reflect on the quality of delivered patient care. Also, please note that the electronic time recorded on this node does not necessarily reflect the actual time of the visit. Updated clinical summary: Very pleasant but unfortunate 61-year-old lady with multiple comorbidities and recent severe pancreatitis complicated by pseudocyst, as well as need for tracheostomy placement and tube feeding, hospitalized for the last 2-3 months, presenting with ongoing issues with pancreatic pseudocyst. Comorbidities: 1. BMI 25.9 2. Severe pancreatitis complicated by pseudocyst formation requiring drainage, as well as need for tracheostomy and PEG. Prolonged hospitalization followed by prolonged subacute care stay; prolonged hospital stay at [facility], 01/04/2017 01/27/2017 requiring multiple interventions such as ERCP as well as temporary hemodialysis for acute kidney injury, respiratory failure requiring tracheostomy and PEG placement; transferred to [place] for vent weaning since discharge on 01/27/[address]-guided left flank pseudocyst drainage by interventional radiology 02/07/2017 [facility] 4. Status post ERCP with large filling defects seen in common bile duct consistent with a stone; status post stent placement in common bile duct 2016 [facility] 5. Status post CT-guided drainage of right flank fluid collection (removal of 200 cc of purulent fluid) 02/28/2017 [facility] Subjective: No major reported events or complaints; no major or obvious reported abd pain and seems to be under control with medications; no n/v/d; no sob or cp; ? flatus ; + reported BM; minimal activity; C. difficile positive Objective: Vitals: See below I's & O's: See below Exam: GENERAL: On exam, the patient was lying in bed and appeared to be comfortable and in no acute distress. ABDOMEN: Soft, nontender and nondistended. Drain outputs appeared to be purulent. There are no peritoneal signs or guarding. SKIN: Skin appears to be pink and feels warm to touch. NEUROLOGIC: Patient is awake, alert, and appears to be following commands appropriately. Labs: See below Exam/Review of Systems Vital Signs Vitals Vital Signs Date Time Temp Pulse Resp B/P Pulse Ox O2 Delivery O2 Flow Rate FiO2 03/20/17 13:52 99 5.0 28 03/20/17 13:52 112 20 Aerosol 03/20/17 12:18 98.1 125/74 Intake and Output 03/19/17 03/19/17 03/20/17 15:00 23:00 07:00 Intake Total 800 ml 720 ml Output Total 15 ml 475 ml 470 ml Balance -15 ml 325 ml 250 ml Results Result Diagram: 03/20/17 0653 03/20/17 0653 KIM BELLAMY M.D. Mar 20, 2017 16:06
--- NOTE | 2017-03-20 16:56 | PN ---
DATE: 03/20/2017 SUBJECTIVE DATA: No events overnight. The patient is sleeping, looks comfortable. No fevers. LABORATORY AND DIAGNOSTIC DATA: WBC today 45.2, platelets 443, neutrophils 87.9, no bands. BUN 14, creatinine 0.50. ANTIMICROBAL: Patient is on Dificid and Robaxin, status post Flagyl and oral vancomycin. INDWELLING: The patient has intra-abdominal drainage catheters, trach and PEG. PHYSICAL EXAMINATION: GENERAL: Wasted, well-developed elderly woman, who is in no distress. HEENT: Head atraumatic, normocephalic. Sclerae anicteric. Buccal mucosa dry. NECK: Supple. CHEST: Chest rise symmetrical. Breath sounds diminished at the bases. HEART: S1, S2. ABDOMEN: Soft, bowel sounds present. EXTREMITIES: Without cyanosis. ASSESSMENT: 1. Systemic inflammatory response syndrome with persistent leukocytosis secondary. 2. Clostridium difficile colitis. 3. History of acute pancreatitis with pancreatic pseudocyst, status post drainage with catheters being cardiac adjusted multiple times and latest fluid cultures being negative. 4. Respiratory failure. 5. Dysphagia. 6. History of urinary tract infection. 7. Left mastoiditis, treated. PLAN: 1. The patient remains stable. 2. Continue present care. 3. Continue on Dificid. 4. Follow recommendations of consultants. 5. Await for clinical improvement. Dictated By: Darcy Matthews NP /gigi/[email or web address] /Document#: [id number]
[2017-03-20] MEDS ORDERED: MAGNESIUM SULFATE 3 GM in SOD CHLORIDE 0.9% 100 ML IVPB ONE (17:00)
[2017-03-20 17:30] LABS: PATH REVIEW Y
[2017-03-20] MEDS: EPOETIN 10000 UNITS/1 ML INJ (ESRD) SC SCH (17:57)
[2017-03-21] VITALS (11 sets, daily range): BP systolic 107–140; BP diastolic 62–78; PULSE 97–120; RESP 17–20
[2017-03-21] MEDS: ACETAMINOPHEN 650MG/20.3ML CUP GTB PRN (01:32)
[2017-03-21] MEDS: INSULIN ASPART [NOVOLOG] 3 ML PEN SC SCH ×4 (06:00→17:26)
[2017-03-21] MEDS: clonAZEPAM 0.5 MG TAB GTB SCH ×3 (06:14→22:10)
[2017-03-21 07:33] LABS: ABNORMAL IP MESSAGE 1; HEMATOCRIT 31.5 % (37.0-47.0); HEMOGLOBIN 10.1 g/dl (12.0-16.0); MEAN CORPUSCULAR HEMOGLOBIN 30.3 pg (29.0-33.0); MEAN CORPUSCULAR HGB CONC 32.1 g/dl (32.0-37.0); MEAN CORPUSCULAR VOLUME 94.6 fl (82.0-101.0); MEAN PLATELET VOLUME 9.2 fl (7.4-10.4); PLATELET COUNT 403 10^3/UL (140-415); POSITIVE DIFF @See below; RED BLOOD COUNT 3.33 10^6/ul (4.20-5.40); RED CELL DISTRIBUTION WIDTH 15.9 % (11.5-14.5); WHITE BLOOD COUNT 30.2 10^3/ul (4.8-10.8)
[2017-03-21 08:08] LABS: CALCIUM 8.6 mg/dl (8.4-10.2); CREATININE 0.44 mg/dl (0.44-1.00); POTASSIUM 3.3 mmol/L (3.5-5.1)
[2017-03-21] MEDS ORDERED: POTASSIUM CHLORIDE (SR) 20 MEQ TAB PO STA (08:40)
[2017-03-21] MEDS: PHENYTOIN (100 MG/4 ML) CUP GTB SCH ×3 (09:29→22:08)
[2017-03-21] MEDS: DOCUSATE SODIUM 10 MG/ML (10ML CUP) GTB SCH ×2 (09:29→22:08)
[2017-03-21] MEDS: FIDAXOMICIN 200 MG TABLET PO SCH ×2 (09:30→22:09)
[2017-03-21] MEDS: ZINC SULFATE 220 MG CAP PO SCH (09:30)
[2017-03-21] MEDS: MULTIVITAMINS THERAPEUTIC TAB PO SCH (09:31)
[2017-03-21] MEDS: AMIODARONE 200 MG TAB GTB SCH (09:31)
[2017-03-21] MEDS: ASCORBIC ACID 500 MG TAB PO SCH (09:31)
[2017-03-21] MEDS: TOPIRAMATE 100 MG TAB PO SCH ×2 (09:31→22:10)
[2017-03-21] MEDS: PHENOBARBITAL 32.4 MG TAB PO SCH ×2 (09:32→22:10)
[2017-03-21] MEDS: METOPROLOL 25 MG TAB GTB SCH ×2 (09:32→22:11)
[2017-03-21] MEDS: LEVETIRACETAM 1000 MG (PMX) 100 ML IVPB SCH ×2 (09:33→22:09)
[2017-03-21] MEDS: CLOTRIMAZOLE 1% 30 GM CR TOP SCH (09:34)
[2017-03-21] MEDS: BALSAM PERU/CASTOR OIL 60 GM TUBE TOP SCH (09:34)
[2017-03-21 09:39] LABS: ANISOCYTOSIS 1+ (0-0); GIANT THROMBO% (M) 1 % (0-0); MICROCYTOSIS 1+ (0-0); MONOCYTES % (M) 4 % (0-11); PLATELET ESTIMATE NORMAL; POLYCHROMASIA 3+ (0-0)
[2017-03-21] MEDS: RIFAXIMIN 200 MG TAB PO SCH ×2 (09:45→13:53)
--- NOTE | 2017-03-21 14:26 | CONS ---
Date/Time of Note Date/Time of Note DATE: 03/21/17 TIME: 14:24 Assessment/Plan Assessment/Plan Chief Complaint/Hosp Course SUBJECTIVE DATA: No events overnight. The patient is sleeping, looks comfortable. No fevers. ANTIMICROBAL: Patient is on Dificid and Robaxin, status post Flagyl and oral vancomycin. INDWELLING: The patient has intra-abdominal drainage catheters, trach and PEG. PHYSICAL EXAMINATION: GENERAL: Wasted, well-developed elderly woman, who is in no distress. HEENT: Head atraumatic, normocephalic. Sclerae anicteric. Buccal mucosa dry. NECK: Supple. CHEST: Chest rise symmetrical. Breath sounds diminished at the bases. HEART: S1, S2. ABDOMEN: Soft, bowel sounds present. EXTREMITIES: Without cyanosis. ASSESSMENT: 1. Systemic inflammatory response syndrome with persistent leukocytosis secondary to #2. 2. Clostridium difficile colitis. 3. History of acute pancreatitis with pancreatic pseudocyst, status post drainage with catheters being cardiac adjusted multiple times and latest fluid cultures being negative. 4. Respiratory failure. 5. Dysphagia. 6. History of urinary tract infection. 7. Left mastoiditis, treated. PLAN: 1. The patient remains stable. 2. Continue present care. 3. Continue Dificid. 4. Follow recommendations of consultants. 5. Await for clinical improvement. Problems: Consultation Date/Type/Reason Admit Date/Time Mar 11, 2017 at 02:03 Initial Consult Date 03/11/17 Type of Consultation: id Exam/Review of Systems Vital Signs Vitals Vital Signs Date Time Temp Pulse Resp B/P Pulse Ox O2 Delivery O2 Flow Rate FiO2 03/21/17 13:41 8.0 03/21/17 12:33 28 03/21/17 12:27 97 03/21/17 11:45 97.8 18 111/69 99 03/21/17 08:40 Aerosol Intake and Output 03/20/17 03/20/17 03/21/17 15:00 23:00 07:00 Intake Total 1150 ml 800 ml Output Total 925 ml 1650 ml Balance 225 ml -850 ml Results Result Diagram: 03/21/17 0645 03/21/17 0645 Results 24 hrs Laboratory Tests Test 03/20/17 17:18 03/20/17 17:54 03/21/17 01:32 03/21/17 06:14 Magnesium Level 2.0 Bedside Glucose 118 129 122 Test 03/21/17 06:45 03/21/17 12:15 White Blood Count 30.2 #H Red Blood Count 3.33 L Hemoglobin 10.1 L Hematocrit 31.5 L Mean Corpuscular Volume 94.6 Mean Corpuscular Hemoglobin 30.3 Mean Corpuscular Hemoglobin Concent 32.1 Red Cell Distribution Width 15.9 H Platelet Count 403 Mean Platelet Volume 9.2 Neutrophils % Segmented Neutrophils % (Manual) 83 H Band Neutrophils % (Manual) 2 Lymphocytes % Lymphocytes % (Manual) 11 L Monocytes % Monocytes % (Manual) 4 Eosinophils % Basophils % Nucleated Red Blood Cells % 0.0 Neutrophils # Neutrophils # (Manual) 25.2 H Band Neutrophils # 0.6 Absolute Lymphocytes (Manual) 3.3 H Lymphocytes # Monocytes # Absolute Monocytes (Manual) 1.2 H Eosinophils # Basophils # Nucleated Red Blood Cells # Platelet Estimate NORMAL Giant Platelets 1 H Polychromasia 3+ Anisocytosis 1+ Microcytosis 1+ Sodium Level 142 Potassium Level 3.3 L Chloride Level 116 H Carbon Dioxide Level 20 L Anion Gap 9 Blood Urea Nitrogen 15 Creatinine 0.44 Glucose Level 119 Calcium Level 8.6 Magnesium Level 2.2 Bedside Glucose 116 Medications Medications Current Medications Insulin Aspart (Novolog Insulin Pen) NOVOLOG *MODERATE* ALGORI... Q6 SC Last administered on 03/20/17 12:21; Admin Dose 2 UNIT; Start 03/11/17 at 06:00 Acetaminophen (Tylenol Liquid) 650 mg Q4H PRN GTB PAIN AND OR ELEVATED TEMP Last administered on 03/21/17 01:32; Admin Dose 650 MG; Start 03/11/17 at 03:00 Al Hydrox/Mg Hydrox/Simethicone (Mag-Al Plus) 30 ml Q4H PRN GTB GASTROINTESTINAL UPSET; Start 03/11/17 at 03:00 Clonazepam (Klonopin) 0.5 mg Q8 GTB Last administered on 03/21/17 13:53; Admin Dose 0.5 MG; Start 03/11/17 at 06:00 Clotrimazole (Lotrimin Cr) 1 applic AM TOP Last administered on 03/21/17 09:34 ; Admin Dose 1 APPLIC; Start 03/11/17 at 09:00 Docusate Sodium (Colace Liquid Cup) 100 mg BID GTB Last administered on 09:29; Admin Dose 100 MG; Start 03/11/17 at 09:00 Miscellaneous Information 1 ea NOTE XX ; Start 03/11/17 at 03:15 Glucose (Glutose) 15 gm Q15M PRN PO DECREASED GLUCOSE; Start 03/11/17 at 03:15 Glucose (Glutose) 22.5 gm Q15M PRN PO DECREASED GLUCOSE; Start 03/11/17 at 03:15 Dextrose (D50w Syringe) 25 ml Q15M PRN IV DECREASED GLUCOSE; Start 03/11/17 at 03:15 Dextrose (D50w Syringe) 50 ml Q15M PRN IV DECREASED GLUCOSE; Start 03/11/17 at 03:15 Glucagon (Glucagen) 1 mg Q15M PRN IM DECREASED GLUCOSE; Start 03/11/17 at 03:15 Glucose (Glutose) 15 gm Q15M PRN BUCCAL DECREASED GLUCOSE; Start 03/11/17 at 03: 15 Acetaminophen/ Hydrocodone Bitart ([place] (5/325)) 1 tab Q6H PRN GTB pain Last administered on 03/13/17 03:03; Admin Dose 1 TAB; Start 03/11/17 at 03:30 Ondansetron HCl (Zofran Inj) 4 mg Q6H PRN IV NAUSEA AND/OR VOMITING; Start 03/11 at 03:30 Phenobarbital (Luminal) 64.8 mg BID PO Last administered on 03/21/17 09:32; Admin Dose 64.8 MG; Start 03/11/17 at 09:00 Phenytoin (Dilantin Susp Cup) 100 mg TID GTB Last administered on 03/21/17 12: 17; Admin Dose 100 MG; Start 03/11/17 at 09:00 Topiramate 200 mg 200 mg BID PO Last administered on 03/21/17 09:31; Admin Dose 200 MG; Start 03/11/17 at 09:00 Levetiracetam (Keppra 1,000mg/ 100ml (Pmx)) 100 ml @ 400 mls/hr Q12 IVPB Last administered on 03/21/17 09:33; Admin Dose 400 MLS/HR; Start 03/11/17 at 09:00 Magnesium Hydroxide (Milk Of Mag) 30 ml DAILY PRN PO CONSTIPATION; Start at 03:30 Metoprolol Tartrate (Lopressor) 25 mg BID GTB Last administered on 03/21/17 09 :32; Admin Dose 25 MG; Start 03/11/17 at 09:00 Ondansetron HCl (Zofran Inj) 4 mg Q6H PRN IV NAUSEA AND/OR VOMITING; Start 03/11 at 03:30 Acetaminophen (Tylenol Supp) 650 mg Q6H PRN [place] PAIN LEVEL 1-3 OR FEVER; Start 03/11/17 at 03:30 Multivitamins Therapeutic (Theragran) 1 tab DAILY PO Last administered on 09:31; Admin Dose 1 TAB; Start 03/14/17 at 10:00 Zinc Sulfate (Zinc Sulfate) 220 mg DAILY PO Last administered on 03/21/17 09: 30; Admin Dose 220 MG; Start 03/14/17 at 10:00 Ascorbic Acid (Vitamin C) 500 mg DAILY PO Last administered on 03/21/17 09:31 ; Admin Dose 500 MG; Start 03/14/17 at 10:00 Amiodarone HCl (Cordarone) 100 mg DAILY GTB Last administered on 03/21/17 09: 31; Admin Dose 100 MG; Start 03/15/17 at 09:00 Rifaximin (Xifaxan) 200 mg TID PO Last administered on 03/21/17 13:53; Admin Dose 200 MG; Start 03/18/17 at 21:00; Stop 03/21/17 at 20:59 Fidaxomicin (Dificid) 200 mg BID PO Last administered on 03/21/17 09:30; Admin Dose 200 MG; Start 03/19/17 at 15:30 Epoetin Mina (Epogen (Esrd)) 10,000 units MoWeFr@17 SC Last administered on 17:57; Admin Dose 10,000 UNITS; Start 03/20/17 at 17:00 MIKE TURCIOS NP Mar 21, 2017 14:26
--- NOTE | 2017-03-21 15:06 | PN ---
Date/Time of Note Date/Time of Note DATE: 03/21/17 TIME: 15:05 Assessment/Plan VTE Prophylaxis VTE Prophylaxis Intervention: SCD's Lines/Catheters IV C[facility]ter Type (from [facility] Mid Line Urinary Cath still in place: Yes Reason Cath still needed: urinary retention Assessment/Plan Assessment/Plan 61 yo F past medical history paroxysmal A. fib, with recent long hospital stay for gallstone pancreatitis c/b pseudocyst formation requiring drainage transferred from [place] as concern for change in characteristics of abd fluid collection. Current H stay complicated by CDiff. PLAN #CDiff: diagnosed 03.17. PO vanc changed to Dificid 03.19. WBCs still improving, cont rectal tube #abd fluid collection (peripancreatic): sp drainage catheter readjustement 03.14 , gen surg following, #chronic respiratory failure sp trach: pulm following #dysphagia: cont TFs #?seizure d/o: cont AED #urinary retention: cont ortiz CM note reviewed. [place] requesting WBCs be <20 prior to transfer back. Leukocytosis is 2/2 severe CDiff and is improving with continued treatment. Subjective 24 Hr Interval Summary Free Text/Dictation diarrhea has lessened Exam/Review of Systems Vital Signs Vitals Vital Signs Date Time Temp Pulse Resp B/P Pulse Ox O2 Delivery O2 Flow Rate FiO2 03/21/17 13:41 8.0 03/21/17 12:33 28 03/21/17 12:27 97 03/21/17 11:45 97.8 18 111/69 99 03/21/17 08:40 Aerosol Intake and Output 03/20/17 03/20/17 03/21/17 15:00 23:00 07:00 Intake Total 1150 ml 800 ml Output Total 925 ml 1650 ml Balance 225 ml -850 ml Exam nad trached no rashes rectal tube in place no edema Results Result Diagram: 03/21/17 0645 03/21/17 0645 Results 24 hrs Laboratory Tests Test 03/20/17 17:18 03/20/17 17:54 03/21/17 01:32 03/21/17 06:14 Magnesium Level 2.0 Bedside Glucose 118 129 122 Test 03/21/17 06:45 03/21/17 12:15 White Blood Count 30.2 #H Red Blood Count 3.33 L Hemoglobin 10.1 L Hematocrit 31.5 L Mean Corpuscular Volume 94.6 Mean Corpuscular Hemoglobin 30.3 Mean Corpuscular Hemoglobin Concent 32.1 Red Cell Distribution Width 15.9 H Platelet Count 403 Mean Platelet Volume 9.2 Neutrophils % Segmented Neutrophils % (Manual) 83 H Band Neutrophils % (Manual) 2 Lymphocytes % Lymphocytes % (Manual) 11 L Monocytes % Monocytes % (Manual) 4 Eosinophils % Basophils % Nucleated Red Blood Cells % 0.0 Neutrophils # Neutrophils # (Manual) 25.2 H Band Neutrophils # 0.6 Absolute Lymphocytes (Manual) 3.3 H Lymphocytes # Monocytes # Absolute Monocytes (Manual) 1.2 H Eosinophils # Basophils # Nucleated Red Blood Cells # Platelet Estimate NORMAL Giant Platelets 1 H Polychromasia 3+ Anisocytosis 1+ Microcytosis 1+ Sodium Level 142 Potassium Level 3.3 L Chloride Level 116 H Carbon Dioxide Level 20 L Anion Gap 9 Blood Urea Nitrogen 15 Creatinine 0.44 Glucose Level 119 Calcium Level 8.6 Magnesium Level 2.2 Bedside Glucose 116 Medications Medications Current Medications Insulin Aspart (Novolog Insulin Pen) NOVOLOG *MODERATE* ALGORI... Q6 SC Last administered on 03/20/17 12:21; Admin Dose 2 UNIT; Start 03/11/17 at 06:00 Acetaminophen (Tylenol Liquid) 650 mg Q4H PRN GTB PAIN AND OR ELEVATED TEMP Last administered on 03/21/17 01:32; Admin Dose 650 MG; Start 03/11/17 at 03:00 Al Hydrox/Mg Hydrox/Simethicone (Mag-Al Plus) 30 ml Q4H PRN GTB GASTROINTESTINAL UPSET; Start 03/11/17 at 03:00 Clonazepam (Klonopin) 0.5 mg Q8 GTB Last administered on 03/21/17 13:53; Admin Dose 0.5 MG; Start 03/11/17 at 06:00 Clotrimazole (Lotrimin Cr) 1 applic AM TOP Last administered on 03/21/17 09:34 ; Admin Dose 1 APPLIC; Start 03/11/17 at 09:00 Docusate Sodium (Colace Liquid Cup) 100 mg BID GTB Last administered on 09:29; Admin Dose 100 MG; Start 03/11/17 at 09:00 Miscellaneous Information 1 ea NOTE XX ; Start 03/11/17 at 03:15 Glucose (Glutose) 15 gm Q15M PRN PO DECREASED GLUCOSE; Start 03/11/17 at 03:15 Glucose (Glutose) 22.5 gm Q15M PRN PO DECREASED GLUCOSE; Start 03/11/17 at 03:15 Dextrose (D50w Syringe) 25 ml Q15M PRN IV DECREASED GLUCOSE; Start 03/11/17 at 03:15 Dextrose (D50w Syringe) 50 ml Q15M PRN IV DECREASED GLUCOSE; Start 03/11/17 at 03:15 Glucagon (Glucagen) 1 mg Q15M PRN IM DECREASED GLUCOSE; Start 03/11/17 at 03:15 Glucose (Glutose) 15 gm Q15M PRN BUCCAL DECREASED GLUCOSE; Start 03/11/17 at 03: 15 Acetaminophen/ Hydrocodone Bitart ([place] (5/325)) 1 tab Q6H PRN GTB pain Last administered on 03/13/17 03:03; Admin Dose 1 TAB; Start 03/11/17 at 03:30 Ondansetron HCl (Zofran Inj) 4 mg Q6H PRN IV NAUSEA AND/OR VOMITING; Start 03/11 at 03:30 Phenobarbital (Luminal) 64.8 mg BID PO Last administered on 03/21/17 09:32; Admin Dose 64.8 MG; Start 03/11/17 at 09:00 Phenytoin (Dilantin Susp Cup) 100 mg TID GTB Last administered on 03/21/17 12: 17; Admin Dose 100 MG; Start 03/11/17 at 09:00 Topiramate 200 mg 200 mg BID PO Last administered on 03/21/17 09:31; Admin Dose 200 MG; Start 03/11/17 at 09:00 Levetiracetam (Keppra 1,000mg/ 100ml (Pmx)) 100 ml @ 400 mls/hr Q12 IVPB Last administered on 03/21/17 09:33; Admin Dose 400 MLS/HR; Start 03/11/17 at 09:00 Magnesium Hydroxide (Milk Of Mag) 30 ml DAILY PRN PO CONSTIPATION; Start at 03:30 Metoprolol Tartrate (Lopressor) 25 mg BID GTB Last administered on 03/21/17 09 :32; Admin Dose 25 MG; Start 03/11/17 at 09:00 Ondansetron HCl (Zofran Inj) 4 mg Q6H PRN IV NAUSEA AND/OR VOMITING; Start 03/11 at 03:30 Acetaminophen (Tylenol Supp) 650 mg Q6H PRN [place] PAIN LEVEL 1-3 OR FEVER; Start 03/11/17 at 03:30 Multivitamins Therapeutic (Theragran) 1 tab DAILY PO Last administered on 09:31; Admin Dose 1 TAB; Start 03/14/17 at 10:00 Zinc Sulfate (Zinc Sulfate) 220 mg DAILY PO Last administered on 03/21/17 09: 30; Admin Dose 220 MG; Start 03/14/17 at 10:00 Ascorbic Acid (Vitamin C) 500 mg DAILY PO Last administered on 03/21/17 09:31 ; Admin Dose 500 MG; Start 03/14/17 at 10:00 Amiodarone HCl (Cordarone) 100 mg DAILY GTB Last administered on 03/21/17 09: 31; Admin Dose 100 MG; Start 03/15/17 at 09:00 Rifaximin (Xifaxan) 200 mg TID PO Last administered on 03/21/17 13:53; Admin Dose 200 MG; Start 03/18/17 at 21:00; Stop 03/21/17 at 20:59 Fidaxomicin (Dificid) 200 mg BID PO Last administered on 03/21/17 09:30; Admin Dose 200 MG; Start 03/19/17 at 15:30 Epoetin Mina (Epogen (Esrd)) 10,000 units MoWeFr@17 SC Last administered on 17:57; Admin Dose 10,000 UNITS; Start 03/20/17 at 17:00 OMAIRA OLIVERA MD Mar 21, 2017 15:06
--- NOTE | 2017-03-21 16:00 | PN ---
Date/Time of Note Date/Time of Note DATE: 03/21/17 TIME: 15:54 Assessment/Plan Lines/Catheters IV Catheter Type (from [facility]): Mid Line [place] in Place (from Nrs): Yes Assessment/Plan Chief Complaint/Hosp Course 1. Peripancreatic fluid collection: s/p drain upsizing with additional drain; -continue drain to bulb suction -defer to HBS/GI -abx per sensitivity 2. Leukocytosis with CDiff: improving -aggressive abx -supportive 3. Hx. of respiratory failure with trach: comfortable on trach collar -supportive -pulmonary toilet 4. Dysphagia with PEG placement -cont tf with aspiration precautions 5. Thrombocytosis: likely 2/2 #1 -supportive -as above 6. Mastoiditis -cont abx 7. Anemia: no acute bleed -monitor and transfuse as needed 8. Hypokalemia: -electrolyte optimization Thank you. Patient seen and examined in collaboration with Dr. Vladimir Kirkpatrick. Problems: Subjective 24 Hr Interval Summary Appears comfortable on trach mist. No c/o pain/ abdominal discomfort. Drains continuing to drain. Continues to have liquid stool per rectal tube. No fevers, chills, sob, congested cough, vomiting, sz. Exam/Review of Systems Vital Signs Vitals Vital Signs Date Time Temp Pulse Resp B/P Pulse Ox O2 Delivery O2 Flow Rate FiO2 03/21/17 13:41 8.0 03/21/17 12:33 28 03/21/17 12:27 97 03/21/17 11:45 97.8 18 111/69 99 03/21/17 08:40 Aerosol Intake and Output 03/20/17 03/20/17 03/21/17 15:00 23:00 07:00 Intake Total 1150 ml 800 ml Output Total 925 ml 1650 ml Balance 225 ml -850 ml Exam Free Text/Dictation Constitutional: alert, tracks. No distress, No oriented Psych: nl mood/affect, no complaints, confused; intermittent agitation Head: atraumatic, normocephalic Eyes: nl lids, nl sclera ENMT: mucosa pink and moist Neck: non-tender, trach with trach collar Respiratory: normal air movement, No congested cough Cardiovascular: nl pulses, regular rate and rhythm Gastrointestinal: drains x 2 w min drainage, soft, No distended; rectal tube with liquid output Musculoskeletal: muscle weakness, nl extremities to inspection Extremities: normal pulses, No edema Neurological: confused, No nl mental status Skin: No rash or lesions Results Result Diagram: 03/21/17 0645 03/21/17 0645 JOSE LUIS ORO NP Mar 21, 2017 16:00
--- NOTE | 2017-03-21 18:43 | CONS ---
Date/Time of Note Date/Time of Note DATE: 03/21/17 TIME: 18:42 Assessment/Plan Assessment/Plan Additional Assessment/Plan History of pancreatitis with abdominal fluid collection Paroxysmal atrial fibrillation, currently sinus rhythm Respiratory failure Preserved ejection fraction Hypertension -Blood pressure trend remains stable. Continue amiodarone and beta-linda as heart rate permits. Will order additional potassium supplementation to ideally maintain above 4.0 Consultation Date/Type/Reason Admit Date/Time Mar 11, 2017 at 02:03 Initial Consult Date 03/11/17 Type of Consultation: cv 24 HR Interval Summary Free Text/Dictation Patient seen and examined, denies shortness of breath Exam/Review of Systems Vital Signs Vitals Vital Signs Date Time Temp Pulse Resp B/P Pulse Ox O2 Delivery O2 Flow Rate FiO2 03/21/17 16:44 99 03/21/17 16:08 98.6 19 140/77 89 03/21/17 12:33 5.0 28 03/21/17 08:40 Aerosol Intake and Output 03/20/17 03/20/17 03/21/17 15:00 23:00 07:00 Intake Total 1150 ml 800 ml Output Total 925 ml 1650 ml Balance 225 ml -850 ml Exam No apparent distress Constitutional: alert, oriented Head: normocephalic Neck: other (Tracheostomy) Respiratory: other (Coarse breath sounds bilaterally, no wheezing) Cardiovascular: other (S1-S2 heard), regular rate and rhythm Gastrointestinal: bowel sounds, non-tender, other (No edema), soft Results Result Diagram: 03/21/17 0645 03/21/17 0645 Results 24 hrs Laboratory Tests Test 03/21/17 01:32 03/21/17 06:14 03/21/17 06:45 03/21/17 12:15 Bedside Glucose 129 122 116 White Blood Count 30.2 #H Red Blood Count 3.33 L Hemoglobin 10.1 L Hematocrit 31.5 L Mean Corpuscular Volume 94.6 Mean Corpuscular Hemoglobin 30.3 Mean Corpuscular Hemoglobin Concent 32.1 Red Cell Distribution Width 15.9 H Platelet Count 403 Mean Platelet Volume 9.2 Neutrophils % Segmented Neutrophils % (Manual) 83 H Band Neutrophils % (Manual) 2 Lymphocytes % Lymphocytes % (Manual) 11 L Monocytes % Monocytes % (Manual) 4 Eosinophils % Basophils % Nucleated Red Blood Cells % 0.0 Neutrophils # Neutrophils # (Manual) 25.2 H Band Neutrophils # 0.6 Absolute Lymphocytes (Manual) 3.3 H Lymphocytes # Monocytes # Absolute Monocytes (Manual) 1.2 H Eosinophils # Basophils # Nucleated Red Blood Cells # Platelet Estimate NORMAL Giant Platelets 1 H Polychromasia 3+ Anisocytosis 1+ Microcytosis 1+ Sodium Level 142 Potassium Level 3.3 L Chloride Level 116 H Carbon Dioxide Level 20 L Anion Gap 9 Blood Urea Nitrogen 15 Creatinine 0.44 Glucose Level 119 Calcium Level 8.6 Magnesium Level 2.2 Test 03/21/17 17:25 Bedside Glucose 101 Medications Medications Current Medications Insulin Aspart (Novolog Insulin Pen) NOVOLOG *MODERATE* ALGORI... Q6 SC Last administered on 03/20/17 12:21; Admin Dose 2 UNIT; Start 03/11/17 at 06:00 Acetaminophen (Tylenol Liquid) 650 mg Q4H PRN GTB PAIN AND OR ELEVATED TEMP Last administered on 03/21/17 01:32; Admin Dose 650 MG; Start 03/11/17 at 03:00 Al Hydrox/Mg Hydrox/Simethicone (Mag-Al Plus) 30 ml Q4H PRN GTB GASTROINTESTINAL UPSET; Start 03/11/17 at 03:00 Clonazepam (Klonopin) 0.5 mg Q8 GTB Last administered on 03/21/17 13:53; Admin Dose 0.5 MG; Start 03/11/17 at 06:00 Clotrimazole (Lotrimin Cr) 1 applic AM TOP Last administered on 03/21/17 09:34 ; Admin Dose 1 APPLIC; Start 03/11/17 at 09:00 Docusate Sodium (Colace Liquid Cup) 100 mg BID GTB Last administered on 09:29; Admin Dose 100 MG; Start 03/11/17 at 09:00 Miscellaneous Information 1 ea NOTE XX ; Start 03/11/17 at 03:15 Glucose (Glutose) 15 gm Q15M PRN PO DECREASED GLUCOSE; Start 03/11/17 at 03:15 Glucose (Glutose) 22.5 gm Q15M PRN PO DECREASED GLUCOSE; Start 03/11/17 at 03:15 Dextrose (D50w Syringe) 25 ml Q15M PRN IV DECREASED GLUCOSE; Start 03/11/17 at 03:15 Dextrose (D50w Syringe) 50 ml Q15M PRN IV DECREASED GLUCOSE; Start 03/11/17 at 03:15 Glucagon (Glucagen) 1 mg Q15M PRN IM DECREASED GLUCOSE; Start 03/11/17 at 03:15 Glucose (Glutose) 15 gm Q15M PRN BUCCAL DECREASED GLUCOSE; Start 03/11/17 at 03: 15 Acetaminophen/ Hydrocodone Bitart ([place] (5/325)) 1 tab Q6H PRN GTB pain Last administered on 03/13/17 03:03; Admin Dose 1 TAB; Start 03/11/17 at 03:30 Ondansetron HCl (Zofran Inj) 4 mg Q6H PRN IV NAUSEA AND/OR VOMITING; Start 03/11 at 03:30 Phenobarbital (Luminal) 64.8 mg BID PO Last administered on 03/21/17 09:32; Admin Dose 64.8 MG; Start 03/11/17 at 09:00 Phenytoin (Dilantin Susp Cup) 100 mg TID GTB Last administered on 03/21/17 12: 17; Admin Dose 100 MG; Start 03/11/17 at 09:00 Topiramate 200 mg 200 mg BID PO Last administered on 03/21/17 09:31; Admin Dose 200 MG; Start 03/11/17 at 09:00 Levetiracetam (Keppra 1,000mg/ 100ml (Pmx)) 100 ml @ 400 mls/hr Q12 IVPB Last administered on 03/21/17 09:33; Admin Dose 400 MLS/HR; Start 03/11/17 at 09:00 Magnesium Hydroxide (Milk Of Mag) 30 ml DAILY PRN PO CONSTIPATION; Start at 03:30 Metoprolol Tartrate (Lopressor) 25 mg BID GTB Last administered on 03/21/17 09 :32; Admin Dose 25 MG; Start 03/11/17 at 09:00 Ondansetron HCl (Zofran Inj) 4 mg Q6H PRN IV NAUSEA AND/OR VOMITING; Start 03/11 at 03:30 Acetaminophen (Tylenol Supp) 650 mg Q6H PRN [place] PAIN LEVEL 1-3 OR FEVER; Start 03/11/17 at 03:30 Multivitamins Therapeutic (Theragran) 1 tab DAILY PO Last administered on 09:31; Admin Dose 1 TAB; Start 03/14/17 at 10:00 Zinc Sulfate (Zinc Sulfate) 220 mg DAILY PO Last administered on 03/21/17 09: 30; Admin Dose 220 MG; Start 03/14/17 at 10:00 Ascorbic Acid (Vitamin C) 500 mg DAILY PO Last administered on 03/21/17 09:31 ; Admin Dose 500 MG; Start 03/14/17 at 10:00 Amiodarone HCl (Cordarone) 100 mg DAILY GTB Last administered on 03/21/17 09: 31; Admin Dose 100 MG; Start 03/15/17 at 09:00 Rifaximin (Xifaxan) 200 mg TID PO Last administered on 03/21/17 13:53; Admin Dose 200 MG; Start 03/18/17 at 21:00; Stop 03/21/17 at 20:59 Epoetin Mina (Epogen (Esrd)) 10,000 units MoWeFr@17 SC Last administered on 17:57; Admin Dose 10,000 UNITS; Start 03/20/17 at 17:00 Fidaxomicin (Dificid) 200 mg BID PO ; Start 03/21/17 at 21:00; Stop 03/22/17 at 16:00 Vancomycin HCl (Vancomycin Oral Syringe) 250 mg Q6 PO ; Start 03/22/17 at 18:00 Metronidazole (Flagyl) 500 mg TID PO ; Start 03/22/17 at 21:00 Vlad Leyva DO Mar 21, 2017 18:43
[2017-03-21] MEDS ORDERED: POTASSIUM CHLORIDE 20 MEQ POWDER FOR ORAL SOLN GTB ONE (20:00)
[2017-03-22] VITALS (10 sets, daily range): BP systolic 112–124; BP diastolic 57–70; PULSE 91–110; RESP 18–20
[2017-03-22] MEDS: clonAZEPAM 0.5 MG TAB GTB SCH ×2 (05:57→13:06)
[2017-03-22] MEDS: INSULIN ASPART [NOVOLOG] 3 ML PEN SC SCH ×4 (06:00→17:34)
--- NOTE | 2017-03-22 06:51 | PN ---
Date/Time of Note Date/Time of Note DATE: 03/22/17 TIME: 06:47 Assessment/Plan VTE Prophylaxis VTE Prophylaxis Intervention: other Lines/Catheters IV Catheter Type (from Nrsg): Mid Line Urinary Cath still in place: No Subjective 24 Hr Interval Summary Additional Comments consult f/u dictated pseudocyst drainage op report noted pt is stable Exam/Review of Systems Vital Signs Vitals Vital Signs Date Time Temp Pulse Resp B/P Pulse Ox O2 Delivery O2 Flow Rate FiO2 03/22/17 06:00 99 5.0 28 03/22/17 06:00 97 22 Aerosol T Tube 03/22/17 04:22 98.6 117/64 Intake and Output 03/21/17 03/21/17 03/22/17 15:00 23:00 07:00 Intake Total 200 ml 550 ml Output Total 1150 ml 700 ml Balance -950 ml -150 ml Results Result Diagram: 03/21/17 0645 03/21/17 0645 Results 24 hrs Laboratory Tests Test 03/21/17 12:15 03/21/17 17:25 03/22/17 00:22 03/22/17 06:03 Bedside Glucose 116 101 110 106 Medications Medications Current Medications Insulin Aspart (Novolog Insulin Pen) NOVOLOG *MODERATE* ALGORI... Q6 SC Last administered on 03/20/17 12:21; Admin Dose 2 UNIT; Start 03/11/17 at 06:00 Acetaminophen (Tylenol Liquid) 650 mg Q4H PRN GTB PAIN AND OR ELEVATED TEMP Last administered on 03/21/17 01:32; Admin Dose 650 MG; Start 03/11/17 at 03:00 Al Hydrox/Mg Hydrox/Simethicone (Mag-Al Plus) 30 ml Q4H PRN GTB GASTROINTESTINAL UPSET; Start 03/11/17 at 03:00 Clonazepam (Klonopin) 0.5 mg Q8 GTB Last administered on 03/22/17 05:57; Admin Dose 0.5 MG; Start 03/11/17 at 06:00 Clotrimazole (Lotrimin Cr) 1 applic AM TOP Last administered on 03/21/17 09:34 ; Admin Dose 1 APPLIC; Start 03/11/17 at 09:00 Docusate Sodium (Colace Liquid Cup) 100 mg BID GTB Last administered on 22:08; Admin Dose 100 MG; Start 03/11/17 at 09:00 Miscellaneous Information 1 ea NOTE XX ; Start 03/11/17 at 03:15 Glucose (Glutose) 15 gm Q15M PRN PO DECREASED GLUCOSE; Start 03/11/17 at 03:15 Glucose (Glutose) 22.5 gm Q15M PRN PO DECREASED GLUCOSE; Start 03/11/17 at 03:15 Dextrose (D50w Syringe) 25 ml Q15M PRN IV DECREASED GLUCOSE; Start 03/11/17 at 03:15 Dextrose (D50w Syringe) 50 ml Q15M PRN IV DECREASED GLUCOSE; Start 03/11/17 at 03:15 Glucagon (Glucagen) 1 mg Q15M PRN IM DECREASED GLUCOSE; Start 03/11/17 at 03:15 Glucose (Glutose) 15 gm Q15M PRN BUCCAL DECREASED GLUCOSE; Start 03/11/17 at 03: 15 Acetaminophen/ Hydrocodone Bitart ([place] (5/325)) 1 tab Q6H PRN GTB pain Last administered on 03/13/17 03:03; Admin Dose 1 TAB; Start 03/11/17 at 03:30 Ondansetron HCl (Zofran Inj) 4 mg Q6H PRN IV NAUSEA AND/OR VOMITING; Start 03/11 at 03:30 Phenobarbital (Luminal) 64.8 mg BID PO Last administered on 03/21/17 22:10; Admin Dose 64.8 MG; Start 03/11/17 at 09:00 Phenytoin (Dilantin Susp Cup) 100 mg TID GTB Last administered on 03/21/17 22: 08; Admin Dose 100 MG; Start 03/11/17 at 09:00 Topiramate 200 mg 200 mg BID PO Last administered on 03/21/17 22:10; Admin Dose 200 MG; Start 03/11/17 at 09:00 Levetiracetam (Keppra 1,000mg/ 100ml (Pmx)) 100 ml @ 400 mls/hr Q12 IVPB Last administered on 03/21/17 22:09; Admin Dose 400 MLS/HR; Start 03/11/17 at 09:00 Magnesium Hydroxide (Milk Of Mag) 30 ml DAILY PRN PO CONSTIPATION; Start at 03:30 Metoprolol Tartrate (Lopressor) 25 mg BID GTB Last administered on 03/21/17 22 :11; Admin Dose 25 MG; Start 03/11/17 at 09:00 Ondansetron HCl (Zofran Inj) 4 mg Q6H PRN IV NAUSEA AND/OR VOMITING; Start 03/11 at 03:30 Acetaminophen (Tylenol Supp) 650 mg Q6H PRN [place] PAIN LEVEL 1-3 OR FEVER; Start 03/11/17 at 03:30 Multivitamins Therapeutic (Theragran) 1 tab DAILY PO Last administered on 09:31; Admin Dose 1 TAB; Start 03/14/17 at 10:00 Zinc Sulfate (Zinc Sulfate) 220 mg DAILY PO Last administered on 03/21/17 09: 30; Admin Dose 220 MG; Start 03/14/17 at 10:00 Ascorbic Acid (Vitamin C) 500 mg DAILY PO Last administered on 03/21/17 09:31 ; Admin Dose 500 MG; Start 03/14/17 at 10:00 Amiodarone HCl (Cordarone) 100 mg DAILY GTB Last administered on 03/21/17 09: 31; Admin Dose 100 MG; Start 03/15/17 at 09:00 Epoetin Mina (Epogen (Esrd)) 10,000 units MoWeFr@17 SC Last administered on 17:57; Admin Dose 10,000 UNITS; Start 03/20/17 at 17:00 Fidaxomicin (Dificid) 200 mg BID PO Last administered on 03/21/17 22:09; Admin Dose 200 MG; Start 03/21/17 at 21:00; Stop 03/22/17 at 16:00 Vancomycin HCl (Vancomycin Oral Syringe) 250 mg Q6 PO ; Start 03/22/17 at 18:00 Metronidazole (Flagyl) 500 mg TID PO ; Start 03/22/17 at 21:00 ANA MCALLISTER MD Mar 22, 2017 06:50
[2017-03-22 08:46] LABS: BASOPHIL # 0.1 10^3/ul (0.0-0.1); BASOPHILS % 0.5 % (0.0-2.0); EOSINOPHILS # 0.1 10^3/ul (0.0-0.5); EOSINOPHILS % 0.8 % (0.0-7.0); HEMATOCRIT 31.9 % (37.0-47.0); HEMOGLOBIN 9.9 g/dl (12.0-16.0); LYMPHOCYTES # 2.8 10^3/ul (0.8-2.9); LYMPHOCYTES % 19.9 % (15.0-51.0); MEAN CORPUSCULAR HEMOGLOBIN 28.9 pg (29.0-33.0); MEAN CORPUSCULAR VOLUME 93.3 fl (82.0-101.0); MEAN PLATELET VOLUME 8.9 fl (7.4-10.4); MONOCYTE # 0.8 10^3/ul (0.3-0.9); MONOCYTES % 5.5 % (0.0-11.0); NEUTROPHIL # 10.4 10^3/ul (1.6-7.5); NEUTROPHILS % 72.4 % (39.0-77.0); PLATELET COUNT 400 10^3/UL (140-415); RED BLOOD COUNT 3.42 10^6/ul (4.20-5.40); RED CELL DISTRIBUTION WIDTH 15.9 % (11.5-14.5); WHITE BLOOD COUNT 14.3 10^3/ul (4.8-10.8)
[2017-03-22 09:08] LABS: CALCIUM 9.3 mg/dl (8.4-10.2); CREATININE 0.49 mg/dl (0.44-1.00); POTASSIUM 3.5 mmol/L (3.5-5.1)
[2017-03-22] MEDS: FIDAXOMICIN 200 MG TABLET PO SCH (09:57)
[2017-03-22] MEDS: PHENYTOIN (100 MG/4 ML) CUP GTB SCH ×2 (09:57→13:07)
[2017-03-22] MEDS: DOCUSATE SODIUM 10 MG/ML (10ML CUP) GTB SCH (09:57)
[2017-03-22] MEDS: ASCORBIC ACID 500 MG TAB PO SCH (09:58)
[2017-03-22] MEDS: ZINC SULFATE 220 MG CAP PO SCH (09:58)
[2017-03-22] MEDS: MULTIVITAMINS THERAPEUTIC TAB PO SCH (09:59)
[2017-03-22] MEDS: METOPROLOL 25 MG TAB GTB SCH (10:00)
[2017-03-22] MEDS: AMIODARONE 200 MG TAB GTB SCH (10:01)
[2017-03-22] MEDS: LEVETIRACETAM 1000 MG (PMX) 100 ML IVPB SCH (10:01)
[2017-03-22] MEDS: PHENOBARBITAL 32.4 MG TAB PO SCH (10:06)
[2017-03-22] MEDS: BALSAM PERU/CASTOR OIL 60 GM TUBE TOP SCH (10:18)
[2017-03-22] MEDS: CLOTRIMAZOLE 1% 30 GM CR TOP SCH (10:18)
[2017-03-22] MEDS: TOPIRAMATE 100 MG TAB PO SCH (10:19)
--- NOTE | 2017-03-22 11:27 | CONS ---
Date/Time of Note Date/Time of Note DATE: 03/22/17 TIME: 11:26 Assessment/Plan Assessment/Plan Additional Assessment/Plan History of pancreatitis with abdominal fluid collection Paroxysmal atrial fibrillation, currently sinus rhythm Respiratory failure Preserved ejection fraction Hypertension -Blood pressure trend remains stable. Continue amiodarone and beta-linda as heart rate permits. Will order additional potassium supplementation to ideally maintain above 4.0 Consultation Date/Type/Reason Admit Date/Time Mar 11, 2017 at 02:03 Initial Consult Date 03/11/17 Type of Consultation: cv 24 HR Interval Summary Free Text/Dictation pt seen and examined Exam/Review of Systems Vital Signs Vitals Vital Signs Date Time Temp Pulse Resp B/P Pulse Ox O2 Delivery O2 Flow Rate FiO2 03/22/17 08:33 98 03/22/17 06:00 99 5.0 28 03/22/17 06:00 22 Aerosol T Tube 03/22/17 04:22 98.6 117/64 Intake and Output 03/21/17 03/21/17 03/22/17 15:00 23:00 07:00 Intake Total 200 ml 550 ml Output Total 1150 ml 700 ml Balance -950 ml -150 ml Exam nad Constitutional: alert, oriented Head: normocephalic Neck: other (trach) Respiratory: other (course bs, no wheeze) Cardiovascular: other (s1s2), regular rate and rhythm Gastrointestinal: bowel sounds, other (no grimacing with palpation), soft Extremities: other (no edema) Results Result Diagram: 03/22/17 0827 03/22/17 0826 Results 24 hrs Laboratory Tests Test 03/21/17 12:15 03/21/17 17:25 03/22/17 00:22 03/22/17 06:03 Bedside Glucose 116 101 110 106 Test 03/22/17 08:26 03/22/17 08:27 Sodium Level 144 Potassium Level 3.5 Chloride Level 118 H Carbon Dioxide Level 19 L Anion Gap 11 Blood Urea Nitrogen 17 Creatinine 0.49 Glucose Level 99 Calcium Level 9.3 White Blood Count 14.3 #H Red Blood Count 3.42 L Hemoglobin 9.9 L Hematocrit 31.9 L Mean Corpuscular Volume 93.3 Mean Corpuscular Hemoglobin 28.9 L Mean Corpuscular Hemoglobin Concent 31.0 L Red Cell Distribution Width 15.9 H Platelet Count 400 Mean Platelet Volume 8.9 Neutrophils % 72.4 Lymphocytes % 19.9 Monocytes % 5.5 Eosinophils % 0.8 Basophils % 0.5 Nucleated Red Blood Cells % 0.0 Neutrophils # 10.4 H Lymphocytes # 2.8 Monocytes # 0.8 Eosinophils # 0.1 Basophils # 0.1 Nucleated Red Blood Cells # 0.0 Magnesium Level 2.0 Medications Medications Current Medications Insulin Aspart (Novolog Insulin Pen) NOVOLOG *MODERATE* ALGORI... Q6 SC Last administered on 03/20/17 12:21; Admin Dose 2 UNIT; Start 03/11/17 at 06:00 Acetaminophen (Tylenol Liquid) 650 mg Q4H PRN GTB PAIN AND OR ELEVATED TEMP Last administered on 03/21/17 01:32; Admin Dose 650 MG; Start 03/11/17 at 03:00 Al Hydrox/Mg Hydrox/Simethicone (Mag-Al Plus) 30 ml Q4H PRN GTB GASTROINTESTINAL UPSET; Start 03/11/17 at 03:00 Clonazepam (Klonopin) 0.5 mg Q8 GTB Last administered on 03/22/17 05:57; Admin Dose 0.5 MG; Start 03/11/17 at 06:00 Clotrimazole (Lotrimin Cr) 1 applic AM TOP Last administered on 03/22/17 10:18 ; Admin Dose 1 APPLIC; Start 03/11/17 at 09:00 Docusate Sodium (Colace Liquid Cup) 100 mg BID GTB Last administered on 09:57; Admin Dose 100 MG; Start 03/11/17 at 09:00 Miscellaneous Information 1 ea NOTE XX ; Start 03/11/17 at 03:15 Glucose (Glutose) 15 gm Q15M PRN PO DECREASED GLUCOSE; Start 03/11/17 at 03:15 Glucose (Glutose) 22.5 gm Q15M PRN PO DECREASED GLUCOSE; Start 03/11/17 at 03:15 Dextrose (D50w Syringe) 25 ml Q15M PRN IV DECREASED GLUCOSE; Start 03/11/17 at 03:15 Dextrose (D50w Syringe) 50 ml Q15M PRN IV DECREASED GLUCOSE; Start 03/11/17 at 03:15 Glucagon (Glucagen) 1 mg Q15M PRN IM DECREASED GLUCOSE; Start 03/11/17 at 03:15 Glucose (Glutose) 15 gm Q15M PRN BUCCAL DECREASED GLUCOSE; Start 03/11/17 at 03: 15 Acetaminophen/ Hydrocodone Bitart (Rose (5/325)) 1 tab Q6H PRN GTB pain Last administered on 03/13/17 03:03; Admin Dose 1 TAB; Start 03/11/17 at 03:30 Ondansetron HCl (Zofran Inj) 4 mg Q6H PRN IV NAUSEA AND/OR VOMITING; Start 03/11 at 03:30 Phenobarbital (Luminal) 64.8 mg BID PO Last administered on 03/22/17 10:06; Admin Dose 64.8 MG; Start 03/11/17 at 09:00 Phenytoin (Dilantin Susp Cup) 100 mg TID GTB Last administered on 03/22/17 09: 57; Admin Dose 100 MG; Start 03/11/17 at 09:00 Topiramate 200 mg 200 mg BID PO Last administered on 03/22/17 10:19; Admin Dose 200 MG; Start 03/11/17 at 09:00 Levetiracetam (Keppra 1,000mg/ 100ml (Pmx)) 100 ml @ 400 mls/hr Q12 IVPB Last administered on 03/22/17 10:01; Admin Dose 400 MLS/HR; Start 03/11/17 at 09:00 Magnesium Hydroxide (Milk Of Mag) 30 ml DAILY PRN PO CONSTIPATION; Start at 03:30 Metoprolol Tartrate (Lopressor) 25 mg BID GTB Last administered on 03/22/17 10 :00; Admin Dose 25 MG; Start 03/11/17 at 09:00 Ondansetron HCl (Zofran Inj) 4 mg Q6H PRN IV NAUSEA AND/OR VOMITING; Start 03/11 at 03:30 Acetaminophen (Tylenol Supp) 650 mg Q6H PRN PA PAIN LEVEL 1-3 OR FEVER; Start 03/11/17 at 03:30 Multivitamins Therapeutic (Theragran) 1 tab DAILY PO Last administered on 09:59; Admin Dose 1 TAB; Start 03/14/17 at 10:00 Zinc Sulfate (Zinc Sulfate) 220 mg DAILY PO Last administered on 9/20/17at 09: 58; Admin Dose 220 MG; Start 03/14/17 at 10:00 Ascorbic Acid (Vitamin C) 500 mg DAILY PO Last administered on 03/22/17 09:58 ; Admin Dose 500 MG; Start 03/14/17 at 10:00 Amiodarone HCl (Cordarone) 100 mg DAILY GTB Last administered on 03/22/17 10: 01; Admin Dose 100 MG; Start 03/15/17 at 09:00 Epoetin Mina (Epogen (Esrd)) 10,000 units MoWeFr@17 SC Last administered on 17:57; Admin Dose 10,000 UNITS; Start 03/20/17 at 17:00 Fidaxomicin (Dificid) 200 mg BID PO Last administered on 03/22/17 09:57; Admin Dose 200 MG; Start 03/21/17 at 21:00; Stop 03/22/17 at 16:00 Vancomycin HCl (Vancomycin Oral Syringe) 250 mg Q6 PO ; Start 03/22/17 at 18:00 Metronidazole (Flagyl) 500 mg TID PO ; Start 03/22/17 at 21:00 Vlad Leyva DO Mar 22, 2017 11:27
[2017-03-22] MEDS: POTASSIUM CHLORIDE 20 MEQ POWDER FOR ORAL SOLN GTB SCH ×2 (13:07→17:28)
--- NOTE | 2017-03-22 13:12 | CONS ---
Date/Time of Note Date/Time of Note DATE: 03/22/17 TIME: 13:11 Assessment/Plan Assessment/Plan Chief Complaint/Hosp Course SUBJECTIVE DATA: No acute changes overnight. Patient is sleeping no fevers Temperature 97.3 pulse 93 respirations 20 blood pressure 124/65 saturation 97% WBC 14.3 H&H 9.9 and 31.9 platelets 400 no shift BUN 17 creatinine 0.49 Antimicrobials: Dificid, oral Flagyl and oral vancomycin INDWELLING: The patient has intra-abdominal drainage catheters, trach and PEG. PHYSICAL EXAMINATION: GENERAL: Wasted, well-developed elderly woman, who is in no distress. HEENT: Head atraumatic, normocephalic. Sclerae anicteric. Buccal mucosa dry. NECK: Supple. CHEST: Chest rise symmetrical. Breath sounds diminished at the bases. HEART: S1, S2. ABDOMEN: Soft, bowel sounds present. EXTREMITIES: Without cyanosis. ASSESSMENT: 1. Systemic inflammatory response syndrome with persistent leukocytosis secondary to #2. 2. Clostridium difficile colitis. 3. History of acute pancreatitis with pancreatic pseudocyst, status post drainage with catheters being cardiac adjusted multiple times and latest fluid cultures being negative. 4. Respiratory failure. 5. Dysphagia. 6. History of urinary tract infection. 7. Left mastoiditis, treated. PLAN: 1. The patient remains stable, WBC tracing down. 2. Continue present care. 3. Continue antibiotics, per pharmacy report Dificid is not going to be available therefore patient was restarted on oral vancomycin and Flagyl. 4. Follow recommendations of consultants. Problems: Consultation Date/Type/Reason Admit Date/Time Mar 11, 2017 at 02:03 Initial Consult Date 03/11/17 Type of Consultation: ID Exam/Review of Systems Vital Signs Vitals Vital Signs Date Time Temp Pulse Resp B/P Pulse Ox O2 Delivery O2 Flow Rate FiO2 03/22/17 12:57 97.3 93 20 124/65 97 03/22/17 08:40 5.0 28 03/22/17 06:00 Aerosol T Tube Intake and Output 03/21/17 03/21/17 03/22/17 15:00 23:00 07:00 Intake Total 200 ml 550 ml Output Total 1150 ml 700 ml Balance -950 ml -150 ml Results Result Diagram: 03/22/17 0827 03/22/17 0826 Results 24 hrs Laboratory Tests Test 03/21/17 17:25 03/22/17 00:22 03/22/17 06:03 03/22/17 08:26 Bedside Glucose 101 110 106 Sodium Level 144 Potassium Level 3.5 Chloride Level 118 H Carbon Dioxide Level 19 L Anion Gap 11 Blood Urea Nitrogen 17 Creatinine 0.49 Glucose Level 99 Calcium Level 9.3 Test 03/22/17 08:27 03/22/17 12:18 White Blood Count 14.3 #H Red Blood Count 3.42 L Hemoglobin 9.9 L Hematocrit 31.9 L Mean Corpuscular Volume 93.3 Mean Corpuscular Hemoglobin 28.9 L Mean Corpuscular Hemoglobin Concent 31.0 L Red Cell Distribution Width 15.9 H Platelet Count 400 Mean Platelet Volume 8.9 Neutrophils % 72.4 Lymphocytes % 19.9 Monocytes % 5.5 Eosinophils % 0.8 Basophils % 0.5 Nucleated Red Blood Cells % 0.0 Neutrophils # 10.4 H Lymphocytes # 2.8 Monocytes # 0.8 Eosinophils # 0.1 Basophils # 0.1 Nucleated Red Blood Cells # 0.0 Magnesium Level 2.0 Bedside Glucose 106 Medications Medications Current Medications Insulin Aspart (Novolog Insulin Pen) NOVOLOG *MODERATE* ALGORI... Q6 SC Last administered on 03/20/17 12:21; Admin Dose 2 UNIT; Start 03/11/17 at 06:00 Acetaminophen (Tylenol Liquid) 650 mg Q4H PRN GTB PAIN AND OR ELEVATED TEMP Last administered on 03/21/17 01:32; Admin Dose 650 MG; Start 03/11/17 at 03:00 Al Hydrox/Mg Hydrox/Simethicone (Mag-Al Plus) 30 ml Q4H PRN GTB GASTROINTESTINAL UPSET; Start 03/11/17 at 03:00 Clonazepam (Klonopin) 0.5 mg Q8 GTB Last administered on 03/22/17 13:06; Admin Dose 0.5 MG; Start 03/11/17 at 06:00 Clotrimazole (Lotrimin Cr) 1 applic AM TOP Last administered on 03/22/17 10:18 ; Admin Dose 1 APPLIC; Start 03/11/17 at 09:00 Docusate Sodium (Colace Liquid Cup) 100 mg BID GTB Last administered on 09:57; Admin Dose 100 MG; Start 03/11/17 at 09:00 Miscellaneous Information 1 ea NOTE XX ; Start 03/11/17 at 03:15 Glucose (Glutose) 15 gm Q15M PRN PO DECREASED GLUCOSE; Start 03/11/17 at 03:15 Glucose (Glutose) 22.5 gm Q15M PRN PO DECREASED GLUCOSE; Start 03/11/17 at 03:15 Dextrose (D50w Syringe) 25 ml Q15M PRN IV DECREASED GLUCOSE; Start 03/11/17 at 03:15 Dextrose (D50w Syringe) 50 ml Q15M PRN IV DECREASED GLUCOSE; Start 03/11/17 at 03:15 Glucagon (Glucagen) 1 mg Q15M PRN IM DECREASED GLUCOSE; Start 03/11/17 at 03:15 Glucose (Glutose) 15 gm Q15M PRN BUCCAL DECREASED GLUCOSE; Start 03/11/17 at 03: 15 Acetaminophen/ Hydrocodone Bitart ([place] (5/325)) 1 tab Q6H PRN GTB pain Last administered on 03/13/17 03:03; Admin Dose 1 TAB; Start 03/11/17 at 03:30 Ondansetron HCl (Zofran Inj) 4 mg Q6H PRN IV NAUSEA AND/OR VOMITING; Start 03/11 at 03:30 Phenobarbital (Luminal) 64.8 mg BID PO Last administered on 03/22/17 10:06; Admin Dose 64.8 MG; Start 03/11/17 at 09:00 Phenytoin (Dilantin Susp Cup) 100 mg TID GTB Last administered on 03/22/17 13: 07; Admin Dose 100 MG; Start 03/11/17 at 09:00 Topiramate 200 mg 200 mg BID PO Last administered on 03/22/17 10:19; Admin Dose 200 MG; Start 03/11/17 at 09:00 Levetiracetam (Keppra 1,000mg/ 100ml (Pmx)) 100 ml @ 400 mls/hr Q12 IVPB Last administered on 03/22/17 10:01; Admin Dose 400 MLS/HR; Start 03/11/17 at 09:00 Magnesium Hydroxide (Milk Of Mag) 30 ml DAILY PRN PO CONSTIPATION; Start at 03:30 Metoprolol Tartrate (Lopressor) 25 mg BID GTB Last administered on 03/22/17 10 :00; Admin Dose 25 MG; Start 03/11/17 at 09:00 Ondansetron HCl (Zofran Inj) 4 mg Q6H PRN IV NAUSEA AND/OR VOMITING; Start 03/11 at 03:30 Acetaminophen (Tylenol Supp) 650 mg Q6H PRN IN PAIN LEVEL 1-3 OR FEVER; Start 03/11/17 at 03:30 Multivitamins Therapeutic (Theragran) 1 tab DAILY PO Last administered on 09:59; Admin Dose 1 TAB; Start 03/14/17 at 10:00 Zinc Sulfate (Zinc Sulfate) 220 mg DAILY PO Last administered on 03/22/17 09: 58; Admin Dose 220 MG; Start 03/14/17 at 10:00 Ascorbic Acid (Vitamin C) 500 mg DAILY PO Last administered on 03/22/17 09:58 ; Admin Dose 500 MG; Start 03/14/17 at 10:00 Amiodarone HCl (Cordarone) 100 mg DAILY GTB Last administered on 03/22/17 10: 01; Admin Dose 100 MG; Start 03/15/17 at 09:00 Epoetin Mina (Epogen (Esrd)) 10,000 units MoWeFr@17 SC Last administered on 17:57; Admin Dose 10,000 UNITS; Start 03/20/17 at 17:00 Fidaxomicin (Dificid) 200 mg BID PO Last administered on 03/22/17 09:57; Admin Dose 200 MG; Start 03/21/17 at 21:00; Stop 03/22/17 at 16:00 Vancomycin HCl (Vancomycin Oral Syringe) 250 mg Q6 PO ; Start 03/22/17 at 18:00 Metronidazole (Flagyl) 500 mg TID PO ; Start 03/22/17 at 21:00 Potassium Chloride (Potassium Chloride Pwd/Soln) 40 meq Q6 GTB Last administered on 03/22/17 13:07; Admin Dose 40 MEQ; Start 03/22/17 at 12:00; Stop 03/22/17 at 18:01 MIKE TURCIOS NP Mar 22, 2017 13:12
--- NOTE | 2017-03-22 15:00 | PN ---
Date/Time of Note Date/Time of Note DATE: 03/22/17 TIME: 14:53 Assessment/Plan Lines/Catheters IV Catheter Type (from Nrs): Mid Line Matias in Place (from Nrs): Yes Assessment/Plan Chief Complaint/Hosp Course 1. Peripancreatic fluid collection: s/p drain upsizing with additional drain; continuing to drain min creamy drainage -continue drain to bulb suction -defer to HBS/GI -abx per sensitivity 2. Leukocytosis with CDiff: much improved -aggressive abx -supportive 3. Hx. of respiratory failure with trach: comfortable on trach collar -supportive -pulmonary toilet 4. Dysphagia with PEG placement -cont tf with aspiration precautions 5. Thrombocytosis: likely 2/2 #1 normalized 6. Mastoiditis -cont abx 7. Anemia: no acute bleed -monitor and transfuse as needed Patient seen and examined in collaboration with Dr. Vladimir Kirkpatrick. Thank you. Thank you. Patient seen and examined in collaboration with Dr. Vladimir Kirkpatrick. Problems: Subjective 24 Hr Interval Summary Sleepy. Continues to have liquid stool per rectal tube. Min drainage from left flank drains. Leukocytosis improved. No fevers, chills, congested cough, vomiting, sz. Exam/Review of Systems Vital Signs Vitals Vital Signs Date Time Temp Pulse Resp B/P Pulse Ox O2 Delivery O2 Flow Rate FiO2 03/22/17 12:57 97.3 93 20 124/65 97 03/22/17 12:50 Aerosol 5.0 28 T Tube Intake and Output 03/21/17 03/21/17 03/22/17 15:00 23:00 07:00 Intake Total 200 ml 550 ml Output Total 1150 ml 700 ml Balance -950 ml -150 ml Exam Free Text/Dictation Constitutional: alert, tracks. No distress, No oriented Psych: nl mood/affect, no complaints, confused; intermittent agitation Head: atraumatic, normocephalic Eyes: nl lids, nl sclera ENMT: mucosa pink and moist Neck: non-tender, trach with trach collar Respiratory: normal air movement, No congested cough Cardiovascular: nl pulses, regular rate and rhythm Gastrointestinal: drains x 2 w min creamy drainage, soft, No distended; rectal tube with large liquid output Musculoskeletal: muscle weakness, nl extremities to inspection Extremities: normal pulses, No edema Neurological: confused, No nl mental status Skin: No rash or lesions Results Result Diagram: 03/22/17 0827 03/22/17 0826 JOSE LUIS ORO NP Mar 22, 2017 15:00
--- NOTE | 2017-03-22 15:53 | DS ---
Date/Time of Note Date/Time of Note DATE: 03/22/17 TIME: 15:52 Discharge Summary Admission/Discharge Info Admit Date/Time Mar 11, 2017 at 02:03 Discharge Date/Time Discharge Diagnosis perihepatic fluid collection, CDiff colitis Patient Condition: Stable Consults general surgery, hepatobiliary surgery, GI, ID, pulm, cardiology Procedures 9.12 CT guided abd fluid collection drainage catheter placement x 2 9.15 CDiff stool: + Hx of Present Illness CC inc size of abd fluid collection HPI 61 yo female with h/o AFib, recent prolonged hospital stay at [facility] 7.5-7.28 for septic shock 2/2 gall stone pancreatitis s/p ERCP w stent and pseudocyst formation warranting drainage. Course c/b LEONOR requiring temporary HD, respiratory failure now s/p trach, and dysphagia sp PEG . Pt transferred to [facility] for vent weaning where she had remained since. During her time at [facility] pt followed by GI for her pseudocyst. 8.8 it was drained by IR. 8. pt had ERCP notable large filling defect seen in CBD consistent with stone. Stent placed in CBD. 8. pt had CT guided drainage of R flank/abdominal fluid collection (200mL purulent fluid)-->drainage bag and catheter left behind. 9.[address] AP which releaved peripancreatic fluid collection persistent despite drainage placement on 8 and an area of attenuation suggestive of walled off necrosis. She was transferred back to [facility] for further management. Pt does not endorse pain though does not really respond to questions. Hospital Course 61 yo F past medical history paroxysmal A. fib, with recent long hospital stay for gallstone pancreatitis c/b pseudocyst formation requiring drainage transferred from [facility] as concern for change in characteristics of abd fluid collection. Drains replaced by IR 9.. Pt with high grade leukocytosis following drainage adjustment, stool testing revealed CDiff. cardiology decreased pt's amio dose from 200 mg to 100 mg on 03.14. WBCs downtrending since CDiff treatment started. Pt is being transferred back to [facility] to continue CDiff treatment and cont vent weaning Of note, pt appears to be on 3 AEDs and topiramate. Defer to [facility] team to evaluate if this much seizure medication truly indicated for this patient. Home Meds Active Scripts Metoprolol Tartrate* (Lopressor*) 25 Mg Tab, 25 MG PO BID for 28 Days, #30 TAB Prov:CRISTIANE CHRISTINA MD 01/27/17 Reported Medications Dextrose* (D50W Syringe*) 50 Ml Soln, 25 ML INJ Q15MIN Y for BLOOD SUGAR, EA FOR BLOOD SUGAR RESULT OF 51-69 REPEAT EVERY 15 MIN UNTIL GLUCOSE IS GREATER THAN 80MG/DL READINGS 02/21/17 Dextrose* (D50W Syringe*) 50 Ml Soln, 50 ML INJ Q15MIN, EA FOR BLOOD GLUCOSE BELOW 51MG/DL REPEAT ABOVE TREATMENT EVERY 15MIN UNTIL GLUCOSE IS GREATER THAN 80MG/DL 02/21/17 Docusate Sodium* (Docusate Sodium* Liq) 50 Mg/5 Ml Liquid, 100 MG GTB BID Y for CONSTIPATION, ML 02/21/17 Epoetin gabbi* (Epogen*) 3,000 Unit/1 Ml Vial, 1000 UNIT SC MONWEDFRI, VIAL 02/21/17 Glucagon,Human Recombinant (Glucagon Emergency Kit) 1 Mg Kit, 1 MG IJ PRN Y for PRN, KIT 02/21/17 Dextrose (Glucose Gel) 38 Gm Gel..gram., 22.5 GM PO Q15 Y for PRN 02/21/17 Dextrose (Glucose Gel) 38 Gm Gel..gram., 15 GM BUCCAL Q15 Y for PRN 02/21/17 Hydrocodone/Acetaminophen (Mallie 5-325 Tablet) 1 Each Tablet, 1 EACH GTB Q6 Y for PAIN, TAB 02/21/17 Insulin Aspart* (Novolog Insulin Pen*) 100 Unit/Ml Soln, 0 SC .SLIDING SCALE AC , EA 0-120 = 0 UNITS 121-150 = 0 UNITS 151-200 = 2 UNITS 201-250 = 4 UNITS 251-300 = 6 UNITS 301-350 = 8 UNITS 351-400 =10 UNITS CALL PROVIDER IF BS ABOVE 400 = 12 UNITS 02/21/17 Clotrimazole* (Lotrimin*) 1%-30 Gm Cream..g., 1 APPLIC TOP, TUB APPLY TO FEET AND WEB SPACES 02/21/17 Chlorhexidine Gluconate (Chlorhexidine Gluconate) 1 Each Towelette, 1 EACH TP QHS, TOWELETTE 02/21/17 Balsam Milmay/[place] Oil (Venelex Ointment) 60 Gm Oint..gm., 1 APPLIC TOP NEEDED Y for PRN, #1 TUB APPLY TO RIGHT EAR LEFT AND RIGHT BUTTOCK 02/21/17 Ascorbic Acid* (Ascorbic Acid*) 500 Mg/5 Ml Syrup, 500 MG JT BID, #300 ML 02/21/17 Amiodarone Hcl* (Amiodarone Hcl*) 200 Mg Tablet, 200 MG GTB DAILY, #30 TAB 02/21/17 Magaldrate/Simethicone* (Mylanta*) 355 Ml Susp, 30 ML GTB Q4 Y for GASTROINTESTINAL UPSET, ML 02/21/17 Acetaminophen* (Acetaminophen* Susp) 325 Mg/10.15 Ml Solution, 650 MG NGT Q4H Y for PAIN OR TEMP ABOVE 38C, ML 02/21/17 Sodium Chloride* (NS* 10 ml (Saline Flush)) 10 Ml Soln, 10 ML IV* PRN, EA 02/21/17 Phenobarbital* (Phenobarbital*) 32.4 Mg Tab, 32.4 MG GTB BID, TAB 1/2 GRAIN = RANGE OF 30-32.5 02/21/17 Ondansetron Hcl* (Ondansetron Hcl* Liq) 4 Mg/5 Ml Solution, 4 MG IV* Q6H Y for NAUSEA AND/OR VOMITING, ML 02/21/17 Morphine Sulfate* (Morphine* Liq) 10 Mg/0.5 Ml Disp.syrin, 2 MG IV* Q4H WHILE AWAKE Y for PAIN, ML 02/21/17 Magnesium Hydroxide* (Milk Of Magnesia*) 400 Mg/5 Ml Oral.susp, 30 ML PO DAILY, ML 02/21/17 Lorazepam* (Ativan* Intensol) 2 Mg/Ml Soln, 1 MG PO Q8 Y for ANXIETY, #1 BOTTLE 02/21/17 Loperamide Hcl* (Loperamide Hcl*) 2 Mg Cap, 2 MG GTB Q6 Y for DIARRHEA, CAP 02/21/17 Levetiracetam* (Levetiracetam*) 500 Mg/5 Ml Solution, 1000 MG IVPB BID, ML 1000MG IN SALINE 100ML IN FUSE OVER 15MIN 400MLS/HR 02/21/17 Clonazepam* (Clonazepam*) 0.5 Mg Tablet, 0.5 MG GTB Q8H Y for ANXIETY, TAB 02/21/17 Lansoprazole* (Lansoprazole*) 30 Mg Capsule.dr, 30 MG GTB DAILY, CAP 02/21/17 Zinc Sulfate* (Zinc Sulfate*) 220 Mg Cap, 220 MG PO DAILY, CAP 02/21/17 Phenytoin* (Phenytoin*) 125 Mg/5 Ml Oral.susp, 100 MG PO TID for 30 Days, BOTTLE 01/04/17 Topiramate* (Trokendi XR*) 200 Mg Cap.er.24h, 200 MG PO BID, CAP 01/04/17 Follow-up Plan KENAN medeiros as noted above Primary Care Provider Louie Umaña [facility] MD Kaur Time spent on discharge: > 30 minutes Pending Labs Laboratory Tests Test 03/21/17 17:25 03/22/17 00:22 03/22/17 06:03 03/22/17 08:26 Bedside Glucose 101mg/dL (70-220) 110mg/dL (70-220) 106mg/dL (70-220) Sodium Level 144mmol/L (135-144) Potassium Level 3.5mmol/L (3.5-5.1) Chloride Level 118mmol/L (97-110) Carbon Dioxide Level 19mmol/L (21-31) Anion Gap 11 (8-16) Blood Urea Nitrogen 17mg/dl (7-20) Creatinine 0.49mg/dl (0.44-1.00) Glucose Level 99mg/dl (70-220) Calcium Level 9.3mg/dl (8.4-10.2) Test 03/22/17 08:27 03/22/17 12:18 White Blood Count 14.310^3/ul (4.8-10.8) Red Blood Count 3.4210^6/ul (4.20-5.40) Hemoglobin 9.9g/dl (12.0-16.0) Hematocrit 31.9% (37.0-47.0) Mean Corpuscular Volume 93.3fl (82.0-101.0) Mean Corpuscular Hemoglobin 28.9pg (29.0-33.0) Mean Corpuscular Hemoglobin Concent 31.0g/dl (32.0-37.0) Red Cell Distribution Width 15.9% (11.5-14.5) Platelet Count 98032^3/UL (140-415) Mean Platelet Volume 8.9fl (7.4-10.4) Neutrophils % 72.4% (39.0-77.0) Lymphocytes % 19.9% (15.0-51.0) Monocytes % 5.5% (0.0-11.0) Eosinophils % 0.8% (0.0-7.0) Basophils % 0.5% (0.0-2.0) Nucleated Red Blood Cells % 0.0/100WBC (0.0-0.0) Neutrophils # 10.410^3/ul (1.6-7.5) Lymphocytes # 2.810^3/ul (0.8-2.9) Monocytes # 0.810^3/ul (0.3-0.9) Eosinophils # 0.110^3/ul (0.0-0.5) Basophils # 0.110^3/ul (0.0-0.1) Nucleated Red Blood Cells # 0.010^3/ul (0.0-0.0) Magnesium Level 2.0mg/dl (1.7-2.5) Bedside Glucose 106mg/dL (70-220) OMAIRA OLIVERA MD Mar 22, 2017 15:53 OMAIRA OLIVERA MD Mar 22, 2017 15:53
--- NOTE | 2017-03-22 16:17 | CONS ---
DATE OF ADMISSION: 03/11/2017 DATE OF CONSULTATION: 03/22/2017 HISTORY OF PRESENT ILLNESS: This 61-year-old patient has been admitted to this floor for multi-system problem with pancreatic pseudocyst suspected. She underwent CT scan and CT drainage of the abscess. She is waiting for the MRI MRCP which has not been done. The patient in the recent past had ERCP and pancreatic or biliary stenting by Dr. Green. The patient is unable to give much history except her pain in less and she is post tracheostomy, on a T-tube, alert. Her past history and recent history and all consults and lab data was reviewed. The patient is on multiple medications. These were reviewed. PHYSICAL EXAMINATION: GENERAL APPEARANCE: The patient is alert, has a tracheostomy tube. HEART AND LUNGS: Clear. ABDOMEN: There is a G-tube and on the left flank area, there is a drainage tube placed by CT guidance and it is draining whitish liquidy material which looks like pus or pancreatic juice, cannot tell the difference. EXTREMITIES: With wasting noted. IMPRESSION AND PLAN: Pancreatitis with pseudocyst, drainage now, wait for the MRI MRCP which has been planned today. I will review that and decide further management. Meanwhile, continue antibiotics, continue the drainage, and later, once patient stabilizes, stents will be removed by Dr. Green. Dictated By: Garrett Trevino MD /[email or web address] /Document#: [id number] CC: Chaitanya Green MD; Deepa Weiss MD;*[facility]*
[2017-03-22] MEDS: EPOETIN 10000 UNITS/1 ML INJ (ESRD) SC SCH (17:30)
[2017-03-22] MEDS ORDERED: VANCOMYCIN HCL 250 MG/5ML POSYG PO SCH (18:00)
[2017-03-22] MEDS ORDERED: metroNIDAZOLE 500 MG TAB PO SCH (21:00)
== END 2017-03-22 18:35 | DRG 439 ==
LOC: MS4 02:03
PROVIDERS: ADMIT Internal Medicine; ATTEND Internal Medicine
PROC: 0W9G30Z Drainage of Peritoneal Cavity with Drainage Device, Percutaneous Approach (ICD-10-PCS; principal; 2017-03-14)
PROC: 0W9G30Z Drainage of Peritoneal Cavity with Drainage Device, Percutaneous Approach (ICD-10-PCS; 2017-03-14)
DX: K85.10 Biliary acute pancreatitis without necrosis or infection (principal); K86.3 Pseudocyst of pancreas; J96.10 Chronic respiratory failure, unspecified whether with hypoxia or hypercapnia; A04.7 Enterocolitis due to Clostridium difficile; Z93.0 Tracheostomy status; R18.8 Other ascites; I48.0 Paroxysmal atrial fibrillation; G40.909 Epilepsy, unspecified, not intractable, without status epilepticus; R13.10 Dysphagia, unspecified; Z93.1 Gastrostomy status; Z78.1 Physical restraint status; H70.92 Unspecified mastoiditis, left ear; D47.3 Essential (hemorrhagic) thrombocythemia; R74.0 Nonspecific elevation of levels of transaminase and lactic acid dehydrogenase [LDH]; R33.9 Retention of urine, unspecified; R41.0 Disorientation, unspecified; R45.1 Restlessness and agitation; Z87.440 Personal history of urinary (tract) infections; Z87.01 Personal history of pneumonia (recurrent); E87.6 Hypokalemia; D64.9 Anemia, unspecified
CPT/HCPCS: 74000; 75989; 77012; 80048; 80053; 80061; 80076; 82962; 83036; 83605; 83690; 83735; 84100; 84443; 85025; 85610; 85730; 87070; 87075; 87081; 92526; 92610; 97110; 97161; 97166; 97530; A4310; C9113; J0886; J1815; J1953; J1956; J2060; J2543; J3010; J3475; J3480; J7030; J7040; Q4081

== ENCOUNTER 2017-05-24 15:39 | Inpatient (IN) | END 2017-07-07 11:30 | disposition EXP | DRG 405 ==